=== PATIENT | female | born 1990 | race Caucasian/White ===

== ENCOUNTER 2021-04-09 15:00 | Outpatient (REF) | payer MEDICARE, MEDICAID, SELFPAY ==
[2021-04-09 15:18] LABS: MANUAL DIFF FLAG NO
[2021-04-09 15:31] LABS: Basophils Absolute Auto 0.1 X10*3/uL (0.0-0.2); Basophils Percent Auto 0.5 % (0-2); Eosinophils Absolute Auto 0.1 X10*3/uL (0.0-0.4); Eosinophils Percent Auto 0.9 % (0-4); Hematocrit 41.6 % (37-47); Hemoglobin 13.7 g/dl (12.0-16.0); Imm Gran Abs Auto 0.01 X10*3/uL (0.00-0.03); Imm Gran Pct Auto 0.1 % (0.0-0.4); Lymphocytes Absolute Auto 3.7 X10*3/uL (1.2-4.9); Mean Corpuscular HGB Conc 32.9 g/dl (31.0-35.0); Mean Corpuscular Hemoglobin 31.6 pg (27.0-33.0); Mean Corpuscular Volume 96.1 fL (80-98); Mean Platelet Volume 9.7 fL (9.4-12.3); Monocytes Absolute Auto 0.5 X10*3/uL (0.1-1.2); Monocytes Percent Auto 5.2 % (2-11); Neutrophils Absolute Auto 5.4 X10*3/uL (2.0-8.3); Neutrophils Percent Auto 55.3 % (45-73); Platelet Count 278 X10*3/uL (160-400); Red Blood Count 4.33 X10*6/uL (4.20-5.50); Red Cell Distribution Width 13.6 % (11.0-16.0); White Blood Count 9.8 X10*3/uL (4.8-10.8)
== END 2021-04-09 15:01 | disposition home or self-care (01) ==
LOC: HO.LAB 15:00
PROVIDERS: Visit Provider Psychiatry & Neurology Neurology
DX: G43.009 Migraine without aura, not intractable, without status migrainosus (principal)
CPT/HCPCS: 36415; 85025

== ENCOUNTER 2021-05-03 18:30 | Emergency (ER) | payer MEDICARE, MEDICAID, SELFPAY ==
[2021-05-03 18:43] VITALS: BP 119/83; PULSE 98; RESP 16; TEMP 36.6; O2SAT 98; BMI 28.6
--- NOTE | 2021-05-03 19:06 | ED_ITS ---
HPI - General Adult General Chief complaint: Abdominal Pain Stated complaint: Vomiting Time Seen by Provider: 05/03/21 19:04 Source: patient Limitations: no limitations History of Present Illness HPI narrative: This is a 22-year-old female with a history of gastric sleeve placement in August of 2019, who subsequently had abdominal pain and vomiting and was admitted to [facility]. Workup there did not reveal any complication of the gastric sleeve but there was a possibility raised of autoimmune hepatitis. The patient the last 3 weeks has had pain in her upper abdomen number the last 2 weeks has had vomiting, has not been able to hold down much fluids, hardly any food except for mesh potatoes. The patient has seen her surgeon and she had an upper GI series done a week ago which was normal, per the patient. She is scheduled to have upper endoscopy done in 9 days. Patient reports pain has started her left upper abdomen, and she now feels it in her right upper abdomen as well as in the mid upper abdomen. She describes it as a burning feeling. She has had diarrhea. She has been urinating less but denies any dysuria. She denies lower abdominal pain. She does not use marijuana. Related Data Previous Rx's Medication Instructions Recorded prochlorperazine 25 mg rectal 25 mg [place] Q12H PRN #12 ea 05/03/21 suppository (Compazine) Allergies Allergy/AdvReac Type Severity Reaction Status Date / Time No Known Allergies Allergy Verified 05/03/21 18:43 Review of Systems Review of Systems: Yes all other systems are reviewed and are negative Constitutional: Constitutional: Reports as per HPI and Denies fever(s) Eyes: Eyes: Reports as per HPI and Reports no additional eye complaints ENT: Reports system reviewed and no additional complaints, except as documented, Reports as per HPI, Denies nasal congestion, Denies nasal discharge and Denies sore throat Cardiovascular: Cardiovascular: Reports as per HPI, Denies chest pain and Denies dyspnea Respiratory: Respiratory: Reports as per HPI, Denies cough and Denies dyspnea Gastrointestinal: Gastrointestinal: Reports as per HPI, Reports abdominal pain, Reports diarrhea, Reports nausea and Reports vomiting Genitourinary: Genitourinary: Reports as per HPI, Denies hematuria, Denies urinary frequency and Denies dysuria Musculoskeletal: Musculoskeletal: Reports no additional musculoskeletal complaints and Denies numbness Integumentary/Breasts: Skin/Breast: Reports as per HPI and Denies rash Neurologic: Reports as per HPI, Denies focal weakness, Denies numbness and Denies Sensory deficit (Neuro) Psychiatric: Psychiatric: Reports no additional psychiatric complaints and Reports as per HPI Endocrine: Endocrine: Reports no additional endocrine complaints and Reports as per HPI Hematologic/Lymphatic: Hematologic/Lymphatic: Reports no additional hematologic/lymphatic complaints, Reports as per HPI and Reports other (No peripheral edema) [facility] Past Medical History Medical History (Updated 05/03/21 @ 20:07 by Salty Khan MD) Anxiety Asthma Depression Surgical History H/O gastric sleeve Social History Social History Alcohol intake: never Patient Tobacco Use Status: Never used Tobacco Use of substances other than those prescribed or required for medical reasons: No Advance Directives: No Advance Directives Information Provided: No Patient : No Physical Exam Vital Signs: Vital Signs: Last Vital Signs Temp 98.0 F 05/03/21 19:30 Pulse 94 05/03/21 19:30 Resp 17 05/03/21 19:30 BP 118/79 05/03/21 19:30 Pulse Ox 99 05/03/21 19:30 Body Mass Index 28.6 Const: Other: Patient not ill appearing General: cooperative, no acute distress and alert Orientation/consciousness: patient oriented x3 HENMT: Head: Yes normal to inspection Eyes: General: appearance normal, both eyes and all related structures Eyelids: Yes eyelids normal Conjunctivae: conjunctivae normal Pupils: Equal, round and reactive pupils present Neck: Neck: Yes normal visual inspection and Yes supple Chest: Chest palpation & inspection: normal inspection of the chest Resp: Effort & Inspection: normal respiratory effort Auscultation: clear to auscultation bilaterally Cardio: Rate: regular rate Rhythm: regular rhythm Heart sounds: S1 normal heart sound present, S2 normal heart sound present, no gallops, no murmurs and no rubs GI: Other: Mild tenderness epigastric, no guarding Palpation (GI): Soft to palpation, Tenderness to palpation present (GI) and Other GI palpation findings present (Non-distended) Auscultation: normal bowel sounds Skin: General skin exam: no rashes or lesions noted Neuro: General: patient oriented x3, no focal motor deficits and CN's II-XI intact bilaterally Cranial nerves: Yes Equal, round and reactive pupils present Cognition (Neuro): normal cognition Motor exam (neuro): 5/5 motor strength present throughout Sensory Exam: No Sensory deficit (Neuro) Extrem: General: Yes normal to inspection and Yes no pedal edema Psych: Appearance: grossly normal Affect: normal affect Medical Decision Making MDM Narrative Medical decision making narrative: Patient with reported abdominal pain and vomiting for few weeks. Patient does not have any impressive tenderness on exam, has been undergoing a workup through her surgeon and Gastroenterology, had a recent upper GI that was negative., is due for upper endoscopy in just over a week. CBC and chemistry panel unremarkable. Urinalysis negative for UTI, does show elevated specific gravity and some ketones consistent with mild dehydration. Patient was hydrated with normal saline 1 L IV here. Patient has been on Zofran as well as pantoprazole, and famotidine at home, as well as M [place] or equivalent twice a day. Will add Compazine suppositories to see if that helps improve the nausea vomiting. Patient is safe for outpatient follow- up. Lab Data Result diagrams: 05/03/21 19:25 05/03/21 19:25 Labs: Lab Results 05/03/21 05/03/21 05/03/21 Range/Units 19:25 19:25 19:25 WBC 10.5 (4.8-10.8) X10*3/uL RBC 4.41 (4.20-5.50) X10*6/uL Hgb 14.3 (12.0-16.0) g/dl Hct 42.9 (37-47) % MCV 97.3 (80-98) fL MCH 32.4 (27.0-33.0) pg MCHC 33.3 (31.0-35.0) g/dl RDW 13.0 (11.0-16.0) % Plt Count 249 (160-400) X10*3/uL MPV 9.7 (9.4-12.3) fL Immature Gran % (Auto) 0.3 (0.0-0.4) % Neut % (Auto) 54.1 (45-73) % Lymph % (Auto) 37.2 (20-40) % [place] % (Auto) 6.9 (2-11) % Eos % (Auto) 1.0 (0-4) % Baso % (Auto) 0.5 (0-2) % Lymph # (Auto) 3.9 (1.2-4.9) X10*3/uL [place] # (Auto) 0.7 (0.1-1.2) X10*3/uL Eos # (Auto) 0.1 (0.0-0.4) X10*3/uL Baso # (Auto) 0.1 (0.0-0.2) X10*3/uL Abs Immat Gran (auto) 0.03 (0.00-0.03) X10*3/uL Absolute Neuts (auto) 5.7 (2.0-8.3) X10*3/uL Absolute Nucleated RBC 0.000 (0.0-0.012) X10*3/uL Nucleated RBC % (auto) 0.0 (0.0-0.2) /100WBC Sodium 137 (135-145) mmol/L Potassium 3.8 (3.3-5.1) mmol/L Chloride 105 (96-108) mmol/L Carbon Dioxide 23 (22-29) mmol/L Anion Gap 13 (12-20) BUN 8 L (9-16) mg/dL Creatinine 0.77 (0.5-1.4) mg/dL Estim Creat Clear Calc 108.4 Estimated GFR > 60 Random Glucose 88 (60-115) mg/dL Calcium 9.3 (8.4-10.2) mg/dL Total Bilirubin 0.3 (0.0-1.0) mg/dL AST 16 (5-31) U/L ALT 24 (0-31) U/L Alkaline Phosphatase 106 (39-117) U/L Total Protein 7.5 (6.5-8.0) g/dL Albumin 4.3 (3.5-5.0) g/dL Lipase 30 (8-78) U/L Urine Color YELLOW Urine Appearance CLEAR Urine pH 6.0 (5.0-8.0) Ur Specific [place] >= 1.030 H (1.005-1.025) Urine Protein NEG (NEG-TRACE) MG/DL Urine Glucose (UA) NEG (NEG) MG/DL Urine Ketones 5 (NEG) MG/DL Urine Blood NEG (NEG) Urine Nitrite NEG (NEG) Ur Leukocyte Esterase NEG (NEG) Discharge Plan Discharge Clinical Impression: Vomiting, Chronic upper abdominal pain Patient Disposition: Home, Self-Care Instructions: Acute Nausea and Vomiting (ED) Additional Instructions: Follow-up to have your upper endoscopy done as scheduled. Follow-up with your surgeon and/or bakery helper. Use the Compazine suppository as prescribed in addition to the Zofran dissolvable. Drink clear liquids a little bit at a time. You can also use supplemental protein shakes. Try to eat bland foods as tolerated such as steam trace, mesh potatoes Prescriptions: New prochlorperazine [Compazine] 25 mg suppository 25 mg [place] Q12H PRN (Reason: nausea and vomiting) Qty: 12 RF: 1 Interventions: ED Discharge Assessment Last Done: 05/03/21 20:09 Discharge Date/Time: 05/03/21 20:16
[2021-05-03 19:30] VITALS: BP 118/79; PULSE 94; RESP 17; TEMP 36.7; O2SAT 99
[2021-05-03 19:33] LABS: MANUAL DIFF FLAG NO
[2021-05-03] MEDS: ondansetron HCL 4 MG/2 ML VIAL IVPUSH (19:33)
[2021-05-03] MEDS: 0.9 % Sodium Chloride 1,000 ML 999 ML IV (19:33)
[2021-05-03] MEDS: Famotidine/PF 20 MG/2 ML VIAL IVPUSH (19:33)
[2021-05-03 19:34] LABS: Basophils Absolute Auto 0.1 X10*3/uL (0.0-0.2); Basophils Percent Auto 0.5 % (0-2); Eosinophils Absolute Auto 0.1 X10*3/uL (0.0-0.4); Hematocrit 42.9 % (37-47); Hemoglobin 14.3 g/dl (12.0-16.0); Imm Gran Abs Auto 0.03 X10*3/uL (0.00-0.03); Imm Gran Pct Auto 0.3 % (0.0-0.4); Lymphocytes Absolute Auto 3.9 X10*3/uL (1.2-4.9); Lymphocytes Percent Auto 37.2 % (20-40); Mean Corpuscular HGB Conc 33.3 g/dl (31.0-35.0); Mean Corpuscular Hemoglobin 32.4 pg (27.0-33.0); Mean Corpuscular Volume 97.3 fL (80-98); Mean Platelet Volume 9.7 fL (9.4-12.3); Monocytes Absolute Auto 0.7 X10*3/uL (0.1-1.2); Monocytes Percent Auto 6.9 % (2-11); Neutrophils Absolute Auto 5.7 X10*3/uL (2.0-8.3); Neutrophils Percent Auto 54.1 % (45-73); Platelet Count 249 X10*3/uL (160-400); Red Blood Count 4.41 X10*6/uL (4.20-5.50); White Blood Count 10.5 X10*3/uL (4.8-10.8)
[2021-05-03 19:35] LABS: Appearance Urine CLEAR; Color Urine YELLOW; Glucose Urine UA NEG (NEG); Leukocyte Esterase Urine NEG (NEG); Nitrite Urine NEG (NEG); Specific Gravity - Urine >= 1.030 (1.005-1.025); Urine Blood NEG (NEG); Urine Ketones 5 MG/DL (NEG); Urine Protein NEG (NEG-TRACE)
--- NOTE | 2021-05-03 19:35 | PC.NURSE ---
iv inserted, labs drawn, urine obtained, vss, pt medicated per order, will continue to monitor
[2021-05-03 19:48] LABS: Alanine Aminotransferase 24 U/L (0-31); Albumin Level 4.3 g/dL (3.5-5.0); Alkaline Phosphatase 106 U/L (39-117); Anion Gap 13 (12-20); Aspartate Amino Transferase 16 U/L (5-31); Bilirubin Total 0.3 mg/dL (0.0-1.0); Blood Urea Nitrogen 8 mg/dL (9-16); Calcium 9.3 mg/dL (8.4-10.2); Carbon Dioxide 23 mmol/L (22-29); Chloride 105 mmol/L (96-108); Creatinine Clr Calc Pharmacy 108.4; Estimated Glomerular Filt Rate > 60; Glucose Random 88 mg/dL (60-115); Lipase 30 U/L (8-78); Potassium 3.8 mmol/L (3.3-5.1); Sodium 137 mmol/L (135-145); Total Protein 7.5 g/dL (6.5-8.0)
== END 2021-05-03 20:16 | disposition home or self-care (01) ==
PROVIDERS: Emergency Provider Emergency Medicine; PCP Internal Medicine
DX: R10.10 Upper abdominal pain, unspecified (principal); R11.2 Nausea with vomiting, unspecified; Z98.84 Bariatric surgery status; Z79.899 Other long term (current) drug therapy
CPT/HCPCS: 36415; 80053; 81003; 83690; 85025; 96361; 96374; 96375; 99284; J2405

== ENCOUNTER 2021-05-13 02:08 | Emergency (ER) | payer MEDICARE, MEDICAID, SELFPAY ==
[2021-05-13 02:09] VITALS: BP 151/89; PULSE 110; RESP 18; TEMP 36.7; O2SAT 99; BMI 28.8
[2021-05-13 03:15] LABS: MANUAL DIFF FLAG NO
[2021-05-13 03:16] LABS: Basophils Percent Auto 0.5 % (0-2); Eosinophils Absolute Auto 0.1 X10*3/uL (0.0-0.4); Eosinophils Percent Auto 1.1 % (0-4); Hematocrit 39.4 % (37.0-47.0); Hemoglobin 13.4 g/dl (12.0-16.0); Imm Gran Abs Auto 0.01 X10*3/uL (0.00-0.03); Imm Gran Pct Auto 0.1 % (0.0-0.4); Lymphocytes Absolute Auto 3.5 X10*3/uL (1.2-4.9); Lymphocytes Percent Auto 46.3 % (20-40); Mean Corpuscular Hemoglobin 32.6 pg (27.0-33.0); Mean Corpuscular Volume 95.9 fL (80.0-98.0); Mean Platelet Volume 9.8 fL (9.4-12.3); Monocytes Absolute Auto 0.5 X10*3/uL (0.1-1.2); Monocytes Percent Auto 6.9 % (2-11); Neutrophils Absolute Auto 3.41 x10*3/uL (2.0-8.3); Neutrophils Percent Auto 45.1 % (45-73); Platelet Count 203 X10*3/uL (160-400); Red Blood Count 4.11 X10*6/uL (4.20-5.50); Red Cell Distribution Width 12.7 % (11.0-16.0); White Blood Count 7.6 X10*3/uL (4.8-10.8)
[2021-05-13 03:19] LABS: UPreg QC Valid YES; Urine Pregnancy NEGATIVE (NEGATIVE)
--- NOTE | 2021-05-13 03:26 | PC.NURSE ---
Per Andrea Cohen RN who was at bedside to line/lab/medicate, pt requesting pt advocate d/t her frustration with frequency of her visits. Ning Hercules RN
[2021-05-13] MEDS: 0.9 % Sodium Chloride 2,000 ML 999 ML IV (03:27)
[2021-05-13 03:29] LABS: Appearance Urine CLOUDY; Color Urine YELLOW; Glucose Urine UA NEG (NEG); Leukocyte Esterase Urine NEG (NEG); Nitrite Urine NEG (NEG); RBC Urine 0-2 /HPF (0); UACC Culture Trigger NO; Urine Blood 2+ (NEG); Urine Ketones NEG (NEG); Urine Protein NEG (NEG-TRACE); WBC Urine 0 /HPF (0-4)
[2021-05-13 03:30] LABS: Amorphous Sediment Urine 4+ /LPF; Mucus Urine 2+ /LPF; Squamous Epithelial Cell Urine TRACE /LPF
[2021-05-13 03:36] LABS: Alanine Aminotransferase 13 U/L (0-31); Alkaline Phosphatase 81 U/L (39-117); Anion Gap 12 (12-20); Aspartate Amino Transferase 11 U/L (5-31); Bilirubin Total 0.5 mg/dL (0.0-1.0); Blood Urea Nitrogen 10 mg/dL (9-16); Carbon Dioxide 22 mmol/L (22-29); Chloride 110 mmol/L (96-108); Creatinine Clr Calc Pharmacy 107.3; Estimated Glomerular Filt Rate > 60; Glucose Random 94 mg/dL (60-115); Lipase 34 U/L (8-78); Potassium 3.6 mmol/L (3.3-5.1); Sodium 140 mmol/L (135-145); Total Protein 6.7 g/dL (6.5-8.0)
--- NOTE | 2021-05-13 04:14 | PC.NURSE ---
Andrea RN made this RN aware that pt is requesting to leave AMA, reports Dr Guzmán is aware. This RN performs closed loop communication and discusses pt's request to leave AMA with Dr Guzmán who states she will go to pt's bedside to review AMA paperwork at her soonest availability. This RN to bedside, pt aaox4, resting on stretcher in NAD, breathing with ease on RA with equal chest rise and fall bilaterally, speaking in complete, clear sentences. This RN asks pt what services she would like to be provided at this time to encourage pt to receive w/u and to avoid leaving AMA. Pt states I'm really frustrated with what's going on at this point because my food intolerance is inconsistent as sometimes I can eat mashed potatoes and other times I can't. I just want help with this but there's nothing else that can be done here. My ride is on his way and I have zofran at home I'll take for the nausea. This RN explains to pt that Dr Guzmán has ordered an EKG to ensure it is safe to medicate with zofran, and if so, pt can be provided with IV antiemetic. Pt expresses understanding, declines EKG and VS at this time stating I just need to pee and I want to go to the bathroom but I didn't know how to disconnect this [IV fluids]. Pt asks Do you know how long it will be until the doctor is able to come and go over that paperwork with me because I just want to go home? This RN explains to pt that Dr uGzmán will come to bedside at her soonest availability. Pt expresses understanding. This RN removes pt's PIV under suspicion that pt may elope from dept prior to AMA paperwork as pt voices, once again, that her ride is on his way. Pt's IVF discontinued, PIV removed, and pt ambulatory with steady, independent gait to bathroom across the wu from pt's room.
--- NOTE | 2021-05-13 04:33 | ED.ABDPAIN ---
HPI - Abdominal Pain General Chief Complaint: Abdominal Pain Stated Complaint: Abd pain N/V Time Seen by Provider: 05/13/21 02:15 Source: patient Mode of arrival: ambulatory History of Present Illness HPI narrative: 30-year-old female who is status post gastric sleeve in September 2019 presents with persistent nausea/vomiting/diarrhea as well as associated epigastric pain for 1 month. Patient states that she has been evaluated by her bariatric surgeons as well as Gastroenterology who completed an upper endoscopy yesterday. She has had no associated fever, chills but does endorse nonbloody diarrhea and otherwise denies urinary symptoms. Related Data Previous Rx's Medication Instructions Recorded prochlorperazine 25 mg rectal 25 mg [place] Q12H PRN #12 ea 05/03/21 suppository (Compazine) Allergies Allergy/AdvReac Type Severity Reaction Status Date / Time No Known Allergies Allergy Verified 05/03/21 18:43 Review of Systems Review of Systems Pertinent positives and negatives as stated in HPI and 10 point review of symptoms is otherwise negative. Physical Exam Vital Signs: Vital Signs: Last Vital Signs Temp 98.1 F 05/13/21 02:09 Pulse 104 H 05/13/21 04:40 Resp 16 05/13/21 04:40 BP 114/85 05/13/21 04:40 Pulse Ox 99 05/13/21 04:40 Body Mass Index 28.8 VITAL SIGNS: Reviewed. GENERAL: Well developed, well nourished, in no acute distress. HEAD: Normocephalic/atraumatic EYES: PERRLA, EOMI OROPHARYNX: no oral lesions noted, posterior pharynx clear, moist mucosa NECK: Supple, no adenopathy LUNGS: Normal breath sounds. No adventitious sounds or accessory muscle use. SpO2<99> CARDIOVASCULAR: Regular rate and rhythm without noted murmurs ABDOMEN: Soft, mild tenderness to palpation of the epigastrium without rebound, non-distended with bowel sounds. SKIN: Inspection of the skin reveals no rashes NEUROLOGIC: Alert and oriented x 4. Course Course Course Narrative: 30-year-old female with history and clinical presentation consistent with chronic nausea, vomiting, diarrhea. Patient has received most of her care through the [facility] to include recent evaluation at [facility] emergency room and patient states that ?nothing was done except for lab work?. Review of all lab work is negative for any acute findings to better elucidate patient's presenting symptoms. She was provided with a GI cocktail and on re-evaluation reports improvement in her symptoms and she has tolerated oral intake. She was provided with additional sucralfate and will be discharged with a prescription for continued juice and instructed to follow-up with her mink farmer and bariatric surgeon. MDM - Abdominal Pain Lab Data Result diagrams: 05/13/21 03:08 05/13/21 03:08 Labs: Lab Results 05/13/21 05/13/21 05/13/21 Range/Units 03:08 03:08 03:10 WBC 7.6 (4.8-10.8) X10*3/uL RBC 4.11 L (4.20-5.50) X10*6/uL Hgb 13.4 (12.0-16.0) g/dl Hct 39.4 (37.0-47.0) % MCV 95.9 (80.0-98.0) fL MCH 32.6 (27.0-33.0) pg MCHC 34.0 (31.0-35.0) g/dl RDW 12.7 (11.0-16.0) % Plt Count 203 (160-400) X10*3/uL MPV 9.8 (9.4-12.3) fL Immature Gran % (Auto) 0.1 (0.0-0.4) % Neut % (Auto) 45.1 (45-73) % Lymph % (Auto) 46.3 H (20-40) % [place] % (Auto) 6.9 (2-11) % Eos % (Auto) 1.1 (0-4) % Baso % (Auto) 0.5 (0-2) % Lymph # (Auto) 3.5 (1.2-4.9) X10*3/uL [place] # (Auto) 0.5 (0.1-1.2) X10*3/uL Eos # (Auto) 0.1 (0.0-0.4) X10*3/uL Baso # (Auto) 0.0 (0.0-0.2) X10*3/uL Abs Immat Gran (auto) 0.01 (0.00-0.03) X10*3/uL Absolute Neuts (auto) 3.41 (2.0-8.3) x10*3/uL Absolute Nucleated RBC 0.000 (0.0-0.012) X10*3/uL Nucleated RBC % (auto) 0.0 (0.0-0.2) /100WBC Sodium 140 (135-145) mmol/L Potassium 3.6 (3.3-5.1) mmol/L Chloride 110 H (96-108) mmol/L Carbon Dioxide 22 (22-29) mmol/L Anion Gap 12 (12-20) BUN 10 (9-16) mg/dL Creatinine 0.78 (0.5-1.4) mg/dL Estim Creat Clear Calc 107.3 Estimated GFR > 60 Random Glucose 94 (60-115) mg/dL Calcium 9.0 (8.4-10.2) mg/dL Total Bilirubin 0.5 (0.0-1.0) mg/dL AST 11 (5-31) U/L ALT 13 (0-31) U/L Alkaline Phosphatase 81 D (39-117) U/L Total Protein 6.7 (6.5-8.0) g/dL Albumin 4.0 (3.5-5.0) g/dL Lipase 34 (8-78) U/L Urine Color YELLOW Urine Appearance CLOUDY Urine pH 7.0 (5.0-8.0) Ur Specific [place] 1.010 (1.005-1.025) Urine Protein NEG (NEG-TRACE) MG/DL Urine Glucose (UA) NEG (NEG) MG/DL Urine Ketones NEG (NEG) MG/DL Urine Blood 2+ H (NEG) Urine Nitrite NEG (NEG) Ur Leukocyte Esterase NEG (NEG) Urine RBC 0-2 (0) /HPF Urine WBC 0 (0-4) /HPF Ur Squamous Epith Cells TRACE /LPF Amorphous Sediment 4+ /LPF Urine Bacteria NONE /LPF Granular Casts 5-9 /LPF Urine Mucus 2+ /LPF Urine Test (NEGATIVE) 05/13/21 Range/Units 03:10 WBC (4.8-10.8) X10*3/uL RBC (4.20-5.50) X10*6/uL Hgb (12.0-16.0) g/dl Hct (37.0-47.0) % MCV (80.0-98.0) fL MCH (27.0-33.0) pg MCHC (31.0-35.0) g/dl RDW (11.0-16.0) % Plt Count (160-400) X10*3/uL MPV (9.4-12.3) fL Immature Gran % (Auto) (0.0-0.4) % Neut % (Auto) (45-73) % Lymph % (Auto) (20-40) % [place] % (Auto) (2-11) % Eos % (Auto) (0-4) % Baso % (Auto) (0-2) % Lymph # (Auto) (1.2-4.9) X10*3/uL [place] # (Auto) (0.1-1.2) X10*3/uL Eos # (Auto) (0.0-0.4) X10*3/uL Baso # (Auto) (0.0-0.2) X10*3/uL Abs Immat Gran (auto) (0.00-0.03) X10*3/uL Absolute Neuts (auto) (2.0-8.3) x10*3/uL Absolute Nucleated RBC (0.0-0.012) X10*3/uL Nucleated RBC % (auto) (0.0-0.2) /100WBC Sodium (135-145) mmol/L Potassium (3.3-5.1) mmol/L Chloride (96-108) mmol/L Carbon Dioxide (22-29) mmol/L Anion Gap (12-20) BUN (9-16) mg/dL Creatinine (0.5-1.4) mg/dL Estim Creat Clear Calc Estimated GFR Random Glucose (60-115) mg/dL Calcium (8.4-10.2) mg/dL Total Bilirubin (0.0-1.0) mg/dL AST (5-31) U/L ALT (0-31) U/L Alkaline Phosphatase (39-117) U/L Total Protein (6.5-8.0) g/dL Albumin (3.5-5.0) g/dL Lipase (8-78) U/L Urine Color Urine Appearance Urine pH (5.0-8.0) Ur Specific [place] (1.005-1.025) Urine Protein (NEG-TRACE) MG/DL Urine Glucose (UA) (NEG) MG/DL Urine Ketones (NEG) MG/DL Urine Blood (NEG) Urine Nitrite (NEG) Ur Leukocyte Esterase (NEG) Urine RBC (0) /HPF Urine WBC (0-4) /HPF Ur Squamous Epith Cells /LPF Amorphous Sediment /LPF Urine Bacteria /LPF Granular Casts /LPF Urine Mucus /LPF Urine Test NEGATIVE (NEGATIVE) Discharge Plan Discharge Clinical Impression: Epigastric abdominal pain, Nausea & vomiting Patient Disposition: Home, Self-Care Instructions: Acute Nausea and Vomiting (ED), Epigastric Pain (ED) Additional Instructions: 1. Resume all home medications as prescribed. 2. Do not take any non steroid all anti-inflammatory medications such as ibuprofen, Motrin, Aleve, etc. 3. Follow-up with your mink farmer and bariatric surgeon in the next 1-2 days for re-evaluation and further outpatient management. 4. You have been provided with medication that should help soothe your stomach Return to the ER for acute worsening of symptoms. Prescriptions: No Action prochlorperazine [Compazine] 25 mg suppository 25 mg [place] Q12H PRN (Reason: nausea and vomiting) Qty: 12 RF: 1 PMFSH Past Medical History Source: nursing notes reviewed Medical History Anxiety Asthma Depression Surgical History H/O gastric sleeve Social History Social History Alcohol intake: never Patient Tobacco Use Status: Never used Tobacco Advance Directives: No
[2021-05-13 04:40] VITALS: BP 114/85; PULSE 104; RESP 16; O2SAT 99
[2021-05-13] MEDS: Lidocaine HCl Viscous 2 % 15 ML SOLUTION 10 ML MUCOUS MEM (04:41)
[2021-05-13] MEDS: Magnesium Hydrox/Alum Hydrox 30 ML ORAL.SUSP PO (04:41)
--- NOTE | 2021-05-13 04:43 | PC.NURSE ---
Dr Guzmán requested this RN to bedside to offer pt a GI cocktail and plan for DC after GI cocktail. Pt agreeable, medicated per orders. Pt tolerating meds at this time.
--- NOTE | 2021-05-13 05:13 | PC.NURSE ---
Pt tolerating PO meds without vomiting, reports pain is the same as prior but nausea has improved. Dr Guzmán made aware.
[2021-05-13] MEDS: Sucralfate Oral Suspension 1 GM/10 ML ORAL.SUSP PO (05:21)
== END 2021-05-13 05:32 | disposition home or self-care (01) ==
PROVIDERS: Emergency Provider Student in an Organized Health Care Education/Training Program
DX: R10.13 Epigastric pain (principal); R11.2 Nausea with vomiting, unspecified; Z98.84 Bariatric surgery status; Z79.899 Other long term (current) drug therapy
CPT/HCPCS: 36415; 80053; 81001; 81025; 83690; 85025; 96360; 96361; 99284

== ENCOUNTER 2021-10-31 07:31 | Emergency (ER) | payer MEDICARE, MEDICAID, SELFPAY ==
--- NOTE | ~2021-10-31 | US_ITS ---
EXAMINATION: US PELVIS CLINICAL INFORMATION: Adnexal pain, rule out torsion. COMPARISON: CT scan of the abdomen and pelvis performed today as well as on 10/28/2018. TECHNIQUE: Ultrasound of the pelvis is performed using both transabdominal and transvaginal transducers along with Doppler. Transvaginal imaging is performed due to inadequate visualization transabdominally. FINDINGS: Uterus: Anteverted/anteflexed measuring 7.7 x 6.5 x 5.9 cm. An intramural/subserosal fibroid in the right anterior fundus/body measures approximately 5.3 x 4.6 x 4.8 cm. The endometrial stripe demonstrates homogeneous echotexture and measures up to 1.1 cm in the fundus without focal abnormality. The cervix is closed without abnormality. Right ovary: 2.4 x 1.8 x 2.2 cm with a volume of 5 mL. Doppler showed no abnormal vascular flow. Left ovary: Not confidently identified. No overt adnexal abnormality. Urinary bladder: Mildly distended without focal abnormality. US/US pelvic ovarian doppler IMPRESSION: 1. Fibroid uterus as detailed above correlating with CT findings. 2. No significant right ovarian abnormality. The left ovary was not visualized sonographically, but showed no significant abnormality on the CT scan from today. No adnexal abnormality.
--- NOTE | ~2021-10-31 | US_ITS ---
EXAMINATION: US PELVIS CLINICAL INFORMATION: Adnexal pain, rule out torsion. COMPARISON: CT scan of the abdomen and pelvis performed today as well as on 10/28/2018. TECHNIQUE: Ultrasound of the pelvis is performed using both transabdominal and transvaginal transducers along with Doppler. Transvaginal imaging is performed due to inadequate visualization transabdominally. FINDINGS: Uterus: Anteverted/anteflexed measuring 7.7 x 6.5 x 5.9 cm. An intramural/subserosal fibroid in the right anterior fundus/body measures approximately 5.3 x 4.6 x 4.8 cm. The endometrial stripe demonstrates homogeneous echotexture and measures up to 1.1 cm in the fundus without focal abnormality. The cervix is closed without abnormality. Right ovary: 2.4 x 1.8 x 2.2 cm with a volume of 5 mL. Doppler showed no abnormal vascular flow. Left ovary: Not confidently identified. No overt adnexal abnormality. Urinary bladder: Mildly distended without focal abnormality. US/US pelvic and transvaginal IMPRESSION: 1. Fibroid uterus as detailed above correlating with CT findings. 2. No significant right ovarian abnormality. The left ovary was not visualized sonographically, but showed no significant abnormality on the CT scan from today. No adnexal abnormality.
--- NOTE | ~2021-10-31 | CT_ITS ---
EXAMINATION: CT ABDOMEN AND PELVIS WITH CONTRAST CLINICAL INFORMATION: Right lower quadrant and CVA pain. COMPARISON: None TECHNIQUE: Multidetector volumetric images were obtained from the superior aspect of the liver through the pubic symphysis following administration 85 mL of Omnipaque 350 intravenous contrast. Sagittal and coronal reformatted images were obtained on the technologist's workstation. Oral contrast: No This CT examination was performed using dose optimization techniques as appropriate, variously including the following: *Automated exposure control *Adjustment of mA and/or kV according to patient size (this includes techniques or standardized protocols for targeted exams where dose is matched to indication/reason for exam; i.e. extremities or head) *Use of iterative reconstruction technique DLP: 551 mGy-cm FINDINGS: LUNG BASES: The visualized lung bases are unremarkable. LIVER, GALLBLADDER, AND BILIARY TREE: No hepatic abnormality. Status post cholecystectomy. PANCREAS: Unremarkable. SPLEEN: Unremarkable. ADRENAL GLANDS: Unremarkable. KIDNEYS AND URETERS: The kidneys are normal in size, shape, and attenuation. No hydronephrosis, hydroureter, or calculi seen. No perinephric stranding. BLADDER: Unremarkable. GASTROINTESTINAL TRACT: Gastric posterior surgical changes without abnormality. The small bowel and appendix are unremarkable. The colon and rectum are unremarkable. ABDOMINAL WALL: No significant hernia is appreciated. LYMPH NODES: No lymphadenopathy. VASCULAR: Unremarkable. PELVIC VISCERA: Anteverted/anteflexed uterus with intramural fibroid in the anterior fundus/body measuring approximately 5.6 x 5.2 x 4.4 cm (image 74, series 3; image 61, series 7). No adnexal abnormality. OSSEOUS STRUCTURES: Unremarkable. CT/CT abdomen pelvis w con IMPRESSION: 1. No acute intra-abdominal/pelvic abnormality. 2. Uterine fibroid as detailed above.
[2021-10-31 07:40] VITALS: BP 125/71; PULSE 94; RESP 16; TEMP 36.2; O2SAT 100; BMI 28.1
[2021-10-31 07:53] LABS: MANUAL DIFF FLAG NO
[2021-10-31 07:55] LABS: Basophils Percent Auto 0.5 % (0-2); Eosinophils Absolute Auto 0.1 X10*3/uL (0.0-0.4); Eosinophils Percent Auto 0.6 % (0-4); Hematocrit 41.4 % (37.0-47.0); Hemoglobin 13.7 g/dl (12.0-16.0); Imm Gran Abs Auto 0.03 X10*3/uL (0.00-0.03); Imm Gran Pct Auto 0.3 % (0.0-0.4); Lymphocytes Absolute Auto 2.7 X10*3/uL (1.2-4.9); Lymphocytes Percent Auto 30.7 % (20-40); Mean Corpuscular HGB Conc 33.1 g/dl (31.0-35.0); Mean Corpuscular Hemoglobin 31.5 pg (27.0-33.0); Mean Corpuscular Volume 95.2 fL (80.0-98.0); Mean Platelet Volume 9.4 fL (9.4-12.3); Monocytes Absolute Auto 0.4 X10*3/uL (0.1-1.2); Monocytes Percent Auto 4.6 % (2-11); Neutrophils Absolute Auto 5.5 x10*3/uL (2.0-8.3); Neutrophils Percent Auto 63.3 % (45-73); Platelet Count 258 X10*3/uL (160-400); Red Blood Count 4.35 X10*6/uL (4.20-5.50); Red Cell Distribution Width 13.2 % (11.0-16.0); White Blood Count 8.7 X10*3/uL (4.8-10.8)
[2021-10-31 08:10] LABS: Alanine Aminotransferase 12 U/L (0-31); Albumin Level 4.2 g/dL (3.5-5.0); Alkaline Phosphatase 88 U/L (39-117); Anion Gap 9 (12-20); Aspartate Amino Transferase 11 U/L (5-31); Bilirubin Total 0.4 mg/dL (0.0-1.0); Blood Urea Nitrogen 8 mg/dL (9-16); Calcium 9.5 mg/dL (8.4-10.2); Carbon Dioxide 27 mmol/L (22-29); Chloride 109 mmol/L (96-108); Creatinine Clr Calc Pharmacy 102.6; Estimated Glomerular Filt Rate > 60; Glucose Random 78 mg/dL (60-115); Potassium 3.8 mmol/L (3.3-5.1); Sodium 141 mmol/L (135-145); Total Protein 7.3 g/dL (6.5-8.0)
--- NOTE | 2021-10-31 08:37 | ED.ABDPAIN ---
HPI - Abdominal Pain General Chief Complaint: Abdominal Pain Stated Complaint: Bladder discomfort/Vomiting Time Seen by Provider: 10/31/21 08:36 Source: patient Mode of arrival: ambulatory Limitations: no limitations History of Present Illness HPI narrative: 31-year-old female presents with abdominal pain in her right lower abdomen. Also reports the feeling of constant urgency to urinate, but reduced urine output. Symptoms have been ongoing for months, but worsening in the last few days. No dysuria, no fevers. Patient feels cramping in her right flank as well. Patient has had the symptoms for 1 month. The pain in her lower abdomen is worsening, is a 7/10. No vaginal bleeding, abnormal vaginal discharge Patient went to [facility] Emergency Room, but the wait was too long so she came here. She gets all her care at [facility]. States 4 days ago her primary ordered urine and labs which were both negative. Her stage setting painter apprentice is at [facility], and counseled her to go to the emergency room. Her last menstrual period was October 17, she is due November 11. Her OB tested her for STDs lastr week, and they were negative last week. She has no concerns for STDs. States that her abdominal pain gets worse prior to her period and is cyclical in nature correlating with her menses. She has heavy bleeding with her menses painful menses, her periods are debilitating due to fibroid. Patient is scheduled for uterine fibroid surgery 11/28/2021 at [facility]. She is status post gastric sleeve surgery that was done in [facility] by Dr. Saleem, in August 2019. Patient had 2 visits to our emergency room in the fall of 2020, but these were both for epigastric pain and today this pain feels different, is in her lower abdomen. Related Data Previous Rx's Medication Instructions Recorded prochlorperazine 25 mg rectal 25 mg SC Q12H PRN #12 ea 05/03/21 suppository (Compazine) sucralfate 100 mg/mL oral 10 ml PO BID #420 ml 05/13/21 suspension (Carafate) cephalexin 500 mg capsule 500 mg PO QID 5 Days #20 cap 10/31/21 oxycodone 5 mg tablet 5 mg PO Q6H PRN #20 tab 10/31/21 Allergies Allergy/AdvReac Type Severity Reaction Status Date / Time No Known Allergies Allergy Verified 05/03/21 18:43 Review of Systems Constitutional: Denies body ache(s), Denies chills, Denies fatigue, Denies fever(s), Denies headache(s), Denies malaise and Denies weakness Eyes: Denies diplopia Denies vertigo, Denies dizziness, Denies otalgia, Denies headache(s), Denies mouth pain, Denies post nasal drip, Denies sinus pain and Denies sore throat Cardiovascular: Denies chest pain, Denies syncope, Denies leg edema, Denies lightheadedness, Denies Loss of Consciousness, Denies palpitations and Denies dyspnea Respiratory: Denies chest congestion, Denies cough and Denies dyspnea Gastrointestinal: Reports abdominal pain, Denies hematochezia, Denies constipation, Denies diarrhea, Reports nausea and Denies vomiting Genitourinary: Reports urinary frequency, Reports difficulty voiding, Reports dysmenorrhea, Denies dysuria, Reports pelvic pain, Reports flank pain, Denies urinary incontinence, Reports urinary hesitancy, Denies urinary urgency, Denies vaginal discharge and Denies vaginal odor Musculoskeletal: Reports no additional musculoskeletal complaints Denies confusion, Denies vertigo, Denies dizziness, Denies syncope, Denies headache(s) and Denies weakness Psychiatric: Denies anxiety, Denies confusion and Denies depression Endocrine: Denies fatigue and Denies palpitations PMFSH Past Medical History Medical History Anxiety Asthma Depression Surgical History H/O gastric sleeve Social History Social History Alcohol intake: never Patient Tobacco Use Status: Never used Tobacco Advance Directives: No Advance Directives Information Provided: No Patient : No Physical Exam ED Vital Signs: Vital Signs - 24 hr 10/31/21 07:40 10/31/21 09:38 Temperature 97.2 F Pulse Rate 94 Respiratory Rate 16 18 Blood Pressure 125/71 Pulse Oximetry 100 BMI result Body Mass Index 28.1 Const General: comfortable, alert and awake; No confusion Nutritional Appearance: obese Orientation/consciousness: patient oriented x3 and No confusion Limitations: no limitations HENMT Head: Yes normal to inspection, Yes normocephalic and Yes atraumatic Ears: hearing grossly normal bilaterally General nose exam: Normal external nose present Face and sinus: Yes normal facial exam Mouth: Normal oral and palatal mucosa present Throat: Yes posterior oropharynx normal Eyes Pupils: Equal, round and reactive pupils present EOM: EOMs intact bilaterally Neck Neck: Yes normal visual inspection, Yes full ROM, Yes no lymphadenopathy, Yes no meningeal signs, Yes trachea midline and Yes supple Resp Effort & Inspection: normal respiratory effort and able to speak in complete sentences Auscultation: clear to auscultation bilaterally, no crackles, no rales, no rhonchi and no wheezes Cardio Rate: regular rate Rhythm: regular rhythm Heart sounds: S1 normal heart sound present and S2 normal heart sound present GI Inspection: Yes obesity and Yes striae Palpation (GI): Soft to palpation, not firm, Tenderness to palpation present (GI) in the RLQ, Guarding due to palpation present (GI) in the RLQ and not rigid Percussion: Yes normal to percussion Auscultation: normal bowel sounds General: Yes CVA tenderness on the right External Female Exam: normal external appearance Speculum Exam - Vagina: normal appearance of the vagina Speculum Exam - Cervix: normal appearance of the cervix, normal palpation and nontender Bimanual exam- vagina & uterus: normal palpation and No Cervical tenderness present Bimanual Exam- Adnexa, other: no masses and tender on the right Back/Spine/Pelvis Back: CVA tenderness Skin General skin exam: no rashes or lesions noted Neuro General: patient oriented x3, no meningeal signs and No confusion Cranial nerves: Yes Equal, round and reactive pupils present Extrem General: Yes normal to inspection, Yes full ROM and Yes capillary refill normal Psych Appearance: grossly normal Mental Status: mental status grossly normal Speech and movement: Normal speech and movement present Affect: Anxious affect present Course Course Course Narrative: 31-year-old female with a history of gastric sleeve surgery and uterine fibroids presents with lower abdominal pain that she has had for months that is worsening today. Pain 7/10 today. On exam, patient has stable vitals, has right CVA tenderness, right lower quadrant tenderness and guarding, and right adnexal pain on pelvic exam. vaginal discharge is normal. Deferred STDs swabs because she just had them done last week and has no concerns. Will get urine, labs, CT abdomen due to gastric bypass surgery and possible complications, ultrasound to investigate right adnexal tenderness. Gave morphine, Zofran, fluids. Reevaluation(s) Reevaluation #1: Patient has normal labs, has trace leukocyte esterase in her urine, is not . No adnexal abnormality, patient does have fibroid. Patient has no ovarian torsion, no necrotic fibroid, CT scan is normal. Pain was controlled with morphine, on re-examination, pain is returning. Will prescribe pain medication, will treat mild UTI, will have patient follow-up with her OBGYN. Return precautions given, all patient's questions were answered. US/US pelvic and transvaginal IMPRESSION: 1. Fibroid uterus as detailed above correlating with CT findings. 2. No significant right ovarian abnormality. The left ovary was not visualized sonographically, but showed no significant abnormality on the CT scan from today. No adnexal abnormality. CT/CT abdomen pelvis w con IMPRESSION: 1. No acute intra-abdominal/pelvic abnormality. 2. Uterine fibroid as detailed above. MDM - Abdominal Pain Lab Data Result diagrams: 10/31/21 07:49 10/31/21 07:49 Labs: Lab Results 10/31/21 10/31/21 10/31/21 Range/Units 07:49 07:49 08:30 WBC 8.7 (4.8-10.8) X10*3/uL RBC 4.35 (4.20-5.50) X10*6/uL Hgb 13.7 (12.0-16.0) g/dl Hct 41.4 (37.0-47.0) % MCV 95.2 (80.0-98.0) fL MCH 31.5 (27.0-33.0) pg MCHC 33.1 (31.0-35.0) g/dl RDW 13.2 (11.0-16.0) % Plt Count 258 D (160-400) X10*3/uL MPV 9.4 (9.4-12.3) fL Immature Gran % (Auto) 0.3 (0.0-0.4) % Neut % (Auto) 63.3 (45-73) % Lymph % (Auto) 30.7 (20-40) % [place] % (Auto) 4.6 (2-11) % Eos % (Auto) 0.6 (0-4) % Baso % (Auto) 0.5 (0-2) % Lymph # (Auto) 2.7 (1.2-4.9) X10*3/uL [place] # (Auto) 0.4 (0.1-1.2) X10*3/uL Eos # (Auto) 0.1 (0.0-0.4) X10*3/uL Baso # (Auto) 0.0 (0.0-0.2) X10*3/uL Abs Immat Gran (auto) 0.03 (0.00-0.03) X10*3/uL Absolute Neuts (auto) 5.5 (2.0-8.3) x10*3/uL Absolute Nucleated RBC 0.000 (0.0-0.012) X10*3/uL Nucleated RBC % (auto) 0.0 (0.0-0.2) /100WBC Sodium 141 (135-145) mmol/L Potassium 3.8 (3.3-5.1) mmol/L Chloride 109 H (96-108) mmol/L Carbon Dioxide 27 (22-29) mmol/L Anion Gap 9 L (12-20) BUN 8 L (9-16) mg/dL Creatinine 0.77 (0.5-1.4) mg/dL Estim Creat Clear Calc 102.6 Estimated GFR > 60 Random Glucose 78 (60-115) mg/dL Calcium 9.5 (8.4-10.2) mg/dL Total Bilirubin 0.4 (0.0-1.0) mg/dL AST 11 (5-31) U/L ALT 12 (0-31) U/L Alkaline Phosphatase 88 (39-117) U/L Total Protein 7.3 (6.5-8.0) g/dL Albumin 4.2 (3.5-5.0) g/dL Urine Color YELLOW Urine Appearance HAZY Urine pH 6.0 (5.0-8.0) Ur Specific [place] >= 1.030 H (1.005-1.025) Urine Protein NEG (NEG-TRACE) MG/DL Urine Glucose (UA) NEG (NEG) MG/DL Urine Ketones NEG (NEG) MG/DL Urine Blood NEG (NEG) Urine Nitrite NEG (NEG) Ur Leukocyte Esterase TRACE H (NEG) Urine RBC 1-4 (0) /HPF Urine WBC 1-4 (0-4) /HPF Ur Squamous Epith Cells 3+ /LPF Calcium Oxalate Crystal 2+ /LPF Urine Bacteria 1+ /LPF Urine Mucus 3+ /LPF Urine Test (NEGATIVE) 10/31/21 Range/Units 08:30 WBC (4.8-10.8) X10*3/uL RBC (4.20-5.50) X10*6/uL Hgb (12.0-16.0) g/dl Hct (37.0-47.0) % MCV (80.0-98.0) fL MCH (27.0-33.0) pg MCHC (31.0-35.0) g/dl RDW (11.0-16.0) % Plt Count (160-400) X10*3/uL MPV (9.4-12.3) fL Immature Gran % (Auto) (0.0-0.4) % Neut % (Auto) (45-73) % Lymph % (Auto) (20-40) % [place] % (Auto) (2-11) % Eos % (Auto) (0-4) % Baso % (Auto) (0-2) % Lymph # (Auto) (1.2-4.9) X10*3/uL [place] # (Auto) (0.1-1.2) X10*3/uL Eos # (Auto) (0.0-0.4) X10*3/uL Baso # (Auto) (0.0-0.2) X10*3/uL Abs Immat Gran (auto) (0.00-0.03) X10*3/uL Absolute Neuts (auto) (2.0-8.3) x10*3/uL Absolute Nucleated RBC (0.0-0.012) X10*3/uL Nucleated RBC % (auto) (0.0-0.2) /100WBC Sodium (135-145) mmol/L Potassium (3.3-5.1) mmol/L Chloride (96-108) mmol/L Carbon Dioxide (22-29) mmol/L Anion Gap (12-20) BUN (9-16) mg/dL Creatinine (0.5-1.4) mg/dL Estim Creat Clear Calc Estimated GFR Random Glucose (60-115) mg/dL Calcium (8.4-10.2) mg/dL Total Bilirubin (0.0-1.0) mg/dL AST (5-31) U/L ALT (0-31) U/L Alkaline Phosphatase (39-117) U/L Total Protein (6.5-8.0) g/dL Albumin (3.5-5.0) g/dL Urine Color Urine Appearance Urine pH (5.0-8.0) Ur Specific [place] (1.005-1.025) Urine Protein (NEG-TRACE) MG/DL Urine Glucose (UA) (NEG) MG/DL Urine Ketones (NEG) MG/DL Urine Blood (NEG) Urine Nitrite (NEG) Ur Leukocyte Esterase (NEG) Urine RBC (0) /HPF Urine WBC (0-4) /HPF Ur Squamous Epith Cells /LPF Calcium Oxalate Crystal /LPF Urine Bacteria /LPF Urine Mucus /LPF Urine Test NEGATIVE (NEGATIVE) Discharge Plan Discharge Clinical Impression: Uterine fibroid, UTI (urinary tract infection), Pelvic pain Patient Disposition: Home, Self-Care Instructions: Urinary Tract Infection in Women (ED), Pelvic Pain in Women (ED) Additional Instructions: Please call your curriculum advisory teacher today and tell them that you are in the emergency room this morning for pelvic pain and you would like to see if you could move up your fibroid surgery. Please take oxycodone as needed, only take it every 6 hours. Please fill the prescription for antibiotics and take it as prescribed. If you have fevers, worsening pain, any other new or concerning symptoms, please return to the emergency room Prescriptions: New cephalexin 500 mg capsule 500 mg PO QID 5 Days Qty: 20 0RF oxycodone 5 mg tablet 5 mg PO Q6H PRN (Reason: pain) Qty: 20 0RF No Action prochlorperazine [Compazine] 25 mg suppository 25 mg SC Q12H PRN (Reason: nausea and vomiting) Qty: 12 1RF sucralfate [Carafate] 100 mg/mL suspension 10 ml PO BID Qty: 420 0RF
[2021-10-31 08:43] LABS: Appearance Urine HAZY; Color Urine YELLOW; Glucose Urine UA NEG (NEG); Leukocyte Esterase Urine TRACE (NEG); Nitrite Urine NEG (NEG); Specific Gravity - Urine >= 1.030 (1.005-1.025); Urine Blood NEG (NEG); Urine Ketones NEG (NEG); Urine Protein NEG (NEG-TRACE)
[2021-10-31 08:46] LABS: UPreg QC Valid YES; Urine Pregnancy NEGATIVE (NEGATIVE)
--- NOTE | 2021-10-31 09:31 | PC.NURSE ---
This RN entered patient's room to medicate them, however, patient was not in the room. Patient is away for imaging. Will medicate upon return to ED Bed 10.
[2021-10-31 09:38] VITALS: RESP 18
[2021-10-31] MEDS: Morphine Sulfate 4 MG/ML CARTRIDGE IVPUSH (09:38)
[2021-10-31] MEDS: ondansetron HCL 4 MG/2 ML VIAL IVPUSH (09:38)
[2021-10-31] MEDS: 0.9 % Sodium Chloride 1,000 ML 999 ML IV (09:38)
[2021-10-31] MEDS: iohexoL 350 MG/ML 100 ML INFUS..BTL 85 ML IV (09:43)
[2021-10-31 09:47] LABS: Mucus Urine 3+ /LPF; Squamous Epithelial Cell Urine 3+ /LPF
[2021-10-31 09:48] LABS: Bacteria Urine 1+ /LPF; Calcium Oxalate Crystals Urine 2+ /LPF
[2021-10-31] MEDS: iohexoL 350 MG/ML 100 ML INFUS..BTL IV (10:01)
== END 2021-10-31 12:37 | disposition home or self-care (01) ==
PROVIDERS: Emergency Provider Emergency Medicine Emergency Medical Services; PCP Internal Medicine
DX: D25.9 Leiomyoma of uterus, unspecified (principal); R30.0 Dysuria; N39.0 Urinary tract infection, site not specified; R10.2 Pelvic and perineal pain; Z98.84 Bariatric surgery status; Z79.899 Other long term (current) drug therapy
CPT/HCPCS: 36415; 74177; 76830; 76856; 80053; 81001; 81025; 85025; 93975; 96361; 96374; 96375; 99283; 99284; J2270; J2405; Q9967

== ENCOUNTER 2023-03-19 05:27 | Emergency (ER) | payer OTHER, SELFPAY ==
--- NOTE | ~2023-03-19 | XR_ITS ---
EXAMINATION: XR LUMBOSACRAL SPINE CLINICAL INFORMATION: Low back pain status post fall COMPARISON: None available. TECHNIQUE: Three views of the lumbosacral spine. FINDINGS: The vertebral bodies and posterior elements are normal. The disc spaces are preserved and the vertebral alignment is normal. The paraspinal soft tissues are normal. XR/XR lumbar spine 2-3V IMPRESSION: No acute fracture or traumatic malalignment.
--- NOTE | ~2023-03-19 | XR_ITS ---
EXAMINATION: XR ANKLE RIGHT XR FOOT RIGHT CLINICAL INFORMATION: Fall, pain COMPARISON: None TECHNIQUE: Right ankle, 3 views Right foot, 2 views FINDINGS: Right ankle: Alignment is normal. The talus is well-positioned within the mortise. The talocrural joint space and syndesmotic space are normal. No evidence of fracture, subluxation or ankle joint effusion. Right foot: Alignment is normal. Joint spaces are normal. No evidence of acute fracture, subluxation or overt soft tissue swelling. No radiopaque foreign body. XR/XR foot RT min 3V IMPRESSION: No acute osseous injury in the right ankle or foot. No fracture or malalignment.
--- NOTE | ~2023-03-19 | XR_ITS ---
EXAMINATION: XR RIBS, BILATERAL CLINICAL INFORMATION: Fall. Rib pain. COMPARISON: None available. TECHNIQUE: Frontal chest and 2 views of the bilateral ribs were obtained. FINDINGS: Lungs are clear. No consolidation, pneumothorax, or pleural effusion. The cardiomediastinal silhouette and pulmonary vasculature are normal. Osseous structures are unremarkable. Ribs are intact. No fractures are identified. XR/XR ribs BI 3V IMPRESSION: Unremarkable examination.
--- NOTE | ~2023-03-19 | XR_ITS ---
EXAMINATION: XR ANKLE RIGHT XR FOOT RIGHT CLINICAL INFORMATION: Fall, pain COMPARISON: None TECHNIQUE: Right ankle, 3 views Right foot, 2 views FINDINGS: Right ankle: Alignment is normal. The talus is well-positioned within the mortise. The talocrural joint space and syndesmotic space are normal. No evidence of fracture, subluxation or ankle joint effusion. Right foot: Alignment is normal. Joint spaces are normal. No evidence of acute fracture, subluxation or overt soft tissue swelling. No radiopaque foreign body. XR/XR ankle RT min 3V IMPRESSION: No acute osseous injury in the right ankle or foot. No fracture or malalignment.
[2023-03-19 05:29] VITALS: BP 122/84; PULSE 98; RESP 18; TEMP 36.6; O2SAT 97; BMI 40.7
[2023-03-19 06:02] VITALS: BP 114/80; PULSE 95; RESP 14; TEMP 36.9; O2SAT 97
--- NOTE | 2023-03-19 06:41 | ED.FALL ---
HPI - Fall General Chief Complaint: Fall Stated Complaint: Fell, low back and right foot pain Time Seen by Provider: 03/19/23 06:40 Source: patient Mode of arrival: ambulatory Limitations: no limitations History of Present Illness HPI Narrative: 32 yo female w/ PMHx significant for depression, anxiety, asthma, and ankylosing spondylitis presenting to the ED today with lower right-sided back pain radiating to the right rib & right foot pain s/p slip and fall. Reports falling onto her left side. Reports right rib pain increased with deep inspiration. States that she stubbed her toe during the fall causing her toe nail to come off. Able to ambulate without difficulty after fall. Patient has chronic back pain secondary to ankylosing spondylitis but states this pain is worse. Admits to taking Flexeril at 0200 this morning with minimal relief. Denies head strike, LOC, neck pain, dizziness, N/V, chest pain, SOB, numbness/tingling/weakness of the LE, bowel/bladder incontinence or retention. Not on AC. Related Data Previous Rx's Medication Instructions Recorded prochlorperazine 25 mg rectal 25 mg RI Q12H PRN nausea and 05/03/21 suppository (Compazine) vomiting #12 ea sucralfate 100 mg/mL oral 10 ml PO BID #420 mL 05/13/21 suspension (Carafate) cephalexin 500 mg capsule 500 mg PO QID 5 days #20 caps 10/31/21 oxycodone 5 mg tablet 5 mg PO Q6H PRN pain #20 tabs 10/31/21 ketorolac 10 mg tablet 10 mg PO Q8H 5 days #15 tabs 03/19/23 lidocaine 5 % topical patch 1 patch topical DAILY #15 ea 03/19/23 (Lidoderm) Allergies Allergy/AdvReac Type Severity Reaction Status Date / Time No Known Allergies Allergy Verified 05/03/21 18:43 Review of Systems Review of Systems: Constitutional : No Weight loss, No Fever, No Chills, No Fatigue, No Malaise ENT/Mouth : No sore throat, No Rhinorrhea Eyes: No Eye Pain, No Swelling, No Redness Cardiovascular : No Chest Pain, No SOB, No Dyspnea on Exertion, No Orthopnea, No Edema, No Palpitations Respiratory : No Cough, No Sputum, No Wheezing Gastrointestinal : No Nausea, No Vomiting, No Diarrhea, No Constipation, No abdominal Pain, No Hematochezia, No Melena Genitourinary : No Dysuria, No Urinary Frequency, No Hematuria, bowel or bladder incontince/ retention Musculoskeletal : + joint pain, + Myalgias, No Joint Swelling Skin : No Skin Lesions, No rash Neuro : No Weakness, No Numbness, No Dizziness, No Headache All other systems reviewed and are negative Yes all other systems are reviewed and are negative [facility] Past Medical History Attestation statement: The following information was validated with the patient. Source: old records reviewed and nursing notes reviewed Medical History Depression Anxiety Asthma Surgical History H/O gastric sleeve Social History Social History Alcohol intake: current Alcohol intake frequency: holidays/special occasions only Patient Tobacco Use Status: Never used Tobacco Smoked in Last 30 Days: No Use of substances other than those prescribed or required for medical reasons: No Advance Directives: No Advance Directives Information Provided: No Patient : No Physical Exam Vital Signs: Vital Signs: Last Vital Signs Temp 97.9 F 03/19/23 07:24 Pulse 85 03/19/23 07:24 Resp 15 03/19/23 07:24 BP 106/68 03/19/23 07:24 Pulse Ox 98 03/19/23 07:24 O2 Del Method Room Air 03/19/23 07:24 BMI result Body Mass Index 40.7 Vital signs stable Appearance: Alert.? Oriented X3.? No acute distress.?Lying comfortably in bed. Head: Normocephalic, atraumatic, no step-offs or deformities Eyes: Pupils equal, round and reactive to light.? ENT: Pharynx normal.? Neck: Normal inspection.? Neck supple.? Chest: Chest wall tender to palpation over the right anterior rib cage without ecchymosis, crepitis, or deformity. No paradoxical movement of the chest wall. CVS: RRR.?Pulses normal.? Respiratory: No respiratory distress.? Breath sounds normal. Abdomen: Soft, nontender to palpation, nondistended, +BS throughout. Skin: Skin warm and dry.? Normal skin color.? Normal skin turgor.? Extremities: No lower extremity edema.? No calf ttp. 5/5 strength to bilateral upper and lower extremities. No tenderness over the lateral or medial malleolus. No bruises, lacerations, or overlying deformity. Back: No ecchymosis or obvious deformity. Midline spinous tenderness over L4-L5 with right lumbar paraspinous tenderness. No C-spine tenderness, full ROM Neuro: Oriented X 3.? No motor deficit.? No sensory deficit. CN 2-12 intact. No saddle paresthesia. NV intact distally. Ambulating with steady gait. Course Reevaluation(s) Reevaluation #1: On re-evaluation patient reports pain improvement with Toradol. Rib and lumbar spine radiographs unremarkable > unlikely acute fracture, likely muscle sprain/ strain. Awaiting xray foot/ankle. Time: 08:37 Reevaluation #2: CROW Patel to take over care of this patient Time: 08:50 Reevaluation #3: Xray foot/ ankle unremarkable > likely muscle sprain/ strain. Discussed results with patient and used shared decision making to determine disposition. Will send patient home with toradol and lidoderm patches. FREDRICK wrap applied to R ankle. Plan for out patient follow up with PCP and ortho. Patient agreeable to plan. Stable for discharge. Sakshi Irene PA-C am principle provider on this note. Time: 09:41 Medications Administered Discontinued Medications Generic Name Dose Route Start Last Admin Trade Name Freq PRN Reason Stop Dose Admin Ketorolac Tromethamine 30 mg 03/19/23 06:51 03/19/23 06:58 Ketorolac Tromethamine 15 Mg/Ml Vial IM 03/19/23 06:52 30 mg ONCE ONE Administration Procedures Orthopedic Splinting/Casting Injury #1: Side: right Lower Extremity Injury Location: ankle Lower Extremity Immobilizer: Fredrick wrap Medical Decision Making Medical Decision Making [facility] Narrative: 0707 32 yo female with low back pain, R rib pain, and R foot pain s/p slip and fall PE- Lungs CTA b/l. No ecchymosis, crepitis, or deformity noted to chest wall. No paradoxical movement of the chest wall. Midline lumbar spinous tenderness and paraspinous tenderness, 5/5 strength to UE and LE, sensation intact throughout, NV intact distally, ambulating with steady gait. Clinical concern for rib fracture vs ankle fracture vs ligamentous sprain/ strain vs lumbar sprain/ strain vs spinal fracture vs acute on chronic low back pain. Low suspicion for ICH, pneumothorax. Unlikely flail chest, cauda equina, epidural abscess or cord compression. Plan: imaging, pain control Differential Diagnosis Differential Diagnoses: The differential diagnosis associated with the presentation includes Clinical concern for rib fracture vs ankle fracture vs ligamentous sprain/ strain vs lumbar sprain/ strain vs spinal fracture vs acute on chronic low back pain. Low suspicion for ICH, pneumothorax. Unlikely flail chest, cauda equina, epidural abscess or cord compression. Admission/Observation Not indicated. Lab Data Not indicated. Independent Interpretation I performed an independent interpretation of an: Plain X-Ray Interpretation: Xray ribs without acute fracture, agree with radiologist's interpretation. Xray lumbar spine without acute fracture, agree with radiologist's interpretation. Xray right ankle/ foot without acute fracture or malalignment, agree with radiologist's interpretation. Radiology Impression Discussion of test interpretation with radiology: I have reviewed the radiologist's reading. Radiologist Impression: XR ribs BI 3V IMPRESSION: Unremarkable examination. XR lumbar spine 2-3V IMPRESSION: No acute fracture or traumatic malalignment. XR foot RT min 3V IMPRESSION: No acute osseous injury in the right ankle or foot. No fracture or malalignment. XR ankle RT min 3V IMPRESSION: No acute osseous injury in the right ankle or foot. No fracture or malalignment. External Record Review External record reviewed: Inpatient record Tests considered The following testing was considered but not selected: Considered ordering labs however patient's vital signs stable and unremarkable imaging. Prescription Management I considered prescription management with: Pain Medication Chronic Conditions Patient?s care impacted by: Other (ankylosing spondylitis ) Core Measures AMI core measures followed: Yes Measure exclusions: not indicated Discharge Plan Discharge Clinical Impression: Musculoskeletal pain, Rib pain on right side, Ankle sprain, Ankylosing spondylitis Patient Disposition: Home, Self-Care Instructions: Musculoskeletal Pain (ED) Additional Instructions: Your pain is likely musculoskeletal. Avoid bending, lifting, or twisting. Apply fredrick bandage to ankle for support as needed. Use ice several times per day for 20 minutes at a time for the next 48 hours and then change to heat. Toradol as an anti-inflammatory / pain medication. Take with food. Lidoderm patches are numbing patches. Apply to painful areas. In addition you may take Tylenol at home. Follow up with your primary care provider as needed. A referral to [facility] orthopedics has been provided to you. If your pain worsens, if you develop new numbness, tingling, weakness, loss of bowel or bladder function call 911 or return to the ER immediately for evaluation. Prescriptions: New ketorolac 10 mg tablet 10 mg PO Q8H 5 Days Qty: 15 0RF Rx Instructions: Tolerated in ED. lidocaine [Lidoderm] 5 % adhesive patch,medicated 1 patch topical DAILY Qty: 15 0RF Rx Instructions: leave on most painful area for up to 12 hrs No Action cephalexin 500 mg capsule 500 mg PO QID 5 Days Qty: 20 0RF oxycodone 5 mg tablet 5 mg PO Q6H PRN (Reason: pain) Qty: 20 0RF prochlorperazine [Compazine] 25 mg suppository 25 mg RI Q12H PRN (Reason: nausea and vomiting) Qty: 12 1RF sucralfate [Carafate] 100 mg/mL suspension 10 ml PO BID Qty: 420 0RF Referrals: Michael Mina MD [Physician] - Cassius Alvarez MD [Primary Care Provider] - Stand Alone Forms: Work/School Release Interventions: ED Discharge Assessment Last Done: 03/19/23 11:22 Discharge Date/Time: 03/19/23 11:23
[2023-03-19] MEDS: Ketorolac Tromethamine 15 MG/ML VIAL 30 MG IM (06:58)
--- NOTE | 2023-03-19 07:00 | PC.NURSE ---
Resumed care of patient this AM, reporting 8/10 pain, IM pain medication ordered and given. Pt went ot Xray, awaiting results at this time. All other needs met.
[2023-03-19 07:24] VITALS: BP 106/68; PULSE 85; RESP 15; TEMP 36.6; O2SAT 98
--- NOTE | 2023-03-19 09:20 | MHC.EDTECH ---
Called [facility] for imaging @ 9:15am
== END 2023-03-19 11:23 | disposition home or self-care (01) ==
PROVIDERS: Emergency Provider Emergency Medicine; PCP Internal Medicine
DX: S93.401A Sprain of unspecified ligament of right ankle, initial encounter (principal); W01.0XXA Fall on same level from slipping, tripping and stumbling without subsequent striking against object, initial encounter; M79.18 Myalgia, other site; R07.81 Pleurodynia; M45.6 Ankylosing spondylitis lumbar region; Z79.899 Other long term (current) drug therapy; Y93.9 Activity, unspecified; Y92.89 Other specified places as the place of occurrence of the external cause; Y99.9 Unspecified external cause status
CPT/HCPCS: 71110; 72100; 73610; 73630; 96372; 99284; J1885

== ENCOUNTER 2023-09-24 09:52 | Outpatient (AMB) | payer OTHER, SELFPAY ==
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
== END 2023-09-24 11:02 | disposition home or self-care (01) ==
LOC: HO.HOP 09:52
PROVIDERS: PCP Internal Medicine; Visit Provider Clinical Nurse Specialist Psychiatric/Mental Health
DX: F43.12 Post-traumatic stress disorder, chronic (principal); F50.9 Eating disorder, unspecified; F42.9 Obsessive-compulsive disorder, unspecified
CPT/HCPCS: 99214

== ENCOUNTER → 2023-09-24 09:52 | Outpatient (BNVA) | payer OTHER, SELFPAY | PROVIDERS: PCP Internal Medicine; Visit Provider Clinical Nurse Specialist Psychiatric/Mental Health | DX: F43.10 Post-traumatic stress disorder, unspecified (principal); F50.9 Eating disorder, unspecified; F42.9 Obsessive-compulsive disorder, unspecified; Z79.899 Other long term (current) drug therapy | CPT/HCPCS: 99212 ==

== ENCOUNTER 2023-11-15 09:39 | Outpatient (AMB) | payer OTHER, SELFPAY ==
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
== END 2023-11-15 10:56 | disposition home or self-care (01) ==
LOC: HO.HOP 09:39
PROVIDERS: PCP Internal Medicine; Visit Provider Clinical Nurse Specialist Psychiatric/Mental Health
DX: F33.2 Major depressive disorder, recurrent severe without psychotic features (principal); F43.10 Post-traumatic stress disorder, unspecified; F42.2 Mixed obsessional thoughts and acts
CPT/HCPCS: 99215

== ENCOUNTER → 2023-11-15 09:39 | Outpatient (BNVA) | payer OTHER, SELFPAY | PROVIDERS: PCP Internal Medicine; Visit Provider Clinical Nurse Specialist Psychiatric/Mental Health | DX: F33.2 Major depressive disorder, recurrent severe without psychotic features (principal); F43.10 Post-traumatic stress disorder, unspecified; F42.2 Mixed obsessional thoughts and acts | CPT/HCPCS: 99212 ==

== ENCOUNTER 2024-01-17 12:39 | Outpatient (AMB) | payer OTHER, SELFPAY ==
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
== END 2024-01-17 13:52 | disposition home or self-care (01) ==
LOC: HO.HOP 12:39
PROVIDERS: PCP Internal Medicine; Visit Provider Clinical Nurse Specialist Psychiatric/Mental Health
DX: F42.2 Mixed obsessional thoughts and acts (principal); F43.10 Post-traumatic stress disorder, unspecified; F33.2 Major depressive disorder, recurrent severe without psychotic features
CPT/HCPCS: 99214

== ENCOUNTER → 2024-01-17 12:39 | Outpatient (BNVA) | payer OTHER, SELFPAY | PROVIDERS: PCP Internal Medicine; Visit Provider Clinical Nurse Specialist Psychiatric/Mental Health | DX: F42.2 Mixed obsessional thoughts and acts (principal); F43.10 Post-traumatic stress disorder, unspecified; F33.2 Major depressive disorder, recurrent severe without psychotic features; Z79.899 Other long term (current) drug therapy | CPT/HCPCS: 99212 ==

== ENCOUNTER 2024-03-16 11:41 | Outpatient (AMB) | payer OTHER, SELFPAY ==
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
--- OUTSIDE RECORDS SUMMARY | 2024-03-16 11:43 | XMS_ITS | Continuity of Care Document ---
Author Organization [facility] Address [address] [place] [address]- Care Team Providers Care Ict Help Desk Technician Name Role Phone Cassius Alvarez MD Primary Care Physician [phone] Encounter [facility] Date(s): 10/11/23 - 10/18/23 [facility] [address] [place], [place] [address] Encounter Diagnosis Physical exam(Discharge Diagnosis) - 10/11/23 Severe obesity(Discharge Diagnosis) - 10/12/23 Attending Physician: Cassius Alvarez MD Allergies, Adverse Reactions, Alerts Substance Reaction Severity Status sodium chloride Active Remicade Active Other Environmental Allergy 1 Active 1seasonal Immunizations Given and Recorded Vaccine Date Status Refusal Reason SARS-CoV-2(COVID-19)mRNA-LNP vac([id number]) 05/28/23 Recorded influenza virus vaccine, inactivated 1 05/19/23 Gi marco a influenza virus vaccine, inactivated 04/18/22 [place] rded influenza virus vaccine, inactivated 05/01/21 [place] rded influenza virus vaccine, inactivated 04/17/20 [place] rded influenza virus vaccine, inactivated 03/16/19 [place] rded influenza virus vaccine, inactivated 03/18/18 [place] rded influenza virus vaccine, inactivated 06/18/17 [place] rded influenza virus vaccine, inactivated 04/27/16 [place] rded influenza virus vaccine, inactivated 04/17/15 [place] rded influenza virus vaccine, inactivated 04/30/14 [place] rded influenza virus vaccine, inactivated 03/15/12 [place] rded influenza virus vaccine, inactivated 06/08/11 [place] rded influenza virus vaccine, inactivated 05/14/10 [place] rded influenza virus vaccine, inactivated 05/14/09 [place] rded influenza virus vaccine, inactivated 04/19/09 [place] rded tetanus/diphtheria/pertussis, acel(Tdap) 06/05/22 Recorded tetanus/diphtheria/pertussis, acel(Tdap) 04/23/09 Recorded [id number] 12y+ bivalent booster vax 04/18/22 Recorded SARS-CoV-2 mRNA (mkzpkil-ghug-erdrp) vax 10/09/21 Recorded SARS-CoV-2 (COVID-19) mRNA BNT-162b2 vac 05/17/21 Recorded SARS-CoV-2 (COVID-19) mRNA BNT-162b2 vac 10/15/20 Recorded SARS-CoV-2 (COVID-19) mRNA BNT-162b2 vac 09/24/20 Recorded tetanus-diphtheria toxoids (Td) 11/26/20 Recorded tetanus-diphtheria toxoids (Td) 12/20/03 Recorded tetanus-diphtheria toxoids (Td) 10/17/97 Recorded tetanus-diphtheria toxoids (Td) 04/25/94 Recorded Varicella Virus Vaccine 04/23/09 Recorded Varicella Virus Vaccine 03/09/95 Recorded Human Papillomavirus Vaccine 08/08/07 Recorded Human Papillomavirus Vaccine 04/01/07 Recorded Human Papillomavirus Vaccine 01/28/07 Recorded Meningococcal Conjugate Vaccine 01/28/07 Recorded Poliovirus Vaccine, Inactivated 10/17/97 Recorded Poliovirus Vaccine, Inactivated 04/25/94 Recorded Poliovirus Vaccine, Inactivated 04/25/93 Recorded Poliovirus Vaccine, Inactivated 92 Recorded Measles/Mumps/Rubella Virus Vaccine 10/17/97 Recor ded Measles/Mumps/Rubella Virus Vaccine 10/24/93 Recor ded Haemophilus B Conj Vaccine (oldterm) 02/23/94 [place] rded Haemophilus B Conj Vaccine (oldterm) 04/25/93 [place] rded Haemophilus B Conj Vaccine (oldterm) 02/23/93 [place] rded Haemophilus B Conj Vaccine (oldterm) 92 [place] rded diphtheria/tetanus/pertussis, acel(DTaP) 04/25/93 Recorded diphtheria/tetanus/pertussis, acel(DTaP) 02/23/93 Recorded diphtheria/tetanus/pertussis, acel(DTaP) 92 Recorded hepatitis B pediatric vaccine 04/25/93 Recorded hepatitis B pediatric vaccine 92 Recorded hepatitis B pediatric vaccine 92 Recorded 1Result Comment: [facility] 80676-068-19 Medications Albuterol (Eqv-ProAir HFA) 90 mcg/inh inhalation aerosol 2 puffs, Inhalation, Every 4 hours, PRN cough, shortness of breath, wheezing, # 8.5 Gm, 1 Refills, Maintenance, 12/22/22 8:57:00 EDT, Inhaler, [facility] #[id number], Partial fill upon patient request if the prescription is for a schedule II opio... Start Date: 12/22/22 Status: Ordered albuterol 0.083% inhalation solution 3 mL = 2.5 mg, Neb, Every 6 hours, PRN Wheezing/Shortness of Breath, J45.909, # 100 each, 1 Refills, Maintenance, 06/24/22 9:28:00 EST, Inhalation Solution, [id number], Partial fill upon patient request if the prescription is for a schedule II... Start Date: 06/24/22 Status: Ordered Breo Ellipta 200 mcg-25 mcg/inh inhalation powder 1 puffs, Inhalation, Daily, # 1 each, 0 Refills, Maintenance, 06/24/22 9:37:00 EST, Powder, Partialfill upon patient request if the prescription is for a schedule II opioid drug. Start Date: 06/24/22 Status: Ordered escitalopram 20 mg oral tablet 1 tablet = 20 mg, By Mouth, Daily, # 90 tablet, 0 Refills, Maintenance, 10/11/23 11:27:00 EDT, Tablet, Partial fill upon patient request if the prescription is for a schedule II opioid drug. Start Date: 10/11/23 Status: Ordered famotidine 20 mg oral tablet 1, tablet, By Mouth, 2 times a day, PRN, # 180 tablet, Refills 1, Maintenance, NEEDED FOR REFLUXOR HEARTBURN, 05/23/23 8:05:00 EST, Route to Pharmacy Electronically, [facility] #[id number], 160, cm, 04/27/23 10:14:00 EDT, Height, 85.4, kg, 11... Start Date: 05/23/23 Status: Ordered hydrOXYzine hydrochloride 10 mg oral tablet TAKE 1 TABLET BY MOUTH 3 TO 4 TIMES DAILY NEEDED FOR ANXIETY Start Date: 02/02/22 Status: Ordered Metoprolol Succinate ER 25 mg oral tablet, extended release 1 tablet, By Mouth, Daily, # 30 tablet, 5 Refills, Maintenance, 10/18/23 16:45:00 EDT, [facility] #[id number], 160, cm, 10/11/23 10:48:00 EDT, Height, 85.4, kg, 05/15/22 7:26:00 EDT, Dry Weight Start Date: 10/18/23 Status: Ordered mirtazapine 15 mg oral tablet 0.5 tablet = 7.5 mg, By Mouth, Daily at bedtime Start Date: 02/02/22 Status: Ordered Norethindrone Tablet 5 mg, By Mouth, Daily, Refills 0, Maintenance, 10/07/22 14:35:00 EDT, Partial fill upon patient request if the prescription is for a schedule II opioid drug. Start Date: 10/07/22 Status: Ordered Taltz Autoinjector 80 mg/mL subcutaneous solution = 160 mg, Subcutaneous Injection, Once, # 2 mL, 0 Refills, Maintenance, 10/11/23 11:27:00 EDT, Solution, Partial fill upon patient request if the prescription is for a schedule II opioid drug. Start Date: 10/11/23 Status: Ordered Problem List Condition Confirmation Course Effective Dates Status H ealth Status Informant Allergic rhinitis Confirmed 08/25/17 Active Ankylosing spondylitis; Dr Brady at [facility] Confirmed 03/31/13 Active Anxiety Confirmed 07/04/14 Active Asthma Confirmed 07/04/14 Active Attention deficit hyperactivity disorder Confirmed 07/04/14 Active Bulimia nervosa Confirmed 06/04/21 Active Chronic low back pain; Dr Sanders Confirmed 09/12/14 Active Fibromyalgia Confirmed 09/12/14 Active GERD (gastroesophageal reflux disease) Confirmed Active Headache; Dr Flowers Confirmed 07/24/11 Active History of bariatric surgical procedure - sleeve gastrectomy 08/31, bypass 08/04 Confirmed 08/29/19 Active Hydronephrosis, [facility] 07/02 Confirmed Active Iron deficiency anemia Confirmed 12/01/16 Active Kidney stone Confirmed 07/04/14 Active Leukocytosis; seen by [facility] in 2016 Confirmed 08/15/15 Active Nausea and vomiting Confirmed Active Obsessive-compulsive disorder Confirmed 07/04/14 Active Obstructive sleep apnea syndrome Confirmed 10/08/14 Active Palpitation Confirmed Active Depression, major, recurrent Confirmed 07/04/14 Active Severe obesity Confirmed Active Varicella non-immune Confirmed 01/27/22 Active Diagnosis Diagnosis Type Effective Dates Health Status Cl inical Service Informant Physical exam Discharge Diagnosis 10/11/23 Severe obesity Discharge Diagnosis 10/12/23 Procedures Procedure Date Related Diagnosis Body Site Status Revision of gastric bypass 2023 Completed Vital Signs Most recent to oldest [Reference Range]: 1 Height 160 cm (10/11/23 10:48 AM) Weight 104.1 kg (10/11/23 10:48 AM) Oxygen Saturation [94-100 %] 98 % (10/11/23 10:48 AM) Pulse Rate [55-90 bpm] 106 bpm *H* (10/11/23 10:48 AM) Body Mass Index [18.5-24.99 kg/m2] 40.66 kg/m2 *>HHI* (10/11/23 10:48 AM) Blood Pressure [90-138/55-84 mm Hg] 108/ 75mm Hg (10/11/23 10:48 AM) Blood pressure sites Arm, right (10/11/23 10:48 AM) Social History Social History Type Response Smoking Status Never smoker entered on: 10/02/14 Sex Patient Care team information Care Team Personnel Name: Cassius Alvarez MD Position: [facility] Physician - Primary Care Member Role: PCP Address: Address: [address] [place] [address] Name: Rosalva Fletcher Position: [facility] Outreach Member Role: Lifetime Consulting Physician Care Team Related Persons Name: MERCED ARENAS Address: [place] [address] [place] [address] Name: KALEY ARENAS Address: home [address] [place] [address] Name: DIMA VILLASENOR Address: home [address] [place] [id number]
--- OUTSIDE RECORDS SUMMARY | 2024-03-16 11:43 | XMS_ITS | Continuity of Care Document ---
Author Organization [facility] Address [address] [place] [address]- Care Team Providers Care Pumper Hand Name Role Phone Cassius Alvarez MD Primary Care Physician Encounter [facility] Date(s): 07/20/22 - 08/19/22 [facility] [address] [place], [place] [address] Allergies, Adverse Reactions, Alerts Substance Reaction Severity Status Remicade Active Other Environmental Allergy 1 Active 1seasonal Immunizations Given and Recorded Vaccine Date Status Refusal Reason influenza virus vaccine, inactivated 04/18/22 [place] rded [...] influenza virus vaccine, inactivated 04/19/09 [place] rded [id number] 12y+ bivalent booster vax 04/18/22 Recorded SARS-CoV-2 mRNA (zljkeun-bxlz-hjvnm) vax 10/09/21 Recorded SARS-CoV-2 (COVID-19) mRNA BNT-162b2 vac 05/17/21 Recorded SARS-CoV-2 (COVID-19) mRNA BNT-162b2 vac 10/15/20 Recorded SARS-CoV-2 (COVID-19) mRNA BNT-162b2 vac 09/24/20 Recorded tetanus-diphtheria toxoids (Td) 11/26/20 Recorded tetanus-diphtheria toxoids (Td) 12/20/03 Recorded tetanus-diphtheria toxoids (Td) 10/17/97 Recorded tetanus-diphtheria toxoids (Td) 04/25/94 Recorded Varicella Virus Vaccine 04/23/09 Recorded Varicella Virus Vaccine 03/09/95 Recorded tetanus/diphtheria/pertussis, acel(Tdap) 04/23/09 Recorded Human Papillomavirus Vaccine 08/08/07 Recorded Human [...] Recorded hepatitis B pediatric vaccine 92 Recorded Medications Albuterol (Eqv-ProAir HFA) 90 mcg/inh inhalation aerosol INHALE 2 PUFFS INTO THE LUNGS EVERY 4 HOURS NEEDED FOR COUGH OR WHEEZING Start Date: 02/02/22 Status: Ordered albuterol 0.083% inhalation solution 3 mL = 2.5 mg, Neb, Every 6 hours, PRN Wheezing/Shortness of Breath, J45.909, # 100 each, 1 Refills, Maintenance, 06/24/22 9:28:00 EST, Inhalation Solution, [facility]/pharmacy #[id number], Partial fill upon patient request if the prescription is for a schedule II... Start Date: 06/24/22 Status: Ordered Breo Ellipta 200 mcg-25 mcg/inh inhalation powder 1 puffs, Inhalation, Daily, # 1 each, 0 Refills, Maintenance, 06/24/22 9:37:00 EST, Powder, Partialfill upon patient request if the prescription is for a schedule II opioid drug. Start Date: 06/24/22 Status: Ordered busPIRone 5 mg oral tablet 0.5 mg, By Mouth, 2 times a day, Refills 0, Maintenance, 08/15/22 15:43:00 EST, Partial fill upon patient request if the prescription is for a schedule II opioid drug. Start Date: 08/15/22 Status: Ordered Certolizumab Subcutaneous, 1 Refill(s), Inject into the skin., 0 Refills, 02/08/22 14:02:00 EDT, Partial fill upon patient request if the prescription is for a schedule II opioid drug. Start Date: 02/08/22 Status: Ordered famotidine 20 mg oral tablet See Instructions, TAKE 1 TABLET BY MOUTH TWICE DAILY NEEDED FOR REFLUX AND HEARTBURN, # 180 tablet, Refills 0, Maintenance, 04/29/22 7:38:00 EDT, Instructions Replace Required Details, Route to Pharmacy Electronically, [facility] #[id number],... Start Date: 04/29/22 Status: Ordered hydrOXYzine hydrochloride 10 mg oral tablet TAKE 1 TABLET BY MOUTH 3 TO 4 TIMES DAILY NEEDED FOR ANXIETY Start Date: 02/02/22 Status: Ordered mirtazapine 15 mg oral tablet See Instructions, 1/2 tab in AM, 1 tab in PM Start Date: 02/02/22 Status: Ordered promethazine 25 mg oral tablet TAKE 1 TABLET BY MOUTH EVERY 6 HOURS NEEDED FOR NAUSEA Start Date: 02/02/22 Status: Ordered pyridoxine 25 mg oral tablet TAKE 1 TABLET BY MOUTH FOUR TIMES DAILY BEFORE MEALS AND AT NIGHT Start Date: 02/02/22 Status: Ordered Unisom 25 mg oral tablet TAKE 1 TABLET BY MOUTH EVERY NIGHT AT BEDTIME NEEDED Start Date: 02/02/22 Status: Ordered WesTab Plus oral tablet TAKE 1 TABLET BY MOUTH EVERY DAY Start Date: 02/02/22 Status: Ordered Problem List Condition Confirmation Course Effective Dates Status H ealth Status Informant Allergic rhinitis Confirmed 08/25/17 Active Ankylosing spondylitis; Dr Brady at [facility] Confirmed 03/31/13 Active Anxiety Confirmed 07/04/14 Active Asthma Confirmed 07/04/14 Active Attention deficit hyperactivity disorder Confirmed 07/04/14 Active Bulimia nervosa Confirmed 06/04/21 Active Chronic low back pain; Dr Sanders Confirmed 09/12/14 Active Fibromyalgia Confirmed 09/12/14 Active GERD (gastroesophageal reflux disease) Confirmed Active Headache; Dr Flowers Confirmed 07/24/11 Active History of bariatric surgical procedure - sleeve gastrectomy 08/31 Confirmed 08/29/19 Active Hydronephrosis, [facility] 07/02 Confirmed Active Iron deficiency anemia Confirmed 12/01/16 Active Kidney stone Confirmed 07/04/14 Active Leukocytosis; seen by [facility] in 2015 Confirmed 08/15/15 Active Nausea and vomiting Confirmed Active Obese class I Confirmed Active Obsessive-compulsive disorder Confirmed 07/04/14 Active Obstructive sleep apnea syndrome Confirmed 10/08/14 Active Palpitation Confirmed Active Depression, major, recurrent Confirmed 07/04/14 Active Varicella non-immune Confirmed 01/27/22 Active Social History Social History Type Response Smoking Status Never smoker entered on: 10/02/14 Sex Patient Care team information Care Team Personnel Name: Cassius Alvarez MD Position: [facility] Primary Care Physician Member Role: PCP Address: Address: [address] [place] [id number]- Name: Rosalva Fletcher Position: [facility] Outreach Member Role: Lifetime Consulting Physician Care Team Related Persons Name: MERCED ARENAS Address: home [address] [place] [id number] Name: KALEY ARENAS Address: home [address] [place] [phone]
--- OUTSIDE RECORDS SUMMARY | 2024-03-16 11:43 | XMS_ITS | Continuity of Care Document ---
Author Organization [facility] Address [address] [place] [address]- Care Team Providers Care Assistant To The Ceo Name Role Phone Cassius Alvarez MD Primary Care Physician Encounter [facility] Date(s): 06/03/22 - 07/03/22 [facility] [address] [place], [place] [address] Allergies, Adverse Reactions, Alerts Substance Reaction Severity [...] influenza virus vaccine, inactivated 04/19/09 [place] rded [id number] 12y+ bivalent booster vax 04/18/22 Recorded SARS-CoV-2 mRNA ([id number]) vax 10/09/21 Recorded SARS-CoV-2 (COVID-19) mRNA BNT-162b2 [...] Refills, Maintenance, 06/24/22 9:28:00 EST, Inhalation Solution, [facility]/pharmacy #[id number], Partial fill upon patient request if the prescription is for a schedule II... Start Date: 06/24/22 Status: Ordered Blood pressure cuff Blood pressure cuff, See Instructions, # 1 each, Refills 0, Tot. Refills 0, Maintenance, Use to check blood pressure; dx: hypotension, 05/15/22 16:30:00 EDT, Supply Start Date: 05/15/22 Status: Ordered Breo Ellipta 100 mcg-25 mcg/inh inhalation powder 1 puffs, Inhalation, Daily, # 3 each, 1 Refills, Maintenance, 05/18/22 13:39:00 EST, Inhaler, [facility]/pharmacy #[id number], Partial fill upon patient request if the prescription is for a schedule II opioid drug., 1 puffs Inhalation Daily, 160, cm, 05/13/22 8:58... Start Date: 05/18/22 Status: Ordered Breo Ellipta 200 mcg-25 mcg/inh inhalation powder 1 puffs, Inhalation, Daily, # 1 each, 0 Refills, Maintenance, 06/24/22 9:37:00 EST, Powder, Partialfill upon patient request if the prescription is for a schedule II opioid drug. Start Date: 06/24/22 Status: Ordered Certolizumab Subcutaneous, 1 Refill(s), Inject [...] Replace Required Details, Route to Pharmacy Electronically, [facility] #[id number],... Start Date: 04/29/22 Status: Ordered Home Blood Pressure Monitor See Instructions, # 1 each, Maintenance, Use to check blood pressure as directed. Dx: hypotension, 05/18/22 13:36:00 EST, Supply Start Date: 05/18/22 Status: Ordered hydrOXYzine hydrochloride 10 mg oral tablet TAKE 1 TABLET BY MOUTH 3 TO 4 TIMES DAILY NEEDED FOR ANXIETY Start Date: 02/02/22 Status: Ordered mirtazapine 15 mg oral tablet 1/2 tab PO BID Start Date: 02/02/22 Status: Ordered promethazine 25 [...] 08/25/17 Active Ankylosing spondylitis; Dr Brady at [facility] Confirmed 03/31/13 Active Anxiety Confirmed 07/04/14 Active [...] stone Confirmed 07/04/14 Active Leukocytosis; seen by [facility] in 2015 Confirmed 08/15/15 Active Nausea and [...] Team Personnel Name: Cassius Alvarez MD Position: [facility] Primary Care Physician Member Role: PCP Address: Address: [address] [place] [id number] Name: Rosalva Fletcher Position: [facility] Outreach Member Role: Lifetime Consulting Physician Care Team Related Persons Name: MERCED ARENAS Address: home [address] [place] [id number] Name: KALEY ARENAS Address: home [address] [place] [address]
--- OUTSIDE RECORDS SUMMARY | 2024-03-16 11:43 | XMS_ITS | Continuity of Care Document ---
Author Organization [facility] Address [address] [address]- Care Team Providers Care Prototype Technician Name Role Phone Cassius Alvarez MD Primary Care Physician Encounter [facility] Date(s): 08/10/22 - 09/09/22 [place] [id number], [place] [address]- [place] Allergies, Adverse Reactions, Alerts Substance Reaction Severity [...] influenza virus vaccine, inactivated 04/19/09 [place] rded [id number] 12y+ bivalent booster vax 04/18/22 Recorded SARS-CoV-2 mRNA (ngysmfw-aevi-whxnh) vax 10/09/21 Recorded SARS-CoV-2 (COVID-19) mRNA BNT-162b2 [...] Refills, Maintenance, 06/24/22 9:28:00 EST, Inhalation Solution, [facility]/pharmacy #[id number], Partial fill upon patient request if the [...] Replace Required Details, Route to Pharmacy Electronically, [facility] #[id number],... Start Date: 04/29/22 Status: Ordered hydrOXYzine hydrochloride [...] 08/25/17 Active Ankylosing spondylitis; Dr Brady at [facility] Confirmed 03/31/13 Active Anxiety Confirmed 07/04/14 [...] Team Personnel Name: Cassius Alvarez MD Position: [facility] Primary Care Physician Member Role: PCP Address: Address: [address] [place] [id number] Name: Rosalva Fletcher Position: [facility] Outreach Member Role: Lifetime Consulting Physician Care Team Related Persons Name: MERCED ARENAS Address: home [address] [place] [id number] Name: KALEY ARENAS Address: home [address] [place] [phone]
--- OUTSIDE RECORDS SUMMARY | 2024-03-16 11:44 | XMS_ITS | Continuity of Care Document ---
Author Organization [facility] Address [address] [address]- Care Team Providers Care Nozzle Operator Name Role Phone Cassius Alvarez MD Primary Care Physician Encounter [facility] Date(s): 06/02/22 - 06/09/22 [facility] [address] [address] [place] Encounter Diagnosis Palpitation(Discharge Diagnosis) - 06/02/22 Attending Physician: Parul Browne MD Admitting Physician: Parul Browne MD Referring Physician: Cassius Alvarez MD Allergies, Adverse Reactions, [...] influenza virus vaccine, inactivated 04/19/09 [place] rded [id number] 12y+ bivalent booster vax 04/18/22 Recorded SARS-CoV-2 mRNA (kilmcht-jvcs-zgans) vax 10/09/21 Recorded SARS-CoV-2 (COVID-19) mRNA BNT-162b2 [...] OR WHEEZING Start Date: 02/02/22 Status: Ordered Albuterol 0.083% inhalation selena Refills 0, Maintenance, 02/02/22 11:29:00 EDT Start Date: 02/02/22 Status: Ordered Blood pressure cuff Blood pressure cuff, See Instructions, # 1 each, Refills 0, Tot. Refills 0, Maintenance, Use to check blood pressure; dx: hypotension, 05/15/22 16:30:00 EDT, Supply Start Date: 05/15/22 Status: Ordered Breo Ellipta 100 mcg-25 mcg/inh inhalation powder 1 puffs, Inhalation, Daily, # 3 each, 1 Refills, Maintenance, 05/18/22 13:39:00 EST, Inhaler, [facility]/pharmacy #[id number], Partial fill upon patient request if the prescription is for a schedule II opioid drug., 1 puffs Inhalation Daily, 160, cm, 05/13/22 8:58... Start Date: 05/18/22 Status: Ordered Certolizumab Subcutaneous, 1 Refill(s), Inject [...] Replace Required Details, Route to Pharmacy Electronically, [id number],... Start Date: 04/29/22 Status: Ordered Home Blood [...] Condition Confirmation Course Effective Dates Status H ealt Status Informant Allergic rhinitis Confirmed 08/25/17 Active Ankylosing spondylitis; Dr Brady at [facility] Confirmed 03/31/13 Active Anxiety Confirmed 07/04/14 Active Asthma Confirmed 07/04/14 Active Attention deficit hyperactivity disorder Confirmed 07/04/14 Active Bulimia nervosa Confirmed 06/04/21 Active Chronic low back pain; Dr Sanders Confirmed 09/12/14 Active Fibromyalgia Confirmed 09/12/14 Active GERD (gastroesophageal reflux disease) Confirmed Active Headache; Dr Floewrs Confirmed 07/24/11 Active History of bariatric surgical procedure - sleeve gastrectomy 08/31 Confirmed 08/29/19 Active Iron deficiency anemia Confirmed 12/01/16 Active Kidney stone Confirmed 07/04/14 Active Leukocytosis; seen by [facility] in 2015 Confirmed 08/15/15 Active Nausea and vomiting Confirmed Active Obese class I Confirmed Active Obsessive-compulsive disorder Confirmed 07/04/14 Active Obstructive sleep apnea syndrome Confirmed 10/08/14 Active Palpitation Confirmed Active Depression, major, recurrent Confirmed 07/04/14 Active Varicella non-immune Confirmed 01/27/22 Active Diagnosis Diagnosis Type Effective Dates Health Status Clini anant Service Informant Palpitation Discharge Diagnosis 06/02/22 Vital Signs Most recent to oldest [Reference Range]: 1 Height 160 cm (06/02/22 9:40 AM) Weight 85.8 kg (06/02/22 9:40 AM) Oxygen Saturation [94-100 %] 100 % (06/02/22 9:40 AM) Pulse Rate [55-90 bpm] 110 bpm *H* (06/02/22 9:40 AM) Body Mass Index [18.5-24.99 kg/m2] 33.52 kg/m2 *>HHI* (06/02/22 9:40 AM) Blood Pressure [90-138/55-84 mm Hg] 113/ 66mm Hg (06/02/22 9:40 AM) Mode of Delivery (Oxygen) Room air (06/02/22 9:40 AM) Blood pressure sites Arm, left (06/02/22 9:40 AM) Weight Obtained Via Standing scale (06/02/22 9:40 AM) Social History Social History Type Response Smoking Status Never smoker entered on: 10/02/14 Sex Cardiology Outpatient Note * Hollie MCKINNON, Parul Hernandez: PERFORM Event Display: Cardiology Note Office Authored Date: Patient: ??DAINA ARENAS ? Age:??31 Years?Sex:??Female?:??1990?? Patient Hx Cardiology Shared Clinical Summary # Asthma mild # Ankylosing spondylitis (2019) lower back pain # Anxiety/Depression # Anemia with iron infusion History of Present Illness/Interval History 31 yo female who is 29 weeks gestation who is here for orthostatic type sx. She does have a historyof passing out in the heat in the past. She denies chest pain, GIL, PND, orthopnea, significant peripheral edema. She has some intermittent palpitations that are fleeting. PVC is seen on ECG today here in the office. She is able to lay flat without presyncope. No additional sx at this time. She didlose 90 pounds from gastric sleeve. She has anemia and did receive iron infusion recently. ?? PMHX: gastric sleeve 2019 tonsillectomy CCY Hernia repair uterine fibroid removal Ankylosing spondylitis ?? FHX: premature CAD MGF and PGF ?? SHX: disabled from , no tob, no caffeine. no alcohol Review of Systems Negative: Constitutional, Eye, Skin, Head/Neck, ENMT, Respiratory, Cardio, Gastrointestinal, Breast, Gynecologic, Genitourinary, Endocrine, Musculoskeletal, Immunologic, Hematologic, Lymphatic, Neurologic, Psych reviewed and negative except as noted: headaches, weight loss after gastric sleeve, asth ma sx controlled, GERD, morning sickness, constipation, diarrhea, joint pain, depression, anxiety Physical Exam Vitals & Measurements AR:??110?? BP:??113/66?? SpO2:??100%?? HT:??160??cm?? WT:??85.8??kg?? BMI:??33.52?? Weight lb/oz: 189 lb 2 oz General:??In no acute distress, orthostatics in the office are borderline positive HEENT:??Sclerae anicteric, mucous membranes moist Cardiovascular:?Regular rhythm, mildly tachycardic normal first and second heart sounds.?No murmurs or gallops.?No JVP??Respiratory:?Clear to auscultation all lung manrique??GI: gravid Extremities: Warm,??noedema Neuro:??Nonfocal??Psych: Alert and oriented with appropriate affect. ?? ECG in the office today with ST at 110 bpm, ET, normal intervals, no ischemia ECHO reviewed and is normal, aortic valve is normal Assessment/Plan 1.??Palpitation associated with PVC seen here in the office on ECG, Echo is normal. HR does increase transiently tothe 125 range with change in position but settles quickly. No med at this time. ?? Orthostasis During with normal echo, suggest increase fluid intake, compression stockings. No indication for meds at this time. Ordered: ECG 12 Lead ?? I will see her back in the spring or sooner if needed, Total Time Spent I personally spent a total of??40 minutes, including both emzu-rr-mleu and wpi-fqhn-rr-face time onthe date of the encounter, addressing the above diagnoses. Medical Decision Making LOW - based on 2 or more self-limited or minor problems, 1 stable chronic illness or 1 acute, uncomplicated illness or injury; ext note / test / order = 2, OR requiring an independent historian(s); and/or Low risk of morbidity from add'l management Allergies Other Environmental Allergy Remicade Home Medications Albuterol (Eqv-ProAir HFA) 90 mcg/inh inhalation aerosol, INHALE 2 PUFFS INTO THE LUNGS EVERY 4 HOURS NEEDED FOR COUGH OR WHEEZING Albuterol 0.083% inhalation selena Blood pressure cuff, See Instructions, Use to check blood pressure; dx: hypotension Breo Ellipta 100 mcg-25 mcg/inh inhalation powder, 1 puffs, Inhalation, Daily, 1 refills Certolizumab, Subcutaneous, 1 Refill(s), Inject into the skin. famotidine 20 mg oral tablet, See Instructions, TAKE 1 TABLET BY MOUTH TWICE DAILY NEEDED FOR REFLUX AND HEARTBURN Home Blood Pressure Monitor, See Instructions, Use to check blood pressure as directed. Dx: hypotension hydrOXYzine hydrochloride 10 mg oral tablet, TAKE 1 TABLET BY MOUTH 3 TO 4 TIMES DAILY NEEDED FOR ANXIETY mirtazapine 15 mg oral tablet, 1/2 tab PO BID promethazine 25 mg oral tablet, TAKE 1 TABLET BY MOUTH EVERY 6 HOURS NEEDED FOR NAUSEA pyridoxine 25 mg oral tablet, TAKE 1 TABLET BY MOUTH FOUR TIMES DAILY BEFORE MEALS AND AT NIGHT Unisom 25 mg oral tablet, TAKE 1 TABLET BY MOUTH EVERY NIGHT AT BEDTIME NEEDED WesTab Plus oral tablet, TAKE 1 TABLET BY MOUTH EVERY DAY Lab Results Cardiology Labs Sodium: 135 mmol/L (05/12/22) Potassium: 4.1 mmol/L (05/12/22) Chloride: 102 mmol/L (05/12/22) Bicarbonate Level:??21 mmol/L??Low (05/12/22) Glucose Level:??69 mg/dL??Low (05/12/22) BUN: 6 mg/dL (05/12/22) Creatinine-Blood: 0.5 mg/dL (05/12/22) Calcium: 8.8 mg/dL (05/12/22) Protein, Total: 6.4 Gm/dL (05/12/22) Albumin: 3.8 Gm/dL (05/12/22) Alkaline Phosphatase: 85 units/L (05/12/22) AST (SGOT): 13 units/L (05/12/22) ALT (SGPT): 11 units/L (05/12/22) Bilirubin, Total: 0.2 mg/dL (05/12/22) Diagnostic Impression Echo Echocardiogram - Complete ?? 10:29:30 Summary The left ventricular size is normal. Left ventricular wall thickness is normal. The LV systolic function is normal. The left ventricular ejection fraction is 60-65 %. There are no definite regional wall motion abnormalities detected. Normal diastolic function. ?? The left atrium is upper limit of normal in size. ?? The right ventricle is normal in size and function. ?? The right atrium is normal in size. ?? Comparison No prior study available for comparison. ?? Signature ?? Signed By: Alise MCKINNON, Odette Su Problem List/Past Medical History Ongoing Allergic rhinitis Ankylosing spondylitis; Dr Brady at [facility] Anxiety Asthma Attention deficit hyperactivity disorder Bulimia nervosa Chronic low back pain; Dr Sanders Depression, major, recurrent Fibromyalgia GERD (gastroesophageal reflux disease) Headache; Dr Flowers History of bariatric surgical procedure - sleeve gastrectomy 08/31 Iron deficiency anemia Kidney stone Leukocytosis; seen by [facility] in 2016 Nausea and vomiting Obese class I Obsessive-compulsive disorder Obstructive sleep apnea syndrome Palpitation Varicella non-immune Historical Asthma Chronic back pain Cyst of uterine adnexa Degeneration of lumbosacral intervertebral disc Nausea Pain in pelvis Vitamin D deficiency Procedure/Surgical History Excision fibroid: 2021 Laparoscopic sleeve gastrectomy, with subsequent revision: 2019 Cholecystectomy: 11/21/18 Kidney stone removal Tonsillectomy and adenoidectomy Repair of umbilical hernia Social History Alcohol Use: Current. Frequency: 1-2 times per year., 08/31/2018 Home/Environment Living situation: Home/Independent. Lives with: lives with parents., 04/26/2020 Nutrition/Health Diet: Regular. Other: restrictive anorexia, gastric sleeve 08/2019. Takes in 800 anant per day per patient. Feels highly stressed: Yes., 04/26/2020 Sexual Sexually involved in last 6 months: Yes. Gender identity: Identifies as female. Self described orientation: Straight or heterosexual. Preferred pronoun: She/her., 04/26/2020 Substance Abuse Use: Current. Type: Marijuana. Frequency: Daily., 08/31/2018 Tobacco Never smoker, 10/02/2014 Family History Mother: Depression; Hypertension Father: Crohn's disease; Depression; Hypertension Sister: Depression Mat. Grandfather: Prostate cancer Aunt: Breast cancer Note * Coni Yee: PERFORM, SIGN, VERIFY Event Display: Patient Education/Instruction Authored Date: [id number] [facility] *ARmp Hrt Vas Off Clinical Summary Name DAINA ARENAS Age 31 Years 1990 PCP Antonio MCKINNON, Cassius PCP Visit Date 06/02/2022 08:54:00 Additional Instructions: Scheduled Appointments?? Future Appointments ?No Future Appointments Scheduled Follow-Up Instructions ?? With: Address: When: Parul Browne [address] [place] [id number] [facility] () Within 4 months Diagnosis Palpitations; Orthostatic hypotension Medications: Please continue your medications until treatment is completed or stopped by your provider. Discuss any questions related to medications with your provider. Medications to Continue with No Changes These medications were not printed or sent to your pharmacy Albuterol (Albuterol (Eqv-ProAir HFA) 90 mcg/inh inhalation aerosol) INHALE 2 PUFFS INTO THE LUNGS EVERY 4 HOURS NEEDED FOR COUGH OR WHEEZING. Next Dose: Albuterol (Albuterol 0.083% inhalation selena) Next Dose: Certolizumab Subcutaneous, 1 Refill(s), Inject into the skin.. Next Dose: Doxylamine (Unisom 25 mg oral tablet) TAKE 1 TABLET BY MOUTH EVERY NIGHT AT BEDTIME NEEDED. Next Dose: Durable Medical Equipment (Blood pressure cuff) Use to check blood pressure; dx: hypotension. Refills: 0. Next Dose: Durable Medical Equipment (Home Blood Pressure Monitor) Use to check blood pressure as directed. Dx: hypotension. Refills: 0. Next Dose: Famotidine (famotidine 20 mg oral tablet) TAKE 1 TABLET BY MOUTH TWICE DAILY NEEDED FOR REFLUX AND HEARTBURN. Refills: 0. Next Dose: fluticasone-vilanterol (Breo Ellipta 100 mcg-25 mcg/inh inhalation powder) 1 puff(s) Inhalation Daily. Refills: 1. Next Dose: HydrOXYzine (hydrOXYzine hydrochloride 10 mg oral tablet) TAKE 1 TABLET BY MOUTH 3 TO 4 TIMES DAILYAS NEEDED FOR ANXIETY. Next Dose: Mirtazapine (mirtazapine 15 mg oral tablet) 1/2 tab PO BID. Next Dose: Multivitamin, (WesTab Plus oral tablet) TAKE 1 TABLET BY MOUTH EVERY DAY. Next Dose: Promethazine (promethazine 25 mg oral tablet) TAKE 1 TABLET BY MOUTH EVERY 6 HOURS NEEDED FOR NAUSEA. Next Dose: Pyridoxine (pyridoxine 25 mg oral tablet) TAKE 1 TABLET BY MOUTH FOUR TIMES DAILY BEFORE MEALS AND AT NIGHT. Next Dose: Allergy Info:?? Other Environmental Allergy; Remicade Medications Given This Visit Future Orders ?No future orders Vital Signs Height 160 cm Weight 85.8 kg BMI 33.52 kg/m2 Blood Pressure 113 mm Hg/66 mm Hg Temperature Pulse Rate 110 bpm Respiratory Rate 02 Sat Mode of Delivery 100 %/Room air You can now view a summary of your hospital visit from the comfort of your home through a free online portal called PAK. PAK is a website that allows you to securely view your medical information including discharge summary, medications and follow-up visits. ??You can alsosend a secure electronic message to your doctor???s office to request appointments, renew medications or just ask a question. You can enroll at [email or web address] or register during your next office visit. Disclaimer:?? The information provided is of a general nature and is intended to be used in conjunction with the recommendations and advice of your health care practitioner. ??Every effort has been made to ensure that the information provided is accurate and complete at the time it is provided to you however, as your needs change, or, as new ??information becomes available, different or additional instructions may be required. If you have questions, please consult with your primary care provider or pharmacist, as appropriate. ??This information is not intended to serve as substitution for assessment and evaluation by a qualified health care provider. If you do not have a primary care provider, you may find a [facility] provider by calling [facility] Link at [phone]. For information about the plan of care including goals and instructions for your diagnosis, please see the patient education orders section of this document. Patient Education Materials?? The content of this educational material or handout may have been modified, supplemented, or adapted from its original content and format to support your individualized medical care. Patient Care team information Care Team Personnel Name: Cassius Alvarez MD Position: [facility] Primary Care Physician Member Role: PCP Address: Address: [address] [place] [id number] Name: Rosalva Fletcher Position: [facility] Outreach Member Role: Lifetime Consulting Physician Care Team Related Persons Name: MERCED ARENAS Address: [address] [address] Name: KALEY ARENAS Address: [address] [address]
--- OUTSIDE RECORDS SUMMARY | 2024-03-16 11:44 | XMS_ITS | Continuity of Care Document ---
Author Organization [facility] Address [address] [place] [address]- Care Team Providers Care Application Release Manager Name Role Phone Cassius Alvarez MD Primary Care Physician Encounter [facility] Date(s): 06/05/22 - 07/05/22 [facility] [address] [place], [place] [address] Allergies, Adverse Reactions, Alerts Substance Reaction [...] influenza virus vaccine, inactivated 04/19/09 [place] rded [id number] 12y+ bivalent booster vax 04/18/22 Recorded SARS-CoV-2 mRNA (ijkibpx-zfbo-ctdkc) vax 10/09/21 Recorded SARS-CoV-2 (COVID-19) mRNA BNT-162b2 [...] EST, Inhalation Solution, [facility]/pharmacy #[id number], Partial fill upon patient request if the [...] 1 Refills, Maintenance, 05/18/22 13:39:00 EST, Inhaler, [facility]/pharmacy #[id number], Partial fill upon patient [...] Replace Required Details, Route to Pharmacy Electronically, [facility] #[id number],... Start Date: 04/29/22 Status: Ordered Home Blood [...] 08/25/17 Active Ankylosing spondylitis; Dr Brady at [facility] Confirmed 03/31/13 Active Anxiety Confirmed 07/04/14 [...] Team Personnel Name: Cassius Alvarez MD Position: [facility] Primary Care Physician Member Role: PCP Address: Address: [address] [place] [id number] Name: Rosalva Fletcher Position: [facility] Outreach Member Role: Lifetime Consulting Physician Care Team Related Persons Name: MERCED ARENAS Address: home [address] [place] [id number] Name: KALEY ARENAS Address: home [address] [place] [address]
--- OUTSIDE RECORDS SUMMARY | 2024-03-16 11:44 | XMS_ITS | Continuity of Care Document ---
Author Organization [facility] Address [address] [place] [address]- Care Team Providers Care Director Of Community Education Name Role Phone Cassius Alvarez MD Primary Care Physician Encounter [facility] [place] Date(s): 04/14/22 - 05/14/22 [facility] [address] [place], [place] [address] Allergies, Adverse Reactions, Alerts Substance Reaction [...] influenza virus vaccine, inactivated 04/19/09 [place] rded [id number] 12y+ bivalent booster vax 04/18/22 Recorded SARS-CoV-2 mRNA (fehizbd-axtu-goqgd) vax 10/09/21 Recorded SARS-CoV-2 (COVID-19) mRNA BNT-162b2 [...] 11:29:00 EDT Start Date: 02/02/22 Status: Ordered Breo Ellipta 100 mcg-25 mcg/inh inhalation powder 1 puffs, Inhalation, Daily, 0 Refills, Maintenance, 02/02/22 11:27:00 EDT, Partial fill upon patient request if the prescription is for a schedule II opioid drug. Start Date: 02/02/22 Status: Ordered Certolizumab Subcutaneous, 1 Refill(s), Inject [...] Replace Required Details, Route to Pharmacy Electronically, [facility] #[id number],... Start Date: 04/29/22 Status: Ordered hydrOXYzine hydrochloride [...] 08/25/17 Active Ankylosing spondylitis; Dr Brady at [facility] Confirmed 03/31/13 Active Anxiety Confirmed 07/04/14 [...] 07/04/14 Active Leukocytosis; seen by [facility] in 2016 Confirmed 08/15/15 Active Nausea and vomiting Confirmed Active Obese class I Confirmed Active Obsessive-compulsive disorder Confirmed 07/04/14 Active Obstructive sleep apnea syndrome Confirmed 10/08/14 Active Depression, major, recurrent Confirmed 07/04/14 Active Varicella non-immune Confirmed 01/27/22 Active Social History Social History Type Response Smoking Status Never smoker entered on: 10/02/14 Sex Patient Care team information Personnel Name: Cassius Alvarez MD Address: Address: [address], [place] [address]
--- OUTSIDE RECORDS SUMMARY | 2024-03-16 11:44 | XMS_ITS | Continuity of Care Document ---
Author Organization [facility] Address [address] [address]- Care Team Providers Care Operations Professional Name Role Phone Cassius Alvarez MD Primary Care Physician [place] [facility] [place] 08/13/22 - 10/01/22 [place] [id number] [address]- Attending Physician: Parul Browne MD Admitting Physician: [...] influenza virus vaccine, inactivated 04/19/09 [place] rded [id number] 12y+ bivalent booster vax 04/18/22 Recorded SARS-CoV-2 mRNA (cfzphpb-ppeu-botnb) vax 10/09/21 Recorded SARS-CoV-2 (COVID-19) mRNA BNT-162b2 [...] Refills, Maintenance, 06/24/22 9:28:00 EST, Inhalation Solution, [facility]/pharmacy #[id number], Partial fill upon patient request [...] AND HEARTBURN, # 180 tablet, Refills 0, Tot. Refills 0, Maintenance, 09/10/22 12:18:00 EST, Instructions Replace Required Details, Route to Pharmacy Electronically, [facility] Start Date: 09/10/22 Status: Ordered hydrOXYzine hydrochloride 10 mg oral [...] rhinitis Confirmed 08/25/17 Active Ankylosing spondylitis; Dr Bardy at [facility] Confirmed 03/31/13 Active Anxiety Confirmed 07/04/14 [...] Team Personnel Name: Cassius Alvarez MD Position: [facility] Primary Care Physician Member Role: PCP Address: Address: [address] [place] [address] Name: Rosalva Fletcher Position: [facility] Outreach Member Role: Lifetime Consulting Physician Care Team Related Persons Name: MERCED ARENAS Address: home [address] [place] [id number] Name: KALEY ARENAS Address: home [address] [place] [address]
--- OUTSIDE RECORDS SUMMARY | 2024-03-16 11:44 | XMS_ITS | Continuity of Care Document ---
Author Organization [facility] Address [address] [place] [address]- Care Team Providers Care Vice President Of Human Resources Name Role Phone Cassius Alvarez MD Primary Care Physician [place] [facility] [place] 04/08/22 - 04/15/22 [facility] [address] [place], [place] [address] Encounter Diagnosis Sinusitis(Discharge Diagnosis) - 04/08/22 Attending Physician: Cassius Alvarez MD Allergies, Adverse Reactions, Alerts Substance Reaction Severity Status Remicade Active Immunizations Given and Recorded Vaccine Date Status Refusal Reason SARS-CoV-2 mRNA (cxsrqqx-qjkv-xtagx) vax 10/09/21 Recorded SARS-CoV-2 (COVID-19) mRNA BNT-162b2 vac 05/17/21 Recorded SARS-CoV-2 (COVID-19) mRNA BNT-162b2 vac 10/15/20 Recorded SARS-CoV-2 (COVID-19) mRNA BNT-162b2 vac 09/24/20 Recorded influenza virus vaccine, inactivated 05/01/21 [place] rded [...] influenza virus vaccine, inactivated 04/19/09 [place] rded tetanus-diphtheria toxoids (Td) 11/26/20 Recorded tetanus-diphtheria toxoids [...] Status: Ordered famotidine 20 mg oral tablet 20 mg, 1, tablet, By Mouth, 2 times a day, PRN, TAKE 1 TABLET BY MOUTH TWICE DAILY NEEDED FOR HEARTBURN, # 180 tablet, Refills 0, Tot. Refills 0, Maintenance, reflux, 02/04/22 13:40:00 EDT, Route to Pharmacy Electronically, [facility] #[id number]... Start Date: 02/04/22 Status: Ordered hydrOXYzine hydrochloride 10 mg oral [...] 08/25/17 Active Ankylosing spondylitis; Dr Brady at [facility] Confirmed 03/31/13 Active Anxiety Confirmed 07/04/14 [...] heme in 2016 Confirmed 08/15/15 Active Nausea Confirmed Active Nausea and vomiting Confirmed Active Obsessive-compulsive disorder Confirmed 07/04/14 Active Obstructive sleep apnea syndrome Confirmed 10/08/14 Active Depression, major, recurrent Confirmed 07/04/14 Active Varicella non-immune Confirmed 01/27/22 Active Diagnosis Diagnosis Type Effective Dates Health Status Clini anant Service Informant Sinusitis Discharge Diagnosis 04/08/22 Social History Social History Type Response Smoking Status Never smoker entered on: 10/02/14 Sex Patient Care team information Personnel Name: Cassius Alvarez MD Address: Address: [address] [place] [address]
--- OUTSIDE RECORDS SUMMARY | 2024-03-16 11:44 | XMS_ITS | Continuity of Care Document ---
Author Organization [facility] ter Address [address] [place] [address]- Care Team Providers Care Labor Relations Specialist Name Role Phone Cassius Alvarez MD Primary Care Physician [phone] [place] [facility] [place] Date(s): 03/25/22 - 03/25/[address] [address] Discharge Disposition: A-D/C Home Attending Physician: Kenneth Oliveros MD Admitting Physician: Kenneth Oliveros MD Referring Physician: Kenneth Oliveros MD Allergies, Adverse Reactions, Alerts Substance Reaction Severity Status Remicade Active Immunizations Given and Recorded Vaccine Date Status Refusal Reason SARS-CoV-2 mRNA (fwomgio-rfuz-vwcjr) vax 10/09/21 Recorded SARS-CoV-2 (COVID-19) mRNA BNT-162b2 [...] 02/04/22 13:40:00 EDT, Route to Pharmacy Electronically, [facility]07... Start Date: 02/04/22 Status: Ordered hydrOXYzine [...] Date: 02/02/22 Status: Ordered Problem List Condition Effective Dates Status Health Status Inform ant Allergic rhinitis(Confirmed) 08/25/17 Active Ankylosing spondylitis; Dr Yaron laughlin at [facility](Confirmed) 03/31/13 Active Anxiety(Confirmed) 07/04/14 Active Asthma(Confirmed) 07/04/14 Active Attention deficit hyperactiv ity disorder(Confirmed) 07/04/14 Active Bulimia nervosa(Confirmed) 06/04/21 Active Chronic low back pain; Dr Sanders(Confirmed) 09/12/14 Active Fibromyalgia(Confirmed) 09/12/14 Active GERD (gastroesophageal reflu x disease)(Confirmed) Active Headache; Dr Flowers(Confirmed) 07/24/11 Active History of bariatric surgica l procedure - sleeve gastrectomy 08/31(Confirmed) 08/29/19 Active Iron deficiency anemia(Confirmed) 12/01/16 Active Kidney stone(Confirmed) 07/04/14 Active Leukocytosis; seen by mauricio brady 2015(Confirmed) 08/15/15 Active Nausea(Confirmed) Active Nausea and vomiting(Confirmed) Active Obsessive-compulsive disorder(Confirmed) 07/04/14 Active Obstructive sleep apnea syndrome(Confirmed) 10/08/14 Active Depression, major, recurrent(Confirmed) 07/04/14 Active Varicella non-immune(Confirmed) 01/27/22 Active Vital Signs Most recent to oldest [Reference Range]: 1 Weight 80.0 kg (03/25/22 3:13 PM) Oxygen Saturation [94-100 %] 100 % (03/25/22 3:13 PM) Pulse Rate [55-90 bpm] 112 bpm *H* (03/25/22 3:13 PM) Blood Pressure [90-138/55-84 mm Hg] 139/ 94mm Hg *H* (03/25/22 3:13 PM) Respiratory Rate [16-30 br/min] 17 br/mi n (03/25/22 3:13 PM) Temperature [96.8-100.4 DegF] 98.2 DegF (03/25/22 3:13 PM) Blood pressure sites Arm, right (03/25/22 3:13 PM) Temperature Route Oral (03/25/22 3:13 PM) Weight Obtained Via Standing scale (03/25/22 3:13 PM) Social History Social History Type Response Smoking Status Never smoker entered on: 10/02/14 Sex Care Team Personnel Name: Cassius Alvarez MD Address: [address]
--- OUTSIDE RECORDS SUMMARY | 2024-03-16 11:44 | XMS_ITS | Continuity of Care Document ---
Author Organization [facility] ter Address [address] [place] [address]- Care Team Providers Care Baking Assistant Name Role Phone Cassius Alvarez MD Primary Care Physician [phone] Encounter [facility] [place] Date(s): 04/15/22 - 04/15/[address] [address] Discharge Disposition: A-D/C Home Attending Physician: Kenneth Oliveros MD Admitting Physician: Kenneth Oliveros MD Referring Physician: Kenneth Oliveros MD Allergies, Adverse Reactions, Alerts Substance Reaction Severity Status Remicade Active Immunizations Given and Recorded Vaccine Date Status Refusal Reason SARS-CoV-2 mRNA (liteeij-sawm-gdgdb) vax 10/09/21 Recorded SARS-CoV-2 (COVID-19) mRNA BNT-162b2 [...] 02/04/22 13:40:00 EDT, Route to Pharmacy Electronically, [facility] #07... Start Date: 02/04/22 Status: Ordered hydrOXYzine [...] 07/04/14 Active Varicella non-immune Confirmed 01/27/22 Active Vital Signs Most recent to oldest [Reference Range]: 1 Weight 93.5 kg (04/15/22 9:36 AM) Oxygen Saturation [94-100 %] 100 % (04/15/22 9:54 AM) Blood Pressure [90-138/55-84 mm Hg] 112/ 70mm Hg (04/15/22 9:54 AM) Respiratory Rate [16-30 br/min] 18 br/mi n (04/15/22 9:54 AM) Temperature [96.8-100.4 DegF] 98.2 DegF (04/15/22 9:36 AM) Mode of Delivery (Oxygen) Room air (04/15/22 9:54 AM) Blood pressure sites Arm, right (04/15/22 9:54 AM) Temperature Route Oral (04/15/22 9:36 AM) Weight Obtained Via Standing scale (04/15/22 9:36 AM) Social History Social History Type Response Smoking Status Never smoker entered on: 10/02/14 Sex Patient Care team information Personnel Name: Cassius Alvarez MD Address: Address: [address] [place] [address]
--- OUTSIDE RECORDS SUMMARY | 2024-03-16 11:44 | XMS_ITS | Continuity of Care Document ---
Author Organization [facility] Address [address] [place] [address]- Care Team Providers Care Market Research Analyst Name Role Phone Cassius Alvarez MD Primary Care Physician Encounter [facility] [place] Date(s): 11/16/22 - 12/16/22 [facility] [address] [place] [address]- [place] Allergies, Adverse Reactions, Alerts Substance Reaction [...] influenza virus vaccine, inactivated 04/19/09 [place] rded [id number] 12y+ bivalent booster vax 04/18/22 Recorded SARS-CoV-2 mRNA (rqtalnf-vanl-ubppk) vax 10/09/21 Recorded SARS-CoV-2 (COVID-19) mRNA BNT-162b2 [...] Refills, Maintenance, 06/24/22 9:28:00 EST, Inhalation Solution, [facility]/pharmacy #[id number], Partial fill upon patient request if the prescription is for a schedule II... Start Date: 06/24/22 Status: Ordered Breo Ellipta 200 mcg-25 mcg/inh inhalation powder 1 puffs, Inhalation, Daily, # 1 each, 0 Refills, Maintenance, 06/24/22 9:37:00 EST, Powder, Partialfill upon patient request if the prescription is for a schedule II opioid drug. Start Date: 06/24/22 Status: Ordered busPIRone 5 mg oral tablet 5 mg, 1, tablet, By Mouth, 2 times a day, Refills [...] a day, PRN, # 180 tablet, Refills 0, Maintenance, NEEDED FOR REFLUXOR HEARTBURN, 11/28/22 16:43:00 EDT, Route to Pharmacy Electronically, [facility] #[id number],160, cm, 10/07/22 14:33:00 EDT, Height, 85.4, kg, 1... Start Date: 11/28/22 Status: Ordered hydrOXYzine hydrochloride 10 mg oral tablet TAKE 1 TABLET BY MOUTH 3 TO 4 TIMES DAILY NEEDED FOR ANXIETY Start Date: 02/02/22 Status: Ordered mirtazapine 15 mg oral tablet See Instructions, 2 tab PO QD Start Date: 02/02/22 Status: Ordered Norethindrone Tablet 5 mg, By Mouth, Daily, Refills 0, Maintenance, 10/07/22 14:35:00 EDT, Partial fill upon patient request if the prescription is for a schedule II opioid drug. Start Date: 10/07/22 Status: Ordered promethazine 25 mg oral tablet TAKE 1 TABLET BY MOUTH EVERY 6 HOURS NEEDED FOR NAUSEA Start Date: 02/02/22 Status: Ordered pyridoxine 25 mg oral tablet TAKE 1 TABLET BY MOUTH FOUR TIMES DAILY BEFORE MEALS AND AT NIGHT Start Date: 02/02/22 Status: Ordered Risperidone = 0.5 mg, 0 Refills, Maintenance, 12/08/22 7:54:00 EDT, Partial fill upon patient request if the prescription is for a schedule II opioid drug. Start Date: 12/08/22 Status: Ordered sodium chloride 1 gm oral tablet = 1,000 mg, By Mouth, 2 times a day, # 60 tablet, 3 Refills, Maintenance, 10/07/22 15:08:00 EDT, [facility] #[id number], Partial fill upon patient request if the prescription is for a schedule II opioid drug., 160, cm, 10/07/22 14:33:00 EDT, [facility]... Start Date: 10/07/22 Status: Ordered Unisom 25 mg oral tablet TAKE 1 TABLET BY MOUTH EVERY NIGHT AT BEDTIME NEEDED Start Date: 02/02/22 Status: Ordered WesTab Plus oral tablet TAKE 1 TABLET BY MOUTH EVERY DAY Start Date: 02/02/22 Status: Ordered Problem List Condition Confirmation Course Effective Dates Status H ealth Status Informant Allergic rhinitis Confirmed 08/25/17 Active Ankylosing spondylitis; Dr Brady at [facility] Confirmed 03/31/13 Active Anxiety Confirmed [...] major, recurrent Confirmed 07/04/14 Active Severe obesity (BMI 35.0-39.9) with comorbidity Confirmed Active Varicella non-immune Confirmed 01/27/22 Active Social History Social History Type Response Smoking Status Never smoker entered on: 10/02/14 Sex Patient Care team information Care Team Personnel Name: Cassius Alvarez MD Position: [facility] Physician - Primary Care Member Role: PCP Address: Address: [address] [place] [id number] Name: Rosalva Fletcher Position: [facility] Outreach Member Role: Lifetime Consulting Physician Care Team Related Persons Name: MERCED ARENAS Address: [address] [address] Name: KALEY ARENAS Address: [address] [address]
--- OUTSIDE RECORDS SUMMARY | 2024-03-16 11:44 | XMS_ITS | Continuity of Care Document ---
Author Organization [facility] Address [address] [address]- Care Team Providers Care Admissions Dean Name Role Phone Cassius Alvarez MD Primary Care Physician [place] [facility] [place] 07/02/22 [place] [id number] [address]- Attending Physician: Padma Gandara Admitting Physician: Admtr, Ar8 Referring Physician: Admtr, Ar8 Allergies, Adverse Reactions, Alerts Substance Reaction Severity [...] influenza virus vaccine, inactivated 04/19/09 [place] rded [id number] 12y+ bivalent booster vax 04/18/22 Recorded SARS-CoV-2 mRNA (gobvvej-ztan-bcaps) vax 10/09/21 Recorded SARS-CoV-2 (COVID-19) mRNA BNT-162b2 [...] J45.909, # 100 each, 1 Refills, Maintenance, 12/14/22 9:28:00 EST, Inhalation Solution, [facility]/pharmacy #[id number], Partial fill upon [...] 1 Refills, Maintenance, 05/18/22 13:39:00 EST, Inhaler, [facility]/pharmacy #[id number], Partial fill upon [...] Replace Required Details, Route to Pharmacy Electronically, [facility] #[id number],... Start Date: 04/29/22 Status: Ordered Home Blood [...] stone Confirmed 07/04/14 Active Leukocytosis; seen by [facility] in 2015 Confirmed 08/15/15 Active Nausea [...] Team Personnel Name: Cassius Alvarez MD Position: [facility] Primary Care Physician Member Role: PCP Address: Address: [address] [place], [place] [id number] Name: Rosalva Fletcher Position: [facility] Outreach Member Role: Lifetime Consulting Physician Care Team Related Persons Name: MERCED ARENAS Address: [address] [address] Name: KALEY ARENAS Address: [address] [address]
--- OUTSIDE RECORDS SUMMARY | 2024-03-16 11:44 | XMS_ITS | Continuity of Care Document ---
Author Organization [facility] Address [address] [place] [address]- Care Team Providers Care Chip Frier Name Role Phone Cassius Alvarez MD Primary Care Physician Encounter [facility] [place] Date(s): 05/08/22 - 06/07/22 [facility] [address] [place], [place] [address] Allergies, Adverse Reactions, Alerts Substance [...] influenza virus vaccine, inactivated 04/19/09 [place] rded [id number]-XvI-7lFOB 12y+ bivalent booster vax 04/18/22 Recorded SARS-CoV-2 mRNA (omengih-hwoe-qpugg) vax 10/09/21 Recorded SARS-CoV-2 (COVID-19) mRNA BNT-162b2 [...] 1 Refills, Maintenance, 05/18/22 13:39:00 EST, Inhaler, [facility]/pharmacy #[id number], Partial fill upon patient request if [...] Replace Required Details, Route to Pharmacy Electronically, [facility] #[id number],... Start Date: 04/29/22 Status: Ordered Home Blood [...] stone Confirmed 07/04/14 Active Leukocytosis; seen by [facility] in 2015 Confirmed 08/15/15 Active Nausea and [...] Team Personnel Name: Cassius Alvarez MD Position: [facility] Primary Care Physician Member Role: PCP Address: Address: [address] [place] [address] Name: Rosalva Fletcher Position: [facility] Outreach Member Role: Lifetime Consulting Physician Care Team Related Persons Name: MERCED ARENAS Address: home [address] [place] [address] Name: KALEY ARENAS Address: home [address] [place] [address]
--- OUTSIDE RECORDS SUMMARY | 2024-03-16 11:44 | XMS_ITS | Continuity of Care Document ---
Author Organization [facility] Address [address] [place] [address]- Care Team Providers Care Custodian Name Role Phone Cassius Alvarez MD Primary Care Physician [place] [facility] [place]s): 01/30/22 - 03/01/22 [facility] [address] [place], [place] [address] [place] Allergies, Adverse Reactions, Alerts Substance Reaction Severity Status Remicade Active Immunizations Given and Recorded Vaccine Date Status Refusal Reason SARS-CoV-2 mRNA (uhajvss-lewa-nsycl) vax 10/09/21 Recorded SARS-CoV-2 (COVID-19) mRNA BNT-162b2 [...] 02/04/22 13:40:00 EDT, Route to Pharmacy Electronically, [facility] #07... Start Date: 02/04/22 Status: Ordered hydrOXYzine [...] Active Ankylosing spondylitis; Dr Yaron laughlin at [facility](Confirmed) 03/31/13 Active Anxiety(Confirmed) 07/04/14 Active Asthma(Confirmed) [...] recurrent(Confirmed) 07/04/14 Active Varicella non-immune(Confirmed) 01/27/22 Active Social History Social History Type Response Smoking Status Never smoker entered on: 10/02/14 Sex
--- OUTSIDE RECORDS SUMMARY | 2024-03-16 11:44 | XMS_ITS | Continuity of Care Document ---
Author Organization [facility] Address [address] [place] [address]- Care Team Providers Care Raisin Separator Operator Name Role Phone Cassius Alvarez MD Primary Care Physician En[place] [facility] [place] Date(s): 08/27/22 - 09/26/22 [facility] [address] [place], [place] [address] Allergies, Adverse Reactions, Alerts Substance Reaction [...] influenza virus vaccine, inactivated 04/19/09 [place] rded [id number]-ByV-[id number] 12y+ bivalent booster vax 04/18/22 Recorded SARS-CoV-2 mRNA (vuunhis-kerd-lfkvp) vax 10/09/21 Recorded SARS-CoV-2 (COVID-19) mRNA BNT-162b2 [...] Refills, Maintenance, 06/24/22 9:28:00 EST, Inhalation Solution, [facility]/pharmacy #[id number], Partial fill upon patient request if the [...] Active Ankylosing spondylitis; Dr Brady at [facility] Confirmed 03/31/13 Active Anxiety Confirmed 07/04/14 [...] Team Personnel Name: Cassius Alvarez MD Position: [facility] Primary Care Physician Member Role: PCP Address: Address: [address] [place] [address]- Name: Rosalva Fletcher Position: [facility] Outreach Member Role: Lifetime Consulting Physician Care Team Related Persons Name: MERCED ARENAS Address: home [address] [place] [address] Name: KALEY ARENAS Address: home [address] [place] [address]
--- OUTSIDE RECORDS SUMMARY | 2024-03-16 11:44 | XMS_ITS | Continuity of Care Document ---
Author Organization [facility] Address [address] [place] [address]- Care Team Providers Care Technology Infusion Specialist Name Role Phone Cassius Alvarez MD Primary Care Physician Encounter [facility] Date(s): 12/23/22 - 01/22/23 [facility] [address] [place], [place] [address] Allergies, Adverse Reactions, Alerts Substance [...] influenza virus vaccine, inactivated 04/19/09 [place] rded [id number]-[id number] 12y+ bivalent booster vax 04/18/22 Recorded SARS-CoV-2 mRNA (yrvfbth-ozdd-zethu) vax 10/09/21 Recorded SARS-CoV-2 (COVID-19) mRNA BNT-162b2 [...] 1 Refills, Maintenance, 12/22/22 8:57:00 EDT, Inhaler, [facility] #[id number], Partial fill upon patient request if the prescription is for a schedule II opio... Start Date: 12/22/22 Status: Ordered albuterol 0.083% inhalation solution 3 mL = 2.5 mg, Neb, Every 6 hours, PRN Wheezing/Shortness of Breath, J45.909, # 100 each, 1 Refills, Maintenance, 06/24/22 9:28:00 EST, Inhalation Solution, [facility]/pharmacy #[id number], Partial fill upon patient request if [...] 11/28/22 16:43:00 EDT, Route to Pharmacy Electronically, [facility] #[id number],160, cm, 10/07/22 14:33:00 EDT, Height, 85.4, kg, 1... Start Date: 11/28/22 Status: Ordered hydrOXYzine hydrochloride 10 mg oral tablet TAKE 1 TABLET BY MOUTH 3 TO 4 TIMES DAILY NEEDED FOR ANXIETY Start Date: 02/02/22 Status: Ordered Lexapro 10 mg oral tablet 1 tablet = 10 mg, By Mouth, Daily, # 30 tablet, 0 Refills, Maintenance, 12/22/22 8:57:00 EDT, Tablet, Partial fill upon patient request if the prescription is for a schedule II opioid drug. Start Date: 12/22/22 Status: Ordered mirtazapine 15 mg oral tablet [...] tablet, 3 Refills, Maintenance, 10/07/22 15:08:00 EDT, [facility] #[id number], Partial fill upon patient request if the prescription is for a schedule II opioid drug., 160, cm, 10/07/22 14:33:00 EDT, [facility]... Start Date: 10/07/22 Status: Ordered Unisom 25 [...] Active Ankylosing spondylitis; Dr Brady at [facility] Confirmed 03/31/13 Active Anxiety Confirmed [...] Team Personnel Name: Cassius Alvarez MD Position: [facility] Physician - Primary Care Member Role: PCP Address: Address: [address] [place] [address] Name: Rosalva Fletcher Position: [facility] Outreach Member Role: Lifetime Consulting Physician Care Team Related Persons Name: MERCED ARENAS Address: home [address] [place] [address] Name: KALEY ARENAS Address: home [address] [place] [address]
--- OUTSIDE RECORDS SUMMARY | 2024-03-16 11:44 | XMS_ITS | Continuity of Care Document ---
Author Organization [facility] Address [address] [place] [address]- Care Team Providers Care Oceanography Teacher Name Role Phone Cassius Alvarez MD Primary Care Physician [phone] Encounter [facility] Date(s): 12/18/22 - 01/17/23 [facility] [address] [place], [place] [address] Allergies, Adverse Reactions, Alerts [...] influenza virus vaccine, inactivated 04/19/09 [place] rded BOCD-NnY-2uEWJ 12y+ bivalent booster vax 04/18/22 Recorded SARS-CoV-2 mRNA (ahnxpof-jnmu-exazf) vax 10/09/21 Recorded SARS-CoV-2 (COVID-19) mRNA BNT-162b2 [...] 1 Refills, Maintenance, 12/22/22 8:57:00 EDT, Inhaler, [facility] #[id number], Partial fill upon patient request if the prescription is for a schedule II opio... Start Date: 12/22/22 Status: Ordered albuterol 0.083% inhalation solution 3 mL = 2.5 mg, Neb, Every 6 hours, PRN Wheezing/Shortness of Breath, J45.909, # 100 each, 1 Refills, Maintenance, 06/24/22 9:28:00 EST, Inhalation Solution, [facility]/pharmacy #[id number], Partial fill upon patient request [...] 11/28/22 16:43:00 EDT, Route to Pharmacy Electronically, [facility] #[id number],160, cm, 10/07/22 14:33:00 EDT, Height, 85.4, kg, [...] tablet, 3 Refills, Maintenance, 10/07/22 15:08:00 EDT, [facility] #[id number], Partial fill upon patient request if the [...] 08/25/17 Active Ankylosing spondylitis; Dr Brady at [facility] Confirmed 03/31/13 Active Anxiety Confirmed [...] MD Position: [facility] Physician - Primary Care Member Role: PCP Address: Address: [address] [place] [address] Name: Rosalva Fletcher Position: [facility] Outreach Member Role: Lifetime Consulting Physician Care Team Related Persons Name: MERCED ARENAS Address: home [address] [place] [address] Name: KALEY ARENAS Address: home [address] [place] [address]
--- OUTSIDE RECORDS SUMMARY | 2024-03-16 11:44 | XMS_ITS | Continuity of Care Document ---
Author Organization [facility] Address [address] [place] [address]- Care Team Providers Care Septic Tank Cleaner Name Role Phone Cassius Alvarez MD Primary Care Physician Encounter [facility] Date(s): 04/09/22 - 05/09/22 [facility] [address] [place], [place] [address] Allergies, Adverse Reactions, Alerts Substance Reaction [...] influenza virus vaccine, inactivated 04/19/09 [place] rded VMIM-CqD-0uWAO 12y+ bivalent booster vax 04/18/22 Recorded SARS-CoV-2 mRNA (nxdqapr-lxgo-jwroo) vax 10/09/21 Recorded SARS-CoV-2 (COVID-19) mRNA BNT-162b2 [...] Replace Required Details, Route to Pharmacy Electronically, [facility] #[id number],... Start Date: 04/29/22 Status: Ordered hydrOXYzine hydrochloride [...] 08/25/17 Active Ankylosing spondylitis; Dr Brady at [facility] Confirmed 03/31/13 Active Anxiety Confirmed 07/04/14 [...] Personnel Name: Cassius Alvarez MD Address: Address: [address] [place] [address]
--- OUTSIDE RECORDS SUMMARY | 2024-03-16 11:44 | XMS_ITS | Continuity of Care Document ---
Author Organization [facility] Address [address] [place] [address]- Care Team Providers Care Algebra Tutor Name Role Phone Cassius Alvarez MD Primary Care Physician [phone] Encounter [facility] Date(s): 05/13/23 - 06/12/23 [facility] [address] [place] [address]- [place] Allergies, Adverse Reactions, Alerts Substance Reaction Severity Status sodium chloride Active Remicade Active Other Environmental Allergy 1 Active 1seasonal Immunizations Given and Recorded Vaccine Date Status Refusal Reason influenza virus vaccine, inactivated 1 05/19/23 Gi [...] influenza virus vaccine, inactivated 04/19/09 [place] rded [id number] 12y+ bivalent booster vax 04/18/22 Recorded SARS-CoV-2 mRNA (yqqagum-jwlp-woock) vax 10/09/21 Recorded SARS-CoV-2 (COVID-19) mRNA BNT-162b2 [...] Recorded 1Result Comment: [facility] 99357-697-17 Medications acetaminophen-HYDROcodone 325 mg-5 mg oral tablet 1 tablet, By Mouth, Daily at bedtime, PRN Pain , Moderate, # 28 tablet, 0 Refills, Maintenance, 03/19/23 16:43:00 EDT, [facility] #[id number], Partial fill upon patient request if the prescription is for a schedule II opioid drug., 1 tablet By Mo... Start Date: 03/19/23 Status: Ordered Albuterol (Eqv-ProAir HFA) 90 mcg/inh inhalation aerosol 2 puffs, Inhalation, Every 4 hours, PRN cough, shortness of breath, wheezing, # 8.5 Gm, 1 Refills, Maintenance, 12/22/22 8:57:00 EDT, Inhaler, [facility] #[id number], Partial fill upon patient request if the prescription is for a schedule II opio... Start Date: 12/22/22 Status: Ordered albuterol 0.083% inhalation solution 3 mL = 2.5 mg, Neb, Every 6 hours, PRN Wheezing/Shortness of Breath, J45.909, # 100 each, 1 Refills, Maintenance, 06/24/22 9:28:00 EST, Inhalation Solution, [facility]/pharmacy #[id number], Partial fill upon patient [...] opioid drug. Start Date: 02/08/22 Status: Ordered cyclobenzaprine 5 mg oral tablet 1 tablet = 5 mg, By Mouth, 3 times a day, PRN Spasm, # 90 tablet, 0 Refills, Maintenance, 02/02/23 11:13:00 EDT, [facility] #[id number], Partial fill upon patient request if the prescription is for a schedule II opioid drug., 160, cm, 02/02/23 10... Start Date: 02/02/23 Status: Ordered famotidine 20 mg oral tablet 1, tablet, By Mouth, 2 times a day, PRN, # 180 tablet, Refills 1, Maintenance, NEEDED FOR REFLUXOR HEARTBURN, 05/23/23 8:05:00 EST, Route to Pharmacy Electronically, [facility] #[id number], 160, cm, 04/27/23 10:14:00 EDT, Height, 85.4, kg, 11... Start Date: 05/23/23 Status: Ordered hydrOXYzine hydrochloride 10 mg oral tablet TAKE 1 TABLET BY MOUTH 3 TO 4 TIMES DAILY NEEDED FOR ANXIETY Start Date: 02/02/22 Status: Ordered Lexapro 10 mg oral tablet 1.5 tablet = 15 mg, By Mouth, Daily, 15 mg, 0 Refills, Maintenance, 04/27/23 9:57:00 EDT, Partial fill upon patient request if the prescription is for a schedule II opioid drug. Start Date: 04/27/23 Status: Ordered metoprolol 25 mg oral tablet, extended release 25 mg, 1, tablet, By Mouth, Daily, # 30 tablet, Refills 5, Tot. Refills 5, Maintenance, 04/27/23 10:17:00 EDT, Route to Pharmacy Electronically, [facility] #[id number], Partial fill upon patientrequest if the prescription is for a schedule II op... Start Date: 04/27/23 Status: Ordered mirtazapine 15 mg oral tablet [...] FOR NAUSEA Start Date: 02/02/22 Status: Ordered Risperidone = 0.5 mg, 0 Refills, Maintenance, 12/08/22 7:54:00 EDT, Partial fill upon patient request if the prescription is for a schedule II opioid drug. Start Date: 12/08/22 Status: Ordered Tall Cam Walker Boot Right Tall Cam Walker Boot Right, See Instructions, # 1 each, Refills 0, Tot. Refills 0, Maintenance, dx:ambulatory dysfunction; ligamentous strain, inversion ankle sprain, 05/06/23 17:17:00 EDT, Supply Start Date: 05/06/23 Status: Ordered Problem List Condition Confirmation Course Effective Dates Status H ealth Status Informant Allergic rhinitis Confirmed 08/25/17 Active Ankylosing spondylitis; Dr Brady at [facility] Confirmed 03/31/13 Active Anxiety Confirmed 07/04/14 Active Asthma Confirmed 07/04/14 Active Attention deficit hyperactivity disorder Confirmed 07/04/14 Active Bulimia nervosa Confirmed 06/04/21 Active Chronic low back pain; Dr Sandres Confirmed 09/12/14 Active Fibromyalgia Confirmed 09/12/14 Active GERD (gastroesophageal reflux disease) Confirmed Active Headache; Dr Flowers Confirmed 07/24/11 Active History of bariatric surgical procedure - sleeve gastrectomy 08/31 Confirmed 08/29/19 Active Hydronephrosis, [facility] 07/02 Confirmed Active Iron deficiency anemia Confirmed 12/01/16 Active Kidney stone Confirmed 07/04/14 Active Leukocytosis; seen by [facility] in 2015 Confirmed 08/15/15 Active Nausea [...] Team Personnel Name: Cassius Alvarez MD Position: [facility] Physician - Primary Care Member Role: PCP Address: Address: [address] [place] [address]- Name: Rosalva Fletcher Position: [facility] Outreach Member Role: Lifetime Consulting Physician Care Team Related Persons Name: MERCED ARENAS Address: home [address] [place] [address] Name: KALEY ARENAS Address: home [address] [place] [address] Name: DIMA VILLASENOR Address: home [address] [place] [address]
--- OUTSIDE RECORDS SUMMARY | 2024-03-16 11:44 | XMS_ITS | Continuity of Care Document ---
Author Organization [facility] Address [address] [place] [address]- Care Team Providers Care Gallery Manager Name Role Phone Cassius Alvarez MD Primary Care Physician Encounter [facility] Date(s): 12/22/22 - 01/21/23 [facility] [address] [place], [place] [address] Attending Physician: Padma Gandara Admitting Physician: Padma Gandara Referring Physician: AdmtrPadma Allergies, Adverse Reactions, Alerts Substance Reaction Severity [...] influenza virus vaccine, inactivated 04/19/09 [place] rded [id number] 12y+ bivalent booster vax 04/18/22 Recorded SARS-CoV-2 mRNA (iqrthxd-mdns-peqwl) vax 10/09/21 Recorded SARS-CoV-2 (COVID-19) mRNA BNT-162b2 [...] 1 Refills, Maintenance, 12/22/22 8:57:00 EDT, Inhaler, [facility] #[id number], Partial fill upon patient request if the prescription is for a schedule II opio... Start Date: 12/22/22 Status: Ordered albuterol 0.083% inhalation solution 3 mL = 2.5 mg, Neb, Every 6 hours, PRN Wheezing/Shortness of Breath, J45.909, # 100 each, 1 Refills, Maintenance, 06/24/22 9:28:00 EST, Inhalation Solution, [facility]/pharmacy #[id number], Partial fill upon patient request if [...] 11/28/22 16:43:00 EDT, [id number],160, cm, 10/07/22 14:33:00 EDT, Height, 85.4, kg, [...] tablet, 3 Refills, Maintenance, 10/07/22 15:08:00 EDT, [facility] #[id number], Partial fill upon patient request if the [...] 08/25/17 Active Ankylosing spondylitis; Dr Brady at [facility] Confirmed 03/31/13 Active Anxiety Confirmed [...] Name: Cassius Alvarez MD Position: [facility] Physician - Primary Care Member Role: PCP Address: Address: [address] [place] [address] Name: Rosalva Fletcher Position: [facility] Outreach Member Role: Lifetime Consulting Physician Care Team Related Persons Name: MERCED ARENAS Address: home [address] [place] [id number] Name: KALEY ARENAS Address: [address] [address]
--- OUTSIDE RECORDS SUMMARY | 2024-03-16 11:44 | XMS_ITS | Continuity of Care Document ---
Author Organization [facility] Address [address] [place] [address]- Care Team Providers Care Esthetician/Spa Coordinator Name Role Phone Cassius Alvarez MD Primary Care Physician Encounter [facility] Date(s): 03/24/23 - 04/23/23 [facility] [address] [place], [place] [address] Allergies, Adverse Reactions, Alerts Substance Reaction [...] influenza virus vaccine, inactivated 04/19/09 [place] rded [id number] 12y+ bivalent booster vax 04/18/22 Recorded SARS-CoV-2 mRNA (ogcqwtp-srvs-izgvy) vax 10/09/21 Recorded SARS-CoV-2 (COVID-19) mRNA BNT-162b2 [...] hepatitis B pediatric vaccine 92 Recorded Medications acetaminophen-HYDROcodone 325 mg-5 mg oral tablet 1 tablet, By Mouth, Daily at bedtime, PRN Pain , Moderate, # 28 tablet, 0 Refills, Maintenance, 03/19/23 16:43:00 EDT, [facility] #[id number], Partial fill upon patient request if the prescription is for a schedule II opioid drug., 1 tablet By Mo... Start Date: 03/19/23 Status: Ordered Albuterol (Eqv-ProAir HFA) 90 mcg/inh inhalation aerosol 2 puffs, Inhalation, Every 4 hours, PRN cough, shortness of breath, wheezing, # 8.5 Gm, 1 Refills, Maintenance, 12/22/22 8:57:00 EDT, Inhaler, [facility] #[id number], Partial fill upon patient request if the prescription is for a schedule II opio... Start Date: 12/22/22 Status: Ordered albuterol 0.083% inhalation solution 3 mL = 2.5 mg, Neb, Every 6 hours, PRN Wheezing/Shortness of Breath, J45.909, # 100 each, 1 Refills, Maintenance, 06/24/22 9:28:00 EST, Inhalation Solution, [facility]/pharmacy #[id number], Partial fill upon patient [...] tablet, 0 Refills, Maintenance, 02/02/23 11:13:00 EDT, [facility] #[id number], Partial fill upon patient request if the prescription is for a schedule II opioid drug., 160, cm, 02/02/23 10... Start Date: 02/02/23 Status: Ordered famotidine 20 mg oral tablet 1, tablet, By Mouth, 2 times a day, PRN, # 180 tablet, Refills 0, Maintenance, NEEDED FOR REFLUXOR HEARTBURN, 02/27/23 22:28:00 EDT, Route to Pharmacy Electronically, [facility] #[id number],160, cm, 02/02/23 10:34:00 EDT, Height, 85.4, kg, 1... Start Date: 02/27/23 Status: Ordered hydrOXYzine hydrochloride 10 mg oral [...] opioid drug. Start Date: 12/08/22 Status: Ordered Problem List Condition Confirmation Course Effective Dates Status H ealth Status Informant Allergic rhinitis Confirmed 08/25/17 Active Ankylosing spondylitis; Dr Brady at [facility] Confirmed 03/31/13 Active Anxiety Confirmed [...] Team Personnel Name: Cassius Alvarez MD Position: [facility] Physician - Primary Care Member Role: PCP Address: Address: [address] [place] [address] Name: Rosalva Fletcher Position: [facility] Outreach Member Role: Lifetime Consulting Physician Care Team Related Persons Name: MERCED ARENAS Address: [address] [place] [address] Name: KALEY ARENAS Address: home [address] [place] [address] Name: DIMA VILLASENOR Address: home [address] [place] [address]
--- OUTSIDE RECORDS SUMMARY | 2024-03-16 11:45 | XMS_ITS | Continuity of Care Document ---
Author Organization [facility] Address [address] [address]- Care Team Providers Care Color Straining Bag Washer Name Role Phone Cassius Alvarez MD Primary Care Physician [phone] Encounter [facility] Date(s): 07/01/23 - 07/31/23 [place] [id number] [address]- Attending Physician: AdmPadma rocha Admitting Physician: AdmtrPadma Referring Physician: Admtr, Ar8 Allergies, Adverse Reactions, [...] influenza virus vaccine, inactivated 04/19/09 [place] rded [id number] 12y+ bivalent booster vax 04/18/22 Recorded SARS-CoV-2 mRNA (zpzkcaq-jnzm-wfcjn) vax 10/09/21 Recorded SARS-CoV-2 (COVID-19) mRNA BNT-162b2 [...] B pediatric vaccine 92 Recorded 1Result Comment: [facility] [id number] Medications acetaminophen-HYDROcodone 325 mg-5 mg oral tablet 1 tablet, By Mouth, Daily at bedtime, PRN Pain , Moderate, # 28 tablet, 0 Refills, Maintenance, 03/19/23 16:43:00 EDT, [facility] #[id number], Partial fill upon patient request if the prescription is for a schedule II opioid drug., 1 tablet By Mo... Start Date: 03/19/23 Status: Ordered Albuterol (Eqv-ProAir HFA) 90 mcg/inh inhalation aerosol 2 puffs, Inhalation, Every 4 hours, PRN cough, shortness of breath, wheezing, # 8.5 Gm, 1 Refills, Maintenance, 12/22/22 8:57:00 EDT, Inhaler, [facility] #[id number], Partial fill upon patient request if the prescription is for a schedule II opio... Start Date: 12/22/22 Status: Ordered albuterol 0.083% inhalation solution 3 mL = 2.5 mg, Neb, Every 6 hours, PRN Wheezing/Shortness of Breath, J45.909, # 100 each, 1 Refills, Maintenance, 06/24/22 9:28:00 EST, Inhalation Solution, [facility]/pharmacy #[id number], Partial fill upon patient [...] tablet, 0 Refills, Maintenance, 02/02/23 11:13:00 EDT, [facility] #[id number], Partial fill upon patient request if the prescription is for a schedule II opioid drug., 160, cm, 02/02/23 10... Start Date: 02/02/23 Status: Ordered famotidine 20 mg oral tablet 1, tablet, By Mouth, 2 times a day, PRN, # 180 tablet, Refills 1, Maintenance, NEEDED FOR REFLUXOR HEARTBURN, 05/23/23 8:05:00 EST, Route to Pharmacy Electronically, [facility] #[id number], 160, cm, 04/27/23 10:14:00 EDT, Height, 85.4, [...] opioid drug. Start Date: 04/27/23 Status: Ordered Meloxicam Daily, 0 Refills, Maintenance, 07/01/23 8:56:00 EST, Partial fill upon patient request if the prescription is for a schedule II opioid drug. Start Date: 07/01/23 Status: Ordered metoprolol 25 mg oral tablet, extended release 25 mg, 1, tablet, By Mouth, Daily, # 30 tablet, Refills 5, Tot. Refills 5, Maintenance, 04/27/23 10:17:00 EDT, Route to Pharmacy Electronically, [facility] #[id number], Partial fill upon patientrequest if the prescription [...] EDT, Supply Start Date: 05/06/23 Status: Ordered Tizanidine By Mouth, Refills 0, Maintenance, 07/01/23 8:56:00 EST, Partial fill upon patient request if the prescription is for a schedule II opioid drug. Start Date: 07/01/23 Status: Ordered Problem List Condition Confirmation Course Effective Dates Status H ealth Status Informant Allergic rhinitis Confirmed 08/25/17 Active Ankylosing spondylitis; Dr Brady at [facility] Confirmed 03/31/13 Active Anxiety Confirmed [...] stone Confirmed 07/04/14 Active Leukocytosis; seen by [facility] in 2015 Confirmed 08/15/15 Active [...] Team Personnel Name: Cassius Alvarez MD Position: [facility] Physician - Primary Care Member Role: PCP Address: Address: [address] [place] [address]- Name: Rosalva Fletcher Position: [facility] Outreach Member Role: Lifetime Consulting Physician Care Team Related Persons Name: MERCED ARENAS Address: home [address] [place] [address] Name: KALEY ARENAS Address: home [address] [place] [address] Name: DIMA VILLASENOR Address: home [address] [place] [address]
--- OUTSIDE RECORDS SUMMARY | 2024-03-16 11:45 | XMS_ITS | Continuity of Care Document ---
Author Organization [facility] Address [address] [address]- Care Team Providers Care News Content Specialist Name Role Phone Cassius Alvarez MD Primary Care Physician [place] [facility] [facility] [place]23 - 05/04/23 [place] [id number] [address]- Attending Physician: Parul Browne MD Admitting Physician: [...] influenza virus vaccine, inactivated 04/19/09 [place] rded [id number] 12y+ bivalent booster vax 04/18/22 Recorded SARS-CoV-2 mRNA (zurmxyz-ngaq-jchun) vax 10/09/21 Recorded SARS-CoV-2 (COVID-19) mRNA BNT-162b2 [...] tablet, 0 Refills, Maintenance, 03/19/23 16:43:00 EDT, [facility] #[id number], Partial fill upon patient request if the prescription is for a schedule II opioid drug., 1 tablet By Mo... Start Date: 03/19/23 Status: Ordered Albuterol (Eqv-ProAir HFA) 90 mcg/inh inhalation aerosol 2 puffs, Inhalation, Every 4 hours, PRN cough, shortness of breath, wheezing, # 8.5 Gm, 1 Refills, Maintenance, 12/22/22 8:57:00 EDT, Inhaler, [facility] #[id number], Partial fill upon patient request if the [...] tablet, 0 Refills, Maintenance, 02/02/23 11:13:00 EDT, [facility] #[id number], Partial fill upon patient request if the prescription is for a schedule II opioid drug., 160, cm, 02/02/23 10... Start Date: 02/02/23 Status: Ordered famotidine 20 mg oral tablet 1, tablet, By Mouth, 2 times a day, PRN, # 180 tablet, Refills 0, Maintenance, NEEDED FOR REFLUXOR HEARTBURN, 02/27/23 22:28:00 EDT, Route to Pharmacy Electronically, [facility] #[id number],160, cm, 02/02/23 10:34:00 EDT, Height, 85.4, kg, [...] 04/27/23 10:17:00 EDT, Route to Pharmacy Electronically, [facility] #[id number], Partial fill upon patientrequest if the prescription [...] Confirmed Active Varicella non-immune Confirmed 01/27/22 Active Vital Signs Most recent to oldest [Reference Range]: 1 2 Height 160 cm (04/27/23 10:14 AM) 160 cm (04/27/23 9:55 AM) Weight 112.6 kg (04/27/23 9:55 AM) Oxygen Saturation [94-100 %] 99 % (04/27/23 9:55 AM) Pulse Rate [55-90 bpm] 91 bpm *H* (04/27/23 9:55 AM) Body Mass Index [18.5-24.99 kg/m2] 43.98 kg/m2 *>HHI* (04/27/23 9:55 AM) Blood Pressure [90-138/55-84 mm Hg] 133/ 90mm Hg (04/27/23 9:55 AM) Mode of Delivery (Oxygen) Room air (04/27/23 9:55 AM) Blood pressure sites Arm, left (04/27/23 9:55 AM) Weight Obtained Via Standing scale (04/27/23 9:55 AM) Social History Social History Type Response Smoking Status Never smoker entered on: 10/02/14 Sex Cardiology Outpatient Note * Hollie MCKINNON, Parul Hernandez: PERFORM Event Display: Cardiology Note Office Authored Date: [id number] Patient: ??DAINA ARENAS ? Age:??32 Years?Sex:??Female?:??1990?? Patient Hx Cardiology Shared Clinical Summary 1. ??Asthma mild #Palpitations and orthostasis 2. ??Ankylosing spondylitis (2019) lower back pain 3. ??Anxiety/Depression 4. ??Anemia with iron infusion 5.?? Gastric sleeve 2019 6.?? Tonsillectomy 7.?? CCY 8.?? Hernia repair 9.?? Uterine fibroid removal History of Present Illness/Interval History 32-year-old female??with a history of palpitations found to have PVCs, and orthostatic type symptoms. ??She underwent head up tilt table testing which was negative.?? She is working on adequate hydration and compression stockings.?? She is here for cardiology follow-up. She did not tolerate the salt tablets. She feels she would feel better with meds. Physical Exam Vitals & Measurements HR:??91??(Peripheral)?? BP:??133/90?? SpO2:??99%?? HT:??160??cm?? WT:??112.6??kg?? BMI:??43.98?? Weight lb/oz: 248 lb 4 oz General:??In no acute distress HEENT:??Sclerae anicteric, mucous membranes moist Cardiovascular:?Regular rhythm, normal first and second heart sounds.?No murmurs or gallops.?Respiratory:?Clear to auscultation all lung manrique?? Extremities: Warm,??noedema Neuro:??Nonfocal??Psych: Alert and oriented with appropriate affect. Orthostatics in the office today were negative, HR 96 Assessment/Plan Orders: Metoprolol, 25 mg, 1, tablet, By Mouth, Daily, # 30 tablet, Refills 5, Tot. Refills 5, Maintenance,04/27/23 10:17:00 EDT, Route to Pharmacy Electronically, [facility] #[id number], Partial fill upon patient request if the prescription is for a schedule II op... 1.??Palpitation ??associated with PVC seen here in the office on ECG, Echo is normal.? 2. Orthostasis PAIGE??negative. ??Heart rate did increase to 26. Patient is working with hydration,??compression stockings did not help, unable to tolerate salt tablets. She feels she needs meds at this time. We cantry a small dose of BB at night. Some sx may be vertigo. Problem List/Past Medical History Ongoing Allergic rhinitis Ankylosing spondylitis; Dr Brady at [facility] Anxiety Asthma Attention deficit hyperactivity disorder Bulimia nervosa Chronic low back pain; Dr Sanders Depression, major, recurrent Fibromyalgia GERD (gastroesophageal reflux disease) Headache; Dr Flowers History of bariatric surgical procedure - sleeve gastrectomy 08/31 Hydronephrosis, [facility] 07/02 Iron deficiency anemia Kidney stone Leukocytosis; seen by m[facility] in 2015 Nausea and vomiting Obsessive-compulsive disorder Obstructive sleep apnea syndrome Palpitation Severe obesity Varicella non-immune Procedure/Surgical History Excision fibroid; abdominal myomectomy: 2021 Repair of umbilical hernia: 10/24/20 Laparoscopic sleeve gastrectomy, with subsequent revision: 2019 Cholecystectomy: 11/21/18 Kidney stone removal Tonsillectomy and adenoidectomy Home Medications acetaminophen-HYDROcodone 325 mg-5 mg oral tablet, 1 tablet, By Mouth, Daily at bedtime, PRN Albuterol (Eqv-ProAir HFA) 90 mcg/inh inhalation aerosol, 2 puffs, Inhalation, Every 4 hours, PRN, 1 refills albuterol 0.083% inhalation solution, 2.5 mg= 3 mL, Neb, Every 6 hours, PRN, 1 refills Breo Ellipta 200 mcg-25 mcg/inh inhalation powder, 1 puffs, Inhalation, Daily Certolizumab cyclobenzaprine 5 mg oral tablet, 5 mg= 1 tablet, By Mouth, 3 times a day, PRN famotidine 20 mg oral tablet, 1 tablet, By Mouth, 2 times a day, PRN hydrOXYzine hydrochloride 10 mg oral tablet Lexapro 10 mg oral tablet, 15 mg= 1.5 tablet, By Mouth, Daily Lexapro 10 mg oral tablet, 10 mg= 1 tablet, By Mouth, Daily metoprolol 25 mg oral tablet, extended release, 25 mg= 1 tablet, By Mouth, Daily, 5 refills mirtazapine 15 mg oral tablet, See Instructions Norethindrone Tablet, 5 mg, By Mouth, Daily promethazine 25 mg oral tablet Risperidone, 0.5 mg Lab Results Cardiology Labs WBC:??12 k/mm3??High (12/22/22) RBC: 4.2 m/mm3 (12/22/22) Hgb: 12.8 Gm/dL (12/22/22) Hct: 40.2 % (12/22/22) MCV: 95.7 femtoliters (12/22/22) MCH: 30.5 pg (12/22/22) MCHC:??31.8 g/dL??Low (12/22/22) Platelet Count: 263 k/mm3 (12/22/22) RDW-SD: 45.3 femtoliters (12/22/22) Nucleated RBC (Automated): 0 #/100 WBC'S (12/22/22) Abs. Neut:??8.1 k/mm3??High (12/22/22) Abs. Lymph:??3.2 k/mm3??High (12/22/22) Abs. [place]: 0.6 k/mm3 (12/22/22) Abs. Eo: 0 k/mm3 (12/22/22) Abs. Baso: 0.1 k/mm3 (12/22/22) Neut %: 67.4 % (12/22/22) [place] %: 5.1 % (12/22/22) Eos %: 0.3 % (12/22/22) Baso %: 0.5 % (12/22/22) Imm Gran: 0.3 % (12/22/22) Abs. Imm Gran: 0 k/mm3 (12/22/22) Sodium: 137 mmol/L (12/22/22) Potassium: 4.1 mmol/L (12/22/22) Chloride: 103 mmol/L (12/22/22) Bicarbonate Level: 22 mmol/L (12/22/22) Glucose Level: 89 mg/dL (12/22/22) BUN: 12 mg/dL (12/22/22) Creatinine-Blood: 0.7 mg/dL (12/22/22) Calcium: 9.6 mg/dL (12/22/22) Protein, Total: 7.2 Gm/dL (12/22/22) Albumin: 4.5 Gm/dL (12/22/22) Alkaline Phosphatase:??113 units/L??High (12/22/22) AST (SGOT): 14 units/L (12/22/22) ALT (SGPT): 15 units/L (12/22/22) Bilirubin, Total: 0.3 mg/dL (12/22/22) TSH: 1.73 uIU/mL (10/07/22) Diagnostic Impression ECG ECG 12-Lead ?? 09:27:31 Ventricular Rate: 110 BPM Atrial Rate: 110 BPM P-R Interval: 122 ms QRS Duration: 68 ms Q-T Interval: 338 ms QTC Calculation(Bazett): 457 ms P [place]: 86 degrees R [place]: -15 degrees T [place]: 46 degrees Sinus tachycardia with occasional Premature ventricular complexes Otherwise normal ECG When compared with ECG of 18-OCT-2018 11:03, Premature ventricular complexes are now Present Confirmed by IBAN HODGES ([id number]) on 06/11/2022 5:31:48 PM ?? Ayr: IBAN HODGES ?? Signed By: Iban Hodges MD ?? ECG 12-Lead ?? 09:27:31 Please click on pdf link to open report ?? Signed By: Iban oHdges MD Echo Echocardiogram - Complete ?? 10:29:30 Summary [...] ?? Signed By: Alise MCKINNON, Odette Su Note * Coni Yee: PERFORM, SIGN, VERIFY Event Display: Patient Education/Instruction Authored Date: [id number] [facility] *[facility] Hrt Vas Off Clinical Summary Name DAINA ARENAS Age 32 Years 1990 PCP Cassius Alvarez MD PCP Visit Date 04/27/2023 09:28:00 Additional Instructions: Scheduled Appointments?? Future Appointments ?*[facility]??Hrt??Vas??Off ?[address],??[place],??[address] ?Phone:??--?Fax:??-- ?Appt. Date:??06/07/2023?11:30 AM ?Scheduled Provider:??Ronald LINDO , Alix Randhawa Follow-Up Instructions ?? Diagnosis Medications: Please continue your medications until treatment is completed or stopped by your provider. Discuss any questions related to medications with your provider. New Medications [facility] #[id number], [address] [place] [phone], [phone] Metoprolol (metoprolol 25 mg oral tablet, extended release) 1 tab(s) Oral Daily. Refills: 5. Next Dose: Medications to Continue with No Changes These medications were not printed or sent to your pharmacy Acetaminophen / Hydrocodone (acetaminophen-HYDROcodone 325 mg-5 mg oral tablet) 1 tab(s) Oral Dailyat Bedtime as needed Pain , Moderate. Refills: 0. Next Dose: Albuterol (Albuterol (Eqv-ProAir HFA) 90 mcg/inh inhalation aerosol) 2 puff(s) Inhalation every 4 hours as needed cough, shortness of breath, wheezing. Refills: 1. Next Dose: Albuterol (albuterol 0.083% inhalation solution) 3 Milliliter Nebulized inhalation every 6 hours asneeded Wheezing/Shortness of Breath. J45.909. Refills: 1. Next Dose: Certolizumab Subcutaneous, 1 Refill(s), Inject into the skin.. Next Dose: Cyclobenzaprine (cyclobenzaprine 5 mg oral tablet) 1 tab(s) Oral 3 times a day as needed Spasm. Refills: 0. Next Dose: Escitalopram (Lexapro 10 mg oral tablet) 1 tab(s) Oral Daily. Next Dose: Escitalopram (Lexapro 10 mg oral tablet) 1.5 tab(s) Oral Daily. 15 mg. Next Dose: Famotidine (famotidine 20 mg oral tablet) 1 tab(s) Oral twice a day as needed NEEDED FOR REFLUX OR HEARTBURN. Refills: 0. Next Dose: fluticasone-vilanterol (Breo Ellipta 200 mcg-25 mcg/inh inhalation powder) 1 puff(s) Inhalation Daily. Refills: 0. Next Dose: HydrOXYzine (hydrOXYzine hydrochloride 10 mg oral tablet) TAKE 1 TABLET BY MOUTH 3 TO 4 TIMES DAILYAS NEEDED FOR ANXIETY. Next Dose: Mirtazapine (mirtazapine 15 mg oral tablet) 2 tab PO QD. Next Dose: Norethindrone (Norethindrone Tablet) 5 Milligram Oral Daily. Next Dose: Promethazine (promethazine 25 mg oral tablet) TAKE 1 TABLET BY MOUTH EVERY 6 HOURS NEEDED FOR NAUSEA. Next Dose: Risperidone 0.5 Milligram. Next Dose: Allergy Info:?? Other Environmental Allergy; Remicade; sodium chloride Medications Given This Visit Future Orders ?No future orders Vital Signs Height 160 cm Weight 112.6 kg BMI 43.98 kg/m2 Blood Pressure 133 mm Hg/90 mm Hg Temperature Pulse Rate 91 bpm Respiratory Rate 02 Sat Mode of Delivery 99 %/Room air You can now view a summary of your hospital visit from the comfort of your home through a free online portal called [employer]. [employer] is a website that allows you to securely view your medical information including discharge summary, medications and follow-up visits. ??You can alsosend a secure electronic message to your doctor???s office to request appointments, renew medications or just ask a question. You can enroll at [email or web address] or register during your next office visit. [...] primary care provider, you may find a [facility] provider by calling [facility] [employer] at [phone]. [facility], in keeping with [facility] guidance, no longer requires face masks for staff, patientsor visitors in most situations. Similar to time spent indoors at other locations, there is the chance that you were exposed to respiratory viruses during your time with us (such as flu or COVID-19).? If you develop symptoms concerning for a viral respiratory infection, please seek testing (and treatment if indicated) from your medical provider or home test kit. For information about the plan of care [...] Team Personnel Name: Cassius Alvarez MD Position: [facility] Physician - Primary Care Member Role: PCP Address: Address: [address] [place] [address] Name: Rosalva Fletcher Position: [facility] Outreach Member Role: Lifetime Consulting Physician Care Team Related Persons Name: MERCED ARENAS Address: [address] [address] Name: KALEY ARENAS Address: [address] [place] [address] Name: DIMA VILLASENOR Address: [address] [address]
--- OUTSIDE RECORDS SUMMARY | 2024-03-16 11:45 | XMS_ITS | Continuity of Care Document ---
Author Organization [facility] Address [address] [place] [address]- Care Team Providers Care Route Service Manager Name Role Phone Cassius Alvarez MD Primary Care Physician [phone] [place] [facility] [place](s[place] 03/18/23 - 04/17/23 [facility] [address] [place], [place] [address] Allergies, Adverse Reactions, Alerts [...] influenza virus vaccine, inactivated 04/19/09 [place] rded [id number] 12y+ bivalent booster vax 04/18/22 Recorded SARS-CoV-2 mRNA (radgdli-ayhv-glydu) vax 10/09/21 Recorded SARS-CoV-2 (COVID-19) mRNA BNT-162b2 [...] tablet, 0 Refills, Maintenance, 03/19/23 16:43:00 EDT, [facility] #[id number], Partial fill upon patient request if the prescription is for a schedule II opioid drug., 1 tablet By Mo... Start Date: 03/19/23 Status: Ordered Albuterol (Eqv-ProAir HFA) 90 mcg/inh inhalation aerosol 2 puffs, Inhalation, Every 4 hours, PRN cough, shortness of breath, wheezing, # 8.5 Gm, 1 Refills, Maintenance, 12/22/22 8:57:00 EDT, Inhaler, [facility] #[id number], Partial fill upon patient request if the prescription is for a schedule II opio... Start Date: 12/22/22 Status: Ordered albuterol 0.083% inhalation solution 3 mL = 2.5 mg, Neb, Every 6 hours, PRN Wheezing/Shortness of Breath, J45.909, # 100 each, 1 Refills, Maintenance, 06/24/22 9:28:00 EST, Inhalation Solution, [facility]/pharmacy #[id number], Partial fill upon patient [...] tablet, 0 Refills, Maintenance, 02/02/23 11:13:00 EDT, [facility] #[id number], Partial fill upon patient request if the prescription is for a schedule II opioid drug., 160, cm, 02/02/23 10... Start Date: 02/02/23 Status: Ordered famotidine 20 mg oral tablet 1, tablet, By Mouth, 2 times a day, PRN, # 180 tablet, Refills 0, Maintenance, NEEDED FOR REFLUXOR HEARTBURN, 02/27/23 22:28:00 EDT, Route to Pharmacy Electronically, [facility] #[id number],160, cm, 02/02/23 10:34:00 EDT, Height, 85.4, kg, [...] 08/25/17 Active Ankylosing spondylitis; Dr Brady at [facility] Confirmed 03/31/13 Active Anxiety Confirmed [...] Team Personnel Name: Cassius Alvarez MD Position: [facility] Physician - Primary Care Member Role: PCP Address: Address: [address] [place] [address] Name: Rosalva Fletcher Position: [facility] Outreach Member Role: Lifetime Consulting Physician Care Team Related Persons Name: MERCED ARENAS Address: [address] [place] [address] Name: KALEY ARENAS Address: [address] [place] [address] Name: DIMA VILLASENOR Address: home [address] [place] [address]
--- OUTSIDE RECORDS SUMMARY | 2024-03-16 11:45 | XMS_ITS | Continuity of Care Document ---
Author Organization [facility] Address [address] [place] [address]- Care Team Providers Care Air Conditioning Insulation Installer Name Role Phone Cassius Alvarez MD Primary Care Physician [phone] Encounter [facility] Date(s): 12/18/22 - 01/17/23 [facility] [address] [place], [place] [address] Allergies, Adverse Reactions, Alerts Substance [...] influenza virus vaccine, inactivated 04/19/09 [place] rded [id number] 12y+ bivalent booster vax 04/18/22 Recorded SARS-CoV-2 mRNA (dimuyds-pkrf-xspql) vax 10/09/21 Recorded SARS-CoV-2 (COVID-19) mRNA BNT-162b2 [...] 1 Refills, Maintenance, 12/22/22 8:57:00 EDT, Inhaler, [facility] #[id number], Partial fill upon patient request if the prescription is for a schedule II opio... Start Date: 12/22/22 Status: Ordered albuterol 0.083% inhalation solution 3 mL = 2.5 mg, Neb, Every 6 hours, PRN Wheezing/Shortness of Breath, J45.909, # 100 each, 1 Refills, Maintenance, 06/24/22 9:28:00 EST, Inhalation Solution, [facility]/pharmacy #[id number], Partial fill upon patient request if [...] 11/28/22 16:43:00 EDT, Route to Pharmacy Electronically, [facility] #[id number],160, cm, 10/07/22 14:33:00 EDT, Height, 85.4, kg, [...] tablet, 3 Refills, Maintenance, 10/07/22 15:08:00 EDT, [facility] #[id number], Partial fill upon patient request if the [...] Team Personnel Name: Cassius Alvarez MD Position: [facility] Physician - Primary Care Member Role: PCP Address: Address: [address] [place] [address] Name: Rosalva Fletcher Position: [facility] Outreach Member Role: Lifetime Consulting Physician Care Team Related Persons Name: MERCED ARENAS Address: home [address] [place] [address] Name: KALEY ARENAS Address: home [address] [place] [address]
--- OUTSIDE RECORDS SUMMARY | 2024-03-16 11:45 | XMS_ITS | Continuity of Care Document ---
Author Organization [facility] Address [address] [address]- Care Team Providers Care Advanced Manager Name Role Phone Cassius Alvarez MD Primary Care Physician Encounter [facility] [place] [facility] [id number] Date(s): 09/28/22 - 12/09/[address] [address]- Attending Physician: Parul Browne MD Admitting Physician: [...] influenza virus vaccine, inactivated 04/19/09 [place] rded [id number] 12y+ bivalent booster vax 04/18/22 Recorded SARS-CoV-2 mRNA (epxrzcn-vocj-efuis) vax 10/09/21 Recorded SARS-CoV-2 (COVID-19) mRNA BNT-162b2 [...] Refills, Maintenance, 06/24/22 9:28:00 EST, Inhalation Solution, [facility]/pharmacy #[id number], Partial fill upon patient [...] 11/28/22 16:43:00 EDT, Route to Pharmacy Electronically, [facility] #[id number],160, cm, 10/07/22 14:33:00 EDT, Height, 85.4, kg, [...] tablet, 3 Refills, Maintenance, 10/07/22 15:08:00 EDT, [facility] #[id number], Partial fill upon patient request if the [...] Team Personnel Name: Cassius Alvarez MD Position: [facility] Physician - Primary Care Member Role: PCP Address: Address: [address] [place] [address] Name: Rosalva Fletcher Position: [facility] Outreach Member Role: Lifetime Consulting Physician Care Team Related Persons Name: MERCED ARENAS Address: [address] [address] Name: KALEY ARENAS Address: [address] [address]
--- OUTSIDE RECORDS SUMMARY | 2024-03-16 11:45 | XMS_ITS | Continuity of Care Document ---
Author Organization [facility] ter Address [address] [place] [address]- Care Team Providers Care Lead Rider Name Role Phone Cassius Alvarez MD Primary Care Physician Encounter [facility] [place] Date(s): 05/15/22 - 05/15/[address] [address] Discharge Disposition: A-D/C Home Attending Physician: Malorie Fletcher MD Admitting Physician: Malorie Fletcher MD Referring Physician: Malorie Fletcher MD Allergies, Adverse Reactions, Alerts Substance Reaction [...] influenza virus vaccine, inactivated 04/19/09 [place] rded [id number] 12y+ bivalent booster vax 04/18/22 Recorded SARS-CoV-2 mRNA (ffzwecd-plus-cgnul) vax 10/09/21 Recorded SARS-CoV-2 (COVID-19) mRNA BNT-162b2 [...] Replace Required Details, Route to Pharmacy Electronically, [facility] #[id number],... Start Date: 04/29/22 Status: Ordered hydrOXYzine hydrochloride 10 mg oral tablet TAKE 1 TABLET BY MOUTH 3 TO 4 TIMES DAILY NEEDED FOR ANXIETY Start Date: 02/02/22 Status: Ordered metroNIDAZOLE 500 mg oral tablet 1 tablet = 500 mg, By Mouth, Every 12 hours, for 7 days, # 14 tablet, 0 Refills, Acute 05/22/22 10:27:00 EST, 05/15/22 10:27:00 EDT, Tablet, [facility]/pharmacy #[id number], Partial fill upon patient request if the prescription is for a schedule II opioid drug., 1... Start Date: 05/15/22 Stop Date: 05/22/22 Status: Ordered mirtazapine 15 mg oral tablet [...] 08/25/17 Active Ankylosing spondylitis; Dr Brady at [facility] Confirmed 03/31/13 Active Anxiety Confirmed [...] stone Confirmed 07/04/14 Active Leukocytosis; [facility] 2015 Confirmed 08/15/15 Active Nausea and vomiting Confirmed Active Obese class I Confirmed Active Obsessive-compulsive disorder Confirmed 07/04/14 Active Obstructive sleep apnea syndrome Confirmed 10/08/14 Active Depression, major, recurrent Confirmed 07/04/14 Active Varicella non-immune Confirmed 01/27/22 Active Vital Signs Most recent to oldest [Reference Range]: 1 Weight 85.1 kg (05/15/22 7:26 AM) Oxygen Saturation [94-100 %] 95 % 1 (05/15/22 7:46 AM) Blood Pressure [90-138/55-84 mm Hg] 117/ 71mm Hg (05/15/22 7:46 AM) Respiratory Rate [16-30 br/min] 20 br/mi n (05/15/22 7:46 AM) Temperature [96.8-100.4 DegF] 97.6 DegF (05/15/22 7:26 AM) Mode of Delivery (Oxygen) Room air (05/15/22 7:46 AM) Blood pressure sites Arm, right (05/15/22 7:46 AM) Temperature Route Oral (05/15/22 7:26 AM) Dry Weight 85.4 kg (05/15/22 7:26 AM) Weight Obtained Via Standing scale (05/15/22 7:26 AM) Dry Weight Obtained Via Standing scale (05/15/22 7:26 AM) 1Result Comment: Pt has gel nails Social History Social History Type Response Smoking Status Never smoker entered on: 10/02/14 Sex Patient Care team information Personnel Name: Cassius Alvarez MD Address: Address: [address] [place] [address]
--- OUTSIDE RECORDS SUMMARY | 2024-03-16 11:45 | XMS_ITS | Continuity of Care Document ---
Author Organization [facility] Address [address] [place] [address]- Care Team Providers Care Hook And Eye Attacher Name Role Phone Cassius Alvarez MD Primary Care Physician [phone] [facility]counter [facility] Date[facility]s): 02/04/23 - 03/06/23 [facility] [address] [place], [place] [address] Allergies, Adverse Reactions, Alerts [...] influenza virus vaccine, inactivated 04/19/09 [place] rded [id number] 12y+ bivalent booster vax 04/18/22 Recorded SARS-CoV-2 mRNA (ybxtocf-edvi-iialm) vax 10/09/21 Recorded SARS-CoV-2 (COVID-19) mRNA BNT-162b2 [...] Moderate, # 28 tablet, 0 Refills, Maintenance, 02/10/23 15:56:00 EDT, [facility] #[id number], Partial fill upon patient request if the prescription is for a schedule II opioid drug., 1 tablet By Mo... Start Date: 02/10/23 Status: Ordered Albuterol (Eqv-ProAir HFA) 90 mcg/inh inhalation aerosol 2 puffs, Inhalation, Every 4 hours, PRN cough, shortness of breath, wheezing, # 8.5 Gm, 1 Refills, Maintenance, 12/22/22 8:57:00 EDT, Inhaler, [facility] #[id number], Partial fill upon patient request if the prescription is for a schedule II opio... Start Date: 12/22/22 Status: Ordered albuterol 0.083% inhalation solution 3 mL = 2.5 mg, Neb, Every 6 hours, PRN Wheezing/Shortness of Breath, J45.909, # 100 each, 1 Refills, Maintenance, 06/24/22 9:28:00 EST, Inhalation Solution, [facility]/pharmacy #[id number], Partial fill upon patient [...] tablet, 0 Refills, Maintenance, 02/02/23 11:13:00 EDT, [facility] #[id number], Partial fill upon patient request if the prescription is for a schedule II opioid drug., 160, cm, 02/02/23 10... Start Date: 02/02/23 Status: Ordered famotidine 20 mg oral tablet 1, tablet, By Mouth, 2 times a day, PRN, # 180 tablet, Refills 0, Maintenance, NEEDED FOR REFLUXOR HEARTBURN, 02/27/23 22:28:00 EDT, Route to Pharmacy Electronically, [facility] #[id number],160, cm, 02/02/23 10:34:00 EDT, Height, 85.4, kg, [...] Leukocytosis; seen by [facility] in 2016 Confirmed 2/4/16 Active Nausea and vomiting Confirmed Active Obsessive-compulsive [...] Team Personnel Name: Cassius Alvarez MD Position: [facility] Physician - Primary Care Member Role: PCP Address: Address: [address] [place] [address] Name: Rosalva Fletcher Position: [facility] Outreach Member Role: Lifetime Consulting Physician Care Team Related Persons Name: MERCED ARENAS Address: home [address] [place] [address] Name: KALEY ARENAS Address: home [address] [place] [address] Name: DIMA VILLASENOR Address: home [address] [place] [id number]
--- OUTSIDE RECORDS SUMMARY | 2024-03-16 11:45 | XMS_ITS | Continuity of Care Document ---
Author Organization [facility] Address [address] [place] [address]- Care Team Providers Care Novelty Twister Tender Name Role Phone Cassius Alvarez MD Primary Care Physician [phone] [facility]counter [facility] Date[facility]s): 09/02/23 - 10/02/23 [facility] [address] [place], [place] [address] Attending Physician: Padma Gandara Admitting Physician: [...] acel(Tdap) 06/05/22 Recorded tetanus/diphtheria/pertussis, acel(Tdap) 04/23/09 Recorded [id number] 12y+ bivalent booster vax 04/18/22 Recorded SARS-CoV-2 mRNA (rszmwfi-skpf-fpkmc) vax 10/09/21 Recorded SARS-CoV-2 (COVID-19) mRNA BNT-162b2 [...] B pediatric vaccine 92 Recorded 1Result Comment: [facility] [id number] Medications acetaminophen-HYDROcodone 325 mg-5 mg oral tablet 1 tablet, By Mouth, Daily at bedtime, PRN Pain , Moderate, # 28 tablet, 0 Refills, Maintenance, 03/19/23 16:43:00 EDT, [facility] #[id number], Partial fill upon patient request if the prescription is for a schedule II opioid drug., 1 tablet By Mo... Start Date: 03/19/23 Status: Ordered Albuterol (Eqv-ProAir HFA) 90 mcg/inh inhalation aerosol 2 puffs, Inhalation, Every 4 hours, PRN cough, shortness of breath, wheezing, # 8.5 Gm, 1 Refills, Maintenance, 12/22/22 8:57:00 EDT, Inhaler, [facility] #[id number], Partial fill upon patient request if the prescription is for a schedule II opio... Start Date: 12/22/22 Status: Ordered albuterol 0.083% inhalation solution 3 mL = 2.5 mg, Neb, Every 6 hours, PRN Wheezing/Shortness of Breath, J45.909, # 100 each, 1 Refills, Maintenance, 06/24/22 9:28:00 EST, Inhalation Solution, [facility]/pharmacy #[id number], Partial fill upon patient request [...] tablet, 0 Refills, Maintenance, 02/02/23 11:13:00 EDT, [facility] #[id number], Partial fill upon patient request if the prescription is for a schedule II opioid drug., 160, cm, 02/02/23 10... Start Date: 02/02/23 Status: Ordered famotidine 20 mg oral tablet 1, tablet, By Mouth, 2 times a day, PRN, # 180 tablet, Refills 1, Maintenance, NEEDED FOR REFLUXOR HEARTBURN, 05/23/23 8:05:00 EST, Route to Pharmacy Electronically, [facility] #[id number], 160, cm, 04/27/23 10:14:00 EDT, Height, 85.4, [...] 04/27/23 10:17:00 EDT, Route to Pharmacy Electronically, [facility] #[id number], Partial fill upon patientrequest if the prescription [...] 08/25/17 Active Ankylosing spondylitis; Dr Brady at [facility] Confirmed 03/31/13 Active Anxiety Confirmed 07/04/14 [...] stone Confirmed 07/04/14 Active Leukocytosis; seen by [facility] in 2015 Confirmed 08/15/15 Active Nausea and vomiting Confirmed Active Obsessive-compulsive disorder Confirmed 07/04/14 Active Obstructive sleep apnea syndrome Confirmed 10/08/14 Active Palpitation Confirmed Active Depression, major, recurrent Confirmed 07/04/14 Active Severe obesity Confirmed Active Varicella non-immune Confirmed 01/27/22 Active Social History Social History Type Response Smoking Status Never smoker entered on: 10/02/14 Sex Radiology * Event Display: X-Ray Abdomen, Non- BH Authored Date: * Event Display: X-Ray Abdomen, Non- BH Authored Date: * Event Display: MRI Spine, Non- Authored Date: Patient Care team information Care Team Personnel Name: Cassius Alvarez MD Position: [facility] Physician - Primary Care Member Role: PCP Address: Address: [address] [place] [id number] Name: Rosalva Fletcher Position: [facility] Outreach Member Role: Lifetime Consulting Physician Care Team Related Persons Name: MERCED ARENAS Address: [address] [place] [address] Name: KALEY ARENAS Address: home [address] [place] [address] Name: DIMA VILLASENOR Address: home [address] [place] [address]
--- OUTSIDE RECORDS SUMMARY | 2024-03-16 11:45 | XMS_ITS | Continuity of Care Document ---
Author Organization [facility] Address [address] [address]- Care Team Providers Care Coal Tower Operator Name Role Phone Cassius Alvarez MD Primary Care Physician [place] [facility] [place] 06/07[place]23 - 07/07/23 [facility] [address] [address] [place] Allergies, Adverse Reactions, Alerts Substance Reaction [...] influenza virus vaccine, inactivated 04/19/09 [place] rded [id number] 12y+ bivalent booster vax 04/18/22 Recorded SARS-CoV-2 mRNA (koottyn-uvdr-lcprh) vax 10/09/21 Recorded SARS-CoV-2 (COVID-19) mRNA BNT-162b2 [...] pediatric vaccine 92 Recorded 1Result Comment: [facility] [id number] Medications acetaminophen-HYDROcodone 325 mg-5 mg oral tablet 1 tablet, By Mouth, Daily at bedtime, PRN Pain , Moderate, # 28 tablet, 0 Refills, Maintenance, 03/19/23 16:43:00 EDT, [facility] #[id number], Partial fill upon patient request if the prescription is for a schedule II opioid drug., 1 tablet By Mo... Start Date: 03/19/23 Status: Ordered Albuterol (Eqv-ProAir HFA) 90 mcg/inh inhalation aerosol 2 puffs, Inhalation, Every 4 hours, PRN cough, shortness of breath, wheezing, # 8.5 Gm, 1 Refills, Maintenance, 12/22/22 8:57:00 EDT, Inhaler, [facility] #[id number], Partial fill upon patient request if the prescription is for a schedule II opio... Start Date: 12/22/22 Status: Ordered albuterol 0.083% inhalation solution 3 mL = 2.5 mg, Neb, Every 6 hours, PRN Wheezing/Shortness of Breath, J45.909, # 100 each, 1 Refills, Maintenance, 06/24/22 9:28:00 EST, Inhalation Solution, [facility]/pharmacy #[id number], Partial fill upon patient request [...] tablet, 0 Refills, Maintenance, 02/02/23 11:13:00 EDT, [facility] #[id number], Partial fill upon patient request if the prescription is for a schedule II opioid drug., 160, cm, 02/02/23 10... Start Date: 02/02/23 Status: Ordered famotidine 20 mg oral tablet 1, tablet, By Mouth, 2 times a day, PRN, # 180 tablet, Refills 1, Maintenance, NEEDED FOR REFLUXOR HEARTBURN, 05/23/23 8:05:00 EST, Route to Pharmacy Electronically, [facility] #[id number], 160, cm, 04/27/23 10:14:00 EDT, Height, 85.4, [...] 04/27/23 10:17:00 EDT, Route to Pharmacy Electronically, [facility] #[id number], Partial fill upon patientrequest if the prescription [...] 08/25/17 Active Ankylosing spondylitis; Dr Brady at [facility] Confirmed 03/31/13 Active [...] Team Personnel Name: Cassius Alvarez MD Position: [facility] Physician - Primary Care Member Role: PCP Address: Address: [address] [place] [address] Name: Rosalva Fletcher Position: [facility] Outreach Member Role: Lifetime Consulting Physician Care Team Related Persons Name: MERCED ARENAS Address: home [address] [place] [address] Name: KALEY ARENAS Address: home [address] [place] [address] Name: JACKLYN, DIMA Address: home [address] [place] [address]
--- OUTSIDE RECORDS SUMMARY | 2024-03-16 11:45 | XMS_ITS | Continuity of Care Document ---
Author Organization [facility] Address [address] [address]- Care Team Providers Care Terrazzo Finisher Helper Name Role Phone Cassius Alvarez MD Primary Care Physician Encounter [facility] [id number] Date(s): 12/08/22 - 01/07/[address] [address]- [place] Allergies, Adverse Reactions, Alerts Substance Reaction [...] influenza virus vaccine, inactivated 04/19/09 [place] rded [id number] 12y+ bivalent booster vax 04/18/22 Recorded SARS-CoV-2 mRNA (lsjgzjb-kiyu-ioqhg) vax 10/09/21 Recorded SARS-CoV-2 (COVID-19) mRNA BNT-162b2 [...] 1 Refills, Maintenance, 12/22/22 8:57:00 EDT, Inhaler, [facility] #[id number], Partial fill upon patient request if the prescription is for a schedule II opio... Start Date: 12/22/22 Status: Ordered albuterol 0.083% inhalation solution 3 mL = 2.5 mg, Neb, Every 6 hours, PRN Wheezing/Shortness of Breath, J45.909, # 100 each, 1 Refills, Maintenance, 06/24/22 9:28:00 EST, Inhalation Solution, [facility]/pharmacy #[id number], Partial fill upon patient request if [...] 11/28/22 16:43:00 EDT, Route to Pharmacy Electronically, [facility] #[id number],160, cm, 10/07/22 14:33:00 EDT, Height, 85.4, kg, [...] tablet, 3 Refills, Maintenance, 10/07/22 15:08:00 EDT, [id number], Partial fill upon patient request if the [...] 08/25/17 Active Ankylosing spondylitis; Dr Brady at [facility] Confirmed 03/31/13 Active Anxiety Confirmed 07/04/14 [...] Team Personnel Name: Cassius Alvarez MD Position: [facility] Physician - Primary Care Member Role: PCP Address: Address: [address] [place] [address] Name: Rosalva Fletcher Position: [facility] Outreach Member Role: Lifetime Consulting Physician Care Team Related Persons Name: MERCED ARENAS Address: [address] [address] Name: KALEY ARENAS Address: [address] [address]
--- OUTSIDE RECORDS SUMMARY | 2024-03-16 11:45 | XMS_ITS | Continuity of Care Document ---
Author Organization [facility] Address [address] [place] [address]- Care Team Providers Care Award Clerk Name Role Phone Cassius Alvarez MD Primary Care Physician [phone] [place] [facility] [place](s): 06/23/22 - 07/23/22 [facility] [address] [place], [place] [address] Allergies, Adverse Reactions, Alerts Substance [...] influenza virus vaccine, inactivated 04/19/09 [place] rded [id number] 12y+ bivalent booster vax 04/18/22 Recorded SARS-CoV-2 mRNA (ursqbkq-webb-cbwpm) vax 10/09/21 Recorded SARS-CoV-2 (COVID-19) mRNA BNT-162b2 [...] Maintenance, 06/24/22 9:28:00 EST, Inhalation Solution, [facility]/pharmacy #[id number], Partial fill upon patient request if the [...] 1 Refills, Maintenance, 05/18/22 13:39:00 EST, Inhaler, [facility]/pharmacy #[id number], Partial fill upon patient [...] Replace Required Details, Route to Pharmacy Electronically, [facility] #[id number],... Start Date: 04/29/22 Status: Ordered Home Blood [...] Alvarez MD Position: [facility] Primary Care Physician Member Role: PCP Address: Address: [address] [place] [address] [address] Name: Rosalva Fletcher Position: [facility] Outreach Member Role: Lifetime Consulting Physician Care Team Related Persons Name: MERCED ARENAS Address: home [address] [place] [id number] Name: KALEY ARENAS Address: home [address] [place] [address]
--- OUTSIDE RECORDS SUMMARY | 2024-03-16 11:45 | XMS_ITS | Continuity of Care Document ---
Author Organization [facility] Address [address] [place] [address]- Care Team Providers Care Section Leader And Machine Setter Name Role Phone Cassius Alvarez MD Primary Care Physician [facility]counter [facility] Date(s): 04/07/23 - 05/07/23 [facility] [address] [place], [place] [email or web address] Allergies, Adverse Reactions, Alerts Substance Reaction Severity [...] influenza virus vaccine, inactivated 04/19/09 [place] rded [id number]-[id number] 12y+ bivalent booster vax 04/18/22 Recorded SARS-CoV-2 mRNA (dcpadxw-mqpz-hlsde) vax 10/09/21 Recorded SARS-CoV-2 (COVID-19) mRNA BNT-162b2 [...] tablet, 0 Refills, Maintenance, 03/19/23 16:43:00 EDT, [facility] #[id number], Partial fill upon patient request if the prescription is for a schedule II opioid drug., 1 tablet By Mo... Start Date: 03/19/23 Status: Ordered Albuterol (Eqv-ProAir HFA) 90 mcg/inh inhalation aerosol 2 puffs, Inhalation, Every 4 hours, PRN cough, shortness of breath, wheezing, # 8.5 Gm, 1 Refills, Maintenance, 12/22/22 8:57:00 EDT, Inhaler, [facility] #[id number], Partial fill upon patient request if the prescription is for a schedule II opio... Start Date: 12/22/22 Status: Ordered albuterol 0.083% inhalation solution 3 mL = 2.5 mg, Neb, Every 6 hours, PRN Wheezing/Shortness of Breath, J45.909, # 100 each, 1 Refills, Maintenance, 06/24/22 9:28:00 EST, Inhalation Solution, [facility]/pharmacy #[id number], Partial fill upon patient request [...] tablet, 0 Refills, Maintenance, 02/02/23 11:13:00 EDT, [facility] #[id number], Partial fill upon patient request if the prescription is for a schedule II opioid drug., 160, cm, 02/02/23 10... Start Date: 02/02/23 Status: Ordered famotidine 20 mg oral tablet 1, tablet, By Mouth, 2 times a day, PRN, # 180 tablet, Refills 0, Maintenance, NEEDED FOR REFLUXOR HEARTBURN, 02/27/23 22:28:00 EDT, Route to Pharmacy Electronically, [facility] #[id number],160, cm, 02/02/23 10:34:00 EDT, Height, 85.4, kg, [...] 04/27/23 10:17:00 EDT, Route to Pharmacy Electronically, [facility] #[id number], Partial fill upon patientrequest if the prescription [...] Confirmed 07/04/14 Active Leukocytosis; seen by [facility] in 2015 Confirmed 08/15/15 Active Nausea [...] team information Care Team Personnel Name: Cassius lAvarez MD Position: [facility] Physician - Primary Care Member Role: PCP Address: Address: [address] [place] [id number] Name: Rosalva Fletcher Position: [facility] Outreach Member Role: Lifetime Consulting Physician Care Team Related Persons Name: MERCED ARENAS Address: [address] [place] [address] Name: KALEY ARENAS Address: [address] [place] [address] Name: DIMA VILLASENOR Address: home [address] [place] [address]
--- OUTSIDE RECORDS SUMMARY | 2024-03-16 11:45 | XMS_ITS | Continuity of Care Document ---
Author Organization [facility] Address [address] [place] [address]- Care Team Providers Care Videogame Designer Name Role Phone Cassius Alvarez MD Primary Care Physician [phone] [place] [facility] Date(s): 05/31/22 - 06/30/22 [facility] [address] [place], [place] [address] Allergies, Adverse Reactions, Alerts Substance Reaction [...] [place] rded influenza virus vaccine, inactivated 04/27/16 [place] rded influenza virus vaccine, inactivated 04/17/15 [place] rded influenza virus vaccine, inactivated 04/30/14 [place] rded influenza virus vaccine, inactivated 03/15/12 [place] rded influenza virus vaccine, inactivated 06/08/11 [place] rded influenza virus vaccine, inactivated 05/14/10 [place] rded influenza virus vaccine, inactivated 05/14/09 [place] rded influenza virus vaccine, inactivated 04/19/09 [place] rded [id number]-[id number] 12y+ bivalent booster vax 04/18/22 Recorded SARS-CoV-2 mRNA (digjawc-cdzv-ggmrj) vax 10/09/21 Recorded SARS-CoV-2 (COVID-19) mRNA BNT-162b2 [...] Refills, Maintenance, 06/24/22 9:28:00 EST, Inhalation Solution, [facility]/pharmacy #[id number], Partial fill upon patient request if the [...] 1 Refills, Maintenance, 05/18/22 13:39:00 EST, Inhaler, [facility]/pharmacy #[id number], Partial fill upon patient request if [...] Replace Required Details, Route to Pharmacy Electronically, [facility] #[id number],... Start Date: 04/29/22 Status: Ordered Home Blood [...] Active Ankylosing spondylitis; Dr Brady at [facility] Confirmed 03/31/13 Active Anxiety Confirmed 07/04/14 [...] Cassius Alvarez MD Position: [facility] Primary Care Physician Member Role: PCP Address: Address: [address] [place] [address] Name: Rosalva Fletcher Position: [facility] Outreach Member Role: Lifetime Consulting Physician Care Team Related Persons Name: MERCED ARENAS Address: home [address] [place] [address] Name: KALEY ARENAS Address: home [address] [place] [address]
--- OUTSIDE RECORDS SUMMARY | 2024-03-16 11:45 | XMS_ITS | Continuity of Care Document ---
Author Organization [facility] Address [address] [place] [address]- Care Team Providers Care Ion Exchange Operator Name Role Phone Cassius Alvarez MD Primary Care Physician Encounter [facility] Date(s): 10/04/22 - 11/03/22 [facility] [address] [place], [place] [address] Allergies, Adverse [...] influenza virus vaccine, inactivated 04/19/09 [place] rded [id number]-AvG-0uWVI 12y+ bivalent booster vax 04/18/22 Recorded SARS-CoV-2 mRNA (vqpvjis-snrn-wfbzl) vax 10/09/21 Recorded SARS-CoV-2 (COVID-19) mRNA BNT-162b2 [...] Refills, Maintenance, 06/24/22 9:28:00 EST, Inhalation Solution, [facility]/pharmacy #[id number], Partial fill upon patient request if the [...] AT NIGHT Start Date: 02/02/22 Status: Ordered sodium chloride 1 gm oral tablet = 1,000 mg, By Mouth, 2 times a day, # 60 tablet, 3 Refills, Maintenance, 10/07/22 15:08:00 EDT, [facility] #[id number], Partial fill upon patient request if the prescription is for a schedule II opioid drug., 160, cm, 10/07/22 14:33:00 EDT, [facility] Start Date: 10/07/22 Status: Ordered Unisom 25 mg oral tablet TAKE 1 TABLET BY MOUTH EVERY NIGHT AT BEDTIME NEEDED Start Date: 02/02/22 Status: Ordered WesTab Plus oral tablet TAKE 1 TABLET BY MOUTH EVERY DAY Start Date: 02/02/22 Status: Ordered Problem List Condition Confirmation Course Effective Dates Status H ealth Status Informant Allergic rhinitis Confirmed 08/25/17 Active Ankylosing spondylitis; Dr Brady at [facility] Confirmed 03/31/13 Active Anxiety Confirmed 07/04/14 Active [...] stone Confirmed 07/04/14 Active Leukocytosis; seen by [facility] in 2015 Confirmed 08/15/15 Active [...] Personnel Name: Cassius Alvarez MD Position: [facility] Primary Care Physician Member Role: PCP Address: Address: [address] [place] [address] [id number] Name: Rosalva Fletcher Position: [facility] Outreach Member Role: Lifetime Consulting Physician Care Team Related Persons Name: MERCED ARENAS Address: [address] [address] Name: KALEY ARENAS Address: [address] [address]
--- OUTSIDE RECORDS SUMMARY | 2024-03-16 11:45 | XMS_ITS | Continuity of Care Document ---
Author Organization [facility] Address [address] [place] [address]- Care Team Providers Care Kiln Door Repairer Name Role Phone Cassius Alvarez MD Primary Care Physician Encounter [facility] Date(s): 05/19/23 - 05/26/23 [facility] [address] [place], [place] [address] Attending Physician: Not on Staff, Attending MD Allergies, Adverse Reactions, Alerts Substance Reaction [...] influenza virus vaccine, inactivated 04/19/09 [place] rded [id number] 12y+ bivalent booster vax 04/18/22 Recorded SARS-CoV-2 mRNA (bngymff-gqeu-azowb) vax 10/09/21 Recorded SARS-CoV-2 (COVID-19) mRNA BNT-162b2 vac 11/6/21 Recorded SARS-CoV-2 (COVID-19) mRNA BNT-162b2 vac 10/15/20 [...] B pediatric vaccine 92 Recorded 1Result Comment: [facility] [id number] Medications acetaminophen-HYDROcodone 325 mg-5 mg oral tablet 1 tablet, By Mouth, Daily at bedtime, PRN Pain , Moderate, # 28 tablet, 0 Refills, Maintenance, 03/19/23 16:43:00 EDT, [facility] #[id number], Partial fill upon patient request if the prescription is for a schedule II opioid drug., 1 tablet By Mo... Start Date: 03/19/23 Status: Ordered Albuterol (Eqv-ProAir HFA) 90 mcg/inh inhalation aerosol 2 puffs, Inhalation, Every 4 hours, PRN cough, shortness of breath, wheezing, # 8.5 Gm, 1 Refills, Maintenance, 12/22/22 8:57:00 EDT, Inhaler, [facility] #[id number], Partial fill upon patient request if the prescription is for a schedule II opio... Start Date: 12/22/22 Status: Ordered albuterol 0.083% inhalation solution 3 mL = 2.5 mg, Neb, Every 6 hours, PRN Wheezing/Shortness of Breath, J45.909, # 100 each, 1 Refills, Maintenance, 06/24/22 9:28:00 EST, Inhalation Solution, [facility]/pharmacy #[id number], Partial fill [...] tablet, 0 Refills, Maintenance, 02/02/23 11:13:00 EDT, [facility] #[id number], Partial fill upon patient request if the prescription is for a schedule II opioid drug., 160, cm, 02/02/23 10... Start Date: 02/02/23 Status: Ordered famotidine 20 mg oral tablet 1, tablet, By Mouth, 2 times a day, PRN, # 180 tablet, Refills 1, Maintenance, NEEDED FOR REFLUXOR HEARTBURN, 05/23/23 8:05:00 EST, Route to Pharmacy Electronically, [facility] #[id number], 160, cm, 04/27/23 10:14:00 EDT, Height, 85.4, [...] 04/27/23 10:17:00 EDT, Route to Pharmacy Electronically, [facility] #[id number], Partial fill upon patientrequest if the prescription [...] 08/25/17 Active Ankylosing spondylitis; Dr Brady at [facility] Confirmed 03/31/13 Active Anxiety Confirmed 07/04/14 [...] stone Confirmed 07/04/14 Active Leukocytosis; seen by [facility] in 2015 Confirmed 08/15/15 Active Nausea [...] Primary Care Member Role: PCP Address: Address: [address] [place] [id number] Name: Rosalva Fletcher Position: [facility] Outreach Member Role: Lifetime Consulting Physician Care Team Related Persons Name: MERCED ARENAS Address: home [address] [place] [address] Name: KALEY ARENAS Address: home [address] [place] [address] Name: DIMA VILLASENOR Address: home [address] [place] [address]
--- OUTSIDE RECORDS SUMMARY | 2024-03-16 11:46 | XMS_ITS | Continuity of Care Document ---
Author Organization [facility] Address [address] [place] [address]- Care Team Providers Care State'S Attorney Name Role Phone Cassius Alvarez MD Primary Care Physician En[place] [facility] [facility] [place] [id number] Date(s): 02/02/22 - 02/09/22 [facility] [address] [place] [address]- Encounter Diagnosis Nausea and vomiting(Discharge Diagnosis) - 02/02/22 Ankylosing spondylitis; Dr Brady at [facility](Discharge Diagnosis) - 02/08/22 Depression, major, recurrent; psychiatry prescribing(Discharge Diagnosis) - 02/02/22 Attending Physician: Cassius Alvarez MD Allergies, Adverse Reactions, Alerts Substance Reaction Severity Status Remicade Active Immunizations Given and Recorded Vaccine Date Status Refusal Reason SARS-CoV-2 mRNA (xnoeltf-ynnc-xomtl) vax 10/09/21 Recorded SARS-CoV-2 (COVID-19) mRNA BNT-162b2 [...] 02/04/22 13:40:00 EDT, Route to Pharmacy Electronically, [facility] #[id number]... Start Date: 02/04/22 Status: Ordered hydrOXYzine [...] Active Ankylosing spondylitis; Dr Yaron laughlin at [facility](Confirmed) 03/31/13 Active Anxiety(Confirmed) 07/04/14 Active Asthma(Confirmed) [...] recurrent(Confirmed) 07/04/14 Active Varicella non-immune(Confirmed) 01/27/22 Active Diagnosis Diagnosis Type Effective Dates Health Status Clinical Service Informant Depression, major, recurrent; psychiatry prescribing Discharge Diagnosis 02/02/22 Non-Specified Nausea and vomiting Discharge Diagnosis 02/02/22 Ankylosing spondylitis; Dr Brady at [facility] Discharge Diagnosis 02/08/22 Procedures Procedure Date Related Diagnosis Body Site Status Excision fibroid 2021 Complete d Laparoscopic sleeve gastrect libertad, with subsequent revision 2019 Completed Cholecystectomy 11/21/18 Completed Kidney stone removal Comp leted Repair of umbilical hernia Completed Tonsillectomy and adenoidectomy Completed Vital Signs Most recent to oldest [Reference Range]: 1 Height 160 cm (02/02/22 11:29 AM) Social History Social History Type Response Smoking Status Never smoker entered on: 10/02/14 Sex
--- OUTSIDE RECORDS SUMMARY | 2024-03-16 11:46 | XMS_ITS | Continuity of Care Document ---
Author Organization [facility] Address [address] [place] [address]- Care Team Providers Care Minister Of Religion Name Role Phone Cassius Alvarez MD Primary Care Physician Encounter [facility] Date(s): 04/02/23 - 05/02/23 [facility] [address] [place], [place] [address] Attending Physician: Padma Gandara Admitting Physician: Padma [...] [place] rded influenza virus vaccine, inactivated 03/16/19 [place] rded influenza virus vaccine, inactivated 03/18/18 [place] [...] influenza virus vaccine, inactivated 04/19/09 [place] rded [id number] 12y+ bivalent booster vax 04/18/22 Recorded SARS-CoV-2 mRNA (rjkqgro-bfew-dyhed) vax 10/09/21 Recorded SARS-CoV-2 (COVID-19) mRNA BNT-162b2 [...] 03/19/23 16:43:00 EDT, [facility] #[id number], Partial fill upon patient request if the prescription is for a schedule II opioid drug., 1 tablet By Mo... Start Date: 03/19/23 Status: Ordered Albuterol (Eqv-ProAir HFA) 90 mcg/inh inhalation aerosol 2 puffs, Inhalation, Every 4 hours, PRN cough, shortness of breath, wheezing, # 8.5 Gm, 1 Refills, Maintenance, 12/22/22 8:57:00 EDT, Inhaler, [facility] #[id number], Partial fill upon patient request if the [...] tablet, 0 Refills, Maintenance, 02/02/23 11:13:00 EDT, [facility] #[id number], Partial fill upon patient request if the prescription is for a schedule II opioid drug., 160, cm, 02/02/23 10... Start Date: 02/02/23 Status: Ordered famotidine 20 mg oral tablet 1, tablet, By Mouth, 2 times a day, PRN, # 180 tablet, Refills 0, Maintenance, NEEDED FOR REFLUXOR HEARTBURN, 02/27/23 22:28:00 EDT, Route to Pharmacy Electronically, [facility] #[id number],160, cm, 02/02/23 10:34:00 EDT, Height, 85.4, kg, [...] 04/27/23 10:17:00 EDT, Route to Pharmacy Electronically, [facility] #[id number], Partial fill upon patientrequest if the prescription [...] 08/25/17 Active Ankylosing spondylitis; Dr Brady at [facility] Confirmed 03/31/13 Active Anxiety Confirmed 07/04/14 Active [...] on: 10/02/14 Sex Radiology * Event Display: MRI Spine, Non- Authored Date: Patient Care team information Care Team Personnel Name: Cassius Alvarez MD Position: [facility] Physician - Primary Care Member Role: PCP Address: Address: [address] [place] [address]- Name: Rosalva Fletcher Position: [facility] Outreach Member Role: Lifetime Consulting Physician Care Team Related Persons Name: MERCED ARENAS Address: home [address] [place] [address] Name: KALEY ARENAS Address: home [address] [place] [address] Name: DIMA VILLASENOR Address: home [address] [place] [address]
--- OUTSIDE RECORDS SUMMARY | 2024-03-16 11:46 | XMS_ITS | Continuity of Care Document ---
Author Organization [facility] Address [address] [place] [address]- Care Team Providers Care Paper Stripper Name Role Phone Cassius Alvarez MD Primary Care Physician Encounter [facility] Date(s): 12/23/22 - 01/22/23 [facility] [address] [place], [place] [address] Allergies, Adverse Reactions, Alerts Substance Reaction [...] influenza virus vaccine, inactivated 04/19/09 [place] rded [id number] 12y+ bivalent booster vax 04/18/22 Recorded SARS-CoV-2 mRNA (znhbopv-rkyu-jvtww) vax 10/09/21 Recorded SARS-CoV-2 (COVID-19) mRNA BNT-162b2 [...] 1 Refills, Maintenance, 12/22/22 8:57:00 EDT, Inhaler, [facility] #[id number], Partial fill upon patient request if the prescription is for a schedule II opio... Start Date: 12/22/22 Status: Ordered albuterol 0.083% inhalation solution 3 mL = 2.5 mg, Neb, Every 6 hours, PRN Wheezing/Shortness of Breath, J45.909, # 100 each, 1 Refills, Maintenance, 06/24/22 9:28:00 EST, Inhalation Solution, [facility]/pharmacy #[id number], Partial fill upon patient [...] 11/28/22 16:43:00 EDT, Route to Pharmacy Electronically, [facility][id number],160, cm, 10/07/22 14:33:00 EDT, Height, 85.4, kg, [...] tablet, 3 Refills, Maintenance, 10/07/22 15:08:00 EDT, [facility][id number], Partial fill upon patient request if the [...] (gastroesophageal reflux disease) Confirmed Active Headache; Dr Flowesr Confirmed 07/24/11 Active History of bariatric surgical [...] Team Personnel Name: Cassius Alvarez MD Position: [facility] Physician - Primary Care Member Role: PCP Address: Address: [address] [place] [address] Name: Rosalva Fletcher Position: [facility] Outreach Member Role: Lifetime Consulting Physician Care Team Related Persons Name: MERCED ARENAS Address: home [address] [place] [address] Name: KALEY ARENAS Address: home [address] [place] [address]
--- OUTSIDE RECORDS SUMMARY | 2024-03-16 11:46 | XMS_ITS | Continuity of Care Document ---
Author Organization [facility] Address [address] [place] [address]- Care Team Providers Care Terminal Make Up Operator Name Role Phone Cassius Alvarez MD Primary Care Physician [phone] Encounter [facility] Date(s): 07/16/22 - 08/15/22 [facility] [address] [place], [place] [address] Allergies, Adverse Reactions, Alerts [...] influenza virus vaccine, inactivated 04/19/09 [place] rded [id number] 12y+ bivalent booster vax 04/18/22 Recorded SARS-CoV-2 mRNA (mofughx-wooc-uewkw) vax 10/09/21 Recorded SARS-CoV-2 (COVID-19) mRNA BNT-162b2 [...] Maintenance, 06/24/22 9:28:00 EST, Inhalation Solution, [facility]/pharmacy #[id number], Partial fill upon patient request if the [...] Replace Required Details, Route to Pharmacy Electronically, [facility] #[id number],... Start Date: 04/29/22 Status: Ordered hydrOXYzine hydrochloride [...] Team Personnel Name: Cassius Alvarez MD Position: [facility] Primary Care Physician Member Role: PCP Address: Address: [address] [place] [address]- Name: Rosalva Fletcher Position: [facility] Outreach Member Role: Lifetime Consulting Physician Care Team Related Persons Name: MERCED ARENAS Address: home [address] [place] [address] Name: KALEY ARENAS Address: home [address] [place] [address]
--- OUTSIDE RECORDS SUMMARY | 2024-03-16 11:46 | XMS_ITS | Continuity of Care Document ---
Author Organization [facility] Address [address] [place] [address]- Care Team Providers Care Toy Trains And Accessories Salesperson Name Role Phone Cassius Alvarez MD Primary Care Physician Encounter [facility] Date(s): 02/14/22 - 02/14/[address] [address] Discharge Disposition: A-D/C Home Attending Physician: Zeferino Wang MD Admitting Physician: Zeferino Wang MD Referring Physician: Zeferino Wang MD Allergies, Adverse Reactions, Alerts Substance Reaction Severity Status Remicade Active Immunizations Given and Recorded Vaccine Date Status Refusal Reason SARS-CoV-2 mRNA (xnmauqp-kyet-xuvfm) vax 10/09/21 Recorded SARS-CoV-2 (COVID-19) mRNA BNT-162b2 [...] 02/04/22 13:40:00 EDT, Route to Pharmacy Electronically, [facility] #[id number]... Start Date: 02/04/22 Status: Ordered hydrOXYzine [...] Active Ankylosing spondylitis; Dr Yaron laughlin at [facility](Confirmed) 03/31/13 Active Anxiety(Confirmed) 07/04/14 Active Asthma(Confirmed) [...]
--- OUTSIDE RECORDS SUMMARY | 2024-03-16 11:46 | XMS_ITS | Continuity of Care Document ---
Author Organization [facility] Address [address] [address]- Care Team Providers Care Waste Examiner Name Role Phone Cassius Alvarez MD Primary Care Physician [phone] [place] [facility] [place] 05/13/22 - 06/12/22 [facility] [address] [address]- [place] Allergies, Adverse Reactions, Alerts Substance Reaction [...] influenza virus vaccine, inactivated 04/19/09 [place] rded [id number] 12y+ bivalent booster vax 04/18/22 Recorded SARS-CoV-2 mRNA (hsrhnxg-alru-gmxjw) vax 10/09/21 Recorded SARS-CoV-2 (COVID-19) mRNA BNT-162b2 [...] 1 Refills, Maintenance, 05/18/22 13:39:00 EST, Inhaler, [facility]/pharmacy #[id number], Partial fill upon patient request if the [...] Replace Required Details, Route to Pharmacy Electronically, [facility] #[id number],... Start Date: 04/29/22 Status: Ordered Home Blood [...] Active Ankylosing spondylitis; Dr Brady at [facility] Confirmed 03/31/13 Active Anxiety Confirmed 07/04/14 [...] Team Personnel Name: Cassius Alvarez MD Position: [facility] Primary Care Physician Member Role: PCP Address: Address: [address] [place] [address]- Name: Rosalva Fletcher Position: [facility] Outreach Member Role: Lifetime Consulting Physician Care Team Related Persons Name: MERCED ARENAS Address: home [address] [place] [address] Name: KALEY ARENAS Address: [address] [address]
--- OUTSIDE RECORDS SUMMARY | 2024-03-16 11:46 | XMS_ITS | Continuity of Care Document ---
Author Organization [facility] Address [address] [address]- Care Team Providers Care Incident Manager Name Role Phone Cassius Alvarez MD Primary Care Physician [phone] [place] [facility] Date(s): 10/08/22 - 11/07/22 [facility] [address] [address] [place] Allergies, Adverse Reactions, Alerts Substance Reaction [...] [place] rded influenza virus vaccine, inactivated 05/14/10 [place] rded influenza virus vaccine, inactivated 05/14/09 [place] rded influenza virus vaccine, inactivated 04/19/09 [place] rded [id number] 12y+ bivalent booster vax 04/18/22 Recorded SARS-CoV-2 mRNA (esiykjq-xyno-ymmht) vax 10/09/21 Recorded SARS-CoV-2 (COVID-19) mRNA BNT-162b2 [...] Refills, Maintenance, 06/24/22 9:28:00 EST, Inhalation Solution, [facility]/pharmacy #[id number], Partial fill upon patient request if the [...] tablet, 3 Refills, Maintenance, 10/07/22 15:08:00 EDT, [facility] #[id number], Partial fill upon patient request if the prescription is for a schedule II opioid drug., 160, cm, 10/07/22 14:33:00 EDT, [facility]... Start Date: 10/07/22 Status: Ordered Unisom 25 mg oral tablet TAKE 1 TABLET BY MOUTH EVERY NIGHT AT BEDTIME NEEDED Start Date: 02/02/22 Status: Ordered WesTab Plus oral tablet TAKE 1 TABLET BY MOUTH EVERY DAY Start Date: 02/02/22 Status: Ordered Problem List Condition Confirmation Course Effective Dates Status H ealth Status Informant Allergic rhinitis Confirmed 08/25/17 Active Ankylosing spondylitis; Dr Brady at [facility] Confirmed 03/31/13 Active Anxiety Confirmed 07/04/14 [...] Team Personnel Name: Cassius Alvarez MD Position: [facility] Primary Care Physician Member Role: PCP Address: Address: [address] [place] [address]- [place] Name: Rosalva Fletcher Position: [facility] Outreach Member Role: Lifetime Consulting Physician Care Team Related Persons Name: MERCED ARENAS Address: [address] [address] Name: KALEY ARENAS Address: [address] [address]
--- OUTSIDE RECORDS SUMMARY | 2024-03-16 11:46 | XMS_ITS | Continuity of Care Document ---
Author Organization [facility] Address [address] [address]- Care Team Providers Care Geriatric Psychiatrist Name Role Phone Cassius Alvarez MD Primary Care Physician Encounter [facility] [facility] [place] [id number] Date(s): 12/08/22 - 12/15/[address] [address]- [place] Encounter Diagnosis Lightheadedness(Discharge Diagnosis) - 12/04/22 Attending Physician: Bairon Falcon Admitting Physician: Bairon Falcon Referring Physician: Cassius Alvarez MD Allergies, Adverse [...] influenza virus vaccine, inactivated 04/19/09 [place] rded [id number] 12y+ bivalent booster vax 04/18/22 Recorded SARS-CoV-2 mRNA (vazphkw-gqch-ruwge) vax 10/09/21 Recorded SARS-CoV-2 (COVID-19) mRNA BNT-162b2 [...] Refills, Maintenance, 06/24/22 9:28:00 EST, Inhalation Solution, [facility]/pharmacy #[id number], Partial fill upon patient request [...] 11/28/22 16:43:00 EDT, Route to Pharmacy Electronically, [facility] #[id number], cm, 10/07/22 14:33:00 EDT, Height, 85.4, kg, [...] tablet, 3 Refills, Maintenance, 10/07/22 15:08:00 EDT, [facility] #[id number], Partial fill upon patient request if the [...] Ankylosing spondylitis; Dr Brady at [facility] Confirmed 03/31/13 Active Anxiety Confirmed 07/04/14 Active [...] Diagnosis Type Effective Dates Health [facility] Informant Lightheadedness Discharge Diagnosis 12/04/22 Vital Signs Most recent to oldest [Reference Range]: 1 Height 160 cm (12/08/22 7:52 AM) Weight 91.9 kg (12/08/22 7:52 AM) Oxygen Saturation [94-100 %] 100 % (12/08/22 7:52 AM) Pulse Rate [55-90 bpm] 87 bpm (12/08/22 7:52 AM) Body Mass Index [18.5-24.99 kg/m2] 35.9 kg/m2 *>HHI* (12/08/22 7:52 AM) Blood Pressure [90-138/55-84 mm Hg] 117/ 75mm Hg (12/08/22 7:52 AM) Blood pressure sites Arm, left (12/08/22 7:52 AM) Weight Obtained Via Standing scale (12/08/22 7:52 AM) Social History Social History Type Response Smoking Status Never smoker entered on: 10/02/14 Sex Cardiology Outpatient Note * Bairon Falcon: PERFORM Event Display: Cardiology Note Office Authored Date: Patient: ??DAINA ARENAS ? Age:??32 Years?Sex:??Female?:??1990?? Patient Hx Cardiology Shared Clinical Summary 1. ??Asthma mild 2. ??Ankylosing spondylitis (2019) lower back pain 3. ??Anxiety/Depression 4. ??Anemia with iron infusion 5.?? Gastric sleeve 2019 6.?? Tonsillectomy 7.?? CCY 8.?? Hernia repair 9.?? Uterine fibroid removal FHX: premature CAD MGF and PGF SHX: disabled from , no tob, no caffeine. no alcohol History of Present Illness/Interval History Ms. Arenas is returning today for close follow up of her orthostatic symptoms.?? She previously reported lightheadedness, dizziness, and pre-syncope, particularly when she is changing positions. She recently underwent tilt table test, which showed reassuring findings and no syncope during the test.?? She did not tolerate salt tablets as it led to vomiting.?? She denies any improvement in her symptoms today.?? We spoke at length about her options going forward.?? She reports drinking about 40-50z of water a day.?? She is anxious about exercising at all due to her symptoms and concerns about passing out. Review of Systems General: No generalized fatigue, weight stable, no fever or chills HEENT: No headache, change in vision, sore throat or difficulty swallowing. CV: see HPI Pulmonary: No productive or nonproductive cough. No SOB at rest or on exertion. GI: no abdominal pain, constipation or diarrhea, no hematochezia : no urinary frequency, burning on urination or hematuria Physical Exam Vitals & Measurements HR:??87??(Peripheral)?? BP:??117/75?? SpO2:??100%?? HT:??160??cm?? WT:??91.9??kg?? BMI:??35.9?? Weight lb/oz: 202 lb 10 oz Constitutional: Alert, in no distress. HEENT: Sclerae anicteric, mucous membranes moist Respiratory: Clear to auscultation. No wheezing, rales or rhonchi. Cardiovascular: Regular rate and rhythm, S1 S2. No murmurs, rubs, gallops. Skin: No rashes or lesions. No petechiae or purpura.?? Extremities: Warm, no edema. No cyanosis or clubbing. Psychiatric: Normal mood and affect?? Assessment/Plan 1.??Lightheadedness -Ongoing lightheadedness, dizziness, and pre-syncope with positional changes.?? No real syncope.?? -She underwent tilt table testing, which was negative for neurocardiogenic syncope. Her blood pressure remained stable and her heart rate slowly increased with 70deg tilt. She has a normal TTE from 05/2022 as well. -I recommended ongoing efforts??with sodium supplementation and increasing hydration. She did not tolerate salt tablets, but is increasing sodium intake by other means.??She is currently drinking 40-50z??of water a day.?? I advised her that she would benefit from increasing??this further.?? I askedher to consider using compression stockings as well.?? I educated and counseled her about the importance of trying to stay as active as possible, but understanding that she is quite limited due to her symptoms. ?? Follow up in 3-4 months per patient request. Total Time Spent I personally spent a total of??33 minutes, including both jvha-zf-pmzi and phe-hdoi-wz-face time onthe date of the encounter, addressing the above diagnoses. Activities performed in this time include chart review, obtaining / reviewing history, performing amedically necessary evaluation, documentation and Counseling including medical decision making of Moderate Complexity (30-39 minutes for established patient) Medical Decision Making LOW - based on 2 or more self-limited or minor problems, 1 stable chronic illness or 1 acute, uncomplicated illness or injury; ext note / test / order = 2, OR requiring an independent historian(s); and/or Low risk of morbidity from add'l management Problem List/Past Medical History Ongoing Allergic rhinitis Ankylosing spondylitis; Dr Brady at [facility] Anxiety Asthma Attention deficit hyperactivity disorder Bulimia nervosa Chronic low back pain; Dr Sanders Depression, major, recurrent Fibromyalgia GERD (gastroesophageal reflux disease) Headache; Dr Flowers History of bariatric surgical procedure - sleeve gastrectomy 08/31 Hydronephrosis, [facility] 07/02 Iron deficiency anemia Kidney stone Leukocytosis; seen by m[facility] in 2015 Nausea and vomiting Obsessive-compulsive disorder Obstructive sleep apnea syndrome Palpitation Severe obesity (BMI 35.0-39.9) with comorbidity Varicella non-immune Procedure/Surgical History Excision fibroid: 2021 Laparoscopic sleeve gastrectomy, with subsequent revision: 2019 Cholecystectomy: 11/21/18 Kidney stone removal Repair of umbilical hernia Tonsillectomy and adenoidectomy Home Medications Albuterol (Eqv-ProAir HFA) 90 mcg/inh inhalation aerosol albuterol 0.083% inhalation solution, 2.5 mg= 3 mL, Neb, Every 6 hours, PRN, 1 refills Breo Ellipta 200 mcg-25 mcg/inh inhalation powder, 1 puffs, Inhalation, Daily busPIRone 5 mg oral tablet, 5 mg= 1 tablet, By Mouth, 2 times a day Certolizumab famotidine 20 mg oral tablet, 1 tablet, By Mouth, 2 times a day, PRN hydrOXYzine hydrochloride 10 mg oral tablet mirtazapine 15 mg oral tablet, See Instructions Norethindrone Tablet, 5 mg, By Mouth, Daily promethazine 25 mg oral tablet pyridoxine 25 mg oral tablet Risperidone, 0.5 mg sodium chloride 1 gm oral tablet, 1000 mg, By Mouth, 2 times a day, 3 refills Unisom 25 mg oral tablet WesTab Plus oral tablet Follow-Up Appointments Added Follow Up ?Time Frame ?Comments Parul Browne?3 ?? Months Lab Results Cardiology Labs WBC: 9 k/mm3 (10/07/22) RBC: 4.34 m/mm3 (10/07/22) Hgb: 13.2 Gm/dL (10/07/22) Hct: 41.6 % (10/07/22) MCV: 95.9 femtoliters (10/07/22) MCH: 30.4 pg (10/07/22) MCHC:??31.7 g/dL??Low (10/07/22) Platelet Count: 302 k/mm3 (10/07/22) RDW-SD:??56 femtoliters??High (10/07/22) Nucleated RBC (Automated): 0 #/100 WBC'S (10/07/22) Sodium: 140 mmol/L (10/07/22) Potassium: 4.1 mmol/L (10/07/22) Chloride: 104 mmol/L (10/07/22) Bicarbonate Level: 27 mmol/L (10/07/22) Glucose Level: 88 mg/dL (10/07/22) BUN: 12 mg/dL (10/07/22) Creatinine-Blood: 0.7 mg/dL (10/07/22) Calcium: 10.2 mg/dL (10/07/22) Protein, Total: 6.4 Gm/dL (05/12/22) Albumin: 3.8 Gm/dL (05/12/22) Alkaline Phosphatase: 85 units/L (05/12/22) AST (SGOT): 13 units/L (05/12/22) ALT (SGPT): 11 units/L (05/12/22) Bilirubin, Total: 0.2 mg/dL (05/12/22) TSH: 1.73 uIU/mL (10/07/22) Diagnostic Impression ECG ECG 12-Lead ?? 09:27:31 Ventricular Rate: 110 BPM Atrial Rate: 110 BPM P-R Interval: 122 ms QRS Duration: 68 ms Q-T Interval: 338 ms QTC Calculation(Bazett): 457 ms P [place]: 86 degrees R [place]: -15 degrees T [place]: 46 degrees Sinus tachycardia with occasional Premature ventricular complexes Otherwise normal ECG When compared with ECG of 18-OCT-2018 11:03, Premature ventricular complexes are now Present Confirmed by IBAN WINCHESTER ([id number]) on 06/11/2022 5:31:48 PM ?? [place]: IBAN WINCHESTER ?? Signed By: Iban Winchester MD ?? ECG 12-Lead ?? 09:27:31 Please click on pdf link to open report ?? Signed By: Iban Winchester MD Echo Echocardiogram - Complete ?? 10:29:30 [...] VERIFY Event Display: Patient Education/Instruction Authored Date: [id number] [facility] *[facility] Off Clinical Summary Name DAINA ARENAS Age 32 Years 1990 PCP Cassius Alvarez MD PCP Visit Date 12/08/2022 07:37:00 Additional Instructions: Scheduled Appointments?? Future Appointments ?No Future Appointments Scheduled Follow-Up Instructions ?? With: Address: When: Parul Browne [address] [place] [address] [id number] Business (1) In 3 months 03/10/2023 Diagnosis Dizziness and giddiness Medications: Please continue your medications until treatment [...] FOR COUGH OR WHEEZING. Next Dose: Albuterol (albuterol 0.083% inhalation solution) 3 Milliliter Nebulized inhalation every 6 hours asneeded Wheezing/Shortness of Breath. J45.909. Refills: 1. Next Dose: BusPIRone (busPIRone 5 mg oral tablet) 1 tab(s) Oral twice a day. Next Dose: Certolizumab Subcutaneous, 1 Refill(s), Inject into the skin.. Next Dose: Doxylamine (Unisom 25 mg oral tablet) TAKE 1 TABLET BY MOUTH EVERY NIGHT AT BEDTIME NEEDED. Next Dose: Famotidine (famotidine 20 mg oral [...] tablet) 2 tab PO QD. Next Dose: Multivitamin, (WesTab Plus oral tablet) TAKE 1 TABLET BY MOUTH EVERY DAY. Next Dose: Norethindrone (Norethindrone Tablet) 5 Milligram Oral Daily. Next Dose: Promethazine (promethazine 25 mg oral tablet) TAKE 1 TABLET BY MOUTH EVERY 6 HOURS NEEDED FOR NAUSEA. Next Dose: Pyridoxine (pyridoxine 25 mg oral tablet) TAKE 1 TABLET BY MOUTH FOUR TIMES DAILY BEFORE MEALS AND AT NIGHT. Next Dose: Risperidone 0.5 Milligram. Next Dose: Sodium Chloride (sodium chloride 1 gm oral tablet) 1,000 Milligram Oral twice a day. Refills: 3. Next Dose: Allergy Info:?? Other Environmental Allergy; Remicade; sodium chloride Medications Given This Visit Future Orders ?No future orders Vital Signs Height 160 cm Weight 91.9 kg BMI 35.9 kg/m2 Blood Pressure 117 mm Hg/75 mm Hg Temperature Pulse Rate 87 bpm Respiratory Rate 02 Sat Mode of Delivery 100 %/ You can now view a summary of your hospital visit from the comfort of your home through a free online portal called [employer]. [employer] is a website that allows you to securely view your medical information including discharge summary, medications and follow-up visits. ??You can alsosend a secure electronic message to your doctor???s office to request appointments, renew medications or just ask a question. You can enroll at [email or web address] or register during your next office visit. [...] primary care provider, you may find a [facility] provider by calling [facility] at [phone]. For information about the plan of care [...] Team Personnel Name: Cassius Alvarez MD Position: [facility] Physician - Primary Care Member Role: PCP Address: Address: [address] [place] [id number] Name: Rosalva Fletcher Position: [facility] Outreach Member Role: Lifetime Consulting Physician Care Team Related Persons Name: MERCED ARENAS Address: [address] [address] Name: KALEY ARENAS Address: [address] [address]
--- OUTSIDE RECORDS SUMMARY | 2024-03-16 11:46 | XMS_ITS | Continuity of Care Document ---
Author Organization [facility] Address [address] [place] [address]- Care Team Providers Care Massage Therapist Name Role Phone Cassius Alvarez MD Primary Care Physician [phone] Encounter [facility] R [id number] Date(s): 04/02/23 - 04/09/23 [facility] [address] [place], [place] [address] Encounter Diagnosis Inversion sprain of right ankle(Discharge Diagnosis) - 04/02/23 Pain of right great toe(Discharge Diagnosis) - 04/02/23 Attending Physician: Cee Slade DO Allergies, Adverse Reactions, Alerts Substance Reaction Severity [...] influenza virus vaccine, inactivated 04/19/09 [place] rded [id number] 12y+ bivalent booster vax 04/18/22 Recorded SARS-CoV-2 mRNA (zbxuemt-crfn-syiiq) vax 10/09/21 Recorded SARS-CoV-2 (COVID-19) mRNA BNT-162b2 [...] tablet, 0 Refills, Maintenance, 03/19/23 16:43:00 EDT, [facility] #[id number], Partial fill upon patient request if the prescription is for a schedule II opioid drug., 1 tablet By Mo... Start Date: 03/19/23 Status: Ordered Albuterol (Eqv-ProAir HFA) 90 mcg/inh inhalation aerosol 2 puffs, Inhalation, Every 4 hours, PRN cough, shortness of breath, wheezing, # 8.5 Gm, 1 Refills, Maintenance, 12/22/22 8:57:00 EDT, Inhaler, [facility] #[id number], Partial fill upon patient request if the prescription is for a schedule II opio... Start Date: 12/22/22 Status: Ordered albuterol 0.083% inhalation solution 3 mL = 2.5 mg, Neb, Every 6 hours, PRN Wheezing/Shortness of Breath, J45.909, # 100 each, 1 Refills, Maintenance, 06/24/22 9:28:00 EST, Inhalation Solution, [facility]/pharmacy #[id number], Partial fill upon patient [...] tablet, 0 Refills, Maintenance, 02/02/23 11:13:00 EDT, [facility] #[id number], Partial fill upon patient request if the prescription is for a schedule II opioid drug., 160, cm, 02/02/23 10... Start Date: 02/02/23 Status: Ordered famotidine 20 mg oral tablet 1, tablet, By Mouth, 2 times a day, PRN, # 180 tablet, Refills 0, Maintenance, NEEDED FOR REFLUXOR HEARTBURN, 02/27/23 22:28:00 EDT, [id number], cm, 02/02/23 10:34:00 EDT, Height, 85.4, kg, [...] 08/25/17 Active Ankylosing spondylitis; Dr Brady at [facility] Confirmed 03/31/13 Active Anxiety Confirmed [...] Dates Health Status Cl inical Service Informant Inversion sprain of right ankle Discharge Diagnosis 04/02/23 Pain of right great toe Discharge Diagnosis 04/02/23 Vital Signs Most recent to oldest [Reference Range]: 1 Height 160 cm (04/02/23 8:15 AM) Weight 109.6 kg (04/02/23 8:15 AM) Oxygen Saturation [94-100 %] 96 % (04/02/23 8:15 AM) Pulse Rate [55-90 bpm] 91 bpm *H* (04/02/23 8:15 AM) Body Mass Index [18.5-24.99 kg/m2] 42.81 kg/m2 *>HHI* (04/02/23 8:15 AM) Blood Pressure [90-138/55-84 mm Hg] 117/ 84mm Hg (04/02/23 8:15 AM) Mode of Delivery (Oxygen) Room air (04/02/23 8:15 AM) Blood pressure sites Arm, left (04/02/23 8:15 AM) Weight Obtained Via Standing scale (04/02/23 8:15 AM) Social History Social History Type Response Smoking Status Never smoker entered on: 10/02/14 Sex Patient Care team information Care Team Personnel Name: Cassius Alvarez MD Position: [facility] Physician - Primary Care Member Role: PCP Address: Address: [address] [place] [id number] Name: Rosalva Fletcher Position: [facility] Outreach Member Role: Lifetime Consulting Physician Care Team Related Persons Name: MERCED ARENAS Address: home [address] [place] [address] Name: KALEY ARENAS Address: home [address] [place] [address] Name: DIMA VILLASENOR Address: home [address] [place] [address]
--- OUTSIDE RECORDS SUMMARY | 2024-03-16 11:46 | XMS_ITS | Continuity of Care Document ---
Author Organization [facility] Address [address] [place] [address]- Care Team Providers Care Lawn Mower Mechanic Name Role Phone Cassius Alvarez MD Primary Care Physician [phone] Encounter [facility] Date(s): 03/23/23 - 04/22/23 [facility] [address] [place], [place] [address] Allergies, Adverse Reactions, Alerts Substance Reaction Severity [...] influenza virus vaccine, inactivated 04/19/09 [place] rded [id number] 12y+ bivalent booster vax 04/18/22 Recorded SARS-CoV-2 mRNA (jlngeyb-tgld-tgzpd) vax 10/09/21 Recorded SARS-CoV-2 (COVID-19) mRNA BNT-162b2 [...] tablet, 0 Refills, Maintenance, 03/19/23 16:43:00 EDT, [facility] #[id number], Partial fill upon patient request if the prescription is for a schedule II opioid drug., 1 tablet By Mo... Start Date: 03/19/23 Status: Ordered Albuterol (Eqv-ProAir HFA) 90 mcg/inh inhalation aerosol 2 puffs, Inhalation, Every 4 hours, PRN cough, shortness of breath, wheezing, # 8.5 Gm, 1 Refills, Maintenance, 12/22/22 8:57:00 EDT, Inhaler, [facility] #[id number], Partial fill upon patient request if the prescription is for a schedule II opio... Start Date: 12/22/22 Status: Ordered albuterol 0.083% inhalation solution 3 mL = 2.5 mg, Neb, Every 6 hours, PRN Wheezing/Shortness of Breath, J45.909, # 100 each, 1 Refills, Maintenance, 06/24/22 9:28:00 EST, Inhalation Solution, [facility]/pharmacy #[id number], Partial fill upon [...] tablet, 0 Refills, Maintenance, 02/02/23 11:13:00 EDT, [facility] #[id number], Partial fill upon patient request if the prescription is for a schedule II opioid drug., 160, cm, 02/02/23 10... Start Date: 02/02/23 Status: Ordered famotidine 20 mg oral tablet 1, tablet, By Mouth, 2 times a day, PRN, # 180 tablet, Refills 0, Maintenance, NEEDED FOR REFLUXOR HEARTBURN, 02/27/23 22:28:00 EDT, Route to Pharmacy Electronically, [facility] #[id number], cm, 02/02/23 10:34:00 EDT, Height, 85.4, kg, [...] 08/25/17 Active Ankylosing spondylitis; Dr Brady at [facility] Confirmed 03/31/13 Active Anxiety Confirmed [...] Team Personnel Name: Cassius Alvarez MD Position: [facility] Physician - Primary Care Member Role: PCP Address: Address: [address] [place] [address] Name: Rosalva Fletcher Position: [facility] Outreach Member Role: Lifetime Consulting Physician Care Team Related Persons Name: MERCED ARENAS Address: [address] [address] Name: KALEY ARENAS Address: home [address] [place] [address] Name: DIMA VILLASENOR Address: home [address] [place] [id number]
--- OUTSIDE RECORDS SUMMARY | 2024-03-16 11:46 | XMS_ITS | Continuity of Care Document ---
Author Organization [facility] Address [address] [place] [address]- Care Team Providers Care Balancer Name Role Phone Cassius Alvarez MD Primary Care Physician [phone] Encounter [facility] [place] [id number] Date(s): 05/12/22 - 06/11/22 [facility] [address] [place], [place] [address] Attending Physician: AdmPadma rocha Admitting Physician: Admtr, Ar8 Referring Physician: Admtr, [...] influenza virus vaccine, inactivated 04/19/09 [place] rded [id number] 12y+ bivalent booster vax 04/18/22 Recorded SARS-CoV-2 mRNA (jlgavzz-ytgz-gfijh) vax 10/09/21 Recorded SARS-CoV-2 (COVID-19) mRNA BNT-162b2 [...] 1 Refills, Maintenance, 05/18/22 13:39:00 EST, Inhaler, [facility]/pharmacy #[id number], Partial fill upon patient request if [...] Replace Required Details, Route to Pharmacy Electronically, [facility] #[id number],... Start Date: 04/29/22 Status: Ordered Home Blood [...] Ankylosing spondylitis; Dr Brady at [facility] Confirmed 03/31/13 Active Anxiety Confirmed 07/04/14 Active [...] stone Confirmed 07/04/14 Active Leukocytosis; seen by [facility] in 2015 Confirmed 08/15/15 Active [...] Team Personnel Name: Cassius Alvarez MD Position: [facility] Primary Care Physician Member Role: PCP Address: Address: [address] [place] [address]- Name: Rosalva Fletcher Position: [facility] Outreach Member Role: Lifetime Consulting Physician Care Team Related Persons Name: MERCED ARENAS Address: home [address] [place] [address] Name: KALEY ARENAS Address: home [address] [place] [id number]
--- OUTSIDE RECORDS SUMMARY | 2024-03-16 11:46 | XMS_ITS | Continuity of Care Document ---
Author Organization [facility] Address [address] [place] [address]- Care Team Providers Care Stull Hewer Name Role Phone Cassius Alvarez MD Primary Care Physician [phone] Encounter [facility] [place] R [id number] Date(s): 02/02/23 - 02/09/23 [facility] [address] [place] [address]- Encounter Diagnosis Headache; Dr Flowers(Discharge Diagnosis) - 02/02/23 Ankylosing spondylitis; Dr Brady at [facility](Discharge Diagnosis) - 02/02/23 Asthma(Discharge Diagnosis) - 02/02/23 Attending Physician: Cassius Alvarez MD Allergies, Adverse [...] Fransisco rded influenza virus vaccine, inactivated 03/18/18 [place] rded influenza virus vaccine, inactivated 06/18/17 [place]ansisco [...] influenza virus vaccine, inactivated 04/19/09 [place]ans[place] rded [id number] 12y+ bivalent booster vax 04/18/22 Recorded SARS-CoV-2 mRNA (lisbet) vax 10/09/21 Recorded SARS-CoV-2 (COVID-19) mRNA BNT-162b2 [...] 1 Refills, Maintenance, 12/22/22 8:57:00 EDT, Inhaler, [facility] #[id number], Partial fill upon patient request if the prescription is for a schedule II opio... Start Date: 12/22/22 Status: Ordered albuterol 0.083% inhalation solution 3 mL = 2.5 mg, Neb, Every 6 hours, PRN Wheezing/Shortness of Breath, J45.909, # 100 each, 1 Refills, Maintenance, 06/24/22 9:28:00 EST, Inhalation Solution, [facility]/pharmacy #[id number], Partial fill upon patient request [...] tablet, 0 Refills, Maintenance, 02/02/23 11:13:00 EDT, [facility] #[id number], Partial fill upon patient request if the prescription is for a schedule II opioid drug., 160, cm, 02/02/23 10... Start Date: 02/02/23 Status: Ordered famotidine 20 mg oral tablet 1, tablet, By Mouth, 2 times a day, PRN, # 180 tablet, Refills 0, Maintenance, NEEDED FOR REFLUXOR HEARTBURN, 11/28/22 16:43:00 EDT, Route to Pharmacy Electronically, [facility] #[id number],160, cm, 10/07/22 14:33:00 EDT, Height, 85.4, kg, [...] Effective Dates Health Status Clinical Service Informant Headache; Dr Flowers Discharge Diagnosis 02/02/23 Ankylosing spondylitis; Dr Brady at [facility] Discharge Diagnosis 02/02/23 Asthma Discharge Diagnosis 02/02/23 Vital Signs Most recent to oldest [Reference Range]: 1 Height 160 cm (02/02/23 10:34 AM) Weight 100.9 kg (02/02/23 10:34 AM) Oxygen Saturation [94-100 %] 97 % (02/02/23 10:34 AM) Pulse Rate [55-90 bpm] 90 bpm (02/02/23 10:34 AM) Body Mass Index [18.5-24.99 kg/m2] 39.41 kg/m2 *>HHI* (02/02/23 10:34 AM) Blood Pressure [90-138/55-84 mm Hg] 112/ 79mm Hg (02/02/23 10:34 AM) Blood pressure sites Arm, right (02/02/23 10:34 AM) Social History Social History Type Response Smoking Status Never smoker entered on: 10/02/14 Sex Note * Amanda Wiseman: PERFORM, SIGN, VERIFY Event Display: Patient Education/Instruction Authored Date: [id number] [facility] Clinical Summary Name DAINA ARENAS Age 32 Years 1990 PCP Cassius Alvarez MD PCP Visit Date 02/02/2023 10:11:00 Additional Instructions: Scheduled Appointments?? Future Appointments ?No Future Appointments Scheduled Follow-Up Instructions ?? Diagnosis Ankylosing spondylitis of unspecified sites in spine; Headache, unspecified; Unspecified asthma, uncomplicated Medications: Please continue your medications until treatment is completed or stopped by your provider. Discuss any questions related to medications with your provider. New Medications [facility] #[id number], [address] [place] [address] [phone], [phone] Cyclobenzaprine (cyclobenzaprine 5 mg oral tablet) 1 tab(s) Oral 3 times a day as needed Spasm. Refills: 0. Next Dose: Medications to Continue with No [...] Refill(s), Inject into the skin.. Next Dose: Escitalopram (Lexapro 10 mg oral tablet) 1 tab(s) Oral Daily. Next Dose: Famotidine (famotidine 20 mg oral [...] Next Dose: Risperidone 0.5 Milligram. Next Dose: No Longer Take the Following Medications Doxylamine (Unisom 25 mg oral tablet) TAKE 1 TABLET BY MOUTH EVERY NIGHT AT BEDTIME NEEDED. Multivitamin, (WesTab Plus oral tablet) TAKE 1 TABLET BY MOUTH EVERY DAY. Pyridoxine (pyridoxine 25 mg oral tablet) TAKE 1 TABLET BY MOUTH FOUR TIMES DAILY BEFORE MEALS AND AT NIGHT. Sodium Chloride (sodium chloride 1 gm oral tablet) 1,000 Milligram Oral twice a day. Refills: 3. Allergy Info:?? Other Environmental Allergy; Remicade; sodium chloride Medications Given This Visit Future Orders ?No future orders Vital Signs Height 160 cm Weight 100.9 kg BMI 39.41 kg/m2 Blood Pressure 112 mm Hg/79 mm Hg Temperature Pulse Rate 90 bpm Respiratory Rate 02 Sat Mode of Delivery 97 %/ You can now view a summary of your hospital visit from the comfort of your home through a free online portal called Yippy. Yippy is a website that allows you to securely view your medical information including discharge summary, medications and follow-up visits. ??You can alsosend a secure electronic message to your doctor???s office to request appointments, renew medications or just ask a question. You can enroll at [email or web address] or register during your next office visit. [...] primary care provider, you may find a [facility] provider by calling [facility] Link at [phone]. For information about the plan of care [...] Team Personnel Name: Cassius Alvarez MD Position: [facility] Physician - Primary Care Member Role: PCP Address: Address: [address] [place] [address] Name: Rosalva Fletcher Position: [facility] Outreach Member Role: Lifetime Consulting Physician Care Team Related Persons Name: MERCED ARENAS Address: home [address] [place] [address] Name: KALEY ARENAS Address: [address] [place] [address] Name: DIMA VILLASENOR Address: [address] [address]
--- OUTSIDE RECORDS SUMMARY | 2024-03-16 11:46 | XMS_ITS | Continuity of Care Document ---
Author Organization [facility] Address [address] [address]- Care Team Providers Care Interline Clerk Name Role Phone Cassius Alvarez MD Primary Care Physician En[place] [facility] Date(s): 07/01/23 - 07/08/23 [facility] [address] [address]- [place] Encounter Diagnosis Palpitation(Discharge Diagnosis) - 07/01/23 Attending Physician: Alix Block Admitting Physician: Alix Block Referring Physician: Cassius Alvarez MD Allergies, Adverse [...] influenza virus vaccine, inactivated 04/19/09 [place]ans[place] rded [id number] 12y+ bivalent booster vax 04/18/22 Recorded SARS-CoV-2 mRNA (xzgsadu-hphp-alenr) vax 10/09/21 Recorded SARS-CoV-2 (COVID-19) mRNA BNT-162b2 [...] B pediatric vaccine 92 Recorded 1Result Comment: [facility] [id number] Medications acetaminophen-HYDROcodone 325 mg-5 mg oral tablet 1 tablet, By Mouth, Daily at bedtime, PRN Pain , Moderate, # 28 tablet, 0 Refills, Maintenance, 03/19/23 16:43:00 EDT, [facility] #[id number], Partial fill upon patient request if the prescription is for a schedule II opioid drug., 1 tablet By Mo... Start Date: 03/19/23 Status: Ordered Albuterol (Eqv-ProAir HFA) 90 mcg/inh inhalation aerosol 2 puffs, Inhalation, Every 4 hours, PRN cough, shortness of breath, wheezing, # 8.5 Gm, 1 Refills, Maintenance, 12/22/22 8:57:00 EDT, Inhaler, [facility] #[id number], Partial fill upon patient request if the prescription is for a schedule II opio... Start Date: 12/22/22 Status: Ordered albuterol 0.083% inhalation solution 3 mL = 2.5 mg, Neb, Every 6 hours, PRN Wheezing/Shortness of Breath, J45.909, # 100 each, 1 Refills, Maintenance, 06/24/22 9:28:00 EST, Inhalation Solution, [facility]/pharmacy #[id number], Partial fill upon patient request if [...] tablet, 0 Refills, Maintenance, 02/02/23 11:13:00 EDT, [facility] #[id number], Partial fill upon patient request if the prescription is for a schedule II opioid drug., 160, cm, 02/02/23 10... Start Date: 02/02/23 Status: Ordered famotidine 20 mg oral tablet 1, tablet, By Mouth, 2 times a day, PRN, # 180 tablet, Refills 1, Maintenance, NEEDED FOR REFLUXOR HEARTBURN, 05/23/23 8:05:00 EST, Route to Pharmacy Electronically, [facility] #[id number], 160, cm, 04/27/23 10:14:00 EDT, Height, 85.4, [...] 04/27/23 10:17:00 EDT, Route to Pharmacy Electronically, [facility] #[id number], Partial fill upon patientrequest if the prescription [...] stone Confirmed 07/04/14 Active Leukocytosis; seen by [facility] in 2015 Confirmed 08/15/15 Active Nausea and vomiting Confirmed Active Obsessive-compulsive disorder Confirmed 07/04/14 Active Obstructive sleep apnea syndrome Confirmed 10/08/14 Active Palpitation Confirmed Active Depression, major, recurrent Confirmed 07/04/14 Active Severe obesity Confirmed Active Varicella non-immune Confirmed 01/27/22 Active Diagnosis Diagnosis Type Effective Dates Health Status Clini anant Service Informant Palpitation Discharge Diagnosis 07/01/23 Vital Signs Most recent to oldest [Reference Range]: 1 Height 160 cm (07/01/23 8:54 AM) Weight 115 kg (07/01/23 8:54 AM) Oxygen Saturation [94-100 %] 99 % (07/01/23 8:54 AM) Pulse Rate [55-90 bpm] 66 bpm (07/01/23 8:54 AM) Body Mass Index [18.5-24.99 kg/m2] 44.92 kg/m2 *>HHI* (07/01/23 8:54 AM) Blood Pressure [90-138/55-84 mm Hg] 128/ 79mm Hg (07/01/23 8:54 AM) Blood pressure sites Arm, left (07/01/23 8:54 AM) Weight Obtained Via Standing scale (07/01/23 8:54 AM) Social History Social History Type Response Smoking Status Never smoker entered on: 10/02/14 Sex Cardiology Outpatient Note * Alix Block: PERFORM Event Display: Cardiology Note Office Authored Date: [id number] Patient: ??JIA ARENAS ? Age:??32 Years?Sex:??Female?:??1990?? Patient Hx Cardiology Shared Clinical Summary 1. ??Asthma mild #Palpitations and orthostasis 2. ??Ankylosing spondylitis (2019) lower back pain 3. ??Anxiety/Depression 4. ??Anemia with iron infusion 5.?? Gastric sleeve 2020 6.?? Tonsillectomy 7.?? CCY 8.?? Hernia repair 9.?? Uterine fibroid removal Provider Clinical Summary Jia is a pleasant 32-year-old woman??with a history of??tachycardia??and??at times orthostasis??most frequently with change of position.?? In the past??orthostatic blood pressures have been negative. ??She unfortunately??has not tolerated the use of compression stockings and did not do well with increasing her sodium intake. ?? Today we discussed??physiologic process??when she has a better understanding of what is contributing to her symptoms.?? I recommended the use of compression stockings that have zippers as they are much easier to get on and off.?? She will increase her sodium intake??by mixing??routine table salt??with up to 3 bottles of??0 sugar Gatorade daily??as well as additional??water intake, she will avoid caffeinated products.?Continue on low-dose metoprolol??can adjust upward if needed. ?? She is at very low risk of a cardiac event at the time of her high risk bariatric surgery. ??At this point there were no contraindications from a cardiac standpoint to proceeding??with weight loss surgery scheduled for mid July 2023. ?? We discussed that if she??was considering??another we should discuss her use of metoprolol, Jia mentions that??post bariatric surgery she is to??avoid for 15 months??post surgery. ?? We will see her here in cardiology in 1 year??or sooner if needed. Thank you for allowing us to participate in her care. Alix Cardenas PA-C History of Present Illness/Interval History I had the pleasure of seeing Jia??here in cardiology in follow-up to her recent visit with Dr. Parul Browne.?? Jia is a pleasant??32-year-old woman??with a history of??dizziness and palpitations.?? Historically her orthostatic??blood pressures have been negative. ??When she last saw ??[employer] [employer]??he was started on low-dose metoprolol??and today reports that??she feels a little bit better.??She is trying to stay hydrated but finds it is a challenge??as she is very busy caring for??her 56-mulrl-wyo son.?She has tried to increase her sodium intake but??struggles with that as well.?Today she mentions that she will be having bariatric??surgery??July 29, 2023. ?? She denies any issues of syncope, breathlessness,??chest pain,??or sustained arrhythmias. ?? Past Medical Hx:?? 1. ??Asthma mild 2. ??Ankylosing spondylitis (2019) lower back pain 3. ??Anxiety/Depression 4. ??Anemia with iron infusion 5.?? Gastric sleeve 2019 6.?? Tonsillectomy 7.?? CCY 8.?? Hernia repair 9.?? Uterine fibroid removal 10.?Palpitations/orthostasis Review of Systems Discussed, see HPI Physical Exam Vitals & Measurements HR:??66??(Peripheral)?? BP:??128/79?? SpO2:??99%?? HT:??160??cm?? WT:??115??kg?? BMI:??44.92?? Weight lb/oz: 253 lb 8 oz GENERAL: ??Alert and oriented, no acute distress. HEENT: Mucous membranes pink and moist. ?? NECK: ??No JVD?? LUNGS: Clear to auscultation bilaterally. ??No crackles, wheezing, rhonchi. ?? HEART: ??Regular rate and rhythm, normal S1, S2. ??No murmurs, rubs, or gallops.?? ABDOMEN: Soft, nontender, nondistended.?? EXTREMITIES: ??No pitting edema, cyanosis, clubbing. ?? PULSES: 2+ radials SKIN: Warm and well perfused. ?? NEURO: following commands, and moving all extremities.? EKG from??06/28/2023, no concerning findings there. Assessment/Plan 1.??Palpitation See provider??clinical summary above Allergies Other Environmental Allergy Remicade sodium chloride Home Medications acetaminophen-HYDROcodone 325 mg-5 mg oral [...] 15 mg= 1.5 tablet, By Mouth, Daily Meloxicam, Daily metoprolol 25 mg oral tablet, extended release, 25 mg= 1 tablet, By Mouth, Daily, 5 refills mirtazapine 15 mg oral tablet, See Instructions Norethindrone Tablet, 5 mg, By Mouth, Daily promethazine 25 mg oral tablet Risperidone, 0.5 mg Tall Cam Walker Boot Right, See Instructions Tizanidine, By Mouth Lab Results Cardiology Labs WBC:??12 k/mm3??High (12/22/22) RBC: 4.2 m/mm3 (12/22/22) Hgb: 12.8 Gm/dL (12/22/22) Hct: 40.2 % (12/22/22) MCV: 95.7 femtoliters (12/22/22) MCH: 30.5 pg (12/22/22) MCHC:??31.8 g/dL??Low (12/22/22) Platelet Count: 263 k/mm3 (12/22/22) RDW-SD: 45.3 femtoliters (12/22/22) Nucleated RBC (Automated): 0 #/100 WBC'S (12/22/22) Abs. Neut:??8.1 k/mm3??High (12/22/22) Abs. Lymph:??3.2 k/mm3??High (12/22/22) Abs. Fountain: 0.6 k/mm3 (12/22/22) Abs. Eo: 0 k/mm3 (12/22/22) Abs. Baso: 0.1 k/mm3 (12/22/22) Neut %: 67.4 % (12/22/22) Fountain %: 5.1 % (12/22/22) Eos %: 0.3 [...] (10/07/22) Diagnostic Impression ECG ECG 12-Lead ?? 08:32:27 Please click on pdf link to open report ?? Signed By: Jarrett Mccord MD ?? ECG 12-Lead ?? 08:32:27 Ventricular Rate: 86 BPM Atrial Rate: 86 BPM P-R Interval: 136 ms QRS Duration: 70 ms Q-T Interval: 392 ms QTC Calculation(Bazett): 469 ms P Fe [employer]: 70 degrees R Fe [employer]: -21 degrees T Fe [employer]: 9 degrees Sinus rhythm with occasional Premature ventricular complexes Otherwise normal ECG Confirmed by JARRETT MCCORD ([id number]) on 06/30/2023 9:10:26 AM ?? Childress: JARRETT MCCORD ?? Signed By: Jarrett Mccord MD Echo Echocardiogram - Complete ?? 10:29:30 [...] Allergic rhinitis Ankylosing spondylitis; Dr Brady at [facility] Anxiety Asthma Attention deficit hyperactivity disorder Bulimia [...] 11/21/18 Kidney stone removal Tonsillectomy and adenoidectomy Follow-Up Appointments Added Follow Up ?Time Frame ?Comments Ronald LINDO, Alix Randhawa?1 ?? Years Social History Alcohol Use: Current. Frequency: 1-2 times per year. Home/Environment Living situation: Home/Independent. Lives with: lives with parents. Nutrition/Health Diet: Regular. Other: restrictive anorexia, gastric sleeve 08/2019. Takes in 800 anant per day per patient. Feels highly stressed: Yes. Sexual Sexually involved in last 6 months: Yes. Gender identity: Identifies as female. Self described orientation: Straight or heterosexual. Preferred pronoun: She/her. Substance Abuse Use: Current. Type: Marijuana. Frequency: Daily. Tobacco Never smoker Family History Mother: Depression; Hypertension Father: Crohn's disease; Depression; Hypertension Sister: Depression Mat. Grandfather: CAD - Coronary artery disease; Cancer of prostate; Prostate cancer; Stroke Aunt: Breast cancer Patient Care team information Care Team Personnel Name: Cassius Alvarez MD Position: [facility] Physician - Primary Care Member Role: PCP Address: Address: [address] [place] [address]- Name: Rosalva Fletcher Position: [facility] Outreach Member Role: Lifetime Consulting Physician Care Team Related Persons Name: MERCED ARENAS Address: home [address] [place] [address] Name: KALEY ARENAS Address: home [address] [place] [address] Name: DIMA VILLASENOR Address: home [address] [place] [address]
--- OUTSIDE RECORDS SUMMARY | 2024-03-16 11:46 | XMS_ITS | Continuity of Care Document ---
Author Organization [facility] Address [address] [place] [address]- Care Team Providers Care Registered Radiation Therapist Name Role Phone Cassius Alvarez MD Primary Care Physician [phone] Encounter [facility] Date(s): 04/20/22 - 05/20/22 [facility] [address] [place], [place] [address] Allergies, Adverse Reactions, Alerts Substance Reaction [...] influenza virus vaccine, inactivated 04/19/09 [place] rded [id number] 12y+ bivalent booster vax 04/18/22 Recorded SARS-CoV-2 mRNA (sniapbn-citr-jvjln) vax 10/09/21 Recorded SARS-CoV-2 (COVID-19) mRNA BNT-162b2 [...] 1 Refills, Maintenance, 05/18/22 13:39:00 EST, Inhaler, [facility]/pharmacy #[id number], Partial fill upon patient request [...] Replace Required Details, Route to Pharmacy Electronically, [facility] #[id number],... Start Date: 04/29/22 Status: Ordered Home Blood [...] 05/22/22 10:27:00 EST, 05/15/22 10:27:00 EDT, Tablet, [facility]/pharmacy #[id number], Partial fill upon patient request [...] 08/25/17 Active Ankylosing spondylitis; Dr Brady at [facility] Confirmed 03/31/13 Active Anxiety Confirmed [...] Team Personnel Name: Cassius Alvarez MD Position: [facility] Primary Care Physician Member Role: PCP Address: Address: [address] [place] [address] Name: Rosalva Fletcher Position: [facility] Outreach Member Role: Lifetime Consulting Physician Care Team Related Persons Name: MERCED ARENAS Address: home [address] [place] [id number] Name: KALEY ARENAS Address: home [address] [place] [address]
--- OUTSIDE RECORDS SUMMARY | 2024-03-16 11:46 | XMS_ITS | Continuity of Care Document ---
Author Organization [facility] Address [address] [place] [address]- Care Team Providers Care Carpenter Helper Maintenance Name Role Phone Cassius Alvarez MD Primary Care Physician [phone] [place] [facility] [place] 08/17/22 - 09/16/22 [facility] [address] [place], [place] [address] Allergies, Adverse Reactions, Alerts Substance [...] influenza virus vaccine, inactivated 04/19/09 [place] rded [id number] 12y+ bivalent booster vax 04/18/22 Recorded SARS-CoV-2 mRNA (vbqqdcd-kqch-gmtlc) vax 10/09/21 Recorded SARS-CoV-2 (COVID-19) mRNA BNT-162b2 [...] Maintenance, 06/24/22 9:28:00 EST, Inhalation Solution, [facility]/pharmacy #[id number], Partial fill upon patient request if the [...] 08/25/17 Active Ankylosing spondylitis; Dr Brady at [facility] Confirmed 03/31/13 Active Anxiety Confirmed 07/04/14 [...] Team Personnel Name: Cassius Alvarez MD Position: [facility] Primary Care Physician Member Role: PCP Address: Address: [address] [place] [address]- Name: Rosalva Fletcher Position: [facility] Outreach Member Role: Lifetime Consulting Physician Care Team Related Persons Name: MERCED ARENAS Address: home [address] [place] [address] Name: KALEY ARENAS Address: home [address] [place] [address]
--- OUTSIDE RECORDS SUMMARY | 2024-03-16 11:46 | XMS_ITS | Continuity of Care Document ---
Author Organization [facility] Address [address] [place] [address]- Care Team Providers Care Dental Equipment Repairer Name Role Phone Cassius Alvarez MD Primary Care Physician [place] [facility] [place] [id number] Date(s): 12/08/22 - 01/07/23 [place] [id number] [address]- Attending Physician: Padma Gandara Admitting Physician: Admtr [id number] Referring Physician: Admtr, Ar8 Allergies, Adverse [...] influenza virus vaccine, inactivated 04/19/09 [place] rded [id number] 12y+ bivalent booster vax 04/18/22 Recorded SARS-CoV-2 mRNA (ojpkkdw-hcdf-kqbgr) vax 10/09/21 Recorded SARS-CoV-2 (COVID-19) mRNA BNT-162b2 [...] rded Haemophilus B Conj Vaccine (oldterm) 92 [place] rded diphtheria/tetanus/pertussis, acel(DTaP) 04/25/93 Recorded diphtheria/tetanus/pertussis, acel(DTaP) 02/23/93 Recorded diphtheria/tetanus/pertussis, acel(DTaP) 92 Recorded hepatitis B pediatric vaccine 04/25/93 Recorded hepatitis B pediatric vaccine 92 Recorded hepatitis B pediatric vaccine 92 Recorded Medications Albuterol (Eqv-ProAir HFA) 90 mcg/inh inhalation aerosol 2 puffs, Inhalation, Every 4 hours, PRN cough, shortness of breath, wheezing, # 8.5 Gm, 1 Refills, Maintenance, 12/22/22 8:57:00 EDT, Inhaler, [facility] #[id number], Partial fill upon patient request if the prescription is for a schedule II opio... Start Date: 12/22/22 Status: Ordered albuterol 0.083% inhalation solution 3 mL = 2.5 mg, Neb, Every 6 hours, PRN Wheezing/Shortness of Breath, J45.909, # 100 each, 1 Refills, Maintenance, 06/24/22 9:28:00 EST, Inhalation Solution, [facility]/pharmacy #[id number], Partial fill upon [...] 11/28/22 16:43:00 EDT, [id number],160, cm, 10/07/22 14:33:00 EDT, Height, 85.4, kg, [...] tablet, 3 Refills, Maintenance, 10/07/22 15:08:00 EDT, [facility] #[id number], Partial fill upon patient request if the [...] spondylitis; Dr Brady at [facility] Confirmed 03/31/13 Active Anxiety Confirmed 07/04/14 [...] Team Personnel Name: Cassius Alvarez MD Position: [facility] Physician - Primary Care Member Role: PCP Address: Address: [address] [place] [address] Name: Rosalva Fletcher Position: [facility] Outreach Member Role: Lifetime Consulting Physician Care Team Related Persons Name: MERCED ARENAS Address: [address] [address] Name: KALEY ARENAS Address: [address] [address]
--- OUTSIDE RECORDS SUMMARY | 2024-03-16 11:47 | XMS_ITS | Continuity of Care Document ---
Author Organization [facility] Address [address] [place] [address]- Care Team Providers Care Tanning Wheel Operator Name Role Phone Cassius Alvarez MD Primary Care Physician [place] [facility] [place] 05/19/22 [facility] [address] [place] [address]- Encounter Diagnosis Hypotension(Discharge Diagnosis) - 05/12/22 (Discharge Diagnosis) - 05/12/22 Attending Physician: Cassius Alvarez MD Allergies, Adverse [...] influenza virus vaccine, inactivated 04/19/09 [place] rded [id number] 12y+ bivalent booster vax 04/18/22 Recorded SARS-CoV-2 mRNA (yjcaixg-tocl-fggcm) vax 10/09/21 Recorded SARS-CoV-2 (COVID-19) mRNA BNT-162b2 [...] 1 Refills, Maintenance, 05/18/22 13:39:00 EST, Inhaler, [facility]/pharmacy #[id number], Partial fill upon patient [...] Replace Required Details, Route to Pharmacy Electronically, [facility][id number],... Start Date: 04/29/22 Status: Ordered Home Blood [...] 05/22/22 10:27:00 EST, 05/15/22 10:27:00 EDT, Tablet, [facility]/pharmacy #[id number], Partial fill upon patient [...] 08/25/17 Active Ankylosing spondylitis; Dr Brady at [facility] Confirmed 03/31/13 Active Anxiety Confirmed [...] Dates Health Status Clini anant Service Informant Hypotension Discharge Diagnosis 05/12/22 Discharge Diagnosis 05/12/22 Vital Signs Most recent to oldest [Reference Range]: 1 2 Height 160 cm (05/13/22 8:58 AM) 160 cm (05/12/22 9:22 AM) Weight 84.6 kg (05/13/22 8:58 AM) 84.6 kg (05/12/22 9:22 AM) Oxygen Saturation [94-100 %] 93 % *L* (05/12/22 9:22 AM) Pulse Rate [55-90 bpm] 116 bpm *H* (05/12/22 9:22 AM) Body Mass Index [18.5-24.99 kg/m2] 33.05 kg/m2 *>HHI* (05/12/22 9:22 AM) Blood Pressure [90-138/55-84 mm Hg] 96/6 4mm Hg (05/12/22 9:22 AM) Blood pressure sites Arm, left (05/12/22 9:22 AM) Social History Social History Type Response Smoking Status Never smoker entered on: 10/02/14 Sex Note * Darrell Erazo: PERFORM, SIGN, VERIFY Event Display: Patient Education/Instruction Authored Date: [id number] [facility] *No Edge Adult Ped Clinical Summary Name DAINA ARENAS Age 31 Years 1990 PCP Cassius Alvarez MD PCP Visit Date 05/12/2022 09:15:00 Additional Instructions: Scheduled Appointments?? Future Appointments ?No Future Appointments Scheduled Follow-Up Instructions ?? Diagnosis Hypotension, unspecified Medications: Please continue your medications until treatment [...] mcg/inh inhalation powder) 1 puff(s) Inhalation Daily. Next Dose: HydrOXYzine (hydrOXYzine hydrochloride 10 mg [...] orders Vital Signs Height 160 cm Weight 84.6 kg BMI 33.05 kg/m2 Blood Pressure 96 mm Hg/64 mm Hg Temperature Pulse Rate 116 bpm Respiratory Rate 02 Sat Mode of Delivery 93 %/ You can now view a summary of your hospital visit from the comfort of your home through a free online portal called [employer]. [employer] is a website that allows you to securely view your medical information including discharge summary, medications and follow-up visits. ??You can alsosend a secure electronic message to your doctor???s office to request appointments, renew medications or just ask a question. You can enroll at [email or web address] or register during your next office visit. [...] primary care provider, you may find a [facility] provider by calling [facility] at [phone]. For information about the plan of care [...] Name: Cassius Alvarez MD Position: [facility] Primary Care Physician Member Role: PCP Address: Address: [address] [place] [id number] Name: Rosalva Fletcher Position: [facility] Outreach Member Role: Lifetime Consulting Physician Care Team Related Persons Name: ALYSA ARENAS Address: [address] [address] Name: KALEY ARENAS Address: [address] [address]
--- OUTSIDE RECORDS SUMMARY | 2024-03-16 11:47 | XMS_ITS | Continuity of Care Document ---
Author Organization [facility] Address [address] [place] [address]- Care Team Providers Care Vice Chair Name Role Phone Cassius Alvarez MD Primary Care Physician Encounter [facility] Date(s): 07/20/22 - 08/19/22 [facility] [address] [place], [place] [address] Allergies, Adverse Reactions, Alerts Substance Reaction [...] influenza virus vaccine, inactivated 04/19/09 [place] rded [id number] 12y+ bivalent booster vax 04/18/22 Recorded SARS-CoV-2 mRNA (siamubv-qvat-mztbk) vax 10/09/21 Recorded SARS-CoV-2 (COVID-19) mRNA BNT-162b2 [...] Maintenance, 06/24/22 9:28:00 EST, Inhalation Solution, [facility]/pharmacy #[id number], Partial fill upon patient request if the [...] Replace Required Details, Route to Pharmacy Electronically, [id number],... Start Date: 04/29/22 Status: Ordered hydrOXYzine hydrochloride [...] Team Personnel Name: Cassius Alvarez MD Position: [facility] Primary Care Physician Member Role: PCP Address: Address: [address] [place] [address]- Name: Rosalva Fletcher Position: [facility] Outreach Member Role: Lifetime Consulting Physician Care Team Related Persons Name: MERCED ARENAS Address: home [address] [place] [address] Name: KALEY ARENAS Address: home [address] [place] [address]
--- OUTSIDE RECORDS SUMMARY | 2024-03-16 11:47 | XMS_ITS | Continuity of Care Document ---
Author Organization [facility] Address [address] [place] [address]- Care Team Providers Care Retail Sales Manager Name Role Phone Cassius Alvarez MD Primary Care Physician Encounter [facility] Date(s): 04/17/22 - 05/17/22 [facility] [address] [place], [place] [address] Allergies, Adverse Reactions, Alerts Substance [...] influenza virus vaccine, inactivated 04/19/09 [place] rded [id number] 12y+ bivalent booster vax 04/18/22 Recorded SARS-CoV-2 mRNA (nttsptf-meho-wglsc) vax 10/09/21 Recorded SARS-CoV-2 (COVID-19) mRNA BNT-162b2 [...] Replace Required Details, Route to Pharmacy Electronically, [facility] #[id number],... Start Date: 04/29/22 Status: Ordered hydrOXYzine hydrochloride 10 mg oral tablet TAKE 1 TABLET BY MOUTH 3 TO 4 TIMES DAILY NEEDED FOR ANXIETY Start Date: 02/02/22 Status: Ordered metroNIDAZOLE 500 mg oral tablet 1 tablet = 500 mg, By Mouth, Every 12 hours, for 7 days, # 14 tablet, 0 Refills, Acute 05/22/22 10:27:00 EST, 05/15/22 10:27:00 EDT, Tablet, [facility]/pharmacy #[id number], Partial fill upon patient request if the [...] 08/25/17 Active Ankylosing spondylitis; Dr Brady at [facility] Confirmed 03/31/13 Active Anxiety Confirmed 07/04/14 [...] Personnel Name: Cassius Alvarez MD Address: Address: [address] [place] [address]
--- OUTSIDE RECORDS SUMMARY | 2024-03-16 11:47 | XMS_ITS | Continuity of Care Document ---
Author Organization [facility] Address [address] [place] [address]- Care Team Providers Care Membership Administrator Name Role Phone Cassius Alvarez MD Primary Care Physician [phone] Encounter [facility] Date(s): 06/29/23 - 07/29/23 [facility] [address] [place], [place] [address] Attending Physician: Padma Gandara Admitting Physician: [...] influenza virus vaccine, inactivated 04/19/09 [place] rded [id number]-[id number] 12y+ bivalent booster vax 04/18/22 Recorded SARS-CoV-2 mRNA (lniacpk-ypsr-fthbg) vax 10/09/21 Recorded SARS-CoV-2 (COVID-19) mRNA BNT-162b2 [...] B pediatric vaccine 92 Recorded 1Result Comment: [facility] [id number] Medications acetaminophen-HYDROcodone 325 mg-5 mg oral tablet 1 tablet, By Mouth, Daily at bedtime, PRN Pain , Moderate, # 28 tablet, 0 Refills, Maintenance, 03/19/23 16:43:00 EDT, [facility] #[id number], Partial fill upon patient request if the prescription is for a schedule II opioid drug., 1 tablet By Mo... Start Date: 03/19/23 Status: Ordered Albuterol (Eqv-ProAir HFA) 90 mcg/inh inhalation aerosol 2 puffs, Inhalation, Every 4 hours, PRN cough, shortness of breath, wheezing, # 8.5 Gm, 1 Refills, Maintenance, 12/22/22 8:57:00 EDT, Inhaler, [facility] #[id number], Partial fill upon patient request if the prescription is for a schedule II opio... Start Date: 12/22/22 Status: Ordered albuterol 0.083% inhalation solution 3 mL = 2.5 mg, Neb, Every 6 hours, PRN Wheezing/Shortness of Breath, J45.909, # 100 each, 1 Refills, Maintenance, 06/24/22 9:28:00 EST, Inhalation Solution, [facility]/pharmacy #[id number], Partial fill upon patient request [...] tablet, 0 Refills, Maintenance, 02/02/23 11:13:00 EDT, [facility] #[id number], Partial fill upon patient request if the prescription is for a schedule II opioid drug., 160, cm, 02/02/23 10... Start Date: 02/02/23 Status: Ordered famotidine 20 mg oral tablet 1, tablet, By Mouth, 2 times a day, PRN, # 180 tablet, Refills 1, Maintenance, NEEDED FOR REFLUXOR HEARTBURN, 05/23/23 8:05:00 EST, Route to Pharmacy Electronically, [facility] #[id number], 160, cm, 04/27/23 10:14:00 EDT, Height, 85.4, [...] 04/27/23 10:17:00 EDT, Route to Pharmacy Electronically, [facility] #[id number], Partial fill upon patientrequest if the prescription [...] stone Confirmed 07/04/14 Active Leukocytosis; seen by [facility] in 2015 Confirmed 08/15/15 Active Nausea and vomiting Confirmed Active Obsessive-compulsive disorder Confirmed 07/04/14 Active Obstructive sleep apnea syndrome Confirmed 10/08/14 Active Palpitation Confirmed Active Depression, major, recurrent Confirmed 07/04/14 Active Severe obesity Confirmed Active Varicella non-immune Confirmed 01/27/22 Active Social History Social History Type Response Smoking Status Never smoker entered on: 10/02/14 Sex Radiology * Event Display: MRI Spine, Non- BH Authored Date: Patient Care team information Care Team Personnel Name: Cassius Alvarez MD Position: [facility] Physician - Primary Care Member Role: PCP Address: Address: [address] [place] [address] Name: Rosalva Fletcher Position: [facility] Outreach Member Role: Lifetime Consulting Physician Care Team Related Persons Name: MERCED ARENAS Address: [address] [address] Name: KALEY ARENAS Address: [address] [address] Name: DIMA VILLASENOR Address: [address] [address]
--- OUTSIDE RECORDS SUMMARY | 2024-03-16 11:47 | XMS_ITS | Continuity of Care Document ---
Author Organization [facility] Address [address] [place] [address]- Care Team Providers Care Typing Element Machine Operator Name Role Phone Cassius Alvarez MD Primary Care Physician Encounter [facility] ACCT R [id number] Date(s): 06/24/22 - 07/01/22 [facility] [address] [place] [address]- Encounter Diagnosis Asthma(Discharge Diagnosis) - 06/27/22 Depression, major, recurrent(Discharge Diagnosis) - 06/27/22 Attending Physician: Cassius Alvarez MD Allergies, Adverse [...] influenza virus vaccine, inactivated 04/19/09 [place] rded [id number]-OjP-7sBIT 12y+ bivalent booster vax 04/18/22 Recorded SARS-CoV-2 mRNA (feabtpj-lztn-fvlou) vax 10/09/21 Recorded SARS-CoV-2 (COVID-19) mRNA BNT-162b2 [...] Refills, Maintenance, 06/24/22 9:28:00 EST, Inhalation Solution, [facility]/pharmacy #[id number], Partial fill upon patient request [...] 1 Refills, Maintenance, 05/18/22 13:39:00 EST, Inhaler, [facility]/pharmacy #[id number], Partial fill upon patient request [...] Replace Required Details, Route to Pharmacy Electronically, [facility] #[id number],... Start Date: 04/29/22 Status: Ordered Home Blood [...] 08/25/17 Active Ankylosing spondylitis; Dr Brady at [facility] Confirmed 03/31/13 Active Anxiety Confirmed [...] stone Confirmed 07/04/14 Active Leukocytosis; seen by [facility] in 2015 Confirmed 08/15/15 Active Nausea and vomiting Confirmed Active Obese class I Confirmed Active Obsessive-compulsive disorder Confirmed 07/04/14 Active Obstructive sleep apnea syndrome Confirmed 10/08/14 Active Palpitation Confirmed Active Depression, major, recurrent Confirmed 07/04/14 Active Varicella non-immune Confirmed 01/27/22 Active Diagnosis Diagnosis Type Effective Dates Health Status inical Service Informant Asthma Discharge Diagnosis 06/27/22 Depression, major, recurrent Discharge Diagnosis 06/27/22 Vital Signs Most recent to oldest [Reference Range]: 1 Height 160 cm (06/24/22 8:58 AM) Weight 86.5 kg (06/24/22 8:58 AM) Oxygen Saturation [94-100 %] 99 % (06/24/22 8:58 AM) Pulse Rate [55-90 bpm] 120 bpm *H* (06/24/22 8:58 AM) Body Mass Index [18.5-24.99 kg/m2] 33.79 kg/m2 *>HHI* (06/24/22 8:58 AM) Blood Pressure [90-138/55-84 mm Hg] 124/ 74mm Hg (06/24/22 8:58 AM) Blood pressure sites Arm, left (06/24/22 8:58 AM) Social History Social History Type Response Smoking Status Never smoker entered on: 10/02/14 Sex Note * Azalea Cannon: PERFORM, SIGN, VERIFY Event Display: Patient Education/Instruction Authored Date: [id number] [facility] *No Edge Adult Ped Clinical Summary Name DAINA ARENAS Age 31 Years 1990 PCP Cassius Alvarez MD PCP Visit Date 06/24/2022 08:32:00 Additional Instructions: Scheduled Appointments?? Future Appointments ?No Future Appointments Scheduled Follow-Up Instructions ?? Diagnosis Medications: Please continue your medications until treatment is completed or stopped by your provider. Discuss any questions related to medications with your provider. Medications to Continue Taking That Have Changed [id number], [address] [place], [place] [id number], [phone] - Albuterol (albuterol 0.083% inhalation solution) 3 Milliliter Nebulized inhalation every 6 hours as needed Wheezing/Shortness of Breath. J45.909. Refills: 1. Next Dose: - - fluticasone-vilanterol (Breo Ellipta 200 mcg-25 mcg/inh inhalation powder) 1 puff(s) Inhalation Daily. Refills: 0. Next Dose: These medications were not printed or sent to your pharmacy - Albuterol (Albuterol (Eqv-ProAir HFA) 90 mcg/inh inhalation aerosol) INHALE 2 PUFFS INTO THE LUNGS EVERY 4 HOURS NEEDED FOR COUGH OR WHEEZING. Next Dose: - fluticasone-vilanterol (Breo Ellipta 100 mcg-25 mcg/inh inhalation powder) 1 puff(s) Inhalation Daily. Refills: 1. Next Dose: Medications to Continue with No Changes These medications were not printed or sent to your pharmacy Certolizumab Subcutaneous, 1 Refill(s), Inject into the [...] REFLUX AND HEARTBURN. Refills: 0. Next Dose: HydrOXYzine (hydrOXYzine hydrochloride [...] orders Vital Signs Height 160 cm Weight 86.5 kg BMI 33.79 kg/m2 Blood Pressure 124 mm Hg/74 mm Hg Temperature Pulse Rate 120 bpm Respiratory Rate 02 Sat Mode of Delivery 99 %/ You can now view a summary of your hospital visit from the comfort of your home through a free online portal called [employer]. [employer] is a website that allows you to securely view your medical information including discharge summary, medications and follow-up visits. ??You can alsosend a secure electronic message to your doctor???s office to request appointments, renew medications or just ask a question. You can enroll at [email or web address] or register during your next office [...] a [facility] provider by calling [facility] [employer] at [phone]. For information about the plan of care [...] Team Personnel Name: Cassius Alvarez MD Position: [facility] Primary Care Physician Member Role: PCP Address: Address: [address] [place] [address] Name: Rosalva Fletcher Position: [facility] Outreach Member Role: Lifetime Consulting Physician Care Team Related Persons Name: MERCED ARENAS Address: [address] [address] Name: KALEY ARENAS Address: [address] [address]
--- OUTSIDE RECORDS SUMMARY | 2024-03-16 11:47 | XMS_ITS | Continuity of Care Document ---
Author Organization [facility] Address [address] [place] [address]- Care Team Providers Care Grain I Farmworker Name Role Phone Cassius Alvarez MD Primary Care Physician [phone] Encounter [facility] Date(s): 12/23/22 - 01/22/23 [facility] [address] [place], [place] [address] Allergies, Adverse Reactions, Alerts Substance [...] influenza virus vaccine, inactivated 04/19/09 [place] rded PNWG-RzG-[id number] 12y+ bivalent booster vax 04/18/22 Recorded SARS-CoV-2 mRNA (gjvnzkz-hsnu-lrzbq) vax 10/09/21 Recorded SARS-CoV-2 (COVID-19) mRNA BNT-162b2 [...] 1 Refills, Maintenance, 12/22/22 8:57:00 EDT, Inhaler, [facility] #[id number], Partial fill upon patient request if the prescription is for a schedule II opio... Start Date: 12/22/22 Status: Ordered albuterol 0.083% inhalation solution 3 mL = 2.5 mg, Neb, Every 6 hours, PRN Wheezing/Shortness of Breath, J45.909, # 100 each, 1 Refills, Maintenance, 06/24/22 9:28:00 EST, Inhalation Solution, [facility]/pharmacy #[id number], Partial fill upon patient [...] 11/28/22 16:43:00 EDT, [id number],160, cm, 10/07/22 14:33:00 EDT, Height, 85.4, kg, [...] tablet, 3 Refills, Maintenance, 10/07/22 15:08:00 EDT, [facility] #[id number], Partial fill upon patient request if the [...] Care Member Role: PCP Address: Address: [address] [place] [address] Name: Rosalva Fletcher Position: [facility] Outreach Member Role: Lifetime Consulting Physician Care Team Related Persons Name: MERCED ARENAS Address: home [address] [place] [address] Name: KALEY ARENAS Address: home [address] [place] [address]
--- OUTSIDE RECORDS SUMMARY | 2024-03-16 11:47 | XMS_ITS | Continuity of Care Document ---
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 Name Role Phone Cassius Alvarez MD Primary Care Physician [place] [facility] [place] [id number] Date(s): 07/07/22 - 08/06/22 [facility] [address] [place], [place] [address] Attending Physician: AdmPadma rocha Admitting Physician: Admtr, [...] influenza virus vaccine, inactivated 04/19/09 [place] rded [id number]-DfQ-4uHLZ 12y+ bivalent booster vax 04/18/22 Recorded SARS-CoV-2 mRNA (khgfpzf-etze-rxmzm) vax 10/09/21 Recorded SARS-CoV-2 (COVID-19) mRNA BNT-162b2 [...] Refills, Maintenance, 06/24/22 9:28:00 EST, Inhalation Solution, [facility]/pharmacy #[id number], Partial fill upon patient request [...] 1 Refills, Maintenance, 05/18/22 13:39:00 EST, Inhaler, [facility]/pharmacy #[id number], Partial fill upon patient request [...] Replace Required Details, Route to Pharmacy Electronically, [facility] #[id number],... Start Date: 04/29/22 Status: Ordered Home Blood [...] stone Confirmed 07/04/14 Active Leukocytosis; seen by [facility] in 2015 Confirmed 08/15/15 Active Nausea and [...] Team Personnel Name: Cassius Alvarez MD Position: [facility] Primary Care Physician Member Role: PCP Address: Address: [address] [place] [id number] Name: Rosalva Fletcher Position: [facility] Outreach Member Role: Lifetime Consulting Physician Care Team Related Persons Name: MERCED ARENAS Address: [address] [address] Name: KALEY ARENAS Address: [address] [address]
--- OUTSIDE RECORDS SUMMARY | 2024-03-16 11:47 | XMS_ITS | Continuity of Care Document ---
Author Organization [facility] Address [address] [place] [address]- Care Team Providers Care Validation Engineer Name Role Phone Cassius Alvarez MD Primary Care Physician [phone] [facility] [place] [id number] Date(s): 08/14/22 - 09/13/22 [facility] [address] [place], [place] [address] Attending Physician: AdmPadma rocha Admitting Physician: [...] influenza virus vaccine, inactivated 04/19/09 [place] rded MPRJ-JrC-6qJHL 12y+ bivalent booster vax 04/18/22 Recorded SARS-CoV-2 mRNA (mzsadtr-cnng-lagir) vax 10/09/21 Recorded SARS-CoV-2 (COVID-19) mRNA BNT-162b2 [...] Refills, Maintenance, 06/24/22 9:28:00 EST, Inhalation Solution, [facility]/pharmacy #[id number], Partial fill [...] stone Confirmed 07/04/14 Active Leukocytosis; seen by [facility] in 2015 Confirmed 08/15/15 Active Nausea [...] Physician Member Role: PCP Address: Address: [address] [place] [address]- Name: Rosalva Fletcher Position: [facility] Outreach Member Role: Lifetime Consulting Physician Care Team Related Persons Name: MERCED ARENAS Address: home [address] [place] [id number] Name: KALEY ARENAS Address: home [address] [place] [address]
--- OUTSIDE RECORDS SUMMARY | 2024-03-16 11:47 | XMS_ITS | Continuity of Care Document ---
Author Organization [facility] Address [address] [place] [address]- Care Team Providers Care Interventional Physiatrist Name Role Phone Cassius Alvarez MD Primary Care Physician Encounter [facility] Date(s): 09/01/22 - 10/01/22 [facility] [address] [place], [place] [address] Allergies, Adverse Reactions, Alerts Substance [...] influenza virus vaccine, inactivated 04/19/09 [place] rded CIRK-ZgB-2zJEC 12y+ bivalent booster vax 04/18/22 Recorded SARS-CoV-2 mRNA (hhyiler-dcbe-fpuyg) vax 10/09/21 Recorded SARS-CoV-2 (COVID-19) mRNA BNT-162b2 [...] Refills, Maintenance, 06/24/22 9:28:00 EST, Inhalation Solution, [facility]/pharmacy #[id number], Partial fill upon [...] Ankylosing spondylitis; Dr Brady at [facility] Confirmed 03/31/13 Active Anxiety Confirmed 07/04/14 Active [...] Team Personnel Name: Cassius Alvarez MD Position: [facility] Primary Care Physician Member Role: PCP Address: Address: [address] [place] [address] Name: Rosalva Fletcher Position: [facility] Outreach Member Role: Lifetime Consulting Physician Care Team Related Persons Name: MERCED ARENAS Address: home [address] [place] [address] Name: KALEY ARENAS Address: home [address] [place] [address]
--- OUTSIDE RECORDS SUMMARY | 2024-03-16 11:47 | XMS_ITS | Continuity of Care Document ---
Author Organization [facility] ter Address [address] [place] [address]- Care Team Providers Care Trial Justice Name Role Phone Cassius Alvarez MD Primary Care Physician Encounter [facility] Date(s): 08/29/22 - 12/23/[address] [address] Discharge Disposition: A-D/C Home Attending Physician: Jc Barbour DO Admitting Physician: Jc Barbour DO Referring Physician: Jc Barbour DO Allergies, Adverse Reactions, Alerts Substance Reaction [...] influenza virus vaccine, inactivated 04/19/09 [place] rded [id number] 12y+ bivalent booster vax 04/18/22 Recorded SARS-CoV-2 mRNA (srhsixb-lrqa-wqifi) vax 10/09/21 Recorded SARS-CoV-2 (COVID-19) mRNA BNT-162b2 [...] 1 Refills, Maintenance, 12/22/22 8:57:00 EDT, Inhaler, [facility] #[id number], Partial fill upon patient request if the prescription is for a schedule II opio... Start Date: 12/22/22 Status: Ordered albuterol 0.083% inhalation solution 3 mL = 2.5 mg, Neb, Every 6 hours, PRN Wheezing/Shortness of Breath, J45.909, # 100 each, 1 Refills, Maintenance, 06/24/22 9:28:00 EST, Inhalation Solution, [facility]/pharmacy #[id number], Partial fill upon patient [...] opioid drug. Start Date: 02/08/22 Status: Ordered doxycycline monohydrate 100 mg oral tablet 1 tablet = 100 mg, By Mouth, 2 times a day, for 10 days, with food, # 20 tablet, 0 Refills, Acute 01/01/23 8:56:00 EDT, 12/22/22 8:56:00 EDT, Tablet, [facility] #[id number], Partial fill upon patient request if the prescription is for a schedule... Start Date: 12/22/22 Stop Date: 01/01/23 Status: Ordered famotidine 20 mg oral tablet 1, tablet, By Mouth, 2 times a day, PRN, # 180 tablet, Refills 0, Maintenance, NEEDED FOR REFLUXOR HEARTBURN, 11/28/22 16:43:00 EDT, Route to Pharmacy Electronically, [facility] #[id number],160, cm, 10/07/22 14:33:00 EDT, Height, 85.4, kg, [...] tablet, 3 Refills, Maintenance, 10/07/22 15:08:00 EDT, [facility] #[id number], Partial fill upon patient request if the [...] Primary Care Member Role: PCP Address: Address: [address] [place] [address]- Name: Rosalva Fletcher Position: [facility] Outreach Member Role: Lifetime Consulting Physician Care Team Related Persons Name: MERCED ARENAS Address: home [address] [place] [address] Name: KALEY ARENAS Address: home [address] [place] [address]
--- OUTSIDE RECORDS SUMMARY | 2024-03-16 11:47 | XMS_ITS | Continuity of Care Document ---
Author Organization [facility] Address [address] [place] [address]- Care Team Providers Care Supply Chain Intern Name Role Phone Cassius Alvarez MD Primary Care Physician Encounter [facility] Date(s): 12/22/22 - 12/29/22 [facility] [address] [place], [place] [address] Encounter Diagnosis Skin rash(Discharge Diagnosis) - 12/22/22 Tick bite(Discharge Diagnosis) - 12/22/22 Attending Physician: Hemant Lund MD Allergies, Adverse Reactions, Alerts Substance Reaction [...] influenza virus vaccine, inactivated 04/19/09 [place] rded [id number] 12y+ bivalent booster vax 04/18/22 Recorded SARS-CoV-2 mRNA (yfpshvv-vubp-ajlzg) vax 10/09/21 Recorded SARS-CoV-2 (COVID-19) mRNA BNT-162b2 [...] 1 Refills, Maintenance, 12/22/22 8:57:00 EDT, Inhaler, [facility] #[id number], Partial fill upon patient request if the [...] 01/01/23 8:56:00 EDT, 12/22/22 8:56:00 EDT, Tablet, [facility] #[id number], Partial fill upon patient request if the prescription is for a schedule... Start Date: 12/22/22 Stop Date: 01/01/23 Status: Ordered famotidine 20 mg oral tablet 1, tablet, By Mouth, 2 times a day, PRN, # 180 tablet, Refills 0, Maintenance, NEEDED FOR REFLUXOR HEARTBURN, 11/28/22 16:43:00 EDT, Route to Pharmacy Electronically, [facility] #[id number],160, cm, 10/07/22 14:33:00 EDT, Height, 85.4, kg, [...] tablet, 3 Refills, Maintenance, 10/07/22 15:08:00 EDT, [facility] #[id number], Partial fill upon patient request if the [...] 08/25/17 Active Ankylosing spondylitis; Dr Brady at [facility] Confirmed 03/31/13 Active Anxiety Confirmed [...] Dates Health Status Clini anant Service Informant Skin rash Discharge Diagnosis 12/22/22 Tick bite Discharge Diagnosis 12/22/22 Vital Signs Most recent to oldest [Reference Range]: 1 Height 160 cm (12/22/22 8:27 AM) Weight 93.7 kg (12/22/22 8:27 AM) Pulse Rate [55-90 bpm] 67 bpm (12/22/22 8:27 AM) Body Mass Index [18.5-24.99 kg/m2] 36.6 kg/m2 *>HHI* (12/22/22 8:27 AM) Blood Pressure [90-138/55-84 mm Hg] 105/ 73mm Hg (12/22/22 8:27 AM) Blood pressure sites Arm, left (12/22/22 8:27 AM) Weight Obtained Via Standing scale (12/22/22 8:27 AM) Social History Social History Type Response Smoking Status Never smoker entered on: 10/02/14 Sex Note * Nina Lino: PERFORM, SIGN, VERIFY Event Display: Patient Education/Instruction Authored Date: [id number] [facility] *No [facility] Adult Ped Clinical Summary Name DAINA ARENAS Age 32 Years 1990 PCP Antonio MCKINNON, Cassius PCP Visit Date 12/22/2022 08:01:00 Additional Instructions: Scheduled Appointments?? Future Appointments ?No Future Appointments Scheduled Follow-Up Instructions ?? Diagnosis Bitten or stung by nonvenomous insect and other nonvenomous arthropods, initial encounter; Rash andother nonspecific skin eruption Medications: Please continue your medications until treatment is completed or stopped by your provider. Discuss any questions related to medications with your provider. New Medications [facility] #[id number], [address] [place] [phone], [phone] Doxycycline (doxycycline monohydrate 100 mg oral tablet) 1 tab(s) Oral twice a day for 10 Days. with food. Refills: 0. Next Dose: Medications to Continue Taking That Have Changed [employer] [facility] #[id number], [address] [place] [phone], [phone] - Albuterol (Albuterol (Eqv-ProAir HFA) 90 mcg/inh inhalation aerosol) 2 puff(s) Inhalation every 4hours as needed cough, shortness of breath, wheezing. Refills: 1. Next Dose: These medications were not printed or sent to your pharmacy - Albuterol (albuterol 0.083% inhalation solution) 3 Milliliter Nebulized inhalation every 6 hours as needed Wheezing/Shortness of Breath. J45.909. Refills: 1. Next Dose: Medications to Continue with No Changes These medications were not printed or sent to your pharmacy Certolizumab Subcutaneous, 1 Refill(s), Inject into the skin.. Next Dose: Doxylamine (Unisom 25 mg oral tablet) TAKE 1 TABLET BY MOUTH EVERY NIGHT AT BEDTIME NEEDED. Next Dose: Escitalopram (Lexapro 10 mg oral [...] twice a day. Refills: 3. Next Dose: No Longer Take the Following Medications BusPIRone (busPIRone 5 mg oral tablet) 1 tab(s) Oral twice a day. Allergy Info:?? Other Environmental Allergy; Remicade; sodium chloride Medications Given This Visit Future Orders ?No future orders Vital Signs Height 160 cm Weight 93.7 kg BMI 36.6 kg/m2 Blood Pressure 105 mm Hg/73 mm Hg Temperature Pulse Rate 67 bpm Respiratory Rate 02 Sat Mode of Delivery / You can now view a summary of your hospital visit from the comfort of your home through a free online portal called [employer]. [employer] is a website that allows you to securely view your medical information including discharge summary, medications and follow-up visits. ??You can alsosend a secure electronic message to your doctor???s office to request appointments, renew medications or just ask a question. You can enroll at [email or web address] or register during your next office [...] primary care provider, you may find a [facility] provider by calling [facility] [employer] [facility] at [phone]. For information about the plan of care including goals and instructions for your diagnosis, please see the patient education orders section of this document. Patient Education Materials?? The content of this educational material or handout may have been modified, supplemented, or adapted from its original content and format to support your individualized medical care. Lyme Disease Lyme disease is caused by bacteria. The infection is most often passed during the bite of a deer tick. The tick is very small, so many people with Lyme disease do not know they have been bitten. Tests for Lyme disease are not always accurate early in the disease. If the disease is suspected, treatment may begin before testing confirms the infection. A long course of antibiotics is the standard treatment. If untreated, Lyme disease can worsen and full-body symptoms can develop ??? Early local symptoms may appear within a few days to a month after the tick bite. These symptoms may include a round, red rash that looks like a bull's-eye target with darker outer ring and a darker center. There may fever, chills, fatigue, body aches, and headache. In time, the rash goes away,even without treatment. That doesn't mean the infection has gone away, however. In some cases, early local symptoms never develop. ??? Early disseminated symptoms may appear weeks to months after the bite. These can include muscleaches, fatigue, fever, headache, stiff neck, and joint pain and swelling. ??? Late-stage symptoms include weakness in an arm, leg or one side of the face, headache, fever, and numbness and tingling in the arms or legs, confusion, and memory loss. Testing is done for the presence of the bacteria. When the infection is treated early, it can be cured. In some cases, a second or third course of antibiotics may be needed. Be sure to follow your healthcare providers directions about treatment. Home care If oral antibiotics have been prescribed, take them exactly as directed until they are completely gone. Do not stop taking them until you have taken the full course or your healthcare provider has told you to stop. Ask your healthcare provider about taking tzhz-dtj-knywmqc medicines to control symptoms such as aches and fever. Follow-up care Follow up with your healthcare provider as advised. Be sure to return for follow-up testing as directed to be sure the infection has been treated. When to seek medical advice Call your healthcare provider right away if any of the following occur: ??? Current symptoms get worse ??? Unexplained fever, neck pain or stiffness, or headache ??? Arm, leg or facial weakness ??? Joint pain or swelling ??? Numbness and tingling in the arms or legs ??? Confusion or memory loss ??? Irregular or rapid heartbeat ?? [id number] [employer]. [address] [place] [address], [place] [address]. All rights reserved. This information is not intended as a substitute for professional medical care. Always follow your healthcare professional's instructions. Patient Care team information Care Team Personnel Name: Cassius Alvarez MD Position: [facility] Physician - Primary Care Member Role: PCP Address: Address: [address] [place] [address] Name: Roslava Fletcher Position: [facility] Outreach Member Role: Lifetime Consulting Physician Care Team Related Persons Name: MERCED ARENAS Address: [address] [address] Name: KALEY ARENAS Address: [address] [address]
--- OUTSIDE RECORDS SUMMARY | 2024-03-16 11:47 | XMS_ITS | Continuity of Care Document ---
Author Organization [facility] Address [address] [place] [address]- Care Team Providers Care Taper Printed Circuit Layout Name Role Phone Cassius Alvarez MD Primary Care Physician [phone] Encounter [facility] Date(s): 06/04/23 - 10/02/23 [facility] [address] [place], [place] [address] Attending Physician: Cassius Alvarez MD Allergies, Adverse [...] acel(Tdap) 06/05/22 Recorded tetanus/diphtheria/pertussis, acel(Tdap) 04/23/09 Recorded [id number] 12y+ bivalent booster vax 04/18/22 Recorded SARS-CoV-2 mRNA (kreeehw-bxga-gqtfl) vax 10/09/21 Recorded SARS-CoV-2 (COVID-19) mRNA BNT-162b2 [...] B pediatric vaccine 92 Recorded 1Result Comment: [facility] [id number] Medications acetaminophen-HYDROcodone 325 mg-5 mg oral tablet 1 tablet, By Mouth, Daily at bedtime, PRN Pain , Moderate, # 28 tablet, 0 Refills, Maintenance, 03/19/23 16:43:00 EDT, [facility] #[id number], Partial fill upon patient request if the prescription is for a schedule II opioid drug., 1 tablet By Mo... Start Date: 03/19/23 Status: Ordered Albuterol (Eqv-ProAir HFA) 90 mcg/inh inhalation aerosol 2 puffs, Inhalation, Every 4 hours, PRN cough, shortness of breath, wheezing, # 8.5 Gm, 1 Refills, Maintenance, 12/22/22 8:57:00 EDT, Inhaler, [facility] #[id number], Partial fill upon patient request if the prescription is for a schedule II opio... Start Date: 12/22/22 Status: Ordered albuterol 0.083% inhalation solution 3 mL = 2.5 mg, Neb, Every 6 hours, PRN Wheezing/Shortness of Breath, J45.909, # 100 each, 1 Refills, Maintenance, 06/24/22 9:28:00 EST, Inhalation Solution, [facility]/pharmacy #[id number], Partial fill upon patient request if [...] tablet, 0 Refills, Maintenance, 02/02/23 11:13:00 EDT, [facility] #[id number], Partial fill upon patient request if the prescription is for a schedule II opioid drug., 160, cm, 02/02/23 10... Start Date: 02/02/23 Status: Ordered famotidine 20 mg oral tablet 1, tablet, By Mouth, 2 times a day, PRN, # 180 tablet, Refills 1, Maintenance, NEEDED FOR REFLUXOR HEARTBURN, 05/23/23 8:05:00 EST, Route to Pharmacy Electronically, [facility] #[id number], 160, cm, 04/27/23 10:14:00 EDT, Height, 85.4, [...] 04/27/23 10:17:00 EDT, Route to Pharmacy Electronically, [facility] #[id number], Partial fill upon patientrequest if the prescription [...] stone Confirmed 07/04/14 Active Leukocytosis; seen by [facility] in 2015 Confirmed 08/15/15 Active Nausea [...] Primary Care Member Role: PCP Address: Address: [address] [place] [address]- Name: Rosalva Fletcher Position: [facility] Outreach Member Role: Lifetime Consulting Physician Care Team Related Persons Name: MERCED ARENAS Address: home [address] [place] [address] Name: KALEY ARENAS Address: home [address] [place] [address] Name: DIMA VILLASENOR Address: home [address] [place] [address]
--- OUTSIDE RECORDS SUMMARY | 2024-03-16 11:47 | XMS_ITS | Continuity of Care Document ---
Author Organization [facility] Address [address] [place] [address]- Care Team Providers Care Family Services Worker Name Role Phone Cassius Alvarez MD Primary Care Physician [facility] Date(s): 07/21/22 - 08/20/22 [facility] [address] [place], [place] [address] Allergies, Adverse Reactions, Alerts Substance Reaction Severity [...] influenza virus vaccine, inactivated 04/19/09 [place] rded [id number] 12y+ bivalent booster vax 04/18/22 Recorded SARS-CoV-2 mRNA (oedmntb-ctsk-fnjij) vax 10/09/21 Recorded SARS-CoV-2 (COVID-19) mRNA BNT-162b2 [...] Inhalation Solution, [facility]/pharmacy #[id number], Partial fill upon patient request if the [...] Replace Required Details, Route to Pharmacy Electronically, [facility] #[id number],... Start Date: 04/29/22 Status: Ordered hydrOXYzine hydrochloride [...] 08/25/17 Active Ankylosing spondylitis; Dr Brady at [facility] Confirmed 03/31/13 Active Anxiety Confirmed [...] Team Personnel Name: Cassius Alvarez MD Position: [facility] Primary Care Physician Member Role: PCP Address: Address: [address] [place] [address]- Name: Rosalva Fletcher Position: [facility] Outreach Member Role: Lifetime Consulting Physician Care Team Related Persons Name: MERCED ARENAS Address: home [address] [place] [address] Name: KALEY ARENAS Address: [address] [address]
--- OUTSIDE RECORDS SUMMARY | 2024-03-16 11:47 | XMS_ITS | Continuity of Care Document ---
Author Organization [facility] Address [address] [place] [address]- Care Team Providers Care Analytical Manager Name Role Phone Cassius lAvarez MD Primary Care Physician [phone] Encounter [facility] Date(s): 06/22/23 - 07/22/23 [facility] [address] [place], [place] [address] Allergies, Adverse Reactions, Alerts Substance [...] [place] rded influenza virus vaccine, inactivated 04/19/09 [place] rded [id number] 12y+ bivalent booster vax 04/18/22 Recorded SARS-CoV-2 mRNA (sloxdzl-lucz-fjagu) vax 10/09/21 Recorded SARS-CoV-2 (COVID-19) mRNA BNT-162b2 [...] B pediatric vaccine 92 Recorded 1Result Comment: [facility] [id number] Medications acetaminophen-HYDROcodone 325 mg-5 mg oral tablet 1 tablet, By Mouth, Daily at bedtime, PRN Pain , Moderate, # 28 tablet, 0 Refills, Maintenance, 03/19/23 16:43:00 EDT, [facility] #[id number], Partial fill upon patient request if the prescription is for a schedule II opioid drug., 1 tablet By Mo... Start Date: 03/19/23 Status: Ordered Albuterol (Eqv-ProAir HFA) 90 mcg/inh inhalation aerosol 2 puffs, Inhalation, Every 4 hours, PRN cough, shortness of breath, wheezing, # 8.5 Gm, 1 Refills, Maintenance, 12/22/22 8:57:00 EDT, Inhaler, [facility] #[id number], Partial fill upon patient request if the [...] tablet, 0 Refills, Maintenance, 02/02/23 11:13:00 EDT, [facility] #[id number], Partial fill upon patient request if the prescription is for a schedule II opioid drug., 160, cm, 02/02/23 10... Start Date: 02/02/23 Status: Ordered famotidine 20 mg oral tablet 1, tablet, By Mouth, 2 times a day, PRN, # 180 tablet, Refills 1, Maintenance, NEEDED FOR REFLUXOR HEARTBURN, 05/23/23 8:05:00 EST, Route to Pharmacy Electronically, [facility] #[id number], 160, cm, 04/27/23 10:14:00 EDT, Height, 85.4, [...] 04/27/23 10:17:00 EDT, Route to Pharmacy Electronically, [facility] #[id number], Partial fill upon patientrequest if the prescription [...] Personnel Name: Cassius Alvarez MD Position: [facility] Physician - Primary Care Member Role: PCP Address: Address: [address] [place] [address] Name: Rosalva Fletcher Position: [facility] Outreach Member Role: Lifetime Consulting Physician Care Team Related Persons Name: MERCED ARENAS Address: home [address] [place] [address] Name: KALEY ARENAS Address: [address] [address] Name: DIMA VILLASENOR Address: home [address] [place] [address]
--- OUTSIDE RECORDS SUMMARY | 2024-03-16 11:47 | XMS_ITS | Continuity of Care Document ---
Author Organization [facility] Address [address] [place] [address]- Care Team Providers Care Optometry Doctor Name Role Phone Cassius Alvarez MD Primary Care Physician [place] [facility] [place]s): 02/02/22 - 03/04/22 [facility] [address] [place], [place] [address] Attending Physician: Admtr, [id number] Admitting Physician: Admtr, Padma Referring Physician: Admtr, Ar8 Allergies, Adverse Reactions, Alerts Substance Reaction Severity Status Remicade Active Immunizations Given and Recorded Vaccine Date Status Refusal Reason SARS-CoV-2 mRNA (epxbrlu-alag-iyaja) vax 10/09/21 Recorded SARS-CoV-2 (COVID-19) mRNA BNT-162b2 [...] 02/04/22 13:40:00 EDT, Route to Pharmacy Electronically, [facility] #07... Start Date: 02/04/22 Status: Ordered hydrOXYzine [...] Active Ankylosing spondylitis; Dr Yaron laughlin at [facility](Confirmed) 03/31/13 Active Anxiety(Confirmed) 07/04/14 Active [...]
--- OUTSIDE RECORDS SUMMARY | 2024-03-16 11:47 | XMS_ITS | Continuity of Care Document ---
Author Organization [facility] Address [address] [place] [address]- Care Team Providers Care Pediatrics Hospitalist Name Role Phone Cassius Alvarez MD Primary Care Physician Encounter [facility] Date(s): 02/16/23 - 03/18/23 [facility] [address] [place], [place] [address] Allergies, Adverse Reactions, Alerts Substance [...] influenza virus vaccine, inactivated 04/19/09 [place] rded [id number] 12y+ bivalent booster vax 04/18/22 Recorded SARS-CoV-2 mRNA (sldpuof-vogc-npopy) vax 10/09/21 Recorded SARS-CoV-2 (COVID-19) mRNA BNT-162b2 [...] tablet, 0 Refills, Maintenance, 02/10/23 15:56:00 EDT, [facility] #[id number], Partial fill upon patient request if the prescription is for a schedule II opioid drug., 1 tablet By Mo... Start Date: 02/10/23 Status: Ordered Albuterol (Eqv-ProAir HFA) 90 mcg/inh inhalation aerosol 2 puffs, Inhalation, Every 4 hours, PRN cough, shortness of breath, wheezing, # 8.5 Gm, 1 Refills, Maintenance, 12/22/22 8:57:00 EDT, Inhaler, [facility] #[id number], Partial fill upon patient request if the prescription is for a schedule II opio... Start Date: 12/22/22 Status: Ordered albuterol 0.083% inhalation solution 3 mL = 2.5 mg, Neb, Every 6 hours, PRN Wheezing/Shortness of Breath, J45.909, # 100 each, 1 Refills, Maintenance, 06/24/22 9:28:00 EST, Inhalation Solution, [facility]/pharmacy #[id number], Partial fill upon patient request [...] tablet, 0 Refills, Maintenance, 02/02/23 11:13:00 EDT, [facility] #[id number], Partial fill upon patient request if the prescription is for a schedule II opioid drug., 160, cm, 02/02/23 10... Start Date: 02/02/23 Status: Ordered famotidine 20 mg oral tablet 1, tablet, By Mouth, 2 times a day, PRN, # 180 tablet, Refills 0, Maintenance, NEEDED FOR REFLUXOR HEARTBURN, 02/27/23 22:28:00 EDT, Route to Pharmacy Electronically, [facility] #[id number],160, cm, 02/02/23 10:34:00 EDT, Height, 85.4, kg, [...] Name: Cassius Alvarez MD Position: [facility] Physician - Primary Care Member Role: PCP Address: Address: [address] [place] [address] Name: Rosalva Fletcher Position: [facility] Outreach Member Role: Lifetime Consulting Physician Care Team Related Persons Name: MERCED ARENAS Address: home [address] [place] [address] Name: KALEY ARENAS Address: home [address] [place] [address] Name: DIMA VILLASENOR Address: home [address] [place] [address]
--- OUTSIDE RECORDS SUMMARY | 2024-03-16 11:47 | XMS_ITS | Continuity of Care Document ---
Author Organization [facility] Address [address] [place] [address]- Care Team Providers Care Global Human Resources Director Name Role Phone Cassius Alvarez MD Primary Care Physician [phone] [place] [facility] [id number] Date(s): 07/07/22 - 07/14/22 [facility] [address] [place] [address]- Encounter Diagnosis Asthma(Discharge Diagnosis) - 07/07/22 Attending Physician: Cassius Alvarez MD Allergies, Adverse [...] influenza virus vaccine, inactivated 04/19/09 [place] rded [id number] 12y+ bivalent booster vax 04/18/22 Recorded SARS-CoV-2 mRNA (rfyiogp-meak-cfdkx) vax 10/09/21 Recorded SARS-CoV-2 (COVID-19) mRNA BNT-162b2 [...] 06/24/22 9:28:00 EST, Inhalation Solution, [facility]/pharmacy #[id number], Partial fill upon patient request [...] 1 Refills, Maintenance, 05/18/22 13:39:00 EST, Inhaler, [facility]/pharmacy #[id number], Partial fill upon patient request [...] Replace Required Details, Route to Pharmacy Electronically, [facility] #[id number],... Start Date: 04/29/22 Status: Ordered Home Blood [...] 08/25/17 Active Ankylosing spondylitis; [facility] Confirmed 03/31/13 Active Anxiety Confirmed [...] stone Confirmed 07/04/14 Active Leukocytosis; seen by [facility] in 2015 Confirmed 08/15/15 Active Nausea and vomiting Confirmed Active Obese class I Confirmed Active Obsessive-compulsive disorder Confirmed 07/04/14 Active Obstructive sleep apnea syndrome Confirmed 10/08/14 Active Palpitation Confirmed Active Depression, major, recurrent Confirmed 07/04/14 Active Varicella non-immune Confirmed 01/27/22 Active Diagnosis Diagnosis Type Effective Dates Health Status Clini anant Service Informant Asthma Discharge Diagnosis 07/07/22 Vital Signs Most recent to oldest [Reference Range]: 1 Height 160 cm (07/07/22 4:09 PM) Weight 87.7 kg (07/07/22 4:09 PM) Oxygen Saturation [94-100 %] 97 % (07/07/22 4:09 PM) Pulse Rate [55-90 bpm] 114 bpm *H* (07/07/22 4:09 PM) Body Mass Index [18.5-24.99 kg/m2] 34.26 kg/m2 *>HHI* (07/07/22 4:09 PM) Blood Pressure [90-138/55-84 mm Hg] 116/ 66mm Hg (07/07/22 4:09 PM) Mode of Delivery (Oxygen) Room air (07/07/22 4:09 PM) Blood pressure sites Arm, left (07/07/22 4:09 PM) Weight Obtained Via Standing scale (07/07/22 4:09 PM) Social History Social History Type Response Smoking Status Never smoker entered on: 10/02/14 Sex Note * Amanda Wiseman: SIGN, VERIFY, PERFORM Event Display: Patient Education/Instruction Authored Date: [id number] [facility] *[facility] Adult [facility] Clinical Summary Name DAINA ARENAS Age 31 Years 1990 PCP Antonio MCKINNON, Cassius PCP Visit Date 07/07/2022 15:17:00 Additional Instructions: Scheduled Appointments?? Future Appointments ?No Future Appointments Scheduled Follow-Up Instructions ?? Diagnosis Unspecified asthma, uncomplicated Medications: Please continue your medications until treatment is completed or stopped by your provider. Discuss any questions related to medications with your provider. New Medications - Amoxicillin-Clavulanate (amoxicillin-clavulanate 400 mg-57 mg/5 ml oral powder for reconstitution) 10 Milliliter Oral every 12 hours for 7 Days. Refills: 0. Next Dose: Medications to Continue [...] puff(s) Inhalation Daily. Refills: 1. Next Dose: fluticasone-vilanterol (Breo Ellipta 200 mcg-25 [...] orders Vital Signs Height 160 cm Weight 87.7 kg BMI 34.26 kg/m2 Blood Pressure 116 mm Hg/66 mm Hg Temperature Pulse Rate 114 bpm Respiratory Rate 02 Sat Mode of Delivery 97 %/Room air You can now view a summary of your hospital visit from the comfort of your home through a free online portal called infoBizz. infoBizz is a website that allows you to securely view your medical information including discharge summary, medications and follow-up visits. ??You can alsosend a secure electronic message to your doctor???s office to request appointments, renew medications or just ask a question. You can enroll at [email or web address] or register during your next office [...] primary care provider, you may find a [facility] provider by calling [facility] [employer] Link at [phone]. For information about the plan of care [...] Care Physician Member Role: PCP Address: Address: [address] [place] [address] Name: Rosalva Fletcher Position: [facility] Outreach Member Role: Lifetime Consulting Physician Care Team Related Persons Name: MERCED ARENAS Address: [address] [address] Name: KALEY ARENAS Address: [address] [address]
--- OUTSIDE RECORDS SUMMARY | 2024-03-16 11:47 | XMS_ITS | Continuity of Care Document ---
Author Organization [facility] Address [address] [place] [address]- Care Team Providers Care Manager Commodities Name Role Phone Cassius Alvarez MD Primary Care Physician Encounter [facility] [place] Date(s): 05/12/22 - 06/11/22 [facility] [address] [place], [place] [address] Allergies, Adverse [...] influenza virus vaccine, inactivated 04/19/09 [place] rded [id number]-BtM-3cYUZ 12y+ bivalent booster vax 04/18/22 Recorded SARS-CoV-2 mRNA (lltjcla-zgnb-unbuz) vax 10/09/21 Recorded SARS-CoV-2 (COVID-19) mRNA BNT-162b2 [...] Refills, Maintenance, 05/18/22 13:39:00 EST, Inhaler, [facility]/pharmacy #[id number], Partial fill [...] Replace Required Details, Route to Pharmacy Electronically, [facility] #[id number],... Start Date: 04/29/22 Status: Ordered Home Blood [...] 08/25/17 Active Ankylosing spondylitis; Dr Brady at [facility] Confirmed 03/31/13 Active Anxiety Confirmed 07/04/14 [...] stone Confirmed 07/04/14 Active Leukocytosis; seen by [facility] in 2015 Confirmed 08/15/15 Active Nausea [...] Physician Member Role: PCP Address: Address: [address] [place] [address] Name: Rosalva Fletcher Position: [facility] Outreach Member Role: Lifetime Consulting Physician Care Team Related Persons Name: MERCED ARENAS Address: home [address] [place] [address] Name: KALEY ARENAS Address: home [address] [place] [address]
--- OUTSIDE RECORDS SUMMARY | 2024-03-16 11:48 | XMS_ITS | Continuity of Care Document ---
Author Organization [facility] Address [address] [place] [address]- Care Team Providers Care Snuff Packing Machine Operator Name Role Phone Cassius Alvarez MD Primary Care Physician [phone] [place] [facility] [place] 08/12/22 - 09/11/22 [facility] [address] [place], [place] [address] Allergies, Adverse Reactions, Alerts Substance Reaction [...] influenza virus vaccine, inactivated 04/19/09 [place] rded LFMF-FzM-1xRLZ 12y+ bivalent booster vax 04/18/22 Recorded SARS-CoV-2 mRNA (qcchyze-aqhl-gkpyr) vax 10/09/21 Recorded SARS-CoV-2 (COVID-19) mRNA BNT-162b2 [...] Refills, Maintenance, 06/24/22 9:28:00 EST, Inhalation Solution, [facility]/pharmacy #[id number], Partial fill upon patient request if the [...] 08/25/17 Active Ankylosing spondylitis; Dr Brady at [facility] Confirmed 03/31/13 Active Anxiety Confirmed [...] Personnel Name: Cassius Alvarez MD Position: [facility] Primary Care Physician Member Role: PCP Address: Address: [address] [place] [address]- Name: Rosalva Fletcher Position: [facility] Outreach Member Role: Lifetime Consulting Physician Care Team Related Persons Name: MERCED ARENAS Address: home [address] [place] [address] Name: KALEY ARENAS Address: home [address] [place] [address]
--- OUTSIDE RECORDS SUMMARY | 2024-03-16 11:48 | XMS_ITS | Continuity of Care Document ---
Author Organization [facility] Address [address] [place] [address]- Care Team Providers Care Tank Driver Name Role Phone Cassius Alvarez MD Primary Care Physician [phone] [place] [facility] [place](s): 08/14/22 - 08/21/22 [facility] [address] [place] [address]- Encounter Diagnosis Anxiety(Discharge Diagnosis) - 08/15/22 Attending Physician: Cassius Alvarez MD Allergies, Adverse [...] influenza virus vaccine, inactivated 04/19/09 [place] rded VOZY-SbZ-9xGIT 12y+ bivalent booster vax 04/18/22 Recorded SARS-CoV-2 mRNA (oeldwub-wfrl-ztdrx) vax 10/09/21 Recorded SARS-CoV-2 (COVID-19) mRNA BNT-162b2 [...] Refills, Maintenance, 06/24/22 9:28:00 EST, Inhalation Solution, [facility]/pharmacy #[id number], Partial fill upon patient request [...] Replace Required Details, Route to Pharmacy Electronically, [facility] #[id number],... Start Date: 04/29/22 Status: Ordered hydrOXYzine hydrochloride [...] 08/25/17 Active Ankylosing spondylitis; Dr Brady at [facility] Confirmed 03/31/13 Active Anxiety Confirmed 07/04/14 [...] Dates Health Status Clini anant Service Informant Anxiety Discharge Diagnosis 08/15/22 Social History Social History Type Response Smoking Status Never smoker entered on: 10/02/14 Sex Patient Care team information Care Team Personnel Name: Cassius Alvarez MD Position: [facility] Primary Care Physician Member Role: PCP Address: Address: [address] [place] [address] Name: Rosalva Fletcher Position: [facility] Outreach Member Role: Lifetime Consulting Physician Care Team Related Persons Name: MERCED RAENAS Address: home [address] [place] [address] Name: KALEY ARENAS Address: home [address] [place] [address]
--- OUTSIDE RECORDS SUMMARY | 2024-03-16 11:48 | XMS_ITS | Continuity of Care Document ---
Author Organization [facility] Address [address] [place] [address]- Care Team Providers Care Rubber Printing Machine Operator Name Role Phone Cassius Alvarez MD Primary Care Physician Encounter [facility] Date(s): 06/29/23 - 07/06/23 [facility] [address] [place], [place] [address] Attending Physician: Not on Staff, Attending MD [...] influenza virus vaccine, inactivated 04/19/09 [place] rded JJKW-KcQ-5kCGQ 12y+ bivalent booster vax 04/18/22 Recorded SARS-CoV-2 mRNA (mlmvpbd-ttof-xrhcs) vax 10/09/21 Recorded SARS-CoV-2 (COVID-19) mRNA BNT-162b2 [...] B pediatric vaccine 92 Recorded 1Result Comment: [facility] [id number] Medications acetaminophen-HYDROcodone 325 mg-5 mg oral tablet 1 tablet, By Mouth, Daily at bedtime, PRN Pain , Moderate, # 28 tablet, 0 Refills, Maintenance, 03/19/23 16:43:00 EDT, [facility] #[id number], Partial fill upon patient request if the prescription is for a schedule II opioid drug., 1 tablet By Mo... Start Date: 03/19/23 Status: Ordered Albuterol (Eqv-ProAir HFA) 90 mcg/inh inhalation aerosol 2 puffs, Inhalation, Every 4 hours, PRN cough, shortness of breath, wheezing, # 8.5 Gm, 1 Refills, Maintenance, 12/22/22 8:57:00 EDT, Inhaler, [facility] #[id number], Partial fill upon patient request if the prescription is for a schedule II opio... Start Date: 12/22/22 Status: Ordered albuterol 0.083% inhalation solution 3 mL = 2.5 mg, Neb, Every 6 hours, PRN Wheezing/Shortness of Breath, J45.909, # 100 each, 1 Refills, Maintenance, 06/24/22 9:28:00 EST, Inhalation Solution, [facility]/pharmacy #[id number], Partial fill upon patient request if [...] tablet, 0 Refills, Maintenance, 02/02/23 11:13:00 EDT, [facility] #[id number], Partial fill upon patient request if the prescription is for a schedule II opioid drug., 160, cm, 02/02/23 10... Start Date: 02/02/23 Status: Ordered famotidine 20 mg oral tablet 1, tablet, By Mouth, 2 times a day, PRN, # 180 tablet, Refills 1, Maintenance, NEEDED FOR REFLUXOR HEARTBURN, 05/23/23 8:05:00 EST, Route to Pharmacy Electronically, [facility] #[id number], 160, cm, 04/27/23 10:14:00 EDT, Height, 85.4, [...] 04/27/23 10:17:00 EDT, Route to Pharmacy Electronically, [facility] #[id number], Partial fill upon patientrequest if the prescription [...] spondylitis; Dr Brady at [facility] Confirmed 03/31/13 Active Anxiety Confirmed 07/04/14 [...] Status Never smoker entered on: 10/02/14 Sex EKG study * Event Display: ECG 12-Lead Authored Date: Please click on pdf link to open report * Event Display: ECG 12-Lead Authored Date: Ventricular Rate: 86 BPM Atrial Rate: 86 BPM P-R Interval: 136 ms QRS Duration: 70 ms Q-T Interval: 392 ms QTC Calculation(Bazett): 469 ms P Clinton: 70 degrees R Clinton: -21 degrees T Clinton: 9 degrees Sinus rhythm with occasional Premature ventricular complexes Otherwise normal ECG Confirmed by COLT MCCORD ([id number]) on 06/30/2023 9:10:26 AM [place]: COLT MCCORD Patient Care team information Care Team Personnel Name: Cassius Alvarez MD Position: [facility] Physician - Primary Care Member Role: PCP Address: Address: [address] [place] [address] Name: Rosalva Fletcher Position: [facility] Outreach Member Role: Lifetime Consulting Physician Care Team Related Persons Name: MERCED ARENAS Address: home [address] [place] [address] Name: KALEY ARENAS Address: home [address] [place] [address] Name: DIMA VILLASENOR Address: home [address] [place] [address]
--- OUTSIDE RECORDS SUMMARY | 2024-03-16 11:48 | XMS_ITS | Continuity of Care Document ---
Author Organization [facility] Address [address] [place] [address]- Care Team Providers Care Simulation Software Engineer Name Role Phone Cassius Alvarez MD Primary Care Physician [phone] Encounter [facility] [place] Date(s): 05/15/22 - 06/14/22 [facility] [address] [place], [place] [address] Allergies, Adverse Reactions, Alerts Substance [...] influenza virus vaccine, inactivated 04/19/09 [place] rded ZISS-TvS-5cBRP 12y+ bivalent booster vax 04/18/22 Recorded SARS-CoV-2 mRNA (odxitpx-mvox-zujog) vax 10/09/21 Recorded SARS-CoV-2 (COVID-19) mRNA BNT-162b2 [...] 1 Refills, Maintenance, 05/18/22 13:39:00 EST, Inhaler, [facility]/pharmacy #[id number], Partial fill upon patient request if [...] Required Details, Route to Pharmacy Electronically, [facility] #[id number],... Start Date: 04/29/22 Status: Ordered Home Blood [...] Ankylosing spondylitis; Dr Brady at [facility] Confirmed 03/31/13 Active Anxiety Confirmed 07/04/14 Active [...] stone Confirmed 07/04/14 Active Leukocytosis; seen by [facility] in 2015 Confirmed 08/15/15 Active Nausea [...] Name: Cassius Alvarez MD Position: [facility] Primary Care Physician Member Role: PCP Address: Address: [address] [place] [address] Name: Rosalva Fletcher Position: [facility] Outreach Member Role: Lifetime Consulting Physician Care Team Related Persons Name: MERCED ARENAS Address: home [address] [place] [address] Name: KALEY ARENAS Address: home [address] [place] [address]
--- OUTSIDE RECORDS SUMMARY | 2024-03-16 11:48 | XMS_ITS ---
Author Organization [facility] Address [address] [place] [address] Care Team Providers Care Ticket Sales Agent Name Role Phone MERLOS, AMOS Unavailable [phone] Encounters Encounter Location Date Provider Diagnosis [facility] [address] [place] [address] 05/12/2023 AMOS MERLOS PLAN OF TREATMENT No Information Progress Notes * SHABBIR ARENASOB: 3 (32 yo F)Acc No.[id number]:05/12/2023 Patient:??DAINA ARENAS :1990?Age:32 Y?Sex:Fe male Address:[address] [place] [address] * true * Date:??
--- OUTSIDE RECORDS SUMMARY | 2024-03-16 11:48 | XMS_ITS | Continuity of Care Document ---
Author Organization [facility] Address [address] [place] [address]- Care Team Providers Care Oil Filters Inspector Name Role Phone Cassius Alvarez MD Primary Care Physician Encounter [facility] Date(s): 09/01/23 - 10/01/23 [facility] [address] [place], [place] [address] Allergies, Adverse Reactions, Alerts Substance Reaction [...] acel(Tdap) 06/05/22 Recorded tetanus/diphtheria/pertussis, acel(Tdap) 04/23/09 Recorded ZPPY-HqD-1cAEW 12y+ bivalent booster vax 04/18/22 Recorded SARS-CoV-2 mRNA (wlniama-dpgp-qvxws) vax 10/09/21 Recorded SARS-CoV-2 (COVID-19) mRNA BNT-162b2 [...] B pediatric vaccine 92 Recorded 1Result Comment: [facility] [place]NOTE 2] [id number] Medications acetaminophen-HYDROcodone 325 mg-5 mg oral tablet 1 tablet, By Mouth, Daily at bedtime, PRN Pain , Moderate, # 28 tablet, 0 Refills, Maintenance, 03/19/23 16:43:00 EDT, [facility] #[id number], Partial fill upon patient request if the prescription is for a schedule II opioid drug., 1 tablet By Mo... Start Date: 03/19/23 Status: Ordered Albuterol (Eqv-ProAir HFA) 90 mcg/inh inhalation aerosol 2 puffs, Inhalation, Every 4 hours, PRN cough, shortness of breath, wheezing, # 8.5 Gm, 1 Refills, Maintenance, 12/22/22 8:57:00 EDT, Inhaler, [facility] #[id number], Partial fill upon patient request if the prescription is for a schedule II opio... Start Date: 12/22/22 Status: Ordered albuterol 0.083% inhalation solution 3 mL = 2.5 mg, Neb, Every 6 hours, PRN Wheezing/Shortness of Breath, J45.909, # 100 each, 1 Refills, Maintenance, 06/24/22 9:28:00 EST, Inhalation Solution, [facility]/pharmacy #[id number], Partial fill upon [...] tablet, 0 Refills, Maintenance, 02/02/23 11:13:00 EDT, [facility] #[id number], Partial fill upon patient request if the prescription is for a schedule II opioid drug., 160, cm, 02/02/23 10... Start Date: 02/02/23 Status: Ordered famotidine 20 mg oral tablet 1, tablet, By Mouth, 2 times a day, PRN, # 180 tablet, Refills 1, Maintenance, NEEDED FOR REFLUXOR HEARTBURN, 05/23/23 8:05:00 EST, Route to Pharmacy Electronically, [facility] #[id number], 160, cm, 04/27/23 10:14:00 EDT, Height, 85.4, [...] 04/27/23 10:17:00 EDT, Route to Pharmacy Electronically, [facility] #[id number], Partial fill upon patientrequest if the prescription [...] 08/25/17 Active Ankylosing spondylitis; Dr Brady at [facility] Confirmed 03/31/13 Active Anxiety Confirmed [...] stone Confirmed 07/04/14 Active Leukocytosis; seen by [facility] in 2015 Confirmed 08/15/15 Active Nausea [...] Team Personnel Name: Cassius Alvarez MD Position: [facility] Physician - Primary Care Member Role: PCP Address: Address: [address] [place] [address]- Name: Rosalva Fletcher Position: [facility] Outreach Member Role: Lifetime Consulting Physician Care Team Related Persons Name: MERCED ARENAS Address: [address] [address] Name: KALEY ARENAS Address: home [address] [place] [address] Name: DIMA VILLASENOR Address: home [address] [place] [address]
--- OUTSIDE RECORDS SUMMARY | 2024-03-16 11:48 | XMS_ITS | Continuity of Care Document ---
Author Organization [facility] Address [address] [place] [address]- Care Team Providers Care Manager Cost Name Role Phone Cassius Alvarez MD Primary Care Physician [phone] Encounter [place] Date(s): 07/07/22 - 08/06/22 [facility] [address] [place], [place] [address] Allergies, Adverse Reactions, Alerts Substance [...] influenza virus vaccine, inactivated 04/19/09 [place] rded TCRU-NyS-9yYWL 12y+ bivalent booster vax 04/18/22 Recorded SARS-CoV-2 mRNA (mehlild-lfby-fpgad) vax 10/09/21 Recorded SARS-CoV-2 (COVID-19) mRNA BNT-162b2 [...] Refills, Maintenance, 06/24/22 9:28:00 EST, Inhalation Solution, [facility]/pharmacy #[id number], Partial fill upon patient request if the [...] 1 Refills, Maintenance, 05/18/22 13:39:00 EST, Inhaler, [facility]/pharmacy #[id number], Partial fill upon patient request [...] Replace Required Details, Route to Pharmacy Electronically, [facility] #[id number],... Start Date: 04/29/22 Status: Ordered Home Blood [...] Ankylosing spondylitis; Dr Brady at [facility] Confirmed 03/31/13 Active Anxiety Confirmed 07/04/14 Active [...] Team Personnel Name: Cassius Alvarez MD Position: [facility] Primary Care Physician Member Role: PCP Address: Address: [address] [place] [address] Name: Rosalva Fletcher Position: [facility] Outreach Member Role: Lifetime Consulting Physician Care Team Related Persons Name: MERCED ARENAS Address: home [address] [place] [address] Name: KALEY ARENAS Address: home [address] [place] [address]
--- OUTSIDE RECORDS SUMMARY | 2024-03-16 11:48 | XMS_ITS | Continuity of Care Document ---
Author Organization [facility] Address [address] [place] [address]- Care Team Providers Care Manufacturer Agent Name Role Phone Cassius Alvarez MD Primary Care Physician [phone] [place] [facility] [place]13[place] 06/12/22 [facility] [address] [place], [place] [address] Allergies, Adverse Reactions, Alerts [...] influenza virus vaccine, inactivated 04/19/09 [place] rded DWQT-WyK-6lARN 12y+ bivalent booster vax 04/18/22 Recorded SARS-CoV-2 mRNA (pvsljko-lpyy-fybxk) vax 10/09/21 Recorded SARS-CoV-2 (COVID-19) mRNA BNT-162b2 [...] 1 Refills, Maintenance, 05/18/22 13:39:00 EST, Inhaler, [facility]/pharmacy #[id number], [...] Replace Required Details, Route to Pharmacy Electronically, [facility] #[id number],... Start Date: 04/29/22 Status: Ordered Home Blood [...] 08/25/17 Active Ankylosing spondylitis; Dr Brady at [facility] Confirmed 03/31/13 Active Anxiety Confirmed [...] stone Confirmed 07/04/14 Active Leukocytosis; seen by [facility] in 2015 Confirmed 08/15/15 Active [...] Team Personnel Name: Cassius Alvarez MD Position: [facility] Primary Care Physician Member Role: PCP Address: Address: [address] [place] [address] Name: Rosalva Fletcher Position: [facility] Outreach Member Role: Lifetime Consulting Physician Care Team Related Persons Name: MERCED ARENAS Address: home [address] [place] [address] Name: KALEY ARENAS Address: home [address] [place] [address]
--- OUTSIDE RECORDS SUMMARY | 2024-03-16 11:48 | XMS_ITS | Patient Health Record ---
Author Organization [facility] Address [address] [place] [address] Care Team Providers Care Asphalt Plant Laborer Name Role Phone MERLOS, NAYANAYOLY Unavailable [phone] REASON FOR REFERRAL No Information Encounters Encounter Location Date Provider Diagnosis [facility] [address] [place] [address] 05/12/2023 AMOS MERLOS PLAN OF TREATMENT No Information Insurance Providers Payer Name Payer Address Payer Phone Subscriber Number Group Number Insured Name Patient Relationship to Insured Coverage Start Date Coverage End Date [employer]/Angie or Options [address] [place] [id number] [phone] [id number] DAINA ARENAS Self - patient is the insured
--- OUTSIDE RECORDS SUMMARY | 2024-03-16 11:48 | XMS_ITS | Continuity of Care Document ---
Author Organization [facility] Address [address] [place] [address]- Care Team Providers Care Goldsmith Apprentice Name Role Phone Cassius Alvarez MD Primary Care Physician [phone] [place] [facility] [place] 11/01/22 [facility] [address] [place], [place] [address] Allergies, Adverse Reactions, Alerts Substance Reaction Severity [...] influenza virus vaccine, inactivated 04/19/09 [place] rded [id number] 12y+ bivalent booster vax 04/18/22 Recorded SARS-CoV-2 mRNA (wskxwmn-njag-idcnp) vax 10/09/21 Recorded SARS-CoV-2 (COVID-19) mRNA BNT-162b2 [...] EST, Inhalation Solution, [facility]/pharmacy #[id number], Partial fill upon patient request if the [...] tablet, 3 Refills, Maintenance, 10/07/22 15:08:00 EDT, [facility] #[id number], Partial fill upon patient request if the [...] Active Ankylosing spondylitis; Dr Brady at [facility] Confirmed 03/31/13 Active Anxiety Confirmed [...] stone Confirmed 07/04/14 Active Leukocytosis; seen by [facility] in 2015 Confirmed 08/15/15 Active Nausea and [...] Care Physician Member Role: PCP Address: Address: [address] [place] [address] Name: Rosalva Fletcher Position: [facility] Outreach Member Role: Lifetime Consulting Physician Care Team Related Persons Name: MRECED ARENAS Address: [address] [address] Name: KALEY ARENAS Address: [address] [address]
--- OUTSIDE RECORDS SUMMARY | 2024-03-16 11:48 | XMS_ITS | Continuity of Care Document ---
Author Organization [facility] Address [address] [place] [id number] Care Team Providers Care Desktop Architect Name Role Phone NOT IN DICTIONARY Primary Care Physician Unavail able [id number] Date(s[facility] 01/11/22 - 01/11/[address] [address] [place] Encounter Diagnosis Bleeding in early (Discharge Diagnosis) - 01/11/22 Discharge Disposition: 01 Home Attending Physician: LARRY FREDERICK PA-C Admitting Physician: LARRY FREDERICK PA-C Allergies, Adverse Reactions, Alerts Substance Reaction Severity Status Remicade Headache Active Problem List Diagnosis Diagnosis Type Effective Dates Health Status Cl inical Service Informant Bleeding in early Discharge Diagnosis 01/11/22 Non-Specified Procedures Procedure Date Related Diagnosis Body Site Status Collection of venous blood b y venipuncture 01/11/22 Completed Results Radiology Reports * Exam Date Time Procedure Performing Provider Status 01/11/22 12:18 PM US OB <14 Weeks Babak Bledsoe (Reported) Notes: (US OB <14 Weeks) Reason For Exam: Pain, bleeding, 9 wks preg US READ EXAM: US OB <14 Weeks TECHNIQUE: Trans-abdominal draper-scale sonographic images of the pelvis was obtained. Patient refused transvaginal imaging. COMPARISONS: None. HISTORY: Pain, bleeding, 9 wks preg FINDINGS: Within the uterus is a gestational sac. Within this gestational sac is a pole with a crown-rump length of 24 mm corresponding to a 9 week 1 day gestational age. A yolk sac is identified. On real-time exam, a heartbeat was demonstrated. The heart rate was 176 bpm. The right ovary is not visualized. The left ovary measures 2.9 x 1.7 x 1.7. cm. The echotexture is normal. There is no significant free fluid in the cul de sac. IMPRESSION: 1. Viable intrauterine gestation measuring a gestational age of 9 weeks and 1 day. 2. No acute process identified. 3. The right adnexa is not visualized. FINAL REPORT Dictated By: DI AC DO Electronically Signed By: DI AC DO Signed Date/Time: 01/11/22 13:27:40 Vital Signs Most recent to oldest [Reference Range]: 1 Temperature Oral [35.8-37.3 DegC] 37.2 D egC (01/11/22 10:30 AM) Respiratory Rate [14-20 br/min] 16 br/mi n (01/11/22 10:30 AM) Blood Pressure [90-140/60-90 mmHg] 112/7 1mmHg (01/11/22 10:30 AM) Dosing Weight 73 KG (01/11/22 10:30 AM) Social History Social History Type Response Smoking Status Never smoker Sex Female US for in first trimester * DI AC DO: PERFORM, VERIFY, VERIFY Event Display: US Read Authored Date: EXAM: US OB <14 Weeks TECHNIQUE: Trans-abdominal draper-scale sonographic images of the pelvis was obtained. Patient refused transvaginal imaging. COMPARISONS: None. HISTORY: Pain, bleeding, 9 wks preg FINDINGS: Within the uterus is a gestational sac. Within this gestational sac is a pole with a crown-rump length of 24 mm corresponding to a 9 week 1 day gestational age. A yolk sac is identified. On real-time exam, a heartbeat was demonstrated. The heart rate was 176 bpm. The right ovary is not visualized. The left ovary measures 2.9 x 1.7 x 1.7. cm. The echotexture is normal. There is no significant free fluid in the cul de sac. IMPRESSION: 1. Viable intrauterine gestation measuring a gestational age of 9 weeks and 1 day. 2. No acute process identified. 3. The right adnexa is not visualized. FINAL REPORT Dictated By: DI AC DO Electronically Signed By: DI AC DO Signed Date/Time: 01/11/22 13:27:40 Care Team Care Team Personnel Name: [id number] -NOT IN DICTIONARY, Member Role: Primary Care Physician Care Team Related Persons Name: DEEPA, ALYSA [address] [place] [address], [phone]
--- OUTSIDE RECORDS SUMMARY | 2024-03-16 11:48 | XMS_ITS | Continuity of Care Document ---
Author Organization [facility] Address [address] [place] [address]- Care Team Providers Care Program Engagement Director Name Role Phone Cassius Alvarez MD Primary Care Physician [phone] Encounter [facility] Date(s): 12/27/22 - 01/26/23 [facility] [address] [place], [place] [address] Allergies, Adverse Reactions, Alerts Substance [...] influenza virus vaccine, inactivated 04/19/09 [place] rded [id number] 12y+ bivalent booster vax 04/18/22 Recorded SARS-CoV-2 mRNA (wrekjcx-hvxc-luzjy) vax 10/09/21 Recorded SARS-CoV-2 (COVID-19) mRNA BNT-162b2 [...] 1 Refills, Maintenance, 12/22/22 8:57:00 EDT, Inhaler, [facility] #[id number], Partial fill upon patient request if the prescription is for a schedule II opio... Start Date: 12/22/22 Status: Ordered albuterol 0.083% inhalation solution 3 mL = 2.5 mg, Neb, Every 6 hours, PRN Wheezing/Shortness of Breath, J45.909, # 100 each, 1 Refills, Maintenance, 06/24/22 9:28:00 EST, Inhalation Solution, [facility]/pharmacy #[id number], Partial fill upon patient request [...] [id number],160, cm, 10/07/22 14:33:00 EDT, Height, 85.4, kg, [...] tablet, 3 Refills, Maintenance, 10/07/22 15:08:00 EDT, [facility] #[id number], Partial fill upon patient request if the [...] MD Position: [facility] Physician - Primary Care Member Role: PCP Address: Address: [address] [place] [address] Name: Rosalva Fletcher Position: [facility] Outreach Member Role: Lifetime Consulting Physician Care Team Related Persons Name: MERCED ARENAS Address: home [address] [place] [id number] Name: KALEY ARENAS Address: home [address] [place] [id number]
--- OUTSIDE RECORDS SUMMARY | 2024-03-16 11:48 | XMS_ITS | Continuity of Care Document ---
Author Organization [facility] Address [address] [place] [address]- Care Team Providers Care Electromatic Typist Name Role Phone Cassius Alvarez MD Primary Care Physician [phone] [place] [facility] [place] 08/05/22 - 09/04/22 [facility] [address] [place], [place] [address] Allergies, Adverse Reactions, Alerts [...] influenza virus vaccine, inactivated 04/19/09 [place] rded [id number] 12y+ bivalent booster vax 04/18/22 Recorded SARS-CoV-2 mRNA (rqbpdvp-utdd-hdqws) vax 10/09/21 Recorded SARS-CoV-2 (COVID-19) mRNA BNT-162b2 [...] Refills, Maintenance, 06/24/22 9:28:00 EST, Inhalation Solution, [facility]/pharmacy #[id number], Partial fill upon patient request if the [...] Replace Required Details, Route to Pharmacy Electronically, [facility] #[id number],... Start Date: 04/29/22 Status: Ordered hydrOXYzine hydrochloride [...] 08/25/17 Active Ankylosing spondylitis; Dr Brady at [facility] Confirmed 03/31/13 Active Anxiety Confirmed [...] Team Personnel Name: Cassius Alvarez MD Position: [facility] Primary Care Physician Member Role: PCP Address: Address: [address] [place] [id number]- Name: Rosalva Fletcher Position: [facility] Outreach Member Role: Lifetime Consulting Physician Care Team Related Persons Name: MERCED ARENAS Address: home [address] [place] [address] Name: KALEY ARENAS Address: [address] [address]
--- OUTSIDE RECORDS SUMMARY | 2024-03-16 11:48 | XMS_ITS | Continuity of Care Document ---
Author Organization [facility] Address [address] [place] [address]- Care Team Providers Care Blueprint Maker Name Role Phone Cassius Alvarez MD Primary Care Physician Encounter [facility] [place] Date(s): 07/07/22 - 08/06/22 [facility] [address] [place], [place] [address] Allergies, Adverse Reactions, Alerts [...] influenza virus vaccine, inactivated 04/19/09 [place] rded [id number] 12y+ bivalent booster vax 04/18/22 Recorded SARS-CoV-2 mRNA (jdiuvop-scvd-oczim) vax 10/09/21 Recorded SARS-CoV-2 (COVID-19) mRNA BNT-162b2 [...] Refills, Maintenance, 06/24/22 9:28:00 EST, Inhalation Solution, [facility]/pharmacy #[id number], Partial fill upon patient request if the [...] 1 Refills, Maintenance, 05/18/22 13:39:00 EST, Inhaler, [facility]/pharmacy #[id number], Partial fill upon [...] Replace Required Details, Route to Pharmacy Electronically, [facility] #[id number],... Start Date: 04/29/22 Status: Ordered Home Blood [...] Physician Member Role: PCP Address: Address: [address] [place] [id number] Name: Rosalva Fletcher Position: [facility] Outreach Member Role: Lifetime Consulting Physician Care Team Related Persons Name: MERCED ARENAS Address: home [address] [place] [address] Name: KALEY ARENAS Address: home [address] [place] [address]
--- OUTSIDE RECORDS SUMMARY | 2024-03-16 11:48 | XMS_ITS | Continuity of Care Document ---
Author Organization [facility] [place] [address] [address]- Care Team Providers Care Real Estate Assistant Name Role Phone Cassius Alvarez MD Primary Care Physician [phone] [place] [facility] [place](s): 08/27/22 - 10/28/[address] [address]- Attending Physician: Parul Browne MD Admitting Physician: [...] influenza virus vaccine, inactivated 04/19/09 [place] rded [id number] 12y+ bivalent booster vax 04/18/22 Recorded SARS-CoV-2 mRNA (vrvtgdx-vymh-zkyrg) vax 10/09/21 Recorded SARS-CoV-2 (COVID-19) mRNA BNT-162b2 [...] EST, Inhalation Solution, [facility]/pharmacy #[id number], Partial fill upon patient [...] tablet, 3 Refills, Maintenance, 10/07/22 15:08:00 EDT, [facility] #[id number], Partial fill upon patient request if the [...] Care Physician Member Role: PCP [facility]: [facility] [address] Name: Rosalva Fletcher Position: [facility] Outreach Member Role: Lifetime Consulting Physician Care Team Related Persons Name: MERCED ARENAS Address: [address] [address] Name: KALEY ARENAS Address: [address] [address]
--- OUTSIDE RECORDS SUMMARY | 2024-03-16 11:48 | XMS_ITS | Continuity of Care Document ---
Author Organization [facility] Address [address] [place] [address]- Care Team Providers Care Foot Roentgenologist Name Role Phone Cassius Alvarez MD Primary Care Physician [place] [facility] [place](s): 03/24/23 - 04/23/23 [facility] [address] [place], [place] [address] Allergies, Adverse Reactions, Alerts [...] influenza virus vaccine, inactivated 04/19/09 [place] rded [id number] 12y+ bivalent booster vax 04/18/22 Recorded SARS-CoV-2 mRNA (ctxdjpl-qjdh-xsmcc) vax 10/09/21 Recorded SARS-CoV-2 (COVID-19) mRNA BNT-162b2 [...] 0 Refills, Maintenance, 03/19/23 16:43:00 EDT, [facility] #[id number], Partial fill upon patient request if the prescription is for a schedule II opioid drug., 1 tablet By Mo... Start Date: 03/19/23 Status: Ordered Albuterol (Eqv-ProAir HFA) 90 mcg/inh inhalation aerosol 2 puffs, Inhalation, Every 4 hours, PRN cough, shortness of breath, wheezing, # 8.5 Gm, 1 Refills, Maintenance, 12/22/22 8:57:00 EDT, Inhaler, [facility] #[id number], Partial fill upon patient request if the [...] tablet, 0 Refills, Maintenance, 02/02/23 11:13:00 EDT, [facility] #[id number], Partial fill upon patient request if the prescription is for a schedule II opioid drug., 160, cm, 02/02/23 10... Start Date: 02/02/23 Status: Ordered famotidine 20 mg oral tablet 1, tablet, By Mouth, 2 times a day, PRN, # 180 tablet, Refills 0, Maintenance, NEEDED FOR REFLUXOR HEARTBURN, 02/27/23 22:28:00 EDT, Route to Pharmacy Electronically, [facility] #[id number],160, cm, 02/02/23 10:34:00 EDT, Height, 85.4, kg, [...] 08/25/17 Active Ankylosing spondylitis; Dr Brady at [facility] Confirmed 03/31/13 Active Anxiety Confirmed [...] Name: Cassius Alvarez MD Position: [facility] Physician - Primary Care Member Role: PCP Address: Address: [address] [place] [address] Name: Rosalva Fletcher Position: [facility] Outreach Member Role: Lifetime Consulting Physician Care Team Related Persons Name: MERCED ARENAS Address: [address] [place] [address] Name: KALEY ARENAS Address: home [address] [place] [address] Name: DIMA VILLASENOR Address: home [address] [place] [address]
== END 2024-03-16 11:43 | disposition home or self-care (01) ==
LOC: HO.HOP 11:41
PROVIDERS: PCP Internal Medicine; Visit Provider Clinical Nurse Specialist Psychiatric/Mental Health
DX: F42.2 Mixed obsessional thoughts and acts (principal); F43.10 Post-traumatic stress disorder, unspecified; F33.2 Major depressive disorder, recurrent severe without psychotic features
CPT/HCPCS: 99214

== ENCOUNTER → 2024-03-16 11:41 | Outpatient (BNVA) | payer OTHER, SELFPAY | PROVIDERS: PCP Internal Medicine; Visit Provider Clinical Nurse Specialist Psychiatric/Mental Health | DX: F33.2 Major depressive disorder, recurrent severe without psychotic features (principal); F42.2 Mixed obsessional thoughts and acts; F43.10 Post-traumatic stress disorder, unspecified; F42.9 Obsessive-compulsive disorder, unspecified | CPT/HCPCS: 99212 ==

== ENCOUNTER 2024-05-15 09:13 | Outpatient (AMB) | payer OTHER, SELFPAY ==
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
== END 2024-05-15 09:46 | disposition home or self-care (01) ==
LOC: HO.HOP 09:13
PROVIDERS: PCP Internal Medicine; Visit Provider Clinical Nurse Specialist Psychiatric/Mental Health
DX: F42.2 Mixed obsessional thoughts and acts (principal); F43.10 Post-traumatic stress disorder, unspecified; F33.2 Major depressive disorder, recurrent severe without psychotic features; R41.840 Attention and concentration deficit
CPT/HCPCS: 99214

== ENCOUNTER → 2024-05-15 09:13 | Outpatient (BNVA) | payer OTHER, SELFPAY | PROVIDERS: PCP Internal Medicine; Visit Provider Clinical Nurse Specialist Psychiatric/Mental Health | DX: F42.2 Mixed obsessional thoughts and acts (principal); F33.2 Major depressive disorder, recurrent severe without psychotic features; F42.9 Obsessive-compulsive disorder, unspecified; F43.10 Post-traumatic stress disorder, unspecified; R41.840 Attention and concentration deficit; Z71.89 Other specified counseling | CPT/HCPCS: 99212 ==

== ENCOUNTER 2024-06-04 23:15 | Emergency (ER) | payer OTHER, SELFPAY ==
--- NOTE | ~2024-06-04 | CT_ITS ---
EXAMINATION: CT ABDOMEN AND PELVIS WITHOUT CONTRAST CLINICAL INFORMATION: Right flank pain COMPARISON: CT abdomen and pelvis 10/31/2021. TECHNIQUE: Multidetector volumetric imaging was performed from the superior aspect of the liver through the pubic symphysis. Sagittal and coronal reformatted images were obtained on the technologist's workstation. This CT examination was performed using dose optimization techniques as appropriate, variously including the following: *Automated exposure control *Adjustment of mA and/or kV according to patient size (this includes techniques or standardized protocols for targeted exams where dose is matched to indication/reason for exam; i.e. extremities or head) *Use of iterative reconstruction technique DLP: 750 mGy-cm FINDINGS: LUNG BASES: The visualized lung bases are unremarkable. LIVER, GALLBLADDER, AND BILIARY TREE: The liver is normal in size, shape, and attenuation. No focal hepatic lesion or biliary ductal dilatation is present. Status post cholecystectomy. PANCREAS: Unremarkable. SPLEEN: Unremarkable. ADRENAL GLANDS: Unremarkable. KIDNEYS AND URETERS: The 2 mm diameter rounded calculus is present at the right ureterovesicular junction. Moderate-marked right ureterectasis and moderate right hydronephrosis are noted along with mild right perinephric inflammatory changes. No additional urolithiasis identified. BLADDER: Decompressed GASTROINTESTINAL TRACT: Normal appearance of the appendix (series 4 image 517). No free intraperitoneal fluid or gas collections. A retrocolic Bin-en-Y gastric bypass is noted. ABDOMINAL WALL: No significant hernia is appreciated. LYMPH NODES: Normal. VASCULAR: Unremarkable. PELVIC VISCERA: A 3.5 cm rounded unilocular appearing low density (5 Hounsfield units) focus is associated with the left adnexal region. Findings are overwhelmingly likely to represent a benign functional cyst. No followup imaging recommended. Uterus is normal in appearance. No right adnexal lesions. OSSEOUS STRUCTURES: Benign-appearing densities throughout a 5 mm focus incidentally noted within the right iliac body. No suspicious skeletal abnormalities identified. CT/CT abdomen pelvis wo IV con IMPRESSION: 1. Single 2 mm obstructing calculus at the right ureterovesicular junction associated with moderate-marked right ureterectasis and moderate right hydronephrosis. No perinephric fluid collections. No additional urolithiasis. 2. Status post Bin-en-Y gastric bypass. 3. Status post cholecystectomy. Electronically signed by: Natanael Esteves MD 06/05/2024 01:38 AM EST RP
[2024-06-04 23:32] VITALS: BP 122/88; PULSE 84; RESP 18; TEMP 36.7; O2SAT 98; BMI 39.0
[2024-06-05 00:15] LABS: MANUAL DIFF FLAG NO
[2024-06-05 00:16] LABS: Basophils Absolute Auto 0.1 X10*3/uL (0.0-0.2); Basophils Percent Auto 0.5 % (0-2); Eosinophils Absolute Auto 0.3 X10*3/uL (0.0-0.4); Eosinophils Percent Auto 2.7 % (0-4); Hematocrit 39.5 % (37.0-47.0); Hemoglobin 13.8 g/dl (12.0-16.0); Imm Gran Abs Auto 0.03 X10*3/uL (0.00-0.03); Imm Gran Pct Auto 0.3 % (0.0-0.4); Lymphocytes Absolute Auto 4.2 X10*3/uL (1.2-4.9); Lymphocytes Percent Auto 41.3 % (20-40); Mean Corpuscular HGB Conc 34.9 g/dl (31.0-35.0); Mean Corpuscular Hemoglobin 31.7 pg (27.0-33.0); Mean Corpuscular Volume 90.6 fL (80.0-98.0); Mean Platelet Volume 9.6 fL (9.4-12.3); Monocytes Absolute Auto 0.5 X10*3/uL (0.1-1.2); Monocytes Percent Auto 4.9 % (2-11); Neutrophils Absolute Auto 5.1 x10*3/uL (2.0-8.3); Neutrophils Percent Auto 50.3 % (45-73); Platelet Count 284 X10*3/uL (160-400); Red Blood Count 4.36 X10*6/uL (4.20-5.50); Red Cell Distribution Width 17.8 % (11.0-16.0); White Blood Count 10.1 X10*3/uL (4.8-10.8)
--- NOTE | 2024-06-05 00:18 | ED.ABDPAIN ---
HPI - Abdominal Pain General Chief Complaint: Abdominal Pain Stated Complaint: kidney stone?, back and abd pain Time Seen by Provider: 06/05/24 00:17 Source: patient Mode of arrival: ambulatory Limitations: no limitations History of Present Illness ED Provider: awilda VAIL narrative: Patient's history of kidney stone in the past comes here for sudden onset of right flank and right lower abdominal pain started at 18:00 associated with nausea and vomiting no dysuria no frequency no hematuria no fever or chills Related Data Home Medications ?Medication ?Instructions ?Recorded ?Confirmed acetaminophen 500 mg tablet mg PO 09/24/23 03/16/24 albuterol sulfate 90 mcg/actuation inhalation 09/24/23 03/16/24 aerosol inhaler esomeprazole magnesium 40 mg 40 mg PO DAILY 09/24/23 03/16/24 capsule,delayed release ixekizumab 80 mg/mL subcutaneous mg subcut 09/24/23 03/16/24 auto-injector (Taltz Autoinjector) metoprolol succinate 25 mg 25 mg PO DAILY 09/24/23 03/16/24 tablet,extended release 24 hr norethindrone (contraceptive) 0.35 mg PO 09/24/23 03/16/24 mg tablet ondansetron 4 mg disintegrating 4 mg PO Q8H PRN 09/24/23 03/16/24 tablet Previous Rx's ?Medication ?Instructions ?Recorded aripiprazole 5 mg tablet 5 mg PO BEDTIME #90 tabs 03/16/24 escitalopram oxalate 20 mg tablet 30 mg (1.5 x 20 mg) PO DAILY 90 03/16/24 days #135 tabs mirtazapine 7.5 mg tablet 7.5 mg PO BEDTIME #90 tabs 03/16/24 bupropion HCl 150 mg 24 hr tablet, 150 mg PO QAM #30 tabs 05/15/24 extended release (Wellbutrin XL) hydroxyzine HCl 10 mg tablet 20 mg (2 x 10 mg) PO BEDTIME #60 05/15/24 tabs oxycodone 5 mg tablet 5 mg PO Q6H PRN pain #20 tabs 06/05/24 tamsulosin 0.4 mg capsule (Flomax) 0.4 mg PO BEDTIME #7 caps 06/05/24 Allergies Allergy/AdvReac Type Severity Reaction Status Date / Time infliximab [From Remicade] AdvReac Headache Verified 06/04/24 23:32 Review of Systems Review of Systems Yes all other systems are reviewed and are negative [facility] Past Medical History Medical History Ankylosing spondylitis Depression Anxiety Asthma Surgical History H/O gastric sleeve Family History Family History Other Ankylosing spondylitis Social History Social History Alcohol intake: current Alcohol intake frequency: holidays/special occasions only Patient Tobacco Use Status: Never used Tobacco Smoked in Last 30 Days: No Use of substances other than those prescribed or required for medical reasons: No Advance Directives: No Advance Directives Information Provided: Yes Patient : No Physical Exam ED Vital Signs: Vital Signs - 24 hr 06/04/24 23:32 06/05/24 00:29 06/05/24 01:37 Temperature 98.0 F Pulse Rate 84 Respiratory Rate 18 18 16 Blood Pressure 122/88 Pulse Oximetry 98 Oxygen Delivery Method Room Air BMI result Body Mass Index 39.0 Appearance: Alert. Oriented X3. No acute distress. Eyes: No pallor or icterus ENT: Pharynx normal. Oral Mucosa moist Neck: Normal inspection. Neck supple. CVS: Normal heart rate and rhythm. Pulses normal. Respiratory: No respiratory distress. Equal air entry bilateral, no wheezing/rales/rhonchi Abdomen: Soft and nontender. Bowel sounds are present, no mass palpable,R CVA tenderness Skin: Skin warm and dry. Normal skin color. Normal skin turgor. Extremities: No lower extremity edema. No calf tenderness Neuro: Oriented X 3. No motor deficit. Medical Decision Making Medical Decision Making [facility] Narrative: Patient's right ureteric colic CT scan showed 2 mm UVJ stone with hydronephrosis patient is feeling much better after pain medication IV hydration will discharge patient home advised to follow with urologist Lab Data [facility] Lab Attestation statement: I reviewed the patient's lab results. 06/05/24 00:09 06/05/24 00:09 Labs: Lab Results 06/05/24 06/05/24 Range/Units 00:09 00:50 WBC 10.1 (4.8-10.8) X10*3/uL RBC 4.36 (4.20-5.50) X10*6/uL Hgb 13.8 (12.0-16.0) g/dl Hct 39.5 (37.0-47.0) % MCV 90.6 (80.0-98.0) fL MCH 31.7 (27.0-33.0) pg MCHC 34.9 (31.0-35.0) g/dl RDW 17.8 H (11.0-16.0) % Plt Count 284 (160-400) X10*3/uL MPV 9.6 (9.4-12.3) fL Immature Gran % (Auto) 0.3 (0.0-0.4) % Neut % (Auto) 50.3 (45-73) % Lymph % (Auto) 41.3 H (20-40) % [place] % (Auto) 4.9 (2-11) % Eos % (Auto) 2.7 (0-4) % Baso % (Auto) 0.5 (0-2) % Lymph # (Auto) 4.2 (1.2-4.9) X10*3/uL [place] # (Auto) 0.5 (0.1-1.2) X10*3/uL Eos # (Auto) 0.3 (0.0-0.4) X10*3/uL Baso # (Auto) 0.1 (0.0-0.2) X10*3/uL Abs Immat Gran (auto) 0.03 (0.00-0.03) X10*3/uL Absolute Neuts (auto) 5.1 (2.0-8.3) x10*3/uL Absolute Nucleated RBC 0.000 (0.0-0.012) X10*3/uL Nucleated RBC % (auto) 0.0 (0.0-0.2) /100WBC ESR 67 H (0-20) MM/HR Sodium 139 (135-145) mmol/L Potassium 3.5 (3.3-5.1) mmol/L Chloride 108 (96-108) mmol/L Carbon Dioxide 18 L (22-29) mmol/L Anion Gap 17 (12-20) BUN 8 L (9-16) mg/dL Creatinine 0.75 (0.5-1.4) mg/dL Estim Creat Clear Calc 122.4 Estimated GFR > 60 Random Glucose 93 (60-115) mg/dL Calcium 9.2 (8.4-10.2) mg/dL Total Bilirubin 0.3 (0.0-1.0) mg/dL AST 19 (5-31) U/L ALT 16 (0-31) U/L Alkaline Phosphatase 107 (39-117) U/L Total Protein 7.3 (6.5-8.0) g/dL Albumin 4.0 (3.5-5.0) g/dL Lipase 12 (8-78) U/L Beta HCG, Quant < 2 mIU/mL Urine Color Dark Yellow Urine Appearance Cloudy Urine pH 5.5 (5.0-9.0) Ur Specific [place] >= 1.030 H (1.005-1.025) Urine Protein Trace (Neg-Trace) mg/dL Urine Glucose (UA) Negative (Negative) mg/dL Urine Ketones Negative (Negative) mg/dL Urine Blood Large (3+) H (Negative) Urine Nitrite Negative (Negative) Ur Leukocyte Esterase Trace H (Negative) Urine RBC >20 H (0-2) /HPF Urine WBC 6-10 H (0-5) /HPF Ur Squamous Epith Cells >20 (0-2) /HPF Urine Bacteria 4+ (None Seen) Hyaline Casts 0-2 (0-2) /LPF Radiology Impression Discussion of test interpretation with radiology: I have reviewed the radiologist's reading. Radiologist Impression: CT/CT abdomen pelvis wo IV con IMPRESSION: 1. Single 2 mm obstructing calculus at the right ureterovesicular junction associated with moderate-marked right ureterectasis and moderate right hydronephrosis. No perinephric fluid collections. No additional urolithiasis. 2. Status post Bin-en-Y gastric bypass. 3. Status post cholecystectomy. Medications Administered Discontinued Medications Generic Name Dose Route Start Last Admin Trade Name Freq PRN Reason Stop Dose Admin Hydromorphone HCl 1 mg 06/05/24 01:29 06/05/24 01:37 Hydromorphone Hcl 1 Mg/Ml Syringe IVPUSH 06/05/24 01:30 1 mg ONCE ONE Administration Protocol Sodium Chloride 1,000 mls @ 999 mls/hr 06/05/24 00:19 06/05/24 01:37 Ns IV 06/05/24 01:19 Infused .Q1H1M ONE Infusion Ketorolac Tromethamine 30 mg 06/05/24 00:19 06/05/24 00:28 Ketorolac Tromethamine 30 Mg/Ml Vial IVPUSH 06/05/24 00:20 30 mg ONCE ONE Administration Morphine Sulfate 4 mg 06/05/24 00:19 06/05/24 00:29 Morphine Sulfate 4 Mg/Ml Cartridge IVPUSH 06/05/24 00:20 4 mg ONCE ONE Administration Protocol Ondansetron HCl 4 mg 06/05/24 00:19 06/05/24 00:28 Ondansetron Hcl 4 Mg/2 Ml Vial IVPUSH 06/05/24 00:20 4 mg ONCE ONE Administration Tamsulosin HCl 0.4 mg 06/05/24 01:39 06/05/24 01:42 Tamsulosin Hcl 0.4 Mg Capsule PO 06/05/24 01:40 0.4 mg ONCE ONE Administration Discharge Plan Discharge Clinical Impression: Calculus of distal right ureter Patient Disposition: Home, Self-Care Instructions: Low Oxalate Diet (ED), Ureteral Stones (ED) Additional Instructions: you have 2 mm stone in the right ureter at the junction of the bladder Drink plenty of fluid Pain medication as prescribed Flomax daily till you pass the stone Follow with urologist if pain continues Prescriptions: New oxycodone 5 mg tablet 5 mg PO Q6H PRN (Reason: pain) Qty: 20 0RF Rx Instructions: Partial Fill upon patient request. tamsulosin [Flomax] 0.4 mg capsule 0.4 mg PO BEDTIME Qty: 7 0RF No Action ondansetron 4 mg tablet,disintegrating 4 mg PO Q8H PRN esomeprazole magnesium 40 mg capsule,delayed release(DR/EC) 40 mg PO DAILY Taltz Autoinjector 80 mg/mL auto-injector subcut acetaminophen 500 mg tablet PO metoprolol succinate 25 mg tablet extended release 24 hr 25 mg PO DAILY norethindrone (contraceptive) 0.35 mg tablet PO albuterol sulfate 90 mcg/actuation HFA aerosol inhaler inhalation bupropion HCl [Wellbutrin XL] 150 mg tablet extended release 24 hr 150 mg PO QAM Qty: 30 2RF hydroxyzine HCl 10 mg tablet 20 mg PO BEDTIME Qty: 60 2RF aripiprazole 5 mg tablet 5 mg PO BEDTIME Qty: 90 1RF escitalopram oxalate 20 mg tablet 30 mg PO DAILY 90 Days Qty: 135 1RF mirtazapine 7.5 mg tablet 7.5 mg PO BEDTIME Qty: 90 1RF Referrals: Feliciano Carney MD [Physician] - 2 days Print Language: [place]
[2024-06-05] MEDS: Ketorolac Tromethamine 30 MG/ML VIAL IVPUSH (00:28)
[2024-06-05] MEDS: ondansetron HCL 4 MG/2 ML VIAL IVPUSH (00:28)
[2024-06-05 00:29] VITALS: RESP 18
[2024-06-05] MEDS: Morphine Sulfate 4 MG/ML CARTRIDGE IVPUSH (00:29)
[2024-06-05] MEDS: 0.9 % Sodium Chloride 1,000 ML 999 ML IV (00:29)
--- NOTE | 2024-06-05 00:33 | PC.NURSE ---
Patient is alert and oriented x4, VSS. Patient complaints of pain in RLQ radiating to R flank 10/10 at present with nausea and vomiting-onset of pain around 18:30. 20 IV line established in L forearm, labs drawn and sent to lab, patient medicated per MAR, call may in patient's reach, plan of care ongoing.
[2024-06-05 00:36] LABS: Alanine Aminotransferase 16 U/L (0-31); Alkaline Phosphatase 107 U/L (39-117); Anion Gap 17 (12-20); Aspartate Amino Transferase 19 U/L (5-31); Bilirubin Total 0.3 mg/dL (0.0-1.0); Blood Urea Nitrogen 8 mg/dL (9-16); Calcium 9.2 mg/dL (8.4-10.2); Carbon Dioxide 18 mmol/L (22-29); Chloride 108 mmol/L (96-108); Creatinine Clr Calc Pharmacy 122.4; Estimated Glomerular Filt Rate > 60; Glucose Random 93 mg/dL (60-115); HCG Quantitative < 2 mIU/mL; Lipase 12 U/L (8-78); Potassium 3.5 mmol/L (3.3-5.1); Sodium 139 mmol/L (135-145); Total Protein 7.3 g/dL (6.5-8.0)
[2024-06-05 00:52] LABS: Erythrocyte Sedimentation Rate 67 MM/HR (0-20)
[2024-06-05 00:59] LABS: Appearance Urine Cloudy; Color Urine Dark Yellow; Glucose Urine UA Negative (Negative); Leukocyte Esterase Urine Trace (Negative); Nitrite Urine Negative (Negative); PH 5.5 (5.0-9.0); Specific Gravity - Urine >= 1.030 (1.005-1.025); UMIC TRIGGER UACC YES; Urine Blood Large (3+) (Negative); Urine Ketones Negative (Negative); Urine Protein Trace mg/dL (Neg-Trace)
[2024-06-05 01:02] LABS: Bacteria Urine 4+ (None Seen); Hyaline Casts Urine 0-2 /LPF (0-2); RBC Urine >20 /HPF (0-2); Squamous Epithelial Cell Urine >20 /HPF (0-2); UACC Culture Trigger YES
[2024-06-05 01:37] VITALS: RESP 16
[2024-06-05] MEDS: HYDROmorphone HCl 1 MG/ML SYRINGE IVPUSH (01:37)
[2024-06-05] MEDS: Tamsulosin HCL 0.4 MG CAPSULE PO (01:42)
[2024-06-05] MEDS: oxyCODONE HCl Immed Release 5 MG TABLET 10 MG PO (02:29)
[2024-06-05 02:38] VITALS: BP 120/76; PULSE 80; RESP 16; TEMP 36.7; O2SAT 98
== END 2024-06-05 02:38 | disposition home or self-care (01) ==
PROVIDERS: Emergency Provider Internal Medicine; PCP Internal Medicine
DX: N20.1 Calculus of ureter (principal); R10.31 Right lower quadrant pain; R11.2 Nausea with vomiting, unspecified; R10.2 Pelvic and perineal pain; Z79.899 Other long term (current) drug therapy
CPT/HCPCS: 36415; 74176; 80053; 81001; 83690; 84702; 85025; 85652; 87086; 96361; 96374; 96375; 99284; 99285; J1171; J1885; J2270; J2405

== ENCOUNTER 2024-06-06 14:55 | Emergency (ER) | payer OTHER, SELFPAY ==
[2024-06-06 15:04] VITALS: BP 120/73; PULSE 84; RESP 18; TEMP 36.6; O2SAT 98; BMI 34.0
--- NOTE | 2024-06-06 15:05 | ED_ITS ---
HPI - General Adult General Chief complaint: Abdominal Pain Stated complaint: Kidney stones, SOB Related Data Home Medications ?Medication ?Instructions ?Recorded ?Confirmed acetaminophen 500 mg tablet mg PO 09/24/23 03/16/24 albuterol sulfate 90 mcg/actuation inhalation 09/24/23 03/16/24 aerosol inhaler esomeprazole magnesium 40 mg 40 mg PO DAILY 09/24/23 03/16/24 capsule,delayed release ixekizumab 80 mg/mL subcutaneous mg subcut 09/24/23 03/16/24 auto-injector (Taltz Autoinjector) metoprolol succinate 25 mg 25 mg PO DAILY 09/24/23 03/16/24 tablet,extended release 24 hr norethindrone (contraceptive) 0.35 mg PO 09/24/23 03/16/24 mg tablet ondansetron 4 mg disintegrating 4 mg PO Q8H PRN 09/24/23 03/16/24 tablet Previous Rx's ?Medication ?Instructions ?Recorded aripiprazole 5 mg tablet 5 mg PO BEDTIME #90 tabs 03/16/24 escitalopram oxalate 20 mg tablet 30 mg (1.5 x 20 mg) PO DAILY 90 03/16/24 days #135 tabs mirtazapine 7.5 mg tablet 7.5 mg PO BEDTIME #90 tabs 03/16/24 bupropion HCl 150 mg 24 hr tablet, 150 mg PO QAM #30 tabs 05/15/24 extended release (Wellbutrin XL) hydroxyzine HCl 10 mg tablet 20 mg (2 x 10 mg) PO BEDTIME #60 05/15/24 tabs oxycodone 5 mg tablet 5 mg PO Q6H PRN pain #20 tabs 06/05/24 tamsulosin 0.4 mg capsule (Flomax) 0.4 mg PO BEDTIME #7 caps 06/05/24 Allergies Allergy/AdvReac Type Severity Reaction Status Date / Time infliximab [From Remicade] AdvReac Headache Verified 06/06/24 15:07 [facility] Past Medical History Medical History Ankylosing spondylitis Depression Anxiety Asthma Surgical History H/O gastric sleeve Family History Family History Other Ankylosing spondylitis Social History Social History Alcohol intake: current Alcohol intake frequency: holidays/special occasions only Patient Tobacco Use Status: Never used Tobacco Advance Directives: No Advance Directives Information Provided: No Physical Exam ED Vital Signs: BMI result Body Mass Index 34.0 Course Course Course Narrative: This is a rapid medical exam performed by Lovely Jay NP: Additional HPI, ROS, PE not included below will be deferred to primary provider. Patient is a 33-year-old female with history of PTSD, OCD, MDD, POTS, migraines presenting with complaint of decreased urinary output, severe right sided pain. Seen here yesterday and diagnosed with 2mm calculi at [facility]. Plan: Labs, UA Medical Decision Making Lab Data 06/06/24 15:16 06/06/24 15:16 Labs: Lab Results 06/06/24 06/06/24 Range/Units 15:16 15:20 WBC 8.2 (4.8-10.8) X10*3/uL RBC 4.15 L (4.20-5.50) X10*6/uL Hgb 13.0 (12.0-16.0) g/dl Hct 38.6 (37.0-47.0) % MCV 93.0 (80.0-98.0) fL MCH 31.3 (27.0-33.0) pg MCHC 33.7 (31.0-35.0) g/dl RDW 17.8 H (11.0-16.0) % Plt Count 268 (160-400) X10*3/uL MPV 9.4 (9.4-12.3) fL Immature Gran % (Auto) 0.2 (0.0-0.4) % Neut % (Auto) 46.3 (45-73) % Lymph % (Auto) 45.4 H (20-40) % Wheeler % (Auto) 4.7 (2-11) % Eos % (Auto) 2.8 (0-4) % Baso % (Auto) 0.6 (0-2) % Lymph # (Auto) 3.7 (1.2-4.9) X10*3/uL Wheeler # (Auto) 0.4 (0.1-1.2) X10*3/uL Eos # (Auto) 0.2 (0.0-0.4) X10*3/uL Baso # (Auto) 0.1 (0.0-0.2) X10*3/uL Abs Immat Gran (auto) 0.02 (0.00-0.03) X10*3/uL Absolute Neuts (auto) 3.8 (2.0-8.3) x10*3/uL Absolute Nucleated RBC 0.000 (0.0-0.012) X10*3/uL Nucleated RBC % (auto) 0.0 (0.0-0.2) /100WBC Sodium 139 (135-145) mmol/L Potassium 3.5 (3.3-5.1) mmol/L Chloride 108 (96-108) mmol/L Carbon Dioxide 26 (22-29) mmol/L Anion Gap 9 L (12-20) BUN 6 L (9-16) mg/dL Creatinine 0.73 (0.5-1.4) mg/dL Estim Creat Clear Calc 130.1 Estimated GFR > 60 Random Glucose 84 (60-115) mg/dL Calcium 8.8 (8.4-10.2) mg/dL Total Bilirubin 0.3 (0.0-1.0) mg/dL AST 18 (5-31) U/L ALT 18 (0-31) U/L Alkaline Phosphatase 117 (39-117) U/L Total Protein 7.3 (6.5-8.0) g/dL Albumin 3.7 (3.5-5.0) g/dL Urine Color Yellow Urine Appearance Clear Urine pH 6.0 (5.0-9.0) Ur Specific [place] 1.020 (1.005-1.025) Urine Protein Negative (Neg-Trace) mg/dL Urine Glucose (UA) Negative (Negative) mg/dL Urine Ketones Trace (Negative) mg/dL Urine Blood Negative (Negative) Urine Nitrite Negative (Negative) Ur Leukocyte Esterase Trace H (Negative) Urine RBC 0-2 (0-2) /HPF Urine WBC 0-5 (0-5) /HPF Ur Squamous Epith Cells 6-10 (0-2) /HPF Urine Bacteria Trace (None Seen) Hyaline Casts 0-2 (0-2) /LPF Discharge Plan Discharge Clinical Impression: Abdominal pain Patient Disposition: Left W/O Completing Treatment Prescriptions: No Action oxycodone 5 mg tablet 5 mg PO Q6H PRN (Reason: pain) Qty: 20 0RF Rx Instructions: Partial Fill upon patient request. tamsulosin [Flomax] 0.4 mg capsule 0.4 mg PO BEDTIME Qty: 7 0RF ondansetron 4 mg tablet,disintegrating 4 mg PO Q8H PRN esomeprazole magnesium 40 mg capsule,delayed release(DR/EC) 40 mg PO DAILY Taltz Autoinjector 80 mg/mL auto-injector subcut acetaminophen 500 mg tablet PO metoprolol succinate 25 mg tablet extended release 24 hr 25 mg PO DAILY norethindrone (contraceptive) 0.35 mg tablet PO albuterol sulfate 90 mcg/actuation HFA aerosol inhaler inhalation bupropion HCl [Wellbutrin XL] 150 mg tablet extended release 24 hr 150 mg PO QAM Qty: 30 2RF hydroxyzine HCl 10 mg tablet 20 mg PO BEDTIME Qty: 60 2RF aripiprazole 5 mg tablet 5 mg PO BEDTIME Qty: 90 1RF escitalopram oxalate 20 mg tablet 30 mg PO DAILY 90 Days Qty: 135 1RF mirtazapine 7.5 mg tablet 7.5 mg PO BEDTIME Qty: 90 1RF Discharge Date/Time: 06/06/24 19:32
[2024-06-06 15:24] LABS: MANUAL DIFF FLAG NO
[2024-06-06 15:27] LABS: Appearance Urine Clear; Color Urine Yellow; Glucose Urine UA Negative (Negative); Leukocyte Esterase Urine Trace (Negative); Nitrite Urine Negative (Negative); UMIC TRIGGER UACC YES; Urine Blood Negative (Negative); Urine Ketones Trace mg/dL (Negative); Urine Protein Negative (Neg-Trace)
[2024-06-06 15:30] LABS: Bacteria Urine Trace (None Seen); Hyaline Casts Urine 0-2 /LPF (0-2); RBC Urine 0-2 /HPF (0-2); WBC Urine 0-5 /HPF (0-5)
[2024-06-06 15:35] LABS: Basophils Absolute Auto 0.1 X10*3/uL (0.0-0.2); Basophils Percent Auto 0.6 % (0-2); Eosinophils Absolute Auto 0.2 X10*3/uL (0.0-0.4); Eosinophils Percent Auto 2.8 % (0-4); Hematocrit 38.6 % (37.0-47.0); Imm Gran Abs Auto 0.02 X10*3/uL (0.00-0.03); Imm Gran Pct Auto 0.2 % (0.0-0.4); Lymphocytes Absolute Auto 3.7 X10*3/uL (1.2-4.9); Lymphocytes Percent Auto 45.4 % (20-40); Mean Corpuscular HGB Conc 33.7 g/dl (31.0-35.0); Mean Corpuscular Hemoglobin 31.3 pg (27.0-33.0); Mean Platelet Volume 9.4 fL (9.4-12.3); Monocytes Absolute Auto 0.4 X10*3/uL (0.1-1.2); Monocytes Percent Auto 4.7 % (2-11); Neutrophils Absolute Auto 3.8 x10*3/uL (2.0-8.3); Neutrophils Percent Auto 46.3 % (45-73); Platelet Count 268 X10*3/uL (160-400); Red Blood Count 4.15 X10*6/uL (4.20-5.50); Red Cell Distribution Width 17.8 % (11.0-16.0); White Blood Count 8.2 X10*3/uL (4.8-10.8)
[2024-06-06 15:41] LABS: Alanine Aminotransferase 18 U/L (0-31); Albumin Level 3.7 g/dL (3.5-5.0); Alkaline Phosphatase 117 U/L (39-117); Anion Gap 9 (12-20); Aspartate Amino Transferase 18 U/L (5-31); Bilirubin Total 0.3 mg/dL (0.0-1.0); Blood Urea Nitrogen 6 mg/dL (9-16); Calcium 8.8 mg/dL (8.4-10.2); Carbon Dioxide 26 mmol/L (22-29); Chloride 108 mmol/L (96-108); Creatinine Clr Calc Pharmacy 130.1; Estimated Glomerular Filt Rate > 60; Glucose Random 84 mg/dL (60-115); Potassium 3.5 mmol/L (3.3-5.1); Sodium 139 mmol/L (135-145); Total Protein 7.3 g/dL (6.5-8.0)
[2024-06-06 18:26] VITALS: BP 129/78; PULSE 101; RESP 20; TEMP 36.8; O2SAT 97
== END 2024-06-06 19:32 | disposition left against medical advice (07) ==
PROVIDERS: Registered Nurse Emergency; Emergency Provider Internal Medicine; PCP Internal Medicine
DX: R10.2 Pelvic and perineal pain (principal); R06.02 Shortness of breath; Z79.899 Other long term (current) drug therapy
CPT/HCPCS: 36415; 80053; 81001; 85025; 99282; 99283

== ENCOUNTER 2024-06-08 15:27 | Emergency (ER) | payer OTHER, SELFPAY ==
--- NOTE | ~2024-06-08 | US_ITS ---
EXAMINATION: US RETROPERITONEAL LIMITED, RIGHT (RENAL ONLY) CLINICAL INFORMATION: Ongoing right ureteral colic pain. COMPARISON: CT abdomen and pelvis June 05, 2024 TECHNIQUE: Real-time imaging of the right kidney. FINDINGS: RIGHT KIDNEY: 9.5 x 3.7 x 5.1 cm (SAG x AP x TRV). The kidney is normal in size, contour, and echogenicity. Renal cortical thickness is normal. No calculi or focal parenchymal lesions. No hydronephrosis. US/US renal RT IMPRESSION: No hydronephrosis or nephrolithiasis. Electronically signed by: Bairon Benz MD 06/08/2024 05:51 PM EST
--- NOTE | 2024-06-08 15:29 | ED.GENADULT ---
HPI - General Adult General Chief complaint: Abdominal Pain Stated complaint: abd pain h/o kidney stones Time Seen by Provider: 06/08/24 16:00 History of Present Illness ED Provider: Alfie VAIL narrative: The patient is a 33-year-old female with a history of ankylosing spondylitis who presented to the emergency room 3 days ago with a right-sided flank pain and was found to have a 2 mm right distal ureteral stone. She was treated and released. She was given a prescription for oxycodone tablets and tamsulosin tablets. She returned the following day with ongoing pain but the wait in the waiting room was very long and she was never seen. She returns today saying that she is having ongoing similar pain in the right flank and in the right lower abdomen. She denies fever. She admits to nausea and vomiting. Related Data Home Medications ?Medication ?Instructions ?Recorded ?Confirmed acetaminophen 500 mg tablet mg PO 09/24/23 03/16/24 albuterol sulfate 90 mcg/actuation inhalation 09/24/23 03/16/24 aerosol inhaler esomeprazole magnesium 40 mg 40 mg PO DAILY 09/24/23 03/16/24 capsule,delayed release ixekizumab 80 mg/mL subcutaneous mg subcut 09/24/23 03/16/24 auto-injector (Taltz Autoinjector) metoprolol succinate 25 mg 25 mg PO DAILY 09/24/23 03/16/24 tablet,extended release 24 hr norethindrone (contraceptive) 0.35 mg PO 09/24/23 03/16/24 mg tablet ondansetron 4 mg disintegrating 4 mg PO Q8H PRN 09/24/23 03/16/24 tablet Previous Rx's ?Medication ?Instructions ?Recorded aripiprazole 5 mg tablet 5 mg PO BEDTIME #90 tabs 03/16/24 escitalopram oxalate 20 mg tablet 30 mg (1.5 x 20 mg) PO DAILY 90 03/16/24 days #135 tabs mirtazapine 7.5 mg tablet 7.5 mg PO BEDTIME #90 tabs 03/16/24 bupropion HCl 150 mg 24 hr tablet, 150 mg PO QAM #30 tabs 05/15/24 extended release (Wellbutrin XL) hydroxyzine HCl 10 mg tablet 20 mg (2 x 10 mg) PO BEDTIME #60 05/15/24 tabs oxycodone 5 mg tablet 5 mg PO Q6H PRN pain #20 tabs 06/05/24 tamsulosin 0.4 mg capsule (Flomax) 0.4 mg PO BEDTIME #7 caps 06/05/24 ibuprofen 600 mg tablet 600 mg PO Q6H PRN pain #14 tabs 06/08/24 morphine 15 mg immediate release 15 mg PO Q6H PRN pain #10 tabs 06/08/24 tablet ondansetron 4 mg disintegrating 4 mg PO Q6H PRN nausea and 06/08/24 tablet vomiting #10 tabs Allergies Allergy/AdvReac Type Severity Reaction Status Date / Time infliximab [From Remicade] AdvReac Headache Verified 06/08/24 15:31 Review of Systems Review of Systems: Yes all other systems are reviewed and are negative [facility] Past Medical History Medical History Ankylosing spondylitis Depression Anxiety Asthma Surgical History H/O gastric sleeve Family History Family History Other Ankylosing spondylitis Social History Social History Alcohol intake: current Alcohol intake frequency: holidays/special occasions only Patient Tobacco Use Status: Never used Tobacco Smoked in Last 30 Days: No Use of substances other than those prescribed or required for medical reasons: No Advance Directives: No Advance Directives Information Provided: Yes Physical Exam ED Vital Signs: Vital Signs - 24 hr 06/08/24 15:30 06/08/24 19:40 06/08/24 19:42 Temperature 97.7 F 97.9 F 97.9 F Pulse Rate 87 88 88 Respiratory Rate 18 14 14 Blood Pressure 122/76 93/62 93/62 Pulse Oximetry 99 97 97 Oxygen Delivery Method Room Air Room Air Room Air BMI result Body Mass Index 37.3 Const Other: The patient is a 33-year-old who looks as if she does not feel very well. She did not appear acutely toxic. She was awake and alert with a normal mental status. No signs of respiratory difficulty. [facility] Head: Yes normal to inspection Face and sinus: Yes normal facial exam Mouth: Normal oral and palatal mucosa present and moist mucous membranes Eyes General: appearance normal, both eyes and all related structures Neck Neck: Yes full ROM Resp Effort & Inspection: normal respiratory effort Auscultation: clear to auscultation bilaterally Cardio Rate: regular rate Rhythm: regular rhythm Heart sounds: S1 normal heart sound present and S2 normal heart sound present GI Other: Abdomen is soft and nontender Back/Spine/Pelvis Other: Right-sided CVA percussion tenderness Skin Other: Skin is pale and dry Neuro Other: The patient is awake and alert with a normal mental status. Cranial nerves are grossly intact. She moves her extremities normally and seems grossly neurologically intact. Extrem Other: No peripheral edema Course Course Course Narrative: This is a rapid medical exam performed by Lovely Jay NP: Additional HPI, ROS, PE not included below will be deferred to primary provider. Patient is a 33-year-old female with history of PTSD, OCD, MDD, migraines, POTS presenting with complaint of abdominal pain. Diagnosed with 2mm calculi to R UVJ on Wednesday, states pain meds, heating pads not helping. Plan: labs, UA Medications Administered Discontinued Medications Generic Name Dose Route Start Last Admin Trade Name Freq PRN Reason Stop Dose Admin Diphenhydramine HCl 25 mg 06/08/24 16:13 06/08/24 16:31 Diphenhydramine Hcl 50 Mg/Ml Vial IVPUSH 06/08/24 16:14 25 mg ONCE ONE Administration Sodium Chloride 1,000 mls @ 999 mls/hr 06/08/24 16:30 06/08/24 18:40 Ns IV 06/08/24 17:30 Infused .Q1H1M AMANUEL Infusion Acetaminophen 1,000 mg in 100 mls @ 400 mls/hr 06/08/24 17:13 06/08/24 17:56 Ofirmev IV 06/08/24 17:27 Infused ONCE ONE Infusion Sodium Chloride 1,000 mls @ 999 mls/hr 06/08/24 17:30 06/08/24 19:41 Ns IV 06/08/24 18:30 Infused .Q1H1M AMANUEL Infusion Ketorolac Tromethamine 10 mg 06/08/24 16:13 06/08/24 16:31 Ketorolac Tromethamine 15 Mg/Ml Vial IVPUSH 06/08/24 16:14 10 mg ONCE ONE Administration Ketorolac Tromethamine 15 mg 06/08/24 19:15 06/08/24 19:41 Ketorolac Tromethamine 15 Mg/Ml Vial IVPUSH 06/08/24 19:16 15 mg ONCE ONE Administration Metoclopramide HCl 10 mg 06/08/24 16:13 06/08/24 16:31 Metoclopramide Hcl 10 Mg/2 Ml Vial IVPUSH 06/08/24 16:14 10 mg ONCE ONE Administration Morphine Sulfate 4 mg 06/08/24 17:13 06/08/24 17:18 Morphine Sulfate 4 Mg/Ml Cartridge IVPUSH 06/08/24 17:14 4 mg ONCE ONE Administration Protocol Oxycodone HCl 10 mg 06/08/24 18:07 06/08/24 18:11 Oxycodone Hcl Immed Release 5 Mg Tablet PO 06/08/24 18:08 10 mg ONCE ONE Administration Tamsulosin HCl 0.4 mg 06/08/24 17:24 06/08/24 18:11 Tamsulosin Hcl 0.4 Mg Capsule PO 06/08/24 17:25 0.4 mg ONCE ONE Administration Medical Decision Making Medical Decision Making [facility] Narrative: The patient is a 33-year-old female who returns with a complaint of right-sided flank pain. She has been seen here 3 days prior and had had a CT of the abdomen and pelvis that showed a 2 mm obstructing calculus of the right ureterovesicular junction associated with moderate to marked right ureterectasis and moderate right hydronephrosis. There were no other kidney or ureteral stones seen. She was prescribed oxycodone. She returns today saying that the pain is persistent despite the oxycodone. No fever or vomiting. On exam she seems to have right-sided CVA percussion tenderness. Vital signs are unremarkable. She has a normal white count and differential. Renal function remains excellent. Urinalysis shows a specific gravity of 1.025. There are trace ketones. The urine dipstick is positive for 3+ blood but there were only 3-5 red cells on microscopy. No signs of infection on the urinalysis. An ultrasound of the right kidney shows no hydronephrosis or kidney stones. The patient was treated symptomatically 1st with ketorolac and subsequently with the morphine. She was given metoclopramide and diphenhydramine for nausea. The patient stated that her nausea resolved but her pain was persistent. She was given 10 mg of oral oxycodone and she still said that the pain was unchanged. Given the absence of findings on the ultrasound and given her normal vital signs and her unremarkable labs I explained to the patient that since this stone seen on CT scan 3 days ago was only 2 mm that I felt there was no real indication for consideration of a urological procedure to address her discomfort. I explained that I felt that continuing to manage her symptoms at home would be reasonable. She told me that the oxycodone she has been using was not helping. I will prescribe morphine tablets instead. She was prescribed tablets for 50 mg morphine immediate release 15 mg (10 tablets) and also ibuprofen and ondansetron. Lab Data 06/08/24 16:25 06/08/24 16:25 Labs: Lab Results 06/08/24 06/08/24 Range/Units 16:25 16:35 WBC 9.5 (4.8-10.8) X10*3/uL RBC 4.12 L (4.20-5.50) X10*6/uL Hgb 13.1 (12.0-16.0) g/dl Hct 37.8 (37.0-47.0) % MCV 91.7 (80.0-98.0) fL MCH 31.8 (27.0-33.0) pg MCHC 34.7 (31.0-35.0) g/dl RDW 17.3 H (11.0-16.0) % Plt Count 284 (160-400) X10*3/uL MPV 9.3 L (9.4-12.3) fL Immature Gran % (Auto) 0.2 (0.0-0.4) % Neut % (Auto) 59.2 (45-73) % Lymph % (Auto) 33.4 (20-40) % [place] % (Auto) 4.5 (2-11) % Eos % (Auto) 2.3 (0-4) % Baso % (Auto) 0.4 (0-2) % Lymph # (Auto) 3.2 (1.2-4.9) X10*3/uL [place] # (Auto) 0.4 (0.1-1.2) X10*3/uL Eos # (Auto) 0.2 (0.0-0.4) X10*3/uL Baso # (Auto) 0.0 (0.0-0.2) X10*3/uL Abs Immat Gran (auto) 0.02 (0.00-0.03) X10*3/uL Absolute Neuts (auto) 5.6 (2.0-8.3) x10*3/uL Absolute Nucleated RBC 0.000 (0.0-0.012) X10*3/uL Nucleated RBC % (auto) 0.0 (0.0-0.2) /100WBC Sodium 140 (135-145) mmol/L Potassium 3.7 (3.3-5.1) mmol/L Chloride 108 (96-108) mmol/L Carbon Dioxide 21 L (22-29) mmol/L Anion Gap 15 (12-20) BUN 7 L (9-16) mg/dL Creatinine 0.80 (0.5-1.4) mg/dL Estim Creat Clear Calc 111.9 Estimated GFR > 60 Random Glucose 83 (60-115) mg/dL Calcium 9.1 (8.4-10.2) mg/dL Total Bilirubin 0.3 (0.0-1.0) mg/dL AST 17 (5-31) U/L ALT 14 (0-31) U/L Alkaline Phosphatase 107 (39-117) U/L Total Protein 7.2 (6.5-8.0) g/dL Albumin 3.9 (3.5-5.0) g/dL Urine Color Yellow Urine Appearance Clear Urine pH 6.0 (5.0-9.0) Ur Specific [place] 1.025 (1.005-1.025) Urine Protein Negative (Neg-Trace) mg/dL Urine Glucose (UA) Negative (Negative) mg/dL Urine Ketones Trace (Negative) mg/dL Urine Blood Large (3+) H (Negative) Urine Nitrite Negative (Negative) Ur Leukocyte Esterase Negative (Negative) Urine RBC 3-5 H (0-2) /HPF Urine WBC 0-5 (0-5) /HPF Ur Squamous Epith Cells 0-2 (0-2) /HPF Calcium Oxalate Crystal Present Urine Bacteria None Seen (None Seen) Hyaline Casts 0-2 (0-2) /LPF Urine Test NEGATIVE (NEGATIVE) Discharge Plan Discharge Clinical Impression: Renal colic on right side Patient Disposition: Home, Self-Care Instructions: Renal Colic (ED) Additional Instructions: Your testing today does not show any worsening findings. The ultrasound does not show any concerning backup of urine. There is no sign of urine infection. I have sent prescriptions for ibuprofen and morphine to your pharmacy which you may use as needed for pain. No driving on morphine. You may also use [id number] Tylenol. I have sent a prescription for ondansetron which you may use as needed for nausea. Drink lot of fluids. Please continue to take the tamsulosin that was previously prescribed at bedtime. You received a dose here this evening. Take your next dose of this tomorrow evening. My hope is that the kidney stone will completely pass in the next day or 2 and that you will not need any intervention or further evaluations. Nevertheless please plan on contacting the urology office on Wednesday for follow up. If you develop a fever or vomiting or significantly worsening symptoms please return to the emergency room. Prescriptions: New morphine 15 mg tablet 15 mg PO Q6H PRN (Reason: pain) Qty: 10 0RF Rx Instructions: Partial Fill upon patient request. ibuprofen 600 mg tablet 600 mg PO Q6H PRN (Reason: pain) Qty: 14 0RF ondansetron 4 mg tablet,disintegrating 4 mg PO Q6H PRN (Reason: nausea and vomiting) Qty: 10 0RF No Action oxycodone 5 mg tablet 5 mg PO Q6H PRN (Reason: pain) Qty: 20 0RF Rx Instructions: Partial Fill upon patient request. tamsulosin [Flomax] 0.4 mg capsule 0.4 mg PO BEDTIME Qty: 7 0RF ondansetron 4 mg tablet,disintegrating 4 mg PO Q8H PRN esomeprazole magnesium 40 mg capsule,delayed release(DR/EC) 40 mg PO DAILY Taltz Autoinjector 80 mg/mL auto-injector subcut acetaminophen 500 mg tablet PO metoprolol succinate 25 mg tablet extended release 24 hr 25 mg PO DAILY norethindrone (contraceptive) 0.35 mg tablet PO albuterol sulfate 90 mcg/actuation HFA aerosol inhaler inhalation bupropion HCl [Wellbutrin XL] 150 mg tablet extended release 24 hr 150 mg PO QAM Qty: 30 2RF hydroxyzine HCl 10 mg tablet 20 mg PO BEDTIME Qty: 60 2RF aripiprazole 5 mg tablet 5 mg PO BEDTIME Qty: 90 1RF escitalopram oxalate 20 mg tablet 30 mg PO DAILY 90 Days Qty: 135 1RF mirtazapine 7.5 mg tablet 7.5 mg PO BEDTIME Qty: 90 1RF Referrals: Feliciano Carney MD [Physician] - (Right-sided 2 mm distal ureteral stone) Cassius Alvarez MD [Primary Care Provider] - Interventions: ED Discharge Assessment Last Done: 06/08/24 19:42 Discharge Date/Time: 06/08/24 19:46 Print Language: Romansh
[2024-06-08 15:30] VITALS: BP 122/76; PULSE 87; RESP 18; TEMP 36.5; O2SAT 99; BMI 37.3
[2024-06-08 16:30] LABS: Basophils Percent Auto 0.4 % (0-2); Eosinophils Absolute Auto 0.2 X10*3/uL (0.0-0.4); Eosinophils Percent Auto 2.3 % (0-4); Hematocrit 37.8 % (37.0-47.0); Hemoglobin 13.1 g/dl (12.0-16.0); Imm Gran Abs Auto 0.02 X10*3/uL (0.00-0.03); Imm Gran Pct Auto 0.2 % (0.0-0.4); Lymphocytes Absolute Auto 3.2 X10*3/uL (1.2-4.9); Lymphocytes Percent Auto 33.4 % (20-40); MANUAL DIFF FLAG NO; Mean Corpuscular HGB Conc 34.7 g/dl (31.0-35.0); Mean Corpuscular Hemoglobin 31.8 pg (27.0-33.0); Mean Corpuscular Volume 91.7 fL (80.0-98.0); Mean Platelet Volume 9.3 fL (9.4-12.3); Monocytes Absolute Auto 0.4 X10*3/uL (0.1-1.2); Monocytes Percent Auto 4.5 % (2-11); Neutrophils Absolute Auto 5.6 x10*3/uL (2.0-8.3); Neutrophils Percent Auto 59.2 % (45-73); Platelet Count 284 X10*3/uL (160-400); Red Blood Count 4.12 X10*6/uL (4.20-5.50); Red Cell Distribution Width 17.3 % (11.0-16.0); White Blood Count 9.5 X10*3/uL (4.8-10.8)
[2024-06-08] MEDS: diphenhydrAMINE HCL 50 MG/ML VIAL 25 MG IVPUSH (16:31)
[2024-06-08] MEDS: Metoclopramide HCl 10 MG/2 ML VIAL IVPUSH (16:31)
[2024-06-08] MEDS: Ketorolac Tromethamine 15 MG/ML VIAL 10 MG IVPUSH (16:31)
[2024-06-08] MEDS: 0.9 % Sodium Chloride 1,000 ML 999 ML IV ×2 (16:31→18:11)
[2024-06-08 16:45] LABS: Alanine Aminotransferase 14 U/L (0-31); Albumin Level 3.9 g/dL (3.5-5.0); Alkaline Phosphatase 107 U/L (39-117); Anion Gap 15 (12-20); Aspartate Amino Transferase 17 U/L (5-31); Bilirubin Total 0.3 mg/dL (0.0-1.0); Blood Urea Nitrogen 7 mg/dL (9-16); Calcium 9.1 mg/dL (8.4-10.2); Carbon Dioxide 21 mmol/L (22-29); Chloride 108 mmol/L (96-108); Creatinine Clr Calc Pharmacy 111.9; Estimated Glomerular Filt Rate > 60; Glucose Random 83 mg/dL (60-115); Potassium 3.7 mmol/L (3.3-5.1); Sodium 140 mmol/L (135-145); Total Protein 7.2 g/dL (6.5-8.0)
[2024-06-08] MEDS: Morphine Sulfate 4 MG/ML CARTRIDGE IVPUSH (17:18)
[2024-06-08] MEDS: Acetaminophen 1,000 MG/100 ML PIGGYBACK 400 MG IV (17:21)
[2024-06-08 17:28] LABS: Appearance Urine Clear; Color Urine Yellow; Glucose Urine UA Negative (Negative); Leukocyte Esterase Urine Negative (Negative); Nitrite Urine Negative (Negative); Specific Gravity - Urine 1.025 (1.005-1.025); UMIC TRIGGER UACC YES; Urine Blood Large (3+) (Negative); Urine Ketones Trace mg/dL (Negative); Urine Protein Negative (Neg-Trace)
[2024-06-08 17:29] LABS: UPreg QC Valid YES; Urine Pregnancy NEGATIVE (NEGATIVE)
[2024-06-08 17:42] LABS: Bacteria Urine None Seen (None Seen); Calcium Oxalate Crystals Urine Present; Hyaline Casts Urine 0-2 /LPF (0-2); Squamous Epithelial Cell Urine 0-2 /HPF (0-2); WBC Urine 0-5 /HPF (0-5)
[2024-06-08] MEDS: oxyCODONE HCl Immed Release 5 MG TABLET 10 MG PO (18:11)
[2024-06-08] MEDS: Tamsulosin HCL 0.4 MG CAPSULE PO (18:11)
[2024-06-08 19:40] VITALS: BP 93/62; PULSE 88; RESP 14; TEMP 36.6; O2SAT 97
[2024-06-08] MEDS: Ketorolac Tromethamine 15 MG/ML VIAL IVPUSH (19:41)
[2024-06-08 19:42] VITALS: BP 93/62; PULSE 88; RESP 14; TEMP 36.6; O2SAT 97
== END 2024-06-08 19:46 | disposition home or self-care (01) ==
PROVIDERS: Registered Nurse Emergency; Emergency Provider Emergency Medicine; PCP Internal Medicine
DX: N23 Unspecified renal colic (principal); J45.909 Unspecified asthma, uncomplicated; Z79.899 Other long term (current) drug therapy
CPT/HCPCS: 36415; 76775; 80053; 81001; 81025; 85025; 96361; 96374; 96375; 96376; 99284; J0131; J1200; J1885; J2270; J2765

== ENCOUNTER 2024-06-12 08:45 | Emergency (ER) | payer OTHER, SELFPAY ==
--- NOTE | ~2024-06-12 | US_ITS ---
EXAMINATION: US RETROPERITONEAL LIMITED, RIGHT (RENAL ONLY) CLINICAL INFORMATION: Probable hydronephrosis. COMPARISON: Renal ultrasound dated June 08, 2024. TECHNIQUE: Real-time ultrasound of the right kidneys using grayscale and color Doppler technique. FINDINGS: RIGHT KIDNEY: 9 x 4 x 6 cm (SAG x AP x TRV). Normal echotexture. Renal cortical thickness is normal. No hydronephrosis. No solid or cystic lesion. Normal flow on color Doppler interrogation of the renal hilum. US/US renal RT IMPRESSION: No hydronephrosis.. Electronically signed by: Moises Chaudhari MD 06/12/2024 02:37 PM EST
[2024-06-12 08:55] VITALS: BP 118/62; PULSE 94; RESP 18; TEMP 36.6; O2SAT 100; BMI 37.0
--- NOTE | 2024-06-12 09:26 | ED_ITS ---
HPI - General Adult General Chief complaint: Back Pain/Injury Stated complaint: kidney stone Time Seen by Provider: 06/12/24 09:23 Source: patient Mode of arrival: ambulatory Limitations: no limitations History of Present Illness ED Provider: Pierre VAIL narrative: Patient is a 33-year-old female with history of gastric bypass, recent diagnosis of 2 mm calculi at right UVJ, OCD, PTSD, MDD, migraines, POTS presenting to the emergency department with complaint of epigastric/chest pain as well as right lower back pain. She feels as though her pain is attributable to her kidney stone. Has been taking Tylenol in the mornings as she can not take ibuprofen due to her bypass. She has been taking the morphine before bedtime as she has a young child at home to care for and can not take it during the day. Has been vomiting 3-4 times per day since Wednesday. Denies saddle anesthesia, bowel or bladder incontinence, fevers. This is her fourth visit to the emergency department since 06/05. MD complaint: epigastric and back pain Onset (ago): day(s) Associated symptoms: nausea/vomiting Treatments prior to arrival: other Related Data Home Medications ?Medication ?Instructions ?Recorded ?Confirmed acetaminophen 500 mg tablet mg PO 09/24/23 03/16/24 albuterol sulfate 90 mcg/actuation inhalation 09/24/23 03/16/24 aerosol inhaler esomeprazole magnesium 40 mg 40 mg PO DAILY 09/24/23 03/16/24 capsule,delayed release ixekizumab 80 mg/mL subcutaneous mg subcut 09/24/23 03/16/24 auto-injector (Taltz Autoinjector) metoprolol succinate 25 mg 25 mg PO DAILY 09/24/23 03/16/24 tablet,extended release 24 hr norethindrone (contraceptive) 0.35 mg PO 09/24/23 03/16/24 mg tablet ondansetron 4 mg disintegrating 4 mg PO Q8H PRN 09/24/23 03/16/24 tablet Previous Rx's ?Medication ?Instructions ?Recorded aripiprazole 5 mg tablet 5 mg PO BEDTIME #90 tabs 03/16/24 escitalopram oxalate 20 mg tablet 30 mg (1.5 x 20 mg) PO DAILY 90 03/16/24 days #135 tabs mirtazapine 7.5 mg tablet 7.5 mg PO BEDTIME #90 tabs 03/16/24 bupropion HCl 150 mg 24 hr tablet, 150 mg PO QAM #30 tabs 05/15/24 extended release (Wellbutrin XL) hydroxyzine HCl 10 mg tablet 20 mg (2 x 10 mg) PO BEDTIME #60 05/15/24 tabs oxycodone 5 mg tablet 5 mg PO Q6H PRN pain #20 tabs 06/05/24 tamsulosin 0.4 mg capsule (Flomax) 0.4 mg PO BEDTIME #7 caps 06/05/24 ibuprofen 600 mg tablet 600 mg PO Q6H PRN pain #14 tabs 06/08/24 morphine 15 mg immediate release 15 mg PO Q6H PRN pain #10 tabs 06/08/24 tablet ondansetron 4 mg disintegrating 4 mg PO Q6H PRN nausea and 06/08/24 tablet vomiting #10 tabs Allergies Allergy/AdvReac Type Severity Reaction Status Date / Time infliximab [From Remicade] AdvReac Headache Verified 06/12/24 08:57 Review of Systems 2 Review of Systems: As per HPI Yes all other systems are reviewed and are negative Constitutional: Constitutional: Reports as per HPI PMFSH Past Medical History Medical History Ankylosing spondylitis Depression Anxiety Asthma Surgical History H/O gastric sleeve Family History Family History Other Ankylosing spondylitis Social History Social History Alcohol intake: current Alcohol intake frequency: holidays/special occasions only Patient Tobacco Use Status: Never used Tobacco Advance Directives: No Advance Directives Information Provided: No Do you have a plan to hurt others: No Plan Physical Exam ED Vital Signs: Vital Signs - 24 hr 06/12/24 08:55 06/12/24 09:56 06/12/24 12:47 Temperature 98 F 98.1 F 98.4 F Pulse Rate 94 86 79 Respiratory Rate 18 16 16 Blood Pressure 118/62 110/66 102/65 Pulse Oximetry 100 99 97 Oxygen Delivery Method Room Air Room Air Room Air BMI result Body Mass Index 37.0 Vital signs have been reviewed and appear to be correct. Blood pressure normal. Heart rate normal. Respiratory rate normal. Temperature normal. Oxygen saturation normal. Const General: cooperative, healthy appearing and no acute distress Nutritional Appearance: obese Orientation/consciousness: oriented to person, oriented to place, oriented to time and patient oriented x3 Limitations: no limitations HENMT Head: Yes normocephalic and Yes atraumatic Ears: external ears normal General nose exam: Normal external nose present Face and sinus: Yes face symmetric Mouth: oropharynx normal and moist mucous membranes Throat: Yes uvula midline Eyes Pupils: Equal, round and reactive pupils present Neck Neck: Yes normal visual inspection, Yes no meningeal signs and Yes supple Resp Effort & Inspection: normal respiratory effort and able to speak in complete sentences Auscultation: clear to auscultation bilaterally Cardio Rate: regular rate Rhythm: regular rhythm Heart sounds: S1 normal heart sound present and S2 normal heart sound present GI Palpation (GI): Soft to palpation, Tenderness to palpation present (GI) in the epigastrum, no guarding and No Rebound tenderness present Auscultation: normoactive bowel sounds General: Yes no CVA tenderness Back/Spine/Pelvis Back: no CVA tenderness Cervical Spine: normal cervical lordosis and cervical ROM normal Thoracic/Lumbar Spine: thoracic and lumbar spine normal to inspection, thoraco- lumbar ROM normal, straight leg raise negative bilaterally, pain with thoraco- lumbar ROM, paraspinal muscle tenderness on the right in the upper lumbar, No thoracic spinal tenderness and No lumbar spinal tenderness Skin General skin exam: elasticity normal and turgor normal Neuro General: oriented to person, oriented to place, oriented to time, patient oriented x3, gait normal, tone normal, moves all extremities, Normal light touch and pain sensation, no meningeal signs, no focal motor deficits, CN's II-XI intact bilaterally and deep tendon reflexes 2+ bilaterally Cranial nerves: Yes Equal, round and reactive pupils present Cognition (Neuro): normal cognition Extrem General: Yes full ROM, Yes no pedal edema and Yes no calf tenderness Psych Mental Status: mental status grossly normal Affect: normal affect Thought process: Normal thought process present Medications Administered Discontinued Medications Generic Name Dose Route Start Last Admin Trade Name Freq PRN Reason Stop Dose Admin Al Hydroxide/Mg Hydroxide 30 ml 06/12/24 09:40 06/12/24 10:13 Magnesium Hydrox/Alum Hydrox 30 Ml Oral.Susp PO 06/12/24 09:41 30 ml ONCE ONE Administration Diazepam 5 mg 06/12/24 09:40 06/12/24 10:13 Diazepam 10 Mg/2 Ml Cartridge IVPUSH 06/12/24 09:41 5 mg STAT STA Administration Diphenhydramine HCl 12.5 mg 06/12/24 11:31 06/12/24 11:48 Diphenhydramine Hcl 50 Mg/Ml Vial IVPUSH 06/12/24 11:32 12.5 mg ONCE ONE Administration Ketorolac Tromethamine 15 mg 06/12/24 10:55 06/12/24 11:06 Ketorolac Tromethamine 15 Mg/Ml Vial IVPUSH 06/12/24 10:56 15 mg ONCE ONE Administration Lidocaine HCl 15 ml 06/12/24 09:40 06/12/24 10:13 Lidocaine Hcl Viscous 2 % 15 Ml Solution MUCOUS MEM 06/12/24 09:41 15 ml ONCE ONE Administration Metoclopramide HCl 10 mg 06/12/24 11:31 06/12/24 11:49 Metoclopramide Hcl 10 Mg/2 Ml Vial IVPUSH 06/12/24 11:32 10 mg ONCE ONE Administration Morphine Sulfate 4 mg 06/12/24 11:31 06/12/24 11:48 Morphine Sulfate 4 Mg/Ml Cartridge IVPUSH 06/12/24 11:32 4 mg ONCE ONE Administration Protocol Ondansetron HCl 4 mg 06/12/24 09:40 06/12/24 10:13 Ondansetron Hcl 4 Mg/2 Ml Vial IVPUSH 06/12/24 09:41 4 mg ONCE ONE Administration Medical Decision Making Medical Decision Making [facility] Narrative: Patient is a 33-year-old female with history of gastric bypass, recent diagnosis of 2 mm calculi at right UVJ, OCD, PTSD, MDD, migraines, POTS presenting to the emergency department with complaint of epigastric/chest pain as well as right lower back pain. On exam patient is awake, A+Ox3, VS WNL, afebrile, normal neurological exam without focal deficits, physical exam findings as above. Given reported symptoms and physical exam findings, initial differential includes lumbar strain, GERD, PUD, gastritis. Feel pain is unlikely related to calculi at this time given report of pain to lumbar area worse with movement. No CVA tenderness. No lower abdominal tenderness. No red flag findings concerning for SEA, cauda equina/cord compression. Will treat with GI cocktail and valium. Labs unremarkable. Patient denies any relief of symptoms from zofran, GI cocktail, valium or toradol. Will obtain renal U/S to assess for any hydronephrosis. Patient states that the oxycodone and morphine she has been prescribed has not helped with her pain at home. Ultrasound notable for no evidence of hydronephrosis. My interpretation is in agreement with the radiologist's interpretation. Possible admission for intractable pain discussed with BRENNAN Perez, who declines admission. Also spoke with Dr. Carney, urologist, who also does not feel patient requires admission. He recommends short course of prednisone, however, patient has had gastric bypass. Will give one time dose of solu-medrol here. Discussed plan with patient, will prescribe cyclobenzaprine as well as lidocaine patches. She has a follow up appointment with her bariatric surgeon on , and recommend patient mention her epigastric pain at that time. Patient specifically requesting additional morphine prescription. After review of [employer] I do not feel comfortable prescribing additional opiates at this time. Case discussed with attending MD, Dr. Judge, who also recently saw patient in the ED. He is in agreement with no additional opiate prescriptions. Will refer to pain management. Return precautions discussed. Patient verbalized understanding of plan. Differential Diagnosis Differential Diagnoses: The differential diagnosis associated with the presentation includes As per [facility] Admission/Observation Consideration of admission/observation: Escalation of care including admission/observation considered Patient would have been admitted to the hospital had their work up had any findings where hospital admission was appropriate and their clinical presentation warranted hospital admission. Consult Healthcare Provider Management of the patient was discussed with: Hospitalist (Silver Perez NP) and Chief Financial Officer (Dr. Carney) Lab Data [facility] Lab Attestation statement: I reviewed the patient's lab results. As per [facility] 06/12/24 09:30 06/12/24 09:30 Labs: Lab Results 06/12/24 06/12/24 Range/Units 09:30 10:02 WBC 7.8 (4.8-10.8) X10*3/uL RBC 4.54 (4.20-5.50) X10*6/uL Hgb 14.4 (12.0-16.0) g/dl Hct 42.3 (37.0-47.0) % MCV 93.2 (80.0-98.0) fL MCH 31.7 (27.0-33.0) pg MCHC 34.0 (31.0-35.0) g/dl RDW 17.1 H (11.0-16.0) % Plt Count 294 (160-400) X10*3/uL MPV 9.4 (9.4-12.3) fL Immature Gran % (Auto) 0.1 (0.0-0.4) % Neut % (Auto) 58.6 (45-73) % Lymph % (Auto) 32.5 (20-40) % [place] % (Auto) 5.2 (2-11) % Eos % (Auto) 2.8 (0-4) % Baso % (Auto) 0.8 (0-2) % Lymph # (Auto) 2.5 (1.2-4.9) X10*3/uL [place] # (Auto) 0.4 (0.1-1.2) X10*3/uL Eos # (Auto) 0.2 (0.0-0.4) X10*3/uL Baso # (Auto) 0.1 (0.0-0.2) X10*3/uL Abs Immat Gran (auto) 0.01 (0.00-0.03) X10*3/uL Absolute Neuts (auto) 4.6 (2.0-8.3) x10*3/uL Absolute Nucleated RBC 0.000 (0.0-0.012) X10*3/uL Nucleated RBC % (auto) 0.0 (0.0-0.2) /100WBC Sodium 139 (135-145) mmol/L Potassium 4.0 (3.3-5.1) mmol/L Chloride 108 (96-108) mmol/L Carbon Dioxide 25 (22-29) mmol/L Anion Gap 10 L (12-20) BUN 7 L (9-16) mg/dL Creatinine 0.79 (0.5-1.4) mg/dL Estim Creat Clear Calc 113.0 Estimated GFR > 60 Random Glucose 96 (60-115) mg/dL Calcium 9.6 (8.4-10.2) mg/dL Troponin I High Sens < 2.7 (<3.5-17.0) ng/L Beta HCG, Quant < 2 mIU/mL Urine Color Dark Yellow Urine Appearance Cloudy Urine pH 5.5 (5.0-9.0) Ur Specific [place] >= 1.030 H (1.005-1.025) Urine Protein Trace (Neg-Trace) mg/dL Urine Glucose (UA) Negative (Negative) mg/dL Urine Ketones Trace (Negative) mg/dL Urine Blood Large (3+) H (Negative) Urine Nitrite Negative (Negative) Ur Leukocyte Esterase Small (1+) H (Negative) Urine RBC 0-2 (0-2) /HPF Urine WBC 0-5 (0-5) /HPF Ur Squamous Epith Cells 6-10 (0-2) /HPF Urine Bacteria 1+ (None Seen) Hyaline Casts 0-2 (0-2) /LPF Independent Interpretation I performed an independent interpretation of an: Ultrasound Interpretation: No evidence of hydronephrosis on u/s. Radiology Impression Discussion of test interpretation with radiology: I have reviewed the radiologist's reading. Radiologist Impression: US/US renal RT IMPRESSION: No hydronephrosis.. External Record Review External record reviewed: Inpatient record, Office record and Outpatient record Prescription Management I considered prescription management with: Pain Medication and Other Discharge Plan Discharge Clinical Impression: Low back strain, Acute epigastric pain Patient Disposition: Home, Self-Care Instructions: Acute Low Back Pain (ED), Epigastric Pain (ED) Additional Instructions: You were evaluated in the emergency department today for back and epigastric pain. You are being prescribed cyclobenzaprine, which is a muscle relaxer. Do not take this in combination with alcohol, oxycodone or morphine as this can cause excessive drowsiness. You are also being prescribed topical lidocaine patches which you can wear for up to 12 hours in a 24 hour period. Do not apply heat directly over the patches. Given your pain persisting despite multiple types of pain medication, we recommend that you follow-up with pain management. We also recommend that you keep your appointment with your bariatric surgeon on and mention your epigastric pain at that time. Follow-up with urology as well. Return to the emergency department if you develop fever, are unable to tolerate any fluids by mouth, are unable to urinate, or any other new or concerning symptoms. Prescriptions: No Action oxycodone 5 mg tablet 5 mg PO Q6H PRN (Reason: pain) Qty: 20 0RF Rx Instructions: Partial Fill upon patient request. tamsulosin [Flomax] 0.4 mg capsule 0.4 mg PO BEDTIME Qty: 7 0RF morphine 15 mg tablet 15 mg PO Q6H PRN (Reason: pain) Qty: 10 0RF Rx Instructions: Partial Fill upon patient request. ibuprofen 600 mg tablet 600 mg PO Q6H PRN (Reason: pain) Qty: 14 0RF ondansetron 4 mg tablet,disintegrating 4 mg PO Q6H PRN (Reason: nausea and vomiting) Qty: 10 0RF ondansetron 4 mg tablet,disintegrating 4 mg PO Q8H PRN esomeprazole magnesium 40 mg capsule,delayed release(DR/EC) 40 mg PO DAILY Taltz Autoinjector 80 mg/mL auto-injector subcut acetaminophen 500 mg tablet PO metoprolol succinate 25 mg tablet extended release 24 hr 25 mg PO DAILY norethindrone (contraceptive) 0.35 mg tablet PO albuterol sulfate 90 mcg/actuation HFA aerosol inhaler inhalation bupropion HCl [Wellbutrin XL] 150 mg tablet extended release 24 hr 150 mg PO QAM Qty: 30 2RF hydroxyzine HCl 10 mg tablet 20 mg PO BEDTIME Qty: 60 2RF aripiprazole 5 mg tablet 5 mg PO BEDTIME Qty: 90 1RF escitalopram oxalate 20 mg tablet 30 mg PO DAILY 90 Days Qty: 135 1RF mirtazapine 7.5 mg tablet 7.5 mg PO BEDTIME Qty: 90 1RF Referrals: [facility] [place]Provider Group] Mehdi Fajardo MD [Physician] - Print Language: Citizen Of [place]
[2024-06-12 09:37] LABS: MANUAL DIFF FLAG NO
--- NOTE | 2024-06-12 09:37 | ECG_ITS ---
Test Reason : CHEST PAIN Blood Pressure : / mmHG Vent. Rate : 083 BPM Atrial Rate : 083 BPM P-R Int : 132 ms QRS Dur : 070 ms QT Int : 392 ms P-R-T Axes : 049 -28 000 degrees QTc Int : 460 ms Sinus rhythm with occasional Premature ventricular complexes Low voltage QRS Abnormal ECG When compared with ECG of 28-OCT-2018 13:02, Premature ventricular complexes are now Present Inverted T waves have replaced nonspecific T wave abnormality in Inferior leads Referred By: Dianna Jay Electronically Signed By:Jim Burton
[2024-06-12 09:40] LABS: Basophils Absolute Auto 0.1 X10*3/uL (0.0-0.2); Basophils Percent Auto 0.8 % (0-2); Eosinophils Absolute Auto 0.2 X10*3/uL (0.0-0.4); Eosinophils Percent Auto 2.8 % (0-4); Hematocrit 42.3 % (37.0-47.0); Hemoglobin 14.4 g/dl (12.0-16.0); Imm Gran Abs Auto 0.01 X10*3/uL (0.00-0.03); Imm Gran Pct Auto 0.1 % (0.0-0.4); Lymphocytes Absolute Auto 2.5 X10*3/uL (1.2-4.9); Lymphocytes Percent Auto 32.5 % (20-40); Mean Corpuscular Hemoglobin 31.7 pg (27.0-33.0); Mean Corpuscular Volume 93.2 fL (80.0-98.0); Mean Platelet Volume 9.4 fL (9.4-12.3); Monocytes Absolute Auto 0.4 X10*3/uL (0.1-1.2); Monocytes Percent Auto 5.2 % (2-11); Neutrophils Absolute Auto 4.6 x10*3/uL (2.0-8.3); Neutrophils Percent Auto 58.6 % (45-73); Platelet Count 294 X10*3/uL (160-400); Red Blood Count 4.54 X10*6/uL (4.20-5.50); Red Cell Distribution Width 17.1 % (11.0-16.0); White Blood Count 7.8 X10*3/uL (4.8-10.8)
[2024-06-12 09:55] LABS: Anion Gap 10 (12-20); Blood Urea Nitrogen 7 mg/dL (9-16); Calcium 9.6 mg/dL (8.4-10.2); Carbon Dioxide 25 mmol/L (22-29); Chloride 108 mmol/L (96-108); Estimated Glomerular Filt Rate > 60; Glucose Random 96 mg/dL (60-115); Sodium 139 mmol/L (135-145)
[2024-06-12 09:56] VITALS: BP 110/66; PULSE 86; RESP 16; TEMP 36.7; O2SAT 99
[2024-06-12 10:07] LABS: Troponin-I High Sensitivity < 2.7 ng/L (<3.5-17.0)
[2024-06-12 10:10] LABS: HCG Quantitative < 2 mIU/mL
[2024-06-12] MEDS: Lidocaine HCl Viscous 2 % 15 ML SOLUTION MUCOUS MEM (10:13)
[2024-06-12] MEDS: Magnesium Hydrox/Alum Hydrox 30 ML ORAL.SUSP PO (10:13)
[2024-06-12] MEDS: ondansetron HCL 4 MG/2 ML VIAL IVPUSH (10:13)
[2024-06-12] MEDS: diazePAM 10 MG/2 ML CARTRIDGE 5 MG IVPUSH (10:13)
[2024-06-12 10:16] LABS: Appearance Urine Cloudy; Color Urine Dark Yellow; Glucose Urine UA Negative (Negative); Leukocyte Esterase Urine Small (1+) (Negative); Nitrite Urine Negative (Negative); PH 5.5 (5.0-9.0); Specific Gravity - Urine >= 1.030 (1.005-1.025); UMIC TRIGGER UACC YES; Urine Blood Large (3+) (Negative); Urine Ketones Trace mg/dL (Negative); Urine Protein Trace mg/dL (Neg-Trace)
[2024-06-12 10:39] LABS: Bacteria Urine 1+ (None Seen); Hyaline Casts Urine 0-2 /LPF (0-2); RBC Urine 0-2 /HPF (0-2); UACC Culture Trigger YES; WBC Urine 0-5 /HPF (0-5)
[2024-06-12] MEDS: Ketorolac Tromethamine 15 MG/ML VIAL IVPUSH (11:06)
--- NOTE | 2024-06-12 11:08 | PC.NURSE ---
patient continues to have lower back pain radiating down her left leg w/ no improvement from medications. epigastric pain has resolved at this time. resting quietly in bed watching tv w/ call may within reach
[2024-06-12] MEDS: Morphine Sulfate 4 MG/ML CARTRIDGE IVPUSH (11:48)
[2024-06-12] MEDS: diphenhydrAMINE HCL 50 MG/ML VIAL 12.5 MG IVPUSH (11:48)
[2024-06-12] MEDS: Metoclopramide HCl 10 MG/2 ML VIAL IVPUSH (11:49)
[2024-06-12 12:47] VITALS: BP 102/65; PULSE 79; RESP 16; TEMP 36.9; O2SAT 97
[2024-06-12 14:52] VITALS: BP 111/70; PULSE 83; RESP 16; TEMP 36.9; O2SAT 95
[2024-06-12] MEDS: methylPREDNISolone Sod Succ 125 MG/2 ML VIAL IVPUSH (15:06)
[2024-06-12 15:30] VITALS: BP 111/70; PULSE 83; RESP 16; TEMP 36.9; O2SAT 95
== END 2024-06-12 15:30 | disposition home or self-care (01) ==
PROVIDERS: Registered Nurse Emergency; Emergency Provider Emergency Medicine; PCP Internal Medicine
DX: R10.13 Epigastric pain (principal); S39.012A Strain of muscle, fascia and tendon of lower back, initial encounter; X58.XXXA Exposure to other specified factors, initial encounter; Y93.9 Activity, unspecified; Y92.9 Unspecified place or not applicable; Y99.9 Unspecified external cause status
CPT/HCPCS: 36415; 76775; 80048; 81001; 84484; 84702; 85025; 87086; 93005; 96374; 96375; 99284; 99285; J1200; J1885; J2270; J2405; J2765; J2919; J3360

== ENCOUNTER → 2024-06-12 09:37 | Outpatient (BNV) | payer OTHER, SELFPAY | PROVIDERS: Emergency Provider Emergency Medicine; PCP Internal Medicine; Visit Provider Internal Medicine Cardiovascular Disease | DX: I49.3 Ventricular premature depolarization (principal) | CPT/HCPCS: 93010 ==

== ENCOUNTER → 2024-06-12 11:21 | Outpatient (BNV) | payer OTHER, SELFPAY | PROVIDERS: Emergency Provider Emergency Medicine; PCP Internal Medicine; Visit Provider Radiology Diagnostic Radiology | DX: M54.59 Other low back pain (principal) | CPT/HCPCS: 76775 ==

== ENCOUNTER 2024-06-13 07:41 | Outpatient (REF) | payer OTHER, SELFPAY ==
[2024-06-13 14:08] LABS: MANUAL DIFF FLAG NO
[2024-06-13 14:13] LABS: Basophils Percent Auto 0.2 % (0-2); Hematocrit 45.4 % (37.0-47.0); Hemoglobin 14.9 g/dl (12.0-16.0); Imm Gran Abs Auto 0.03 X10*3/uL (0.00-0.03); Imm Gran Pct Auto 0.2 % (0.0-0.4); Lymphocytes Absolute Auto 2.6 X10*3/uL (1.2-4.9); Lymphocytes Percent Auto 17.1 % (20-40); Mean Corpuscular HGB Conc 32.8 g/dl (31.0-35.0); Mean Corpuscular Hemoglobin 31.5 pg (27.0-33.0); Monocytes Absolute Auto 0.4 X10*3/uL (0.1-1.2); Monocytes Percent Auto 2.5 % (2-11); Platelet Count 364 X10*3/uL (160-400); Red Blood Count 4.73 X10*6/uL (4.20-5.50); Red Cell Distribution Width 17.1 % (11.0-16.0)
[2024-06-13 15:03] LABS: Erythrocyte Sedimentation Rate 46 MM/HR (0-20)
[2024-06-13 18:38] LABS: Alanine Aminotransferase 17 U/L (0-31); Aspartate Amino Transferase 19 U/L (5-31); C Reactive Protein 0.64 mg/dL (< or = 0.50); Estimated Glomerular Filt Rate > 60
[2024-06-14 05:19] LABS: HBS Num1 1.25 mIU/mL (0-7.99); HBc Num1 0.13 S/CO (0.00-0.79); HBsAGNum1 0.62 S/CO (0.00-0.99); Hepatitis B Core Antibody Nonreactive (Nonreactive); Hepatitis B Surface Antigen Negative (Negative); ~HepC Num1 0.29 S/CO (0.00-0.79); ~Hepatitis B Surface Antibody NONREACTIVE (Nonreactive); ~Hepatitis C Antibody Nonreactive (Nonreactive)
[2024-06-16 05:03] LABS: TS Negative Control Passed; TS Panel A 0; TS Panel B 0; TS Positive Control Passed; TSpotTB Negative (Negative)
== END 2024-06-13 07:42 | disposition home or self-care (01) ==
LOC: HO.HMGCLDS 07:41
PROVIDERS: PCP Internal Medicine; Visit Provider Internal Medicine Rheumatology
DX: M45.9 Ankylosing spondylitis of unspecified sites in spine (principal); Z79.899 Other long term (current) drug therapy
CPT/HCPCS: 36415; 82565; 84450; 84460; 85025; 85652; 86140; 86481; 86704; 86706; 86803; 87340; 99212

== ENCOUNTER 2024-06-13 07:41 | Outpatient (AMB) | payer OTHER, SELFPAY ==
[2024-06-13 08:02] VITALS: BP 116/68; PULSE 90; O2SAT 96
--- NOTE | 2024-06-13 08:02 | A.OFFVIS_ITS ---
Vital Signs 06/13/24 08:02 Weight 207 lb 14.334 oz BP 116/68 Blood Pressure Location Lt brachial Position Sitting Pulse 90 Pulse Source Pulse Oximeter Pulse Oximetry (%) 96 Oxygen Delivery Method Room Air Intake Visit Reasons: /CM Intake Note: Patient is following up on , she was seen in ED with kidney stones. Not sure if it flared up the . Patient is thinking about switching the Taltz. Allergies infliximab [From Remicade] Adverse Reaction (Verified 06/13/24 08:05) Headache HPI HPI /CM: Details: She is starting to have lower back pain radiating down both pain. Heating blanket helps. Recently diagnosed with recurrent right kidney stone diagnosed in ER. She is experiencing right-sided lower back pain that sometimes radiates to the groin. On morphine 15mg qhs and oxycodone 5mg AM prescribed from ER. She is participating in P, which she recently started and only had 1 session.. Massages helps, which she recently started. After her 1st massage she had 1 week of benefit in reducing pain. She is going to chiropractor weekly. Chiropractor provides a couple hours of relief. She had 2 sets of cortisone injections and lumbar spine and SI joints from pain management in January, which lasted 2 and half months. Tizanidine did not help. Dr. No prescribed methocarbamol with benefit. He was taking methocarbamol at bedtime only. She has not taken muscle relaxers during the day. Yesterday she returned to the ER due to back pain and was told that it was related to her back and not her kidney stone. She has not passed a kidney stone at this time yet. [facility] Medical History (Updated 06/13/24 @ 08:38 by Prashant Brady MD) Ankylosing spondylitis Depression Anxiety Asthma Surgical History H/O gastric sleeve Family History Other Ankylosing spondylitis Social History Alcohol intake: current Alcohol intake frequency: holidays/special occasions only Patient Tobacco Use Status: Never used Tobacco Review of Systems Const All systems reviewed & are unremarkable except as noted in HPI and below Physical Exam Vital Signs: Last Vital Signs Pulse 90 06/13/24 08:02 BP 116/68 06/13/24 08:02 Pulse Ox 96 06/13/24 08:02 Oxygen Delivery Method Room Air 06/13/24 08:02 Const Other: General: Comfortable CVS: RRR Respiratory: clear to auscultation bilaterally. Good respiratory effort Skin: No lesions seen MSK: Tender to palpate lumbar spinous process, paraspinal muscles and laterally. Good lumbar flexion. Right SI joint tenderness. Negative KAITLIN. Straight line raising test positive on the left side. No synovitis of any joints. Good range of motion of upper and lower extremities. Assessment & Plan Assessment & Plan (1) Ankylosing spondylitis: Comment: History of ankylosing spondylitis with HLA B27 positivity. MRI L-spine 2012 revealed right sacroiliitis. Bilateral SI joint cortisone injections given regularly by pain management. She was receiving SI joint cortisone injections as early as 06/30/2012 then once in 2012 and then after the end of 2013 every 3 months. Remicade discontinued 01/28/2022 after second induction dose due to intractable migraines. Cimzia from 12/29/2021 to 05/31/2023 secondary treatment failure. Taltz 06/30/2023 to present. Her current pain is likely related to myofascial strain with nephrolithiasis contributing. We discussed management. Code(s): M45.9 - Ankylosing spondylitis of unspecified sites in spine Category: Medical Plan: Continue Taltz 80 mg subcutaneous injection every 4 weeks Labs for disease and drug monitoring ordered. She reports her ESR from yesterday in ER was 67 millimeters/hour (active nephrolithiasis could also be contributing versus underlying inflammatory arthritis) Continue physical therapy, massages and chiropractor. I recommend that she spread her appointments throughout the week for maximum benefit She will have cortisone injections from pain management June 26 She will start muscle relaxer methocarbamol 500 mg twice a day. We discussed side effects of muscle relaxer including increased somnolence. She will discontinue morphine and oxycodone as she is aware of the interactions with narcotics. Return to clinic in 3 months (2) Other custodial (current) drug therapy: Code(s): Z79.899 - Other terminal manager (current) drug therapy Category: Medical Plan: See above Orders: Orders Aspartate Amino Transferase Today Z79.899 - Other terminal manager (current) drug therapy Alanine Aminotransferase Today Z79.899 - Other custodial (current) drug therapy Complete Blood Count Auto Diff Today Z79.89 - Other terminal manager (current) drug therapy Hepatitis B,C Profile Today Z79.89 - Other terminal manager (current) drug therapy Erythrocyte Sedimentation Rate Today Z79.89 - Other terminal manager (current) drug therapy Creatinine Today Z79.89 - Other terminal manager (current) drug therapy T Spot TB Today Z79.899 - Other terminal manager (current) drug therapy Medications: New methocarbamol 500 mg PO BID 60 tabs 1RF Coding Level of Care Code Est Pt Level 4 (61883) Complex EM visit Add On G2211 Diagnoses Ankylosing spondylitis M45.9 Other terminal manager (current) drug therapy Z79.89
== END 2024-06-13 08:38 | disposition home or self-care (01) ==
PROVIDERS: PCP Internal Medicine; Visit Provider Internal Medicine Rheumatology
DX: M45.9 Ankylosing spondylitis of unspecified sites in spine (principal); Z79.899 Other long term (current) drug therapy
CPT/HCPCS: 99214; G2211

== ENCOUNTER 2024-06-27 10:48 | Outpatient (AMB) | payer OTHER, SELFPAY ==
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
== END 2024-06-27 10:49 | disposition home or self-care (01) ==
LOC: HO.HOP 10:48
PROVIDERS: PCP Internal Medicine; Visit Provider Clinical Nurse Specialist Psychiatric/Mental Health
DX: F42.2 Mixed obsessional thoughts and acts (principal); R41.840 Attention and concentration deficit; F43.10 Post-traumatic stress disorder, unspecified; F33.2 Major depressive disorder, recurrent severe without psychotic features
CPT/HCPCS: 99214

== ENCOUNTER 2024-07-06 16:50 | Outpatient (AMB) | payer OTHER, SELFPAY ==
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
== END 2024-07-06 17:42 | disposition home or self-care (01) ==
LOC: HO.HOP 16:50
PROVIDERS: PCP Internal Medicine; Visit Provider Clinical Nurse Specialist Psychiatric/Mental Health
DX: F42.2 Mixed obsessional thoughts and acts (principal); F43.10 Post-traumatic stress disorder, unspecified; F33.2 Major depressive disorder, recurrent severe without psychotic features
CPT/HCPCS: 99214

== ENCOUNTER → 2024-07-07 08:00 | Outpatient (REF) | payer OTHER, SELFPAY ==
--- NOTE | 2024-07-07 08:04 | ECG_ITS ---
Test Reason : pvc's Blood Pressure : / mmHG Vent. Rate : 074 BPM Atrial Rate : 074 BPM P-R Int : 116 ms QRS Dur : 078 ms QT Int : 414 ms P-R-T Axes : 071 -18 015 degrees QTc Int : 459 ms Sinus rhythm with sinus arrhythmia with occasional Premature ventricular complexes Otherwise normal ECG When compared with ECG of 12-JUN-2024 09:47, Minimal criteria for Anterior infarct are no longer Present Referred By: Luz Emanuel Electronically Signed By:TORI HASTINGS MD
[2024-07-07 08:20] LABS: MANUAL DIFF FLAG NO
[2024-07-07 09:03] LABS: Basophils Absolute Auto 0.1 X10*3/uL (0.0-0.2); Basophils Percent Auto 0.3 % (0-2); Eosinophils Absolute Auto 0.1 X10*3/uL (0.0-0.4); Eosinophils Percent Auto 0.5 % (0-4); Hematocrit 42.1 % (37.0-47.0); Hemoglobin 14.2 g/dl (12.0-16.0); Imm Gran Abs Auto 0.07 X10*3/uL (0.00-0.03); Imm Gran Pct Auto 0.5 % (0.0-0.4); Lymphocytes Absolute Auto 3.3 X10*3/uL (1.2-4.9); Lymphocytes Percent Auto 22.7 % (20-40); Mean Corpuscular HGB Conc 33.7 g/dl (31.0-35.0); Mean Corpuscular Hemoglobin 32.4 pg (27.0-33.0); Mean Corpuscular Volume 96.1 fL (80.0-98.0); Mean Platelet Volume 9.4 fL (9.4-12.3); Monocytes Absolute Auto 0.9 X10*3/uL (0.1-1.2); Monocytes Percent Auto 6.1 % (2-11); Neutrophils Absolute Auto 10.3 x10*3/uL (2.0-8.3); Neutrophils Percent Auto 69.9 % (45-73); Platelet Count 329 X10*3/uL (160-400); Red Blood Count 4.38 X10*6/uL (4.20-5.50); Red Cell Distribution Width 14.8 % (11.0-16.0); White Blood Count 14.7 X10*3/uL (4.8-10.8)
[2024-07-07 09:25] LABS: C Reactive Protein 0.82 mg/dL (< or = 0.50)
[2024-07-07 09:34] LABS: Appearance Urine Cloudy; Color Urine Yellow; Glucose Urine UA Negative (Negative); Leukocyte Esterase Urine Small (1+) (Negative); Nitrite Urine Negative (Negative); Specific Gravity - Urine 1.025 (1.005-1.025); UMIC TRIGGER UA YES; Urine Blood Moderate (2+) (Negative); Urine Ketones Trace mg/dL (Negative); Urine Protein 30 (1+) mg/dL (Neg-Trace)
[2024-07-07 09:46] LABS: Bacteria Urine 4+ (None Seen); Calcium Oxalate Crystals Urine Present; RBC Urine >20 /HPF (0-2); WBC Urine >50 /HPF (0-5)
== END ==
LOC: HO.CARD 08:00
PROVIDERS: Internal Medicine Rheumatology; PCP Internal Medicine; Visit Provider Clinical Nurse Specialist Psychiatric/Mental Health
DX: M45.9 Ankylosing spondylitis of unspecified sites in spine (principal); Z79.899 Other long term (current) drug therapy
CPT/HCPCS: 36415; 81001; 85025; 86140; 93005

== ENCOUNTER → 2024-07-07 08:04 | Outpatient (BNV) | payer OTHER, SELFPAY | PROVIDERS: PCP Internal Medicine; Visit Provider Internal Medicine Cardiovascular Disease | DX: I49.3 Ventricular premature depolarization (principal) | CPT/HCPCS: 93010 ==

== ENCOUNTER 2024-07-17 23:18 | Emergency (ER) | payer OTHER, SELFPAY ==
--- NOTE | ~2024-07-17 | US_ITS ---
CLINICAL HISTORY: Left ovarian cyst US pelvis transabdominal and transvaginal with Doppler Comparison: US/SR - US PELVIC AND TRANSVAGINAL - 10/31/21 09:44 EDT Findings: Transabdominal scanning performed for overall anatomy. Transvaginal scanning performed for additional detail. Anteverted uterus is 7.9 cm length. Normal myometrium. Endometrium 7 mm thickness. Right ovary 2.7 cm. Left ovary 4 cm. 2.6 cm cyst. Normal color Doppler with arterial/venous spectral tracing of both ovaries. No free fluid. IMPRESSION: 1. Unremarkable pelvic ultrasound with no evidence of ovarian torsion. 2. Left ovarian cyst measuring 2.6 cm diameter. This document has been electronically signed by: Abdirahman Good MD, PHD on 07/18/2024 04:06:42
[2024-07-17 23:25] VITALS: BP 117/80; PULSE 99; RESP 18; TEMP 36.2; O2SAT 99; BMI 35.2
--- NOTE | 2024-07-17 23:43 | MHC.EDTECH ---
Patient brought into triage area,labs,and urine obtained and sent to lab.
[2024-07-17 23:47] LABS: MANUAL DIFF FLAG NO
[2024-07-17 23:48] LABS: Basophils Absolute Auto 0.1 X10*3/uL (0.0-0.2); Basophils Percent Auto 0.4 % (0-2); Eosinophils Absolute Auto 0.2 X10*3/uL (0.0-0.4); Eosinophils Percent Auto 1.3 % (0-4); Hemoglobin 14.2 g/dl (12.0-16.0); Imm Gran Abs Auto 0.04 X10*3/uL (0.00-0.03); Imm Gran Pct Auto 0.4 % (0.0-0.4); Lymphocytes Absolute Auto 3.8 X10*3/uL (1.2-4.9); Lymphocytes Percent Auto 33.8 % (20-40); Mean Corpuscular HGB Conc 33.8 g/dl (31.0-35.0); Mean Corpuscular Hemoglobin 32.7 pg (27.0-33.0); Mean Corpuscular Volume 96.8 fL (80.0-98.0); Mean Platelet Volume 8.6 fL (9.4-12.3); Monocytes Absolute Auto 0.6 X10*3/uL (0.1-1.2); Monocytes Percent Auto 4.9 % (2-11); Neutrophils Absolute Auto 6.6 x10*3/uL (2.0-8.3); Neutrophils Percent Auto 59.2 % (45-73); Platelet Count 277 X10*3/uL (160-400); Red Blood Count 4.34 X10*6/uL (4.20-5.50); Red Cell Distribution Width 13.6 % (11.0-16.0); White Blood Count 11.1 X10*3/uL (4.8-10.8)
[2024-07-17 23:50] LABS: Appearance Urine Cloudy; Color Urine Dark Yellow; Glucose Urine UA Negative (Negative); Leukocyte Esterase Urine Moderate (2+) (Negative); Nitrite Urine Negative (Negative); PH 5.5 (5.0-9.0); Specific Gravity - Urine >= 1.030 (1.005-1.025); UMIC TRIGGER UACC YES; Urine Blood Moderate (2+) (Negative); Urine Ketones Negative (Negative); Urine Protein 300 (3+) mg/dL (Neg-Trace)
[2024-07-17 23:51] LABS: UPreg QC Valid YES; Urine Pregnancy NEGATIVE (NEGATIVE)
[2024-07-18 00:06] LABS: Bacteria Urine Trace (None Seen); Hyaline Casts Urine 0-2 /LPF (0-2); UACC Culture Trigger YES; WBC Urine >50 /HPF (0-5)
[2024-07-18 00:08] LABS: Anion Gap 12 (12-20); Blood Urea Nitrogen 8 mg/dL (9-16); Calcium 9.5 mg/dL (8.4-10.2); Carbon Dioxide 24 mmol/L (22-29); Chloride 109 mmol/L (96-108); Creatinine Clr Calc Pharmacy 104.7; Estimated Glomerular Filt Rate > 60; Glucose Random 90 mg/dL (60-115); Potassium 3.7 mmol/L (3.3-5.1); Sodium 141 mmol/L (135-145)
[2024-07-18 01:35] VITALS: BP 120/86; PULSE 91; RESP 16; TEMP 36.6; O2SAT 99
--- NOTE | 2024-07-18 01:58 | ED.FEMALEGU ---
HPI - Female Genitourinary General Chief complaint: Urogenital-Female Stated complaint: abd pain, vaginal pressure Time Seen by Provider: 07/18/24 01:57 Source: patient Mode of arrival: ambulatory Limitations: no limitations History of Present Illness ED Provider: HPI Narrative: Patient's history of kidney stone and ovarian cyst previous CT scan in June showed size of 3.5 cm comes here for pain in the right flank and right lower abdomen for last 2 days with nausea and vomiting got worse at 16:30 today Related Data Home Medications ?Medication ?Instructions ?Recorded ?Confirmed acetaminophen 500 mg tablet mg PO 09/24/23 07/06/24 albuterol sulfate 90 mcg/actuation inhalation 09/24/23 07/06/24 aerosol inhaler esomeprazole magnesium 40 mg 40 mg PO DAILY 09/24/23 07/06/24 capsule,delayed release ixekizumab 80 mg/mL subcutaneous mg subcut 09/24/23 07/06/24 auto-injector (Taltz Autoinjector) metoprolol succinate 25 mg 25 mg PO DAILY 09/24/23 07/06/24 tablet,extended release 24 hr norethindrone (contraceptive) 0.35 mg PO 09/24/23 07/06/24 mg tablet benzonatate 200 mg capsule 200 mg PO TID PRN cough 06/27/24 07/06/24 Previous Rx's ?Medication ?Instructions ?Recorded bupropion HCl 150 mg 24 hr tablet, 150 mg PO QAM #30 tabs 05/15/24 extended release (Wellbutrin XL) ondansetron 4 mg disintegrating 4 mg PO Q6H PRN nausea and 06/08/24 tablet vomiting #10 tabs methocarbamol 500 mg tablet 500 mg PO BID #60 tabs 06/13/24 aripiprazole 5 mg tablet 5 mg PO BEDTIME #90 tabs 06/27/24 cholecalciferol (vitamin D3) 25 25 mcg PO DAILY #90 caps 06/27/24 mcg (1,000 unit) capsule mirtazapine 7.5 mg tablet 7.5 mg PO BEDTIME #90 tabs 06/27/24 clonazepam 0.5 mg tablet 0.5 mg PO .COMPLEX #45 tabs 07/06/24 escitalopram oxalate 20 mg tablet 20 mg PO DAILY 90 days #90 tabs 07/07/24 cefuroxime axetil 250 mg tablet 250 mg PO BID 7 days #14 tabs 07/18/24 oxycodone 5 mg tablet 5 mg PO Q6H PRN pain #20 tabs 07/18/24 phenazopyridine 200 mg tablet 200 mg PO TID 2 days #6 tabs 07/18/24 (Pyridium) Allergies Allergy/AdvReac Type Severity Reaction Status Date / Time infliximab [From Remicade] AdvReac Headache Verified 07/17/24 23:29 Review of Systems Review of Systems: Yes all other systems are reviewed and are negative [facility] Past Medical History Medical History Ankylosing spondylitis Depression Anxiety Asthma Surgical History H/O gastric sleeve Family History Family History Other Ankylosing spondylitis Social History Social History Alcohol intake: current Alcohol intake frequency: does not drink Patient Tobacco Use Status: Never used Tobacco Smoked in Last 30 Days: No Use of substances other than those prescribed or required for medical reasons: No Advance Directives: No Advance Directives Information Provided: Yes Physical Exam Vital Signs: Vital Signs: Last Vital Signs Temp 97.9 F 07/18/24 04:49 Pulse 91 07/18/24 04:49 Resp 16 07/18/24 04:49 BP 120/86 07/18/24 04:49 Pulse Ox 99 07/18/24 04:49 O2 Del Method Room Air 07/18/24 04:49 BMI result Body Mass Index 35.2 Appearance: Alert. Oriented X3. No acute distress. Eyes: PERRLA, No Nystagmus ENT: Pharynx normal. Oral Mucosa moist Neck: Normal inspection. Neck supple. CVS: Normal heart rate and rhythm. Pulses normal. Respiratory: No respiratory distress. Equal air entry bilateral, no wheezing/rales/rhonchi Abdomen: Soft and deep tenderness suprapubic area Bowel sounds are present, no mass palpable, right CVA tenderness Skin: Skin warm and dry. Normal skin color. Normal skin turgor. Extremities: No lower extremity edema. No calf tenderness Neuro: Oriented X 3. No motor deficit. No sensory deficit.No cerebellar signs , cranial nerves II-XII intact Medications Administered Discontinued Medications Generic Name Dose Route Start Last Admin Trade Name Estelle PRN Reason Stop Dose Admin Cefuroxime Axetil 500 mg 07/18/24 02:09 07/18/24 02:30 Cefuroxime Axetil 500 Mg Tablet PO 07/18/24 02:10 500 mg ONCE ONE Administration Ondansetron HCl 4 mg 07/18/24 02:09 07/18/24 02:30 Ondansetron Odt 4 Mg Tab.Rapdis TRANSLINGU 07/18/24 02:10 4 mg ONCE ONE Administration Oxycodone HCl 10 mg 07/18/24 02:09 07/18/24 02:30 Oxycodone Hcl Immed Release 5 Mg Tablet PO 07/18/24 02:10 10 mg ONCE ONE Administration Phenazopyridine HCl 200 mg 07/18/24 04:24 07/18/24 04:40 Phenazopyridine Hcl 200 Mg Tablet PO 07/18/24 04:25 200 mg ONCE ONE Administration Medical Decision Making Medical Decision Making [facility] Narrative: Patient with suprapubic and flank pain previous CT scan negative for obstructing kidney stone ultrasound of the pelvis showed 2.6 cm of left ovarian cyst no signs of torsion UA positive for UTI Differential Diagnosis Differential Diagnoses: The differential diagnosis associated with the presentation includes Lab Data [facility] Lab Attestation statement: I reviewed the patient's lab results. 07/17/24 23:42 07/17/24 23:42 Labs: Lab Results 07/17/24 Range/Units 23:42 WBC 11.1 H (4.8-10.8) X10*3/uL RBC 4.34 (4.20-5.50) X10*6/uL Hgb 14.2 (12.0-16.0) g/dl Hct 42.0 (37.0-47.0) % MCV 96.8 (80.0-98.0) fL MCH 32.7 (27.0-33.0) pg MCHC 33.8 (31.0-35.0) g/dl RDW 13.6 (11.0-16.0) % Plt Count 277 (160-400) X10*3/uL MPV 8.6 L (9.4-12.3) fL Immature Gran % (Auto) 0.4 (0.0-0.4) % Neut % (Auto) 59.2 (45-73) % Lymph % (Auto) 33.8 (20-40) % [place] % (Auto) 4.9 (2-11) % Eos % (Auto) 1.3 (0-4) % Baso % (Auto) 0.4 (0-2) % Lymph # (Auto) 3.8 (1.2-4.9) X10*3/uL [place] # (Auto) 0.6 (0.1-1.2) X10*3/uL Eos # (Auto) 0.2 (0.0-0.4) X10*3/uL Baso # (Auto) 0.1 (0.0-0.2) X10*3/uL Abs Immat Gran (auto) 0.04 H (0.00-0.03) X10*3/uL Absolute Neuts (auto) 6.6 (2.0-8.3) x10*3/uL Absolute Nucleated RBC 0.000 (0.0-0.012) X10*3/uL Nucleated RBC % (auto) 0.0 (0.0-0.2) /100WBC Sodium 141 (135-145) mmol/L Potassium 3.7 (3.3-5.1) mmol/L Chloride 109 H (96-108) mmol/L Carbon Dioxide 24 (22-29) mmol/L Anion Gap 12 (12-20) BUN 8 L (9-16) mg/dL Creatinine 0.83 (0.5-1.4) mg/dL Estim Creat Clear Calc 104.7 Estimated GFR > 60 Random Glucose 90 (60-115) mg/dL Calcium 9.5 (8.4-10.2) mg/dL Urine Color Dark Yellow Urine Appearance Cloudy Urine pH 5.5 (5.0-9.0) Ur Specific [place] >= 1.030 H (1.005-1.025) Urine Protein 300 (3+) H (Neg-Trace) mg/dL Urine Glucose (UA) Negative (Negative) mg/dL Urine Ketones Negative (Negative) mg/dL Urine Blood Moderate (2+) H (Negative) Urine Nitrite Negative (Negative) Ur Leukocyte Esterase Moderate (2+) H (Negative) Urine RBC 11-20 H (0-2) /HPF Urine WBC >50 H (0-5) /HPF Ur Squamous Epith Cells 3-5 (0-2) /HPF Urine Bacteria Trace (None Seen) Hyaline Casts 0-2 (0-2) /LPF Urine Test NEGATIVE (NEGATIVE) Radiology Impression Discussion of test interpretation with radiology: I have reviewed the radiologist's reading. Radiologist Impression: [address] [address] Ultrasound Report Signed Patient: Jia Valdez MR#: [id number] : 1990 Acct:[id number] Age/Sex: 33 / F ADM Date: 07/18/24 Loc: .ED Attending Dr: Ordering Physician: Karlos Castaneda MD Date of Service: 07/18/24 Procedure(s): US pelvic and transvaginal Accession Number(s): [id number] cc: Cassius Alvarez MD; Karlos Castaneda MD~ CLINICAL HISTORY: Left ovarian cyst US pelvis transabdominal and transvaginal with Doppler Comparison: US/SR - US PELVIC AND TRANSVAGINAL - 10/31/21 09:44 EDT Findings: Transabdominal scanning performed for overall anatomy. Transvaginal scanning performed for additional detail. Anteverted uterus is 7.9 cm length. Normal myometrium. Endometrium 7 mm thickness. Right ovary 2.7 cm. Left ovary 4 cm. 2.6 cm cyst. Normal color Doppler with arterial/venous spectral tracing of both ovaries. No free fluid. IMPRESSION: 1. Unremarkable pelvic ultrasound with no evidence of ovarian torsion. 2. Left ovarian cyst measuring 2.6 cm diameter. This document has been electronically signed by: Abdirahman Good MD, PHD on 07/18/2024 04:06:42 Discharge Plan Discharge Clinical Impression: Urinary tract infection, Ovarian cyst Patient Disposition: Home, Self-Care Instructions: Ovarian Cyst (ED), Urinary Tract Infection in Women (ED) Additional Instructions: Drink plenty of fluids You have urinary tract infection take antibiotic as advised and you have a small ovarian cyst on the left side which will likely get better in next 2 months Prescriptions: New cefuroxime axetil 250 mg tablet 250 mg PO BID 7 Days Qty: 14 0RF phenazopyridine [Pyridium] 200 mg tablet 200 mg PO TID 2 Days Qty: 6 0RF oxycodone 5 mg tablet 5 mg PO Q6H PRN (Reason: pain) Qty: 20 0RF Rx Instructions: Partial Fill upon patient request. No Action escitalopram oxalate 20 mg tablet 20 mg PO DAILY 90 Days Qty: 90 1RF ondansetron 4 mg tablet,disintegrating 4 mg PO Q6H PRN (Reason: nausea and vomiting) Qty: 10 0RF esomeprazole magnesium 40 mg capsule,delayed release(DR/EC) 40 mg PO DAILY Taltz Autoinjector 80 mg/mL auto-injector subcut acetaminophen 500 mg tablet PO metoprolol succinate 25 mg tablet extended release 24 hr 25 mg PO DAILY norethindrone (contraceptive) 0.35 mg tablet PO albuterol sulfate 90 mcg/actuation HFA aerosol inhaler inhalation bupropion HCl [Wellbutrin XL] 150 mg tablet extended release 24 hr 150 mg PO QAM Qty: 30 2RF methocarbamol 500 mg tablet 500 mg PO BID Qty: 60 1RF benzonatate 200 mg capsule 200 mg PO TID PRN (Reason: cough) aripiprazole 5 mg tablet 5 mg PO BEDTIME Qty: 90 1RF cholecalciferol (vitamin D3) 25 mcg (1,000 unit) capsule 25 mcg PO DAILY Qty: 90 1RF mirtazapine 7.5 mg tablet 7.5 mg PO BEDTIME Qty: 90 1RF clonazepam 0.5 mg tablet 0.5 mg PO .COMPLEX Qty: 45 0RF Rx Instructions: 0.5 mg orally take 1/2 tab daily prn anxiety and take one at bedtime every night; Interventions: ED Discharge Assessment Last Done: 07/18/24 04:49 Discharge Date/Time: 07/18/24 04:50 Print Language: American
[2024-07-18] MEDS: oxyCODONE HCl Immed Release 5 MG TABLET 10 MG PO (02:30)
[2024-07-18] MEDS: cefuroxime axetiL 500 MG TABLET PO (02:30)
[2024-07-18] MEDS: Ondansetron ODT 4 MG TAB.RAPDIS TRANSLINGU (02:30)
[2024-07-18] MEDS: Phenazopyridine HCL 200 MG TABLET PO (04:40)
[2024-07-18 04:49] VITALS: BP 120/86; PULSE 91; RESP 16; TEMP 36.6; O2SAT 99
== END 2024-07-18 04:50 | disposition home or self-care (01) ==
PROVIDERS: Emergency Provider Internal Medicine; PCP Internal Medicine
DX: N39.0 Urinary tract infection, site not specified (principal); N83.202 Unspecified ovarian cyst, left side; R10.2 Pelvic and perineal pain; Z79.899 Other long term (current) drug therapy
CPT/HCPCS: 36415; 76830; 76856; 80048; 81001; 81025; 85025; 87086; 87088; 87186; 99284

== ENCOUNTER → 2024-07-18 02:09 | Outpatient (BNV) | payer OTHER, SELFPAY | PROVIDERS: Emergency Provider Internal Medicine; PCP Internal Medicine; Visit Provider General Practice | DX: N83.202 Unspecified ovarian cyst, left side (principal) | CPT/HCPCS: 76830; 76856 ==

== ENCOUNTER 2024-07-24 12:19 | Outpatient (AMB) | payer OTHER, SELFPAY ==
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
== END 2024-07-24 12:20 | disposition home or self-care (01) ==
LOC: HO.HOP 12:19
PROVIDERS: PCP Internal Medicine; Visit Provider Clinical Nurse Specialist Psychiatric/Mental Health
DX: F42.2 Mixed obsessional thoughts and acts (principal); R41.840 Attention and concentration deficit; F43.10 Post-traumatic stress disorder, unspecified; F33.2 Major depressive disorder, recurrent severe without psychotic features
CPT/HCPCS: 99214

== ENCOUNTER → 2024-07-24 12:19 | Outpatient (BNVA) | payer OTHER, SELFPAY | PROVIDERS: PCP Internal Medicine; Visit Provider Clinical Nurse Specialist Psychiatric/Mental Health | DX: F33.2 Major depressive disorder, recurrent severe without psychotic features (principal); F43.10 Post-traumatic stress disorder, unspecified; F42.2 Mixed obsessional thoughts and acts; R41.840 Attention and concentration deficit; Z79.2 Long term (current) use of antibiotics | CPT/HCPCS: 99212 ==

== ENCOUNTER 2024-07-25 09:09 | Outpatient (AMB) | payer OTHER, SELFPAY ==
--- NOTE | 2024-07-25 09:19 | A.OFFVIS_ITS ---
Vital Signs 07/25/24 09:23 Height 5 ft 3 in Weight 203 lb 6 oz BMI 36.0 BP 130/78 Blood Pressure Location Lt brachial Position Sitting Pulse 84 Pulse Source Pulse Oximeter Pulse Oximetry (%) 98 Oxygen Delivery Method Room Air Intake Visit Reasons: /CM Intake Note: Patient presents for follow up on , today states she is in pain in both ankles, and right side of back and all her joints. Allergies infliximab [From Remicade] Adverse Reaction (Verified 07/25/24 09:24) Headache HPI HPI /CM: Details: She is currently being treated for UTI day 3 of macrobid. COntinues to have right lower back pain and pain in all joints. No joint swelling. Pain in joints started 2 days ago. She is taking tylenol 1000mg q6h, oxycodone 5mg qhs, methocarbomal in the afternoon. After taking methocarbamol she feels a little tired. She received SI joint injections in June by pain management that relieved her lower back pain. [facility] Medical History Ankylosing spondylitis Depression Anxiety Asthma Surgical History H/O gastric sleeve Family History Other Ankylosing spondylitis Social History Alcohol intake: current Alcohol intake frequency: does not drink Patient Tobacco Use Status: Never used Tobacco Review of Systems Const All systems reviewed & are unremarkable except as noted in HPI and below Physical Exam Vital Signs: Last Vital Signs Pulse 84 07/25/24 09:23 BP 130/78 07/25/24 09:23 Pulse Ox 98 07/25/24 09:23 Oxygen Delivery Method Room Air 07/25/24 09:23 BMI result Body Mass Index 36.0 Const Other: General: Comfortable CVS: RRR Respiratory: clear to auscultation bilaterally. Good respiratory effort Skin: No lesions seen MSK: Tenderness of left knee with mild synovitis. Tender left ankle. Good range of motion of upper extremity and lower extremity. Tender right flank area. Good lumbar flexion. Assessment & Plan Assessment & Plan (1) Ankylosing spondylitis: Comment: History of ankylosing spondylitis with HLA B27 positivity on Taltz (06/30/2023 to present). She has a recent UTI contributing to flank pain and recent peripheral joint pain. We discussed association with infections contributing to arthralgias and inflammatory arthritis flare. I am concerned that she has developed reactive arthritis contributing to left knee synovitis. She is on day 3 of 5 Macrobid for a UTI treatment. Contraindication to oral NSAIDs due to history of bariatric surgery. We discussed using topical diclofenac applied to her joints to help control pain. I expect pain in peripheral joints to subside after UTI is fully treated. If she continues to have right flank pain with urinary symptoms after she completes macrobid, I recommended that she follow-up with PCP or urologist for consideration of another course of antibiotic treatment. Urology has ordered CT abdomen, which patient hopes to do in the coming weeks. Code(s): M45.9 - Ankylosing spondylitis of unspecified sites in spine Category: Medical Qualifiers: Ankylosing spondylitis location: sacral region Qualified Code(s): M45.8 - Ankylosing spondylitis sacral and sacrococcygeal region Plan: Continue treatment for UTI Continue Tylenol 1000 mg Q 6 hourly and oxycodone 5 mg q.h.s.. She can increase frequency of methocarbamol 500 mg 2 b.i.d. She will apply diclofenac gel 1% to affected area every 4-6 hours as needed I am holding off on prescribing a course of prednisone at this time while she is on an antibiotic to treat UTI. She will call office if joint symptoms progress. I will then consider prescribing prednisone course. She will apply heat to her back as needed She will resume Taltz after she completes antibiotic treatment and her UTI resolves. She is due for Taltz 08/08/2024. Return to clinic in 2 months Medications: New diclofenac sodium 1% (Arthritis Pain (diclofenac)) apply to affected area every 4-6 hours PRN 4 grams topical QID 100 grams 5RF Coding Level of Care Code Est Pt Level 3 (21845) Complex EM visit Add On G2211 Diagnoses Ankylosing spondylitis of sacral region M45.8 Ankylosing spondylitis location: sacral region
[2024-07-25 09:23] VITALS: BP 130/78; PULSE 84; O2SAT 98; BMI 36.0
== END 2024-07-25 10:05 | disposition home or self-care (01) ==
PROVIDERS: PCP Internal Medicine; Visit Provider Internal Medicine Rheumatology
DX: M45.8 Ankylosing spondylitis sacral and sacrococcygeal region (principal)
CPT/HCPCS: 99213; G2211

== ENCOUNTER → 2024-07-25 09:09 | Outpatient (BNVA) | payer OTHER, SELFPAY | PROVIDERS: PCP Internal Medicine; Visit Provider Internal Medicine Rheumatology | DX: M45.8 Ankylosing spondylitis sacral and sacrococcygeal region (principal) | CPT/HCPCS: 99212 ==

== ENCOUNTER 2024-08-24 15:29 | Outpatient (AMB) | payer OTHER, SELFPAY ==
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
--- OUTSIDE RECORDS SUMMARY | 2024-08-24 15:33 | XMS_ITS | Encounter Summary ---
Author Organization [facility] Address [address] [place] [address] Care Team Providers Care Packaging Materials Inspector Name Role Phone Cassius Alvarez MD Primary Care Provider [phone] Encounter Details Date Type Department Care Team (Latest Contact Info) Description 08/21/[address] [facility] - Main Lab [address] [place] [address] Donald Wall, GUIC[place] [address] [facility] [address] [place] [address] Hydronephrosis with renal and ureteral calculous obstruction Social History Tobacco Use Types Packs/Day Years Used Date Smoking Tobacco: Never Smokeless Tobacco: Never Alcohol Use Standard Drinks/Week Comments Yes 0 (1 standard drink = 0.6 oz pur e alcohol) Comments Yes Sex and Gender Information Value Date Recorded Sex Assigned at Female 06/19/2024 12:07 PM EST Legal Sex Female 2:35 AM EST Gender Identity Female 06/19/2024 12:07 PM EST Sexual Orientation Straight 06/19/2024 12 :07 PM EST documented as of this encounter Functional Status * Are you deaf or do you have serious difficulty hearing? Answer Date of Assessment Author No 06/17/2024 1:59 AM EST Jessica Esqueda RN * Are you blind or do you have serious difficulty seeing, even when wearing glasses? Answer Date of Assessment Author No 06/17/2024 1:59 AM Jessica Cerrato RN * Do you have serious difficulty walking or climbing stairs? Answer Date of Assessment Author No 06/17/2024 1:59 AM Jessica Cerrato RN * Do you have serious difficulty dressing or bathing? Answer Date of Assessment Author No 06/17/2024 1:59 AM Jessica Cerrato RN * Because of a physical, mental, or emotional condition, do you have serious difficulty doing errandsalone such as visiting the doctor? Answer Date of Assessment Author No 06/17/2024 1:59 AM Jessica Cerrato RN documented as of this encounter Mental Status * Because of a physical, mental, or emotional condition, do you have serious difficulty concentrating, remembering, or making decisions? (5 years old or older) Answer Entry Date Author No 06/17/2024 1:59 AM Jessica Cerrato RN documented in this encounter Plan of Treatment Upcoming Encounters Date Type Department Care Team (Late st Contact Info) Description 09/07/2024 9:40 AM EST Office Visit Gastroenterology - [address] [facility] [address] [phone] Aristeo Little PA [address] [address] 09/11/2024 8:30 AM EST Nutrition Bariatric Surgery [facility] [address] [phone] [address] 10/16/2024 8:30 AM EDT Office Visit Bariatric Surgery [facility] [address] [phone] Dayana Frost MD [address] [phone] 11/29/2024 1:30 PM EDT Office Visit Obstetrics and Gynecology - [place] [address] [place] [phone] Jewels Rogers, [facility] [address] [place], [place] documented as of this encounter Procedures Procedure Name Priority Date/Time Associated Diagnosis Comments PARATHYROID HORMONE INTACT Routine 08/21/2024 10:22 AM EST Hydronephrosis with renal and ureteral calculous obstruction documented in this encounter Results * Parathyroid hormone intact (08/21/2024 10:22 AM EST) PTH 54.2 18.5 - 88.0 pcg/mL LAB CHEMISTRY METHOD 08/21/2024 2:11 PM EST [facility] Blood Venous blood specimen / Unknown 08/21/2024 10:22 AM EST 08/21/2024 1:17 PM EST us Donald R Mae PA LAB BLOOD ORDERABLES Final Res ult [facility] [address] [place] [address], documented in this encounter Visit Diagnoses Diagnosis Hydronephrosis with renal and ureteral calculous obstruction documented in this encounter Care Teams Packaging Materials Inspector Relationship Specialty Start Date End Date Cassius Alvarez MD [address] [place] [phone] PCP - General Internal Medicine 06/07/24 documented as of this encounter
--- OUTSIDE RECORDS SUMMARY | 2024-08-24 15:33 | XMS_ITS | Clinical Summary ---
Author Organization [facility] Address [address] [place] [address] Care Team Providers Care Preventive Medicine Specialist Name Role Phone Cassius Alvarze MD Primary Care Provider [phone] Allergies Active Allergy Reactions Criticality Noted Date Comments Infliximab High 04/16/2021 Other reaction(s): Headaches, SEVERE HEADACHE Medications Medication Sig Dispensed Refills Start Date End Date Status Melatonin 1 MG TABS tablet Take 1 tablet (1 mg total) by mouth every night at bedtime. 0 Active Acetaminophen Extra Strength 500 MG TABS 0 07/22/2023 Acti ve albuterol 108 (90 Base) MCG/ACT inhaler Inhale 2 puffs into the lungs every 6 (six) hours as needed. 0 Active escitalopram (LEXAPRO) 20 MG tablet 0 08/10/2023 Active fluticasone-vilanterol (Breo Ellipta) 100-25 MCG/ACT inhaler INHALE 1 PUFF INTO THE LUNGS DAILY 0 02/26/2021 Active hydrOXYzine (ATARAX) 10 MG tablet TAKE 1 TABLET BY MOUTH 3 TO 4 TIMES DAILY NEEDED FOR ANXIETY 0 02/02/2022 Active Taltz 80 MG/ML SOAJ 0 08/09/2023 Activ e metoprolol succinate (TOPROL-XL) 24 hr tablet 25 mg Take 1 tablet (25 mg total) by mouth daily. 0 07/20/2023 Active mirtazapine (REMERON) 7.5 MG tablet Take 1 tablet (7.5 mg total) by mouth every night at bedtime. 0 08/02/2023 Active Multiple Vitamins-Minerals (Bariatric Multivitamins/Iron) CAPS 0 07/22/2023 Active norethindrone (MICRONOR) 0.35 MG tablet 0 08/11/2023 Active omeprazole (PriLOSEC) 40 MG capsule 1 capsule (40 mg total). 0 09/03/2020 Active ARIPiprazole (ABILIFY) 5 MG tablet Take 1 tablet (5 mg total) by mouth daily. 0 Active Active Problems Problem Noted Date Diagnosed Date Iron deficiency anemia due to chronic blood loss 03/21/2024 Family History Medical History Relation Name Comments No Sig Med Hx Father Cancer Maternal Grandfather prostat e Stroke Maternal Grandfather No Sig Med Hx Mother Cancer Paternal Aunt Breast' Stroke Paternal Grandmother Relation Name Status Comments Father Alive Maternal Grandfather Mother Alive Paternal Aunt Paternal Grandmother Social History Tobacco Use Types Packs/Day Years Used Date Smoking Tobacco: Never Smokeless Tobacco: Never Alcohol Use Standard Drinks/Week Comments Yes 0 (1 standard drink = 0.6 oz pur e alcohol) 1 or 2 times a year Sex and Gender Information Value Date Recorded Sex Assigned at Female 08/16/2023 3:47 PM EST Gender Identity Not on file Sexual Orientation Not on file Job Start Date Occupation Industry Not on file Not on file Not on file Last Filed Vital Signs Vital Sign Reading Time Taken Comments Blood Pressure 109/67 05/08/2024 9:08 AM EDT Pulse 72 05/08/2024 9:08 AM EDT Temperature 36.5 ??C (97.7 ??F) 05/08/2024 9:08 AM ED T Respiratory Rate 18 04/03/2024 12:59 PM EDT Oxygen Saturation 100% 05/08/2024 9:08 AM EDT Inhaled Oxygen Concentration - - Weight 93.9 kg (207 lb) 05/08/2024 9:08 AM EDT Height 160 cm (5' 3 ) 03/06/2024 8:37 AM EDT Body Mass Index 36.67 03/06/2024 8:37 AM EDT Plan of Treatment Health Maintenance Due Date Last Done Comments Hepatitis C Screening 1992 Depression Screening 2004 BMI Counseling 2010 Preventative Health Evaluation 2010 Cervical Cancer Screening (Pap Smear) 2013 COVID-19 Vaccine ( season) 2024 05/28/2023, 10/09/2021, 05/17/2021, Additional history exists Influenza Vaccine (#1) 2024 , 04/18/2022, 05/01/2021, Additional history exists DTap / Tdap / Td (9 - Td or Tdap) 06/05/2032 06/05/2022, 11/26/2020, 04/23/2009, Additional history exists Hepatitis B Vaccines Completed 04/25/1993, 1992, 1992 Pneumococcal Vaccine Aged Out No long er eligible based on patient's age to complete this topic RSV Ped < 20 months Aged Out No longe r eligible based on patient's age to complete this topic Care Teams Preventive Medicine Specialist Relationship Specialty Start Date End Date Cassius Alvarez MD [address] [place] [address] PCP - General Internal Medicine 08/16/23
--- OUTSIDE RECORDS SUMMARY | 2024-08-24 15:33 | XMS_ITS | Encounter Summary ---
Author Organization [facility] Address [address] [place] [address] Care Team Providers Care Level Vial Setter Name Role Phone Cassius Alvarez MD Primary Care Provider [phone] Reason for Visit * Reason Comments Follow-up 1 month FU Encounter Details Date Type Department Care Team (Late st Contact Info) Description 08/14/2024 8:30 AM EST Office Visit Bariatric Surgery - [place] [address] [facility] [address] [place] [address] Dayana Frost MD 175 [facility] [address] [place] [address] S/P bariatric surgery (Primary Dx); Hx of hypoglycemia; Dumping syndrome; Obesity, Class II, BMI 35-39.9 Social History Tobacco Use Types Packs/Day Years [...] Sign Reading Time Taken Comments Blood Pressure 115/74 08/14/2024 8:26 AM EST Pulse 93 08/14/2024 8:26 AM EST Temperature 36.7 ??C (98.1 ??F) 08/14/2024 8:26 AM ES T Respiratory Rate - - Oxygen Saturation - - Inhaled Oxygen Concentration - - Weight 93 kg (205 lb) 08/14/2024 8:26 AM EST Height 160 cm (5' 3 ) 08/14/2024 8:26 AM EST Body Mass Index 36.31 08/14/2024 8:26 AM EST documented in this encounter Functional Status * Are you deaf or do you have serious difficulty hearing? Answer Date of Assessment Author No 06/17/2024 1:59 AM Jessica Cerrato RN * Are you blind or do [...] Jessica Cerrato RN documented in this encounter Progress Notes * Dayana Frost MD - 08/14/2024 8:30 AM EST Ricardo presents for follow-up. Last seen about a month ago. Fluid: 30- 40 oz crystal light Diet: acid reflux. Is on esomeprazole and Tums. Feels a restriction Exercise: not walking much. Doing some weight lifting Hypoglycemia: When symptomatic and checks her glucose, she has seen numbers down to 41 and 52, lastof which was 2 weeks ago, no episode since she has started acarbose. Continues to follow a dumping diet, avoiding ice cream Added salt to diet per cardio for POTS, feels better, and has stress test next week. Weight change since last visit: 200-205= +5 lbs Vitals: 08/14/24 0826 BP: 115/74 Pulse: 93 Temp: 36.7 ??C (98.1 ??F) TempSrc: Temporal Weight: 93 kg (205 lb) Height: 1.6 m (63 ) A/P: Lost 10 lbs last visit and regained 5 lbs. Continue diet. Continue follow up with dietitian. Increase activity level with cardio and more walking. Labs due in January next. Continue acarbose for now. Follow up with her other providers, cardiology and quality control microbiology supervisor. Status: wrong. Need to change to NOT documented in this encounter Plan of Treatment Upcoming Encounters Date Type Department Care Team (Late st Contact Info) Description 09/07/2024 9:40 AM EST Office Visit Gastroenterology - 299 [facility] [address] [phone] Aristeo Little PA 299 [facility] [address] [place] [address] 09/11/2024 8:30 AM EST Nutrition Bariatric Surgery - [place] [address] [phone] Katelin Davey, KASSIDY [address] [address] 10/16/2024 8:30 AM EDT Office Visit Bariatric Surgery - [place] [address] [phone] Dayana Frost MD [address] [phone] 11/29/2024 1:30 PM EDT Office Visit Obstetrics and Gynecology - [address] [phone] Jewels Rogers, [facility] [place] [address] documented as of this encounter Visit Diagnoses Diagnosis S/P bariatric surgery- Primary Hx of hypoglycemia Dumping syndrome Postgastric surgery syndromes Obesity, Class II, BMI 35-39.9 documented in this encounter Care Teams Level Vial Setter Relationship Specialty Start Date End Date Cassius Alvarez MD [address] [place] [phone] PCP - General Internal Medicine 06/07/24 documented as of this encounter
--- OUTSIDE RECORDS SUMMARY | 2024-08-24 15:33 | XMS_ITS | Patient Health Record ---
Author Organization [facility] Address [address] [place] [address] REASON FOR REFERRAL No Information PLAN OF TREATMENT No Information Insurance Providers Payer Name Payer Address Payer Phone Subscriber Number Group Number Insured Name Patient Relationship to Insured Coverage Start Date Coverage End Date [employer]/Angie or Options [address] [place] [id number] [phone] [id number] DAINA ARENAS Self - patient is the insured
--- OUTSIDE RECORDS SUMMARY | 2024-08-24 15:33 | XMS_ITS | Encounter Summary ---
Author Organization [facility] [place] [address] Care Team Providers Care Power Tong Operator Name Role Phone Cassius Alvarez MD Primary Care Provider [phone] Reason for Visit * Reason Comments Ovarian Cyst Encounter Details Date Type Department Care Team (Late st Contact Info) Description 07/26/2024 10:30 AM EST Office Visit Obstetrics and Gynecology [address] [phone] Shannon He MD [address] [place] [address] Breakthrough bleeding on control pills (Primary Dx); Paratubal cyst Social History Tobacco Use Types Packs/Day Years [...] Reading Time Taken Comments Blood Pressure 115/74 07/26/2024 10:51 AM EST Pulse 78 07/26/2024 10:51 AM EST Temperature - - Respiratory Rate 16 07/26/2024 10:51 AM EST Oxygen Saturation - - Inhaled Oxygen Concentration - - Weight 92.7 kg (204 lb 6.4 oz) 07/26/2024 10:51 AM EST Height 160 cm (5' 3 ) 07/26/2024 10:51 AM EST Body Mass Index 36.21 07/26/2024 10:51 AM EST documented in this encounter Functional [...] documented in this encounter Progress Notes * Shannon He MD - 07/26/2024 11:25 AM ESTAssociated Problem(s): Paratubal cyst Explained this is small, simple, and does not cause symptoms or require follow up. * Shannon He MD - 07/26/2024 11:24 AM ESTAssociated Problem(s): Breakthrough bleeding on control pills I counseled that irregular bleeding, and even oligomenorrhea or amenorrhea is not unusual on this pill, not dangerous. She can continue on it if she is not going to be worried. She agreed. * Shannon He MD - 07/26/2024 10:30 AM EST 07/26/2024 Chief Complaint Patient presents with Ovarian Cyst Subjective: Jia Valdez is a 33 y.o. who presents for US follow up and irregular menses. She presented for left flank pain to the [facility] ED on 06/17. Recently diagnosed with L kidney stone. US showed resolved, but was still having pain. Had a pelvic US showing a 1.3 cm right sided simple paraovarian cyst. Otherwise normal. Here for follow up of this. She continues to have pain on the left side and is being managed by Urology. No pain on the right. Also c/o irregular menses. Stopped Micronor in November due to STAFFORD, then started again in April. No STAFFORD,just irregular menses. Fist one was 18 days late after starting pill in April. She notes next onewas normal. Came again 1 week later on 06/18 and not since. Taking tests at home and negative. Taking pill as directed nightly without missing. Review of Systems: As in HPI. Patient Active Problem List Diagnosis ADHD (attention deficit hyperactivity disorder) Adnexal cyst Allergic rhinitis Ankylosing spondylitis (CMS/HCC) Anxiety Asthma Bladder spasms Bulimia DDD (degenerative disc disease), lumbosacral Depression Dizziness of unknown etiology Dysmenorrhea Elevated blood pressure reading Iron deficiency anemia due to chronic blood loss Iron deficiency anemia Leukocytosis Maternal varicella, non-immune Menorrhagia with regular cycle Migraine with aura Nephrolithiasis OCD (obsessive compulsive disorder) GRAY (obstructive sleep apnea) Pelvic pain Positive GBS test POTS (postural orthostatic tachycardia syndrome) Vitamin D deficiency Breakthrough bleeding on control pills Paratubal cyst No past medical history on file. No past surgical history on file. Family History Problem Relation Name Age of Onset No Known Problems Mother No Known Problems Father Cancer Father's Sister Breast' Stroke Maternal Grandfather Cancer Maternal Grandfather prostate Stroke Paternal Grandmother Social History Socioeconomic History Marital status: Single Spouse name: None Number of children: None Years of education: None Highest education level: None Occupational History None Tobacco Use Smoking status: Never Smokeless tobacco: Never Substance and Sexual Activity Alcohol use: Yes Drug use: No Sexual activity: Yes Partners: Male Other Topics Concern None Social History Narrative None OB History Para Term AB Living 2 1 1 1 SAB IAB Ectopic Multiple Live Births 1 # Outcome Date GA Lbr Enmanuel/2nd Weight Sex Type Anes PTL Lv 2 Current 1 Term 08/04/22 37w6d M Vag-Spont ZULLY Current Outpatient Medications on File Prior to Visit Medication Sig Dispense Refill acarbose (Precose) 25 mg tablet Take 1 tablet (25 mg total) by mouth 3 (three) times a day with meals. 90 tablet 11 acetaminophen (TYLENOL) 500 mg tablet albuterol 2.5 mg /3 mL (0.083 %) nebulizer solution Take 1 Vial by nebulization every 4 hours as needed. albuterol HFA (PROAIR HFA ; PROVENTIL HFA ; VENTOLIN HFA) 90 mcg/actuation inhaler Inhale 2 Puffs into the lungs every 4 hours as needed for Cough or Wheezing for up to 30 days. ARIPiprazole (ABILIFY) 5 mg tablet Take 1 tablet (5 mg total) by mouth. at bedtime. blood-glucose meter kit 1 Kit by Does not apply route daily. buPROPion XL (WELLBUTRIN XL) 150 mg 24 hr tablet clonazePAM (KlonoPIN) 0.5 mg tablet Take 1 tablet (0.5 mg total) by mouth 1 (one) time each day. escitalopram (LEXAPRO) 20 mg tablet Take 1 tablet (20 mg total) by mouth 1 (one) time each day. esomeprazole (NexIUM) [address] capsule Take 1 capsule (40 mg total) by mouth 1 (one) time each day before breakfast. Do not open capsule. 90 each 0 fluticasone furoate-vilanteroL (Breo Ellipta) 100-25 mcg/dose inhaler INHALE 1 PUFF INTO THE LUNGS DAILY hydrOXYzine HCL (ATARAX) 25 mg tablet TAKE 2 TABLETS BY MOUTH AT BEDTIME. MAY TAKE ADDITIONAL 25 MGIF AWAKE IN 1 HOUR medical supply, miscellaneous (MISCELLANEOUS MEDICAL SUPPLY [facility]) GLUCOSE BLOOD TEST STRIPS (ASCENSIA AUTODISC ,ONE TOUCH ULTRA TEST ) STRIP One glucose script per blood sugar check twice daily mirtazapine (REMERON) 15 mg tablet 22.5 mg. mometasone (NASONEX) 50 mcg/actuation nasal spray 2 Sprays by Nasal route daily for 30 days. Replaces flonase multivitamin (MULTIPLE VITAMINS ORAL) Take 1 Capsule by mouth daily. norethindrone (RISSA,AYDE,MONTSERRAT,MICRONOR) 0.35 mg tablet Take 1 tablet (0.35 mg total) by mouth1 (one) time each day. 84 tablet 1 ondansetron ODT (ZOFRAN-ODT) 4 mg disintegrating tablet DISSOLVE 1 TABLET BY MOUTH ON THE TOP OF THE TONGUE EVERY 8 HOURS IF NEEDED FOR NAUSEA OR VOMITING FOR UP TO 7 DAYS 20 tablet 2 OneTouch Ultra Test test strip USE ONE GLUCOSE STRIP TO CHECK BLOOD SUGAR TWICE DAILY pyridoxine (VITAMIN B-6) 25 mg tablet TAKE 1 TABLET BY MOUTH FOUR TIMES DAILY BEFORE MEALS AND AT NIGHT risperiDONE (RisperDAL) 0.5 mg tablet Take 1 tablet (0.5 mg total) by mouth 2 (two) times a day. [DISCONTINUED] certolizumab pegol (Cimzia) 400 mg/2 mL (200 mg/mL x 2) syringe kit Inject into the skin. [DISCONTINUED] cetirizine (ZyrTEC) 10 mg tablet Take 1 tablet (10 mg total) by mouth daily. [DISCONTINUED] ferrous sulfate 325 mg (65 mg iron) EC tablet Take 1 tablet (325 mg total) by mouth 1 (one) time each day. [DISCONTINUED] metoprolol succinate (Kapspargo Sprinkle) 25 mg capsule,sprinkle,ER 24hr Take 25 mg by mouth daily. [DISCONTINUED] ondansetron ODT (ZOFRAN-ODT) 4 mg disintegrating tablet Dissolve 1 tablet (4 mg total) on top of the tongue every 8 (eight) hours if needed for nausea or vomiting for up to 7 days. 20 tablet 2 [DISCONTINUED] vitamin A 3,000 mcg (10,000 unit) tablet Take 1 Tablet by mouth daily. [DISCONTINUED] WHEAT DEXTRIN ORAL Take 4 g by mouth daily. No current facility-administered medications on file prior to visit. Allergies Allergen Reactions Infliximab Headache Other reaction(s): Headaches, SEVERE HEADACHE (D)-Limonene Flavor seasonal Sodium Chloride Other Seasonal - Other Reaction(s): Runny Nose/Rhinitis Along with some wheezing and dry cough- takes zyrtec. Objective: Vitals: 07/26/24 1051 BP: 115/74 Pulse: 78 Resp: 16 Weight: 92.7 kg (204 lb 6.4 oz) Height: 1.6 m (63 ) Gen: Well-appearing on today's exam NEUROLOGIC: speech fluent, grossly intact PSYCH: Mood and affect appropriate. Alert and oriented x 3. Assessment/Plan: 33 y.o. with: Breakthrough bleeding on control pills I counseled that irregular bleeding, and even oligomenorrhea or amenorrhea is not unusual on this pill, not dangerous. She can continue on it if she is not going to be worried. She agreed. Paratubal cyst Explained this is small, simple, and does not cause symptoms or require follow up. No orders of the defined types were placed in this encounter. No follow-ups on file. Shannon He MD documented in this encounter Plan of Treatment Upcoming Encounters Date Type Department Care Team (Late st Contact Info) Description 09/07/2024 9:40 AM EST Office Visit Gastroenterology - 299 [facility] [address] [phone] Aristeo Little [place] [address] [address] 09/11/2024 8:30 AM EST Nutrition Bariatric Surgery - [place] [address] [phone] [address] 10/16/2024 8:30 AM EDT Office Visit Bariatric Surgery - [place] [address] [phone] Dayana Frost MD 175 [facility] 120 [place] [phone] 11/29/2024 1:30 PM EDT Office Visit Obstetrics and Gynecology - [place] [address] [place] [address] Jewels Rogers, [facility] [address] [place], [place] documented as of this encounter Visit Diagnoses Diagnosis Breakthrough bleeding on control pills- Primary Paratubal cyst documented in this encounter Discontinued Medications Medication Sig Discontinue Reason Start Date End Da te ferrous sulfate 325 mg (65 mg iron) EC tablet Take 1 tablet (325 mg total) by mouth 1 (one) time each day. 01/19/2024 07/26/2024 vitamin A 3,000 mcg (10,000 unit) tablet Take 1 Tablet by mouth daily. 10/05/2023 07/26/2024 WHEAT DEXTRIN ORAL Take 4 g by mouth daily. 07/22/2023 07/26/2024 metoprolol succinate (Kapspargo Sprinkle) 25 mg capsule,sprinkle,ER 24hr Take 25 mg by mouth daily. 07/26/2024 certolizumab pegol (Cimzia) 400 mg/2 mL (200 mg/mL x 2) syringe kit Inject into the skin. 10/04/2021 07/26/2024 cetirizine (ZyrTEC) 10 mg tablet Take 1 tablet (10 mg total) by mouth daily. 07/26/2024 documented as of this encounter Care Teams Power Tong Operator Relationship Specialty Start Date End Date Cassius Alvarez MD [facility] [place] [address] PCP - General Internal Medicine 06/07/24 documented as of this encounter
--- OUTSIDE RECORDS SUMMARY | 2024-08-24 15:34 | XMS_ITS ---
Author Organization [facility] Address [address] [place] [address] Care Team Providers Care General Superintendent Name Role Phone MERLOS, AMOS Unavailable [phone] Encounters Encounter Location Date Provider Diagnosis [facility] [address] [place] [address] 05/12/2023 AMOS MERLOS PLAN OF TREATMENT No Information Progress Notes * SHABBIR ARENASOB: 3 (32 yo F)Acc No.[id number]:05/12/2023 Patient:??DAINA ARENAS :1990?Age:32 Y?Sex:Fe male Address:[address] [place] [address] * true * Date:??
--- OUTSIDE RECORDS SUMMARY | 2024-08-24 15:34 | XMS_ITS | Encounter Summary ---
Author Organization [facility] Address [address] [place] [address] Care Team Providers Care Chief Radiation Therapist Name Role Phone Cassius Alvarez MD Primary Care Provider [phone] Reason for Visit * Imaging (Routine) - Closed Specialty Diagnoses / Procedures Referred By Contac t Referred To Contact Radiology Diagnoses S/P bariatric surgery Procedures NM Hepatobiliary System Imaging NM Hepatobiliary System Imaging W Dayana Contreras MD [address] [address] Phone: tel: fax: [facility] CT Scan [address] [place] [address] Phone: tel: Referral ID Status Reason Start Date Expiration Date Visits Re quested Visits Authorized [id number] Closed 07/13/2024 07/13/2025 1 1 Encounter Details Date Type Department Care Team (Latest Contact Info) Description 08/01/2024 7:52 AM EST - 08/01/2024 11:59 PM EST Hospital Encounter [facility] Nuclear Medicine [address] [place] [address] S/P bariatric surgery Discharge Disposition: Home or Self Care Social History Tobacco Use Types Packs/Day Years [...] Jessica Cerrato RN documented in this encounter Medications at Time of Discharge acarbose (Precose) 25 mg tablet Take 1 tablet (25 mg total) by mouth 3 (three) times a day with meals. 90 tablet 11 5 07/25/19 26 acetaminophen (TYLENOL) 500 mg tablet 4 albuterol 2.5 mg /3 mL (0.083 %) nebulizer solution Take 1 Vial by nebulization every 4 hours as needed. albuterol HFA (PROAIR HFA ; PROVENTIL HFA ; VENTOLIN HFA) 90 mcg/actuation inhaler Inhale 2 Puffs into the lungs every 4 hours as needed for Cough or Wheezing for up to 30 days. 2 ARIPiprazole (ABILIFY) 5 mg tablet Take 1 tablet (5 mg total) by mouth. at bedtime. blood-glucose meter kit 1 Kit by Does not apply route daily. 4 buPROPion XL (WELLBUTRIN XL) 150 mg 24 hr tablet 4 clonazePAM (KlonoPIN) 0.5 mg tablet Take 1 tablet (0.5 mg total) by mouth 1 (one) time each day. 4 escitalopram (LEXAPRO) 20 mg tablet Take 1 tablet (20 mg total) by mouth 1 (one) time each day. esomeprazole (NexIUM) [address] capsule Take 1 capsule (40 mg total) by mouth 1 (one) time each day before breakfast. Do not open capsule. 90 each 4 09/18/19 25 fluticasone furoate-vilanteroL (Breo Ellipta) 100-25 mcg/dose inhaler INHALE 1 PUFF INTO THE LUNGS DAILY hydrOXYzine HCL (ATARAX) 25 mg tablet TAKE 2 TABLETS BY MOUTH AT BEDTIME. MAY TAKE ADDITIONAL 25 MG IF AWAKE IN 1 HOUR 1 medical supply, miscellaneous (MISCELLANEOUS MEDICAL SUPPLY [facility]) GLUCOSE BLOOD TEST STRIPS (ASCENSIA AUTODISC ,ONE TOUCH ULTRA TEST ) STRIP One glucose script per blood sugar check twice daily 4 05/08/20 25 mirtazapine (REMERON) 15 mg tablet 22.5 mg. 1 mometasone (NASONEX) 50 mcg/actuation nasal spray 2 Sprays by Nasal route daily for 30 days. Replaces flonase 8 multivitamin (MULTIPLE VITAMINS ORAL) Take 1 Capsule by mouth daily. 4 norethindrone (RISSA,AYDE,RUTHANN ER,MICRONOR) 0.35 mg tablet Take 1 tablet (0.35 mg total) by mouth 1 (one) time each day. 84 tablet 1 5 ondansetron ODT (ZOFRAN-ODT) 4 mg disintegrating tablet DISSOLVE 1 TABLET BY MOUTH ON THE TOP OF THE TONGUE EVERY 8 HOURS IF NEEDED FOR NAUSEA OR VOMITING FOR UP TO 7 DAYS 20 tablet 2 5 OneTouch Ultra Test test strip USE ONE GLUCOSE STRIP TO CHECK BLOOD SUGAR TWICE DAILY 4 pyridoxine (VITAMIN B-6) 25 mg tablet TAKE 1 TABLET BY MOUTH FOUR TIMES DAILY BEFORE MEALS AND AT NIGHT 2 risperiDONE (RisperDAL) 0.5 mg tablet Take 1 tablet (0.5 mg total) by mouth 2 (two) times a day. documented as of this encounter Discharge Disposition Disposition Code Departure Means Destination Home or Self Care documented in this encounter Plan of Treatment Upcoming Encounters Date Type Department Care Team (Late st Contact Info) Description 09/07/2024 9:40 AM EST Office Visit Gastroenterology - [address] [place] [phone] Aristeo Little PA [address] [address] 09/11/2024 8:30 AM EST Nutrition Bariatric Surgery - [place] [address] [phone] [address] [address] 10/16/2024 8:30 AM EDT Office Visit Bariatric Surgery [address] [phone] Dayana Frost MD [address] [phone] 11/29/2024 1:30 PM EDT Office Visit Obstetrics and Gynecology [address] [phone] Jewels Rogers CN [address] [place] [phone] documented as of this encounter Procedures Procedure Name Priority Date/Time Associated Diagnosis Comments NM HEPATOBILIARY SYSTEM IMAGING Routine 08/01/2024 10:23 AM EST S/P bariatric surgery documented in this encounter Results * NM Hepatobiliary System Imaging (08/01/2024 10:23 AM EST) Anatomical Region Laterality Modality Body Nuclear Medicine 08/06/2024 9:52 AM EST Impressions 08/06/2024 10:00 AM EST Patent CBD. Gallbladder is not visualized consistent with previous cholecystectomy as seen on CT abdomen exam 06/17/2024. There is no biliary reflux seen into the remnant or the normal stomach. Patient is status post gastric sleeve surgery -------- FINAL REPORT -------- Dictated By: Galindo Varghese Dictated Date: 08/06/2024 09:52 ET Assigned Physician: Galindo Varghese Reviewed and Electronically Signed By: Galindo Varghese Signed Date: 08/06/2024 10:00 ET Workstation ID: [id number] Transcribed By: Self Edit Transcribed Date: 08/06/2024 09:52 ET Narrative 08/06/2024 10:00 AM EST EXAMINATION: Hepatobiliary scan. Clinical indication: History of gastric bypass. Now presents with pain nausea question biliary reflux into the gastric remnant. COMPARISON: CT abdomen pelvis 06/17/2024. Normal hepatic uptake. TECHNIQUE:: Following intravenous and demonstration of 4.7 mCi of technetium 99m Choletec, imaging of the right upper quadrant was obtained up to 60 minutes. FINDINGS: There is normal hepatic uptake without any focal defects. There is visualization of common bile duct by 8 to 10 minutes. Gallbladder is not visualized up to 60 minutes. Small bowel is visualized by 12 minutes. No enterogastric reflux is seen on these images. Procedure Note Galindo Varghese MD - 08/06/2024 EXAMINATION: Hepatobiliary scan. Clinical indication: History of gastric bypass. Now presents with painnausea question biliary reflux into the gastric remnant. COMPARISON: CT abdomen pelvis 06/17/2024. Normal hepatic uptake. TECHNIQUE:: Following intravenous and demonstration of 4.7 mCi oftechnetium 99m Choletec, imaging of the right upper quadrant was obtainedup to 60 minutes. FINDINGS: There is normal hepatic uptake without any focal defects. Thereis visualization of common bile duct by 8 to 10 minutes. Gallbladder isnot visualized up to 60 minutes. Small bowel is visualized by 12 minutes. No enterogastric reflux is seen on these images. IMPRESSION: Patent CBD. Gallbladder is not visualized consistent with previous cholecystectomy asseen on CT abdomen exam 06/17/2024. There is no biliary reflux seen into the remnant or the normal stomach.Patient is status post gastric sleeve surgery -------- FINAL REPORT -------- Dictated By: Galindo Varghese Dictated Date: 08/06/2024 09:52 ET Assigned Physician: Galindo Varghese Reviewed and Electronically Signed By: Galindo Varghese Signed Date: 08/06/2024 10:00 ET Workstation ID: [id number] Transcribed By: Self Edit Transcribed Date: 08/06/2024 09:52 ET [facility] Frost MD [facility] Final Result documented in this encounter Visit Diagnoses Diagnosis S/P bariatric surgery documented in this encounter Administered Medications Inactive Administered Medications - up to 3 most recent administrations Medication Order MAR Action Action Date Dose Rate Site TC-99M mebrofenin radio-isotope injection 4.7 millicurie 4.7 millicurie, intravenous, Once in imaging, Starting on Wed08/01/24 at 0841, For 1 dose Given 08/01/2024 8:42 AM EST 4.7 millicuries documented in this encounter Orders Medications Ordered That Joss ht Not Have Been Administered Count Last Ordered Date First Ordered Date TC-99M mebrofenin radio-isot ope injection 4.7 millicurie 1 08/01/2024 documented in this encounter Care Teams Chief Radiation Therapist Relationship Specialty Start Date End Date Cassius Alvarez MD [address] [place] [address] PCP - General Internal Medicine 06/07/24 documented as of this encounter
--- OUTSIDE RECORDS SUMMARY | 2024-08-24 15:34 | XMS_ITS | Encounter Summary ---
Author Organization [facility] [place] [address] Care Team Providers Care Early Childhood Teacher Assistant Name Role Phone Cassius Alvarez MD Primary Care Provider [phone] Encounter Details Date Type Department Care Team (Late st Contact Info) Description 05/08/2024 8:31 AM EDT Hospital Encounter TH HISTORIC ENCOUNTERS EASTERN CONVERSION ONLY Chelsea Singh MD [address] [place] [address] Social History Tobacco Use Types Packs/Day Years [...] 11:49 AM EDT documented in this encounter Progress Notes * Chelsea Singh MD - 05/08/2024 9:15 AM EDT CHIEF COMPLAINT: Follow-up IDENTIFIER:Ricardo Valdez is a 33 y.o. female. HPI: [...] single, she had 1 child who is [id number] FAMILY HISTORY: Noncontributory Current Outpatient Medications: ??? [...] AM EST Office Visit Gastroenterology - 299 [facility] 299 [facility] [address] [place] [address] Aristeo Little PA 299 [facility] [address] [place] [address] 09/11/2024 8:30 AM EST Nutrition Bariatric Surgery - [place] 175 [facility] [address] [place] [phone] [address]elin [address] [address] 10/16/2024 8:30 AM EDT Office Visit Bariatric Surgery [facility] 175 [facility] 120 [place] [phone] Dayana Frost MD 175 [facility] 120 [place] [phone] 11/29/2024 1:30 PM EDT Office Visit Obstetrics and Gynecology - [address] [phone] Jewels Rogers CNM 444 [place], [place] [phone] documented as of this encounter Procedures Procedure Name Priority Date/Time Associated Diagnosis Comments ..MISCELLANEOUS REFERENCE LAB TEST 05/08/2024 documented in this encounter Results * Miscellaneous reference lab test (05/08/2024) us Provider Onbase LAB BLOOD ORDERABLES Final Re sult documented in this encounter Visit Diagnoses Not on filedocumented in this encounter Care Teams Early Childhood Teacher Assistant Relationship Specialty Start Date End Date Cassius Alvarez MD PCP - General Internal Medicine 04/03/21 06/06/24 documented as of this encounter
--- OUTSIDE RECORDS SUMMARY | 2024-08-24 15:34 | XMS_ITS | Clinical Summary ---
Author Organization [facility] Address [address] [place] [address] Phone Care Team Providers Care Reconstructive Surgeon Name Role Phone Cassius Alvarez MD Primary Care Provider [phone] Allergies Active Allergy Reactions Criticality Noted Date Comments (D)-Limonene Flavor 06/15/2024 seasonal Infliximab Headache High 04/16/2021 Other reaction(s): Headaches, SEVERE HEADACHE Other Low 01/19/2022 Seasonal - Other Reaction(s): Runny Nose/Rhinitis Along with some wheezing and dry cough- takes zyrtec. Sodium Chloride 03/25/2023 Medications medical supply, miscellaneous (MISCELLANEOUS MEDICAL SUPPLY MISC) GLUCOSE BLOOD TEST STRIPS (ASCENSIA AUTODISC ,ONE TOUCH ULTRA TEST ) STRIP One glucose script per blood sugar check twice daily 2024 Active blood-glucose meter kit 1 Kit by Does not apply route daily. Active multivitamin (MULTIPLE VITAMINS ORAL) Take 1 Capsule by mouth daily. Active escitalopram (LEXAPRO) 20 mg tablet Take 1 tablet (20 mg total) by mouth 1 (one) time each day. Active risperiDONE (RisperDAL) 0.5 mg tablet Take 1 tablet (0.5 mg total) by mouth 2 (two) times a day. Active pyridoxine (VITAMIN B-6) 25 mg tablet TAKE 1 TABLET BY MOUTH FOUR TIMES DAILY BEFORE MEALS AND AT NIGHT Active albuterol HFA (PROAIR HFA ; PROVENTIL HFA ; VENTOLIN HFA) 90 mcg/actuation inhaler Inhale 2 Puffs into the lungs every 4 hours as needed for Cough or Wheezing for up to 30 days. Active mirtazapine (REMERON) 15 mg tablet 22.5 mg. Active hydrOXYzine HCL (ATARAX) 25 mg tablet TAKE 2 TABLETS BY MOUTH AT BEDTIME. MAY TAKE ADDITIONAL 25 MG IF AWAKE IN 1 HOUR Active mometasone (NASONEX) 50 mcg/actuation nasal spray 2 Sprays by Nasal route daily for 30 days. Replaces flonase Active albuterol 2.5 mg /3 mL (0.083 %) nebulizer solution Take 1 Vial by nebulization every 4 hours as needed. Active fluticasone furoate-vilantero L (Breo Ellipta) 100-25 mcg/dose inhaler INHALE 1 PUFF INTO THE LUNGS DAILY Active acetaminophen (TYLENOL) 500 mg tablet Active ARIPiprazole (ABILIFY) 5 mg tablet Take 1 tablet (5 mg total) by mouth. at bedtime. Active OneTouch Ultra Test test strip USE ONE GLUCOSE STRIP TO CHECK BLOOD SUGAR TWICE DAILY Active buPROPion XL (WELLBUTRIN XL) 150 mg 24 hr tablet Active esomeprazole (NexIUM) [address] capsule Take 1 capsule (40 mg total) by mouth 1 (one) time each day before breakfast. Do not open capsule. 90 each 2024 Active clonazePAM (KlonoPIN) 0.5 mg tablet Take 1 tablet (0.5 mg total) by mouth 1 (one) time each day. Active norethindrone (RISSA,AYDE,HEA THER,MICRONOR) 0.35 mg tablet Take 1 tablet (0.35 mg total) by mouth 1 (one) time each day. 84 tablet 1 Active ondansetron ODT (ZOFRAN-ODT) 4 mg disintegrating tablet DISSOLVE 1 TABLET BY MOUTH ON THE TOP OF THE TONGUE EVERY 8 HOURS IF NEEDED FOR NAUSEA OR VOMITING FOR UP TO 7 DAYS 20 tablet 2 Active acarbose (Precose) 25 mg tablet Take 1 tablet (25 mg total) by mouth 3 (three) times a day with meals. 90 tablet 11 025 2025 Active ferrous sulfate 325 mg (65 mg iron) EC tablet Take 1 tablet (325 mg total) by mouth 1 (one) time each day. 024 2024 Discontinued vitamin A 3,000 mcg (10,000 unit) tablet Take 1 Tablet by mouth daily. 024 2024 Discontinued WHEAT DEXTRIN ORAL Take 4 g by mouth daily. 024 2024 Discontinued metoprolol succinate (Kapspargo Sprinkle) 25 mg capsule,sprinkle, ER 24hr Take 25 mg by mouth daily. 2024 Discontinued certolizumab pegol (Cimzia) 400 mg/2 mL (200 mg/mL x 2) syringe kit Inject into the skin. 022 2024 Discontinued cetirizine (ZyrTEC) 10 mg tablet Take 1 tablet (10 mg total) by mouth daily. 2024 Discontinued fluconazole (DIFLUCAN) 150 mg tablet Take 1 tablet (150 mg total) by mouth 1 (one) time for 1 dose. 1 tablet 025 2024 Active Problems Problem Noted Date Diagnosed Date Breakthrough bleeding on control pills Assessment & Plan (07/26/2024 11:24 AM EST): I counseled that irregular bleeding, and even oligomenorrhea or amenorrhea is not unusual on this pill, not dangerous. She can continue on it if she is not going to be worried. She agreed. Paratubal cyst 07/26/2024 Assessment & Plan (07/26/2024 11:25 AM EST): Explained this is small, simple, and does not cause symptoms or require follow up. Iron deficiency anemia due to chronic blood loss 03/21/2024 Dysmenorrhea 08/19/2023 Overview (04/26/2024): Last Assessment & Plan: As noted for menorrhagia. Ibuprofen or Tylenol prn. Positive GBS test 07/31/2022 Overview (04/26/2024): Will treat in labor POTS (postural orthostatic tachycardia syndrome) 07/07/2022 Overview (04/26/2024): Cardiology c/s 06/02/22 - ECHO WNL, recommend hyrdration and compression stockings, f/u in Spring after delivery Elevated blood pressure reading 06/17/2022 Overview (04/26/2024): 06/17/2022 seen in [facility] ED and [facility] triage for SOB, neb treatment administered. In ED CTA, EKG, doppler studies, and resp panel negative. BP elevated in ED 143/96, 123/97 . PEC panel negative 11.1>11.9/36.8<218, AST 14, ALT 14, BUN 3, Cr 0.53, urine pr cr ratio Last Assessment & Plan: BP elevated in ER, PIH labs WNL. BP normal today. Will continue to monitor. Bladder spasms 04/22/2022 Overview (04/26/2024): Went to [facility] on 03/25- discharged stable, advised to increase hydration Maternal varicella, non-immune 01/27/2022 Overview (04/26/2024): Vaccinate PP Pelvic pain 10/27/2021 Overview (04/26/2024): Last Assessment & Plan: I discussed with the patient that the urinary symptoms she is experiencing may be due to infection versus bulk symptoms from the known fibroid uterus versus bladder pathology. It is reassuring that her postvoid residual was small - 60 cc. I have sent her urine for culture to rule out infection and will treat as indicated, however UA performed from the clean-catch she provided was positive only for blood, which may have been contaminated as she is starting her menses. I have provided a prescription for oxybutynin 5 mg ER daily to decrease urinary urgency until the time of her scheduled myomectomy. I discussed the side effects of this medication. I did discuss that if her symptoms do not resolve following myomectomy she will need to be referred to urology for further evaluation. The patient and her mother are in agreement with this plan. All questions answered. 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 Aura increases risk of stroke with use of E2. She was encouraged to consider Mirena and will consider it and return. Will continue POP for now. DDD (degenerative disc disease), lumbosacral Adnexal cyst 11/25/2018 Overview (04/26/2024): 11/04/18 Presented to [facility] ED for abdominal pain. CT scan showed 2.7 right adnexal cyst. (records sent to scanning) Allergic rhinitis 08/25/2017 Dizziness of unknown etiology 08/25/2017 Overview (04/26/2024): Encouraged to follow up with PCP, reviewed warning signs and when to seek emergency care 06/05- pt seen by pcp and [facility], she had a full work up and states told had POTS syndrome. Reviewed increase hydration and slow position changes- will follow up with [facility] post . Awaiting results and visit notes for review Iron deficiency anemia 12/01/2016 Overview (04/26/2024): Has had difficulty tolerating oral iron supplementation Heme 01/25 - oral iron during the week on menses; f/u prn Last Assessment & Plan: Continue oral iron Vitamin D deficiency 12/01/2016 Leukocytosis 08/15/2015 Overview (04/26/2024): Dr. Rodriges - 08/27 - likely reactive, repeat CBC with diff in a month, no further workup needed at this time Has persisted over years, acutely increased to 17 04/2020 GRAY (obstructive sleep apnea) 10/08/2014 Overview (04/26/2024): 10/01/14 - 3 day EEG without epileptiform activity or persistent foca asymmetries Sleep study consistent with confusional arousals without evidence of sleep disordered breathing Dr. Contreras - 06/19/15-trial of father's auto CPAP, if beneficial would recommend repeat sleep study; follow-up in a few months Sleep study 08/2711/06/15 - improved with CPAP, increase auto CPAP to 10-20; recheck her ferritin; follow-up in a few months [facility] Polysomnogram: Date 04/05/2019; Wt 247#; BMI 42; SE 79%; SM 87%; REM 20%; RDI 6 (AHI 5), REM (RDI 19 - AHI 18), Central apneas 1; Obstructive apneas 0; Mixed apneas 0; hypopneas 32; RERAs 2; average oxygen saturation 94% (lowest 84% - without saturations <88% for 5% or more of study); PLMs 6. - Obstructive Sleep Apnea - mild; mostly hypopneas; without sleep related hypoventilation by 2019 polysomnogram. Ankylosing spondylitis 03/31/2013 Overview (04/26/2024): Has been seen at [facility], rheumatology Dr. Valero as well as Dr. Murphy, Dr. Finch, now seeing Dr Brady at [facility]; also Dr Sanders 02/05/2022 under the care of [facility] in [place]. CBC, ESR, CRP, creatinine, AST and ALT ordered at that visit. Plan is to continue with Cimzia 400 mg SC monthly. OCD (obsessive compulsive disorder) 11/30/2012 Depression 10/21/2012 Overview (04/26/2024): History SI- IP Admits Nephrolithiasis 01/12/2012 Overview (04/26/2024): Noted December 2011 Last Assessment & Plan: [facility] 12/21 2 mm right ureteric stone ADHD (attention deficit hyperactivity disorder) 07/24/2011 Anxiety 07/24/2011 Asthma 07/24/2011 Migraine with aura 07/24/2011 Overview (04/26/2024): Dr Flowers Comments Yes Encounters Date Type Department Care Team Description 08/21/2024 Lab Requisition [facility] - Main Lab [address] [facility] [place] [place] [address] Donald Wall PA Hydronephrosis with renal and ureteral calculous obstruction 08/14/2024 8:30 AM EST Office Visit Bariatric Surgery [address] [phone] Dayana Frost MD S/P bariatric surgery (Primary Dx); Hx of hypoglycemia; Dumping syndrome; Obesity, Class II, BMI 35-39.9 08/01/2024 7:52 AM EST - 08/01/2024 11:59 PM EST Hospital Encounter [facility] Nuclear Medicine [address] [place] [phone] S/P bariatric surgery Discharge Disposition: Home or Self Care 07/26/2024 10:30 AM EST Office Visit Obstetrics and Gynecology - [address] [phone] Shannon He MD Breakthrough bleeding on control pills (Primary Dx); Paratubal cyst 07/19/2024 Telephone Bariatric Surgery [address] [phone] Danny Thomas MD 07/19/2024 Telephone Bariatric Surgery [address] [phone] Dayana Frost MD 07/17/2024 Telephone Obstetrics and Gynecology - [address] [phone] Shannon He MD Request For Order(s) 07/16/2024 Telephone Gastroenterology - [address] [phone] Anny Vogel PA 07/13/2024 8:30 AM EST Office Visit Bariatric Surgery [address] [phone] Dayana Frost MD S/P bariatric surgery (Primary Dx); Class 2 severe obesity with serious comorbidity and body mass index (BMI) of 35.0 to 35.9 in adult, unspecified obesity type (CMS/HCC); Nausea; Gastroesophageal reflux disease, unspecified whether esophagitis present 06/19/2024 Telephone Obstetrics and Gynecology [address] [phone] Shannon He MD 06/17/2024 12:12 AM EST - 06/17/2024 5:46 AM EST Emergency [facility] Emergency [address] [place] [phone] Flank pain (Primary Dx); Left lower quadrant abdominal pain; Cysts of both ovaries Discharge Disposition: Home or Self Care 06/16/2024 Telephone Bariatric Surgery [address] [phone] Dayana Frost MD Emerency room visit (Patient is not feeling well) 06/15/2024 1:30 PM EST Office Visit Bariatric Surgery [address] [phone] Dayana Frost MD Kidney stone (Primary Dx); Hx of iron deficiency anemia; S/P bariatric surgery; Hx of hypoglycemia; Dumping syndrome 06/15/2024 Telephone Bariatric Surgery - [address] [phone] Dayana Frost MD from Last 3 Months Immunizations Name Administration Dates Next Due DTP 04/25/1993,02/23/1993,1992 [id number] (Pentacel) 2mo to less than 5yo 02/23/1994,04/25/1993,02/23/1993,12/24 Diptheria & Tetanus, 6wks to less than 7yo 10/17/1997,04/25/1994 HPV, Quadrivalent 08/08/2007,04/01/2007,01/29/20 07 Hepatitis B Pediatric (Enger ix B; Recombivax HB) to less than 20 yo 04/25/1993,1992,1992 Influenza Quadravalent, MDCK , 0.5ml, preservative free (Flucelvax) 6mo and older 04/17/2020,03/16/2019,03/18/2018 Influenza Quadravalent, MDCK , 0.5ml, with preservative (Flucelvax) 6mo and older 06/18/2017 Influenza trivalent, 0.5mL, preservative free (Fluarix; FluLaval; Fluzone) ages 6mo and older (Afluria) 3 years and older 04/27/2016,04/17/2015,04/30/2014,03/15,06/08/2011,05/14/2010,05/14/2009 ,04/19/2009 Influenza, Unspecified 05/12/2021 MMR, measles mumps and rubel la Live (Priorix; M-M-R II) 12mo and older 10/17/1997,10/24/1993 Meningococcal MCV4P 01/28/2007 OPV 10/17/1997, 4,04/25/1993,12/24 Pfizer (ages 12 & older) ISABELLE S-CoV-2 COVID-19, mRNA, LNP-S, rusty-sucrose, preservative free 10/09/2021 Pfizer SARS-CoV-2 COVID-19, mRNA, LNP-S, preservative free 05/17/2021,05/12/2021,2020,09/24 Td Tetanus diptheria (Tdvax) 7yo and older 11/26/2020,12/20/2003 Tdap Tetanus diptheria acell ular pertussis (Boostrix; Adacel) 7yo and older 06/05/2022,04/23/2009 Varicella live (Varivax) 12m o and older 04/23/2009,03/09/1995 Family History Medical History Relation Name Comments No Known Problems Father Cancer Father's Sister Breast' Cancer Maternal Grandfather prostat e Stroke Maternal Grandfather No Known Problems Mother Stroke Paternal Grandmother Relation Name Status Comments Father Alive Father's Sister Maternal Grandfather Mother Alive Paternal Grandmother Social History Tobacco Use Types [...] Orientation Straight 06/19/2024 12 :07 PM EST Obstetrics History Para Term AB IAB SAB Ectopic Multiple Livin g Live Births 2 1 1 1 1 Date Outcome GA Total Labor Labor/2nd/3rd Weight Sex Type Anes PTL Minerva A1 A5 Name Clin 2022 Term 37w 6d M Vag-S pont Living Current Last Filed Vital Signs Vital Sign Reading Time Taken Comments Blood Pressure 115/74 08/14/2024 8:26 AM EST Pulse 93 08/14/2024 8:26 AM EST Temperature 36.7 ??C (98.1 ??F) 08/14/2024 8:26 AM ES T Respiratory Rate 16 07/26/2024 10:51 AM EST Oxygen Saturation 99% 06/17/2024 5:45 AM EST Inhaled Oxygen Concentration - - Weight 93 kg (205 lb) 08/14/2024 8:26 AM EST Height 160 cm (5' 3 ) 08/14/2024 8:26 AM EST Body Mass Index 36.31 08/14/2024 8:26 AM EST Plan of Treatment Upcoming Encounters Date Type Department Care Team (Late st Contact Info) Description 09/07/2024 9:40 AM EST Office Visit Gastroenterology - [address] [place] [phone] Aristeo Little PA [address] [facility] [address] [place] [address] 09/11/2024 8:30 AM EST Nutrition Bariatric Surgery - [place] [address] [facility] [address] [place] [phone] [facility] [address] [place], [place] [phone] 10/16/2024 8:30 AM EDT Office Visit Bariatric Surgery - [place] [address] [facility] [address] [place] [phone] Dayana Frost MD [address] [facility] [address] [place] [phone] 11/29/2024 1:30 PM EDT Office Visit Obstetrics and Gynecology - [address] [phone] Jewels Rogers, [facility] [address] [place] [address] Health Maintenance Due Date Last Done Comments Pneumococcal Vaccine: Pediatrics (0 to 5 Years) and At-Risk Patients (6 to 64 Years) (1 of 2 - PCV) 10/16/2011 Depression Screening 06/20/2022 Medicare Annual Wellness Visit 06/20/2022 Social Influencers of Health Screening 06/20/2022 COVID-19 Vaccine ( season) 2024 05/28/2023, 04/18/2022, 10/09/2021, Additional history exists Cervical Cancer Screening: HPV 09/29/2027 09/28/2022 Cholesterol Screening (Lipid Panel) 05/21/2028 05/21/2023 DTaP,Tdap,and Td Vaccines (10 - Td or Tdap) 06/05/2032 06/05/2022, 11/26/2020, 04/23/2009, Additional history exists Hepatitis B Vaccines Completed 04/25/1993, 1992, 1992 HIB Vaccines Completed 02/23/1994, 02/09, 04/25/1993, Additional history exists IPV Vaccines Completed 10/17/1997, 04/11, 02/23/1994, Additional history exists Meningococcal ACWY Vaccine Aged Out 01/28/2007 N o longer eligible based on patient's age to complete this topic HPV Vaccines Completed 08/08/2007, 03/13, 01/28/2007 HIV Screening Completed 01/27/2022 Hepatitis C Screening Completed 01/27/2022 Influenza Vaccine Completed 05/24/2024, , 04/18/2022, Additional history exists Hepatitis A Vaccines Aged Out No long er eligible based on patient's age to complete this topic Meningococcal B Vacine Aged Out No lo nger eligible based on patient's age to complete this topic RSV Immunization Patients Under 20 months Aged Out No longer eligible based on patient's age to complete this topic Procedures Procedure Name Priority Date/Time Associated Diagnosis Comments PARATHYROID HORMONE INTACT Routine 08/21/2024 10:22 AM EST Hydronephrosis with renal and ureteral calculous obstruction NM HEPATOBILIARY SYSTEM IMAGING Routine 08/01/2024 10:23 AM EST S/P bariatric surgery US PELVIS NON OB COMPLETE STAT 06/17/2024 3:[address] ABDOMEN PELVIS W CONTRAST STAT 06/17/2024 1:26 AM EST POC , URINE DIAGNOSTIC STAT 06/16/2024 6:20 PM EST [facility] URINE CULTURE TUBE STAT 06/16/2024 6:16 PM EST URINALYSIS WITH REFLEX MICROSCOPIC AND CULTURE STAT 06/16/2024 6:16 PM EST URINALYSIS WITH REFLEX MICROSCOPIC AND CULTURE STAT 06/16/2024 6:16 PM EST CULTURE URINE STAT 06/16/2024 6:16 PM EST CBC WITH AUTO DIFFERENTIAL STAT 06/16/2024 6:14 PM EST LIPASE STAT 06/16/2024 6:14 PM EST COMPREHENSIVE METABOLIC PANEL STAT 06/16/2024 6:14 PM EST CBC AND DIFFERENTIAL STAT 06/16/2024 6:14 PM EST LIPID PANEL Routine 05/21/2023 HM HPV Routine 09/28/2022 HEPATITIS C SCREENING Routine 01/27/2022 HIV SCREENING Routine 01/27/2022 from Last 3 Months or Most Recently Relevant to Health Maintenance Results * Parathyroid hormone intact (08/21/2024 10:22 AM EST) PTH 54.2 18.5 - 88.0 pcg/mL LAB CHEMISTRY METHOD 08/21/2024 2:11 PM EST [facility] Blood Venous blood specimen / Unknown 08/21/2024 10:22 AM EST 08/21/2024 1:17 PM EST us Donald LINDO LAB BLOOD ORDERABLES Final Res ult [facility] [address] [place] [address], [place] [phone] * NM Hepatobiliary System Imaging (08/01/2024 10:23 [...] Signed Date: 08/06/2024 10:00 ET Workstation ID: [id number] Transcribed By: Self Edit Transcribed Date: 08/06/2024 [...] Dictated Date: 08/06/2024 09:52 ET Assigned Physician: Halima, Galindo Reviewed and Electronically Signed By: Galindo Varghese Signed Date: 08/06/2024 10:00 ET Workstation ID: [id number] Transcribed By: Self Edit Transcribed Date: 08/06/2024 09:52 ET us Dayana Frost MD IMG NM PROCEDURES Final Result * US Pelvis Non OB Complete (06/17/2024 3:21 AM EST) Anatomical Region Laterality Modality Body, Pelvis Ultrasound 06/17/2024 4:04 AM EST Impressions 06/17/2024 4:04 AM EST No evidence of ovarian torsion. Simple appearing right paraovarian and left ovarian cysts. This document has been electronically signed by: Pop Tavarez MD on 06/17/2024 04:04:54 Narrative 06/17/2024 4:04 AM EST US pelvis transabdominal and transvaginal with Doppler Comparison: None Findings: Transabdominal scanning performed for overall anatomy. Transvaginal scanning performed for additional detail. Anteverted uterus is 7.5 cm length. Normal myometrium. Endometrium 5 mm thickness. Right ovary 2.7 x 1.8 x 1.6 cm. Right-sided paraovarian simple appearing cyst measuring 1.3 x 0.9 x 1.1 cm. Left ovary 4.2 x 3.2 x 4 cm. Left ovarian cyst measuring 3.3 x 2.5 x 3.3 cm. Normal color Doppler with arterial/venous spectral tracing of both ovaries. No free fluid. Procedure Note Pop Tavarez MD - 06/17/2024 US pelvis transabdominal and transvaginal with Doppler Comparison: None Findings: Transabdominal scanning performed for overall anatomy. Transvaginal scanning performed for additional detail. Anteverted uterus is 7.5 cm length. Normal myometrium. Endometrium 5 mm thickness. Right ovary 2.7 x 1.8 x 1.6 cm. Right-sided paraovarian simple appearing cyst measuring 1.3 x 0.9 x 1.1 cm. Left ovary 4.2 x 3.2 x 4 cm. Left ovarian cyst measuring 3.3 x 2.5 x 3.3 cm. Normal color Doppler with arterial/venous spectral tracing of both ovaries. No free fluid. IMPRESSION: No evidence of ovarian torsion. Simple appearing right paraovarian and left ovarian cysts. This document has been electronically signed by: Pop Tavarez MD on 06/17/2024 04:04:54 us Adilson LINDO IMG US PROCEDURES Final Result * CT Abdomen Pelvis w Contrast (06/17/2024 1:26 AM EST) Anatomical Region Laterality Modality Body Computed Tomogra phy 06/17/2024 1:42 AM EST Impressions 06/17/2024 1:42 AM EST 1. 3.5 cm left ovarian cyst. This may be further evaluated with ultrasound. 2. Bin-en-Y gastric bypass. No bowel obstruction. This document has been electronically signed by: Pop Tavarez MD on 06/17/2024 01:42:01 Narrative 06/17/2024 1:42 AM EST EXAM: CT Abdomen and Pelvis With Intravenous Contrast COMPARISON: No relevant prior studies available. FINDINGS: LUNG BASES: Unremarkable. No mass. No consolidation. ABDOMEN: LIVER: Unremarkable. No mass. GALLBLADDER AND BILE DUCTS: Postcholecystectomy. No ductal dilation. PANCREAS: Unremarkable. No mass. No ductal dilation. SPLEEN: Unremarkable. No splenomegaly. ADRENALS: Unremarkable. No mass. KIDNEYS AND URETERS: Unremarkable. No solid mass. No hydronephrosis. STOMACH AND BOWEL: Bin-en-Y gastric bypass. No bowel obstruction. No mucosal thickening. PELVIS: APPENDIX: No findings to suggest acute appendicitis. BLADDER: Unremarkable. No mass. REPRODUCTIVE: 3.5 cm left ovarian cyst. Anteverted uterus with prominent fluid-filled uterine cavity, may be physiologic. ABDOMEN and PELVIS: INTRAPERITONEAL SPACE: Unremarkable. No free air. No significant fluid collection. BONES/JOINTS: Sacralization of the L5. Nonspecific sclerotic focus in the right iliac wing. No acute fracture. No dislocation. SOFT TISSUES: Unremarkable. VASCULATURE: Unremarkable. No abdominal aortic aneurysm. LYMPH NODES: Unremarkable. No enlarged lymph nodes. Procedure Note Pop Tavarez MD - 06/17/2024 EXAM: CT Abdomen and Pelvis With Intravenous Contrast COMPARISON: No relevant prior studies available. FINDINGS: LUNG BASES: Unremarkable. No mass. No consolidation. ABDOMEN: LIVER: Unremarkable. No mass. GALLBLADDER AND BILE DUCTS: Postcholecystectomy. No ductal dilation. PANCREAS: Unremarkable. No mass. No ductal dilation. SPLEEN: Unremarkable. No splenomegaly. ADRENALS: Unremarkable. No mass. KIDNEYS AND URETERS: Unremarkable. No solid mass. No hydronephrosis. STOMACH AND BOWEL: Bin-en-Y gastric bypass. No bowel obstruction. No mucosal thickening. PELVIS: APPENDIX: No findings to suggest acute appendicitis. BLADDER: Unremarkable. No mass. REPRODUCTIVE: 3.5 cm left ovarian cyst. Anteverted uterus with prominent fluid-filled uterine cavity, may be physiologic. ABDOMEN and PELVIS: INTRAPERITONEAL SPACE: Unremarkable. No free air. No significant fluid collection. BONES/JOINTS: Sacralization of the L5. Nonspecific sclerotic focus inthe right iliac wing. No acute fracture. No dislocation. SOFT TISSUES: Unremarkable. VASCULATURE: Unremarkable. No abdominal aortic aneurysm. LYMPH NODES: Unremarkable. No enlarged lymph nodes. IMPRESSION: 1. 3.5 cm left ovarian cyst. This may be further evaluated with ultrasound. 2. Bin-en-Y gastric bypass. No bowel obstruction. This document has been electronically signed by: Pop Tavarez MD on 06/17/2024 01:42:[address] PROCEDURES Final Result * POC , urine manually resulted (06/16/2024 6:20 PM EST) Pathologist [facility] HCG, Ur POC Negative Negative POC hCG Int QC Pass? Yes Yes LOT NUMBER POC [id number] Urine Urine specimen obtained by clean catch procedure / Unknown 06/16/2024 6:20 PM EST Timothy LINDO POINT OF CARE TEST ENTER/EDIT ORDERABLES Final Result * (ABNORMAL) Urinalysis with reflex microscopic and culture (06/16/2024 6:16 PM EST) Pathologist [facility] Specific [place] Urine 1.022 1.003 - 1.030 LAB URINALYSIS - AUTOMATED METHOD 06/16/2024 7:21 PM EST [facility] pH, Urine 6.0 5.0 - 8.0 pH LAB URINALYSIS - AUTOMATED METHOD 06/16/2024 7:21 PM [facility] Leukocytes, Urine Small(A) Negative LAB URINALYSIS - AUTOMATED METHOD 06/16/2024 7:21 PM [facility] Nitrite, Urine Negative Negative LAB URINALYSIS - AUTOMATED METHOD 06/16/2024 7:21 PM [facility] Protein, Urine Negative <=Trace mg/dL LAB URINALYSIS - AUTOMATED METHOD 06/16/2024 7:21 PM [facility] Glucose, Urine Negative Negative mg/dL LAB URINALYSIS - AUTOMATED METHOD 06/16/2024 7:21 PM [facility] Ketones, Urine Trace(A) Negative mg/dL LAB URINALYSIS - AUTOMATED METHOD 06/16/2024 7:21 PM [facility] Urobilinogen , Urine 1.0 0.2 - 1.0 mg/dL LAB URINALYSIS - AUTOMATED METHOD 06/16/2024 7:21 PM [facility] Bilirubin, Urine Negative Negative LAB URINALYSIS - AUTOMATED METHOD 06/16/2024 7:21 PM [facility] Blood, Urine Negative Negative LAB URINALYSIS - AUTOMATED METHOD 06/16/2024 7:21 PM [facility] RBC, Urine 4 0 - 4 /HPF 06/16/2024 7:21 PM [facility] WBC, Urine 5(H) 0 - 4 /HPF 06/16/2024 7:21 PM [facility] Squamous Epithelial, Urine >100(H) 0 - 60 /LPF 06/16/2024 7:21 PM [facility] Non-Squamous Epithelial, Urine Rare Transitional epithelial cells. /LPF 06/16/2024 7:21 PM [facility] Bacteria, Urine Few(A) Negative /HPF 06/16/2024 7:21 PM [facility] Hyaline Casts, Urine 1.0 0 - 3 /LPF 06/16/2024 7:21 PM EST [facility] Mucus, Urine Moderate None /HPF 06/16/2024 7:21 PM [facility] Urine Urine specimen obtained by clean catch procedure / Unknown Non-blood Collection / Unknown 06/16/2024 6:16 PM EST 06/16/2024 6:39 PM EST Timothy LINDO LAB URINE ORDERABLES Final Re sult [facility] [address] [place] [address], [place] [phone] * [place] urine culture tube (06/16/2024 6:16 PM EST) Extra Tube Hold for add-ons. 06/16/2024 8:01 PM [facility] Comment:Auto resulted. Urine Urine specimen obtained by clean catch procedure / Unknown Non-blood Collection / Unknown 06/16/2024 6:16 PM EST 06/16/2024 6:39 PM EST Timothy LINDO LAB URINE ORDERABLES Final Re sult [facility] [address] [place] [address], [place] [phone] * Culture urine (06/16/2024 6:16 PM EST) Culture, Urine <10,000 CFU/mL gram negative bacilli, insignificant count, no further workup 06/17/2024 12:22 PM [facility] Urine Urine specimen obtained by clean catch procedure / Unknown Non-blood Collection / Unknown 06/16/2024 6:16 PM EST 06/16/2024 7:21 PM EST us Timothy LINDO LAB MICROBIOLOGY - GENERAL OR DERABLES Final Result [facility] [address] [place] [address], * (ABNORMAL) CBC auto differential (06/16/2024 6:14 PM EST) WBC 10.2 4.8 - 10.8 K/mcL LAB HEMETOLOGY METHOD 06/16/2024 6:49 PM EST [facility] RBC 4.60 3.80 - 4.80 M/mcL LAB HEMETOLOGY METHOD 06/16/2024 6:49 PM [facility] Hemoglobin 14.4 11.5 - 16.0 g/dL LAB HEMETOLOGY METHOD 06/16/2024 6:49 PM [facility] Hematocrit 43.6 35.0 - 47.0 % LAB HEMETOLOGY METHOD 06/16/2024 6:49 PM [facility] MCV 94.2 79.0 - 98.0 FL LAB HEMETOLOGY METHOD 06/16/2024 6:49 PM [facility] MCH 31.1 27.0 - 32.0 pcg LAB HEMETOLOGY METHOD 06/16/2024 6:49 PM [facility] MCHC 33.0 32.0 - 37.0 g/dL LAB HEMETOLOGY METHOD 06/16/2024 6:49 PM [facility] RDW 16.3(H) 11.0 - 15.0 % LAB HEMETOLOGY METHOD 06/16/2024 6:49 PM [facility] Platelets 315 130 - 400 K/mcL LAB HEMETOLOGY METHOD 06/16/2024 6:49 PM [facility] MPV 9.7 7.0 - 11.0 FL LAB HEMETOLOGY METHOD 06/16/2024 6:49 PM [facility] NRBC 0.0 <1.0 % LAB HEMETOLOGY METHOD 06/16/2024 6:49 PM [facility] NRBC Absolute 0.00 <0.10 K/mcL LAB HEMETOLOGY METHOD 06/16/2024 6:49 PM [facility] Neutrophils Relative 63.1 % LAB HEMETOLOGY METHOD 06/16/2024 6:49 PM [facility] Lymphocytes Relative 28.0 % LAB HEMETOLOGY METHOD 06/16/2024 6:49 PM [facility] Monocytes Relative 6.1 % LAB HEMETOLOGY METHOD 06/16/2024 6:49 PM [facility] Eosinophils Relative 1.9 % LAB HEMETOLOGY METHOD 06/16/2024 6:49 PM [facility] Basophils Relative 0.5 % LAB HEMETOLOGY METHOD 06/16/2024 6:49 PM [facility] Immature Granulocytes Relative 0.4 % LAB HEMETOLOGY METHOD 06/16/2024 6:49 PM [facility] Neutrophils Absolute 6.47 1.50 - 7.00 K/mcL LAB HEMETOLOGY METHOD 06/16/2024 6:49 PM [facility] Lymphocytes Absolute 2.86 1.00 - 5.00 K/mcL LAB HEMETOLOGY METHOD 06/16/2024 6:49 PM [facility] Monocytes Absolute 0.62 0.20 - 1.00 K/mcL LAB HEMETOLOGY METHOD 06/16/2024 6:49 PM [facility] Eosinophils Absolute 0.19 0.00 - 0.50 K/mcL LAB HEMETOLOGY METHOD 06/16/2024 6:49 PM [facility] Basophils Absolute 0.05 0.00 - 0.20 K/mcL LAB HEMETOLOGY METHOD 06/16/2024 6:49 PM [facility] Immature Granulocytes Absolute 0.04(H) 0.00 - 0.03 K/mcL LAB HEMETOLOGY METHOD 06/16/2024 6:49 PM EST [facility] Blood Venous blood specimen / Unknown Venipuncture / Unknown 06/16/2024 6:14 PM EST 06/16/2024 6:38 PM EST Timothy LINDO LAB BLOOD ORDERABLES Final Re sult Performing Organization Address City/[facility]/ZIP Co de Phone Number [facility] [address] [place] [address], [place] [phone] * Lipase (06/16/2024 6:14 PM EST) Lipase 19 13 - 75 unit/L LAB CHEMISTRY METHOD 06/16/2024 7:05 PM [facility] Blood Venous blood specimen / Unknown Venipuncture / Unknown 06/16/2024 6:14 PM EST 06/16/2024 6:38 PM EST Timothy LINDO LAB BLOOD ORDERABLES Final Re sult Performing Organization Address [facility]/ZIP Co de Phone Number [facility] [address] [place] [address], [place] [phone] * (ABNORMAL) Comprehensive metabolic panel (06/16/2024 6:14 PM EST) Sodium 138 133 - 145 mmol/L LAB CHEMISTRY METHOD 06/16/2024 7:06 PM [facility] Potassium 3.9 3.5 - 5.5 mmol/L LAB CHEMISTRY METHOD 06/16/2024 7:06 PM [facility] Chloride 106 96 - 110 mmol/L LAB CHEMISTRY METHOD 06/16/2024 7:06 PM [facility] CO2 25 21 - 32 mmol/L LAB CHEMISTRY METHOD 06/16/2024 7:06 PM [facility] Anion Gap 7 3 - 11 LAB CHEMISTRY METHOD 06/16/2024 7:06 PM [facility] Glucose 92 70 - 100 mg/dL LAB CHEMISTRY METHOD 06/16/2024 7:06 PM [facility] BUN 6 5 - 25 mg/dL LAB CHEMISTRY METHOD 06/16/2024 7:06 PM [facility] Creatinine 0.68 0.50 - 1.10 mg/dL LAB CHEMISTRY METHOD 06/16/2024 7:06 PM [facility] eGFR 120 >=60 mL/min/1. 73m2 LAB CHEMISTRY METHOD 06/16/2024 7:06 PM [facility] Comment:Calculation based on the??Chronic Kidney Disease Epidemiology Collaboration (CKD-EPI) equation refit??without adjustment for race. BUN/Creatinine Ratio 8.8 LAB CHEMISTRY METHOD 06/16/2024 7:06 PM [facility] Calcium 9.6 8.5 - 10.5 mg/dL LAB CHEMISTRY METHOD 06/16/2024 7:06 PM [facility] AST (SGOT) 12 10 - 42 unit/L LAB CHEMISTRY METHOD 06/16/2024 7:06 PM [facility] ALT (SGPT) 19 10 - 60 unit/L LAB CHEMISTRY METHOD 06/16/2024 7:06 PM [facility] Alkaline Phosphatase 132(H) 42 - 121 unit/L LAB CHEMISTRY METHOD 06/16/2024 7:06 PM [facility] Total Protein 7.5 6.0 - 8.0 g/dL LAB CHEMISTRY METHOD 06/16/2024 7:06 PM [facility] Albumin 3.9 3.2 - 5.0 g/dL LAB CHEMISTRY METHOD 06/16/2024 7:06 PM [facility] Total Bilirubin 0.4 0.0 - 1.4 mg/dL LAB CHEMISTRY METHOD 06/16/2024 7:06 PM EST [facility] Blood Venous blood specimen / Unknown Venipuncture / Unknown 06/16/2024 6:14 PM EST 06/16/2024 6:38 PM EST Timothy LINDO LAB BLOOD ORDERABLES Final Re sult [facility] [address] [place] [address], * (ABNORMAL) Lipid panel (05/21/2023) [facility] LDL/HDL Ratio 4 0 - 4 Triglycerides 190(A) 0 - 150 mg/dL Cholesterol 196 0 - 200 mg/dL HDL 53 >=40 mg/dL LDL Cholesterol 105(A) 0 - 100 mg/dL Blood Venous blood specimen / Unknown Historical Provider LAB BLOOD ORDERABLES Nicole l Result * Cervical Cancer Screening: HPV (09/28/2022) [facility] Cervical Cancer Screening: HPV abstracted, negative [facility] Provider HEALTH MAINTENANCE Final Result * HIV Screening (01/27/2022) [facility] HIV Screening abstracted [facility] Provider HEALTH MAINTENANCE Final Result * Hepatitis C Screening (01/27/2022) [facility] Hepatitis C Screening abstracted Historical Provider HEALTH MAINTENANCE Final Result from Last 3 Months or Most Recently Relevant to Health Maintenance Insurance [facility] MEDICARE Member Subscriber Plan / Payer (Ef fective 2022-Present) Name:Jia Valdez Relation to Subscriber:Self Name:IrmaMayelin jenningsdoug Izquierdo Payer ID:[id number] Group ID:[id number] Type:Not on file Address: [address] [place] [id number] MEDICARE Care Teams Reconstructive Surgeon Relationship Specialty Start Date End Date Cassius Alvarez MD [address] [place] [id number] PCP - General Internal Medicine 06/07/24
== END 2024-08-24 15:30 | disposition home or self-care (01) ==
LOC: HO.HOP 15:29
PROVIDERS: PCP Internal Medicine; Visit Provider Clinical Nurse Specialist Psychiatric/Mental Health
DX: F33.2 Major depressive disorder, recurrent severe without psychotic features (principal); F42.2 Mixed obsessional thoughts and acts; F43.11 Post-traumatic stress disorder, acute
CPT/HCPCS: 99214

== ENCOUNTER → 2024-08-24 15:29 | Outpatient (BNVA) | payer OTHER, SELFPAY | PROVIDERS: PCP Internal Medicine; Visit Provider Clinical Nurse Specialist Psychiatric/Mental Health ==

== ENCOUNTER 2024-09-11 11:28 | Emergency (ER) | payer OTHER, SELFPAY ==
--- NOTE | ~2024-09-11 | CT_ITS ---
CLINICAL HISTORY: R flank pain CT abdomen and pelvis without contrast Comparison: CT/SR - CT ABDOMEN PELVIS WO IV CON - 06/05/24 00:58 EST Findings: No consolidation or effusion. Postsurgical changes are present within the stomach, prior gastric bypass. The gallbladder is surgically absent. No focal hepatic lesion identified. Spleen is within normal limits. Adrenal glands are unremarkable. Kidneys are non hydronephrotic. No bowel obstruction, pneumoperitoneum, or pneumatosis. Pelvic contents unremarkable. Normal appendix. The bones are intact. IMPRESSION: No acute findings. This document has been electronically signed by: Abdirahman Good MD, PHD on 09/12/2024 04:56:43
--- NOTE | ~2024-09-11 | XR_ITS ---
EXAMINATION: XR ELBOW 3 VIEWS RIGHT HISTORY: pain, injury COMPARISON: There are no prior studies available for comparison. FINDINGS: Three views of the right elbow are submitted. Osseous mineralization is normal. There is no fracture or dislocation. The joint spaces are preserved. A soft tissue calcification adjacent to the lateral humeral epicondyle is likely ligamentous in nature. There is no joint effusion. XR/XR elbow RT min 3V IMPRESSION: Probable ligamentous calcification adjacent to the lateral epicondyle of the humerus. No evidence of fracture of the right elbow. Electronically signed by: Gutierrez Antoine MD 09/11/2024 12:57 PM EST
[2024-09-11 12:02] VITALS: BP 110/76; PULSE 87; RESP 16; TEMP 36.4; O2SAT 100; BMI 34.9
--- NOTE | 2024-09-11 12:03 | ED.GENADULT ---
HPI - General Adult General Chief complaint: Urogenital-Female Stated complaint: elbow inj? kidney stones Time Seen by Provider: 09/12/24 03:26 Source: patient Mode of arrival: ambulatory Limitations: no limitations History of Present Illness ED Provider: Dr. Reshma Echeverria HPI narrative: Patient comes to the emergency room complaining of right-sided flank pain. Patient states that she has had kidney stones in the past and feels about the same. Patient denies hematuria or dysuria. However, patient states that she is prone to having urinary tract infections. Patient denies fever or chills, complaining of mild intermittent right lower quadrant pain that radiates from the right flank. Also, patient states that a few days ago she slipped on ice and injured her right elbow. Patient denies hitting her head or losing consciousness. Otherwise patient feeling well Related Data Home Medications ?Medication ?Instructions ?Recorded ?Confirmed acetaminophen 500 mg tablet mg PO 09/24/23 08/24/24 albuterol sulfate 90 mcg/actuation inhalation 09/24/23 08/24/24 aerosol inhaler esomeprazole magnesium 40 mg 40 mg PO DAILY 09/24/23 08/24/24 capsule,delayed release ixekizumab 80 mg/mL subcutaneous mg subcut 09/24/23 08/24/24 auto-injector (Taltz Autoinjector) metoprolol succinate 25 mg 25 mg PO DAILY 09/24/23 07/24/24 tablet,extended release 24 hr norethindrone (contraceptive) 0.35 mg PO 09/24/23 08/24/24 mg tablet Previous Rx's ?Medication ?Instructions ?Recorded ondansetron 4 mg disintegrating 4 mg PO Q6H PRN nausea and 06/08/24 tablet vomiting #10 tabs methocarbamol 500 mg tablet 500 mg PO BID #60 tabs 06/13/24 nitrofurantoin 100 mg PO BID 5 days #10 caps 07/22/24 monohydrate/macrocrystals 100 mg capsule (Macrobid) cholecalciferol (vitamin D3) 25 25 mcg PO DAILY #90 caps 07/24/24 mcg (1,000 unit) capsule diclofenac sodium 1 % topical gel 4 g topical QID #100 grams 07/25/24 (Arthritis Pain (diclofenac)) aripiprazole 5 mg tablet 5 mg PO BEDTIME #90 tabs 08/24/24 clonazepam 0.5 mg tablet 0.5 mg PO .COMPLEX #45 tabs 08/24/24 escitalopram oxalate 20 mg tablet 20 mg PO DAILY 90 days #90 tabs 08/24/24 mirtazapine 7.5 mg tablet 7.5 mg PO BEDTIME #90 tabs 08/24/24 sulfamethoxazole 800 1 tab PO BID #5 tabs 09/12/24 mg-trimethoprim 160 mg tablet (Bactrim DS) tramadol 50 mg tablet 50 mg PO BID PRN pain #6 tabs 09/12/24 Allergies Allergy/AdvReac Type Severity Reaction Status Date / Time infliximab [From Remicade] AdvReac Headache Verified 09/11/24 12:05 Review of Systems Review of Systems: Constitutional : No Weight loss, No Fever, No Chills, No Night Sweats, No Fatigue, No Malaise ENT/Mouth : No Hearing loss, No Ear Pain, No Nasal Congestion, No Sinus Pain, No Hoarseness, No sore throat, No Rhinorrhea, No Swallowing Difficulty Eyes: No Eye Pain, No Swelling, No Redness, No Foreign Body, No Discharge, No Vision Changes Cardiovascular : No Chest Pain, No SOB, No Dyspnea on Exertion, No Orthopnea, No Edema, No Palpitations Respiratory : No Cough, No Sputum, No Wheezing, No Smoke Exposure, No Dyspnea Gastrointestinal : No Nausea, No Vomiting, No Diarrhea, No Constipation, No abdominal Pain, No Hematochezia, No Melena Genitourinary : no irregular bleeding, No Dysuria, No Urinary Frequency, No Hematuria, No Urinary Incontinence, No Urgency, complaining of right-sided Flank Pain, No Urinary Flow Changes, No Hesitancy Musculoskeletal : Complaining of right elbow pain, No Myalgias, No Joint Swelling Skin : No Skin Lesions, No rash Neuro : No Weakness, No Numbness, No Paresthesias, No Loss of Consciousness, No Dizziness, No Headache Psych : No Anxiety/Panic, No Depression, No SI/HI/AH/VH, No Social Issues, Heme/Lymph: No Bruising, No Bleeding,No Lymphadenopathy Endocrine : No Polyuria, No Polydipsia, No Temperature Intolerance PMFSH Past Medical History Medical History (Updated 09/12/24 @ 05:56 by Reshma Echeverria MD) Kidney stones Ankylosing spondylitis Depression Anxiety Asthma Surgical History H/O gastric sleeve Family History Family History Other Ankylosing spondylitis Social History Social History Alcohol intake: current Alcohol intake frequency: holidays/special occasions only Alcohol type: wine Patient Tobacco Use Status: Never used Tobacco Physical Exam ED Vital Signs: Vital Signs - 24 hr 09/11/24 23:39 09/12/24 02:44 09/12/24 06:40 Temperature 97.2 F 97.6 F 98.1 F Pulse Rate 85 90 89 Respiratory Rate 20 16 16 Blood Pressure 105/77 116/69 124/69 Pulse Oximetry 97 96 97 Oxygen Delivery Method Room Air Room Air Room Air BMI result Body Mass Index 34.9 Const Other: Appearance: Alert. Oriented X3. No acute distress. Well-appearing Eyes: Pupils equal, round and reactive to light. ENT: Pharynx normal. Neck: Normal inspection. Neck supple. No lymph nodes noted. No crepitus CVS: Normal heart rate and rhythm. Pulses normal. Normal S1 and S2 Respiratory: No respiratory distress. Breath sounds normal. No Wheezing. No rales Abdomen: Soft and nontender. No rigidity. No distention. No abdominal pain, mild CVA tenderness in the right Skin: Skin warm and dry. Normal skin color. Normal skin turgor. Extremities: No lower extremity edema. No Lacerations. No Rash Neuro: Oriented X 3. No motor deficit. No sensory deficit. Moving all extremities. No slurred speech. CN 2 through 12 grossly intact Psych: calm, cooperative, normal affect Course Course Course Narrative: RME performed by Erika Adams PA-C. Patient is a 33 year old assigned female at presenting to the emergency department with right lower quadrant abdominal pain, dizziness, right flank pain, and right elbow pain after a slip and fall 2 days ago. Detailed physical exam and review of systems are deferred to the tutoring clinician. Labs, imaging, and swabs ordered. Patient placed back in the waiting room pending room availability and results. Medications Administered Discontinued Medications Generic Name Dose Route Start Last Admin Trade Name Freq PRN Reason Stop Dose Admin Acetaminophen 650 mg 09/11/24 21:52 09/11/24 21:55 Acetaminophen 325 Mg Tablet PO 09/11/24 21:53 650 mg ONCE ONE Administration Ondansetron HCl 4 mg 09/11/24 21:53 09/11/24 21:55 Ondansetron Odt 4 Mg Tab.Mary PAEZINGU 09/11/24 21:54 4 mg ONCE ONE Administration Tramadol HCl 50 mg 09/12/24 03:33 09/12/24 04:05 Tramadol Hcl 50 Mg Tablet PO 09/12/24 03:34 50 mg ONCE ONE Administration Trimethoprim/Sulfamethoxazole 1 tab 09/12/24 03:33 09/12/24 04:07 Sulfamethox/Trimeth 800/160 Tablet PO 09/12/24 03:34 1 tab ONCE ONE Administration Medical Decision Making Medical Decision Making [facility] Narrative: X-ray of the elbow, no obvious abnormality. No significant abnormality in patient's hematology and chemistry, hCG negative, serology negative for influenza and COVID. UA shows a small amount of leukocyte esterase, small amount of bacteria, large amount of squamous epithelial cells. However, since patient is complaining of right-sided flank pain, we will treated as a UTI. Patient states she has history of kidney stones. CT scan pending He was given the 1st dose of Bactrim in the ED CT scan does not show kidney stones Differential Diagnosis Differential Diagnoses: The differential diagnosis associated with the presentation includes (Pyelonephritis, UTI, ureterolithiasis, musculoskeletal pain) Lab Data [facility] Lab Attestation statement: I reviewed the patient's lab results. 09/11/24 12:22 09/11/24 12:22 Labs: Lab Results 09/11/24 09/11/24 Range/Units 12:22 17:59 WBC 9.7 (4.8-10.8) X10*3/uL RBC 4.75 (4.20-5.50) X10*6/uL Hgb 15.5 (12.0-16.0) g/dl Hct 45.9 (37.0-47.0) % MCV 96.6 (80.0-98.0) fL MCH 32.6 (27.0-33.0) pg MCHC 33.8 (31.0-35.0) g/dl RDW 13.1 (11.0-16.0) % Plt Count 322 (160-400) X10*3/uL MPV 9.5 (9.4-12.3) fL Immature Gran % (Auto) 0.3 (0.0-0.4) % Neut % (Auto) 64.1 (45-73) % Lymph % (Auto) 27.9 (20-40) % [place] % (Auto) 5.4 (2-11) % Eos % (Auto) 1.6 (0-4) % Baso % (Auto) 0.7 (0-2) % Lymph # (Auto) 2.7 (1.2-4.9) X10*3/uL [place] # (Auto) 0.5 (0.1-1.2) X10*3/uL Eos # (Auto) 0.2 (0.0-0.4) X10*3/uL Baso # (Auto) 0.1 (0.0-0.2) X10*3/uL Abs Immat Gran (auto) 0.03 (0.00-0.03) X10*3/uL Absolute Neuts (auto) 6.2 (2.0-8.3) x10*3/uL Absolute Nucleated RBC 0.000 (0.0-0.012) X10*3/uL Nucleated RBC % (auto) 0.0 (0.0-0.2) /100WBC Sodium 139 (135-145) mmol/L Potassium 4.2 (3.3-5.1) mmol/L Chloride 108 (96-108) mmol/L Carbon Dioxide 24 (22-29) mmol/L Anion Gap 11 L (12-20) BUN 11 (9-16) mg/dL Creatinine 0.73 (0.5-1.4) mg/dL Estim Creat Clear Calc 118.5 Estimated GFR > 60 Random Glucose 99 (60-115) mg/dL Calcium 9.6 (8.4-10.2) mg/dL Magnesium 2.3 (1.6-2.6) mg/dL Total Bilirubin 0.4 (0.0-1.0) mg/dL AST 17 (5-31) U/L ALT 17 (0-31) U/L Alkaline Phosphatase 106 (39-117) U/L Total Protein 8.2 H (6.5-8.0) g/dL Albumin 4.3 (3.5-5.0) g/dL Beta HCG, Quant < 2 mIU/mL Urine Color Yellow Urine Appearance Clear Urine pH 5.5 (5.0-9.0) Ur Specific [place] >= 1.030 H (1.005-1.025) Urine Protein Negative (Neg-Trace) mg/dL Urine Glucose (UA) Negative (Negative) mg/dL Urine Ketones Trace (Negative) mg/dL Urine Blood Negative (Negative) Urine Nitrite Negative (Negative) Ur Leukocyte Esterase Trace H (Negative) Urine RBC 0-2 (0-2) /HPF Urine WBC 0-5 (0-5) /HPF Ur Squamous Epith Cells 6-10 (0-2) /HPF Urine Bacteria 1+ (None Seen) Hyaline Casts 0-2 (0-2) /LPF Influenza Type A (PCR) NEGATIVE (Negative) Influenza Type B (PCR) NEGATIVE (Negative) RSV RNA Qual (PCR) NEGATIVE (Negative) SARS-CoV-2 RNA (RT-PCR) NEGATIVE (Negative) Independent Interpretation I performed an independent interpretation of an: CT Scan Interpretation: Postsurgical changes are present within the stomach, prior gastric bypass. The gallbladder is surgically absent. No focal hepatic lesion identified. Spleen is within normal limits. Adrenal glands are unremarkable. Kidneys are non hydronephrotic. No bowel obstruction, pneumoperitoneum, or pneumatosis. Pelvic contents unremarkable. Normal appendix. The bones are intact. IMPRESSION: No acute findings Discharge Plan Discharge Clinical Impression: UTI (urinary tract infection), Contusion of elbow Patient Disposition: Home, Self-Care Instructions: Urinary Tract Infection in Women (DC), Contusion in Adults (ED) Additional Instructions: Please follow-up with your primary care physician tomorrow. If you have any worsening or new symptoms, please return to the emergency room or call 911 Prescriptions: New sulfamethoxazole-trimethoprim [Bactrim DS] 800-160 mg tablet 1 tab PO BID Qty: 5 0RF tramadol 50 mg tablet 50 mg PO BID PRN (Reason: pain) Qty: 6 0RF No Action ondansetron 4 mg tablet,disintegrating 4 mg PO Q6H PRN (Reason: nausea and vomiting) Qty: 10 0RF nitrofurantoin monohyd/m-cryst [Macrobid] 100 mg capsule 100 mg PO BID 5 Days Qty: 10 0RF Rx Instructions: must administer with a meal/food esomeprazole magnesium 40 mg capsule,delayed release(DR/EC) 40 mg PO DAILY Taltz Autoinjector 80 mg/mL auto-injector subcut acetaminophen 500 mg tablet PO metoprolol succinate 25 mg tablet extended release 24 hr 25 mg PO DAILY norethindrone (contraceptive) 0.35 mg tablet PO albuterol sulfate 90 mcg/actuation HFA aerosol inhaler inhalation aripiprazole 5 mg tablet 5 mg PO BEDTIME Qty: 90 1RF clonazepam 0.5 mg tablet 0.5 mg PO .COMPLEX Qty: 45 0RF Rx Instructions: 0.5 mg orally take 1/2 tab daily prn anxiety and take one at bedtime every night; escitalopram oxalate 20 mg tablet 20 mg PO DAILY 90 Days Qty: 90 1RF mirtazapine 7.5 mg tablet 7.5 mg PO BEDTIME Qty: 90 1RF methocarbamol 500 mg tablet 500 mg PO BID Qty: 60 1RF cholecalciferol (vitamin D3) 25 mcg (1,000 unit) capsule 25 mcg PO DAILY Qty: 90 1RF diclofenac sodium [Arthritis Pain (diclofenac)] 1 % gel 4 g topical QID Qty: 100 5RF Rx Instructions: apply to affected area every 4-6 hours PRN Stand Alone Forms: Work/School Release Interventions: ED Discharge Assessment Last Done: 09/12/24 06:40 Discharge Date/Time: 09/12/24 06:41 Print Language: Greenlandic ED Observation ED Observation Discharge Plan Exam: I did get a call from [facility] who did not want to fill the script for tramadol. Patient is on meds that put her at risk for serotonin syndrome. Her CT was normal and she has diclofenac gel for the elbow contusion. I only feel comfortable continuing with tylenol. Which was told to pharmacy who relayed that to the patient.
[2024-09-11 12:27] LABS: MANUAL DIFF FLAG NO
[2024-09-11 12:34] LABS: Basophils Absolute Auto 0.1 X10*3/uL (0.0-0.2); Basophils Percent Auto 0.7 % (0-2); Eosinophils Absolute Auto 0.2 X10*3/uL (0.0-0.4); Eosinophils Percent Auto 1.6 % (0-4); Hematocrit 45.9 % (37.0-47.0); Hemoglobin 15.5 g/dl (12.0-16.0); Imm Gran Abs Auto 0.03 X10*3/uL (0.00-0.03); Imm Gran Pct Auto 0.3 % (0.0-0.4); Lymphocytes Absolute Auto 2.7 X10*3/uL (1.2-4.9); Lymphocytes Percent Auto 27.9 % (20-40); Mean Corpuscular HGB Conc 33.8 g/dl (31.0-35.0); Mean Corpuscular Hemoglobin 32.6 pg (27.0-33.0); Mean Corpuscular Volume 96.6 fL (80.0-98.0); Mean Platelet Volume 9.5 fL (9.4-12.3); Monocytes Absolute Auto 0.5 X10*3/uL (0.1-1.2); Monocytes Percent Auto 5.4 % (2-11); Neutrophils Absolute Auto 6.2 x10*3/uL (2.0-8.3); Neutrophils Percent Auto 64.1 % (45-73); Platelet Count 322 X10*3/uL (160-400); Red Blood Count 4.75 X10*6/uL (4.20-5.50); Red Cell Distribution Width 13.1 % (11.0-16.0); White Blood Count 9.7 X10*3/uL (4.8-10.8)
[2024-09-11 12:49] LABS: Alanine Aminotransferase 17 U/L (0-31); Albumin Level 4.3 g/dL (3.5-5.0); Alkaline Phosphatase 106 U/L (39-117); Anion Gap 11 (12-20); Aspartate Amino Transferase 17 U/L (5-31); Bilirubin Total 0.4 mg/dL (0.0-1.0); Blood Urea Nitrogen 11 mg/dL (9-16); Calcium 9.6 mg/dL (8.4-10.2); Carbon Dioxide 24 mmol/L (22-29); Chloride 108 mmol/L (96-108); Creatinine Clr Calc Pharmacy 118.5; Estimated Glomerular Filt Rate > 60; Glucose Random 99 mg/dL (60-115); HCG Quantitative < 2 mIU/mL; Magnesium 2.3 mg/dL (1.6-2.6); Potassium 4.2 mmol/L (3.3-5.1); Sodium 139 mmol/L (135-145); Total Protein 8.2 g/dL (6.5-8.0)
[2024-09-11 13:06] LABS: Influenza A PCR NEGATIVE (Negative); Influenza B PCR NEGATIVE (Negative); Resp Syncy Virus RNA Qual PCR NEGATIVE (Negative); SARS COV2 PCR INHOUSE NEGATIVE (Negative)
[2024-09-11 18:07] LABS: Appearance Urine Clear; Color Urine Yellow; Glucose Urine UA Negative (Negative); Leukocyte Esterase Urine Trace (Negative); Nitrite Urine Negative (Negative); PH 5.5 (5.0-9.0); Specific Gravity - Urine >= 1.030 (1.005-1.025); UMIC TRIGGER UACC YES; Urine Blood Negative (Negative); Urine Ketones Trace mg/dL (Negative); Urine Protein Negative (Neg-Trace)
[2024-09-11 18:48] LABS: Bacteria Urine 1+ (None Seen); Hyaline Casts Urine 0-2 /LPF (0-2); RBC Urine 0-2 /HPF (0-2); WBC Urine 0-5 /HPF (0-5)
--- OUTSIDE RECORDS SUMMARY | 2024-09-11 19:14 | XMS_ITS | Encounter Summary ---
Author Organization [facility] Address [address] [place] [address] Care Team Providers Care Agency Director Name Role Phone Cassius Alvarez MD Primary Care Provider Unavail able [facility], Pcp Primary Care Provider Cassius Guevara MD Primary Care Provider Unavail able [facility], [facility] Primary Care Provider UnavailCassius Schmitz MD Primary Care Provider Unavail able Encounter Details Date Type Department Care Team Description 06/02/2021 Orders Only Medical Records [address] [place] [id number] Marylu Cisneros MD Social History Tobacco Use Types Packs/Day Years Used Date Smoking Tobacco: Never Smokeless Tobacco: Never Alcohol Use Standard Drinks/Week Comments Yes 0 (1 standard drink = 0.6 oz pur e alcohol) very rare Sex Assigned at Date Recorded Female 01/25/2022 8:35 PM E DT Job Start Date Occupation Industry Not on file Not on file Not on file COVID-19 Exposure Response Date Recorded In the last month, have you been in contact with someone who was confirmed or suspected to have Coronavirus / COVID-19? No / Unsure 05/27/2021 8:12 AM EST documented as of this encounter Plan of Treatment Not on file documented as of this encounter Procedures Procedure Name Priority Date/Time Associated Diagnosis Comments OUTSIDE PATHOLOGY Routine 05/29/2021 documented in this encounter Results * OUTSIDE PATHOLOGY (05/29/2021) Marylu Cisneros MD OUTSIDE LAB documented in this encounter Visit Diagnoses Not on filedocumented in this encounter Additional Health Concerns Infection Onset Date Last Indicated Resolved Time COVID-19 08/27/2021 08/28/2021 12/04/2021 9:44 AM EDT documented as of this encounter Care Teams Agency Director Relationship Specialty Start Date End Date Cassius Alvarez MD PCP - General Internal Medicine 04/03/21 11/16/21 [facility], Pcp PCP - General Internal Medicine 11/17/21 03/02/22 Cassius Alvarez MD PCP - General Internal Medicine 03/03/22 07/08/22 [facility], Pcp PCP - General Internal Medicine 07/09/22 01/19/23 Cassius Alvarez MD PCP - General Internal Medicine 01/20/23 documented as of this encounter
--- OUTSIDE RECORDS SUMMARY | 2024-09-11 19:14 | XMS_ITS | Encounter Summary ---
Author Organization [facility] Address [address] [place] [address] Care Team Providers Care Chain Hoist Operator Name Role Phone Cassius Alvarez MD Primary Care Provider Unavail able [facility], [facility]cp Primary Care Provider Cassius Guevara MD Primary Care Provider Unavail able [facility], [facility] Primary Care Provider UnavailCassius Schmitz MD Primary Care Provider Unavail able Encounter Details Date Type Department Care Team Description 10/31/2021 [facility] Medical Records [address] [place] [id number] [place] [address] Social History Tobacco Use Types Packs/Day Years Used Date Smoking Tobacco: Never Smokeless Tobacco: Never Alcohol Use Standard Drinks/Week Comments Not Currently 0 (1 standard drink = 0.6 oz pur e alcohol) very rare Sex Assigned at Date Recorded Female 01/25/2022 8:35 PM E DT Job Start Date Occupation Industry Not on file Not on file Not on file COVID-19 Exposure Response Date Recorded In the last 10 days, have yo u been in contact with someone who was confirmed or suspected to have Coronavirus/COVID-19? Unable to assess 10/30/2021 7:26 AM EDT documented as of this encounter Plan of Treatment Not on file documented as of this encounter Visit Diagnoses Not on filedocumented in this encounter Additional Health Concerns Infection Onset Date Last Indicated Resolved Time COVID-19 08/27/2021 08/28/2021 12/04/2021 9:44 AM EDT documented as of this encounter Care Teams Chain Hoist Operator Relationship Specialty Start Date End Date Cassius Alvarez MD PCP - General Internal Medicine 9/23/21 5/8/22 [facility] Pcp PCP - General Internal Medicine 11/17/21 03/02/22 Cassius Alvarez MD PCP - General Internal Medicine 03/03/22 07/08/22 [facility], Pcp PCP - General Internal Medicine 07/09/22 01/19/23 Cassius Alvarez MD PCP - General Internal Medicine 01/20/23 documented as of this encounter
--- OUTSIDE RECORDS SUMMARY | 2024-09-11 19:14 | XMS_ITS | Encounter Summary ---
Author Organization [facility] Address [address] [place] [address] Care Team Providers Care Medical Supply Technician Name Role Phone Neli Andrews MD Primary Care Provider Debora Brian Johnston PA-C Primary Care Provider Unavail able Cassius Alvarez MD Primary Care Provider Unavail able [facility], Pcp Primary Care Provider UnavailCassius Schmitz MD Primary Care Provider Unavail able [facility], Pcp Primary Care Provider UnavailCassius Schmitz MD Primary Care Provider Unavail able Encounter Details Date Type Department Care Team Description 12/01/2018 Orders Only General Surgery - [place] [address] [facility] [address] [place] [phone] Dayana Frost MD [address] [facility] [address] [place] [address] Social History Tobacco Use Types Packs/Day Years Used Date Smoking Tobacco: Never Smokeless Tobacco: Never Alcohol Use Standard Drinks/Week Comments Yes 0 (1 standard drink = 0.6 oz pur e alcohol) very rare Sex Assigned at Date Recorded Female 01/25/2022 8:35 PM E DT Job Start Date Occupation Industry Not on file Not on file Not on file documented as of this encounter Plan of Treatment Not on file documented as of this encounter Visit Diagnoses Not on filedocumented in this encounter Additional Health Concerns Infection Onset Date Last Indicated Resolved Time COVID-19 08/27/2021 08/28/2021 12/04/2021 9:44 AM EDT documented as of this encounter Care Teams Medical Supply Technician Relationship Specialty Start Date End Date Neli Andrews MD PCP - General Internal Medicine 03/18/18 1 Brian Davis PA-C PCP - General Med/Peds 03/25/21 04/02/21 Cassius Alvarez MD PCP - General Internal Medicine 04/03/21 11/16/21 [facility], Pcp PCP - General Internal Medicine 11/17/21 03/02/22 Cassius Alvarez MD PCP - General Internal Medicine 03/03/22 07/08/22 [facility], Pcp PCP - General Internal Medicine 07/09/22 01/19/23 Cassius Alvarez MD PCP - General Internal Medicine 01/20/23 documented as of this encounter
--- OUTSIDE RECORDS SUMMARY | 2024-09-11 19:14 | XMS_ITS | Encounter Summary ---
Author Organization [facility] Address [address] [place] [address] Care Team Providers Care Brass Buffer Name Role Phone Cassius Alvarez MD Primary Care Provider Unavail able [facility], Pcp Primary Care Provider UnavailCassius Schmitz MD Primary Care Provider Unavail able [facility], Pcp Primary Care Provider UnavailCassius Schmitz MD Primary Care Provider Unavail able Reason for Visit * Reason Onset Date Comments other 10/30/2021 Encounter Details Date Type Department Care Team Description 10/30/2021 Telephone Medicine/Pediatrics - [address] [phone] Jc Barbour DO other Social History Tobacco Use Types Packs/Day Years [...] AM EDT documented as of this encounter Miscellaneous Notes * Telephone Encounter - Hedy Rosa R.N. - 10/31/2021 10:20 AM EDT Called pt per Dr Barbour's request, pt reports she had to sign herself out at [facility] because she had already waited 6 hours and was told it would be another 3-4 hours wait last evening. Pt reports she is currently at [facility] ER where she was given Morphine, Zofran, and IVF and an ultrasound and MRI were done, pt is waiting for results and instructions. Pt is inquiring whether she will be able to have emergency surgery if needed because she feels this is related to uterine fibroid. Advised pt that once the ER provider reviews their findings with her, she is discharged and instructed on follow up plan, she should call for a follow up appointment if it is an DIRECTOR SOFTWARE QUALITY ASSURANCE related issue. Pt verbalized understanding and agrees to plan. * Telephone Encounter - Yesi Nguyen M.A. - 10/30/2021 2:18 PM EDT FYI - patient is in the [facility] ER for n/v and abdominal pain. She will contact the office once she is d/c with recommendations documented in this encounter Plan of Treatment Not on file documented as of this encounter Visit Diagnoses Not on filedocumented in this encounter Additional Health Concerns Infection Onset Date Last Indicated Resolved Time COVID-19 08/27/2021 08/28/2021 12/04/2021 9:44 AM EDT documented as of this encounter Care Teams Brass Buffer Relationship Specialty Start Date End Date Cassius [...]
--- OUTSIDE RECORDS SUMMARY | 2024-09-11 19:14 | XMS_ITS | Encounter Summary ---
Author Organization [facility] Address [address] [place] [address] Care Team Providers Care Health Information Clerk Name Role Advertising Space ClerkKenny Morales MD Primary Care Provider Unavailab Neli Anderson MD Primary Care Provider Debora Brian Johnston PA-C Primary Care Provider Unavail able Cassius Alvarez MD Primary Care Provider Unavail able [facility], Pcp Primary Care Provider Unavailabl Cassius Heaton MD Primary Care Provider Unavail able [facility], Pcp Primary Care Provider Unavailabl e Cassius Alvarez MD Primary Care Provider Unavail able Encounter Details Date Type Department Care Team Description 05/05/2012 Pt. Non Urgent Medic al Question Chiropractic - [address] [address] Zeferino Tineo D.C. Social History Tobacco Use Types Packs/Day Years Used Date Smoking Tobacco: Never Smokeless Tobacco: Never Alcohol Use Standard Drinks/Week Comments No 0 (1 standard drink = 0.6 oz pur e alcohol) Sex Assigned at Date Recorded Female 01/25/2022 [...] documented as of this encounter Care Teams Health Information Clerk Relationship Specialty Start Date End Date Kenny Morales MD PCP - General Internal Medicine 12/31/11 03/17/18 Neil Andrews MD PCP - General Internal Medicine [...]
--- OUTSIDE RECORDS SUMMARY | 2024-09-11 19:14 | XMS_ITS | Encounter Summary ---
Author Organization [facility] Address [address] [place] [address] Care Team Providers Care Health Education Teacher Name Role Phone Cassius Alvarez MD Primary Care Provider Unavail able [facility], [facility]cp Primary Care Provider UnavailCassius Schmitz MD Primary Care Provider Unavail able [facility], Pcp Primary Care Provider Unavailabl Cassius Heaton MD Primary Care Provider Unavail able Reason for Visit * Reason Comments E-prescribe Rx Request Encounter Details Date Type Department Care Team Description 06/20/2021 Refill OBGYN - [place] [address] Jc Barbour DO E-prescribe Rx Request Social History Tobacco Use Types Packs/Day Years [...] have Coronavirus / COVID-19? No / Unsure 06/18/2021 10:01 AM EST documented as of this encounter Miscellaneous Notes * Telephone Encounter - Phoebe Bhatia - 06/23/2021 8:35 AM EST WHEN WAS THE PATIENTS LAST ANNUAL CUTTER OUT EXAM? 04/14/20 Does patient have an upcoming appointment? Yes 08/14/21 (THE MEDICATION REQUESTED IS ON THE MED LIST ABOVE) Did you check the Pharmacy information above?: YES Indicate how soon the patient needs the script: DIANNA Patient would like script to be: E-PRESCRIBED/FAXED TO PHARMACY Is the doctor here today?: YES Can the message wait until the doctor returns?: no Has the patient been told that the prescription will not be filled until the end of the day? YES [place] / [place] / Product Type: [place]ARE [id number] documented in this encounter Plan of Treatment Not on file documented as of this encounter Visit Diagnoses Not on filedocumented in this encounter Additional Health Concerns Infection Onset Date Last Indicated Resolved Time COVID-19 08/27/2021 08/28/2021 12/04/2021 9:44 AM EDT documented as of this encounter Care Teams Health Education Teacher Relationship Specialty Start Date End Date Cassius Alvarez MD PCP - General Internal Medicine 04/03/21 11/16/21 [facility], Pcp PCP - General Internal Medicine 11/17/21 03/02/22 Cassius Alvarez MD PCP - General Internal Medicine 03/03/22 07/08/22 [facility], Pcp PCP - General Internal Medicine 07/09/22 01/19/23 Cassius Alvarez MD PCP - General Internal Medicine 01/20/23 documented as of this encounter
--- OUTSIDE RECORDS SUMMARY | 2024-09-11 19:14 | XMS_ITS | Encounter Summary ---
Author Organization [facility] Address [address] [place] [address] Care Team Providers Care Change Coordinator Name Role Phone Cassius Alvarez MD Primary Care Provider Unavail able [facility] Primary Care Provider Cassius Guevara MD Primary Care Provider Unavail able [facility], Pcp Primary Care Provider UnavailCassius Schmitz MD Primary Care Provider Unavail able Encounter Details Date Type Department Care Team Description 09/24/2021 Land Leveler Report Medical Records [address] [place] [id number] Prashant Brady MD Social History Tobacco Use Types Packs/Day [...] have Coronavirus / COVID-19? No / Unsure 09/25/2021 9:48 AM EDT documented as of this encounter Plan of Treatment Not on file documented as of this encounter Visit Diagnoses Not on filedocumented in this encounter Additional Health Concerns Infection Onset Date Last Indicated Resolved Time COVID-19 08/27/2021 08/28/2021 12/04/2021 9:44 AM EDT documented as of this encounter Care Teams Change Coordinator Relationship Specialty Start Date End Date Cassius Alvarez MD PCP - General Internal Medicine 9/23/21 5/8/22 [facility], Pcp PCP - General Internal Medicine 11/17/21 03/02/22 Cassius Alvarez MD PCP - General Internal Medicine 03/03/22 07/08/22 [facility], Pcp PCP - General Internal Medicine 07/09/22 01/19/23 Cassius Alvarez MD PCP - General Internal Medicine 01/20/23 documented as of this encounter
--- OUTSIDE RECORDS SUMMARY | 2024-09-11 19:14 | XMS_ITS | Encounter Summary ---
Author Organization [facility] Address [address] [place] [address] Care Team Providers Care Group Therapy Counselor Name Role Phone Neli Andrews MD Primary Care Provider Debora Brian Johnston PA-C Primary Care Provider Unavail able Cassius Alvarez MD Primary Care Provider Unavail able [facility], Pcp Primary Care Provider Unavailabl Cassius Heaton MD Primary Care Provider Unavail able [facility], Pcp Primary Care Provider UnavailCassius Schmitz MD Primary Care Provider Unavail able Reason for Visit * Reason Onset Date Comments My Chart Appointment 01/10/2019 Encounter Details Date Type Department Care Team Description 01/10/2019 [place] [facility] [address] [address] Monika Choe PA-C My Chart Appointment Social History Tobacco Use Types Packs/Day Years Used Date Smoking Tobacco: Never Smokeless Tobacco: Never Alcohol Use Standard Drinks/Week Comments Yes 0 (1 standard drink = 0.6 oz pur e alcohol) very rare Sex Assigned at Date Recorded Female 01/25/2022 8:35 PM E DT Job Start Date Occupation Industry Not on file Not on file Not on file documented as of this encounter Miscellaneous Notes * Telephone Encounter - Belkys Huber R.N. - 01/10/2019 12:20 PM EDT I left a message for the patient to return my call. * Telephone Encounter - Ariana Reyes - 01/10/2019 10:53 AM EDT Patient has scheduled a visit through My Chart. Please call patient to triage for appropriateness. Date appointment is booked: 01/10/19 Appointment scheduled with Monika Choe Reason for appointment: feeling like heart is skipping beats, some chest discomfort and shortness of breath. documented in this encounter Plan of Treatment Not on file documented as of this encounter Visit Diagnoses Not on filedocumented in this encounter Additional Health Concerns Infection Onset Date Last Indicated Resolved Time COVID-19 08/27/2021 08/28/2021 12/04/2021 9:44 AM EDT documented as of this encounter Care Teams Group Therapy Counselor Relationship Specialty Start Date End Date Neli [...]
--- OUTSIDE RECORDS SUMMARY | 2024-09-11 19:14 | XMS_ITS | Encounter Summary ---
Author Organization [facility] Address [address] [place] [address] Care Team Providers Care Mail List Librarian Name Role Phone Neli Andrews MD Primary Care Provider Debora Brian Johnston PA-C Primary Care Provider Unavail able Cassius Alvarez MD Primary Care Provider Unavail able [facility], Pcp Primary Care Provider UnavailCassius Schmitz MD Primary Care Provider Unavail able [facility], [facility] Primary Care Provider UnavailCassius Schmitz MD Primary Care Provider Unavail able Encounter Details Date Type Department Care Team Description 11/28/2018 Pt. Non Urgent Medic al Question Physiatry - [address] [address] Blanco Sanders DO Social History Tobacco Use Types Packs/Day Years Used Date Smoking Tobacco: Never Smokeless Tobacco: Never Alcohol Use Standard Drinks/Week Comments Yes 0 (1 standard drink = 0.6 oz pur e alcohol) very rare Sex Assigned at Date Recorded Female 01/25/2022 8:35 PM E DT Job Start Date Occupation Industry Not on file Not on file Not on file documented as of this encounter Progress Notes * Nadine Wood M.A. - 11/28/2018 3:50 PM EDTFrom: Jia Valdez To: Blanco Sanders DO Sent: 11/28/2018 3:48 PM EDT Subject: Jia Sanders. So this round of injections helped a tiny bit but not as much as the regular ones. Next time, could we try both types of injections? Or is that too much? Also, how can I make sure that my insurances will still cover me seeing you now that I'm off of my dads insurance? My mom also toldme I could tell you that I'm running low on the pain med and was I wondering if you could put a refill in for it. Thank you. -Jia Valdez documented in this encounter Plan of Treatment Not on file documented as of this encounter Visit Diagnoses Not on filedocumented in this encounter Additional Health Concerns Infection Onset Date Last Indicated Resolved Time COVID-19 08/27/2021 08/28/2021 12/04/2021 9:44 AM EDT documented as of this encounter Care Teams Mail List Librarian Relationship Specialty Start Date End Date Neli [...]
--- OUTSIDE RECORDS SUMMARY | 2024-09-11 19:14 | XMS_ITS | Encounter Summary ---
Author Organization [facility] Address [address] [place] [address] Care Team Providers Care Guest Request Runner Name Role Administrative Assistant CoordinatorKenny Morales MD Primary Care Provider Unavailab Neli Anderson MD Primary Care Provider Debora Brian Johnston PA-C Primary Care Provider Unavail able Cassius Alvarez MD Primary Care Provider Unavail able [facility], Pcp Primary Care Provider Unavailabl Cassius Heaton MD Primary Care Provider Unavail able [facility], Pcp Primary Care Provider Unavailabl e Cassius Alvarez MD Primary Care Provider Unavail able Reason for Visit * Reason Onset Date Comments Advice 09/28/2012 Encounter Details Date Type Department Care Team Description 09/28/2012 Pt. Non Urgent Medical Question Medicine/Pediatrics - [address] [id number] Kenny Morales MD Diarrhea (Primary Dx) Social History Tobacco Use Types Packs/Day Years [...] as of this encounter Progress Notes * Lorelei Singh L.P.N. - 09/29/2012 8:33 AM EDTFrom: JIA ARENAS To: Kenny Morales MD Sent: WedSep 28, 2012 6:34 PM Subject: Test results If it was an ongoing kidney stone would there have to be blood in the urine? And I've been doing the lactose diet and I'm still getting the abdominal pain. So my mom wanted me to let you know that I'm going to try to get an appointment in urology and if we need a referral ill have my mom let you know. documented in this encounter Plan of Treatment Not on file documented as of this encounter Visit Diagnoses Diagnosis Diarrhea- Primary documented in this encounter Additional Health Concerns Infection Onset Date Last Indicated Resolved Time COVID-19 08/27/2021 08/28/2021 12/04/2021 9:44 AM EDT documented as of this encounter Care Teams Guest Request Runner Relationship Specialty Start Date End Date Kenny Morales MD PCP - General Internal Medicine 12/31/11 03/17/18 Neli Andrews MD PCP - General Internal [...]
--- OUTSIDE RECORDS SUMMARY | 2024-09-11 19:14 | XMS_ITS | Encounter Summary ---
Author Organization [facility] Address [address] [place] [address] Care Team Providers Care Machine Assembler Name Role Transfusion AideKenny Morales MD Primary Care Provider Unavailab Neli Anderson MD Primary Care Provider Debora Brian Johnston PA-C Primary Care Provider Unavail able Cassius Alvarez MD Primary Care Provider Unavail able [facility], Pcp Primary Care Provider Unavailabl Cassius Heaton MD Primary Care Provider Unavail able [facility], Pcp Primary Care Provider UnavailCassius Schmitz MD Primary Care Provider Unavail able Encounter Details Date Type Department Care Team Description 08/08/2012 Pt. Non Urgent Medical Question Medicine/Pediatrics [address] [phone] Kenny Morales MD Social History Tobacco Use Types Packs/Day [...] as of this encounter Progress Notes * Tova WattersPIrenaNIrena - 08/08/2012 11:05 AM ESTFrom: JIA ARENAS To: Kenny Morales MD Sent: WedAug 08, 2012 10:54 AM Subject: Dermatran cream Here's the abbreviations that are on the bottle of the cream: Ketam. Bupiv. Dicl. Doxep. Estuardo. Orph. -Jia documented in this encounter Plan of Treatment Not on file documented as of this encounter Visit Diagnoses Not on filedocumented in this encounter Additional Health Concerns Infection Onset Date Last Indicated Resolved Time COVID-19 08/27/2021 08/28/2021 12/04/2021 9:44 AM EDT documented as of this encounter Care Teams Machine Assembler Relationship Specialty Start Date End Date Kenny [...]
--- OUTSIDE RECORDS SUMMARY | 2024-09-11 19:14 | XMS_ITS | Clinical Summary ---
Author Organization [facility] Address [address] [place] [address] Care Team Providers Care Psychologists Name Role Phone Cassius Alvarez MD Primary Care Provider [phone] Allergies Active Allergy Reactions Criticality Noted Date [...] age to complete this topic Care Teams Psychologists Relationship Specialty Start Date End Date Cassius Alvarez MD [address] [place] [phone] PCP - General Internal Medicine 08/16/23
--- OUTSIDE RECORDS SUMMARY | 2024-09-11 19:14 | XMS_ITS | Encounter Summary ---
Author Organization [facility] Address [address] [place] [address] Care Team Providers Care Local Bulk Driver Name Role Phone Cassius Alvarez MD Primary Care Provider Unavail able [facility], Pcp Primary Care Provider Cassius Guevara MD Primary Care Provider Unavail able [facility], [facility] Primary Care Provider UnavailCassius Schmitz MD Primary Care Provider Unavail able Encounter Details Date Type Department Care Team Description 08/21/2021 SCAN Medical Records [address] [place] [address] Abstract, Provider Nausea and vomiting, intractability of vomiting not specified, unspecified vomiting type; Nonintractable headache, unspecified chronicity pattern, unspecified headache type Social History Tobacco Use Types Packs/Day Years [...] or suspected to have Coronavirus / COVID-19? Unable to assess 08/14/2021 7:24 AM EST documented as of this encounter Plan of Treatment Not on file documented as of this encounter Procedures Procedure Name Priority Date/Time Associated Diagnosis Comments MRI OF BRAIN NO CONTRAST Routine 07/30/2021 Nausea and vomiting, intractability of vomiting not specified, unspecified vomiting type Nonintractable headache, unspecified chronicity pattern, unspecified headache type documented in this encounter Results * MRI OF BRAIN NO CONTRAST (07/30/2021) Cassius Alvarez MD MRI Performing Organization Address City/State/[facility] Co de Phone Number [facility] [address] [facility] documented in this encounter Visit Diagnoses Diagnosis Nausea and vomiting, intractability of vomiting not specified, unspecified vomiting type Nonintractable headache, unspecified chronicity pattern, unspecified headache type documented in this encounter Additional Health Concerns Infection Onset Date Last Indicated Resolved Time COVID-08/27/2021 08/28/2021 12/04/2021 9:44 AM EDT documented as of this encounter Care Teams Local Bulk Driver Relationship Specialty Start Date End Date Cassius [...]
--- OUTSIDE RECORDS SUMMARY | 2024-09-11 19:14 | XMS_ITS | Encounter Summary ---
Author Organization [facility] Address [address] [place] [address] Care Team Providers Care Insurance Investigator Name Role Phone Neli Andrews MD Primary Care Provider Debora Brian Johnston PA-C Primary Care Provider Unavail able Cassius Alvarez MD Primary Care Provider Unavail able [facility], Pcp Primary Care Provider UnavailCassius Schmitz MD Primary Care Provider Unavail able [facility], Pcp Primary Care Provider UnavailCassius Schmitz MD Primary Care Provider Unavail able Encounter Details Date Type Department Care Team Description 11/23/2018 Orders Only Medical Records [address] [place] [address] Dayana Frost MD [address] [place] [phone] Social History Tobacco Use Types Packs/Day [...] Date/Time Associated Diagnosis Comments OUTSIDE PATHOLOGY Routine 11/21/2018 documented in this encounter Results * OUTSIDE PATHOLOGY (11/21/2018) Dayana Frost MD OUTSIDE LAB documented in this encounter Visit Diagnoses Not on filedocumented in this encounter Additional Health Concerns Infection Onset Date Last Indicated Resolved Time COVID-19 08/27/2021 08/28/2021 12/04/2021 9:44 AM EDT documented as of this encounter Care Teams Insurance Investigator Relationship Specialty Start Date End Date Neli Andrews MD PCP - General Internal Medicine 03/18/18 1 Brian Davis PA-C PCP - General Med/Peds 03/25/21 04/02/21 Cassius Alvarez MD PCP - General Internal Medicine 04/03/21 11/16/21 [facility], Pcp PCP - General Internal Medicine 11/17/21 03/02/22 Cassius Alvarez MD PCP - General Internal Medicine 03/03/22 07/08/22 [facility], Pcp PCP - General Internal Medicine 07/09/22 01/19/23 Cassius Alvarez MD PCP - General Internal Medicine 01/20/23 documented as of this encounter
--- OUTSIDE RECORDS SUMMARY | 2024-09-11 19:14 | XMS_ITS | Encounter Summary ---
Author Organization [facility] Address [address] [place] [address] Care Team Providers Care Double Needle Operator Name Role Phone Neli Andrews MD Primary Care Provider Debora Brian Johnston PA-C Primary Care Provider Unavail able Cassius Alvarez MD Primary Care Provider Unavail able [facility], Pcp Primary Care Provider UnavailCassius Schmitz MD Primary Care Provider Unavail able [facility], Pcp Primary Care Provider UnavailCassius Schmitz MD Primary Care Provider Unavail able Encounter Details Date Type Department Care Team Description 12/02/2018 [facility] Medical Records [address] [place] [id number] Abstract, Provider Social History Tobacco Use Types Packs/Day Years [...] documented as of this encounter Care Teams Double Needle Operator Relationship Specialty Start Date End Date Neli [...]
--- OUTSIDE RECORDS SUMMARY | 2024-09-11 19:14 | XMS_ITS | Encounter Summary ---
Author Organization [facility] Address [address] [place] [address] Care Team Providers Care Teletypesetter Name Role Phone Neli Andrews MD Primary Care Provider Debora Brian Johnston PA-C Primary Care Provider Unavail able Cassius Alvarez MD Primary Care Provider Unavail able [facility], Pcp Primary Care Provider UnavailCassius Schmitz MD Primary Care Provider Unavail able [facility], Pcp Primary Care Provider UnavailCassius Schmitz MD Primary Care Provider Unavail able Encounter Details Date Type Department Care Team Description 02/07/2019 [facility] Medical Records [address] [place] [phone] Abstract, Provider Social History Tobacco Use Types [...] documented as of this encounter Care Teams Teletypesetter Relationship Specialty Start Date End Date Neli [...]
--- OUTSIDE RECORDS SUMMARY | 2024-09-11 19:15 | XMS_ITS | Encounter Summary ---
Author Organization [facility] Address [address] [place] [address] Care Team Providers Care Fireworks Assembly Supervisor Name Role Auditing Control ClerkKenny Morales MD Primary Care Provider Unavailab Neli Anderson MD Primary Care Provider Debora Brian Johnston PA-C Primary Care Provider Unavail able Cassius Alvarez MD Primary Care Provider Unavail able [facility], Pcp Primary Care Provider Unavailabl Cassius Heaton MD Primary Care Provider Unavail able [facility], Pcp Primary Care Provider Unavailabl Cassius Heaton MD Primary Care Provider Unavail able Encounter Details Date Type Department Care Team Description 03/17/2013 Pediatric Oncology Nurse Report Medical Records [address] [place] [id number] Kiya Small Social History Tobacco Use Types Packs/Day Years [...] documented as of this encounter Care Teams Fireworks Assembly Supervisor Relationship Specialty Start Date End Date Kenny [...]
--- OUTSIDE RECORDS SUMMARY | 2024-09-11 19:15 | XMS_ITS | Encounter Summary ---
Author Organization [facility] Address [address] [place] [address] Care Team Providers Care Social Work Msw Name Role Phone Neli Andrews MD Primary Care Provider Debora Brian Johnston PA-C Primary Care Provider Unavail able Casisus Alvarez MD Primary Care Provider Unavail able [facility], Pcp Primary Care Provider UnavailCassius Schmitz MD Primary Care Provider Unavail able [facility], Pcp Primary Care Provider UnavailCassius Schmitz MD Primary Care Provider Unavail able Encounter Details Date Type Department Care Team Description 04/07/2019 Orders Only Medical Records [address] [place] [address] Dayana Frost MD [address] [place] [phone] Social History Tobacco Use Types Packs/Day [...] Name Priority Date/Time Associated Diagnosis Comments OUTSIDE SLEEP STUDY Routine 04/05/2019 documented in this encounter Results * OUTSIDE SLEEP STUDY (04/05/2019) Dayana Frost MD PULMONOLOGY documented in this encounter Visit Diagnoses Not on filedocumented in this encounter Additional Health Concerns Infection Onset Date Last Indicated Resolved Time COVID-19 08/27/2021 08/28/2021 12/04/2021 9:44 AM EDT documented as of this encounter Care Teams Social Work Msw Relationship Specialty Start Date End Date Neli Andrews MD PCP - General Internal Medicine 03/18/18 1 Brian Davis PA-C PCP - General Med/Peds 03/25/21 04/02/21 Cassius Alvarez MD PCP - General Internal Medicine 04/03/21 11/16/21 [facility], Pcp PCP - General Internal Medicine 11/17/21 03/02/22 Cassius Alvarez MD PCP - General Internal Medicine 03/03/22 07/08/22 [facility], Pcp PCP - General Internal Medicine 07/09/22 01/19/23 Cassius Alvarez MD PCP - General Internal Medicine 01/20/23 documented as of this encounter
--- OUTSIDE RECORDS SUMMARY | 2024-09-11 19:15 | XMS_ITS | Encounter Summary ---
Author Organization [facility] Address [address] [place] [address] Care Team Providers Care Business Unit Director Name Role Event Security OfficerKenny Morales MD Primary Care Provider Unavailab Neli Anderson MD Primary Care Provider Debora Brian Johnston PA-C Primary Care Provider Unavail able Cassius Alvarez MD Primary Care Provider Unavail able [facility], Pcp Primary Care Provider Unavailabl Cassius Heaton MD Primary Care Provider Unavail able [facility], Pcp Primary Care Provider Unavailabl e Cassius Alvarez MD Primary Care Provider Unavail able Encounter Details Date Type Department Care Team Description 03/17/2013 Hardness Tester Report Medical Records [address] [place] [phone] Donald Wall PA-C Social History Tobacco Use Types Packs/Day Years [...] documented as of this encounter Care Teams Business Unit Director Relationship Specialty Start Date End Date Kenny [...] PCP - General Internal Medicine 03/03/22 07/08/22 [facility], Pcp PCP - General Internal Medicine 07/09/22 01/19/23 Cassius Alvarez MD PCP - General Internal Medicine 01/20/23 documented as of this encounter
--- OUTSIDE RECORDS SUMMARY | 2024-09-11 19:15 | XMS_ITS | Encounter Summary ---
Author Organization [facility] Address [address] [place] [address] Care Team Providers Care Polymer Chemist Name Role Water Meter MechanicKenny Morales MD Primary Care Provider Unavailab Neli Anderson MD Primary Care Provider Debora Brian Johnston PA-C Primary Care Provider Unavail able Cassius Alvarez MD Primary Care Provider Unavail able [facility], Pcp Primary Care Provider UnavailCassius Schmitz MD Primary Care Provider Unavail able [facility], Pcp Primary Care Provider UnavailCassius Schmitz MD Primary Care Provider Unavail able Encounter Details Date Type Department Care Team Description 10/03/2014 [facility] Medical Records [address] [place] [address] Alfreda Morelos PA-C Social History Tobacco Use Types Packs/Day [...] documented as of this encounter Care Teams Polymer Chemist Relationship Specialty Start Date End Date Kenny [...]
--- OUTSIDE RECORDS SUMMARY | 2024-09-11 19:15 | XMS_ITS | Encounter Summary ---
Author Organization [facility] Address [address] [place] [address] Care Team Providers Care Gas Fitter Name Role Supervisor Concrete Pipe PlantKenny Morales MD Primary Care Provider Unavailab Neli Anderson MD Primary Care Provider Debora Brian Johnston PA-C Primary Care Provider Unavail able Cassius Alvarez MD Primary Care Provider Unavail able [facility], Pcp Primary Care Provider UnavailCassius Schmitz MD Primary Care Provider Unavail able [facility], Pcp Primary Care Provider Unavailabl Cassius Heaton MD Primary Care Provider Unavail able Encounter Details Date Type Department Care Team Description 08/15/2014 Marine Structural Designer Report Medical Records [address] [place] [address] Momo Murphy Social History Tobacco Use Types Packs/Day Years [...] documented as of this encounter Care Teams Gas Fitter Relationship Specialty Start Date End Date Kenny [...]
--- OUTSIDE RECORDS SUMMARY | 2024-09-11 19:15 | XMS_ITS | Encounter Summary ---
Author Organization [facility] Address [address] [place] [address] Care Team Providers Care Machine Cementer And Folder Name Role Computer Graphics IllustratorKenny Morales MD Primary Care Provider Unavailab Neli Anderson MD Primary Care Provider Debora Brian Johnston PA-C Primary Care Provider Unavail able Cassius Alvarez MD Primary Care Provider Unavail able [facility], Pcp Primary Care Provider Unavailabl Cassius Heaton MD Primary Care Provider Unavail able [facility], Pcp Primary Care Provider Unavailabl e Cassius Alvarez MD Primary Care Provider Unavail able Encounter Details Date Type Department Care Team Description 05/30/2014 Spectrographic Analyst Report Medical Records [address] [place] [address] Sanjuanita Harrison Social History Tobacco Use Types Packs/Day Years [...] as of this encounter Care Teams Machine Cementer And Folder Relationship Specialty Start Date End Date Kenny [...]
--- OUTSIDE RECORDS SUMMARY | 2024-09-11 19:15 | XMS_ITS | Encounter Summary ---
Author Organization [facility] Address [address] [place] [address] Care Team Providers Care Hazardous Material Specialist Name Role Phone Neli Andrews MD Primary Care Provider Edbora Brian Johnston PA-C Primary Care Provider Unavail able Cassius Alvarez MD Primary Care Provider Unavail able [facility], Pcp Primary Care Provider UnavailCassius Schmitz MD Primary Care Provider Unavail able [facility], Pcp Primary Care Provider UnavailCassius Schmitz MD Primary Care Provider Unavail able Encounter Details Date Type Department Care Team Description 08/25/2019 Hospital Medical Records [address] [place] [address] Dayana Frost MD [address] [place] [phone] Social History Tobacco Use Types Packs/Day [...] documented as of this encounter Care Teams Hazardous Material Specialist Relationship Specialty Start Date End Date Neli [...]
--- OUTSIDE RECORDS SUMMARY | 2024-09-11 19:15 | XMS_ITS | Encounter Summary ---
Author Organization [facility] Address [address] [place] [address] Care Team Providers Care Cell Tuber Machine Name Role Phone Neli Andrews MD Primary Care Provider Debora Brian Johnston PA-C Primary Care Provider Unavail able Cassius Alvarez MD Primary Care Provider Unavail able [facility], Pcp Primary Care Provider UnavailCassius Schmitz MD Primary Care Provider Unavail able [facility], Pcp Primary Care Provider UnavailCassius Schmitz MD Primary Care Provider Unavail able Encounter Details Date Type Department Care Team Description 08/17/2019 Orders Only Medical Records [address] [place] [address] Dayana Frost MD [address] [place] [phone] Social History Tobacco Use Types Packs/Day [...] Name Priority Date/Time Associated Diagnosis Comments OUTSIDE PLAIN FILM Routine 08/15/2019 documented in this encounter Results * OUTSIDE PLAIN FILM (08/15/2019) Dayana Frost MD RADIOLOGY documented in this encounter Visit Diagnoses Not on filedocumented in this encounter Additional Health Concerns Infection Onset Date Last Indicated Resolved Time COVID-19 08/27/2021 08/28/2021 12/04/2021 9:44 AM EDT documented as of this encounter Care Teams Cell Tuber Machine Relationship Specialty Start Date End Date Neli [...]
--- OUTSIDE RECORDS SUMMARY | 2024-09-11 19:15 | XMS_ITS | Encounter Summary ---
Author Organization [facility] Address [address] [place] [address] Care Team Providers Care Diesel Engine Specialist Name Role Farm Products ShipperKenny Morales MD Primary Care Provider Unavailab Neli Anderson MD Primary Care Provider Debora Brian Johnston PA-C Primary Care Provider Unavail able Cassius Alvarez MD Primary Care Provider Unavail able [facility], Pcp Primary Care Provider UnavailCassius Schmitz MD Primary Care Provider Unavail able [facility], Pcp Primary Care Provider Unavailabl Cassius Heaton MD Primary Care Provider Unavail able Encounter Details Date Type Department Care Team Description 07/04/2014 Research Assistant Report Medical Records [address] [place] [phone] Momo Murphy Social History Tobacco Use Types [...] documented as of this encounter Care Teams Diesel Engine Specialist Relationship Specialty Start Date End Date Kenny [...]
--- OUTSIDE RECORDS SUMMARY | 2024-09-11 19:15 | XMS_ITS | Encounter Summary ---
Author Organization [facility] Address [address] [place] [address] Care Team Providers Care Field Gauger Name Role Phone Neli Andrews MD Primary Care Provider Debora Brian Johnston PA-C Primary Care Provider Unavail able Cassius Alvarez MD Primary Care Provider Unavail able [facility], Pcp Primary Care Provider UnavailCassius Schmitz MD Primary Care Provider Unavail able [facility], Pcp Primary Care Provider UnavailCassius Schmitz MD Primary Care Provider Unavail able Encounter Details Date Type Department Care Team Description 08/28/2019 [facility] Medical Records [address] [place] [phone] Mela Rutledge PA-C Social History Tobacco Use Types Packs/Day [...] documented as of this encounter Care Teams Field Gauger Relationship Specialty Start Date End Date Neli [...]
--- OUTSIDE RECORDS SUMMARY | 2024-09-11 19:15 | XMS_ITS | Encounter Summary ---
Author Organization [facility] Address [address] [place] [address] Care Team Providers Care Anesthetist Name Role Bell Hole DiggerKenny Morales MD Primary Care Provider Unavailab Neli Anderson MD Primary Care Provider Debora Brian Johnston PA-C Primary Care Provider Unavail able Cassius Alvarez MD Primary Care Provider Unavail able [facility], Pcp Primary Care Provider UnavailCassius Schmitz MD Primary Care Provider Unavail able [facility], Pcp Primary Care Provider UnavailCassius Schmitz MD Primary Care Provider Unavail able Encounter Details Date Type Department Care Team Description 07/10/2014 SCAN Medical Records [address] [place] [phone] Abstract, Provider Social History Tobacco Use Types [...] Name Priority Date/Time Associated Diagnosis Comments OUTSIDE LAB Routine 05/17/2014 documented in this encounter Results * OUTSIDE LAB (05/17/2014) Provider Abstract LAB documented in this encounter Visit Diagnoses Not on filedocumented in this encounter Additional Health Concerns Infection Onset Date Last Indicated Resolved Time COVID-19 08/27/2021 08/28/202112/0412/04/2021 9:44 AM EDT documented as of this encounter Care Teams Anesthetist Relationship Specialty Start Date End Date Kenny [...]
--- OUTSIDE RECORDS SUMMARY | 2024-09-11 19:15 | XMS_ITS | Encounter Summary ---
Author Organization [facility] Address [address] [place] [address] Care Team Providers Care Electric Stove Mechanic Name Role Gold Frame AssemblerKenny Morales MD Primary Care Provider Unavailab Neli Anderson MD Primary Care Provider Debora Brian Johnston PA-C Primary Care Provider Unavail able Cassius Alvarez MD Primary Care Provider Unavail able [facility], Pcp Primary Care Provider Unavailabl Cassius Heaton MD Primary Care Provider Unavail able [facility], Pcp Primary Care Provider Unavailabl e Cassius Alvarez MD Primary Care Provider Unavail able Encounter Details Date Type Department Care Team Description 06/19/2014 HEEL SCORER/[place] Report Medical Records [address] [place] [address] Abstract, Provider Social History Tobacco Use Types [...] documented as of this encounter Care Teams Electric Stove Mechanic Relationship Specialty Start Date End Date Kenny [...]
--- OUTSIDE RECORDS SUMMARY | 2024-09-11 19:15 | XMS_ITS | Encounter Summary ---
[facility] Address [address] [place] [address] Care Team Providers Care Link Trainer Mechanic Name Role Natural Resources EngineerKenny Morales MD Primary Care Provider Unavailab Neli Anderson MD Primary Care Provider Debora Brian Johnston PA-C Primary Care Provider Unavail able Cassius Alvarez MD Primary Care Provider Unavail able [facility], Pcp Primary Care Provider Unavailabl Cassius Heaton MD Primary Care Provider Unavail able [facility], Pcp Primary Care Provider Unavailabl e Cassius Alvarez MD Primary Care Provider Unavail able Reason for Referral * Specialist (Routine) - Authorized/Booked Specialty Diagnoses / Procedures Referred By Contrubi t Referred To Contact SLEEP STUDY Procedures REFERRAL TO EXTERNAL HOME SLEEP STUDY Kenny Morales MD [address] [place] [address] [place] [phone] External Sleep Referral ID Status Reason Start Date Expiration Date V isits Requested Visits Authorized SEE REVIEW 11/08/13 Authorized/ Booked 11/07/2013 02/07/2014 1 1 Reason for Visit * Reason Onset Date Comments Testing 11/06/2013 Sleep Study Encounter Details Date Type Department Care Team Description 11/06/2013 [facility] [address] [phone] Kenny Morales MD Testing (Sleep Study) Social History Tobacco Use Types Packs/Day Years [...] encounter Miscellaneous Notes * Telephone Encounter - Radha Dede - 11/07/2013 1:49 PM EDT Please sign the PENDED order here for the external home study. Prior auth has already been obtained. Auth # [id number] Effective 11/07/13-01/05/14 To be done at [facility] * Telephone Encounter - Kenny Morales MD - 11/06/2013 10:56 AM EDT Yes * Telephone Encounter - Radha Aguayo - 11/06/2013 9:53 AM EDT [employer] denied request for In Lab Sleep Study, however they may approve a Home Sleep Study, is this ok? Radha Prior Auths documented in this encounter Plan of Treatment Not on file documented as of this encounter Visit Diagnoses Not on filedocumented in this encounter Additional Health Concerns Infection Onset Date Last Indicated Resolved Time COVID-19 08/27/2021 08/28/2021 12/04/2021 9:44 AM EDT documented as of this encounter Care Teams Link Trainer Mechanic Relationship Specialty Start Date End Date Kenny Morales MD PCP - General Internal Medicine 12/31/11 03/17/18 Neli Andrews MD PCP - General Internal Medicine 03/18/18 1 Brian Davis PA-C PCP - General Med/Peds 03/25/21 04/02/21 Cassius Alvarez MD PCP - General Internal Medicine 04/03/21 11/16/21 [facility], Pcp PCP - General Internal Medicine 11/17/21 03/02/22 Cassius Alvarez MD PCP - General Internal Medicine 03/03/22 07/08/22 [facility], Pcp PCP - General Internal Medicine 07/09/22 01/19/23 Cassius Alvarez MD PCP - General Internal Medicine 01/20/23 documented as of this encounter
--- OUTSIDE RECORDS SUMMARY | 2024-09-11 19:15 | XMS_ITS | Encounter Summary ---
Author Organization [facility] Address [address] [place] [address] Care Team Providers Care Solar Pv Installer Name Role Master BrewerKenny Morales MD Primary Care Provider Unavailab Neli Anderson MD Primary Care Provider Debora Brian Johnston PA-C Primary Care Provider Unavail able Cassius Alvarez MD Primary Care Provider Unavail able [facility], Pcp Primary Care Provider UnavailCassius Schmitz MD Primary Care Provider Unavail able [facility], Pcp Primary Care Provider Unavailabl Cassius Heaton MD Primary Care Provider Unavail able Encounter Details Date Type Department Care Team Description 09/11/2014 Wagon Driver Salesperson Report Medical Records [address] [place] [id number] Martinez Murphy Social History Tobacco Use Types Packs/Day [...] documented as of this encounter Care Teams Solar Pv Installer Relationship Specialty Start Date End Date Kenny [...]
--- OUTSIDE RECORDS SUMMARY | 2024-09-11 19:15 | XMS_ITS | Patient Health Record ---
Author Organization [facility] Address [address] [place] [address] REASON FOR REFERRAL No Information PLAN OF TREATMENT No Information Insurance Providers Payer Name Payer Address Payer Phone Subscriber Number Group Number Insured Name Patient Relationship to Insured Coverage Start Date Coverage End Date [employer]/Angie or Options [address] [place] [id number] [phone] [id number] DAINA ARENAS Self - patient is the insured
--- OUTSIDE RECORDS SUMMARY | 2024-09-11 19:15 | XMS_ITS | Encounter Summary ---
Author Organization [facility] Address [address] [place] [address] Care Team Providers Care Steam And Gas Turbines Assembler Name Role Outreach Team MemberKenny Morales MD Primary Care Provider Unavailab Neli Anderson MD Primary Care Provider Debora Brian Johnston PA-C Primary Care Provider Unavail able Cassius Alvarez MD Primary Care Provider Unavail able [facility], Pcp Primary Care Provider Unavailabl Cassius Heaton MD Primary Care Provider Unavail able [facility], Pcp Primary Care Provider Unavailabl e Cassius Alvarez MD Primary Care Provider Unavail able Encounter Details Date Type Department Care Team Description 04/24/2013 Rinkman Report Medical Records [address] [place] [id number] Silvino Valero MD Social History Tobacco Use Types Packs/Day [...] documented as of this encounter Care Teams Steam And Gas Turbines Assembler Relationship Specialty Start Date End Date [...]
--- OUTSIDE RECORDS SUMMARY | 2024-09-11 19:15 | XMS_ITS | Encounter Summary ---
Author Organization [facility] Address [address] [place] [address] Care Team Providers Care Hat Checker Name Role Case ConsultantKenny Tom MD Primary Care Provider Unavailab Neli Anderson MD Primary Care Provider Debora Brian Johnston PA-C Primary Care Provider Unavail able Cassius Alvarez MD Primary Care Provider Unavail able [facility], Pcp Primary Care Provider Unavailabl Cassius Heaton MD Primary Care Provider Unavail able [facility], Pcp Primary Care Provider Unavailabl e Cassius Alvarez MD Primary Care Provider Unavail able Reason for Visit * Reason Onset Date Comments Call From Pharmacy 07/13/2014 Encounter Details Date Type Department Care Team Description 07/13/2014 Telephone Medicine/Pediatrics - [address] [id number] Kenny Tom MD Call From Pharmacy Social History Tobacco Use Types Packs/Day Years [...] encounter Miscellaneous Notes * Telephone Encounter - Kenny Tom MD - 07/13/2014 4:29 PM EST Tablet prescribed * Telephone Encounter - Yandy Torres L.P.N. - 07/13/2014 4:25 PM EST Msg to PCP * Telephone Encounter - Stephanie Pulidoilly - 07/13/2014 4:17 PM EST What is the name of the medication patient is having a problem with?: CIPRO LIQUID What is the problem?: LIQUID IS NOT IN STOCK, TABLETS ARE AVAILABLE Is the patient calling about the problem? NO If the patient is not the caller who is? DI / PHARMACY Is this a NEW medication?: YES How long has the patient been taking this medication? NA Who prescribed this medication for the patient? DR TOM Who is patients PCP?: DR TOM Payor: [facility]/[employer] / Plan: [employer] [place] $15 / Product Type: HMO Mcn-yon-Vliujhr documented in this encounter Plan of Treatment Not on file documented as of this encounter Visit Diagnoses Not on filedocumented in this encounter Additional Health Concerns Infection Onset Date Last Indicated Resolved Time COVID-19 08/27/2021 08/28/2021 12/04/2021 9:44 AM EDT documented as of this encounter Care Teams Hat Checker Relationship Specialty Start Date End Date Kenny Tom MD PCP - General Internal Medicine 12/31/11 [...]
--- OUTSIDE RECORDS SUMMARY | 2024-09-11 19:15 | XMS_ITS | Encounter Summary ---
Author Organization [facility] Address [address] [place] [address] Care Team Providers Care Hr Manager Name Role Manager GardenKenny Morales MD Primary Care Provider Unavailab Neli Anderson MD Primary Care Provider Debora Brian Johnston PA-C Primary Care Provider Unavail able Cassius Alvarez MD Primary Care Provider Unavail able [facility], Pcp Primary Care Provider UnavailCassius Schmitz MD Primary Care Provider Unavail able [facility], Pcp Primary Care Provider UnavailCassius Schmitz MD Primary Care Provider Unavail able Encounter Details Date Type Department Care Team Description 09/06/2014 Sound Technician Supervisor Report Medical Records [address] [place] [address] Abstract, Provider Social History Tobacco Use Types [...] documented as of this encounter Care Teams Hr Manager Relationship Specialty Start Date End Date Kenny [...]
--- OUTSIDE RECORDS SUMMARY | 2024-09-11 19:15 | XMS_ITS | Encounter Summary ---
Author Organization [facility] Address [address] [place] [address] Care Team Providers Care Correctional Supervising Cook Name Role Clinical CytogeneticistKenny Morales MD Primary Care Provider Unavailab Neli Anderson MD Primary Care Provider Debora Brian Johnston PA-C Primary Care Provider Unavail able Cassius Alvarez MD Primary Care Provider Unavail able [facility], Pcp Primary Care Provider Unavailabl Cassius Heaton MD Primary Care Provider Unavail able [facility], Pcp Primary Care Provider Unavailabl e Cassius Alavrez MD Primary Care Provider Unavail able Encounter Details Date Type Department Care Team Description 03/27/2013 Supervisor Shearing Report Medical Records [address] [place] [id number] Silvino Valero MD Social History Tobacco Use [...] documented as of this encounter Care Teams Correctional Supervising Cook Relationship Specialty Start Date End Date Kenny [...]
--- OUTSIDE RECORDS SUMMARY | 2024-09-11 19:15 | XMS_ITS | Encounter Summary ---
Author Organization [facility] Address [address] [place] [address] Care Team Providers Care Timing Adjuster Name Role General Milling SuperintendentKenny Morales MD Primary Care Provider Unavailab Neli Anderson MD Primary Care Provider Debora Brian Johnston PA-C Primary Care Provider Unavail able Cassius Alvarez MD Primary Care Provider Unavail able [facility], Pcp Primary Care Provider UnavailCassius Schmitz MD Primary Care Provider Unavail able [facility], Pcp Primary Care Provider Unavailabl Cassius Heaton MD Primary Care Provider Unavail able Encounter Details Date Type Department Care Team Description 07/13/2013 Release of Information Medical Records [address] [place] [id number] Abstract, Provider Social History Tobacco Use Types [...] documented as of this encounter Care Teams Timing Adjuster Relationship Specialty Start Date End Date Kenny [...]
--- OUTSIDE RECORDS SUMMARY | 2024-09-11 19:15 | XMS_ITS | Encounter Summary ---
Author Organization [facility] Address [address] [place] [address] Care Team Providers Care Operating Room Tech Name Role Pharmacy SalespersonKenny Morales MD Primary Care Provider Unavailab Neli [...] Details Date Type Department Care Team Description 05/02/2014 Knot Bumper Report Medical Records [address] [place] [address] Sanjuanita Harrison Social History Tobacco Use Types [...] documented as of this encounter Care Teams Operating Room Tech Relationship Specialty Start Date End Date Kenny [...]
--- OUTSIDE RECORDS SUMMARY | 2024-09-11 19:16 | XMS_ITS | Encounter Summary ---
Author Organization [facility] Address [address] [place] [address] Care Team Providers Care Label Fuser Tender Name Role Phone Cassius Alvarez MD Primary Care Provider Unavail able [facility], Pcp Primary Care Provider Unavailabl e Cassius Alvarez MD Primary Care Provider Unavail able Encounter Details Date Type Department Care Team Description 05/12/2022 Pt. Non Urgent Medical Question OBGYN - [place] [address] [place] [address] Jewels Rogers CNM [address], [place] [id number] Social History Tobacco Use Types Packs/Day Years Used Date Smoking Tobacco: Never Smokeless Tobacco: Never Alcohol Use Standard Drinks/Week Comments Not Currently 0 (1 standard drink = 0.6 oz pur e alcohol) very rare Sex Assigned at Date Recorded Female 01/25/2022 8:35 PM EDT Job Start Date Occupation Industry Not on file Not on file Not on file COVID-19 Exposure Response Date Recorded In the last 10 days, have yo u been in contact with someone who was confirmed or suspected to have Coronavirus/COVID-19? No / Unsure 05/13/2022 10:53 AM EDT documented as of this encounter Miscellaneous Notes * Telephone Encounter - Rani Hughes - 05/12/2022 1:49 PM EDTFrom: Jia Valdez To: Jewels Rogers CNM Sent: 05/12/2022 1:46 PM EDT Subject: Primary follow up Daniela, so I wanted to let you know that I had an appointment with my primary (Dr Alvarez at [facility] through [facility]) this morning and he doesn???t seem to think it???s a low sugar thing, he seems to think it could be a sodium imbalance or hypotension because my blood pressure was 96/64 which his nurse said was normal but Dr Alvarez had asked if it???s been running low and I said not that I was aware of. He also said that he???d like me to go in for an ultrasound of my heart that he put an order in for so I???m waiting for a call to schedule that and possibly a consultation with cardiology depending on the outcome of the ultrasound. He said he doesn???t think it???s cardiac, but would hate to miss something if it was. He also ran some blood tests. He did some pane l that I forgot the name of, as well as vitamin b12 and a liver function test. I will fill you in more when I know the results of the blood work and when I hear about when the ultrasound will be. I do have a blood pressure machine that my mom had ordered for herself and my dad that he would like me to use to monitor my blood pressure when I feel that off feeling. I???ll keep you updated as I hear more, I just wanted to keep you in the loop! :) -Jia documented in this encounter Plan of Treatment Not on file documented as of this encounter Visit Diagnoses Not on filedocumented in this encounter Care Teams Label Fuser Tender Relationship Specialty Start Date End Date Cassius Alvarez MD PCP - General Internal Medicine 03/03/22 07/08/22 [facility], Pcp PCP - General Internal Medicine 07/09/22 01/19/23 Cassius Alvarez MD PCP - General Internal Medicine 01/20/23 documented as of this encounter
--- OUTSIDE RECORDS SUMMARY | 2024-09-11 19:16 | XMS_ITS | Encounter Summary ---
Author Organization [facility] Address [address] [place] [address] Care Team Providers Care Film Or Tape Librarian Name Role Phone Neli Andrews MD Primary Care Provider Debora Brian Johnston PA-C Primary Care Provider Unavail able Cassius Alvarez MD Primary Care Provider Unavail able Count Includes [facility], Pcp Primary Care Provider UnavailCassius Schmitz MD Primary Care Provider Unavail able Count Includes [facility], Pcp Primary Care Provider UnavailCassius Schmitz MD Primary Care Provider Unavail able Reason for Visit * Reason Onset Date Comments Medical Records 05/13/2020 MERGE DUPLICATE ACCOUNT Encounter Details Date Type Department Care Team Description 05/13/2020 Telephone Medicine/Pediatrics [address] [phone] Neli Andrews MD Medical Records (MERGE DUPLICATE ACCOUNT) Social History Tobacco Use Types Packs/Day Years [...] have Coronavirus / COVID-19? Unable to assess 05/16/2020 6:18 AM EST documented as of this encounter Miscellaneous Notes * Telephone Encounter - Meera Garcia - 05/13/2020 10:44 AM EST Patient has a duplicate account. Please merge with this one. documented in this encounter Plan of Treatment Not on file documented as of this encounter Visit Diagnoses Not on filedocumented in this encounter Additional Health Concerns Infection Onset Date Last Indicated Resolved Time COVID-19 08/27/2021 08/28/2021 12/04/2021 9:44 AM EDT documented as of this encounter Care Teams Film Or Tape Librarian Relationship Specialty Start Date End Date [...]
--- OUTSIDE RECORDS SUMMARY | 2024-09-11 19:16 | XMS_ITS | Clinical Summary ---
Author Organization [facility] Address [address] [place] [address] Phone Care Team Providers Care Supervisor Contact And Service Clerks Name Role Phone Cassius Alvarez MD Primary Care Provider [phone] Allergies Active Allergy Reactions Criticality Noted Date [...] script per blood sugar check twice daily 04/13/20 24 025 Active blood-glucose meter kit 1 Kit by Does not apply route daily. 04/10/20 24 Active multivitamin (MULTIPLE VITAMINS ORAL) Take 1 Capsule by mouth daily. 04/07/20 24 Active escitalopram (LEXAPRO) 20 mg tablet Take 1 tablet (20 mg total) by mouth 1 (one) time each day. Active risperiDONE (RisperDAL) 0.5 mg tablet Take 1 tablet (0.5 mg total) by mouth 2 (two) times a day. Active pyridoxine (VITAMIN B-6) 25 mg tablet TAKE 1 TABLET BY MOUTH FOUR TIMES DAILY BEFORE MEALS AND AT NIGHT 04/13/20 22 Active albuterol HFA (PROAIR HFA ; PROVENTIL HFA ; VENTOLIN HFA) 90 mcg/actuation inhaler Inhale 2 Puffs into the lungs every 4 hours as needed for Cough or Wheezing for up to 30 days. 09/02/19 22 Active mirtazapine (REMERON) 15 mg tablet 22.5 mg. 06/18/20 21 Active hydrOXYzine HCL (ATARAX) 25 mg tablet TAKE 2 TABLETS BY MOUTH AT BEDTIME. MAY TAKE ADDITIONAL 25 MG IF AWAKE IN 1 HOUR 07/22/19 21 Active mometasone (NASONEX) 50 mcg/actuation nasal spray 2 Sprays by Nasal route daily for 30 days. Replaces flonase 08/25/19 18 Active albuterol 2.5 mg /3 mL (0.083 %) nebulizer solution Take 1 Vial by nebulization every 4 hours as needed. Active fluticasone furoate-vilanteroL (Breo Ellipta) 100-25 mcg/dose inhaler INHALE 1 PUFF INTO THE LUNGS DAILY Active acetaminophen (TYLENOL) 500 mg tablet 07/22/19 24 Active ARIPiprazole (ABILIFY) 5 mg tablet Take 1 tablet (5 mg total) by mouth. at bedtime. Active OneTouch Ultra Test test strip USE ONE GLUCOSE STRIP TO CHECK BLOOD SUGAR TWICE DAILY 04/13/20 24 Active buPROPion XL (WELLBUTRIN XL) 150 mg 24 hr tablet 06/11/20 24 Active esomeprazole (NexIUM) [address] capsule Take 1 capsule (40 mg total) by mouth 1 (one) time each day before breakfast. Do not open capsule. 90 each 06/19/20 24 025 Active clonazePAM (KlonoPIN) 0.5 mg tablet Take 1 tablet (0.5 mg total) by mouth 1 (one) time each day. 07/06/20 24 Active norethindrone (RISSA,AYDE,HEAT HER,MICRONOR) 0.35 mg tablet Take 1 tablet (0.35 mg total) by mouth 1 (one) time each day. 84 tablet 1 07/13/19 25 Active acarbose (Precose) 25 mg tablet Take 1 tablet (25 mg total) by mouth 3 (three) times a day with meals. 90 tablet 11 07/25/19 25 026 Active ondansetron ODT (ZOFRAN-ODT) 4 mg disintegrating tabletIndications: Nausea Dissolve 1 tablet (4 mg total) on top of the tongue every 8 (eight) hours if needed for nausea or vomiting. 20 tablet 2 09/06/19 25 Active ondansetron ODT (ZOFRAN-ODT) 4 mg disintegrating tablet DISSOLVE 1 TABLET BY MOUTH ON THE TOP OF THE TONGUE EVERY 8 HOURS IF NEEDED FOR NAUSEA OR VOMITING FOR UP TO 7 DAYS 20 tablet 2 07/25/19 25 025 Discontin ued(Reord er) Active Problems Problem Noted Date Diagnosed Date [...] 06/17/2022 Overview (04/26/2024): 06/17/2022 seen in [facility] ED and [facility] triage for SOB, neb treatment administered. In [...] Bladder spasms 04/22/2022 Overview (04/26/2024): Went to [facility] on 03/25- discharged stable, advised to [...] cyst 11/25/2018 Overview (04/26/2024): 11/04/18 Presented to [facility] for abdominal pain. CT scan showed [...] her ferritin; follow-up in a few months [facility] Polysomnogram: Date 04/05/2019; Wt [...] 03/31/2013 Overview (04/26/2024): Has been seen [facility], rheumatology Dr. Valero as well as Dr. Murphy, Dr. Finch, now seeing Dr Brady at [facility]; also Dr Sanders 02/05/2022 under the care of [facility] in [place]. CBC, ESR, CRP, creatinine, AST and ALT ordered at that visit. Plan is to continue with Cimzia 400 mg SC monthly. OCD (obsessive compulsive disorder) 11/30/2012 Depression 10/21/2012 Overview (04/26/2024): History SI- IP Admits Nephrolithiasis 01/12/2012 Overview (04/26/2024): Noted December 2011 Last Assessment & Plan: [facility] 12/21 2 mm right ureteric stone ADHD (attention deficit hyperactivity disorder) 07/24/2011 Anxiety 07/24/2011 Asthma 07/24/2011 Migraine with aura 07/24/2011 Overview (04/26/2024): Dr Flowers Comments Yes Encounters Date Type Department Care Team Description 08/21/2024 Lab Requisition [facility] - Main Lab [address] [facility] [place] [address] Donald Wall, [place] Hydronephrosis with renal and ureteral calculous obstruction 08/14/2024 8:30 AM EST Office Visit Bariatric Surgery - [place] [address] [address] Dayana Frost MD S/P bariatric surgery (Primary Dx); Hx of hypoglycemia; Dumping syndrome; Obesity, Class II, BMI 35-39.9 08/01/2024 7:52 AM EST - 08/01/2024 11:59 PM EST Hospital Encounter [facility] Nuclear Medicine [address] [place] [phone] S/P bariatric surgery Discharge Disposition: Home or Self Care 07/26/2024 10:30 AM EST Office Visit Obstetrics and Gynecology - [address] [phone] Shannon He MD Breakthrough bleeding on control pills (Primary Dx); Paratubal cyst 07/19/2024 Telephone Bariatric Surgery - [address] [phone] Danny Thomas MD 07/19/2024 Telephone Bariatric Surgery - [address] [address] Dayana Frost MD 07/17/2024 Telephone Obstetrics and Gynecology - [address] [phone] Shannon He MD Request For Order(s) 07/16/2024 Telephone Gastroenterology - [address] [phone] Anny Vogel PA 07/13/2024 8:30 AM EST Office Visit Bariatric Surgery - [address] [address] Dayana Frost MD S/P bariatric surgery (Primary Dx); Class 2 severe obesity with serious comorbidity and body mass index (BMI) of 35.0 to 35.9 in adult, unspecified obesity type ([facility]); Nausea; Gastroesophageal reflux disease, unspecified whether esophagitis present 06/19/2024 Telephone Obstetrics and Gynecology - [place] [address] [place] [address] Shannon He MD 06/17/2024 12:12 AM EST - 06/17/2024 5:46 AM EST Emergency [facility] Emergency [address] [place] [phone] Flank pain (Primary Dx); Left lower quadrant abdominal pain; Cysts of both ovaries Discharge Disposition: Home or Self Care 06/16/2024 Telephone Bariatric Surgery [facility] [address] [phone] Dayana Frost MD Emerency room visit (Patient is not feeling well) 06/15/2024 1:30 PM EST Office Visit Bariatric Surgery [facility] [address] [phone] Dayana Frost MD Kidney stone (Primary Dx); Hx of iron deficiency anemia; S/P bariatric surgery; Hx of hypoglycemia; Dumping syndrome 06/15/2024 Telephone Bariatric Surgery [facility] [address] [phone] Dayana Frost MD from Last 3 Months Immunizations Name Administration Dates Next Due DTP 04/25/1993,02/23/1993,1992 [id number] (Pentacel) 2mo to less than 5yo 02/23/1994,04/25/1993,02/23/1993,12/24 [...] Care Team (Late st Contact Info) Description 10/05/2024 11:30 AM EDT Office Visit Gastroenterology - [place] 175 [facility] 175 [facility] [address] [place] [address] Anny Vogel PA 175 [facility] [address] [place] [address] 10/16/2024 8:30 AM EDT Office Visit Bariatric Surgery - [place] 175 [facility] [address] [place] [address] Dayana Frost MD [address] [address] 10/17/2024 8:00 AM EDT Appointment [facility] Pain Management [address] [place] [phone] Blanco Sanders DO [address] [address] 11/29/2024 1:30 PM EDT Office Visit Obstetrics and Gynecology - [place] [address] [place] [address] Jewels Rogers, CN [address] [place] [address] Health Maintenance Due Date Last Done Comments [...] LINDO LAB BLOOD ORDERABLES Final Res ult [facility] [address] [place] [address], [place] [phone] * [place] [facility] (08/01/2024 10:23 [...] Signed Date: 08/06/2024 10:00 ET Workstation ID: [id number] Transcribed By: Self Edit Transcribed Date: 08/06/2024 [...] Signed Date: 08/06/2024 10:00 ET Workstation ID: [id number] Transcribed By: Self Edit Transcribed Date: 08/06/2024 [...] Tavarez MD on 06/17/2024 04:04:54 us Adilson CHEW US PROCEDURES Final Result * CT Abdomen [...] Tavarez MD on 06/17/2024 01:42:[address] PROCEDURES Final Result * POC , urine manually resulted (06/16/2024 6:20 PM EST) Pathologist [facility] HCG, Ur POC Negative Negative POC hCG Int QC Pass? Yes Yes LOT NUMBER POC [id number] Urine Urine specimen obtained by clean catch procedure / Unknown 06/16/2024 6:20 PM EST Timothy LINDO POINT OF CARE TEST ENTER/EDIT ORDERABLES Final Result * (ABNORMAL) Urinalysis with reflex microscopic and culture (06/16/2024 6:16 PM EST) [facility] Specific [place] Urine 1.022 1.003 - 1.030 LAB URINALYSIS - AUTOMATED METHOD 06/16/2024 7:21 PM [facility] pH, Urine 6.0 5.0 - 8.0 pH LAB URINALYSIS - AUTOMATED METHOD 06/16/2024 7:21 PM [facility] Leukocytes, Urine Small(A) Negative LAB URINALYSIS - AUTOMATED METHOD 06/16/2024 7:21 PM [facility] Nitrite, Urine Negative Negative LAB URINALYSIS - AUTOMATED METHOD 06/16/2024 7:21 PM [facility] Protein, Urine Negative <=Trace mg/dL LAB URINALYSIS - AUTOMATED METHOD 06/16/2024 7:21 PM [facility] Glucose, Urine Negative Negative mg/dL LAB URINALYSIS - AUTOMATED METHOD 06/16/2024 7:21 PM [facility] Ketones, Urine Trace(A) Negative mg/dL LAB URINALYSIS - AUTOMATED METHOD 06/16/2024 7:21 PM [facility] Urobilinogen , Urine 1.0 0.2 - 1.0 mg/dL LAB URINALYSIS - AUTOMATED METHOD 06/16/2024 7:21 PM [facility] Bilirubin, Urine Negative Negative LAB URINALYSIS - AUTOMATED METHOD 06/16/2024 7:21 PM [facility] Blood, Urine Negative Negative LAB URINALYSIS - AUTOMATED METHOD 06/16/2024 7:21 PM [facility] RBC, Urine 4 0 - 4 /HPF 06/16/2024 7:21 PM [facility] WBC, Urine 5(H) 0 - 4 /HPF 06/16/2024 7:21 PM [facility] Squamous Epithelial, Urine >100(H) 0 - 60 /LPF 06/16/2024 7:21 PM [facility] Non-Squamous Epithelial, Urine Rare Transitional epithelial cells. /LPF 06/16/2024 7:21 PM [facility] Bacteria, Urine Few(A) Negative /HPF 06/16/2024 7:21 PM [facility] Hyaline Casts, Urine 1.0 0 - 3 /LPF 06/16/2024 7:21 PM [facility] Mucus, Urine Moderate None /HPF 06/16/2024 7:21 PM [facility] Urine Urine specimen obtained by clean catch procedure / Unknown Non-blood Collection / Unknown 06/16/2024 6:16 PM EST 06/16/2024 6:39 PM EST us Timothy LINDO LAB URINE ORDERABLES Final Re sult [facility] [address] [place] [address], [place] [phone] * [place] urine culture tube (06/16/2024 6:16 PM EST) Pathologist [facility] Extra Tube Hold for add-ons. 06/16/2024 8:01 PM EST [facility] Comment:Auto resulted. Urine Urine specimen obtained by clean catch procedure / Unknown Non-blood Collection / Unknown 06/16/2024 6:16 PM EST 06/16/2024 6:39 PM EST Timothy LINDO LAB URINE ORDERABLES Final Re sult Performing Organization Address City/[facility]/ZIP Co de Phone Number [facility] [address] [place] [address], [place] [phone] * Culture urine (06/16/2024 6:16 PM EST) Pathologist [facility] Culture, Urine <10,000 CFU/mL gram negative bacilli, insignificant count, no further workup 06/17/2024 12:22 PM EST [facility] Urine Urine specimen obtained by clean catch procedure / Unknown Non-blood Collection / Unknown 06/16/2024 6:16 PM EST 06/16/2024 7:21 PM EST Timothy LINDO LAB MICROBIOLOGY - GENERAL OR DERABLES Final Result Performing Organization Address City/[facility]/ZIP Co de Phone Number [facility] [address] [place] [address], [place] [phone] * (ABNORMAL) CBC auto differential (06/16/2024 6:14 PM EST) WBC 10.2 4.8 - 10.8 K/[facility] LAB HEMETOLOGY METHOD 06/16/2024 6:49 PM EST [facility] RBC 4.60 3.80 - 4.80 M/[facility] LAB HEMETOLOGY METHOD 06/16/2024 6:49 PM EST [facility] Hemoglobin 14.4 11.5 - 16.0 g/dL LAB HEMETOLOGY METHOD 06/16/2024 6:49 PM [facility] Hematocrit 43.6 35.0 - 47.0 % LAB HEMETOLOGY METHOD 06/16/2024 6:49 PM [facility] MCV 94.2 79.0 - 98.0 FL LAB HEMETOLOGY METHOD 06/16/2024 6:49 PM [facility] MCH 31.1 27.0 - 32.0 pcg LAB HEMETOLOGY METHOD 06/16/2024 6:49 PM [facility] MCHC 33.0 32.0 - 37.0 g/dL LAB HEMETOLOGY METHOD 06/16/2024 6:49 PM [facility] RDW 16.3(H) 11.0 - 15.0 % LAB HEMETOLOGY METHOD 06/16/2024 6:49 PM [facility] Platelets 315 130 - 400 K/mcL LAB HEMETOLOGY METHOD 06/16/2024 6:49 PM [facility] MPV 9.7 7.0 - 11.0 FL LAB HEMETOLOGY METHOD 06/16/2024 6:49 PM [facility] NRBC 0.0 <1.0 % LAB HEMETOLOGY METHOD 06/16/2024 6:49 PM [facility] NRBC Absolute 0.00 <0.10 K/mcL LAB HEMETOLOGY METHOD 06/16/2024 6:49 PM [facility] Neutrophils Relative 63.1 % LAB HEMETOLOGY METHOD 06/16/2024 6:49 PM [facility] Lymphocytes Relative 28.0 % LAB HEMETOLOGY METHOD 06/16/2024 6:49 PM [facility] Monocytes Relative 6.1 % LAB HEMETOLOGY METHOD 06/16/2024 6:49 PM [facility] Eosinophils Relative 1.9 % LAB HEMETOLOGY METHOD 06/16/2024 6:49 PM EST [facility] Basophils Relative 0.5 % LAB HEMETOLOGY METHOD 06/16/2024 6:49 PM [facility] Immature Granulocytes Relative 0.4 % LAB HEMETOLOGY METHOD 06/16/2024 6:49 PM [facility] Neutrophils Absolute 6.47 1.50 - 7.00 K/mcL LAB HEMETOLOGY METHOD 06/16/2024 6:49 PM EST [facility] Lymphocytes Absolute 2.86 1.00 - 5.00 K/mcL LAB HEMETOLOGY METHOD 06/16/2024 6:49 PM [facility] Monocytes Absolute 0.62 0.20 - 1.00 K/mcL LAB HEMETOLOGY METHOD 06/16/2024 6:49 PM EST [facility] Eosinophils Absolute 0.19 0.00 - 0.50 K/mcL LAB HEMETOLOGY METHOD 06/16/2024 6:49 PM EST [facility] Basophils Absolute 0.05 0.00 - 0.20 K/mcL LAB HEMETOLOGY METHOD 06/16/2024 6:49 PM [facility] Immature Granulocytes Absolute 0.04(H) 0.00 - 0.03 K/mcL LAB HEMETOLOGY METHOD 06/16/2024 6:49 PM [facility] Blood Venous blood specimen / Unknown Venipuncture / Unknown 06/16/2024 6:14 PM EST 06/16/2024 6:38 PM EST us Timothy LINDO LAB BLOOD ORDERABLES Final Re sult [facility] [address] [place] [address], * Lipase (06/16/2024 6:14 PM EST) Lipase 19 13 - 75 unit/L LAB CHEMISTRY METHOD 06/16/2024 7:05 PM [facility] Blood Venous blood specimen / Unknown Venipuncture / Unknown 06/16/2024 6:14 PM EST 06/16/2024 6:38 PM EST Timothy LINDO LAB BLOOD ORDERABLES Final Re sult [facility] [address] [place] [address], [place] [phone] * (ABNORMAL) Comprehensive metabolic panel (06/16/2024 6:14 PM EST) Pathologist [facility] Sodium 138 133 - 145 mmol/L LAB CHEMISTRY METHOD 06/16/2024 7:06 PM [facility] Potassium 3.9 3.5 - 5.5 mmol/L LAB CHEMISTRY METHOD 06/16/2024 7:06 PM [facility] Chloride 106 96 - 110 mmol/L LAB CHEMISTRY METHOD 06/16/2024 7:06 PM [facility] CO2 25 21 - 32 mmol/L LAB CHEMISTRY METHOD 06/16/2024 7:06 PM [facility] Anion Gap 7 3 - 11 LAB CHEMISTRY METHOD 06/16/2024 7:06 PM [facility] Glucose 92 70 - 100 mg/dL LAB CHEMISTRY METHOD 06/16/2024 7:06 PM [facility] BUN 6 5 - 25 mg/dL LAB CHEMISTRY METHOD 06/16/2024 7:06 PM [facility] Creatinine 0.68 0.50 - 1.10 mg/dL LAB CHEMISTRY METHOD 06/16/2024 7:06 PM [facility] eGFR 120 >=60 mL/min/1. 73m2 LAB CHEMISTRY METHOD 06/16/2024 7:06 PM [facility] Comment:Calculation based on the??Chronic Kidney Disease Epidemiology Collaboration (CKD-EPI) equation refit??without adjustment for race. BUN/Creatinine Ratio 8.8 LAB CHEMISTRY METHOD 06/16/2024 7:06 PM [facility] Calcium 9.6 8.5 - 10.5 mg/dL LAB CHEMISTRY METHOD 06/16/2024 7:06 PM [facility] AST (SGOT) 12 10 - 42 unit/L LAB CHEMISTRY METHOD 06/16/2024 7:06 PM [facility] ALT (SGPT) 19 10 - 60 unit/L LAB CHEMISTRY METHOD 06/16/2024 7:06 PM [facility] Alkaline Phosphatase 132(H) 42 - 121 unit/L LAB CHEMISTRY METHOD 06/16/2024 7:06 PM [facility] Total Protein 7.5 6.0 - 8.0 g/dL LAB CHEMISTRY METHOD 06/16/2024 7:06 PM [facility] Albumin 3.9 3.2 - 5.0 g/dL LAB CHEMISTRY METHOD 06/16/2024 7:06 PM [facility] Total Bilirubin 0.4 0.0 - 1.4 mg/dL LAB CHEMISTRY METHOD 06/16/2024 7:06 PM [facility] Blood Venous blood specimen / Unknown Venipuncture / Unknown 06/16/2024 6:14 PM EST 06/16/2024 6:38 PM EST us Timothy LINDO LAB BLOOD ORDERABLES Final Re sult [facility] [address] [place] [address], * (ABNORMAL) Lipid panel (05/21/2023) LDL/HDL Ratio 4 0 - 4 Triglycerides 190(A) 0 - 150 mg/dL Cholesterol 196 0 - 200 mg/dL HDL 53 >=40 mg/dL LDL Cholesterol 105(A) 0 - 100 mg/dL Blood Venous blood specimen / Unknown Historical Provider LAB BLOOD ORDERABLES Nicole l Result * Cervical Cancer Screening: HPV (09/28/2022) Pathologist [facility] Cervical Cancer Screening: HPV abstracted, negative [facility] Provider HEALTH MAINTENANCE Final Result * HIV Screening (01/27/2022) [facility] HIV Screening abstracted [facility] Provider HEALTH MAINTENANCE Final Result * Hepatitis C Screening (01/27/2022) [facility] Hepatitis C Screening abstracted [facility] Provider HEALTH MAINTENANCE Final Result from Last 3 Months or Most Recently Relevant to Health Maintenance Insurance [facility] MEDIC[facility] Member Subscriber Plan / Payer (Ef fective 2022-Present) Name:Jia Valdez Relation to Subscriber:Self Name:Jia Valdez Payer ID:[id number] Group ID:[id number] Type:Not on file Address: [address] [place] [address] MEDICARE Care Teams Supervisor Contact And Service Clerks Relationship Specialty Start Date End Date Cassius Alvarez MD [address] [place] [id number] PCP - General Internal Medicine 06/07/24
--- OUTSIDE RECORDS SUMMARY | 2024-09-11 19:16 | XMS_ITS | Encounter Summary ---
Author Organization [facility] Address [address] [place] [address] Care Team Providers Care Senior Project Accountant Name Role Director CareerKenny Morales MD Primary Care Provider Unavailab Neli Anderson MD Primary Care Provider Debora Brian Johnston PA-C Primary Care Provider Unavail able Cassius Alvarez MD Primary Care Provider Unavail able [facility], Pcp Primary Care Provider Unavailabl Cassius Heaton MD Primary Care Provider Unavail able [facility], Pcp Primary Care Provider Unavailabl e Cassius Alvarez MD Primary Care Provider Unavail able Encounter Details Date Type Department Care Team Description 10/25/2015 SLEEVE WHEEL MAKER/[facility] Report Medical Records [address] [place] [id number] Abstract, Provider Social History Tobacco Use Types [...] documented as of this encounter Care Teams Senior Project Accountant Relationship Specialty Start Date End Date Kenny [...]
--- OUTSIDE RECORDS SUMMARY | 2024-09-11 19:16 | XMS_ITS | Encounter Summary ---
Author Organization [facility] Address [address] [place] [address] Care Team Providers Care Scale Tester Name Role Clerk TypistKenny Morales MD Primary Care Provider Unavailab Neli [place] MD Primary Care Provider Debora Brian Johnston PA-C Primary Care Provider Unavail able Cassius Alvarez MD Primary Care Provider Unavail able [facility], Pcp Primary Care Provider Unavailabl e Cassius Alvarez MD Primary Care Provider Unavail able [facility], Pcp Primary Care Provider Unavailabl e Cassius Alvarez MD Primary Care Provider Unavail able Reason for Visit * Reason Onset Date Comments Leg Pain 05/06/2015 Back Pain 05/06/2015 Encounter Details Date Type Department Care Team Description 05/06/2015 Telephone Chiropractic - [address] [address] [employer] [facility] Leg Pain; Back Pain Social History Tobacco Use Types Packs/Day Years [...] encounter Miscellaneous Notes * Telephone Encounter - Cee Billy - 05/06/2015 1:27 PM EDT Patient was seen earlier this morning and since then has been experiencing worse lwo back pain and down her right leg. Would like a call back to talk about it/ discuss if that is normal. documented in this encounter Plan of Treatment Not on file documented as of this encounter Visit Diagnoses Not on filedocumented in this encounter Additional Health Concerns Infection Onset Date Last Indicated Resolved Time COVID-19 08/27/2021 08/28/2021 12/04/2021 9:44 AM EDT documented as of this encounter Care Teams Scale Tester Relationship Specialty Start Date End Date Kenny [...]
--- OUTSIDE RECORDS SUMMARY | 2024-09-11 19:16 | XMS_ITS | Encounter Summary ---
Author Organization [facility] Address [address] [place] [address] Care Team Providers Care Basket Weaver Name Role Application Operations EngineerKenny Morales MD Primary Care Provider Unavailab Neli [place] MD Primary Care Provider Debora Brian Johnston PA-C Primary Care Provider Unavail able Cassius Alvarez MD Primary Care Provider Unavail able [facility], Pcp Primary Care Provider Unavailabl Cassius Heaton MD Primary Care Provider Unavail able [facility], Pcp Primary Care Provider Unavailabl e Cassius Alvarez MD Primary Care Provider Unavail able Encounter Details Date Type Department Care Team Description 02/08/2015 Manufacturing Controls Engineer Report Medical Records [address] [place] [id number] [place] [address] [email or web address], [address] [address] Social History Tobacco Use Types Packs/Day Years [...] documented as of this encounter Care Teams Basket Weaver Relationship Specialty Start Date End Date Kenny [...]
--- OUTSIDE RECORDS SUMMARY | 2024-09-11 19:16 | XMS_ITS | Encounter Summary ---
Author Organization [facility] Address [address] [place] [address] Care Team Providers Care Six Pack Loader Operator Name Role Phone Cassius Alvarez MD Primary Care Provider [phone] Reason for Visit * Reason Comments Follow-up 1 month FU Encounter Details Date Type Department Care Team (Late st Contact Info) Description 08/14/2024 8:30 AM EST Office Visit Bariatric Surgery - [place] 175 [facility] [address] [place] [address] Dayana Frost MD 175 [facility] 120 [place] [address] S/P bariatric surgery (Primary Dx); [...] up with her other providers, cardiology and obiee architect. Status: wrong. Need to change to NOT documented in this encounter Plan of Treatment Upcoming Encounters Date Type Department Care Team (Late st Contact Info) Description 10/05/2024 11:30 AM EDT Office Visit Gastroenterology - [place] 175 [facility] 175 [facility] 200 [place] [address] Anny Vogel PA 175 [facility] 200 [place] [address] 10/16/2024 8:30 AM EDT Office Visit Bariatric Surgery - [place] 175 [facility] 120 [place] [phone] Dayana Frost MD 175 [facility] 120 [place] [address] 10/17/2024 8:00 AM EDT Appointment [facility] [address] [place] [phone] Blanco Sanders DO [address] [address] 11/29/2024 1:30 PM EDT Office Visit Obstetrics and Gynecology - [address] [address] Jewels Rogers, [facility] [place] [address] documented as of this encounter Visit Diagnoses Diagnosis S/P bariatric surgery- Primary Hx of hypoglycemia Dumping syndrome Postgastric surgery syndromes Obesity, Class II, BMI 35-39.9 documented in this encounter Care Teams Six Pack Loader Operator Relationship Specialty Start Date End Date Cassius Alvarez MD [address] [place] [address] PCP - General Internal Medicine 06/07/24 documented as of this encounter
--- OUTSIDE RECORDS SUMMARY | 2024-09-11 19:16 | XMS_ITS | Encounter Summary ---
Author Organization [facility] Address [address] [place] [address] Care Team Providers Care Speech Pathology Teacher Name Role Phone Cassius Alvarez MD Primary Care Provider Unavail able Community, Pcp Primary Care Provider Unavailabl e Cassius Alvarez MD Primary Care Provider Unavail able Encounter Details Date Type Department Care Team Description 06/08/2022 Assistant To The Vice President Report Medical Records [address] [place] [address] Abstract, Provider Social History Tobacco Use Types [...] suspected to have Coronavirus/COVID-19? No / Unsure 06/08/2022 8:18 AM EST documented as of this encounter Plan of Treatment Not on file documented as of this encounter Visit Diagnoses Not on filedocumented in this encounter Care Teams Speech Pathology Teacher Relationship Specialty Start Date End Date Cassius Alvarez MD PCP - General Internal Medicine 03/03/22 07/08/22 Community, Pcp PCP - General Internal Medicine 07/09/22 01/19/23 Cassius Alvarez MD PCP - General Internal Medicine 01/20/23 documented as of this encounter
--- OUTSIDE RECORDS SUMMARY | 2024-09-11 19:16 | XMS_ITS | Encounter Summary ---
Author Organization [facility] Address [address] [place] [address] Care Team Providers Care Transition Program Manager Name Role Phone Community, Pcp Primary Care Provider Cassius Guevara MD Primary Care Provider Unavail able Community, Pcp Primary Care Provider Cassius Guevara MD Primary Care Provider Unavail able Encounter Details Date Type Department Care Team Description 01/05/2022 Pt. Non Urgent Medic al Question OBGYN - [place] [address] [place] [address] Jc Barbour, Social History Tobacco Use Types Packs/Day Years [...] suspected to have Coronavirus/COVID-19? No / Unsure 12/30/2021 9:08 AM EDT documented as of this encounter Plan of Treatment Not on file documented as of this encounter Visit Diagnoses Not on filedocumented in this encounter Care Teams Transition Program Manager Relationship Specialty Start Date End Date Community, Pcp PCP - General Internal Medicine 11/17/21 03/02/22 Cassius Alvarez MD PCP - General Internal Medicine 03/03/22 07/08/22 Community, Pcp PCP - General Internal Medicine 07/09/22 01/19/23 Cassius Alvarez MD PCP - General Internal Medicine 01/20/23 documented as of this encounter
--- OUTSIDE RECORDS SUMMARY | 2024-09-11 19:16 | XMS_ITS | Encounter Summary ---
Author Organization [facility] Address [address] [place] [address] Care Team Providers Care Test Driller Name Role Phone Neil Andrews MD Primary Care Provider Debora Brian Johnston PA-C Primary Care Provider Unavail able Cassius Alvarez MD Primary Care Provider Unavail able [facility], Pcp Primary Care Provider UnavailCassius Schmitz MD Primary Care Provider Unavail able [facility], Pcp Primary Care Provider UnavailCassius Schmitz MD Primary Care Provider Unavail able Encounter Details Date Type Department Care Team Description 11/23/2019 [facility] [address] [place] [address] Abstract, Provider Social History Tobacco Use Types [...] documented as of this encounter Care Teams Test Driller Relationship Specialty Start Date End Date Neli [...]
--- OUTSIDE RECORDS SUMMARY | 2024-09-11 19:16 | XMS_ITS | Encounter Summary ---
Author Organization [facility] Address [address] [place] [address] Care Team Providers Care Customer Support Assistant Name Role Phone Community, Pcp Primary Care Provider Cassius Guevara MD Primary Care Provider Unavail able Community, Pcp Primary Care Provider UnavailCassius Schmitz MD Primary Care Provider Unavail able Reason for Visit * Reason Onset Date Comments Prior Authorization 01/01/2022 Encounter Details Date Type Department Care Team Description 01/01/2022 Telephone OBGYN - [place] [address] [place] [address] Gema Miller CNM [address] [place] [address] Prior Authorization Social History Tobacco Use Types Packs/Day Years [...] encounter Miscellaneous Notes * Telephone Encounter - Parul Ireland M.A. - 01/02/2022 9:09 AM EDT Community pcp , * Telephone Encounter - Laura Villagran - 01/01/2022 4:21 PM EDT Prior Authorization for Medication-do not complete and send this encounter unless you have the fax from the pharmacy. Is this a Cover My Meds request: No Doxylamine Succinate, Sleep, (Unisom SleepTabs) 25 MG Tab Name of Medication Dose of Medication What is the RX # from the faxed refill? How does patient take this med? What Pharmacy did the fax come from: [facility] fax #: [phone] [employer] Information from fax: What Prescription Plan does the patient have? BIN/PCN if applicable: Cardholder ID: Person Code: Relationship Code: Help desk phone: documented in this encounter Plan of Treatment Not on file documented as of this encounter Visit Diagnoses Not on filedocumented in this encounter Care Teams Customer Support Assistant Relationship Specialty Start Date End Date Community, Pcp PCP - General Internal Medicine 11/17/21 03/02/22 Cassius Alvarez MD PCP - General Internal Medicine 03/03/22 07/08/22 Community, Pcp PCP - General Internal Medicine 07/09/22 01/19/23 Cassius Alvarez MD PCP - General Internal Medicine 01/20/23 documented as of this encounter
--- OUTSIDE RECORDS SUMMARY | 2024-09-11 19:16 | XMS_ITS | Encounter Summary ---
Author Organization [facility] Address [address] [place] [address] Care Team Providers Care Entertainment Musician Name Role Phone Neli Andrews MD Primary Care Provider Debora Brian Johnston PA-C Primary Care Provider Unavail able Cassisu Alvarez MD Primary Care Provider Unavail able [facility], Pcp Primary Care Provider Unavailabl e Cassius Alvarez MD Primary Care Provider Unavail able [facility], Pcp Primary Care Provider UnavailCassius Schmitz MD Primary Care Provider Unavail able Reason for Visit * Reason Onset Date Comments Prior Authorization 10/09/2019 lidocaine (X YLOCAINE) 2 % jelly Encounter Details Date Type Department Care Team Description 10/09/2019 Telephone Medicine/Pediatrics [address] [address] Neli Andrews MD Prior Authorization (lidocaine (XYLOCAINE) 2 % jelly) Social History Tobacco Use Types Packs/Day Years [...] encounter Miscellaneous Notes * Telephone Encounter - Rosa Hercules M.A. - 10/09/2019 3:44 PM EDT Lidocaine gel not covered by insurance.. Must have post herpetic neuralgia, diabetic or cancer related neuropathy. The patient can purchase lidocaine patch, gel, or cream otc with 4% lidocaine made by [employer] or [employer]. Thank you Please reply back to p [phone] prior authorization pool Yasmin Hercules C.M.A. [facility] Prior Authorizations Ext: [phone] * Telephone Encounter - Delorisponcho Melody - 10/09/2019 12:28 PM EDT Prior Authorization for Medication-do not complete and send this encounter unless you have the fax from the pharmacy. Is this a Cover My Meds request: Moonshine of Medication lidocaine (XYLOCAINE) Dose of Medication 2 % jelly What is the RX # from the faxed refill? [id number] How does patient take this med? Apply thin layer to area of painful rash every 4 hours as needed; wash hands after use What Pharmacy did the fax come from: [facility] fax #: [phone] [employer] Information from fax: What Prescription Plan does the patient have? Medicare and CREAT BIN/PCN if applicable: n/a Cardholder ID: [id number] Person Code: n/a Relationship Code: n/a Help desk phone: [phone] documented in this encounter Plan of Treatment Not on file documented as of this encounter Visit Diagnoses Not on filedocumented in this encounter Additional Health Concerns Infection Onset Date Last Indicated Resolved Time COVID-19 08/27/2021 08/28/2021 12/04/2021 9:44 AM EDT documented as of this encounter Care Teams Entertainment Musician Relationship Specialty Start Date End Date Neli [...]
--- OUTSIDE RECORDS SUMMARY | 2024-09-11 19:16 | XMS_ITS | Encounter Summary ---
Author Organization [employer] [facility] Address [address] [place] [address] Care Team Providers Care Certified Income Tax Preparer Name Role Phone Community, Pcp Primary Care Provider Cassius Guevara MD Primary Care Provider Unavail able Community, Pcp Primary Care Provider Cassius Guevara MD Primary Care Provider Unavail able Encounter Details Date Type Department Care Team Description 12/02/2021 Orders Only Medical Records [address] [place] [address] Jc Barbour DO Social History Tobacco Use Types Packs/Day [...] Recorded In the last 10 days, have jasiel u been in contact with someone who was confirmed or suspected to have Coronavirus/COVID-19? No / Unsure 12/03/2021 4:35 PM EDT documented as of this encounter Plan of Treatment Not on file documented as of this encounter Procedures Procedure Name Priority Date/Time Associated Diagnosis Comments OUTSIDE PATHOLOGY Routine 11/28/2021 documented in this encounter Results * OUTSIDE PATHOLOGY (11/28/2021) Jc Barbour DO OUTSIDE LAB documented in this encounter Visit Diagnoses Not on filedocumented in this encounter Additional Health Concerns Infection Onset Date Last Indicated Resolved Time COVID-19 08/27/2021 08/28/2021 12/04/2021 9:44 AM EDT documented as of this encounter Care Teams Certified Income Tax Preparer Relationship Specialty Start Date End Date Community, Pcp PCP - General Internal Medicine 11/17/21 03/02/22 Cassius Alvarez MD PCP - General Internal Medicine 03/03/22 07/08/22 Community, Pcp PCP - General Internal Medicine 07/09/22 01/19/23 Cassius Alvarez MD PCP - General Internal Medicine 01/20/23 documented as of this encounter
--- OUTSIDE RECORDS SUMMARY | 2024-09-11 19:16 | XMS_ITS | Encounter Summary ---
Author Organization [facility] Address [address] [place] [address] Care Team Providers Care Credit Risk Manager Name Role Phone Cassius Alvarez MD Primary Care Provider [phone] Encounter Details Date Type Department Care Team (Latest Contact Info) Description 08/21/2024 Lab Requisition [facility] - Main Lab [address] [facility] [facility] [place] [address] Donald Wall, GU[facility] 120 [place] [address] Hydronephrosis with renal and ureteral calculous obstruction [...] 11:30 AM EDT Office Visit Gastroenterology - [place] [address] [phone] Anny Vogel PA [address] [address] 10/16/2024 8:30 AM EDT Office Visit Bariatric Surgery - [place] [address] [phone] Dayana Frost MD [address] [phone] 10/17/2024 8:[address] [facility] [address] [place] [phone] Blanco Sanders DO [address] [address] 11/29/2024 1:30 PM EDT Office Visit Obstetrics and Gynecology - [place] [address] [place] [address] Jewels Rogers, [facility] [address] [place], [place] documented as of this encounter Procedures Procedure Name Priority Date/Time Associated Diagnosis Comments PARATHYROID HORMONE INTACT Routine 08/21/2024 10:22 AM EST Hydronephrosis with renal and ureteral calculous obstruction documented in this encounter Results * Parathyroid hormone intact (08/21/2024 10:22 AM EST) PTH 54.2 18.5 - 88.0 pcg/mL LAB CHEMISTRY METHOD 08/21/2024 2:11 PM EST [facility] Blood Venous blood specimen / Unknown 08/21/2024 10:22 AM EST 08/21/2024 1:17 PM EST us Donald R Mae PA LAB BLOOD ORDERABLES Final Res ult [facility] [address] [place] [address], documented in this encounter Visit Diagnoses Diagnosis Hydronephrosis with renal and ureteral calculous obstruction documented in this encounter Care Teams Credit Risk Manager Relationship Specialty Start Date End Date Cassius Alvarez MD [address] [place] [address] PCP - General Internal Medicine 06/07/24 documented as of this encounter
--- OUTSIDE RECORDS SUMMARY | 2024-09-11 19:16 | XMS_ITS | Encounter Summary ---
Author Organization [facility] Address [address] [place] [address] Care Team Providers Care Sales Support Administrator Name Role Phone Community, Pcp Primary Care Provider Cassius Guevara MD Primary Care Provider Unavail able Community, Pcp Primary Care Provider Cassius Guevara MD Primary Care Provider Unavail able Encounter Details Date Type Department Care Team Description 02/02/2022 Transfer Records Medical Records [address] [place] [address] Social History Tobacco Use Types Packs/Day Years [...] suspected to have Coronavirus/COVID-19? No / Unsure 02/05/2022 2:25 PM EDT documented as of this encounter Plan of Treatment Not on file documented as of this encounter Visit Diagnoses Not on filedocumented in this encounter Care Teams Sales Support Administrator Relationship Specialty Start Date End Date Community, Pcp PCP - General Internal Medicine 11/17/21 03/02/22 Cassius Alvarez MD PCP - General Internal Medicine 03/03/22 07/08/22 Community, Pcp PCP - General Internal Medicine 07/09/22 01/19/23 Cassius Alvarez MD PCP - General Internal Medicine 01/20/23 documented as of this encounter
--- OUTSIDE RECORDS SUMMARY | 2024-09-11 19:16 | XMS_ITS | Encounter Summary ---
Author Organization [facility] Address [address] [place] [address] Care Team Providers Care Anvil Worker Name Role Phone Community, Pcp Primary Care Provider Cassius Guevara MD Primary Care Provider Unavail able Community, Pcp Primary Care Provider Cassius Guevara MD Primary Care Provider Unavail able Encounter Details Date Type Department Care Team Description 12/09/2021 Orders Only OBGYN - [place] [address] [place] [address] Shannon He MD [address] [place] [phone] with uncertain dates, antepartum (Primary Dx); S/P myomectomy Social History Tobacco Use Types Packs/Day Years [...] suspected to have Coronavirus/COVID-19? No / Unsure 12/11/2021 7:34 AM EDT documented as of this encounter Plan of Treatment Not on file documented as of this encounter Results * ULTRASOUND OB <14 WK SINGLE FETUS (12/23/2021 11:17 AM EDT) 12/23/2021 1:33 PM EDT Narrative PIO PRO OTHER EXTERNAL - 12/23/2021 1:37 PM EDT Obstetrical ultrasound. History size and dates. Examination was performed transabdominally and transvaginally. ??Based on LMP estimated gestational age is 5 weeks 6 days, estimated due date 08/19/2022. There is single live intrauterine gestation with crown-rump length of 6 mm which corresponds to the estimated gestation of 6 weeks 3 days, estimated due date 08/15/2022. ?? heart rate is 117 bpm. ??Cervix measures 3.3 cm. ??Right ovary is unremarkable. ??There is a corpus luteum cyst in the left ovary measuring 1.5 x 1.5 x 1.4 cm as well as some cyst with low internal echoes, possibly hemorrhagic measuring 2 x 1.8 x 1.4 cm. CONCLUSIONS: Single live intrauterine gestation of 6 weeks 3 days, estimated due date 08/15/22. Additional findings in the left ovary. Procedure Note Lillie Santillan MD - 12/23/2021 Obstetrical ultrasound. History size and dates. Examination was performed transabdominally and transvaginally. Based onLMP estimated gestational age is 5 weeks 6 days, estimated due date 08/19/2022. There is single live intrauterine gestation with crown-rump length of 6 mmwhich corresponds to the estimated gestation of 6 weeks 3 days, estimated due date 08/15/2022. heart rate is 117 bpm. Cervix measures 3.3 cm. Right ovary is unremarkable. There van corpus luteum cyst in the left ovary measuring 1.5 x 1.5 x 1.4 cm as well as some cyst withlow internal echoes, possibly hemorrhagic measuring 2 x 1.8 x 1.4 cm. CONCLUSIONS: Single live intrauterine gestation of 6 weeks 3 days,estimated due date 08/15/22. Additional findings in the left ovary. Shannon He MD ULTRASOUND PIO PRO OTHER EXTERNAL documented in this encounter Visit Diagnoses Diagnosis with uncertain dates, antepartum- Primary state, incidental S/P myomectomy Other postprocedural status with uncertain dates, antepartum state, incidental S/P myomectomy Other postprocedural status documented in this encounter Care Teams Anvil Worker Relationship Specialty Start Date End Date Community, Pcp PCP - General Internal Medicine 11/17/21 03/02/22 Cassius Alvarez MD PCP - General Internal Medicine 03/03/22 07/08/22 [facility], Pcp PCP - General Internal Medicine 07/09/22 01/19/23 Cassius Alvarez MD PCP - General Internal Medicine 01/20/23 documented as of this encounter
--- OUTSIDE RECORDS SUMMARY | 2024-09-11 19:16 | XMS_ITS | Encounter Summary ---
Author Organization [facility] Address [address] [place] [address] Care Team Providers Care Homicide Squad Lieutenant Name Role Phone Community, Pcp Primary Care Provider Cassius Guevara MD Primary Care Provider Unavail able Community, Pcp Primary Care Provider Cassius Guevara MD Primary Care Provider Unavail able Reason for Visit * Reason Onset Date Comments 12/12/2021 Encounter Details Date Type Department Care Team Description 12/12/2021 Telephone OBGYN - [place] [address] [place] [address] Shannon He MD [address] [place] [address] [phone] Social History Tobacco Use Types Packs/Day Years [...] encounter Miscellaneous Notes * Telephone Encounter - Fallon Seaman M.A. - 12/12/2021 10:00 AM EDT Letter was faxed to [facility]. -KM * Telephone Encounter - Phoebe Bhatia - 12/12/2021 9:08 AM EDT [facility] [phone] - fax [phone] Pt cracked a tooth and is in pain, pt is and the dentist can see her late this morning as an emergency appt but will not see her until we give a clearance letter stating she may have dental care and outline what is safe and not safe for her documented in this encounter Plan of Treatment Not on file documented as of this encounter Visit Diagnoses Not on filedocumented in this encounter Care Teams Homicide Squad Lieutenant Relationship Specialty Start Date End Date Community, Pcp PCP - General Internal Medicine 11/17/21 03/02/22 Cassius Alvarez MD PCP - General Internal Medicine 03/03/22 07/08/22 Community, Pcp PCP - General Internal Medicine 07/09/22 01/19/23 Cassius Alvarez MD PCP - General Internal Medicine 01/20/23 documented as of this encounter
--- OUTSIDE RECORDS SUMMARY | 2024-09-11 19:16 | XMS_ITS | Encounter Summary ---
Author Organization [facility] Address [address] [place] [address] Care Team Providers Care End Finder Forming Department Name Role Phone Community, Pcp Primary Care Provider Cassius Guevara MD Primary Care Provider Unavail able Community, Pcp Primary Care Provider Cassius Guevara MD Primary Care Provider Unavail able Encounter Details Date Type Department Care Team Description 12/11/2021 Pt. Non Urgent Medic al Question OBGYN - [address] [address] Jc Barbour, Social History Tobacco Use Types [...] on filedocumented in this encounter Care Teams End Finder Forming Department Relationship Specialty Start Date End Date Community, Pcp PCP - General Internal Medicine 11/17/21 03/02/22 Cassius Alvarez MD PCP - General Internal Medicine 03/03/22 07/08/22 Community, Pcp PCP - General Internal Medicine 07/09/22 01/19/23 Cassius Alvarez MD PCP - General Internal Medicine 01/20/23 documented as of this encounter
--- OUTSIDE RECORDS SUMMARY | 2024-09-11 19:16 | XMS_ITS | Encounter Summary ---
Author Organization [facility] Address [address] [place] [address] Care Team Providers Care Lbd Teacher Name Role Phone Neli Andrews MD Primary Care Provider Debora Brian Johnston PA-C Primary Care Provider Unavail able Cassius Alvarez MD Primary Care Provider Unavail able [facility], Pcp Primary Care Provider UnavailCassius Schmitz MD Primary Care Provider Unavail able [facility], Pcp Primary Care Provider UnavailCassius Schmitz MD Primary Care Provider Unavail able Reason for Visit * Reason Onset Date Comments REFERRAL 06/05/2019 Encounter Details Date Type Department Care Team Description 06/05/2019 [place] [facility] Medicine/Pediatrics [address] [phone] Neli Andrews MD REFERRAL Social History Tobacco Use Types Packs/Day Years [...] encounter Miscellaneous Notes * Telephone Encounter - Lori Dwyer - 06/05/2019 9:08 AM EST FYI to ordering provider. Re:Pulmonary All attempts exhausted to reach patient to book appt. KMS. documented in this encounter Plan of Treatment Not on file documented as of this encounter Visit Diagnoses Not on filedocumented in this encounter Additional Health Concerns Infection Onset Date Last Indicated Resolved Time COVID-19 08/27/2021 08/28/2021 12/04/2021 9:44 AM EDT documented as of this encounter Care Teams Lbd Teacher Relationship Specialty Start Date End Date Neli [...]
--- OUTSIDE RECORDS SUMMARY | 2024-09-11 19:16 | XMS_ITS | Encounter Summary ---
Author Organization [facility] Address [address] [place] [address] Care Team Providers Care Wooden Tank Erector Name Role Phone Community, Pcp Primary Care Provider Cassius Guevara MD Primary Care Provider Unavail able Community, Pcp Primary Care Provider Cassius Guevara MD Primary Care Provider Unavail able Encounter Details Date Type Department Care Team Description 11/29/2021 Hospital Medical Records [address] [place] [address] Shannon He MD [address] [place] [address] [id number] Social History Tobacco Use Types Packs/Day Years [...] suspected to have Coronavirus/COVID-19? No / Unsure 11/24/2021 1:12 PM EDT documented as of this encounter Plan of Treatment Not on file documented as of this encounter Visit Diagnoses Not on filedocumented in this encounter Additional Health Concerns Infection Onset Date Last Indicated Resolved Time COVID-19 08/27/2021 08/28/2021 12/04/2021 9:44 AM EDT documented as of this encounter Care Teams Wooden Tank Erector Relationship Specialty Start Date End Date Community, Pcp PCP - General Internal Medicine 11/17/21 03/02/22 Cassius Alvarez MD PCP - General Internal Medicine 03/03/22 07/08/22 Community, Pcp PCP - General Internal Medicine 07/09/22 01/19/23 Cassius Alvarez MD PCP - General Internal Medicine 01/20/23 documented as of this encounter
--- OUTSIDE RECORDS SUMMARY | 2024-09-11 19:16 | XMS_ITS | Encounter Summary ---
Author Organization [facility] Address [address] [place] [address] Care Team Providers Care Roofing Foreman Name Role Phone Cassius Alvarez MD Primary Care Provider Unavail able [facility], Pcp Primary Care Provider Unavailabl e Cassius Alvarez MD Primary Care Provider Unavail able Reason for Visit * Reason Comments E-prescribe Rx Request Encounter Details Date Type Department Care Team Description 03/12/2022 Refill OBGYN - [place] [address] [place] [address] Jc Barbour DO E-prescribe Rx Request Social [...] suspected to have Coronavirus/COVID-19? No / Unsure 03/10/2022 8:20 AM EDT documented as of this encounter Miscellaneous Notes * Telephone Encounter - Aga Rehman C.M.A. - 03/13/2022 2:26 PM EDT Please consider refill for pt. DA * Telephone Encounter - Ruthie Moran - 03/13/2022 10:30 AM EDT WHEN WAS THE PATIENTS LAST ANNUAL CHOCOLATE COATER EXAM? 02/06/22 IP Does patient have an upcoming appointment? Yes 04/09/22 (THE MEDICATION REQUESTED IS ON THE MED LIST ABOVE) Did you check the Pharmacy information above?: YES Indicate how soon the patient needs the script: BY THE END OF THE DAY Patient would like script to be: E-PRESCRIBED/FAXED TO PHARMACY Is the doctor here today?: YES Can the message wait until the doctor returns?: NO Has the patient been told that the prescription will not be filled until the end of the day? NO Payor: [facility] / Plan: [facility] / Product Type: HMO [id number] documented in this encounter Plan of Treatment Not on file documented as of this encounter Visit Diagnoses Not on filedocumented in this encounter Care Teams Roofing Foreman Relationship Specialty Start Date End Date Cassius Alvarez MD PCP - General Internal Medicine 03/03/22 07/08/22 [facility] Pcp PCP - General Internal Medicine 07/09/22 01/19/23 Cassius Alvarez MD PCP - General Internal Medicine 01/20/23 documented as of this encounter
--- OUTSIDE RECORDS SUMMARY | 2024-09-11 19:16 | XMS_ITS | Encounter Summary ---
Author Organization [facility] Address [address] [place] [address] Care Team Providers Care Small Craft Operator Name Role Phone Neli Andrews MD Primary Care Provider Debora Brian Johnston PA-C Primary Care Provider Unavail able Cassius Alvarez MD Primary Care Provider Unavail able [facility], Pcp Primary Care Provider UnavailCassius Schmitz MD Primary Care Provider Unavail able [facility], Pcp Primary Care Provider UnavailCassius Schmitz MD Primary Care Provider Unavail able Encounter Details Date Type Department Care Team Description 09/13/2019 Orders Only Medical Records [address] [place] [address] Dayana Frost MD [address] [place] [phone] Social History Tobacco Use Types Packs/Day [...] Associated Diagnosis Comments OUTSIDE PLAIN FILM Routine 09/12/2019 documented in this encounter Results * OUTSIDE PLAIN FILM (09/12/2019) Dayana Frost MD RADIOLOGY documented in this encounter Visit Diagnoses Not on filedocumented in this encounter Additional Health Concerns Infection Onset Date Last Indicated Resolved Time COVID-19 08/27/2021 08/28/2021 12/04/2021 9:44 AM EDT documented as of this encounter Care Teams Small Craft Operator Relationship Specialty Start Date End Date [...]
--- OUTSIDE RECORDS SUMMARY | 2024-09-11 19:16 | XMS_ITS | Encounter Summary ---
Author Organization [facility] Address [address] [place] [address] Care Team Providers Care Car Usher Name Role Phone [facility], Pcp Primary Care Provider UnavailCassius Schmitz MD Primary Care Provider Unavail able Encounter Details Date Type Department Care Team Description 08/04/2022 Pt. Non Urgent Medical Question OBELIZABETH - [place] [address] [place], [place] [phone] Jewels Rogers CNM [address] [place], [place] [phone] Social History Tobacco Use Types Packs/Day Years [...] suspected to have Coronavirus/COVID-19? No / Unsure 08/03/2022 8:38 AM EST documented as of this encounter Miscellaneous Notes * Telephone Encounter - Demi Lara R.N. - 08/04/2022 9:46 AM ESTFrom: Jia Valdez To: Jewels Rogers CNM Sent: 08/04/2022 5:43 AM EST Subject: In labor Hello, so I came back to the [facility] last night around 11pm with painful contractions that were waking me up. They checked me and I was 1cm dilated at the time. They continued coming and they rechecked an hour later and I was 3cm. So they kept me and before they put the epidural in they checked me again and I was 3-4cm. Resting comfort ably now. Just wanted to keep you in the loop. Thank you -Jia documented in this encounter Plan of Treatment Not on file documented as of this encounter Visit Diagnoses Not on filedocumented in this encounter Care Teams Car Usher Relationship Specialty Start Date End Date [facility], Pcp PCP - General Internal Medicine 07/09/22 01/19/23 Cassius Alvarez MD PCP - General Internal Medicine 01/20/23 documented as of this encounter
--- OUTSIDE RECORDS SUMMARY | 2024-09-11 19:16 | XMS_ITS | Encounter Summary ---
Author Organization [facility] Address [address] [place] [address] Care Team Providers Care Cut Plug Packer Name Role Phone Cassius Alvarez MD Primary Care Provider Unavail able [facility], Pcp Primary Care Provider Unavailabl e Cassius Alvarez MD Primary Care Provider Unavail able Reason for Visit * Reason Onset Date Comments 06/26/2022 Encounter Details Date Type Department Care Team Description 06/26/2022 Telephone OBGYN - [address] [place] [phone] Jeewls Rogers, [address] [address] Social History Tobacco Use Types Packs/Day Years [...] suspected to have Coronavirus/COVID-19? No / Unsure 06/22/2022 8:38 AM EST documented as of this encounter Miscellaneous Notes * Telephone Encounter - Demi Lara R.N. - 06/26/2022 4:47 PM EST Call to patient: reports having headaches past couple nights. Had headache, and was having blurry vision since last night. States she took her bp and was elevated. Will speak with provider and get back to patient. Call placed to [facility]; spoke with Dr. Urbina; above symptoms of patient with BP's reported; recommended she come to [facility]. Call back to patient: advised will need to go to [facility] for eval. Verbalized understanding, and aware of location. Will send review to Dr. Urbina for chart review. * Telephone Encounter - Bouchra Perez - 06/26/2022 3:35 PM EST Patient calling states has been taking her blood pressure today and its been increasingly getting higher: 11:50am (129-88) 12:30pm (131/95) 2:50pm (156-89). Please advise documented in this encounter Plan of Treatment Not on file documented as of this encounter Visit Diagnoses Not on filedocumented in this encounter Care Teams Cut Plug Packer Relationship Specialty Start Date End Date Cassius Alvarez MD PCP - General Internal Medicine 03/03/22 07/08/22 [facility], Pcp PCP - General Internal Medicine 07/09/22 01/19/23 Cassius Alvarez MD PCP - General Internal Medicine 01/20/23 documented as of this encounter
--- OUTSIDE RECORDS SUMMARY | 2024-09-11 19:16 | XMS_ITS | Encounter Summary ---
Author Organization [facility] Address [address] [place] [address] Care Team Providers Care Watch Dial Stoner Name Role Phone Cassius Alvarez MD Primary Care Provider Unavail able [facility], Pcp Primary Care Provider Unavailabl e Cassius Alvarez MD Primary Care Provider Unavail able Reason for Visit * Reason Comments E-prescribe Rx Request Encounter Details Date Type Department Care Team Description 04/12/2022 Refill OBGYN - [place] [address] [place] [address] Jc Barbour DO E-prescribe Rx Request Social [...] suspected to have Coronavirus/COVID-19? No / Unsure 04/09/2022 2:42 PM EDT documented as of this encounter Miscellaneous Notes * Telephone Encounter - Ruthie Moran - 04/13/2022 12:36 PM EDT WHEN WAS THE PATIENTS LAST ANNUAL PACKING MACHINE CAN FEEDER EXAM? 02/06/22 IP Does patient have an upcoming appointment? YES 05/08/22 (THE MEDICATION REQUESTED IS ON THE MED LIST ABOVE) Did you check the Pharmacy information above?: YES Indicate how soon the patient needs the script: BY THE END OF THE DAY Patient would like script to be: E-PRESCRIBED/FAXED TO PHARMACY Is the doctor here today?: NO Can the message wait until the doctor returns?: NO Has the patient been told that the prescription will not be filled until the end of the day? NO Payor: [facility] / Plan: [facility] / Product Type: HMO [id number] documented in this encounter Plan of Treatment Not on file documented as of this encounter Visit Diagnoses Not on filedocumented in this encounter Care Teams Watch Dial Stoner Relationship Specialty Start Date End Date Cassius Alvarez MD PCP - General Internal Medicine 03/03/22 07/08/22 [facility] Pcp PCP - General Internal Medicine 07/09/22 01/19/23 Cassius Alvarez MD PCP - General Internal Medicine 01/20/23 documented as of this encounter
--- OUTSIDE RECORDS SUMMARY | 2024-09-11 19:16 | XMS_ITS | Encounter Summary ---
Author Organization [facility] Address [address] [place] [address] Care Team Providers Care Nursing Faculty Name Role Phone Community, Pcp Primary Care Provider Cassius Guevara MD Primary Care Provider Unavail able [facility], Pcp Primary Care Provider Cassius Guevara MD Primary Care Provider Unavail able Encounter Details Date Type Department Care Team Description 12/04/2021 Pt. Non Urgent Medic al Question OBGYN - [place] [address] [place] [id number] Jc Barbour, Social History Tobacco Use Types [...] documented as of this encounter Care Teams Nursing Faculty Relationship Specialty Start Date End Date Community, Pcp PCP - General Internal Medicine 5/9/22 8/22/22 Cassius Alvarez MD PCP - General Internal Medicine 03/03/22 07/08/22 [facility], Pcp PCP - General Internal Medicine 07/09/22 01/19/23 Cassius Alvarez MD PCP - General Internal Medicine 01/20/23 documented as of this encounter
--- OUTSIDE RECORDS SUMMARY | 2024-09-11 19:16 | XMS_ITS | Encounter Summary ---
Author Organization [facility] Address [address] [place] [address] Care Team Providers Care Tar Heat Exchanger Cleaner Name Role Phone Cassius Alvarez MD Primary Care Provider Unavail able [facility], Pcp Primary Care Provider Unavailabl e Cassius Alvarez MD Primary Care Provider Unavail able Encounter Details Date Type Department Care Team Description 06/02/2022 Pt. Non Urgent Medical Question Bariatric Surgery - [place] [address] [facility] [address] [place] [phone] Dayana Frost MD [address] [facility] [address] [place] [address] Social History Tobacco Use Types [...] suspected to have Coronavirus/COVID-19? No / Unsure 06/05/2022 2:46 PM EST documented as of this encounter Miscellaneous Notes * Telephone Encounter - Promise Woodson M.A. - 06/02/2022 3:53 PM ESTFrom: Jia Valdez To: Mary Frost Sent: 06/02/2022 12:39 PM EST Subject: Cardiology follow up Helsameer! So I wanted to let you know (because I???ll probably forget to mention this when I see you on Wednesday) but I went to the permanent mold supervisor this morning and my echocardiogram was normal, my ekg was normal, it showed some palpitations which she said is completely normal, but she diagnosed me POTS. We did orthostatic blood pres sures and my heart rate skyrocketed with each position change. My bloodpressure at home has been normal and my sugar??? the lowest in the past five days has been 62 and the highest was 135 (or around there). I see OB on Wednesday and I also let my primary, Dr Alvarez know too. I will see you on Wednesday. I hope you have a Happy Thanksgiving! -Jia documented in this encounter Plan of Treatment Not on file documented as of this encounter Visit Diagnoses Not on filedocumented in this encounter Care Teams Tar Heat Exchanger Cleaner Relationship Specialty Start Date End Date Cassius Alvarez MD PCP - General Internal Medicine 03/03/22 07/08/22 [facility], Pcp PCP - General Internal Medicine 07/09/22 01/19/23 Cassius Alvarez MD PCP - General Internal Medicine 01/20/23 documented as of this encounter
--- OUTSIDE RECORDS SUMMARY | 2024-09-11 19:16 | XMS_ITS | Encounter Summary ---
Author Organization [facility] Address [address] [place] [address] Care Team Providers Care Outside Sales Inspector Name Role Phone Cassius Alvarez MD Primary Care Provider Unavail able [facility], Pcp Primary Care Provider Unavailabl e Cassius Alvarez MD Primary Care Provider Unavail able Encounter Details Date Type Department Care Team Description 07/08/2022 Telephone OBGYN - [place] [address] [place], [place] [phone] Rogers Jewels, [facility] [address] [place], [place] [phone] Social History Tobacco Use Types Packs/Day Years [...] suspected to have Coronavirus/COVID-19? No / Unsure 07/09/2022 12:39 PM EST documented as of this encounter Miscellaneous Notes * Telephone Encounter - Business Support CoordinatorSanchez Hughes - 07/08/2022 4:18 PM EST ----- Message from Jia Vladez sent at 07/07/2022 5:14 PM EST ----- Regarding: Psychiatry/PCP update Contact: Daniela! So my psychiatrist and I are decreasing the mirtazapine from 22.5mg to 15mg starting tonight. I see her again on July 28 and if all is going well, we???ll be decreasing to 7.5mg. She [id number] is still a good dose. I called my PCP as soon as I left the office this morning and just left his office from seeing him. He doesn???t hear bronchitis which is obviously good, with my dad just having had rsv he said there???s always a chance that it could be that, but I???ve been very cautiousaround my dad and have been wearing a mask constantly around him. Inhaler dominguez, he doesn???t think it???s a good idea to increase the dose of the steroids in the breo ellipta inhaler, so he is suggesting using the nebulizer every 4-6 hours (as needed) instead of the albuterol rescue inhaler since the nebulizer is helping more than the inhaler at the moment. So he said if I can get by using the nebulizer twice a day that???s great, if I need it 3 times a day that???s okay too. He also gave me a prescription for amoxicillin-clavulanate 400mg-57mg/5ml (10ml every 12 hours for 7 days) but he only gave me a written prescription just incase because he???s out of the office from until next week and said not to fill that prescription unless I feel it more in my sinuses. In other news, I got the ultrasound scheduled for the at 8am. Sorry for the long message, I just wanted to let you know of the updates throughout the day! Thank you and I hope you have a happy new year! -Jia documented in this encounter Plan of Treatment Not on file documented as of this encounter Visit Diagnoses Not on filedocumented in this encounter Care Teams Outside Sales Inspector Relationship Specialty Start Date End Date Cassius Alvarez MD PCP - General Internal Medicine 03/03/22 07/08/22 Community, Pcp PCP - General Internal Medicine 07/09/22 01/19/23 Cassius Alvarez MD PCP - General Internal Medicine 01/20/23 documented as of this encounter
--- OUTSIDE RECORDS SUMMARY | 2024-09-11 19:16 | XMS_ITS | Encounter Summary ---
Author Organization [facility] Address [address] [place] [address] Care Team Providers Care Senior Advocate Name Role Phone Neli Andrews MD Primary Care Provider Debora Brian Johnston PA-C Primary Care Provider Unavail able Cassius Alvarez MD Primary Care Provider Unavail able [facility], Pcp Primary Care Provider UnavailCassius Schmitz MD Primary Care Provider Unavail able [facility], [facility] Primary Care Provider UnavailCassius Schmitz MD Primary Care Provider Unavail able Encounter Details Date Type Department Care Team Description 03/12/2020 Pt. Non Urgent Medic al Question Physiatry - [address] [address] Blanco Flores DO Social History Tobacco Use Types Packs/Day [...] have Coronavirus / COVID-19? No / Unsure 03/15/2020 8:30 AM EDT documented as of this encounter Progress Notes * Henna Gibbons L.P.N. - 03/12/2020 1:04 PM EDTFrom: Jia Valdez To: Blanco Flores DO Sent: 03/12/2020 11:51 AM EDT Subject: Injections Hi dr flores, the pain is starting to become unbearable again. Can we schedule my next set of injections? documented in this encounter Plan of Treatment Not on file documented as of this encounter Visit Diagnoses Not on filedocumented in this encounter Additional Health Concerns Infection Onset Date Last Indicated Resolved Time COVID-19 08/27/2021 08/28/2021 12/04/2021 9:44 AM EDT documented as of this encounter Care Teams Senior Advocate Relationship Specialty Start Date End Date Neli [...]
--- OUTSIDE RECORDS SUMMARY | 2024-09-11 19:16 | XMS_ITS | Encounter Summary ---
Author Organization [facility] Address [address] [place] [address] Care Team Providers Care Ethical Hacker Name Role Phone Community, Pcp Primary Care Provider Cassius Guevara MD Primary Care Provider Unavail able Community, Pcp Primary Care Provider UnavailCassius Schmitz MD Primary Care Provider Unavail able Reason for Visit * Reason Onset Date Comments Advice 12/04/2021 Encounter Details Date Type Department Care Team Description 12/04/2021 Telephone General Surgery - [place] [address] [facility] [address] [place] [phone] Dayana Frost MD [address] [phone] Advice Social History Tobacco Use Types Packs/Day Years [...] encounter Miscellaneous Notes * Telephone Encounter - Lillie Schmitz - 12/04/2021 11:19 AM EDT Pt just found out she is and is asking if she should still be taking her Calcium, Pantoprazole and Famotidine? She says her OB said it should be okay but to check with Dr. Frost just to be safe. She can be reached at [phone] documented in this encounter Plan of Treatment Not on file documented as of this encounter Visit Diagnoses Not on filedocumented in this encounter Additional Health Concerns Infection Onset Date Last Indicated Resolved Time COVID-19 08/27/2021 08/28/2021 12/04/2021 9:44 AM EDT documented as of this encounter Care Teams Ethical Hacker Relationship Specialty Start Date End Date Community, Pcp PCP - General Internal Medicine 11/17/21 03/02/22 Cassius Alvarez MD PCP - General Internal Medicine 03/03/22 07/08/22 Community, Pcp PCP - General Internal Medicine 07/09/22 01/19/23 Cassius Alvarez MD PCP - General Internal Medicine 01/20/23 documented as of this encounter
--- OUTSIDE RECORDS SUMMARY | 2024-09-11 19:16 | XMS_ITS | Encounter Summary ---
Author Organization [facility] Address [address] [place] [address] Care Team Providers Care Front End Ui Developer Name Role Phone Community, Pcp Primary Care Provider Cassius Guevara MD Primary Care Provider Unavail able Community, Pcp Primary Care Provider Cassius Guevara MD Primary Care Provider Unavail able Encounter Details Date Type Department Care Team Description 12/22/2021 Pt. Non Urgent Medic al Question OBN - [address] [address] Jc Barbour, Social History Tobacco Use Types [...] suspected to have Coronavirus/COVID-19? No / Unsure 12/25/2021 2:51 PM EDT documented as of this encounter Plan of Treatment Not on file documented as of this encounter Visit Diagnoses Not on filedocumented in this encounter Care Teams Front End Ui Developer Relationship Specialty Start Date End Date Community, Pcp PCP - General Internal Medicine 11/17/21 03/02/22 Cassius Alvarez MD PCP - General Internal Medicine 03/03/22 07/08/22 Community, Pcp PCP - General Internal Medicine 07/09/22 01/19/23 Cassius Alvarez MD PCP - General Internal Medicine 01/20/23 documented as of this encounter
--- OUTSIDE RECORDS SUMMARY | 2024-09-11 19:16 | XMS_ITS | Encounter Summary ---
Author Organization [facility] Address [address] [place] [address] Care Team Providers Care Drilling Plant Operator Name Role Phone Community, Pcp Primary Care Provider Cassius Guevara MD Primary Care Provider Unavail able Community, Pcp Primary Care Provider Cassius Guevara MD Primary Care Provider Unavail able Encounter Details Date Type Department Care Team Description 11/27/2021 Telephone OBGYN - [place] [address] Jc Barbour, DO Social History Tobacco Use Types Packs/Day [...] In the last 10 days, have jasiel bar been in contact with someone who was confirmed or suspected to have Coronavirus/COVID-19? No / Unsure 11/24/2021 1:12 PM EDT documented as of this encounter Miscellaneous Notes * Telephone Encounter - Alfreda Espinoza - 11/27/2021 11:24 AM EDT Made pt aware due to a cancellation her arrival time for tomorrow will be 6:00 am and her surgery will start at 7:30 am. Pt understood. documented in this encounter Plan of Treatment Not on file documented as of this encounter Visit Diagnoses Not on filedocumented in this encounter Additional Health Concerns Infection Onset Date Last Indicated Resolved Time COVID-19 08/27/2021 08/28/2021 12/04/2021 9:44 AM EDT documented as of this encounter Care Teams Drilling Plant Operator Relationship Specialty Start Date End Date Community, Pcp PCP - General Internal Medicine 11/17/21 03/02/22 Cassius Alvarez MD PCP - General Internal Medicine 03/03/22 07/08/22 Community, Pcp PCP - General Internal Medicine 07/09/22 01/19/23 Cassius Alvarez MD PCP - General Internal Medicine 01/20/23 documented as of this encounter
--- OUTSIDE RECORDS SUMMARY | 2024-09-11 19:16 | XMS_ITS | Encounter Summary ---
Author Organization [facility] Address [address] [place] [address] Care Team Providers Care Radius Grinder Name Role Designer WriterKenny Morales MD Primary Care Provider Unavailab Neli Anderson MD Primary Care Provider Debora Brian Johnston PA-C Primary Care Provider Unavail able Cassius Alvarez MD Primary Care Provider Unavail able [facility], Pcp Primary Care Provider Unavailabl Cassius Heaton MD Primary Care Provider Unavail able [facility], Pcp Primary Care Provider Unavailabl e Cassius Alvarez MD Primary Care Provider Unavail able Reason for Visit * Reason Onset Date Comments injection 08/26/2015 Encounter Details Date Type Department Care Team Description 08/26/2015 Telephone Physiatry - [address] [address] Blanco Sanders DO injection Social History Tobacco Use Types Packs/Day Years [...] encounter Miscellaneous Notes * Telephone Encounter - Nadine Wood M.A. - 08/26/2015 12:26 PM EST Please advise * Telephone Encounter - Torri Robison - 08/26/2015 12:06 PM EST Patient is scheduled for an injection with Dr. Sanders on 09/02/15 at the [facility], but is having a lot of pain and is asking if Dr. Sanders can do the injection any sooner. I advised patient that heis only at the [facility] on Mondays, and that he only does injections under sedation at the [facility], but she is asking if he would consider doing her injection in the office sooner than the . documented in this encounter Plan of Treatment Not on file documented as of this encounter Visit Diagnoses Not on filedocumented in this encounter Additional Health Concerns Infection Onset Date Last Indicated Resolved Time COVID-19 08/27/2021 08/28/2021 12/04/2021 9:44 AM EDT documented as of this encounter Care Teams Radius Grinder Relationship Specialty Start Date End Date Kenny Morales MD PCP - General Internal Medicine 12/31/11 03/17/18 Neli Andrews MD PCP - General Internal Medicine 03/18/18 1 Brian Davis PA-C PCP - General Med/Peds 03/25/21 04/02/21 Cassius Alvarez MD PCP - General Internal Medicine 04/03/21 11/16/21 [facility], Pcp PCP - General Internal Medicine 11/17/21 03/02/22 Cassius Alvarez MD PCP - General Internal Medicine 03/03/22 07/08/22 [facility], Pcp PCP - General Internal Medicine 07/09/22 01/19/23 Cassius Alvarez MD PCP - General Internal Medicine 01/20/23 documented as of this encounter
--- OUTSIDE RECORDS SUMMARY | 2024-09-11 19:16 | XMS_ITS | Encounter Summary ---
Author Organization [facility] Address [address] [place] [address] Care Team Providers Care Boiler Shop Mechanic Name Role Phone Neli Andrews MD Primary Care Provider Debora Brian Johnston PA-C Primary Care Provider Unavail able Cassius Alvarez MD Primary Care Provider Unavail able [facility], Pcp Primary Care Provider UnavailCassius Schmitz MD Primary Care Provider Unavail able [facility], Pcp Primary Care Provider UnavailCassius Schmitz MD Primary Care Provider Unavail able Encounter Details Date Type Department Care Team Description 05/21/2020 Podiatry Professor Report Medical Records [address] [place] [address] Chelsea Singh MD Social History Tobacco Use Types Packs/Day [...] documented as of this encounter Care Teams Boiler Shop Mechanic Relationship Specialty Start Date End Date Neli [...]
--- OUTSIDE RECORDS SUMMARY | 2024-09-11 19:16 | XMS_ITS | Encounter Summary ---
Author Organization [facility] Address [address] [place] [address] Care Team Providers Care Review Assistant Name Role Phone [facility], Pcp Primary Care Provider Unavailabl e Cassius Alvarez MD Primary Care Provider Unavail able Reason for Visit * Reason Onset Date Comments 08/03/2022 PERSONNEL Encounter Details Date Type Department Care Team Description 08/03/2022 Telephone OBGYN - [address] [phone] Jc Barbour DO (PERSONNEL) Social History Tobacco Use Types Packs/Day Years [...] encounter Miscellaneous Notes * Telephone Encounter - Bouchra Perez - 08/03/2022 9:33 AM EST Patient caling requesting to speak to only Dr. Barbour, she has a few personnel concerning questions (only wants callback from dr. Barbour please ). Please advsie documented in this encounter Plan of Treatment Not on file documented as of this encounter Visit Diagnoses Not on filedocumented in this encounter Care Teams Review Assistant Relationship Specialty Start Date End Date [facility], Pcp PCP - General Internal Medicine 07/09/22 01/19/23 Cassius Alvarez MD PCP - General Internal Medicine 01/20/23 documented as of this encounter
--- OUTSIDE RECORDS SUMMARY | 2024-09-11 19:16 | XMS_ITS | Encounter Summary ---
[facility] Organization [facility] Address [address] [place] [address] Care Team Providers Care Installer Apprentice Name Role Phone [facility], Pcp Primary Care Provider Cassius Guevara MD Primary Care Provider Unavail able [facility], Pcp Primary Care Provider Cassius Guevara MD Primary Care Provider Unavail able Encounter Details Date Type Department Care Team Description 02/16/2022 Pt. Non Urgent Medical Question OBGYN - [place] [address] [place] [address] Jewels Rogers, CN [address] [place] [address] Social History Tobacco Use Types Packs/Day Years [...] on filedocumented in this encounter Care Teams Installer Apprentice Relationship Specialty Start Date End Date [facility], Pcp PCP - General Internal Medicine 11/17/21 03/02/22 Cassius Alvarez MD PCP - General Internal Medicine 03/03/22 07/08/22 [facility], Pcp PCP - General Internal Medicine 07/09/22 01/19/23 Cassius Alvarez MD PCP - General Internal Medicine 01/20/23 documented as of this encounter
--- OUTSIDE RECORDS SUMMARY | 2024-09-11 19:16 | XMS_ITS | Encounter Summary ---
[facility] Address [address] [place] [address] Care Team Providers Care Circle Edger Name Role Second Shift SupervisorKenny Morales MD Primary Care Provider Unavailab Neli [place] MD Primary Care Provider Debora Brian Johnston PA-C Primary Care Provider Unavail able Cassius Alvarez MD Primary Care Provider Unavail able [facility], Pcp Primary Care Provider Unavailabl Cassius Heaton MD Primary Care Provider Unavail able [facility], Pcp Primary Care Provider Unavailabl e Cassius Alvarez MD Primary Care Provider Unavail able Encounter Details Date Type Department Care Team Description 05/06/2015 Pt. Non Urgent Medical Question Chiropractic - [place] [address] [place] [address] Daniel Brothers D.C. Social History Tobacco Use Types Packs/Day [...] documented as of this encounter Care Teams Circle Edger Relationship Specialty Start Date End Date Kenny [...]
--- OUTSIDE RECORDS SUMMARY | 2024-09-11 19:16 | XMS_ITS | Encounter Summary ---
Author Organization [facility] Address [address] [place] [address] Care Team Providers Care Tractor Expert Name Role Phone Cassius Alvarez MD Primary Care Provider Unavail able [facility], Pcp Primary Care Provider Unavailabl e Cassius Alvarez MD Primary Care Provider Unavail able Encounter Details Date Type Department Care Team Description 04/14/2022 Pt. Non Urgent Medical Question OBGYN - [place] [address] [place] [address] Jewels Rogers, ANA [address] [place] [address] Social History Tobacco Use Types Packs/Day Years [...] on filedocumented in this encounter Care Teams Tractor Expert Relationship Specialty Start Date End Date Cassius Alvarez MD PCP - General Internal Medicine 03/03/22 07/08/22 [facility], Pcp PCP - General Internal Medicine 07/09/22 01/19/23 Cassius Alvarez MD PCP - General Internal Medicine 01/20/23 documented as of this encounter
--- OUTSIDE RECORDS SUMMARY | 2024-09-11 19:16 | XMS_ITS | Encounter Summary ---
Author Organization [facility] Address [address] [place] [address] Care Team Providers Care Cad Librarian Name Role Asbestos Removal WorkerKenny Morales MD Primary Care Provider Unavailab Neli [place] MD Primary Care Provider Debora Brian Johnston PA-C Primary Care Provider Unavail able Cassius Alvarez MD Primary Care Provider Unavail able [facility], Pcp Primary Care Provider Unavailabl Cassius Heaton MD Primary Care Provider Unavail able [facility], Pcp Primary Care Provider Unavailabl e Cassius Alvarez MD Primary Care Provider Unavail able Encounter Details Date Type Department Care Team Description 06/02/2015 Pt. Non Urgent Medical Question Chiropractic - [place] [address] [place] [address] Daniel Brotehrs D.C. Social History Tobacco Use Types Packs/Day [...] documented as of this encounter Care Teams Cad Librarian Relationship Specialty Start Date End Date Kenny [...]
--- OUTSIDE RECORDS SUMMARY | 2024-09-11 19:16 | XMS_ITS | Encounter Summary ---
Author Organization [facility] Address [address] [place] [address] Care Team Providers Care Car Groomer Name Role Phone Neli Andrews MD Primary Care Provider Debora Brian Johnston PA-C Primary Care Provider Unavail able Cassius Alvarez MD Primary Care Provider Unavail able [facility], Pcp Primary Care Provider Unavailabl Cassius Heaton MD Primary Care Provider Unavail able [facility], Pcp Primary Care Provider UnavailCassius Schmitz MD Primary Care Provider Unavail able Encounter Details Date Type Department Care Team Description 12/25/2019 Refill General Surgery - [place] 175 [facility] [address] [place] [phone] Dayana Frost MD 175 [facility] J[address] [place] [phone] Social History Tobacco Use Types Packs/Day [...] encounter Miscellaneous Notes * Telephone Encounter - Winter Sandra M.A. - 12/26/2019 8:12 AM EDT JIA WHEELER NEEDS A REFILL OF HER MULTIPLE VITAMIN 120 TAB documented in this encounter Plan of Treatment Not on file documented as of this encounter Visit Diagnoses Not on filedocumented in this encounter Additional Health Concerns Infection Onset Date Last Indicated Resolved Time COVID-19 08/27/2021 08/28/2021 12/04/2021 9:44 AM EDT documented as of this encounter Care Teams Car Groomer Relationship Specialty Start Date End Date Neli [...]
--- OUTSIDE RECORDS SUMMARY | 2024-09-11 19:16 | XMS_ITS | Encounter Summary ---
Author Organization [facility] Address [address] [place] [address] Care Team Providers Care Laser Operator Name Role Phone [facility], Pcp Primary Care Provider Cassius Guevara MD Primary Care Provider Unavail able [facility], Pcp Primary Care Provider Cassius Guevara MD Primary Care Provider Unavail able Encounter Details Date Type Department Care Team Description 02/23/2022 Pt. Non Urgent Medic al Question OBGYN - [place] [address] [place] [address] Jc Barbour, Social History Tobacco Use Types [...] on filedocumented in this encounter Care Teams Laser Operator Relationship Specialty Start Date End Date Community, Pcp PCP - General Internal Medicine 11/17/21 03/02/22 Cassius Alvarez MD PCP - General Internal Medicine 03/03/22 07/08/22 [facility], Pcp PCP - General Internal Medicine 07/09/22 01/19/23 Cassius Alvarez MD PCP - General Internal Medicine 01/20/23 documented as of this encounter
--- OUTSIDE RECORDS SUMMARY | 2024-09-11 19:16 | XMS_ITS | Encounter Summary ---
Author Organization [facility] Address [address] [place] [address] Care Team Providers Care Ekg Manager Name Role Small Parts Shaper OperatorKenny Morales MD Primary Care Provider Unavailab Neli [place] MD Primary Care Provider Debora Brian Johnston PA-C Primary Care Provider Unavail able Cassius Alvarez MD Primary Care Provider Unavail able [facility], Pcp Primary Care Provider Unavailabl Cassius Heaton MD Primary Care Provider Unavail able [facility], Pcp Primary Care Provider Unavailabl e Cassius Alvarez MD Primary Care Provider Unavail able Encounter Details Date Type Department Care Team Description 11/06/2015 Dry Wall Nailer Report Medical Records [address] [place] [address] Karen Contreras MD Social History Tobacco Use Types Packs/Day [...] documented as of this encounter Care Teams Ekg Manager Relationship Specialty Start Date End Date [...]
--- OUTSIDE RECORDS SUMMARY | 2024-09-11 19:17 | XMS_ITS | Encounter Summary ---
Author Organization [facility] Address [address] [place] [address] Care Team Providers Care Tool Grinder Set Up Operator Gear Name Role Phone Neli Andrews MD Primary Care Provider Debora Brian Johnston PA-C Primary Care Provider Unavail able Cassius Alvarez MD Primary Care Provider Unavail able [facility], Pcp Primary Care Provider Unavailabl Cassius Heaton MD Primary Care Provider Unavail able [facility], Pcp Primary Care Provider UnavailCassius Schmitz MD Primary Care Provider Unavail able Encounter Details Date Type Department Care Team Description 09/05/2020 Telephone General Surgery - [place] 175 [facility] [address] [place] [phone] Demetrice Rodríguez, MS,RDN,LDN 175 [facility] [address]ignesh [address] [place] [address] Social History Tobacco Use Types [...] have Coronavirus / COVID-19? Unable to assess 09/03/2020 8:40 AM EST documented as of this encounter Miscellaneous Notes * Telephone Encounter - Demetrice Rodríguez MS,RDN,LDN - 09/05/2020 3:47 PM EST Patient admitted to hospital 09/04 for vomiting, abdominal pain, and elevated liver enzymes. Has notvomited today but is getting IV Zofran. Pt on clear liquid diet and tolerating. GI is managing patient's care. Patient will be staying another night in patient. Wanted to keep you posted. documented in this encounter Plan of Treatment Not on file documented as of this encounter Visit Diagnoses Not on filedocumented in this encounter Additional Health Concerns Infection Onset Date Last Indicated Resolved Time COVID-19 08/27/2021 08/28/2021 12/04/2021 9:44 AM EDT documented as of this encounter Care Teams Tool Grinder Set Up Operator Gear Relationship Specialty Start Date End Date Neli [...]
--- OUTSIDE RECORDS SUMMARY | 2024-09-11 19:17 | XMS_ITS | Encounter Summary ---
Author Organization [facility] Address [address] [place] [address] Care Team Providers Care Flea Market Seller Name Role Phone Cassius Alvarez MD Primary Care Provider Unavail able Encounter Details Date Type Department Care Team Description 08/03/2023 Orders Only Medical Records [address] [place] [address] Dayana Frost MD [address] [place] [phone] Social History Tobacco Use Types Packs/Day [...] Date/Time Associated Diagnosis Comments OUTSIDE PATHOLOGY Routine 07/29/2023 documented in this encounter Results * OUTSIDE PATHOLOGY (07/29/2023) Dayana Frost MD OUTSIDE LAB documented in this encounter Visit Diagnoses Not on filedocumented in this encounter Care Teams Flea Market Seller Relationship Specialty Start Date End Date Cassius Alvarez MD PCP - General Internal Medicine 01/20/23 documented as of this encounter
--- OUTSIDE RECORDS SUMMARY | 2024-09-11 19:17 | XMS_ITS | Encounter Summary ---
Author Organization [facility] Address [address] [place] [address] Care Team Providers Care Rail Specialist Name Role Phone Cassius Alvarez MD Primary Care Provider Unavail able Encounter Details Date Type Department Care Team Description 05/13/2023 Night Time Nanny Report Medical Records [address] [place] [address] Cassius Alvarez MD Social History Tobacco Use Types Packs/Day [...] suspected to have Coronavirus/COVID-19? No / Unsure 05/12/2023 10:16 AM EDT documented as of this encounter Plan of Treatment Not on file documented as of this encounter Visit Diagnoses Not on filedocumented in this encounter Care Teams Rail Specialist Relationship Specialty Start Date End Date Cassius Alvarez MD PCP - General Internal Medicine 01/20/23 documented as of this encounter
--- OUTSIDE RECORDS SUMMARY | 2024-09-11 19:17 | XMS_ITS | Encounter Summary ---
Author Organization [facility] Address [address] [place] [address] Care Team Providers Care Rv Service Technician Name Role Phone Cassius Alvarez MD Primary Care Provider Unavail able Encounter Details Date Type Department Care Team Description 10/04/2023 Orders Only Medical Records [address] [place] [address] Vidya Powell CNM [address] [place] [address] Social History Tobacco Use Types Packs/Day Years [...] Date/Time Associated Diagnosis Comments OUTSIDE LAB Routine 05/27/2022 documented in this encounter Results * OUTSIDE LAB (05/27/2022) Vidya Powell CNM LAB documented in this encounter Visit Diagnoses Not on filedocumented in this encounter Care Teams Rv Service Technician Relationship Specialty Start Date End Date Cassius Alvarez MD PCP - General Internal Medicine 01/20/23 documented as of this encounter
--- OUTSIDE RECORDS SUMMARY | 2024-09-11 19:17 | XMS_ITS ---
Author Organization [facility] Address [address] [place] [address] Care Team Providers Care Centralized Traffic Control Operator Name Role Phone MERLOS, AMOS Unavailable [phone] Encounters Encounter Location Date Provider Diagnosis [facility] [address] [place] [address] 05/12/2023 AMOS MERLOS PLAN OF TREATMENT No Information Progress Notes * SHABBIR ARENASOB: 3 (32 yo F)Acc No.[id number]:05/12/2023 Patient:??DAINA ARENAS :1990?Age:32 Y?Sex:Fe male Address:[address] [place] [address] * true * Date:??
--- OUTSIDE RECORDS SUMMARY | 2024-09-11 19:17 | XMS_ITS | Encounter Summary ---
Author Organization [facility] Address [address] [place] [address] Care Team Providers Care Chief Business Officer Name Role Quarry Extraction WorkerKenny Morales MD Primary Care Provider Unavailab Neli [place] MD Primary Care Provider Debora Brian Johnston PA-C Primary Care Provider Unavail able Cassius Alvarez MD Primary Care Provider Unavail able [facility], Pcp Primary Care Provider Unavailabl Cassius Heaton MD Primary Care Provider Unavail able [facility], Pcp Primary Care Provider Unavailabl Cassius Heaton MD Primary Care Provider Unavail able Encounter Details Date Type Department Care Team Description 08/04/2016 [facility] Medical Records [address] [place] [address] Abstract, Provider Social History Tobacco Use Types [...] documented as of this encounter Care Teams Chief Business Officer Relationship Specialty Start Date End Date Kenny [...]
--- OUTSIDE RECORDS SUMMARY | 2024-09-11 19:17 | XMS_ITS | Encounter Summary ---
Author Organization [facility] Address [address] [place] [address] Care Team Providers Care Water Pumping Station Engineer Name Role Phone Neli Andrews MD Primary [...] Details Date Type Department Care Team Description 10/24/2020 Hospital Medical Records [address] [place] [address] Dayana Frost MD [address] [place] [phone] Social History Tobacco Use Types Packs/Day [...] have Coronavirus / COVID-19? No / Unsure 10/21/2020 9:57 AM EDT documented as of this encounter Plan of Treatment Not on file documented as of this encounter Visit Diagnoses Not on filedocumented in this encounter Additional Health Concerns Infection Onset Date Last Indicated Resolved Time COVID-19 08/27/2021 08/28/2021 12/04/2021 9:44 AM EDT documented as of this encounter Care Teams Water Pumping Station Engineer Relationship Specialty Start Date End Date Neli Andrews MD PCP - General Internal Medicine 03/18/18 1 Brian Davis PA-C PCP - General Med/Peds 03/25/21 04/02/21 Cassius Alvarez MD PCP - General Internal Medicine 04/03/21 11/16/21 [facility]cp PCP - General Internal Medicine 11/17/21 03/02/22 Cassius Alvarez MD PCP - General Internal Medicine 03/03/22 07/08/22 [facility], Pcp PCP - General Internal Medicine 07/09/22 01/19/23 Cassius lAvarez MD PCP - General Internal Medicine 01/20/23 documented as of this encounter
--- OUTSIDE RECORDS SUMMARY | 2024-09-11 19:17 | XMS_ITS | Encounter Summary ---
Author Organization [facility] Address [address] [place] [address] Care Team Providers Care Lab Aide Name Role ParkereKnny Morales MD Primary Care Provider Unavailab Neli [place] MD Primary Care Provider Debora Brian Johnston PA-C Primary Care Provider Unavail able Cassius Alvarez MD Primary Care Provider Unavail able [facility], Pcp Primary Care Provider Unavailabl Cassius Heaton MD Primary Care Provider Unavail able [facility], Pcp Primary Care Provider Unavailabl e Cassius Alvarez MD Primary Care Provider Unavail able Encounter Details Date Type Department Care Team Description 01/29/2016 Radiation Therapist Report Medical Records [address] [place] [address] Silvino Valero MD Social History Tobacco Use [...] documented as of this encounter Care Teams Lab Aide Relationship Specialty Start Date End Date Kenny [...]
--- OUTSIDE RECORDS SUMMARY | 2024-09-11 19:17 | XMS_ITS | Encounter Summary ---
Author Organization [facility] Address [address] [place] [address] Care Team Providers Care Canvas Marker Name Role Phone Cassius Alvarez MD Primary Care Provider Unavail able Encounter Details Date Type Department Care Team Description 02/01/2024 Refill Bariatric Surgery - [place] 175 [facility] [address] [place] [address] Shanti Rivero PA-C 271 [facility] [address] [place] [address] Social History Tobacco Use Types [...] on filedocumented in this encounter Care Teams Canvas Marker Relationship Specialty Start Date End Date Cassius Alvarez MD PCP - General Internal Medicine 01/20/23 documented as of this encounter
--- OUTSIDE RECORDS SUMMARY | 2024-09-11 19:17 | XMS_ITS | Encounter Summary ---
Author Organization [facility] Address [address] [place] [address] Care Team Providers Care Learning And Development Consultant Name Role Phone Cassius Alvarez MD Primary Care Provider Unavail able Encounter Details Date Type Department Care Team Description 08/02/2023 Pt. Non Urgent Medical Question Bariatric Surgery - [place] 175 [facility] [address] [place] [address] Dayana Frost MD 175 [facility] [address] [place] [address] Social History Tobacco Use Types [...] on filedocumented in this encounter Care Teams Learning And Development Consultant Relationship Specialty Start Date End Date Cassius Alvarez MD PCP - General Internal Medicine 01/20/23 documented as of this encounter
--- OUTSIDE RECORDS SUMMARY | 2024-09-11 19:17 | XMS_ITS | Encounter Summary ---
Author Organization [facility] Address [address] [place] [address] Care Team Providers Care Civil Engineer Land Development Name Role Phone Cassius Alvarez MD Primary Care Provider Unavail able Encounter Details Date Type Department Care Team Description 09/01/2023 [facility] Medical Records [address] [place] [address] Blanco Emanuel MD Social History Tobacco Use Types Packs/Day [...] on filedocumented in this encounter Care Teams Civil Engineer Land Development Relationship Specialty Start Date End Date Cassius Alvarez MD PCP - General Internal Medicine 01/20/23 documented as of this encounter
--- OUTSIDE RECORDS SUMMARY | 2024-09-11 19:17 | XMS_ITS | Encounter Summary ---
Author Organization [facility] Address [address] [place] [address] Care Team Providers Care City Manager Name Role Eyewear ConsultantKenny Morales MD Primary Care Provider Unavailab Neli Anderson MD Primary Care Provider Debora Brian Johnston PA-C Primary Care Provider Unavail able Cassius Alvarez MD Primary Care Provider Unavail able [facility], Pcp Primary Care Provider Unavailabl Cassius Heaton MD Primary Care Provider Unavail able [facility], Pcp Primary Care Provider Unavailabl e Cassius Alvarez MD Primary Care Provider Unavail able Encounter Details Date Type Department Care Team Description 01/18/2015 Polisher Brass Report Medical Records [address] [place] [id number] Karen Contreras MD Social History Tobacco Use [...] documented as of this encounter Care Teams City Manager Relationship Specialty Start Date End Date [...]
--- OUTSIDE RECORDS SUMMARY | 2024-09-11 19:17 | XMS_ITS | Encounter Summary ---
Author Organization [facility] Address [address] [place] [address] Care Team Providers Care Medical Center Director Name Role Behavior ClinicianKenny Morales MD Primary Care Provider Unavailab Neli Anderson MD Primary Care Provider Debora Brian Johnston PA-C Primary Care Provider Unavail able Cassius Alvarez MD Primary Care Provider Unavail able [facility], Pcp Primary Care Provider Unavailabl Cassius Heaton MD Primary Care Provider Unavail able [facility], Pcp Primary Care Provider Unavailabl Cassius Heaton MD Primary Care Provider Unavail able Encounter Details Date Type Department Care Team Description 09/02/2017 Pt. Non Urgent Medical Question Physiatry - [address] [address] Blanco Sanders DO Chronic bilateral low back pain with bilateral sciatica (Primary Dx); Sacroiliac pain Social History Tobacco Use Types Packs/Day Years [...] as of this encounter Progress Notes * Zarina Perez M.A. - 09/02/2017 8:16 AM ESTFrom: Jia Valdez To: Blanco Sanders DO Sent: 09/02/2017 7:31 AM EST Subject: Jia Valdez Hi Dr Sanders, my back has been okay the last couple months, but over the last month it's been really bad again. I've talked to my parents and we were wondering if we could try to do another set of cortisone injections? documented in this encounter Plan of Treatment Scheduled Orders Name Type Priority Associated Diagnoses Orde r Schedule PHYSIATRY PROCEDURE PHYSIATRY Routine Chronic bilateral low back pain with bilateral sciatica Sacroiliac pain Ordered: 09/02/2017 documented as of this encounter Visit Diagnoses Diagnosis Chronic bilateral low back pain with bilateral sciatica- Primary Sacroiliac pain Disorders of sacrum documented in this encounter Additional Health Concerns Infection Onset Date Last Indicated Resolved Time COVID-19 08/27/2021 08/28/2021 12/04/2021 9:44 AM EDT documented as of this encounter Care Teams Medical Center Director Relationship Specialty Start Date End Date Kenny Morales MD PCP - General Internal Medicine 12/31/11 03/17/18 Neli Andrews MD PCP - General Internal Medicine 03/18/18 1 Brian Davis PA-C PCP - General Med/Peds 03/25/21 04/02/21 Cassius Alvarez MD PCP - General Internal Medicine 04/03/21 11/16/21 [facility], Pcp PCP - General Internal Medicine 11/17/21 03/02/22 Cassius Alvarez MD PCP - General Internal Medicine 03/03/22 07/08/22 [facility], Pcp PCP - General Internal Medicine 07/09/22 01/19/23 Cassius Alvarez MD PCP - General Internal Medicine 01/20/23 documented as of this encounter
--- OUTSIDE RECORDS SUMMARY | 2024-09-11 19:17 | XMS_ITS | Encounter Summary ---
Author Organization [facility] Address [address] [place] [address] Care Team Providers Care Auto Specialty Services Manager Name Role Filter Press OperatorKenny Morales MD Primary Care Provider Unavailab Neli Anderson MD Primary Care Provider Debora Brian Johnston PA-C Primary Care Provider Unavail able Cassius Alvarez MD Primary Care Provider Unavail able [facility], Pcp Primary Care Provider UnavailCassius Schmitz MD Primary Care Provider Unavail able [facility], Pcp Primary Care Provider UnavailCassius Schmitz MD Primary Care Provider Unavail able Encounter Details Date Type Department Care Team Description 09/03/2016 Pt. Non Urgent Medic al Question Physiatry - [address] [address] Blanco Flores DO Social History Tobacco Use [...] Progress Notes * Nadine Wood M.A. - 09/03/2016 9:45 AM ESTFrom: Jia Valdez To: Blanco Flores DO Sent: 09/03/2016 9:18 AM EST Subject: Back pain Hi dr flores, it's been about a week and a half since the injections and the pain is still really bad. I've had a few days where the pain was actually really bearable. Yesterday and today it's been getting bad again. I've been using ice ever since the injections. I have been talking to my mom and we have discussed different options and I wanted to run them by you to see what you think. 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 I had stopped taking it back in April or May and I haven't seen a difference being on it versus being off of it. And since it's such a strong medication, I'd rather just not take it especially if i don'tsee a difference. If it helped me more I'd still take it. Another thing we were thinking was orthopedic just to rule things out at this point. I've been thinking about maybe going back to see a vacuum truck driver in [place] again, but I'm just confused and its just gotten to the point where I don't evencare if a doctor suggested surgery even just to see if there's anything wrong that's not showing upon the MRI or Ct scan. Whenever I'm standing for a while, I can lean back and my back cracks. It sometimes feels good but sometimes it hurts. Can you possibly send a script over to [facility] for something that I can take short term just to help until we can figure out what our next step is? Also, is there a chance that I could retry the dermatran ointment stuff? I remember that it caused a rash last time, but I remember it helping for a while. But I think it's worth a try. documented in this encounter Plan of Treatment Not on file documented as of this encounter Visit Diagnoses Not on filedocumented in this encounter Additional Health Concerns Infection Onset Date Last Indicated Resolved Time COVID-19 08/27/2021 08/28/2021 12/04/2021 9:44 AM EDT documented as of this encounter Care Teams Auto Specialty Services Manager Relationship Specialty Start Date End Date [...]
--- OUTSIDE RECORDS SUMMARY | 2024-09-11 19:17 | XMS_ITS | Encounter Summary ---
Author [facility] Address [address] [place] [address] Care Team Providers Care Moccasin Sewer Name Role Phone Cassius Alvarez MD Primary Care Provider Unavail able Encounter Details Date Type Department Care Team Description 09/03/2023 [facility] Medical Records [address] [place] [id number] [place] [address] Social History Tobacco Use Types Packs/Day Years [...] on filedocumented in this encounter Care Teams Moccasin Sewer Relationship Specialty Start Date End Date Cassius Alvarez MD PCP - General Internal Medicine 01/20/23 documented as of this encounter
--- OUTSIDE RECORDS SUMMARY | 2024-09-11 19:17 | XMS_ITS | Encounter Summary ---
Author Organization [facility] Address [address] [place] [address] Care Team Providers Care Home School Liaison Officer Name Role Space BuyerKenny Morales MD Primary Care Provider Unavailab Neli Anderson MD Primary Care Provider Debora Brian Johnston PA-C Primary Care Provider Unavail able Cassius Alvarez MD Primary Care Provider Unavail able [facility], Pcp Primary Care Provider UnavailCassius Schmitz MD Primary Care Provider Unavail able [facility], Pcp Primary Care Provider UnavailCassius Schmitz MD Primary Care Provider Unavail able Encounter Details Date Type Department Care Team Description 09/09/2017 Extruding Press Adjuster Report Medical Records [address] [place] [id number] Social History Tobacco Use Types Packs/Day Years [...] documented as of this encounter Care Teams Home School Liaison Officer Relationship Specialty Start Date End Date [...]
--- OUTSIDE RECORDS SUMMARY | 2024-09-11 19:17 | XMS_ITS | Encounter Summary ---
Author Organization [facility] Address [address] [place] [address] Care Team Providers Care Perinatal Instructor Name Role Phone Neli Andrews MD Primary Care Provider Debora Brian Johnston PA-C Primary Care Provider Unavail able Cassius Alvarez MD Primary Care Provider Unavail able [facility], Pcp Primary Care Provider Unavailabl Cassius Heaton MD Primary Care Provider Unavail able [facility], Pcp Primary Care Provider UnavailCassius Schmitz MD Primary Care Provider Unavail able Reason for Visit * Reason Onset Date Comments Advice 09/05/2020 Encounter Details Date Type Department Care Team Description 09/05/2020 Telephone General Surgery - [place] [address] [phone] Demetrice Rodríguez, MS,RDN,LDN [address] [phone] Advice Social History Tobacco Use [...] Miscellaneous Notes * Telephone Encounter - Lillie Ainsley - 09/05/2020 1:09 PM EST error documented in this encounter Plan of Treatment Not on file documented as of this encounter Visit Diagnoses Not on filedocumented in this encounter Additional Health Concerns Infection Onset Date Last Indicated Resolved Time COVID-19 08/27/2021 08/28/2021 12/04/2021 9:44 AM EDT documented as of this encounter Care Teams Perinatal Instructor Relationship Specialty Start Date End Date Neli [...]
--- OUTSIDE RECORDS SUMMARY | 2024-09-11 19:17 | XMS_ITS | Encounter Summary ---
Author Organization [facility] Address [address] [place] [address] Care Team Providers Care State Game Warden Name Role Phone Neli Andrews MD Primary Care Provider Debora Brian Johnston PA-C Primary Care Provider Unavail able Cassius Alvarez MD Primary Care Provider Unavail able [facility], Pcp Primary Care Provider UnavailCassius Schmitz MD Primary Care Provider Unavail able [facility], Pcp Primary Care Provider UnavailCassius Schmitz MD Primary Care Provider Unavail able Encounter Details Date Type Department Care Team Description 09/05/2020 [facility] Medical Records [address] [place] [id number] Marylu Cisneros MD Social History Tobacco Use [...] documented as of this encounter Care Teams State Game Warden Relationship Specialty Start Date End Date Neli [...]
--- OUTSIDE RECORDS SUMMARY | 2024-09-11 19:17 | XMS_ITS | Encounter Summary ---
Author Organization [facility] Address [address] [place] [address] Care Team Providers Care Directory Carrier Name Role Phone Cassius Alvarez MD Primary Care Provider Unavail able Encounter Details Date Type Department Care Team Description 07/29/2023 Hospital Medical Records [address] [place] [address] Dayana Frost MD [address] [place] [phone] Social History Tobacco Use Types Packs/Day [...] on filedocumented in this encounter Care Teams Directory Carrier Relationship Specialty Start Date End Date Cassius Alvarez MD PCP - General Internal Medicine 01/20/23 documented as of this encounter
--- OUTSIDE RECORDS SUMMARY | 2024-09-11 19:17 | XMS_ITS | Encounter Summary ---
Author Organization [facility] Address [address] [place] [address] Care Team Providers Care Brimming Machine Operator Name Role Phone Cassius Alvarez MD Primary Care Provider Unavail able Encounter Details Date Type Department Care Team Description 03/09/2024 Pt. Non Urgent Medical Question Bariatric Surgery - [place] 175 [facility] [address] [place] [phone] Shanti Rivero PA-C [address] [facility] [address] [place] [address] Social History Tobacco Use Types [...] on filedocumented in this encounter Care Teams Brimming Machine Operator Relationship Specialty Start Date End Date Cassius Alvarez MD PCP - General Internal Medicine 01/20/23 documented as of this encounter
--- OUTSIDE RECORDS SUMMARY | 2024-09-11 19:17 | XMS_ITS | Encounter Summary ---
Author Organization [facility] Address [address] [place] [address] Care Team Providers Care Refrigerator Room Clerk Name Role Phone Neli Andrews MD Primary Care Provider Debora Brian Johnston PA-C Primary Care Provider Unavail able Cassius Alvarez MD Primary Care Provider Unavail able [facility], Pcp Primary Care Provider UnavailCassius Schmitz MD Primary Care Provider Unavail able [facility], Pcp Primary Care Provider UnavailCassius Schmitz MD Primary Care Provider Unavail able Encounter Details Date Type Department Care Team Description 10/06/2020 Pt. Non Urgent Medical Question General Surgery - [place] 175 [facility] [address] [place] [phone] Dayana Frost MD 175 [facility] Jignesh [address] [place] [phone] Social History Tobacco Use Types Packs/Day [...] have Coronavirus / COVID-19? No / Unsure 10/02/2020 10:08 AM EDT documented as of this encounter Miscellaneous Notes * Telephone Encounter - Winter Sandra M.A. - 10/07/2020 2:[address] Frost, please read the note from Jia. She is having great anxiety and wants her Mom to go into the preop before her procedure. She was not able to have the endoscopy/colonoscopy. documented in this encounter Plan of Treatment Not on file documented as of this encounter Visit Diagnoses Not on filedocumented in this encounter Additional Health Concerns Infection Onset Date Last Indicated Resolved Time COVID-19 08/27/2021 08/28/2021 12/04/2021 9:44 AM EDT documented as of this encounter Care Teams Refrigerator Room Clerk Relationship Specialty Start Date End Date Neli [...]
--- OUTSIDE RECORDS SUMMARY | 2024-09-11 19:17 | XMS_ITS | Encounter Summary ---
Author Organization [facility] Address [address] [place] [address] Care Team Providers Care Latex Fashions Designer Name Role Spring Up SupervisorKenny Morales MD Primary Care Provider Unavailab Neli Anderson MD Primary Care Provider Debora Brian Johnston PA-C Primary Care Provider Unavail able Cassius Alvarez MD Primary Care Provider Unavail able [facility], Pcp Primary Care Provider UnavailCassius Schmitz MD Primary Care Provider Unavail able [facility], Pcp Primary Care Provider Unavailabl Cassius Heaton MD Primary Care Provider Unavail able Encounter Details Date Type Department Care Team Description 11/30/2016 Release of Information Medical Records [address] [place] [id number] Abstract, Provider Social History Tobacco Use Types [...] documented as of this encounter Care Teams Latex Fashions Designer Relationship Specialty Start Date End Date Kenny [...]
--- OUTSIDE RECORDS SUMMARY | 2024-09-11 19:17 | XMS_ITS | Encounter Summary ---
Author Organization [facility] Address [address] [place] [address] Care Team Providers Care Electric Motor Analyst Name Role Title CloserKenny Morales MD Primary Care Provider Unavailab Neli [...] Details Date Type Department Care Team Description 06/16/2017 Production Solderer Report Medical Records [address] [place] [address], [facility] Social History Tobacco Use Types Packs/Day Years [...] as of this encounter Care Teams Electric Motor Analyst Relationship Specialty Start Date End Date Kenny [...]
--- OUTSIDE RECORDS SUMMARY | 2024-09-11 19:17 | XMS_ITS | Encounter Summary ---
[facility] Address [address] [place] [address] Care Team Providers Care Deportation Examiner Name Role Phone Cassius Alvarez MD Primary Care Provider Unavail able Encounter Details Date Type Department Care Team Description 2023 Orders Only Medical Records [address] [place] [address] Dayana Frost MD [address] [place] [phone] Social History Tobacco Use Types Packs/Day [...] Date/Time Associated Diagnosis Comments OUTSIDE PATHOLOGY Routine 10/12/2023 documented in this encounter Results * OUTSIDE PATHOLOGY (10/12/2023) Dayana Frost MD OUTSIDE LAB documented in this encounter Visit Diagnoses Not on filedocumented in this encounter Care Teams Deportation Examiner Relationship Specialty Start Date End Date Cassius Alvarez MD PCP - General Internal Medicine 01/20/23 documented as of this encounter
--- OUTSIDE RECORDS SUMMARY | 2024-09-11 19:17 | XMS_ITS | Encounter Summary ---
Author [facility] Address [address] [place] [address] Care Team Providers Care Screen Vent Binder Name Role Phone Neli Andrews MD Primary Care Provider Debora Brian Johnston PA-C Primary Care Provider Unavail able Cassius Alvarez MD Primary Care Provider Unavail able [facility], Pcp Primary Care Provider Unavailabl Cassius Heaton MD Primary Care Provider Unavail able [facility], Pcp Primary Care Provider UnavailCassius Schmitz MD Primary Care Provider Unavail able Reason for Visit * Reason Comments E-prescribe Rx Request Encounter Details Date Type Department Care Team Description 09/11/2020 Refill General Surgery - [place] 175 [facility] [address] [place] [phone] Dayana Frost MD [address] [phone] E-prescribe Rx Request Social History Tobacco Use [...] Telephone Encounter - Winter Sandra M.A. - 09/11/2020 9:[address] Frost's patient needs a refill of pantoprazole 40 mg tablets Please refill documented in this encounter Plan of Treatment Not on file documented as of this encounter Visit Diagnoses Not on filedocumented in this encounter Additional Health Concerns Infection Onset Date Last Indicated Resolved Time COVID-19 08/27/2021 08/28/2021 12/04/2021 9:44 AM EDT documented as of this encounter Care Teams Screen Vent Binder Relationship Specialty Start Date End Date Neli [...]
--- OUTSIDE RECORDS SUMMARY | 2024-09-11 19:17 | XMS_ITS | Encounter Summary ---
Author Organization [facility] Address [address] [place] [address] Care Team Providers Care Pit Clerk Name Role Phone Cassius Alvarez MD Primary Care Provider Unavail able [facility], Pcp Primary Care Provider Cassius Guevara MD Primary Care Provider Unavail able [facility], Pcp Primary Care Provider UnavailCassius Schmitz MD Primary Care Provider Unavail able Encounter Details Date Type Department Care Team Description 05/16/2021 Orders Only Medical Records [address] [place] [address] Martinez Peacock MD [address] [place] [address] [place] [id number] Social History Tobacco Use Types Packs/Day Years [...] have Coronavirus / COVID-19? No / Unsure 05/16/2021 10:19 AM EDT documented as of this encounter Plan of Treatment Not on file documented as of this encounter Procedures Procedure Name Priority Date/Time Associated Diagnosis Comments OUTSIDE PATHOLOGY Routine 05/12/2021 documented in this encounter Results * OUTSIDE PATHOLOGY (05/12/2021) Martinez Peacock MD OUTSIDE LAB documented in this encounter Visit Diagnoses Not on filedocumented in this encounter Additional Health Concerns Infection Onset Date Last Indicated Resolved Time COVID-19 08/27/2021 08/28/2021 12/04/2021 9:44 AM EDT documented as of this encounter Care Teams Pit Clerk Relationship Specialty Start Date End Date Cassius Alvarez MD PCP - General Internal Medicine 04/03/21 11/16/21 [facility], Pcp PCP - General Internal Medicine 11/17/21 03/02/22 Cassius Alvarez MD PCP - General Internal Medicine 03/03/22 07/08/22 [facility], Pcp PCP - General Internal Medicine 07/09/22 01/19/23 Cassius Alvarez MD PCP - General Internal Medicine 01/20/23 documented as of this encounter
--- OUTSIDE RECORDS SUMMARY | 2024-09-11 19:17 | XMS_ITS | Encounter Summary ---
Author Organization [facility] Address [address] [place] [address] Care Team Providers Care Hotel Service Supervisor Name Role Phone Cassius Alvarez MD Primary Care Provider Unavail able Reason for Visit * Reason Onset Date Comments Gynecological Problem 08/12/2023 Encounter Details Date Type Department Care Team Description 08/12/2023 Telephone OBGYN - [address] [address] Shannon He MD [address] [place] [phone] Gynecological Problem Social History Tobacco Use Types Packs/Day Years [...] encounter Miscellaneous Notes * Telephone Encounter - Ruthy Mason R.N. - 08/12/2023 11:38 AM EST Spoke with patient.Went to her post op visit and provider requests an appt with ObGyn Provider regarding a gauze that was found during her ecent surgery.Appt scheduled 08/19/23 . * Telephone Encounter - Peggy Michelle - 08/12/2023 10:09 AM EST Chief Complaint/problem: Patient would like to speak to nurse - she had gastric bypass surgery 2 weeks ago and when they did surgery they found a gauze pad from previous surgery which was in [address] Barbour How long has the patient had this problem? - Pt???s SUPERVISOR WARPING DEPARTMENT provider: Shannon He MD Last menstrual period (LMP) or EDC (due date): N/A documented in this encounter Plan of Treatment Not on file documented as of this encounter Visit Diagnoses Not on filedocumented in this encounter Care Teams Hotel Service Supervisor Relationship Specialty Start Date End Date Cassius Alvarez MD PCP - General Internal Medicine 01/20/23 documented as of this encounter
--- OUTSIDE RECORDS SUMMARY | 2024-09-11 19:17 | XMS_ITS | Encounter Summary ---
Author Organization [facility] Address [address] [place] [address] Care Team Providers Care Circular Gang Saw Operator Name Role Phone Neli Andrews MD Primary Care Provider Debora Brian Johnston PA-C Primary Care Provider Unavail able Cassius Alvarez MD Primary Care Provider Unavail able [facility], Pcp Primary Care Provider UnavailCassius Schmitz MD Primary Care Provider Unavail able [facility], Pcp Primary Care Provider UnavailCassius Schmitz MD Primary Care Provider Unavail able Encounter Details Date Type Department Care Team Description 10/24/2020 Hospital Medical Records [address] [place] [address] Dayana Frost MD [address] [place] [phone] Social History Tobacco Use Types Packs/Day [...] documented as of this encounter Care Teams Circular Gang Saw Operator Relationship Specialty Start Date End Date Neli Andrews MD PCP - General Internal Medicine 03/18/18 1 Brian Davis PA-C PCP - General Med/Peds 03/25/21 04/02/21 Cassius Alvarez MD PCP - General Internal Medicine 04/03/21 11/16/21 [facility], Pcp PCP - General Internal Medicine 11/17/21 03/02/22 Cassius Alvarez MD PCP - General Internal Medicine 03/03/22 07/08/22 [facility], Pcp PCP - General Internal Medicine 07/09/22 01/19/23 Cassius Alvarez MD PCP - General Internal Medicine 01/20/23 documented as of this encounter
--- OUTSIDE RECORDS SUMMARY | 2024-09-11 19:17 | XMS_ITS | Encounter Summary ---
Author Organization [facility] Address [address] [place] [address] Care Team Providers Care Diesel Crane Operator Name Role Laborer Brooder FarmKenny Morales MD Primary Care Provider Unavailab Neli Anderson MD Primary Care Provider Debora Brian Johnston PA-C Primary Care Provider Unavail able Cassius Alvarez MD Primary Care Provider Unavail able [facility], Pcp Primary Care Provider UnavailCassius Schmitz MD Primary Care Provider Unavail able [facility], Pcp Primary Care Provider UnavailCassius Schmitz MD Primary Care Provider Unavail able Encounter Details Date Type Department Care Team Description 02/13/2016 Pt. Non Urgent Medical Question Medicine/Pediatrics - [address] [phone] Neli Andrews MD Social History Tobacco Use Types Packs/Day [...] as of this encounter Progress Notes * Cassidy Austin M.A. - 02/13/2016 10:54 AM EDTFrom: Jia Valdez To: Neli Andrews MD Sent: 02/13/2016 10:31 AM EDT Subject: Jia Valdez Ultrasound Hello! I'm glad my ultrasound was normal. I haven't had the heartburn feeling as bad as it was since that one night. It's definitely still there, but it hasn't been as bad. I've been sticking to a pretty bland diet because I don't want to trigger anything. documented in this encounter Plan of Treatment Not on file documented as of this encounter Visit Diagnoses Not on filedocumented in this encounter Additional Health Concerns Infection Onset Date Last Indicated Resolved Time COVID-19 08/27/2021 08/28/2021 12/04/2021 9:44 AM EDT documented as of this encounter Care Teams Diesel Crane Operator Relationship Specialty Start Date End Date Kenny Morales MD PCP - General Internal Medicine 12/31/11 03/17/18 Neli Andrews MD PCP - General Internal Medicine 03/18/18 1 Brian Davis PA-C PCP - General Med/Peds 03/25/21 04/02/21 Cassius Alvarez MD PCP - General Internal Medicine 04/03/21 11/16/21 [facility], Pcp PCP - General Internal Medicine 11/17/21 03/02/22 Cassius Alvarez MD PCP - General Internal Medicine 03/03/22 07/08/22 [facility], Pcp PCP - General Internal Medicine 07/09/22 01/19/23 Cassius Alvarez MD PCP - General Internal Medicine 01/20/23 documented as of this encounter
--- OUTSIDE RECORDS SUMMARY | 2024-09-11 19:17 | XMS_ITS | Encounter Summary ---
Author Organization [facility] Address [address] [place] [address] Care Team Providers Care Assembler Product Name Role Phone Neli Andrews MD Primary Care Provider Debora Brian Johnston PA-C Primary Care Provider Unavail able Cassius Alvarez MD Primary Care Provider Unavail able [facility], Pcp Primary Care Provider UnavailCassius Schmitz MD Primary Care Provider Unavail able [facility], Pcp Primary Care Provider UnavailCassius Schmitz MD Primary Care Provider Unavail able Encounter Details Date Type Department Care Team Description 09/19/2020 Boat Engine Mechanic Report Medical Records [address] [place] [id number] Prashant Brady MD Social History Tobacco Use [...] have Coronavirus / COVID-19? No / Unsure 09/19/2020 12:16 PM EST documented as of this encounter Plan of Treatment Not on file documented as of this encounter Visit Diagnoses Not on filedocumented in this encounter Additional Health Concerns Infection Onset Date Last Indicated Resolved Time COVID-19 08/27/2021 08/28/2021 12/04/2021 9:44 AM EDT documented as of this encounter Care Teams Assembler Product Relationship Specialty Start Date End Date Neli [...]
--- OUTSIDE RECORDS SUMMARY | 2024-09-11 19:18 | XMS_ITS | Encounter Summary ---
Author Organization [facility] Address [address] [place] [address] Care Team Providers Care Product Responsibility Liaison Name Role Phone Casisus Alvarez MD Primary Care Provider Unavail able Encounter Details Date Type Department Care Team Description 03/22/2024 Pt. Non Urgent Medical Question Bariatric Surgery - [place] [address] [facility] [address] [place] [address] Shanti Rivero PA-C [address] [facility] [address] [place] [address] Social History Tobacco Use Types [...] on filedocumented in this encounter Care Teams Product Responsibility Liaison Relationship Specialty Start Date End Date Cassius Alvarez MD PCP - General Internal Medicine 01/20/23 documented as of this encounter
--- OUTSIDE RECORDS SUMMARY | 2024-09-11 19:18 | XMS_ITS | Encounter Summary ---
Author Organization [facility] Address [address] [place] [address] Care Team Providers Care Fast Food Team Member Name Role Phone Neli Andrews MD Primary Care Provider Debora Brian Johnston PA-C Primary Care Provider Unavail able Cassius Alvarez MD Primary Care Provider Unavail able [facility], Pcp Primary Care Provider UnavailCassius Schmitz MD Primary Care Provider Unavail able [facility], Pcp Primary Care Provider UnavailCassius Schmitz MD Primary Care Provider Unavail able Encounter Details Date Type Department Care Team Description 05/06/2018 Pt. Non Urgent Medic al Question OBGYN - [place] [address] [place] [id number] Kristofer Ferrari CNM Social History Tobacco Use Types Packs/Day Years [...] as of this encounter Progress Notes * JANA Mireles, RN - 05/09/2018 8:33 AM EDTFrom: Jia Valdez To: Kristofer Ferrari CNM Sent: 05/06/2018 7:10 PM EDT Subject: Depo shot Hello, I have only had one depo shot and am due for my next on the 9th. I think I would like to take a break from controls for a while. I have been having EXTREME mood swings and severe depression and I want to take some time off of control. I have spoken to not only my boyfriend about this but also my parents and they all think it would be beneficial. I just wanted to keep you in theloop. I will continue to use protection and I will call if we have any questions. Thank you. documented in this encounter Plan of Treatment Not on file documented as of this encounter Visit Diagnoses Not on filedocumented in this encounter Additional Health Concerns Infection Onset Date Last Indicated Resolved Time COVID-19 08/27/2021 08/28/2021 12/04/2021 9:44 AM EDT documented as of this encounter Care Teams Fast Food Team Member Relationship Specialty Start Date End Date Neli [...]
--- OUTSIDE RECORDS SUMMARY | 2024-09-11 19:18 | XMS_ITS | Encounter Summary ---
Author Organization [facility] Address [address] [place] [address] Care Team Providers Care Dowel Inspector Name Role Phone Cassius Alvarez MD Primary Care Provider Unavail able [facility], Pcp Primary Care Provider Cassius Guevara MD Primary Care Provider Unavail able [facility], Pcp Primary Care Provider UnavailCassius Schmitz MD Primary Care Provider Unavail able Encounter Details Date Type Department Care Team Description 05/14/2021 Orders Only Medical Records [address] [place] [address] Martinez Peacock MD [address] [place] [address] [place] [address] Social History Tobacco Use Types Packs/Day Years [...] Date/Time Associated Diagnosis Comments OUTSIDE LAB Routine 05/10/2021 documented in this encounter Results * OUTSIDE LAB (05/10/2021) Martinez Peacock MD LAB documented in this encounter Visit Diagnoses Not on filedocumented in this encounter Additional Health Concerns Infection Onset Date Last Indicated Resolved Time COVID-19 08/27/2021 08/28/2021 12/04/2021 9:44 AM EDT documented as of this encounter Care Teams Dowel Inspector Relationship Specialty Start Date End Date Cassius Alvarez MD PCP - General Internal Medicine 04/03/21 11/16/21 [facility], Pcp PCP - General Internal Medicine 11/17/21 03/02/22 Cassius Alvarez MD PCP - General Internal Medicine 03/03/22 07/08/22 [facility], Pcp PCP - General Internal Medicine 07/09/22 01/19/23 Cassius Alvarez MD PCP - General Internal Medicine 01/20/23 documented as of this encounter
--- OUTSIDE RECORDS SUMMARY | 2024-09-11 19:18 | XMS_ITS | Encounter Summary ---
Author Organization [facility] Address [address] [place] [address] Care Team Providers Care Meteorological Observer Name Role Phone Kiesha Hinojosa MD Primary Care Provider Unavaila Kenny Sun MD Primary Care Provider Unavailab Neli Anderson MD Primary Care Provider Debora Brian Johnston PA-C Primary Care Provider Unavail able Cassius Alvarez MD Primary Care Provider Unavail able [facility], Pcp Primary Care Provider Unavailabl Cassius Heaton MD Primary Care Provider Unavail able [facility], Pcp Primary Care Provider Unavailabl Cassius Heaton MD Primary Care Provider Unavail able Reason for Visit * Reason Comments E-prescribe Rx Request Encounter Details Date Type Department Care Team Description 06/22/2011 Refill Pediatrics - [address] [address] Kiesha Hinojosa MD E-prescribe Rx Request Social History Tobacco Use Types Packs/Day Years Used Date Smoking Tobacco: Never Alcohol Use Standard Drinks/Week Comments Not Asked 0 (1 standard drink = 0.6 oz pur e alcohol) Sex Assigned at Date Recorded Female 01/25/2022 8:35 PM E DT Job Start Date Occupation Industry Not on file Not on file Not on file documented as of this encounter Miscellaneous Notes * Telephone Encounter - Kenia Valerio - 06/22/2011 10:20 AM EST When was patients last PE/WCC? 05/14/10 When is patients next PE/WCC scheduled? Needs pe was cancelled for this year Kiesha Hinojosa MD RX REQUEST WHEN MED IS ON THE LIST: All of the medications requested were on the CURRENT MEDS list Did you check the Pharmacy information above?: YES Indicate how soon the patient needs the script: BY THE END OF THE DAY Patient would like script to be: FAXED TO PHARMACY Is the doctor here today?: YES Can the message wait until the doctor returns?: NO Has the patient been told that the prescription will not be filled until the end of the day? NO Kiesha Hinojosa MD Payor: [facility]/HMO FFS Plan: [place] $15 Product Type: HMO [id number] documented in this encounter Plan of Treatment Not on file documented as of this encounter Visit Diagnoses Not on filedocumented in this encounter Additional Health Concerns Infection Onset Date Last Indicated Resolved Time COVID-19 08/27/2021 08/28/2021 12/04/2021 9:44 AM EDT documented as of this encounter Care Teams Meteorological Observer Relationship Specialty Start Date End Date Kiesha Hinojosa MD PCP - General 05/22/1997 12/30/11 Kenny Morales MD PCP - General Internal Medicine 12/31/11 03/17/18 Neli Andrews MD PCP - General Internal Medicine 03/18/18 1 Brian Davis PA-C PCP - General Med/Peds 03/25/21 04/02/21 Cassius Alvarez MD PCP - General Internal Medicine 04/03/21 11/16/21 [facility], Pcp PCP - General Internal Medicine 11/17/21 03/02/22 Cassius Alvarez MD PCP - General Internal Medicine 03/03/22 07/08/22 [facility], Pcp PCP - General Internal Medicine 07/09/22 01/19/23 Cassius Alvarez MD PCP - General Internal Medicine 01/20/23 documented as of this encounter
--- OUTSIDE RECORDS SUMMARY | 2024-09-11 19:18 | XMS_ITS | Encounter Summary ---
Author Organization [facility] Address [address] [place] [address] Care Team Providers Care Power Barker Operator Name Role Phone Neli Andrews MD Primary Care Provider Debora Brian Johnston PA-C Primary Care Provider Unavail able Cassius Alvarez MD Primary Care Provider Unavail able [facility], Pcp Primary Care Provider Unavailabl Cassius Heaton MD Primary Care Provider Unavail able [facility], Pcp Primary Care Provider UnavailCassius Schmitz MD Primary Care Provider Unavail able Reason for Visit * Reason Comments E-prescribe Rx Request Encounter Details Date Type Department Care Team Description 02/03/2021 Refill General Surgery - [address] [place] [address] Danny Thomas MD [address] [place] [address] [address] [place] [address] E-prescribe Rx Request Social History Tobacco Use [...] have Coronavirus / COVID-19? No / Unsure 02/04/2021 12:16 PM EDT documented as of this encounter Plan of Treatment Not on file documented as of this encounter Visit Diagnoses Not on filedocumented in this encounter Additional Health Concerns Infection Onset Date Last Indicated Resolved Time COVID-19 08/27/2021 08/28/2021 12/04/2021 9:44 AM EDT documented as of this encounter Care Teams Power Barker Operator Relationship Specialty Start Date End Date [...]
--- OUTSIDE RECORDS SUMMARY | 2024-09-11 19:18 | XMS_ITS | Encounter Summary ---
Author Organization [facility] Address [address] [place] [address] Care Team Providers Care Finisher Fine Diamond Dies Name Role Poultry InseminatorKenny Morales MD Primary Care Provider Unavailab Neli Anderson MD Primary Care Provider Debora Brian Johnston PA-C Primary Care Provider Unavail able Cassius Alvarez MD Primary Care Provider Unavail able [facility], Pcp Primary Care Provider Unavailabl e Cassius Alvarez MD Primary Care Provider Unavail able [facility], Pcp Primary Care Provider Unavailabl e Cassius Alvarez MD Primary Care Provider Unavail able Reason for Visit * Reason Onset Date Comments Musician Instrumental Feedback 12/30/2017 obgyn - internal Encounter Details Date Type Department Care Team Description 12/30/2017 Telephone OBGYN - [place] [address] [place] [address] Kristofer Ferrari CNM Musician Instrumental Feedback (obgyn - internal) Social History Tobacco Use Types Packs/Day Years [...] encounter Miscellaneous Notes * Telephone Encounter - Ines Amaro - 12/30/2017 11:50 AM EDT Referral entered and linked., Auth# [id number] * Telephone Encounter - Gema Little - 12/30/2017 11:36 AM EDT Request for a referral to a [facility] Specialist for a patient with a [facility] PCP. If patient does NOT have a [facility] PCP they must obtain a referral from their PCP before being seen-do not submit request to Referrals department-contact patient. Bam LINDO and Shahriar LINDO should not see patients with community PCP's as they are not billed as specialists. Specialty patient is being referred to: national expansion recruiter Name of Specialist patient is seeing: Kristofer Ferrari (please use Dr. Shala Dacosta) Reason/diagnosis for visit: annual Date of appointment: 12/30/17 If retro, date referral needs to start: Kenny Morales Payor: MEDICARE-ShareThis / Plan: MEDICARE-ShareThis / Product Type: MEDICARE [id number] documented in this encounter Plan of Treatment Not on file documented as of this encounter Visit Diagnoses Not on filedocumented in this encounter Additional Health Concerns Infection Onset Date Last Indicated Resolved Time COVID-19 08/27/2021 08/28/2021 12/04/2021 9:44 AM EDT documented as of this encounter Care Teams Finisher Fine Diamond Dies Relationship Specialty Start Date End Date Kenny [...]
--- OUTSIDE RECORDS SUMMARY | 2024-09-11 19:18 | XMS_ITS | Encounter Summary ---
Author Organization [facility] Address [address] [place] [address] Care Team Providers Care Dynamo Tender Name Role Phone Kiesha Hinojosa MD Primary [...] Details Date Type Department Care Team Description 09/04/2010 Family Life Educator Report Medical Records [address] [place] [address] Álvaro Lawton MD Social History Tobacco Use Types Packs/Day [...] documented as of this encounter Care Teams Dynamo Tender Relationship Specialty Start Date End Date Kiesha Hinojosa MD PCP - General 05/22/1997 12/30/11 Kenny Morales MD PCP - General Internal Medicine 12/31/11 03/17/18 Neli Anderws MD PCP - General Internal Medicine 03/18/18 [...]
--- OUTSIDE RECORDS SUMMARY | 2024-09-11 19:18 | XMS_ITS | Encounter Summary ---
Author Organization [facility] Address [address] [place] [address] Care Team Providers Care Upper Cutter Machine Name Role Phone Cassius Alvarez MD Primary Care Provider Unavail able [facility], Pcp Primary Care Provider Cassius Guevara MD Primary Care Provider Unavail able [facility], Pcp Primary Care Provider UnavailCassius Schmitz MD Primary Care Provider Unavail able Encounter Details Date Type Department Care Team Description 05/07/2021 Pt. Non Urgent Medical Question Gastroenterology - [address] [place] [address] Anny Vogel DScPAS Social History Tobacco Use Types Packs/Day Years [...] have Coronavirus / COVID-19? No / Unsure 05/06/2021 8:43 AM EDT documented as of this encounter Plan of Treatment Not on file documented as of this encounter Visit Diagnoses Not on filedocumented in this encounter Additional Health Concerns Infection Onset Date Last Indicated Resolved Time COVID-19 08/27/2021 08/28/2021 12/04/2021 9:44 AM EDT documented as of this encounter Care Teams Upper Cutter Machine Relationship Specialty Start Date End Date Cassius [...]
--- OUTSIDE RECORDS SUMMARY | 2024-09-11 19:18 | XMS_ITS | Encounter Summary ---
Author Organization [facility] Address [address] [place] [address] Care Team Providers Care Covering And Lining Supervisor Name Role Phone Cassius Alvarez MD Primary Care Provider Unavail able [facility], Pcp Primary Care Provider Cassius Guevara MD Primary Care Provider Unavail able [facility], Pcp Primary Care Provider UnavailCassius Schmitz MD Primary Care Provider Unavail able Encounter Details Date Type Department Care Team Description 05/13/2021 Hospital Medical Records [address] [place] [address] Gema Izaguirre Social History Tobacco Use Types Packs/Day Years [...] documented as of this encounter Care Teams Covering And Lining Supervisor Relationship Specialty Start Date End Date Csasius Alvarez MD PCP - General Internal Medicine 04/03/21 11/16/21 [facility], Pcp PCP - General Internal Medicine 11/17/21 03/02/22 Cassius Alvarez MD PCP - General Internal Medicine 03/03/22 07/08/22 [facility], Pcp PCP - General Internal Medicine 07/09/22 01/19/23 Cassius Alvarez MD PCP - General Internal Medicine 01/20/23 documented as of this encounter
--- OUTSIDE RECORDS SUMMARY | 2024-09-11 19:18 | XMS_ITS | Encounter Summary ---
Author Organization [facility] Address [address] [place] [address] Care Team Providers Care Weight And Test Bar Clerk Name Role Phone Cassius Alvarez MD Primary Care Provider Unavail able [facility], Pcp Primary Care Provider Cassius Guevara MD Primary Care Provider Unavail able [facility], Pcp Primary Care Provider UnavailCassius Schmitz MD Primary Care Provider Unavail able Encounter Details Date Type Department Care Team Description 05/12/2021 Hospital Medical Records [address] [place] [address] Martinez Peacock MD [address] [place] [address] [place] [address] Social History Tobacco Use Types Packs/Day Years [...] documented as of this encounter Care Teams Weight And Test Bar Clerk Relationship Specialty Start Date End Date [...]
--- OUTSIDE RECORDS SUMMARY | 2024-09-11 19:18 | XMS_ITS | Encounter Summary ---
Author Organization [facility] Address [address] [place] [address] Care Team Providers Care Independent Distributor Name Role Phone Kiesha Hinojosa MD Primary Care Provider Unavaila Kenny Sun MD Primary Care Provider Unavailab Neli Anderson MD Primary Care Provider Debora Brian Johnston PA-C Primary Care Provider Unavail able Cassius Alvarez MD Primary Care Provider Unavail able [facility], Pcp Primary Care Provider UnavailCassius Schmitz MD Primary Care Provider Unavail able [facility], Pcp Primary Care Provider UnavailCassius Schmitz MD Primary Care Provider Unavail able Encounter Details Date Type Department Care Team Description 03/26/2011 Pt. Non Urgent Medic al Question Pediatrics [address] [address] Kiesha Hinojosa MD Social History Tobacco Use Types Packs/Day Years Used Date Smoking Tobacco: Never Alcohol Use Standard Drinks/Week Comments Not Asked 0 (1 standard drink = 0.6 oz pur e alcohol) Sex Assigned at Date Recorded Female 01/25/2022 8:35 PM E DT Job Start Date Occupation Industry Not on file Not on file Not on file documented as of this encounter Progress Notes * Winter Hadley L.P.N. - 03/26/2011 3:32 PM EDTFrom: JIA ARENAS To: Kiesha Hinojosa Md Sent: [facility] Mar 26, 2011 9:28 AM Subject: Questions Hi Dr. Hinojosa, It's Nati (Mom), I have several concerns regarding Jia. She had been seen by neurology earlier this year with negative MRI and EEG. She is continuing to have what she calls a black out most recently yesterday. I am at a loss as to where or what we should do next. She has missed several days of work (yesterday included). Yesterday she called me crying because she fell and doesn't remember how or what happened prior. She was alone at the time. Previous episodes she was with friends and we were told that she at timeswill be awake but not hear what people are saying. She complains to me that when this happens that she cant comprehend what is happening. She has fallen 2 other times with no injury. We are not sure if she actually passes out and she is really freaking out about this. She has had a low grade temp 99.8 - 100.2 the past couple of days. She has been on ibuprofen faithfully for the chest and back pain also. She has a low grade temp again this morning and will be calling out of work (which will require a MD note). I don't know what to do from here. Does she need further neurology work up? a full sleep study was mentioned at one point. Or is it something that she may need to f/u with cardiology for a monitor? Being the nervous person that she is she is also asking for a referral to Behavior health to maybe talk with someone, this was her request, surprised me. Thank you Nati [phone] documented in this encounter Plan of Treatment Not on file documented as of this encounter Visit Diagnoses Not on filedocumented in this encounter Additional Health Concerns Infection Onset Date Last Indicated Resolved Time COVID-19 08/27/2021 08/28/2021 12/04/2021 9:44 AM EDT documented as of this encounter Care Teams Independent Distributor Relationship Specialty Start Date End Date Kiesha [...]
--- OUTSIDE RECORDS SUMMARY | 2024-09-11 19:18 | XMS_ITS | Encounter Summary ---
Author Organization [facility] Address [address] [place] [address] Care Team Providers Care Lab Instructor Name Role Phone Cassius Alvarez MD Primary Care Provider Unavail able Encounter Details Date Type Department Care Team Description 05/05/2024 Pt. Non Urgent Medical Question Bariatric Surgery - [place] [address] [facility] [address] [place] [address] Shanti Rivero PA-C [address] [facility] [address] [place] [address] Social History Tobacco Use Types [...] on filedocumented in this encounter Care Teams Lab Instructor Relationship Specialty Start Date End Date Cassius Alvarez MD PCP - General Internal Medicine 01/20/23 documented as of this encounter
--- OUTSIDE RECORDS SUMMARY | 2024-09-11 19:18 | XMS_ITS | Encounter Summary ---
Author Organization [facility] Address [address] [place] [address] Care Team Providers Care Political Researcher Name Role Phone Neli Andrews MD Primary Care Provider Debora Brian Johnston PA-C Primary Care Provider Unavail able Cassius Alvarez MD Primary Care Provider Unavail able Replaced By [facility], Pcp Primary Care Provider UnavailCassius Schmitz MD Primary Care Provider Unavail able Replaced By [facility], [facility] Primary Care Provider UnavailCassius Schmitz MD Primary Care Provider Unavail able Encounter Details Date Type Department Care Team Description 09/11/2018 Pt. Non Urgent Medic al Question Physiatry - [address] [address] Blanco Sanders DO Social History Tobacco Use [...] Progress Notes * Henna Gibbons L.P.N. - 09/12/2018 10:09 AM ESTFrom: Jia Valdez To: Blanco aSnders DO Sent: 09/11/2018 5:28 PM EST Subject: Back pain Hi Dr Sanders. My back is getting really bad again. I'm not sure why. But it was so bad yesterday that I was nauseous. I was wondering if you could send me a script for the pain medication please. Andcould I possibly schedule more injections please? They help for a while after you do them. Thanks. -Jia Valdez documented in this encounter Plan of Treatment Not on file documented as of this encounter Visit Diagnoses Not on filedocumented in this encounter Additional Health Concerns Infection Onset Date Last Indicated Resolved Time COVID-19 08/27/2021 08/28/2021 12/04/2021 9:44 AM EDT documented as of this encounter Care Teams Political Researcher Relationship Specialty Start Date End Date Neli [...]
--- OUTSIDE RECORDS SUMMARY | 2024-09-11 19:18 | XMS_ITS | Encounter Summary ---
Author Organization [facility] Address [address] [place] [address] Care Team Providers Care Rotary Machine Operator Name Role Phone Neli Andrews MD Primary Care Provider Debora Brian Johnston PA-C Primary Care Provider Unavail able Cassius Alvarez MD Primary Care Provider Unavail able [facility], Pcp Primary Care Provider UnavailCassius Schmitz MD Primary Care Provider Unavail able [facility], Pcp Primary Care Provider UnavailCassius Schmitz MD Primary Care Provider Unavail able Encounter Details Date Type Department Care Team Description 10/17/2018 Cert Pharmacy Tech Report Medical Records [address] [place] [id number] Stephanie Mason NP Social History Tobacco Use Types Packs/Day Years [...] documented as of this encounter Care Teams Rotary Machine Operator Relationship Specialty Start Date End [...]
--- OUTSIDE RECORDS SUMMARY | 2024-09-11 19:18 | XMS_ITS | Encounter Summary ---
Author Organization [facility] Address [address] [place] [address] Care Team Providers Care Medical Records Analyst Name Role Phone Neli Andrews MD Primary Care Provider Debora Brian Johnston PA-C Primary Care Provider Unavail able Cassius Alvarez MD Primary Care Provider Unavail able [facility], Pcp Primary Care Provider UnavailCassius Schmitz MD Primary Care Provider Unavail able [facility], Pcp Primary Care Provider Cassius Guevara MD Primary Care Provider Unavail able Encounter Details Date Type Department Care Team Description 10/18/2018 [facility] Medical Records [address] [place] [address] Social History Tobacco Use Types Packs/Day Years [...] as of this encounter Care Teams Medical Records Analyst Relationship Specialty Start Date End Date Neli [...]
--- OUTSIDE RECORDS SUMMARY | 2024-09-11 19:18 | XMS_ITS | Encounter Summary ---
Author Organization [facility] Address [address] [place] [address] Care Team Providers Care Decorating Equipment Setter Name Role Phone Cassius Alvarez MD Primary Care Provider Unavail able [facility], Pcp Primary Care Provider Cassius Guevara MD Primary Care Provider Unavail able [facility], Pcp Primary Care Provider Unavailabl Cassius Heaton MD Primary Care Provider Unavail able Reason for Visit * Reason Onset Date Comments Provider Call Back 05/12/2021 Encounter Details Date Type Department Care Team Description 05/12/2021 Telephone Gastroenterology - [address] [place] [phone] Anny Vogel DScPAS Provider Call Back Social History Tobacco Use Types Packs/Day Years [...] encounter Miscellaneous Notes * Telephone Encounter - Anny Vogel PA-C - 05/14/2021 8:56 AM EDT I did rx tablet form of sucrafate. TY * Telephone Encounter - Geronimo Lopez - 05/14/2021 8:54 AM EDT I sent msg through [employer] for patient. She did go to [facility]. * Telephone Encounter - Anny Vogel PA-C - 05/13/2021 11:59 AM EDT I can prescribe that in the tablet form and see if they will cover it. TY * Telephone Encounter - Parul Walker - 05/13/2021 10:11 AM EDT Patient calling back again, patient had to go to [facility] this morning, feeling that uncomfortable,they prescribed sulcrafate, was to expensive to excelsior picker at pharmacy, please advise * Telephone Encounter - Marisol Kessler - 05/12/2021 3:45 PM EDT Patient had a EGD with Dr. Peacock today and she reports that she ate mashed potatoes and chocolatepudding and she threw up all over her rug. Patient states that it feels like there is kymberly going through her rib on the left side that goes to her back. Patient states it feels like she is getting impaled. Patient is extremely nauseous she took a zofran and she ended up vomiting. Please call [phone] documented in this encounter Plan of Treatment Not on file documented as of this encounter Visit Diagnoses Not on filedocumented in this encounter Additional Health Concerns Infection Onset Date Last Indicated Resolved Time COVID-19 08/27/2021 08/28/2021 12/04/2021 9:44 AM EDT documented as of this encounter Care Teams Decorating Equipment Setter Relationship Specialty Start Date End Date [...]
--- OUTSIDE RECORDS SUMMARY | 2024-09-11 19:18 | XMS_ITS | Encounter Summary ---
Author Organization [facility] Address [address] [place] [address] Care Team Providers Care Jewelry Department Supervisor Name Role Phone Cassius Alvarez MD Primary Care Provider Unavail able Encounter Details Date Type Department Care Team Description 04/07/2024 Refill Bariatric Surgery - [place] [address] [facility] [address] [place] [address] Shanti Rivero PA-C [address] [facility] [address] [place] [address] Social History Tobacco Use Types [...] on filedocumented in this encounter Care Teams Jewelry Department Supervisor Relationship Specialty Start Date End Date Cassius Alvarez MD PCP - General Internal Medicine 01/20/23 documented as of this encounter
--- OUTSIDE RECORDS SUMMARY | 2024-09-11 19:18 | XMS_ITS | Encounter Summary ---
Author Organization [facility] Address [address] [place] [address] Care Team Providers Care Dipper And Baker Name Role Bead PreparerKenny Morales MD Primary Care Provider Unavailab Neli [...] Details Date Type Department Care Team Description 01/03/2018 Business Doc Medical Records [address] [place] [id number] Abstract, Provider Social History Tobacco Use Types [...] documented as of this encounter Care Teams Dipper And Baker Relationship Specialty Start Date End Date Kenny [...]
--- OUTSIDE RECORDS SUMMARY | 2024-09-11 19:18 | XMS_ITS | Encounter Summary ---
Author Organization [facility] Address [address] [place] [address] Care Team Providers Care Gun Fitter Name Role Phone Neli Andrews MD Primary [...] Details Date Type Department Care Team Description 01/01/2021 Pt. Non Urgent Medical Question General Surgery - [place] [address] [facility] [address] [place] [phone] Dayana Frost MD [address] [facility] Jignesh [address] [place] [phone] Social History Tobacco Use Types Packs/Day [...] have Coronavirus / COVID-19? No / Unsure 12/24/2020 1:18 PM EDT documented as of this encounter Miscellaneous Notes * Telephone Encounter - Winter Sandra M.A. - 01/03/2021 8:[address] Frost, do you an appt scheduled with Jia to discuss the abdominal pain? Also, do you want to call her about the remicade infusions (per her email to you)? documented in this encounter Plan of Treatment Not on file documented as of this encounter Visit Diagnoses Not on filedocumented in this encounter Additional Health Concerns Infection Onset Date Last Indicated Resolved Time COVID-19 08/27/2021 08/28/2021 12/04/2021 9:44 AM EDT documented as of this encounter Care Teams Gun Fitter Relationship Specialty Start Date End Date Neli [...]
--- OUTSIDE RECORDS SUMMARY | 2024-09-11 19:18 | XMS_ITS | Encounter Summary ---
Author Organization [facility] Address [address] [place] [address] Care Team Providers Care Smoking Pipe Coater Name Role Phone Cassius Alvarez MD Primary Care Provider Unavail able [facility], Pcp Primary Care Provider Cassius Guevara MD Primary Care Provider Unavail able [facility], Pcp Primary Care Provider UnavailCassius Schmitz MD Primary Care Provider Unavail able Encounter Details Date Type Department Care Team Description 04/09/2021 Medical Imaging Specialist Report Medical Records [address] [place] [address] Blanco Sanders DO Social History Tobacco Use [...] have Coronavirus / COVID-19? No / Unsure 04/07/2021 10:53 AM EDT documented as of this encounter Plan of Treatment Not on file documented as of this encounter Visit Diagnoses Not on filedocumented in this encounter Additional Health Concerns Infection Onset Date Last Indicated Resolved Time COVID-19 08/27/2021 08/28/2021 12/04/2021 9:44 AM EDT documented as of this encounter Care Teams Smoking Pipe Coater Relationship Specialty Start Date End Date Cassius [...]
--- OUTSIDE RECORDS SUMMARY | 2024-09-11 19:18 | XMS_ITS | Encounter Summary ---
Author Organization [facility] Address [address] [place] [address] Care Team Providers Care Apprentice Cook Name Role Orange PickerKenny Morales MD Primary Care Provider Unavailab Neli Anderson MD Primary Care Provider Debora Brian Johnston PA-C Primary Care Provider Unavail able Cassius Alvarez MD Primary Care Provider Unavail able [facility], Pcp Primary Care Provider Unavailabl Cassius Heaton MD Primary Care Provider Unavail able [facility], Pcp Primary Care Provider Unavailabl e Cassius Alvarez MD Primary Care Provider Unavail able Reason for Visit * Reason Onset Date Comments Medication 01/12/2012 Encounter Details Date Type Department Care Team Description 01/12/2012 Telephone Urology [address] [place] [id number] Feliciano Carney MD Medication Social History Tobacco Use Types Packs/Day Years [...] encounter Miscellaneous Notes * Telephone Encounter - Marisol Hutchison M.A. - 01/12/2012 1:08 PM EDT Perscription called into pharmacy * Telephone Encounter - Amy Lopez - 01/12/2012 12:31 PM EDT Patients Mom called because patient was seen this morning and two scripts should have gone to the pharmacy. Mom states she called the pharmacy and they dont have it. Please call Mom back at ext [phone] at the [facility]. documented in this encounter Plan of Treatment Not on file documented as of this encounter Visit Diagnoses Not on filedocumented in this encounter Additional Health Concerns Infection Onset Date Last Indicated Resolved Time COVID-19 08/27/2021 08/28/2021 12/04/2021 9:44 AM EDT documented as of this encounter Care Teams Apprentice Cook Relationship Specialty Start Date End Date [...]
--- OUTSIDE RECORDS SUMMARY | 2024-09-11 19:18 | XMS_ITS | Encounter Summary ---
Author Organization [facility] Address [address] [place] [address] Care Team Providers Care Frame Trimmer Name Role Phone Neli Andrews MD Primary Care Provider Debora Brian Johnston PA-C Primary Care Provider Unavail able Cassius Alvarez MD Primary Care Provider Unavail able [facility], Pcp Primary Care Provider Unavailabl Cassius Heaton MD Primary Care Provider Unavail able [facility], Pcp Primary Care Provider UnavailCassius Schmitz MD Primary Care Provider Unavail able Reason for Visit * Reason Onset Date Comments Assembler Wet Wash Feedback 03/20/2021 Neurology Encounter Details Date Type Department Care Team Description 03/20/2021 [place] [facility]/Pediatrics [address] [phone] Neli Andrews MD Assembler Wet Wash Feedback (Neurology) Social History Tobacco Use Types Packs/Day Years [...] have Coronavirus / COVID-19? No / Unsure 03/11/2021 7:53 AM EDT documented as of this encounter Miscellaneous Notes * Telephone Encounter - Rosalba Fair - 03/20/2021 3:39 PM EDT Appt scheduled with Dr Flowers on 04/09/21 at 2:30pm. I am going to call the patient and inform the pt. * Telephone Encounter - Yesi Nguyen M.A. - 03/20/2021 3:21 PM EDT Patient got a letter from our referral department for her appointment with Nurology - the letter states her appointment is 04/06/2021 - This is a Wednesday are we sure this is the correct date?? I told patient I would send message to the referral department. Please contact patient with correct appointment time. documented in this encounter Plan of Treatment Not on file documented as of this encounter Visit Diagnoses Not on filedocumented in this encounter Additional Health Concerns Infection Onset Date Last Indicated Resolved Time COVID-19 08/27/2021 08/28/2021 12/04/2021 9:44 AM EDT documented as of this encounter Care Teams Frame Trimmer Relationship Specialty Start Date End Date Neli [...]
--- OUTSIDE RECORDS SUMMARY | 2024-09-11 19:18 | XMS_ITS | Encounter Summary ---
Author Organization [facility] Address [address] [place] [address] Care Team Providers Care Ground Crewman Name Role Phone Neli Andrews MD Primary Care Provider Debora Brian Johnston PA-C Primary Care Provider Unavail able Cassius Alvarez MD Primary Care Provider Unavail able [facility], Pcp Primary Care Provider Unavailabl e Cassius Alvarez MD Primary Care Provider Unavail able [facility], Pcp Primary Care Provider UnavailCassius Schmitz MD Primary Care Provider Unavail able Reason for Visit * Reason Onset Date Comments er follow up 11/01/2018 Encounter Details Date Type Department Care Team Description 11/01/2018 Telephone [facility] - [address] [id number] Kristofer Ferrari CNM er follow up Social History Tobacco Use Types Packs/Day Years [...] Telephone Encounter - Hedy Rosa R.N. - 11/01/2018 10:24 AM EDT Returned pt's call, reports she went to [facility] ER on Wednesday10/28/18 and [facility] ER on 10/31/18 for stomach pain . Per pt [facility] ER told her she has a right ovarian cyst. ER records from both hospitals requested. F/U appt made with Kristofer Ferrari on 11/09/18 at 9:00, pt accepts. * Telephone Encounter - Gema Little - 11/01/2018 8:36 AM EDT ER follow-up appointment booked NO If ER or UC follow up, can be booked with APC or MD. If hospital admission follow up MUST be booked with a physician Appointment time: Provider visit is scheduled with: Hospital/ center patient was treated at: [facility] Date of visit: 10/31/18 Was this only an ER/UC visit or was the patient admitted to the hospital? ER visit onlyER visit only If patient was admitted what was the date of discharge? N/A Reason/diagnosis for visit or stay: stomach pain; er says cysts Was visit or stay related to an injury? If yes, what was the date of injury (DOI)? If yes, was the injury due to Tests performed: Lab: yes X-ray: EKG: Other tests. If yes, what?; documented in this encounter Plan of Treatment Not on file documented as of this encounter Visit Diagnoses Not on filedocumented in this encounter Additional Health Concerns Infection Onset Date Last Indicated Resolved Time COVID-19 08/27/2021 08/28/2021 12/04/2021 9:44 AM EDT documented as of this encounter Care Teams Ground Crewman Relationship Specialty Start Date End Date Neli Andrews MD PCP - General Internal Medicine 03/18/18 Brian Davis PA-C PCP - General Med/Peds [...]
--- OUTSIDE RECORDS SUMMARY | 2024-09-11 19:18 | XMS_ITS | Encounter Summary ---
Author Organization [facility] Address [address] [place] [address] Care Team Providers Care Head Usher Name Role Phone Cassius Alvarez MD Primary Care Provider Unavail able Encounter Details Date Type Department Care Team Description 04/06/2024 Pt. Non Urgent Medical Question Bariatric Surgery - [place] [address] [facility] [address] [place] [address] Shanti Rivero PA-C [address] [facility] [address] [place] [address] Social History Tobacco Use Types [...] on filedocumented in this encounter Care Teams Head Usher Relationship Specialty Start Date End Date Cassius Alvarez MD PCP - General Internal Medicine 01/20/23 documented as of this encounter
--- OUTSIDE RECORDS SUMMARY | 2024-09-11 19:18 | XMS_ITS | Encounter Summary ---
Author Organization [facility] Address [address] [place] [address] Care Team Providers Care Vaccinator Name Role Cake Press OperatorKenny Morales MD Primary Care Provider Unavailab Neli Anderson MD Primary Care Provider Debora Brian Johnston PA-C Primary Care Provider Unavail able Cassius Alvarez MD Primary Care Provider Unavail able [facility], Pcp Primary Care Provider Unavailabl Cassius Heaton MD Primary Care Provider Unavail able [facility], [facility] Primary Care Provider UnavailCassius Schmitz MD Primary Care Provider Unavail able Encounter Details Date Type Department Care Team Description 12/15/2017 Pt. Non Urgent Medical Question Physiatry - [address] [address] Blanco Sanders DO Chronic bilateral low back pain without sciatica (Primary Dx); Sacroiliac pain Social History [...] Progress Notes * Nadine Wood M.A. - 12/16/2017 12:47 PM EDTFrom: Jia Valdez To: Blanco Sanders DO Sent: 12/15/2017 2:09 PM EDT Subject: Injections Hello dr Sanders, I just saw dr sarabia and I told her that I think the injections are starting to wear off. Can we please schedule another set? Thank you -Jia documented in this encounter Plan of Treatment Scheduled Orders Name Type Priority Associated Diagnoses Orde r Schedule PHYSIATRY PROCEDURE PHYSIATRY Routine Chronic bilateral low back pain without sciatica Sacroiliac pain Ordered: 12/17/2017 documented as of this encounter Visit Diagnoses Diagnosis Chronic bilateral low back pain without sciatica- Primary Sacroiliac pain Disorders of sacrum documented in this encounter Additional Health Concerns Infection Onset Date Last Indicated Resolved Time COVID-19 08/27/2021 08/28/2021 12/04/2021 9:44 AM EDT documented as of this encounter Care Teams Vaccinator Relationship Specialty Start Date End Date Kenny Morales MD PCP - General Internal Medicine 12/31/11 03/17/18 Neli Sarabia MD PCP - General Internal Medicine 03/18/18 1 Brian Davis PA-C PCP - General Med/Peds 03/25/21 04/02/21 Cassius Alvarez MD PCP - General Internal Medicine 04/03/21 11/16/21 [facility], Pcp PCP - General Internal Medicine 11/17/21 03/02/22 Cassius Alvarez MD PCP - General Internal Medicine 03/03/22 07/08/22 [facility], Pcp PCP - General Internal Medicine 07/09/22 01/19/23 Cassius Alvarez MD PCP - General Internal Medicine 01/20/23 documented as of this encounter
--- OUTSIDE RECORDS SUMMARY | 2024-09-11 19:18 | XMS_ITS | Encounter Summary ---
Author Organization [facility] Address [address] [place] [address] Care Team Providers Care Telehealth Case Manager Name Role Phone Cassius Alvarez MD Primary Care Provider Unavail able [facility], Pcp Primary Care Provider Cassius Guevara MD Primary Care Provider Unavail able [facility], Pcp Primary Care Provider UnavailCassius Schmitz MD Primary Care Provider Unavail able Encounter Details Date Type Department Care Team Description 05/27/2021 Pt. Non Urgent Medical Question Gastroenterology - [address] [place] [address] Anny Vogel DScPAS Social History [...] documented as of this encounter Care Teams Telehealth Case Manager Relationship Specialty Start Date End Date [...]
--- OUTSIDE RECORDS SUMMARY | 2024-09-11 19:18 | XMS_ITS | Encounter Summary ---
Author Organization [facility] Address [address] [place] [address] Care Team Providers Care Veterinary Nurse Name Role Phone Cassius Alvarez MD Primary Care Provider Unavail able [facility], Pcp Primary Care Provider UnavailCassius Schmitz MD Primary Care Provider Unavail able [facility], Pcp Primary Care Provider UnavailCassius Schmitz MD Primary Care Provider Unavail able Reason for Visit * Reason Onset Date Comments Medication 05/26/2021 Encounter Details Date Type Department Care Team Description 05/26/2021 Refill Gastroenterology - [address] [place] [phone] Marylu Cisneros MD Medication Social History Tobacco Use Types [...] documented as of this encounter Care Teams Veterinary Nurse Relationship Specialty Start Date End Date Cassius [...]
--- OUTSIDE RECORDS SUMMARY | 2024-09-11 19:18 | XMS_ITS | Encounter Summary ---
Author Organization [facility] Address [address] [place] [address] Care Team Providers Care Galvanizer Zinc Name Role Phone Neli Andrews MD Primary Care Provider Debora Brian Johnston PA-C Primary Care Provider Unavail able Cassius Alvarez MD Primary Care Provider Unavail able [facility], Pcp Primary Care Provider UnavailCassius Schmitz MD Primary Care Provider Unavail able [facility], Pcp Primary Care Provider Cassius Guevara MD Primary Care Provider Unavail able Encounter Details Date Type Department Care Team Description 10/24/2018 [facility] Medical Records [address] [place] [address] Social History Tobacco Use Types Packs/Day Years [...] documented as of this encounter Care Teams Galvanizer Zinc Relationship Specialty Start Date End Date Neli [...]
--- OUTSIDE RECORDS SUMMARY | 2024-09-11 19:18 | XMS_ITS | Encounter Summary ---
Author Organization [facility] [place] [address] Care Team Providers Care Enrichment Director Name Role Phone Cassius Alvarez MD Primary Care Provider [phone] Encounter Details Date Type Department Care Team (Late st Contact Info) Description 05/08/2024 8:31 AM EDT Hospital Encounter TH HISTORIC ENCOUNTERS EASTERN CONVERSION ONLY Chelsea Singh MD [address] [place] [address] Social History Tobacco Use Types Packs/Day Years [...] single, she had 1 child who is [id number] FAMILY HISTORY: Noncontributory Current Outpatient Medications: ??? [...] 11:30 AM EDT Office Visit Gastroenterology - [place] 175 [facility] 175 [facility] 200 [place] [phone] Anny Vogel PA 175 [facility] 200 [place] [address] 10/16/2024 8:30 AM EDT Office Visit Bariatric Surgery - [place] 175 [facility] [address] [place] [phone] Dayana Frost MD 175 [facility] 120 [place] [phone] 10/17/2024 8:00 AM EDT Appointment [facility] Pain Management [address] [place] [phone] Blanco Sanders DO [address] [facility] [address] [place] [address] 11/29/2024 1:30 PM EDT Office Visit Obstetrics and Gynecology - [place] [address] [place] [address] Jewels Rogers CNM [address] [place], [place] documented as of this encounter Procedures Procedure Name Priority Date/Time Associated Diagnosis Comments ..MISCELLANEOUS REFERENCE LAB TEST 05/08/2024 documented in this encounter Results * Miscellaneous reference lab test (05/08/2024) us Provider Onbase MD LAB BLOOD ORDERABLES Final Re sult documented in this encounter Visit Diagnoses Not on filedocumented in this encounter Care Teams Enrichment Director Relationship Specialty Start Date End Date Cassius Alvarez MD PCP - General Internal Medicine 04/03/21 06/06/24 documented as of this encounter
--- OUTSIDE RECORDS SUMMARY | 2024-09-11 19:18 | XMS_ITS | Encounter Summary ---
Author Organization [facility] Address [address] [place] [address] Care Team Providers Care Expansion Joint Builder Name Role Phone Cassius Alvarez MD Primary Care Provider Unavail able [facility], Pcp Primary Care Provider Cassius Guevara MD Primary Care Provider Unavail able [facility], Pcp Primary Care Provider Unavailabl Cassius Heaton MD Primary Care Provider Unavail able Encounter Details Date Type Department Care Team Description 05/05/2021 Power Plant Technician Report Medical Records [address] [place] [address] Zane Flowers MD Social History Tobacco Use Types Packs/Day [...] documented as of this encounter Care Teams Expansion Joint Builder Relationship Specialty Start Date End Date Cassius [...]
--- OUTSIDE RECORDS SUMMARY | 2024-09-11 19:18 | XMS_ITS | Encounter Summary ---
Author Organization [facility] Address [address] [place] [address] Care Team Providers Care Rn Integrity Name Role Phone Kiesha Hinojosa MD Primary Care Provider Unavaila Kenny Sun MD Primary Care Provider Unavailab Neli Anderson MD Primary Care Provider Debora Brian Johnston PA-C Primary Care Provider Unavail able Cassius Alvarez MD Primary Care Provider Unavail able [facility], Pcp Primary Care Provider UnavailCassius Schmitz MD Primary Care Provider Unavail able Community, Pcp Primary Care Provider UnavailCassius Schmitz MD Primary Care Provider Unavail able Encounter Details Date Type Department Care Team Description 08/29/2010 [facility] Pro[facility] Medical Records [address] [place] [id number] Abstract, Provider Social History Tobacco Use Types [...] documented as of this encounter Care Teams Rn Integrity Relationship Specialty Start Date End Date Kiesha [...]
[2024-09-11] MEDS: Acetaminophen 325 MG TABLET 650 MG PO (21:55)
[2024-09-11] MEDS: Ondansetron ODT 4 MG TAB.RAPDIS TRANSLINGU (21:55)
[2024-09-11 23:39] VITALS: BP 105/77; PULSE 85; RESP 20; TEMP 36.2; O2SAT 97
[2024-09-12 02:44] VITALS: BP 116/69; PULSE 90; RESP 16; TEMP 36.4; O2SAT 96
[2024-09-12] MEDS: traMADoL HCL 50 MG TABLET PO (04:05)
[2024-09-12] MEDS: Sulfamethox/Trimeth 800/160 TABLET 1 TAB PO (04:07)
[2024-09-12 06:40] VITALS: BP 124/69; PULSE 89; RESP 16; TEMP 36.7; O2SAT 97
== END 2024-09-12 06:41 | disposition home or self-care (01) ==
PROVIDERS: Physician Assistant Medical; Emergency Provider Emergency Medicine; PCP Internal Medicine
DX: N39.0 Urinary tract infection, site not specified (principal); S50.01XA Contusion of right elbow, initial encounter; Z87.442 Personal history of urinary calculi; W00.0XXA Fall on same level due to ice and snow, initial encounter; Y93.9 Activity, unspecified; Y92.9 Unspecified place or not applicable; Y99.9 Unspecified external cause status; Z03.818 Encounter for observation for suspected exposure to other biological agents ruled out
CPT/HCPCS: 0241U; 73080; 74176; 80053; 81001; 83735; 84702; 85025; 99284

== ENCOUNTER → 2024-09-11 12:04 | Outpatient (BNV) | payer OTHER, SELFPAY | PROVIDERS: PCP Internal Medicine; Visit Provider Radiology Diagnostic Radiology | DX: S59.901A Unspecified injury of right elbow, initial encounter (principal) | CPT/HCPCS: 73080 ==

== ENCOUNTER → 2024-09-12 03:33 | Outpatient (BNV) | payer OTHER, SELFPAY | PROVIDERS: Emergency Provider Emergency Medicine; PCP Internal Medicine; Visit Provider General Practice | DX: R10.9 Unspecified abdominal pain (principal) | CPT/HCPCS: 74176 ==

== ENCOUNTER 2024-09-19 08:38 | Outpatient (AMB) | payer OTHER, SELFPAY ==
--- NOTE | 2024-09-19 08:40 | A.OFFVIS_ITS ---
Vital Signs 09/19/24 08:44 Height 5 ft 3 in Weight 201 lb 15.095 oz BMI 35.8 BP 120/76 Blood Pressure Location Rt brachial Position Sitting Pulse 69 Pulse Source Pulse Oximeter Pulse Oximetry (%) 98 Oxygen Delivery Method Room Air Intake Visit Reasons: follow up Intake Note: Patient presents for follow up on . Allergies infliximab [From Remicade] Adverse Reaction (Verified 09/19/24 08:40) Headache HPI HPI follow up: Details: Completed 3 months of PT. She had temporary relief with TENs for hours. She has had improvement as she no longer has nocturnal pain. Morning stiffness is 30 minutes. She uses methocarbamol 500 mg q.h.s.. Twice a week she wishes she can double the dose of methocarbamol at bedtime due to uncontrolled pain but she has not tried it. Last cortisone injections bilateral SI joints and lumbar facet joints from [facility] lasted until end of Aug. She has been receiving lumbar facet joint injections for a year to a year and a half with temporary benefit lasting 1 to 1-1/2 months. Denies joint swelling. She has been experiencing right elbow pain with activity. She went to ER recently had an x-ray done and has been referred to [facility] Medical History Kidney stones Ankylosing spondylitis Depression Anxiety Asthma Surgical History H/O gastric sleeve Family History Other Ankylosing spondylitis Social History Alcohol intake: current Alcohol intake frequency: holidays/special occasions only Alcohol type: wine Patient Tobacco Use Status: Never used Tobacco Review of Systems Const All systems reviewed & are unremarkable except as noted in HPI and below Physical Exam Vital Signs: Last Vital Signs Pulse 69 09/19/24 08:44 BP 120/76 09/19/24 08:44 Pulse Ox 98 09/19/24 08:44 Oxygen Delivery Method Room Air 09/19/24 08:44 BMI result Body Mass Index 35.8 Const Other: General: Comfortable CVS: RRR Respiratory: clear to auscultation bilaterally. Good respiratory effort Skin: No lesions seen MSK: Tender right lateral epicondyle with pain with resisted wrist extension. No medial epicondyle tenderness. Good range of motion of upper extremity and lower extremity. Tender upper thoracic and whole lumbar spinous process. No paraspinal muscle tenderness. Tender bilateral SI joints. Negative KAITLIN. Good range of motion of cervical spine. Good lumbar flexion. Assessment & Plan Assessment & Plan (1) Ankylosing spondylitis: Comment: Improved with regimen of physical therapy, muscle relaxer, chiropractor, SI joint and lumbar facet joint injections but she continues to have lower thoracic and upper lumbar spinous process tenderness and SI joint tenderness, with temporary response to intra-articular cortisone injections given to her by pain management. 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 She has had elevated inflammatory markers on labs from June 2024. We discussed changing DMARD therapy to Humira. Discussed side effects, benefits and drug monitoring. From reviewing arthritis treatment Center records, MRI from 2015 of lumbar spine did not reveal spinal pathology. Rheumatology history: HLA B27 positive and elevated inflammatory markers. MRI L-spine in 2012 revealed right sacroiliitis. She has been receiving bilateral SI joint cortisone injections since 06/30/2012, once in 2012, end of 2013 then every 3 months from pain management. In 2013 she started receiving lumbar spine facet joint injections with temporary relief 1-2 months. Remicade January 2021 discontinued after 2nd induction dose due to intractable migraines. Failed Cimzia December 2021 to May 2023. 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 Contraindication to oral NSAIDs due to history of bariatric surgery. Code(s): M45.9 - Ankylosing spondylitis of unspecified sites in spine Category: Medical Qualifiers: Ankylosing spondylitis location: sacral region Qualified Code(s): M45.8 - Ankylosing spondylitis sacral and sacrococcygeal region Plan: GUICHO Dixon Continue Taltz 80 mg every 4 weeks subcutaneous injection. Once Humira is approved, patient will be scheduled for nurse teaching visit on or after when next Taltz subcutaneous injection is due. She will then need labs 4 weeks after starting Humira: CBC, creatinine, AST, ALT. Labs for disease and drug monitoring on high-risk medication ordered X-ray of T-spine, L-spine and SI joints ordered to evaluate for progression/new findings of axial inflammatory arthritis. If x-rays do not reveal arthritic changes in areas where she is currently localizing spinal pain, I will further evaluate with MRI T-spine and L-spine without contrast. Continue methocarbamol 500 mg q.h.s. Avoid oral NSAIDs in setting of bariatric surgery She will be seeing pain management next month for SI joint and lumbar facet j oint cortisone injections She will continue to see chiropractor for adjustments, which provide her temporary benefits twice a week Return to clinic in 3 months (2) Right lateral epicondylitis: Comment: One-month history. Discussed conservative management. Her x-ray findings reveals calcification along medial side of elbow unrelated to her current symptoms but may be related to ankylosing spondylitis. Code(s): M77.11 - Lateral epicondylitis, right elbow Category: Medical Plan: Start PT Elbow support been prescribed She will ice elbow and use diclofenac gel applied to affected area twice a day Avoid oral NSAIDs in setting of gastric surgery in the past Return to clinic in 3 months Orders: Orders Erythrocyte Sedimentation Rate Today Z79.899 - Other fountain attendant (current) drug therapy C Reactive Protein Today Z79.899 - Other fountain attendant (current) drug therapy XR lumbar spine 2-3V Today M45.8 - Ankylosing spondylitis sacral and sacrococcygeal region XR sacroiliac joint min 3V Today M45.8 - Ankylosing spondylitis sacral and sacrococcygeal region PT Evaluation and Treatment Today M77.11 - Lateral epicondylitis, right elbow XR thoracic spine 2V Today M45.8 - Ankylosing spondylitis sacral and sacrococcygeal region Medications: New arm brace As directed right Elbow support band Dx: lateral epicondylitis 1 ea 0RF Changed From ixekizumab (Taltz Autoinjector) subcut To ixekizumab (Taltz Autoinjector) 80 mg subcut Q4W 1 mL 2RF Coding Level of Care Code Est Pt Level 5 (17819) Complex EM visit Add On G2211 Diagnoses Ankylosing spondylitis of sacral region M45.8 Ankylosing spondylitis location: sacral region Right lateral epicondylitis M77.11 Time Spent (min) 40
[2024-09-19 08:44] VITALS: BP 120/76; PULSE 69; O2SAT 98; BMI 35.8
--- OUTSIDE RECORDS SUMMARY | 2024-09-19 09:20 | XMS_ITS | Encounter Summary ---
Author Organization [facility] Address [address] [place] [address] Care Team Providers Care Single Resource Boss Name Role Phone Neli Andrews MD Primary Care Provider Debora Brian Johnston PA-C Primary Care Provider Unavail able Cassius Alvarez MD Primary Care Provider Unavail able [facility], Pcp Primary Care Provider UnavailCassius Schmitz MD Primary Care Provider Unavail able [facility], Pcp Primary Care Provider UnavailCassius Schmitz MD Primary Care Provider Unavail able Encounter Details Date Type Department Care Team Description 11/21/2018 Hospital Medical Records [address] [place] [address] Dayana Frost MD [address] [place] [phone] Social History Tobacco Use Types Packs/Day [...] documented as of this encounter Care Teams Single Resource Boss Relationship Specialty Start Date End Date Neli [...]
--- OUTSIDE RECORDS SUMMARY | 2024-09-19 09:20 | XMS_ITS | Encounter Summary ---
Author Organization [facility] Address [address] [place] [address] Care Team Providers Care Pouncer Machine Name Role Phone Neli Andrews MD Primary Care Provider Debora Brian Johnston PA-C Primary Care Provider Unavail able Cassius Alvarez MD Primary Care Provider Unavail able [facility], Pcp Primary Care Provider UnavailCassius Schmitz MD Primary Care Provider Unavail able [facility], [facility], [facility] Primary Care Provider UnavailCassius Schmitz MD Primary Care Provider Unavail able Encounter Details Date Type Department Care Team Description 01/09/2019 Pt. Non Urgent Medic al Question Physiatry - [address] [address] Blanco Flores DO Social History Tobacco Use [...] Progress Notes * Nadine Wood M.A. - 01/10/2019 7:56 AM EDTFrom: Jia Valdez To: Blanco Flores DO Sent: 01/09/2019 8:24 PM EDT Subject: injections Hi dr flores, can we please schedule more injections? I think this past times injections were more helpful than the others in the past. documented in this encounter Plan of Treatment Not on file documented as of this encounter Visit Diagnoses Not on filedocumented in this encounter Additional Health Concerns Infection Onset Date Last Indicated Resolved Time COVID-19 08/27/2021 08/28/2021 12/04/2021 9:44 AM EDT documented as of this encounter Care Teams Pouncer Machine Relationship Specialty Start Date End Date [...]
--- OUTSIDE RECORDS SUMMARY | 2024-09-19 09:20 | XMS_ITS | Encounter Summary ---
Author Organization [facility] Address [address] [place] [address] Care Team Providers Care Communications Technologist Name Role Phone Cassius Alvarez MD Primary Care Provider Unavail able [facility], Pcp Primary Care Provider Cassius Guevara MD Primary Care Provider Unavail able [facility], Pcp Primary Care Provider UnavailCassius Schmitz MD Primary Care Provider Unavail able Encounter Details Date Type Department Care Team Description 09/02/2021 Orders Only Medicine/Pediatrics - [address] [phone] Brian Davis PA-C Social History Tobacco Use Types Packs/Day [...] have Coronavirus / COVID-19? Unable to assess 09/03/2021 4:50 PM EST documented as of this encounter Plan of Treatment Not on file documented as of this encounter Visit Diagnoses Not on filedocumented in this encounter Additional Health Concerns Infection Onset Date Last Indicated Resolved Time COVID-19 08/27/2021 08/28/2021 12/04/2021 9:44 AM EDT documented as of this encounter Care Teams Communications Technologist Relationship Specialty Start Date End Date Cassius [...]
--- OUTSIDE RECORDS SUMMARY | 2024-09-19 09:20 | XMS_ITS | Encounter Summary ---
Author Organization [facility] Address [address] [place] [address] Care Team Providers Care Paperhanger Pipe Name Role Phone Neli Andrews MD Primary Care Provider Debora Brian Johnston PA-C Primary Care Provider Unavail able Cassius Alvarez MD Primary Care Provider Unavail able [facility], Pcp Primary Care Provider Unavailabl Cassius Heaton MD Primary Care Provider Unavail able [facility], Pcp Primary Care Provider UnavailCassius Schmitz MD Primary Care Provider Unavail able Reason for Visit * Reason Onset Date Comments Pre-op Needed 11/17/2018 Encounter Details Date Type Department Care Team Description 11/17/2018 [place] Medicine/Pediatrics [address] [phone] Cassius Alvarez MD Pre-op Needed Social History Tobacco Use Types Packs/Day Years [...] encounter Miscellaneous Notes * Telephone Encounter - Yajaira Baxter M.A. - 11/17/2018 8:59 AM EDT Pt has pre op booked with Dr. Alvarez @ 10:00. Surgery date is 11/21/[address] Frost for gallbladder documented in this encounter Plan of Treatment Not on file documented as of this encounter Visit Diagnoses Not on filedocumented in this encounter Additional Health Concerns Infection Onset Date Last Indicated Resolved Time COVID-19 08/27/2021 08/28/2021 12/04/2021 9:44 AM EDT documented as of this encounter Care Teams Paperhanger Pipe Relationship Specialty Start Date End Date Neli Andrews MD PCP - General Internal Medicine 03/18/18 1 Brian Davis PA-C PCP - General Med/Peds 03/25/21 04/02/21 Cassius Alvraez MD PCP - General Internal Medicine 04/03/21 11/16/21 [facility], Pcp PCP - General Internal Medicine 11/17/21 03/02/22 Cassius Alvarez MD PCP - General Internal Medicine 03/03/22 07/08/22 [facility], Pcp PCP - General Internal Medicine 07/09/22 01/19/23 Cassius Alvarez MD PCP - General Internal Medicine 01/20/23 documented as of this encounter
--- OUTSIDE RECORDS SUMMARY | 2024-09-19 09:20 | XMS_ITS | Encounter Summary ---
Author Organization [facility] Address [address] [place] [address] Care Team Providers Care Nuclear Medicine Physician Name Role Phone Cassius Alvarez MD Primary Care Provider Unavail able [facility], Pcp Primary Care Provider Cassius Guevara MD Primary Care Provider Unavail able [facility], [facility] Primary Care Provider UnavailCassius Schmitz MD Primary Care Provider Unavail able Encounter Details Date Type Department Care Team Description 10/31/2021 [facility] Medical Records [address] [place] [id number] [place] [address] Social History Tobacco Use Types Packs/Day Years [...] documented as of this encounter Care Teams Nuclear Medicine Physician Relationship Specialty Start Date End Date Cassius Alvarez MD PCP - General Internal Medicine 9/23/21 5/8/22 [facility], Pcp PCP - General Internal Medicine 11/17/21 03/02/22 Cassius Alvarez MD PCP - General Internal Medicine 03/03/22 07/08/22 [facility], Pcp PCP - General Internal Medicine 07/09/22 01/19/23 Cassius Alvarez MD PCP - General Internal Medicine 01/20/23 documented as of this encounter
--- OUTSIDE RECORDS SUMMARY | 2024-09-19 09:20 | XMS_ITS | Encounter Summary ---
Author Organization [facility] Address [address] [place] [address] Care Team Providers Care Commissary Agent Name Role Phone Neli Andrews MD Primary Care Provider Debora Brian Johnston PA-C Primary Care Provider Unavail able Cassius Alvarez MD Primary Care Provider Unavail able [facility], Pcp Primary Care Provider UnavailCassius Schmitz MD Primary Care Provider Unavail able [facility], Pcp Primary Care Provider UnavailCassius Schmitz MD Primary Care Provider Unavail able Encounter Details Date Type Department Care Team Description 02/07/2019 [facility] Medical Records [address] [place] [id number] Abstract, Provider Social History Tobacco Use Types [...] documented as of this encounter Care Teams Commissary Agent Relationship Specialty Start Date End Date Neli [...]
--- OUTSIDE RECORDS SUMMARY | 2024-09-19 09:21 | XMS_ITS | Encounter Summary ---
Author Organization [facility] Address [address] [place] [address] Care Team Providers Care Service Employee Name Role Manager StudyKenny Morales MD Primary Care Provider Unavailab Neli [...] 08/08/2012 Pt. Non Urgent Medical Question Medicine/Pediatrics [address] [address] Kenny Morales MD Social History Tobacco Use [...] documented as of this encounter Care Teams Service Employee Relationship Specialty Start Date End Date Kenny [...]
--- OUTSIDE RECORDS SUMMARY | 2024-09-19 09:21 | XMS_ITS | Encounter Summary ---
Author Organization [facility] Address [address] [place] [address] Care Team Providers Care Web Operations Lead Name Role Phone Neli Andrews MD Primary Care Provider Debora Brian Johnston PA-C Primary Care Provider Unavail able Cassius Alvarez MD Primary Care Provider Unavail able [facility], Pcp Primary Care Provider UnavailCassius Schmitz MD Primary Care Provider Unavail able [facility], Pcp Primary Care Provider UnavailCassius Schmitz MD Primary Care Provider Unavail able Encounter Details Date Type Department Care Team Description 09/01/2019 [facility] Medical Records [address] [place] [address] Mela Rutledge PA-C Social History Tobacco Use [...] documented as of this encounter Care Teams Web Operations Lead Relationship Specialty Start Date End Date Neli [...]
--- OUTSIDE RECORDS SUMMARY | 2024-09-19 09:21 | XMS_ITS | Encounter Summary ---
Author Organization [facility] Address [address] [place] [address] Care Team Providers Care Heavy Equipment Engine Mechanic Name Role Oil AnalystKenny Morales MD Primary Care Provider Unavailab Neli Anderson MD Primary Care Provider Debora Brian Johnston PA-C Primary Care Provider Unavail able Cassius Alvarez MD Primary Care Provider Unavail able [facility], Pcp Primary Care Provider Unavailabl Cassius Heaton MD Primary Care Provider Unavail able [facility], Pcp Primary Care Provider Unavailabl e Cassius Alvarez MD Primary Care Provider Unavail able Reason for Referral * Specialist (Routine) - Authorized/Booked Specialty Diagnoses / Procedures Referred By Contrubi t Referred To Contact SLEEP STUDY Procedures REFERRAL TO EXTERNAL HOME SLEEP STUDY Kenny Morales MD [address] [place] [phone] External Sleep Referral ID Status Reason Start Date Expiration Date V isits Requested Visits Authorized SEE REVIEW 11/08/13 Authorized/ Booked 11/07/2013 02/07/2014 1 1 Reason for Visit * Reason Onset Date Comments Testing 11/06/2013 Sleep Study Encounter Details Date Type Department Care Team Description 11/06/2013 [place] Medicine/Pediatrics [address] [phone] Kenny Morales MD Testing (Sleep [...] auth has already been obtained. Auth # [id number] Effective 11/07/13-01/05/14 To be done at Sleep [...] documented as of this encounter Care Teams Heavy Equipment Engine Mechanic Relationship Specialty Start Date End Date Kenny Morales MD PCP - General Internal Medicine 12/31/11 03/17/18 Neli Andrews MD PCP - General Internal Medicine 03/18/18 1 Brian Davis PA-C PCP - General Med/Peds 03/25/21 04/02/21 Cassius Alvarez MD PCP - General Internal Medicine 04/03/21 11/16/21 [facility], Pcp PCP - General Internal Medicine 11/17/21 03/02/22 Cassius Alvarez MD PCP - General Internal Medicine 03/03/22 07/08/22 [facility], Pcp PCP - General Internal Medicine 07/09/22 01/19/23 Cassius Alvarez MD PCP - General Internal Medicine 01/20/23 documented as of this encounter
--- OUTSIDE RECORDS SUMMARY | 2024-09-19 09:21 | XMS_ITS | Encounter Summary ---
Author Organization [facility] Address [address] [place] [address] Care Team Providers Care Xerox Machine Assembler Name Role Phone Neli Andrews MD Primary Care Provider Debora Brian Johnston PA-C Primary Care Provider Unavail able Cassius Alvarez MD Primary Care Provider Unavail able [facility], Pcp Primary Care Provider UnavailCassius Schmitz MD Primary Care Provider Unavail able [facility], Pcp Primary Care Provider UnavailCassius Schmitz MD Primary Care Provider Unavail able Encounter Details Date Type Department Care Team Description 08/28/2019 [facility] Medical Records [address] [place] [address] Mela Rutledge PA-C Social History Tobacco Use [...] documented as of this encounter Care Teams Xerox Machine Assembler Relationship Specialty Start Date End Date Neli [...]
--- OUTSIDE RECORDS SUMMARY | 2024-09-19 09:21 | XMS_ITS | Clinical Summary ---
Author Organization [facility] Address [address] [place] [address] Care Team Providers Care Medical Chief Technician Name Role Phone Cassius Alvarez MD Primary Care Provider [phone]- [phone] Allergies Active Allergy Reactions Criticality Noted Date [...] age to complete this topic Care Teams Medical Chief Technician Relationship Specialty Start Date End Date Cassius Alvarez MD [address] [place] [address] PCP - General Internal Medicine 08/16/23
--- OUTSIDE RECORDS SUMMARY | 2024-09-19 09:21 | XMS_ITS | Encounter Summary ---
Author Organization [facility] Address [address] [place] [address] Care Team Providers Care Briquette Machine Operator Helper Name Role Percussion Instrument RepairerKenny Morales MD Primary Care Provider Unavailab Neli Anderson MD Primary Care Provider Debora Brian Johnston PA-C Primary Care Provider Unavail able Cassius Alvarez MD Primary Care Provider Unavail able [facility], Pcp Primary Care Provider UnavailCassius Schmitz MD Primary Care Provider Unavail able [facility], Pcp Primary Care Provider Unavailabl Cassius Heaton MD Primary Care Provider Unavail able Encounter Details Date Type Department Care Team Description 07/04/2014 Ship Engines Operating Engineer Report Medical Records [address] [place] [address] Momo Murphy Social History Tobacco Use Types [...] documented as of this encounter Care Teams Briquette Machine Operator Helper Relationship Specialty Start Date End Date Kenny [...]
--- OUTSIDE RECORDS SUMMARY | 2024-09-19 09:21 | XMS_ITS | Encounter Summary ---
Author Organization [facility] Address [address] [place] [address] Care Team Providers Care Tinning Machine Set Up Operator Name Role Phone Cassius Alvarez MD Primary Care Provider Unavail able [facility], Pcp Primary Care Provider Cassius Guevara MD Primary Care Provider Unavail able [facility], Pcp Primary Care Provider UnavailCassius Schmitz MD Primary Care Provider Unavail able Reason for Visit * Reason Comments E-prescribe Rx Request Encounter Details Date Type Department Care Team Description 06/18/2021 Refill General Surgery - [facility] [address] [place] [phone] Dayana Frost MD [address] [address] E-prescribe Rx Request Social History [...] documented as of this encounter Care Teams Tinning Machine Set Up Operator Relationship Specialty Start Date End Date [...]
--- OUTSIDE RECORDS SUMMARY | 2024-09-19 09:21 | XMS_ITS | Encounter Summary ---
Author Organization [facility] Address [address] [place] [address] Care Team Providers Care Black Oxide Operator Name Role Phone Cassius Alvarez MD Primary Care Provider Unavail able [facility], Pcp Primary Care Provider UnavailCassius Schmitz MD Primary Care Provider Unavail able [facility], Pcp Primary Care Provider Unavailabl Cassius Heaton MD Primary Care Provider Unavail able Reason for Visit * Reason Comments E-prescribe Rx Request Encounter Details Date Type Department Care Team Description 06/20/2021 Refill OBGYN - [place] [address] Jc Barbour DO E-prescribe Rx Request Social [...] EST WHEN WAS THE PATIENTS LAST ANNUAL TOOL GRINDING TECHNICIAN EXAM? 04/14/20 Does patient have an upcoming [...] / Plan: [place] / Product Type: MEDICARE [id number] documented in this encounter Plan of Treatment Not on file documented as of this encounter Visit Diagnoses Not on filedocumented in this encounter Additional Health Concerns Infection Onset Date Last Indicated Resolved Time COVID-19 08/27/2021 08/28/2021 12/04/2021 9:44 AM EDT documented as of this encounter Care Teams Black Oxide Operator Relationship Specialty Start Date End Date Cassius Alvarez MD PCP - General Internal Medicine 04/03/21 11/16/21 [facility], Pcp PCP - General Internal Medicine 11/17/21 03/02/22 Cassius Alvarez MD PCP - General Internal Medicine 03/03/22 07/08/22 [facility], Pcp PCP - General Internal Medicine 07/09/22 01/19/23 Cassius Alvarez MD PCP - General Internal Medicine 01/20/23 documented as of this encounter
--- OUTSIDE RECORDS SUMMARY | 2024-09-19 09:21 | XMS_ITS | Encounter Summary ---
Author Organization [facility] Address [address] [place] [address] Care Team Providers Care Fishing Boat Captain Name Role Senior Architectural DesignerKenny Morales MD Primary Care Provider Unavailab Neli Anderson MD Primary Care Provider Debora Brian Johnston PA-C Primary Care Provider Unavail able Cassius Alvarez MD Primary Care Provider Unavail able [facility], Pcp Primary Care Provider UnavailCassius Schmitz MD Primary Care Provider Unavail able [facility], Pcp Primary Care Provider UnavailCassius Schmitz MD Primary Care Provider Unavail able Encounter Details Date Type Department Care Team Description 01/05/2014 Controlled Substance Contract with [facility] Medical Records [address] [place] [address] Abstract, Provider Social History Tobacco Use Types [...] documented as of this encounter Care Teams Fishing Boat Captain Relationship Specialty Start Date End Date Kenny [...]
--- OUTSIDE RECORDS SUMMARY | 2024-09-19 09:21 | XMS_ITS | Encounter Summary ---
Author Organization [facility] Address [address] [place] [address] Care Team Providers Care Dosier Operator Name Role Returned Materials InspectorKenny Morales MD Primary Care Provider Unavailab Neli [...] Description 07/13/2013 Release of Information Medical Records [address] [place] [address] Abstract, Provider Social History Tobacco Use Types [...] documented as of this encounter Care Teams Dosier Operator Relationship Specialty Start Date End Date [...]
--- OUTSIDE RECORDS SUMMARY | 2024-09-19 09:21 | XMS_ITS | Encounter Summary ---
Author Organization [facility] Address [address] [place] [address] Care Team Providers Care Student Counsellor Name Role Injection Press OperatorKenny Morales MD Primary Care Provider Unavailab Neli Anderson MD Primary Care Provider Debora Brian Johnston PA-C Primary Care Provider Unavail able Cassius Alvarez MD Primary Care Provider Unavail able [facility], Pcp Primary Care Provider Unavailabl Cassius Heaton MD Primary Care Provider Unavail able [facility], Pcp Primary Care Provider Unavailabl e Cassius Alvarez MD Primary Care Provider Unavail able Encounter Details Date Type Department Care Team Description 06/19/2014 COMMISSIONER CONSERVATION OF RESOURCES/[facility] Report Medical Records [address] [place] [address] Abstract, Provider Social History Tobacco Use Types [...] documented as of this encounter Care Teams Student Counsellor Relationship Specialty Start Date End Date Kenny Morales MD PCP - General Internal Medicine 12/31/11 03/17/18 Neli Andrews MD PCP - General Internal Medicine 03/18/18 1 Brian Davis PA-C PCP - General Med/Peds 03/25/21 04/02/21 Cassuis Alvarez MD PCP - General Internal Medicine 04/03/21 11/16/21 [facility], Pcp PCP - General Internal Medicine 11/17/21 03/02/22 Cassius Alvarez MD PCP - General Internal Medicine 03/03/22 07/08/22 [facility], Pcp PCP - General Internal Medicine 07/09/22 01/19/23 Cassius Alvarez MD PCP - General Internal Medicine 01/20/23 documented as of this encounter
--- OUTSIDE RECORDS SUMMARY | 2024-09-19 09:21 | XMS_ITS | Encounter Summary ---
Author Organization [facility] Address [address] [place] [address] Care Team Providers Care Sales Promotion Officer Name Role Apron WorkerKenny Morales MD Primary Care Provider Unavailab Neli Anderson MD Primary Care Provider Debora Brian Johnston PA-C Primary Care Provider Unavail able Cassius Alvarez MD Primary Care Provider Unavail able [facility], Pcp Primary Care Provider UnavailCassius Schmitz MD Primary Care Provider Unavail able [facility], Pcp Primary Care Provider Unavailabl Cassius Heaton MD Primary Care Provider Unavail able Encounter Details Date Type Department Care Team Description 09/11/2014 Embedded Firmware Developer Report Medical Records [address] [place] [address] Martinez Murphy Social History Tobacco Use Types [...] documented as of this encounter Care Teams Sales Promotion Officer Relationship Specialty Start Date End Date [...]
--- OUTSIDE RECORDS SUMMARY | 2024-09-19 09:21 | XMS_ITS | Encounter Summary ---
Author Organization [facility] Address [address] [place] [address] Care Team Providers Care Audio Visual Arts Director Name Role Residential Interior DesignerKenny Morales MD Primary Care Provider Unavailab [...] Care Team Description 07/10/2014 [facility] Medical Records [address] [place] [address] Abstract, Provider Social History Tobacco Use Types [...] documented as of this encounter Care Teams Audio Visual Arts Director Relationship Specialty Start Date End Date [...]
--- OUTSIDE RECORDS SUMMARY | 2024-09-19 09:21 | XMS_ITS | Encounter Summary ---
Author Organization [facility] Address [address] [place] [address] Care Team Providers Care Nutritional Services Cook Name Role Phone Cassius Alvarez MD Primary Care Provider Unavail able [facility], Pcp Primary Care Provider Cassius Guevara MD Primary Care Provider Unavail able [facility], [facility] Primary Care Provider UnavailCassius Schmitz MD Primary Care Provider Unavail able Encounter Details Date Type Department Care Team Description 06/02/2021 Orders Only Medical Records [address] [place] [address] Marylu Cisneros MD Social History Tobacco Use [...] documented as of this encounter Care Teams Nutritional Services Cook Relationship Specialty Start Date End Date Cassius Alvarez MD PCP - General Internal Medicine 04/03/21 11/16/21 [facility], Pcp PCP - General Internal Medicine 11/17/21 03/02/22 Cassius Alvarez MD PCP - General Internal Medicine 03/03/22 07/08/22 [facility], Pcp PCP - General Internal Medicine 07/09/22 01/19/23 Cassius Alvarez MD PCP - General Internal Medicine 01/20/23 documented as of this encounter
--- OUTSIDE RECORDS SUMMARY | 2024-09-19 09:21 | XMS_ITS | Encounter Summary ---
Author Organization [facility] Address [address] [place] [address] Care Team Providers Care Grounds Supervisor Name Role Reeler OperatorKenny Morales MD Primary Care Provider Unavailab Neli Anderson MD Primary Care Provider Debora Brian Johnston PA-C Primary Care Provider Unavail able Cassius Alvarez MD Primary Care Provider Unavail able [facility], Pcp Primary Care Provider UnavailCassius Schmitz MD Primary Care Provider Unavail able [facility], [facility], Pcp Primary Care Provider UnavailCassius Schmitz MD Primary Care Provider Unavail able Encounter Details Date Type Department Care Team Description 11/24/2013 Transfer Records Medical Records [address] [place] [address] Abstract, Provider Social History Tobacco Use Types [...] documented as of this encounter Care Teams Grounds Supervisor Relationship Specialty Start Date End Date [...]
--- OUTSIDE RECORDS SUMMARY | 2024-09-19 09:21 | XMS_ITS | Encounter Summary ---
Author Organization [facility] Address [address] [place] [address] Care Team Providers Care Tool Designer Apprentice Name Role Investigative AnalystKenny Morales MD Primary Care Provider Unavailab Neli Anderson MD Primary Care Provider Debora Brian Johnston PA-C Primary Care Provider Unavail able Cassius Alvarez MD Primary Care Provider Unavail able [facility], Pcp Primary Care Provider Unavailabl e Cassius Alvarez MD Primary Care Provider Unavail able [facility], Pcp Primary Care Provider Unavailabl e Cassius Alvarez MD Primary Care Provider Unavail able Reason for Referral * (Routine) - Authorized/Booked Specialty Diagnoses / Procedures Referred By Contact Referred To Contact Chiropractor / Chiropractic Procedures REFERRAL TO CHIROPRACTIC Kenny Morales MD [address] [place] [address] [place] [phone] Zeferino Tineo D.C. [address] [place] [address] Referral ID Status Reason Start Date Expiration Date V isits Requested Visits Authorized [id number] Authorized/B ooked 08/31/2012 07/11/2013 99 12 Reason for Visit * Reason Onset Date Comments other 08/31/2012 Encounter Details Date Type Department Care Team Description 08/31/2012 Pt. Non Urgent Medic al Question Medicine/Pediatrics - [address] [phone] Kenny Morales MD Social History Tobacco Use [...] of this encounter Progress Notes * Tova Thrasher L.P.N. - 08/31/2012 2:14 PM ESTFrom: JIA ARENAS To: Kenny Morales MD Sent: WedAug 31, 2012 2:11 PM Subject: MRI Jia Will I need a referal to go back to the chiropractor? And what am I to take to control the pain? The dermatran worked the best until the rashes showed up. I've been taking the Voltarin and it gets mecomfortable enough to fall asleep for the most part there was a few nights that it took me almost 2hours just to fall asleep. I dont want to take the percocet unless needed. But what should I take in the morning to control the pain? I tend to wake up and my back is really stiff. documented in this encounter Plan of Treatment Not on file documented as of this encounter Visit Diagnoses Not on filedocumented in this encounter Additional Health Concerns Infection Onset Date Last Indicated Resolved Time COVID-19 08/27/2021 08/28/2021 12/04/2021 9:44 AM EDT documented as of this encounter Care Teams Tool Designer Apprentice Relationship Specialty Start Date End Date Kenny Morales MD PCP - General Internal Medicine 12/31/11 03/17/18 Neli Andrews MD PCP - General Internal Medicine 03/18/18 1 Brian Davis PA-C PCP - General Med/Peds 03/25/21 04/02/21 Cassius Alvarez MD PCP - General Internal Medicine 04/03/21 11/16/21 [facility], Pcp PCP - General Internal Medicine 11/17/21 03/02/22 Cassius Alvarez MD PCP - General Internal Medicine 03/03/22 07/08/22 [facility], Pcp PCP - General Internal Medicine 07/09/22 01/19/23 Cassius Alvarez MD PCP - General Internal Medicine 01/20/23 documented as of this encounter
--- OUTSIDE RECORDS SUMMARY | 2024-09-19 09:21 | XMS_ITS | Encounter Summary ---
Author Organization [facility] Address [address] [place] [address] Care Team Providers Care Rough Rice Tender Name Role Phone Cassius Alvarez MD Primary Care Provider Unavail able [facility], Pcp Primary Care Provider Cassius Guevara MD Primary Care Provider Unavail able [facility] Primary Care Provider UnavailCassius Schmitz MD Primary Care Provider Unavail able Encounter Details Date Type Department Care Team Description 08/21/2021 [facility] Medical Records [address] [place] [address] Abstract, Provider Nausea and vomiting, intractability of [...] Cassius Alvarez MD MRI Performing Organization Address City/State/[facility] Co de Phone Number [facility] [address] [facility] documented in this encounter Visit Diagnoses Diagnosis Nausea and vomiting, intractability of vomiting not specified, unspecified vomiting type Nonintractable headache, unspecified chronicity pattern, unspecified headache type documented in this encounter Additional Health Concerns Infection Onset Date Last Indicated Resolved Time COVID-08/27/2021 08/28/2021 12/04/2021 9:44 AM EDT documented as of this encounter Care Teams Rough Rice Tender Relationship Specialty Start Date End Date [...]
--- OUTSIDE RECORDS SUMMARY | 2024-09-19 09:21 | XMS_ITS | Encounter Summary ---
Author Organization [facility] Address [address] [place] [address] Care Team Providers Care Guest Services Associate Name Role Fisheries Enforcement OfficerKenny Morales MD Primary Care Provider Unavailab Neli Anderson MD Primary Care Provider Debora Brian Johnston PA-C Primary Care Provider Unavail able Cassius Alvarez MD Primary Care Provider Unavail able [facility], Pcp Primary Care Provider Unavailabl Cassius Heaton MD Primary Care Provider Unavail able [facility], Pcp Primary Care Provider Unavailabl e Cassius Alvarez MD Primary Care Provider Unavail able Encounter Details Date Type Department Care Team Description 05/30/2014 Director Career Services Report Medical Records [address] [place] [address] Sanjuanita Harrison Social History Tobacco Use Types [...] as of this encounter Care Teams Guest Services Associate Relationship Specialty Start Date End Date Kenny [...]
--- OUTSIDE RECORDS SUMMARY | 2024-09-19 09:22 | XMS_ITS | Encounter Summary ---
[facility] Organization [facility] Address [address] [place] [address] Care Team Providers Care Polymerization Engineer Name Role Engineer/ConductorKenny Morales MD Primary Care Provider Unavailab Neli Anderson MD Primary Care Provider Debora Brian Johnston PA-C Primary Care Provider Unavail able Cassius Alvarez MD Primary Care Provider Unavail able [facility], Pcp Primary Care Provider Unavailabl Cassius Heaton MD Primary Care Provider Unavail able [facility], Pcp Primary Care Provider Unavailabl e Cassius Alvarez MD Primary Care Provider Unavail able Encounter Details Date Type Department Care Team Description 03/17/2013 Metal Engraver Report Medical Records [address] [place] [id number] Donald Wall PA-C Social History Tobacco Use [...] documented as of this encounter Care Teams Polymerization Engineer Relationship Specialty Start Date End Date Kenny [...] PCP - General Internal Medicine 03/03/22 07/08/22 [facility], Pcp PCP - General Internal Medicine 07/09/22 01/19/23 Cassius Alvarez MD PCP - General Internal Medicine 01/20/23 documented as of this encounter
--- OUTSIDE RECORDS SUMMARY | 2024-09-19 09:22 | XMS_ITS | Encounter Summary ---
Author Organization [facility] Address [address] [place] [address] Care Team Providers Care Fiber Design Engineer Name Role Phone Neli Andrews MD Primary Care Provider Debora Brian Johnston PA-C Primary Care Provider Unavail able Cassius Alvarez MD Primary Care Provider Unavail able [facility], Pcp Primary Care Provider UnavailCassius Schmitz MD Primary Care Provider Unavail able [facility], Pcp Primary Care Provider UnavailCassius Schmitz MD Primary Care Provider Unavail able Encounter Details Date Type Department Care Team Description 08/25/2019 Hospital Medical Records [address] [place] [address] Dayana Frost MD [address] [place] [phone] Social History Tobacco Use Types Packs/Day [...] documented as of this encounter Care Teams Fiber Design Engineer Relationship Specialty Start Date End Date [...]
--- OUTSIDE RECORDS SUMMARY | 2024-09-19 09:22 | XMS_ITS | Encounter Summary ---
Author [facility] Address [address] [place] [address] Care Team Providers Care Foundation Stage Teacher Name Role Phone Neli Andrews MD Primary Care Provider Debora Brian Johnston PA-C Primary Care Provider Unavail able Cassius Alvarez MD Primary Care Provider Unavail able [facility], Pcp Primary Care Provider UnavailCassius Schmitz MD Primary Care Provider Unavail able [facility], Pcp Primary Care Provider Cassius Guevara MD Primary Care Provider Unavail able Encounter Details Date Type Department Care Team Description 09/12/2019 [facility] Medical Records [address] [place] [id number] [place] [address] Social History Tobacco Use Types Packs/Day Years [...] documented as of this encounter Care Teams Foundation Stage Teacher Relationship Specialty Start Date End Date Neli Andrews MD PCP - General Internal Medicine 03/18/18 1 Brian Davis PA-C PCP - General Med/Peds 03/25/21 04/02/21 aCssius Alvarez MD PCP - General Internal Medicine 04/03/21 11/16/21 [facility], Pcp PCP - General Internal Medicine 11/17/21 03/02/22 Cassius Alvarez MD PCP - General Internal Medicine 03/03/22 07/08/22 [facility], Pcp PCP - General Internal Medicine 07/09/22 01/19/23 Cassius Alvarez MD PCP - General Internal Medicine 01/20/23 documented as of this encounter
--- OUTSIDE RECORDS SUMMARY | 2024-09-19 09:22 | XMS_ITS | Patient Health Record ---
Author Organization [facility] Address [address] [place] [address] REASON FOR REFERRAL No Information PLAN OF TREATMENT No Information Insurance Providers Payer Name Payer Address Payer Phone Subscriber Number Group Number Insured Name Patient Relationship to Insured Coverage Start Date Coverage End Date [employer]/Angie or Options [address] [place] [id number] DAINA ARENAS Self - patient is the insured
--- OUTSIDE RECORDS SUMMARY | 2024-09-19 09:22 | XMS_ITS | Encounter Summary ---
Author Organization [facility] Address [address] [place] [address] Care Team Providers Care Mill Oiler Name Role Phone Neli Andrews MD Primary [...] Description 09/13/2019 Orders Only Medical Records [address] [place] [address] Dayana Frost MD [address] [place] [phone] Social History Tobacco Use Types Packs/Day [...] documented as of this encounter Care Teams Mill Oiler Relationship Specialty Start Date End Date Neli [...]
--- OUTSIDE RECORDS SUMMARY | 2024-09-19 09:22 | XMS_ITS | Encounter Summary ---
Author Organization [facility] Address [address] [place] [address] Care Team Providers Care Film Sound Engineer Name Role Phone Neli Andrews MD Primary Care Provider Debora Brian Johnston PA-C Primary Care Provider Unavail able Cassius Alvarez MD Primary Care Provider Unavail able [facility], Pcp Primary Care Provider UnavailCassius Schmitz MD Primary Care Provider Unavail able [facility], Pcp Primary Care Provider UnavailCassius Schmitz MD Primary Care Provider Unavail able Encounter Details Date Type Department Care Team Description 09/18/2019 [facility] Medical Records [address] [place] [id number] Gema Izaguirre Social History Tobacco Use Types [...] as of this encounter Care Teams Film Sound Engineer Relationship Specialty Start Date End Date [...]
--- OUTSIDE RECORDS SUMMARY | 2024-09-19 09:22 | XMS_ITS | Encounter Summary ---
Author Organization [facility] Address [address] [place] [address] Care Team Providers Care Picker Feeder Name Role Phone Neli Andrews MD Primary Care Provider Debora Brian Johnston PA-C Primary Care Provider Unavail able Cassius Alvarez MD Primary Care Provider Unavail able [facility], Pcp Primary Care Provider UnavailCassius Schmitz MD Primary Care Provider Unavail able [facility], Pcp Primary Care Provider UnavailCassius Schmitz MD Primary Care Provider Unavail able Encounter Details Date Type Department Care Team Description 11/23/2019 [facility] Medical Records [address] [place] [address] Abstract, Provider Social History Tobacco Use Types [...] documented as of this encounter Care Teams Picker Feeder Relationship Specialty Start Date End Date Neli [...]
--- OUTSIDE RECORDS SUMMARY | 2024-09-19 09:22 | XMS_ITS | Encounter Summary ---
Author Organization [facility] Address [address] [place] [address] Care Team Providers Care Melter Supervisor Electric Arc Furnace Name Role Phone Neli Andrews MD Primary [...] Details Date Type Department Care Team Description 03/19/2020 [facility] Medical Records [address] [place] [address] Abstract, Provider Social History Tobacco Use Types [...] have Coronavirus / COVID-19? No / Unsure 03/21/2020 10:07 AM EDT documented as of this encounter Plan of Treatment Not on file documented as of this encounter Visit Diagnoses Not on filedocumented in this encounter Additional Health Concerns Infection Onset Date Last Indicated Resolved Time COVID-19 08/27/2021 08/28/2021 12/04/2021 9:44 AM EDT documented as of this encounter Care Teams Melter Supervisor Electric Arc Furnace Relationship Specialty Start Date End Date Neli [...]
--- OUTSIDE RECORDS SUMMARY | 2024-09-19 09:22 | XMS_ITS | Encounter Summary ---
Author Organization [facility] Address [address] [place] [address] Care Team Providers Care Thermite Bomb Loader Name Role Phone Neli Andrews MD Primary Care Provider Debora Brian Johnston PA-C Primary Care Provider Unavail able Cassius Alvarez MD Primary Care Provider Unavail able [facility], [facility]cp Primary Care Provider UnavailCassius Schmitz MD Primary Care Provider Unavail able [facility] Primary Care Provider UnavailCasisus Schmitz MD Primary Care Provider Unavail able Encounter Details Date Type Department Care Team Description 01/29/2020 Pt. Non Urgent Medic al Question Adult Medicine [address] [address] Neli Andrews MD Social History Tobacco Use [...] as of this encounter Progress Notes * Francy Funez M.A. - 01/30/2020 9:59 AM EDTFrom: Jia Valdez To: Neli Andrews MD Sent: 01/29/2020 6:41 PM EDT Subject: Abdominal pain Hello. So my mom wanted me to send you a second message because I ended up going to the ER because of the pain. They gave me a bag of fluids while I was there and the PA that I saw said that it COULDcertainly still be a kidney stone but he didn't see one on the CT Scan so that I should follow up with you abou t the abdominal pain that has continued. They gave me some tramadol (I think that's what it was called) and some zofran. -Jia documented in this encounter Plan of Treatment Not on file documented as of this encounter Visit Diagnoses Not on filedocumented in this encounter Additional Health Concerns Infection Onset Date Last Indicated Resolved Time COVID-19 08/27/2021 08/28/2021 12/04/2021 9:44 AM EDT documented as of this encounter Care Teams Thermite Bomb Loader Relationship Specialty Start Date End Date Neli [...]
--- OUTSIDE RECORDS SUMMARY | 2024-09-19 09:22 | XMS_ITS | Encounter Summary ---
Author Organization [facility] Address [address] [place] [address] Care Team Providers Care Tin Pourer Name Role Phone Neli Andrews MD Primary Care Provider Debora Brian Johnston PA-C Primary Care Provider Unavail able Cassius Alvarez MD Primary Care Provider Unavail able [facility], Pcp Primary Care Provider Unavailabl Cassius Heaton MD Primary Care Provider Unavail able [facility], Pcp Primary Care Provider UnavailCassius Schmitz MD Primary Care Provider Unavail able Encounter Details Date Type Department Care Team Description 12/25/2019 Refill General Surgery - [place] 175 [facility] [address] [place] [phone] Dayana Frost MD 175 [facility] Jignesh [address] [place] [phone] Social History Tobacco Use Types Packs/Day [...] documented as of this encounter Care Teams Tin Pourer Relationship Specialty Start Date End Date Neli [...]
--- OUTSIDE RECORDS SUMMARY | 2024-09-19 09:22 | XMS_ITS | Encounter Summary ---
Author Organization [facility] Address [address] [place] [address] Care Team Providers Care Childcare Worker Name Role Phone Neli Andrews MD Primary Care Provider Debora Brian Johnston PA-C Primary Care Provider Unavail able Cassius Alvarez MD Primary Care Provider Unavail able [facility], Pcp Primary Care Provider UnavailCassius Schmitz MD Primary Care Provider Unavail able [facility], Pcp Primary Care Provider UnavailCassius Schmitz MD Primary Care Provider Unavail able Encounter Details Date Type Department Care Team Description 04/07/2019 Orders Only Medical Records [address] [place] [address] Dayana Frost MD [address] [place] [phone] Social History Tobacco Use Types Packs/Day [...] documented as of this encounter Care Teams Childcare Worker Relationship Specialty Start Date End Date Neli Andrews MD PCP - General Internal Medicine 03/18/18 1 Brian Davis PA-C PCP - General Med/Peds 03/25/21 04/02/21 Cassius Alvarez MD PCP - General Internal Medicine 04/03/21 11/16/21 [facility], Pcp PCP - General Internal Medicine 11/17/21 03/02/22 Cassius Alvarez MD PCP - General Internal Medicine 03/03/22 07/08/22 [facility], Pcp PCP - General Internal Medicine 07/09/22 01/19/23 Cassius Alvarez MD PCP - General Internal Medicine 01/20/23 documented as of this encounter
--- OUTSIDE RECORDS SUMMARY | 2024-09-19 09:22 | XMS_ITS | Clinical Summary ---
Author Organization [facility] Address [address] [place] [address] Phone Care Team Providers Care Jira Administrator Name Role Phone Cassius Alvarez MD Primary Care Provider [phone] Allergies Active Allergy Reactions Criticality Noted Date [...] XL) 150 mg 24 hr tablet Active clonazePAM (KlonoPIN) 0.5 mg tablet Take 1 tablet (0.5 mg total) by mouth 1 (one) time each day. Active norethindrone (RISSA,AYDE,HEA THER,MICRONOR) 0.35 mg tablet Take 1 tablet (0.35 mg total) by mouth 1 (one) time each day. 84 tablet 1 Active acarbose (Precose) 25 mg tablet Take 1 tablet (25 mg total) by mouth 3 (three) times a day with meals. 90 tablet 11 025 2025 Active ondansetron ODT (ZOFRAN-ODT) 4 mg disintegrating tabletIndications :Nausea Dissolve 1 tablet (4 mg total) on top of the tongue every 8 (eight) hours if needed for nausea or vomiting. 20 tablet 2 025 Active esomeprazole (NexIUM) [address] capsule TAKE 1 CAPSULE(40 MG) BY MOUTH 1 TIME EACH DAY BEFORE BREAKFAST. DO NOT OPEN CAPSULE 90 capsule 3 025 Active esomeprazole (NexIUM) [address] capsule Take 1 capsule (40 mg total) by mouth 1 (one) time each day before breakfast. Do not open capsule. 90 each 024 2024 Discontinued ondansetron ODT (ZOFRAN-ODT) 4 mg disintegrating tablet DISSOLVE 1 TABLET BY MOUTH ON THE TOP OF THE TONGUE EVERY 8 HOURS IF NEEDED FOR NAUSEA OR VOMITING FOR UP TO 7 DAYS 20 tablet 2 025 2024 Discontinued(R eoblakeer) Active Problems Problem Noted Date Diagnosed Date [...] reading 06/17/2022 Overview (04/26/2024): 06/17/2022 seen in [facility] ED and [facility] triage for SOB, neb [...] Bladder spasms 04/22/2022 Overview (04/26/2024): Went to [facility] on 03/25- discharged stable, advised to [...] cyst 11/25/2018 Overview (04/26/2024): 11/04/18 Presented to [facility] ED for abdominal pain. CT scan showed [...] her ferritin; follow-up in a few months [facility] Polysomnogram: Date 04/05/2019; Wt [...] 03/31/2013 Overview (04/26/2024): Has been seen at [facility], rheumatology Dr. Valero as well as Dr. Murphy, Dr. Finch, now seeing Dr Brady at [facility]; also Dr Sanders 02/05/2022 under the care of [facility] in [place]. CBC, ESR, CRP, creatinine, AST and ALT ordered at that visit. Plan is to continue with Cimzia 400 mg SC monthly. OCD (obsessive compulsive disorder) 11/30/2012 Depression 10/21/2012 Overview (04/26/2024): History SI- IP Admits Nephrolithiasis 01/12/2012 Overview (04/26/2024): Noted December 2011 Last Assessment & Plan: [facility] 12/21 2 mm right ureteric stone ADHD (attention deficit hyperactivity disorder) 07/24/2011 Anxiety 07/24/2011 Asthma 07/24/2011 Migraine with aura 07/24/2011 Overview (04/26/2024): Dr Flowers Comments Yes Encounters Date Type Department Care Team Description 08/21/2024 Lab Requisition [facility] - Main Lab [address] [facility] [place] [phone] Donald Wall PA Hydronephrosis with renal and ureteral calculous obstruction 08/14/2024 8:30 AM EST Office Visit Bariatric Surgery - [place] [address] [phone] Dayana Frost MD S/P bariatric surgery (Primary Dx); Hx of hypoglycemia; Dumping syndrome; Obesity, Class II, BMI 35-39.9 08/01/2024 7:52 AM EST - 08/01/2024 11:59 PM EST Hospital Encounter [facility] Nuclear Medicine [address] [place] [phone] S/P bariatric surgery Discharge Disposition: Home or Self Care 07/26/2024 10:30 AM EST Office Visit Obstetrics and Gynecology [address] [phone] Shannon He MD Breakthrough bleeding on control pills (Primary Dx); Paratubal cyst 07/19/2024 Telephone Bariatric Surgery [address] [phone] Danny Thomas MD 07/19/2024 Telephone Bariatric Surgery - [address] [phone] Dayana Frost MD 07/17/2024 Telephone Obstetrics and Gynecology - [address] [phone] Shannon He MD Request For Order(s) 07/16/2024 Telephone Gastroenterology - [address] [phone] nAny Vogel PA 07/13/2024 8:30 AM EST Office Visit Bariatric Surgery [address] [phone] Dayana Frost MD S/P bariatric surgery (Primary Dx); Class 2 severe obesity with serious comorbidity and body mass index (BMI) of 35.0 to 35.9 in adult, unspecified obesity type ([facility]/HCC); Nausea; Gastroesophageal reflux disease, unspecified whether esophagitis present from Last 3 Months Immunizations Name Administration Dates Next Due DTP 04/25/1993,02/23/1993,1992 [id number] (Pentacel) 2mo to less than 5yo 02/23/1994,04/25/1993,02/23/1993,12/24 [...] 11:30 AM EDT Office Visit Gastroenterology - [place] 175 [facility] 175 [facility] [address] [place] [phone] Anny Vogel PA 175 [facility] 200 [place], [place] [phone] 10/16/2024 8:30 AM EDT Office Visit Bariatric Surgery - [place] 175 [facility] 120 [place] [phone] Dayana Frost MD 175 [facility] 120 [place] [phone] 10/17/2024 8:00 AM EDT Appointment [facility] Pain Management [address] [place] [phone] Blanco Sanders DO [address] [facility] 102 [place] [address] 11/29/2024 1:30 PM EDT Office Visit Obstetrics and Gynecology - [place] [address] [place] [phone] Jewels Rogers, [facility] [address] [place] [address] Health Maintenance Due Date Last Done Comments [...] 08/01/2024 10:23 AM EST S/P bariatric surgery LIPID PANEL Routine 05/21/2023 HM HPV Routine 09/28/2022 HEPATITIS C SCREENING Routine 01/27/2022 HIV SCREENING Routine 01/27/2022 from Last 3 Months or Most Recently Relevant to Health Maintenance Results * Parathyroid hormone intact (08/21/2024 10:22 AM EST) PTH 54.2 18.5 - 88.0 pcg/mL LAB CHEMISTRY METHOD 08/21/2024 2:11 PM EST [facility] Blood Venous blood specimen / Unknown 08/21/2024 10:22 AM EST 08/21/2024 1:17 PM EST us Donald LINDO LAB BLOOD ORDERABLES Final Res ult [facility] ([facility] [address] [place] [address], [place] [phone] * NM Hepatobiliary System Imaging (08/01/2024 10:23 [...] Signed Date: 08/06/2024 10:00 ET Workstation ID: [id number] Transcribed By: Self Edit Transcribed Date: 08/06/2024 [...] Signed Date: 08/06/2024 10:00 ET Workstation ID: [id number] Transcribed By: Self Edit Transcribed Date: 08/06/2024 09:52 ET Dayana Frost MD IMG NM PROCEDURES Final Result * (ABNORMAL) Lipid panel (05/21/2023) [facility] LDL/HDL Ratio 4 0 - 4 Triglycerides 190(A) 0 - 150 mg/dL Cholesterol 196 0 - 200 mg/dL HDL 53 >=40 mg/dL LDL Cholesterol 105(A) 0 - 100 mg/dL Blood Venous blood specimen / Unknown Historical Provider LAB BLOOD ORDERABLES Nicole l Result * Cervical Cancer Screening: HPV (09/28/2022) Pathologist [facility] Cervical Cancer Screening: HPV abstracted, negative Historical Provider HEALTH MAINTENANCE Final Result * HIV Screening (01/27/2022) HIV Screening abstracted Historical Provider HEALTH MAINTENANCE Final Result * Hm Hepatitis C Screening (01/27/2022) HM Hepatitis C Screening abstracted us Historical Provider HEALTH MAINTENANCE Final Result from Last 3 Months or Most Recently Relevant to Health Maintenance Insurance [facility] MEDICARE Member Subscriber Plan / Payer (Ef fective 2022-Present) Name:Jia Valdez Relation to Subscriber:Self Name:Jia Valdez Payer ID:[id number] Group ID:[id number] Type:Not on file Address: [address] [facility] [place] [id number] MEDICARE Care Teams Jira Administrator Relationship Specialty Start Date End Date Cassius Alvarez MD [address] [place] [phone] PCP - General Internal Medicine 06/07/24
--- OUTSIDE RECORDS SUMMARY | 2024-09-19 09:22 | XMS_ITS | Encounter Summary ---
Author Organization [facility] Address [address] [place] [address] Care Team Providers Care Relief Worker Name Role Flume WorkerKenny Morales MD Primary Care Provider Unavailab Neli Anderson MD Primary Care Provider Debora Brian Johnston PA-C Primary Care Provider Unavail able Cassius Alvarez MD Primary Care Provider Unavail able [facility], Pcp Primary Care Provider Unavailabl Cassius Heaton MD Primary Care Provider Unavail able [facility], Pcp Primary Care Provider Unavailabl e Cassius Alvarez MD Primary Care Provider Unavail able Encounter Details Date Type Department Care Team Description 04/24/2013 Investigation Division Lieutenant Report Medical Records [address] [place] [address] Silvino Valero MD Social History Tobacco Use [...] documented as of this encounter Care Teams Relief Worker Relationship Specialty Start Date End Date Kenny [...]
--- OUTSIDE RECORDS SUMMARY | 2024-09-19 09:22 | XMS_ITS | Encounter Summary ---
Author Organization [facility] Address [address] [place] [address] Care Team Providers Care Mortgage Collector Name Role Phone Neli Andrews MD Primary Care Provider Debora Brian Johnston PA-C Primary Care Provider Unavail able Cassius Alvarez MD Primary Care Provider Unavail able [facility], Pcp Primary Care Provider UnavailCassius Schmitz MD Primary Care Provider Unavail able [facility], Pcp Primary Care Provider UnavailCassius Schmitz MD Primary Care Provider Unavail able Reason for Visit * Reason Onset Date Comments REFERRAL 06/05/2019 Encounter Details Date Type Department Care Team Description 06/05/2019 [facility] [address] [phone] Neli Andrews MD REFERRAL Social History Tobacco [...] documented as of this encounter Care Teams Mortgage Collector Relationship Specialty Start Date End Date Neli [...]
--- OUTSIDE RECORDS SUMMARY | 2024-09-19 09:23 | XMS_ITS | Encounter Summary ---
Author Organization [facility] Address [address] [place] [address] Care Team Providers Care Assistant Baseball Coach Name Role Health Sciences ManagerKenny Morales MD Primary Care Provider Unavailab Neli Anderson MD Primary Care Provider Debora Brian Johnston PA-C Primary Care Provider Unavail able Cassius Alvarez MD Primary Care Provider Unavail able [facility], Pcp Primary Care Provider Unavailabl Cassius Heaton MD Primary Care Provider Unavail able [facility], Pcp Primary Care Provider Unavailabl e Cassius Alvarez MD Primary Care Provider Unavail able Encounter Details Date Type Department Care Team Description 05/06/2015 Pt. Non Urgent Medical Question Chiropractic - [place] [address] [place] [address] Daniel Brothers D.C. Social History Tobacco Use [...] documented as of this encounter Care Teams Assistant Baseball Coach Relationship Specialty Start Date End Date Kenny [...]
--- OUTSIDE RECORDS SUMMARY | 2024-09-19 09:23 | XMS_ITS | Encounter Summary ---
Author Organization [facility] Address [address] [place] [address] Care Team Providers Care Deputy Director Of Public Works Name Role Wares SorterKenny Morales MD Primary Care Provider Unavailab Neli Anderson MD Primary Care Provider Debora Brian Johnston PA-C Primary Care Provider Unavail able Cassius Alvarez MD Primary Care Provider Unavail able [facility], Pcp Primary Care Provider Unavailabl e Cassius Alvarez MD Primary Care Provider Unavail able [facility], Pcp Primary Care Provider Unavailabl e Cassius Alvarez MD Primary Care Provider Unavail able Reason for Visit * Reason Onset Date Comments Leg Pain 05/06/2015 Back Pain 05/06/2015 Encounter Details Date Type Department Care Team Description 05/06/2015 Telephone Chiropractic - [address] [address] Daniel Brothers D.C. Leg Pain; Back Pain [...] documented as of this encounter Care Teams Deputy Director Of Public Works Relationship Specialty Start Date End Date Kenny [...]
--- OUTSIDE RECORDS SUMMARY | 2024-09-19 09:23 | XMS_ITS | Encounter Summary ---
Author Organization [facility] Address [address] [place] [address] Care Team Providers Care Lubrication Supervisor Name Role Phone Cassius Alvarez MD Primary Care Provider Unavail able Encounter Details Date Type Department Care Team Description 02/04/2023 Pt. Non Urgent Medic al Question OBGYN - [place] [address] [place] [address] Jc Barbour DO Social History Tobacco Use [...] suspected to have Coronavirus/COVID-19? No / Unsure 01/27/2023 11:35 AM EDT documented as of this encounter Miscellaneous Notes * Telephone Encounter - Demi Lara R.N. - 02/04/2023 9:01 AM EDTFrom: Jia Valdez To: Candice Barbour Sent: 02/04/2023 6:58 AM EDT Subject: Period Hello, so my period is 2 days late and I haven???t missed a single control pill since we restarted it and I took a test and it was negative. But I have no symptoms of my period starting. Is this normal being that I???m ? And when is it a cause of concern? -Jia documented in this encounter Plan of Treatment Not on file documented as of this encounter Visit Diagnoses Not on filedocumented in this encounter Care Teams Lubrication Supervisor Relationship Specialty Start Date End Date Cassius Alvarez MD PCP - General Internal Medicine 01/20/23 documented as of this encounter
--- OUTSIDE RECORDS SUMMARY | 2024-09-19 09:23 | XMS_ITS | Encounter Summary ---
Author Organization [facility] Address [address] [place] [address] Care Team Providers Care Head Waitress Name Role Phone [facility], Pcp Primary Care Provider Cassius Guevara MD Primary Care Provider Unavail able [facility], Pcp Primary Care Provider Cassius Guevara MD Primary Care Provider Unavail able Encounter Details Date Type Department Care Team Description 12/15/2021 Actuary Manager Report Medical Records [address] [place] [address] Prashant Brady MD Social History Tobacco Use [...] suspected to have Coronavirus/COVID-19? No / Unsure 12/17/2021 8:21 AM EDT documented as of this encounter Plan of Treatment Not on file documented as of this encounter Visit Diagnoses Not on filedocumented in this encounter Care Teams Head Waitress Relationship Specialty Start Date End Date [facility], Pcp PCP - General Internal Medicine 11/17/21 03/02/22 Cassius Alvarez MD PCP - General Internal Medicine 03/03/22 07/08/22 [facility], Pcp PCP - General Internal Medicine 07/09/22 01/19/23 Cassius Alvarez MD PCP - General Internal Medicine 01/20/23 documented as of this encounter
--- OUTSIDE RECORDS SUMMARY | 2024-09-19 09:23 | XMS_ITS | Encounter Summary ---
Author [facility] Address [address] [place] [address] Care Team Providers Care Lay Out Inspector Name Role Phone Cassius Alvarez MD Primary Care Provider Unavail able [facility], Pcp Primary Care Provider Unavailabl e Cassius Alvarez MD Primary Care Provider Unavail able Encounter Details Date Type Department Care Team Description 05/18/2022 Refill OBGYN - [place] [address] [place] [address] Jc Barbour, DO Social History Tobacco Use [...] Telephone Encounter - Demi Lara R.N. - 05/19/2022 2:42 PM EST Call to patient; states she continues to use unisom for occasional nausea, that she states is creeping back, but mostly to use to help with sleep at night, but not every night. Advised will let her provider know for request for refill of unisom. Verbalized understanding. * Telephone Encounter - Jewels Rogers CNM - 05/19/2022 11:12 AM EST Request for Unisom. Though the N/V had resolved. Was this automatic refill request or is pt requesting because N/V has resumed? Please triage need for med Jewels Rogers CNM documented in this encounter Plan of Treatment Not on file documented as of this encounter Visit Diagnoses Not on filedocumented in this encounter Care Teams Lay Out Inspector Relationship Specialty Start Date End Date Cassius Alvarez MD PCP - General Internal Medicine 03/03/22 07/08/22 [facility], Pcp PCP - General Internal Medicine 07/09/22 01/19/23 Cassius Alvarez MD PCP - General Internal Medicine 01/20/23 documented as of this encounter
--- OUTSIDE RECORDS SUMMARY | 2024-09-19 09:23 | XMS_ITS | Encounter Summary ---
Author Organization [facility] Address [address] [place] [address] Care Team Providers Care Industrial Locomotive Operator Name Role Phone Cassius Alvarez MD Primary Care Provider [phone] Encounter Details Date Type Department Care Team (Latest Contact Info) Description 08/21/2024 Lab Requisition [facility] - Main Lab [address] [facility] [address] [facility] [place] [address] Donald Wall, GUICHO [facility] [address] [place] [phone] Hydronephrosis with renal and ureteral calculous obstruction [...] 11:30 AM EDT Office Visit Gastroenterology - [place] [address] [phone] Anny Vogel PA [address] [address] 10/16/2024 8:30 AM EDT Office Visit Bariatric Surgery - [place] [address] [phone] Dayana Frost MD [address] [phone] 10/17/2024 8:00 AM EDT Appointment [facility] [address] [place] [phone] Blanco Sanders DO [address] [address] 11/29/2024 1:30 PM EDT Office Visit Obstetrics and Gynecology - [place] [address] [place] [phone] Jewels Rogers, [facility] [address] [place], [place] documented as of this encounter Procedures Procedure Name Priority Date/Time Associated Diagnosis Comments PARATHYROID HORMONE INTACT Routine 08/21/2024 10:22 AM EST Hydronephrosis with renal and ureteral calculous obstruction documented in this encounter Results * Parathyroid hormone intact (08/21/2024 10:22 AM EST) PTH 54.2 18.5 - 88.0 pcg/mL LAB CHEMISTRY METHOD 08/21/2024 2:11 PM EST [facility] Blood Venous blood specimen / Unknown 08/21/2024 10:22 AM EST 08/21/2024 1:17 PM EST us Donald R Mae PA LAB BLOOD ORDERABLES Final Res ult [facility] [address] [place] [address], documented in this encounter Visit Diagnoses Diagnosis Hydronephrosis with renal and ureteral calculous obstruction documented in this encounter Care Teams Industrial Locomotive Operator Relationship Specialty Start Date End Date Cassius Alvarez MD [address] [place] [address] PCP - General Internal Medicine 06/07/24 documented as of this encounter
--- OUTSIDE RECORDS SUMMARY | 2024-09-19 09:23 | XMS_ITS | Encounter Summary ---
Author Organization [facility] Address [address] [place] [address] Care Team Providers Care Flask Handler Name Role Phone Community, Pcp Primary Care Provider Cassius Guevara MD Primary Care Provider Unavail able Community, Pcp Primary Care Provider Cassius Guevara MD Primary Care Provider Unavail able Encounter Details Date Type Department Care Team Description 12/11/2021 Pt. Non Urgent Medic al Question OBGYN - [address] [address] Jc Barbour, Social History Tobacco Use Types [...] on filedocumented in this encounter Care Teams Flask Handler Relationship Specialty Start Date End Date Community, Pcp PCP - General Internal Medicine 11/17/21 03/02/22 Cassius Alvarez MD PCP - General Internal Medicine 03/03/22 07/08/22 Community, Pcp PCP - General Internal Medicine 07/09/22 01/19/23 Cassius Alvarez MD PCP - General Internal Medicine 01/20/23 documented as of this encounter
--- OUTSIDE RECORDS SUMMARY | 2024-09-19 09:23 | XMS_ITS | Encounter Summary ---
Author Organization [facility] Address [address] [place] [address] Care Team Providers Care Rn Flight Name Role Gold MarkerKenny Morales MD Primary Care Provider Unavailab Neli Anderson MD Primary Care Provider Debora Brian Johnston PA-C Primary Care Provider Unavail able Cassius Alvarez MD Primary Care Provider Unavail able [facility], Pcp Primary Care Provider Unavailabl Cassius Heaton MD Primary Care Provider Unavail able [facility], Pcp Primary Care Provider Unavailabl e Cassius Alvarez MD Primary Care Provider Unavail able Encounter Details Date Type Department Care Team Description 06/02/2015 Pt. Non Urgent Medical Question Chiropractic - [place] [address] [place] [address] Daniel Brothers D.C. Social History Tobacco Use [...] as of this encounter Care Teams Rn Flight Relationship Specialty Start Date End Date Kenny [...]
--- OUTSIDE RECORDS SUMMARY | 2024-09-19 09:23 | XMS_ITS | Encounter Summary ---
Author Organization [facility] Address [address] [place] [address] Care Team Providers Care Supervisor Warping Department Name Role Phone Community, Pcp Primary Care Provider Cassius Guevara MD Primary Care Provider Unavail able [facility], Pcp Primary Care Provider Cassius Guevara MD Primary Care Provider Unavail able Encounter Details Date Type Department Care Team Description 12/04/2021 Pt. Non Urgent Medic al Question OBGYN - [place] [address] [place] [address] Jc Barbour, Social History Tobacco Use Types [...] documented as of this encounter Care Teams Supervisor Warping Department Relationship Specialty Start Date End Date Community, Pcp PCP - General Internal Medicine 5/9/22 8/22/22 Cassius Alvarez MD PCP - General Internal Medicine 03/03/22 07/08/22 [facility], Pcp PCP - General Internal Medicine 07/09/22 01/19/23 Cassius Alvarez MD PCP - General Internal Medicine 01/20/23 documented as of this encounter
--- OUTSIDE RECORDS SUMMARY | 2024-09-19 09:23 | XMS_ITS | Encounter Summary ---
Author Organization [facility] Address [address] [place] [address] Care Team Providers Care Photograph Enlarger Name Role Phone Cassius Alvarez MD Primary Care Provider Unavail able Community, Pcp Primary Care Provider Cassius Guevara MD Primary Care Provider Unavail able [facility], [facility] Primary Care Provider UnavailCassius Schmitz MD Primary Care Provider Unavail able Encounter Details Date Type Department Care Team Description 11/14/2021 Pt. Non Urgent Medic al Question OBGYN - [address] [phone] Jc Barbour DO Social History Tobacco Use [...] suspected to have Coronavirus/COVID-19? Unable to assess 11/14/2021 10:01 AM EDT documented as of this encounter Miscellaneous Notes * Telephone Encounter - Jc Barbour DO - 11/18/2021 2:15 PM EDT Do mind calling this patient to see how she is feeling and how her bleeding is? She is scheduled for an abdominal myomectomy next Wednesday. Thank you, Jc * Telephone Encounter - Hedy Edmonds R.N. - 11/14/2021 10:21 AM EDTFrom: Jia Valdez To: Candice Barbour Sent: 11/14/2021 6:21 AM EDT Subject: Update Hello, my mom suggested I just give you a little update. I don???t need a message back or anything,we just wanted to keep you in the loop. I???ve been passing golf ball (manjit) size clots since Wednesday night. I do have a picture that I had sent to my mom. My moms main concern was that I???m changing my overnight pads every hour and a half becau se I???m bleeding through them during the day. She also just wanted me to mention that I have a history of anemia and didn't know if I should be takingsome sort of iron or something. Thank you. See you soon. -Jia documented in this encounter Plan of Treatment Not on file documented as of this encounter Visit Diagnoses Not on filedocumented in this encounter Additional Health Concerns Infection Onset Date Last Indicated Resolved Time COVID-19 08/27/2021 08/28/2021 12/04/2021 9:44 AM EDT documented as of this encounter Care Teams Photograph Enlarger Relationship Specialty Start Date End Date Cassius [...]
--- OUTSIDE RECORDS SUMMARY | 2024-09-19 09:23 | XMS_ITS | Encounter Summary ---
Author [facility] Address [address] [place] [address] Care Team Providers Care Greeting Card Writer Name Role Phone Neli Andrews MD Primary Care Provider Debora Brian Johnston PA-C Primary Care Provider Unavail able Cassius Alvarez MD Primary Care Provider Unavail able [facility], Pcp Primary Care Provider UnavailCassius Schmitz MD Primary Care Provider Unavail able [facility], Pcp Primary Care Provider UnavailCassius Schmitz MD Primary Care Provider Unavail able Encounter Details Date Type Department Care Team Description 10/06/2019 [facility] Medical Records [address] [place] [address] Abstract, Provider Social History Tobacco Use Types [...] documented as of this encounter Care Teams Greeting Card Writer Relationship Specialty Start Date End Date Neli [...]
--- OUTSIDE RECORDS SUMMARY | 2024-09-19 09:23 | XMS_ITS | Encounter Summary ---
Author Organization [facility] Address [address] [place] [address] Care Team Providers Care Toll Repairer Central Office Name Role Molding Line AssistantKenny Morales MD Primary Care Provider Unavailab Neli Anderson MD Primary Care Provider Debora Brian Johnston PA-C Primary Care Provider Unavail able Cassius Alvarez MD Primary Care Provider Unavail able [facility], Pcp Primary Care Provider UnavailCassius Schmitz MD Primary Care Provider Unavail able [facility], Pcp Primary Care Provider UnavailCassius Schmitz MD Primary Care Provider Unavail able Encounter Details Date Type Department Care Team Description 09/02/2015 Stopperer Assembler Report Medical Records [address] [place] [address] Social History Tobacco Use Types Packs/Day Years [...] documented as of this encounter Care Teams Toll Repairer Central Office Relationship Specialty Start Date End Date Kenny Morales MD PCP - General Internal Medicine 12/31/11 03/17/18 Neli Andrews MD PCP - General Internal Medicine 03/18/18 1 Brian Daivs PA-C PCP - General Med/Peds 03/25/21 04/02/21 [...]
--- OUTSIDE RECORDS SUMMARY | 2024-09-19 09:23 | XMS_ITS | Encounter Summary ---
Author Organization [facility] Address [address] [place] [address] Care Team Providers Care Preschool Assistant Name Role Phone Neli Andrews MD Primary Care Provider Debora Brian Johnston PA-C Primary Care Provider Unavail able Cassius Alvarez MD Primary Care Provider Unavail able [facility], Pcp Primary Care Provider UnavailCassius Schmitz MD Primary Care Provider Unavail able [facility], Pcp Primary Care Provider UnavailCassius Schmitz MD Primary Care Provider Unavail able Encounter Details Date Type Department Care Team Description 10/06/2020 Pt. Non Urgent Medical Question General Surgery - [place] 175 [facility] [address] [place] [phone] Dayana Frost MD 175 [facility] Jignesh [address] [place] [phone] Social History Tobacco Use Types Packs/Day [...] documented as of this encounter Care Teams Preschool Assistant Relationship Specialty Start Date End Date Neli [...]
--- OUTSIDE RECORDS SUMMARY | 2024-09-19 09:23 | XMS_ITS | Encounter Summary ---
Author Organization [facility] Address [address] [place] [address] Care Team Providers Care Termite Control Representative Name Role Phone Community, Pcp Primary Care Provider Cassius Guevara MD Primary Care Provider Unavail able Community, Pcp Primary Care Provider Cassius Guevara MD Primary Care Provider Unavail able Encounter Details Date Type Department Care Team Description 11/29/2021 Hospital Medical Records [address] [place] [address] Shannon He MD [address] [place] [address] [phone] Social History Tobacco Use Types Packs/Day Years [...] documented as of this encounter Care Teams Termite Control Representative Relationship Specialty Start Date End Date Community, Pcp PCP - General Internal Medicine 11/17/21 03/02/22 Cassius Alvarez MD PCP - General Internal Medicine 03/03/22 07/08/22 Community, Pcp PCP - General Internal Medicine 07/09/22 01/19/23 Cassius Alvarez MD PCP - General Internal Medicine 01/20/23 documented as of this encounter
--- OUTSIDE RECORDS SUMMARY | 2024-09-19 09:23 | XMS_ITS | Encounter Summary ---
Author Organization [facility] Address [address] [place] [address] Care Team Providers Care Recovery Rn Name Role Manager TitleKenny Morales MD Primary Care Provider Unavailab Neli [...] Date Type Department Care Team Description 01/18/2015 Coagulation Operator Report Medical Records [address] [place] [address] Karen Contreras MD Social History Tobacco Use [...] documented as of this encounter Care Teams Recovery Rn Relationship Specialty Start Date End Date Kenny [...]
--- OUTSIDE RECORDS SUMMARY | 2024-09-19 09:23 | XMS_ITS | Encounter Summary ---
Author Organization [facility] Address [address] [place] [address] Care Team Providers Care Simulation Analyst Name Role Phone Community, Pcp Primary Care Provider Cassius Guevara MD Primary Care Provider Unavail able Community, Pcp Primary Care Provider Cassius Guevara MD Primary Care Provider Unavail able Encounter Details Date Type Department Care Team Description 12/09/2021 Orders Only OBGYN - [place] [address] [place] [phone] Shannon He MD [address] [place] [address] [phone] with uncertain dates, antepartum (Primary Dx); S/P [...] status documented in this encounter Care Teams Simulation Analyst Relationship Specialty Start Date End Date Community, Pcp PCP - General Internal Medicine 11/17/21 03/02/22 Cassius Alvarez MD PCP - General Internal Medicine 03/03/22 07/08/22 [facility], Pcp PCP - General Internal Medicine 07/09/22 01/19/23 Cassius Alvarez MD PCP - General Internal Medicine 01/20/23 documented as of this encounter
--- OUTSIDE RECORDS SUMMARY | 2024-09-19 09:23 | XMS_ITS | Encounter Summary ---
Author Organization [facility] Address [address] [place] [address] Care Team Providers Care Casting Director Name Role Search Engine Marketing ManagerKenny Morales MD Primary Care Provider Unavailab Neli Anderson MD Primary Care Provider Debora Brian Johnston PA-C Primary Care Provider Unavail able Cassius Alvarez MD Primary Care Provider Unavail able [facility], Pcp Primary Care Provider UnavailCassius Schmitz MD Primary Care Provider Unavail able [facility], Pcp Primary Care Provider Unavailabl Cassius Heaton MD Primary Care Provider Unavail able Encounter Details Date Type Department Care Team Description 06/10/2015 Release of Information Medical Records [address] [place] [address] Abstract, Provider Social History Tobacco Use Types [...] documented as of this encounter Care Teams Casting Director Relationship Specialty Start Date End Date [...]
--- OUTSIDE RECORDS SUMMARY | 2024-09-19 09:23 | XMS_ITS | Encounter Summary ---
[facility] Organization [facility] Address [address] [place] [address] Care Team Providers Care Reagent Tender Name Role Lead Python DeveloperKenny Morales MD Primary Care Provider Unavailab Neli Anderson MD Primary Care Provider Debora Brian Johnston PA-C Primary Care Provider Unavail able Cassius Alvarez MD Primary Care Provider Unavail able [facility], Pcp Primary Care Provider Unavailabl Cassius Heaton MD Primary Care Provider Unavail able [facility], Pcp Primary Care Provider Unavailabl e Cassius Alvarez MD Primary Care Provider Unavail able Encounter Details Date Type Department Care Team Description 03/28/2015 Combination Technician Report Medical Records [address] [place] [id number] [place] [address] [employer], [address] [phone] Social History Tobacco Use Types [...] documented as of this encounter Care Teams Reagent Tender Relationship Specialty Start Date End Date Kenny [...]
--- OUTSIDE RECORDS SUMMARY | 2024-09-19 09:23 | XMS_ITS | Encounter Summary ---
Author Organization [facility] Address [address] [place] [address] Care Team Providers Care Private Investigator Surveillance Name Role Phone Cassius Alvarez MD Primary Care Provider Unavail able Community, Pcp Primary Care Provider Unavailabl e Cassius Alvarez MD Primary Care Provider Unavail able Encounter Details Date Type Department Care Team Description 06/02/2022 Pt. Non Urgent Medical Question OBGYN - [place] [address] [place] [address] Jewels Rogers, [facility] [address] [place] [address] Social History Tobacco Use Types Packs/Day Years [...] on filedocumented in this encounter Care Teams Private Investigator Surveillance Relationship Specialty Start Date End Date Cassius Alvarez MD PCP - General Internal Medicine 03/03/22 07/08/22 Community, Pcp PCP - General Internal Medicine 07/09/22 01/19/23 Cassius Alvarez MD PCP - General Internal Medicine 01/20/23 documented as of this encounter
--- OUTSIDE RECORDS SUMMARY | 2024-09-19 09:23 | XMS_ITS | Encounter Summary ---
Author Organization [employer] [facility] Address [address] [place] [address] Care Team Providers Care Cook Sauce Name Role Phone Community, Pcp Primary Care Provider Cassius Guevara MD Primary Care Provider Unavail able Community, Pcp Primary Care Provider Cassius Guevara MD Primary Care Provider Unavail able Encounter Details Date Type Department Care Team Description 12/02/2021 Orders Only Medical Records [address] [place] [address] Jc Barbour DO Social History Tobacco Use [...] documented as of this encounter Care Teams Cook Sauce Relationship Specialty Start Date End Date Community, Pcp PCP - General Internal Medicine 11/17/21 03/02/22 Cassius Alvarez MD PCP - General Internal Medicine 03/03/22 07/08/22 Community, Pcp PCP - General Internal Medicine 07/09/22 01/19/23 Cassius Alvarez MD PCP - General Internal Medicine 01/20/23 documented as of this encounter
--- OUTSIDE RECORDS SUMMARY | 2024-09-19 09:23 | XMS_ITS | Encounter Summary ---
Author Organization [facility] Address [address] [place] [address] Care Team Providers Care Visual Aid Expert Name Role Phone Neli Andrews MD Primary Care Provider Debora Brian Johnston PA-C Primary Care Provider Unavail able Cassius Alvarez MD Primary Care Provider Unavail able [facility], Pcp Primary Care Provider UnavailCassius Schmitz MD Primary Care Provider Unavail able [facility], Pcp Primary Care Provider UnavailCassius Schmitz MD Primary Care Provider Unavail able Reason for Visit * Reason Onset Date Comments Medical Records 05/13/2020 MERGE DUPLICATE ACCOUNT Encounter Details Date Type Department Care Team Description 05/13/2020 Telephone Medicine/Pediatrics [address] [phone] Neli Andrews MD Medical Records (MERGE DUPLICATE [...] documented as of this encounter Care Teams Visual Aid Expert Relationship Specialty Start Date End Date Neli [...]
--- OUTSIDE RECORDS SUMMARY | 2024-09-19 09:23 | XMS_ITS | Encounter Summary ---
[facility] [address] [place] [address] Care Team Providers Care And Rescue Fire Fighter Crash Fire Name Role Phone Cassius Alvarez MD Primary Care Provider Unavail able Community, Pcp Primary Care Provider Unavailabl e Cassius Alvarez MD Primary Care Provider Unavail able Encounter Details Date Type Department Care Team Description 07/07/2022 Pt. Non Urgent Medical Question OBGYN - [place] [address] [place] [address] Jewels Rogers, CN [address] [place] [address] Social History Tobacco Use Types Packs/Day Years [...] on filedocumented in this encounter Care Teams And Rescue Fire Fighter Crash Fire Relationship Specialty Start Date End Date Cassius Alvarez MD PCP - General Internal Medicine 03/03/22 07/08/22 Community, Pcp PCP - General Internal Medicine 07/09/22 01/19/23 Cassius Alvarez MD PCP - General Internal Medicine 01/20/23 documented as of this encounter
--- OUTSIDE RECORDS SUMMARY | 2024-09-19 09:23 | XMS_ITS | Encounter Summary ---
Author Organization [facility] Address [address] [place] [address] Care Team Providers Care Bleach Liquor Maker Name Role Ager OperatorKenny Morales MD Primary Care Provider Unavailab Neli Anderson MD Primary Care Provider Debora Brian Johnston PA-C Primary Care Provider Unavail able Cassius Alvarez MD Primary Care Provider Unavail able [facility], Pcp Primary Care Provider Unavailabl Cassius Heaton MD Primary Care Provider Unavail able [facility], Pcp Primary Care Provider Unavailabl Cassius Heaton MD Primary Care Provider Unavail able Encounter Details Date Type Department Care Team Description 06/10/2015 Tip Scourer Report Medical Records [address] [place] [address] Ana Laura Pepper NP Social History Tobacco Use Types Packs/Day [...] documented as of this encounter Care Teams Bleach Liquor Maker Relationship Specialty Start Date End Date Kenny [...]
--- OUTSIDE RECORDS SUMMARY | 2024-09-19 09:23 | XMS_ITS | Encounter Summary ---
Author Organization [facility] Address [address] [place] [address] Care Team Providers Care Market Development Analyst Name Role Phone Cassius Alvarez MD Primary Care Provider Unavail able [facility], Pcp Primary Care Provider Unavailabl e Cassius Alvarez MD Primary Care Provider Unavail able Reason for Visit * Reason Comments E-prescribe Rx Request Encounter Details Date Type Department Care Team Description 04/12/2022 Refill OBGYN - [place] [address] [place] [address] Jc Barbour DO E-prescribe Rx Request Social [...] Miscellaneous Notes * Telephone Encounter - Ruthie Luisa - 04/13/2022 12:36 PM EDT WHEN WAS THE PATIENTS LAST ANNUAL FISHER CLAM EXAM? 02/06/22 IP Does patient have an [...] the end of the day? NO Payor: [facility] MCR / Plan: [facility] / Product Type: HMO [id number] documented in this encounter Plan of Treatment Not on file documented as of this encounter Visit Diagnoses Not on filedocumented in this encounter Care Teams Market Development Analyst Relationship Specialty Start Date End Date Cassius Alvarez MD PCP - General Internal Medicine 03/03/22 07/08/22 [facility] Pcp PCP - General Internal Medicine 07/09/22 01/19/23 Cassius Alvarez MD PCP - General Internal Medicine 01/20/23 documented as of this encounter
--- OUTSIDE RECORDS SUMMARY | 2024-09-19 09:23 | XMS_ITS | Encounter Summary ---
Author Organization [facility] Address [address] [place] [address] Care Team Providers Care Vocational Placement Specialist Name Role Phone Neli Andrews MD Primary Care Provider Debora Brian Johnston PA-C Primary Care Provider Unavail able Cassius Alvarez MD Primary Care Provider Unavail able [facility], Pcp Primary Care Provider UnavailCassius Schmitz MD Primary Care Provider Unavail able [facility], Pcp Primary Care Provider UnavailCassius Schmitz MD Primary Care Provider Unavail able Encounter Details Date Type Department Care Team Description 05/21/2020 Underwriting Clerks Supervisor Report Medical Records [address] [place] [address] Chelsea Singh MD Social History Tobacco Use [...] documented as of this encounter Care Teams Vocational Placement Specialist Relationship Specialty Start Date End Date [...]
--- OUTSIDE RECORDS SUMMARY | 2024-09-19 09:23 | XMS_ITS | Encounter Summary ---
Author Organization [facility] Address [address] [place] [address] Care Team Providers Care Tig Welder Name Role Phone Community, Pcp Primary Care Provider Cassius Guevara MD Primary Care Provider Unavail able Community, Pcp Primary Care Provider Cassius Guevara MD Primary Care Provider Unavail able Encounter Details Date Type Department Care Team Description 02/02/2022 Transfer Records Medical Records [address] [place] [address] Social History Tobacco Use Types Packs/Day Years [...] on filedocumented in this encounter Care Teams Tig Welder Relationship Specialty Start Date End Date Community, Pcp PCP - General Internal Medicine 11/17/21 03/02/22 Cassius Alvarez MD PCP - General Internal Medicine 03/03/22 07/08/22 Community, Pcp PCP - General Internal Medicine 07/09/22 01/19/23 Cassius Alvarez MD PCP - General Internal Medicine 01/20/23 documented as of this encounter
--- OUTSIDE RECORDS SUMMARY | 2024-09-19 09:23 | XMS_ITS | Encounter Summary ---
Author Organization [facility] Address [address] [place] [address] Care Team Providers Care Reprographics Associate Name Role Agent Contract ClerkKenny Morales MD Primary Care Provider Unavailab Neli Anderson MD Primary Care Provider Debora Brian Johnston PA-C Primary Care Provider Unavail able Cassius Alvarez MD Primary Care Provider Unavail able [facility], Pcp Primary Care Provider Unavailabl Cassius Heaton MD Primary Care Provider Unavail able [facility], Pcp Primary Care Provider Unavailabl e Cassius Alvarez MD Primary Care Provider Unavail able Reason for Visit * Reason Onset Date Comments injection 08/26/2015 Encounter Details Date Type Department Care Team Description 08/26/2015 Telephone Physiatry - [address] [address] Blanco Sanders DO injection Social History Tobacco [...] with Dr. Sanders on 09/02/15 at the [facility], but is having a lot of pain and is asking if Dr. Sanders can do the injection any sooner. I advised patient that heis only at the [facility] on Mondays, and that he only does injections under sedation at the [facility], but she is asking if he would [...] documented as of this encounter Care Teams Reprographics Associate Relationship Specialty Start Date End Date Kenny Morales MD PCP - General Internal Medicine 12/31/11 03/17/18 Neli Andrews MD PCP - General Internal Medicine 03/18/18 1 Brian Davis PA-C PCP - General Med/Peds 03/25/21 04/02/21 Cassius Alvarez MD PCP - General Internal Medicine 04/03/21 11/16/21 [facility], Pcp PCP - General Internal Medicine 11/17/21 03/02/22 Cassius Alvarez MD PCP - General Internal Medicine 03/03/22 07/08/22 [facility], Pcp PCP - General Internal Medicine 07/09/22 01/19/23 Cassius Alvarez MD PCP - General Internal Medicine 01/20/23 documented as of this encounter
--- OUTSIDE RECORDS SUMMARY | 2024-09-19 09:23 | XMS_ITS | Encounter Summary ---
Author Organization [facility] Address [address] [place] [address] Care Team Providers Care Cone Classifier Tender Name Role Phone Neli Andrews MD Primary Care Provider Debora Brian Johnston PA-C Primary Care Provider Unavail able Cassius Alvarez MD Primary Care Provider Unavail able [facility], Pcp Primary Care Provider UnavailCassius Schmitz MD Primary Care Provider Unavail able [facility], Pcp Primary Care Provider UnavailCassius Schmitz MD Primary Care Provider Unavail able Encounter Details Date Type Department Care Team Description 06/04/2020 [facility] Medical Records [address] [place] [address] Abstract, Provider Social History Tobacco Use Types [...] have Coronavirus / COVID-19? No / Unsure 06/01/2020 3:28 PM EST documented as of this encounter Plan of Treatment Not on file documented as of this encounter Visit Diagnoses Not on filedocumented in this encounter Additional Health Concerns Infection Onset Date Last Indicated Resolved Time COVID-19 08/27/2021 08/28/2021 12/04/2021 9:44 AM EDT documented as of this encounter Care Teams Cone Classifier Tender Relationship Specialty Start Date End Date Neli [...]
--- OUTSIDE RECORDS SUMMARY | 2024-09-19 09:23 | XMS_ITS | Encounter Summary ---
Author Organization [facility] Address [address] [place] [address] Care Team Providers Care Rubber Heel And Sole Press Tender Name Role Phone Cassius Alvarez MD Primary Care Provider Unavail able [facility], [facility]–1983, Pcp Primary Care Provider Unavailabl e Cassius Alvarez MD Primary Care Provider Unavail able Encounter Details Date Type Department Care Team Description 05/12/2022 Pt. Non Urgent Medical Question OBGYN - [place] [address] [place] [address] Jewels Rogers CNM [address] [place] [address] Social History Tobacco Use Types Packs/Day Years [...] appointment with my primary (Dr Alvarez at [facility]) this morning and he doesn???t seem [...] on filedocumented in this encounter Care Teams Rubber Heel And Sole Press Tender Relationship Specialty Start Date End Date Cassius Alvarez MD PCP - General Internal Medicine 03/03/22 07/08/22 [facility], [facility], Pcp PCP - General Internal Medicine 07/09/22 01/19/23 Cassius Alvarez MD PCP - General Internal Medicine 01/20/23 documented as of this encounter
--- OUTSIDE RECORDS SUMMARY | 2024-09-19 09:23 | XMS_ITS | Encounter Summary ---
[facility] Address [address] [place] [address] Care Team Providers Care Cosmetology Professor Name Role Phone [facility], Pcp Primary Care Provider Cassius Guevara MD Primary Care Provider Unavail able [facility], Pcp Primary Care Provider Cassius Guevara MD Primary Care Provider Unavail able Encounter Details Date Type Department Care Team Description 12/12/2021 [facility]phone [facility] [facility] [address] [place] [address] AppJc andrews, DO Social History Tobacco Use Types Packs/Day [...] on filedocumented in this encounter Care Teams Cosmetology Professor Relationship Specialty Start Date End Date [facility], Pcp PCP - General Internal Medicine 11/17/21 03/02/22 Cassius Alvarez MD PCP - General Internal Medicine 03/03/22 07/08/22 [facility], Pcp PCP - General Internal Medicine 07/09/22 01/19/23 Cassius Alvarez MD PCP - General Internal Medicine 01/20/23 documented as of this encounter
--- OUTSIDE RECORDS SUMMARY | 2024-09-19 09:23 | XMS_ITS | Encounter Summary ---
Author Organization [facility] Address [address] [place] [address] Care Team Providers Care Supervisor Taping Name Role Phone [facility], Pcp Primary Care Provider Cassius Guevara MD Primary Care Provider Unavail able [facility], Pcp Primary Care Provider Cassius Guevara MD Primary Care Provider Unavail able Encounter Details Date Type Department Care Team Description 01/05/2022 Pt. Non Urgent Medic al Question OBGYN - [place] [address] [place] [id number] Jc Barbour, Social History Tobacco Use Types [...] on filedocumented in this encounter Care Teams Supervisor Taping Relationship Specialty Start Date End Date [facility], Pcp PCP - General Internal Medicine 11/17/21 03/02/22 Cassius Alvarez MD PCP - General Internal Medicine 03/03/22 07/08/22 [facility], Pcp PCP - General Internal Medicine 07/09/22 01/19/23 Cassius Alvarez MD PCP - General Internal Medicine 01/20/23 documented as of this encounter
--- OUTSIDE RECORDS SUMMARY | 2024-09-19 09:23 | XMS_ITS | Encounter Summary ---
Author Organization [facility] Address [address] [place] [address] Care Team Providers Care Optical Assistant Name Role Phone [facility], Pcp Primary Care Provider Unavailabl e Cassius Alvarez MD Primary Care Provider Unavail able Reason for Visit * Reason Onset Date Comments 08/03/2022 PERSONNEL Encounter Details Date Type Department Care Team Description 08/03/2022 Telephone OBGYN - [address] [phone] Jc Barbour DO (PERSONNEL) Social [...] on filedocumented in this encounter Care Teams Optical Assistant Relationship Specialty Start Date End Date [facility], Pcp PCP - General Internal Medicine 07/09/22 01/19/23 Cassius Alvarez MD PCP - General Internal Medicine 01/20/23 documented as of this encounter
--- OUTSIDE RECORDS SUMMARY | 2024-09-19 09:24 | XMS_ITS | Encounter Summary ---
Author Organization [facility] Address [address] [place] [address] Care Team Providers Care Feed Mill Manager Name Role Thread CheckerKenny Morales MD Primary Care Provider Unavailab Neli Anderson MD Primary Care Provider Debora Brian Johnston PA-C Primary Care Provider Unavail able Cassius Alvarez MD Primary Care Provider Unavail able [facility], Pcp Primary Care Provider Unavailabl Cassius Heaton MD Primary Care Provider Unavail able [facility], Pcp Primary Care Provider Unavailabl e Cassius Alvarez MD Primary Care Provider Unavail able Encounter Details Date Type Department Care Team Description 11/07/2015 Security Systems Installer Report Medical Records [address] [place] [id number] Silvino Valero MD Social History Tobacco Use [...] documented as of this encounter Care Teams Feed Mill Manager Relationship Specialty Start Date End Date [...]
--- OUTSIDE RECORDS SUMMARY | 2024-09-19 09:24 | XMS_ITS | Encounter Summary ---
[facility] Address [address] [place] [address] Care Team Providers Care Supervisor Benzene Refining Name Role Phone Cassius Alvarez MD Primary Care Provider Unavail able Reason for Visit * Reason Comments E-prescribe Rx Request Encounter Details Date Type Department Care Team Description 08/08/2023 Refill OBGYN - [place] [address] [place] [address] Jc Barbour DO E-prescribe Rx Request Social [...] encounter Miscellaneous Notes * Telephone Encounter - Larissa Ingram - 08/09/2023 12:39 PM EST WHEN WAS THE PATIENTS LAST ANNUAL SCIENCE CENTER DISPLAY BUILDER EXAM? PP 09/17/22 Does patient have an upcoming appointment? No, spoke with patient she isn't comfortable with male provider but will call back at the end of the August to get an annual (THE MEDICATION REQUESTED IS ON THE MED [...] the end of the day? NO Payor: [employer] [facility] [employer] MCR / Plan: [facility] / Product Type: HMO [id number] documented in this encounter Plan of Treatment Not on file documented as of this encounter Visit Diagnoses Not on filedocumented in this encounter Care Teams Supervisor Benzene Refining Relationship Specialty Start Date End Date Cassius Alvarez MD PCP - General Internal Medicine 01/20/23 documented as of this encounter
--- OUTSIDE RECORDS SUMMARY | 2024-09-19 09:24 | XMS_ITS | Encounter Summary ---
Author Organization [facility] Address [address] [place] [address] Care Team Providers Care Telephone Assembler Name Role Correction Officer HeadKenny Morales MD Primary Care Provider Unavailab Neli [...] Date Type Department Care Team Description 01/03/2018 Release of Information Medical Records [address] [place] [id number] Abstract, Provider Social History Tobacco Use Types [...] documented as of this encounter Care Teams Telephone Assembler Relationship Specialty Start Date End Date Kenny Moraels MD PCP - General Internal Medicine 12/31/11 [...]
--- OUTSIDE RECORDS SUMMARY | 2024-09-19 09:24 | XMS_ITS | Encounter Summary ---
Author Organization [facility] Address [address] [place] [address] Care Team Providers Care Director Of Player Personnel Name Role Phone Neli Andrews MD Primary Care Provider Debora Brian Johnston PA-C Primary Care Provider Unavail able Cassius Alvarez MD Primary Care Provider Unavail able [facility], Pcp Primary Care Provider Unavailabl Cassius Heaton MD Primary Care Provider Unavail able [facility], Pcp Primary Care Provider UnavailCassius Schmitz MD Primary Care Provider Unavail able Reason for Visit * Reason Comments E-prescribe Rx Request Encounter Details Date Type Department Care Team Description 09/11/2020 Refill General Surgery - [place] [address] [facility] [address] [place] [phone] Dayana Frost MD [address] [phone] E-prescribe Rx Request Social History [...] documented as of this encounter Care Teams Director Of Player Personnel Relationship Specialty Start Date End Date Neli [...]
--- OUTSIDE RECORDS SUMMARY | 2024-09-19 09:24 | XMS_ITS | Encounter Summary ---
Author Organization [facility] Address [address] [place] [address] Care Team Providers Care Repair Electric Motor Assembler Name Role Phone Cassius Alvarez MD Primary Care Provider Unavail able Reason for Visit * Reason Onset Date Comments Advice 08/05/2023 Encounter Details Date Type Department Care Team Description 08/05/2023 Telephone OBGYN - [place] [address] [place] [address] Jc Barbour, DO Advice Social History Tobacco Use Types Packs/Day [...] Telephone Encounter - Ruthy Mason R.N. - 08/05/2023 3:07 PM EST Spoke with patient. Pt had surgery 11/28/21 Abdominal Myomectomy. Pt recently had abdominal surgery on 07/29/23 and surgeon found gauze on her uterus. They sent it pathology. Pt advised it possibly could be a product that is used in surgery such as hers to stop bleeding at the site. Pt understands an will f/u with surgeon who operated on her 07/29/23 * Telephone Encounter - Larissa Ingram - 08/05/2023 2:11 PM EST Chief Complaint/problem: Patient states she had surgery-gastric bypass 07/29/23 and they noticed a piece of gauze on her uterus PT had surgery with Farshad in the past and she has questions about it. How long has the patient had this problem? 07/29/23 Pt???s DELIVERY HELPER provider: Jc Yen, Last menstrual period (LMP) or EDC (due date): N/A documented in this encounter Plan of Treatment Not on file documented as of this encounter Visit Diagnoses Not on filedocumented in this encounter Care Teams Repair Electric Motor Assembler Relationship Specialty Start Date End Date Cassius Alvarez MD PCP - General Internal Medicine 01/20/23 documented as of this encounter
--- OUTSIDE RECORDS SUMMARY | 2024-09-19 09:24 | XMS_ITS | Encounter Summary ---
Author Organization [facility] Address [address] [place] [address] Care Team Providers Care Cash Checker Name Role Phone Neli Andrews MD Primary Care Provider Debora Brian Johnston PA-C Primary Care Provider Unavail able Cassius Alvarez MD Primary Care Provider Unavail able [facility], Pcp Primary Care Provider UnavailCassius Schmitz MD Primary Care Provider Unavail able [facility], [facility] Primary Care Provider UnavailCassius Schmitz MD Primary Care Provider Unavail able Reason for Visit * Reason Onset Date Comments injection 09/09/2020 Encounter Details Date Type Department Care Team Description 09/09/2020 Pt. Non Urgent Medical Question Physiatry - [address] [address] Blanco Sanders DO Sacroiliac dysfunction (Primary Dx); Sacroiliac pain Social History Tobacco [...] encounter Miscellaneous Notes * Telephone Encounter - Henna Gibbons L.P.N. - 09/09/2020 7:28 AM ESTFrom: Jia Valdez To: Blanco Sanders DO Sent: 09/09/2020 5:28 AM EST Subject: Follow up Hi Dr. Sanders, I'm so sorry about having to cancel our follow up the other day! I had to go to the ER with abdominal pain. They sent me home and then I had to go back on Wednesday and was admitted until Wednesday. This round of injections helped for about a month and a half. It took them a week or so to kick in, but they did. Usually I can get 2-2.5 months of relief, but I'm not sure if it's becauseit's been so cold. The cold typically makes it worse. I have been going to PT 2x a week (last week I wasn't able to go at all) and I feel like I've been able to gain some strength back. However, I dofeel like I'm ready for the next set of injections. Is there any alternatives to these injections as I would rather not have to rely on them. Thank you. -Jia documented in this encounter Plan of Treatment Scheduled Orders Name Type Priority Associated Diagnoses Orde r Schedule PHYSIATRY PROCEDURE PHYSIATRY Routine Sacroiliac dysfunction Sacroiliac pain Ordered: 09/12/2020 documented as of this encounter Visit Diagnoses Diagnosis Sacroiliac dysfunction- Primary Disorders of sacrum Sacroiliac pain Disorders of sacrum documented in this encounter Additional Health Concerns Infection Onset Date Last Indicated Resolved Time COVID-19 08/27/2021 08/28/2021 12/04/2021 9:44 AM EDT documented as of this encounter Care Teams Cash Checker Relationship Specialty Start Date End Date Neli Andrews MD PCP - General Internal Medicine 03/18/18 1 Brian Davis PA-C PCP - General Med/Peds 03/25/21 04/02/21 Cassius Alvarez MD PCP - General Internal Medicine 04/03/21 11/16/21 [facility], Pcp PCP - General Internal Medicine 11/17/21 03/02/22 Cassius Alvarez MD PCP - General Internal Medicine 03/03/22 07/08/22 [facility], Pcp PCP - General Internal Medicine 07/09/22 01/19/23 Cassius Alvarez MD PCP - General Internal Medicine 01/20/23 documented as of this encounter
--- OUTSIDE RECORDS SUMMARY | 2024-09-19 09:24 | XMS_ITS | Encounter Summary ---
Author Organization [facility] Address [address] [place] [address] Care Team Providers Care Cardiac Technician Name Role Phone Cassius Alvarez MD Primary Care Provider Unavail able [facility], Pcp Primary Care Provider Cassius Guevara MD Primary Care Provider Unavail able [facility], Pcp Primary Care Provider UnavailCassius Schmitz MD Primary Care Provider Unavail able Encounter Details Date Type Department Care Team Description 05/27/2021 Pt. Non Urgent Medical Question Gastroenterology - [address] [place] [address] Anny Vogel DScPAS Social History [...] documented as of this encounter Care Teams Cardiac Technician Relationship Specialty Start Date End Date [...]
--- OUTSIDE RECORDS SUMMARY | 2024-09-19 09:24 | XMS_ITS | Encounter Summary ---
Author Organization [facility] Address [address] [place] [address] Care Team Providers Care Resin Coater Name Role Phone Cassius Alvarez MD Primary Care Provider Unavail able [facility], Pcp Primary Care Provider Cassius Guevara MD Primary Care Provider Unavail able [facility], Pcp Primary Care Provider UnavailCassius Schmitz MD Primary Care Provider Unavail able Encounter Details Date Type Department Care Team Description 05/16/2021 Orders Only Medical Records [address] [place] [address] Martinez Peacock MD [address] [place] [address] [place] [address] Social History Tobacco Use Types Packs/Day Years [...] documented as of this encounter Care Teams Resin Coater Relationship Specialty Start Date End Date Cassius Alvarez MD PCP - General Internal Medicine 04/03/21 11/16/21 [facility], Pcp PCP - General Internal Medicine 11/17/21 03/02/22 Cassius Alvarez MD PCP - General Internal Medicine 03/03/22 07/08/22 [facility], Pcp PCP - General Internal Medicine 07/09/22 01/19/23 Cassius Alvarez MD PCP - General Internal Medicine 01/20/23 documented as of this encounter
--- OUTSIDE RECORDS SUMMARY | 2024-09-19 09:24 | XMS_ITS | Encounter Summary ---
Author Organization [facility] Address [address] [place] [address] Care Team Providers Care Petroleum Plant Operator Name Role Phone Cassius Alvarez MD Primary Care Provider Unavail able Encounter Details Date Type Department Care Team Description 08/02/2023 Pt. Non Urgent Medical Question Bariatric Surgery - [place] [address] [facility] [address] [place] [address] Dayana Frost MD [address] [facility] [address] [place] [address] Social History Tobacco Use Types [...] on filedocumented in this encounter Care Teams Petroleum Plant Operator Relationship Specialty Start Date End Date Cassius Alvarez MD PCP - General Internal Medicine 01/20/23 documented as of this encounter
--- OUTSIDE RECORDS SUMMARY | 2024-09-19 09:24 | XMS_ITS | Encounter Summary ---
Author Organization [facility] Address [address] [place] [address] Care Team Providers Care Cage Maker Name Role Phone Cassius Alvarez MD Primary Care Provider Unavail able Encounter Details Date Type Department Care Team Description 08/03/2023 Orders Only Medical Records [address] [place] [address] Dayana Frost MD [address] [place] [phone] Social History Tobacco Use Types Packs/Day [...] on filedocumented in this encounter Care Teams Cage Maker Relationship Specialty Start Date End Date Cassius Alvarez MD PCP - General Internal Medicine 01/20/23 documented as of this encounter
--- OUTSIDE RECORDS SUMMARY | 2024-09-19 09:24 | XMS_ITS | Encounter Summary ---
Author Organization [facility] Address [address] [place] [address] Care Team Providers Care Handwriting Expert Name Role Testing Shaking ShippingKenny Morales MD Primary Care Provider Unavailab Neli [...] Date Type Department Care Team Description 09/09/2017 [facility] Specialist Report Medical Records [address] [place] [address] Social History Tobacco Use Types Packs/Day Years [...] documented as of this encounter Care Teams Handwriting Expert Relationship Specialty Start Date End Date Kenny [...]
--- OUTSIDE RECORDS SUMMARY | 2024-09-19 09:24 | XMS_ITS | Encounter Summary ---
Author Organization [employer] [facility] [employer] Address [address] [place] [address] Care Team Providers Care Computer Scientist Name Role Phone Cassius Alvarez MD Primary Care Provider Unavail able Encounter Details Date Type Department Care Team Description 10/28/2023 Orders Only Medical Records [address] [place] [address] Abstract, Provider Social History Tobacco Use Types [...] Associated Diagnosis Comments OUTSIDE PLAIN FILM Routine 10/12/2023 documented in this encounter Results * OUTSIDE PLAIN FILM (10/12/2023) Dayana Frost MD RADIOLOGY documented in this encounter Visit Diagnoses Not on filedocumented in this encounter Care Teams Computer Scientist Relationship Specialty Start Date End Date Cassius Alvarez MD PCP - General Internal Medicine 01/20/23 documented as of this encounter
--- OUTSIDE RECORDS SUMMARY | 2024-09-19 09:24 | XMS_ITS | Encounter Summary ---
Author Organization [facility] Address [address] [place] [address] Care Team Providers Care Dice Table Operator Name Role Phone Cassius Alvarez MD Primary Care Provider Unavail able Encounter Details Date Type Department Care Team Description 08/18/2023 Orders Only Medical Records [address] [place] [address] George Lazaro MD [address] [place] [address] Social History Tobacco Use Types Packs/Day Years [...] Date/Time Associated Diagnosis Comments OUTSIDE LAB Routine 06/26/2022 documented in this encounter Results * OUTSIDE LAB (06/26/2022) George Lazaro MD LAB documented in this encounter Visit Diagnoses Not on filedocumented in this encounter Care Teams Dice Table Operator Relationship Specialty Start Date End Date Cassius Alvarez MD PCP - General Internal Medicine 01/20/23 documented as of this encounter
--- OUTSIDE RECORDS SUMMARY | 2024-09-19 09:24 | XMS_ITS | Encounter Summary ---
[facility] Address [address] [place] [address] Care Team Providers Care Assembler Motor Vehicle Name Role Phone Neli Andrews MD Primary Care Provider Debora Brian Johnston PA-C Primary Care Provider Unavail able Cassius Alvarez MD Primary Care Provider Unavail able [facility], Pcp Primary Care Provider UnavailCassius Schmitz MD Primary Care Provider Unavail able [facility], [facility] Primary Care Provider UnavailCassius Schmitz MD Primary Care Provider Unavail able Encounter Details Date Type Department Care Team Description 09/04/2020 [facility] Medical Records [address] [place] [id number] [place] [address] Social History Tobacco Use Types Packs/Day Years [...] as of this encounter Care Teams Assembler Motor Vehicle Relationship Specialty Start Date End Date Neli [...]
--- OUTSIDE RECORDS SUMMARY | 2024-09-19 09:24 | XMS_ITS | Encounter Summary ---
Author Organization [facility] Address [address] [place] [address] Care Team Providers Care Chief Cook Name Role Phone Cassius Alvarez MD Primary Care Provider Unavail able Encounter Details Date Type Department Care Team Description 08/12/2023 Pt. Non Urgent Medical Question Bariatric Surgery - [place] 175 [facility] [address] [place] [address] Shanti Rivero PA-C 271 [facility] [address] [place] [address] Social History Tobacco Use Types [...] Telephone Encounter - Promise Woodson M.A. - 08/13/2023 8:30 AM ESTFrom: Jia Valdez To: Timbo Rivero Sent: 08/12/2023 5:53 PM EST Subject: Nausea Hello, so I???ve realized the pain and nausea come immediately after I take a sip of water 30-45 minutes after I eat. I???ve been doing well today after I saw you and I finished dinner around 4:30-4:45 and I waited until 5:30 to take a sip of water with my meds and it came on immediately. I took a Zofran and got sick a little bit. Also I was wond ering what pharmacy you sent the carafate to? Thank you -Jia documented in this encounter Plan of Treatment Not on file documented as of this encounter Visit Diagnoses Not on filedocumented in this encounter Care Teams Chief Cook Relationship Specialty Start Date End Date Cassius Alvarez MD PCP - General Internal Medicine 01/20/23 documented as of this encounter
--- OUTSIDE RECORDS SUMMARY | 2024-09-19 09:24 | XMS_ITS | Encounter Summary ---
Author Organization [facility] Address [address] [place] [address] Care Team Providers Care Straight Line Edger Name Role Phone Cassius Alvarez MD Primary Care Provider Unavail able Encounter Details Date Type Department Care Team Description 08/23/2023 Pt. Non Urgent Medical Question Bariatric Surgery - [place] 175 [facility] [address] [place] [address] Dayana Frost MD [address] [facility] [address] [place] [address] Social History Tobacco Use Types [...] encounter Miscellaneous Notes * Telephone Encounter - Zarina Bueno - 08/24/2023 8:11 AM ESTFrom: Jia Valdez To: Mary Frost Sent: 08/23/2023 7:05 PM EST Subject: Scheduled Hello, I have my upper gi scheduled for Wednesday at 9:30. I haven???t heard from anyone to schedule the fluids though. -Jia documented in this encounter Plan of Treatment Not on file documented as of this encounter Visit Diagnoses Not on filedocumented in this encounter Care Teams Straight Line Edger Relationship Specialty Start Date End Date Cassius Alvarez MD PCP - General Internal Medicine 01/20/23 documented as of this encounter
--- OUTSIDE RECORDS SUMMARY | 2024-09-19 09:24 | XMS_ITS | Encounter Summary ---
Author Organization [facility] Address [address] [place] [address] Care Team Providers Care Facepiece Line Supervisor Name Role Phone Cassius Alvarez MD Primary Care Provider Unavail able Encounter Details Date Type Department Care Team Description 08/31/2023 [facility] Medical Records [address] [place] [address] Blanco Emanuel MD Social History Tobacco Use [...] on filedocumented in this encounter Care Teams Facepiece Line Supervisor Relationship Specialty Start Date End Date Cassius Alvarez MD PCP - General Internal Medicine 01/20/23 documented as of this encounter
--- OUTSIDE RECORDS SUMMARY | 2024-09-19 09:24 | XMS_ITS | Encounter Summary ---
Author Organization [facility] Address [address] [place] [address] Care Team Providers Care Clinical Appeals Reviewer Name Role Phone Neli Andrews MD Primary [...] Team Description 10/24/2020 Hospital Medical Records [address] [place] [address] Dayana Frost MD [address] [place] [phone] Social History Tobacco Use Types Packs/Day [...] documented as of this encounter Care Teams Clinical Appeals Reviewer Relationship Specialty Start Date End Date Neli [...]
--- OUTSIDE RECORDS SUMMARY | 2024-09-19 09:24 | XMS_ITS ---
Author Organization [facility] Address [address] [place] [address] Care Team Providers Care Filler Operator Name Role Phone MERLOS, AMOS Unavailable [phone] Encounters Encounter Location Date Provider Diagnosis [facility] [address] [place] [address] 05/12/2023 AMOS MERLOS PLAN OF TREATMENT No Information Progress Notes * SHABBIR ARENASOB: 3 (32 yo F)Acc No.[id number]:05/12/2023 Patient:??DAINA ARENAS :1990?Age:32 Y?Sex:Fe male Address:[address] [place] [address] * true * Date:??
--- OUTSIDE RECORDS SUMMARY | 2024-09-19 09:24 | XMS_ITS | Encounter Summary ---
Author Organization [facility] Address [address] [place] [address] Care Team Providers Care Audio Visual Engineer Name Role Phone Neli Andrews MD Primary Care Provider Debora Brian Johnston PA-C Primary Care Provider Unavail able Cassius Alvarez MD Primary Care Provider Unavail able [facility], Pcp Primary Care Provider UnavailCassius Schmitz MD Primary Care Provider Unavail able [facility], Pcp Primary Care Provider UnavailCassius Schmitz MD Primary Care Provider Unavail able Encounter Details Date Type Department Care Team Description 10/24/2020 Hospital Medical Records [address] [place] [address] Dayana Frost MD [address] [place] [phone] Social History Tobacco Use Types Packs/Day [...] of this encounter Care Teams Audio Visual Engineer Relationship Specialty Start Date End Date Neli Andrews MD PCP - General Internal Medicine 03/18/18 1 Brian Davis PA-C PCP - General Med/Peds 03/25/21 04/02/21 Cassius Alvarez MD PCP - General Internal Medicine 04/03/21 11/16/21 [facility], Pcp PCP - General Internal Medicine 11/17/21 03/02/22 Cassius Alvarez MD PCP - General Internal Medicine 03/03/22 07/08/22 [facility], Pcp PCP - General Internal Medicine 07/09/22 01/19/23 Cassius Alvarez MD PCP - General Internal Medicine 01/20/23 documented as of this encounter
--- OUTSIDE RECORDS SUMMARY | 2024-09-19 09:24 | XMS_ITS | Encounter Summary ---
Author Organization [facility] Address [address] [place] [address] Care Team Providers Care Batch Heat Treat Operator Name Role Phone Neli Andrews MD Primary Care Provider Debora Brian Johnston PA-C Primary Care Provider Unavail able Cassius Alvarez MD Primary Care Provider Unavail able [facility], Pcp Primary Care Provider Unavailabl Cassius Heaton MD Primary Care Provider Unavail able [facility], Pcp Primary Care Provider UnavailCassius Schmitz MD Primary Care Provider Unavail able Reason for Visit * Reason Onset Date Comments Advice 09/05/2020 Encounter Details Date Type Department Care Team Description 09/05/2020 Telephone General Surgery - [place] [address] [address] Demetrice Rodríguez, MS,RDN,LDN [address] [address] Advice Social History Tobacco Use [...] documented as of this encounter Care Teams Batch Heat Treat Operator Relationship Specialty Start Date End Date [...]
--- OUTSIDE RECORDS SUMMARY | 2024-09-19 09:24 | XMS_ITS | Encounter Summary ---
Author Organization [facility] Address [address] [place] [address] Care Team Providers Care Supervisor Diagnostic Name Role Cabinet BuilderKenny Morales MD Primary Care Provider Unavailab Neli Anderson MD Primary Care Provider Debora Brian Johnston PA-C Primary Care Provider Unavail able Cassius Alvarez MD Primary Care Provider Unavail able [facility], Pcp Primary Care Provider Unavailabl Cassius Heaton MD Primary Care Provider Unavail able [facility], Pcp Primary Care Provider Unavailabl e Cassius Alvarez MD Primary Care Provider Unavail able Reason for Visit * Reason Comments E-prescribe Rx Request Encounter Details Date Type Department Care Team Description 07/21/2016 Refill Adult Medicine [address] [address] Monika Choe PA-C E-prescribe Rx Request Social History Tobacco Use [...] encounter Miscellaneous Notes * Telephone Encounter - Fer Vernon - 07/21/2016 10:48 AM EST Patient would like script to be: E-PRESCRIBED/FAXED TO PHARMACY WHEN WAS THE PATIENT'S LAST APPOINTMENT IN ADULT MEDICINE? 05/28/16 WHEN WAS THE LAST TIME THE PATIENT SAW THEIR PCP? 02/26/16 Does patient have an upcoming appointment? Will call to book (THE MEDICATION REQUESTED IS ON THE MED LIST ABOVE) All of the medications requested were on the CURRENT MEDS list Did you check the Pharmacy information above?: YES Patient wants: 30 -day supply Is this a mail order prescription request ? NO Patients current insurance carrier is: Payor: [employer]ICARE-[employer] / Plan: [employer]ICARE[employer] / Product Type: MEDICARE [id number] documented in this encounter Plan of Treatment Not on file documented as of this encounter Visit Diagnoses Not on filedocumented in this encounter Additional Health Concerns Infection Onset Date Last Indicated Resolved Time COVID-19 08/27/2021 08/28/2021 12/04/2021 9:44 AM EDT documented as of this encounter Care Teams Supervisor Diagnostic Relationship Specialty Start Date End Date Kenny Morales MD PCP - General Internal Medicine 12/31/11 03/17/18 Neli Andrews MD PCP - General Internal Medicine 03/18/18 1 Brian Davis PA-C PCP - General Med/Peds 03/25/21 04/02/21 Cassius Alvarez MD PCP - General Internal Medicine 04/03/21 11/16/21 [facility], Pcp PCP - General Internal Medicine 11/17/21 03/02/22 Cassius Alvarez MD PCP - General Internal Medicine 03/03/22 07/08/22 [facility], Pcp PCP - General Internal Medicine 07/09/22 01/19/23 Cassius Alvarez MD PCP - General Internal Medicine 01/20/23 documented as of this encounter
--- OUTSIDE RECORDS SUMMARY | 2024-09-19 09:24 | XMS_ITS | Encounter Summary ---
Author Organization [facility] Address [address] [place] [address] Care Team Providers Care Computational Scientist Name Role Curriculum Assistant PrincipalKenny Morales MD Primary Care Provider Unavailab Neli Anderson MD Primary Care Provider Debora Brian Johnston PA-C Primary Care Provider Unavail able Cassius Alvarez MD Primary Care Provider Unavail able [facility], Pcp Primary Care Provider Unavailabl Cassius Heaton MD Primary Care Provider Unavail able [facility], Pcp Primary Care Provider Unavailabl e Cassius Alvarez MD Primary Care Provider Unavail able Encounter Details Date Type Department Care Team Description 01/29/2016 Ticket Speculator Report Medical Records [address] [place] [address] Silvino Valero MD Social History Tobacco Use [...] documented as of this encounter Care Teams Computational Scientist Relationship Specialty Start Date End Date Kenny [...] - General Internal Medicine 07/09/22 01/19/23 Cassius Alvaerz MD PCP - General Internal Medicine 01/20/23 documented as of this encounter
--- OUTSIDE RECORDS SUMMARY | 2024-09-19 09:24 | XMS_ITS | Encounter Summary ---
Author Organization [facility] Address [address] [place] [address] Care Team Providers Care Mud Temperer Name Role Phone Cassius Alvarez MD Primary Care Provider Unavail able [facility], Pcp Primary Care Provider Cassius Guevara MD Primary Care Provider Unavail able [facility], Pcp Primary Care Provider UnavailCassius Schmitz MD Primary Care Provider Unavail able Encounter Details Date Type Department Care Team Description 05/26/2021 Telephone Gastroenterology - [place] 175 [facility] [address] [place] [address] Anny Vogel DScPAS Social History [...] documented as of this encounter Care Teams Mud Temperer Relationship Specialty Start Date End Date Cassius [...]
--- OUTSIDE RECORDS SUMMARY | 2024-09-19 09:24 | XMS_ITS | Encounter Summary ---
Author Organization [facility] Address [address] [place] [address] Care Team Providers Care Clinical Rn Name Role Consumer Services AdvisorKenny Morales MD Primary Care Provider Unavailab Neli [...] Pt. Non Urgent Medical Question Medicine/Pediatrics - [address] [address] Neli Andrews MD Social History Tobacco Use [...] as of this encounter Care Teams Clinical Rn Relationship Specialty Start Date End Date Kenny Morales MD PCP - General Internal Medicine 12/31/11 03/17/18 Neli Andrews MD PCP - General Internal Medicine 03/18/18 1 Brian Davis PA-C PCP - General Med/Peds 03/25/21 04/02/21 Cassius Alvarez MD PCP - General Internal Medicine 04/03/21 11/16/21 Count Includes [facility], Pcp PCP - General Internal Medicine 11/17/21 03/02/22 Cassius Alvarez MD PCP - General Internal Medicine 03/03/22 07/08/22 [facility], Pcp PCP - General Internal Medicine 07/09/22 01/19/23 Cassius Alvarez MD PCP - General Internal Medicine 01/20/23 documented as of this encounter
--- OUTSIDE RECORDS SUMMARY | 2024-09-19 09:24 | XMS_ITS | Encounter Summary ---
Author Organization [facility] Address [address] [place] [address] Care Team Providers Care Automatic Washer Mechanic Name Role Phone Neli Andrews MD Primary Care Provider Debora Brian Johnston PA-C Primary Care Provider Unavail able Cassius Alvarez MD Primary Care Provider Unavail able [facility], Pcp Primary Care Provider UnavailCassius Schmitz MD Primary Care Provider Unavail able [facility], Pcp Primary Care Provider UnavailCassius Schmitz MD Primary Care Provider Unavail able Encounter Details Date Type Department Care Team Description 09/19/2020 Trim Stencil Maker Report Medical Records [address] [place] [address] Prashant Brady MD Social History Tobacco Use [...] documented as of this encounter Care Teams Automatic Washer Mechanic Relationship Specialty Start Date End Date [...]
--- OUTSIDE RECORDS SUMMARY | 2024-09-19 09:24 | XMS_ITS | Encounter Summary ---
Author Organization [facility] Address [address] [place] [address] Care Team Providers Care Clinical Consultant Name Role Phone Neli Andrews MD Primary Care Provider Debora Brian Johnston PA-C Primary Care Provider Unavail able Cassius Alvarez MD Primary Care Provider Unavail able [facility], Pcp Primary Care Provider UnavailCassius Schmitz MD Primary Care Provider Unavail able [facility], [facility] Primary Care Provider UnavailCassius Schmitz MD Primary Care Provider Unavail able Encounter Details Date Type Department Care Team Description 09/03/2020 [facility] Medical Records [address] [place] [id number] [place] [address] Social History Tobacco Use Types Packs/Day Years [...] as of this encounter Care Teams Clinical Consultant Relationship Specialty Start Date End Date Neli [...]
--- OUTSIDE RECORDS SUMMARY | 2024-09-19 09:24 | XMS_ITS | Encounter Summary ---
Author Organization [facility] Address [address] [place] [address] Care Team Providers Care Router Operator Name Role Phone Cassius Alvarez MD Primary Care Provider Unavail able Encounter Details Date Type Department Care Team Description 09/01/2023 [facility] Medical Records [address] [place] [address] Blanco Emanuel MD Social History Tobacco Use [...] on filedocumented in this encounter Care Teams Router Operator Relationship Specialty Start Date End Date Cassius Alvarez MD PCP - General Internal Medicine 01/20/23 documented as of this encounter
--- OUTSIDE RECORDS SUMMARY | 2024-09-19 09:24 | XMS_ITS | Encounter Summary ---
Author Organization [facility] Address [address] [place] [address] Care Team Providers Care Gear Keeper Name Role Phone Neli Andrews MD Primary Care Provider Debora Brian Johnston PA-C Primary Care Provider Unavail able Cassius Alvarez MD Primary Care Provider Unavail able [facility], Pcp Primary Care Provider UnavailCassius Schmitz MD Primary Care Provider Unavail able [facility], [facility] Primary Care Provider UnavailCassius Schmitz MD Primary Care Provider Unavail able Reason for Visit * Reason Onset Date Comments injection 06/07/2020 Encounter Details Date Type Department Care Team Description 06/07/2020 Pt. Non Urgent Medical Question Physiatry - [address] [address] Blanco Sanders DO Sacroiliac dysfunction (Primary Dx); Chronic bilateral low back pain with bilateral sciatica; Lumbar radiculitis; Osteoarthritis of spine with radiculopathy, lumbar region; Chronic bilateral low back pain without sciatica; Sacroiliac pain Social History Tobacco Use Types [...] PM EST documented as of this encounter Progress Notes * Henna Gibbons L.P.N. - 06/10/2020 8:16 AM ESTFrom: Jia Valdez To: Blanco Sanders DO Sent: 06/07/2020 7:34 PM EST Subject: Injections Hi Dr Sanders, I'm just sending you a message like you asked me to do at my follow up at the end of May/early June to get my next set of injections scheduled. Thank you. -Jia Valdez documented in this encounter Plan of Treatment Scheduled Orders Name Type Priority Associated Diagnoses Orde r Schedule PHYSIATRY PROCEDURE PHYSIATRY Routine Lumbar radiculitis Ordered: 06/10/2020 documented as of this encounter Visit Diagnoses Diagnosis Sacroiliac dysfunction- Primary Disorders of sacrum Chronic bilateral low back pain with bilateral sciatica Lumbar radiculitis Thoracic or lumbosacral neuritis or radiculitis, unspecified Osteoarthritis of spine with radiculopathy, lumbar region Chronic bilateral low back pain without sciatica Sacroiliac pain Disorders of sacrum documented in this encounter Additional Health Concerns Infection Onset Date Last Indicated Resolved Time COVID-19 08/27/2021 08/28/2021 12/04/2021 9:44 AM EDT documented as of this encounter Care Teams Gear Keeper Relationship Specialty Start Date End Date Neli [...]
--- OUTSIDE RECORDS SUMMARY | 2024-09-19 09:24 | XMS_ITS | Encounter Summary ---
Author Organization [facility] [employer] [facility] Address [address] [place] [address] Care Team Providers Care Threshing Machine Operator Name Role Phone Cassius Alvarez MD Primary Care Provider Unavail able Encounter Details Date Type Department Care Team Description 02/01/2024 Refill Bariatric Surgery - [place] 175 [facility] [address] [place] [address] Shanti Rivero PA-C 271 [facility] 110 [place] [address] Social History Tobacco Use Types [...] on filedocumented in this encounter Care Teams Threshing Machine Operator Relationship Specialty Start Date End Date Cassius Alvarez MD PCP - General Internal Medicine 01/20/23 documented as of this encounter
--- OUTSIDE RECORDS SUMMARY | 2024-09-19 09:24 | XMS_ITS | Encounter Summary ---
Author Organization [facility] Address [address] [place] [address] Care Team Providers Care Summer Camp Counselor Name Role Phone Cassius Alvarez MD Primary Care Provider Unavail able Reason for Visit * Reason Onset Date Comments Gynecological Problem 08/12/2023 Encounter Details Date Type Department Care Team Description 08/12/2023 Telephone OBGYN - [address] [address] Shannon He MD [address] [place] [address] Gynecological Problem Social History Tobacco Use Types [...] the patient had this problem? - Pt???s BLOCK PAVER provider: Shannon He MD Last menstrual period (LMP) or EDC (due date): N/A documented in this encounter Plan of Treatment Not on file documented as of this encounter Visit Diagnoses Not on filedocumented in this encounter Care Teams Summer Camp Counselor Relationship Specialty Start Date End Date Cassius Alvarez MD PCP - General Internal Medicine 01/20/23 documented as of this encounter
--- OUTSIDE RECORDS SUMMARY | 2024-09-19 09:24 | XMS_ITS | Encounter Summary ---
Author Organization [facility] Address [address] [place] [address] Care Team Providers Care Digital Imager Name Role Phone Cassius Alvarez MD Primary Care Provider Unavail able Encounter Details Date Type Department Care Team Description 2023 Orders Only Medical Records [address] [place] [address] Dayana Frost MD [address] [place] [phone] Social History Tobacco Use Types Packs/Day [...] on filedocumented in this encounter Care Teams Digital Imager Relationship Specialty Start Date End Date Cassius Alvarez MD PCP - General Internal Medicine 01/20/23 documented as of this encounter
--- OUTSIDE RECORDS SUMMARY | 2024-09-19 09:24 | XMS_ITS | Encounter Summary ---
Author Organization [facility] Address [address] [place] [address] Care Team Providers Care Road Hogger Operator Name Role Attendant Coin Operated LaundryKenny Morales MD Primary Care Provider Unavailab Neli Anderson MD Primary Care Provider Debora Brian Johnston PA-C Primary Care Provider Unavail able Cassius Alvarez MD Primary Care Provider Unavail able [facility], Pcp Primary Care Provider UnavailCassius Schmitz MD Primary Care Provider Unavail able [facility], Pcp Primary Care Provider Unavailabl Cassius Heaton MD Primary Care Provider Unavail able Encounter Details Date Type Department Care Team Description 11/30/2016 Release of Information Medical Records [address] [place] [address] Abstract, Provider Social History Tobacco Use Types [...] documented as of this encounter Care Teams Road Hogger Operator Relationship Specialty Start Date End Date [...]
--- OUTSIDE RECORDS SUMMARY | 2024-09-19 09:25 | XMS_ITS | Encounter Summary ---
Author Organization [facility] Address [address] [place] [address] Care Team Providers Care Annealing Furnace Tender Name Role Phone Neli Andrews MD Primary Care Provider Debora Brian Johnston PA-C Primary Care Provider Unavail able Cassuis Alvarez MD Primary Care Provider Unavail able [facility], Pcp Primary Care Provider UnavailCassius Schmitz MD Primary Care Provider Unavail able [facility], Pcp Primary Care Provider Cassius Guevara MD Primary Care Provider Unavail able Encounter Details Date Type Department Care Team Description 10/03/2018 B2B Account Executive Report Medical Records [address] [place] [address] Abstract, Provider Social History Tobacco Use Types [...] documented as of this encounter Care Teams Annealing Furnace Tender Relationship Specialty Start Date End Date [...]
--- OUTSIDE RECORDS SUMMARY | 2024-09-19 09:25 | XMS_ITS | Encounter Summary ---
Author Organization [facility] Address [address] [place] [address] Care Team Providers Care Oiler And Greaser Name Role Phone Neli Andrews MD Primary Care Provider Debora Brian Johnston PA-C Primary Care Provider Unavail able Cassius Alvarez MD Primary Care Provider Unavail able [facility], Pcp Primary Care Provider UnavailCassius Schmitz MD Primary Care Provider Unavail able [facility], Pcp Primary Care Provider UnavailCassius Schmitz MD Primary Care Provider Unavail able Encounter Details Date Type Department Care Team Description 01/28/2021 Bias Machine Operator Helper Report Medical Records [address] [place] [address] Prashant Brady MD Social History Tobacco Use [...] have Coronavirus / COVID-19? No / Unsure 01/31/2021 1:50 PM EDT documented as of this encounter Plan of Treatment Not on file documented as of this encounter Visit Diagnoses Not on filedocumented in this encounter Additional Health Concerns Infection Onset Date Last Indicated Resolved Time COVID-19 08/27/2021 08/28/2021 12/04/2021 9:44 AM EDT documented as of this encounter Care Teams Oiler And Greaser Relationship Specialty Start Date End Date Neli [...]
--- OUTSIDE RECORDS SUMMARY | 2024-09-19 09:25 | XMS_ITS | Encounter Summary ---
Author Organization [facility] Address [address] [place] [address] Care Team Providers Care Morphology Teacher Name Role Phone Neli Andrews MD Primary Care Provider Debora Brian Johnston PA-C Primary Care Provider Unavail able Cassius Alvarez MD Primary Care Provider Unavail able [facility], Pcp Primary Care Provider UnavailCassius Schmitz MD Primary Care Provider Unavail able [facility], Pcp Primary Care Provider Cassius Guevara MD Primary Care Provider Unavail able Encounter Details Date Type Department Care Team Description 10/18/2018 [facility] Medical Records [address] [place] [address] Social History Tobacco Use Types Packs/Day Years [...] documented as of this encounter Care Teams Morphology Teacher Relationship Specialty Start Date End Date [...]
--- OUTSIDE RECORDS SUMMARY | 2024-09-19 09:25 | XMS_ITS | Encounter Summary ---
Author Organization [facility] Address [address] [place] [address] Care Team Providers Care Hoop Riveting Machine Operator Name Role Phone Cassius Alvarez MD Primary Care Provider Unavail able [facility], Pcp Primary Care Provider Cassius Guevara MD Primary Care Provider Unavail able [facility], Pcp Primary Care Provider UnavailCassius Schmitz MD Primary Care Provider Unavail able Encounter Details Date Type Department Care Team Description 05/14/2021 Orders Only Medical Records [address] [place] [address] Martinez Peacock MD [address] [place] [address] [place] [id number] Social History Tobacco Use Types Packs/Day Years [...] documented as of this encounter Care Teams Hoop Riveting Machine Operator Relationship Specialty Start Date End Date Cassius Alvarez MD PCP - General Internal Medicine 04/03/21 11/16/21 [facility], Pcp PCP - General Internal Medicine 11/17/21 03/02/22 Cassius Alvarez MD PCP - General Internal Medicine 03/03/22 07/08/22 [facility], Pcp PCP - General Internal Medicine 07/09/22 01/19/23 Cassius Alvarez MD PCP - General Internal Medicine 01/20/23 documented as of this encounter
--- OUTSIDE RECORDS SUMMARY | 2024-09-19 09:25 | XMS_ITS | Encounter Summary ---
Author Organization [facility] Address [address] [place] [address] Care Team Providers Care Hand Candy Cutter Name Role Phone Neli Andrews MD Primary Care Provider Debora Brian Johnston PA-C Primary Care Provider Unavail able Cassius Alvarez MD Primary Care Provider Unavail able [facility], Pcp Primary Care Provider UnavailCassius Schmitz MD Primary Care Provider Unavail able [facility], Pcp Primary Care Provider UnavailCassius Schmitz MD Primary Care Provider Unavail able Encounter Details Date Type Department Care Team Description 05/06/2018 Pt. Non Urgent Medic al Question OBGYN - [place] [address] [place] [id number] Kristofer Ferrari CNM Social History Tobacco Use [...] documented as of this encounter Care Teams Hand Candy Cutter Relationship Specialty Start Date End Date Neli [...]
--- OUTSIDE RECORDS SUMMARY | 2024-09-19 09:25 | XMS_ITS | Encounter Summary ---
Author Organization [facility] Address [address] [place] [address] Care Team Providers Care Commercial Real Estate Manager Name Role Phone Neli Andrews MD Primary Care Provider Debora Brian Johnston PA-C Primary Care Provider Unavail able Cassius Alvarez MD Primary Care Provider Unavail able [facility], Pcp Primary Care Provider UnavailCassius Schmitz MD Primary Care Provider Unavail able [facility], Pcp Primary Care Provider UnavailCassius Schmitz MD Primary Care Provider Unavail able Encounter Details Date Type Department Care Team Description 10/17/2018 Sterile Supervisor Report Medical Records [address] [place] [phone] Stephanie Mason NP Social History Tobacco Use [...] documented as of this encounter Care Teams Commercial Real Estate Manager Relationship Specialty Start Date End Date Neli [...]
--- OUTSIDE RECORDS SUMMARY | 2024-09-19 09:25 | XMS_ITS | Encounter Summary ---
Author Organization [facility] Address [address] [place] [address] Care Team Providers Care Associate Sales Manager Name Role Phone Neli Andrews MD Primary Care Provider Debora Brian Johnston PA-C Primary Care Provider Unavail able Cassius Alvarez MD Primary Care Provider Unavail able [facility], Pcp Primary Care Provider Unavailabl Cassius Heaton MD Primary Care Provider Unavail able [facility], Pcp Primary Care Provider UnavailCassius Schmitz MD Primary Care Provider Unavail able Reason for Visit * Reason Onset Date Comments Abattoir Supervisor Feedback 03/20/2021 Neurology Encounter Details Date Type Department Care Team Description 03/20/2021 [facility] [address] [phone] Neli Andrews MD Abattoir Supervisor Feedback (Neurology) Social History Tobacco Use Types [...] documented as of this encounter Care Teams Associate Sales Manager Relationship Specialty Start Date End Date [...]
--- OUTSIDE RECORDS SUMMARY | 2024-09-19 09:25 | XMS_ITS | Clinical Summary ---
Author Organization [facility] Address [address] [place] [address] Care Team Providers Care Rolled Oats Mill Operator Name Role Phone Cassius Alvarez MD Primary Care Provider Unavail able Allergies Active Allergy Reactions Severity Noted Date Comments Infliximab Headaches 04/30/2021 Seasonal Allergies Runny Nose/Rhinitis Low 01/20/20 22 Along with some wheezing and dry cough- takes zyrtec. Medications Medication Sig Dispensed Refills Start Date End Date Status albuterol (PROVENTIL) (2.5 MG/3ML) 0.083% nebulizer solution Take 1 Vial by nebulization every 4 hours as needed. 0 Active mometasone (NASONEX) 50 MCG/ACT nasal spray 2 Sprays by Nasal route daily for 30 days. Replaces flonase 60 Act 5 08/25/2017 Active hydrOXYzine (ATARAX) 25 MG tablet TAKE 2 TABLETS BY MOUTH AT BEDTIME. MAY TAKE ADDITIONAL 25 MG IF AWAKE IN 1 HOUR 0 07/22/2020 Active Breo Ellipta 100-25 MCG/INH AEROSOL POWDER,BREATH ACTIVATED INHALE 1 PUFF INTO THE LUNGS DAILY 60 Each 3 02/26/2021 Active mirtazapine (REMERON) 15 MG tablet 22.5 mg. 0 06/18/2021 Active ALBUTEROL SULFATE 108 (90 Base) MCG/ACT Aero Soln Inhale 2 Puffs into the lungs every 4 hours as needed for Cough or Wheezing for up to 30 days. 8.5 g 2 09/02/2021 Active Certolizumab Pegol (Cimzia Starter Kit) 6 X 200 MG/ML Kit Inject into the skin. 1 Kit 0 10/04/2021 Active famotidine (PEPCID) 20 MG tablet Take 1 Tablet by mouth 2 times daily as needed for Heartburn. 180 Tablet 0 10/30/2021 Active Pyridoxine HCl (vitamin B-6) 25 MG tablet TAKE 1 TABLET BY MOUTH FOUR TIMES DAILY BEFORE MEALS AND AT NIGHT 120 Tablet 0 04/13/2022 Active escitalopram (LEXAPRO) 20 MG tablet Take 1 Tablet by mouth daily. 0 Active risperidone (RISPERDAL) 0.5 MG tablet Take 1 Tablet by mouth 2 times daily. 0 Active Metoprolol Succinate 25 MG Capsule ER 24 Hour Sprinkle Take 25 mg by mouth daily. 0 Active esomeprazole (NEXIUM) 40 MG capsule Take 1 Capsule by mouth every morning (before breakfast) for 360 days. 30 Capsule 11 06/21/2023 Active simethicone (MYLICON) 80 MG chewable tablet Take 1 Tablet by mouth every 6 hours as needed for Flatulence for up to 30 days. 120 Tablet 1 07/22/2023 Active acetaminophen (TYLENOL) 500 MG tablet Take 2 Tablets by mouth every 8 hours for 30 days. 180 Tablet 0 07/22/2023 Active Wheat Dextrin (Benefiber) Powder Take 4 g by mouth daily. 120 g 0 07/22/2023 Active polyethylene glycol (MiraLax) 17 g packet Take 1 Packet by mouth daily as needed for Constipation for up to 14 days. 14 Each 0 07/22/2023 Active norethindrone (MICRONOR) 0.35 MG tablet TAKE 1 TABLET BY MOUTH DAILY 84 Tablet 0 08/09/2023 Active promethazine (PHENERGAN) [address] 1 Suppository rectally every 6 hours as needed for Nausea for up to 7 days. 30 Each 0 09/22/2023 Active Vitamin A 3 MG (45522 UT) Tab Take 1 Tablet by mouth daily. 30 Tablet 2 10/05/2023 Active methocarbamol (Robaxin-750) 750 MG tablet Take 1 Tablet by mouth 3 times daily for 10 days. 30 Tablet 0 10/26/2023 Active ondansetron (Zofran) 4 MG tablet Take 1 Tablet by mouth every 8 hours as needed for Nausea for up to 7 days. 20 Tablet 0 11/30/2023 Active Ferrous Sulfate 324 (65 Fe) MG Tab EC Take 1 Tablet by mouth daily. 30 Tablet 0 01/19/2024 Active sucralfate (Carafate) 1 GM/10ML suspension Take 10 mL by mouth 4 times daily for 30 days. 1200 mL 0 03/16/2024 Active Multiple Vitamins-Minerals (Bariatric Multivitamins/Iron) Cap Take 1 Capsule by mouth daily. 30 Capsule 11 04/07/2024 Active Blood Glucose Monitoring Suppl (ONE TOUCH ULTRA 2) w/Device Kit 1 Kit by Does not apply route daily. 1 Kit 0 04/10/2024 Active glucose blood test strips (ASCENSIA AUTODISC ,ONE TOUCH ULTRA TEST ) strip One glucose script per blood sugar check twice daily 100 Each 0 04/13/2024 Active ondansetron (ZOFRAN-ODT) 4 MG disintegrating tablet DISSOLVE 1 TABLET ON THE TONGUE EVERY 8 HOURS FOR UP TO 7 DAYS NEEDED FOR NAUSEA 21 Tablet 0 05/09/2024 Active Active Problems Patient Care Coordination No te Formatting of this note is d ifferent from the original. If you or your child's teachers are noticing that Jia is demonstrating any of the following behaviors on a frequent basis, please share this with her doctor ?? not paying attention ?? daydreaming a lot ?? not being able to fall asleep easily ?? not listening ?? being easily distracted form schoolwork or play ?? forgetting things ?? in constant motion, can't sit still ?? squirming or fidgeting ?? talking too much ?? not being able to play quietly ?? acting and speaking without thinking ?? unable to wait for her turn ?? interrupting others Jia's Care Goals In order to best manage your child's ADHD it is important to have clear care goals. These goals include: ?? working with the school/teachers, other family members and adults who see the child regularly (coaches, music instructors, etc) to help manage the symptoms of ADHD ?? taking medication as directed by your child's doctor ?? meeting with a therapist regularly if this is part of your treatment plan Your Results and your Goals Your Result/Date of Completion Your Goal/How Often Wt Readings from Last 1 Encounters: 08/31/11 138 lb (62.596 kg) (69.76%) Maintain Healthy Weight Your Action Plan Continue visits with the behavioral health care provider Educational Resources Center for Disease Control (www.cdc.gov/ncbddd/adhd/) [place] [employer] (www.aap.org/healthtopics/adhd.cfm) National Resource Center for ADHD (www.gsgq6wjay.org) Children and Adults with Attention Deficit Hyperactivity Disorder (www.norma.org) [place] [facility] Access Project (www.[facility].Collecta) This care plan was created in collaboration with Jia Valdez on 08/31/2011 Problem Noted Date Dysmenorrhea 08/19/2023 Last Assessment & Plan: As noted for menorrhagia. Ibuprofen or Tylenol prn. Retained sponge post-op 08/19/2023 Last Assessment & Plan: I apologized to Jia that this happened. I counseled Jia and her mother that, while we do take this very seriously, unfortunately, a retained sponge is always a possible complication at the time of surgery. The counts are most often correct even in these situtations. She was fortunate that there was no evidence of infection or damage and that this will likely not cause any terminal operations manager sequelae. They were both reasurred. Positive GBS test 07/31/2022 Overview: Will treat in labor POTS (postural orthostatic tachycardia s yndrome) 07/07/2022 Overview: Cardiology c/s 06/02/22 - ECHO WNL, recommend hyrdration and compression stockings, f/u in Spring after delivery Elevated blood pressure reading 06/17/20 Overview: 06/17/2022 seen in [facility] ED and [facility] triage for SOB, [...] Will continue to monitor. Bladder spasms 04/22/2022 Overview: Went to [facility] 03[facility]25- discharged stable, advised to increase hydration H/O myomectomy 02/08/2022 Overview: 11/28/2021- for symptomatic uterine fibroid- not into myometrium and does not need . Dr. Barbour confirmed with [facility] History of hypertension 02/06/2022 Overview: Diastolic hypertension in 2018. States prior to bariatric surgery, was placed on Propanolol. After weight loss surgery her BP normalized and no longer on meds Gastric sleeve- 08/2019 Maternal varicella, non-immune 2 Overview: Vaccinate PP Pelvic pain 10/27/2021 Last Assessment & Plan: I discussed with [...] this plan. All questions answered. 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 Aura increases risk of stroke with use of E2. She was encouraged to consider Mirena and will consider it and return. Will continue POP for now. Bariatric surgery status 08/29/2019 Overview: Sleeve gastrectomy 08/25/2019 DDD (degenerative disc disease), lumbosa cral 08/04/2019 Class 2 obesity with body mass index (BM I) of 37.0 to 37.9 in adult 02/15/2019 Adnexal cyst 11/25/2018 Overview: 11/04/18 Presented to [facility] for abdominal pain. CT scan showed 2.7 right adnexal cyst. (records sent to scanning) Dizziness of unknown etiology 08/25/2017 Overview: Encouraged to follow up with PCP, reviewed warning signs and when to seek emergency care 06/05- pt seen by pcp and [facility], she had a full work up and states told had POTS syndrome. Reviewed increase hydration and slow position changes- will follow up with [facility] post . Awaiting results and visit notes for review Allergic rhinitis 08/25/2017 Iron deficiency anemia 12/01/2016 Overview: Has had difficulty tolerating oral iron supplementation Heme 01/25 - oral iron during the week on menses; f/u prn Last Assessment & Plan: Continue oral iron Vitamin D deficiency 12/01/2016 Leukocytosis 08/15/2015 Overview: Dr. Rodriges - 08/27 - likely reactive, repeat CBC with diff in a month, no further workup needed at this time Has persisted over years, acutely increased to 17 04/2020 GRAY (obstructive sleep apnea) 10/08/2014 Overview: 10/01/14 - 3 day EEG without epileptiform [...] her ferritin; follow-up in a few months [facility] Polysomnogram: Date 04/05/2019; Wt 247#; [...] hypoventilation by 2019 polysomnogram. Ankylosing spondylitis 03/31/2013 Overview: Has been seen at [facility], rheumatology Dr. Valero as well as Dr. Murphy, Dr. Finch, now seeing Dr Brady at [facility]; also Dr Sanders 02/05/2022 under the care of [facility] in [place]. CBC, ESR, CRP, creatinine, AST and ALT ordered at that visit. Plan is to continue with Cimzia 400 mg SC monthly. OCD (obsessive compulsive disorder) 11/10 Depression 10/21/2012 Overview: History SI- IP Admits Nephrolithiasis 01/12/2012 Overview: Noted December 2011 Last Assessment & Plan: [facility] 12/21 2 mm right ureteric stone ADHD (attention deficit hyperactivity di sorder) 07/24/2011 Asthma 07/24/2011 Anxiety 07/24/2011 Migraine with aura- occular migraine Overview: Dr Flowers Resolved Problems Problem Noted Date Resolved Date screening for streptococcus B 07/20/19 23 07/20/2022 Supervision of normal first 01/19/2022 09/18/2022 Overview: 1. [place] site: [facility] 2. Delivery site: [facility] 3. Mobile Mommas: No 4. Dating criteria: LMP confirmed by 1st trimester ultrasound 5. Blood type: O+ 6. Genetic screening: Date: 02/05 Result: Low risk male 03/10 AFP negative 6. GBS: Positive Date: 07/27/2022 7. FOB name: Arsenio Herrera 8. Plans A. Epidural or other pain management - B. Labor support identified - Arsenio Hansa. Tdap - Date:06/05/2022, Flu - Date: Declines- April 2022 in [facility] D. Breast or Bottle feed: breast E. Baby's name - F. Circumcision - 9. Hospital Course: Last Assessment & Plan: Declines flu Nausea and vomiting in 01/19/2022 09/18/2022 Overview: 06/05- much improved, still has occasional N/V using seabands and meds PRN Anxiety and depression 01/19/2022 Overview: Sees Dr. Luz Emanuel for therapy and medications. Taking Mirtazapine and therapy weekly or Bi weekly- stable, denies SI/HI 05/08- planning to cut down for breast feeding 05/2022- Might wait until June or July to cut down Mirtazapine- not cutting down for now 07/14/2022-message received from pt, cutting down Mirtazapine dose from 22.5 to 15mg and F/U with Psych on 07/28 May consider going down to 7.5mg daily. Last Assessment & Plan: Patient has excellent support system and is working closely with psychiatrist. Therapy 2x/week. Asthma affecting in first trimester 09/18/2022 History of COVID-19 09/25/2021 07/02/2022 Overview: 09/02 Intractable vomiting 05/14/2021 06/21/2021 Overview: 06/01 EGD normal HLA B27 (HLA B27 positive) 03/17/202106/21 Overview: [facility] September 2020 Obesity (BMI 30-39.9) 09/25/2019 06/30/2021 Class 1 obesity due to exces s calories with body mass index (BMI) of 34.0 to 34.9 in adult 11/17/2017 06/24/2023 Diastolic hypertension 08/29/2017 Overweight (BMI 25.0-29.9) 12/08/201203/05 Chest pain 09/15/2011 08/04/2019 Overview: probable costochondritis Immunizations Name Administration Dates Next Due COVID-19 (Pfizer) Pt Reported 10/09/2021 ,05/12/2021,2020,09/24 DTP 04/25/1993,02/23/1993,1992 Dt 10/17/1997,04/25/1994 HIB 02/23/1994, 3,02/23/1993,12/24 HPV (Gardasil) 08/08/2007,04/01/2007,01/28/2007 Hepatitis B-3 Dose (<19yrs) 04/25/1993, 3,1992 Influenza (> 6 Months) 04/27/2016,2014,04/30/2014,03/15,06/08/2011,05/14/2010,05/14/2009 ,04/19/2009 Influenza Flu (PT Reported) 05/12/2021 Influenza Vaccine-preservati ve Free-quadrivalent 4 Years 04/17/2020,03/16/2019,03/18/2018 Influenza Vaccine-quadrivale nt 4 Years Plus 06/18/2017 MMR (Ymfrags-Uqwlr-Dguudts) 10/17/1997, 4 Meningococcal (Menactra) 01/28/2007 Polio (OPV) 10/17/1997, 4,04/25/1993,12/24 TD (STATE SUPPLIED FOR ADULT S AND CHILDREN) 11/26/2020,12/20/2003 Tdap 06/05/2022,04/23/2009 Varicella 04/23/2009,03/09/1995 Family History Medical History Relation Name Comments CA Breast Aunt paternal side Paternal aunt Cancer of the Breast Aunt paternal side great aunt Crohn's Disease Father Depression/Anxiety Father kidney stones Father gallbladder di sease CA Prostate Maternal Grandfather Depression/Anxiety Maternal Grandfather ND Maternal Grandfather Stroke Maternal Grandfather Thyroid Disorder Maternal Grandmother Celiac Disease Mother Depression/Anxiety Mother Thyroid Disorder Mother gallbladder removed Mother CA Breast Other 1 gr aunt/maternal thyroid cancer Other 2 male cousin/maternal Arthritis Paternal Grandfather back pa ins Depression/Anxiety Sister AAA Negative Hx CA Colon Negative Hx Relation Name Status Comments Aunt paternal side Father Alive 01/06/1964 Maternal Grandfather Alive Maternal Grandmother Mother Alive 01/01/1964 Other 1 gr aunt/maternal Alive Other 2 male cousin/maternal Alive Paternal Grandfather Paternal Grandmother Sister Alive 12/15/1989 Social History Tobacco Use Types Packs/Day Years Used Date Smoking Tobacco: Never Smokeless Tobacco: Never Tobacco Cessation:Counseling Given: Not Answered Alcohol Use Standard Drinks/Week Comments Not Currently 0 (1 standard drink = 0.6 oz pur e alcohol) very rare Sex Assigned at Date Recorded Female 01/25/2022 8:35 PM E DT Job Start Date Occupation Industry Not on file Not on file Not on file Last Filed Vital Signs Vital Sign Reading Time Taken Comments Blood Pressure 96/76 05/04/2024 11:06 AM EDT Pulse 80 05/04/2024 11:06 AM EDT Temperature 36.7 ??C (98.1 ??F) 05/03/2024 11:49 AM E DT Respiratory Rate 17 11/17/2023 11:16 AM EDT Oxygen Saturation 98% 07/25/2021 9:31 AM EST Inhaled Oxygen Concentration - - Weight 93.2 kg (205 lb 6.4 oz) 05/04/2024 11:06 AM EDT Height 160 cm (5' 3 ) 05/04/2024 11:06 AM EDT Body Mass Index 36.38 05/04/2024 11:06 AM EDT Plan of Treatment Health Maintenance Due Date Last Done Comments PNEUMOCOCCAL VACCINE FOR HIG H RISK PATIENTS (#1) 10/16/2011 DEPRESSION SCREEN 09/18/2023 09/17/2022, , 02/06/2022 Covid-19 Vaccine (2022- 4 season) 2024 10/09/2021, 05/12/2021, 2020, Additional history exists INFLUENZA (#1) 2024 05/12/2021, 01/2020, 03/16/2019, Additional history exists BMI CHECK/ADVISE 07/12/2024 05/03/2024, , 03/15/2024, Additional history exists CERVICAL CANCER SCREENING 09/17/20252022, 04/24/2020, 12/31/2017 CHOLESTEROL SCREENING 05/21/2028 05/21/2023 , 09/13/2020, 04/03/2020, Additional history exists BASELINE HEALTH EXAM 18-39 05/08/202905/08, 01/26/2019, 03/18/2018 (Completed), Additional history exists DTAP/TDAP/TD (8 - Td or Tdap) 06/05/2032, 11/26/2020, 04/23/2009, Additional history exists Care Teams Rolled Oats Mill Operator Relationship Specialty Start Date End Date Cassius Alvarez MD PCP - General Internal Medicine 01/20/23
--- OUTSIDE RECORDS SUMMARY | 2024-09-19 09:25 | XMS_ITS | Encounter Summary ---
Author Organization [facility] Address [address] [place] [address] Care Team Providers Care Senior Account Manager Name Role Phone Kiesha Hinojosa MD Primary [...] Details Date Type Department Care Team Description 01/03/2010 Drywall Installer Report Medical Records [address] [place] [id number] Roman Pompa Social History Tobacco Use Types Packs/Day Years [...] as of this encounter Care Teams Senior Account Manager Relationship Specialty Start Date End Date Kiesha [...]
--- OUTSIDE RECORDS SUMMARY | 2024-09-19 09:25 | XMS_ITS | Encounter Summary ---
Author Organization [facility] Address [address] [place] [address] Care Team Providers Care Analytics Specialist Name Role Phone Cassius Alvarez MD Primary Care Provider Unavail able Reason for Visit * Reason Comments E-prescribe Rx Request Encounter Details Date Type Department Care Team Description 05/09/2024 Refill Bariatric Surgery - [place] [facility] [address] [place] [address] Shanti Rivero PA-C 271 [facility] [address] [place] [address] E-prescribe Rx Request Social History Tobacco [...] on filedocumented in this encounter Care Teams Analytics Specialist Relationship Specialty Start Date End Date Cassius Alvarez MD PCP - General Internal Medicine 01/20/23 documented as of this encounter
--- OUTSIDE RECORDS SUMMARY | 2024-09-19 09:25 | XMS_ITS | Encounter Summary ---
Author Organization [facility] Address [address] [place] [address] Care Team Providers Care Sewer And Cutter Finger Buff Material Name Role Phone Cassius Alvarez MD Primary Care Provider Unavail able Community, Pcp Primary Care Provider Cassius Guevara MD Primary Care Provider Unavail able [facility], Pcp Primary Care Provider Unavailabl Cassius Heaton MD Primary Care Provider Unavail able Encounter Details Date Type Department Care Team Description 05/05/2021 Television Maintenance Worker Report Medical Records [address] [place] [id number] Zane Flowers MD Social History Tobacco Use [...] documented as of this encounter Care Teams Sewer And Cutter Finger Buff Material Relationship Specialty Start Date End Date Cassius [...]
--- OUTSIDE RECORDS SUMMARY | 2024-09-19 09:25 | XMS_ITS | Encounter Summary ---
Author Organization [facility] Address [address] [place] [address] Care Team Providers Care Certified Nutritionist Name Role Phone Cassius Alvarez MD Primary Care Provider Unavail able Community, Pcp Primary Care Provider Cassius Guevara MD Primary Care Provider Unavail able Replaced By [facility], Pcp Primary Care Provider UnavailCassius Schmitz MD Primary Care Provider Unavail able Encounter Details Date Type Department Care Team Description 05/07/2021 Pt. Non Urgent Medical Question Gastroenterology - [address] [place] [address] Anny Vogel DScPAS Social History [...] as of this encounter Care Teams Certified Nutritionist Relationship Specialty Start Date End Date Cassius [...]
--- OUTSIDE RECORDS SUMMARY | 2024-09-19 09:25 | XMS_ITS | Encounter Summary ---
Author Organization [facility] Address [address] [place] [address] Care Team Providers Care Pre K Lead Teacher Name Role Phone Kiesha Hinojosa MD Primary [...] Pt. Non Urgent Medic al Question Pediatrics [address] [address] Kiesha Hinojosa MD Social History Tobacco Use [...] JIA ARENAS To: Kiesha Hinojosa Md Sent: [facility] Mar 26, 2011 9:28 AM Subject: [...] documented as of this encounter Care Teams Pre K Lead Teacher Relationship Specialty Start Date End Date Kiesha [...]
--- OUTSIDE RECORDS SUMMARY | 2024-09-19 09:25 | XMS_ITS | Encounter Summary ---
Author Organization [facility] Address [address] [place] [address] Care Team Providers Care Wolf Hunter Name Role Phone Kiesha Hinojosa MD Primary Care Provider Unavaila Kenny Sun MD Primary Care Provider Unavailab Neli Anderson MD Primary Care Provider Debora Brian Johnston PA-C Primary Care Provider Unavail able Cassius Alvarez MD Primary Care Provider Unavail able [facility], Pcp Primary Care Provider UnavailCassius Schmitz MD Primary Care Provider Unavail able [facility], Pcp Primary Care Provider Unavailabl Cassius Heatno MD Primary Care Provider Unavail able Reason for Visit * Reason Onset Date Comments Faxed Refill 09/14/2011 Encounter Details Date Type Department Care Team Description 09/14/2011 Refill Pediatrics - [address] [address] Kiesha Hinojosa MD Faxed Refill Social History Tobacco Use Types Packs/Day Years [...] * Telephone Encounter - Kenia Valerio - 09/14/2011 9:56 AM EST When was patients last PE/WCC? 05/14/10 When is patients next PE/WCC scheduled? Overdue, appointment cancelled;needs to be rescheduled Kiesha Hinojosa MD (THE MEDICATION IS NOT ON THE MED LIST AND IS IDENTIFIED BELOW): Maybe generic for another medication Med name: Kathrine Dosage: 3-0.03mg tab # of tablets: 28 Local pharmacy with request for 30 -day supply Instructions: Take one tablet by mouth daily Did you check the pharmacy information above?: YES Is this a mail order prescription request? NO Indicate how soon the patient needs the script: BY THE END OF THE DAY Patient would like script to be: FAXED TO PHARMACY Is the doctor here today?: YES Can the message wait until the doctor returns?: NO Has the pateint been told the prescription will not be filled until the end of the day? NO Payor: [facility]/Qulsar FFS Plan: [place] $15 Product Type: Qulsar [id number] documented in this encounter Plan of Treatment Not on file documented as of this encounter Visit Diagnoses Not on filedocumented in this encounter Additional Health Concerns Infection Onset Date Last Indicated Resolved Time COVID-19 08/27/2021 08/28/2021 12/04/2021 9:44 AM EDT documented as of this encounter Care Teams Wolf Hunter Relationship Specialty Start Date End Date Kiesha Hinojosa MD PCP - General 05/22/1997 12/30/11 Kenny Morales MD PCP - General Internal Medicine 12/31/11 03/17/18 Neli Andrews MD PCP - General Internal Medicine 03/18/18 1 Brian Davis PA-C PCP - General Med/Peds 03/25/21 04/02/21 Cassius Alvarez MD PCP - General Internal Medicine 04/03/21 11/16/21 [facility] PCP - General Internal Medicine 11/17/21 03/02/22 Cassius Alvarez MD PCP - General Internal Medicine 03/03/22 07/08/22 [facility], Pcp PCP - General Internal Medicine 07/09/22 01/19/23 Cassius Alvarez MD PCP - General Internal Medicine 01/20/23 documented as of this encounter
--- OUTSIDE RECORDS SUMMARY | 2024-09-19 09:25 | XMS_ITS | Encounter Summary ---
Author Organization [facility] Address [address] [place] [address] Care Team Providers Care Toy Parts Former Supervisor Name Role Phone Kiesha Hinojosa MD Primary Care Provider Unavaila Kenny Sun MD Primary Care Provider Unavailab Neli Anderson MD Primary Care Provider Debora Brian Johnston PA-C Primary Care Provider Unavail able Cassius Alvarez MD Primary Care Provider Unavail able [facility] [place], Pcp Primary Care Provider UnavailCassius Schmitz MD Primary Care Provider Unavail able [facility], Pcp Primary Care Provider UnavailCassius Schmitz MD Primary Care Provider Unavail able Encounter Details Date Type Department Care Team Description 08/29/2010 [facility] Medical Records [address] [place] [address] Abstract, Provider Social History Tobacco Use Types [...] documented as of this encounter Care Teams Toy Parts Former Supervisor Relationship Specialty Start Date End Date Kiesha [...]
--- OUTSIDE RECORDS SUMMARY | 2024-09-19 09:25 | XMS_ITS | Encounter Summary ---
Author Organization [facility] Address [address] [place] [address] Care Team Providers Care Structures Technician Name Role Phone Cassius Alvarez MD Primary Care Provider Unavail able Encounter Details Date Type Department Care Team Description 05/05/2024 Pt. Non Urgent Medical Question Bariatric Surgery - [place] [address] [facility] [address] [place] [address] Shanti Rivero PA-C [address] [facility] [address] [place] [address] Social History Tobacco Use Types [...] on filedocumented in this encounter Care Teams Structures Technician Relationship Specialty Start Date End Date Cassius Alvarez MD PCP - General Internal Medicine 01/20/23 documented as of this encounter
--- OUTSIDE RECORDS SUMMARY | 2024-09-19 09:25 | XMS_ITS | Encounter Summary ---
Author Organization [facility] Address [address] [place] [address] Care Team Providers Care Sail Lay Out Worker Name Role Phone Cassius Alvarez MD Primary Care Provider Unavail able [facility], Pcp Primary Care Provider Cassius Guevara MD Primary Care Provider Unavail able [facility], Pcp Primary Care Provider UnavailCassius Schmitz MD Primary Care Provider Unavail able Encounter Details Date Type Department Care Team Description 04/09/2021 Palliative Senior Np Report Medical Records [address] [place] [address] Blanco Sanders DO Social History Tobacco Use [...] documented as of this encounter Care Teams Sail Lay Out Worker Relationship Specialty Start Date End Date Cassius [...]
--- OUTSIDE RECORDS SUMMARY | 2024-09-19 09:25 | XMS_ITS | Encounter Summary ---
Author Organization [facility] Address [address] [place] [address] Care Team Providers Care Rfid Manager Name Role Phone Cassius Alvarez MD Primary Care Provider Unavail able Reason for Visit * Reason Comments E-prescribe Rx Request Encounter Details Date Type Department Care Team Description 05/06/2024 Refill OBGYN - [place] [address] [place] [address] Shannon He MD [address] [place] [address] E-prescribe Rx Request Social History Tobacco Use [...] encounter Miscellaneous Notes * Telephone Encounter - Laura Villagran - 05/09/2024 3:20 PM EDT WHEN WAS THE PATIENTS LAST ANNUAL EVENT MARKETING REPRESENTATIVE EXAM? Pp 2022 Does patient have an upcoming appointment? No (THE MEDICATION REQUESTED IS ON THE MED LIST ABOVE) Did you check the Pharmacy information above?: YES Indicate how soon the patient needs the script: BY THE END OF THE DAY Patient would like script to be: E-PRESCRIBED/FAXED TO PHARMACY Is the doctor here today?: YES Can the message wait until the doctor returns?: YES Has the patient been told that the prescription will not be filled until the end of the day? NO Payor: [employer] [facility] Damage [employer] MCR / Plan: [facility] / Product Type: HMO [id number] documented in this encounter Plan of Treatment Not on file documented as of this encounter Visit Diagnoses Not on filedocumented in this encounter Care Teams Rfid Manager Relationship Specialty Start Date End Date Cassius Alvarez MD PCP - General Internal Medicine 01/20/23 documented as of this encounter
--- OUTSIDE RECORDS SUMMARY | 2024-09-19 09:25 | XMS_ITS | Encounter Summary ---
Author Organization [facility] Address [address] [place] [address] Care Team Providers Care Knife Changer Name Role Doctor Of ChiropracticKenny Morales MD Primary Care Provider Unavailab Neli Anderson MD Primary Care Provider Debora Brian Johnston PA-C Primary Care Provider Unavail able Cassius Alvarez MD Primary Care Provider Unavail able [facility], Pcp Primary Care Provider Unavailabl Cassius Heaton MD Primary Care Provider Unavail able [facility], Pcp Primary Care Provider Unavailabl e Cassius Alvarez MD Primary Care Provider Unavail able Reason for Visit * Reason Onset Date Comments Medication 01/12/2012 Encounter Details Date Type Department Care Team Description 01/12/2012 Telephone Urology [address] [place] [phone] Feliciano Carney MD Medication Social History Tobacco [...] it. Please call Mom back at ext [phone] at the [facility]. documented in this encounter Plan of Treatment Not on file documented as of this encounter Visit Diagnoses Not on filedocumented in this encounter Additional Health Concerns Infection Onset Date Last Indicated Resolved Time COVID-19 08/27/2021 08/28/2021 12/04/2021 9:44 AM EDT documented as of this encounter Care Teams Knife Changer Relationship Specialty Start Date End Date Kenny [...]
--- OUTSIDE RECORDS SUMMARY | 2024-09-19 09:25 | XMS_ITS | Encounter Summary ---
Author Organization [facility] Address [address] [place] [address] Care Team Providers Care Plug Assembler Name Role Phone Brian Davis PA-C Primary Care Provider Unavail able Cassius Alvarez MD Primary Care Provider Unavail able [facility], Pcp Primary Care Provider UnavailCassius Schmitz MD Primary Care Provider Unavail able [facility], Pcp Primary Care Provider UnavailCassius Schmitz MD Primary Care Provider Unavail able Encounter Details Date Type Department Care Team Description 04/02/2021 Transfer Records Medical Records [address] [place] [address] Abstract, Provider Social History Tobacco Use Types [...] have Coronavirus / COVID-19? Unable to assess 03/25/2021 8:33 AM EDT documented as of this encounter Plan of Treatment Not on file documented as of this encounter Visit Diagnoses Not on filedocumented in this encounter Additional Health Concerns Infection Onset Date Last Indicated Resolved Time COVID-19 08/27/2021 08/28/2021 12/04/2021 9:44 AM EDT documented as of this encounter Care Teams Plug Assembler Relationship Specialty Start Date End Date Brian Davis PA-C PCP - General Med/Peds [...]
--- OUTSIDE RECORDS SUMMARY | 2024-09-19 09:25 | XMS_ITS | Encounter Summary ---
Author Organization [facility] Address [address] [place] [address] Care Team Providers Care Press Brake Operator Name Role Phone Cassius Alvarez MD Primary Care Provider Unavail able [facility], Pcp Primary Care Provider Cassius Guevara MD Primary Care Provider Unavail able [facility], Pcp Primary Care Provider UnavailCassius Schmitz MD Primary Care Provider Unavail able Encounter Details Date Type Department Care Team Description 05/13/2021 Hospital Medical Records [address] [place] [address] Gema Izaguirre Social History Tobacco Use Types [...] documented as of this encounter Care Teams Press Brake Operator Relationship Specialty Start Date End Date Cassius Alvarez MD PCP - General Internal Medicine 04/03/21 11/16/21 [facility], Pcp PCP - General Internal Medicine 11/17/21 03/02/22 Cassius Alvarez MD PCP - General Internal Medicine 03/03/22 07/08/22 [facility], Pcp PCP - General Internal Medicine 07/09/22 01/19/23 Cassius Alvarez MD PCP - General Internal Medicine 01/20/23 documented as of this encounter
--- OUTSIDE RECORDS SUMMARY | 2024-09-19 09:25 | XMS_ITS | Encounter Summary ---
Author Organization [facility] Address [address] [place] [address] Care Team Providers Care Specialty Cook Name Role Phone Neli Andrews MD Primary Care Provider Debora Brian Johnston PA-C Primary Care Provider Unavail able Cassius Alvarez MD Primary Care Provider Unavail able [facility], Pcp Primary Care Provider Unavailabl Cassius Heaton MD Primary Care Provider Unavail able [facility], Pcp Primary Care Provider UnavailCassius Schmitz MD Primary Care Provider Unavail able Reason for Visit * Reason Comments E-prescribe Rx Request Encounter Details Date Type Department Care Team Description 02/03/2021 Refill General Surgery - [address] [place] [address] Danny Thomas MD [address] [place] [address] [address] [place] [address] E-prescribe Rx Request Social History Tobacco Use [...] documented as of this encounter Care Teams Specialty Cook Relationship Specialty Start Date End Date Neli [...]
--- OUTSIDE RECORDS SUMMARY | 2024-09-19 09:26 | XMS_ITS | Encounter Summary ---
Author Organization [facility] Address [address] [place] [address] Care Team Providers Care Spotter Name Role Phone Neli Andrews MD Primary Care Provider Debora Brian Johnston PA-C Primary Care Provider Unavail able Cassius Alvarez MD Primary Care Provider Unavail able [facility], Pcp Primary Care Provider UnavailCassius Schmitz MD Primary Care Provider Unavail able [facility], Pcp Primary Care Provider UnavailCassius Schmitz MD Primary Care Provider Unavail able Encounter Details Date Type Department Care Team Description 04/07/2018 Pt. Non Urgent Medical Question Physiatry - [place] [address] [place] [address] Blanco Sanders DO Chronic bilateral low back pain without sciatica Social History Tobacco Use Types Packs/Day Years [...] Progress Notes * Nadine Wood M.A. - 04/08/2018 8:09 AM EDTFrom: Jia Valdez To: Blanco Sanders DO Sent: 04/07/2018 8:04 PM EDT Subject: Jia Valdez Hi dr Sanders. I just ran out of the pain medication. Is there a way you can refill it so I can try to stay comfortable till the injections? Also, do you think a repeat MRI would be beneficial since it's been 2 years? Thank you. documented in this encounter Plan of Treatment Not on file documented as of this encounter Visit Diagnoses Diagnosis Chronic bilateral low back pain without sciatica documented in this encounter Additional Health Concerns Infection Onset Date Last Indicated Resolved Time COVID-19 08/27/2021 08/28/2021 12/04/2021 9:44 AM EDT documented as of this encounter Care Teams Spotter Relationship Specialty Start Date End Date Neli [...]
--- OUTSIDE RECORDS SUMMARY | 2024-09-19 09:26 | XMS_ITS | Encounter Summary ---
Author Organization [facility] Address [address] [place] [address] Care Team Providers Care Beam House Inspector Name Role Phone Neli Andrews MD Primary Care Provider Debora Brian Johnston PA-C Primary Care Provider Unavail able Cassius Alvarez MD Primary Care Provider Unavail able [facility], Pcp Primary Care Provider UnavailCassius Schmitz MD Primary Care Provider Unavail able [facility], [facility] Primary Care Provider UnavailCassius Schmitz MD Primary Care Provider Unavail able Encounter Details Date Type Department Care Team Description 09/11/2018 Pt. Non Urgent Medic al Question Physiatry - [address] [address] Blanco Sanders DO Social History Tobacco Use [...] 10:09 AM ESTFrom: Jia Valdez To: Blanco Sanders DO Sent: 09/11/2018 5:28 PM EST Subject: [...] documented as of this encounter Care Teams Beam House Inspector Relationship Specialty Start Date End Date Neli [...]
--- OUTSIDE RECORDS SUMMARY | 2024-09-19 09:26 | XMS_ITS | Encounter Summary ---
Author Organization [facility] [place] [address] Care Team Providers Care Lathe Scalper Operator Name Role Phone Cassius Alvarez MD Primary Care Provider Encounter Details Date Type Department Care Team (Late st Contact Info) Description 05/08/2024 8:31 AM EDT Hospital Encounter TH HISTORIC ENCOUNTERS EASTERN CONVERSION ONLY Chelsea Singh MD [address] [place] [address] Social History Tobacco Use Types Packs/Day Years [...] single, she had 1 child who is 50-laloh-fic FAMILY HISTORY: Noncontributory Current Outpatient Medications: ??? [...] 11:30 AM EDT Office Visit Gastroenterology - [place] 175 [facility] 175 [facility] 200 [place] [phone] Anny Vogel PA 175 [facility] 200 [place] [address] 10/16/2024 8:30 AM EDT Office Visit Bariatric Surgery - [place] [address] [facility] 120 [place] [phone] Dayana Frost MD 175 [facility] 120 [place] [phone] 10/17/2024 8:00 AM EDT Appointment [facility] [address] [place] [phone] Blanco Sanders DO [address] [facility] 102 [place] [address] 11/29/2024 1:30 PM EDT Office Visit Obstetrics and Gynecology - [place] [address] [place] [address] Jewels Rogers CNM [address] [place], [place] documented as of this encounter Procedures Procedure Name Priority Date/Time Associated Diagnosis Comments ..MISCELLANEOUS REFERENCE LAB TEST 05/08/2024 documented in this encounter Results * Miscellaneous reference lab test (05/08/2024) us Provider Onbase MD LAB BLOOD ORDERABLES Final Re sult documented in this encounter Visit Diagnoses Not on filedocumented in this encounter Care Teams Lathe Scalper Operator Relationship Specialty Start Date End Date Cassius Alvarez MD PCP - General Internal Medicine 04/03/21 06/06/24 documented as of this encounter
--- OUTSIDE RECORDS SUMMARY | 2024-09-19 09:26 | XMS_ITS | Encounter Summary ---
Author Organization [facility] Address [address] [place] [address] Care Team Providers Care Director [employer] Name Role Plan ExaminerKenny Morales MD Primary Care Provider Unavailab Neli Anderson MD Primary Care Provider Debora Brian Johnston PA-C Primary Care Provider Unavail able Cassius Alvarez MD Primary Care Provider Unavail able [facility], Pcp Primary Care Provider UnavailCassius Schmitz MD Primary Care Provider Unavail able [facility], Pcp Primary Care Provider UnavailCassius Schmitz MD Primary Care Provider Unavail able Encounter Details Date Type Department Care Team Description 01/03/2018 Business Doc Medical Records [address] [place] [address] Abstract, Provider Social History Tobacco Use Types [...] as of this encounter Care Teams Director [employer] Relationship Specialty Start Date End Date Kenny [...]
--- OUTSIDE RECORDS SUMMARY | 2024-09-19 09:26 | XMS_ITS | Encounter Summary ---
Author Organization [facility] Address [address] [place] [address] Care Team Providers Care Crop Specialist Name Role Phone Cassius Alvarez MD Primary Care Provider Unavail able Reason for Visit * Reason Onset Date Comments Menstrual Problems 04/28/2024 Encounter Details Date Type Department Care Team Description 04/28/2024 Telephone OBGYN - [address] [place] [phone] Shannon He MD [address] [place] [id number] Menstrual Problems Social History Tobacco Use Types Packs/Day Years [...] * Telephone Encounter - Bouchra Perez - 04/28/2024 8:47 AM EDT Pt calling, state gabriel mense janak should have began on 04/25/24, but she has not gooten her cycle, pt states she took an home pregnanyc test and it was negative. Pt wants to know how long should she wait if no mense cycle to do another test. Pls advise documented in this encounter Plan of Treatment Not on file documented as of this encounter Visit Diagnoses Not on filedocumented in this encounter Care Teams Crop Specialist Relationship Specialty Start Date End Date Cassius Alvarez MD PCP - General Internal Medicine 01/20/23 documented as of this encounter
--- OUTSIDE RECORDS SUMMARY | 2024-09-19 09:26 | XMS_ITS | Encounter Summary ---
Author Organization [facility] Address [address] [place] [address] Care Team Providers Care Strategic Debriefing Specialist Name Role Phone Cassius Alvarez MD Primary Care Provider Unavail able Encounter Details Date Type Department Care Team Description 04/07/2024 Refill Bariatric Surgery - [place] 175 [facility] [address] [place] [address] Shanti Rivero PA-C [address] [facility] 110 [place] [address] Social History Tobacco Use Types [...] on filedocumented in this encounter Care Teams Strategic Debriefing Specialist Relationship Specialty Start Date End Date Cassius Alvarez MD PCP - General Internal Medicine 01/20/23 documented as of this encounter
--- OUTSIDE RECORDS SUMMARY | 2024-09-19 09:26 | XMS_ITS | Encounter Summary ---
Author Organization [facility] Address [address] [place] [address] Care Team Providers Care Sheet Metal Insulator Name Role Phone Cassius Alvarez MD Primary Care Provider Unavail able Encounter Details Date Type Department Care Team Description 04/06/2024 Pt. Non Urgent Medical Question Bariatric Surgery - [place] 175 [facility] [address] [place] [address] Shanti Rivero PA-C 271 [facility] [address] [place] [address] Social History Tobacco Use Types [...] on filedocumented in this encounter Care Teams Sheet Metal Insulator Relationship Specialty Start Date End Date Cassius Alvarez MD PCP - General Internal Medicine 01/20/23 documented as of this encounter
== END 2024-09-19 09:27 | disposition home or self-care (01) ==
LOC: HO.RHES 08:38
PROVIDERS: PCP Internal Medicine; Visit Provider Internal Medicine Rheumatology
DX: M45.8 Ankylosing spondylitis sacral and sacrococcygeal region (principal); M77.11 Lateral epicondylitis, right elbow
CPT/HCPCS: 99215; G2211

== ENCOUNTER → 2024-09-19 08:38 | Outpatient (BNVA) | payer OTHER, SELFPAY | PROVIDERS: PCP Internal Medicine; Visit Provider Internal Medicine Rheumatology | DX: M45.8 Ankylosing spondylitis sacral and sacrococcygeal region (principal); M77.11 Lateral epicondylitis, right elbow | CPT/HCPCS: 99212 ==

== ENCOUNTER 2024-09-21 11:53 | Outpatient (AMB) | payer OTHER, SELFPAY ==
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
--- OUTSIDE RECORDS SUMMARY | 2024-09-21 15:20 | XMS_ITS | Encounter Summary ---
Author Organization [facility] Address [address] [place] [address] Care Team Providers Care Clarifier Operator Helper Name Role Phone Cassius Alvarez MD Primary Care Provider Unavail able [facility], Pcp Primary Care Provider Cassius Guevara MD Primary Care Provider Unavail able [facility] Primary Care Provider UnavailCassius Schmitz MD Primary Care Provider Unavail able Encounter Details Date Type Department Care Team Description 10/31/2021 [facility] Medical Records [address] [place] [phone] [place] [address] Social History Tobacco Use Types Packs/Day Years [...] documented as of this encounter Care Teams Clarifier Operator Helper Relationship Specialty Start Date End Date Cassius Alvarez MD PCP - General Internal Medicine 9/23/21 5/8/22 [facility], Pcp PCP - General Internal Medicine 11/17/21 03/02/22 Cassius Alvarez MD PCP - General Internal Medicine 03/03/22 07/08/22 [facility], Pcp PCP - General Internal Medicine 07/09/22 01/19/23 Cassius Alvarez MD PCP - General Internal Medicine 01/20/23 documented as of this encounter
--- OUTSIDE RECORDS SUMMARY | 2024-09-21 15:20 | XMS_ITS | Encounter Summary ---
Author Organization [facility] Address [address] [place] [address] Care Team Providers Care Frozen Food Selector Name Role Phone Neli Andrews MD Primary Care Provider Debora Brian Johnston PA-C Primary Care Provider Unavail able Cassius Alvarez MD Primary Care Provider Unavail able [facility], Pcp Primary Care Provider UnavailCassius Schmitz MD Primary Care Provider Unavail able [facility], [facility] Primary Care Provider UnavailCassius Schmitz MD Primary Care Provider Unavail able Encounter Details Date Type Department Care Team Description 01/09/2019 Pt. Non Urgent Medic al Question Physiatry - [address] [address] Blanco Flores DO Social History Tobacco Use [...] documented as of this encounter Care Teams Frozen Food Selector Relationship Specialty Start Date End Date Neli [...]
--- OUTSIDE RECORDS SUMMARY | 2024-09-21 15:20 | XMS_ITS | Encounter Summary ---
Author Organization [facility] Address [address] [place] [address] Care Team Providers Care City Wellness Coordinator Name Role Phone Neli Andrews MD Primary Care Provider Debora Brian Johnston PA-C Primary Care Provider Unavail able Cassius Alvarez MD Primary Care Provider Unavail able [facility], Pcp Primary Care Provider Unavailabl Cassius Heaton MD Primary Care Provider Unavail able [facility], Pcp Primary Care Provider UnavailCassius Schmitz MD Primary Care Provider Unavail able Reason for Visit * Reason Onset Date Comments Pre-op Needed 11/17/2018 Encounter Details Date Type Department Care Team Description 11/17/2018 [place] [facility]/Pediatrics [address] [phone] Cassius Alvarez MD Pre-op Needed Social History [...] as of this encounter Care Teams City Wellness Coordinator Relationship Specialty Start Date End Date Neli Andrews MD PCP - General Internal Medicine 03/18/18 1 Brian Davis PA-C PCP - General Med/Peds 03/25/21 04/02/21 Cassius Alvarez MD PCP - General Internal Medicine 04/03/21 11/16/21 [facility], Pcp PCP - General Internal Medicine 11/17/21 03/02/22 Cassius Alvarez MD PCP - General Internal Medicine 03/03/22 07/08/22 [facility], Pcp PCP - General Internal Medicine 07/09/22 01/19/23 Cassius Alvarez MD PCP - General Internal Medicine 01/20/23 documented as of this encounter
--- OUTSIDE RECORDS SUMMARY | 2024-09-21 15:20 | XMS_ITS | Encounter Summary ---
Author Organization [facility] Address [address] [place] [address] Care Team Providers Care Concrete Panel Installer Name Role Phone Neli Andrews MD Primary Care Provider Debora Brian Johnston PA-C Primary Care Provider Unavail able Cassius Alvarez MD Primary Care Provider Unavail able [facility], Pcp Primary Care Provider UnavailCassius Schmitz MD Primary Care Provider Unavail able [facility], [facility] Primary Care Provider UnavailCassius Schmitz MD Primary Care Provider Unavail able Encounter Details Date Type Department Care Team Description 11/28/2018 Pt. Non Urgent Medic al Question Physiatry - [address] [address] Blanco Sanders DO Social History Tobacco Use [...] documented as of this encounter Care Teams Concrete Panel Installer Relationship Specialty Start Date End Date Neli [...]
--- OUTSIDE RECORDS SUMMARY | 2024-09-21 15:20 | XMS_ITS | Encounter Summary ---
Author Organization [facility] Address [address] [place] [address] Care Team Providers Care Coding Support Specialist Name Role Phone Cassius Alvarez MD Primary Care Provider Unavail able [facility], Pcp Primary Care Provider Cassius Guevara MD Primary Care Provider Unavail able [facility], Pcp Primary Care Provider UnavailCassius Schmitz MD Primary Care Provider Unavail able Encounter Details Date Type Department Care Team Description 09/02/2021 Orders Only Medicine/Pediatrics - [address] [phone] Brian Davis PA-C Social History Tobacco Use [...] documented as of this encounter Care Teams Coding Support Specialist Relationship Specialty Start Date End Date [...]
--- OUTSIDE RECORDS SUMMARY | 2024-09-21 15:20 | XMS_ITS | Encounter Summary ---
Author Organization [facility] Address [address] [place] [address] Care Team Providers Care Fuel Management Handler Name Role Phone Neli Andrews MD Primary Care Provider Debora Brian Johnston PA-C Primary Care Provider Unavail able Cassius Alvarez MD Primary Care Provider Unavail able [facility], Pcp Primary Care Provider UnavailCassius Schmitz MD Primary Care Provider Unavail able [facility], Pcp Primary Care Provider Cassius Guevara MD Primary Care Provider Unavail able Encounter Details Date Type Department Care Team Description 11/17/2018 Transfer Records Medical Records [address] [place] [id number] Abstract, Provider Social History Tobacco Use Types [...] documented as of this encounter Care Teams Fuel Management Handler Relationship Specialty Start Date End Date Neli [...]
--- OUTSIDE RECORDS SUMMARY | 2024-09-21 15:20 | XMS_ITS | Encounter Summary ---
Author Organization [facility] Address [address] [place] [address] Care Team Providers Care Clamp Carrier Operator Name Role Phone Neli Andrews MD Primary Care Provider Debora Brian Johnston PA-C Primary Care Provider Unavail able Cassius Alvarez MD Primary Care Provider Unavail able [facility], Pcp Primary Care Provider UnavailCassius Schmitz MD Primary Care Provider Unavail able [facility], Pcp Primary Care Provider UnavailCassius Schmitz MD Primary Care Provider Unavail able Encounter Details Date Type Department Care Team Description 12/01/2018 Orders Only General Surgery - [place] [address] [facility] [address] [place] [phone] Dayana Frost MD [address] [facility] [address] [place] [address] Social History Tobacco Use Types [...] documented as of this encounter Care Teams Clamp Carrier Operator Relationship Specialty Start Date End Date [...]
--- OUTSIDE RECORDS SUMMARY | 2024-09-21 15:21 | XMS_ITS | Encounter Summary ---
Author Organization [facility] Address [address] [place] [address] Care Team Providers Care Director Motion Picture Name Role Digital Strategy SpecialistKenny Morales MD Primary Care Provider Unavailab Neli Anderson MD Primary Care Provider Debora Brian Johnston PA-C Primary Care Provider Unavail able Cassius Alvarez MD Primary Care Provider Unavail able [facility], Pcp Primary Care Provider Unavailabl Cassius Heaton MD Primary Care Provider Unavail able [facility], Pcp Primary Care Provider Unavailabl e Cassius Alvarez MD Primary Care Provider Unavail able Reason for Referral * Specialist (Routine) - Authorized/Booked Specialty Diagnoses / Procedures Referred By Contrubi t Referred To Contact SLEEP STUDY Procedures REFERRAL TO EXTERNAL HOME SLEEP STUDY Kenny Morales MD [address] [place] [address] [place] [phone] External Sleep Referral ID Status Reason Start Date Expiration Date V isits Requested Visits Authorized SEE REVIEW 11/08/13 Authorized/ Booked 11/07/2013 02/07/2014 1 1 Reason for Visit * Reason Onset Date Comments Testing 11/06/2013 Sleep Study Encounter Details Date Type Department Care Team Description 11/06/2013 [place] [facility]/Pediatrics [address] [phone] Kenny Morales MD Testing (Sleep [...] auth has already been obtained. Auth # [id number] Effective 11/07/13-01/05/14 To be done at Sleep [...] as of this encounter Care Teams Director Motion Picture Relationship Specialty Start Date End Date Kenny Morales MD PCP - General Internal Medicine 12/31/11 03/17/18 Neli Andrews MD PCP - General Internal Medicine 03/18/18 1 Brian Davis PA-C PCP - General Med/Peds 03/25/21 04/02/21 Cassius Alvarez MD PCP - General Internal Medicine 04/03/21 11/16/21 [facility], Pcp PCP - General Internal Medicine 11/17/21 03/02/22 Cassius Alvarez MD PCP - General Internal Medicine 03/03/22 07/08/22 [facility], Pcp PCP - General Internal Medicine 07/09/22 01/19/23 Cassius Alvarez MD PCP - General Internal Medicine 01/20/23 documented as of this encounter
--- OUTSIDE RECORDS SUMMARY | 2024-09-21 15:21 | XMS_ITS | Encounter Summary ---
Author Organization [facility] Address [address] [place] [address] Care Team Providers Care Band Reamer Machine Operator Name Role Vision TherapistKenny Morales MD Primary Care Provider Unavailab Neli Anderson MD Primary Care Provider Debora Brian Johnston PA-C Primary Care Provider Unavail able Cassius Alvarez MD Primary Care Provider Unavail able [facility], Pcp Primary Care Provider Unavailabl Cassius Heaton MD Primary Care Provider Unavail able [facility], Pcp Primary Care Provider Unavailabl e Cassius Alvarez MD Primary Care Provider Unavail able Reason for Visit * Reason Onset Date Comments Advice 09/28/2012 Encounter Details Date Type Department Care Team Description 09/28/2012 Pt. Non Urgent Medical Question Medicine/Pediatrics - [address] [phone] Kenny Morales MD Diarrhea (Primary Dx) Social [...] documented as of this encounter Care Teams Band Reamer Machine Operator Relationship Specialty Start Date End [...]
--- OUTSIDE RECORDS SUMMARY | 2024-09-21 15:21 | XMS_ITS | Encounter Summary ---
Author Organization [facility] Address [address] [place] [address] Care Team Providers Care Biology Faculty Member Name Role Inspector Hot ForgingsKenny Morales MD Primary Care Provider Unavailab Neli [...] 08/08/2012 Pt. Non Urgent Medical Question Medicine/Pediatrics [address] [phone] Kenny Morales MD Social History Tobacco Use [...] documented as of this encounter Care Teams Biology Faculty Member Relationship Specialty Start Date End Date Kenny Morales MD PCP - General Internal Medicine 12/31/11 03/17/18 Neli Andrews MD PCP - General Internal Medicine 03/18/18 1 Brian Davis PA-C PCP - General Med/Peds 03/25/21 04/02/21 Cassius Alvarez MD PCP - General Internal Medicine 04/03/21 11/16/21 [facility], Pcp PCP - General Internal Medicine 11/17/21 03/02/22 Cassius Alavrez MD PCP - General Internal Medicine 03/03/22 07/08/22 [facility], Pcp PCP - General Internal Medicine 07/09/22 01/19/23 Cassius Alvarez MD PCP - General Internal Medicine 01/20/23 documented as of this encounter
--- OUTSIDE RECORDS SUMMARY | 2024-09-21 15:21 | XMS_ITS | Encounter Summary ---
Author Organization [facility] Address [address] [place] [address] Care Team Providers Care Cisco Network Architect Name Role Phone Neli Andrews MD Primary Care Provider Debora Brian Johnston PA-C Primary Care Provider Unavail able Cassius Alvarez MD Primary Care Provider Unavail able [facility], Pcp Primary Care Provider UnavailCassius Schmitz MD Primary Care Provider Unavail able [facility], Pcp Primary Care Provider UnavailCassius Schmitz MD Primary Care Provider Unavail able Encounter Details Date Type Department Care Team Description 08/17/2019 Orders Only Medical Records [address] [place] [address] Dayana Frost MD [address] [place] [phone] Social History Tobacco Use Types Packs/Day [...] documented as of this encounter Care Teams Cisco Network Architect Relationship Specialty Start Date End Date Neli [...]
--- OUTSIDE RECORDS SUMMARY | 2024-09-21 15:21 | XMS_ITS | Patient Health Record ---
Author Organization [facility] Address [address] [place] [address] REASON FOR REFERRAL No Information PLAN OF TREATMENT No Information Insurance Providers Payer Name Payer Address Payer Phone Subscriber Number Group Number Insured Name Patient Relationship to Insured Coverage Start Date Coverage End Date [employer]/Angie or Options [address] [place] [id number] DAINA ARENAS Self - patient is the insured
--- OUTSIDE RECORDS SUMMARY | 2024-09-21 15:21 | XMS_ITS | Encounter Summary ---
Author Organization [facility] Address [address] [place] [address] Care Team Providers Care Back Filler Operator Name Role Flocculator OperatorKenny Morales MD Primary Care Provider Unavailab Neli Anderson MD Primary Care Provider Debora Brian Johnston PA-C Primary Care Provider Unavail able Cassius Alvarez MD Primary Care Provider Unavail able [facility], Pcp Primary Care Provider UnavailCassius Schmitz MD Primary Care Provider Unavail able [facility], Pcp Primary Care Provider Unavailabl Cassius Heaton MD Primary Care Provider Unavail able Encounter Details Date Type Department Care Team Description 02/27/2013 Release of Information Medical Records [address] [place] [id number] Abstract, Provider Social History Tobacco Use Types [...] documented as of this encounter Care Teams Back Filler Operator Relationship Specialty Start Date End Date [...]
--- OUTSIDE RECORDS SUMMARY | 2024-09-21 15:21 | XMS_ITS | Encounter Summary ---
Author Organization [facility] Address [address] [place] [address] Care Team Providers Care Director Alumni Relations Name Role RecapperKenny Morales MD Primary Care Provider Unavailab Neli [...] Date Type Department Care Team Description 05/02/[address] Reporter Report Medical Records [address] [place] [id number] Sanjuanita Harrison Social History Tobacco Use Types [...] as of this encounter Care Teams Director Alumni Relations Relationship Specialty Start Date End Date Kenny [...]
--- OUTSIDE RECORDS SUMMARY | 2024-09-21 15:21 | XMS_ITS | Encounter Summary ---
Author Organization [facility] Address [address] [place] [address] Care Team Providers Care Equipment Mechanic Specialist Name Role Phone Neli Andrews MD Primary Care Provider Debora Brian Johnston PA-C Primary Care Provider Unavail able Cassius Alvarez MD Primary Care Provider Unavail able [facility], Pcp Primary Care Provider UnavailCassius Schmitz MD Primary Care Provider Unavail able [facility], Pcp Primary Care Provider UnavailCassius Schmitz MD Primary Care Provider Unavail able Reason for Visit * Reason Onset Date Comments REFERRAL 06/05/2019 Encounter Details Date Type Department Care Team Description 06/05/2019 [place] [facility]/Pediatrics [address] [phone] Neli Andrews MD REFERRAL Social History Tobacco [...] documented as of this encounter Care Teams Equipment Mechanic Specialist Relationship Specialty Start Date End Date [...]
--- OUTSIDE RECORDS SUMMARY | 2024-09-21 15:21 | XMS_ITS | Encounter Summary ---
Author Organization [facility] Address [address] [place] [address] Care Team Providers Care Cutter Head Sharpener Name Role Phone Cassius Alvarez MD Primary Care Provider Unavail able [facility], Pcp Primary Care Provider UnavailCassius Schmitz MD Primary Care Provider Unavail able [facility], Pcp Primary Care Provider Unavailabl Cassius Heaton MD Primary Care Provider Unavail able Reason for Visit * Reason Comments E-prescribe Rx Request Encounter Details Date Type Department Care Team Description 06/20/2021 Refill OBGYN - [place] [address] Jc Barbour DO E-prescribe Rx Request Social [...] Miscellaneous Notes * Telephone Encounter - Phoebe ashvin Bhatia - 06/23/2021 8:35 AM EST WHEN WAS THE PATIENTS LAST ANNUAL COREMAKER SUPERVISOR EXAM? 04/14/20 Does patient have an upcoming [...] / Plan: [place] / Product Type: MEDICARE [id number] documented in this encounter Plan of Treatment Not on file documented as of this encounter Visit Diagnoses Not on filedocumented in this encounter Additional Health Concerns Infection Onset Date Last Indicated Resolved Time COVID-19 08/27/2021 08/28/2021 12/04/2021 9:44 AM EDT documented as of this encounter Care Teams Cutter Head Sharpener Relationship Specialty Start Date End Date Cassius Alvarez MD PCP - General Internal Medicine 04/03/21 11/16/21 [facility], Pcp PCP - General Internal Medicine 11/17/21 03/02/22 Cassius Alvarez MD PCP - General Internal Medicine 03/03/22 07/08/22 [facility], Pcp PCP - General Internal Medicine 07/09/22 01/19/23 Cassius Alvarez MD PCP - General Internal Medicine 01/20/23 documented as of this encounter
--- OUTSIDE RECORDS SUMMARY | 2024-09-21 15:21 | XMS_ITS | Encounter Summary ---
Author Organization [facility] Address [address] [place] [address] Care Team Providers Care Mastic Sprayer Name Role Grounds Maintenance ManagerKenny Morales MD Primary Care Provider Unavailab [...] Date Type Department Care Team Description 06/19/2014 RN EMERGENCY ROOM/[facility] Report Medical Records [address] [place] [id number] Abstract, Provider Social History Tobacco Use Types [...] documented as of this encounter Care Teams Mastic Sprayer Relationship Specialty Start Date End Date Kenny [...]
--- OUTSIDE RECORDS SUMMARY | 2024-09-21 15:21 | XMS_ITS | Encounter Summary ---
Author Organization [facility] Address [address] [place] [address] Care Team Providers Care Director Funds Development Name Role Director Of AgricultureKenny Morales MD Primary Care Provider Unavailab Neli Anderson MD Primary Care Provider Debora Brian Johnston PA-C Primary Care Provider Unavail able Cassius Alvarez MD Primary Care Provider Unavail able [facility], Pcp Primary Care Provider Unavailabl Cassius Heaton MD Primary Care Provider Unavail able [facility], Pcp Primary Care Provider Unavailabl e Cassius Alvarez MD Primary Care Provider Unavail able Encounter Details Date Type Department Care Team Description 05/05/2012 Pt. Non Urgent Medic al Question Chiropractic - [address] [address] Zeferino Tineo D.C. Social History Tobacco Use [...] as of this encounter Care Teams Director Funds Development Relationship Specialty Start Date End Date Kenny [...]
--- OUTSIDE RECORDS SUMMARY | 2024-09-21 15:21 | XMS_ITS | Encounter Summary ---
Author Organization [facility] Address [address] [place] [address] Care Team Providers Care Museum Preparator Name Role Action InstallerKenny Morales MD Primary Care Provider Unavailab Neli [...] Details Date Type Department Care Team Description 04/21/2013 Supervisor Assembly Room Report Medical Records [address] [place] [id number] Kiya Small Social History Tobacco Use Types [...] documented as of this encounter Care Teams Museum Preparator Relationship Specialty Start Date End Date Kenny [...]
--- OUTSIDE RECORDS SUMMARY | 2024-09-21 15:21 | XMS_ITS | Encounter Summary ---
[facility] Organization [facility] Address [address] [place] [address] Care Team Providers Care Graphics Artist Name Role Egg And Spice MixerKenny Morales MD Primary Care Provider Unavailab Neli [...] Date Type Department Care Team Description 10/03/2014 [facility] Medical Records [address] [place] [address] Alfreda Morelos PA-C Social History Tobacco Use [...] documented as of this encounter Care Teams Graphics Artist Relationship Specialty Start Date End Date Kenny [...]
--- OUTSIDE RECORDS SUMMARY | 2024-09-21 15:21 | XMS_ITS | Encounter Summary ---
Author Organization [facility] Address [address] [place] [address] Care Team Providers Care Piano Stringer Name Role Regional Sales DirectorKenny Morales MD Primary Care Provider Unavailab Neli Anderson MD Primary Care Provider Debora Brian Johnston PA-C Primary Care Provider Unavail able Cassius Alvarez MD Primary Care Provider Unavail able [facility], Pcp Primary Care Provider Unavailabl Cassius Heaton MD Primary Care Provider Unavail able [facility], Pcp Primary Care Provider Unavailabl Cassius Heaton MD Primary Care Provider Unavail able Encounter Details Date Type Department Care Team Description 03/17/2013 Drafter Civil (Cad) Report Medical Records [address] [place] [address] Kiya Small Social History Tobacco Use Types [...] documented as of this encounter Care Teams Piano Stringer Relationship Specialty Start Date End Date Kenny [...]
--- OUTSIDE RECORDS SUMMARY | 2024-09-21 15:21 | XMS_ITS | Encounter Summary ---
Author Organization [facility] Address [address] [place] [address] Care Team Providers Care Travel Trailer Components Assembler Name Role Statistical SecretaryKenny Morales MD Primary Care Provider Unavailab Neli [...] Date Type Department Care Team Description 07/04/2014 Hand Clipper Report Medical Records [address] [place] [address] Momo Murphy Social History Tobacco Use Types [...] documented as of this encounter Care Teams Travel Trailer Components Assembler Relationship Specialty Start Date End Date [...]
--- OUTSIDE RECORDS SUMMARY | 2024-09-21 15:21 | XMS_ITS | Encounter Summary ---
Author Organization [facility] Address [address] [place] [address] Care Team Providers Care Elevator Troubleshooter Name Role Phone Cassius Alvarez MD Primary Care Provider Unavail able [facility], Pcp Primary Care Provider Cassius Guevara MD Primary Care Provider Unavail able [facility], [facility] Primary Care Provider UnavailCassius Schmitz MD Primary Care Provider Unavail able Encounter Details Date Type Department Care Team Description 06/02/2021 Orders Only Medical Records [address] [place] [address] Marylu Cisneros MD Social History Tobacco Use [...] documented as of this encounter Care Teams Elevator Troubleshooter Relationship Specialty Start Date End Date Cassius lAvarez MD PCP - General Internal Medicine 04/03/21 11/16/21 [facility], Pcp PCP - General Internal Medicine 11/17/21 03/02/22 Cassius Alvarez MD PCP - General Internal Medicine 03/03/22 07/08/22 [facility], Pcp PCP - General Internal Medicine 07/09/22 01/19/23 Cassius Alvarez MD PCP - General Internal Medicine 01/20/23 documented as of this encounter
--- OUTSIDE RECORDS SUMMARY | 2024-09-21 15:21 | XMS_ITS | Clinical Summary ---
Author Organization [facility] Address [address] [place] [address] Care Team Providers Care Shrinking Machine Operator Name Role Phone Cassius Alvarez MD Primary Care Provider [phone]- [phone] Allergies Active Allergy Reactions Criticality Noted Date [...] age to complete this topic Care Teams Shrinking Machine Operator Relationship Specialty Start Date End Date Cassius Alvarez MD [address] [place] [address] PCP - General Internal Medicine 08/16/23
--- OUTSIDE RECORDS SUMMARY | 2024-09-21 15:21 | XMS_ITS | Encounter Summary ---
[facility] Address [address] [place] [address] Care Team Providers Care Patent Counsel Name Role Phone Neli Andrews MD Primary Care Provider Debora Brian Johnston PA-C Primary Care Provider Unavail able Cassius Alvarez MD Primary Care Provider Unavail able [facility], Pcp Primary Care Provider UnavailCassius Schmitz MD Primary Care Provider Unavail able [facility], [facility] Primary Care Provider Cassius Guevara MD Primary Care Provider Unavail able Encounter Details Date Type Department Care Team Description 03/17/2019 [facility] Controlled Substance Contract Medical Records [address] [place] [id number] Abstract, Provider Social History Tobacco Use Types [...] documented as of this encounter Care Teams Patent Counsel Relationship Specialty Start Date End Date Neli [...]
--- OUTSIDE RECORDS SUMMARY | 2024-09-21 15:21 | XMS_ITS | Encounter Summary ---
Author Organization [facility] Address [address] [place] [address] Care Team Providers Care School Examiner Name Role Practice ClinicianKenny Morales MD Primary Care Provider Unavailab Neli Anderson MD Primary Care Provider Debora Brian Johnston PA-C Primary Care Provider Unavail able Cassius Alvarez MD Primary Care Provider Unavail able [facility], Pcp Primary Care Provider Unavailabl Cassius Heaton MD Primary Care Provider Unavail able [facility], Pcp Primary Care Provider Unavailabl e Cassius Alvarez MD Primary Care Provider Unavail able Encounter Details Date Type Department Care Team Description 07/20/2013 Enterprise Applications Manager Report Medical Records [address] [place] [id number] Silvino Valero MD Social History Tobacco Use [...] documented as of this encounter Care Teams School Examiner Relationship Specialty Start Date End Date Kenny [...]
--- OUTSIDE RECORDS SUMMARY | 2024-09-21 15:21 | XMS_ITS | Encounter Summary ---
[facility] Address [address] [place] [address] Care Team Providers Care Christmas Tree Grower Name Role Phone Neli Andrews MD Primary Care Provider Debora Brian Johnston PA-C Primary Care Provider Unavail able Cassius Alvarez MD Primary Care Provider Unavail able [facility], Pcp Primary Care Provider UnavailCassius Schmitz MD Primary Care Provider Unavail able [facility], Pcp Primary Care Provider UnavailCassius Schmitz MD Primary Care Provider Unavail able Encounter Details Date Type Department Care Team Description 06/27/2019 [facility] Medical Records [address] [place] [address] Abstract, Provider Social History Tobacco Use Types [...] documented as of this encounter Care Teams Christmas Tree Grower Relationship Specialty Start Date End Date Neli [...]
--- OUTSIDE RECORDS SUMMARY | 2024-09-21 15:21 | XMS_ITS | Encounter Summary ---
Author Organization [facility] Address [address] [place] [address] Care Team Providers Care Stay Cutter Name Role Phone Neli Andrews MD [...] Date Type Department Care Team Description 09/12/2019 Hospital Medical Records [address] [place] [address] Dayana Frost MD [address] [place] [phone] Social History Tobacco Use Types Packs/Day [...] documented as of this encounter Care Teams Stay Cutter Relationship Specialty Start Date End Date [...]
--- OUTSIDE RECORDS SUMMARY | 2024-09-21 15:21 | XMS_ITS | Encounter Summary ---
Author Organization [facility] Address [address] [place] [address] Care Team Providers Care Railroad Track Mechanic Name Role Phone Neli Andrews MD Primary Care Provider Debora Brian Johnston PA-C Primary Care Provider Unavail able Cassius Alvarez MD Primary Care Provider Unavail able [facility], Pcp Primary Care Provider UnavailCassius Schmitz MD Primary Care Provider Unavail able [facility], [facility] Primary Care Provider UnavailCassius Schmitz MD Primary Care Provider Unavail able Encounter Details Date Type Department Care Team Description 03/12/2020 Pt. Non Urgent Medic al Question Physiatry - [address] [address] Blanco Flores DO Social History Tobacco Use [...] documented as of this encounter Care Teams Railroad Track Mechanic Relationship Specialty Start Date End Date Neli Andrews MD PCP - General Internal Medicine 03/18/18 1 Brian Davis PA-C PCP - General Med/Peds 03/25/21 04/02/21 Casisus Alvarez MD PCP - General Internal Medicine 04/03/21 11/16/21 [facility], Pcp PCP - General Internal Medicine 11/17/21 03/02/22 Cassius Alvarez MD PCP - General Internal Medicine 03/03/22 07/08/22 [facility], Pcp PCP - General Internal Medicine 07/09/22 01/19/23 Cassius Alvarez MD PCP - General Internal Medicine 01/20/23 documented as of this encounter
--- OUTSIDE RECORDS SUMMARY | 2024-09-21 15:21 | XMS_ITS | Encounter Summary ---
Author Organization [facility] Address [address] [place] [address] Care Team Providers Care Shock Absorber Installer Name Role Nurse WoundKenny Morales MD Primary Care Provider Unavailab Neli Anderson MD Primary Care Provider Debora Brian Johnston PA-C Primary Care Provider Unavail able Cassius Alvarez MD Primary Care Provider Unavail able [facility], Pcp Primary Care Provider UnavailCassius Schmitz MD Primary Care Provider Unavail able [facility], Pcp Primary Care Provider Unavailabl Cassius Heaton MD Primary Care Provider Unavail able Encounter Details Date Type Department Care Team Description 05/18/2014 Release of Information Medical Records [address] [place] [address] Abstract, Provider Social History Tobacco Use Types [...] documented as of this encounter Care Teams Shock Absorber Installer Relationship Specialty Start Date End Date [...]
--- OUTSIDE RECORDS SUMMARY | 2024-09-21 15:21 | XMS_ITS | Encounter Summary ---
Author Organization [facility] Address [address] [place] [address] Care Team Providers Care Industrial Design Engineer Name Role Automotive General Sales ManagerKenny Morales MD Primary Care Provider Unavailab Neli Anderson MD Primary Care Provider Debora Brian Johnston PA-C Primary Care Provider Unavail able Cassius Alvarez MD Primary Care Provider Unavail able [facility], Pcp Primary Care Provider Unavailabl Cassius Heaton MD Primary Care Provider Unavail able [facility], Pcp Primary Care Provider Unavailabl e Cassius Alvarez MD Primary Care Provider Unavail able Encounter Details Date Type Department Care Team Description 11/02/2013 Manager Research And Development Report Medical Records [address] [place] [address] Silvino Valero MD Social History Tobacco Use [...] documented as of this encounter Care Teams Industrial Design Engineer Relationship Specialty Start Date End [...]
--- OUTSIDE RECORDS SUMMARY | 2024-09-21 15:21 | XMS_ITS | Encounter Summary ---
Author [facility] Address [address] [place] [address] Care Team Providers Care Animal Breeder Name Role Photographer AerialKenny Morales MD Primary Care Provider Unavailab Neli Anderson MD Primary Care Provider Debora Brian Johnston PA-C Primary Care Provider Unavail able Cassius Alvarez MD Primary Care Provider Unavail able [facility], Pcp Primary Care Provider UnavailCassius Schmitz MD Primary Care Provider Unavail able [facility], Pcp Primary Care Provider UnavailCassius Schmitz MD Primary Care Provider Unavail able Encounter Details Date Type Department Care Team Description 10/01/2014 [facility] Medical Records [address] [place] [address] Alfreda Morelos PA-C Social History Tobacco Use [...] documented as of this encounter Care Teams Animal Breeder Relationship Specialty Start Date End Date Kenny [...]
--- OUTSIDE RECORDS SUMMARY | 2024-09-21 15:21 | XMS_ITS | Encounter Summary ---
[facility] Address [address] [place] [address] Care Team Providers Care Shift Lab Technician Name Role Phone Neli Andrews MD Primary Care Provider Debora Brian Johnston PA-C Primary Care Provider Unavail able Cassius Alvarez MD Primary Care Provider Unavail able [facility], Pcp Primary Care Provider UnavailCassius Schmitz MD Primary Care Provider Unavail able [facility], Pcp Primary Care Provider UnavailCassius Schmitz MD Primary Care Provider Unavail able Encounter Details Date Type Department Care Team Description 09/01/2019 [facility] Medical Records [address] [place] [id number] Mela Rutledge PA-C Social History Tobacco Use [...] documented as of this encounter Care Teams Shift Lab Technician Relationship Specialty Start Date End Date [...]
--- OUTSIDE RECORDS SUMMARY | 2024-09-21 15:21 | XMS_ITS | Encounter Summary ---
[facility] Address [address] [place] [address] Care Team Providers Care Metal Cans Supervisor Name Role Phone Neli Andrews MD Primary [...] Date Type Department Care Team Description 08/28/2019 [facility] Medical Records [address] [place] [address] Mela Rutledge PA-C Social History Tobacco Use [...] documented as of this encounter Care Teams Metal Cans Supervisor Relationship Specialty Start Date End Date Neli [...]
--- OUTSIDE RECORDS SUMMARY | 2024-09-21 15:21 | XMS_ITS | Encounter Summary ---
[facility] Address [address] [place] [address] Care Team Providers Care Road Freight Brake Coupler Name Role Tire And Tube RepairerKenny Tom MD Primary Care Provider Unavailab Neli [...] Care Team Description 07/13/2014 Telephone Medicine/Pediatrics - [address] [id number] Kenny Tom MD Call From Pharmacy Social [...] Who is patients PCP?: DR TOM Payor: [facility]/[employer] F[employer] / Plan: [employer] [place] $15 / Product Type: HMO [id number] documented in this encounter Plan of Treatment Not on file documented as of this encounter Visit Diagnoses Not on filedocumented in this encounter Additional Health Concerns Infection Onset Date Last Indicated Resolved Time COVID-19 08/27/2021 08/28/2021 12/04/2021 9:44 AM EDT documented as of this encounter Care Teams Road Freight Brake Coupler Relationship Specialty Start Date End Date Kenny [...]
--- OUTSIDE RECORDS SUMMARY | 2024-09-21 15:21 | XMS_ITS | Clinical Summary ---
Author Organization [facility] Address [address] [place] [address] Phone Care Team Providers Care Beer Runner Name Role Phone Cassius Alvarez MD Primary Care Provider [phone] Allergies Active Allergy Reactions Criticality Noted Date [...] reading 06/17/2022 Overview (04/26/2024): 06/17/2022 seen in [facility] ED and [facility] triage for SOB, neb [...] Bladder spasms 04/22/2022 Overview (04/26/2024): Went to [facility] on 03/25- discharged stable, advised to [...] cyst 11/25/2018 Overview (04/26/2024): 11/04/18 Presented to [facility] ED for abdominal pain. CT scan showed [...] deficiency 12/01/2016 Leukocytosis 08/15/2015 Overview (04/26/2024): Dr. Rodrgies - 08/27 - likely reactive, repeat CBC [...] her ferritin; follow-up in a few months [facility] Polysomnogram: Date 04/05/2019; Wt 247#; [...] 03/31/2013 Overview (04/26/2024): Has been seen at [facility], rheumatology Dr. Valero as well as Dr. Murphy, Dr. Finch, now seeing Dr Brady at [facility]; also Dr Sanders 02/05/2022 under the care of [facility] in [place]. CBC, ESR, CRP, creatinine, AST and ALT ordered at that visit. Plan is to continue with Cimzia 400 mg SC monthly. OCD (obsessive compulsive disorder) 11/30/2012 Depression 10/21/2012 Overview (04/26/2024): History SI- IP Admits Nephrolithiasis 01/12/2012 Overview (04/26/2024): Noted December 2011 Last Assessment & Plan: [facility] 12/21 2 mm right ureteric stone ADHD (attention deficit hyperactivity disorder) 07/24/2011 Anxiety 07/24/2011 Asthma 07/24/2011 Migraine with aura 07/24/2011 Overview (04/26/2024): Dr Flowers Comments Yes Encounters Date Type Department Care Team Description 08/21/2024 Lab Requisition [facility] - Main Lab [address] [facility] [place] [phone] Donald Wall PA Hydronephrosis with renal and ureteral calculous obstruction 08/14/2024 8:30 AM EST Office Visit Bariatric Surgery - [place] [address] [phone] Dayana Frost MD S/P bariatric surgery (Primary Dx); Hx of hypoglycemia; Dumping syndrome; Obesity, Class II, BMI 35-39.9 08/01/2024 7:52 AM EST - 08/01/2024 11:59 PM EST Hospital Encounter [facility] Nuclear Medicine [address] [place] [phone] S/P bariatric surgery Discharge Disposition: Home or Self Care 07/26/2024 10:30 AM EST Office Visit Obstetrics and Gynecology [address] [phone] Shannon He MD Breakthrough bleeding on control pills (Primary Dx); Paratubal cyst 07/19/2024 Telephone Bariatric Surgery [address] [phone] Danny Thomas MD 07/19/2024 Telephone Bariatric Surgery - [address] [phone] Dayana Frost MD 07/17/2024 Telephone Obstetrics and Gynecology - [address] [phone] Shannon He MD Request For Order(s) 07/16/2024 Telephone Gastroenterology - [address] [phone] Anny Vogel PA 07/13/2024 8:30 AM EST Office Visit Bariatric Surgery [address] [phone] Dayana Frost MD S/P bariatric surgery (Primary Dx); Class 2 severe obesity with serious comorbidity and body mass index (BMI) of 35.0 to 35.9 in adult, unspecified obesity type ([facility]CC); Nausea; Gastroesophageal reflux disease, unspecified whether esophagitis present from Last 3 Months Immunizations Name Administration Dates Next Due DTP 04/25/1993,02/23/1993,1992 [id number] (Pentacel) 2mo to less than 5yo 02/23/1994,04/25/1993,02/23/1993,12/24 [...] 11:30 AM EDT Office Visit Gastroenterology - [place] 175 [facility] 175 [facility] [address] [place] [phone] Anny Vogel PA 175 [facility] 200 [place], [place] [phone] 10/16/2024 8:30 AM EDT Office Visit Bariatric Surgery - [place] 175 [facility] 120 [place] [phone] Dayana Frost MD 175 [facility] 120 [place] [phone] 10/17/2024 8:00 AM EDT Appointment [facility] Pain Management [address] [place] [phone] Blanco Sanders DO 3640 [facility] 102 [place] [address] 11/29/2024 1:30 PM EDT Office Visit Obstetrics and Gynecology - [place] [address] [place] [phone] Jewels Rogers, [facility] [address] [place] [address] Health Maintenance Due Date Last Done Comments [...] LAB CHEMISTRY METHOD 08/21/2024 2:11 PM EST [facility] Blood Venous blood specimen / Unknown 08/21/2024 10:22 AM EST 08/21/2024 1:17 PM EST us Donald LINDO LAB BLOOD ORDERABLES Final Res ult [facility] [address] [place] [address], [place] [phone] * NM Hepatobiliary System Imaging (08/01/2024 10:23 [...] Signed Date: 08/06/2024 10:00 ET Workstation ID: [id number] Transcribed By: Self Edit Transcribed Date: 08/06/2024 [...] Dictated Date: 08/06/2024 09:52 ET Assigned Physician: Galinod Varghese Reviewed and Electronically Signed By: Galindo Varghese Signed Date: 08/06/2024 10:00 ET Workstation ID: [id number] Transcribed By: Self Edit Transcribed Date: 08/06/2024 09:52 ET Dayana Frost MD IMG NM PROCEDURES Final Result * (ABNORMAL) Lipid panel (05/21/2023) [facility] LDL/HDL Ratio 4 0 - 4 Triglycerides 190(A) 0 - 150 mg/dL Cholesterol 196 0 - 200 mg/dL HDL 53 >=40 mg/dL LDL Cholesterol 105(A) 0 - 100 mg/dL Blood Venous blood specimen / Unknown Historical Provider LAB BLOOD ORDERABLES Nicole l Result * Cervical Cancer Screening: HPV (09/28/2022) Pathologist [facility] Cervical Cancer Screening: HPV abstracted, negative Historical Provider HEALTH MAINTENANCE Final Result * HIV Screening (01/27/2022) HIV Screening abstracted Historical Provider HEALTH MAINTENANCE Final Result * Hm Hepatitis C Screening (01/27/2022) HM Hepatitis C Screening abstracted us Historical Provider HEALTH MAINTENANCE Final Result from Last 3 Months or Most Recently Relevant to Health Maintenance Insurance [facility]IC[facility] Member Subscriber Plan / Payer (Ef fective 2022-Present) Name:Jia Valdez Relation to Subscriber:Self Name:Jia Valdez Payer ID:[id number] Group ID:[id number] Type:Not on file Address: [address] [facility] [place] [address] MEDICARE Care Teams Beer Runner Relationship Specialty Start Date End Date Cassius Alvarez MD [address] [place] [address] PCP - General Internal Medicine 06/07/24
--- OUTSIDE RECORDS SUMMARY | 2024-09-21 15:22 | XMS_ITS | Encounter Summary ---
Author Organization [facility] Address [address] [place] [address] Care Team Providers Care Family Services Assistant Name Role Slash TrimmerKenny Morales MD Primary Care Provider Unavailab Neli [...] Details Date Type Department Care Team Description 05/09/2015 Flame Annealing Machine Operator Report Medical Records [address] [place] [phone] [place] [address] [employer], [address] [phone] Social History Tobacco Use Types [...] documented as of this encounter Care Teams Family Services Assistant Relationship Specialty Start Date End Date Kenny [...]
--- OUTSIDE RECORDS SUMMARY | 2024-09-21 15:22 | XMS_ITS | Encounter Summary ---
Author Organization [facility] Address [address] [place] [address] Care Team Providers Care Supervisor Cemetery Workers Name Role Phone Neli Andrews MD Primary Care Provider Debora Brian Johnston PA-C Primary Care Provider Unavail able Cassius Alvarez MD Primary Care Provider Unavail able [facility], Pcp Primary Care Provider Unavailabl Cassius Heaton MD Primary Care Provider Unavail able [facility], Pcp Primary Care Provider UnavailCassius Schmitz MD Primary Care Provider Unavail able Reason for Visit * Reason Onset Date Comments Advice 09/05/2020 Encounter Details Date Type Department Care Team Description 09/05/2020 Telephone General Surgery - [place] [address] [phone] Demetrice Rodríguez, MS,RDN,LDN [address] [phone] Advice Social History Tobacco Use [...] as of this encounter Care Teams Supervisor Cemetery Workers Relationship Specialty Start Date End Date Neli [...]
--- OUTSIDE RECORDS SUMMARY | 2024-09-21 15:22 | XMS_ITS | Encounter Summary ---
Author Organization [facility] Address [address] [place] [address] Care Team Providers Care Certified Pedorthotist Name Role Phone Cassius Alvarez MD Primary Care Provider Unavail able Encounter Details Date Type Department Care Team Description 03/09/2024 Pt. Non Urgent Medical Question Bariatric Surgery - [place] 175 [facility] [address] [place] [address] Shanti Rivero PA-C [address] [facility] [address] [place] [address] Social History Tobacco Use Types [...] on filedocumented in this encounter Care Teams Certified Pedorthotist Relationship Specialty Start Date End Date Cassius Alvarez MD PCP - General Internal Medicine 01/20/23 documented as of this encounter
--- OUTSIDE RECORDS SUMMARY | 2024-09-21 15:22 | XMS_ITS | Encounter Summary ---
Author Organization [facility] Address [address] [place] [address] Care Team Providers Care Electrician Machine Shop Name Role Phone Cassius Alvarez MD Primary Care Provider Unavail able [facility], Pcp Primary Care Provider Unavailabl e Cassius Alvarez MD Primary Care Provider Unavail able Encounter Details Date Type Department Care Team Description 07/08/2022 Telephone OBGYN - [place] [address] [place], [place] [phone] [employer], [facility] [address] [place], [place] [phone] Social History Tobacco Use Types Packs/Day Years [...] encounter Miscellaneous Notes * Telephone Encounter - Assistant Passenger Locomotive EngineerSanchez Hughes - 07/08/2022 4:18 PM EST ----- Message from Jia Valdez sent at 07/07/2022 5:14 PM EST ----- Regarding: Psychiatry/PCP update Contact: Daniela! So my psychiatrist and I are decreasing the mirtazapine from 22.5mg to 15mg starting tonight. I see her again on July 28 and if all is going well, we???ll be decreasing to 7.5mg. She [id number] is still a good dose. I called [...] on filedocumented in this encounter Care Teams Electrician Machine Shop Relationship Specialty Start Date End Date Cassius Alvarez MD PCP - General Internal Medicine 03/03/22 07/08/22 Community, Pcp PCP - General Internal Medicine 07/09/22 01/19/23 Cassius Alvarez MD PCP - General Internal Medicine 01/20/23 documented as of this encounter
--- OUTSIDE RECORDS SUMMARY | 2024-09-21 15:22 | XMS_ITS | Encounter Summary ---
Author Organization [facility] Address [address] [place] [address] Care Team Providers Care Lens Gauger Name Role Phone Neli Andrews MD [...] Details Date Type Department Care Team Description 10/04/2020 Caption Writer Report Medical Records [address] [place] [address] Prashant Brady MD Social History Tobacco Use [...] documented as of this encounter Care Teams Lens Gauger Relationship Specialty Start Date End Date [...]
--- OUTSIDE RECORDS SUMMARY | 2024-09-21 15:22 | XMS_ITS | Encounter Summary ---
Author Organization [facility] Address [address] [place] [address] Care Team Providers Care Office Worker Name Role Inside Sales Territory ManagerKenny Morales MD Primary Care Provider Unavailab Neli Anderson MD Primary Care Provider Debora Brian Johnston PA-C Primary Care Provider Unavail able Cassius Alvarez MD Primary Care Provider Unavail able [facility], Pcp Primary Care Provider Unavailabl Cassius Heaton MD Primary Care Provider Unavail able [facility], Pcp Primary Care Provider Unavailabl e Cassius Alvarez MD Primary Care Provider Unavail able Encounter Details Date Type Department Care Team Description 10/24/2015 Nickel Operator Report Medical Records [address] [place] [address] Joselito Ramos Social History Tobacco Use Types Packs/Day Years [...] documented as of this encounter Care Teams Office Worker Relationship Specialty Start Date End Date [...]
--- OUTSIDE RECORDS SUMMARY | 2024-09-21 15:22 | XMS_ITS | Encounter Summary ---
Author Organization [facility] Address [address] [place] [address] Care Team Providers Care Senior Mobile Solutions Architect Name Role Phone Community, Pcp Primary Care Provider Cassius Guevara MD Primary Care Provider Unavail able [facility], Pcp Primary Care Provider Cassius Guevara MD Primary Care Provider Unavail able Encounter Details Date Type Department Care Team Description 12/04/2021 Pt. Non Urgent Medic al Question OBGYN - [place] [address] [place] [address] Jc Barbour, Social History Tobacco Use Types [...] as of this encounter Care Teams Senior Mobile Solutions Architect Relationship Specialty Start Date End Date Community, Pcp PCP - General Internal Medicine 5/9/22 8/22/22 Cassius Alvarez MD PCP - General Internal Medicine 03/03/22 07/08/22 [facility], Pcp PCP - General Internal Medicine 07/09/22 01/19/23 Cassius Alvarez MD PCP - General Internal Medicine 01/20/23 documented as of this encounter
--- OUTSIDE RECORDS SUMMARY | 2024-09-21 15:22 | XMS_ITS | Encounter Summary ---
Author Organization [facility] Address [address] [place] [address] Care Team Providers Care Business Support Name Role Phone Neli Andrews MD Primary Care Provider Debora Brian Johnston PA-C Primary Care Provider Unavail able Cassius Alvarez MD Primary Care Provider Unavail able [facility], Pcp Primary Care Provider UnavailCassius Schmitz MD Primary Care Provider Unavail able [facility], Pcp Primary Care Provider UnavailCassius Schmitz MD Primary Care Provider Unavail able Encounter Details Date Type Department Care Team Description 09/05/2020 [facility] Medical Records [address] [place] [address] Marylu Cisneros MD Social History Tobacco Use [...] as of this encounter Care Teams Business Support Relationship Specialty Start Date End Date Neli [...]
--- OUTSIDE RECORDS SUMMARY | 2024-09-21 15:22 | XMS_ITS | Encounter Summary ---
Author Organization [facility] Address [address] [place] [address] Care Team Providers Care Hotel Services Sales Representative Name Role Phone Community, Pcp Primary Care Provider Cassius Guevara MD Primary Care Provider Unavail able Community, Pcp Primary Care Provider Cassius Guevara MD Primary Care Provider Unavail able Encounter Details Date Type Department Care Team Description 02/02/2022 Transfer Records Medical Records [address] [place] [address] Social History Tobacco Use Types Packs/Day Years [...] filedocumented in this encounter Care Teams Hotel Services Sales Representative Relationship Specialty Start Date End Date Community, Pcp PCP - General Internal Medicine 11/17/21 03/02/22 Cassius Alvarez MD PCP - General Internal Medicine 03/03/22 07/08/22 Community, Pcp PCP - General Internal Medicine 07/09/22 01/19/23 Cassius Alvarez MD PCP - General Internal Medicine 01/20/23 documented as of this encounter
--- OUTSIDE RECORDS SUMMARY | 2024-09-21 15:22 | XMS_ITS | Encounter Summary ---
Author Organization [facility] Address [address] [place] [address] Care Team Providers Care Equipment Coordinator Name Role Passenger Car Upholsterer ApprenticeKenny Morales MD Primary Care Provider Unavailab Neli [...] Date Type Department Care Team Description 02/08/2015 Language Assistant Report Medical Records [address] [place] [phone] [place] [address] [employer], [address] [address] Social History Tobacco Use Types [...] as of this encounter Care Teams Equipment Coordinator Relationship Specialty Start Date End Date Kenny [...]
--- OUTSIDE RECORDS SUMMARY | 2024-09-21 15:22 | XMS_ITS | Encounter Summary ---
Author Organization [facility] Address [address] [place] [address] Care Team Providers Care Refrigerator Assembler Name Role Field Marketing DirectorKenny Morales MD Primary Care Provider Unavailab Neli Anderson MD Primary Care Provider Debora Brian Johnston PA-C Primary Care Provider Unavail able Cassius Alvarez MD Primary Care Provider Unavail able [facility], Pcp Primary Care Provider UnavailCassius Schmitz MD Primary Care Provider Unavail able [facility], Pcp Primary Care Provider UnavailCassius Schmitz MD Primary Care Provider Unavail able Encounter Details Date Type Department Care Team Description 09/02/2015 Manager Bridge Report Medical Records [address] [place] [address] Social History Tobacco Use Types Packs/Day Years [...] as of this encounter Care Teams Refrigerator Assembler Relationship Specialty Start Date End Date [...]
--- OUTSIDE RECORDS SUMMARY | 2024-09-21 15:22 | XMS_ITS | Encounter Summary ---
Author Organization [facility] Address [address] [place] [address] Care Team Providers Care Fleet Dispatch Manager Name Role Phone Community, Pcp Primary Care Provider Cassius Guevara MD Primary Care Provider Unavail able Community, Pcp Primary Care Provider Cassius Guevara MD Primary Care Provider Unavail able Reason for Visit * Reason Onset Date Comments 12/12/2021 Encounter Details Date Type Department Care Team Description 12/12/2021 Telephone OBGYN - [place] [address] [place] [address] Shannon He MD [address] [place] [address] [phone] Social History Tobacco Use Types Packs/Day Years [...] 10:00 AM EDT Letter was faxed to [facility]. -KM * Telephone Encounter - Phoebe Bhatia - 12/12/2021 9:08 AM EDT [facility] [phone] - fax [phone] Pt cracked a tooth and is in [...] on filedocumented in this encounter Care Teams Fleet Dispatch Manager Relationship Specialty Start Date End Date Community, Pcp PCP - General Internal Medicine 11/17/21 03/02/22 Cassius Alvarez MD PCP - General Internal Medicine 03/03/22 07/08/22 Community, Pcp PCP - General Internal Medicine 07/09/22 01/19/23 Cassius Alvarez MD PCP - General Internal Medicine 01/20/23 documented as of this encounter
--- OUTSIDE RECORDS SUMMARY | 2024-09-21 15:22 | XMS_ITS | Encounter Summary ---
Author Organization [facility] Address [address] [place] [address] Care Team Providers Care Ambulance Paramedic Name Role Phone Community, Pcp Primary Care Provider Cassius Guevara MD Primary Care Provider Unavail able Community, Pcp Primary Care Provider Cassius Guevara MD Primary Care Provider Unavail able Encounter Details Date Type Department Care Team Description 12/22/2021 Pt. Non Urgent Medic al Question OBN - [address] [address] Jc Barbour, Social History Tobacco Use Types [...] on filedocumented in this encounter Care Teams Ambulance Paramedic Relationship Specialty Start Date End Date Community, Pcp PCP - General Internal Medicine 11/17/21 03/02/22 Cassius Alvarez MD PCP - General Internal Medicine 03/03/22 07/08/22 Community, Pcp PCP - General Internal Medicine 07/09/22 01/19/23 Cassius Alvarez MD PCP - General Internal Medicine 01/20/23 documented as of this encounter
--- OUTSIDE RECORDS SUMMARY | 2024-09-21 15:22 | XMS_ITS | Encounter Summary ---
Author Organization [facility] Address [address] [place] [address] Care Team Providers Care Estimator Binding Name Role Robotic Welding OperatorKenny Morales MD Primary Care Provider Unavailab Neli Anderson MD Primary Care Provider Debora Brian Johnston PA-C Primary Care Provider Unavail able Cassius Alvarez MD Primary Care Provider Unavail able [facility], Pcp Primary Care Provider Unavailabl Cassius Heaton MD Primary Care Provider Unavail able [facility], Pcp Primary Care Provider Unavailabl e Cassius Alvarez MD Primary Care Provider Unavail able Encounter Details Date Type Department Care Team Description 01/18/2015 Conference Services Coordinator Report Medical Records [address] [place] [address] Karen Contreras MD Social History Tobacco Use [...] documented as of this encounter Care Teams Estimator Binding Relationship Specialty Start Date End Date Kenny [...]
--- OUTSIDE RECORDS SUMMARY | 2024-09-21 15:22 | XMS_ITS ---
Author Organization [facility] Address [address] [place] [address] Care Team Providers Care Double End Trimmer Name Role Phone MERLOS, AMOS Unavailable [phone] Encounters Encounter Location Date Provider Diagnosis [facility] [address] [place] [address] 05/12/2023 AMOS MERLOS PLAN OF TREATMENT No Information Progress Notes * SHABBIR ARENASOB: 3 (32 yo F)Acc No.[id number]:05/12/2023 Patient:??DAINA ARENAS :1990?Age:32 Y?Sex:Fe male Address:[address] [place] [address] * true * Date:??
--- OUTSIDE RECORDS SUMMARY | 2024-09-21 15:22 | XMS_ITS | Encounter Summary ---
Author Organization [facility] Address [address] [place] [address] Care Team Providers Care Life Sciences Instructor Name Role Phone Neli Andrews MD Primary Care Provider Debora Brian Johnston PA-C Primary Care Provider Unavail able Cassius Alvarez MD Primary Care Provider Unavail able [facility], Pcp Primary Care Provider UnavailCassius Schmitz MD Primary Care Provider Unavail able [facility], Pcp Primary Care Provider UnavailCassius Schmitz MD Primary Care Provider Unavail able Encounter Details Date Type Department Care Team Description 09/18/2019 [facility] Medical Records [address] [place] [address] Gema Izaguirre Social History Tobacco Use Types [...] documented as of this encounter Care Teams Life Sciences Instructor Relationship Specialty Start Date End Date [...]
--- OUTSIDE RECORDS SUMMARY | 2024-09-21 15:22 | XMS_ITS | Encounter Summary ---
Author Organization [facility] Address [address] [place] [address] Care Team Providers Care Human Resource Advisor Name Role E Business SpecialistKenny Morales MD Primary Care Provider Unavailab Neli Anderson MD Primary Care Provider Debora Brian Johnston PA-C Primary Care Provider Unavail able Cassius Alvarez MD Primary Care Provider Unavail able [facility], Pcp Primary Care Provider Unavailabl Cassius Heaton MD Primary Care Provider Unavail able [facility], Pcp Primary Care Provider Unavailabl Cassius Heaton MD Primary Care Provider Unavail able Encounter Details Date Type Department Care Team Description 06/10/2015 Nurse Practical Report Medical Records [address] [place] [address] Ana Laura Pepper NP Social History Tobacco [...] documented as of this encounter Care Teams Human Resource Advisor Relationship Specialty Start Date End Date Kenny [...]
--- OUTSIDE RECORDS SUMMARY | 2024-09-21 15:22 | XMS_ITS | Encounter Summary ---
Author Organization [facility] Address [address] [place] [address] Care Team Providers Care Category Director Name Role Probation OfficerKenny Morales MD Primary Care Provider Unavailab Neli Anderson MD Primary Care Provider Debora Brian oJhnston PA-C Primary Care Provider Unavail able Cassius Alvarez MD Primary Care Provider Unavail able [facility], Pcp Primary Care Provider Unavailabl Cassius Heaton MD Primary Care Provider Unavail able [facility], Pcp Primary Care Provider Unavailabl e Cassius Alvarez MD Primary Care Provider Unavail able Encounter Details Date Type Department Care Team Description 08/13/2015 Industrial Organizational Psychologist Report Medical Records [address] [place] [id number] Silvino Valero MD Social History Tobacco Use [...] documented as of this encounter Care Teams Category Director Relationship Specialty Start Date End Date [...]
--- OUTSIDE RECORDS SUMMARY | 2024-09-21 15:22 | XMS_ITS | Encounter Summary ---
Author Organization [facility] Address [address] [place] [address] Care Team Providers Care Spray Gun Repairer Helper Name Role Sandblast Or Shotblast Equipment TenderKenny Morales MD Primary Care Provider Unavailab Neli Anderson MD Primary Care Provider Debora Brian Johnston PA-C Primary Care Provider Unavail able Cassius Alvarez MD Primary Care Provider Unavail able [facility], Pcp Primary Care Provider Unavailabl Cassius Heaton MD Primary Care Provider Unavail able [facility], Pcp Primary Care Provider Unavailabl e Cassius Alvarez MD Primary Care Provider Unavail able Encounter Details Date Type Department Care Team Description 11/06/2015 Shop Mechanic Report Medical Records [address] [place] [id number] Karen Contreras MD Social History Tobacco Use [...] documented as of this encounter Care Teams Spray Gun Repairer Helper Relationship Specialty Start Date End Date [...]
--- OUTSIDE RECORDS SUMMARY | 2024-09-21 15:22 | XMS_ITS | Encounter Summary ---
Author Organization [facility] Address [address] [place] [address] Care Team Providers Care Field Sales Representative Name Role Phone Cassius Alvarez MD Primary Care Provider Unavail able Encounter Details Date Type Department Care Team Description 02/04/2023 Pt. Non Urgent Medic al Question OBGYN - [place] [address] [place] [address] Jc Barbour DO Social History Tobacco Use [...] on filedocumented in this encounter Care Teams Field Sales Representative Relationship Specialty Start Date End Date Cassius Alvarez MD PCP - General Internal Medicine 01/20/23 documented as of this encounter
--- OUTSIDE RECORDS SUMMARY | 2024-09-21 15:22 | XMS_ITS | Encounter Summary ---
[facility] Address [address] [place] [address] Care Team Providers Care Epic Application Coordinator Name Role Phone Cassius Alvarez MD Primary Care Provider Unavail able [facility], Pcp Primary Care Provider Unavailabl e Cassius Alvarez MD Primary Care Provider Unavail able Reason for Visit * Reason Comments E-prescribe Rx Request Encounter Details Date Type Department Care Team Description 04/12/2022 Refill OBGYN - [place] [address] [place] [address] Jc Barbour DO E-prescribe Rx Request Social [...] EDT WHEN WAS THE PATIENTS LAST ANNUAL PASSENGER CAR INSPECTOR EXAM? 02/06/22 IP Does patient have an [...] end of the day? NO Payor: [facility] / Plan: [facility] / Product Type: HMO [id number] documented in this encounter Plan of Treatment Not on file documented as of this encounter Visit Diagnoses Not on filedocumented in this encounter Care Teams Epic Application Coordinator Relationship Specialty Start Date End Date Cassius Alvarez MD PCP - General Internal Medicine 03/03/22 07/08/22 [facility] Pcp PCP - General Internal Medicine 07/09/22 01/19/23 Cassius Alvarez MD PCP - General Internal Medicine 01/20/23 documented as of this encounter
--- OUTSIDE RECORDS SUMMARY | 2024-09-21 15:22 | XMS_ITS | Encounter Summary ---
Author Organization [facility] Address [address] [place] [address] Care Team Providers Care Clinical Supervisor Name Role Phone Neli Andrews MD Primary Care Provider Debora Brian Johnston PA-C Primary Care Provider Unavail able Cassius Alvarez MD Primary Care Provider Unavail able [facility], Pcp Primary Care Provider UnavailCassius Schmitz MD Primary Care Provider Unavail able [facility] Primary Care Provider UnavailCassius Schmitz MD Primary Care Provider Unavail able Encounter Details Date Type Department Care Team Description 09/04/2020 [facility] Medical Records [address] [place] [id number] [place] [address] Social History Tobacco Use Types Packs/Day Years [...] as of this encounter Care Teams Clinical Supervisor Relationship Specialty Start Date End Date [...]
--- OUTSIDE RECORDS SUMMARY | 2024-09-21 15:22 | XMS_ITS | Encounter Summary ---
[facility] Address [address] [place] [address] Care Team Providers Care Marine Pipe Welder Name Role Phone [facility], Pcp Primary Care Provider Cassius Guevara MD Primary Care Provider Unavail able [facility], Pcp Primary Care Provider Cassius Guevara MD Primary Care Provider Unavail able Encounter Details Date Type Department Care Team Description 02/05/2022 Orders Only Ultrasound - [address] [address] Jewels Rogers, ANA [address] [place] [address] Encounter for supervision of normal first in first trimester (Primary Dx) Social History Tobacco Use Types [...] documented as of this encounter Results * PANORAMA (02/05/2022 3:31 PM EDT) PANORAMA SEE SEPARATE REPORT 02/05/2022 3:33 PM EDT [facility] Comment: Specimen sent to Reference Lab. ??See report sent under separate cover 02/05/2022 3:31 PM EDT 02/05/2022 3:32 PM EDT Narrative [facility] - 02/05/2022 3:33 PM EDT Release to patient->Immediate Jewels Rogers CNM LAB [facility] documented in this encounter Visit Diagnoses Diagnosis Encounter for supervision of normal first in first trimester- Primary Supervision of normal first Encounter for supervision of normal first in first trimester Supervision of normal first documented in this encounter Care Teams Marine Pipe Welder Relationship Specialty Start Date End Date Community, Pcp PCP - General Internal Medicine 11/17/21 03/02/22 Cassius Alvarez MD PCP - General Internal Medicine 03/03/22 07/08/22 [facility], Pcp PCP - General Internal Medicine 07/09/22 01/19/23 Cassius Alvarez MD PCP - General Internal Medicine 01/20/23 documented as of this encounter
--- OUTSIDE RECORDS SUMMARY | 2024-09-21 15:22 | XMS_ITS | Encounter Summary ---
[facility] [address] [place] [address] Care Team Providers Care Taker Away Name Role Phone [facility], Pcp Primary Care Provider Cassius Guevara MD Primary Care Provider Unavail able [facility], Pcp Primary Care Provider Cassius Guevara MD Primary Care Provider Unavail able Encounter Details Date Type Department Care Team Description 02/16/2022 Pt. Non Urgent Medical Question OBGYN - [place] [address] [place] [address] Jewels Rogers, CN [address] [place] [address] Social History Tobacco Use Types Packs/Day Years [...] on filedocumented in this encounter Care Teams Taker Away Relationship Specialty Start Date End Date Community, Pcp PCP - General Internal Medicine 11/17/21 03/02/22 Cassius Alvarez MD PCP - General Internal Medicine 03/03/22 07/08/22 [facility], Pcp PCP - General Internal Medicine 07/09/22 01/19/23 Cassius Alvarez MD PCP - General Internal Medicine 01/20/23 documented as of this encounter
--- OUTSIDE RECORDS SUMMARY | 2024-09-21 15:22 | XMS_ITS | Encounter Summary ---
Author Organization [facility] Address [address] [place] [address] Care Team Providers Care Casing Puller Name Role Phone Cassius Alvarez MD Primary Care Provider Unavail able [facility], Pcp Primary Care Provider Unavailabl e Cassius Alvarez MD Primary Care Provider Unavail able Encounter Details Date Type Department Care Team Description 06/02/2022 Pt. Non Urgent Medical Question Bariatric Surgery - [place] [address] [facility] [address] [place] [address] Dayana Frost MD [address] [facility] [address] [place] [address] Social History Tobacco Use Types [...] on Wednesday) but I went to the opticianry teacher this morning and my echocardiogram was normal, [...] on filedocumented in this encounter Care Teams Casing Puller Relationship Specialty Start Date End Date Cassius Alvarez MD PCP - General Internal Medicine 03/03/22 07/08/22 [facility], Pcp PCP - General Internal Medicine 07/09/22 01/19/23 Cassius Alvarez MD PCP - General Internal Medicine 01/20/23 documented as of this encounter
--- OUTSIDE RECORDS SUMMARY | 2024-09-21 15:22 | XMS_ITS | Encounter Summary ---
[facility] Address [address] [place] [address] Care Team Providers Care Physical Meteorologist Name Role Phone Community, Pcp Primary Care Provider Cassius Guevara MD Primary Care Provider Unavail able [facility], Pcp Primary Care Provider Cassius Guevara MD Primary Care Provider Unavail able Encounter Details Date Type Department Care Team Description 02/23/2022 Pt. Non Urgent Medic al Question OBGYN - [place] [address] [place] [phone] Jc Barbour, Social History Tobacco Use Types [...] on filedocumented in this encounter Care Teams Physical Meteorologist Relationship Specialty Start Date End Date Community, Pcp PCP - General Internal Medicine 11/17/21 03/02/22 Cassius Alvarez MD PCP - General Internal Medicine 03/03/22 07/08/22 [facility], Pcp PCP - General Internal Medicine 07/09/22 01/19/23 Cassius Alvarez MD PCP - General Internal Medicine 01/20/23 documented as of this encounter
--- OUTSIDE RECORDS SUMMARY | 2024-09-21 15:22 | XMS_ITS | Encounter Summary ---
Author Organization [facility] Address [address] [place] [address] Care Team Providers Care Air Conditioner Installer Helper Name Role Phone [facility], Pcp Primary Care Provider Cassius Guevara MD Primary Care Provider Unavail able [facility], Pcp Primary Care Provider Cassius Guevara MD Primary Care Provider Unavail able Encounter Details Date Type Department Care Team Description 12/09/2021 Orders Only OBGYN - [place] [address] [place] [address] Shannon He MD [address] [place] [address] [phone] with uncertain dates, antepartum (Primary Dx); S/P [...] status documented in this encounter Care Teams Air Conditioner Installer Helper Relationship Specialty Start Date End Date Community, Pcp PCP - General Internal Medicine 11/17/21 03/02/22 Cassius Alvarez MD PCP - General Internal Medicine 03/03/22 07/08/22 [facility], Pcp PCP - General Internal Medicine 07/09/22 01/19/23 Cassius Alvarez MD PCP - General Internal Medicine 01/20/23 documented as of this encounter
--- OUTSIDE RECORDS SUMMARY | 2024-09-21 15:22 | XMS_ITS | Encounter Summary ---
Author Organization [facility] Address [address] [place] [address] Care Team Providers Care Service Desk Manager Name Role Phone Cassius Alvarez MD Primary Care Provider Unavail able Encounter Details Date Type Department Care Team Description 05/07/2023 Pt. Non Urgent Medical Question Bariatric Surgery - [place] [address] [facility] [address] [place] [address] Dayana Frost MD [address] [facility] [address] [place] [address] Social History Tobacco Use Types [...] suspected to have Coronavirus/COVID-19? No / Unsure 04/28/2023 2:14 PM EDT documented as of this encounter Plan of Treatment Not on file documented as of this encounter Visit Diagnoses Not on filedocumented in this encounter Care Teams Service Desk Manager Relationship Specialty Start Date End Date Cassius Alvarez MD PCP - General Internal Medicine 01/20/23 documented as of this encounter
--- OUTSIDE RECORDS SUMMARY | 2024-09-21 15:22 | XMS_ITS | Encounter Summary ---
Author Organization [facility] Address [address] [place] [address] Care Team Providers Care Certified Surgical Tech/First Assistant Name Role Phone Cassius Alvarez MD Primary Care Provider Unavail able Encounter Details Date Type Department Care Team Description 08/18/2023 Orders Only Medical Records [address] [place] [address] George Lazaro MD [address] [place] [address] Social History Tobacco Use Types Packs/Day Years [...] filedocumented in this encounter Care Teams Certified Surgical Tech/First Assistant Relationship Specialty Start Date End Date Cassius Alvarez MD PCP - General Internal Medicine 01/20/23 documented as of this encounter
--- OUTSIDE RECORDS SUMMARY | 2024-09-21 15:22 | XMS_ITS | Encounter Summary ---
Author Organization [facility] Address [address] [place] [address] Care Team Providers Care Naval Architect Name Role Phone Community, Pcp Primary Care Provider Unavailabl e Cassius Alvarez MD Primary Care Provider Unavail able Reason for Visit * Reason Onset Date Comments 08/03/2022 PERSONNEL Encounter Details Date Type Department Care Team Description 08/03/2022 Telephone OBGYN - [address] [address] Jc Barbour DO (PERSONNEL) Social [...] on filedocumented in this encounter Care Teams Naval Architect Relationship Specialty Start Date End Date Community, Pcp PCP - General Internal Medicine 07/09/22 01/19/23 Cassius Alvarez MD PCP - General Internal Medicine 01/20/23 documented as of this encounter
--- OUTSIDE RECORDS SUMMARY | 2024-09-21 15:22 | XMS_ITS | Encounter Summary ---
Author Organization [facility] Address [address] [place] [address] Care Team Providers Care International Sourcing Manager Name Role Phone Cassius Alvarez MD Primary Care Provider Unavail able [facility], Pcp Primary Care Provider Unavailabl e Cassius Alvarez MD Primary Care Provider Unavail able Encounter Details Date Type Department Care Team Description 05/18/2022 Refill OBGYN - [place] [address] [place] [address] Jc Barbour, DO Social History Tobacco Use [...] on filedocumented in this encounter Care Teams International Sourcing Manager Relationship Specialty Start Date End Date Cassius Alvarez MD PCP - General Internal Medicine 03/03/22 07/08/22 [facility], Pcp PCP - General Internal Medicine 07/09/22 01/19/23 Cassius Alvarez MD PCP - General Internal Medicine 01/20/23 documented as of this encounter
--- OUTSIDE RECORDS SUMMARY | 2024-09-21 15:22 | XMS_ITS | Encounter Summary ---
Author [facility] Address [address] [place] [address] Care Team Providers Care Poultry Inseminator Name Role Phone Cassius Alvarez MD Primary Care Provider Unavail able Encounter Details Date Type Department Care Team Description 2023 Orders Only Medical Records [address] [place] [address] Dayana Frost MD [address] [place] [phone] Social History Tobacco Use Types Packs/Day [...] on filedocumented in this encounter Care Teams Poultry Inseminator Relationship Specialty Start Date End Date Cassius Alvarez MD PCP - General Internal Medicine 01/20/23 documented as of this encounter
--- OUTSIDE RECORDS SUMMARY | 2024-09-21 15:22 | XMS_ITS | Encounter Summary ---
Author Organization [facility] Address [address] [place] [address] Care Team Providers Care Certified Personal Finance Counselor Name Role Phone Neli Andrews MD Primary Care Provider Debora Brian Johnston PA-C Primary Care Provider Unavail able Cassius Alvarez MD Primary Care Provider Unavail able [facility], Pcp Primary Care Provider UnavailCassius Schmitz MD Primary Care Provider Unavail able [facility], Pcp Primary Care Provider UnavailCassius Schmitz MD Primary Care Provider Unavail able Encounter Details Date Type Department Care Team Description 09/13/2019 Orders Only Medical Records [address] [place] [address] Dayana Frost MD [address] [place] [phone] Social History Tobacco Use Types Packs/Day [...] as of this encounter Care Teams Certified Personal Finance Counselor Relationship Specialty Start Date End Date [...]
--- OUTSIDE RECORDS SUMMARY | 2024-09-21 15:22 | XMS_ITS | Encounter Summary ---
Author [facility] Address [address] [place] [address] Care Team Providers Care Shade Hanger Name Role Phone Neli Andrews MD Primary [...] Date Type Department Care Team Description 09/19/2020 Dispatcher Motor Vehicle Report Medical Records [address] [place] [address] Prashant Brady MD Social History Tobacco Use [...] documented as of this encounter Care Teams Shade Hanger Relationship Specialty Start Date End Date Neli [...]
--- OUTSIDE RECORDS SUMMARY | 2024-09-21 15:22 | XMS_ITS | Encounter Summary ---
[facility] Address [address] [place] [address] Care Team Providers Care Booster Plant Operator Name Role Associate Marketing ManagerKenny Morales MD Primary Care Provider [...] Pt. Non Urgent Medical Question Chiropractic - [place] [address] [place] [address] [employer] D.C. Social History Tobacco Use [...] documented as of this encounter Care Teams Booster Plant Operator Relationship Specialty Start Date End [...]
--- OUTSIDE RECORDS SUMMARY | 2024-09-21 15:22 | XMS_ITS | Encounter Summary ---
[facility] Address [address] [place] [address] Care Team Providers Care Garage Worker Name Role Phone Neli Andrews MD [...] Date Type Department Care Team Description 05/21/2020 Drainlayer Report Medical Records [address] [place] [address] Chelsea Singh MD Social History Tobacco Use [...] documented as of this encounter Care Teams Garage Worker Relationship Specialty Start Date End Date [...]
--- OUTSIDE RECORDS SUMMARY | 2024-09-21 15:22 | XMS_ITS | Encounter Summary ---
Author Organization [facility] Address [address] [place] [address] Care Team Providers Care Pump Tender Name Role Phone Cassius Alvarez MD Primary Care Provider Unavail able [facility], Pcp Primary Care Provider Cassius Guevara MD Primary Care Provider Unavail able [facility] Primary Care Provider UnavailCassius Schmitz MD Primary Care Provider Unavail able Encounter Details Date Type Department Care Team Description 11/14/2021 Pt. Non Urgent Medic al Question OBGYN - [address] [phone] Jc Barbour DO Social History [...] documented as of this encounter Care Teams Pump Tender Relationship Specialty Start Date End Date [...]
--- OUTSIDE RECORDS SUMMARY | 2024-09-21 15:22 | XMS_ITS | Encounter Summary ---
Author Organization [facility] Address [address] [place] [address] Care Team Providers Care Group Sales Manager Name Role Phone Neli Andrews MD Primary Care Provider Debora Brian Johnston PA-C Primary Care Provider Unavail able Cassius Alvarez MD Primary Care Provider Unavail able [facility], Pcp Primary Care Provider UnavailCassius Schmitz MD Primary Care Provider Unavail able [facility] Primary Care Provider UnavailCassius Schmitz MD Primary Care Provider Unavail able Reason for Visit * Reason Onset Date Comments injection 09/09/2020 Encounter Details Date Type Department Care Team Description 09/09/2020 Pt. Non Urgent Medical Question Physiatry - [address] [address] Blanco Sanders DO Sacroiliac dysfunction (Primary Dx); [...] as of this encounter Care Teams Group Sales Manager Relationship Specialty Start Date End Date Neli Andrews MD PCP - General Internal Medicine 03/18/18 1 Brian Davis PA-C PCP - General Med/Peds 03/25/21 04/02/21 Cassius Alvarez MD PCP - General Internal Medicine 04/03/21 11/16/21 [facility], Pcp PCP - General Internal Medicine 11/17/21 03/02/22 Cassius Alvarez MD PCP - General Internal Medicine 03/03/22 07/08/22 [facility], Pcp PCP - General Internal Medicine 07/09/22 01/19/23 Cassius Alvarez MD PCP - General Internal Medicine 01/20/23 documented as of this encounter
--- OUTSIDE RECORDS SUMMARY | 2024-09-21 15:22 | XMS_ITS | Encounter Summary ---
Author Organization [facility] Address [address] [place] [address] Care Team Providers Care Dialysis Biomed Technician Name Role Phone Neli Andrews MD [...] Team Description 10/24/2020 Hospital Medical Records [address] [place] [address] Dayana Frost MD [address] [place] [phone] Social History Tobacco Use Types Packs/Day [...] documented as of this encounter Care Teams Dialysis Biomed Technician Relationship Specialty Start Date End Date Neli Andrews MD PCP - General Internal Medicine 03/18/18 1 Brian Davis PA-C PCP - General Med/Peds 03/25/21 04/02/21 Cassius Alvarez MD PCP - General Internal Medicine 04/03/21 11/16/21 [facility], [facility]cp PCP - General Internal Medicine 11/17/21 03/02/22 Casisus Alvarez MD PCP - General Internal Medicine 03/03/22 07/08/22 [facility], Pcp PCP - General Internal Medicine 07/09/22 01/19/23 Cassius Alvarez MD PCP - General Internal Medicine 01/20/23 documented as of this encounter
--- OUTSIDE RECORDS SUMMARY | 2024-09-21 15:22 | XMS_ITS | Encounter Summary ---
Author Organization [facility] Address [address] [place] [address] Care Team Providers Care Client Care Consultant Name Role Phone Community, Pcp Primary Care Provider Cassius Guevara MD Primary Care Provider Unavail able [facility], Pcp Primary Care Provider UnavailCassius Schmitz MD Primary Care Provider Unavail able Reason for Visit * Reason Onset Date Comments Prior Authorization 01/01/2022 Encounter Details Date Type Department Care Team Description 01/01/2022 Telephone OBGYN - [place] [address] [place] [address] Gema Miller CNM [address] [place] [address] Prior Authorization Social History Tobacco Use Types [...] What Pharmacy did the fax come from: [facility] fax #: [phone] [employer] Information from fax: What Prescription Plan does the patient have? BIN/PCN if applicable: Cardholder ID: Person Code: Relationship Code: Help desk phone: documented in this encounter Plan of Treatment Not on file documented as of this encounter Visit Diagnoses Not on filedocumented in this encounter Care Teams Client Care Consultant Relationship Specialty Start Date End Date Community, Pcp PCP - General Internal Medicine 11/17/21 03/02/22 Cassius Alvarez MD PCP - General Internal Medicine 03/03/22 07/08/22 [facility], Pcp PCP - General Internal Medicine 07/09/22 01/19/23 Cassius Alvarez MD PCP - General Internal Medicine 01/20/23 documented as of this encounter
--- OUTSIDE RECORDS SUMMARY | 2024-09-21 15:22 | XMS_ITS | Encounter Summary ---
Author Organization [facility] Address [address] [place] [address] Care Team Providers Care Furs Salesperson Name Role Phone Neli Andrews MD Primary Care Provider Debora Brian Johnston PA-C Primary Care Provider Unavail able Cassius Alvarez MD Primary Care Provider Unavail able [facility], Pcp Primary Care Provider UnavailCassius Schmitz MD Primary Care Provider Unavail able [facility] Primary Care Provider UnavailCassius Schmitz MD Primary Care Provider Unavail able Encounter Details Date Type Department Care Team Description 09/03/2020 [facility] Medical Records [address] [place] [id number] [place] [address] Social History Tobacco Use Types Packs/Day Years [...] documented as of this encounter Care Teams Furs Salesperson Relationship Specialty Start Date End Date Neli [...]
--- OUTSIDE RECORDS SUMMARY | 2024-09-21 15:22 | XMS_ITS | Encounter Summary ---
Author Organization [facility] Address [address] [place] [address] Care Team Providers Care Supervisor Graphite Name Role Phone Cassius Alvarez MD Primary Care Provider [phone] Encounter Details Date Type Department Care Team (Latest Contact Info) Description 08/21/2024 Lab Requisition [facility] - Main Lab [address] [facility] [place] [address] Donald Wall, GUICHO [address] [facility] [address] [place] [address] Hydronephrosis with renal and ureteral calculous obstruction [...] 11:30 AM EDT Office Visit Gastroenterology - [place] [address] [phone] Anny Vogel PA [address] [address] 10/16/2024 8:30 AM EDT Office Visit Bariatric Surgery - [place] [address] [phone] Dayana Frost MD [address] [phone] 10/17/2024 8:00 AM EDT Appointment [facility] Management [address] [place] [phone] Blanco Sanders DO [address] [address] 11/29/2024 1:30 PM EDT Office Visit Obstetrics and Gynecology - [place] 444 [place] [address] Jewels Rogers, [facility] 444 [place], [place] documented as of this encounter Procedures Procedure Name Priority Date/Time Associated Diagnosis Comments PARATHYROID HORMONE INTACT Routine 08/21/2024 10:22 AM EST Hydronephrosis with renal and ureteral calculous obstruction documented in this encounter Results * Parathyroid hormone intact (08/21/2024 10:22 AM EST) PTH 54.2 18.5 - 88.0 pcg/mL LAB CHEMISTRY METHOD 08/21/2024 2:11 PM EST [facility] Blood Venous blood specimen / Unknown 08/21/2024 10:22 AM EST 08/21/2024 1:17 PM EST us Donald R Mae PA LAB BLOOD ORDERABLES Final Res ult [facility] [address] [place] [address], documented in this encounter Visit Diagnoses Diagnosis Hydronephrosis with renal and ureteral calculous obstruction documented in this encounter Care Teams Supervisor Graphite Relationship Specialty Start Date End Date Cassius Alvarez MD [address] [place] [id number] PCP - General Internal Medicine 06/07/24 documented as of this encounter
--- OUTSIDE RECORDS SUMMARY | 2024-09-21 15:22 | XMS_ITS | Encounter Summary ---
Author Organization [facility] Address [address] [place] [address] Care Team Providers Care Bone Char Operator Name Role Phone Cassius Alvarez MD Primary Care Provider Unavail able Community, Pcp Primary Care Provider Unavailabl e Cassius Alvarez MD Primary Care Provider Unavail able Encounter Details Date Type Department Care Team Description 06/02/2022 Pt. Non Urgent Medical Question OBGYN - [place] [address] [place] [address] Jewels Rogers, ANA [address] [place] [address] Social History Tobacco Use Types Packs/Day Years [...] on filedocumented in this encounter Care Teams Bone Char Operator Relationship Specialty Start Date End Date Cassius Alvarez MD PCP - General Internal Medicine 03/03/22 07/08/22 Community, Pcp PCP - General Internal Medicine 07/09/22 01/19/23 Cassius Alvarez MD PCP - General Internal Medicine 01/20/23 documented as of this encounter
--- OUTSIDE RECORDS SUMMARY | 2024-09-21 15:22 | XMS_ITS | Encounter Summary ---
Author Organization [facility] Address [address] [place] [address] Care Team Providers Care University Registrar Name Role Phone Neli Andrews MD Primary Care Provider Debora Brian Johnston PA-C Primary Care Provider Unavail able Cassius Alvarez MD Primary Care Provider Unavail able [facility], Pcp Primary Care Provider UnavailCassius Schmitz MD Primary Care Provider Unavail able [facility], Pcp Primary Care Provider UnavailCassius Schmitz MD Primary Care Provider Unavail able Encounter Details Date Type Department Care Team Description 06/04/2020 [facility] Medical Records [address] [place] [address] Abstract, Provider Social History Tobacco Use Types [...] documented as of this encounter Care Teams University Registrar Relationship Specialty Start Date End Date Neli [...]
--- OUTSIDE RECORDS SUMMARY | 2024-09-21 15:22 | XMS_ITS | Encounter Summary ---
Author Organization [facility] Address [address] [place] [address] Care Team Providers Care Manager Talent Name Role Phone Cassius Alvarez MD Primary Care Provider Unavail able Encounter Details Date Type Department Care Team Description 02/01/2024 Refill Bariatric Surgery - [place] 175 [facility] [address] [place] [address] Shanti Rivero PA-C 271 [facility] [address] [place] [address] Social History Tobacco Use Types [...] on filedocumented in this encounter Care Teams Manager Talent Relationship Specialty Start Date End Date Cassius Alvarez MD PCP - General Internal Medicine 01/20/23 documented as of this encounter
--- OUTSIDE RECORDS SUMMARY | 2024-09-21 15:22 | XMS_ITS | Encounter Summary ---
Author Organization [facility] Address [address] [place] [address] Care Team Providers Care Veterinary Livestock Inspector Name Role Phone Neli Andrews MD [...] Team Description 10/24/2020 Hospital Medical Records 444 [place] [address] Dayana Frost MD [address] [place] [phone] Social History Tobacco Use Types Packs/Day [...] as of this encounter Care Teams Veterinary Livestock Inspector Relationship Specialty Start Date End Date [...]
--- OUTSIDE RECORDS SUMMARY | 2024-09-21 15:22 | XMS_ITS | Encounter Summary ---
[facility] Organization [facility] Address [address] [place] [address] Care Team Providers Care Loan Counselor Name Role Phone Cassius Alvarez MD Primary Care Provider Unavail able Community, Pcp Primary Care Provider Unavailabl e Cassius Alvarez MD Primary Care Provider Unavail able Encounter Details Date Type Department Care Team Description 06/02/2022 Transportation Clerk Report Medical Records [address] [place] [address] Parul Browne MD Social History Tobacco Use Types Packs/Day [...] on filedocumented in this encounter Care Teams Loan Counselor Relationship Specialty Start Date End Date Cassius Alvarez MD PCP - General Internal Medicine 03/03/22 07/08/22 [facility], Pcp PCP - General Internal Medicine 07/09/22 01/19/23 Cassius Alvarez MD PCP - General Internal Medicine 01/20/23 documented as of this encounter
--- OUTSIDE RECORDS SUMMARY | 2024-09-21 15:23 | XMS_ITS | Encounter Summary ---
Author Organization [facility] Address [address] [place] [address] Care Team Providers Care Revenue Audit Clerk Name Role Phone Cassius Alvarez MD Primary Care Provider Unavail able Encounter Details Date Type Department Care Team Description 07/29/2023 Hospital Medical Records [address] [place] [address] Dayana Frost MD [address] [place] [phone] Social History Tobacco Use Types Packs/Day [...] on filedocumented in this encounter Care Teams Revenue Audit Clerk Relationship Specialty Start Date End Date Cassius Alvarez MD PCP - General Internal Medicine 01/20/23 documented as of this encounter
--- OUTSIDE RECORDS SUMMARY | 2024-09-21 15:23 | XMS_ITS | Encounter Summary ---
Author Organization [employer] [facility] Address [address] [place] [address] Care Team Providers Care Tyre Finisher And Examiner Name Role Business Performance SpecialistKenny Morales MD Primary Care Provider Unavailab Neli Anderosn MD Primary Care Provider Debora Brian Johnston PA-C Primary Care Provider Unavail able Cassius Alvarez MD Primary Care Provider Unavail able [facility], Pcp Primary Care Provider Unavailabl Cassius Heaton MD Primary Care Provider Unavail able [facility], Pcp Primary Care Provider Unavailabl Cassius Heaton MD Primary Care Provider Unavail able Encounter Details Date Type Department Care Team Description 12/25/2016 Adult Education Instructor Report Medical Records [address] [place] [id number] [place] [address] Social History Tobacco Use Types Packs/Day Years [...] documented as of this encounter Care Teams Tyre Finisher And Examiner Relationship Specialty Start Date End Date [...]
--- OUTSIDE RECORDS SUMMARY | 2024-09-21 15:23 | XMS_ITS | Encounter Summary ---
Author Organization [facility] Address [address] [place] [address] Care Team Providers Care Professor Of Latin American Studies Name Role Phone Cassius Alvarez MD Primary Care Provider Unavail able Community, Pcp Primary Care Provider Cassius Guevara MD Primary Care Provider Unavail able Community, Pcp Primary Care Provider UnavailCassius Schmitz MD Primary Care Provider Unavail able Encounter Details Date Type Department Care Team Description 05/12/2021 Hospital Medical Records [address] [place] [address] Martinez Peacock MD [address] [place] [address] [place] [address] Social History Tobacco Use Types Packs/Day Years [...] documented as of this encounter Care Teams Professor Of Latin American Studies Relationship Specialty Start Date End Date Cassius [...]
--- OUTSIDE RECORDS SUMMARY | 2024-09-21 15:23 | XMS_ITS | Encounter Summary ---
Author Organization [facility] Address [address] [place] [address] Care Team Providers Care Ehs Engineer Name Role Phone Cassius Alvarez MD Primary Care Provider Unavail able Community, Pcp Primary Care Provider Cassius Guevara MD Primary Care Provider Unavail able [facility], Pcp Primary Care Provider Unavailabl Cassius Heaton MD Primary Care Provider Unavail able Encounter Details Date Type Department Care Team Description 05/05/2021 Plastics Fitter Report Medical Records [address] [place] [address] Zane Flowers MD Social History Tobacco Use [...] documented as of this encounter Care Teams Ehs Engineer Relationship Specialty Start Date End Date Cassius [...]
--- OUTSIDE RECORDS SUMMARY | 2024-09-21 15:23 | XMS_ITS | Encounter Summary ---
Author Organization [facility] Address [address] [place] [address] Care Team Providers Care Neonatal Critical Care Nurse Name Role Phone Cassius Alvarez MD Primary Care Provider Unavail able Community, Pcp Primary Care Provider Cassius Guevara MD Primary Care Provider Unavail able [facility], [facility]cp Primary Care Provider UnavailCassius Schmitz MD Primary Care Provider Unavail able Encounter Details Date Type Department Care Team Description 05/16/2021 Orders Only Medical Records [address] [place] [address] Martinez Peacock MD [address] [place] [address] [place] [address] Social History Tobacco Use Types Packs/Day Years [...] documented as of this encounter Care Teams Neonatal Critical Care Nurse Relationship Specialty Start Date End Date Cassius Alvarez MD PCP - General Internal Medicine 04/03/21 11/16/21 Community, Pcp PCP - General Internal Medicine 11/17/21 03/02/22 Cassius Alvarez MD PCP - General Internal Medicine 03/03/22 07/08/22 [facility], Pcp PCP - General Internal Medicine 07/09/22 01/19/23 Cassius Alvarez MD PCP - General Internal Medicine 01/20/23 documented as of this encounter
--- OUTSIDE RECORDS SUMMARY | 2024-09-21 15:23 | XMS_ITS | Encounter Summary ---
Author Organization [facility] Address [address] [place] [address] Care Team Providers Care Coal Inspector Name Role Phone Cassius Alvarez MD Primary Care Provider Unavail able Community, Pcp Primary Care Provider Cassius Guevara MD Primary Care Provider Unavail able Counts Include [facility], Pcp Primary Care Provider UnavailCassius Schmitz MD Primary Care Provider Unavail able Encounter Details Date Type Department Care Team Description 05/26/2021 Telephone Gastroenterology - [place] 175 [facility] [address] [place] [address] Anny Vogel DScPAS Social History [...] documented as of this encounter Care Teams Coal Inspector Relationship Specialty Start Date End Date [...]
--- OUTSIDE RECORDS SUMMARY | 2024-09-21 15:23 | XMS_ITS | Encounter Summary ---
Author Organization [facility] Address [address] [place] [address] Care Team Providers Care Drama Teacher Name Role Phone Cassius Alvarez MD Primary Care Provider Unavail able Community, Pcp Primary Care Provider Cassius Guevara MD Primary Care Provider Unavail able [facility], Pcp Primary Care Provider UnavailCassius Schmitz MD Primary Care Provider Unavail able Encounter Details Date Type Department Care Team Description 05/08/2021 [place] Packer Report Medical Records [address] [place] [address] Blanco Sanders DO Social History Tobacco Use [...] documented as of this encounter Care Teams Drama Teacher Relationship Specialty Start Date End Date [...]
--- OUTSIDE RECORDS SUMMARY | 2024-09-21 15:23 | XMS_ITS | Encounter Summary ---
Author Organization [facility] Address [address] [place] [address] Care Team Providers Care Field Supervisor Seed Production Name Role Phone Cassius Alvarez MD Primary Care Provider Unavail able Encounter Details Date Type Department Care Team Description 08/31/2023 [facility] Medical Records [address] [place] [address] Blanco Emanuel MD Social History Tobacco Use [...] filedocumented in this encounter Care Teams Field Supervisor Seed Production Relationship Specialty Start Date End Date Cassius Alvarez MD PCP - General Internal Medicine 01/20/23 documented as of this encounter
--- OUTSIDE RECORDS SUMMARY | 2024-09-21 15:23 | XMS_ITS | Encounter Summary ---
Author Organization [facility] Address [address] [place] [address] Care Team Providers Care Senior Java Ui Developer Name Role Phone Cassius Alvarez MD Primary Care Provider Unavail able Community, Pcp Primary Care Provider Cassius Guevara MD Primary Care Provider Unavail able [facility], Pcp Primary Care Provider UnavailCassius Schmitz MD Primary Care Provider Unavail able Encounter Details Date Type Department Care Team Description 05/07/2021 Pt. Non Urgent Medical Question Gastroenterology - [address] [place] [address] Anny Vogel DScPAS Social History [...] as of this encounter Care Teams Senior Java Ui Developer Relationship Specialty Start Date End Date Cassius [...]
--- OUTSIDE RECORDS SUMMARY | 2024-09-21 15:23 | XMS_ITS | Encounter Summary ---
Author Organization [facility] Address [address] [place] [address] Care Team Providers Care Nursing Administrator Name Role Territory Sales ManagerKenny Morales MD Primary Care Provider Unavailab Neli Anderson MD Primary Care Provider Debora Brian Johnston PA-C Primary Care Provider Unavail able Cassius Alvarez MD Primary Care Provider Unavail able [facility], Pcp Primary Care Provider Unavailabl Cassius Heaton MD Primary Care Provider Unavail able [facility], [facility] Primary Care Provider UnavailCassius Schmitz MD Primary Care Provider Unavail able Encounter Details Date Type Department Care Team Description 12/15/2017 Pt. Non Urgent Medical Question Physiatry - [address] [address] Blanco Sanders DO Chronic bilateral low back [...] as of this encounter Care Teams Nursing Administrator Relationship Specialty Start Date End Date Kenny [...]
--- OUTSIDE RECORDS SUMMARY | 2024-09-21 15:23 | XMS_ITS | Encounter Summary ---
Author Organization [facility] Address [address] [place] [address] Care Team Providers Care Wage And Hour Investigator Name Role Phone Cassius Alvarez MD Primary Care Provider Unavail able Reason for Visit * Reason Onset Date Comments Advice 08/05/2023 Encounter Details Date Type Department Care Team Description 08/05/2023 Telephone OBGYN - [place] [address] [place] [address] Jc Barbour, DO Advice Social History Tobacco [...] the patient had this problem? 07/29/23 Pt???s ACCOUNT MANAGER EMPLOYEE BENEFITS provider: Jc Yen, Last menstrual period (LMP) or EDC (due date): N/A documented in this encounter Plan of Treatment Not on file documented as of this encounter Visit Diagnoses Not on filedocumented in this encounter Care Teams Wage And Hour Investigator Relationship Specialty Start Date End Date Cassius Alvarez MD PCP - General Internal Medicine 01/20/23 documented as of this encounter
--- OUTSIDE RECORDS SUMMARY | 2024-09-21 15:23 | XMS_ITS | Encounter Summary ---
Author Organization [facility] Address [address] [place] [address] Care Team Providers Care Health Care Law Specialist Name Role Phone Cassius Alvarez MD Primary Care Provider Unavail able Encounter Details Date Type Department Care Team Description 08/03/2023 Orders Only Medical Records [address] [place] [address] Dayana Frost MD [address] [place] [phone] Social History Tobacco Use Types Packs/Day [...] on filedocumented in this encounter Care Teams Health Care Law Specialist Relationship Specialty Start Date End Date Cassius Alvarez MD PCP - General Internal Medicine 01/20/23 documented as of this encounter
--- OUTSIDE RECORDS SUMMARY | 2024-09-21 15:23 | XMS_ITS | Encounter Summary ---
Author Organization [facility] Address [address] [place] [address] Care Team Providers Care Toll Ticket Clerk Name Role High Frequency Mill OperatorKenny Morales MD Primary Care Provider Unavailab [...] Date Type Department Care Team Description 08/04/2016 [facility] Medical Records [address] [place] [address] Abstract, Provider Social History Tobacco Use Types [...] as of this encounter Care Teams Toll Ticket Clerk Relationship Specialty Start Date End Date [...]
--- OUTSIDE RECORDS SUMMARY | 2024-09-21 15:23 | XMS_ITS | Encounter Summary ---
Author Organization [facility] Address [address] [place] [address] Care Team Providers Care Manager Pulmonary Name Role Phone Cassius Alvarez MD Primary Care Provider Unavail able Community, Pcp Primary Care Provider UnavailCassius Schmitz MD Primary Care Provider Unavail able Community, Pcp Primary Care Provider UnavailCassius Schmitz MD Primary Care Provider Unavail able Reason for Visit * Reason Onset Date Comments Medication 05/26/2021 Encounter Details Date Type Department Care Team Description 05/26/2021 Refill Gastroenterology - [address] [place] [phone] Marylu Cisneros MD Medication Social History [...] documented as of this encounter Care Teams Manager Pulmonary Relationship Specialty Start Date End Date Cassius [...]
--- OUTSIDE RECORDS SUMMARY | 2024-09-21 15:23 | XMS_ITS | Encounter Summary ---
Author Organization [facility] Address [address] [place] [address] Care Team Providers Care Oil Burner Installer Name Role Pipe Machine OperatorKenny Morales MD Primary Care Provider Unavailab Neli Anderson MD Primary Care Provider Debora Brian Johnston PA-C Primary Care Provider Unavail able Cassius Alvarez MD Primary Care Provider Unavail able [facility], Pcp Primary Care Provider UnavailCassius Schmitz MD Primary Care Provider Unavail able [facility], Pcp Primary Care Provider Unavailabl Cassius Heaton MD Primary Care Provider Unavail able Encounter Details Date Type Department Care Team Description 01/03/2018 Release of Information Medical Records [address] [place] [id number] Abstract, Provider Social History Tobacco Use Types [...] documented as of this encounter Care Teams Oil Burner Installer Relationship Specialty Start Date End Date [...]
--- OUTSIDE RECORDS SUMMARY | 2024-09-21 15:23 | XMS_ITS | Encounter Summary ---
Author Organization [employer] [facility] Address [address] [place] [address] Care Team Providers Care Maintenance Aide Name Role Bow Making Machine OperatorKenny Morales MD Primary Care Provider Unavailab Neli Anderson MD Primary Care Provider Debora Brian Johnston PA-C Primary Care Provider Unavail able Cassius Alvarez MD Primary Care Provider Unavail able [facility], Pcp Primary Care Provider UnavailCassius Schmitz MD Primary Care Provider Unavail able [facility], Pcp Primary Care Provider Unavailabl Cassius Heaton MD Primary Care Provider Unavail able Encounter Details Date Type Department Care Team Description 03/03/2017 Release of Information Medical Records [address] [place] [address] Abstract, Provider Social History Tobacco Use Types [...] documented as of this encounter Care Teams Maintenance Aide Relationship Specialty Start Date End Date [...]
--- OUTSIDE RECORDS SUMMARY | 2024-09-21 15:23 | XMS_ITS | Encounter Summary ---
Author Organization [facility] Address [address] [place] [address] Care Team Providers Care Oil Well Fishing Tool Operator Name Role Phone Cassius Alvarez MD Primary Care Provider Unavail able Community, Pcp Primary Care Provider Cassius Guevara MD Primary Care Provider Unavail able [facility] Primary Care Provider UnavailCassius Schmitz MD Primary Care Provider Unavail able Encounter Details Date Type Department Care Team Description 05/28/2021 Orders Only Medical Records [address] [place] [address] Marylu Cisneros MD Social History Tobacco Use [...] Date/Time Associated Diagnosis Comments OUTSIDE LAB Routine 05/27/2021 documented in this encounter Results * OUTSIDE LAB (05/27/2021) Marylu Cisneros MD LAB documented in this encounter Visit Diagnoses Not on filedocumented in this encounter Additional Health Concerns Infection Onset Date Last Indicated Resolved Time COVID-19 08/27/2021 08/28/2021 12/04/2021 9:44 AM EDT documented as of this encounter Care Teams Oil Well Fishing Tool Operator Relationship Specialty Start Date End Date [...]
--- OUTSIDE RECORDS SUMMARY | 2024-09-21 15:23 | XMS_ITS | Encounter Summary ---
Author Organization [facility] Address [address] [place] [address] Care Team Providers Care Transmission System Operator Name Role Phone Cassius Alvarez MD Primary Care Provider Unavail able Reason for Visit * Reason Onset Date Comments Gynecological Problem 08/12/2023 Encounter Details Date Type Department Care Team Description 08/12/2023 Telephone OBGYN - [address] [address] Shannon He MD [address] [place] [id number] Gynecological Problem Social History Tobacco Use Types [...] the patient had this problem? - Pt???s STRAPPING MACHINE OPERATOR provider: Shannon He MD Last menstrual period (LMP) or EDC (due date): N/A documented in this encounter Plan of Treatment Not on file documented as of this encounter Visit Diagnoses Not on filedocumented in this encounter Care Teams Transmission System Operator Relationship Specialty Start Date End Date Cassius Alvarez MD PCP - General Internal Medicine 01/20/23 documented as of this encounter
--- OUTSIDE RECORDS SUMMARY | 2024-09-21 15:23 | XMS_ITS | Encounter Summary ---
[facility] Address [address] [place] [address] Care Team Providers Care Retail Center Receptionist Name Role Phone Kiesha Hinojosa MD Primary [...] Care Team Description 09/14/2011 Refill Pediatrics - [address] [address] Kiesha Hinojosa MD Faxed Refill Social History [...] the end of the day? NO Payor: [facility]/Ver[employer] FFS Plan: [employer] [place] $15 Product Type: Veracode [id number] documented in this encounter Plan of Treatment Not on file documented as of this encounter Visit Diagnoses Not on filedocumented in this encounter Additional Health Concerns Infection Onset Date Last Indicated Resolved Time COVID-19 08/27/2021 08/28/2021 12/04/2021 9:44 AM EDT documented as of this encounter Care Teams Retail Center Receptionist Relationship Specialty Start Date End Date Kiesha Hinojosa MD PCP - General 05/22/1997 12/30/11 Kenny Morales MD PCP - General Internal Medicine 12/31/11 03/17/18 Neli Andrews MD PCP - General Internal Medicine 03/18/18 1 Brian Davis PA-C PCP - General Med/Peds 03/25/21 04/02/21 Cassius Alvarez MD PCP - General Internal Medicine 04/03/21 11/16/21 [facility] PCP - General Internal Medicine 11/17/21 03/02/22 Cassius Alvarez MD PCP - General Internal Medicine 03/03/22 07/08/22 [facility], Pcp PCP - General Internal Medicine 07/09/22 01/19/23 Cassius Alvarez MD PCP - General Internal Medicine 01/20/23 documented as of this encounter
--- OUTSIDE RECORDS SUMMARY | 2024-09-21 15:23 | XMS_ITS | Encounter Summary ---
Author Organization [facility] Address [address] [place] [address] Care Team Providers Care Supervisor Boiler Repair Name Role Bridge ContractorKenny Morales MD Primary Care Provider Unavailab Neli [...] Date Type Department Care Team Description 01/29/2016 Platen Grinder Report Medical Records [address] [place] [address] Silvino Valero MD Social History Tobacco Use [...] as of this encounter Care Teams Supervisor Boiler Repair Relationship Specialty Start Date End Date Kenny [...]
--- OUTSIDE RECORDS SUMMARY | 2024-09-21 15:23 | XMS_ITS | Encounter Summary ---
[facility] Address [address] [place] [address] Care Team Providers Care Recycling Worker Name Role Phone Cassius Alvarez MD Primary Care Provider Unavail able Encounter Details Date Type Department Care Team Description 07/01/2023 Consolidation Accountant Report Medical Records [address] [place] [address] Alix Cardenas PA-C Social History Tobacco Use Types Packs/Day [...] on filedocumented in this encounter Care Teams Recycling Worker Relationship Specialty Start Date End Date Cassius Alvarez MD PCP - General Internal Medicine 01/20/23 documented as of this encounter
--- OUTSIDE RECORDS SUMMARY | 2024-09-21 15:23 | XMS_ITS | Encounter Summary ---
Author Organization [facility] Address [address] [place] [address] Care Team Providers Care Hand Compositor Name Role Phone Cassius Alvarez MD Primary Care Provider Unavail able Encounter Details Date Type Department Care Team Description 08/23/2023 Pt. Non Urgent Medical Question Bariatric Surgery - [place] 175 [facility] [address] [place] [address] Dayana Frost MD 175 [facility] [address] [place] [address] Social History Tobacco Use Types [...] on filedocumented in this encounter Care Teams Hand Compositor Relationship Specialty Start Date End Date Cassius Alvarez MD PCP - General Internal Medicine 01/20/23 documented as of this encounter
--- OUTSIDE RECORDS SUMMARY | 2024-09-21 15:23 | XMS_ITS | Encounter Summary ---
Author Organization [facility] Address [address] [place] [address] Care Team Providers Care Herbicide Sprayer Name Role Paper Coating SupervisorKenny Morales MD Primary Care Provider Unavailab Neli Anderson MD Primary Care Provider Debora Brian Johnston PA-C Primary Care Provider Unavail able Cassius Alvarez MD Primary Care Provider Unavail able [facility], Pcp Primary Care Provider UnavailCassius Schmitz MD Primary Care Provider Unavail able [facility], Pcp Primary Care Provider UnavailCassius Schmitz MD Primary Care Provider Unavail able Encounter Details Date Type Department Care Team Description 09/09/2017 Brass Finisher Report Medical Records [address] [place] [address] Social History Tobacco Use Types Packs/Day Years [...] documented as of this encounter Care Teams Herbicide Sprayer Relationship Specialty Start Date End Date [...]
--- OUTSIDE RECORDS SUMMARY | 2024-09-21 15:24 | XMS_ITS | Encounter Summary ---
[facility] Organization [facility] Address [address] [place] [address] Care Team Providers Care Embroidery Operator Name Role Phone Kiesha Hinojosa MD Primary Care Provider Unavaila Kenny Sun MD Primary Care Provider Unavailab Neli Anderson MD Primary Care Provider Debora Brian Johnston PA-C Primary Care Provider Unavail able Cassius Alvarez MD Primary Care Provider Unavail able [facility], Pcp Primary Care Provider UnavailCassius Schmitz MD Primary Care Provider Unavail able [facility], Pcp Primary Care Provider Unavailabl Cassius Heaton MD Primary Care Provider Unavail able Encounter Details Date Type Department Care Team Description 01/03/2010 Forest Science Professor Report Medical Records [address] [place] [id number] Roman Pompa Social History Tobacco Use Types [...] documented as of this encounter Care Teams Embroidery Operator Relationship Specialty Start Date End Date Kiesha [...]
--- OUTSIDE RECORDS SUMMARY | 2024-09-21 15:24 | XMS_ITS | Encounter Summary ---
Author Organization [facility] Address [address] [place] [address] Care Team Providers Care Freight Sales Broker Name Role Phone Neli Andrews MD Primary Care Provider Debora Brian Johnston PA-C Primary Care Provider Unavail able Cassius Alvarez MD Primary Care Provider Unavail able [facility], Pcp Primary Care Provider Unavailabl e Cassius Alvarez MD Primary Care Provider Unavail able [facility], Pcp Primary Care Provider UnavailCassius Schmitz MD Primary Care Provider Unavail able Reason for Visit * Reason Onset Date Comments er follow up 11/01/2018 Encounter Details Date Type Department Care Team Description 11/01/2018 Telephone [facility] - [address] [phone] Kristofer Ferrari CNM er follow up Social [...] Returned pt's call, reports she went to [facility] ER on Wednesday10/28/18 and [facility] ER on 10/31/18 for stomach pain . Per pt [facility] ER told her she has a right [...] with: Hospital/ center patient was treated at: [facility] Date of visit: 10/31/18 Was this only [...] documented as of this encounter Care Teams Freight Sales Broker Relationship Specialty Start Date End Date Neli [...]
--- OUTSIDE RECORDS SUMMARY | 2024-09-21 15:24 | XMS_ITS | Encounter Summary ---
[facility] Address [address] [place] [address] Care Team Providers Care Aircraft Painter Name Role Phone Neli Andrews MD Primary Care Provider Debora Brian Johnston PA-C Primary Care Provider Unavail able Cassius Alvarez MD Primary Care Provider Unavail able [facility], Pcp Primary Care Provider UnavailCassius Schmitz MD Primary Care Provider Unavail able [facility], Pcp Primary Care Provider UnavailCassius Schmitz MD Primary Care Provider Unavail able Encounter Details Date Type Department Care Team Description 01/28/2021 Logistics Project Manager Report Medical Records [address] [place] [address] Prashant Brady MD Social History Tobacco Use [...] documented as of this encounter Care Teams Aircraft Painter Relationship Specialty Start Date End Date Neli [...]
--- OUTSIDE RECORDS SUMMARY | 2024-09-21 15:24 | XMS_ITS | Encounter Summary ---
[facility] Address [address] [place] [address] Care Team Providers Care Direct Marketing Specialist Name Role Phone Neli Andrews MD Primary Care Provider Debora Brian Johnston PA-C Primary Care Provider Unavail able Cassius Alvarez MD Primary Care Provider Unavail able [facility], Pcp Primary Care Provider UnavailCassius Schmitz MD Primary Care Provider Unavail able [facility], Pcp Primary Care Provider UnavailCassius Schmitz MD Primary Care Provider Unavail able Encounter Details Date Type Department Care Team Description 02/25/2021 Private Banker Report Medical Records [address] [place] [address] Prashant Brady MD Social History Tobacco Use [...] have Coronavirus / COVID-19? No / Unsure 02/18/2021 7:48 AM EDT documented as of this encounter Plan of Treatment Not on file documented as of this encounter Visit Diagnoses Not on filedocumented in this encounter Additional Health Concerns Infection Onset Date Last Indicated Resolved Time COVID-19 08/27/2021 08/28/2021 12/04/2021 9:44 AM EDT documented as of this encounter Care Teams Direct Marketing Specialist Relationship Specialty Start Date End Date [...]
--- OUTSIDE RECORDS SUMMARY | 2024-09-21 15:24 | XMS_ITS | Encounter Summary ---
[facility] Address [address] [place] [address] Care Team Providers Care Scrap Hoist Operator Name Role Phone Cassius Alvarez MD Primary Care Provider Unavail able Encounter Details Date Type Department Care Team Description 05/05/2024 Pt. Non Urgent Medical Question Bariatric Surgery - [place] [address] [facility] [address] [place] [address] Shanti Rivero PA-C 271 [facility] [address] [place] [address] Social History Tobacco Use Types [...] on filedocumented in this encounter Care Teams Scrap Hoist Operator Relationship Specialty Start Date End Date Cassius Alvarez MD PCP - General Internal Medicine 01/20/23 documented as of this encounter
--- OUTSIDE RECORDS SUMMARY | 2024-09-21 15:24 | XMS_ITS | Encounter Summary ---
[facility] Organization [facility] Address [address] [place] [address] Care Team Providers Care Inventory Manager Name Role Phone Neli Andrews MD Primary Care Provider Debora Brian Johnston PA-C Primary Care Provider Unavail able Cassius Alvarez MD Primary Care Provider Unavail able [facility], Pcp Primary Care Provider Unavailabl Cassius Heaton MD Primary Care Provider Unavail able [facility] Include [facility], Pcp Primary Care Provider UnavailCassius Schmitz MD Primary Care Provider Unavail able Reason for Visit * Reason Comments E-prescribe Rx Request Encounter Details Date Type Department Care Team Description 02/03/2021 Refill General Surgery - [address] [place] [address] Danny Thomas MD [address] [place] [address] [address] [place] [address] E-prescribe Rx Request Social History Tobacco Use [...] documented as of this encounter Care Teams Inventory Manager Relationship Specialty Start Date End Date [...]
--- OUTSIDE RECORDS SUMMARY | 2024-09-21 15:24 | XMS_ITS | Encounter Summary ---
Author Organization [facility] Address [address] [place] [address] Care Team Providers Care Bandage Maker Name Role Phone Cassius Alvarez MD Primary Care Provider Unavail able Reason for Visit * Reason Onset Date Comments Menstrual Problems 04/28/2024 Encounter Details Date Type Department Care Team Description 04/28/2024 Telephone OBGYN - [address] [place] [phone] Shannon He MD [address] [place] [address] [phone] Menstrual Problems Social History Tobacco Use Types [...] on filedocumented in this encounter Care Teams Bandage Maker Relationship Specialty Start Date End Date Cassius Alvarez MD PCP - General Internal Medicine 01/20/23 documented as of this encounter
--- OUTSIDE RECORDS SUMMARY | 2024-09-21 15:24 | XMS_ITS | Encounter Summary ---
Author Organization [facility] Address [address] [place] [address] Care Team Providers Care Scorer Helper Name Role Phone Neli Andrews MD Primary [...] Non Urgent Medical Question General Surgery - [place] 175 [facility] [address] [place] [phone] Dayana Frost MD 175 [facility] Jignesh [address] [place] [phone] Social History Tobacco Use Types Packs/Day [...] documented as of this encounter Care Teams Scorer Helper Relationship Specialty Start Date End Date Neli [...]
--- OUTSIDE RECORDS SUMMARY | 2024-09-21 15:24 | XMS_ITS | Encounter Summary ---
[facility] Address [address] [place] [address] Care Team Providers Care Engine Monitor Name Role Phone Cassius Alvarez MD Primary Care Provider Unavail able Encounter Details Date Type Department Care Team Description 03/22/2024 Pt. Non Urgent Medical Question Bariatric Surgery - [place] 175 [facility] [address] [place] [address] Shanti Rivero PA-C 271 [facility] [address] [place] [address] Social History Tobacco Use Types [...] on filedocumented in this encounter Care Teams Engine Monitor Relationship Specialty Start Date End Date Cassius Alvarez MD PCP - General Internal Medicine 01/20/23 documented as of this encounter
--- OUTSIDE RECORDS SUMMARY | 2024-09-21 15:24 | XMS_ITS | Encounter Summary ---
Author Organization [facility] Address [address] [place] [address] Care Team Providers Care Insurance Coder Name Role Agricultural Equipment Test EngineerKenny Morales MD Primary Care Provider Unavailab Neli Anderson MD Primary Care Provider Debora Brian Johnston PA-C Primary Care Provider Unavail able Cassius Alvarez MD Primary Care Provider Unavail able [facility], Pcp Primary Care Provider UnavailCassius Schmitz MD Primary Care Provider Unavail able [facility], Pcp Primary Care Provider UnavailCassius Schmitz MD Primary Care Provider Unavail able Encounter Details Date Type Department Care Team Description 01/03/2018 Business Doc Medical Records [address] [place] [address] Abstract, Provider Social History Tobacco Use Types [...] as of this encounter Care Teams Insurance Coder Relationship Specialty Start Date End Date Kenny [...]
--- OUTSIDE RECORDS SUMMARY | 2024-09-21 15:24 | XMS_ITS | Encounter Summary ---
[facility] Address [address] [place] [address] Care Team Providers Care Hot Cell Technician Name Role Phone Cassius Alvarez MD Primary Care Provider Unavail able [facility], Pcp Primary Care Provider Cassius Guevara MD Primary Care Provider Unavail able [facility], Pcp Primary Care Provider UnavailCassius Schmitz MD Primary Care Provider Unavail able Encounter Details Date Type Department Care Team Description 04/09/2021 Box Truck Washer Report Medical Records [address] [place] [address] Blanco Sanders DO Social History Tobacco Use [...] documented as of this encounter Care Teams Hot Cell Technician Relationship Specialty Start Date End Date [...]
--- OUTSIDE RECORDS SUMMARY | 2024-09-21 15:24 | XMS_ITS | Encounter Summary ---
Author Organization [facility] Address [address] [place] [address] Care Team Providers Care Feather Baler Name Role Phone Cassius Alvarez MD Primary Care Provider Unavail able Encounter Details Date Type Department Care Team Description 04/12/2024 Pt. Non Urgent Medical Question Bariatric Surgery - [place] 175 [facility] [address] [place] [address] Shanti Rivero PA-C 271 [facility] [address] [place] [address] Social History Tobacco Use Types [...] on filedocumented in this encounter Care Teams Feather Baler Relationship Specialty Start Date End Date Cassius Alvarez MD PCP - General Internal Medicine 01/20/23 documented as of this encounter
--- OUTSIDE RECORDS SUMMARY | 2024-09-21 15:24 | XMS_ITS | Encounter Summary ---
Author Organization [facility] Address [address] [place] [address] Care Team Providers Care Certified Physician Assistant Name Role Phone Brian Davis PA-C Primary Care Provider Unavail able Cassius Alvarez MD Primary Care Provider Unavail able [facility], Pcp Primary Care Provider UnavailCassius Schmitz MD Primary Care Provider Unavail able [facility], Pcp Primary Care Provider UnavailCassius Schmitz MD Primary Care Provider Unavail able Encounter Details Date Type Department Care Team Description 04/02/2021 Transfer Records Medical Records [address] [place] [address] Abstract, Provider Social History Tobacco Use Types [...] as of this encounter Care Teams Certified Physician Assistant Relationship Specialty Start Date End Date Brian [...]
--- OUTSIDE RECORDS SUMMARY | 2024-09-21 15:24 | XMS_ITS | Encounter Summary ---
Author Organization [facility] Address [address] [place] [address] Care Team Providers Care Digital Artist Name Role Phone Cassius Alvarez MD Primary Care Provider Unavail able Encounter Details Date Type Department Care Team Description 04/06/2024 Pt. Non Urgent Medical Question Bariatric Surgery - [place] 175 [facility] [address] [place] [address] Shanti Rivero PA-C 271 [facility] [address] [place] [address] Social History Tobacco Use Types [...] filedocumented in this encounter Care Teams Digital Artist Relationship Specialty Start Date End Date Cassius Alvarez MD PCP - General Internal Medicine 01/20/23 documented as of this encounter
--- OUTSIDE RECORDS SUMMARY | 2024-09-21 15:24 | XMS_ITS | Clinical Summary ---
Author Organization [facility] Address [address] [place] [address] Care Team Providers Care Edge Cutter Name Role Phone Cassius Alvarez MD Primary [...] 0 09/22/2023 Active Vitamin A 3 MG (10413 UT) Tab Take 1 Tablet by mouth [...] Educational Resources Center for Disease Control (www.cdc.gov/ncbddd/adhd/) [place] [employer] Pediatric[employer] (www.aap.org/healthtopics/adhd.cfm) National Resource Center for ADHD (www.fevz5jkqu.org) Children and Adults with Attention Deficit Hyperactivity Disorder (www.norma.org) [place] [employer] Access Project (www.[facility].ChickRx) This care plan was created in collaboration [...] that this will likely not cause any extermination supervisor sequelae. They were both reasurred. Positive GBS test 07/31/2022 Overview: Will treat in labor POTS (postural orthostatic tachycardia s yndrome) 07/07/2022 Overview: Cardiology c/s 06/02/22 - ECHO WNL, recommend hyrdration and compression stockings, f/u in Spring after delivery Elevated blood pressure reading 06/17/20 Overview: 06/17/2022 seen in [facility] ED and [facility] triage for SOB, [...] monitor. Bladder spasms 04/22/2022 Overview: Went to [facility] on 03/25- discharged stable, advised to increase hydration H/O myomectomy 02/08/2022 Overview: 11/28/2021- for symptomatic uterine fibroid- not into myometrium and does not need . Dr. Barbour confirmed with [facility] History of hypertension 02/06/2022 Overview: Diastolic [...] Adnexal cyst 11/25/2018 Overview: 11/04/18 Presented to [facility] for abdominal pain. CT scan showed [...] her ferritin; follow-up in a few months [facility] Polysomnogram: Date 04/05/2019; Wt [...] spondylitis 03/31/2013 Overview: Has been seen at [facility], rheumatology Dr. Valero as well as Dr. Murphy, Dr. Finch, now seeing Dr Brady at [facility]; also Dr Sanders 02/05/2022 under the care of [facility] in [place]. CBC, ESR, CRP, creatinine, AST and ALT ordered at that visit. Plan is to continue with Cimzia 400 mg SC monthly. OCD (obsessive compulsive disorder) 11/10 Depression 10/21/2012 Overview: History SI- IP Admits Nephrolithiasis 01/12/2012 Overview: Noted December 2011 Last Assessment & Plan: [facility] 12/21 2 mm right ureteric stone ADHD (attention deficit hyperactivity di sorder) 07/24/2011 Asthma 07/24/2011 Anxiety 07/24/2011 Migraine with aura- occular migraine Overview: Dr Flowers Resolved Problems Problem Noted Date Resolved Date screening for streptococcus B 07/20/19 23 07/20/2022 Supervision of normal first 01/19/2022 09/18/2022 Overview: 1. [facility] site: [place] 2. Delivery site: [facility] 3. Mobile Mommas: No 4. Dating criteria: [...] Flu - Date: Declines- April 2022 in [facility] D. Breast or Bottle feed: breast [...] Vaccine-quadrivale nt 4 Years Plus 06/18/2017 MMR (Rnnrsoi-Abolz-Rtukbfm) 10/17/1997, 4 Meningococcal (Menactra) 01/28/2007 Polio (OPV) 10/17/1997, 4,04/25/1993,12/24 TD (STATE SUPPLIED FOR ADULT S AND CHILDREN) 11/26/2020,12/20/2003 Tdap 06/05/2022,04/23/2009 Varicella 04/23/2009,03/09/1995 Family History Medical History Relation Name Comments [place] Breast Aunt paternal side Paternal aunt Cancer of the Breast Aunt paternal side great aunt Crohn's Disease Father Depression/Anxiety Father kidney stones Father gallbladder di sease [place] Prostate Maternal Grandfather Depression/Anxiety Maternal Grandfather [place] Maternal Grandfather Stroke Maternal Grandfather Thyroid Disorder [...] 11/26/2020, 04/23/2009, Additional history exists Care Teams Edge Cutter Relationship Specialty Start Date End Date Cassius Alvarez MD PCP - General Internal Medicine 01/20/23
--- OUTSIDE RECORDS SUMMARY | 2024-09-21 15:24 | XMS_ITS | Encounter Summary ---
Author Organization [employer] [facility] Address [address] [place] [address] Care Team Providers Care Price Clerk Name Role Phone Cassius Alvarez MD Primary Care Provider Unavail able Reason for Visit * Reason Comments E-prescribe Rx Request Encounter Details Date Type Department Care Team Description 05/09/2024 Refill Bariatric Surgery - [place] 175 [facility] [address] [place] [address] Shanti Rivero PA-C 271 [facility] [address] [place] [address] E-prescribe Rx Request Social History [...] on filedocumented in this encounter Care Teams Price Clerk Relationship Specialty Start Date End Date Cassius Alvarez MD PCP - General Internal Medicine 01/20/23 documented as of this encounter
--- OUTSIDE RECORDS SUMMARY | 2024-09-21 15:24 | XMS_ITS | Encounter Summary ---
Author Organization [facility] Address [address] [place] [address] Care Team Providers Care Investment Accountant Name Role Phone Neli Andrews MD Primary Care Provider Debora Brian Johnston PA-C Primary Care Provider Unavail able Cassius Alvarez MD Primary Care Provider Unavail able [facility], Pcp Primary Care Provider UnavailCassius Schmitz MD Primary Care Provider Unavail able [facility], Pcp Primary Care Provider Cassius Guevara MD Primary Care Provider Unavail able Encounter Details Date Type Department Care Team Description 03/18/2018 Business [facility] Medical Records [address] [place] [id number] Abstract, Provider Social History Tobacco Use Types [...] documented as of this encounter Care Teams Investment Accountant Relationship Specialty Start Date End Date Neli [...]
--- OUTSIDE RECORDS SUMMARY | 2024-09-21 15:24 | XMS_ITS | Encounter Summary ---
Author Organization [facility] Address [address] [place] [address] Care Team Providers Care Neck Band Setter Name Role Phone Neli Andrews MD Primary [...] Details Date Type Department Care Team Description 03/12/2021 Stripe Marker Report Medical Records [address] [place] [id number] Prashant Brady MD Social History Tobacco Use [...] documented as of this encounter Care Teams Neck Band Setter Relationship Specialty Start Date End Date Neli [...]
--- OUTSIDE RECORDS SUMMARY | 2024-09-21 15:24 | XMS_ITS | Encounter Summary ---
Author Organization [facility] Address [address] [place] [address] Care Team Providers Care C++ Quant Developer Name Role Phone Neli Andrews MD Primary Care Provider Debora Brian Johnston PA-C Primary Care Provider Unavail able Cassius Alvarez MD Primary Care Provider Unavail able [facility], Pcp Primary Care Provider UnavailCassius Schmitz MD Primary Care Provider Unavail able [facility], Pcp Primary Care Provider Cassius Guevara MD Primary Care Provider Unavail able Encounter Details Date Type Department Care Team Description 10/29/2018 [facility] Medical Records [address] [place] [address] Social History Tobacco Use Types Packs/Day Years [...] documented as of this encounter Care Teams C++ Quant Developer Relationship Specialty Start Date End Date Neli Andrews MD PCP - General Internal Medicine 03/18/18 1 Luszcz, Brian, PA-C PCP - General Med/Peds 03/25/21 04/02/21 [...]
--- OUTSIDE RECORDS SUMMARY | 2024-09-21 15:24 | XMS_ITS | Encounter Summary ---
Author Organization [facility] [place] [address] Care Team Providers Care Patient Service Rep Name Role Phone Cassius Alvarez MD Primary Care Provider [phone] Encounter Details Date Type Department Care Team (Late st Contact Info) Description 05/08/2024 8:31 AM EDT Hospital Encounter TH HISTORIC ENCOUNTERS EASTERN CONVERSION ONLY Chelsea Singh MD [address] [place] [id number] Social History Tobacco Use Types Packs/Day Years [...] single, she had 1 child who is [id number] FAMILY HISTORY: Noncontributory Current Outpatient Medications: ??? [...] 11:30 AM EDT Office Visit Gastroenterology - [place] 175 [facility] 175 [facility] 200 [place] [phone] Anny Vogel PA 175 [facility] 200 [place] [address] 10/16/2024 8:30 AM EDT Office Visit Bariatric Surgery - [place] 175 [facility] 120 [place] [phone] Dayana Frost MD 175 [facility] 120 [place] [phone] 10/17/2024 8:00 AM EDT Appointment [facility] [address] [place] [phone] Blanco Sanders DO 1120 [facility] 102 [place] [address] 11/29/2024 1:30 PM EDT Office Visit Obstetrics and Gynecology - [place] [address] [place] [address] Jewels Rogers CNM [address] [place], [place] documented as of this encounter Procedures Procedure Name Priority Date/Time Associated Diagnosis Comments ..MISCELLANEOUS REFERENCE LAB TEST 05/08/2024 documented in this encounter Results * Miscellaneous reference lab test (05/08/2024) us Provider Onbase MD LAB BLOOD ORDERABLES Final Re sult documented in this encounter Visit Diagnoses Not on filedocumented in this encounter Care Teams Patient Service Rep Relationship Specialty Start Date End Date Cassius Alvarez MD PCP - General Internal Medicine 04/03/21 06/06/24 documented as of this encounter
--- OUTSIDE RECORDS SUMMARY | 2024-09-21 15:24 | XMS_ITS | Encounter Summary ---
Author Organization [facility] Address [address] [place] [address] Care Team Providers Care Offset Lithographic Press Operator Name Role Phone Cassius Alvarez MD Primary Care Provider Unavail able [facility], Pcp Primary Care Provider Cassius Guevara MD Primary Care Provider Unavail able [facility], Pcp Primary Care Provider Unavailabl Cassius Heaton MD Primary Care Provider Unavail able Encounter Details Date Type Department Care Team Description 04/09/2021 Corporate Account Executive Report Medical Records [address] [place] [address] Zane Flowers MD Social History Tobacco Use [...] documented as of this encounter Care Teams Offset Lithographic Press Operator Relationship Specialty Start Date End Date [...]
== END 2024-09-21 11:53 | disposition home or self-care (01) ==
LOC: HO.HOP 11:53
PROVIDERS: PCP Internal Medicine; Visit Provider Clinical Nurse Specialist Psychiatric/Mental Health
DX: F33.2 Major depressive disorder, recurrent severe without psychotic features (principal); F42.2 Mixed obsessional thoughts and acts; R41.840 Attention and concentration deficit; F43.10 Post-traumatic stress disorder, unspecified
CPT/HCPCS: 99214

== ENCOUNTER → 2024-09-21 11:53 | Outpatient (BNVA) | payer OTHER, SELFPAY | PROVIDERS: PCP Internal Medicine; Visit Provider Clinical Nurse Specialist Psychiatric/Mental Health ==

== ENCOUNTER 2024-10-06 09:40 | Outpatient (REF) | payer OTHER, SELFPAY ==
--- NOTE | ~2024-10-06 | XR_ITS ---
EXAMINATION: XR SACROILIAC JOINTS CLINICAL INFORMATION: M45.8 - Ankylosing spondylitis sacral and sacrococcygeal region COMPARISON: None available. TECHNIQUE: 3 views of the sacroiliac joints FINDINGS: Fracture, dislocation, or suspicious bone lesion. There is mild arthritis in the right greater than left SI joints. There are no gross erosions evident. The sacral arches are intact. Imaged hip joints appear normal. Normal-appearing soft tissues. XR/XR sacroiliac joint min 3V IMPRESSION: Mild right greater than left arthritis in the SI joints. No gross erosive arthritis identified. Electronically signed by: Adilson Kitchen MD 10/06/2024 11:08 AM EDT
--- NOTE | ~2024-10-06 | XR_ITS ---
EXAMINATION: XR THORACIC SPINE CLINICAL INFORMATION: Chronic back pain. COMPARISON: None available. TECHNIQUE: 2 views of the thoracic spine were obtained. FINDINGS: No significant scoliosis. Normal kyphosis. No compression deformity, acute fracture, or suspicious bone lesion. There is anatomical alignment without subluxation. Very mild disc degeneration noted in the mid to inferior thoracic spine. Normal facet alignment and appearance. Soft tissues demonstrate surgical epifanio in the region of the stomach and right upper quadrant. The imaged mediastinal structures and lungs appear normal. XR/XR thoracic spine 2V IMPRESSION: 1. No acute findings of the thoracic spine. Mild degenerative disc changes. Electronically signed by: Adilson Kitchen MD 10/06/2024 11:04 AM EDT
--- NOTE | ~2024-10-06 | XR_ITS ---
EXAMINATION: XR LUMBOSACRAL SPINE CLINICAL INFORMATION: M45.8 - Ankylosing spondylitis sacral and sacrococcygeal region COMPARISON: 03/19/2023. TECHNIQUE: Three views of the lumbosacral spine. FINDINGS: No scoliosis. Normal lordosis. Normal bone mineralization. No fracture, compression deformity, subluxation, or suspicious bone lesion. Disc spaces appear preserved. Facets are normally aligned without significant facet arthrosis. There are mild arthritic changes in the right greater than left SI joints. No evidence of ankylosis. There are surgical clips in the right upper quadrant and epigastric region. Soft tissues appear normal. XR/XR lumbar spine 2-3V IMPRESSION: Normal-appearing lumbar spine. Electronically signed by: Adilson Kitchen MD 10/06/2024 11:07 AM EDT
[2024-10-06 13:51] LABS: C Reactive Protein 0.97 mg/dL (< or = 0.50)
[2024-10-06 14:37] LABS: Erythrocyte Sedimentation Rate 53 MM/HR (0-20)
== END 2024-10-06 09:41 | disposition home or self-care (01) ==
LOC: HO.HMGCX 09:40
PROVIDERS: PCP Internal Medicine; Visit Provider Internal Medicine Rheumatology
DX: M45.8 Ankylosing spondylitis sacral and sacrococcygeal region (principal); Z79.899 Other long term (current) drug therapy
CPT/HCPCS: 36415; 72070; 72100; 72202; 85652; 86140

== ENCOUNTER → 2024-10-06 09:45 | Outpatient (BNV) | payer OTHER, SELFPAY | PROVIDERS: PCP Internal Medicine; Visit Provider Radiology Diagnostic Radiology | DX: M45.8 Ankylosing spondylitis sacral and sacrococcygeal region (principal); M54.9 Dorsalgia, unspecified | CPT/HCPCS: 72070; 72100; 72202 ==

== ENCOUNTER 2024-10-23 10:47 | Outpatient (AMB) | payer OTHER, SELFPAY ==
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
--- OUTSIDE RECORDS SUMMARY | 2024-10-23 12:35 | XMS_ITS | Encounter Summary ---
Author Organization [facility] Address [address] [place] [address] Care Team Providers Care Manager Managed Care Name Role Phone Cassius Alvarez MD Primary Care Provider [phone] Encounter Details Date Type Department Care Team (Latest Contact Info) Description 08/21/2024 Lab Requisition [facility] - Main Lab [address] [place] [address] Donald Wall, GUICHO [address] [facility] 120 [place] [address] Hydronephrosis with renal and ureteral calculous obstruction [...] PM EDT Office Visit Bariatric Surgery - [address] [place] [phone] Dayana Frost MD [address] [place] [address] 120 [place] [phone] 10/31/2024 10:30 AM EDT Office Visit Gastroenterology - [place] [address] [place] [phone] Anny Vogel PA 175 [facility] 200 [place] [address] 11/29/2024 1:30 PM EDT Office Visit Obstetrics and Gynecology [address] [phone] Jewels Rogers, OG [address] [place], [place] documented as of this encounter Procedures Procedure Name Priority Date/Time Associated Diagnosis Comments PARATHYROID HORMONE INTACT Routine 08/21/2024 10:22 AM EST Hydronephrosis with renal and ureteral calculous obstruction documented in this encounter Results * Parathyroid hormone intact (08/21/2024 10:22 AM EST) PTH 54.2 18.5 - 88.0 pcg/mL LAB CHEMISTRY METHOD 08/21/2024 2:11 PM EST [facility] LAB Blood Venous blood specimen / Unknown 08/21/2024 10:22 AM EST 08/21/2024 1:17 PM EST us Donald Wall PA LAB BLOOD ORDERABLES Final Res ult [facility] [address] [place] [address], documented in this encounter Visit Diagnoses Diagnosis Hydronephrosis with renal and ureteral calculous obstruction documented in this encounter Care Teams Manager Managed Care Relationship Specialty Start Date End Date Cassius Alvarez MD [address] [place] [address] PCP - General Internal Medicine 06/07/24 documented as of this encounter
--- OUTSIDE RECORDS SUMMARY | 2024-10-23 12:35 | XMS_ITS | Encounter Summary ---
Author Organization [facility] Address [address] [place] [address] Care Team Providers Care Insurance Legal Assistant Name Role Phone Cassius Alvarez MD Primary Care Provider Reason for Referral * Pain Management (Routine) - Closed Specialty Diagnoses / Procedures Referred By Contac t Referred To Contact Pain Medicine Diagnoses Radiculopathy, thoracic region Sacroiliitis, not elsewhere classified (CMS/HCC V24) Procedures Injection epidural thoracic without guidance Blanco Sanders DO [address] [place] [address] Phone: tel: fax: Referral ID Status Reason Start Date Expiration Date Visits Re quested Visits Authorized [id number] Closed 09/06/2024 09/06/2025 1 1 Reason for Visit * Pain Management (Routine) - Closed Specialty Diagnoses / Procedures Referred By Contac t Referred To Contact Pain Medicine Diagnoses Radiculopathy, thoracic region Sacroiliitis, not elsewhere classified (CMS/HCC V24) Procedures Injection epidural thoracic without guidance Blanco Sanders DO [address] [place] [address] Phone: tel: fax: Referral ID Status Reason Start Date Expiration Date Visits Re quested Visits Authorized [id number] Closed 09/06/2024 09/06/2025 1 1 Encounter Details Date Type Department Care Team (Latest Contact Info) Description 10/17/2024 6:39 AM EDT - 10/17/2024 11:59 PM EDT Hospital Encounter [facility] Pain Management [address] [place] [phone] Blanco Sanders DO [address] [facility] [address] [place] [address] Jordin Salvador MD [address] [place] [phone] Ruthy Batres CRNA [address] [place] [phone] Radiculopathy, thoracic region; Sacroiliitis, not elsewhere classified (CMS/HCC V24) Discharge Disposition: Home or Self Care Social [...] Sign Reading Time Taken Comments Blood Pressure 97/64 10/17/2024 9:12 AM EDT Pulse 66 10/17/2024 9:12 AM EDT Temperature 36.9 ??C (98.4 ??F) 10/17/2024 8:48 AM ED T Respiratory Rate 14 10/17/2024 8:48 AM EDT Oxygen Saturation 97% 10/17/2024 9:12 AM EDT Inhaled Oxygen Concentration - - Weight 90.7 kg (200 lb) 10/17/2024 7:04 AM EDT Height 160 cm (5' 3 ) 10/17/2024 7:04 AM EDT Body Mass Index 35.43 10/17/2024 7:04 AM EDT documented in this encounter Functional [...] Jessica Cerrato RN documented in this encounter Discharge Instructions * Attachments The following attachments cannot be sent through Care Everywhere. * Soft Tissue Injection for Pain (Ivorian) documented in this encounter Medications at Time [...] DAILY medical supply, miscellaneous (MISCELLANEOUS MEDICAL SUPPLY [facility]) GLUCOSE BLOOD TEST STRIPS (ASCENSIA [...] or Self Care documented in this encounter H&P Notes * Blanco Sanders DO - 10/17/2024 8:00 AM EDT Please refer to our office notes for complete details of history of present illness and physical examination. They were reviewed. No changes are reported. documented in this encounter Procedure Notes * Rob Bustillo RN - 10/17/2024 8:00 AM EDT [phone] * Aletha Jasso RN - 10/17/2024 8:00 AM EDT Md at bedside speaking with patient Discharge instructions reviewed with stated understanding * Blanco Sanders DO - 10/17/2024 8:00 AM EDT Procedure performed: Bilateral sacroiliac joint injections Pre-op diagnosis: Sacroiliac joint pain Postop diagnosis: Sacroiliac joint pain Anesthesia: MAC Procedure in detail: After informed consent was obtained patient was brought into the procedure room and placed in the prone position on the procedure table. Skin over sacroiliac joint was prepped and draped in usual sterile manner. Right SI joint was visualized utilizing fluoroscopy. 3.5 inch 22-gauge spinal needle was introduced percutaneously and advanced toward the inferior pole of the SI joint. Needle placement was verified utilizing 1 cc of Isovue contrast solution. Total volume of 2.5 cc containing 20 mg of triamcinolone and 0.5% Marcaine was injected after negative aspiration for blood. The C-arm was obliqued 30 degrees and contralateral direction and area just medial to the proximal portion of the SI joint was visualized. 3.5 inch 22-gauge spinal needle was introduced percutaneously and advanced toward the area. Needle placement was verified utilizing 2 cc of Isovue contrast solution. Total volume of 2.5 cc containing 20 mg of triamcinolone and 0.5% Marcaine was injected after negative aspiration for blood to block S1-S3 lateral branches of the sacroiliac ligament. The identical procedure was repeated on the left side. Patient tolerated procedure very well without complications. She was transported to the postoperative area where she was observed and soon thereafter discharged home in stable condition accompanied by family member. Radiation exposure was documented in the chart. * Blanco Sanders DO - 10/17/2024 8:00 AM EDT Procedure performed: T12-L1 epidural steroidal injection Pre-op diagnosis: Lumbar radiculitis Postop diagnosis: Same Physician: Blanco Sanders DO Anesthesia: MAC Procedure in detail: After informed consent was obtained patient was brought into the procedure room and placed in the prone position on the procedure table. T12-L1 interlaminar space was visualized utilizing fluoroscopy. Skin was prepped and draped in usual sterile manner. After skin was anesthetized with 1% lidocaine solution 4 inch 20-gauge Touhy epidural needle was introduced percutaneously and advanced into theepidural space at the level indicated utilizing [id number] technique. 3 cc of Isovue contrast solution were utilized for needle placement verification. Excellent epidural spread was obtained without evidence of vascular uptake. Total volume of 8 cc containing 2 cc of 1% lidocaine, 40 mg of triamcinolone and normal saline solution were injected after negative aspiration for blood and cerebrospinal fluid. Patient tolerated procedure very well without complications. Patient was transported to the recovery room for observation and soon thereafter was discharged home in stable condition accompanied by family. Postprocedure instructions were provided. Radiation exposure was documented in the chart. documented in this encounter Plan of Treatment Upcoming Encounters Date Type Department Care Team (Late st Contact Info) Description 10/24/2024 3:45 PM EDT Office Visit Bariatric Surgery - [place] [address] [facility] [address] [place] [address] Dayana Frost MD [address] [facility] [address] [place] [phone] 10/31/2024 10:30 AM EDT Office Visit Gastroenterology - [place] [address] [facility] [address] [facility] [address] [place] [address] Anny Vogel PA [address] [place] [address] 11/29/2024 1:30 PM EDT Office Visit Obstetrics and Gynecology - [place] [address] [place] [address] Jewels Rogers, ANA [address] [place], [place] Scheduled Orders Name Type Priority Associated Diagnoses Orde r Schedule Injection epidural thoracic without guidance Procedures Routine Radiculopathy, thoracic region Sacroiliitis, not elsewhere classified (CMS/[facility] V24) Once for 1 Occurrences starting 10/17/2024 until 10/17/2024 ECG 12 lead - Procedural (No Charge) ECG Routine Once for 1 Occurrences starting 10/17/2024 until 10/17/2024 documented as of this encounter Procedures Procedure Name Priority Date/Time Associated Diagnosis Comments POC PREGANCY, URINE SCREENING Routine 10/17/2024 7:37 AM EDT documented in this encounter Results * POC , urine NO CHARGE screening manually resulted (10/17/2024 7:37 AM EDT) HCG, Ur POC Negative Negative POC hCG Int QC Pass? Yes Yes Urine Urine specimen obtained by clean catch procedure / Unknown 10/17/2024 7:37 AM EDT Jordin Salvador MD POINT OF CARE TEST ENTER/EDIT ORDERABLES Final Result documented in this encounter Visit Diagnoses Diagnosis Radiculopathy, thoracic region Thoracic or lumbosacral neuritis or radiculitis, unspecified Sacroiliitis, not elsewhere classified (CMS/HCC V24) Sacroiliitis, not elsewhere classified documented in this encounter Administered Medications Inactive Administered Medications - up to 3 most recent administrations Medication Order MAR Action Action Date Dose Rate Site iopamidoL (ISOVUE-300) 300 mg iodine /mL (61 %) solution As needed, Starting on Wed10/17/24 at 0832, Intraprocedure Given 10/17/2024 8:32 AM EDT 3 mL lidocaine (XYLOCAINE) 1 % injection As needed, Starting on Wed10/17/24 at 0831, Intraprocedure Given 10/17/2024 8:31 AM EDT 7 mL triamcinolone acetonide (KENALOG-40) 40 mg/mL injection As needed, Starting on Wed10/17/24 at 0832, Intraprocedure Given 10/17/2024 8:32 AM EDT 120 mg documented in this encounter Discontinued Medications Medication Sig Discontinue Reason Start Date End Da te risperiDONE (RisperDAL) 0.5 mg tablet Take 1 tablet (0.5 mg total) by mouth 2 (two) times a day. Stop Taking at Discharge 10/17/2024 pyridoxine (VITAMIN B-6) 25 mg tablet TAKE 1 TABLET BY MOUTH FOUR TIMES DAILY BEFORE MEALS AND AT NIGHT Stop Taking at Discharge 04/13/2022 10/17/2024 hydrOXYzine HCL (ATARAX) 25 mg tablet TAKE 2 TABLETS BY MOUTH AT BEDTIME. MAY TAKE ADDITIONAL 25 MG IF AWAKE IN 1 HOUR Stop Taking at Discharge 07/22/2020 10/17/2024 mometasone (NASONEX) 50 mcg/actuation nasal spray 2 Sprays by Nasal route daily for 30 days. Replaces flonase Stop Taking at Discharge 08/25/2017 10/17/2024 buPROPion XL (WELLBUTRIN XL) 150 mg 24 hr tablet Stop Taking at Discharge 06/11/2024 10/17/2024 documented as of this encounter Orders Medications Ordered That Joss ht Not Have Been Administered Count Last Ordered Date First Ordered Date lactated Ringer's infusion 1 10/17/2024 sodium chloride 0.9 % flush 10 mL 2 025 Discharge Count Last Ordered Date First Orde red Date DISCHARGE PATIENT 1 10/17/2024 documented in this encounter Care Teams Insurance Legal Assistant Relationship Specialty Start Date End Date Cassius Alvarez MD [address] [place] [phone] PCP - General Internal Medicine 06/07/24 documented as of this encounter
--- OUTSIDE RECORDS SUMMARY | 2024-10-23 12:35 | XMS_ITS | Encounter Summary ---
Author Organization [facility] [place] [address] Care Team Providers Care Hop Strainer Name Role Phone Cassius Alvarez MD Primary Care Provider [phone] Encounter Details Date Type Department Care Team (Late st Contact Info) Description 05/08/2024 8:31 AM EDT Hospital Encounter TH HISTORIC ENCOUNTERS EASTERN CONVERSION ONLY Chelsea Singh MD [address] [place] [phone] Social History Tobacco Use Types Packs/Day Years [...] single, she had 1 child who is [id number] FAMILY HISTORY: Noncontributory Current Outpatient Medications: ??? [...] PM EDT Office Visit Bariatric Surgery - [place] [address] [facility] [address] [place] [phone] Dayana Frost MD [address] [facility] [address] [place] [phone] 10/31/2024 10:30 AM EDT Office Visit Gastroenterology - [place] [address] [facility] [address] [facility] [address] [place] [phone] Anny Vogel PA [address] [facility] [address] [place] [address] 11/29/2024 1:30 PM EDT Office Visit Obstetrics and Gynecology - [address] [address] Jewels Rogers, ANA [address] [place] [address] documented as of this encounter Procedures Procedure Name Priority Date/Time Associated Diagnosis Comments ..MISCELLANEOUS REFERENCE LAB TEST 05/08/2024 documented in this encounter Results * Miscellaneous reference lab test (05/08/2024) us Provider Onbase LAB BLOOD ORDERABLES Final Re sult documented in this encounter Visit Diagnoses Not on filedocumented in this encounter Care Teams Hop Strainer Relationship Specialty Start Date End Date Cassius Alvarez MD PCP - General Internal Medicine 04/03/21 06/06/24 documented as of this encounter
--- OUTSIDE RECORDS SUMMARY | 2024-10-23 12:35 | XMS_ITS | Patient Health Record ---
Author Organization [facility] Address [address] [place] [address] REASON FOR REFERRAL No Information PLAN OF TREATMENT No Information Insurance Providers Payer Name Payer Address Payer Phone Subscriber Number Group Number Insured Name Patient Relationship to Insured Coverage Start Date Coverage End Date [employer]Angie or Options [address] [id number] DAINA ARENAS Self - patient is the insured
--- OUTSIDE RECORDS SUMMARY | 2024-10-23 12:36 | XMS_ITS ---
Author Organization [facility] Address [address] [place] [address] Care Team Providers Care Collar Shaper Operator Name Role Phone MERLOS, NAYANAYOLY Unavailable [phone] Encounters Encounter Location Date Provider Diagnosis [facility] [address] [place] [address] 05/12/2023 AMOS MERLOS PLAN OF TREATMENT No Information Progress Notes * SHABBIR ARENASOB: 3 (32 yo F)Acc No.[id number]:05/12/2023 Patient:??DAINA ARENAS :1990?Age:32 Y?Sex:Fe male Address:[address] [place] [id number] * true * Date:??
--- OUTSIDE RECORDS SUMMARY | 2024-10-23 12:36 | XMS_ITS | Clinical Summary ---
Author Organization [facility] Address [address] [place] [address] Phone Care Team Providers Care Press Machine Operator Name Role Phone Cassius Alvarez MD Primary Care Provider [phone] Allergies Active Allergy Reactions Criticality Noted Date Comments Infliximab Headache High 04/16/2021 Other reaction(s): Headaches, SEVERE HEADACHE Other Low 01/19/2022 Seasonal - Other Reaction(s): Runny Nose/Rhinitis Along with some wheezing and dry cough- takes zyrtec. Medications medical supply, miscellaneous (MISCELLANEOUS MEDICAL SUPPLY [...] mouth 1 (one) time each day. Active albuterol HFA (PROAIR HFA ; PROVENTIL HFA ; VENTOLIN HFA) 90 mcg/actuation inhaler Inhale 2 Puffs into the lungs every 4 hours as needed for Cough or Wheezing for up to 30 days. 09/02/19 22 Active mirtazapine (REMERON) 15 mg tablet 22.5 mg. 06/18/20 21 Active albuterol 2.5 mg /3 mL (0.083 [...] BLOOD SUGAR TWICE DAILY 04/13/20 24 Active clonazePAM (KlonoPIN) 0.5 mg tablet Take [...] 90 tablet 11 07/25/19 25 026 Active esomeprazole (NexIUM) [address] capsule TAKE 1 CAPSULE(40 MG) BY MOUTH 1 TIME EACH DAY BEFORE BREAKFAST. DO NOT OPEN CAPSULE 90 capsule 3 09/13/19 25 Active ondansetron ODT (ZOFRAN-ODT) 4 mg disintegrating tabletIndications: Nausea Dissolve 1 tablet (4 mg total) on top of the tongue every 8 (eight) hours if needed for nausea or vomiting. 30 tablet 2 10/06/19 25 Active risperiDONE (RisperDAL) 0.5 mg tablet Take 1 tablet (0.5 mg total) by mouth 2 (two) times a day. 025 Discontin ued(Stop Taking at Discharge ) pyridoxine (VITAMIN B-6) 25 mg tablet TAKE 1 TABLET BY MOUTH FOUR TIMES DAILY BEFORE MEALS AND AT NIGHT 04/13/20 22 025 Discontin ued(Stop Taking at Discharge ) hydrOXYzine HCL (ATARAX) 25 mg tablet TAKE 2 TABLETS BY MOUTH AT BEDTIME. MAY TAKE ADDITIONAL 25 MG IF AWAKE IN 1 HOUR 07/22/19 21 025 Discontin ued(Stop Taking at Discharge ) mometasone (NASONEX) 50 mcg/actuation nasal spray 2 Sprays by Nasal route daily for 30 days. Replaces flonase 08/25/19 18 025 Discontin ued(Stop Taking at Discharge ) buPROPion XL (WELLBUTRIN XL) 150 mg 24 hr tablet 06/11/20 24 025 Discontin ued(Stop Taking at Discharge ) ondansetron ODT (ZOFRAN-ODT) 4 mg disintegrating tabletIndications: Nausea Dissolve 1 tablet (4 mg total) on top of the tongue every 8 (eight) hours if needed for nausea or vomiting. 20 tablet 2 09/06/19 25 025 Discontin ued(Reord er) Active Problems [...] reading 06/17/2022 Overview (04/26/2024): 06/17/2022 seen in [facility] ED and [facility] triage for SOB, [...] Bladder spasms 04/22/2022 Overview (04/26/2024): Went to [facility] on 03/25- discharged stable, advised to [...] cyst 11/25/2018 Overview (04/26/2024): 11/04/18 Presented to [facility] ED for abdominal pain. CT scan showed [...] her ferritin; follow-up in a few months [facility] Polysomnogram: Date 04/05/2019; Wt [...] related hypoventilation by 2019 polysomnogram. Ankylosing spondylitis ([facility] V24, CMS/[facility] V28 ) 03/31/2013 Overview (04/26/2024): Has been seen at [facility], rheumatology Dr. Valero as well as Dr. Murphy, Dr. Finch, now seeing Dr Brady at [facility]; also Dr Sanders 02/05/2022 under the care of [facility] in [place]. CBC, ESR, CRP, creatinine, AST and ALT ordered at that visit. Plan is to continue with Cimzia 400 mg SC monthly. OCD (obsessive compulsive disorder) 11/30/2012 Depression 10/21/2012 Overview (04/26/2024): History SI- IP Admits Nephrolithiasis 01/12/2012 Overview (04/26/2024): Noted December 2011 Last Assessment & Plan: [facility] 12/21 2 mm right ureteric stone ADHD (attention deficit hyperactivity disorder) 07/24/2011 Anxiety 07/24/2011 Asthma 07/24/2011 Migraine with aura 07/24/2011 Overview (04/26/2024): Dr Flowers Encounters Date Type Department Care Team Description 10/17/2024 8:10 AM EDT Anesthesia Event [facility] [address] [place] [phone] Jordin Salvador MD 10/17/2024 7:23 AM EDT - 10/17/2024 11:59 PM EDT Hospital Encounter [facility] Xray [address] [place] [phone] Pain Discharge Disposition: Home or Self Care 10/17/2024 6:39 AM EDT - 10/17/2024 11:59 PM EDT Hospital Encounter [facility] [address] [place] [address] Blanco Sanders DO Saliga, Jesse L, MD Sobo, Kathleen, TRE Radiculopathy, thoracic region; Sacroiliitis, not elsewhere classified (CMS/[facility] V24) Discharge Disposition: Home or Self Care 10/09/2024 9:42 AM EDT Anesthesia Event [facility] Endoscopy [address] [place] [phone] Jordin Salvador MD 10/09/2024 8:26 AM EDT - 10/09/2024 11:59 PM EDT Hospital Encounter [facility] [address] [place] [phone] Patrick Garcia DO Swanson, Mona, CRNA Saliga, Jesse L, MD Nausea; Gastroesophageal reflux disease, unspecified whether esophagitis present Discharge Disposition: Home or Self Care 10/05/2024 11:30 AM EDT Office Visit Gastroenterology - [place] [address] [place] [phone] Anny Vogel PA S/P bariatric surgery; Nausea; Gastroesophageal reflux disease, unspecified whether esophagitis present 08/21/2024 Lab Requisition [facility] - Main Lab [address] [facility] [place] [phone] Donald Wall PA Hydronephrosis with renal and ureteral calculous obstruction 08/14/2024 8:30 AM EST Office Visit Bariatric Surgery - [place] [address] [place] [address] Dayana Frost MD S/P bariatric surgery (Primary Dx); Hx of hypoglycemia; Dumping syndrome; Obesity, Class II, BMI 35-39.9 08/01/2024 7:52 AM EST - 08/01/2024 11:59 PM EST Hospital Encounter [facility] Nuclear Medicine [address] [place] [address] S/P bariatric surgery Discharge Disposition: Home or Self Care 07/26/2024 10:30 AM EST Office Visit Obstetrics and Gynecology [facility] [address] [place] [address] Shannon He MD Breakthrough bleeding on control pills (Primary Dx); Paratubal cyst from Last 3 Months Immunizations Name Administration Dates Next Due DTP 04/25/1993,02/23/1993,1992 [id number] (Pentacel) 2mo to less than 5yo 02/23/1994,04/25/1993,02/23/1993,12/24 [...] live (Varivax) 12m o and older 04/23/2009,03/09/1995 Surgical History Surgery Date Site/Laterality Comments GASTRIC BYPASS ESOPHAGOGASTRODUODENOSCOPY BARIATRIC SURGERY CHOLECYSTECTOMY HERNIA REPAIR Medical History Medical History Date Comments Anxiety Depression GERD (gastroesophageal reflux disease) Asthma Arthritis Thoracic radiculopathy Family History Medical History Relation Name Comments [...] Term 37w 6d M Vag-S pont Living Last Filed Vital Signs Vital Sign Reading [...] Mass Index 35.43 10/17/2024 7:04 AM EDT Plan of Treatment Upcoming Encounters Date Type Department Care Team (Late st Contact Info) Description 10/24/2024 3:45 PM EDT Office Visit Bariatric Surgery - [place] 175 [facility] [address] [place] [address] Dayana Frost MD 175 [facility] [address] [place] [phone] 10/31/2024 10:30 AM EDT Office Visit Gastroenterology - [place] 175 [facility] 175 [facility] [address] [place] [phone] Anny Vogel PA 175 [facility] [address] [place] [address] 11/29/2024 1:30 PM EDT Office Visit Obstetrics and Gynecology [address] [phone] Jewels Rogers, ANAM [address] [place], [place] Health Maintenance Due Date Last Done Comments [...] Completed 10/17/1997, 04/11, 02/23/1994, Additional history exists MMR Vaccines Completed 10/17/1997, 10/24/1993 Meningococcal ACWY Vaccine Aged Out 01/28/2007 N o longer eligible based on patient's age to complete this topic HPV Vaccines Completed 08/08/2007, 03/13, 01/28/2007 Varicella Vaccines Completed 04/23/2009, 03/09/1995 HIV Screening Completed 01/27/2022 Hepatitis C Screening Completed 01/27/2022 Influenza Vaccine Completed 05/24/2024, , 04/18/2022, Additional history exists Hepatitis A Vaccines Aged Out No long er eligible based on patient's age to complete this topic Meningococcal B Vaccine Aged Out No l onger eligible based on patient's age to complete this topic RSV Immunization Patients Under 20 months Aged Out No longer eligible based on patient's age to complete this topic Procedures Procedure Name Priority Date/Time Associated Diagnosis Comments POC PREGANCY, URINE SCREENING Routine 10/17/2024 7:37 AM EDT EGD Routine 10/09/2024 10:03 AM EDT Nausea Gastroesophageal reflux disease, unspecified whether esophagitis present TISSUE EXAM Routine 10/09/2024 9:54 AM EDT Nausea Gastroesophageal reflux disease, unspecified whether esophagitis present PARATHYROID HORMONE INTACT Routine 08/21/2024 10:22 AM EST Hydronephrosis with renal and ureteral calculous obstruction NM HEPATOBILIARY SYSTEM IMAGING Routine 08/01/2024 10:23 AM EST S/P bariatric surgery LIPID PANEL Routine 05/21/2023 HM HPV Routine 09/28/2022 HEPATITIS C SCREENING Routine 01/27/2022 HIV SCREENING Routine 01/27/2022 from Last 3 Months or Most Recently Relevant to Health Maintenance Results * POC , urine NO CHARGE screening manually resulted (10/17/2024 7:37 AM EDT) HCG, Ur POC Negative Negative POC hCG Int QC Pass? Yes Yes Urine Urine specimen obtained by clean catch procedure / Unknown 10/17/2024 7:37 AM EDT Jordin Salvador MD POINT OF CARE TEST ENTER/EDIT ORDERABLES Final Result * EGD Dilation; Anesthesia - MAC; [facility]UST ENDOSCOPY (10/09/2024 10:03 AM EDT) Anatomical Region Laterality Modality Endoscopy 10/09/2024 9:41 AM EDT Impressions 10/09/2024 10:01 AM EDT - Gastric bypass. Gastrojejunal anastomosis ? characterized by healthy appearing mucosa. ? - Normal esophagus. ? - Jejunal stenosis. Dilated. ? - Erythematous mucosa in the stomach. Biopsied. Recommendation: ?- Discharge patient to home. ? - Resume previous diet. ? - Continue present medications. ? - Await pathology results. ? - Mild true limb entrance anastomosis. The GJ limb is ? normal. No obstruction seen. I do not believe her ? chronic nausea is related to this - very mild - ? apparent stenosis. Narrative 10/09/2024 10:01 AM EDT [facility] GI Patient Name: Jia Valdez Procedure Date: 10/09/2024 9:41 AM Date of : 1990 Age: 33 Gender: Female Note Status: Finalized Attending MD: Patrick Garcia DO, [id number] Procedure Date No Time: 10/09/2024 Procedure: ? Upper GI endoscopy Indications: ? Heartburn, Nausea with vomiting Providers: ? Patrick Garcia DO Referring MD: ?Parul Alvarez MD Medicines: ? Monitored Anesthesia Care Complications: ? No immediate complications. Estimated blood loss: ? Minimal. Estimated Blood Loss: ? Estimated blood loss was minimal. Procedure: ? Pre-Anesthesia Assessment: ? - - Prior to the procedure, a History and Physical was ? performed, and patient medications and allergies were ? reviewed. The patient is competent. The risks and ? benefits of the procedure and the sedation options and ? risks were discussed with the patient. All questions ? were answered and informed consent was obtained. ? Patient identification and proposed procedure were ? verified by the physician, the nurse, the ? anesthesiologist, the programming internship and the hvac engineering technician ? in the pre-procedure area in the endoscopy suite. ? Mental Status Examination: alert and oriented. Airway ? Examination: normal oropharyngeal airway and neck ? mobility. Respiratory Examination: clear to ? auscultation. CV Examination: normal. Prophylactic ? Antibiotics: The patient does not require prophylactic ? antibiotics. Prior Anticoagulants: The patient has ? taken no anticoagulant or antiplatelet agents. ASA ? Grade Assessment: II - A patient with severe systemic ? disease. After reviewing the risks and benefits, the ? patient was deemed in satisfactory condition to ? undergo the procedure. The anesthesia plan was to use ? monitored anesthesia care (MAC). Immediately prior to ? administration of medications, the patient was ? re-assessed for adequacy to receive sedatives. The ? heart rate, respiratory rate, oxygen saturations, ? blood pressure, adequacy of pulmonary ventilation, and ? response to care were monitored throughout the ? procedure. The physical status of the patient was ? re-assessed after the procedure. ? After obtaining informed consent, the endoscope was ? passed under direct vision. Throughout the procedure, ? the patient's blood pressure, pulse, and oxygen ? saturations were monitored continuously. The Endoscope ? was introduced through the mouth, and advanced to the ? jejunum. Small bowel enteroscopy was deemed necessary. ? The patient tolerated the procedure well. Findings: ?Evidence of a gastric bypass was found. A gastric ? pouch was found. The gastrojejunal anastomosis was ? characterized by healthy appearing mucosa. ? The esophagus was normal. ? A mild benign-appearing, intrinsic stenosis that was ? traversed was found in the jejunum. A TTS dilator was ? passed through the scope. Dilation with a 15-16.5-18 ? mm balloon dilator was performed to 18 mm. The ? dilation site was examined and showed moderate ? improvement in luminal narrowing. Estimated blood loss ? was minimal. ? Diffuse moderately erythematous mucosa without ? bleeding was found in the stomach pouch. Biopsies were ? taken with a cold forceps for histology. Estimated ? blood loss was minimal. Procedure Code(s): ? --- Professional --- ? 99919, Esophagogastroduodenoscopy, flexible, ? transoral; with dilation of gastric/duodenal ? stricture(s) (eg, balloon, bougie) ? 02466, 59, Small intestinal endoscopy, enteroscopy ? beyond second portion of duodenum, not including ? ileum; with biopsy, single or multiple Diagnosis Code(s): ? --- Professional --- ? Z98.84, Bariatric surgery status ? K56.699, Other intestinal obstruction unspecified as ? to partial versus complete obstruction ? K31.89, Other diseases of stomach and duodenum ? R12, Heartburn ? R11.2, Nausea with vomiting, unspecified CPT copyright 2020 [employer]. All rights reserved. The codes documented in this report are preliminary and upon return clerk review may be revised to meet current compliance requirements. PATRICK Garcia DO 10/09/2024 10:00:56 AM This report has been signed electronically.Patrick Garcia DO Number of Addenda: 0 Note Initiated On: 10/09/2024 9:41 AM Scope In: Scope Out: ? Endoscopy Department at [facility] - [address] [place] [address], ? [place] [address] Procedure Note Patrick Garcia DO - 10/09/2024 [facility] GI Patient Name: Jia Valdez Procedure Date: 10/09/2024 9:41 AM Date of : 1990 Age: 33 Gender: Female Note Status: Finalized Attending MD: Patrick Garcia DO, [id number] Procedure Date No Time: 10/09/2024 Procedure: Upper GI endoscopy Indications: Heartburn, Nausea with vomiting Providers: Patrick Garcia DO Referring MD: Parul Alvarez MD Medicines: Monitored Anesthesia Care Complications: No immediate complications. Estimated blood loss: Minimal. Estimated Blood Loss: Estimated blood loss was minimal. Procedure: Pre-Anesthesia Assessment: - - Prior to the procedure, a History and Physicalwas performed, and patient medications and allergieswere reviewed. The patient is competent. The risks and benefits of the procedure and the sedation optionsand risks were discussed with the patient. Allquestions were answered and informed consent was obtained. Patient identification and proposed procedure were verified by the physician, the nurse, the anesthesiologist, the programming internship and thetechnician in the pre-procedure area in the endoscopy suite. Mental Status Examination: alert and oriented.Airway Examination: normal oropharyngeal airway and neck mobility. Respiratory Examination: clear to auscultation. CV Examination: normal. Prophylactic Antibiotics: The patient does not requireprophylactic antibiotics. Prior Anticoagulants: The patient has taken no anticoagulant or antiplatelet agents. ASA Grade Assessment: II - A patient with severesystemic disease. After reviewing the risks and benefits,the patient was deemed in satisfactory condition to undergo the procedure. The anesthesia plan was touse monitored anesthesia care (MAC). Immediately priorto administration of medications, the patient was re-assessed for adequacy to receive sedatives. The heart rate, respiratory rate, oxygen saturations, blood pressure, adequacy of pulmonary ventilation,and response to care were monitored throughout the procedure. The physical status of the patient was re-assessed after the procedure. After obtaining informed consent, the endoscope was passed under direct vision. Throughout theprocedure, the patient's blood pressure, pulse, and oxygen saturations were monitored continuously. TheEndoscope was introduced through the mouth, and advanced tothe jejunum. Small bowel enteroscopy was deemednecessary. The patient tolerated the procedure well. Findings: Evidence of a gastric bypass was found. A gastric pouch was found. The gastrojejunal anastomosis was characterized by healthy appearing mucosa. The esophagus was normal. A mild benign-appearing, intrinsic stenosis thatwas traversed was found in the jejunum. A TTS dilatorwas passed through the scope. Dilation with a15-16.5-18 mm balloon dilator was performed to 18 mm. The dilation site was examined and showed moderate improvement in luminal narrowing. Estimated bloodloss was minimal. Diffuse moderately erythematous mucosa without bleeding was found in the stomach pouch. Biopsieswere taken with a cold forceps for histology. Estimated blood loss was minimal. Procedure Code(s): --- Professional --- 41731, Esophagogastroduodenoscopy, flexible, transoral; with dilation of gastric/duodenal stricture(s) (eg, balloon, bougie) 14743, 59, Small intestinal endoscopy, enteroscopy beyond second portion of duodenum, not including ileum; with biopsy, single or multiple Diagnosis Code(s): --- Professional --- Z98.84, Bariatric surgery status K56.699, Other intestinal obstruction unspecifiedas to partial versus complete obstruction K31.89, Other diseases of stomach and duodenum R12, Heartburn R11.2, Nausea with vomiting, unspecified CPT copyright 2020 [employer]. All rights reserved. The codes documented in this report are preliminary and upon return clerk reviewmay be revised to meet current compliance requirements. PATRICK Garcia DO 10/09/2024 10:00:56 AM This report has been signed electronically.Patrick Garcia DO Number of Addenda: 0 Note Initiated On: 10/09/2024 9:41 AM Scope In: Scope Out: Endoscopy Department at [facility] - [address] [place] [id number] IMPRESSION: - Gastric bypass. Gastrojejunal anastomosis characterized by healthy appearing mucosa. - Normal esophagus. - Jejunal stenosis. Dilated. - Erythematous mucosa in the stomach. Biopsied. Recommendation: - Discharge patient to home. - Resume previous diet. - Continue present medications. - Await pathology results. - Mild true limb entrance anastomosis. The GJ limbis normal. No obstruction seen. I do not believe her chronic nausea is related to this - very mild - apparent stenosis. us Patrick Garcia DO GI~PROCEDURE ORDERABLES Final Re sult * Tissue exam (10/09/2024 9:54 AM EDT) Final Diagnosis Labeled gastric pouch , biopsy: - Gastric oxyntic-type mucosa with chronic inflammation including occasional aggregates of predominantly small lymphocytes. - No active gastritis and no intestinal metaplasia identified. - No Helicobacter pylori identified on hematoxylin and eosin stained sections. 10/10/2024 10:38 AM EDT [facility] Gross Description A. Stomach, gastric pouch biopsy: Labeled stomach gastric p . Received in formalin are two soft to rubbery, alas-pink to red tissue fragments, approximately measuring 0.6 cm and 0.8 cm in greatest diameters, which are wrapped in paper and submitted in toto in one cassette, two pieces, multiple levels. dvb/DG 10/10/2024 10:38 AM EDT [facility] Disclaimer Unless otherwise specified, all tissue is 10% NB formalin fixed and paraffin embedded. 10/10/2024 10:38 AM EDT [facility] Tissue Stomach structure / Unknown 10/09/2024 9:54 AM EDT 10/09/2024 11:02 AM EDT us Patrick Jose DO LAB PATHOLOGY ORDERABLES Final R esult Performing Organization Address [facility]/ZIP Co de Phone Number [facility] [address] [place] [address], * Parathyroid hormone intact (08/21/2024 10:22 AM EST) PTH 54.2 18.5 - 88.0 pcg/mL LAB CHEMISTRY METHOD 08/21/2024 2:11 PM EST [facility] Blood Venous blood specimen / Unknown 08/21/2024 10:22 AM EST 08/21/2024 1:17 PM EST us Donald LINDO LAB BLOOD ORDERABLES Final Res ult Performing Organization Address [facility] Co de Phone Number [facility] [address] [place] [address], [place] [phone] * NM Hepatobiliary System Imaging (08/01/2024 10:23 [...] Signed Date: 08/06/2024 10:00 ET Workstation ID: [id number] Transcribed By: Self Edit Transcribed Date: 08/06/2024 [...] Signed Date: 08/06/2024 10:00 ET Workstation ID: [id number] Transcribed By: Self Edit Transcribed Date: 08/06/2024 09:52 ET us Dayana Frost MD IM NM PROCEDURES Final Result * (ABNORMAL) Lipid panel (05/21/2023) LDL/HDL Ratio 4 0 - 4 Triglycerides 190(A) 0 - 150 mg/dL Cholesterol 196 0 - 200 mg/dL HDL 53 >=40 mg/dL LDL Cholesterol 105(A) 0 - 100 mg/dL Blood Venous blood specimen / Unknown Result [facility] Historical Provider LAB BLOOD ORDERABLES Nicole l Result * Cervical Cancer Screening: HPV (09/28/2022) Pathologist [facility] Cervical Cancer Screening: HPV abstracted, negative Result [facility] Historical Provider HEALTH MAINTENANCE Final Result * HIV Screening (01/27/2022) [facility] HIV Screening abstracted Result [facility] Provider HEALTH MAINTENANCE Final Result * Hepatitis C Screening (01/27/2022) Pathologist [facility] Hepatitis C Screening abstracted [facility] Provider HEALTH MAINTENANCE Final Result from Last 3 Months or Most Recently Relevant to Health Maintenance Insurance [facility] MEDICARE Member Subscriber Plan / Payer (Ef fective 2022-Present) Name:Jia Valdez Relation to Subscriber:Self Name:Jia Valdez Payer ID:[id number] Group ID:[id number] Type:Not on file Address: [place] [address] [address] [place] [id number] Care Teams Press Machine Operator Relationship Specialty Start Date End Date Cassius Alvarez MD [address] [place] [id number] PCP - General Internal Medicine 06/07/24
== END 2024-10-23 10:49 | disposition home or self-care (01) ==
LOC: HO.HOP 10:47
PROVIDERS: PCP Internal Medicine; Visit Provider Clinical Nurse Specialist Psychiatric/Mental Health
DX: F33.2 Major depressive disorder, recurrent severe without psychotic features (principal); F42.2 Mixed obsessional thoughts and acts; R41.840 Attention and concentration deficit; F43.11 Post-traumatic stress disorder, acute
CPT/HCPCS: 99214

== ENCOUNTER → 2024-10-23 10:47 | Outpatient (BNVA) | payer OTHER, SELFPAY | PROVIDERS: PCP Internal Medicine; Visit Provider Clinical Nurse Specialist Psychiatric/Mental Health ==

== ENCOUNTER 2025-01-26 23:16 | Emergency (ER) | payer OTHER, SELFPAY ==
--- OUTSIDE RECORDS SUMMARY | 2025-01-23 08:19 | XMS_ITS | Encounter Summary ---
Author Organization [facility] Address [address] [place] [address] Care Team Providers Care Park Manager Name Role Phone Cassius Alvarez MD Primary Care Provider [phone] Reason for Visit * Imaging (Routine) - Authorized Specialty Diagnoses / Procedures Referred By Contac t Referred To Contact Radiology Diagnoses Nausea and vomiting, unspecified vomiting type Procedures XR UGI w Air Contrast XR UGI w Single Contrast Denice Zuñiga PA [address] [place] [address] Phone: tel: fax: [address] [address] Phone: tel: Referral ID Status Reason Start Date Expiration Date V isits Requested Visits Authorized [id number] Authorized 01/22/2025 01/22/2026 1 1 Encounter Details Date Type Department Care Team (Latest Contact Info) Description 01/23/2025 8:19 AM EDT - 01/23/2025 11:59 PM EDT Hospital Encounter [facility] Xray [address] [place] [address] Nausea and vomiting, unspecified vomiting type Discharge Disposition: Home or Self Care Social [...] got money to buy more. Never true 12/18/2024 Within the past 12 months th e food we bought just didn't last and we didn't have money to get more. Never true 12/18/2024 Interpersonal Safety Answer Date Record ed Physical Abuse 01/20/2025 Verbal Abuse 01/20/2025 Comments No Sex and Gender Information Value [...] this encounter Medications at Time of Discharge acetaminophen (TYLENOL) 500 mg tablet Take 2 tablets (1,000 mg total) by mouth every 8 (eight) hours if needed for mild pain or moderate pain. 30 tablet 5 albuterol 2.5 mg /3 mL (0.083 %) [...] 1 tablet (5 mg total) by mouth 1 (one) time each day. at bedtime. blood-glucose meter kit 1 Kit by Does not apply route daily. 4 clonazePAM (KlonoPIN) 0.5 mg tablet Take 1 tablet (0.5 mg total) by mouth 1 (one) time each day. 4 cyanocobalamin (Vitamin B-12) 500 mcg tablet Take 1 tablet (500 mcg total) by mouth 1 (one) time each day. 30 each 2 5 01/31/20 25 docusate sodium (COLACE) 100 mg capsule Take 1 capsule (100 mg total) by mouth 2 (two) times a day. 14 each 5 ergocalciferol (VITAMIN D-2) 1,250 mcg (50,000 unit) capsule Take 1 capsule (50,000 Units total) by mouth 1 (one) time per week. 12 each 5 11/02/19 26 escitalopram (LEXAPRO) 20 mg tablet Take 1 tablet (20 mg total) by mouth 1 (one) time each day. esomeprazole (NexIUM) [address] capsule TAKE 1 CAPSULE(40 MG) BY MOUTH 1 TIME EACH DAY BEFORE BREAKFAST. DO NOT OPEN CAPSULE 90 capsule 3 5 famotidine (PEPCID) 40 mg tablet Take 1 tablet (40 mg total) by mouth at bedtime. 30 each 3 5 11/01/19 26 HYDROmorphone (DILAUDID) 4 mg tablet Take 1 tablet (4 mg total) by mouth every 6 (six) hours if needed for severe pain. Max Daily Amount: 16 mg 12 tablet 5 medical supply, miscellaneous (MISCELLANEOUS MEDICAL [place] [facility] [place] GLUCOSE BLOOD TEST STRIPS (ASCENSIA AUTODISC ,ONE TOUCH ULTRA TEST ) STRIP One glucose script per blood sugar check twice daily 4 05/08/20 25 methocarbamoL (ROBAXIN) 500 mg tablet Take 1 tablet (500 mg total) by mouth 1 (one) time each day if needed for muscle spasms. metoprolol succinate (TOPROL-XL) 25 mg 24 hr tablet Take 1 tablet (25 mg total) by mouth 1 (one) time each day. Do not crush or chew. mirtazapine (REMERON) 15 mg tablet Take 0.5 tablets (7.5 mg total) by mouth at bedtime. 1 qg-kg-puvi-FA-vit [id number] (DEKAs Bariatric) 22.5 mg-400 mcg -500 mcg-10 mg tablet,chewable Chew 1 tablet 1 (one) time each day. 30 tablet 5 02/22/20 25 norethindrone (RISSA,AYDE,RUTHANN ER,MICRONOR) 0.35 mg tablet Take 1 tablet (0.35 mg total) by mouth 1 (one) time each day. 84 tablet 1 5 ondansetron ODT (ZOFRAN-ODT) 4 mg disintegrating tabletIndications:N ausea Dissolve 1 tablet (4 mg total) on top of the tongue every 8 (eight) hours if needed for nausea or vomiting. 20 tablet 5 OneTouch Ultra Test test strip Use as instructed 100 each 12 5 prochlorperazine (COMPAZINE) 25 mg suppository Insert 1 suppository (25 mg total) into the rectum every 8 (eight) hours if needed for nausea or vomiting. 30 suppository 1 5 documented as of this encounter Discharge Disposition Disposition Code Departure Means Destination Home or Self Care documented in this encounter Plan of Treatment Upcoming Encounters Date Type Department Care Team (Late st Contact Info) Description 01/30/2025 8:50 AM EDT Office Visit Gastroenterology - [place] [facility] 175 [facility] [address] [place] [address] Anny Vogel PA 175 [facility] [address] [place] [address] 03/05/2025 8:45 AM EDT Office Visit Bariatric Surgery - [place] [address] [phone] Dayana Frost MD 175 [facility] [address] [place] [address] 03/13/2025 11:00 AM EDT Office Visit Bariatric Surgery [facility] 175 [facility] [address] [place] [address] Danny Thomas MD [address] [id number] documented as of this encounter Procedures Procedure Name Priority Date/Time Associated Diagnosis Comments XR UGI W AIR CONTRAST Routine 01/23/2025 9:10 AM EDT Nausea and vomiting, unspecified vomiting type documented in this encounter Results * XR UGI w Air Contrast (01/23/2025 9:10 AM EDT) Anatomical Region Laterality Modality Body Radiographic Abbie ging 01/23/2025 11:2 1 AM EDT Impressions 01/23/2025 11:53 AM EDT Significant narrowing at the gastric-gastric anastomosis as described above status post recent gastric bypass reversal. This may be secondary to post surgical edema. Consider follow up in 3-4 weeks. -------- FINAL REPORT -------- Dictated By: Willow Oliver Dictated Date: 01/23/2025 11:21 ET Assigned Physician: Emile Vasquez Reviewed and Electronically Signed By: Emile Vasquez Signed Date: 01/23/2025 11:53 ET Workstation ID: [id number] Transcribed By: Self Edit Transcribed Date: 01/23/2025 11:41 ET Resident/PA/LABORATORY CHIEF: Willow Oliver Narrative 01/23/2025 11:53 AM EDT FINDINGS: Double contrast UGI performed. COMPARISON: Upper GI imaging November 23 and October 18, 2023 ; CT abdomen and pelvis with contrast January 20, 2025 reviewed. HISTORY: Patient is a 34-year-old female with history of vomiting status post gastric bypass reversal December 28, 2024. Question gastric-gastric anastomosis narrowing ART TEACHER radiographs: Whale Trainer AP radiograph of the abdomen obtained. Bowel gas pattern is nonobstructive. Visualized lung bases appear clear. There are multiple surgical clips and suture chains across the left abdomen. There are cholecystectomy clips present. There is residual contrast visualized within the descending colon, likely from oral contrast received for patient's recent CT abdomen and pelvis from January 20, 2025. FINDINGS: Effervescent crystals were administered orally. Thick and thin barium was then administered orally under fluoroscopic control. Esophagus: Normal distensibility, motility and mucosal pattern. There is no evidence of obstruction or hiatal hernia. Stomach: Gastric anatomy is consistent with multiple surgeries. Gastric-gastric anastomosis is best visualized with patient in the left lateral position and demonstrates significant narrowing. Contrast does flow freely past this area into duodenal bulb and sweep. Visualization of proximal small bowel is within normal limits. Gastroesophageal reflux: Not visualized Air kerma: 52.1 mGy Procedure Note Emile Vasquez MD - 01/23/2025 FINDINGS: Double contrast UGI performed. COMPARISON: Upper GI imaging November 23 and October 18, 2023 ; CT abdomen andpelvis with contrast January 20, 2025 reviewed. HISTORY: Patient is a 34-year-old female with history of vomiting statuspost gastric bypass reversal December 28, 2024. Question gastric-gastricanastomosis narrowing ART TEACHER radiographs: Whale Trainer AP radiograph of the abdomen obtained. Bowel gaspattern is nonobstructive. Visualized lung bases appear clear. There aremultiple surgical clips and suture chains across the left abdomen. Thereare cholecystectomy clips present. There is residual contrast visualizedwithin the descending colon, likely from oral contrast received forpatient's recent CT abdomen and pelvis from January 20, 2025. FINDINGS: Effervescent crystals were administered orally. Thick and thinbarium was then administered orally under fluoroscopic control. Esophagus: Normal distensibility, motility and mucosal pattern. There isno evidence of obstruction or hiatal hernia. Stomach: Gastric anatomy is consistent with multiple surgeries.Gastric-gastric anastomosis is best visualized with patient in the leftlateral position and demonstrates significant narrowing. Contrast doesflow freely past this area into duodenal bulb and sweep. Visualization ofproximal small bowel is within normal limits. Gastroesophageal reflux: Not visualized Air kerma: 52.1 mGy IMPRESSION: Significant narrowing at the gastric-gastric anastomosis as describedabove status post recent gastric bypass reversal. This may be secondary topost surgical edema. Consider follow up in 3-4 weeks. -------- FINAL REPORT -------- Dictated By: Willow Oliver Dictated Date: 01/23/2025 11:21 ET Assigned Physician: Emile Vasquez Reviewed and Electronically Signed By: Emile Vasquez Signed Date: 01/23/2025 11:53 ET Workstation ID: [id number] Transcribed By: Self Edit Transcribed Date: 01/23/2025 11:41 ET Resident/PA/LABORATORY CHIEF: Willow Oliver Denice LINDO IMG FLUOROSCOPY PROCEDUR ES Final Result documented in this encounter Visit Diagnoses Diagnosis Nausea and vomiting, unspecified vomiting type documented in this encounter Administered Medications Inactive Administered Medications - up to 3 most recent administrations Medication Order MAR Action Action Date Dose Rate Site barium sulfate (E-Z-HD) 98 % suspension 100 mL 100 mL, oral, Once in imaging, Starting on Wed01/23/25 at 0910, For 1 dose Given 01/23/2025 9:11 AM EDT 100 mL barium sulfate (E-Z-PAQUE) 96 % (w/w) suspension 100 mL 100 mL, oral, Once in imaging, Starting on Wed01/23/25 at 0910, For 1 dose Given 01/23/2025 9:11 AM EDT 100 mL documented in this encounter Care Teams Park Manager Relationship Specialty Start Date End Date Cassius Alvarez MD [address] [place] [id number] PCP - General Internal Medicine 06/07/24 documented as of this encounter
--- NOTE | ~2025-01-26 | XR_ITS ---
CLINICAL HISTORY: ?avulsion fx per patient 3 views right elbow Comparison: CR/SR - XR ELBOW 3 VIEWS RIGHT - 09/11/24 12:43 EST Findings: There is a rounded ossific density adjacent to the lateral epicondyle similar to the prior study likely heterotopic ossification/calcification at the origin of the extensor tendons versus a chronic avulsion fracture. There is no acute fracture. Joint spaces and joint alignment are normal. There is no effusion. Impression: No acute findings. This document has been electronically signed by: Geovany Pollard MD on 01/27/2025 03:52:05
[2025-01-26 23:29] VITALS: BP 109/57; PULSE 88; RESP 16; O2SAT 100; BMI 34.4
--- OUTSIDE RECORDS SUMMARY | 2025-01-26 23:39 | XMS_ITS | Data Portability ---
Author Organization [place] - [facility] Address [address] [place] [address] Care Team Providers Care Dehydrogenation Converter Helper Name Role Phone RAMONA JULIEN Primary Care Provider Assessment No assessment recorded. Plan of Treatment Reminders Order Date Submit Date Provider Last Modified By Organization Details Last Modified Time Details Appointments RECHECK 15 2024 03:30P M Gabi Urbina PA-C Not available Not available Not available Lab None recorded . Referral None recorded . Procedures None recorded . Surgeries None recorded . Imaging XR, elbow, 3 or more view - rm 115 3v right elbow 2024 025 [email or web address] [facility], [address] [address], [place], [address], 10/12/2024 14:57:30 Medication Orders None recorded . Patient TargetsNo targets recorded. Patient InstructionsNo instructions recorded. Reason for Referral None Reported. Results Created Date Observation Date Name Description Value Unit Range Abnormal Flag Note LastModifiedBy Organization Detail LastModifiedTime 10/13/19 25 10/12/2024 XR, elbow , 3 or more view [email or web address] ?Encry pted=s hAaTro YD8dLq bEUv6g %2BXZw aYqtaq 0bqfl% 2Fg9IQ a4ajBk vP9nXo QUaueC m3YtLR FvZlgJ JJ8mAn HZtai3 2i3170 AC0KqY 3yCUaq vKiQtr MwF INTERFACE [facility] [address], [place], [address], 10/12/2024 14:24:06 10/13/19 25 10/12/2024 XR, elbow , 3 or more view [email or web address] ?Encry pted=s hAaTro YD8dLq bEUv6g %2BXZw aYqtaq 0bqfl% 2Fg9IQ a4ajBk vP9nXo QUaueC m3YtLR FvZlgJ JJ8mAn HZtai3 8a5612 AC0KqY 3yCUaq vKiQtr MwF INTERFACE [facility] [address] [facility] [address], [place], [address], 10/12/2024 14:24:08 Result Notes Documentation Provider Name and Address Organization Details Recorded Time Xr, Elbow, 3 Or More View : [email or web address] Encrypted=raVoUskLY3qHzvY Uv6g%8CAVxgVewps9rbsg%2Fg 7TOj9ieLvrN3aTyBHnunLc4Up TZHyPwtGGL7vDgXOihj83o418 6YF5OyG4qSLtukTuAdqGvX Not Available [facility] 10/12/2024 14:24: 07 Xr, Elbow, 3 Or More View : [email or web address] Encrypted=rpKuDctCY8eOghZ Uv6g%9AGCexOvrbo0wwxj%2Fg 3SKe5ucWkmI6pQbTFvwnMt9Nd VSCrPehLCU9aBeIQoxl41p608 6CB8YnM2pVJljsAbMqzFyA Not Available [facility] 10/12/2024 14:24: 09 Procedures Surgical History Date Name Laterality Status Provider Name and Address Organization Details Recorded Time 11/21/19 25 Lateral Epicondylitis Celestone 1cc Injection, L/R completed Gabi Urbina PA-C [address], [place], [address], [facility] 11/20/2024 10:47:41 10/13/19 25 Lateral Epicondylitis Celestone 1cc Injection, L/R completed Gabi Urbina PA-C [address], [place], [address], [facility] 10/12/2024 14:54:31 Imaging Results None recorded. Procedure Notes None recorded. Medical Equipment None Reported. Allergies Allergen ID Allergen Name Allergen Category Reaction Reaction Severity Criticality Documentation Date Start Date Code Code System Note Provider Name and Address Organization Details Recorded Time 904794 Remicade medicatio n Not available Not available Not available 10/12/2024 137[address] [facility], [facility] 16:38:18 Medications Name Sig Start Date Stop Date Status Note LastModified by Organization Details LastModified Time celecoxib 200 mg capsule TAKE 1 CAPSULE BY MOUTH TWICE DAILY NEEDED FOR MODERATE PAIN active Not Available Not Available No t Available amoxicillin 500 mg capsule TAKE 1 CAPSULE BY MOUTH EVERY 8 HOURS FOR 7 DAYS active Not Available Not Available No t Available methocarbamo l 500 mg tablet TAKE ONE TABLET BY MOUTH TWICE DAILY active Not Available Not Available No t Available cefuroxime axetil 250 mg tablet TAKE 1 TABLET BY MOUTH TWICE DAILY FOR 7 DAYS active Not Available Not Available No t Available tizanidine 2 mg tablet TAKE 1 TABLET BY MOUTH EVERY NIGHT AT BEDTIME NEEDED FOR BACK PAIN active Not Available Not Available No t Available ofloxacin 0.3 % eye drops INSTILL 1 DROP IN BOTH EYES FOUR TIMES DAILY FOR 5 DAYS active Not Available Not Available No t Available benzonatate 200 mg capsule TAKE 1 CAPSULE BY MOUTH THREE TIMES DAILY FOR 14 DAYS NEEDED FOR COUGH active Not Available Not Available No t Available phenazopyrid ine 200 mg tablet TAKE 1 TABLET BY MOUTH THREE TIMES DAILY X2 DAYS active Not Available Not Available No t Available ondansetron HCl 4 mg tablet TAKE 1 TABLET BY MOUTH EVERY 8 HOURS FOR UP TO 7 DAYS NEEDED FOR NAUSEA active Not Available Not Available No t Available clonazepam 0.5 mg tablet TAKE 1/2 TABLET BY MOUTH DAILY NEEDED FOR ANXIETY AND TAKE 1 TABLET BY MOUTH AT BEDTIME EVERY NIGHT active Not Available Not Available Not Available sulfamethoxa zole 800 mg-trimethop rim 160 mg tablet TAKE 1 TABLET BY MOUTH TWICE DAILY active Not Available Not Available No t Available acetaminophe n 500 mg tablet TAKE 2 TABLETS BY MOUTH EVERY 8 HOURS NEEDED FOR MILD OR MODERATE PAIN active Not Available Not Available No t Available hydromorphon e 2 mg tablet TAKE 1 TABLET BY MOUTH EVERY 4 TO 6 HOURS NEEDED FOR BREAKTHROUG H PAIN active Not Available Not Available No t Available famotidine 20 mg tablet TAKE 1 TABLET BY MOUTH TWICE DAILY NEEDED FOR REFLUX OR HEARTBURN active Not Available Not Available No t Available methocarbamo l 750 mg tablet TAKE 1 TABLET BY MOUTH THREE TIMES DAILY FOR 10 DAYS active Not Available Not Available Not Available cyanocobalam in (vit B-12) 500 mcg tablet TAKE 1 TABLET BY MOUTH EVERY DAY active Not Available Not Available No t Available tamsulosin 0.4 mg capsule TAKE 1 CAPSULE BY MOUTH AT BEDTIME active Not Available Not Available No t Available OneTouch Ultra Test strips USE ONE GLUCOSE STRIP TO CHECK BLOOD SUGAR TWICE DAILY active Not Available Not Available No t Available esomeprazole magnesium 40 mg capsule,derek yed release TAKE 1 CAPSULE BY MOUTH EVERY MORNING BEFORE BREAKFAST active Not Available Not Available No t Available metoprolol succinate ER 25 mg tablet,exten ded release 24 hr TAKE 1 TABLET BY MOUTH DAILY active Not Available Not Available Not Available ergocalcifer ol (vitamin D2) 1,250 mcg (50,000 unit) capsule TAKE 1 CAPSULE BY MOUTH 1 TIME EVERY WEEK active Not Available Not Available No t Available ibuprofen 600 mg tablet TAKE 1 TABLET BY MOUTH EVERY 6 HOURS NEEDED FOR PAIN active Not Available Not Available No t Available albuterol sulfate HFA 90 mcg/actuatio n aerosol inhaler INHALE 2 PUFFS BY MOUTH EVERY 4 HOURS NEEDED FOR COUGH OR SHORTNESS OF BREATH OR WHEEZING active Not Available Not Available Not Available norethindron e (contracepti ve) 0.35 mg tablet TAKE 1 TABLET BY MOUTH DAILY active Not Available Not Available Not Available morphine 15 mg immediate release tablet TAKE 1 TABLET BY MOUTH EVERY 6 HOURS NEEDED FOR PAIN active Not Available Not Available No t Available ondansetron 4 mg disintegrati ng tablet DISSOLVE 1 TABLET ON THE TONGUE EVERY 8 HOURS NEEDED FOR NAUSEA OR VOMITING active Not Available Not Available No t Available simethicone 80 mg chewable tablet CHEW AND SWALLOW ONE TABLET EVERY 6 HOURS NEEDED FOR FLATULENCE active Not Available Not Available N ot Available oxycodone 5 mg tablet TAKE 1 TABLET BY MOUTH EVERY 6 HOURS NEEDED FOR PAIN active Not Available Not Available No t Available cholecalcife rol (vitamin D3) 25 mcg (1,000 unit) capsule TAKE 1 CAPSULE BY MOUTH DAILY active Not Available Not Available Not Available escitalopram 20 mg tablet TAKE 1 TABLET BY MOUTH DAILY active Not Available Not Available Not Available aripiprazole 5 mg tablet TAKE 1 TABLET BY MOUTH AT BEDTIME active Not Available Not Available No t Available bupropion HCl XL 150 mg 24 hr tablet, extended release TAKE 1 TABLET BY MOUTH EVERY MORNING active Not Available Not Available No t Available mirtazapine 7.5 mg tablet TAKE 1 TABLET BY MOUTH AT BEDTIME active Not Available Not Available No t Available nitrofuranto in monohydrate/ macrocrystal s 100 mg capsule TAKE 1 CAPSULE BY MOUTH TWICE DAILY FOR 5 DAYS WITH FOOD OR MEAL active Not Available Not Available No t Available cholecalcife rol (vitamin D3) 1,250 mcg (50,000 unit) capsule TAKE 1 TABLET BY MOUTH ONCE A WEEK FOR 12 DOSES active Not Available Not Available No t Available ferrous sulfate 324 mg (65 mg iron) tablet,delay ed release TAKE 1 TABLET BY MOUTH DAILY active Not Available Not Available Not Available diclofenac 1 % topical gel APPLY 4 GRAMS TOPICALLY FOUR TIMES DAILY NEEDED active Not Available Not Available No t Available lurasidone 80 mg tablet TAKE 1 TABLET BY MOUTH DAILY WITH FOOD active Not Available Not Available No t Available [employer] Ultra2 Meter USE DIRECTED active Not Available Not Available No t Available M-PAP 160 mg/5 mL oral liquid TAKE 31.25 ML BY MOUTH EVERY 8 HOURS active Not Available Not Available No t Available BinaxNOW COVID-19 Ag Self Test kit TEST DIRECTED TODAY active Not Available Not Available No t Available Vitals Date Recorded Body height Body mass index (BMI) Body weight Provider Name and Address Organization Details Last Updated DateTime 10/12/2024 160.02 cm 35.1 kg/m2 73860.29 g NICOLETTE HILL [facility] 10/12/2024 14:11:16 Date Recorded Body height Body mass index (BMI) Body weight Provider Name and Address Organization Details Last Updated DateTime 11/20/2024 160.02 cm 35.1 kg/m2 68160.29 g Sally Awan [facility] 11/20/2024 09:13:37 Social History None recorded. Functional Status None recorded. Mental Status None recorded. Family History Nothing Reported. Medical History No medical history recorded. Gynecological HistoryNo gynecological history recorded. Obstetrics History GPAL:G 0 P 0 0 0 0 Past Encounters Encounter ID Performer Location Encounter Start Date Encounter Closed Date Diagnosis/Indication Diagnosis SNOMED-CT Code Diagnosis ICD10 Code Diagnosis Note [id number] DOLORES Akers [address] [place] [address] 10/12/2024 13:55:43 10/29/2024 14:22:01 Pain of elbow region 30829146 M25.521 Lateral ep icondylitis of right humerus 5356161471 43694 M77.11 [id number] DOLORES Akers [facility] [address] [place] [address] 11/20/2024 08:41:17 12/13/2024 13:07:10 Health Concerns Section Related Observation LastModified by Organization Detai ls LastModified Time None Recorded Concern Status LastModified by Organization Details LastModified Time None Recorded Advance Directives Directive None Recorded Payers Insurance Date Sequence Insurance Name Policy Number Policy Dexter Covered Member ID Dexter Member ID Guarantor Name 01/26/2025 1 [facility] - DOS ON OR AFTER 2022 - ONE CARE (MEDICARE REPLACEMENT/ADV ANTAGE - HMO) Ricardo Valdez [id number] Ricardo Valdez Notes Date Note Type Note Provider Name and Address Organization Details Recorded Time 10/12/2024 text/html I am seeing the patient today under the supervision of dr Pedro who was available but who did not see the patient. DX: Right Lateral epicondylitis HPI:33-year-old female here for consultation. She complains several month history of right lateral elbow pain. Unable to take anti-inflammatories as she has had gastric surgery. Has pain with lifting, pulling and pushing. Symptoms awaken her from sleep. She is in therapy with that resolved. Past family, medical, social history and review of systems has been reviewed, updated and is located in the patient s chart. Examination: Alert and oriented 3. No acute distress. Nonantalgic gait.Right Elbow reveals no soft tissue swelling. The patient is tender over the lateral epicondyle. Lateral elbow pain with wrist extension, resisted wrist extension and resisted forearm supination. No Tenderness medially or over the olecranon process. Left elbow ROM full. Full pronation/supination. No evidence of varus/valgus instability. No radiocapitellar crepitus. No medial or lateral epicondylar tenderness. No evidence for effusion, no evidence of mechanical symptoms or locking. Intact median, radial and ulnar nerve both motor and sensory function. Negative Tinel at the level of the elbow. X-rays ordered, [facility] right elbow reveals a fracture dislocation. No arthritic changes. 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 She broke her elbow as a child Impression/Plan: Findings and situation were discussed with the patient. Treatment options were discussed. The patient would like to proceed with a cortisone injection. Under aseptic technique, 6 mg of Celestone, and 1 cc 0.5% marcaine were injected into the right lateral epicondylar region. The patient tolerated the procedure well. Patient was provided with a handout that instructs on home stretching exercises. The patient was provided with a Velcro wrist splint to minimize the use the forearm extensors. Patient follow-up in 6 weeks for reexamination if no improvement. Gabi Urbina PA-C [address] [place] [address] [address], [place], [address], [facility] 10/12/2024 14:54:54 11/20/2024 text/html I am seeing the patient today under the supervision of dr Pedro who was available but who did not see the patient. DX: Right Lateral epicondylitis status post cortisone injection 10/12/2024 HPI:33-year-old female here for reevaluation. Symptoms returned approximately 1 week ago. Has pain with lifting pulling pushing.. . Unable to take anti-inflammatories as she has had gastric surgery. Past family, medical, social history and review of systems has been reviewed, updated and is located in the patient s chart. Examination: Alert and oriented 3. No acute distress. Nonantalgic gait.Right Elbow reveals no soft tissue swelling. The patient is tender over the lateral epicondyle. Lateral elbow pain with wrist extension, resisted wrist extension and resisted forearm supination. No Tenderness medially or over the olecranon process. Left elbow ROM full. Full pronation/supination. No evidence of varus/valgus instability. No radiocapitellar crepitus. No medial or lateral epicondylar tenderness. No evidence for effusion, no evidence of mechanical symptoms or locking. Intact median, radial and ulnar nerve both motor and sensory function. Negative Tinel at the level of the elbow. Impression/Plan: Findings and situation were discussed with the patient. Treatment options were discussed. The patient would like to proceed with a cortisone injection. Under aseptic technique, 6 mg of Celestone, and 1 cc 0.5% marcaine were injected into the right lateral epicondylar region. The patient tolerated the procedure well.Patient follow-up in 6 weeks for reexamination if no improvement. Gabi Urbina PA-C [address] [facility] [address], [place], [address], [facility] 11/20/2024 10:50:05 OBGyn Episode No OBEpisode recorded.
--- OUTSIDE RECORDS SUMMARY | 2025-01-26 23:39 | XMS_ITS | Clinical Summary ---
Author Organization [facility] Address [address] [place] [address] Care Team Providers Care Criminal Investigator Name Role Phone Cassius Alvarez MD Primary Care Provider [phone] Allergies Active Allergy Reactions Criticality Noted Date [...] 72 05/08/2024 9:08 AM EDT Temperature 36.5 C (97.7 F) 05/08/2024 9:08 AM EDT Respiratory Rate 18 04/03/2024 12:59 PM EDT [...] 05/17/2021, Additional history exists Influenza Vaccine (#1) 2025 , 04/18/2022, 05/01/2021, Additional history exists DTap [...] age to complete this topic Care Teams Criminal Investigator Relationship Specialty Start Date End Date Cassius Alvarez MD [address] [place] [address] PCP - General Internal Medicine 08/16/23
--- OUTSIDE RECORDS SUMMARY | 2025-01-26 23:39 | XMS_ITS | Clinical Summary ---
Author Organization [facility] Address [address] [place] [address] Phone Care Team Providers Care Cold Header Name Role Phone Neli Andrews MD Primary Care Pro vider Allergies Active Allergy Reactions Criticality Noted Date Comments Infliximab 06/01/2021 Sodium Chloride 03/25/2023 Medications hydrOXYzine (ATARAX) 50 MG tablet Take 50 mg by mouth 2 (two) times a day (once in the morning and once in the afternoon). Active mirtazapine (REMERON) 7.5 MG tablet Take 22.5 mg by mouth nightly at bedtime. Active famotidine (PEPCID) 20 MG tablet Take 20 mg by mouth 2 (two) times a day. Active cetirizine (ZYRTEC) 10 MG tablet Take 10 mg by mouth daily. Active albuterol (ACCUNEB) 0.63 mg/3 mL nebulizer solution Take 1 ampule by nebulization every 6 (six) hours as needed for wheezing. Active albuterol 90 mcg/actuation inhaler Inhale 2 puffs into the lungs every 6 (six) hours as needed for wheezing. Active risperiDONE (RISPERDAL) 0.5 MG tablet Take 1 tablet by mouth 2 (two) times a day. Active norethindrone acetate (AYGESTIN ORAL) Take 5 mg by mouth. Active ketorolac (TORADOL) 10 mg tablet TAKE 1 TABLET BY MOUTH EVERY 8 HOURS FOR 5 DAYS 3 Active cholecalciferol (VITAMIN D3) 50,000 unit capsule TAKE ONE CAPSULE BY MOUTH ONCE A WEEK FOR 12 DOSES 3 Active escitalopram oxalate (LEXAPRO) 20 MG tablet Take 1 tablet by mouth daily. Active Active Problems Problem Noted Date Diagnosed Date Chronic low back pain 09/12/2014 Overview (06/18/2015): Chronic low back pain Fibromyalgia 09/12/2014 Overview (06/18/2015): Myofascial pain syndrome Obsessive-compulsive disorder 07/04/2014 Overview (08/31/2014): OCD - Obsessive-compulsive disorder Depressive disorder 07/04/2014 Overview (08/31/2014): Depression Kidney stone 07/04/2014 Overview (08/31/2014): Nephrolithiasis Attention deficit hyperactivity disorder 014 Overview (08/31/2014): ADHD - Attention deficit disorder with hyperactivity Asthma 07/04/2014 Overview (08/31/2014): Asthma Anxiety 07/04/2014 Overview (08/31/2014): Anxiety Estimated Date of Delivery Comme nts Yes 08/15/2022 Family History Medical History Relation Comments Osteoarthritis Father Osteoarthritis Relation Status Comments Father Social History Tobacco Use Types Packs/Day Years Used Date Smoking Tobacco: Never Smokeless Tobacco: Never Tobacco Cessation:Counseling Given: Not Answered Education Answer Date Recorded Are you interested in more education? Not on noe e 11/06/2022 Are you concerned about learning? Not on file 11/06/2022 No 11/06/2022 No 11/06/2022 Digital Access Answer Date Recorded No 12/07/2022 No 12/07/2022 No 12/07/2022 Reliable internet access at home? Not on file 12/07/2022 Device with a working camera? Not on file Estimated Date of Delivery Comme nts Yes 08/15/2022 Sex and Gender Information Value Date Recorded Sex Assigned at Female 12/26/2018 4:24 PM EDT Legal Sex Female 9:10 AM EDT Gender Identity Female 12/26/2018 4:24 PM EDT Sexual Orientation Not on file Last Filed Vital Signs Vital Sign Reading Time Taken Comments Blood Pressure 124/90 03/25/2023 10:03 AM EDT Pulse 94 03/25/2023 10:03 AM EDT Temperature 36.8 C (98.3 F) 03/25/2023 10:03 AM EDT Respiratory Rate 18 03/25/2023 10:03 AM EDT Oxygen Saturation 98% 03/25/2023 10:03 AM EDT Inhaled Oxygen Concentration - - Weight 87.1 kg (192 lb) 07/03/2022 10:40 AM EST Height 162.6 cm (5' 4 ) 07/03/2022 10:40 AM EST Body Mass Index 32.96 07/03/2022 10:40 AM EST Plan of Treatment Health Maintenance Due Date Last Done Comments DEPRESSION SCREENING 2004 HEPATITIS C SCREENING 2010 HIV ONE-TIME SCREENING (18-65 YEARS) 2010 PNEUMOCOCCAL VACCINES (0-49 years) (1 of 2 - PCV) 10/16/2011 PAP SMEAR 2013 COVID-19 VACCINE ( - season) 2024 04/18/2022, 10/09/2021, 05/17/2021, Additional history exists Adult Td,Tdap Booster 06/05/2032 06/05/2022 , 11/26/2020, 11/26/2020, Additional history exists RSV VACCINE (1 - 1-dose 75+ series) 10/16/2067 HIB VACCINES Completed 02/23/1994, 04/11, 02/23/1993, Additional history exists MENINGOCOCCAL VACCINES (ACWY) Aged Out 01/28/2007, 01/28/2007 No longer eligibl e based on patient's age to complete this topic SMOKING STATUS SCREENING (Once After 26 Yrs) Completed 07/03/2022 HEPATITIS A VACCINES Aged Out No long er eligible based on patient's age to complete this topic MENINGOCOCCAL VACCINES (B) Aged Out N o longer eligible based on patient's age to complete this topic Medical Devices Not on file Insurance MEDICARE PART A & B [facility] MEDICARE REPLACEMENT [place] [id number] MEDICARE PART A & B [facility] MEDICARE REPLACEMENT [place] [facility] MEDICARE PART A & B MEDICARE PART A & B MEDICARE PART A & B CARE MEDICARE REPLACEMENT [place] [facility] MEDICARE PART A & B [facility] MEDICARE REPLACEMENT MEDICARE PART A & B [facility] MEDICARE REPLACEMENT MEDICARE PART A & B MEDICARE PART A & B [facility] ONE CARE MEDICARE REPLACEMENT Care Teams Cold Header Relationship Specialty Start Date End Date Neli Andrews MD [address] [place] [address] [place] [address] PCP - General Internal Medicine 06/16/17 Additional Source Comments The information contained in this document represents components of the legal health record. It is not the complete legal health record.[facility]
[2025-01-27 00:14] VITALS: BP 102/58; PULSE 83; RESP 16; O2SAT 100
--- NOTE | 2025-01-27 02:06 | ED.EXTPRO ---
HPI - Extremity Problem General Chief complaint: Extremity Injury, Upper Stated complaint: Fractured right elbow Time Seen by Provider: 01/27/25 02:06 Source: patient Mode of arrival: ambulatory Limitations: no limitations History of Present Illness ED Provider: HPI Narrative: Patient with chronic right epicondylitis received cortisone injection multiple times been complaining of increased pain for last 1 week without any injury or trauma patient was seen at urgent care center and diagnosed with avulsion fracture. Patient comes here as still having the pain wearing the sling and does not have any pain medication at home she was taking oxycodone which was given to her from the gastric bypass surgery in 01/03 Related Data Home Medications ?Medication ?Instructions ?Recorded ?Confirmed acetaminophen 500 mg tablet mg PO 09/24/23 10/23/24 albuterol sulfate 90 mcg/actuation inhalation 09/24/23 10/23/24 aerosol inhaler esomeprazole magnesium 40 mg 40 mg PO DAILY 09/24/23 10/23/24 capsule,delayed release metoprolol succinate 25 mg 25 mg PO DAILY 09/24/23 10/23/24 tablet,extended release 24 hr norethindrone (contraceptive) 0.35 mg PO 09/24/23 10/23/24 mg tablet Previous Rx's ?Medication ?Instructions ?Recorded ondansetron 4 mg disintegrating 4 mg PO Q6H PRN nausea and 06/08/24 tablet vomiting #10 tabs methocarbamol 500 mg tablet 500 mg PO BID #60 tabs 06/13/24 diclofenac sodium 1 % topical gel 4 g topical QID #100 grams 07/25/24 (Arthritis Pain (diclofenac)) arm brace #1 ea 10/03/24 adalimumab 40 mg/0.4 mL 40 mg (0.4 mL) subcut Q14D 28 days 10/06/24 subcutaneous pen kit (Humira(CF) #2 ea Pen) aripiprazole 5 mg tablet 5 mg PO BEDTIME #90 tabs 10/23/24 clonazepam 0.5 mg tablet 0.5 mg PO .COMPLEX #45 tabs 10/23/24 escitalopram oxalate 20 mg tablet 20 mg PO DAILY 90 days #90 tabs 10/23/24 mirtazapine 7.5 mg tablet 7.5 mg PO BEDTIME #90 tabs 10/23/24 oxycodone 5 mg tablet 5 mg PO Q6H PRN pain #20 tabs 01/27/25 Allergies Allergy/AdvReac Type Severity Reaction Status Date / Time infliximab (From Remicade) AdvReac Headache Verified 01/26/25 23:33 Review of Systems Review of Systems: Yes all other systems are reviewed and are negative [facility] Past Medical History Medical History Kidney stones Ankylosing spondylitis Depression Anxiety Asthma Surgical History H/O gastric sleeve Family History Family History Other Ankylosing spondylitis Social History Social History Alcohol intake: never Patient Tobacco Use Status: Never used Tobacco Smoked in Last 30 Days: No Use of substances other than those prescribed or required for medical reasons: No Advance Directives: No Advance Directives Information Provided: No Do you have a plan to hurt others: No Plan Patient : No Physical Exam Vital Signs: Vital Signs: Last Vital Signs Temp 97.6 F 01/27/25 03:39 Pulse 80 01/27/25 03:39 Resp 16 01/27/25 03:39 BP 104/60 01/27/25 03:39 Pulse Ox 100 01/27/25 03:39 O2 Del Method Room Air 01/27/25 03:39 BMI result Body Mass Index 34.4 Appearance: Alert. Oriented X3. No acute distress. Eyes: no pallor or icterus ENT: Pharynx normal Oral Mucosa moist tympanic membrane intact no erythema, Neck: Normal inspection. Neck supple. CVS: Normal heart rate and rhythm. Pulses normal. Respiratory: No respiratory distress. Equal air entry bilateral, no wheezing/rales/rhonchi Abd: soft, not tender Skin: Skin warm and dry. Normal skin color. Normal skin turgor. Extremities: Tenderness at lateral epicondyle area increased pain on external rotation. Neuro: Oriented X 3. Medications Administered Discontinued Medications Generic Name Dose Route Start Last Admin Trade Name Freq PRN Reason Stop Dose Admin Lidocaine HCl 5 ml 01/27/25 02:49 01/27/25 03:46 Lidocaine Hcl 2 % Mpf 5 Ml Vial INFILTRATI 01/27/25 02:50 Not Given ONCE ONE Oxycodone HCl 5 mg 01/27/25 03:24 01/27/25 03:42 Oxycodone Hcl Immed Release 5 Mg Tablet PO 01/27/25 03:25 5 mg ONCE ONE Administration Medical Decision Making Medical Decision Making MDM Narrative: Patient's right epicondylitis x-ray showed ossification/old avulsion fracture patient's plan to see orthopedics on Wednesday received lidocaine injection at the site of pain feeling much better at time of discharge Independent Interpretation I performed an independent interpretation of an: Plain X-Ray Radiology Impression Discussion of test interpretation with radiology: I have reviewed the radiologist's reading. Discharge Plan Discharge Clinical Impression: Lateral epicondylitis/tennis elbow Patient Disposition: Home, Self-Care Instructions: Tennis Elbow (ED) Additional Instructions: Your pain in right elbow is from tennis elbow /chronic epicondylitis No acute fracture was seen Pain medication as prescribed for severe pain You have received lidocaine injection in the right elbow to help in the pain Follow up with your ortho as planned Prescriptions: New oxycodone 5 mg tablet 5 mg PO Q6H PRN (Reason: pain) Qty: 20 0RF Rx Instructions: Partial Fill upon patient request. No Action (DME) arm brace Misc See Rx Instructions .Route Qty: 1 0RF Rx Instructions: As directed right Elbow support band Dx: lateral epicondylitis Humira(CF) Pen 40 mg/0.4 mL pen injector kit 40 mg subcut Q14D 28 Days Qty: 2 2RF Rx Instructions: PA needed. First dose administration in office. Patient needs to schedule nurse teaching visit. ondansetron 4 mg tablet,disintegrating 4 mg PO Q6H PRN (Reason: nausea and vomiting) Qty: 10 0RF esomeprazole magnesium 40 mg capsule,delayed release(DR/EC) 40 mg PO DAILY acetaminophen 500 mg tablet PO metoprolol succinate 25 mg tablet extended release 24 hr 25 mg PO DAILY norethindrone (contraceptive) 0.35 mg tablet PO albuterol sulfate 90 mcg/actuation HFA aerosol inhaler inhalation aripiprazole 5 mg tablet 5 mg PO BEDTIME Qty: 90 1RF clonazepam 0.5 mg tablet 0.5 mg PO .COMPLEX Qty: 45 2RF Rx Instructions: 0.5 mg orally take 1/2 tab daily prn anxiety and take one at bedtime every night; escitalopram oxalate 20 mg tablet 20 mg PO DAILY 90 Days Qty: 90 1RF mirtazapine 7.5 mg tablet 7.5 mg PO BEDTIME Qty: 90 1RF methocarbamol 500 mg tablet 500 mg PO BID Qty: 60 1RF diclofenac sodium [Arthritis Pain (diclofenac)] 1 % gel 4 g topical QID Qty: 100 5RF Rx Instructions: apply to affected area every 4-6 hours PRN Print Language: Turkish
[2025-01-27 03:39] VITALS: BP 104/60; PULSE 80; RESP 16; TEMP 36.4; O2SAT 100
[2025-01-27 03:40] VITALS: BP 104/60; PULSE 80; RESP 16; TEMP 36.4; O2SAT 100
[2025-01-27] MEDS: oxyCODONE HCl Immed Release 5 MG TABLET PO (03:42)
== END 2025-01-27 03:45 | disposition home or self-care (01) ==
PROVIDERS: Emergency Provider Internal Medicine; PCP Internal Medicine
DX: M77.11 Lateral epicondylitis, right elbow (principal); M25.521 Pain in right elbow
CPT/HCPCS: 73080; 99283; 99284

== ENCOUNTER → 2025-01-27 02:11 | Outpatient (BNV) | payer OTHER, SELFPAY | PROVIDERS: Emergency Provider Internal Medicine; PCP Internal Medicine; Visit Provider Radiology Diagnostic Radiology | DX: S42.401A Unspecified fracture of lower end of right humerus, initial encounter for closed fracture (principal) | CPT/HCPCS: 73080 ==

== ENCOUNTER 2025-02-12 10:36 | Outpatient (AMB) | payer OTHER, SELFPAY ==
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
--- OUTSIDE RECORDS SUMMARY | 2025-02-12 11:23 | XMS_ITS | Clinical Summary ---
Author Organization 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
--- OUTSIDE RECORDS SUMMARY | 2025-02-12 11:24 | XMS_ITS | Clinical Summary ---
Author Organization [facility] Address [address] [place] [address] Phone Care Team Providers Care Fruit Rancher Name Role Phone Cassius Alvarez MD Primary Care Provider [phone] Allergies Active Allergy Reactions Criticality Noted Date Comments Infliximab Headache Low 04/16/2021 Other reaction(s): Headaches, SEVERE HEADACHE Medications medical supply, miscellaneous (MISCELLANEOUS MEDICAL SUPPLY MISC) GLUCOSE BLOOD TEST STRIPS (ASCENSIA AUTODISC ,ONE TOUCH ULTRA TEST ) STRIP One glucose script per blood sugar check twice daily 2024 Active blood-glucose meter kit 1 Kit by Does not apply route daily. 024 Active escitalopram (LEXAPRO) 20 mg tablet Take 1 tablet (20 mg total) by mouth 1 (one) time each day. Active albuterol HFA (PROAIR HFA ; PROVENTIL HFA ; VENTOLIN HFA) 90 mcg/actuation inhaler Inhale 2 Puffs into the lungs every 4 hours as needed for Cough or Wheezing for up to 30 days. 022 Active mirtazapine (REMERON) 15 mg tablet Take 0.5 tablets (7.5 mg total) by mouth at bedtime. 021 Active albuterol 2.5 mg /3 mL (0.083 %) nebulizer solution Take 1 Vial by nebulization every 4 hours as needed. Active ARIPiprazole (ABILIFY) 5 mg tablet Take 1 tablet (5 mg total) by mouth 1 (one) time each day. at bedtime. Active clonazePAM (KlonoPIN) 0.5 mg tablet Take 1 tablet (0.5 mg total) by mouth 1 (one) time each day. Active esomeprazole (NexIUM) [address] capsule TAKE 1 CAPSULE(40 MG) BY MOUTH 1 TIME EACH DAY BEFORE BREAKFAST. DO NOT OPEN CAPSULE 90 capsule 3 Active famotidine (PEPCID) 40 mg tablet Take 1 tablet (40 mg total) by mouth at bedtime. 30 each 3 025 2025 Active ergocalciferol (VITAMIN D-2) 1,250 mcg (50,000 unit) capsule Take 1 capsule (50,000 Units total) by mouth 1 (one) time per week. 12 each 025 2025 Active metoprolol succinate (TOPROL-XL) 25 mg 24 hr tablet Take 1 tablet (25 mg total) by mouth 1 (one) time each day. Do not crush or chew. Active OneTouch Ultra Test test strip Use as instructed 100 each 12 Active Additional Information Patient taking differently: 1 each As needed, Use as instructed, Reported on 01/30/2025 acetaminophen (TYLENOL) 500 mg tablet Take 2 tablets (1,000 mg total) by mouth every 8 (eight) hours if needed for mild pain or moderate pain. 30 tablet Active methocarbamoL (ROBAXIN) 500 mg tablet Take 1 tablet (500 mg total) by mouth 1 (one) time each day if needed for muscle spasms. Active HYDROmorphone (DILAUDID) 4 mg tablet Take 1 tablet (4 mg total) by mouth every 6 (six) hours if needed for severe pain. Max Daily Amount: 16 mg 12 tablet Active Additional Information Patient not taking.Reported on 01/30/2025 docusate sodium (COLACE) 100 mg capsule Take 1 capsule (100 mg total) by mouth 2 (two) times a day. 14 each Active prochlorperazine (COMPAZINE) 25 mg suppository Insert 1 suppository (25 mg total) into the rectum every 8 (eight) hours if needed for nausea or vomiting. 30 suppository 1 Active norethindrone (RISSA,AYDE,HE ATHER,MICRONOR) 0.35 mg tablet Take 1 tablet (0.35 mg total) by mouth 1 (one) time each day. 84 tablet 1 Active ed-sa-eqoa-FA-vi t [id number] (DEKAs Bariatric) 22.5 mg-400 mcg -500 mcg-10 mg tablet,chewable Chew 1 tablet 1 (one) time each day. 30 tablet 025 2024 Active tiZANidine (ZANAFLEX) 2 mg tablet Take 1 tablet (2 mg total) by mouth. Active oxyCODONE (ROXICODONE) 5 mg immediate release tablet Take 1 tablet (5 mg total) by mouth every 6 (six) hours if needed. for pain Max Daily Amount: 20 mg Active omeprazole (PriLOSEC) [address] capsule Take 1 capsule (40 mg total) by mouth 1 (one) time each day. Active diclofenac (VOLTAREN) 1 % topical gel Apply 4 g topically 4 (four) times a day. Active cholecalciferol (VITAMIN D-3) 25 mcg (1,000 unit) capsule Take 1 capsule (1,000 Units total) by mouth 1 (one) time each day. Active Humira,CF, Pen 40 mg/0.4 mL pen Inject 0.4 mL (40 mg total) under the skin every 14 (fourteen) days. Active ondansetron ODT (ZOFRAN-ODT) 8 mg disintegrating tabletIndication s:History of gastric bypass,Nausea and vomiting, unspecified vomiting type Dissolve 1 tablet (8 mg total) on top of the tongue every 8 (eight) hours if needed for nausea or vomiting. 90 tablet 025 2025 Active tirzepatide, weight loss, (Zepbound) 2.5 mg/0.5 mL injection ADMINISTER 2.5 MG UNDER THE SKIN EVERY 7 DAYS 2 mL Active norethindrone (RISSA,AYDE,HE ATHER,MICRONOR) 0.35 mg tablet Take 1 tablet (0.35 mg total) by mouth 1 (one) time each day. 84 tablet 1 025 2024 Discontinued( Reorder) cyanocobalamin (Vitamin B-12) 500 mcg tablet Take 1 tablet (500 mcg total) by mouth 1 (one) time each day. 30 each 2 025 2024 Additional Information Patient not taking.Reported on 01/30/2025 prochlorperazine (COMPAZINE) 25 mg suppository UNWRAP AND INSERT 1 SUPPOSITORY(25 MG) RECTALLY EVERY 12 HOURS FOR UP TO 7 DAYS NEEDED FOR NAUSEA OR VOMITING 20 suppository 025 2024 Discontinued( Reorder) ondansetron ODT (ZOFRAN-ODT) 4 mg disintegrating tabletIndication s:Nausea Dissolve 1 tablet (4 mg total) on top of the tongue every 8 (eight) hours if needed for nausea or vomiting. 20 tablet 025 2024 Discontinued ti-xi-muts-FA-vi t [id number] (DEKAs Bariatric) 22.5 mg-400 mcg -500 mcg-10 mg tablet,chewable Chew 1 tablet 1 (one) time each day. 30 tablet 025 2024 Discontinued Zepbound 2.5 mg/0.5 mL injection Inject 0.5 mL (2.5 mg total) under the skin every 7 (seven) days. 025 2024 Discontinued Active Problems Problem Noted Date Diagnosed Date Nausea 01/20/2025 Nausea and vomiting, unspecified vomiting type 0 12/28/2024 Nausea and vomiting 12/21/2024 H/O gastric bypass 12/21/2024 Abdominal pain, generalized 12/15/2024 Abdominal pain, acute, epigastric 12/14/2024 Breakthrough bleeding on control pills Assessment & [...] reading 06/17/2022 Overview (04/26/2024): 06/17/2022 seen in [facility] ED and [facility] triage for [...] Bladder spasms 04/22/2022 Overview (04/26/2024): Went to [facility] on 03/25- discharged stable, advised to [...] cyst 11/25/2018 Overview (04/26/2024): 11/04/18 Presented to [facility] for abdominal pain. CT scan showed [...] her ferritin; follow-up in a few months [facility] Polysomnogram: Date 04/05/2019; Wt [...] related hypoventilation by 2019 polysomnogram. Ankylosing spondylitis (CMS/[facility] V24, CMS/[facility] V28 ) 03/31/2013 Overview (04/26/2024): Has been seen at [facility], rheumatology Dr. Valero as well as Dr. Murphy, Dr. Finch, now seeing Dr Brady at [facility]; also Dr Sanders 02/05/2022 under the care of [facility] in [place]. CBC, ESR, CRP, creatinine, AST and ALT ordered at that visit. Plan is to continue with Cimzia 400 mg SC monthly. OCD (obsessive compulsive disorder) 11/30/2012 Depression 10/21/2012 Overview (04/26/2024): History SI- IP Admits Nephrolithiasis 01/12/2012 Overview (04/26/2024): Noted December 2011 Last Assessment & Plan: [facility] 12/21 2 mm right ureteric stone ADHD (attention deficit hyperactivity disorder) 07/24/2011 Anxiety 07/24/2011 Asthma 07/24/2011 Migraine with aura 07/24/2011 Overview (04/26/2024): Dr Flowers Encounters Date Type Department Care Team Description 01/30/2025 8:50 AM EDT Office Visit Gastroenterology [facility] 175 [facility] 175 [facility] [address] [place] [phone] Anny Vogel PA History of gastric bypass (Primary Dx); Nausea and vomiting, unspecified vomiting type; Gastritis without bleeding, unspecified chronicity, unspecified gastritis type 01/23/2025 8:19 AM EDT - 01/23/2025 11:59 PM EDT Hospital Encounter [facility] Xray [address] [place] [phone] Nausea and vomiting, unspecified vomiting type Discharge Disposition: Home or Self Care 01/20/2025 2:58 PM EDT - 01/22/2025 1:31 PM EDT Hospital Encounter [facility] Medical Surgical Unit [address] [place] [address] Matt Hurd MD Fiallo, Viriato M, MD Nausea and vomiting, unspecified vomiting type (Primary Dx) Discharge Disposition: Home or Self Care 01/11/2025 11:00 AM EDT Office Visit Bariatric Surgery [facility] [address] [phone] Dayana rFost MD Obesity (BMI 30.0-34.9) (Primary Dx); Bariatric surgery status 12/28/2024 10:24 AM EDT Anesthesia Event [facility] Main OR [address] [place] [phone] Luna Goncalves MD Freeman, Katharine O, MD 12/28/2024 10:00 AM EDT - 12/28/2024 2:00 PM EDT Surgery [facility] Main OR [address] [place] [phone] Dayana Frost MD DAVINCI REVERSAL OF GASTRIC BYPASS [40926 (CPT )] 12/28/2024 7:51 AM EDT - 01/01/2025 1:18 PM EDT Hospital Encounter [facility] Medical Surgical Unit [address] [place] [phone] Dayana Frost MD Nausea and vomiting, unspecified vomiting type; H/O gastric bypass; Abdominal pain, generalized; Nausea Discharge Disposition: Home or Self Care 12/19/2024 9:45 AM EDT Anesthesia Event [facility] Endoscopy [address] [place] [phone] Dayron Leigh MD 12/14/2024 3:18 AM EDT - 12/21/2024 1:53 PM EDT Hospital Encounter [facility] Medical Surgical Unit [address] [place] [phone] Carla Almaraz MD Cauchon, Matthew C, DO Ogrodnik, Aleksandra P, MD Abdominal pain, generalized (Primary Dx); Nausea Discharge Disposition: Home or Self Care 11/22/2024 1:00 PM EDT Office Visit Bariatric Surgery - [place] [address] [phone] Dayana Frost MD S/P gastric bypass (Primary Dx); Obesity, Class II, BMI 35-39.9; Nausea from Last 3 Months Immunizations Name Administration Dates Next Due DTP 04/25/1993,02/23/1993,1992 [id number] (Pentacel) 2mo to less than 5yo 02/23/1994,04/25/1993,02/23/1993,12/24 [...] BYPASS ESOPHAGOGASTRODUODENOSCOPY BARIATRIC SURGERY CHOLECYSTECTOMY HERNIA REPAIR OTHER SURGICAL HISTORY MYOMECTOMY Medical History Medical History Date Comments Anxiety Depression GERD (gastroesophageal reflux disease) Asthma Arthritis Thoracic radiculopathy Chronic kidney disease kidney st ones Dizziness Chronic pain disorder PONV (postoperative nausea and vomiting) Abdominal pain NAUSEA FROM BYPA SS Family History Medical History Relation Name Comments [...] Sign Reading Time Taken Comments Blood Pressure 138/88 01/30/2025 8:47 AM EDT Pulse 87 01/30/2025 8:47 AM EDT Temperature 36.3 C (97.4 F) 01/22/2025 8:04 AM EDT Respiratory Rate 16 01/22/2025 8:04 AM EDT Oxygen Saturation 98% 01/30/2025 8:47 AM EDT Inhaled Oxygen Concentration - - Weight 87.1 kg (192 lb) 01/30/2025 8:47 AM EDT Height 160 cm (5' 3 ) 01/30/2025 8:47 AM EDT Body Mass Index 34.01 01/30/2025 8:47 AM EDT Plan of Treatment Upcoming Encounters Date Type Department Care Team (Late st Contact Info) Description 03/06/2025 8:15 AM EDT Appointment [facility] Xray [address] [place] [phone] 03/13/2025 11:00 AM EDT Office Visit Bariatric Surgery - [place] 175 [facility] [address] [place] [phone] Danny Thomas MD 175 [facility] [address] [place] [address] 03/16/2025 8:45 AM EDT Office Visit Bariatric Surgery - [place] 175 [facility] [address] [place] [phone] Dayana Frost MD 175 [facility] [address] [place] [phone] 04/17/2025 7:30 AM EDT Appointment [facility] Endoscopy [address] [place] [phone] Marlon Hills MD 299 [facility] [address] [place] [address] 05/07/2025 8:50 AM EDT Office Visit Gastroenterology - [place] 175 [facility] 175 [facility] [address] [place] [phone] Anny Vogel PA 175 [facility] [address] [place] [address] Health Maintenance Due Date Last Done Comments Pneumococcal Vaccine: Pediatrics (0 to 5 Years) and At-Risk Patients (6 to 49 Years) (1 of 2 - PCV) 10/16/2011 Medicare Annual Wellness Visit 06/20/2022 COVID-19 Vaccine ( season) 2024 05/28/2023, 04/18/2022, 10/09/2021, Additional history exists Depression Screening 07/12/2024 Influenza Vaccine (#1) 2025 , 05/19/2023, 04/18/2022, Additional history exists Social Influencers of Health Screening 12/18/2025 12/18/2024 Cervical Cancer Screening: HPV 09/29/2027 09/28/2022 Cholesterol [...] Completed 01/27/2022 Hepatitis C Screening Completed 01/27/2022 Hepatitis A Vaccines Aged Out No long [...] EDT Nausea and vomiting, unspecified vomiting type LAVENDER - EDTA Routine 01/22/2025 5:28 AM EDT EXTRA TUBES Routine 01/22/2025 5:28 AM EDT PHOSPHORUS Routine 01/22/2025 5:28 AM EDT MAGNESIUM Routine 01/22/2025 5:28 AM EDT BASIC METABOLIC PANEL Routine 01/22/2025 5:28 AM EDT ECG ANNOTATED 01/22/2025 BASIC METABOLIC PANEL Routine 01/21/2025 8:27 AM EDT PHOSPHORUS Routine 01/21/2025 8:27 AM EDT MAGNESIUM Routine 01/21/2025 8:[address] ABDOMEN PELVIS W CONTRAST STAT 01/20/2025 5:16 PM EDT ECG 12-LEAD STAT 01/20/2025 4:34 PM EDT CBC WITH AUTO DIFFERENTIAL STAT 01/20/2025 1:24 PM EDT LIPASE STAT 01/20/2025 1:24 PM EDT MAGNESIUM STAT 01/20/2025 1:24 PM EDT COMPREHENSIVE METABOLIC PANEL STAT 01/20/2025 1:24 PM EDT CBC AND DIFFERENTIAL STAT 01/20/2025 1:24 PM EDT POCT GLUCOSE BLOOD Routine 01/01/2025 12:00 PM EDT POCT GLUCOSE BLOOD Routine 01/01/2025 5: 59 AM EDT POCT GLUCOSE BLOOD Routine 01/01/2025 12:19 AM EDT POCT GLUCOSE BLOOD Routine 12/31/2024 6: 03 PM EDT POCT GLUCOSE BLOOD Routine 12/31/2024 11:45 AM EDT CBC WITH AUTO DIFFERENTIAL STAT 12/31/2024 7:15 AM EDT PHOSPHORUS STAT 12/31/2024 7:15 AM EDT MAGNESIUM STAT 12/31/2024 7:15 AM EDT BASIC METABOLIC PANEL STAT 12/31/2024 7:15 AM EDT CBC AND DIFFERENTIAL STAT 12/31/2024 7:15 AM EDT POCT GLUCOSE BLOOD Routine 12/31/2024 6: 15 AM EDT POCT GLUCOSE BLOOD Routine 12/31/2024 12:31 AM EDT POCT GLUCOSE BLOOD Routine 12/30/2024 6: 49 PM EDT POCT GLUCOSE BLOOD Routine 12/30/2024 12:40 PM EDT CBC WITH AUTO DIFFERENTIAL Routine 12/30/2024 5:52 AM EDT MAGNESIUM Routine 12/30/2024 5:52 AM EDT CBC AND DIFFERENTIAL Routine 12/30/2024 5:52 AM EDT BASIC METABOLIC PANEL Routine 12/30/2024 5:52 AM EDT POCT GLUCOSE BLOOD Routine 12/30/2024 5: 29 AM EDT POCT GLUCOSE BLOOD Routine 12/30/2024 12:07 AM EDT POCT GLUCOSE BLOOD Routine 12/29/2024 1: 38 PM EDT POCT GLUCOSE BLOOD Routine 12/29/2024 9: 50 AM EDT CBC WITH AUTO DIFFERENTIAL Routine 12/29/2024 6:10 AM EDT BASIC METABOLIC PANEL Routine 12/29/2024 6:10 AM EDT CBC AND DIFFERENTIAL Routine 12/29/2024 6:10 AM EDT PHOSPHORUS Routine 12/29/2024 6:10 AM EDT MAGNESIUM Routine 12/29/2024 6:10 AM EDT POCT GLUCOSE BLOOD Routine 12/29/2024 12:34 AM EDT POCT GLUCOSE BLOOD Routine 12/28/2024 6: 49 PM EDT TISSUE EXAM Routine 12/28/2024 1:35 PM EDT Nausea and vomiting, unspecified vomiting type H/O gastric bypass TH AN ENDOTRACHEAL(NO CHARGE) Routine 12/28/2024 10:59 AM EDT NV UNLISTED PROCEDURE LAPAROSCOPY INTESTINE EXCEPT RECTUM 12/28/2024 10:23 AM EDT Nausea and vomiting, unspecified vomiting type H/O gastric bypass Special Needs Patient is being discharged and will come back in for surgery - 210 minutes please ECG ANNOTATED 12/22/2024 POCT GLUCOSE BLOOD Routine 12/21/2024 11:29 AM EDT POCT GLUCOSE BLOOD Routine 12/21/2024 8: 02 AM EDT LAVENDER - EDTA Routine 12/21/2024 6:50 AM EDT EXTRA TUBES Routine 12/21/2024 6:50 AM EDT POCT GLUCOSE BLOOD Routine 12/21/2024 6: 12 AM EDT HEPATIC FUNCTION PANEL Routine 12/21/2024 5:49 AM EDT TRIGLYCERIDES Routine 12/21/2024 5:49 AM EDT PHOSPHORUS Routine 12/21/2024 5:49 AM EDT MAGNESIUM Routine 12/21/2024 5:49 AM EDT BASIC METABOLIC PANEL Routine 12/21/2024 5:49 AM EDT POCT GLUCOSE BLOOD Routine 12/20/2024 7: 46 PM EDT POCT GLUCOSE BLOOD Routine 12/20/2024 4: 09 PM EDT POCT GLUCOSE BLOOD Routine 12/20/2024 11:34 AM EDT POCT GLUCOSE BLOOD Routine 12/20/2024 11:11 AM EDT POCT GLUCOSE BLOOD Routine 12/20/2024 10:50 AM EDT POCT GLUCOSE BLOOD Routine 12/20/2024 7: 53 AM EDT POCT GLUCOSE BLOOD Routine 12/19/2024 8: 50 PM EDT POCT GLUCOSE BLOOD Routine 12/19/2024 3: 44 PM EDT PHOSPHORUS STAT 12/19/2024 12:48 PM EDT MAGNESIUM STAT 12/19/2024 12:48 PM EDT BASIC METABOLIC PANEL STAT 12/19/2024 12:48 PM EDT POCT GLUCOSE BLOOD Routine 12/19/2024 11:08 AM EDT POCT GLUCOSE BLOOD Routine 12/19/2024 10:55 AM EDT POCT GLUCOSE BLOOD Routine 12/19/2024 10:30 AM EDT EGD Routine 12/19/2024 10:01 AM EDT Abdominal pain, generalized POCT GLUCOSE BLOOD Routine 12/19/2024 8: 46 AM EDT POCT GLUCOSE BLOOD Routine 12/19/2024 8: 05 AM EDT POCT GLUCOSE BLOOD Routine 12/18/2024 7: 42 PM EDT POCT GLUCOSE BLOOD Routine 12/18/2024 3: 38 PM EDT POCT GLUCOSE BLOOD Routine 12/18/2024 11:37 AM EDT POCT GLUCOSE BLOOD Routine 12/18/2024 8: 55 AM EDT POCT GLUCOSE BLOOD Routine 12/18/2024 7: 40 AM EDT LIPASE Add-On 12/18/2024 7:03 AM EDT SST - GOLD Routine 12/18/2024 7:03 AM EDT EXTRA TUBES Routine 12/18/2024 7:03 AM EDT CBC WITH AUTO DIFFERENTIAL Routine 12/18/2024 7:03 AM EDT PHOSPHORUS Routine 12/18/2024 7:03 AM EDT MAGNESIUM Routine 12/18/2024 7:03 AM EDT CBC AND DIFFERENTIAL Routine 12/18/2024 7:03 AM EDT BASIC METABOLIC PANEL Routine 12/18/2024 7:03 AM EDT LAVENDER - EDTA Routine 12/18/2024 6:27 AM EDT EXTRA TUBES Routine 12/18/2024 6:27 AM EDT POCT GLUCOSE BLOOD Routine 12/17/2024 8: 05 PM EDT POCT GLUCOSE BLOOD Routine 12/17/2024 5: 32 PM EDT POCT GLUCOSE BLOOD Routine 12/17/2024 3: 08 PM EDT POCT GLUCOSE BLOOD Routine 12/17/2024 11:01 AM EDT POCT GLUCOSE BLOOD Routine 12/17/2024 7: 23 AM EDT MAGNESIUM Routine 12/17/2024 6:59 AM EDT BASIC METABOLIC PANEL Routine 12/17/2024 6:59 AM EDT LAVENDER - EDTA Routine 12/17/2024 6:58 AM EDT EXTRA TUBES Routine 12/17/2024 6:58 AM EDT POCT GLUCOSE BLOOD Routine 12/16/2024 8: 26 PM EDT POCT GLUCOSE BLOOD Routine 12/16/2024 4: 02 PM EDT POCT GLUCOSE BLOOD Routine 12/16/2024 12:07 PM EDT POCT GLUCOSE BLOOD Routine 12/16/2024 10:50 AM EDT POCT GLUCOSE BLOOD Routine 12/16/2024 8: 54 AM EDT POCT GLUCOSE BLOOD Routine 12/16/2024 7: 39 AM EDT CBC WITH AUTO DIFFERENTIAL Routine 12/16/2024 6:10 AM EDT PHOSPHORUS Routine 12/16/2024 6:10 AM EDT MAGNESIUM Routine 12/16/2024 6:10 AM EDT CBC AND DIFFERENTIAL Routine 12/16/2024 6:10 AM EDT BASIC METABOLIC PANEL Routine 12/16/2024 6:10 AM EDT POCT GLUCOSE BLOOD Routine 12/15/2024 7: 49 PM EDT POCT GLUCOSE BLOOD Routine 12/15/2024 5: 29 PM EDT POCT GLUCOSE BLOOD Routine 12/15/2024 3: 56 PM EDT POCT GLUCOSE BLOOD Routine 12/15/2024 12:37 PM EDT POCT GLUCOSE BLOOD Routine 12/15/2024 11:20 AM EDT CBC WITH AUTO DIFFERENTIAL Routine 12/15/2024 8:36 AM EDT CBC AND DIFFERENTIAL Routine 12/15/2024 8:36 AM EDT POCT GLUCOSE BLOOD Routine 12/15/2024 8: 30 AM EDT POCT GLUCOSE BLOOD Routine 12/15/2024 7: 52 AM EDT PHOSPHORUS Routine 12/15/2024 6:50 AM EDT MAGNESIUM Routine 12/15/2024 6:50 AM EDT BASIC METABOLIC PANEL Routine 12/15/2024 6:50 AM EDT POCT GLUCOSE BLOOD Routine 12/14/2024 8: 20 PM EDT POCT GLUCOSE BLOOD Routine 12/14/2024 4: 27 PM EDT POCT GLUCOSE BLOOD Routine 12/14/2024 11:30 AM EDT POCT GLUCOSE BLOOD Routine 12/14/2024 9: [address] ABDOMEN PELVIS W CONTRAST STAT 12/14/2024 6:00 AM EDT XR CHEST 2 VIEWS STAT 12/14/2024 3:44 AM EDT TROPONIN I HIGH SENSITIVITY STAT 12/14/2024 3:34 AM EDT POC , URINE DIAGNOSTIC STAT 12/13/2024 11:03 PM EDT MCARTHUR URINE CULTURE TUBE STAT 12/13/2024 11:01 PM EDT URINALYSIS WITH REFLEX MICROSCOPIC AND CULTURE STAT 12/13/2024 11:01 PM EDT URINALYSIS WITH REFLEX MICROSCOPIC AND CULTURE STAT 12/13/2024 11:01 PM EDT MANUAL DIFFERENTIAL - SYSMEX WAM STAT 12/13/2024 10:47 PM EDT LIPASE STAT Add-on 12/13/2024 10:47 PM EDT CBC WITH AUTO DIFFERENTIAL STAT 12/13/2024 10:47 PM EDT TROPONIN I HIGH SENSITIVITY STAT 12/13/2024 10:47 PM EDT BASIC METABOLIC PANEL STAT 12/13/2024 10:47 PM EDT CBC AND DIFFERENTIAL STAT 12/13/2024 10:47 PM EDT ECG 12-LEAD STAT 12/13/2024 10:40 PM EDT LIPID PANEL Routine 05/21/2023 HPV Routine 09/28/2022 HEPATITIS C SCREENING Routine 01/27/2022 HIV SCREENING Routine 01/27/2022 from Last 3 Months or Most Recently Relevant to Health Maintenance Results * XR UGI w Air Contrast [...] Signed Date: 01/23/2025 11:53 ET Workstation ID: [id number] Transcribed By: Self Edit Transcribed Date: 01/23/2025 11:41 ET Resident/PA/DIRECTOR OF REIMBURSEMENT: Willow Oliver Narrative 01/23/2025 11:53 AM EDT FINDINGS: Double contrast UGI performed. COMPARISON: Upper GI imaging November 23 and October 18, 2023 ; CT abdomen and pelvis with contrast January 20, 2025 reviewed. HISTORY: Patient is a 34-year-old female with history of vomiting status post gastric bypass reversal December 28, 2024. Question gastric-gastric anastomosis narrowing DOCK PUMPER radiographs: Agricultural Equipment Salesperson AP radiograph of the abdomen obtained. Bowel [...] reversal December 28, 2024. Question gastric-gastricanastomosis narrowing DOCK PUMPER radiographs: Agricultural Equipment Salesperson AP radiograph of the abdomen obtained. Bowel [...] Signed Date: 01/23/2025 11:53 ET Workstation ID: [id number] Transcribed By: Self Edit Transcribed Date: 01/23/2025 11:41 ET Resident/PA/DIRECTOR OF REIMBURSEMENT: Willow Oliver Denice LINDO IMG FLUOROSCOPY PROCEDUR ES Final Result * Lavender tube (01/22/2025 5:28 AM EDT) Only the most recent of4 resultswithin the time period is included. Extra Tube Hold for add-ons. 01/22/2025 8:01 AM EDT [facility] Comment:Auto resulted. Blood Venous blood specimen / Unknown Venipuncture / Unknown 01/22/2025 5:28 AM EDT 01/22/2025 6:20 AM EDT Danny Thomas MD LAB BLOOD ORDERABLES Final R esult [facility] [address] [place] [address], [place] [phone] * Phosphorus (01/22/2025 5:28 AM EDT) Only the most recent of9 resultswithin the time period is included. Phosphorus 4.0 2.5 - 4.5 mg/dL LAB CHEMISTRY METHOD 01/22/2025 7:39 AM EDT [facility] Blood Venous blood specimen / Unknown Venipuncture / Unknown 01/22/2025 5:28 AM EDT 01/22/2025 6:18 AM EDT Awilda LINDO LAB BLOOD ORDERABLES Final Res ult [facility] [address] [place] [address], [place] [phone] * Magnesium (01/22/2025 5:28 AM EDT) Only the most recent of12 resultswithin the time period is included. [facility] Magnesium 2.1 1.9 - 2.6 mg/dL LAB CHEMISTRY METHOD [facility]/22[facility]25 7[facility]:Hemolysis present Blood Venous blood specimen / Unknown Venipuncture / Unknown 01/22/2025 5:28 AM EDT 01/22/2025 6:18 AM EDT us Awilda LINDO LAB BLOOD ORDERABLES Final Res ult [facility] [address] [place] [address], [place] [phone] * (ABNORMAL) Basic metabolic panel (01/22/2025 5:28 AM EDT) Only the most recent of12 resultswithin the time period is included. [facility] Sodium 140 133 - 145 mmol/L LAB CHEMISTRY METHOD 01/22/2025 7:39 AM [facility] Potassium 3.9 3.5 - 5.5 mmol/L LAB CHEMISTRY METHOD 01/22/2025 7:39 AM [facility] Comment:Hemolysis present Chloride 109 96 - 110 mmol/L LAB CHEMISTRY METHOD 01/22/2025 7:39 AM [facility] CO2 24 21 - 32 mmol/L LAB CHEMISTRY METHOD 01/22/2025 7:39 AM [facility] Anion Gap 7 3 - 11 LAB CHEMISTRY METHOD 01/22/2025 7:39 AM [facility] Glucose 68(L) 70 - 100 mg/dL LAB CHEMISTRY METHOD 01/22/2025 7:39 AM [facility] BUN 4(L) 5 - 25 mg/dL LAB CHEMISTRY METHOD 01/22/2025 7:39 AM EDT [facility] Creatinine 0.54 0.50 - 1.10 mg/dL LAB CHEMISTRY METHOD 01/22/2025 7:39 AM EDT [facility] eGFR 126 >=60 mL/min/1. 73m2 LAB CHEMISTRY METHOD 01/22/2025 7:39 AM EDT [facility] Comment:Calculation based on the Chronic Kidney Disease Epidemiology Collaboration (CKD-EPI) equation refit without adjustment for race. BUN/Creatinine Ratio 7.4 LAB CHEMISTRY METHOD 01/22/2025 7:39 AM EDT [facility] Calcium 8.9 8.5 - 10.5 mg/dL LAB CHEMISTRY METHOD 01/22/2025 7:39 AM EDT [facility] Blood Venous blood specimen / Unknown Venipuncture / Unknown 01/22/2025 5:28 AM EDT 01/22/2025 6:18 AM EDT Awlida LINDO LAB BLOOD ORDERABLES Final Res ult [facility] [address] [place] [address], * ECG-Annotated (01/22/2025) Only the most recent of2 resultswithin the time period is included. Provider Onbase MD ECG ORDERABLES Final Result * CT Abdomen Pelvis w Contrast (01/20/2025 5:16 PM EDT) Only the most recent of2 resultswithin the time period is included. Anatomical Region Laterality Modality Body Computed Tomogra phy 01/20/2025 5:56 PM EDT Impressions 01/20/2025 5:56 PM EDT 1. No cause for patient's symptoms identified. No bowel obstruction. No evidence of appendicitis. 2. Dominant right ovarian cyst/follicle measuring up to 2.0 cm. This document has been electronically signed by: Alexi Cohen MD on 01/20/2025 17:56:57 Narrative 01/20/2025 5:56 PM EDT INDICATION: Abdominal distension CT abdomen and pelvis with IV contrast. COMPARISON: CT abdomen and pelvis dated 12/14/24 at 05:59 EDT FINDINGS: Partially visualized lung bases are unremarkable. Focal fatty infiltration along the falciform ligament. Cholecystectomy. Normal spleen. Normal pancreas. Normal adrenal glands. Symmetric renal enhancement. No hydronephrosis. Appendix is poorly visualized and is likely markedly diminutive. No evidence of appendicitis. Oral contrast has progressed into the mid small bowel. Suture material present along the stomach fundus and body. Suture material present along loops of small bowel within the midabdomen on the left. No mesenteric or retroperitoneal lymphadenopathy. Normal abdominal aorta. Urinary bladder is unremarkable given degree of distention. No adnexal mass. Dominant right ovarian cyst/follicle measuring up to 2.0 cm. No acute fracture or suspicious bone lesion. Procedure Note Alexi Cohen MD - 01/20/2025 INDICATION: Abdominal distension CT abdomen and pelvis with IV contrast. COMPARISON: CT abdomen and pelvis dated 12/14/24 at 05:59 EDT FINDINGS: Partially visualized lung bases are unremarkable. Focal fatty infiltration along the falciform ligament. Cholecystectomy. Normal spleen. Normal pancreas. Normal adrenal glands. Symmetric renal enhancement. No hydronephrosis. Appendix is poorly visualized and is likely markedly diminutive. No evidence of appendicitis. Oral contrast has progressed into the midsmall bowel. Suture material present along the stomach fundus and body. Suture material present along loops of small bowel within the midabdomen on the left. No mesenteric or retroperitoneal lymphadenopathy. Normal abdominal aorta. Urinary bladder is unremarkable given degree of distention. No adnexal mass. Dominant right ovarian cyst/follicle measuring up to2.0 cm. No acute fracture or suspicious bone lesion. IMPRESSION: 1. No cause for patient's symptoms identified. No bowel obstruction. No evidence of appendicitis. 2. Dominant right ovarian cyst/follicle measuring up to 2.0 cm. This document has been electronically signed by: Alexi Cohen MD on 01/20/2025 17:56:57 Matt Hurd MD IM CT PROCEDURES Final Result * 12-Lead ECG (01/20/2025 4:34 PM EDT) Only the most recent of2 resultswithin the time period is included. Ventricular Rate ECG 87 BPM GEMUSE Atrial Rate 87 BPM GEMUSE P-R Interval 106 ms GEMUSE QRS Duration 72 ms GEMUSE Q-T Interval 382 ms GEMUSE QTc 459 ms GEMUSE P Wave [place] 74 degrees GEMUSE R [place] -19 degrees GEMUSE T [place] 37 degrees GEMUSE ECG Interpretation Sinus rhythm Nonspecific ST and T wave abnormality Abnormal ECG When compared with ECG of 13-DEC-2024 22:40, Premature atrial complexes are no longer Present Flat T waves now evident in lateral precordial leads Confirmed by YOU ALDANA ([id number]) on 01/21/2025 3:50:31 PM GEMUSE 01/20/2025 4:34 PM EDT 01/21/2025 3:50 PM EDT Matt Hurd MD ECG ORDERABLES Final Result GEMUSE * (ABNORMAL) CBC auto differential (01/20/2025 1:24 PM EDT) Only the most recent of8 resultswithin the time period is included. [facility] WBC 10.5 4.8 - 10.8 K/mcL LAB HEMETOLOGY METHOD 01/20/2025 1:46 PM EDT [facility] RBC 4.50 3.80 - 4.80 M/mcL LAB HEMETOLOGY METHOD 01/20/2025 1:46 PM EDT [facility] Hemoglobin 14.6 11.5 - 16.0 g/dL LAB HEMETOLOGY METHOD 01/20/2025 1:46 PM EDT [facility] Hematocrit 44.3 35.0 - 47.0 % LAB HEMETOLOGY METHOD 01/20/2025 1:46 PM EDT [facility] MCV 98.4(H) 79.0 - 98.0 FL LAB HEMETOLOGY METHOD 01/20/2025 1:46 PM EDT [facility] MCH 32.4(H) 27.0 - 32.0 pcg LAB HEMETOLOGY METHOD 01/20/2025 1:46 PM EDT [facility] MCHC 33.0 32.0 - 37.0 g/dL LAB HEMETOLOGY METHOD 01/20/2025 1:46 PM [facility] RDW 12.4 11.0 - 15.0 % LAB HEMETOLOGY METHOD 01/20/2025 1:46 PM EDT [facility] Platelets 299 130 - 400 K/mcL LAB HEMETOLOGY METHOD 01/20/2025 1:46 PM [facility] MPV 10.7 7.0 - 11.0 FL LAB HEMETOLOGY METHOD 01/20/2025 1:46 PM [facility] NRBC 0.0 <1.0 % LAB HEMETOLOGY METHOD 01/20/2025 1:46 PM [facility] NRBC Absolute 0.00 <0.10 K/mcL LAB HEMETOLOGY METHOD 01/20/2025 1:46 PM [facility] Neutrophils Relative 64.8 % LAB HEMETOLOGY METHOD 01/20/2025 1:46 PM [facility] Lymphocytes Relative 27.3 % LAB HEMETOLOGY METHOD 01/20/2025 1:46 PM [facility] Monocytes Relative 5.2 % LAB HEMETOLOGY METHOD 01/20/2025 1:46 PM [facility] Eosinophils Relative 1.8 % LAB HEMETOLOGY METHOD 01/20/2025 1:46 PM [facility] Basophils Relative 0.6 % LAB HEMETOLOGY METHOD 01/20/2025 1:46 PM [facility] Immature Granulocytes Relative 0.3 % LAB HEMETOLOGY METHOD 01/20/2025 1:46 PM EDT [facility] Neutrophils Absolute 6.82 1.50 - 7.00 K/mcL LAB HEMETOLOGY METHOD 01/20/2025 1:46 PM EDT [facility] Lymphocytes Absolute 2.87 1.00 - 5.00 K/mcL LAB HEMETOLOGY METHOD 01/20/2025 1:46 PM EDT [facility] Monocytes Absolute 0.55 0.20 - 1.00 K/mcL LAB HEMETOLOGY METHOD 01/20/2025 1:46 PM EDT [facility] Eosinophils Absolute 0.19 0.00 - 0.50 K/mcL LAB HEMETOLOGY METHOD 01/20/2025 1:46 PM EDT [facility] Basophils Absolute 0.06 0.00 - 0.20 K/mcL LAB HEMETOLOGY METHOD 01/20/2025 1:46 PM EDT [facility] Immature Granulocytes Absolute 0.03 0.00 - 0.03 K/mcL LAB HEMETOLOGY METHOD 01/20/2025 1:46 PM EDT [facility] Blood Venous blood specimen / Unknown Venipuncture / Unknown 01/20/2025 1:24 PM EDT 01/20/2025 1:39 PM EDT us Matt Hurd MD LAB BLOOD ORDERABLES Final Res ult [facility] [address] [place] [address], * Lipase (01/20/2025 1:24 PM EDT) Only the most recent of3 resultswithin the time period is included. Lipase 34 13 - 75 unit/L LAB CHEMISTRY METHOD 01/20/2025 2:30 PM EDT [facility] Blood Venous blood specimen / Unknown Venipuncture / Unknown 01/20/2025 1:24 PM EDT 01/20/2025 1:39 PM EDT us Matt Hurd MD LAB BLOOD ORDERABLES Final Res ult [facility] [address] [place] [address], [place] [phone] * Comprehensive metabolic panel (01/20/2025 1:24 PM EDT) Sodium 140 133 - 145 mmol/L LAB CHEMISTRY METHOD 01/20/2025 2:17 PM EDT [facility] Potassium 3.9 3.5 - 5.5 mmol/L LAB CHEMISTRY METHOD 01/20/2025 2:17 PM [facility] Chloride 109 96 - 110 mmol/L LAB CHEMISTRY METHOD 01/20/2025 2:17 PM [facility] CO2 25 21 - 32 mmol/L LAB CHEMISTRY METHOD 01/20/2025 2:17 PM [facility] Anion Gap 6 3 - 11 LAB CHEMISTRY METHOD 01/20/2025 2:17 PM [facility] Glucose 82 70 - 100 mg/dL LAB CHEMISTRY METHOD 01/20/2025 2:17 PM [facility] BUN 9 5 - 25 mg/dL LAB CHEMISTRY METHOD 01/20/2025 2:17 PM [facility] Creatinine 0.73 0.50 - 1.10 mg/dL LAB CHEMISTRY METHOD 01/20/2025 2:17 PM [facility] eGFR 112 >=60 mL/min/1. 73m2 LAB CHEMISTRY METHOD 01/20/2025 2:17 PM [facility] Comment:Calculation based on the Chronic Kidney Disease Epidemiology Collaboration (CKD-EPI) equation refit without adjustment for race. BUN/Creatinine Ratio 12.3 LAB CHEMISTRY METHOD 01/20/2025 2:17 PM [facility] Calcium 9.4 8.5 - 10.5 mg/dL LAB CHEMISTRY METHOD 01/20/2025 2:17 PM EDT [facility] AST (SGOT) 11 10 - 42 unit/L LAB CHEMISTRY METHOD 01/20/2025 2:17 PM EDT [facility] ALT (SGPT) 20 10 - 60 unit/L LAB CHEMISTRY METHOD 01/20/2025 2:17 PM EDT [facility] Alkaline Phosphatase 107 42 - 121 unit/L LAB CHEMISTRY METHOD 01/20/2025 2:17 PM EDT [facility] Total Protein 7.8 6.0 - 8.0 g/dL LAB CHEMISTRY METHOD 01/20/2025 2:17 PM EDT [facility] Albumin 4.0 3.2 - 5.0 g/dL LAB CHEMISTRY METHOD 01/20/2025 2:17 PM EDT [facility] Total Bilirubin 0.5 0.0 - 1.4 mg/dL LAB CHEMISTRY METHOD 01/20/2025 2:17 PM EDT [facility] Blood Venous blood specimen / Unknown Venipuncture / Unknown 01/20/2025 1:24 PM EDT 01/20/2025 1:39 PM EDT us Matt Hurd MD LAB BLOOD ORDERABLES Final Res ult [facility] [address] [place] [address], * POCT Glucose, blood (01/01/2025 12:00 PM EDT) Only the most recent of58 resultswithin the time period is included. Glucose POCT 75 70 - 100 mg/dL 01/01/2025 12:01 PM EDT [facility] Blood Capillary blood specimen / Unknown 01/01/2025 12:00 PM EDT 01/01/2025 12:07 PM EDT us Dayana Frost MD LAB POINT OF CA RE TEST DOCKED DEVICE UNSOLICITED RESULTS Final Result [facility] [address] [place] [address], [place] [phone] * Tissue exam (12/28/2024 1:35 PM EDT) Final Diagnosis A. Small Intestine, Jejunum, partial jejunum: - Small intestinal segment with congestion and focal submucosal edema. - Margins appear viable. B. Small Intestine, Jejunum, partial jejunum #2: - Small intestinal segment with small intestinal anastomosis and congestion. - Margins appear viable. 01/01/2025 12:41 PM EDT [facility] Gross Description A. Small Intestine, Jejunum, partial jejunum: Labeled ID:1, jejunum, partial j . Received in formalin is a 2.5 cm in length by 4 cm in diameter unoriented segment of small bowel with two stapled margins and minimal attached fat. The serosa is pink-red, smooth, and glistening. The mucosa is alsa-pink, and glistening with normal folds. The cut surfaces display embedded healed-over epifanio. The margins are differentially inked. [employer] complete longitudinal full-thickness sections are submitted in two cassettes, two pieces each. B. Small Intestine, Jejunum, partial jejunum #2: Labeled ID:2, jejunum, partial j . Received in formalin is a 5 x 3.5 x 2.5 cm small bowel specimen consisting of two segments of small bowel connected by an anastomosis. One segment is a blind loop (3 x 2 cm). The other segment has a stapled margin (inked black). The serosa is pink-purple, smooth and glistening. The anastomosis is intact. The mucosa is alas-pink and glistening with normal folds. [employer] sections are submitted as follows: 1, perpendicular margin, two pieces 2, tissue adjacent to anastomosis, two pieces 3, blind loop, two pieces NOREEN 01/01/2025 12:41 PM EDT [facility] Disclaimer Unless otherwise specified, all tissue is 10% NB formalin fixed and paraffin embedded. 01/01/2025 12:41 PM EDT [facility] Tissue Jejunal structure / Unknown 12/28/2024 1:35 PM EDT 12/28/2024 4:18 PM EDT Tissue specimen (specimen) Jejunal structure / Unknown 12/28/2024 3:07 PM EDT 12/28/2024 4:18 PM EDT us Dayana Frost MD LAB PATHOLOGY ORDERABLE S Final Result [facility] [address] [place] [address], * TH AN ENDOTRACHEAL(NO CHARGE) (12/28/2024 10:59 AM EDT) Narrative Kristie Linda MD - 12/28/2024 10:59 AM EDT Kristie Linda MD 12/28/2024 11:02 AM General Information and Staff Patient location during procedure: OR Anesthesiologist: Kristie Linda MD Performed: anesthesiologist Performed by: Kristie Linda MD Authorized by: Kristie Linda MD Intubation Additional Comments Dl with grade 1 view- unable to pass ETT- kept going to esophagus- change to glidescope easy grade 1 Airway not difficult Urgency: elective Final Airway Details Successful airway: ETT Cuffed: yes Successful intubation technique: video laryngoscopy Blade: Landers Blade size: #3 ETT size (mm): 7.5 Cormack-Lehane Classification: grade I - full view of glottis Placement verified by: chest auscultation and capnometry Cuff volume (mL): 8 Measured from: gums ETT to gums (cm): 20 Number of attempts at approach: 2 Ventilation between attempts: BVM Number of other approaches attempted: 1Final airway type: endotracheal airway Indications and Patient Condition Indications for airway management: anesthesia Spontaneous Ventilation: absent Sedation level: Yes Preoxygenated: yes Soft Tissue Damage: No Dentition Unchanged: Yes Patient position: reverse Trendelenburg Mask difficulty assessment: 1 - vent by mask Start Time: 12/28/2024 10:40 AMStop Time: 12/28/2024 10:42 AM Kristie Linda MD ANESTHESIA ORDERABLES Fin al Result * Triglycerides (12/21/2024 5:49 AM EDT) Pathologist [facility] Triglycerides 121 0 - 150 mg/dL LAB CHEMISTRY METHOD 12/21/2024 8:18 AM EDT [facility] Blood Venous blood specimen / Unknown Venipuncture / Unknown 12/21/2024 5:49 AM EDT 12/21/2024 7:14 AM EDT Denice LINDO LAB BLOOD ORDERABLES Fin al Result [facility] [address] [place] [address], * Hepatic function panel (12/21/2024 5:49 AM EDT) [facility] Total Protein 6.4 6.0 - 8.0 g/dL LAB CHEMISTRY METHOD 12/21/2024 8:20 AM EDT [facility] Albumin 3.2 3.2 - 5.0 g/dL LAB CHEMISTRY METHOD 12/21/2024 8:20 AM [facility] Total Bilirubin 0.3 0.0 - 1.4 mg/dL LAB CHEMISTRY METHOD 12/21/2024 8:20 AM T [facility] Bilirubin, Direct <0.1 0.0 - 0.3 mg/dL LAB CHEMISTRY METHOD 12/21/2024 8:20 AM EDT [facility] Bilirubin, Indirect LAB CHEMISTRY METHOD 12/21/2024 8:20 AM [facility] Comment:Unable to calculate Indirect Bilirubin. ALT (SGPT) 25 10 - 60 unit/L LAB CHEMISTRY METHOD 12/21/2024 8:20 AM EDT [facility] AST (SGOT) 19 10 - 42 unit/L LAB CHEMISTRY METHOD 12/21/2024 8:20 AM EDT [facility] Alkaline Phosphatase 106 42 - 121 unit/L LAB CHEMISTRY METHOD 12/21/2024 8:20 AM EDT [facility] Blood Venous blood specimen / Unknown Venipuncture / Unknown 12/21/2024 5:49 AM EDT 12/21/2024 7:14 AM EDT us Denice LINDO LAB BLOOD ORDERABLES Fin al Result [facility] [address] [place] [address], * EGD Anesthesia - MAC; [facility] (12/19/2024 10:01 AM EDT) Anatomical Region Laterality Modality Other 12/19/2024 9:45 AM EDT Impressions 12/19/2024 10:00 AM EDT - Z-line regular, 35 cm from the incisors. - Normal esophagus. - Gastric bypass with a small-sized pouch and intact staple line. Gastrojejunal anastomosis characterized by healthy appearing mucosa. - No specimens collected. Recommendation: - [facility]. - Resume previous diet. - Continue present medications. - Observe patient's clinical course. Narrative 12/19/2024 10:00 AM EDT [facility] Patient Name: Jia Arenas Procedure Date: 12/19/2024 9:45 AM Date of : 1990 Age: 34 Room: ROOM 14 Gender: Female Note Status: Finalized Attending MD: Marlon Hills MD, Procedure Date No Time: 12/19/2024 Procedure: Upper GI endoscopy Indications: Epigastric abdominal pain, Nausea with vomiting Providers: Marlon Hills MD Referring MD: Marlon Hills MD Medicines: Monitored Anesthesia Care Complications: No immediate complications. Estimated Blood Loss: Estimated blood loss: none. Procedure: Pre-Anesthesia Assessment: - ASA Grade Assessment: III - A patient with severe systemic disease. - After reviewing the risks and benefits, the patient was deemed in satisfactory condition to undergo the procedure. After obtaining informed consent, the endoscope was passed under direct vision. Throughout the procedure, the patient's blood pressure, pulse, and oxygen saturations were monitored continuously.The Olympus Gastroscope was introduced through the mouth, and advanced to the jejunum. The upper GI endoscopy was accomplished without difficulty. The patient tolerated the procedure well. Findings: The Z-line was regular and was found 35 cm from the incisors. The esophagus was normal. Evidence of a gastric bypass was found. A gastric pouch with a small size was found. The staple line appeared intact. The gastrojejunal anastomosis was characterized by healthy appearing mucosa. This was traversed. The nnadh-ee-oishiof limb was characterized by healthy appearing mucosa. The jejunojejunal anastomosis was characterized by healthy appearing mucosa. Procedure Code(s): --- Professional --- 78219, Esophagogastroduodenoscopy, flexible, transoral; diagnostic, including collection of specimen(s) by brushing or washing, when performed (separate procedure) Diagnosis Code(s): --- Professional --- Z98.84, Bariatric surgery status R10.13, Epigastric pain R11.2, Nausea with vomiting, unspecified CPT copyright 2020 [employer]. All rights reserved. The codes documented in this report are preliminary and upon manager strategy & account review may be revised to meet current compliance requirements. Marlon Hills MD 12/19/2024 9:59:56 AM This report has been signed electronically.Marlon Hills MD Number of Addenda: 0 Note Initiated On: 12/19/2024 9:45 AM Scope In: Scope Out: Endoscopy Department at [facility] - [address] [place] [id number] Procedure Note Marlon Hills MD - 12/19/2024 [facility] Patient Name: Jia Arenas Procedure Date: 12/19/2024 9:45 AM Date of : 1990 Age: 34 Room: ROOM 14 Gender: Female Note Status: Finalized Attending MD: Marlon Hills MD, Procedure Date No Time: 12/19/2024 Procedure: Upper GI endoscopy Indications: Epigastric abdominal pain, Nausea with vomiting Providers: Marlon Hills MD Referring MD: Marlon Hills MD Medicines: Monitored Anesthesia Care Complications: No immediate complications. Estimated Blood Loss: Estimated blood loss: none. Procedure: Pre-Anesthesia Assessment: - ASA Grade Assessment: III - A patient with severe systemic disease. - After reviewing the risks and benefits, thepatient was deemed in satisfactory condition to undergo the procedure. After obtaining informed consent, the endoscope was passed under direct vision. Throughout theprocedure, the patient's blood pressure, pulse, and oxygen saturations were monitored continuously.The Olympus Gastroscope was introduced through the mouth, and advanced to the jejunum. The upper GI endoscopy was accomplished without difficulty. The patienttolerated the procedure well. Findings: The Z-line was regular and was found 35 cm from the incisors. The esophagus was normal. Evidence of a gastric bypass was found. A gastric pouch with a small size was found. The staple line appeared intact. The gastrojejunal anastomosis was characterized by healthy appearing mucosa. This was traversed. The yqjjw-hv-nopptfi limb wascharacterized by healthy appearing mucosa. The jejunojejunal anastomosis was characterized by healthy appearing mucosa. Procedure Code(s): --- Professional --- 97964, Esophagogastroduodenoscopy, flexible, transoral; diagnostic, including collection of specimen(s) by brushing or washing, when performed (separate procedure) Diagnosis Code(s): --- Professional --- Z98.84, Bariatric surgery status R10.13, Epigastric pain R11.2, Nausea with vomiting, unspecified CPT copyright 2020 [employer]. All rights reserved. The codes documented in this report are preliminary and upon manager strategy & account reviewmay be revised to meet current compliance requirements. Marlon Hills MD 12/19/2024 9:59:56 AM This report has been signed electronically.Marlon Hills MD Number of Addenda: 0 Note Initiated On: 12/19/2024 9:45 AM Scope In: Scope Out: Endoscopy Department at [facility] - [address] [place] [id number] IMPRESSION: - Z-line regular, 35 cm from the incisors. - Normal esophagus. - Gastric bypass with a small-sized pouch andintact staple line. Gastrojejunal anastomosischaracterized by healthy appearing mucosa. - No specimens collected. Recommendation: - [facility] - Resume previous diet. - Continue present medications. - Observe patient's clinical course. us Marlon Hills MD GI~PROCEDURE ORDERABLES Final Result * SST tube (12/18/2024 7:03 AM EDT) Extra Tube Hold for add-ons. 12/18/2024 9:01 AM EDT [facility] Comment:Auto resulted. Blood Venous blood specimen / Unknown Venipuncture / Unknown 12/18/2024 7:03 AM EDT 12/18/2024 7:23 AM EDT Dayana Frost MD LAB BLOOD ORDERABLES Fi nal Result [facility] [address] [place] [address], [place] [phone] * XR Chest 2 Views (12/14/2024 3:44 AM EDT) Anatomical Region Laterality Modality Body Radiographic Abbie ging 12/14/2024 8:02 AM EDT Impressions 12/14/2024 8:04 AM EDT Normal examination. No change since 10/07/2023. Code 87567 -------- FINAL REPORT -------- Dictated By: Emile Vasquez Dictated Date: 12/14/2024 08:02 ET Assigned Physician: Emile Vasquez Reviewed and Electronically Signed By: Emile Vasquez Signed Date: 12/14/2024 08:04 ET Workstation ID: [id number] Transcribed By: Self Edit Transcribed Date: 12/14/2024 08:02 ET Narrative 12/14/2024 8:04 AM EDT HISTORY: The patient is a 34-year-old female with dyspnea. Information provided with prior studies indicates the patient has a history of bariatric surgery. FINDINGS: PA and lateral radiographs of the chest demonstrate normal appearance of the bony structures. The cardiac and mediastinal contours are within normal limits. The lungs and costophrenic angles are clear. Surgical clips are again seen in the upper abdomen as also demonstrated on the prior study performed 10/07/2023, consistent with cholecystectomy as well as with bariatric surgery. Procedure Note Emile Vasquez MD - 12/14/2024 HISTORY: The patient is a 34-year-old female with dyspnea. Informationprovided with prior studies indicates the patient has a history ofbariatric surgery. FINDINGS: PA and lateral radiographs of the chest demonstrate normalappearance of the bony structures. The cardiac and mediastinal contoursare within normal limits. The lungs and costophrenic angles are clear. Surgical clips are again seen in the upper abdomen as also demonstrated onthe prior study performed 10/07/2023, consistent with cholecystectomy aswell as with bariatric surgery. IMPRESSION: Normal examination. No change since 10/07/2023. Code 35223 -------- FINAL REPORT -------- Dictated By: Emile Vasquez Dictated Date: 12/14/2024 08:02 ET Assigned Physician: Emile Vasquez Reviewed and Electronically Signed By: Emile Vasquez Signed Date: 12/14/2024 08:04 ET Workstation ID: [id number] Transcribed By: Self Edit Transcribed Date: 12/14/2024 08:02 ET us Carla Almaraz MD IMG XR PROCEDURES Final Result * Troponin I high sensitivity (12/14/2024 3:34 AM EDT) Only the most recent of2 resultswithin the time period is included. High Sensitivity Troponin I <3 <=54 ng/L LAB CHEMISTRY METHOD 12/14/2024 4:14 AM EDT [facility] Blood Venous blood specimen / Unknown Venipuncture / Unknown 12/14/2024 3:34 AM EDT 12/14/2024 3:44 AM EDT Narrative [facility] - 12/14/2024 4:14 AM EDT High levels of biotin in samples may falsely decrease hsTroponin values. Use caution when interpreting hsTroponin results in patients taking biotin who exhibit renal impairment (eGFR <60) or in patients taking more than 20 mg/day of biotin. Carla Almaraz MD LAB BLOOD ORDERABLES Fin al Result [facility] [address] [place] [address], [place] [phone] * POC , urine manually resulted (12/13/2024 11:03 PM EDT) Pathologist [facility] HCG, Ur POC Negative Negative POC hCG Int QC Pass? Yes Yes Urine Urine specimen obtained by clean catch procedure / Unknown 12/13/2024 11:03 PM EDT Carla Almaraz MD POINT OF CARE TEST ENTER /EDIT ORDERABLES Final Result * Urinalysis with reflex microscopic and culture (12/13/2024 11:01 PM EDT) Pathologist [facility] Specific [place] Urine 1.023 1.003 - 1.030 LAB URINALYSIS - AUTOMATED METHOD 12/13/2024 11:30 PM EDT [facility] pH, Urine 5.5 5.0 - 8.0 pH LAB URINALYSIS - AUTOMATED METHOD 12/13/2024 11:30 PM EDT [facility] Leukocytes, Urine Negative Negative LAB URINALYSIS - AUTOMATED METHOD 12/13/2024 11:30 PM EDT [facility] Nitrite, Urine Negative Negative LAB URINALYSIS - AUTOMATED METHOD 12/13/2024 11:30 PM EDT [facility] Protein, Urine Negative <=Trace mg/dL LAB URINALYSIS - AUTOMATED METHOD 12/13/2024 11:30 PM EDT [facility] Glucose, Urine Negative Negative mg/dL LAB URINALYSIS - AUTOMATED METHOD 12/13/2024 11:30 PM EDT [facility] Ketones, Urine Negative Negative mg/dL LAB URINALYSIS - AUTOMATED METHOD 12/13/2024 11:30 PM EDT [facility] Urobilinogen, Urine 0.2 0.2 - 1.0 mg/dL LAB URINALYSIS - AUTOMATED METHOD 12/13/2024 11:30 PM EDT [facility] Bilirubin, Urine Negative Negative LAB URINALYSIS - AUTOMATED METHOD 12/13/2024 11:30 PM EDT [facility] Blood, Urine Negative Negative LAB URINALYSIS - AUTOMATED METHOD 12/13/2024 11:30 PM EDT [facility] Urine Urine specimen obtained by clean catch procedure / Unknown Non-blood Collection / Unknown 12/13/2024 11:01 PM EDT 12/13/2024 11:25 PM EDT us Matt Morales DO LAB URINE ORDERABLES Final Res ult Performing Organization Address [facility]/ZIP Co de Phone Number [facility] [address] [place] [address], [place] [phone] * [place] urine culture tube (12/13/2024 11:01 PM EDT) Extra Tube Hold for add-ons. 12/14/2024 1:01 AM EDT [facility] Comment:Auto resulted. Urine Urine specimen obtained by clean catch procedure / Unknown Non-blood Collection / Unknown 12/13/2024 11:01 PM EDT 12/13/2024 11:25 PM EDT us Matt Morales DO LAB URINE ORDERABLES Final Res ult Performing Organization Address City/[facility]/ZIP Co de Phone Number [facility] [address] [place] [address], [place] [phone] * (ABNORMAL) Manual differential (12/13/2024 10:47 PM EDT) Neutrophils % 52.0 % LAB HEMETOLOGY METHOD 12/13/2024 11:50 PM EDT [facility] Lymphocytes % 35.0 % LAB HEMETOLOGY METHOD 12/13/2024 11:50 PM EDT [facility] Reactive Lymphocyte 3.00 % LAB HEMETOLOGY METHOD 12/13/2024 11:50 PM EDT [facility] Monocytes % 7.0 % LAB HEMETOLOGY METHOD 12/13/2024 11:50 PM EDT [facility] Eosinophils % 2.0 % LAB HEMETOLOGY METHOD 12/13/2024 11:50 PM EDT [facility] Basophils % 1.0 % LAB HEMETOLOGY METHOD 12/13/2024 11:50 PM EDT [facility] Neutrophils Absolute Manual 5.82 1.50 - 7.00 K/mcL LAB HEMETOLOGY METHOD 12/13/2024 11:50 PM EDT [facility] Lymphocytes Absolute 3.92 1.00 - 5.00 K/mcL LAB HEMETOLOGY [facility] Re[facility] Lymph Abs Manual 0.34(H) 0.00 - 0.00 lym LAB HEMETOLOGY METHOD 12/13/2024 11:50 PM EDT [facility] Monocytes Absolute Manual 0.78 0.20 - 1.00 K/mcL LAB HEMETOLOGY METHOD 12/13/2024 11:50 PM EDT [facility] Eosinophils Absolute Manual 0.22 0.00 - 0.50 K/mcL LAB HEMETOLOGY METHOD 12/13/2024 11:50 PM EDT [facility] Basophils Absolute Manual 0.11 0.00 - 0.20 K/mcL LAB HEMETOLOGY METHOD 12/13/2024 11:50 PM EDT [facility] Rbc Morphology Present( A) Consistent with indices, Normal for LAB HEMETOLOGY METHOD 12/13/2024 11:50 PM EDT [facility] Comment:RBC: Morphology agre es with CBC Platelet Morphology - WAM See Note(A) Normal LAB HEMETOLOGY METHOD 12/13/2024 11:50 PM EDT [facility] Comment:PLT: Large platelets seen Blood Venous blood specimen / Unknown Venipuncture / Unknown 12/13/2024 10:47 PM EDT 12/13/2024 10:58 PM EDT Carla Almaraz MD LAB BLOOD ORDERABLES Fin al Result [facility] [address] [place] [address], [place] [phone] * (ABNORMAL) Lipid panel (05/21/2023) [facility] LDL/HDL Ratio 4 0 - 4 Triglycerides 190(A) 0 - 150 mg/dL Cholesterol 196 0 - 200 mg/dL HDL 53 >=40 mg/dL LDL Cholesterol 105(A) 0 - 100 mg/dL Blood Venous blood specimen / Unknown [facility] Provider LAB BLOOD ORDERABLES Nicole l Result * Cervical Cancer Screening: HPV (09/28/2022) [facility] Cervical Cancer Screening: HPV abstracted, negative Historical Provider HEALTH MAINTENANCE Final Result * HIV Screening (01/27/2022) [facility] HIV Screening abstracted Historical Provider HEALTH MAINTENANCE Final Result * Hepatitis C Screening (01/27/2022) [facility] Hepatitis C Screening abstracted Historical Provider HEALTH MAINTENANCE Final Result from Last 3 Months or Most Recently Relevant to Health Maintenance Insurance [employer] MEDICARE Member Subscriber Plan / Payer (Ef fective 2022-Present) Name:JIA ARENAS Relation to Subscriber:Self Name:Jia Arenas Payer ID:[id number] Group ID:[id number] Type:Not on file Address: [place] [address] [place] [id number] Advance Directives * Full Code - Default (Latest Code Status on File) Date Activated Date Inactivated Comments 12/28/2024 8:12 AM 01/01/2025 3:46 PM This is orde r is used when code status has not been discussed with the patient, or code status is otherwise unknown/unconfirmed To update the patient's code status, place a code status order. Do not modify or discontinue any currently active code status orders. Care Teams Fruit Rancher Relationship Specialty Start Date End Date Cassius Alvarez MD [address] [place] [phone] PCP - General Internal Medicine 06/07/24
--- OUTSIDE RECORDS SUMMARY | 2025-02-12 11:24 | XMS_ITS ---
Author Name [facility] Organization Unknown Care Team Organization Name Specialty Phone Email Start Date End Da gricelda [facility] Shanti Rivero Primary Care 05/19/202202/27
--- OUTSIDE RECORDS SUMMARY | 2025-02-12 11:24 | XMS_ITS | Clinical Summary ---
Author Organization [facility] Address [address] [place] [phone] Phone Care Team Providers Care Housing Liaison Name Role Phone Neli Andrews MD Primary [...] file Insurance MEDICARE PART A & B [facility] CARE MEDICARE REPLACEMENT [place] [id number] MEDICARE PART A & B [facility] CARE MEDICARE REPLACEMENT [place] [facility] MEDICARE PART A & B MEDICARE PART A & B MEDICARE PART A & B CARE MEDICARE REPLACEMENT [place] [facility] MEDICARE PART A & B [facility] CARE MEDICARE REPLACEMENT MEDICARE PART A & B ONE [facility] MEDICARE REPLACEMENT MEDICARE PART A & B MEDICARE PART A & B [facility] ONE CARE MEDICARE REPLACEMENT Care Teams Housing Liaison Relationship Specialty Start Date End Date Neli Andrews MD [address] [place] [id number] PCP - General Internal Medicine 06/16/17 Additional Source Comments The information contained in this document represents components of the legal health record. It is not the complete legal health record.[facility]
== END 2025-02-12 10:36 | disposition home or self-care (01) ==
LOC: HO.HOP 10:36
PROVIDERS: PCP Internal Medicine; Visit Provider Clinical Nurse Specialist Psychiatric/Mental Health
DX: R41.840 Attention and concentration deficit (principal); F42.2 Mixed obsessional thoughts and acts; F43.10 Post-traumatic stress disorder, unspecified; F33.2 Major depressive disorder, recurrent severe without psychotic features
CPT/HCPCS: 99214

== ENCOUNTER 2025-04-17 08:32 | Outpatient (REF) | payer OTHER, SELFPAY ==
--- OUTSIDE RECORDS SUMMARY | 2024-05-08 08:31 | XMS_ITS | Encounter Summary ---
Author Organization [facility] [place] [address] Care Team Providers Care Process Specialist Name Role Phone Cassius Alvarez MD Primary Care Provider [phone] Encounter Details Date Type Department Care Team (Late st Contact Info) Description 05/08/2024 8:31 AM EDT Hospital Encounter TH HISTORIC ENCOUNTERS EASTERN CONVERSION ONLY Chelsea Singh MD [address] [place] [address] Social History Tobacco Use Types Packs/Day Years Used Date Smoking Tobacco: Never Smokeless Tobacco: Never Alcohol Use Standard Drinks/Week Comments Yes 0 (1 standard drink = 0.6 oz pur e alcohol) Food Risk Answer Date Recorded Within the past 12 months we worried whether our food would run out before we got money to buy more. Never true 04/11/2025 Within the past 12 months th e food we bought just didn't last and we didn't have money to get more. Never true 04/11/2025 Interpersonal Safety Answer Date Record ed Physical Abuse Unrecognized value 04/10/2025 Verbal Abuse Unrecognized value 04/10/2025 Comments No Sex and Gender Information Value [...] Date of Assessment Author No Risk Indicated 04/14/2025 7:07 AM EDT Sofi Song RN * [place] Suicide Severity Rating Scale (Screener/Recent Self-Report) Question Answer Date of Assessment Author 1. Wish to be (Past 1 Month) No 7:07 AM EDT Sofi Song RN 2. Non-Specific Active Suici angie Thoughts (Past 1 Month) No 04/14/2025 7:07 AM EDT oSfi Song RN 4. Active Suicidal Ideation with Some Intent to Act, Without Specific Plan (Past 1 Month) No 06/16/2024 4:48 PM EST Lorin Cordova RN 5. Active Suicidal Ideation with Specific Plan and Intent (Past 1 Month) No 06/16/2024 4:48 PM EST Lorin Valente RN 6. Suicidal Behavior (Lifetime) No 7:07 AM EDT Sofi Song RN 6. Suicidal Behavior (3 Months) No 5 7:07 AM EDT Sofi Song RN documented [...] single, she had 1 child who is [id number] FAMILY HISTORY: Noncontributory Current Outpatient Medications: ??? [...] Care Team (Late st Contact Info) Description 04/23/2025 11:45 AM EDT Office Visit Bariatric Surgery - [address] [place] [phone] Dayana Frost MD [address] [place] [phone] 05/07/2025 8:50 AM EDT Office Visit Gastroenterology - [place] [address] [place] [phone] Anny Vogel PA [address] [place] [address] 06/04/2025 1:00 PM EST Office Visit Bariatric Surgery - [place] [address] [facility] [address] [place] [phone] Dayana Frost MD [address] [place] [phone] documented as of this encounter Procedures Procedure [...] Gastrointestinal Rule-Out 04/11/2025 04/14/2025 11:49 AM EDT documented as of this encounter Care Teams Process Specialist Relationship Specialty Start Date End Date Cassius Alvarez MD PCP - General Internal Medicine 04/03/21 06/06/24 documented as of this encounter
--- OUTSIDE RECORDS SUMMARY | 2025-04-09 19:50 | XMS_ITS | Encounter Summary ---
Author Organization [facility] Address [address] [place] [address] Care Team Providers Care Marzipan Maker Name Role Phone Cassius Alvarez MD Primary Care Provider [phone] Reason for Referral * Home Health (Routine) - Closed Specialty Diagnoses / Procedures Referred By Danyell hwang Referred To Contact Home Health Services Diagnoses Wound infection after surgery Denice Ledbetter PA [address] [place] [phone] Phone: tel: fax: [address] [place] [address] Phone: tel: fax: Referral ID Status Reason Start Date Expiration Date V isits Requested Visits Authorized [id number] Closed Consult and Treat 04/13/2025 04/13/2026 1 1 Reason for Visit * Reason Comments Weakness - Generalized Shakey, low grade fever. * Auth/Cert (Routine) Specialty Diagnoses / Procedures Referred By Danyell hwang Referred To Contact Diagnoses Post-operative wound abscess Wound infection after surgery Procedures . Hazel Ardon MD [address] [place] [phone] Phone: tel: fax: [facility] [address] [place] [address] Phone: tel: Referral ID Status Reason Start Date Expiration Date Visits Re quested Visits Authorized [id number] 1 1 Encounter Details Date Type Department Care Team (Latest Contact Info) Description 04/09/2025 7:50 PM EDT - 04/13/2025 3:28 PM EDT Hospital Encounter [facility] [address] [place] [address] Mello Rome, DO [address] [phone] Brant Beasley MD [address] [place] [address] Hazel Ardon MD [address] [place] [phone] Post-operative wound abscess (Primary Dx); Diarrhea, unspecified type; Bariatric surgery status; Epigastric pain; Wound infection after surgery; Diarrhea in adult patient Discharge Disposition: Home-Health Care Svc Social History Tobacco Use Types Packs/Day Years [...] Sign Reading Time Taken Comments Blood Pressure 108/67 04/13/2025 3:07 PM EDT Pulse 97 04/13/2025 3:07 PM EDT Temperature 36.2 C (97.2 F) 04/13/2025 3:07 PM EDT Respiratory Rate 15 04/13/2025 3:07 PM EDT Oxygen Saturation 100% 04/13/2025 3:07 PM EDT Inhaled Oxygen Concentration - - Weight 84.9 kg (187 lb 3.2 oz) 04/13/2025 5:29 A M EDT Height 160 cm (5' 3 ) 04/12/2025 3:48 PM EDT Body Mass Index 33.16 04/12/2025 3:48 PM EDT documented in this encounter Functional Status * Are you deaf or do you have serious difficulty hearing? Answer Date of Assessment Author No 03/17/2025 5:44 AM WENDYT Arleth Perez RN * Are you blind or do you have serious difficulty seeing, even when wearing glasses? Answer Date of Assessment Author No 03/17/2025 5:44 AM EDT Arleth Perez, RN * Do you have serious difficulty walking or climbing stairs? Answer Date of Assessment Author No 03/17/2025 5:44 AM Arleth Peres RN * Do you have serious difficulty dressing or bathing? Answer Date of Assessment Author No 03/17/2025 5:44 AM WENDYT Arleth Perez, RN * Because of a physical, mental, or emotional condition, do you have serious difficulty doing errandsalone such as visiting the doctor? Answer Date of Assessment Author No 03/17/2025 5:44 AM WENDYT Arleth Perez RN * Calculated C-SSRS Risk Score (Lifetime/Recent) Answer Date of Assessment Author Moderate Risk 04/10/2025 8:20 AM EDT Eli Mo RN * Blair Suicide Severity Rating Scale (Screener/Recent Self-Report) Question Answer Date of Assessment Author 1. Wish to be (Past 1 Month) No 025 8:20 AM EDT Ruthie Mo, RN 2. Non-Specific Active Suici angie Thoughts (Past 1 Month) No 04/10/2025 8:20 AM EDT Ruthie Mo RN 6. Suicidal Behavior (Lifetime) Yes 8:20 AM EDT Ruthie Mo RN 6. Suicidal Behavior (3 Months) No 8:20 AM EDT Ruthie Mo RN documented as of this encounter Mental Status * Because of a physical, mental, or emotional condition, do you have serious difficulty concentrating, remembering, or making decisions? (5 years old or older) Answer Entry Date Author No 03/17/2025 5:44 AM EDT Arleth Perez RN documented in this encounter Discharge Summaries * GUICHO Cho 04/13/2025 2:46 PM EDT Images from the original note were not included. DISCHARGE SUMMARY Patient: Jia Valdez : 1990 (34 y.o. y/o female) Admit Date: 04/09/2025 Discharge Date: 04/13/2025 Location: [id number] Dictating Provider: Denice Ledbetter PA-C Attending Physician: Brant Beasley MD Primary Care Provider: Cassius Alvarez MD Discharge Disposition: Home with [facility] Services Primary Diagnosis: 1. Post-operative wound abscess 2. Diarrhea, unspecified type 3. Bariatric surgery status 4. Epigastric pain Procedures: 04/12/[address] Mayer Allergies: Allergies[1] Medications: Your medication list START taking these medications Instructions Last Dose Given Next Dose Due sulfamethoxazole-trimethoprim 800-160 mg per tablet Commonly known as: BACTRIM DS,SEPTRA DS Take 1 tablet by mouth 2 (two) times a day for 1 day. CONTINUE taking these medications Instructions Last Dose Given Next Dose Due acetaminophen 500 mg tablet Commonly known as: TYLENOL Take 2 tablets (1,000 mg total) by mouth every 8 (eight) hours. albuterol 2.5 mg /3 mL (0.083 %) nebulizer solution Take 1 Vial by nebulization every 4 hours as needed. albuterol HFA 90 mcg/actuation inhaler Commonly known as: PROAIR HFA ; PROVENTIL HFA ; VENTOLIN HFA Inhale 2 Puffs into the lungs every 4 hours as needed for Cough or Wheezing for up to 30 days. ARIPiprazole 5 mg tablet Commonly known as: ABILIFY Take 0.5 tablets (2.5 mg total) by mouth 1 (one) time each day. at bedtime. cholecalciferol 25 mcg (1,000 unit) capsule Commonly known as: VITAMIN D-3 Take 1 capsule (1,000 Units total) by mouth 1 (one) time each day. clonazePAM 0.5 mg tablet Commonly known as: KlonoPIN Take 1 tablet (0.5 mg total) by mouth 1 (one) time each day. escitalopram 20 mg tablet Commonly known as: LEXAPRO Take 1 tablet (20 mg total) by mouth 1 (one) time each day. esomeprazole [address] capsule Commonly known as: NexIUM TAKE 1 CAPSULE(40 MG) BY MOUTH 1 TIME EACH DAY BEFORE BREAKFAST. DO NOT OPEN CAPSULE famotidine 40 mg tablet Commonly known as: PEPCID Take 1 tablet (40 mg total) by mouth at bedtime. glucose monitoring kit monitoring kit 1 Kit by Does not apply route daily. HYDROmorphone 2 mg tablet Commonly known as: DILAUDID Take 1 tablet (2 mg total) by mouth every 4 (four) hours if needed for severe pain. Max Daily Amount: 12 mg methocarbamoL 500 mg tablet Commonly known as: ROBAXIN Take 1 tablet (500 mg total) by mouth 1 (one) time each day if needed for muscle spasms. metoprolol succinate 25 mg 24 hr tablet Commonly known as: TOPROL-XL Take 1 tablet (25 mg total) by mouth 1 (one) time each day. Do not crush or chew. mirtazapine 15 mg tablet Commonly known as: REMERON Take 0.5 tablets (7.5 mg total) by mouth at bedtime. [facility] GLUCOSE BLOOD TEST STRIPS (ASCENSIA AUTODISC ,ONE TOUCH ULTRA TEST ) STRIP One glucose script per blood sugar check twice daily norethindrone 0.35 mg tablet Commonly known as: RISSA,AYDE,MONTSERRAT,MICRONOR Take 1 tablet (0.35 mg total) by mouth 1 (one) time each day. STOP taking these medications metoclopramide 10 mg tablet Commonly known as: REGLAN Where to Get Your Medications These medications were sent to [id number] - [place] - [address] [facility] [address] [facility] [place] [address] HYDROmorphone 2 mg tablet sulfamethoxazole-trimethoprim 800-160 mg per tablet Hospital Course: Past Medical History: Medical History[2] Past Surgical History: Surgical History[3] HPI: (obtained from History & Physical on admission) Expand All Collapse All HISTORY AND PHYSICAL Patient: Jia Valdez : 1990 (34 y.o. female) Admit Date: 04/09/2025 Location: / Dictating Physician: GUICHO Daly Attending: No att. providers found Primary Care Provider: Cassius Alvarez MD HPI Encounter Date & Time: 04/10/2025 Service: General Surgery Chief Complaint: Wound drainage History of Present Illness: Ms. Jia Valdez is a very pleasant 34 y.o. female well-known to the bariatric service with extensive past surgical history including laparoscopic sleeve gastrectomy August 2019, laparoscopy with removal of imbrication stitch September 2019, robotic conversion of sleeve to gastric bypass and repair of hiatal hernia July 2023, robotic revision of gastrojejunostomy and lysis of adhesions October 2023, and most recent robotic reversal of gastric bypass December 28, 2024 to address ongoing issues of nausea, vomiting and intolerance of p.o intake. She also has medical history significant for anxiety, depression, GERD, asthma and arthritis. Recent admission 02/17-03/02 for nausea and vomiting, inability to tolerate p.o. CT scan at that time was unremarkable. Underwent EGD which revealed severe stenosis of the sleeve gastrectomy which was dilated. She was ultimately discharged home on TPN and outpatient follow-up with Dr. Frost. Seen in the office on 03/07/2025 with plans at that point to return to the OR electively for possible revision of the gastrogastric anastomosis. Patient ultimately underwent revision of the GG anastomosis. Pain nausea vomiting poor p.o. intake or issues postoperatively and later a postop wound infection. CT abdomen pelvis revealed a 6 x 3 x 4.2 cm fluid collection with gas. Cultures eventually grew out En terobacter JIMY CA, MSSA and strep viridans. She completed a 7-day course of antibiotics, her white count had normalized, and was discharged home with VNA services with Aquacel dressing changes every other day. She called the office the other day as her packing had fallen out and was instructed to just cover it with a dry sterile dressing until the N/A could replace the packing the next day. She was seen here on 04/07 for persistent wound issues and nausea and poor p.o. intake. WBC was 11 there was no further imaging the wound looked clean at that time and was repacked. She was discharged to home once again. She returns tonight with continued complaints of nausea but no vomiting. Trouble taking p.o. particularly the Rafiq 2. Still receiving TPN through a PICC line. Pain has been an ongoing issue. There is now reported increased drainage from the wound. Hospital Course: Postoperative abscess: On 04/10/2025 in the emergency department patient is afebrile vital signs are stable. WBC up to 12.8. H/H 10.89/34, BUN/creatinine 11/0.54. CT of the abdomen pelvis shows the wound with a much smallercollection measuring 1.5 x 0.2 cm in size with gas in the opening of the right anterior wall wound.She is admitted to the surgical service. Given IV antibiotics. Continued on cyclic TPN. Analgesics and antiemetics as needed. Bariatric stage II diet. DVT prophylaxis with intermittent pneumatic compression boots and heparin SQ. On 04/11/2025 white count normalized. Patient was tolerating diet without complaints of nausea or vomiting. Pain controlled. Aquacel packing changes every other day. Patient stable for discharge on 04/13/2025. She will continue with every other day packing changes. Continue on TPN and bariatric stage II diet as tolerated. She was provided with prescription for Bactrim to complete a 5-day total course of antibiotics. She will follow-up with Dr. Frost in the office on 04/23/2025. Dizziness: On 04/11/2025 patient complained of dizziness. The medical service was consulted. Orthostatics were negative. Brain CT was obtained which was negative. She was given a trial of meclizine with significant improvement.. Encouraged to increase fluid intake and limit narcotic use. EKG without acute ischemic changes. Folate, B12 and TSH within normal limits. Diarrhea: Has been complaining of diarrhea for the past few months and was in the process of having outpatient GI workup. Recently negative for C. difficile. Gastroenterology (Dr. Mayer) was consulted and patient underwent colonoscopy which showed entire examined colon normal. Biopsied. Examined portion of the ileum was normal. Patient will follow-up with Dr. Frost in the office regarding colonoscopy biopsies. There was some confusion regarding stool study order and they were never sent. Patient was provided with a specimen cup to obtain sample and script written for outpatient stool studies. Dr. Frost to f/u with results. Discharge Instructions: You were admitted for increased wound drainage, nausea, weakness and poor p.o. intake which was managed conservatively with dressing changes and antibiotics. He also underwent a colonoscopy for follow-up of diarrhea. Biopsies were obtained and Dr. Frost will review these results with you at yourfollow-up appointment. Diet: Continue bariatric stage 2 diet Drink plenty of fluids to keep yourself hydrated. Continue TPN. Activity: No lifting, pushing, or pulling greater than 15lbs for 6 weeks[address] within 24hrs of taking narcotic pain medication. Continue to walk every day. Medication: Tylenol 1000 mg every 8 hours Dilaudid 2 mg every 4 hours as needed for severe pain. Take stool softeners as needed for constipation. Wound Care: Change Aquacel packing every other day, next due 04/14/2025. Cover with clean dry dressing. You may change outer dressing as needed for saturation. You may shower prior to packing changes. Gently cleanse wounds with soap and water. Pat dry. No soaking, scrubbing, pools or hot tubs until after your follow-up appointment. Apply ice to the surgical areas as needed to reduce pain and swelling. Follow-up Referrals: Future Appointments Date Time Provider Department Center 04/23/2025 11:45 AM [facility] 05/07/2025 8:50 AM GUICHO Keating [facility] [address] [facility] 06/04/2025 1:00 PM Dayana Frost [facility] Time Spent with Patient: Less than 30 minutes Condition on Discharge: Stable [1] Allergies Allergen Reactions Infliximab Headache Other reaction(s): Headaches, SEVERE HEADACHE [2] Past Medical History: Diagnosis Date Abdominal pain NAUSEA FROM BYPASS Anxiety Arthritis Asthma Chronic kidney disease kidney stones Chronic pain disorder Depression Dizziness GERD (gastroesophageal reflux disease) PONV (postoperative nausea and vomiting) Thoracic radiculopathy [3] Past Surgical History: Procedure Laterality Date BARIATRIC SURGERY 08/12/2019 laparoscopic sleeve gastrectomy (Ogty) BARIATRIC SURGERY 09/12/2019 exploratory laparoscopy, removal of imbricating stitch, fluoroscopy (Ogty) BARIATRIC SURGERY 10/12/2023 robotic revision of gastrojejunostomy, lysis of adhesions, fluoroscopy (Ogty) BARIATRIC SURGERY 12/28/2024 robotic reversal of gastric bypass (Ogty) BARIATRIC SURGERY 07/29/2023 robotic conversion of sleeve to gastric bypass and hiatal hernia repair (Ogty) BARIATRIC SURGERY 03/23/2025 Da Ronan revision of GG anastomosis, upper GI endoscopy (Margot) CHOLECYSTECTOMY ESOPHAGOGASTRODUODENOSCOPY MYOMECTOMY 11/29/2023 endometrial biopsy and abdominal myomectomy (Km) documented in this encounter Discharge Instructions * Discharge Instructions* GUICHO Cho - 04/13/2025 1:50 PM EDT You were admitted for increased wound drainage, nausea, weakness and poor p.o. intake which was managed conservatively with dressing changes and antibiotics. He also underwent a colonoscopy for follow-up of diarrhea. Biopsies were obtained and Dr. Frost will review these results with you at yourfollow-up appointment. Diet: Continue bariatric stage 2 diet Drink plenty of fluids to keep yourself hydrated. Continue TPN. Activity: No lifting, pushing, or pulling greater than 15lbs for 6 weeks. No driving within 24hrs of taking narcotic pain medication. Continue to walk every day. Medication: Tylenol 1000 mg every 8 hours Dilaudid 2 mg every 4 hours as needed for severe pain. Take stool softeners as needed for constipation. Wound Care: Change Aquacel packing every other day, next due 04/14/2025. Cover with clean dry dressing. You may change outer dressing as needed for saturation. You may shower prior to packing changes. Gently cleanse wounds with soap and water. Pat dry. No soaking, scrubbing, pools or hot tubs until after your follow-up appointment. Apply ice to the surgical areas as needed to reduce pain and swelling. * Attachments The following attachments cannot be sent through Care Everywhere. * Fall Prevention (Salvadorean) * 3 Breathing Exercises to Help You Relax: Video (Salvadorean) documented in this encounter Medications at Time of Discharge HYDROmorphone (DILAUDID) 2 mg tabletIndications: Bariatric surgery status,Epigastric pain Take 1 tablet (2 mg total) by mouth every 4 (four) hours if needed for severe pain. Max Daily Amount: 12 mg 12 tablet 04/13/2025 acetaminophen (TYLENOL) 500 mg tablet Take 2 tablets (1,000 mg total) by mouth every 8 (eight) hours. 30 tablet 04/05/2025 albuterol 2.5 mg /3 mL (0.083 %) nebulizer solution Take 1 Vial by nebulization every 4 hours as needed. albuterol HFA (PROAIR HFA ; PROVENTIL HFA ; VENTOLIN HFA) 90 mcg/actuation inhaler Inhale 2 Puffs into the lungs every 4 hours as needed for Cough or Wheezing for up to 30 days. 09/02/2021 ARIPiprazole (ABILIFY) 5 mg tablet Take 0.5 tablets (2.5 mg total) by mouth 1 (one) time each day. at bedtime. blood-glucose meter kit 1 Kit by Does not apply route daily. 04/10/2024 cholecalciferol (VITAMIN D-3) 25 mcg (1,000 unit) capsule Take 1 capsule (1,000 Units total) by mouth 1 (one) time each day. 09/24/2024 clonazePAM (KlonoPIN) 0.5 mg tablet Take 1 tablet (0.5 mg total) by mouth 1 (one) time each day. 07/06/2024 escitalopram (LEXAPRO) 20 mg tablet Take 1 tablet (20 mg total) by mouth 1 (one) time each day. esomeprazole (NexIUM) [address] capsule TAKE 1 CAPSULE(40 MG) BY MOUTH 1 TIME EACH DAY BEFORE BREAKFAST. DO NOT OPEN CAPSULE 90 capsule 3 09/12/2024 famotidine (PEPCID) 40 mg tablet Take 1 tablet (40 mg total) by mouth at bedtime. 30 each 3 10/31/2024 11/01/19 medical supply, miscellaneous (MISCELLANEOUS MEDICAL SUPPLY [facility] GLUCOSE BLOOD TEST STRIPS (ASCENSIA AUTODISC ,ONE TOUCH ULTRA TEST ) STRIP One glucose script per blood sugar check twice daily 04/13/2024 05/08/20 methocarbamoL (ROBAXIN) 500 mg tablet Take 1 [...] (7.5 mg total) by mouth at bedtime. 06/18/2021 norethindrone (RISSA,AYDE,HEAT HER,MICRONOR) 0.35 mg tablet Take 1 tablet (0.35 mg total) by mouth 1 (one) time each day. 84 tablet 1 01/15/2025 sulfamethoxazole-t rimethoprim (BACTRIM DS,SEPTRA DS) 800-160 mg per tablet Take 1 tablet by mouth 2 (two) times a day for 1 day. 2 each 04/13/2025 04/14/20 25 documented as of this encounter Ordered Prescriptions Prescription Sig Dispense Quantity Refills Last Filled Start Date End Date HYDROmorphone (DILAUDID) 2 mg tabletIndications: Bariatric surgery status,Epigastric pain Take 1 tablet (2 mg total) by mouth every 4 (four) hours if needed for severe pain. Max Daily Amount: 12 mg 12 tablet 04/13/2025 sulfamethoxazole-t rimethoprim (BACTRIM DS,SEPTRA DS) 800-160 mg per tablet Take 1 tablet by mouth 2 (two) times a day for 1 day. 2 each 04/13/2025 04/14/2025 documented in this encounter Discharge Disposition Disposition Code Departure Means Destination Comment s Home-Health Care Svc Walk-out documented in this encounter Progress Notes * Katelin Mclaughlin RN - 04/13/2025 3:28 PM EDT Patient states understanding to discharge instructions. Patient to follow up with all outpatient providers. Patient states she does not have any questions. * Marlee Rowell RN - 04/13/2025 2:47 PM EDT 04/13/25 1447 Medication Coverage Has Med Coverage Under Insurance Plan Yes Medication Affordability No concerns related to payment for meds Anticipated Discharge Needs Discipline following for SNF placement Online Facilitator Informed Choice Informed Choice Given? Yes Transportation Transportation at discharge Family What day is the transport expected? 04/13/25 Final Discharge Disposition Home Health Care Services Patient discharging home with [facility] a TPN provided by [facility]. [facility] confirmed that they can has SOC tomorrow for first dressing change with next one being on Wednesday to include a blood draw. * Florencia Barney RD - 04/13/2025 11:51 AM EDT 04/13/2025 @ 1:16 PM EDT Nutrition Follow Up Note Reason for RD Intervention: Assessment Type: Follow-up Reason for Assessment: TPN Additional Assessment Information: Central Parenteral Nutrition (TPN) Anthropometrics: Height: 160 cm (63 ) Weight: 84.9 kg (187 lb 3.2 oz) BMI (Calculated): 33.2 BMI Class: Obesity Class I UBW (lbs): (190-205 lb range) Recent Weight Change: (Pt had fluid weight gain with some loss, current weight is stated.) Current Diet and Supplements: Dietary Orders (From admission, onward) Start Ordered 04/12/[address] [facility]; Bariatric/GI; Level 2- Bariatric Full Liquid Diet effective now Question Answer Comment Location [facility] Diet Type (req) Bariatric/GI Bariatric/GI Level 2- Bariatric Full Liquid 04/12/25 1625 04/10/252101 Dietary nutrition supplements Two times daily (BID); [facility]; Other Continuous Comments: Shidler CANDIDO Question Answer Comment Frequency Two times daily (BID) Location [facility] Supplements Other 04/10/252100 History of presenting illness: Patient is a 34 y.o. female with a history of Medical History[1] Surgical History[2] admitted 04/09/2025 with Wound infection after surgery. Food/Nutrition History: Previous Diet / Nutrition Education / Counseling: denies food allergies Self-selected diet(s) followed: Pt has been on Rafiq 2 diet with TPN, limited PO tolerance. Dieting Attempts: Pt reports after last discharge she was taking very small amounts of protein water and tried a small amount of cream of wheat and a small amount of baby food but did not tolerate itwell. Overall PO liquid intake has been minimal. Appetite CEMENT TRUCK LOADER: Poor Intake CEMENT TRUCK LOADER: Decreased Weight History: Wt Readings from Last 10 Encounters: 04/13/25 84.9 kg (187 lb 3.2 oz) 04/07/25 88.5 kg (195 lb) 04/05/25 89.6 kg (197 lb 9.6 oz) 03/15/25 86.2 kg (190 lb) 03/11/25 86.2 kg (190 lb) 03/07/25 86.5 kg (190 lb 9.6 oz) 03/05/25 84.8 kg (187 lb) 03/02/25 84.1 kg (185 lb 6.4 oz) 01/30/25 87.1 kg (192 lb) 01/20/25 87.7 kg (193 lb 4 oz) Subjective Assessment: Colonoscopy completed yesterday (Noninfective gastroenteritis and colitis, unspecified). GI also considering bacterial overgrowth. IGA noted. Note Pt's diet has been limited in gluten (bariatric fluids). BG elevated on chemistries today, POC lower 30 minutes after TPN weaned off, consider lab specimen may have had some residual TPN formula. Discussed with provider and home care TPN dietitian for interpretation in formulating TPN for anticipated discharge today. Pt tolerating water since yesterday, reports consuming less than 6 ounces. Weight increased to 84.9 kg today, pt reports continued regular urine output. Follow weights closely. Pt was NPO most of the day yesterday, has not had Candido. Anticipate discharge today. Nutrition-Related Lab Values: Results from last 7 days Lab Units 04/13/25 0947 04/13/25 0522 04/12/25 0603 04/11/25 0628 04/10/25 1838 04/10/25 0423 SODIUM mmol/L -- 139 < > 139 -- 138 POTASSIUM mmol/L -- 4.1 < > 4.3 -- 4.0 PHOSPHORUS mg/dL -- 2.7 < > 2.9 -- 4.0 MAGNESIUM mg/dL -- 2.1 < > 2.1 -- 2.0 CHLORIDE mmol/L -- 108 < > 107 -- 105 CO2 mmol/L -- 24 < > 26 -- 25 BUN mg/dL -- 14 < > 16 -- 9 CREATININE mg/dL -- 0.38* < > 0.50 -- 0.50 EGFR mL/min/1.73m2 -- 137 < > 128 -- 128 CALCIUM mg/dL -- 8.3* < > 8.6 -- 8.8 BILIRUBIN TOTAL mg/dL -- -- -- -- -- 0.3 ALK PHOS unit/L -- -- -- -- -- 115 ALT unit/L -- -- -- -- -- 24 AST unit/L -- -- -- -- -- 12 POCT GLUCOSE mg/dL 91 -- -- -- < > -- GLUCOSE mg/dL -- 250* < > 86 -- 86 WBC AUTO K/mcL -- -- -- 9.5 -- 9.5 < > = values in this interval not displayed. Lab Results Component Value Date LIPASE 03/17/2025 Results from last 7 days Lab Units 04/11/25 0628 TRIGLYCERIDES mg/dL 116 Medications: MEDSSCHEDULED[3] CONTINUOUS: MEDSCONTINUOUS[4] MEDSPRN[5] Energy Needs: kcal, gm protein, mL fluid per day. Total Energy Estimated Needs: 15-20 kcal/kg/day, 87 kg previous dry weight, 6998-8691 kcal/day, 1.5-2 gm/kg/day protein for IBW 52 kg, 78-104 gm/day Height: 160 cm (63 ) Temp: 37.1 ??C (98.8 ??F) Food/Nutrition-Current Status: Intake Type: Parenteral (PO and parenteral) Mix Type: Individual (1376 ml over 12 hours) Amino Acids (AA): 95 Lipid: 38 Dextrose (Dex): 195 Kcal: 1423 Mineral/Trace Elements Present?: Yes Current Diet Status: Appropriate Current Supplement Status: Appropriate Appetite: Poor Intake Amount (%): Bites/Sips Intake Assessment: Other (Comment) (adequate with TPN) Main IVF: None Nutrition Focused Physical Findings: Overall Appearance: Pt resting in bed, no vomiting since small amount after medications yesterday. No BM since colonoscopy yesterday. Digestive System (Mouth to Rectum): Appetite change Nerves and Cognition: Alert, Oriented Skin: incision sites and abdominal wound. Fluid Accumulation/Edema: Generalized Loss of Fat Location: Orbital, Buccal, Triceps, Ribs Loss of Fat Amt-Orbital: No Losses Loss of Fat Amt-Buccal: No Losses Loss of Fat Amt-Triceps: No Losses Loss of Fat Amt-Ribs: No Losses Loss of Muscle Location: Temples, Clavicle, Shoulders, Interosseous, Scapula, Thigh, Calf Loss of Muscle Amt-Temples: No Losses Loss of Muscle Amt-Clavicle: No Losses Loss of Muscle Amt-Shoulders: No Losses Loss of Muscle Amt-Inter Musc: Mild Loss of Muscle Amt-Scapula: No Losses Loss of Muscle Amt-Thigh: No Losses Loss of Muscle Amt-Calf: No Losses Nutrition Diagnosis: Malnutrition: Code Type: None Identified Status: No improvement Diagnosis: Inadequate Oral Intake Etiology: Physiologic causes Symptoms: as evidenced by nausea, limited ability to tolerate bariatric level 2 diet Nutrition Interventions: Medical Food Supplement, Parenteral Nutrition Pt will be discharged with home TPN -Diet per surgery, resume home protein supplement -discussed labs with provider and RD at [facility] Parenteral Nutrition: Via [facility] Nutrition Education Pt remains on rafiq level 2 diet. Goals: Patient will initially consume at least 50% of meals. , Electrolytes within normal range., Maintainweight., Stooling appropriately., Maintain skin integrity., and Wound healing progress. Coordination of Patient Care: Discussed with home care (RD and liaison), discussed with provider and talent acquisition managersoftware project manager/Evaluation: Fluid/Beverage Intake, Protein Intake, Medical Food Supp/Oral Nutrition Supp, Weight, Acid-Base Balance, Renal/Electrolyte Profile, Gastrointestinal Profile, Parenteral Nutrition Intake Follow Up: Nutrition Priority Level: High Nutritional Discharge Recommendations: TPN per [facility], RD remains available and will continue to follow. Signature: Florencia Barney RD [1] Past Medical History: Diagnosis Date Abdominal pain NAUSEA FROM BYPASS Anxiety Arthritis Asthma Chronic kidney disease kidney stones Chronic pain disorder Depression Dizziness GERD (gastroesophageal reflux disease) PONV (postoperative nausea and vomiting) Thoracic radiculopathy [2] Past Surgical History: Procedure Laterality Date BARIATRIC SURGERY 08/12/2019 laparoscopic sleeve gastrectomy ([facility]) BARIATRIC SURGERY 09/12/2019 exploratory laparoscopy, removal of imbricating stitch, fluoroscopy ([facility]) BARIATRIC SURGERY 10/12/2023 robotic revision of gastrojejunostomy, lysis of adhesions, fluoroscopy ([facility]) BARIATRIC SURGERY 12/28/2024 robotic reversal of gastric bypass ([facility]) BARIATRIC SURGERY 07/29/2023 robotic conversion of sleeve to gastric bypass and [facility] BARIATRIC SURGERY 03/23/2025 [facility]an revision of GG anastomosis, upper GI endoscopy ([facility]) CHOLECYSTECTOMY ESOPHAGOGASTRODUODENOSCOPY MYOMECTOMY 11/29/2023 endometrial biopsy and abdominal myomectomy ([place]) [3] ARIPiprazole, 2.5 mg, oral, Nightly cefTRIAXone, 1 g, intravenous, q24h clonazePAM, 0.5 mg, oral, Daily escitalopram, 20 mg, oral, Daily metoprolol succinate, 25 mg, oral, Daily metroNIDAZOLE, 500 mg, intravenous, q12h mirtazapine, 7.5 mg, oral, Nightly pantoprazole, 40 mg, oral, q AM AC vancomycin, 12 mg/kg, intravenous, q12h [4] Adult Cyclic 3-in-1 TPN Central Line, , Last Rate: Stopped (04/13/25 0919) [5] PRN medications: albuterol, HYDROmorphone, HYDROmorphone, meclizine, metoclopramide OR metoclopramide, naloxone, ondansetron (ZOFRAN-ODT) disintegrating tablet OR ondansetron, simethicone * Viola Torres RN - 04/13/2025 4:23 AM EDT Goals: To decrease nausea and abd pain Identify possible barriers to meeting goals/advancing plan of care: +WC growing strep viridians and MSSA Stability of the patient: Moderately Unstable - Medium risk of patient condition declining or worsening End of Shift Summary: Pt c/o moderate and pain earlier in shift and 2mg po dilaudid given with goodeffect. TPN infusing currently at 125mL/hr; IVP ceftriaxone given as ordered and vanco on hold d/t an elevated vanco trough. OOB ad carine to BR; sleeping at this time. * De Anderson RN - 04/12/2025 4:32 PM EDT Goals: Clinical Goals for the Shift: EDG Identify possible barriers to meeting goals/advancing plan of care: pending colonoscopy results Stability of the patient: Moderately Stable - Low risk of patient condition declining or worsening End of Shift Summary: Alert and oriented breathing freely on ra, complained of pain, analgesics given with good effect. Safety and comfort mantained * Peace Petty RN - 04/12/2025 4:13 PM EDT T.I. reached per MD. * Florencia Barney, RD - 04/12/2025 10:56 AM EDT 04/12/2025 @ 10:58 AM EDT Nutrition Follow Up Note Reason for RD Intervention: Assessment Type: Follow-up Reason for Assessment: TPN Additional Assessment Information: Central Parenteral Nutrition (TPN) Anthropometrics: Height: 160 cm (63 ) Weight: 83.2 kg (183 lb 6.4 oz) BMI (Calculated): 32.5 BMI Class: Obesity Class I UBW (lbs): (190-205 lb range) Recent Weight Change: (Pt had fluid weight gain with some loss, current weight is stated.) Current Diet and Supplements: Dietary Orders (From admission, onward) Start Ordered 04/12/25 0001 Adult NPO diet Location: [facility]; Diet: NPO- Except for Medications Diet effective midnight Question Answer Comment Location [facility] Diet NPO- Except for Medications 04/11/25 1706 04/10/252101 Dietary nutrition supplements Two times daily (BID); [facility]; Other Continuous Comments: [place] CNADIDO Question Answer Comment Frequency Two times daily (BID) Location [facility] Supplements Other 04/10/252100 History of presenting illness: Patient is a 34 y.o. female with a history of Medical History[1] Surgical History[2] admitted 04/09/2025 with Wound infection after surgery. Food/Nutrition History: Previous Diet / Nutrition Education / Counseling: denies food allergies Self-selected diet(s) followed: Pt has been on Rafiq 2 diet with TPN, limited PO tolerance. Dieting Attempts: Pt reports after last discharge she was taking very small amounts of protein water and tried a small amount of cream of wheat and a small amount of baby food but did not tolerate itwell. Overall PO liquid intake has been minimal. Appetite CEMENT TRUCK LOADER: Poor Intake CEMENT TRUCK LOADER: Decreased Weight History: Wt Readings from Last 10 Encounters: 04/11/25 83.2 kg (183 lb 6.4 oz) 04/07/25 88.5 kg (195 lb) 04/05/25 89.6 kg (197 lb 9.6 oz) 03/15/25 86.2 kg (190 lb) 03/11/25 86.2 kg (190 lb) 03/07/25 86.5 kg (190 lb 9.6 oz) 03/05/25 84.8 kg (187 lb) 03/02/25 84.1 kg (185 lb 6.4 oz) 01/30/25 87.1 kg (192 lb) 01/20/25 87.7 kg (193 lb 4 oz) Subjective Assessment: Pt reports that she vomited this morning just after taking PO medications. Colonoscopy for diarrheapending. Pt remains NPO. Pt reports that she feels no stiffness in ankles today, reports urine output is at baseline. Mouth is dry today while NPO. Provider requesting reduction in TPN calories as ptreported lack of appetite, hoping PO will improve. Nutrition-Related Lab Values: Results from last 7 days Lab Units 04/12/25 0603 04/11/25 0628 04/10/25 1838 04/10/25 0423 SODIUM mmol/L 138 139 -- 138 POTASSIUM mmol/L 4.0 4.3 -- 4.0 PHOSPHORUS mg/dL 2.9 2.9 -- 4.0 MAGNESIUM mg/dL 2.0 2.1 -- 2.0 CHLORIDE mmol/L 109 107 -- 105 CO2 mmol/L 24 26 -- 25 BUN mg/dL 16 16 -- 9 CREATININE mg/dL 0.40* 0.50 -- 0.50 EGFR mL/min/1.73m2 135 128 -- 128 CALCIUM mg/dL 8.2* 8.6 -- 8.8 BILIRUBIN TOTAL mg/dL -- -- -- 0.3 ALK PHOS unit/L -- -- -- 115 ALT unit/L -- -- -- 24 AST unit/L -- -- -- 12 POCT GLUCOSE -- -- < > -- GLUCOSE mg/dL 111* 86 -- 86 WBC AUTO K/mcL -- 9.5 -- 9.5 < > = values in this interval not displayed. Lab Results Component Value Date LIPASE 03/17/2025 Results from last 7 days Lab Units 04/11/25 06 TRIGLYCERIDES mg/dL 116 Medications: MEDSSCHEDULED[3] CONTINUOUS: MEDSCONTINUOUS[4] MEDSPRN[5] Energy Needs: kcal, gm protein, mL fluid per day. Total Energy Estimated Needs: 15-20 kcal/kg/day, 87 kg previous dry weight, 7413-0986 kcal/day, 1.5-2 gm/kg/day protein for IBW 52 kg, 78-104 gm/day Height: 160 cm (63 ) Temp: 36.3 ??C (97.4 ??F) Food/Nutrition-Current Status: Intake Type: Other (Comment) (NPO) Current Diet Status: Appropriate Current Supplement Status: Appropriate Appetite: Other (Comment) (NPO) Intake Amount (%): Unable to Assess Intake Assessment: Unable to Assess Main IVF: None Nutrition Focused Physical Findings: Overall Appearance: Pt reports she is not feeling well overall, nausea at bay but still having some diarrhea. Feels she still has some fluid retention (ankles stiff if she flexes). Digestive System (Mouth to Rectum): Nausea Nerves and Cognition: Alert, Oriented Skin: incision sites and abdominal wound. Fluid Accumulation/Edema: Generalized Loss of Fat Location: Orbital, Buccal, Triceps, Ribs Loss of Fat Amt-Orbital: No Losses Loss of Fat Amt-Buccal: No Losses Loss of Fat Amt-Triceps: No Losses Loss of Fat Amt-Ribs: No Losses Loss of Muscle Location: Temples, Clavicle, Shoulders, Interosseous, Scapula, Thigh, Calf Loss of Muscle Amt-Temples: No Losses Loss of Muscle Amt-Clavicle: No Losses Loss of Muscle Amt-Shoulders: No Losses Loss of Muscle Amt-Inter Musc: Mild Loss of Muscle Amt-Scapula: No Losses Loss of Muscle Amt-Thigh: No Losses Loss of Muscle Amt-Calf: No Losses Nutrition Diagnosis: Malnutrition Code Type: None Identified Status: No improvement Diagnosis: Inadequate Oral Intake Etiology: Physiologic causes Symptoms: as evidenced by nausea, limited ability to tolerate bariatric level 2 diet Nutrition Interventions: Medical Food Supplement, Parenteral Nutrition Medical Food Supplement(s): (Candido as ordered, Pt has protein water from home.) Parenteral Nutrition: PN Indication: Other (Comment) (limited PO tolerance) Type: PN Mix Type: Individual Admin Instructions: Cyclic Amino Acid: 95 Dextrose: 195 Lipid: 38 PN Kcal: 1423 Rate: (63 ml/hr for one hour, 125 ml/hr for 10 hours, 63 ml/hr for one hour) Initiate PN Instructions: via central line only Provides 17 kcal/kg/day, 1.8 gm/kg protein/day, 26 ml/kg/day fluid for IBW. Nutrition Education Pending diet advance and scope results Goals: Patient will tolerate diet progression. , Patient will initially consume at least 50% of meals. , Patient will consume ONS., Monitor/control glucose levels, Electrolytes within normal range., Maintain weight., Stooling appropriately., Maintain skin integrity., and Wound healing progress. Coordination of Patient Care: Verbal discussion with RN., Care plan discussed with patient/family., Discussed with provider(s) via [employer]. , and PN recommendations discussed with provider(s) via [employer] Discussed with talent acquisition manager and [facility] liason Monitoring/Evaluation: Fluid/Beverage Intake, Protein Intake, Medical Food Supp/Oral Nutrition Supp, Weight, Acid-Base Balance, Renal/Electrolyte Profile, Gastrointestinal Profile, Parenteral Nutrition Intake Follow Up: Nutrition Priority Level: High Nutritional Discharge Recommendations: Pending diet advance, scope results. TPN via [facility] RD remains available and will continue to follow. Signature: Florencia Barney RD [1] Past Medical History: Diagnosis Date Abdominal pain NAUSEA FROM BYPASS Anxiety Arthritis Asthma Chronic kidney disease kidney stones Chronic pain disorder Depression Dizziness GERD (gastroesophageal reflux disease) PONV (postoperative nausea and vomiting) Thoracic radiculopathy [2] Past Surgical History: Procedure Laterality Date BARIATRIC SURGERY 08/12/2019 laparoscopic sleeve gastrectomy ([facility]) BARIATRIC SURGERY 09/12/2019 exploratory laparoscopy, removal of imbricating stitch, [facility] BARIATRIC SURGERY 10/12/2023 robotic revision of gastrojejunostomy, lysis of adhesions, [facility]) BARIATRIC SURGERY 12/28/2024 robotic reversal of gastric bypass ([facility]) BARIATRIC SURGERY 07/29/2023 robotic conversion of sleeve to gastric bypass and hiatal hernia repair ([facility]) BARIATRIC SURGERY 03/23/2025 Da Ronan revision of GG anastomosis, upper GI endoscopy ([facility]) CHOLECYSTECTOMY ESOPHAGOGASTRODUODENOSCOPY MYOMECTOMY 11/29/2023 endometrial biopsy and abdominal myomectomy ([place]) [3] ARIPiprazole, 2.5 mg, oral, Nightly cefTRIAXone, 1 g, intravenous, q24h clonazePAM, 0.5 mg, oral, Daily escitalopram, 20 mg, oral, Daily metoprolol succinate, 25 mg, oral, Daily metroNIDAZOLE, 500 mg, intravenous, q12h mirtazapine, 7.5 mg, oral, Nightly pantoprazole, 40 mg, oral, q AM AC vancomycin, 1,500 mg, intravenous, q12h [4] Adult Cyclic 3-in-1 TPN Central Line, , Last Rate: Stopped (04/12/25 1042) [5] PRN medications: albuterol, HYDROmorphone, HYDROmorphone, meclizine, metoclopramide OR metoclopramide, naloxone, ondansetron (ZOFRAN-ODT) disintegrating tablet OR ondansetron * GUICHO Baez - 04/12/2025 9:54 AM EDT GENERAL SURGERY PROGRESS NOTE Patient: Jia Valdez : 1990 (34 y.o. female) Admit Date: 04/09/2025 Location: [facility]-2 Dictating Physician: GUICHO Baez Attending: Brant Beasley MD Primary Care Provider: Cassius Alvarez MD Subjective: Encounter Date & Time: 04/12/2025 Supervising Physician: Dr. Frost Subjective: No overnight events. Patient is NPO for colonoscopy this morning. States pain is controlled as is nausea. No episodes or vomiting. Still having dizziness similar to yesterday. Discussed that CT and labs were WNL. Objective: Temp: 36.3 ??C (97.4 ??F) (04/12 745) Heart Rate: 94 (04/12 745) Resp: 20 (04/12 745) BP: 117/70 (04/12 745) BMI: Body mass index is 32.49 kg/m??. Physical Exam GENERAL APPEARANCE: Pleasant, awake, alert resting comfortably in bed. Patient in no acute distress, and appears stated age. HEENT: Normocephalic, atraumatic. EOMI, sclera anicteric. CARDIOVASCULAR: Regular rate and rhythm with no appreciable murmur. No significant peripheral edema RESPIRATORY: Non-labored respirations on room air. Clear to auscultation bilaterally without without focal areas of wheezing, rales, or rhonchi. GASTROINTESTINAL: Well healing incisions no drainage noted. Hypoactive bowel sounds, abdomen is soft, nondistended, nontender to palpation, no guarding or rebound tenderness. Wound healing well dressing changed to aquacel. MUSCULOSKELETAL: No gross deformities. Grossly normal range of motion. EXTREMITIES: Warm and well-perfused without clubbing, cyanosis, or edema. INTEGUMENTARY: Skin color, and texture normal. No rashes noted. Warm and dry. NEUROLOGIC: Awake, alert, and oriented. PSYCHIATRIC: Normal mood and affect. Results: Laboratories: Lab Results Component Value Date WBC 9.5 04/11/2025 HGB 10.1 (L) 04/11/2025 HCT 31.9 (L) 04/11/2025 MCV 97.3 04/11/2025 PLT 369 04/11/2025 Lab Results Component Value Date GLUCOSE 111 (H) 04/12/2025 CALCIUM 8.2 (L) 04/12/2025 NA 138 04/12/2025 K 4.0 04/12/2025 CO2 24 04/12/2025 CL 109 04/12/2025 BUN 16 04/12/2025 CREATININE 0.40 (L) 04/12/2025 Lab Results Component Value Date MG 2.0 04/12/2025 PHOS 2.9 04/12/2025 Imaging: CT Head wo Contrast Narrative: INDICATION: dizziness CT Head Without Contrast: Comparison: None Findings: Cortical sulci are symmetric Basal ganglia are unremarkable No shift in midline structures No intraparenchymal bleeding or abnormal extra axial blood fluid collections Normal pituitary size Clear paranasal sinuses. Mastoid air cells and middle ear cavities are unremarkable. Posterior fossa and cerebellar pontine angles are unremarkable. Unremarkable orbital structures No depressed fractures Impression: Impression: Unremarkable CT of the head. This document has been electronically signed by: Hair Valenzuela MD on 04/11/2025 18:38:35 Assessment & Plan: Problem List: 1. Post-operative wound abscess 2. Diarrhea, unspecified type Problem List[1] Assessment: 34 y.o. female with past medical history of anxiety, depression, asthma, GERD, POTS who is POD 20 of a DaVinci revision of GG anastomosis which was complicated by post op infection. Cultures grew outEnterobacter JIMY CA, MSSA and strep viridans. Responding well to antibiotics and dressing changes. Was admitted for increased drainage which is now under control. Was having persisting dizziness therefore LINDA was involved and work up has thus far been negative. GI consulted for diarrhea x 3 monthsand is going for colonoscopy today. Stool studies have not been resulted as she has not had a BM since yesterday . Plan: Continue to manage analgesics and antiemetics Continue NPO until after colonoscopy then resume Rafiq II diet Encouraged ambulation Will cut back on TPN calories in hope of increased PO intake/appetite Dressing changed to aquacel next dressing change will be on 04/14 Possible discharge later today Patient was discussed with Dr. Frost who agrees with above plan. [1] Patient Active Problem List Diagnosis ADHD (attention deficit hyperactivity disorder) Adnexal cyst Allergic rhinitis Ankylosing spondylitis (CMS/HCC V24, CMS/HCC V28) Anxiety Asthma Bladder spasms Bulimia (CMS/HCC V28) DDD (degenerative disc disease), lumbosacral Depression Dizziness [...] Breakthrough bleeding on control pills Paratubal cyst Abdominal pain, acute, epigastric Abdominal pain, generalized Nausea and vomiting H/O gastric bypass Nausea and vomiting, unspecified vomiting type Nausea Complication of bariatric procedure Anastomotic stricture of stomach Dehydration Wound infection after surgery * Marlee Rowell RN - 04/11/2025 2:03 PM EDT SHANTI: 04/12 Barriers: wound infect sp surg, IV abx, NPO, TPN Plan: active [facility] * GUICHO Baez - 04/11/2025 9:35 AM EDT GENERAL SURGERY PROGRESS NOTE Patient: Jia Valdez : 1990 (34 y.o. female) Admit Date: 04/09/2025 Location: [address] [place] [address] Dictating Physician: GUICHO Baez Attending: Mello Rome DO Primary Care Provider: Cassius Alvarez MD Subjective: Encounter Date & Time: 04/11/2025 Supervising Physician: Dr. Frost Subjective: No overnight events. Patient states that she is still having dizziness. The dizziness is random andcan be just sitting causing her to have chills. Pain and nausea well controlled. No vomiting. Tolerating rafiq 2 diet. Objective: Temp: 36.6 ??C (97.9 ??F) (04/11 745) Heart Rate: 95 (04/11 745) Resp: 16 (04/11 745) BP: 106/72 (04/11 745) BMI: Body mass index is 32.49 kg/m??. Physical Exam GENERAL APPEARANCE: Pleasant, awake, alert resting comfortably in bed. Patient in no acute distress, and appears stated age. HEENT: Normocephalic, atraumatic. EOMI, sclera anicteric. CARDIOVASCULAR: Regular rate and rhythm with no appreciable murmur. No significant peripheral edema RESPIRATORY: Non-labored respirations on room air. Clear to auscultation bilaterally without without focal areas of wheezing, rales, or rhonchi. GASTROINTESTINAL: Well healing incisions. Right mid abdomen incision site is open that is 5cm deep and it also tracts towards the midline about 5.25cm Hypoactive bowel sounds, abdomen is soft, nondistended, nontender to palpation, no guarding or rebound tenderness. MUSCULOSKELETAL: No gross deformities. Grossly normal range of motion. EXTREMITIES: Warm and well-perfused without clubbing, cyanosis, or edema. INTEGUMENTARY: Skin color, and texture normal. No rashes noted. Warm and dry. NEUROLOGIC: Awake, alert, and oriented to person. PSYCHIATRIC: Normal mood and affect. Results: Laboratories: Lab Results Component Value Date WBC 9.5 04/11/2025 HGB 10.1 (L) 04/11/2025 HCT 31.9 (L) 04/11/2025 MCV 97.3 04/11/2025 PLT 369 04/11/2025 Lab Results Component Value Date GLUCOSE 86 04/11/2025 CALCIUM 8.6 04/11/2025 NA 139 04/11/2025 K 4.3 04/11/2025 CO2 26 04/11/2025 CL 107 04/11/2025 BUN 16 04/11/2025 CREATININE 0.50 04/11/2025 Lab Results Component Value Date MG 2.1 04/11/2025 PHOS 2.9 04/11/2025 Imaging: XR UGI w Single Contrast Narrative: FINDINGS: Single contrast UGI performed. COMPARISON: Upper GI imaging February 26, 2025 HISTORY: Patient is a 34-year-old female with history of gastric bypass with reversal. Gastric-gastric anastomosis complicated by stricture. Approximately 18 days postop correction of an anastomotic stricture. CAR DETAILER radiographs: Sales Superintendent AP radiograph of the abdomen obtained. Bowel gas pattern is nonobstructive. Visualized lung bases are clear. There are multiple surgical suture chains noted along the left upper and mid abdomen. Cholecystectomy clips are present. Osseous structures are unremarkable. FINDINGS: Water-soluble Isovue 300 was given to the patient in AP, RPO, LPO and right and left lateral positions under fluoroscopic control. Gastric anatomy is consistent with multiple surgeries. Gastric-gastric anastomosis is well-visualized with free flow of contrast past this area. Mild narrowing at the anastomosis remains, however this is significantly improved when compared to prior imaging from February 26, 2025. Visualization of proximal small bowel is within normal limits. Small amounts of spontaneous gastroesophageal reflux arevisualized. There is no evidence of contrast leak or extravasation. There is no obstruction. DAP: 6.76 Gycm^2 Impression: 1. Mild narrowing at the gastric-gastric anastomosis, a significant improvement when compared to prior imaging from February 23, 2025. 2. No evidence of contrast leak, extravasation or obstruction 3. Gastroesophageal reflux. -------- FINAL REPORT -------- Dictated By: Willow Oliver Dictated Date: 04/10/2025 10:44 ET Assigned Physician: Emile Vasquez Reviewed and Electronically Signed By: Emile Vasquez Signed Date: 04/10/2025 11:06 ET Workstation ID: [id number] Transcribed By: Self Edit Transcribed Date: 04/10/2025 10:52 ET Resident/PA/AUTOMOBILE SALES CONSULTANT: Willow Oliver Assessment & Plan: Problem List: 1. Post-operative wound abscess Problem List[1] Assessment: 34 y.o. female who is POD 19 of a DaVinci revision of GG anastomosis which was complicated by post op infection. Cultures grew out Enterobacter JIMY CA, MSSA and strep viridans Had been undergoing dressing changes but returned to the ED with increased output. Is being treated with antibiotics WBC continues to be normal. Is tolerating diet with her nausea and pain controlled. Labs and vitals are unremarkable but patient still having some dizziness. Plan: Continue Rafiq 2 diet Manage algesics and antiemetics Continue TPN Consider discharging later today if dizziness resolves Patient to be discussed with Dr. Frost [1] Patient Active Problem List Diagnosis ADHD (attention deficit hyperactivity disorder) Adnexal cyst Allergic rhinitis Ankylosing spondylitis (CMS/HCC V24, CMS/HCC V28) Anxiety Asthma Bladder spasms Bulimia (CMS/HCC V28) DDD (degenerative disc disease), lumbosacral Depression Dizziness [...] Breakthrough bleeding on control pills Paratubal cyst Abdominal pain, acute, epigastric Abdominal pain, generalized Nausea and vomiting H/O gastric bypass Nausea and vomiting, unspecified vomiting type Nausea Complication of bariatric procedure Anastomotic stricture of stomach Dehydration Wound infection after surgery * Florencia Barney, KASSIDY - 04/11/2025 9:15 AM EDT 04/11/2025 @ 9:18 AM EDT Nutrition Follow Up Note Reason for RD Intervention: Assessment Type: Follow-up Reason for Assessment: TPN Additional Assessment Information: Central Parenteral Nutrition (TPN) Anthropometrics: Height: 160 cm (63 ) Weight: 83.2 kg (183 lb 6.4 oz) BMI (Calculated): 32.5 BMI Class: Obesity Class I UBW (lbs): (190-205 lb range) Recent Weight Change: (Pt had fluid weight gain with some loss, current weight is stated.) Current Diet and Supplements: Dietary Orders (From admission, onward) Start Ordered 04/10/252101 Dietary nutrition supplements Two times daily (BID); [facility]; Other Continuous Comments: Shidler CANDIDO Question Answer Comment Frequency Two times daily (BID) Location [facility] Supplements Other 04/10/25 21004/10/[address] [facility]; Bariatric/GI; Level 2- Bariatric Full Liquid Diet effective now Question Answer Comment Location [facility] Diet Type (req) Bariatric/GI Bariatric/GI Level 2- Bariatric Full Liquid 04/10/25 1113 History of presenting illness: Patient is a 34 y.o. female with a history of Medical History[1] Surgical History[2] admitted 04/09/2025 with Wound infection after surgery. Food/Nutrition History: Previous Diet / Nutrition Education / Counseling: denies food allergies Self-selected diet(s) followed: Pt has been on Rafiq 2 diet with TPN, limited PO tolerance. Dieting Attempts: Pt reports after last discharge she was taking very small amounts of protein water and tried a small amount of cream of wheat and a small amount of baby food but did not tolerate itwell. Overall PO liquid intake has been minimal. 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 Hunger vital signs completed by RD. Assistance: No assistance needed at this time Weight History: Wt Readings from Last 10 Encounters: 04/11/25 83.2 kg (183 lb 6.4 oz) 04/07/25 88.5 kg (195 lb) 04/05/25 89.6 kg (197 lb 9.6 oz) 03/15/25 86.2 kg (190 lb) 03/11/25 86.2 kg (190 lb) 03/07/25 86.5 kg (190 lb 9.6 oz) 03/05/25 84.8 kg (187 lb) 03/02/25 84.1 kg (185 lb 6.4 oz) 01/30/25 87.1 kg (192 lb) 01/20/25 87.7 kg (193 lb 4 oz) Subjective Assessment: Weight down again today to 83.2 kg from 83.8 kg standing. Pt reports good urine output (light in color), normal volume 3-4 times daily. BM 04/10. Shidler Candido ordered by provider. Tongue white on exam, provider notified. Nutrition-Related Lab Values: Results from last 7 days Lab Units 04/11/25 0628 04/10/25 1838 04/10/25 0423 SODIUM mmol/L 139 -- 138 POTASSIUM mmol/L 4.3 -- 4.0 PHOSPHORUS mg/dL 2.9 -- 4.0 MAGNESIUM mg/dL 2.1 -- 2.0 CHLORIDE mmol/L 107 -- 105 CO2 mmol/L 26 -- 25 BUN mg/dL 16 -- 9 CREATININE mg/dL 0.50 -- 0.50 EGFR mL/min/1.73m2 128 -- 128 CALCIUM mg/dL 8.6 -- 8.8 BILIRUBIN TOTAL mg/dL -- -- 0.3 ALK PHOS unit/L -- -- 115 ALT unit/L -- -- 24 AST unit/L -- -- 12 POCT GLUCOSE -- < > -- GLUCOSE mg/dL 86 -- 86 WBC AUTO K/mcL 9.5 -- 9.5 < > = values in this interval not displayed. Lab Results Component Value Date LIPASE 29 03/17/2025 Results from last 7 days Lab Units 04/11/25 0628 TRIGLYCERIDES mg/dL 116 Medications: MEDSSCHEDULED[3] CONTINUOUS: MEDSCONTINUOUS[4] MEDSPRN[5] Energy Needs: kcal, gm protein, mL fluid per day. Total Energy Estimated Needs: 15-20 kcal/kg/day, 87 kg previous dry weight, 3446-1221 kcal/day, 1.5-2 gm/kg/day protein for IBW 52 kg, 78-104 gm/day Height: 160 cm (63 ) Temp: 36.6 ??C (97.9 ??F) Food/Nutrition-Current Status: Intake Type: P.O. Current Diet Status: Appropriate Current Supplement Status: Appropriate Appetite: Poor Intake Amount (%): Bites/Sips Intake Assessment: Other (Comment) (adequate with supplemental TPN) Main IVF: None Nutrition Focused Physical Findings: Overall Appearance: Pt reports she is not feeling well overall, nausea at bay but still having some diarrhea. Feels she still has some fluid retention (ankles stiff if she flexes). Digestive System (Mouth to Rectum): Nausea Nerves and Cognition: Alert, Oriented Skin: incision sites and abdominal wound. Fluid Accumulation/Edema: Generalized Loss of Fat Location: Orbital, Buccal, Triceps, Ribs Loss of Fat Amt-Orbital: No Losses Loss of Fat Amt-Buccal: No Losses Loss of Fat Amt-Triceps: No Losses Loss of Fat Amt-Ribs: No Losses Loss of Muscle Location: Temples, Clavicle, Shoulders, Interosseous, Scapula, Thigh, Calf Loss of Muscle Amt-Temples: No Losses Loss of Muscle Amt-Clavicle: No Losses Loss of Muscle Amt-Shoulders: No Losses Loss of Muscle Amt-Inter Musc: Mild Loss of Muscle Amt-Scapula: No Losses Loss of Muscle Amt-Thigh: No Losses Loss of Muscle Amt-Calf: No Losses Nutrition Diagnosis: Malnutrition: Code Type: None Identified Status: Other (Comment) (ongoing) Diagnosis: Inadequate Oral Intake Etiology: Physiologic causes Symptoms: as evidenced by nausea, limited ability to tolerate bariatric level 2 diet Nutrition Interventions: Medical Food Supplement, Parenteral Nutrition Medical Food Supplement(s): (Candido as ordered, Pt has protein water from home.) -discussed with provider regarding volume of TPN/ volume status Parenteral Nutrition: PN Indication: Other (Comment) (limited PO tolerance) Type: PN Mix Type: Individual Admin Instructions: Cyclic Amino Acid: 105 Dextrose: 210 Lipid: 45 PN Kcal: 1584 Rate: (57 ml/hr x 1 hour, 115 ml/hr x 11 hours, 57 ml/hr x 1 hour) Initiate PN Instructions: via central line only Based on new weight, provides 19 kcal/kg/day, 2 gm/kg/day for IBW, 17 ml/kg/day fluid for actual weight, 27 ml/kg/day for IBW. Plus PO. Nutrition Education Bariatric diet per surgical team, follow for need. Goals: Patient will initially consume at least 50% of meals. , Patient will consume ONS., PN: Patient tolerating cycled TPN., Monitor/control glucose levels, Electrolytes within normal range., Fluid accumulation resolved., Stooling appropriately., Maintain skin integrity., and Wound healing progress. Coordination of Patient Care: Discussed with RN via [employer] Secure Chat/[employer]. , Care plan discussed with patient/family., and Verbal discussion with provider. Will discuss TPN recommendations with provider via secure chat, TPN today if pt to remain at [facility] today with TPN. Monitoring/Evaluation: Fluid/Beverage Intake, Protein Intake, Medical Food Supp/Oral Nutrition Supp, Weight, Acid-Base Balance, Renal/Electrolyte Profile, Gastrointestinal Profile, Parenteral Nutrition Intake Follow Up: Nutrition Priority Level: High Nutritional Discharge Recommendations: Diet per surgical team RD remains available and will continue to follow. Signature: Florencia Barney RD [1] Past Medical History: Diagnosis Date Abdominal pain NAUSEA FROM BYPASS Anxiety Arthritis Asthma Chronic kidney disease kidney stones Chronic pain disorder Depression Dizziness GERD (gastroesophageal reflux disease) PONV (postoperative nausea and vomiting) Thoracic radiculopathy [2] Past Surgical History: Procedure Laterality Date BARIATRIC SURGERY 08/12/2019 laparoscopic sleeve gastrectomy ([facility]) BARIATRIC SURGERY 09/12/2019 exploratory laparoscopy, removal of imbricating stitch, [facility] BARIATRIC SURGERY 10/12/2023 robotic revision of gastrojejunostomy, lysis of adhesions, [facility] BARIATRIC SURGERY 12/28/2024 robotic [facility] of [facility] BARIATRIC SURGERY 07/29/2023 robotic conversion of sleeve to gastric bypass and hiatal hernia repair ([facility]) BARIATRIC SURGERY 03/23/2025 [facility] revision of GG anastomosis, [facility] CHOLECYSTECTOMY ESOPHAGOGASTRODUODENOSCOPY MYOMECTOMY 11/29/2023 endometrial biopsy and abdominal myomectomy ([facility]) [3] ARIPiprazole, 2.5 mg, oral, Nightly cefTRIAXone, 1 g, intravenous, q24h clonazePAM, 0.5 mg, oral, Daily escitalopram, 20 mg, oral, Daily metoprolol succinate, 25 mg, oral, Daily metroNIDAZOLE, 500 mg, intravenous, q12h mirtazapine, 7.5 mg, oral, Nightly pantoprazole, 40 mg, oral, q AM AC vancomycin, 1,250 mg, intravenous, q12h [4] Adult Cyclic 3-in-1 TPN Central Line, , Last Rate: 115 mL/hr at 04/10/25 2234 [5] PRN medications: albuterol, HYDROmorphone, HYDROmorphone, meclizine, metoclopramide OR metoclopramide, naloxone, ondansetron (ZOFRAN-ODT) disintegrating tablet OR ondansetron * Gini Henry RN - 04/10/2025 5:54 PM EDT Goals: Clinical Goals for the Shift: EDG Problem: Sensory: Acute Pain Goal: Pain level will improve or be tolerable 04/10/2025 1754 by Gini Bedolla RN Outcome: Progressing 04/10/2025 1222 by Gini Bedolla RN Outcome: Progressing Identify possible barriers to meeting goals/advancing plan of care: blood cultures and XR UGI w/ contrast pending Stability of the patient: Moderately Stable - Low risk of patient condition declining or worsening End of Shift Summary: Patient wound draining, c/o nausea and pain, Dilaudid pain med and Zofran given at day shift- see MAR for documentation. Patient was informed of no wound vac or sutures needed as patient wound is small to heal itself. Patients all question was answered by the surgical team. * Leelee Dean RN - 04/10/2025 3:30 PM EDT 04/10/25 1529 Initial Transition Plan Initial Transition Plan Home Health Care Back up Transition Plan Back up Transition plan Home Health Care Discharge Planning Living Arrangements Children;Parent Type of Residence Private residence ([address] [place] [address]) Assistive Devices None Support Systems Parent Medication Coverage Has Med Coverage Under Insurance Plan Yes Medication Affordability No concerns related to payment for meds Anticipated Discharge Needs Discipline following for SNF placement Online Facilitator Informed Choice Informed Choice Given? Yes SHANTI: 04/11-04/12 Plan: active [facility] care ref entered if needed Barriers: wound infect sp surg, IV abx, NPO, TPN Therapy Eval: na Referral status: entered Auth status: na Last BM: unk Pharmacy: [facility] HCP: No Support Persons and Availability: Family PCP: Cassius Alvarez MD * Ruthie Mo RN - 04/10/2025 8:25 AM EDT Goals: Clinical Goals for the Shift: EDG Identify possible barriers to meeting goals/advancing plan of care: Possible surgery Stability of the patient: Moderately Stable - Low risk of patient condition declining or worsening End of Shift Summary: * Sheryl Barrios RN - 04/10/2025 3:00 AM EDT .ED RN HANDOFF (All Vann Below Must Be Completed) Reason/Diagnosis for Admission: POST OP WOUND INFECTION Type of Admission: [x] Medsurg, [] Telemetry Already in a Hospital Bed: [] Yes / [x] No Room Considerations/Precautions (ex: fever, diarrhea, or any infectious concerns): [] Yes / [x] No Sole Buffer: [] Yes / [x] No If YES, Cardiac Rhythm: [] NSR, [] SB, [] ST, [] A-FIB, [] A-Flutter, [] Pacemaker, [] 1st Degree HB, [] 2nd Degree HB, [] 3rd Degree HB Reason for Sole Buffer: VS: Visit Vitals BP 102/67 (BP Location: Left arm, Patient Position: Lying) Pulse 90 Temp 36.7 ??C (98.1 ??F) (Oral) Resp 18 Ht 1.6 m (63 ) Wt 88.5 kg (195 lb) LMP 02/18/2025 SpO2 95% BMI 34.54 kg/m?? OB Status Having periods Smoking Status Never BSA 1.91 m?? Current Mental Status: A/O x [x]4, []3, []2, []1 Current Ambulation Status: INDEPENDENT IV Access: [x] Yes / [] No PICC LINE Field IV present: [] Yes / [x] No Hx of Violence: [] Yes / [x] No / [] Unknown Fall Risk:[] Yes / [x] No Yellow Bracelet Applied [] Yes / [x] No Yellow Socks Applied [] Yes / [x] No Patient Belongings inventoried and BL completed: [x] Yes / [] No Patient belongings stored in the security closet: [] Yes (If Yes please supply Security bag #): [x] No Patient Medications stored in Pharmacy: [] Yes (If Yes please supply Medication Security bag #): [x] No ED Summary of Care: PMH status post bariatric surgery with reversion of her gastric sleeve due to stricture, most recent robotic reversal of gastric bypass December 28, 2024 to address ongoing issues of nausea, vomiting andintolerance of p.o intake Recent admission 02/17-03/02 for nausea and vomiting, inability to tolerate p.o. CT scan at that time was unremarkable. Underwent EGD which revealed severe stenosis of the sleeve gastrectomy which was dilated. She was ultimately discharged home on TPN and outpatient follow-up with Dr. Frost. Seen in the office on 03/07/2025 with plans at that point to return to the OR electively for possible revision of the gastrogastric anastomosis. Patient ultimately underwent revision of the GG anastomosis. PT TODAY C/O WEAKNESS, DIZZINESS, SWEATY, PT GAVE HERSELF 1 LITER FLUID AT HOME AND STILL DID NOT FEEL BETTER \ INCISION TO RIGHT ABD W/ INCREASED PURULENT BLOODY DRAINAGE TPN THROUGH PICC LINE WBC 12.[address] ABD PELVIS 1. Soft tissue wound is noted involving the right anterior abdominal wall. Subcutaneous gas bubbles are noted within the anterior abdominal wall. This might be related to postproceduralchanges. Infection is not excluded. Previously noted fluid in the subcutaneous tissues of the right anterior abdominal wall has decreased in size, without complete resolution. Please see above for details. 2. Postsurgical changes are again noted involving the stomach. Adjacent stranding/haziness is againnoted which does not appear to be significantly changed and might be postoperative in nature. 3. Additional findings are detailed above. Submitted by and Phone Extension: SHERYL * Ayanna Khan, PharmD - 04/10/2025 2:20 AM EDT Initial Pharmacy Vancomycin Dosing Consultation Consult ordering provider: Ramya LINDO 34 y.o. female is being started on vancomycin Cellulitis (per protocol goal trough 10-15 mg/dL) for7 days. Provider has specified a goal trough of 15-18. This is a complicated infection that is ongoing. Relevant data Height: 1.6 m (63 ) Weight: 88.5 kg (195 lb) Temp Readings from Last 3 Encounters: 04/09/25 36.7 ??C (98.1 ??F) (Oral) 04/07/25 36.5 ??C (97.7 ??F) (Oral) 04/05/25 36.8 ??C (98.2 ??F) WBC Date Value Ref Range Status 04/09/2025 12.8 (H) 4.8 - 10.8 K/mcL Final 04/07/2025 11.1 (H) 4.8 - 10.8 K/mcL Final 04/05/2025 9.5 4.8 - 10.8 K/mcL Final Creatinine Date Value Ref Range Status 04/09/2025 0.54 0.50 - 1.10 mg/dL Final 04/07/2025 0.53 0.50 - 1.10 mg/dL Final 04/05/2025 0.40 (L) 0.50 - 1.10 mg/dL Final Estimated Creatinine Clearance: 125 mL/min (by C-G formula based on SCr of 0.54 mg/dL). mL/min Cockcroft-Gault Recent Results (from the past week) Blood culture Collection Time: 04/09/25 9:59 PM Specimen: Blood, Venous Result Value Ref Range Culture, Blood Culture in progress Blood culture Collection Time: 04/09/25 9:59 PM Specimen: Blood, Venous Result Value Ref Range Culture, Blood Culture in progress Patient is also receiving the following antibiotic(s): Ceftriaxone Plan Patient has not yet received a Loading vancomycin dose of 1750 mg ordered for 0230 04/10/25. Pharmacy will initiate a maintenance dose of 1250 mg every 12 hours starting on 04/10/25 at 15:00. She has recently been on vanco, with her last dose received 04/03 at 0100. Her most recent trough was15.6 on this same regimen. Creatinine is reasonably similar so we will continue on 1250mg q12h. A trough has been ordered for 04/11/25 at 14:00 prior to 4th dose due on 04/11/25 at 15:00. Therapy is planned to end on 04/16/25 at this time. Will continue to monitor and recommend changes as necessary. Ayanna Khan, PharmSydnee 04/10/25 2:17 AM EDT * Caprice Peres RN - 04/09/2025 5:05 PM EDT Pt to ed reports I'm fighting an enfection . Pt reports incision infected to right abdomen. pt reports weak, dizzy, sweaty, area is open. Pt took tylenol around 1. Has picc line in place to right arm, pt gave herself 1 liter fluid at home and does not feel any better. * GUICHO Cason - 04/09/2025 4:50 PM EDT HPI Chief Complaint Patient presents with Weakness - Generalized Shakey, low grade fever. Patient is a 34-year-old female with past medical history of anxiety depression, asthma, chronic pain, chronic kidney disease, status post bariatric surgery with reversion of her gastric sleeve due to stricture presenting to the emergency department today for worsening fatigue fevers lightheadedness symptoms with low-grade fever at home. Patient evaluated by me yesterday in emergency department. She does state that she is unable to have wound care perform dressing change earlier today. She states worsening discomfort to the abdomen where wound packing is placed. 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 Physical Exam ED Triage Vitals Temp Heart Rate Resp BP 04/09/25 1706 04/09/25 1706 04/09/25 17004/09/251705 36.8 ??C (98.2 ??F) 108 16 112/77 SpO2 Temp Source Heart Rate Source Patient Position 04/09/25170504/09/25170504/09/25205004/09/252050 97 % Oral Monitor Sitting BP Location FiO2 (%) 04/09/252050 -- Left arm Physical Exam Vitals and nursing note reviewed. Constitutional: General: She is not in acute distress. Appearance: Normal appearance. She is normal weight. She is not toxic-appearing or diaphoretic. HENT: Head: Normocephalic and atraumatic. Nose: Nose normal. Mouth/Throat: Mouth: Mucous membranes are moist. Pharynx: No oropharyngeal exudate or posterior oropharyngeal erythema. Eyes: General: No scleral icterus. Extraocular Movements: Extraocular movements intact. Conjunctiva/sclera: Conjunctivae normal. Cardiovascular: Rate and Rhythm: Normal rate and regular rhythm. Pulses: Normal pulses. Heart sounds: Normal heart sounds. Pulmonary: Effort: Pulmonary effort is normal. Breath sounds: Normal breath sounds. Abdominal: Tenderness: There is abdominal tenderness. There is no right CVA tenderness, left CVA tenderness, guarding or rebound. Comments: Patient with area of induration surrounding an open incision in the right mid abdomen. Patient packing was removed, soaked with purulence. There is overlying erythema that is now present that was not present yesterday. Patient's pain is worsened on palpation compared to yesterday. Musculoskeletal: General: Normal range of motion. Cervical back: Normal range of motion and neck supple. Skin: General: Skin is warm and dry. Capillary Refill: Capillary refill takes less than 2 seconds. Neurological: General: No focal deficit present. Mental Status: She is alert. Cranial Nerves: No cranial nerve deficit. Motor: No weakness. Gait: Gait normal. ED Course & MDM ED Course as of 04/10/25110 Mon Apr 09, 20252130 hCG, serum, qualitative neg [AW] 2230 CBC and differential(!) Patient leukocytosis at 12.8, neutrophils elevated 9.3, hemoglobin 10.9 hematocrit 34. Platelets are mildly elevated at 494 [AW] 2231 CBC is uptrending from most recent available in the last 48 hours [AW] 2240 Magnesium normal [AW] 2320 Lactate, with reflex normal [AW] Tue Apr 10, [address] Abdomen Pelvis w Contrast IMPRESSION: 1. Soft tissue wound is noted involving the right anterior abdominal wall. Subcutaneous gas bubbles are noted within the anterior abdominal wall. This might be related to postprocedural changes. Infection is not excluded. Previously noted fluid in the subcutaneous tissues of the right anterior abdominal wall has decreased in size, without complete resolution. Please see above for details. 2. Postsurgical changes are again noted involving the stomach. Adjacent stranding/haziness is again noted which does not appear to be significantly changed and might be postoperative in nature. 3. Additional findings are detailed above. This document has been electronically signed by: Avery Santamaria M.D. on 04/09/2025 23:58:45 [AW] ED Course User Index [AW] GUICHO Cason Clinical Impressions as of 04/10/25110 Post-operative wound abscess Medical Decision Making Differential diagnosis includes postop pain, postop seroma postop abscess cellulitis Patient afebrile hemodynamically stable. She does have worsening signs of cellulitis with induration noted on physical exam. This has overlying mild faint erythema. Patient has purulent drainage now from open wound of abdomen. Lab work obtained, trended from yesterday. Patient clinically has worsened symptoms believe she would benefit from admission, ongoing pain medication due to difficulty in controlling pain in emergency department. Surgical consult was placed and bed was requested. Appreciate surgical team assistance Procedures GUICHO Cason 04/10/25 0020 [1] Past Medical History: Diagnosis Date Abdominal pain NAUSEA FROM BYPASS Anxiety Arthritis Asthma Chronic kidney disease kidney stones Chronic pain disorder Depression Dizziness GERD (gastroesophageal reflux disease) PONV (postoperative nausea and vomiting) Thoracic radiculopathy [2] Past Surgical History: Procedure Laterality Date BARIATRIC SURGERY 08/12/2019 laparoscopic sleeve gastrectomy ([facility]) BARIATRIC SURGERY 09/12/2019 exploratory laparoscopy, removal of imbricating stitch, fluoroscopy ([facility]) BARIATRIC SURGERY 10/12/2023 robotic revision of gastrojejunostomy, lysis of adhesions, fluoroscopy ([facility]) BARIATRIC SURGERY 12/28/2024 robotic reversal of gastric bypass ([facility]) BARIATRIC SURGERY 07/29/2023 robotic conversion of sleeve to gastric bypass and hiatal hernia repair ([facility]) BARIATRIC SURGERY 03/23/2025 Da Ronan revision of GG anastomosis, upper GI endoscopy ([facility]) CHOLECYSTECTOMY ESOPHAGOGASTRODUODENOSCOPY MYOMECTOMY 11/29/2023 endometrial biopsy and abdominal myomectomy ([facility]) [3] Family History Problem Relation Name Age of Onset No Known Problems Mother No Known Problems Father Cancer Father's Sister Breast' Stroke Maternal Grandfather Cancer Maternal Grandfather prostate Stroke Paternal Grandmother GUICHO Cason 04/10/25 0111 Cosigned by Shanti Reyes MD at 04/10/2025 1:18 AM EDT Associated attestation - Shanti Reyes MD - 04/10/2025 1:18 AM EDT Attending Attestation: I was not involved in the care of this patient nor had any participation in the medical decision making process. documented in this encounter H&P Notes * GUICHO Brody - 04/10/2025 1:23 AM EDT HISTORY AND PHYSICAL Patient: Jia Valdez : 1990 (34 y.o. female) Admit Date: 04/09/2025 Location: 14/ Dictating Physician: GUICHO Daly Attending: No att. providers found Primary Care Provider: Cassius Alvarez MD [facility] Encounter Date & Time: 04/10/2025 Service: General Surgery Chief Complaint: Wound drainage History of Present Illness: Ms. Jia Valdez is a very pleasant 34 y.o. female well-known to the bariatric service with extensive past surgical history including laparoscopic sleeve gastrectomy August 2019, laparoscopy with removal of imbrication stitch September 2019, robotic conversion of sleeve to gastric bypass and repair of hiatal hernia July 2023, robotic revision of gastrojejunostomy and lysis of adhesions October2023, and most recent robotic reversal of gastric bypass December 28, 2024 to address ongoing issues ofnausea, vomiting and intolerance of p.o intake. She also has medical history significant for anxiety, depression, GERD, asthma and arthritis. Recent admission 02/17-03/02 for nausea and vomiting, inability to tolerate p.o. CT scan at that time was unremarkable. Underwent EGD which revealed severe stenosis of the sleeve gastrectomy which was dilated. She was ultimately discharged home on TPN and outpatient follow-up with Dr. Frost. Seen in the office on 03/07/2025 with plans at that point to return to the OR electively for possible revision of the gastrogastric anastomosis. Patient ultimately underwent revision of the GG anastomosis. Pain nausea vomiting poor p.o. intake or issues postoperatively and later a postop wound infection. CT abdomen pelvis revealed a 6 x 3 x 4.2 cm fluid collection with gas. Cultures eventually grew out En terobacter JIMY CA, MSSA and strep viridans. She completed a 7-day course of antibiotics, her white count had normalized, and was discharged home with VNA services with Aquacel dressing changes every other day. She called the office the other day as her packing had fallen out and was instructed to just cover it with a dry sterile dressing until the N/A could replace the packing the next day. She was seen here on 04/07 for persistent wound issues and nausea and poor p.o. intake. WBC was 11 there was no further imaging the wound looked clean at that time and was repacked. She was discharged to home once again. She returns tonight with continued complaints of nausea but no vomiting. Trouble taking p.o. particularly the Rafiq 2. Still receiving TPN through a PICC line. Pain has been an ongoing issue. There is now reported increased drainage from the wound. Upon arrival tonight she is afebrile and vital signs are stable. WBC has creeped up to 12.8. H&H 10.9/34, BUN/creatinine 11/0.54. CT abdomen pelvis shows the wound with a much smaller collection measuring 1.5 x 0.2 cm in size with gas in the opening of the right anterior wall wound. Antibiotics administered by ER general surgery consulted. Past Medical History: Allergies: Allergies[1] Medications: Medications Ordered Prior to Encounter[2] Medical History: Medical History[3] Surgical History: Surgical History[4] Social History: Social History Socioeconomic History ??? Marital status: Single Spouse name: Not on file ??? Number of children: Not on file ??? Years of education: Not on file ??? Highest education level: Not on file Occupational History ??? Not on file Tobacco Use ??? Smoking status: Never ??? Smokeless tobacco: Never Substance and Sexual Activity ??? Alcohol use: Yes ??? Drug use: No ??? Sexual activity: Defer Other Topics Concern ??? Not on file Social History Narrative ??? Not on file Family History: Family History[5] Review of Systems: Review of Systems GENERAL: No fevers, chills, or malaise, she does endorse weakness and fatigue, HEENT: No changes in hearing or vision, nasal problems, or scleral icterus. NECK: No goiter or significant neck swelling. No cervical or supraclavicular lymphadenopathy. RESPIRATORY: No cough, wheezing, shortness of breath or pleuritic chest pain. CARDIOVASCULAR: No chest pain, leg swelling or palpitations. GASTROINTESTINAL: Endorses abdominal discomfort and drainage from the wound, nausea, but no vomiting, no reported blood in stools or black stools, but does not continue to experience diarrhea. GENITOURINARY: No dysuria, frequency, or incontinence. MUSCULOSKELETAL: No joint pain or swelling, back pain, or muscle pain. SKIN: No lesions, rash, jaundice, or itching. HEMATOLOGY: No prolonged bleeding, easy bruisability or swollen nodes. ENDOCRINE: No cold or heat intolerance, polyuria, polydipsia, or goiter. NEURO: No weakness or numbness. PSYCH: No mood disorders, sleep disturbance, or depression Physical Exam: Visit Vitals BP 102/67 (BP Location: Left arm, Patient Position: Lying) Pulse 90 Temp 36.7 ??C (98.1 ??F) (Oral) Resp 18 Ht 1.6 m (63 ) Wt 88.5 kg (195 lb) LMP 02/18/2025 SpO2 95% BMI 34.54 kg/m?? OB Status Having periods Smoking Status Never BSA 1.91 m?? Weight (kg): 88.5 BMI: Body mass index is 34.54 kg/m??. Physical Exam GENERAL APPEARANCE: Pleasant, awake, alert, and in no acute distress. Appears stated age. HEENT: Normocephalic, atraumatic. Hearing intact to voice confrontation. Pupils equal and round, EOMI, sclera anicteric. Nares patent bilaterally. Oropharynx with moist, pink mucous membranes and no lesions. NECK: Neck supple, no cervical or supraclavicular adenopathy. Thyroid midline and without goiter, nodule, tenderness, or mass. CARDIOVASCULAR: Regular rate and rhythm with no appreciable murmur. No significant peripheral edema RESPIRATORY: Non-labored respirations on room air. Clear to auscultation bilaterally without without focal areas of wheezing, rales, or rhonchi. Equal expansion. GASTROINTESTINAL: Normal appearance. Bowel sounds normoactive. Soft, nondistended, tender only around the incision. No appreciable mass. No organomegaly. No ventral or umbilical hernia noted. Mepilexdressing taken down there is no packing. The edges appear pink however there is bloody discharge exp ressed from the wound onto the dressing. MUSCULOSKELETAL: No gross deformities. Grossly normal range of motion. EXTREMITIES: Warm and well-perfused without clubbing, cyanosis, or edema. LYMPHATICS: No abnormal lumps or swelling noted. No lymphedema. INTEGUMENTARY: Skin color, texture, and turgor normal. No rashes, eruptions, or skin breakdown noted on visible skin. Warm and dry. NEUROLOGIC: Awake, alert, and oriented to person, place, time, and situation. Motor and sensory grossly intact. PSYCHIATRIC: Normal mood and affect. No psychomotor agitation or obvious behavioral abnormality. Results: Laboratories: Lab Results Component Value Date WBC 12.8 (H) 04/09/2025 HGB 10.9 (L) 04/09/2025 HCT 34.0 (L) 04/09/2025 MCV 97.4 04/09/2025 PLT 494 (H) 04/09/2025 Lab Results Component Value Date GLUCOSE 88 04/09/2025 CALCIUM 9.3 04/09/2025 NA 136 04/09/2025 K 4.1 04/09/2025 CO2 24 04/09/2025 CL 104 04/09/2025 BUN 11 04/09/2025 CREATININE 0.54 04/09/2025 Lab Results Component Value Date ALBUMIN 2.7 (L) 04/07/2025 ALKPHOS 116 04/07/2025 ALT 22 04/07/2025 AST 16 04/07/2025 BILITOT 0.2 04/07/2025 BILIIND 04/01/2025 Comment: Unable to calculate Indirect Bilirubin. BILIDIR <0.1 04/01/2025 PT 12.9 03/23/2025 LIPASE 29 03/17/2025 Lab Results Component Value Date PT 12.9 03/23/2025 INR 1.0 03/23/2025 Lab Results Component Value Date MG 2.0 04/09/2025 PHOS 3.9 04/05/2025 Lab Results Component Value Date LACTATE 1.0 04/09/2025 Imaging Studies: CT Abdomen Pelvis w Contrast Narrative: INDICATION: post op abscess CT ABDOMEN AND PELVIS WITH CONTRAST COMPARISON: 03/28/2025. FINDINGS: Soft tissue wound is noted involving the right anterior abdominal wall, for example seen on coronal image 5 and axial image 85. Subcutaneous gas bubbles are noted within the anterior abdominal wall. The previously noted fluid in the subcutaneous tissues of the right anterior abdominal wall has decreased in size, without complete resolution. Small amount of fluid remains in the subcutaneous tissues of the right anterior abdominal wall, estimated to measure 1.5 x 0.2 cm on sagittal image 62. Postsurgical changes are again noted involving the stomach. Adjacent stranding/haziness is again noted which does not appear to be significantly changed and might be postoperative in nature. Post cholecystectomy changes are again noted, along with postoperative changes involving small bowel. No evidence of a bowel obstruction or free air. Portions of the colon are underdistended which limits assessment. Appendix is visualized and there is no evidence of acute appendicitis. Some contrast material is noted within the cecum. The lung bases are unremarkable. Focal fatty infiltration is noted adjacent to the falciform ligament of the liver. Small area of low attenuation is noted in the left hepatic lobe on axial image 63 which is too small to characterize but might be related to postoperative change/fluid. No CT evidence of acute pancreatitis. Spleen, adrenal glands, and both kidneys demonstrate no acute abnormalities. No hydronephrosis or obstructing stone. Urinary bladder is unremarkable. Abdominal aorta is normal in caliber, without evidence of an aneurysm or dissection. Bilateral ovarian follicles are noted, for example measuring 1.5 cm in the left ovary on axial image 129. Uterus and adnexa are otherwise grossly unremarkable. No evidence of a bowel containing hernia. The bone windows demonstrate no acute abnormalities. Impression: 1. Soft tissue wound is noted involving the right anterior abdominal wall. Subcutaneous gas bubbles are noted within the anterior abdominal wall. This might be related to postprocedural changes. Infection is not excluded. Previously noted fluid in the subcutaneous tissues of the right anterior abdominal wall has decreased in size, without complete resolution. Please see above for details. 2. Postsurgical changes are again noted involving the stomach. Adjacent stranding/haziness is again noted which does not appear to be significantly changed and might be postoperative in nature. 3. Additional findings are detailed above. This document has been electronically signed by: Avery Santamaria M.D. on 04/09/2025 23:58:45 Impression & Plan: Problem List: 1. Post-operative wound abscess Problem List[6] Assessment: 34 y.o. female well-known to the bariatric service who presents to [facility] ED with complaints of drainage from a known postoperative wound infection, nausea but no vomiting weakness and dizziness. Still unable to tolerate significant p.o. intake requiring TPN.. Wound with drainage that is new. Collection seen on CT is actually smaller however she is developing a mild leukocytosis which is a change from discharge in addition to the purulent bloody discharge seen on examination. Will admit to the service for IV antibiotics until p.o. antibiotic choice can be determined so she may be discharged to home and continue care with VNA services. Plan: - Admit to surgical service, Dr. Frost to see - Diet: Bariatric 2 - IV fluids: Cyclic TPN - IV antibiotics: Ceftriaxone, Vanco, Flagyl - Analgesics and antiemetics PRN - DVT prophylaxis: intermittent pneumatic compression boots and heparin - Incentive spirometry - Communicated with Dr. Rome Time Attestation: The patient was seen independently. I spent a total of 60 minutes independently performing a chart review (reviewing laboratories, imaging studies, procedure reports, provider/specialist notes), obtaining history and physical exam, discussing care with the on-call surgeon (Dr. Rome), placing orders (admission, medications, further labs/imaging studies), formulating a plan, coordinating care withall providers/specialists involved in the patient's care, and documenting in the patient's chart. [1] Allergies Allergen Reactions ??? Infliximab Headache Other reaction(s): Headaches, SEVERE HEADACHE [2] No current facility-administered medications on file prior to encounter. Current Outpatient Medications on File Prior to Encounter Medication Sig Dispense Refill ??? acetaminophen (TYLENOL) 500 mg tablet Take 2 tablets (1,000 mg total) by mouth every 8 (eight) hours. 30 tablet 0 ??? albuterol 2.5 mg /3 mL (0.083 %) nebulizer solution Take 1 Vial by nebulization every 4 hours as needed. ??? albuterol HFA (PROAIR HFA ; PROVENTIL HFA ; VENTOLIN HFA) 90 mcg/actuation inhaler Inhale 2 Puffs into the lungs every 4 hours as needed for Cough or Wheezing for up to 30 days. ??? ARIPiprazole (ABILIFY) 5 mg tablet Take 0.5 tablets (2.5 mg total) by mouth 1 (one) time each day. at bedtime. ??? blood-glucose meter kit 1 Kit by Does not apply route daily. ??? cholecalciferol (VITAMIN D-3) 25 mcg (1,000 unit) capsule Take 1 capsule (1,000 Units total) bymouth 1 (one) time each day. ??? clonazePAM (KlonoPIN) 0.5 mg tablet Take 1 tablet (0.5 mg total) by mouth 1 (one) time each day. ??? diclofenac (VOLTAREN) 1 % topical gel Apply 4 g topically 4 (four) times a day. ??? docusate sodium (COLACE) 100 mg capsule Take 1 capsule (100 mg total) by mouth 1 (one) time each day. 7 each 0 ??? ergocalciferol (VITAMIN D-2) 1,250 mcg (50,000 unit) capsule Take 1 capsule (50,000 Units total) by mouth 1 (one) time per week. (Patient not taking: Reported on 03/17/2025) 12 each 0 ??? escitalopram (LEXAPRO) 20 mg tablet Take 1 tablet (20 mg total) by mouth 1 (one) time each day. ??? esomeprazole (NexIUM) [address] capsule TAKE 1 CAPSULE(40 MG) BY MOUTH 1 TIME EACH DAY BEFORE BREAKFAST. DO NOT OPEN CAPSULE 90 capsule 3 ??? famotidine (PEPCID) 40 mg tablet Take 1 tablet (40 mg total) by mouth at bedtime. 30 each 3 ??? HYDROmorphone (DILAUDID) 2 mg tablet Take 1 tablet (2 mg total) by mouth every 4 (four) hours if needed for severe pain. Max Daily Amount: 12 mg 12 tablet 0 ??? medical supply, miscellaneous (MISCELLANEOUS MEDICAL SUPPLY [facility] [place]) GLUCOSE BLOOD TEST STRIPS (ASCENSIA AUTODISC ,ONE TOUCH ULTRA TEST ) STRIP One glucose script per blood sugar check twice daily ??? methocarbamoL (ROBAXIN) 500 mg tablet Take 1 tablet (500 mg total) by mouth 1 (one) time each day if needed for muscle spasms. ??? [] metoclopramide (REGLAN) 10 mg tablet Take 1 tablet (10 mg total) by mouth 4 (four) times a day (before meals and nightly). 120 each 0 ??? metoprolol succinate (TOPROL-XL) 25 mg 24 hr tablet Take 1 tablet (25 mg total) by mouth 1 (one) time each day. Do not crush or chew. ??? mirtazapine (REMERON) 15 mg tablet Take 0.5 tablets (7.5 mg total) by mouth at bedtime. ??? norethindrone (RISSA,AYDE,MONTSERRAT,MICRONOR) 0.35 mg tablet Take 1 tablet (0.35 mg total) by mouth 1 (one) time each day. 84 tablet 1 ??? ondansetron (ZOFRAN) 4 mg tablet Take 1 tablet (4 mg total) by mouth every 8 (eight) hours if needed for nausea or vomiting. 10 tablet 0 ??? [DISCONTINUED] HYDROmorphone (DILAUDID) 2 mg tablet Take 1 tablet (2 mg total) by mouth every 4(four) hours if needed for severe pain. Max Daily Amount: 12 mg 12 tablet 0 [3] Past Medical History: Diagnosis Date ??? Abdominal pain NAUSEA FROM BYPASS ??? Anxiety ??? Arthritis ??? Asthma ??? Chronic kidney disease kidney stones ??? Chronic pain disorder ??? Depression ??? Dizziness ??? GERD (gastroesophageal reflux disease) ??? PONV (postoperative nausea and vomiting) ??? Thoracic radiculopathy [4] Past Surgical History: Procedure Laterality Date ??? BARIATRIC SURGERY 08/12/2019 laparoscopic sleeve gastrectomy ([place]) ??? BARIATRIC SURGERY 09/12/2019 exploratory laparoscopy, removal of imbricating stitch, fluoroscopy ([place]) ??? BARIATRIC SURGERY 10/12/2023 robotic revision of gastrojejunostomy, lysis of adhesions, fluoroscopy ([place]) ??? BARIATRIC SURGERY 12/28/2024 robotic reversal of gastric bypass ([place]) ??? BARIATRIC SURGERY 07/29/2023 robotic conversion of sleeve to gastric bypass and hiatal hernia repair ([place]) ??? BARIATRIC SURGERY 03/23/2025 [place] revision of GG anastomosis, upper GI endoscopy ([place]) ??? CHOLECYSTECTOMY ??? ESOPHAGOGASTRODUODENOSCOPY ??? MYOMECTOMY 11/29/2023 endometrial biopsy and abdominal myomectomy ([place]) [5] Family History Problem Relation Name Age of Onset ??? No Known Problems Mother ??? No Known Problems Father ??? Cancer Father's Sister Breast' ??? Stroke Maternal Grandfather ??? Cancer Maternal Grandfather prostate ??? Stroke Paternal Grandmother [6] Patient Active Problem List Diagnosis ??? ADHD (attention deficit hyperactivity disorder) ??? Adnexal cyst ??? Allergic rhinitis ??? Ankylosing spondylitis (CMS/HCC V24, CMS/HCC V28) ??? Anxiety ??? Asthma ??? Bladder spasms ??? Bulimia ??? DDD (degenerative disc disease), lumbosacral ??? Depression ??? Dizziness of unknown etiology ??? Dysmenorrhea ??? Elevated blood pressure reading ??? Iron deficiency anemia due to chronic blood loss ??? Iron deficiency anemia ??? Leukocytosis ??? Maternal varicella, non-immune ??? Menorrhagia with regular cycle ??? Migraine with aura ??? Nephrolithiasis ??? OCD (obsessive compulsive disorder) ??? GRAY (obstructive sleep apnea) ??? Pelvic pain ??? Positive GBS test ??? POTS (postural orthostatic tachycardia syndrome) ??? Vitamin D deficiency ??? Breakthrough bleeding on control pills ??? Paratubal cyst ??? Abdominal pain, acute, epigastric ??? Abdominal pain, generalized ??? Nausea and vomiting ??? H/O gastric bypass ??? Nausea and vomiting, unspecified vomiting type ??? Nausea ??? Complication of bariatric procedure ??? Anastomotic stricture of stomach ??? Dehydration documented in this encounter Procedure Notes * Peace Petty RN - 04/12/2025 4:24 PM EDT Report called to Med-surg nurse De. Gave pt to Mathew Matta RN to continue phase II at 1624. documented in this encounter Consult Notes * GUICHO Newsome - 04/11/2025 2:34 PM EDT Consults History Of Present Illness (includes Chief Complaint): Jia Valdez is a 34 y.o. female with PMH anxiety, asthma, CKD, GERD, POTS, depression amongst others presenting with complaint of dizziness. Patient reports this has been ongoing for the last 5 days. She denies her dizziness being worse or better throughout the day. She does endorse positionalchanges worsens her dizziness. She states that she has a history of dizziness and previously went to physical therapy although she states it didn't help much. She reports she has associated nausea from this. She has had difficultly with po intake and has been only tolerating small sips of fluids throughout the day. It is unclear if the dose of meclizine helped since she fell asleep directly afterw ards. Her vitals are stable, negative for orthostatics. Labs are within normal limits with the exception of mild anemia hgb 10.1, hct 31.9. Past Medical History: She has a past medical history of Abdominal pain, Anxiety, Arthritis, Asthma, Chronic kidney disease, Chronic pain disorder, Depression, Dizziness, GERD (gastroesophageal reflux disease), PONV (postoperative nausea and vomiting), and Thoracic radiculopathy. Surgical History: She has a past surgical history that includes Esophagogastroduodenoscopy; Bariatric Surgery (08/12/2019); Cholecystectomy; Myomectomy (11/29/2023); Bariatric Surgery (09/12/2019); Bariatric Surgery (10/12/2023); Bariatric Surgery (12/28/2024); Bariatric Surgery (07/29/2023); and Bariatric Surgery (0 03/23/2025). Family History: family history includes Cancer in her father's sister and maternal grandfather; No Known Problems in her father and mother; Stroke in her maternal grandfather and paternal grandmother. Social History: She reports that she has never smoked. She has never used smokeless tobacco. She reports current alcohol use. She reports that she does not use drugs. Allergies: Infliximab Home Medications: Prescriptions Prior to Admission[1] Review of Systems 10 point review of systems negative as otherwise stated in the HPI Last Recorded Vitals: Blood pressure 106/72, pulse 95, temperature 36.6 ??C (97.9 ??F), temperature source Oral, resp. rate 16, height 1.6 m (63 ), weight 83.2 kg (183 lb 6.4 oz), SpO2 99%, unknown if currently . Physical Exam General: well appearing, in no acute distress, calm Skin: Appropriate tone for ethnicity, warm, dry, no rashes or wounds HEENT: normocephalic, atraumatic, sclera nonicteric, mild vertical nystagmus on EOM, pupils are pinpoint but PERRL, moist mucous membranes, smile symmetric Pulmonary: Lungs clear to auscultation in all lung vann bilaterally. No wheezes rales or rhonchi appreciated, no respiratory distress, no accessory muscle use. Cardiac: S1 and S2 appreciated, no murmurs, rubs or gallops, no peripheral edema Abdomen: Soft, mild tenderness near incision site, nondistended, no guarding or rebound tenderness appreciated. Bowel sounds normoactive. Dressing in place over wound. MSK: Full range of motion in upper and lower extremities with strength 5/5 and equal bilaterally dorsiflexion, plantar flexion, handgrip strength. No drift to the extremities bilaterally Neuro: Alert and oriented x4. Cranial nerves 2-12 intact with exception of nystagmus as noted above. No focal neurological deficits appreciated. No facial droop. Sensation intact to upper and lower extremities. Psych: Normal affect. Relevant Results: Brain CT ordered, labs wnl today with exception of anemia hgb 10.1, hct 31.9 Assessment/Plan Principal Problem: Wound infection after surgery -continue management as per general surgery -continue ceftriaxone, metronidazole, vancomycin -continue with tpn and Rafiq 2 diet Dizziness -orthostatics were negative, will check brain ct and vitamin b12 -could be in the setting of narcotics with multiple psychiatric medication, continue to monitor, could trial another dose of meclizine -encouraged po intake of fluids Chronic anemia -hgb 10.1, hct 31.9. baseline since last month appears to be 9-10 -continue to trend while inpatient Hypertension -continue metoprolol Depression -continue escitalopram, mirtazapine and abilify Anxiety -continue clonazepam GERD -continue ppi DVT prophylaxis -SCD CODE STATUS -Full code -emergency contact is mother Nati Valdez, Case discussed with Dr. Blake [1] Medications Prior to Admission Medication Sig Dispense Refill Last Dose/Taking acetaminophen (TYLENOL) 500 mg tablet Take 2 tablets (1,000 mg total) by mouth every 8 (eight) hours. 30 tablet 0 albuterol 2.5 mg /3 mL (0.083 %) nebulizer solution Take 1 Vial by nebulization every 4 hours as needed. albuterol HFA (PROAIR HFA ; PROVENTIL HFA ; VENTOLIN HFA) 90 mcg/actuation inhaler Inhale 2 Puffs into the lungs every 4 hours as needed for Cough or Wheezing for up to 30 days. ARIPiprazole (ABILIFY) 5 mg tablet Take 0.5 tablets (2.5 mg total) by mouth 1 (one) time each day. at bedtime. blood-glucose meter kit 1 Kit by Does not apply route daily. cholecalciferol (VITAMIN D-3) 25 mcg (1,000 unit) capsule Take 1 capsule (1,000 Units total) by mouth 1 (one) time each day. clonazePAM (KlonoPIN) 0.5 mg tablet Take 1 tablet (0.5 mg total) by mouth 1 (one) time each day. escitalopram (LEXAPRO) 20 mg tablet Take 1 tablet (20 mg total) by mouth 1 (one) time each day. esomeprazole (NexIUM) [address] capsule TAKE 1 CAPSULE(40 MG) BY MOUTH 1 TIME EACH DAY BEFORE BREAKFAST. DO NOT OPEN CAPSULE 90 capsule 3 famotidine (PEPCID) 40 mg tablet Take 1 tablet (40 mg total) by mouth at bedtime. 30 each 3 HYDROmorphone (DILAUDID) 2 mg tablet Take 1 tablet (2 mg total) by mouth every 4 (four) hours if needed for severe pain. Max Daily Amount: 12 mg 12 tablet 0 medical supply, miscellaneous (MISCELLANEOUS MEDICAL SUPPLY [facility]) GLUCOSE BLOOD TEST STRIPS (ASCENSIA AUTODISC ,ONE TOUCH ULTRA TEST ) STRIP One glucose script per blood sugar check twice daily methocarbamoL (ROBAXIN) 500 mg tablet Take 1 tablet (500 mg total) by mouth 1 (one) time each day if needed for muscle spasms. [] metoclopramide (REGLAN) 10 mg tablet Take 1 tablet (10 mg total) by mouth 4 (four) times a day (before meals and nightly). 120 each 0 metoprolol succinate (TOPROL-XL) 25 mg 24 hr tablet Take 1 tablet (25 mg total) by mouth 1 (one) time each day. Do not crush or chew. mirtazapine (REMERON) 15 mg tablet Take 0.5 tablets (7.5 mg total) by mouth at bedtime. norethindrone (RISSA,AYDE,MONTSERRAT,MICRONOR) 0.35 mg tablet Take 1 tablet (0.35 mg total) by mouth1 (one) time each day. 84 tablet 1 Cosigned by Zhao Blake MD at 04/16/2025 9:25 PM EDT Associated attestation - Zhao Blake MD - 04/16/2025 9:25 PM EDT This is a split/shared visit with GUICHO Newsome. I personally performed the medical decision making (MDM) for the care of this patient on 04/11/25 as documented below Patient was discussed with Advanced Practice Provider. This is a medical consultation for this 34-year-old obese woman with history of anxiety, asthma, CKD, GERD, POTS, depression, etc. who was admitted to the surgical service for a wound infection post bariatric surgery. We were consulted because of dizziness which she seems to have for the past 5 days. The dizziness seems to be constant; although it seems to getsworse with any type of movement of her head. She describes the sensation as a vertigo but also as a lightheadedness. She said in the past she had vertigo for which she was referred to vertigo rehab with minimal help. It seems that she has not been drinking much fluids because of is sues with nausea and abdominal pain. She was found not orthostatic. It's unclear the cause of her vertigo but the vertigo sensation seem to be peripheral in nature. Nonetheless for completeness we will do a head CT and also will be checking B12 and TSH. Will try meclizine for her symptoms. I personally saw and examined the patient at bedside. I independently obtained further history and reviewed significant updates, labs and imaging. I also contacted pertinent consultants in order to facilitate patient's medical care. Otherwise, I agree with the documentation and plan as outlined in the note below. Zhao Blake MD 04/16/25 8:50 PM EDT * Pietro Mayer MD - 04/11/2025 11:12 AM EDT Chief complaint: Chronic diarrhea History of present illness: Ms. Valdez is a pleasant 34-year-old woman who is now admitted with nausea, dizziness, and a wound infection. She has had multiple surgeries related to a laparoscopic sleeve gastrectomy, with subsequent stricturing of the GG anastomosis which ultimately had to be surgically revised a few weeks ago.She has had some issues since then first with a collection and, now with a wound infection. She hasbeen on and off antibiotics for this. She presented to the ER a few days ago with ongoing nausea and dizziness. She also gives a history of severe watery diarrhea, which began 3 months ago, prior to her most recent surgery. She describes several loose and watery bowel movements every day, regardless of whethershe eats or not. There is no blood in the stool and no further significant abdominal pain or vomiting. She has lost some weight. Initial stool studies have been negative, and CT scan did not show anycolitis. Review of systems: Positive for weight loss, nausea, diarrhea, and issues related to her wound. Denies further vomiting or severe abdominal pain. Denies any new prescriptions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 (entire examined portion) appearednormal. Biopsies for histology were taken with a coldforceps from the right colon, transverse colon anddescending colon for evaluation of microscopic colitis. The terminal ileum appeared normal. Procedure Code(s): --- Professional --- 67955, Colonoscopy, flexible; with biopsy, singleor multiple Diagnosis Code(s): --- Professional --- K52.9, Noninfective gastroenteritis and colitis, unspecified CPT copyright 2020 [employer]. All rights reserved. The codes documented in this report are preliminary and upon television newscast director reviewmay be revised to meet current compliance requirements. Pietro Mayer MD 04/12/2025 4:21:01 PM This report has been signed electronically.Pietro Mayer MD Number of Addenda: 0 Note Initiated On: 04/12/2025 3:41 PM Scope In: Scope Out: Endoscopy Department at [facility] - [address] [place] [id number] IMPRESSION: - The entire examined colon is normal. Biopsied. - The examined portion of the ileum was normal. Recommendation: - Await pathology results. - Continue present medications. us Pietro Mayer MD GI~PROCEDURE ORDERABLES Fin al Result * Tissue exam (04/12/2025 4:15 PM EDT) Final Diagnosis A. Colon, random biopsies: - Colonic mucosa with non-specific, mild superficial lymphoplasmacytos is. - Negative for architectural distortion, increased intraepithelial lymphocytes, basement membrane thickening, acute inflammation, epithelial surface injury, and granulomas. 04/16/2025 10:58 AM EDT [facility] at 1058 EDT Gross Description A. Colon, random biopsies: Labeled colon random . Received in formalin are seven irregular alas mucosal tissue fragments, each measuring approximately 0.2 cm in greatest dimension, which are wrapped in paper and submitted in toto in one cassette, seven pieces, multiple levels on one slide. NOREEN 04/16/2025 10:58 AM EDT [facility] Disclaimer Unless otherwise specified, all tissue is 10% NB formalin fixed and paraffin embedded. 04/16/2025 10:58 AM EDT [facility] Tissue Colon structure / Unknown 04/12/2025 4:15 PM EDT 04/13/2025 8:48 AM EDT Pietro Mayer MD LAB PATHOLOGY ORDERABLES Fi nal Result Performing Organization Address City/State/[facility] Co de Phone Number [facility] [address] [place] [address], * ECG 12 lead (04/12/2025 9:37 AM EDT) Ventricular Rate ECG 95 BPM GEMUSE Atrial Rate 95 BPM GEMUSE P-R Interval 160 ms GEMUSE QRS Duration 72 ms GEMUSE Q-T Interval 366 ms GEMUSE QTc 459 ms GEMUSE P Wave [place] 62 degrees GEMUSE R [place] -20 degrees GEMUSE T [place] 28 degrees GEMUSE ECG Interpretation Normal sinus rhythm Normal ECG When compared with ECG of 26-MAR-2025 17:10, Premature ventricular complexes are no longer Present Confirmed by SILVERIO LOPEZ ([id number]) on 04/12/2025 6:03:46 PM GEMUSE 04/12/2025 9:37 AM EDT 04/12/2025 6:03 PM EDT Awilda LINDO ECG ORDERABLES Final Resul t Performing Organization Address City/[facility] de Phone Number GEMUSE * Thyroid stimulating hormone with reflex to free t4 and free t3 (04/12/2025 6:03 AM EDT) TSH 1.29 0.40 - 4.00 mcIU/mL LAB CHEMISTRY METHOD 04/12/2025 10:02 AM EDT [facility] Blood Blood sample taken from central line / Unknown Venipuncture / Unknown 04/12/2025 6:03 AM EDT 04/12/2025 6:19 AM EDT Awilda LINDO LAB BLOOD ORDERABLES Final Result Performing Organization Address [facility] de Phone Number [facility] [address] [place] [address], [place] [phone] * Phosphorus (04/12/2025 6:03 AM EDT) Phosphorus 2.9 2.5 - 4.5 mg/dL LAB CHEMISTRY METHOD 04/12/2025 7:02 AM EDT [facility] Blood Blood sample taken from central line / Unknown Venipuncture / Unknown 04/12/2025 6:03 AM EDT 04/12/2025 6:19 AM EDT Sharon LINDO LAB BLOOD ORDERABLES Final Resu lt Performing Organization Address City/[facility]/ZIP Co de Phone Number [facility] [address] [place] [address], [place] [phone] * Magnesium (04/12/2025 6:03 AM EDT) Magnesium 2.0 1.9 - 2.6 mg/dL LAB CHEMISTRY METHOD 04/12/2025 7:02 AM EDT [facility] Blood Blood sample taken from central line / Unknown Venipuncture / Unknown 04/12/2025 6:03 AM EDT 04/12/2025 6:19 AM EDT us Sharon LINDO LAB BLOOD ORDERABLES Final Resu lt [facility] [address] [place] [address], [place] [phone] * (ABNORMAL) Basic metabolic panel (04/12/2025 6:03 AM EDT) Sodium 138 133 - 145 mmol/L LAB CHEMISTRY METHOD 04/12/2025 7:[address] [facility] Potassium 4.0 3.5 - 5.5 mmol/L LAB CHEMISTRY METHOD 04/12/2025 7:[address] [facility] Chloride 109 96 - 110 mmol/L LAB CHEMISTRY METHOD 04/12/2025 7:[address] [facility] CO2 24 21 - 32 mmol/L LAB CHEMISTRY METHOD 04/12/2025 7:[address] [facility] Anion Gap 5 3 - 11 LAB CHEMISTRY METHOD 04/12/2025 7:[address] [facility] Glucose 111(H) 70 - 100 mg/dL LAB CHEMISTRY METHOD 04/12/2025 7:[address] [facility] BUN 16 5 - 25 mg/dL LAB CHEMISTRY METHOD 04/12/2025 7:[address] [facility] Creatinine 0.40(L) 0.50 - 1.10 mg/dL LAB CHEMISTRY METHOD 04/12/2025 7:[address] [facility] eGFR 135 >=60 mL/min/1. 73m2 LAB CHEMISTRY METHOD 04/12/2025 7:[address] [facility] Comment:Calculation based on the Chronic Kidney Disease Epidemiology Collaboration (CKD-EPI) equation refit without adjustment for race. BUN/Creatinine Ratio 40.0 LAB CHEMISTRY METHOD 04/12/2025 7:[address] [facility] Calcium 8.2(L) 8.5 - 10.5 mg/dL LAB CHEMISTRY METHOD 04/12/2025 7:02 AM EDT [facility] Blood Blood sample taken from central line / Unknown Venipuncture / Unknown 04/12/2025 6:03 AM EDT 04/12/2025 6:19 AM EDT us Sharon LINDO LAB BLOOD ORDERABLES Final Resu lt [facility] [address] [place] [address], * CT Head wo Contrast (04/11/2025 6:14 PM EDT) Anatomical Region Laterality Modality Head and Neck Computed Tomogra phy 04/11/2025 6:38 PM EDT Impressions 04/11/2025 6:38 PM EDT Impression: Unremarkable CT of the head. This document has been electronically signed by: Hair Valenzuela MD on 04/11/2025 18:38:35 Narrative 04/11/2025 6:38 PM EDT INDICATION: dizziness CT Head Without Contrast: Comparison: None Findings: Cortical sulci are symmetric Basal ganglia are unremarkable No shift in midline structures No intraparenchymal bleeding or abnormal extra axial blood fluid collections Normal pituitary size Clear paranasal sinuses. Mastoid air cells and middle ear cavities are unremarkable. Posterior fossa and cerebellar pontine angles are unremarkable. Unremarkable orbital structures No depressed fractures Procedure Note Hair Valenzuela MD - 04/11/2025 INDICATION: dizziness CT Head Without Contrast: Comparison: None Findings: Cortical sulci are symmetric Basal ganglia are unremarkable No shift in midline structures No intraparenchymal bleeding or abnormal extra axial blood fluid collections Normal pituitary size Clear paranasal sinuses. Mastoid air cells and middle ear cavities are unremarkable. Posterior fossa and cerebellar pontine angles are unremarkable. Unremarkable orbital structures No depressed fractures IMPRESSION: Impression: Unremarkable CT of the head. This document has been electronically signed by: Hair Valenzuela MD on 04/11/2025 18:38:[address] PROCEDURES Final Resul t * Vitamin B12 and folate (04/11/2025 12:09 PM EDT) [facility] Vitamin B-12 778 250 - 900 pcg/mL LAB CHEMISTRY METHOD 04/11/2025 4:18 PM EDT [facility] Folate 16.2 2.8 - 17.0 ng/ml LAB CHEMISTRY METHOD 04/11/2025 4:18 PM EDT [facility] Blood Venous blood specimen / Unknown Venipuncture / Unknown 04/11/2025 12:09 PM EDT 04/11/2025 12:40 PM EDT Katelin LINDO LAB BLOOD ORDERABLES Final Re sult Performing Organization Address City/[facility]/ZIP Co de Phone Number [facility] [address] [place] [address], [place] [phone] * (ABNORMAL) Immunoglobulin IgA (04/11/2025 12:09 PM EDT) [facility] IgA 397(H) 61 - 348 mg/dL LAB CHEMISTRY METHOD 04/11/2025 1:21 PM EDT [facility] Blood Venous blood specimen / Unknown Venipuncture / Unknown 04/11/2025 12:09 PM EDT 04/11/2025 12:40 PM EDT Pietro Mayer MD LAB BLOOD ORDERABLES Final Result Performing Organization Address [facility]/ZIP Co de Phone Number [facility] [address] [place] [address], [place] [phone] * Vancomycin, trough (04/11/2025 12:09 PM EDT) [facility] Vancomycin Trough 14.8 10.0 - 20.0 mcg/mL LAB CHEMISTRY METHOD 04/11/2025 1:21 PM EDT [facility] Blood Venous blood specimen / Unknown Venipuncture / Unknown 04/11/2025 12:09 PM EDT 04/11/2025 12:40 PM EDT us Ramya LINDO LAB BLOOD ORDERABLES Final Re sult [facility] [address] [place] [address], * (ABNORMAL) CBC auto differential (04/11/2025 6:28 AM EDT) WBC 9.5 4.8 - 10.8 K/mcL LAB HEMETOLOGY METHOD [facility] RBC 3.30(L) 3.80 - 4.80 M/mcL LAB HEMETOLOGY METHOD 04/11/2025 7:[address] [facility] Hemoglobin 10.1(L) 11.5 - 16.0 g/dL LAB HEMETOLOGY METHOD 04/11/2025 7:[address] [facility] Hematocrit 31.9(L) 35.0 - 47.0 % LAB HEMETOLOGY METHOD 04/11/2025 7:[address] [facility] MCV 97.3 79.0 - 98.0 FL LAB HEMETOLOGY METHOD 04/11/2025 7:[address] [facility] MCH 30.8 27.0 - 32.0 pcg LAB HEMETOLOGY METHOD 04/11/2025 7:[address] [facility] MCHC 31.7(L) 32.0 - 37.0 g/dL LAB HEMETOLOGY METHOD 04/11/2025 7:[address] [facility] RDW 15.6(H) 11.0 - 15.0 % LAB HEMETOLOGY METHOD 04/11/2025 7:[address] [facility] Platelets 369 130 - 400 K/mcL LAB HEMETOLOGY METHOD 04/11/2025 7:[address] [facility] MPV 9.2 7.0 - 11.0 FL LAB HEMETOLOGY METHOD 04/11/2025 7:[address] [facility] NRBC 0.0 <1.0 % LAB HEMETOLOGY METHOD 04/11/2025 7:[address] [facility] NRBC Absolute 0.00 <0.10 K/mcL LAB HEMETOLOGY METHOD 04/11/2025 7:[address] [facility] Neutrophils Relative 70.7 % LAB HEMETOLOGY METHOD 04/11/2025 7:[address] [facility] Lymphocytes Relative 18.2 % LAB HEMETOLOGY METHOD 04/11/2025 7:[address] [facility] Monocytes Relative 6.9 % LAB HEMETOLOGY METHOD 04/11/2025 7:[address] [facility] Eosinophils Relative 3.0 % LAB HEMETOLOGY METHOD 04/11/2025 7:[address] [facility] Basophils Relative 0.7 % LAB HEMETOLOGY METHOD 04/11/2025 7:[address] [facility] Immature Granulocytes Relative 0.5 % LAB HEMETOLOGY METHOD 04/11/2025 7:[address] [facility] Neutrophils Absolute 6.73 1.50 - 7.00 K/mcL LAB HEMETOLOGY METHOD 04/11/2025 7:[address] [facility] Lymphocytes Absolute 1.73 1.00 - 5.00 K/mcL LAB HEMETOLOGY METHOD 04/11/2025 7:[address] [facility] Monocytes Absolute 0.66 0.20 - 1.00 K/mcL LAB HEMETOLOGY METHOD 04/11/2025 7:17 AM EDT [facility] Eosinophils Absolute 0.29 0.00 - 0.50 K/[facility] LAB HEMETOLOGY METHOD 04/11/2025 7:17 AM EDT [facility] Basophils Absolute 0.07 0.00 - 0.20 K/[facility] LAB HEMETOLOGY METHOD 04/11/2025 7:17 AM EDT [facility] Immature Granulocytes Absolute 0.05(H) 0.00 - 0.03 K/[facility] LAB HEMETOLOGY METHOD 04/11/2025 7:17 AM EDT [facility] Blood Venous blood specimen / Unknown Venipuncture / Unknown 04/11/2025 6:28 AM EDT 04/11/2025 7:05 AM EDT Mela LINDO LAB BLOOD ORDERABLES Final Re sult Performing Organization Address City/[facility]/ZIP Co de Phone Number [facility] [address] [place] [address], [place] [phone] * Triglycerides (04/11/2025 6:28 AM EDT) Triglycerides 116 0 - 150 mg/dL LAB CHEMISTRY METHOD 04/11/2025 8:03 AM EDT [facility] Blood Venous blood specimen / Unknown Venipuncture / Unknown 04/11/2025 6:28 AM EDT 04/11/2025 7:05 AM EDT Denice LINDO LAB BLOOD ORDERABLES Fin al Result [facility] [address] [place] [address], [place] [phone] * Calcium, ionized (if available) (04/11/2025 6:28 AM EDT) Calcium Ionized 4.57 4.50 - 5.30 mg/dL 04/11/2025 7:17 AM EDT [facility] Blood Venous blood specimen / Unknown Venipuncture / Unknown 04/11/2025 6:28 AM EDT 04/11/2025 7:05 AM EDT Denice LINDO LAB BLOOD ORDERABLES Fin al Result Performing Organization Address [facility]/ZIP Co de Phone Number [facility] [address] [place] [address], [place] [phone] * Magnesium (04/11/2025 6:28 AM EDT) Magnesium 2.1 1.9 - 2.6 mg/dL LAB CHEMISTRY METHOD 04/11/2025 8:03 AM EDT [facility] Blood Venous blood specimen / Unknown Venipuncture / Unknown 04/11/2025 6:28 AM EDT 04/11/2025 7:05 AM EDT Denice LINDO LAB BLOOD ORDERABLES Fin al Result Performing Organization Address [facility] de Phone Number [facility] [address] [place] [address], [place] [phone] * Basic metabolic panel (04/11/2025 6:28 AM EDT) Sodium 139 133 - 145 mmol/L LAB CHEMISTRY METHOD 04/11/2025 8:05 AM EDT [facility] Potassium 4.3 3.5 - 5.5 mmol/L LAB CHEMISTRY METHOD 04/11/2025 8:05 AM EDT [facility] Chloride 107 96 - 110 mmol/L LAB CHEMISTRY METHOD 04/11/2025 8:05 AM EDT [facility] CO2 26 21 - 32 mmol/L LAB CHEMISTRY METHOD 04/11/2025 8:05 AM EDT [facility] Anion Gap 6 3 - 11 LAB CHEMISTRY METHOD 04/11/2025 8:[address] [facility] Glucose 86 70 - 100 mg/dL LAB CHEMISTRY METHOD 04/11/2025 8:[address] [facility] BUN 16 5 - 25 mg/dL LAB CHEMISTRY METHOD 04/11/2025 8:[address] [facility] Creatinine 0.50 0.50 - 1.10 mg/dL LAB CHEMISTRY METHOD 04/11/2025 8:[address] [facility] eGFR 128 >=60 mL/min/1. 73m2 LAB CHEMISTRY METHOD 04/11/2025 8:[address] [facility] Comment:Calculation based on the Chronic Kidney Disease Epidemiology Collaboration (CKD-EPI) equation refit without adjustment for race. BUN/Creatinine Ratio 32.0 LAB CHEMISTRY METHOD 04/11/2025 8:[address] [facility] Calcium 8.6 8.5 - 10.5 mg/dL LAB CHEMISTRY METHOD 04/11/2025 8:[address] [facility] Blood Venous blood specimen / Unknown Venipuncture / Unknown 04/11/2025 6:28 AM EDT 04/11/2025 7:05 AM EDT Denice LINDO LAB BLOOD ORDERABLES Fin al Result [facility] [address] [place] [address], * Phosphorus (04/11/2025 6:28 AM EDT) Phosphorus 2.9 2.5 - 4.5 mg/dL LAB CHEMISTRY METHOD 04/11/2025 8:03 AM T [facility] Blood Venous blood specimen / Unknown Venipuncture / Unknown 04/11/2025 6:28 AM EDT 04/11/2025 7:05 AM EDT us Kenny LINDO LAB BLOOD ORDERABLES Final Resul t Performing Organization Address City/[facility]/ZIP Co de Phone Number [facility] [address] [place] [address], [place] [phone] * POCT Glucose, blood (04/10/2025 6:38 PM EDT) Glucose POCT 77 70 - 100 mg/dL 04/10/2025 6:39 PM EDT [facility] Blood Capillary blood specimen / Unknown 04/10/2025 6:38 PM EDT 04/10/2025 6:40 PM EDT us Mello Rome DO LAB POINT OF CARE TE ST DOCKED DEVICE UNSOLICITED RESULTS Final Result Performing Organization Address [facility]/ZIP Co de Phone Number [facility] [address] [place] [address], [place] [phone] * XR UGI w Single Contrast (04/10/2025 9:54 AM EDT) Anatomical Region Laterality Modality Body Radiographic Abbie ging 04/10/2025 10:4 4 AM EDT Impressions 04/10/2025 11:06 AM EDT 1. Mild narrowing at the gastric-gastric anastomosis, a significant improvement when compared to prior imaging from February 23, 2025. 2. No evidence of contrast leak, extravasation or obstruction 3. Gastroesophageal reflux. -------- FINAL REPORT -------- Dictated By: Willow Oliver Dictated Date: 04/10/2025 10:44 ET Assigned Physician: Emile Vasquez Reviewed and Electronically Signed By: Emile Vasquez Signed Date: 04/10/2025 11:06 ET Workstation ID: [id number] Transcribed By: Self Edit Transcribed Date: 04/10/2025 10:52 ET Resident/PA/AUTOMOBILE SALES CONSULTANT: Willow Oliver Narrative 04/10/2025 11:06 AM EDT FINDINGS: Single contrast UGI performed. COMPARISON: Upper GI imaging February 26, 2025 HISTORY: Patient is a 34-year-old female with history of gastric bypass with reversal. Gastric-gastric anastomosis complicated by stricture. Approximately 18 days postop correction of an anastomotic stricture. CAR DETAILER radiographs: Sales Superintendent AP radiograph of the abdomen obtained. Bowel gas pattern is nonobstructive. Visualized lung bases are clear. There are multiple surgical suture chains noted along the left upper and mid abdomen. Cholecystectomy clips are present. Osseous structures are unremarkable. FINDINGS: Water-soluble Isovue 300 was given to the patient in AP, RPO, LPO and right and left lateral positions under fluoroscopic control. Gastric anatomy is consistent with multiple surgeries. Gastric-gastric anastomosis is well-visualized with free flow of contrast past this area. Mild narrowing at the anastomosis remains, however this is significantly improved when compared to prior imaging from February 26, 2025. Visualization of proximal small bowel is within normal limits. Small amounts of spontaneous gastroesophageal reflux are visualized. There is no evidence of contrast leak or extravasation. There is no obstruction. DAP: 6.76 Gycm^2 Procedure Note Emile Vasquez MD - 04/10/2025 FINDINGS: Single contrast UGI performed. COMPARISON: Upper GI imaging February 26, 2025 HISTORY: Patient is a 34-year-old female with history of gastric bypasswith reversal. Gastric-gastric anastomosis complicated by stricture.Approximately 18 days postop correction of an anastomotic stricture. CAR DETAILER radiographs: Sales Superintendent AP radiograph of the abdomen obtained. Bowel gaspattern is nonobstructive. Visualized lung bases are clear. There aremultiple surgical suture chains noted along the left upper and midabdomen. Cholecystectomy clips are present. Osseous structures areunremarkable. FINDINGS: Water-soluble Isovue 300 was given to the patient in AP, RPO,LPO and right and left lateral positions under fluoroscopic control. Gastric anatomy is consistent with multiple surgeries. Gastric- gastricanastomosis is well-visualized with free flow of contrast past this area.Mild narrowing at the anastomosis remains, however this is significantlyimproved when compared to prior imaging from February 26, 2025.Visualization of proximal small bowel is within normal limits. Smallamounts of spontaneous gastroesophageal reflux are visualized. There is noevidence of contrast leak or extravasation. There is no obstruction. DAP: 6.76 Gycm^2 IMPRESSION: 1. Mild narrowing at the gastric-gastric anastomosis, a significantimprovement when compared to prior imaging from February 23, 2025. 2. No evidence of contrast leak, extravasation or obstruction 3. Gastroesophageal reflux. -------- FINAL REPORT -------- Dictated By: Willow Oliver Dictated Date: 04/10/2025 10:44 ET Assigned Physician: Emile Vasquez Reviewed and Electronically Signed By: Emile Vasquez Signed Date: 04/10/2025 11:06 ET Workstation ID: [id number] Transcribed By: Self Edit Transcribed Date: 04/10/2025 10:52 ET Resident/PA/AUTOMOBILE SALES CONSULTANT: Willow Oliver us Mela LINDO IMG FLUOROSCOPY PROCEDURES Fi nal Result * Phosphorus (04/10/2025 4:23 AM EDT) Phosphorus 4.0 2.5 - 4.5 mg/dL LAB CHEMISTRY METHOD 04/10/2025 11:43 AM EDT [facility] Blood Venous blood specimen / Unknown Venipuncture / Unknown 04/10/2025 4:23 AM EDT 04/10/2025 5:26 AM EDT Mela LINDO LAB BLOOD ORDERABLES Final Re sult [facility] [address] [place] [address], [place] [phone] * Magnesium (04/10/2025 4:23 AM EDT) Magnesium 2.0 1.9 - 2.6 mg/dL LAB CHEMISTRY METHOD 04/10/2025 11:43 AM EDT [facility] Blood Venous blood specimen / Unknown Venipuncture / Unknown 04/10/2025 4:23 AM EDT 04/10/2025 5:26 AM EDT Mela LINDO LAB BLOOD ORDERABLES Final Re sult [facility] [facility] [address] [place] [address], * (ABNORMAL) CBC auto differential (04/10/2025 4:23 AM EDT) WBC 9.5 4.8 - 10.8 K/mcL LAB HEMETOLOGY METHOD 04/10/2025 5:45 AM EDT [facility] RBC 3.00(L) 3.80 - 4.80 M/mcL LAB HEMETOLOGY METHOD 04/10/2025 5:45 AM EDT [facility] Hemoglobin 9.4(L) 11.5 - 16.0 g/dL LAB [facility]EMETOLOG[facility] Hematocrit 29.6(L) 35.0 - 47.0 % LAB HEMETOLOGY METHOD 04/10/2025 5:45 AM EDT [facility] MCV 97.7 79.0 - 98.0 FL LAB HEMETOLOGY METHOD 04/10/2025 5:45 AM EDT [facility] MCH 31.0 27.0 - 32.0 pcg LAB HEMETOLOGY METHOD 04/10/2025 5:45 AM EDT [facility] MCHC 31.8(L) 32.0 - 37.0 g/dL LAB HEMETOLOGY METHOD 04/10/2025 5:45 AM EDT [facility] RDW 15.9(H) 11.0 - 15.0 % LAB HEMETOLOGY METHOD 04/10/2025 5:[facility] Platelets 403(H) 130 - 400 K/mcL LAB HEMETOLOGY METHOD 04/10/2025 5:45 AM EDT [facility] MPV 8.9 7.0 - 11.0 FL LAB HEMETOLOGY METHOD 04/10/2025 5:[address] [facility] NRBC 0.0 <1.0 % LAB HEMETOLOGY METHOD 04/10/2025 5:[address] [facility] NRBC Absolute 0.00 <0.10 K/mcL LAB HEMETOLOGY METHOD 04/10/2025 5:[address] [facility] Neutrophils Relative 60.5 % LAB HEMETOLOGY METHOD 04/10/2025 5:[address] [facility] Lymphocytes Relative 30.3 % LAB HEMETOLOGY METHOD 04/10/2025 5:[address] [facility] Monocytes Relative 5.4 % LAB HEMETOLOGY METHOD 04/10/2025 5:[address] [facility] Eosinophils Relative 2.3 % LAB HEMETOLOGY METHOD 04/10/2025 5:[address] [facility] Basophils Relative 0.8 % LAB HEMETOLOGY METHOD 04/10/2025 5:[address] [facility] Immature Granulocytes Relative 0.7 % LAB HEMETOLOGY METHOD 04/10/2025 5:[address] [facility] Neutrophils Absolute 5.76 1.50 - 7.00 K/mcL LAB HEMETOLOGY METHOD 04/10/2025 5:[address] [facility] Lymphocytes Absolute 2.88 1.00 - 5.00 K/mcL LAB HEMETOLOGY METHOD 04/10/2025 5:[address] [facility] Monocytes Absolute 0.51 0.20 - 1.00 K/mcL LAB HEMETOLOGY METHOD 04/10/2025 5:[address] [facility] Eosinophils Absolute 0.22 0.00 - 0.50 K/mcL LAB HEMETOLOGY METHOD 04/10/2025 5:[address] [facility] Basophils Absolute 0.08 0.00 - 0.20 K/mcL LAB HEMETOLOGY METHOD 04/10/2025 5:45 AM T [facility] Immature Granulocytes Absolute 0.07(H) 0.00 - 0.03 K/[facility] LAB HEMETOLOGY METHOD 04/10/2025 5:45 AM T [facility] Blood Venous blood specimen / Unknown Venipuncture / Unknown 04/10/2025 4:23 AM EDT 04/10/2025 5:26 AM EDT us Ramya LINDO LAB BLOOD ORDERABLES Final Re sult [facility] [address] [place] [address], [place] [phone] * (ABNORMAL) Comprehensive metabolic panel (04/10/2025 4:23 AM EDT) Sodium 138 133 - 145 mmol/L LAB CHEMISTRY METHOD 04/10/2025 5:[address] [facility] Potassium 4.0 3.5 - 5.5 mmol/L LAB CHEMISTRY METHOD 04/10/2025 5:[address] [facility] Chloride 105 96 - 110 mmol/L LAB CHEMISTRY METHOD 04/10/2025 5:[address] [facility] CO2 25 21 - 32 mmol/L LAB CHEMISTRY METHOD 04/10/2025 5:[address] [facility] Anion Gap 8 3 - 11 LAB CHEMISTRY METHOD 04/10/2025 5:[address] [facility] Glucose 86 70 - 100 mg/dL LAB CHEMISTRY METHOD 04/10/2025 5:[address] [facility] BUN 9 5 - 25 mg/dL LAB CHEMISTRY METHOD 04/10/2025 5:[address] [facility] Creatinine 0.50 0.50 - 1.10 mg/dL LAB CHEMISTRY METHOD 04/10/2025 5:[address] [facility] eGFR 128 >=60 mL/min/1. 73m2 LAB CHEMISTRY METHOD 04/10/2025 5:[address] [facility] Comment:Calculation based on the Chronic Kidney Disease Epidemiology Collaboration (CKD-EPI) equation refit without adjustment for race. BUN/Creatinine Ratio 18.0 LAB CHEMISTRY METHOD 04/10/2025 5:[address] [facility] Calcium 8.8 8.5 - 10.5 mg/dL LAB CHEMISTRY METHOD 04/10/2025 5:[address] [facility] AST (SGOT) 12 10 - 42 unit/L LAB CHEMISTRY METHOD 04/10/2025 5:[address] [facility] ALT (SGPT) 24 10 - 60 unit/L LAB CHEMISTRY METHOD 04/10/2025 5:[address] [facility] Alkaline Phosphatase 115 42 - 121 unit/L LAB CHEMISTRY METHOD 04/10/2025 5:[address] [facility] Total Protein 6.3 6.0 - 8.0 g/dL LAB CHEMISTRY METHOD 04/10/2025 5:[address] [facility] Albumin 2.7(L) 3.2 - 5.0 g/dL LAB CHEMISTRY METHOD 04/10/2025 5:[address] [facility] Total Bilirubin 0.3 0.0 - 1.4 mg/dL LAB CHEMISTRY METHOD 04/10/2025 5:[address] [facility] Blood Venous blood specimen / Unknown Venipuncture / Unknown 04/10/2025 4:23 AM EDT 04/10/2025 5:26 AM EDT us Ramya LINDO LAB BLOOD ORDERABLES Final Re sult [facility] [address] [place] [address], [place] [phone] * CT Abdomen Pelvis w Contrast (04/09/2025 10:47 PM EDT) Anatomical Region Laterality Modality Body Computed Tomogra phy 04/09/2025 11:5 8 PM EDT Impressions 04/09/2025 11:58 PM EDT 1. Soft tissue wound is noted involving the right anterior abdominal wall. Subcutaneous gas bubbles are noted within the anterior abdominal wall. This might be related to postprocedural changes. Infection is not excluded. Previously noted fluid in the subcutaneous tissues of the right anterior abdominal wall has decreased in size, without complete resolution. Please see above for details. 2. Postsurgical changes are again noted involving the stomach. Adjacent stranding/haziness is again noted which does not appear to be significantly changed and might be postoperative in nature. 3. Additional findings are detailed above. This document has been electronically signed by: Avery Santamaria M.D. on 04/09/2025 23:58:45 Narrative 04/09/2025 11:58 PM EDT INDICATION: post op abscess CT ABDOMEN AND PELVIS WITH CONTRAST COMPARISON: 03/28/2025. FINDINGS: Soft tissue wound is noted involving the right anterior abdominal wall, for example seen on coronal image 5 and axial image 85. Subcutaneous gas bubbles are noted within the anterior abdominal wall. The previously noted fluid in the subcutaneous tissues of the right anterior abdominal wall has decreased in size, without complete resolution. Small amount of fluid remains in the subcutaneous tissues of the right anterior abdominal wall, estimated to measure 1.5 x 0.2 cm on sagittal image 62. Postsurgical changes are again noted involving the stomach. Adjacent stranding/haziness is again noted which does not appear to be significantly changed and might be postoperative in nature. Post cholecystectomy changes are again noted, along with postoperative changes involving small bowel. No evidence of a bowel obstruction or free air. Portions of the colon are underdistended which limits assessment. Appendix is visualized and there is no evidence of acute appendicitis. Some contrast material is noted within the cecum. The lung bases are unremarkable. Focal fatty infiltration is noted adjacent to the falciform ligament of the liver. Small area of low attenuation is noted in the left hepatic lobe on axial image 63 which is too small to characterize but might be related to postoperative change/fluid. No CT evidence of acute pancreatitis. Spleen, adrenal glands, and both kidneys demonstrate no acute abnormalities. No hydronephrosis or obstructing stone. Urinary bladder is unremarkable. Abdominal aorta is normal in caliber, without evidence of an aneurysm or dissection. Bilateral ovarian follicles are noted, for example measuring 1.5 cm in the left ovary on axial image 129. Uterus and adnexa are otherwise grossly unremarkable. No evidence of a bowel containing hernia. The bone windows demonstrate no acute abnormalities. Procedure Note Avery Santamaria MD - 04/09/2025 INDICATION: post op abscess CT ABDOMEN AND PELVIS WITH CONTRAST COMPARISON: 03/28/2025. FINDINGS: Soft tissue wound is noted involving the right anterior abdominal wall, for example seen on coronal image 5 and axial image 85. Subcutaneous gas bubbles are noted within the anterior abdominal wall.The previously noted fluid in the subcutaneous tissues of the right anterior abdominal wall has decreased in size, without complete resolution. Small amount of fluid remains in the subcutaneous tissues of the rightanterior abdominal wall, estimated to measure 1.5 x 0.2 cm on sagittal image 62. Postsurgical changes are again noted involving the stomach. Adjacent stranding/haziness is again noted which does not appear to be significantly changed and might be postoperative in nature. Post cholecystectomy changes are again noted, along with postoperativechanges involving small bowel. No evidence of a bowel obstruction or free air. Portions of the colon are underdistended which limits assessment.Appendix is visualized and there is no evidence of acute appendicitis. Some contrast material is noted within the cecum. The lung bases are unremarkable. Focal fatty infiltration is noted adjacent to the falciform ligament of the liver. Small area of low attenuation is noted in the left hepatic lobe on axial image 63 which is too small to characterize but might be related to postoperative change/fluid. No CT evidence of acute pancreatitis. Spleen, adrenal glands, and both kidneys demonstrate no acute abnormalities. No hydronephrosis or obstructing stone. Urinary bladder is unremarkable. Abdominal aorta is normal in caliber, without evidence of an aneurysm or dissection. Bilateral ovarian follicles are noted, for example measuring 1.5 cm in the left ovary on axial image 129. Uterus and adnexa are otherwise grossly unremarkable. No evidence of a bowel containinghernia. The bone windows demonstrate no acute abnormalities. IMPRESSION: 1. Soft tissue wound is noted involving the right anterior abdominalwall. Subcutaneous gas bubbles are noted within the anterior abdominal wall. This might be related to postprocedural changes. Infection is not excluded. Previously noted fluid in the subcutaneous tissues of theright anterior abdominal wall has decreased in size, without complete resolution. Please see above for details. 2. Postsurgical changes are again noted involving the stomach. Adjacent stranding/haziness is again noted which does not appear to be significantly changed and might be postoperative in nature. 3. Additional findings are detailed above. This document has been electronically signed by: Avery Santamaria M.D. on 04/09/2025 23:58:45 us Claribel LINDO IMG CT PROCEDURES Final Result * Lactate, with reflex (04/09/2025 9:59 PM EDT) [facility] LACTIC ACID 1.0 0.4 - 2.0 mmol/L LAB CHEMISTRY METHOD 04/09/2025 11:01 PM EDT [facility] Blood Venous blood specimen / Unknown Venipuncture / Unknown 04/09/2025 9:59 PM EDT 04/09/2025 10:17 PM EDT Claribel LINDO LAB BLOOD ORDERABLES Fin al Result Performing Organization Address [facility] de Phone Number [facility] [address] [place] [address], [place] [phone] * Blood culture (04/09/2025 9:59 PM EDT) Pathologist [facility] Culture, Blood No growth at 5 days LAB MICROBIOLOGY METHOD 04/14/2025 11:01 PM EDT [facility] Blood Venous blood specimen / Unknown Venipuncture / Unknown 04/09/2025 9:59 PM EDT 04/09/2025 10:16 PM EDT us Claribel LINDO LAB MICROBIOLOGY - GENER AL ORDERABLES Final Result Performing Organization Address [facility]/ZIP Co de Phone Number [facility] [address] [place] [address], [place] [phone] * Blood culture (04/09/2025 9:59 PM EDT) [facility] Culture, Blood No growth at 5 days LAB MICROBIOLOGY METHOD 04/14/2025 11:01 PM EDT [facility] Blood Venous blood specimen / Unknown Venipuncture / Unknown 04/09/2025 9:59 PM EDT 04/09/2025 10:16 PM EDT Claribel LINDO LAB MICROBIOLOGY - GENER AL ORDERABLES Final Result [facility] [address] [place] [address], [place] [phone] * (ABNORMAL) CBC auto differential (04/09/2025 9:59 PM EDT) [facility] WBC 12.8(H) 4.8 - 10.8 K/mcL LAB HEMETOLOGY METHOD 04/09/2025 10:26 PM EDT [facility] RBC 3.50(L) 3.80 - 4.80 M/mcL LAB HEMETOLOGY METHOD 04/09/2025 10:26 PM EDT [facility] Hemoglobin 10.9(L) 11.5 - 16.0 g/dL LAB HEMETOLOGY METHOD 04/09/2025 10:26 PM EDT [facility] Hematocrit 34.0(L) 35.0 - 47.0 % LAB HEMETOLOGY METHOD 04/09/2025 10:26 PM EDT [facility] MCV 97.4 79.0 - 98.0 FL LAB HEMETOLOGY METHOD 04/09/2025 10:26 PM EDT [facility] MCH 31.2 27.0 - 32.0 pcg LAB HEMETOLOGY METHOD 04/09/2025 10:26 PM EDT [facility] MCHC 32.1 32.0 - 37.0 g/dL LAB HEMETOLOGY METHOD 04/09/2025 10:[address] [facility] RDW 15.9(H) 11.0 - 15.0 % LAB HEMETOLOGY METHOD 04/09/2025 10:[address] [facility] Platelets 494(H) 130 - 400 K/mcL LAB HEMETOLOGY METHOD [facility] MPV 8.8 7.0 - 11.0 FL LAB HEMETOLOGY METHOD 04/09/2025 10:[address] [facility] NRBC 0.0 <1.0 % LAB HEMETOLOGY METHOD 04/09/2025 10:[address] [facility] NRBC Absolute 0.00 <0.10 K/mcL LAB HEMETOLOGY METHOD 04/09/2025 10:[address] [facility] Neutrophils Relative 72.6 % LAB HEMETOLOGY METHOD 04/09/2025 10:[address] [facility] Lymphocytes Relative 20.5 % LAB HEMETOLOGY METHOD 04/09/2025 10:[address] [facility] Monocytes Relative 4.1 % LAB HEMETOLOGY METHOD 04/09/2025 10:[address] [facility] Eosinophils Relative 1.3 % LAB HEMETOLOGY METHOD 04/09/2025 10:[address] [facility] Basophils Relative 0.6 % LAB HEMETOLOGY METHOD 04/09/2025 10:[address] [facility] Immature Granulocytes Relative 0.9 % LAB HEMETOLOGY METHOD 04/09/2025 10:[address] [facility] Neutrophils Absolute 9.30(H) 1.50 - 7.00 K/mcL LAB HEMETOLOGY METHOD 04/09/2025 10:26 PM EDT [facility] Lymphocytes Absolute 2.63 1.00 - 5.00 K/mcL LAB HEMETOLOGY METHOD 04/09/2025 10:26 PM EDT [facility] Monocytes Absolute 0.52 0.20 - 1.00 K/mcL LAB HEMETOLOGY METHOD 04/09/2025 10:26 PM EDT [facility] Eosinophils Absolute 0.17 0.00 - 0.50 K/[facility] HEMETOLOGY METHOD 04/09/2025 10:26 PM EDT [facility] Basophils Absolute 0.08 0.00 - 0.20 K/[facility] LAB HEMETOLOGY METHOD 04/09/2025 10:26 PM EDT [facility] Immature Granulocytes Absolute 0.11(H) 0.00 - 0.03 K/[facility] LAB HEMETOLOGY METHOD 04/09/2025 10:26 PM EDT [facility] Blood Venous blood specimen / Unknown Venipuncture / Unknown 04/09/2025 9:59 PM EDT 04/09/2025 10:17 PM EDT us Mello Rome DO LAB BLOOD ORDERABLES Final Res ult [facility] [address] [place] [address], * Magnesium (04/09/2025 9:59 PM EDT) Magnesium 2.0 1.9 - 2.6 mg/dL LAB CHEMISTRY METHOD 04/09/2025 10:39 PM EDT [facility] Blood Venous blood specimen / Unknown Venipuncture / Unknown 04/09/2025 9:59 PM EDT 04/09/2025 10:17 PM EDT us Mello Rome DO LAB BLOOD ORDERABLES Final Res ult [facility] [address] [place] [address], * Basic metabolic panel (04/09/2025 9:59 PM EDT) Sodium 136 133 - 145 mmol/L LAB CHEMISTRY METHOD [facility] Potassium 4.1 3.5 - 5.5 mmol/L LAB CHEMISTRY METHOD 04/09/2025 10:[address] [facility] Chloride 104 96 - 110 mmol/L LAB CHEMISTRY METHOD 04/09/2025 10:[address] [facility] CO2 24 21 - 32 mmol/L LAB CHEMISTRY METHOD 04/09/2025 10:[address] [facility] Anion Gap 8 3 - 11 LAB CHEMISTRY METHOD 04/09/2025 10:[address] [facility] Glucose 88 70 - 100 mg/dL LAB CHEMISTRY METHOD 04/09/2025 10:[address] [facility] BUN 11 5 - 25 mg/dL LAB CHEMISTRY METHOD 04/09/2025 10:[address] [facility] Creatinine 0.54 0.50 - 1.10 mg/dL LAB CHEMISTRY METHOD 04/09/2025 10:[address] [facility] eGFR 126 >=60 mL/min/1. 73m2 LAB CHEMISTRY METHOD 04/09/2025 10:[address] [facility] Comment:Calculation based on the Chronic Kidney Disease Epidemiology Collaboration (CKD-EPI) equation refit without adjustment for race. BUN/Creatinine Ratio 20.4 LAB CHEMISTRY METHOD 04/09/2025 10:[address] [facility] Calcium 9.3 8.5 - 10.5 mg/dL LAB CHEMISTRY METHOD 04/09/2025 10:[address] [facility] Blood Venous blood specimen / Unknown Venipuncture / Unknown 04/09/2025 9:59 PM EDT 04/09/2025 10:17 PM EDT Mello Rome DO LAB BLOOD ORDERABLES Final Res ult Performing Organization Address [facility]/ZIP Co de Phone Number [facility] [address] [place] [address], [place] [phone] * hCG, serum, qualitative (04/07/2025 9:30 PM EDT) hCG Qual Negative Negative 04/09/2025 9:19 PM EDT [facility] Blood Venous blood specimen / Unknown Venipuncture / Unknown 04/07/2025 9:30 PM EDT 04/07/2025 9:36 PM EDT Claribel LINDO LAB BLOOD ORDERABLES Fin al Result Performing Organization Address [facility] de Phone Number [facility] [address] [place] [address], [place] [phone] documented in this encounter Visit Diagnoses Diagnosis Wound infection after surgery- Primary Post-operative wound abscess Diarrhea, unspecified type Bariatric surgery status Epigastric pain Abdominal pain, epigastric Wound infection after surgery documented in this encounter Admitting Diagnoses Diagnosis Wound infection after surgery documented in this encounter Administered Medications Inactive Administered Medications - up to 3 most recent administrations Medication Order MAR Action Action Date Dose Rate Site Adult Cyclic 3-in-1 TPN Central Line intravenous, at 57-115 mL/hr, Administer over 13 Hours, Cyclic TPN, Starting on Wed04/10/25 at 2100, For 24 hours, Administer through 1.2 micron filter tubing. Start rate at 57 mL/hr for 1 hours. Increase rate to 115 mL/hr for 11 hours. Decrease rate to 57 mL/hr for 1 hours, then stop. , Indication: Other, Explanatory Comment: limited PO tolerance Rate/Dose Change 04/11/2025 9:27 AM EDT 57 mL/ hr Rate/Dose Change 04/10/2025 10:34 PM EDT 115 mL /hr New Bag 04/10/2025 9:27 PM EDT 57 mL/hr Adult Cyclic 3-in-1 TPN Central Line intravenous, at 57-115 mL/hr, Administer over 13 Hours, Cyclic TPN, Starting on Wed04/11/25 at 2100, For 24 hours, Administer through 1.2 micron filter tubing. Start rate at 57 mL/hr for 1 hours. Increase rate to 115 mL/hr for 11 hours. Decrease rate to 57 mL/hr for 1 hours, then stop. , Indication: Other, Explanatory Comment: limited PO tolerance Rate/Dose Change 04/12/2025 9:42 AM EDT 57 mL/hr Rate/Dose Change 04/11/2025 10:42 PM EDT 115 mL /hr New Bag 04/11/2025 9:42 PM EDT 57 mL/hr Adult Cyclic 3-in-1 TPN Central Line intravenous, at 63-125 mL/hr, Administer over 12 Hours, Cyclic TPN, Starting on Edyta 04/12/25 at 2100, For 24 hours, Administer through 1.2 micron filter tubing. Start rate at 63 mL/hr for 1 hours. Increase rate to 125 mL/hr for 10 hours. Decrease rate to 63 mL/hr for 1 hours, then stop. , Indication: Other, Explanatory Comment: limited PO Rate/Dose Change 04/13/2025 8:00 AM EDT 63 mL/hr Rate/Dose Change 04/12/2025 9:59 PM EDT 125 mL/ hr New Bag 04/12/2025 9:02 PM EDT 63 mL/hr ARIPiprazole (ABILIFY) tablet 2.5 mg 2.5 mg, oral, Nightly, First dose on Wed04/10/25 at 0152 Given 04/12/2025 9:01 PM EDT 2.5 mg Given 04/11/2025 8:38 PM EDT 2.5 mg Given 04/10/2025 9:31 PM EDT 2.5 mg ceFAZolin (ANCEF) 2 g in sterile water 20 mL IV syringe 2 g, intravenous, Administer over 3 Minutes, Once, On 04/09/25 at 2102, For 1 dose, Indication: Intra-abdominal Given 04/09/2025 11:14 PM EDT 2 g cefTRIAXone (ROCEPHIN) 1 g in sterile water 10 mL IV syringe 1 g, intravenous, Administer over 3 Minutes, Every 24 hours, First dose on Wed04/10/25 at 0200, For 7 days, Do not administer simultaneously with any calcium containing solutions via a Y-site in any patient., Indication: Skin/Soft Tissue Given 04/13/2025 2:09 AM EDT 1 g Given 04/12/2025 1:37 AM EDT 1 g Given 04/11/2025 2:16 AM EDT 1 g clonazePAM (KlonoPIN) tablet 0.5 mg 0.5 mg, oral, Daily, First dose on Wed04/10/25 at 0900, Hazardous Medication Intact: - Single pair of ASTM standard [id number] certified gloves - Eye/face protection if vomit or potential to spit up Manipulated: - Double pair of ASTM standard [id number] certified gloves - Eye/face protection if vomit or potential to spit up - Staff at reproductive risk must also wear a hazardous gown - Crushing must be performed in sealed closed pouch - Splitting/cutting should be performed by pharmacy, if possible Given 04/13/2025 9:24 AM EDT 0.5 mg Given 04/12/2025 8:43 AM EDT 0.5 mg Given 04/11/2025 9:27 AM EDT 0.5 mg escitalopram (LEXAPRO) tablet 20 mg 20 mg, oral, Daily, First dose on Wed04/10/25 at 0900 Given 04/13/2025 9:24 AM EDT 20 mg Given 04/12/2025 8:43 AM EDT 20 mg Given 04/11/2025 9:26 AM EDT 20 mg HYDROmorphone (DILAUDID) injection 1 mg 1 mg, intravenous, Once, On Wed04/09/25 at 2132, For 1 dose Given 04/09/2025 10:25 PM EDT 1 mg HYDROmorphone (DILAUDID) injection 1 mg 1 mg, intravenous, Once, On Wed04/10/25 at 0048, For 1 dose Given 04/10/2025 1:03 AM EDT 1 mg HYDROmorphone (DILAUDID) tablet 2 mg 2 mg, oral, Every 4 hours PRN, severe pain, moderate pain, Starting on Wed04/10/25 at 0144 Given for Pain 04/10/2025 5:12 PM EDT 2 mg Given 04/10/2025 4:37 AM EDT 2 mg HYDROmorphone (DILAUDID) tablet 4 mg 4 mg, oral, Every 4 hours PRN, severe pain, Starting on Wed04/10/25 at 0145 Given 04/13/2025 9:24 AM EDT 4 mg Given 04/13/2025 5:36 AM EDT 4 mg Given 04/12/2025 9:07 PM EDT 4 mg iopamidoL (ISOVUE-300) 300 mg iodine /mL (61 %) solution 100 mL 100 mL, oral, Once in imaging, Starting on Wed04/10/25 at 0954, For 1 dose Given 04/10/2025 9:54 AM EDT 100 mL iopamidoL (ISOVUE-370) 370 mg iodine /mL (76 %) injection 90 mL 90 mL, intravenous, Once in imaging, Starting on Wed04/09/25 at 2244, For 1 dose Given 04/09/2025 10:45 PM EDT 90 mL meclizine (ANTIVERT) tablet 25 mg 25 mg, oral, 3 times daily PRN, dizziness, Starting on Wed04/10/25 at 1633 Given 04/12/2025 6:03 AM EDT 25 mg Given 04/11/2025 4:08 PM EDT 25 mg Given 04/11/2025 9:27 AM EDT 25 mg metoclopramide (REGLAN) injection 10 mg 10 mg, intravenous, Once, On Wed04/09/25 at 2339, For 1 dose, Doses LESS than or equal to 10 mg can be given IV push undiluted over 1 minute Given 04/10/2025 12:38 AM EDT 10 mg metoclopramide (REGLAN) injection 10 mg 10 mg, intravenous, Every 6 hours PRN, nausea, vomiting, Starting on Wed04/10/25 at 0149, 2nd Line Option: -ONLY give IV if patient is unable to take orally. Give for persistent nausea following Zofran if ineffective within 45 minutes Doses LESS than or equal to 10 mg can be given IV push undiluted over 1 minute Given 04/13/2025 5:39 AM EDT 10 mg Given 04/12/2025 9:08 PM EDT 10 mg Given 04/12/2025 8:59 AM EDT 10 mg metoclopramide (REGLAN) tablet 10 mg 10 mg, oral, Every 6 hours PRN, nausea, vomiting, Starting on Wed04/10/25 at 0149, 2nd Line Option: -Give IV if patient is unable to take orally. Give for persistent nausea following Zofran if ineffective within 45 minutes Given 04/11/2025 8:38 PM EDT 10 mg Given 04/11/2025 9:26 AM EDT 10 mg Given 04/10/2025 9:32 PM EDT 10 mg metoprolol succinate (TOPROL-XL) 24 Hour tablet 25 mg 25 mg, oral, Daily, First dose on Wed04/10/25 at 0900, Do not crush or chew. Given 04/12/2025 8:43 AM EDT 25 mg Given 04/10/2025 8:59 AM EDT 25 mg metroNIDAZOLE (FLAGYL) IVPB 500 mg 500 mg, intravenous, at 100 mL/hr, Administer over 60 Minutes, Every 12 hours, First dose on Wed04/10/25 at 0200, For 7 days, premix bag, Indication: Skin/Soft Tissue New Bag 04/13/2025 2:02 PM EDT 500 mg 10 0 mL/hr New Bag 04/13/2025 2:09 AM EDT 500 mg 100 mL/hr New Bag 04/12/2025 1:20 PM EDT 500 mg 100 mL/hr mirtazapine (REMERON) tablet 7.5 mg 7.5 mg, oral, Nightly, First dose on Wed04/10/25 at 0152 Given 04/12/2025 9:01 PM EDT 7.5 mg Given 04/11/2025 8:38 PM EDT 7.5 mg Given 04/10/2025 9:31 PM EDT 7.5 mg ondansetron (PF) (ZOFRAN) injection 4 mg 4 mg, intravenous, Once, On Wed04/09/25 at 2145, For 1 dose Given 04/09/2025 10:22 PM EDT 4 mg ondansetron (PF) (ZOFRAN) injection 4 mg 4 mg, intravenous, Every 8 hours PRN, vomiting, nausea, Starting on Wed04/10/25 at 0206, -ONLY give IV if patient is unable to take orally. -If inadequate response within 30 minutes, proceed to next-line agent or contact provider if no further options ordered. Given for Pain 04/10/2025 5:12 PM EDT 4 mg ondansetron ODT (ZOFRAN-ODT) disintegrating tablet 4 mg 4 mg, oral, Every 8 hours PRN, vomiting, nausea, Starting on Wed04/10/25 at 0206, -Give IV if patient is unable to take orally. -If inadequate response within 30 minutes, proceed to next-line agent or contact provider if no further options ordered. For ODT tablets: -Do not remove from blister pack until just before administering. -Patient should allow tablet to dissolve on tongue. Given 04/12/2025 3:03 PM EDT 4 mg Given 04/12/2025 2:52 AM EDT 4 mg Given 04/11/2025 2:08 PM EDT 4 mg pantoprazole (PROTONIX) EC tablet 40 mg 40 mg, oral, Every morning before breakfast, First dose on Wed04/10/25 at 0700, Do not crush, chew, or split. Given 04/13/2025 5:37 AM EDT 40 mg Given 04/12/2025 6:03 AM EDT 40 mg Given 04/11/2025 6:54 AM EDT 40 mg simethicone (MYLICON) chewable tablet 80 mg 80 mg, oral, 4 times daily PRN, flatulence, gas pain, Starting on Edyta 04/12/25 at 1714 Given 04/13/2025 6:50 AM EDT 80 mg Given 04/12/2025 9:19 PM EDT 80 mg sodium chloride 0.9 % bolus 1,000 mL 1,000 mL, intravenous, at 1,000 mL/hr, Administer over 1 Hours, Once, On Wed04/09/25 at 2137, For 1 dose Restarted 04/09/2025 11:24 PM EDT 1000 mL/hr New Bag 04/09/2025 10:21 PM EDT 1,000 mL 1000 mL/hr sodium chloride 0.9 % flush 10 mL 10 mL, intravenous, Once, On Wed04/09/25 at 2245, For 1 dose Given 04/09/2025 10:46 PM EDT 10 mL sodium phosphate (FLEET) enema 133 mL 133 mL, rectal, Once, On Edyta 04/12/25 at 0915, For 1 dose Given 04/12/2025 9:00 AM EDT 133 mL vancomycin (VANCOCIN) 1,000 mg in sodium chloride 0.9 % 250 mL IVPB 1,000 mg (rounded from 1,018.8 mg = 12 mg/kg 84.9 kg), intravenous, at 250 mL/hr, Administer over 60 Minutes, Every 12 hours, First dose on Wed04/13/25 at 2100, For 5 days, Indication: Skin/Soft Tissue vancomycin (VANCOCIN) IVPB 1,250 mg in 0.9 % sodium chloride 250 mL - CNR 1,250 mg, intravenous, at 166.7 mL/hr, Administer over 90 Minutes, Every 12 hours, First dose on Wed04/10/25 at 1500, For 7 days, Indication: Skin/Soft Tissue, Other, Specify: see note - ongoing infection New Bag 04/11/2025 3:41 AM EDT 1,250 mg 166.7 mL/hr New Bag 04/10/2025 3:01 PM EDT 1,250 mg 166.7 mL/hr vancomycin (VANCOCIN) IVPB 1,500 mg in 0.9 % sodium chloride 500 mL - CNR 1,500 mg, intravenous, at 333.3 mL/hr, Administer over 90 Minutes, Every 12 hours, First dose (after last modification) on Wed04/11/25 at 1500, For 12 doses, Indication: Skin/Soft Tissue, Other, Specify: see note - ongoing infection, On hold since Wed04/13/2025 at 0352 until manually unheld New Bag 04/12/2025 2:57 PM EDT 1,500 mg 333. 3 mL/hr New Bag 04/12/2025 2:53 AM EDT 1,500 mg 333.3 mL/hr New Bag 04/11/2025 4:04 PM EDT 1,500 mg 333.3 mL/hr vancomycin (VANCOCIN) IVPB 1,750 mg in 0.9 % sodium chloride 500 mL - CNR 1,750 mg (rounded from 1,770 mg = 20 mg/kg 88.5 kg), intravenous, at 250 mL/hr, Administer over 120 Minutes, Once, On Wed04/10/25 at 0230, For 1 dose, Indication: Skin/Soft Tissue, Other, Specify: see note - ongoing infection New Bag 04/10/2025 3:50 AM EDT 1,750 mg 25 0 mL/hr documented in this encounter Discontinued Medications Medication Sig Discontinue Reason Start Date End Da te ergocalciferol (VITAMIN D-2) 1,250 mcg (50,000 unit) capsule Take 1 capsule (50,000 Units total) by mouth 1 (one) time per week. 11/01/2024 04/10/2025 diclofenac (VOLTAREN) 1 % topical gel Apply 4 g topically 4 (four) times a day. 10/02/2024 04/10/2025 ondansetron (ZOFRAN) 4 mg tablet Take 1 tablet (4 mg total) by mouth every 8 (eight) hours if needed for nausea or vomiting. 03/02/2025 04/10/2025 docusate sodium (COLACE) 100 mg capsule Take 1 capsule (100 mg total) by mouth 1 (one) time each day. 04/05/2025 04/10/2025 HYDROmorphone (DILAUDID) 2 mg tabletIndications:Bar iatric surgery status,Epigastric pain Take 1 tablet (2 mg total) by mouth every 4 (four) hours if needed for severe pain. Max Daily Amount: 12 mg 04/05/2025 04/13/2025 metoclopramide (REGLAN) 10 mg tablet Take 1 tablet (10 mg total) by mouth 4 (four) times a day (before meals and nightly). Stop Taking at Discharge 03/05/2025 04/13/2025 documented as of this encounter Active and Recently Administered Medications Times are shown in EDT. Scheduled Medication Order 04/11/2025 04/12/2025 04/13/2025 ARIPiprazole (ABILIFY) tablet 2.5 mg 2.5 mg, oral, Nightly, First dose on Wed04/10/25 at 0152 2037 (Given - Provider: Michaela Perdomo RN) 2100 (Given - Provider: Viola Torres RN) cefTRIAXone (ROCEPHIN) 1 g in sterile water 10 mL IV syringe 1 g, intravenous, Administer over 3 Minutes, Every 24 hours, First dose on Wed04/10/25 at 0200, For 7 days, Do not administer simultaneously with any calcium containing solutions via a Y-site in any patient., Indication: Skin/Soft Tissue 0216 (Given - Provider: Jose Armando Chavez RN) 0137 (Given - Provider: Michaela Perdomo RN) 0209 (Given - Provider: Viola Torres, GRISELDA) clonazePAM (KlonoPIN) tablet 0.5 mg 0.5 mg, oral, Daily, First dose on Wed04/10/25 at 0900, Hazardous Medication Intact: - Single pair of ASTM standard [id number] certified gloves - Eye/face protection if vomit or potential to spit up Manipulated: - Double pair of ASTM standard D6978 certified gloves - Eye/face protection if vomit or potential to spit up - Staff at reproductive risk must also wear a hazardous gown - Crushing must be performed in sealed closed pouch - Splitting/cutting should be performed by pharmacy, if possible 0927 (Given - Provider: Zarina Quevedo RN) 0843 (Given - Provider: De Anderson RN) 0924 (Given - Provider: Marta Alvarez RN) escitalopram (LEXAPRO) tablet 20 mg 20 mg, oral, Daily, First dose on Wed04/10/25 at 0900 0926 (Given - Provider: Zarina Quevedo RN) 0843 (Given - Provider: De Anderson RN) 0924 (Given - Provider: Marta Alvarez RN) metoprolol succinate (TOPROL-XL) 24 Hour tablet 25 mg 25 mg, oral, Daily, First dose on Wed04/10/25 at 0900, Do not crush or chew. 0933 (Not Given - Provider: Zarina Quevedo RN - Reason: Order parameters not met) 0843 (Given - Provider: De Anderson RN) 0932 (Not Given - Provider: Marta Alvarez RN - Reason: Other - Comment: Bp 100/67) metroNIDAZOLE (FLAGYL) IVPB 500 mg 500 mg, intravenous, at 100 mL/hr, Administer over 60 Minutes, Every 12 hours, First dose on Wed04/10/25 at 0200, For 7 days, premix bag, Indication: Skin/Soft Tissue 0216 (New Bag - Provider: Jose Armando Chavez, RN)0316 (Stopped - Provider: Jose Armando Chavez RN)1325 (New Bag - Provider: Zarina Quevedo, RN)1425 (Stopped - Provider: Zarina Quevedo, RN) 0138 (New Bag - Provider: Michaela Perdomo, GRISELDA)0240 (Stopped - Provider: Michaela Perdomo RN)1320 (New Bag - Provider: eD Anderson, GRISELDA)1420 (Stopped - Provider: De Anderson, GRISELDA) 0209 (New Bag - Provider: Viola Torres, GRISELDA)0309 (Stopped - Provider: Viola Torres, GRISELDA - Comment: stopped)1402 (New Bag - Provider: Gena Norris RN)1516 (Stopped - Provider: Marta Alvaerz RN) mirtazapine (REMERON) tablet 7.5 mg 7.5 mg, oral, Nightly, First dose on Wed04/10/25 at 0152 2038 (Given - Provider: Michaela Perdomo, GRISELDA) 2101 (Given - Provider: Viola Torres, GRISELDA) pantoprazole (PROTONIX) EC tablet 40 mg 40 mg, oral, Every morning before breakfast, First dose on Wed04/10/25 at 0700, Do not crush, chew, or split. 0654 (Given - Provider: Jose Armando Chavez, GRISELDA) 0603 (Given - Provider: Michaela Perdomo RN) 0537 (Given - Provider: Viola Torres, GRISELDA) sodium phosphate (FLEET) enema 133 mL (COMPLETED) 133 mL, rectal, Once, On Wed04/12/25 at 0915, For 1 dose 0900 (Given - Provider: De Anderson RN) vancomycin (VANCOCIN) 1,000 mg in sodium chloride 0.9 % 250 mL IVPB 1,000 mg (rounded from 1,018.8 mg = 12 mg/kg 84.9 kg), intravenous, at 250 mL/hr, Administer over 60 Minutes, Every 12 hours, First dose on Wed04/13/25 at 2100, For 5 days, Indication: Skin/Soft Tissue vancomycin (VANCOCIN) IVPB 1,250 mg in 0.9 % sodium chloride 250 mL - CNR (CANCELED) 1,250 mg, intravenous, at 166.7 mL/hr, Administer over 90 Minutes, Every 12 hours, First dose on Wed04/10/25 at 1500, For 7 days, Indication: Skin/Soft Tissue, Other, Specify: see note - ongoing infection 0341 (New Bag - Provider: Jose Armando Chavez RN)0515 (Stopped - Provider: Jose Armando Chavez RN) vancomycin (VANCOCIN) IVPB 1,500 mg in 0.9 % sodium chloride 500 mL - CNR (CANCELED) 1,500 mg, intravenous, at 333.3 mL/hr, Administer over 90 Minutes, Every 12 hours, First dose (after last modification) on Wed04/11/25 at 1500, For 12 doses, Indication: Skin/Soft Tissue, Other, Specify: see note - ongoing infection, On hold since Wed04/13/2025 at 0352 until manually unheld 1604 (New Bag - Provider: Zarina Quevedo RN)1757 (Stopped - Provider: Gini Henry RN) 0253 (New Bag - Provider: Michaela Perdomo, GRISELDA)0454 (Stopped - Provider: Michaela Perdomo RN)1457 (New Bag - Provider: De Anderson RN)1627 (Stopped - Provider: De Anderson RN) 0330 (Not Given - Provider: Viola Torres RN - Reason: Other - Comment: vanco trough elevated; called pharmacist as well)0352 (Held by provider - Provider: GUICHO Brody - Reason: Other - Comment: Lab result)1039 (Unheld by provider - Provider: Eduardo Peacock PharmD) Continuous Medication Order 04/11/2025 04/12/2025 04/13/2025 Adult Cyclic 3-in-1 TPN Central Line () intravenous, at 57-115 mL/hr, Administer over 13 Hours, Cyclic TPN, Starting on Wed04/10/25 at 2100, For 24 hours, Administer through 1.2 micron filter tubing. Start rate at 57 mL/hr for 1 hours. Increase rate to 115 mL/hr for 11 hours. Decrease rate to 57 mL/hr for 1 hours, then stop. , Indication: Other, Explanatory Comment: limited PO tolerance 0927 (Rate/Dose Change - Provider: Zarina Quevedo, RN)1027 (Stopped - Provider: Zarina Quevedo, RN) Adult Cyclic 3-in-1 TPN Central Line () intravenous, at 57-115 mL/hr, Administer over 13 Hours, Cyclic TPN, Starting on Wed04/11/25 at 2100, For 24 hours, Administer through 1.2 micron filter tubing. Start rate at 57 mL/hr for 1 hours. Increase rate to 115 mL/hr for 11 hours. Decrease rate to 57 mL/hr for 1 hours, then stop. , Indication: Other, Explanatory Comment: limited PO tolerance 2142 (New Bag - Provider: Michaela Perdomo RN)2242 (Rate/Dose Change - Provider: Michaela Perdomo RN) 0942 (Rate/Dose Change - Provider: De Anderson RN)1042 (Stopped - Provider: De Anderson RN) Adult Cyclic 3-in-1 TPN Central Line intravenous, at 63-125 mL/hr, Administer over 12 Hours, Cyclic TPN, Starting on Edyta 04/12/25 at 2100, For 24 hours, Administer through 1.2 micron filter tubing. Start rate at 63 mL/hr for 1 hours. Increase rate to 125 mL/hr for 10 hours. Decrease rate to 63 mL/hr for 1 hours, then stop. , Indication: Other, Explanatory Comment: limited PO 210 (New Bag - Provider: Viola Torres RN)2159 (Rate/Dose Change - Provider: Viola Torres RN) 0800 (Rate/Dose Change - Provider: Marta Alvarez, GRISELDA)0919 (Stopped - Provider: Marta Alvarez RN) PRN Medication Order 04/11/2025 04/12/2025 04/13/2025 albuterol 2.5 mg /3 mL (0.083 %) nebulizer solution 2.5 mg 2.5 mg, nebulization, Every 4 hours PRN, wheezing, Starting on Wed04/10/25 at 0137 HYDROmorphone (DILAUDID) tablet 2 mg 2 mg, oral, Every 4 hours PRN, severe pain, moderate pain, Starting on Wed04/10/25 at 0144 HYDROmorphone (DILAUDID) tablet 4 mg 4 mg, oral, Every 4 hours PRN, severe pain, Starting on Wed04/10/25 at 0145 0926 (Given - Provider: Zarina Quevedo, RN)1407 (Given - Provider: Zarina Quevedo RN)2038 (Given - Provider: Michaela Perdomo RN) 0253 (Given - Provider: Michaela Perdomo RN)0847 (Given - Provider: De Anderson, GRISELDA)1503 (Given - Provider: De Anderson, GRISELDA)2107 (Given - Provider: Viloa Torres, GRISELDA) 0536 (Given - Provider: Viola Torres, GRISELDA)0924 (Given - Provider: Marta Alvarez RN) meclizine (ANTIVERT) tablet 25 mg 25 mg, oral, 3 times daily PRN, dizziness, Starting on Wed04/10/25 at 1633 0927 (Given - Provider: Zarina Quevedo RN)1608 (Given - Provider: Zarina Quevedo RN) 0603 (Given - Provider: Michaela Perdomo RN) metoclopramide (REGLAN) injection 10 mg(Linked Group 1) 10 mg, intravenous, Every 6 hours PRN, nausea, vomiting, Starting on Wed04/10/25 at 0149, 2nd Line Option: -ONLY give IV if patient is unable to take orally. Give for persistent nausea following Zofran if ineffective within 45 minutes Doses LESS than or equal to 10 mg can be given IV push undiluted over 1 minute 0926 (See Alternative - Provider: Zarina Quevedo RN)203 (See Alternative - Provider: Michaela Pedromo RN) 0852 (See Alternative - Provider: De Anderson, GRISELDA)0859 (Given - Provider: De Anderson, GRISELDA)2108 (Given - Provider: Viola Torres, GRISELDA) 0539 (Given - Provider: Viola Torres RN) metoclopramide (REGLAN) tablet 10 mg(Linked Group 1) 10 mg, oral, Every 6 hours PRN, nausea, vomiting, Starting on Wed04/10/25 at 0149, 2nd Line Option: -Give IV if patient is unable to take orally. Give for persistent nausea following Zofran if ineffective within 45 minutes 0926 (Given - Provider: Zarina Quevedo, RN)203 (Given - Provider: Michaela Perdomo, RN) 0852 (Not Given - Provider: De Anderson, GRISELDA - Reason: Other - Comment: giving iv instead)0859 (See Alternative - Provider: De Anderson, GRISELDA)2108 (See Alternative - Provider: Viola Torres, RN) 0539 (See Alternative - Provider: Viola Torres, GRISELDA) naloxone (NARCAN) injection 0.04 mg 0.04 mg, intravenous, As needed, opioid reversal, IV Push every 1 min for 10 doses, Starting on Wed04/10/25 at 0144, For 10 doses, To Dilute: -Use 0.4 mg/mL vial , withdraw 1 mL and add 9 mL NS -FOLLOWING DILUTION, dose of 0.04 mg = 1 mL For PARTIAL Opioid Reversal: -For respiratory rate LESS than 10 or [place]ero Opioid-induced Sedation Scale (POSS) equal to 4 -May be repeated at 1 minute intervals to restore adequate respirations -Administer up to 10 doses (0.4 mg) ondansetron (PF) (ZOFRAN) injection 4 mg(Linked Group 2) 4 mg, intravenous, Every 8 hours PRN, vomiting, nausea, Starting on Wed04/10/25 at 0206, -ONLY give IV if patient is unable to take orally. -If inadequate response within 30 minutes, proceed to next-line agent or contact provider if no further options ordered. 1408 (See Alternative - Provider: Zarina Quevedo, GRISELDA) 0252 (See Alternative - Provider: Michaela Perdomo, GRISELDA)1503 (See Alternative - Provider: De Anderson, GRISELDA) ondansetron ODT (ZOFRAN-ODT) disintegrating tablet 4 mg(Linked Group 2) 4 mg, oral, Every 8 hours PRN, vomiting, nausea, Starting on Wed04/10/25 at 0206, -Give IV if patient is unable to take orally. -If inadequate response within 30 minutes, proceed to next-line agent or contact provider if no further options ordered. For ODT tablets: -Do not remove from blister pack until just before administering. -Patient should allow tablet to dissolve on tongue. 1408 (Given - Provider: Zarina Quevedo, RN) 0252 (Given - Provider: Michaela Perdomo, RN)1503 (Given - Provider: De Anderson, GRISELDA) simethicone (MYLICON) chewable tablet 80 mg 80 mg, oral, 4 times daily PRN, flatulence, gas pain, Starting on Edyta 04/12/25 at 1714 2119 (Given - Provider: Viola Torres, GRISELDA) 0650 (Given - Provider: Viola Torres, GRISELDA) Linked Groups Order Group 1: metoclopramide (REGLAN) tablet 10 mgJump to med 10 mg, oral, Every 6 hours PRN, nausea, vomiting, Starting on 04/10/25 at 0149, 2nd Line Option: -Give IV if patient is unable to take orally. Give for persistent nausea following Zofran if ineffective within 45 minutes Or metoclopramide (REGLAN) injection 10 mgJump to med 10 mg, intravenous, Every 6 hours PRN, nausea, vomiting, Starting on 04/10/25 at 0149, 2nd Line Option: -ONLY give IV if patient is unable to take orally. Give for persistent nausea following Zofran if ineffective within 45 minutes Doses LESS than or equal to 10 mg can be given IV push undiluted over 1 minute Group 2: ondansetron ODT (ZOFRAN-ODT) disintegrating tablet 4 mgJump to med 4 mg, oral, Every 8 hours PRN, vomiting, nausea, Starting on 04/10/25 at 0206, -Give IV if patient is unable to take orally. -If inadequate response within 30 minutes, proceed to next-line agent or contact provider if no further options ordered. For ODT tablets: -Do not remove from blister pack until just before administering. -Patient should allow tablet to dissolve on tongue. Or ondansetron (PF) (ZOFRAN) injection 4 mgJump to med 4 mg, intravenous, Every 8 hours PRN, vomiting, nausea, Starting on Wed04/10/25 at 0206, -ONLY give IV if patient is unable to take orally. -If inadequate response within 30 minutes, proceed to next-line agent or contact provider if no further options ordered. documented in this encounter Orders Medications Ordered That Joss ht Not Have Been Administered Count Last Ordered Date First Ordered Date vancomycin (VANCOCIN) 1,000 mg in sodium chloride 0.9 % 250 mL IVPB 1 04/13/2025 albuterol 2.5 mg /3 mL (0.08 3 %) nebulizer solution 2.5 mg 1 04/10/2025 flumazeniL (ROMAZICON) 0.1 m g/mL injection - ADS Override Pull 1 04/10/2025 ketorolac (TORADOL) injection 15 mg 1 04/10 naloxone (NARCAN) injection 0.04 mg 1 04/10 Lab Orders Without Results Count Last Ordered D ate First Ordered Date POCT GLUCOSE, BLOOD 1 04/13/2025 Nursing Count Last Ordered Date First Orde red Date VITAL SIGNS 1 04/09/2025 Consult Count Last Ordered Date First Orde red Date IP CONSULT TO NUTRITION SERVICES 1 04/10/20 25 Isolation Count Last Ordered Date First Orde red Date INITIATE CONTACT ISOLATION 1 04/12/2025 Admission Count Last Ordered Date First Orde red Date INITIATE OBSERVATION STATUS 1 04/10/2025 Transfer Count Last Ordered Date First Orde red Date ED TO FLOOR BED REQUEST 1 04/10/2025 Discharge Count Last Ordered Date First Orde red Date DISCHARGE PATIENT 1 04/13/2025 documented in this encounter Additional Health Concerns Infection Onset Date Last Indicated Resolved Time Gastrointestinal Rule-Out 04/11/2025 04/14/2025 11:49 AM EDT documented as of this encounter Care Teams Marzipan Maker Relationship Specialty Start Date End Date Cassius Alvarez MD [address] [place] [address] PCP - General Internal Medicine 06/07/24 documented as of this encounter
--- OUTSIDE RECORDS SUMMARY | 2025-04-12 16:01 | XMS_ITS | Encounter Summary ---
Author Organization [facility] Address [address] [place] [address] Care Team Providers Care Toddler Caregiver Name Role Phone Cassius Alvarez MD Primary Care Provider [phone] Reason for Visit * Auth/Cert (Routine) Specialty Diagnoses / Procedures Referred By Danyell hwang Referred To Contact Diagnoses Post-operative wound abscess Wound infection after surgery Procedures . Hazel Ardon MD [address] [place] [phone] Phone: tel: fax: [facility] [address] [place] [address] Phone: tel: Referral ID Status Reason Start Date Expiration Date Visits Re quested Visits Authorized [id number] 1 1 Encounter Details Date Type Department Care Team (Late st Contact Info) Description 04/12/2025 4:01 PM EDT Anesthesia Event [facility] [address] [place] [address] Luna Goncalves MD [address] [place] [phone] Tadeo Whaley DO [address] [place] [phone] Anesthesia Record Procedure Summary Procedure Name Responsible Anesthesiologist Anesthesia Start Time Anesthesia Stop Time COLONOSCOPY Luna Goncalves MD 04/12/25 1601 04/12/25 161 8 Events Date Time Event Comment 04/12/2025 1546 1601 An Start 1601 An Start Data The patient wa s reevaluated immediately before moderate or deep sedation use and before anesthesia induction. 1601 In Room 1603 Anesthesia Ready 1617 Out of Room 1618 an stop data 1618 An Stop 1618 Handoff to RN I completed my handoff to the receiving nurse during which we: 1. Identified the patient 2. Identified the responsible provider 3. Reviewed the pertinent medical history 4. Discussed the surgical course 5. Reviewed intra-op anesthesia management and issues during anesthesia 6. Set expectations for post-procedure period 7. Allowed opportunity for questions and acknowledgement of understanding. Meds Name Total propofol (DIPRIVAN) injection 10 mg/mL 2 30 mg lidocaine PF (XYLOCAINE-MPF) local injec tion 2% 40 mg ePHEDrine (AKOVAZ) PF injection 5 mg/mL 7 mg lactated Ringer's infusion 100 mL * Agents Name O2 * Blood No blood administrations on file. Lines, Drains, and Airways Type Details Placement Removal PICC Triple Lumen Placement Date: 02/09 03/05; Placement Time: 1100; Hand Hygiene Completed: Yes; Cath Time Out Checklist Completed: Yes; Size: 4; Length: 37 cm; Orientation: Right; Location: Basilic; Site Prep: Chlorhexidine; Local Anesth: Injectable; Initial Extremity Circumference: 38 cm; Initial Exposed Catheter: 0 cm; Inserted by: Montserrat Argueta IV, RN; Insertion Attempts: 1; Patient Tolerance: Tolerated well; Placement Verification: Other (Comment) (3CG confirmation achieved) 02/26/25 1100 by Montserrat Argueta RN Wound Incision; 03/23/25; Abdomen; Medial, Right, Upper; Sutured 03/23/25 0000 by Kervin Strong RN documented in this encounter Social History Tobacco Use Types Packs/Day Years [...] 03/17/2025 5:44 AM Arleth Peres RN * Are you blind or do [...] 03/17/2025 5:44 AM Arleth Peres RN * Because of a physical, mental, or emotional condition, do you have serious difficulty doing errandsalone such as visiting the doctor? Answer Date of Assessment Author No 03/17/2025 5:44 AM Arleth Peres RN * Calculated C-SSRS Risk Score (Lifetime/Recent) Answer Date of Assessment Author No Risk Indicated 04/14/2025 7:07 AM Sofi Poole RN * [place] Suicide Severity Rating Scale (Screener/Recent Self-Report) Question Answer Date of Assessment Author 1. Wish to be (Past 1 Month) No 025 7:07 AM Sofi Poole RN 2. Non-Specific Active Suici angie Thoughts (Past 1 Month) No 04/14/2025 7:07 AM Sofi Poole, RN 6. Suicidal Behavior (Lifetime) No 7:07 AM EDT Song, Sofi C, RN 6. Suicidal Behavior (3 Months) No 7:07 AM EDT Sofi Song RN documented as of this encounter Mental Status * Because of a physical, mental, or emotional condition, do you have serious difficulty concentrating, remembering, or making decisions? (5 years old or older) Answer Entry Date Author No 03/17/2025 5:44 AM EDT Arleth Perez RN documented in this encounter Progress Notes * Heather Verma CRNA - 04/12/2025 4:18 PM EDT Patient: Jia Valdez Procedure Summary Date: 04/12/25 Room / Location: [facility] Anesthesia Start: 160 Anesthesia Stop: 1617 Procedure: COLONOSCOPY Diagnosis: Diarrhea, unspecified type Scheduled Providers: Pietro Mayer MD; Luna Goncalves MD Responsible Provider: Luna Goncalves MD Anesthesia Type: MAC ASA Status: 2 Anesthesia Plan: MAC Last Vitals: Vitals Value Taken Time BP 104/72 04/12/25 16:18 Temp 97.7 04/12/25 16:18 Pulse 82 04/12/25 16:18 Resp 17 04/12/25 16:18 SpO2 100 04/12/25 16:18 Pain Score: 9 Anesthesia Post Evaluation Patient location during evaluation: PACU Patient participation: complete - patient participated Level of consciousness: sleepy but conscious Pain score: 0 Pain management: adequate Airway patency: patent Anesthetic complications: no Cardiovascular status: blood pressure returned to baseline and stable Respiratory status: acceptable Hydration status: stable Nausea: No Vomiting: No There were no known notable events for this encounter. * Tadeo Whaley DO - 04/12/2025 3:45 PM EDT 34 y.o. female scheduled for Post-operative wound abscess; Wound infection after surgery [COLONOSCOPY] 3 month watery diarrhea, c.diff ruled out Ht Readings from Last 1 Encounters: 04/10/25 1.6 m (63 ) Wt Readings from Last 1 Encounters: 04/11/25 83.2 kg (183 lb 6.4 oz) Body mass index is 32.49 kg/m??. Medical History[1] Surgical History[2] Denies anesthesia complications Allergies[3] Medications Ordered Prior to Encounter[4] Current In-hospital Medications Prior to Admission medications Medication Sig Start Date End Date Taking? Authorizing Provider acetaminophen (TYLENOL) 500 mg tablet Take 2 tablets (1,000 mg total) by mouth every 8 (eight) hours. 04/05/25 GUICHO Harding albuterol 2.5 mg /3 mL (0.083 %) nebulizer solution Take 1 Vial by nebulization every 4 hours as needed. Historical Provider, albuterol HFA (PROAIR HFA ; PROVENTIL HFA ; VENTOLIN HFA) 90 mcg/actuation inhaler Inhale 2 Puffs into the lungs every 4 hours as needed for Cough or Wheezing for up to 30 days. 09/02/21 Historical Provider, ARIPiprazole (ABILIFY) 5 mg tablet Take 0.5 tablets (2.5 mg total) by mouth 1 (one) time each day. at bedtime. Historical Provider, blood-glucose meter kit 1 Kit by Does not apply route daily. 04/10/24 Historical Provider, cholecalciferol (VITAMIN D-3) 25 mcg (1,000 unit) capsule Take 1 capsule (1,000 Units total) by mouth 1 (one) time each day. 09/24/24 Historical Provider, clonazePAM (KlonoPIN) 0.5 mg tablet Take 1 tablet (0.5 mg total) by mouth 1 (one) time each day. 07/06/24 Historical Provider, escitalopram (LEXAPRO) 20 mg tablet Take 1 tablet (20 mg total) by mouth 1 (one) time each day. Historical Provider, esomeprazole (NexIUM) [address] capsule TAKE 1 CAPSULE(40 MG) BY MOUTH 1 TIME EACH DAY BEFORE BREAKFAST. DO NOT OPEN CAPSULE 09/12/24 Dayana Frost MD famotidine (PEPCID) 40 mg tablet Take 1 tablet (40 mg total) by mouth at bedtime. 10/31/24 10/31/25 GUICHO Keating HYDROmorphone (DILAUDID) 2 mg tablet Take 1 tablet (2 mg total) by mouth every 4 (four) hours if needed for severe pain. Max Daily Amount: 12 mg 04/05/25 GUICHO Harding medical supply, miscellaneous (MISCELLANEOUS MEDICAL SUP[place] [facility] [place] GLUCOSE BLOOD TEST STRIPS (ASCENSIA AUTODISC ,ONE TOUCH ULTRA TEST ) STRIP One glucose script per blood sugar check twice daily 04/13/24 05/08/25 Historical Provider, methocarbamoL (ROBAXIN) 500 mg tablet Take 1 tablet (500 mg total) by mouth 1 (one) time each day if needed for muscle spasms. Historical Provider, metoprolol succinate (TOPROL-XL) 25 mg 24 hr tablet Take 1 tablet (25 mg total) by mouth 1 (one) time each day. Do not crush or chew. Historical Provider, mirtazapine (REMERON) 15 mg tablet Take 0.5 tablets (7.5 mg total) by mouth at bedtime. 06/18/21 Historical Provider, norethindrone (RISSA,AYDE,MONTSERRAT,MICRONOR) 0.35 mg tablet Take 1 tablet (0.35 mg total) by mouth1 (one) time each day. 01/15/25 GUICHO Ritchie diclofenac (VOLTAREN) 1 % topical gel Apply 4 g topically 4 (four) times a day. 10/02/24 04/10/25 Historical Provider, docusate sodium (COLACE) 100 mg capsule Take 1 capsule (100 mg total) by mouth 1 (one) time each day. 04/05/25 04/10/25 GUICHO Harding ergocalciferol (VITAMIN D-2) 1,250 mcg (50,000 unit) capsule Take 1 capsule (50,000 Units total) bymouth 1 (one) time per week. Patient not taking: Reported on 03/17/2025 11/01/24 04/10/25 Dayana Frost MD ondansetron (ZOFRAN) 4 mg tablet Take 1 tablet (4 mg total) by mouth every 8 (eight) hours if needed for nausea or vomiting. 03/02/25 04/10/25 GUICHO Mccabe Social History[5] Is the patient a current smoker (e.g. cigarette, cigar, pip, e-cigarette, or mariajuana)? Yes [] No[] Patient previously instructed to abstain from smoking on the day of procedure? Yes [] No[] Patient smoked on the day of procedure? Yes [] No[] ASPIRE smoking VBR: [] Not interested in quitting [] Interested in quitting- referred to treatment [] Interested in quitting - treatment provided Visit Vitals BP 109/66 Pulse 84 Temp 36.1 ??C (97 ??F) (Temporal) Resp 15 Ht 1.6 m (63 ) Wt 83.2 kg (183 lb 6.4 oz) SpO2 100% BMI 32.49 kg/m?? Smoking Status Never BSA 1.86 m?? LABS: Lab Results Component Value Date WBC 9.5 04/11/2025 HGB 10.1 (L) 04/11/2025 HCT 31.9 (L) 04/11/2025 MCV 97.3 04/11/2025 PLT 369 04/11/2025 Lab Results Component Value Date GLUCOSE 111 (H) 04/12/2025 CALCIUM 8.2 (L) 04/12/2025 NA 138 04/12/2025 K 4.0 04/12/2025 CO2 24 04/12/2025 CL 109 04/12/2025 BUN 16 04/12/2025 CREATININE 0.40 (L) 04/12/2025 Lab Results Component Value Date INR 1.0 03/23/2025 INR 1.1 03/19/2025 No results found for: PTT EKG Encounter Date: 04/09/25 ECG 12 lead Result Value Ventricular Rate ECG 95 Atrial Rate 95 P-R Interval 160 QRS Duration 72 Q-T Interval 366 QTc 459 P Wave [place] 62 R [place] -20 T [place] 28 ECG Interpretation Normal sinus rhythm Normal ECG When compared with ECG of 26-MAR-2025 17:10, Premature ventricular complexes are no longer Present *Note: Due to a large number of results and/or encounters for the requested time period, some results have not been displayed. A complete set of results can be found in Results Review. ECHO No results found for this or any previous visit. CATH No results found for this or any previous visit. Relevant Problems Cardio (+) Migraine with aura Pulmonary (+) Asthma (+) GRAY (obstructive sleep apnea) Neuro/Psych (+) Migraine with aura Other (+) Ankylosing spondylitis (CMS/HCC V24, CMS/HCC V28) (+) Iron deficiency anemia (+) Iron deficiency anemia due to chronic blood loss Clinical information reviewed: Tobacco Allergies Meds Med Hx Surg Hx OB Status Fam Hx Soc Hx Anesthesia Plan ASA 2 Anesthesia Plan: MAC Anesthesia Risks Discussed serious complications Induction method: intravenous Anesthetic plan and risks discussed with patient. Anesthesia Evaluation Patient summary reviewed History of anesthetic complications Airway Mallampati: II Dental - normal exam Pulmonary - normal exam (+) asthma, sleep apnea Cardiovascular - normal exam Neuro/Psych (+) headaches GI/Hepatic/Renal (+) GERD, chronic renal disease Endo/Other Abdominal PONV RISK SCORE: 4 Vitals: 04/12/25 0345 04/12/25 0745 04/12/25 1521 04/12/25 1529 BP: 90/57 117/70 89/53 109/66 BP Location: Left arm Left arm Patient Position: Lying Lying Pulse: 86 94 83 84 Resp: 18 20 15 Temp: 36.9 ??C (98.4 ??F) 36.3 ??C (97.4 ??F) 36.1 ??C (97 ??F) TempSrc: Temporal Temporal SpO2: 96% 99% 100% Weight: Height: SpO2 Readings from Last 1 Encounters: 04/12/25 100% WBC Date Value Ref Range Status 04/11/2025 9.5 4.8 - 10.8 K/mcL Final RBC Date Value Ref Range Status 04/11/2025 3.30 (L) 3.80 - 4.80 M/mcL Final Hemoglobin Date Value Ref Range Status 04/11/2025 10.1 (L) 11.5 - 16.0 g/dL Final Hematocrit Date Value Ref Range Status 04/11/2025 31.9 (L) 35.0 - 47.0 % Final Platelets Date Value Ref Range Status 04/11/2025 369 130 - 400 K/mcL Final MCV Date Value Ref Range Status 04/11/2025 97.3 79.0 - 98.0 FL Final Allergies[6] STOP BANG: No data recorded NPO Status: No data recorded [1] Past Medical History: Diagnosis Date Abdominal [...] endometrial biopsy and abdominal myomectomy (Km) [3] Allergies Allergen Reactions Infliximab Headache Other reaction(s): Headaches, SEVERE HEADACHE [4] No current facility-administered medications on file prior to encounter. Current Outpatient Medications on File Prior to Encounter Medication Sig Dispense Refill acetaminophen (TYLENOL) 500 mg tablet Take 2 [...] 0 medical supply, miscellaneous (MISCELLANEOUS MEDICAL SUPPLY [facility] GLUCOSE BLOOD TEST STRIPS (ASCENSIA AUTODISC ,ONE [...] (one) time each day. 84 tablet 1 [DISCONTINUED] diclofenac (VOLTAREN) 1 % topical gel Apply 4 g topically 4 (four) times a day. [DISCONTINUED] docusate sodium (COLACE) 100 mg capsule Take 1 capsule (100 mg total) by mouth 1 (one) time each day. 7 each 0 [DISCONTINUED] ergocalciferol (VITAMIN D-2) 1,250 mcg (50,000 unit) capsule Take 1 capsule (50,000 Units total) by mouth 1 (one) time per week. (Patient not taking: Reported on 03/17/2025) 12 each 0 [DISCONTINUED] ondansetron (ZOFRAN) 4 mg tablet Take 1 tablet (4 mg total) by mouth every 8 (eight)hours if needed for nausea or vomiting. 10 tablet 0 [5] Social History Tobacco Use Smoking status: Never Smokeless tobacco: Never Substance Use Topics Alcohol use: Yes Drug use: No [6] Allergies Allergen Reactions Infliximab Headache Other reaction(s): Headaches, SEVERE HEADACHE documented in this encounter Plan of Treatment Upcoming Encounters Date Type Department Care Team (Late st Contact Info) Description 04/23/2025 11:45 AM EDT Office Visit Bariatric Surgery - [place] [address] [facility] [address] [place] [phone] Dayana Frost MD [address] [place] [phone] 05/07/2025 8:50 AM EDT Office Visit Gastroenterology - [place] 175 [facility] [address] [facility] [address] [place] [phone] Anny Vogel PA 175 [facility] [address] [place] [address] 06/04/2025 1:00 PM EST Office Visit Bariatric Surgery [facility] [address] [facility] [address] [place] [phone] Dayana Frost MD [address] [place] [phone] documented as of this encounter Goals Goal Patient Goal Type Associated Problems Recent Progress Patient-Stated? Author Autogenerat ed Goal Care Plan Autogenerated Problem No Bouchra Collado RN documented as of this encounter Visit Diagnoses Not on filedocumented in this encounter Administered Medications Inactive Administered Medications - up to 3 most recent administrations Medication Order MAR Action Action Date Dose Rate Site ePHEDrine sulfate (PF) (AKOVAZ) 5 mg/mL injection intravenous, As needed, Starting on Edyta 04/12/25 at 1610, Anesthesia Intraprocedure Given 04/12/2025 4:10 PM EDT 7 mg lactated Ringer's infusion intravenous, Continuous PRN, Starting on Edyta 04/12/25 at 1603, Anesthesia Intraprocedure New Bag 04/12/2025 4:03 PM EDT lidocaine (PF) (XYLOCAINE-MPF) 2 % injection injection, As needed, Starting on Edyta 04/12/25 at 1607, Anesthesia Intraprocedure Given 04/12/2025 4:07 PM EDT 40 mg propofoL (DIPRIVAN) injection intravenous, As needed, Starting on Edyta 04/12/25 at 1607, Anesthesia Intraprocedure Given 04/12/2025 4:14 PM EDT 50 mg Given 04/12/2025 4:12 PM EDT 30 mg Given 04/12/2025 4:09 PM EDT 100 mg documented in this encounter Additional Health Concerns Active Problems Noted Date Diagnosed Date Autogenerated Problem 04/11/2025 Infection Onset Date Last Indicated Resolved Time Gastrointestinal Rule-Out 04/11/2025 04/14/2025 11:49 AM EDT documented as of this encounter Care Teams Toddler Caregiver Relationship Specialty Start Date End Date Cassius Alvarez MD [address] [place] [address] PCP - General Internal Medicine 06/07/24 documented as of this encounter
--- OUTSIDE RECORDS SUMMARY | 2025-04-13 18:21 | XMS_ITS | Encounter Summary ---
Author Organization [facility] [place] [address] Care Team Providers Care Regional Training Manager Name Role Phone Cassius Alvarez MD Primary Care Provider [phone] Reason for Visit * Reason Comments picline problem Picline will not flu sh Encounter Details Date Type Department Care Team (Late st Contact Info) Description 04/13/2025 6:21 PM EDT - 04/13/2025 6:41 PM EDT Emergency [facility] Emergency [address] [place] [address] Complication associated with peripherally inserted central catheter (PICC), initial encounter (Primary Dx) Discharge Disposition: Home or Self Care Social [...] Sign Reading Time Taken Comments Blood Pressure 118/79 04/13/2025 5:18 PM EDT Pulse 112 04/13/2025 5:18 PM EDT Temperature 36.6 C (97.9 F) 04/13/2025 5:18 PM EDT Respiratory Rate 16 04/13/2025 5:18 PM EDT Oxygen Saturation 98% 04/13/2025 5:18 PM EDT Inhaled Oxygen Concentration - - Weight 84.8 kg (187 lb) 04/13/2025 5:18 PM EDT Height 160 cm (5' 3 ) 04/13/2025 5:18 PM EDT Body Mass Index 33.13 04/13/2025 5:18 PM EDT documented in this encounter Functional [...] Assessment Author No 03/17/2025 5:44 AM Arleth Peres, RN * Do you have serious difficulty [...] Date of Assessment Author No Risk Indicated 04/13/2025 5:17 PM EDT Jia Alan RN * [place] Suicide Severity Rating Scale (Screener/Recent Self-Report) Question Answer Date of Assessment Author 1. Wish to be (Past 1 Month) No 04/13/2025 5:17 PM EDT Sergei Jacob RN 2. Non-Specific Active Suici angie Thoughts (Past 1 Month) No 04/13/2025 5:17 PM EDT Haseeb Jacob RN 6. Suicidal Behavior (Lifetime) No 5:17 PM EDT Jia Jacob, GRISELDA 6. Suicidal Behavior (3 Months) No 5:17 PM EDT Jia Jacob RN documented as of this encounter Mental Status * Because of a physical, mental, or emotional condition, do you have serious difficulty concentrating, remembering, or making decisions? (5 years old or older) Answer Entry Date Author No 03/17/2025 5:44 AM EDT Arleth Perez RN documented in this encounter Discharge Instructions * Discharge Instructions* Zarina Navarro MD - 04/13/2025 6:33 PM EDT Please return to the emergency department tomorrow between the hours of 7 and 3 and we will be ableto reevaluate your PICC line's functionality and hopefully replace it at that time. In the meantime, continue using your TPN overnight through the working side. documented in this encounter Medications at Time [...] at bedtime. 30 each 3 10/31/2024 11/01/19 26 medical supply, miscellaneous [place] [facility] [place] GLUCOSE BLOOD TEST STRIPS (ASCENSIA [...] for 1 day. 2 each 04/13/2025 04/14/20 documented as of this encounter Discharge Disposition Disposition Code Departure Means Destination Comment s Home or Self Care documented in this encounter Progress Notes * Zarina Navarro MD - 04/13/2025 6:12 PM EDT Pleasant 34-year-old female status post gastric sleeve dorsal presented to the emergency departmentwith abdominal pain at incisional site as well as PICC line difficulties. She has a PICC for TPN. 1port is not flushing the other is working just fine. She is nontoxic but appears uncomfortable. She is requesting antiemetic as well as analgesics both of which have been ordered. Apparently, at this time, 6:15 PM the IV nurses on route to the emergency department to hopefully evaluate the line. * Randy Kaplan RN - 04/13/2025 5:22 PM EDT Pt has picc line to right arm, active infusion of TPN through one access port. Second port assessedas reported unable to flush. Lure lock changed and attempted to flush in triage. Unable to flush and or draw blood off 2nd port. Randy Kaplan RN 04/13/251722 * Jia Jacob RN - 04/13/2025 5:15 PM EDT PT states that her PICC line will not flush. Pt was just d/c'd here about an hour ago. Pt needs PICC for TPN. * Caity Nieto RN - 04/13/2025 5:11 PM EDT Discharged today and her pic line will not flush documented in this encounter Plan of Treatment Upcoming Encounters Date Type Department Care Team (Late st Contact Info) Description 04/23/2025 11:45 AM EDT Office Visit Bariatric Surgery - [place] [address] [facility] [address] [place] [phone] Dayana Frost MD [address] [place] [phone] 05/07/2025 8:50 AM EDT Office Visit Gastroenterology - [place] [address] [place] [address] [facility] [address] [place] [phone] Anny Vogel PA [address] [place] [address] 06/04/2025 1:00 PM EST Office Visit Bariatric Surgery - [place] [address] [facility] [address] [facility] [address] [place] [address] Dayana Frost MD [address] [place] [phone] documented as of this encounter Goals Goal Patient Goal Type Associated Problems Recent Progress Patient-Stated? Author Autogenerat ed Goal Care Plan Autogenerated Problem No Bouchra Collado RN documented as of this encounter Visit Diagnoses Diagnosis Complication associated with peripherally inserted central catheter (PICC), initial encounter- Primary documented in this encounter Administered Medications Inactive Administered Medications - up to 3 most recent administrations Medication Order MAR Action Action Date Dose Rate Site HYDROmorphone (DILAUDID) tablet 2 mg 2 mg, oral, Once, On Wed04/13/25 at 1835, For 1 dose Given 04/13/2025 6:37 PM EDT 2 mg metoclopramide (REGLAN) tablet 10 mg 10 mg, oral, Once, On Wed04/13/25 at 1835, For 1 dose Given 04/13/2025 6:37 PM EDT 10 mg documented in this encounter Active and Recently Administered Medications Times are shown in EDT. Scheduled Medication Order 04/11/2025 04/12/2025 04/13/2025 HYDROmorphone (DILAUDID) tablet 2 mg (COMPLETED) 2 mg, oral, Once, On Wed04/13/25 at 1835, For 1 dose 1836 (Given - Provid er: Peggy Bourne RN) metoclopramide (REGLAN) tablet 10 mg (COMPLETED) 10 mg, oral, Once, On Wed04/13/25 at 1835, For 1 dose 1836 (Given - Provid er: Peggy Bourne RN) documented in this encounter Orders Medications Ordered That Joss ht Not Have Been Administered Count Last Ordered Date First Ordered Date HYDROmorphone (DILAUDID) injection 1 mg 1 1 ondansetron (PF) (ZOFRAN) injection 4 mg 1 04/13/2025 documented in this encounter Additional Health Concerns Active Problems Noted Date Diagnosed Date Autogenerated Problem 04/11/2025 Infection Onset Date Last Indicated Resolved Time Gastrointestinal Rule-Out 04/11/2025 04/14/2025 11:49 AM EDT documented as of this encounter Care Teams Regional Training Manager Relationship Specialty Start Date End Date Cassius Alvarez MD [address] [place] [phone] PCP - General Internal Medicine 06/07/24 documented as of this encounter
--- OUTSIDE RECORDS SUMMARY | 2025-04-14 07:34 | XMS_ITS | Encounter Summary ---
Author Organization [facility] Address [address] [place] [address] Care Team Providers Care Purse Maker Name Role Phone Cassius Alvarez MD Primary Care Provider [phone] Reason for Visit * Reason Comments Vascular Access Problem Pt here last nig ht with clogged picc line-unable to get it functioning told to come back between - to have it replaced Encounter Details Date Type Department Care Team (Late st Contact Info) Description 04/14/2025 7:34 AM EDT - 04/14/2025 11:50 AM EDT Emergency [facility] Emergency [address] [place] [phone] Claribel Castro MD [address] [place] [address] PICC (peripherally inserted central catheter) flush (Primary Dx); Encounter for wound re-check Discharge Disposition: Home or Self Care Social [...] Sign Reading Time Taken Comments Blood Pressure 104/48 04/14/2025 11:11 AM EDT Pulse 80 04/14/2025 11:11 AM EDT Temperature 36.9 C (98.4 F) 04/14/2025 11:11 AM EDT Respiratory Rate 16 04/14/2025 11:11 AM EDT Oxygen Saturation 100% 04/14/2025 11:11 AM EDT Inhaled Oxygen Concentration - - Weight 84.8 kg (187 lb) 04/14/2025 7:05 AM EDT Height 160 cm (5' 3 ) 04/14/2025 7:05 AM EDT Body Mass Index 33.13 04/14/2025 7:05 AM EDT documented in this encounter Functional Status * Are you deaf or do you have serious difficulty hearing? Answer Date of Assessment Author No 03/17/2025 5:44 AM EDT Arleth Perez, GRISELDA * Are you blind or do you [...] 5:44 AM EDT Arleth Perez, RN * Because of a physical, mental, or emotional condition, do you have serious difficulty doing errandsalone such as visiting the doctor? Answer Date of Assessment Author No 03/17/2025 5:44 AM EDT Arleth Medrano RN * Calculated C-SSRS Risk Score (Lifetime/Recent) Answer Date of Assessment Author No Risk Indicated 04/14/2025 7:07 AM EDT Sofi Song RN * [place] Suicide Severity Rating Scale (Screener/Recent Self-Report) Question Answer Date of Assessment Author 1. Wish to be (Past 1 Month) No 025 7:07 AM WENDYT Sofi Song RN 2. Non-Specific Active Suici angie Thoughts (Past 1 Month) No 04/14/2025 7:07 AM WENDYT Sofi Song RN 6. Suicidal Behavior (Lifetime) No 7:07 AM EDT Sofi Song RN 6. Suicidal Behavior (3 Months) No 7:07 AM WENDYT Sofi Song RN documented as of this [...] cannot be sent through Care Everywhere. * Caring for Your PICC or Central IV Line: Video (Spanish) documented in this encounter Medications at Time [...] 11/01/19 medical supply, miscellaneous (MISCELLANEOUS MEDICAL SUPPLY [facility]) GLUCOSE BLOOD TEST STRIPS (ASCENSIA [...] 04/14/20 25 documented as of this encounter Discharge Disposition Disposition Code Departure Means Destination Comment s Home or Self Care Patient verbalizing understanding to follow up with PCP after discharge and return to ED if PICC doesn't flush again. Ambulating in ED with steady gait independently. Per provider Claribel Castro, okay to discharge with current BP. documented in this encounter Progress Notes * Zarina Truong RN - 04/14/2025 10:40 AM EDT Successful Cathflo results x 1 for 2L PICC with Red Port lumen noted to have no blood return and partial occlusion. Instilled at 10:00 Dwell time of 30 min Aspirated and discarded 5 ml Flushed with 10 ml NS Pt tolerated well. Education on pulsatile flush technique provided to patient and father. * GUICHO Harding - 04/14/2025 9:09 AM EDT 34 year old female with extensive bariatric surgery history well-known to the surgery service, withPICC/TPN for chronic nausea and poor PO intake who was recently admitted for wound infection and discharged yesterday with Aquacel packing to the wound and PO abx. She returns to the ED today for a clogged PICC line. IV nurse will be evaluating that. While in the ED, she noted that she is due for her Aquacel packing to be changed today. ED provider called surgery service to evaluate and change packing. Aquacel packing removed. Wound flushed, minimal bloody drainage, no purulence. Wound measures 3 cm deep with 3 cm tunneling at 2 o'clock. Golf ball sized area of induration to the left of the wound. No surrounding erythema. Wound re-packed with Aquacel, covered with gauze and medipore tape. Patienttolerated it well. * Zarina Truong RN - 04/14/2025 8:47 AM EDT Assessment: Malfunctioning PICC line as reported by inability to flush red port and sluggish flush on purple port. Purple port: Smooth flush w/ brisk blood return w/ 10 ml syringe. Red port: Able to flush with resistance with 5 ml syringe, but unable to establish blood return. Recommendation: Administer dose of Cathflo to establish patency prior to replacement of line. * Sofi Song RN - 04/14/2025 7:02 AM EDT PT ARRIVES STEADY GAIT, STATES SHE WAS HERE LAST NIGHT FOR CLOGGED PICK LINE, ADVISED TO RETURN IN MORNING FOR REMOVE AND REPLACEMENT OF RT PICC LINE, PT DENIES ANY OTHER COMPLAINTS OR SYMPTOMS, NON SMOKER,LMP AUG, STATES NO CHANCE OF , USES CONTROL * Claribel Castro MD - 04/14/2025 6:58 AM EDT Images from the original note were not included. [facility] EMERGENCY EMERGENCY DEPARTMENT ENCOUNTER Patient: Jia Valdez MR# [id number] Time of Service: 04/14/2025 7:34 AM History PCP: Cassius Alvarez MD. Chief Complaint Patient presents with Vascular Access Problem Pt here last night with clogged picc line-unable to get it functioning told to come back between 7-3 to have it replaced Jia Valdez is a 34 y.o. female with history of previous gastric bypass status post reversal with postsurgical abscess who presents to the ED with chief complaint Vascular Access Problem (Pt here last night with clogged picc line- unable to get it functioning told to come back between 7-3 to have it replaced) . Patient is currently on TPN via PICC line. She was unable to flush the PICC line yesterday. Does have 2 ports and one of the ports works. She came in for evaluation of this. She also states that she is having some pain at her incisional site where she has Aquacel dressing and packing that is healing by secondary intention. She has had ongoing chills and nausea with vomiting. She has no new fevers. Her other symptoms are unchanged. ROS Negative except for HPI. Allergies: Infliximab Medical History[1] Problem List[2] Surgical History[3] Family History[4] Social History[5] Physical Exam Vitals: 04/14/25 0705 04/14/25 1010 04/14/25 1111 BP: 104/67 94/60 (!) 104/48 BP Location: Left arm Patient Position: Sitting Sitting Pulse: 100 86 80 Resp: 18 16 16 Temp: 37.1 ??C (98.7 ??F) 37 ??C (98.6 ??F) 36.9 ??C (98.4 ??F) TempSrc: Temporal Oral SpO2: 100% 98% 100% Weight: 84.8 kg (187 lb) Height: 1.6 m (63 ) General Appearance: No acute distress Skin: Dry, clean appearing to port PICC in the right upper arm Eyes: EOMI, no scleral icterus HENT: Normocephalic, atraumatic, moist mucous membranes Neck: Supple, normal range of motion Cardiovascular: Regular rate and rhythm, no murmur, 2+ radial pulses Respiratory: Lungs clear to auscultation bilaterally, no respiratory distress, no wheezing or rhonchi Abdomen: Soft, non-tender, non-distended, right upper quadrant area has incision with packing in place with red/brown discharge MSK: No edema or tenderness Neurologic: Awake, alert, no obvious deficits, moving all extremities Psychiatric: Appropriate, cooperative Procedures Medical Decision Making 34-year-old female here with problem with PICC, evaluated by IV therapy and recommend Cathflo. Patient's wound with packing has some red/brown discharge. I did ask surgical PA to evaluate wound as they have been seeing her closely while hospitalized. Seen by Mela LINDO and had wound packing and dressing change, no discharge noted from the wound. No further acute interventions required for this. Patient's home Zofran and oral Dilaudid ordered. Medications Administered Medications alteplase (CATHFLO ACTIVASE) injection 1 mg (1 mg intra-catheter Given 04/14/25 4873) HYDROmorphone (DILAUDID) tablet 2 mg (2 mg oral Given 04/14/25 4654) ondansetron (PF) (ZOFRAN) injection 4 mg (4 mg intravenous Given 04/14/25 0955) metoclopramide (REGLAN) injection 10 mg (10 mg intravenous Given 04/14/25 1106) ED Course as of 04/14/251118 Sat Apr 14, 2025 0853 Discussed with Mela LINDO who will come assess wound and do packing/dressing change [AM] 111 Patient's PICC line able to flush after Cathflo [AM] 1118 Patient does have ongoing nausea but it is the baseline symptoms she has been experiencing while at home. Patient desiring discharge. [AM] ED Course User Index [AM] Claribel Castro MD Clinical Impressions as of 04/14/251118 Encounter for wound re-check PICC (peripherally inserted central catheter) flush External Charts Reviewed: Previous discharge summary Additional History from Independent Historian: Father Discussed management with other providers: Hina LINDO Disposition: Discharge CLINICAL IMPRESSION: 1. PICC (peripherally inserted central catheter) flush 2. Encounter for wound re-check 04/14/2025 MD Claribel Henson MD 04/14/25854 Claribel Castro MD 04/14/25 0957 [1] Past Medical History: Diagnosis Date Abdominal pain NAUSEA FROM BYPASS Anxiety Arthritis Asthma Chronic kidney disease kidney stones Chronic pain disorder Depression Dizziness GERD (gastroesophageal reflux disease) PONV (postoperative nausea and vomiting) Thoracic radiculopathy [2] Patient Active Problem List Diagnosis ADHD (attention deficit hyperactivity disorder) Adnexal cyst Allergic rhinitis Ankylosing spondylitis ([facility] V24, [facility] V28) Anxiety Asthma Bladder spasms Bulimia ([facility] V28) DDD (degenerative disc disease), lumbosacral Depression [...] of stomach Dehydration Wound infection after surgery [3] Past Surgical History: Procedure Laterality Date BARIATRIC SURGERY 08/12/2019 laparoscopic sleeve gastrectomy ([place]) BARIATRIC SURGERY 09/12/2019 exploratory laparoscopy, removal of imbricating stitch, fluoroscopy ([place]) BARIATRIC SURGERY 10/12/2023 robotic revision of gastrojejunostomy, lysis of adhesions, fluoroscopy ([place]) BARIATRIC SURGERY 12/28/2024 robotic reversal of gastric bypass ([place]) BARIATRIC SURGERY 07/29/2023 robotic conversion of sleeve to gastric bypass and hiatal hernia repair ([place]) BARIATRIC SURGERY 03/23/2025 [facility] revision of GG anastomosis, upper GI endoscopy ([place]) CHOLECYSTECTOMY ESOPHAGOGASTRODUODENOSCOPY MYOMECTOMY 11/29/2023 endometrial biopsy and abdominal myomectomy ([place]) [4] Family History Problem Relation Name Age of Onset No Known Problems Mother No Known Problems Father Cancer Father's Sister Breast' Stroke Maternal Grandfather Cancer Maternal Grandfather prostate Stroke Paternal Grandmother [5] Social History Tobacco Use Smoking status: Never Smokeless tobacco: Never Substance Use Topics Alcohol use: Yes Drug use: No Claribel Castro MD 04/14/25 1119 documented in this encounter Plan of Treatment Upcoming Encounters Date Type Department Care Team (Late st Contact Info) Description 04/23/2025 11:45 AM EDT Office Visit Bariatric Surgery - [address] [phone] Dayana Frost MD [address] [place] [phone] 05/07/2025 8:50 AM EDT Office Visit Gastroenterology - [address] [phone] Anny Vogel PA [address] [facility] [address] [place] [address] 06/04/2025 1:00 PM EST Office Visit Bariatric Surgery - [address] [phone] Dayana Frost MD [address] [place] [phone] documented as of this encounter Goals Goal Patient Goal Type Associated Problems Recent Progress Patient-Stated? Author Autogenerat ed Goal Care Plan Autogenerated Problem No Bouchra Collado RN documented as of this encounter Visit Diagnoses Diagnosis PICC (peripherally inserted central catheter) flush- Primary Fitting and adjustment of vascular catheter Encounter for wound re-check documented in this encounter Administered Medications Inactive Administered Medications - up to 3 most recent administrations Medication Order MAR Action Action Date Dose Rate Site alteplase (CATHFLO ACTIVASE) injection 1 mg 1 mg, intra-catheter, Every 2 hours PRN, Lumen 2, Starting on 04/14/25 at 1000, For 2 doses, -Catheter Clearance - PICC -Allow dwell time of 30 - 60 minutes -Attempt to aspirate blood from catheter -If unable to aspirate, allow to dwell for 60 - 90 additional minutes (120 minutes total) -May repeat once in 120 minutes if line not patent Dilute each 2 mg vial with 2.2 mL sterile water to give 1 mg/mL final concentration. Swirl gently to mix; do not shake., Alteplase Indication: Catheter Clearance Given 04/14/2025 9:52 AM EDT 1 mg HYDROmorphone (DILAUDID) tablet 2 mg 2 mg, oral, Once, On 04/14/25 at 0854, For 1 dose Given 04/14/2025 11:15 AM EDT 2 mg metoclopramide (REGLAN) injection 10 mg 10 mg, intravenous, Once, On 04/14/25 at 1046, For 1 dose, Doses LESS than or equal to 10 mg can be given IV push undiluted over 1 minute Given 04/14/2025 11:06 AM EDT 10 mg ondansetron (PF) (ZOFRAN) injection 4 mg 4 mg, intravenous, Once, On 04/14/25 at 0954, For 1 dose Given 04/14/2025 9:55 AM EDT 4 mg documented in this encounter Active and Recently Administered Medications Times are shown in EDT. Scheduled Medication Order 04/12/2025 04/13/2025 04/14/2025 HYDROmorphone (DILAUDID) tablet 2 mg (COMPLETED) 2 mg, oral, Once, On 04/14/25 at 0854, For 1 dose 1115 (Given - Provid er: Kandy Salgado RN - Comment: patient c/o nausea. Wanted to wait for nausea to subside. Provider aware) metoclopramide (REGLAN) injection 10 mg (COMPLETED) 10 mg, intravenous, Once, On 04/14/25 at 1046, For 1 dose, Doses LESS than or equal to 10 mg can be given IV push undiluted over 1 minute 1106 (Given - Provid er: Kandy Salgado RN) ondansetron (PF) (ZOFRAN) injection 4 mg (COMPLETED) 4 mg, intravenous, Once, On 04/14/25 at 0954, For 1 dose 0955 (Given - Provid er: Kandy Salgado RN) PRN Medication Order 04/12/2025 04/13/2025 04/14/2025 alteplase (CATHFLO ACTIVASE) injection 1 mg 1 mg, intra-catheter, Every 2 hours PRN, Lumen 2, Starting on 04/14/25 at 1000, For 2 doses, -Catheter Clearance - PICC -Allow dwell time of 30 - 60 minutes -Attempt to aspirate blood from catheter -If unable to aspirate, allow to dwell for 60 - 90 additional minutes (120 minutes total) -May repeat once in 120 minutes if line not patent Dilute each 2 mg vial with 2.2 mL sterile water to give 1 mg/mL final concentration. Swirl gently to mix; do not shake., Alteplase Indication: Catheter Clearance 0952 (Given - Provid er: Zarina Truong RN) documented in this encounter Orders Medications Ordered That Joss ht Not Have Been Administered Count Last Ordered Date First Ordered Date ondansetron ODT (ZOFRAN-ODT) disintegrating tablet 4 mg 1 04/14/2025 documented in this encounter Additional Health Concerns Active Problems Noted Date Diagnosed Date Autogenerated Problem 04/11/2025 Infection Onset Date Last Indicated Resolved Time Gastrointestinal Rule-Out 04/11/2025 04/14/2025 11:49 AM EDT documented as of this encounter Care Teams Purse Maker Relationship Specialty Start Date End Date Cassius Alvarez MD [address] [place] [address] PCP - General Internal Medicine 06/07/24 documented as of this encounter
--- OUTSIDE RECORDS SUMMARY | 2025-04-17 09:08 | XMS_ITS | Encounter Summary ---
Author Organization [facility] [place] [address] Care Team Providers Care Marriage And Family Counselor Name Role Phone Cassius Alvarez MD Primary Care Provider [phone] Encounter Details Date Type Department Care Team (Late st Contact Info) Description 03/05/2025 Lab Requisition [facility] - Main Lab [address] [place] [address] Dayana Frost MD [address] [place] [phone] Postsurgical malabsorption, not elsewhere classified; Other complications of other bariatric procedure Social History Tobacco Use Types Packs/Day Years Used Date Smoking Tobacco: Never Smokeless Tobacco: Never Alcohol Use Standard Drinks/Week Comments Yes 0 (1 standard drink = 0.6 oz pur e alcohol) Food Risk Answer Date Recorded Within the past 12 months we worried whether our food would run out before we got money to buy more. Never true 02/18/2025 Within the past 12 months th e food we bought just didn't last and we didn't have money to get more. Never true 02/18/2025 Interpersonal Safety Answer Date Record ed Physical Abuse Unrecognized value 02/20/2025 Verbal Abuse Unrecognized value 02/20/2025 Comments No Sex and Gender Information Value [...] 06/17/2024 1:59 AM Jessica Cerrato RN * Calculated C-SSRS Risk Score (Lifetime/Recent) Answer Date of Assessment Author No Risk Indicated 03/05/2025 11:11 PM EDT Sofi Song RN * [place] Suicide Severity Rating Scale (Screener/Recent Self-Report) Question Answer Date of Assessment Author 1. Wish to be (Past 1 Month) No 025 11:11 PM Sofi Poole RN 2. Non-Specific Active Suici angie Thoughts (Past 1 Month) No 03/05/2025 11:11 PM Sofi Poole RN 6. Suicidal Behavior (Lifetime) No 11:11 PM Sofi Poole RN documented as of this encounter Mental [...] AM EDT Office Visit Bariatric Surgery - [place] [address] [place] [phone] Dayana Frost MD [address] [place] [phone] 05/07/2025 8:50 AM EDT Office Visit Gastroenterology - [facility] [address] [place] [phone] Anny Vogel PA [address] [place] [address] 06/04/2025 1:00 PM EST Office Visit Bariatric Surgery - [facility] [address] [place] [phone] Dayana Frost MD [address] [place] [phone] documented as of this encounter Procedures Procedure Name Priority Date/Time Associated Diagnosis Comments CBC WITH AUTO DIFFERENTIAL Routine 03/05/2025 2:50 PM EDT Postsurgical malabsorption, 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 GREEN - NA HEPARIN Routine 03/05/2025 2: 50 PM EDT Postsurgical malabsorption, 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 CBC AND DIFFERENTIAL Routine 03/05/2025 2:50 PM EDT Postsurgical malabsorption, 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 TRIGLYCERIDES Routine 03/05/2025 2:50 PM EDT Postsurgical malabsorption, 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 03/05/2025 5:02 PM EDT [facility] Comment:Auto resulted. Blood Venous blood specimen / Unknown 03/05/2025 2:50 PM EDT 03/05/2025 3:52 PM EDT Dayana Frost MD LAB BLOOD ORDERABLES Fi nal Result [facility] [address] [place] [address], * (ABNORMAL) CBC auto differential (03/05/2025 2:50 PM EDT) WBC 12.0(H) 4.8 - 10.8 K/mcL LAB HEMETOLOGY METHOD 03/05/2025 4:13 PM EDT [facility] RBC 4.20 3.80 - 4.80 M/mcL LAB HEMETOLOGY METHOD 03/05/2025 4:13 PM EDT [facility] Hemoglobin 13.2 11.5 - 16.0 g/dL LAB HEMETOLOGY METHOD 03/05/2025 4:13 PM EDT [facility] Hematocrit 40.5 35.0 - 47.0 % LAB HEMETOLOGY METHOD 03/05/2025 4:13 PM EDT [facility] MCV 96.2 79.0 - 98.0 FL LAB HEMETOLOGY METHOD 03/05/2025 4:13 PM EDT [facility] MCH 31.4 27.0 - 32.0 pcg LAB HEMETOLOGY METHOD 03/05/2025 4:13 PM [facility] MCHC 32.6 32.0 - 37.0 g/dL LAB HEMETOLOGY METHOD 03/05/2025 4:13 PM [facility] RDW 13.1 11.0 - 15.0 % LAB HEMETOLOGY METHOD 03/05/2025 4:13 PM [facility] Platelets 242 130 - 400 K/mcL LAB HEMETOLOGY METHOD 03/05/2025 4:13 PM [facility] MPV 11.6(H) 7.0 - 11.0 FL LAB HEMETOLOGY METHOD 03/05/2025 4:13 PM [facility] NRBC 0.0 <1.0 % LAB HEMETOLOGY METHOD 03/05/2025 4:13 PM [facility] NRBC Absolute 0.00 <0.10 K/mcL LAB HEMETOLOGY METHOD 03/05/2025 4:13 PM [facility] Neutrophils Relative 66.7 % LAB HEMETOLOGY METHOD 03/05/2025 4:13 PM [facility] Lymphocytes Relative 26.6 % LAB HEMETOLOGY METHOD 03/05/2025 4:13 PM [facility] Monocytes Relative 4.3 % LAB HEMETOLOGY METHOD 03/05/2025 4:13 PM [facility] Eosinophils Relative 1.3 % LAB HEMETOLOGY METHOD 03/05/2025 4:13 PM [facility] Basophils Relative 0.7 % LAB HEMETOLOGY METHOD 03/05/2025 4:13 PM [facility] Immature Granulocytes Relative 0.4 % LAB HEMETOLOGY METHOD 03/05/2025 4:13 PM [facility] Neutrophils Absolute 8.00(H) 1.50 - 7.00 K/mcL LAB HEMETOLOGY METHOD 03/05/2025 4:13 PM EDT [facility] Lymphocytes Absolute 3.19 1.00 - 5.00 K/mcL LAB HEMETOLOGY METHOD 03/05/2025 4:13 PM EDT [facility] Monocytes Absolute 0.52 0.20 - 1.00 K/mcL LAB HEMETOLOGY METHOD 03/05/2025 4:13 PM EDT [facility] Eosinophils Absolute 0.15 0.00 - 0.50 K/mcL LAB HEMETOLOGY METHOD 03/05/2025 4:13 PM EDT [facility] Basophils Absolute 0.08 0.00 - 0.20 K/mcL LAB HEMETOLOGY METHOD 03/05/2025 4:13 PM EDT [facility] Immature Granulocytes Absolute 0.05(H) 0.00 - 0.03 K/mcL LAB HEMETOLOGY METHOD 03/05/2025 4:13 PM EDT [facility] Blood Venous blood specimen / Unknown 03/05/2025 2:50 PM EDT 03/05/2025 3:52 PM EDT us Dayana Frost MD LAB BLOOD ORDERABLES Fi nal Result [facility] [address] [place] [address], * Triglycerides (03/05/2025 2:50 PM EDT) Triglycerides 137 0 - 150 mg/dL LAB CHEMISTRY METHOD 03/05/2025 4:39 PM EDT [facility] Blood Venous blood specimen / Unknown 03/05/2025 2:50 PM EDT 03/05/2025 3:52 PM EDT us Dayana Frost MD LAB BLOOD ORDERABLES Fi nal Result Performing Organization Address [facility] de Phone Number [facility] [address] [place] [address], * Phosphorus (03/05/2025 2:50 PM EDT) Phosphorus 3.3 2.5 - 4.5 mg/dL LAB CHEMISTRY METHOD 03/05/2025 4:39 PM EDT [facility] Blood Venous blood specimen / Unknown 03/05/2025 2:50 PM EDT 03/05/2025 3:52 PM EDT us Dayana Frost MD LAB BLOOD ORDERABLES Fi nal Result Performing Organization Address [facility] de Phone Number [facility] [address] [place] [address], [place] [phone] * Magnesium (03/05/2025 2:50 PM EDT) Pathologist [facility] [place] Magnesium 2.1 1.9 - 2.6 mg/dL LAB CHEMISTRY METHOD 03/05/2025 4:39 PM EDT [facility] Blood Venous blood specimen / Unknown 03/05/2025 2:50 PM EDT 03/05/2025 3:52 PM EDT us Dayana Frost MD LAB BLOOD ORDERABLES Fi nal Result Performing Organization Address [facility]/ZIP Co de Phone Number [facility] [address] [place] [address], [place] [phone] * Comprehensive metabolic panel (03/05/2025 2:50 PM EDT) Sodium 138 133 - 145 mmol/L LAB CHEMISTRY METHOD 03/05/2025 4:39 PM EDT [facility] Potassium 3.9 3.5 - 5.5 mmol/L LAB CHEMISTRY METHOD 03/05/2025 4:39 PM [facility] Chloride 109 96 - 110 mmol/L LAB CHEMISTRY METHOD 03/05/2025 4:39 PM [facility] CO2 22 21 - 32 mmol/L LAB CHEMISTRY METHOD 03/05/2025 4:39 PM [facility] Anion Gap 7 3 - 11 LAB CHEMISTRY METHOD 03/05/2025 4:39 PM [facility] Glucose 82 70 - 100 mg/dL LAB CHEMISTRY METHOD 03/05/2025 4:39 PM [facility] BUN 11 5 - 25 mg/dL LAB CHEMISTRY METHOD 03/05/2025 4:39 PM [facility] Creatinine 0.58 0.50 - 1.10 mg/dL LAB CHEMISTRY METHOD 03/05/2025 4:39 PM [facility] eGFR 123 >=60 mL/min/1. 73m2 LAB CHEMISTRY METHOD 03/05/2025 4:39 PM [facility] Comment:Calculation based on the Chronic Kidney Disease Epidemiology Collaboration (CKD-EPI) equation refit without adjustment for race. BUN/Creatinine Ratio 19.0 LAB CHEMISTRY METHOD 03/05/2025 4:39 PM [facility] Calcium 9.2 8.5 - 10.5 mg/dL LAB CHEMISTRY METHOD 03/05/2025 4:39 PM [facility] AST (SGOT) 13 10 - 42 unit/L LAB CHEMISTRY METHOD 03/05/2025 4:39 PM [facility] ALT (SGPT) 21 10 - 60 unit/L LAB CHEMISTRY METHOD 03/05/2025 4:39 PM [facility] Alkaline Phosphatase 97 42 - 121 unit/L LAB CHEMISTRY METHOD 03/05/2025 4:39 PM [facility] Total Protein 7.2 6.0 - 8.0 g/dL LAB CHEMISTRY METHOD 03/05/2025 4:39 PM EDT [facility] Albumin 3.6 3.2 - 5.0 g/dL LAB CHEMISTRY METHOD 03/05/2025 4:39 PM EDT [facility] Total Bilirubin 0.3 0.0 - 1.4 mg/dL LAB CHEMISTRY METHOD 03/05/2025 4:39 PM EDT [facility] Blood Venous blood specimen / Unknown 03/05/2025 2:50 PM EDT 03/05/2025 3:52 PM EDT us Dayana Frost MD LAB BLOOD ORDERABLES Fi nal Result [facility] [address] [place] [address], documented in this encounter Visit Diagnoses Diagnosis Postsurgical malabsorption, 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 difficile Rule-Out 03/07/2025 03/07/20252024 3:25 PM EDT Gastrointestinal Rule-Out 04/11/2025 04/14/2025 11:49 AM EDT documented as of this encounter Care Teams Marriage And Family Counselor Relationship Specialty Start Date End Date Cassius Alvarez MD [id number] [place] [address] PCP - General Internal Medicine 06/07/24 documented as of this encounter
--- OUTSIDE RECORDS SUMMARY | 2025-04-17 09:08 | XMS_ITS | Clinical Summary ---
Author Organization [facility] Address [address] [place] [address] Phone Care Team Providers Care Dog Licenser Name Role Phone Cassius Alvarez MD Primary Care Provider [phone] Allergies Active Allergy Reactions Criticality Noted Date Comments Infliximab Headache Low 04/16/2021 Other reaction(s): Headaches, SEVERE HEADACHE Medications medical supply, miscellaneous (MISCELLANEOUS MEDICAL SUPPLY MISC) GLUCOSE BLOOD TEST STRIPS (ASCENSIA AUTODISC ,ONE TOUCH ULTRA TEST ) STRIP One glucose script per blood sugar check twice daily 024 2024 Active blood-glucose meter kit 1 Kit [...] (7.5 mg total) by mouth at bedtime. Active albuterol 2.5 mg /3 mL (0.083 %) nebulizer solution Take 1 Vial by nebulization every 4 hours as needed. Active ARIPiprazole (ABILIFY) 5 mg tablet Take 0.5 tablets (2.5 mg total) by mouth 1 (one) time each day. at bedtime. Active clonazePAM (KlonoPIN) 0.5 mg tablet Take 1 tablet (0.5 mg total) by mouth 1 (one) time each day. 024 Active esomeprazole (NexIUM) [address] capsule TAKE 1 CAPSULE(40 MG) BY MOUTH 1 TIME EACH DAY BEFORE BREAKFAST. DO NOT OPEN CAPSULE 90 capsule 3 025 Active famotidine (PEPCID) 40 mg tablet Take 1 tablet (40 mg total) by mouth at bedtime. 30 each 3 025 2025 Active metoprolol succinate (TOPROL-XL) 25 mg 24 hr tablet Take 1 tablet (25 mg total) by mouth 1 (one) time each day. Do not crush or chew. Active methocarbamoL (ROBAXIN) 500 mg tablet Take 1 tablet (500 mg total) by mouth 1 (one) time each day if needed for muscle spasms. Active norethindrone (RISSA,AYDE,HE ATHER,MICRONOR) 0.35 mg tablet Take 1 tablet (0.35 mg total) by mouth 1 (one) time each day. 84 tablet 1 025 Active cholecalciferol (VITAMIN D-3) 25 mcg (1,000 unit) capsule Take 1 capsule (1,000 Units total) by mouth 1 (one) time each day. 025 Active acetaminophen (TYLENOL) 500 mg tablet Take 2 tablets (1,000 mg total) by mouth every 8 (eight) hours. 30 tablet 025 Active HYDROmorphone (DILAUDID) 2 mg tabletIndication s:Bariatric surgery status,Epigastri c pain Take 1 tablet (2 mg total) by mouth every 4 (four) hours if needed for severe pain. Max Daily Amount: 12 mg 12 tablet 025 Active ergocalciferol (VITAMIN D-2) 1,250 mcg (50,000 unit) capsule Take 1 capsule (50,000 Units total) by mouth 1 (one) time per week. 12 each 025 2024 Discontinued diclofenac (VOLTAREN) 1 % topical gel Apply 4 g topically 4 (four) times a day. 025 2024 Discontinued [id number] t [id number] (DEKAs Bariatric) 22.5 mg-400 mcg -500 mcg-10 mg tablet,chewable Chew 1 tablet 1 (one) time each day. 30 tablet 025 2024 Additional Information Patient not taking.Reported on 03/17/2025 ondansetron (ZOFRAN) 4 mg tablet Take 1 tablet (4 mg total) by mouth every 8 (eight) hours if needed for nausea or vomiting. 10 tablet 025 2024 Discontinued metoclopramide (REGLAN) 10 mg tablet Take 1 tablet (10 mg total) by mouth 4 (four) times a day (before meals and nightly). 120 each 025 2024 Discontinued(S top Taking at Discharge) HYDROmorphone (DILAUDID) 2 mg tabletIndication s:Bariatric surgery status,Epigastri c pain Take 1 tablet (2 mg total) by mouth every 4 (four) hours if needed for severe pain. Max Daily Amount: 12 mg 12 tablet 025 2024 Discontinued HYDROmorphone (DILAUDID) 2 mg tabletIndication s:Bariatric surgery status,Epigastri c pain Take 1 tablet (2 mg total) by mouth every 4 (four) hours if needed for severe pain. Max Daily Amount: 12 mg 12 tablet 025 2024 Discontinued docusate sodium (COLACE) 100 mg capsule Take 1 capsule (100 mg total) by mouth 1 (one) time each day. 7 each 025 2024 Discontinued sulfamethoxazole -trimethoprim (BACTRIM DS,SEPTRA DS) 800-160 mg per tablet Take 1 tablet by mouth 2 (two) times a day for 1 day. 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 ED and [facility] triage for SOB, [...] Bladder spasms 04/22/2022 Overview (04/26/2024): Went to [facility] on 03/25- discharged stable, advised to [...] with this plan. All questions answered. Bulimia ([facility] V28) 06/04/2021 Overview (04/26/2024): Admitted inpatient 06/03-06/09 for [...] cyst 11/25/2018 Overview (04/26/2024): 11/04/18 Presented to [facility] for abdominal pain. CT scan showed [...] her ferritin; follow-up in a few months [facility] Polysomnogram: Date 04/05/2019; [...] related hypoventilation by 2019 polysomnogram. Ankylosing spondylitis ([facility] V24, [facility] V28 ) 03/31/2013 Overview (04/26/2024): Has been seen at [facility], rheumatology Dr. Valero as well as Dr. Murphy, Dr. Finch, now seeing Dr Brady at [facility]; also Dr Sanders 02/05/2022 under the care of [facility] in [place]. CBC, ESR, CRP, creatinine, AST and ALT ordered at that visit. Plan is to continue with Cimzia 400 mg SC monthly. OCD (obsessive compulsive disorder) 11/30/2012 Depression 10/21/2012 Overview (04/26/2024): History SI- IP Admits Nephrolithiasis 01/12/2012 Overview (04/26/2024): Noted December 2011 Last Assessment & Plan: [facility] 12/21 2 mm right ureteric stone ADHD (attention deficit hyperactivity disorder) 07/24/2011 Anxiety 07/24/2011 Asthma 07/24/2011 Migraine with aura 07/24/2011 Overview (04/26/2024): Dr Flowers Resolved Problems Problem Noted Date Diagnosed Date Resolved Date Generalized abdominal pain 03/20/2025 0 04/05/2025 Nausea & vomiting 03/17/2025 04/05/2025 Gastric anastomotic stricture 03/14/2025 04/05/2025 Encounters Date Type Department Care Team Description 04/16/2025 Lab Requisition [facility] - Main Lab [address] [facility] [place] [address] Dayana Frost MD Other diseases of stomach and duodenum; Disease of digestive system, unspecified 04/16/2025 Results Follow-Up Gastroenterology - [address] [facility] [address] [place] [address] Pietro Mayer MD 04/14/2025 7:34 AM EDT - 04/14/2025 11:50 AM EDT Emergency [facility] Emergency [address] [place] [phone] Claribel Castro MD PICC (peripherally inserted central catheter) flush (Primary Dx); Encounter for wound re-check Discharge Disposition: Home or Self Care 04/13/2025 6:21 PM EDT - 04/13/2025 6:41 PM EDT Emergency [facility] Emergency [address] [place] [phone] Complication associated with peripherally inserted central catheter (PICC), initial encounter (Primary Dx) Discharge Disposition: Home or Self Care 04/12/2025 4:01 PM EDT Anesthesia Event [facility] Endoscopy [address] [place] [phone] Luna Goncalves MD Korobkov, Vitaliy, DO 04/09/2025 7:50 PM EDT - 04/13/2025 3:28 PM EDT Hospital Encounter [facility] Medical Surgical Unit [address] [place] [phone] Mello Rome, Brant Macias MD [facility] Post-operative wound abscess (Primary Dx); Diarrhea, unspecified type; Bariatric surgery status; Epigastric pain; Wound infection after surgery; Diarrhea in adult patient Discharge Disposition: Home-Health Care [facility] 04/09/2025 [place] [facility] [address] [phone] Dayana Frost MD 04/07/2025 8:35 PM EDT - 04/07/2025 11:08 PM EDT Emergency [facility] Emergency [address] [place] [phone] Non-healing surgical wound, initial encounter (Primary Dx) Discharge Disposition: Home or Self Care 03/23/2025 10:30 AM EDT - 03/23/2025 1:30 PM EDT Surgery [facility] Main OR [address] [place] [phone] Dayana Frost MD DAVINCMaria Victoria REVISION OF GASTROGASTRIC ANASTOMOSIS, UPPER GI ENDOSCOPY [70635 (CPT )] 03/23/2025 10:28 AM EDT Anesthesia Event [facility] Main OR [address] [place] [address] Jordin Salvador MD Dasilva, John E, MD 03/19/2025 11:25 AM EDT Anesthesia Event [facility] Endoscopy [address] [place] [address] Kristie Linda MD 03/19/2025 Telephone Gastroenterology - [place] [address] [place] [phone] Mildred Funes MA 03/17/2025 5:11 AM EDT - 04/05/2025 1:27 PM EDT Hospital Encounter [facility] Unit [address] [place] [address] Doris Capone MD Mogul, Ashley, MD White, Cullen D, Dayana Almaraz MD Generalized abdominal pain (Primary Dx); Nausea and vomiting, unspecified vomiting type; Gastric anastomotic stricture; Bariatric surgery status; Epigastric pain Discharge Disposition: Home-Health Care [facility] 03/15/2025 7:06 AM EDT - 03/15/2025 12:36 PM EDT Emergency [facility] Emergency [address] [place] [phone] Nausea and vomiting, unspecified vomiting type (Primary Dx); Abdominal pain, unspecified abdominal location Discharge Disposition: Home or Self Care 03/14/2025 Telephone Bariatric Surgery - [place] [address] [phone] Dayana Frost MD 03/13/2025 Telephone Bariatric Surgery - [place] [address] [phone] Dayana Frost MD 03/12/2025 Lab Requisition [facility] - Main Lab [address] [place] [address] Dayana Frost MD 03/11/2025 2:05 PM EDT - 03/11/2025 5:57 PM EDT Emergency [facility] Emergency [address] [place] [address] Tavia Cotton MD Epigastric pain (Primary Dx) Discharge Disposition: Home or Self Care 03/09/2025 Telephone Bariatric Surgery [facility] [address] [phone] Dayana Frost MD 03/07/2025 1:45 PM EDT Office Visit Bariatric Surgery [address] [phone] Dayana Frost MD Nausea (Primary Dx); S/P gastric bypass; Gastric anastomotic stricture 03/06/2025 7:08 AM EDT - 03/06/2025 12:26 PM EDT Emergency [facility] Emergency [address] [place] [phone] Meeta See DO S/P PICC central line placement (Primary Dx); Epigastric pain Discharge Disposition: Home or Self Care 03/05/2025 Lab Requisition [facility] Lab [address] [place] [address] Dayana Frost MD Postsurgical malabsorption, not elsewhere classified; Other complications of other bariatric procedure 03/02/2025 Telephone Gastroenterology - [place] [address] [place] [address] Patrick Garcia DO 02/28/2025 7:39 AM EDT Anesthesia Event [facility] Endoscopy [address] [place] [phone] Jordin Salvador MD Pierce, Trudy A, CRNA 02/20/2025 8:51 AM EDT Anesthesia Event [facility] Endoscopy [address] [place] [phone] Daniel MartinsDO 02/17/2025 3:39 AM EDT - 03/02/2025 2:14 PM EDT Hospital Encounter [facility] Medical Surgical Unit [address] [place] [address] Doris Capone MD Landry, Jonathan P, MD Fiallo, Viriato M, MD Ogrodnik, Aleksandra P, MD Nausea and vomiting, unspecified vomiting type (Primary Dx); Epigastric pain; Anastomotic stricture of stomach; Complication of bariatric procedure; Nausea; Bilious vomiting with nausea Discharge Disposition: Home-Health Care [facility] 01/30/2025 8:50 AM EDT Office Visit Gastroenterology - [place] 175 [facility] 175 [facility] [address] [place] [address] Anny Vogel PA History of gastric bypass (Primary Dx); Nausea and vomiting, unspecified vomiting type; Gastritis without bleeding, unspecified chronicity, unspecified gastritis type 01/23/2025 8:19 AM EDT - 01/23/2025 11:59 PM EDT Hospital Encounter [facility] Xray [address] [place] [address] Nausea and vomiting, unspecified vomiting type Discharge Disposition: Home or Self Care 01/20/2025 2:58 PM EDT - 01/22/2025 1:31 PM EDT Hospital Encounter [facility] Surgical Unit [address] [place] [phone] Matt Hurd MD Fiallo, Viriato M, MD Nausea and vomiting, unspecified vomiting type (Primary Dx) Discharge Disposition: Home or Self Care from Last 3 Months Immunizations Immunization Administration Dates Next Due DTP 04/25/1993,02/23/1993,1992 [id number] (Pentacel) 2mo to less than 5yo 02/23/1994,04/25/1993,02/23/1993,12/24 [...] and older (Afluria) 3 years and older 04/10/2025,04/27/2016,04/17/2015,04/30,03/15/2012,06/08/2011,05/14/2010 ,05/14/2009,04/19/2009 Influenza, Unspecified 05/12/2021 MMR, measles mumps and [...] 04/23/2009,03/09/1995 Surgical History Surgery Date Site/Laterality Comments ESOPHAGOGASTRODUODENOSCOPY BARIATRIC SURGERY 08/12/2019 laparoscopic sleeve gastrectomy (Ogrodnik) CHOLECYSTECTOMY MYOMECTOMY 11/29/2023 endometrial biopsy and abdominal myomectomy ([facility]) BARIATRIC SURGERY 09/12/2019 exploratory laparoscopy, removal of imbricating stitch, [facility]IC SURGERY 10/12/2023 robotic revision of gastrojejunostomy, lysis of adhesions, fluoroscopy ([facility]) BARIATRIC SURGERY 12/28/2024 robotic reversal of gastric bypass ([facility]) BARIATRIC SURGERY 07/29/2023 robotic conversion of sleeve to gastric bypass and hiatal hernia repair ([facility]) BARIATRIC SURGERY 03/23/2025 Da Ronan revision of GG anastomosis, upper GI endoscopy ([facility]) Medical History Medical History Date Comments Anxiety [...] Mass Index 33.13 04/14/2025 7:05 AM EDT Plan of Treatment Upcoming Encounters Date Type Department Care Team (Late st Contact Info) Description 04/23/2025 11:45 AM EDT Office Visit Bariatric Surgery [address] [phone] Dayana Frost MD [address] [place] [phone] 05/07/2025 8:50 AM EDT Office Visit Gastroenterology [address] [phone] Anny Vogel PA 175 [facility] [address] [place] [address] 06/04/2025 1:00 PM EST Office Visit Bariatric Surgery [facility] [address] [phone] Dayana Frost MD [address] [place] [phone] Health Maintenance Due Date Last Done Comments Pneumococcal Vaccine: Pediatrics (0 to 5 Years) and At-Risk Patients (6 to 49 Years) (1 of 2 - PCV) 10/16/2011 Medicare Annual Wellness Visit 06/20/2022 Depression Screening 07/12/2024 COVID-19 Vaccine ( season) 2025 05/28/2023, 04/18/2022, 10/09/2021, Additional history exists Social Influencers of Health Screening 04/11/2026 04/11/2025 Cervical Cancer Screening: HPV 09/29/2027 09/28/2022 Cholesterol Screening (Lipid Panel) 05/21/2028 05/21/2023 DTaP,Tdap,and Td Vaccines (10 - Td or Tdap) 06/05/2032 06/05/2022, 11/26/2020, 04/23/2009, Additional history exists RSV Immunization Adult Patients (1 - 1-dose 75+ series) 10/16/2067 Hepatitis B Vaccines Completed 04/25/1993, 1992, 1992 [...] C Screening Completed 01/27/2022 Influenza Vaccine Completed 04/10/2025, , 05/19/2023, Additional history exists Hepatitis A Vaccines Aged Out No long er eligible based on patient's age to complete this topic Meningococcal B Vaccine Aged Out No l onger eligible based on patient's age to complete this topic RSV Immunization Patients Under 20 months Aged Out No longer eligible based on patient's age to complete this topic Goals Goal Patient Goal Type Associated Problems Recent Progress Patient-Stated? Author Autogenerat ed Goal Care Plan Autogenerated Problem No Bouchra Collado, studio assistant Procedure Name Priority Date/Time Associated Diagnosis Comments SST - GOLD Routine 04/16/2025 12:00 AM EDT Other diseases of stomach and duodenum Disease of digestive system, unspecified CBC WITH AUTO DIFFERENTIAL Routine 04/16/2025 12:00 AM EDT Other diseases of stomach and duodenum Disease of digestive system, unspecified CBC AND DIFFERENTIAL Routine 04/16/2025 12:00 AM EDT Other diseases of stomach and duodenum Disease of digestive system, unspecified TRIGLYCERIDES Routine 04/16/2025 12:00 AM EDT Other diseases of stomach and duodenum Disease of digestive system, unspecified PHOSPHORUS Routine 04/16/2025 12:00 AM EDT Other diseases of stomach and duodenum Disease of digestive system, unspecified MAGNESIUM Routine 04/16/2025 12:00 AM EDT Other diseases of stomach and duodenum Disease of digestive system, unspecified COMPREHENSIVE METABOLIC PANEL Routine 04/16/2025 12:00 AM EDT Other diseases of stomach and duodenum Disease of digestive system, unspecified GASTROINTESTINAL PATHOGENS BY PCR Routine 04/14/2025 12:00 AM EDT Diarrhea in adult patient POCT GLUCOSE BLOOD Routine 04/13/2025 9: 47 AM EDT CALCIUM, IONIZED Routine 04/13/2025 5:22 AM EDT PHOSPHORUS Routine 04/13/2025 5:22 AM EDT MAGNESIUM Routine 04/13/2025 5:22 AM EDT BASIC METABOLIC [...] 12:09 PM EDT IMMUNOGLOBULIN IGA Routine 04/11/2025 12:09 PM EDT VANCOMYCIN, TROUGH Timed 04/11/2025 12:09 PM EDT CBC WITH AUTO DIFFERENTIAL Routine 04/11/2025 6:28 AM EDT CBC AND DIFFERENTIAL Routine 04/11/2025 6:28 AM EDT TRIGLYCERIDES Routine 04/11/2025 6:28 AM EDT CALCIUM, IONIZED Routine 04/11/2025 6:28 AM EDT MAGNESIUM Routine 04/11/2025 6:28 AM EDT BASIC METABOLIC PANEL Routine 04/11/2025 6:28 AM EDT PHOSPHORUS Routine 04/11/2025 6:28 AM EDT POCT GLUCOSE BLOOD Routine 04/10/2025 6: 38 PM EDT XR UGI W SINGLE CONTRAST Routine 04/10/2025 9:54 AM EDT PHOSPHORUS Add-On 04/10/2025 4:23 AM EDT MAGNESIUM Add-On 04/10/2025 4:23 AM EDT CBC WITH AUTO DIFFERENTIAL Routine 04/10/2025 4:23 AM EDT COMPREHENSIVE METABOLIC PANEL Routine 04/10/2025 4:23 AM EDT CBC AND DIFFERENTIAL Routine 04/10/2025 4:[address] ABDOMEN PELVIS W CONTRAST STAT 04/09/2025 10:47 PM EDT LACTATE, WITH REFLEX STAT 04/09/2025 9:59 PM EDT CBC WITH AUTO DIFFERENTIAL STAT 04/09/2025 9:59 PM EDT MAGNESIUM STAT 04/09/2025 9:59 PM EDT BASIC METABOLIC PANEL STAT 04/09/2025 9:59 PM EDT CBC AND DIFFERENTIAL STAT 04/09/2025 9:59 PM EDT CULTURE BLOOD STAT 04/09/2025 9:59 PM EDT CULTURE BLOOD STAT 04/09/2025 9:59 PM EDT ED WOUND CARE Routine 04/08/2025 1:13 AM EDT HCG, SERUM, QUALITATIVE STAT Add-on 04/07/2025 9:30 PM EDT CBC WITH AUTO DIFFERENTIAL STAT 04/07/2025 9:30 PM EDT CBC AND DIFFERENTIAL STAT 04/07/2025 9:30 PM EDT LACTATE STAT 04/07/2025 9:30 PM EDT COMPREHENSIVE METABOLIC PANEL STAT 04/07/2025 9:30 PM EDT CBC WITH AUTO DIFFERENTIAL Routine 04/05/2025 5:52 AM EDT CALCIUM, IONIZED Routine 04/05/2025 5:52 AM EDT PHOSPHORUS Routine 04/05/2025 5:52 AM EDT MAGNESIUM Routine 04/05/2025 5:52 AM EDT BASIC METABOLIC PANEL Routine 04/05/2025 5:52 AM EDT CBC AND DIFFERENTIAL Routine 04/05/2025 5:52 AM EDT CBC WITH AUTO DIFFERENTIAL Routine 04/04/2025 5:46 AM EDT PHOSPHORUS Routine 04/04/2025 5:46 AM EDT MAGNESIUM Routine 04/04/2025 5:46 AM EDT BASIC METABOLIC PANEL Routine 04/04/2025 5:46 AM EDT CBC AND DIFFERENTIAL Routine 04/04/2025 5:46 AM EDT US ABDOMEN LIMITED Routine 04/03/2025 1: 00 PM EDT CBC WITH AUTO DIFFERENTIAL Routine 04/03/2025 5:27 AM EDT PHOSPHORUS Routine 04/03/2025 5:27 AM EDT MAGNESIUM Routine 04/03/2025 5:27 AM EDT BASIC METABOLIC PANEL Routine 04/03/2025 5:27 AM EDT TRIGLYCERIDES Routine 04/03/2025 5:27 AM EDT CBC AND DIFFERENTIAL Routine 04/03/2025 5:27 AM EDT MANUAL DIFFERENTIAL - SYSMEX WAM Routine 04/02/2025 6:44 AM EDT CBC WITH AUTO DIFFERENTIAL Routine 04/02/2025 6:44 AM EDT CALCIUM, IONIZED Routine 04/02/2025 6:44 AM EDT PHOSPHORUS Routine 04/02/2025 6:44 AM EDT MAGNESIUM Routine 04/02/2025 6:44 AM EDT BASIC METABOLIC PANEL Routine 04/02/2025 6:44 AM EDT CBC AND DIFFERENTIAL Routine 04/02/2025 6:44 AM EDT VANCOMYCIN, TROUGH Timed 04/02/2025 12:10 AM EDT MANUAL DIFFERENTIAL - SYSMEX WAM Routine 04/01/2025 9:54 AM EDT CBC WITH AUTO DIFFERENTIAL Routine 04/01/2025 9:54 AM EDT CBC AND DIFFERENTIAL Routine 04/01/2025 9:54 AM EDT SST - GOLD Routine 04/01/2025 9:51 AM EDT EXTRA TUBES Routine 04/01/2025 9:51 AM EDT HEPATIC FUNCTION PANEL Routine 5:50 AM EDT PHOSPHORUS Routine 04/01/2025 5:50 AM EDT MAGNESIUM Routine 04/01/2025 5:50 AM EDT BASIC METABOLIC PANEL Routine 04/01/2025 5:50 AM EDT VANCOMYCIN, TROUGH Timed 03/31/2025 10:55 AM EDT CBC WITH AUTO DIFFERENTIAL Routine 03/31/2025 6:32 AM EDT CBC AND DIFFERENTIAL Routine 03/31/2025 6:32 AM EDT CALCIUM, IONIZED Routine 03/31/2025 6:32 AM EDT PHOSPHORUS Routine 03/31/2025 6:32 AM EDT MAGNESIUM Routine 03/31/2025 6:32 AM EDT BASIC METABOLIC PANEL Routine 03/31/2025 6:32 AM EDT VANCOMYCIN, TROUGH Timed 03/30/2025 9: 30 AM EDT CBC WITH AUTO DIFFERENTIAL Routine 03/30/2025 6:00 AM EDT MAGNESIUM Routine 03/30/2025 6:00 AM EDT CBC AND DIFFERENTIAL Routine 03/30/2025 6:00 AM EDT PHOSPHORUS Routine 03/30/2025 6:00 AM EDT BASIC METABOLIC PANEL Routine 03/30/2025 6:00 AM EDT CULTURE WOUND WITH GRAM STAIN Routine 03/29/2025 7:05 PM EDT PHOSPHORUS Routine 03/29/2025 8:28 AM EDT MAGNESIUM Routine 03/29/2025 8:28 AM EDT BASIC METABOLIC PANEL Routine 03/29/2025 8:28 AM EDT CBC WITH AUTO DIFFERENTIAL Routine 03/29/2025 5:52 AM EDT CBC AND DIFFERENTIAL Routine 03/29/2025 5:[address] ABDOMEN PELVIS WO CONTRAST STAT 03/28/2025 8:49 PM EDT C-REACTIVE PROTEIN Add-On 03/28/2025 6: 02 AM EDT RBC MORPHOLOGY REVIEW Routine 03/28/2025 6:02 AM EDT CBC WITH AUTO DIFFERENTIAL Routine 03/28/2025 6:02 AM EDT CBC AND DIFFERENTIAL Routine 03/28/2025 6:02 AM EDT PHOSPHORUS Routine 03/28/2025 6:02 AM EDT MAGNESIUM Routine 03/28/2025 6:02 AM EDT BASIC METABOLIC PANEL Routine 03/28/2025 6:02 AM EDT C-REACTIVE PROTEIN Add-On 03/27/2025 6: 08 AM EDT CBC WITH AUTO DIFFERENTIAL Routine 03/27/2025 6:08 AM EDT CBC AND DIFFERENTIAL Routine 03/27/2025 6:08 AM EDT PHOSPHORUS Routine 03/27/2025 6:08 AM EDT MAGNESIUM Routine 03/27/2025 6:08 AM EDT BASIC METABOLIC PANEL Routine 03/27/2025 6:08 AM EDT TRIGLYCERIDES Routine 03/27/2025 6:08 AM EDT ECG 12-LEAD STAT 03/26/2025 5:10 PM EDT FERRITIN Add-On 03/26/2025 8:28 AM EDT IRON AND TIBC Add-On 03/26/2025 8:28 AM EDT PHOSPHORUS Routine 03/26/2025 8:28 AM EDT MAGNESIUM Routine 03/26/2025 8:28 AM EDT BASIC METABOLIC PANEL Routine 03/26/2025 8:28 AM EDT CBC WITH AUTO DIFFERENTIAL Routine 03/26/2025 6:06 AM EDT CBC AND DIFFERENTIAL Routine 03/26/2025 6:06 AM EDT CALCIUM, IONIZED Routine 03/26/2025 6:06 AM EDT RBC MORPHOLOGY REVIEW Routine 03/25/2025 10:41 AM EDT CBC WITH AUTO DIFFERENTIAL Routine 03/25/2025 10:41 AM EDT CBC AND DIFFERENTIAL Routine 03/25/2025 10:41 AM EDT HEPATIC FUNCTION PANEL Routine 8:28 AM EDT PHOSPHORUS Routine 03/25/2025 8:28 AM EDT MAGNESIUM Routine 03/25/2025 8:28 AM EDT BASIC METABOLIC PANEL Routine 03/25/2025 8:28 AM EDT CALCIUM, IONIZED Routine 03/25/2025 6:02 AM EDT POCT GLUCOSE BLOOD Routine 03/24/2025 7: 38 PM EDT POCT GLUCOSE BLOOD Routine 03/24/2025 4: 13 PM EDT POCT GLUCOSE BLOOD Routine 03/24/2025 11:03 AM EDT POCT GLUCOSE BLOOD Routine 03/24/2025 7: 54 AM EDT CBC WITH AUTO DIFFERENTIAL Routine 03/24/2025 5:21 AM EDT CBC AND DIFFERENTIAL Routine 03/24/2025 5:21 AM EDT PHOSPHORUS Routine 03/24/2025 5:21 AM EDT MAGNESIUM Routine 03/24/2025 5:21 AM EDT BASIC METABOLIC PANEL Routine 03/24/2025 5:21 AM EDT POCT GLUCOSE BLOOD Routine 03/24/2025 5: 20 AM EDT PROCEDURAL ECG Routine 03/24/2025 3:14 AM EDT POCT GLUCOSE BLOOD Routine 03/23/2025 11:50 PM EDT POCT GLUCOSE BLOOD Routine 03/23/2025 7: 29 PM EDT TISSUE EXAM Routine 03/23/2025 1:23 PM EDT Gastric anastomotic stricture TH AN ENDOTRACHEAL(NO CHARGE) Routine 03/23/2025 11:32 AM EDT KS UNLISTED PROCEDURE LAPAROSCOPIC STOMACH 03/23/2025 10:28 AM EDT Gastric anastomotic stricture Case Notes 23 HR BED Special Needs 150 MINUTES TYPE AND SCREEN Routine 03/23/2025 7:43 AM EDT POCT GLUCOSE BLOOD Routine 03/23/2025 6: 14 AM EDT CBC WITH AUTO DIFFERENTIAL Routine 03/23/2025 4:33 AM EDT CALCIUM, IONIZED Routine 03/23/2025 4:33 AM EDT PHOSPHORUS Routine 03/23/2025 4:33 AM EDT MAGNESIUM Routine 03/23/2025 4:33 AM EDT BASIC METABOLIC PANEL Routine 03/23/2025 4:33 AM EDT CBC AND DIFFERENTIAL Routine 03/23/2025 4:33 AM EDT PROTHROMBIN TIME WITH INR Routine 03/23/2025 4:33 AM EDT POCT GLUCOSE BLOOD Routine 03/23/2025 12:08 AM EDT POCT GLUCOSE BLOOD Routine 03/22/2025 2: 19 PM EDT POCT GLUCOSE BLOOD Routine 03/22/2025 9: 37 AM EDT PROCEDURAL ECG Routine 03/22/2025 7:40 AM EDT CBC WITH AUTO DIFFERENTIAL Routine 03/22/2025 5:59 AM EDT CBC AND DIFFERENTIAL Routine 03/22/2025 5:59 AM EDT PHOSPHORUS Routine 03/22/2025 5:59 AM EDT MAGNESIUM Routine 03/22/2025 5:59 AM EDT BASIC METABOLIC PANEL Routine 03/22/2025 5:59 AM EDT POCT GLUCOSE BLOOD Routine 03/22/2025 5: 50 AM EDT POCT GLUCOSE BLOOD Routine 03/22/2025 12:29 AM EDT POCT GLUCOSE BLOOD Routine 03/21/2025 5:15 PM EDT POCT GLUCOSE BLOOD Routine 03/21/2025 2: 04 PM EDT CBC WITH AUTO DIFFERENTIAL Routine 03/21/2025 5:31 AM EDT CBC AND DIFFERENTIAL Routine 03/21/2025 5:31 AM EDT CALCIUM, IONIZED Routine 03/21/2025 5:31 AM EDT PHOSPHORUS Routine 03/21/2025 5:31 AM EDT MAGNESIUM Routine 03/21/2025 5:31 AM EDT BASIC METABOLIC PANEL Routine 03/21/2025 5:31 AM EDT POCT GLUCOSE BLOOD Routine 03/21/2025 3: 07 AM EDT POCT GLUCOSE BLOOD Routine 03/20/2025 8: 34 PM EDT POCT GLUCOSE BLOOD Routine 03/20/2025 4: 01 PM EDT POCT GLUCOSE BLOOD Routine 03/20/2025 11:23 AM EDT BASIC METABOLIC PANEL STAT 03/20/2025 10:58 AM EDT PHOSPHORUS STAT 03/20/2025 10:58 AM EDT LAVENDER - EDTA Routine 03/20/2025 10:54 AM EDT EXTRA TUBES Routine 03/20/2025 10:54 AM EDT POCT GLUCOSE BLOOD Routine 03/20/2025 7: 56 AM EDT CBC WITH AUTO DIFFERENTIAL Routine 03/20/2025 5:46 AM EDT CBC AND DIFFERENTIAL Routine 03/20/2025 5:46 AM EDT PHOSPHORUS Routine 03/20/2025 5:46 AM EDT MAGNESIUM Routine 03/20/2025 5:46 AM EDT BASIC METABOLIC PANEL Routine 03/20/2025 5:46 AM EDT TRIGLYCERIDES Routine 03/20/2025 5:46 AM EDT POCT GLUCOSE BLOOD Routine 03/20/2025 3: 08 AM EDT POCT GLUCOSE BLOOD Routine 03/19/2025 9: 32 PM EDT POCT GLUCOSE BLOOD Routine 03/19/2025 4: 32 PM EDT EGD Routine 03/19/2025 11:48 AM EDT TISSUE EXAM Routine 03/19/2025 11:44 AM EDT Generalized abdominal pain Nausea and vomiting, unspecified vomiting type POCT GLUCOSE BLOOD Routine 03/19/2025 9: 28 AM EDT POCT GLUCOSE BLOOD Routine 03/19/2025 7: 57 AM EDT CBC WITH AUTO DIFFERENTIAL Routine 03/19/2025 6:01 AM EDT PROTHROMBIN TIME WITH INR Routine 03/19/2025 6:01 AM EDT PHOSPHORUS Routine 03/19/2025 6:01 AM EDT MAGNESIUM Routine 03/19/2025 6:01 AM EDT BASIC METABOLIC PANEL Routine 03/19/2025 6:01 AM EDT CBC AND DIFFERENTIAL Routine 03/19/2025 6:01 AM EDT POCT GLUCOSE BLOOD Routine 03/19/2025 3: 41 AM EDT POCT GLUCOSE BLOOD Routine 03/18/2025 8: 15 PM EDT POCT GLUCOSE BLOOD Routine 03/18/2025 4: 58 PM EDT POCT GLUCOSE BLOOD Routine 03/18/2025 11:58 AM EDT POCT GLUCOSE BLOOD Routine 03/18/2025 7: 47 AM EDT CBC WITH AUTO DIFFERENTIAL Routine 03/18/2025 5:44 AM EDT PHOSPHORUS Routine 03/18/2025 5:44 AM EDT MAGNESIUM Routine 03/18/2025 5:44 AM EDT BASIC METABOLIC PANEL Routine 03/18/2025 5:44 AM EDT CBC AND DIFFERENTIAL Routine 03/18/2025 5:44 AM EDT POCT GLUCOSE BLOOD Routine 03/18/2025 12:30 AM EDT POC , URINE DIAGNOSTIC STAT 03/17/2025 5:35 AM EDT SST - GOLD Routine 03/17/2025 5:29 AM EDT EXTRA TUBES Routine 03/17/2025 5:29 AM EDT MCARTHUR URINE CULTURE TUBE STAT 03/17/2025 5:29 AM EDT URINALYSIS WITH REFLEX MICROSCOPIC AND CULTURE STAT 03/17/2025 5:29 AM EDT URINALYSIS WITH REFLEX MICROSCOPIC AND CULTURE STAT 03/17/2025 5:29 AM EDT CBC WITH AUTO DIFFERENTIAL STAT 03/17/2025 5:29 AM EDT LIPASE STAT 03/17/2025 5:29 AM EDT COMPREHENSIVE METABOLIC PANEL STAT 03/17/2025 5:29 AM EDT CBC AND DIFFERENTIAL STAT 03/17/2025 5:29 AM EDT CULTURE URINE STAT 03/17/2025 5:[address] ABDOMEN PELVIS W CONTRAST STAT 03/15/2025 9:16 AM EDT POC , URINE DIAGNOSTIC STAT 03/15/2025 7:51 AM EDT MCARTHUR URINE CULTURE TUBE STAT 03/15/2025 7:50 AM EDT URINALYSIS WITH REFLEX MICROSCOPIC AND CULTURE STAT 03/15/2025 7:50 AM EDT URINALYSIS WITH REFLEX MICROSCOPIC AND CULTURE STAT 03/15/2025 7:50 AM EDT CULTURE URINE STAT 03/15/2025 7:50 AM EDT CBC WITH AUTO DIFFERENTIAL STAT 03/15/2025 7:43 AM EDT LIPASE STAT 03/15/2025 7:43 AM EDT MAGNESIUM STAT 03/15/2025 7:43 AM EDT COMPREHENSIVE METABOLIC PANEL STAT 03/15/2025 7:43 AM EDT CBC AND DIFFERENTIAL STAT 03/15/2025 7:43 AM EDT CBC WITH AUTO DIFFERENTIAL Routine 03/12/2025 2:00 PM EDT TRIGLYCERIDES Routine 03/12/2025 2:00 PM EDT PHOSPHORUS Routine 03/12/2025 2:00 PM EDT MAGNESIUM Routine 03/12/2025 2:00 PM EDT COMPREHENSIVE METABOLIC PANEL Routine 03/12/2025 2:00 PM EDT CBC AND DIFFERENTIAL Routine 03/12/2025 2:00 PM EDT CBC WITH AUTO DIFFERENTIAL STAT 03/11/2025 12:54 PM EDT LIPASE STAT 03/11/2025 12:54 PM EDT COMPREHENSIVE METABOLIC PANEL STAT 03/11/2025 12:54 PM EDT CBC AND DIFFERENTIAL STAT 03/11/2025 12:54 PM EDT POC , URINE DIAGNOSTIC STAT 03/11/2025 12:18 PM EDT CLOSTRIDIUM DIFFICILE TOXIN Routine 03/07/2025 1:26 PM EDT Diarrhea, unspecified type VAS US DUPLEX UPPER EXT VENOUS RIGHT STAT 03/06/2025 9:04 AM EDT S/P PICC central line placement CBC WITH AUTO DIFFERENTIAL STAT 03/06/2025 8:22 AM EDT CBC AND DIFFERENTIAL STAT 03/06/2025 8:22 AM EDT COMPREHENSIVE METABOLIC PANEL STAT 03/06/2025 8:22 AM EDT TROPONIN I HIGH SENSITIVITY STAT 03/06/2025 8:22 AM EDT XR CHEST 1 VIEW STAT 03/06/2025 8:01 AM EDT POC , URINE DIAGNOSTIC STAT 03/06/2025 3:37 AM EDT GREEN - NA HEPARIN Routine 03/05/2025 2: 50 PM EDT Postsurgical malabsorption, 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 CBC WITH AUTO DIFFERENTIAL Routine 03/05/2025 2:50 [...] classified Other complications of other bariatric procedure POCT GLUCOSE BLOOD Routine 03/02/2025 8: 35 AM EDT BASIC METABOLIC PANEL Routine 03/02/2025 7:55 AM EDT MAGNESIUM Routine 03/02/2025 7:55 AM EDT PHOSPHORUS Routine 03/02/2025 7:55 AM EDT TYPE AND SCREEN Routine 03/02/2025 6:58 AM EDT POCT GLUCOSE BLOOD Routine 03/02/2025 5: 57 AM EDT CBC WITH AUTO DIFFERENTIAL Routine 03/02/2025 5:46 AM EDT CBC AND DIFFERENTIAL Routine 03/02/2025 5:46 AM EDT POCT GLUCOSE BLOOD Routine 03/02/2025 12:01 AM EDT POCT GLUCOSE BLOOD Routine 03/01/2025 6: 53 PM EDT POCT GLUCOSE BLOOD Routine 03/01/2025 11:04 AM EDT CALCIUM, IONIZED Routine 03/01/2025 9:03 AM EDT OXYGEN THERAPY, ADULT Routine 03/01/2025 8:01 AM EDT POCT GLUCOSE BLOOD Routine 03/01/2025 7: 40 AM EDT POCT GLUCOSE BLOOD Routine 03/01/2025 6: 14 AM EDT PHOSPHORUS Routine 03/01/2025 5:30 AM EDT MAGNESIUM Routine 03/01/2025 5:30 AM EDT BASIC METABOLIC PANEL Routine 03/01/2025 5:30 AM EDT POCT GLUCOSE BLOOD Routine 03/01/2025 12:10 AM EDT OXYGEN THERAPY, ADULT Routine 02/28/2025 8:00 PM EDT POCT GLUCOSE BLOOD Routine 02/28/2025 8: 00 PM EDT POCT GLUCOSE BLOOD Routine 02/28/2025 11:57 AM EDT ECG 12-LEAD Routine 02/28/2025 10:27 AM EDT OXYGEN THERAPY, ADULT Routine 02/28/2025 8:02 AM EDT EGD Routine 02/28/2025 7:59 AM EDT Nausea and vomiting, unspecified vomiting type Epigastric pain POCT GLUCOSE BLOOD Routine 02/28/2025 6: 30 AM EDT PHOSPHORUS Routine 02/28/2025 5:21 AM EDT MAGNESIUM Routine 02/28/2025 5:21 AM EDT BASIC METABOLIC PANEL Routine 02/28/2025 5:21 AM EDT POCT GLUCOSE BLOOD Routine 02/28/2025 12:18 AM EDT OXYGEN THERAPY, ADULT Routine 02/27/2025 8:00 PM EDT POCT GLUCOSE BLOOD Routine 02/27/2025 6: 22 PM EDT POCT GLUCOSE BLOOD Routine 02/27/2025 12:50 PM EDT OXYGEN THERAPY, ADULT Routine 02/27/2025 8:02 AM EDT CALCIUM, IONIZED Routine 02/27/2025 6:37 AM EDT PHOSPHORUS Routine 02/27/2025 6:37 AM EDT MAGNESIUM Routine 02/27/2025 6:37 AM EDT BASIC METABOLIC PANEL Routine 02/27/2025 6:37 AM EDT TRIGLYCERIDES Routine 02/27/2025 6:37 AM EDT LAVENDER - EDTA Routine 02/27/2025 6:30 AM EDT EXTRA TUBES Routine 02/27/2025 6:30 AM EDT POCT GLUCOSE BLOOD Routine 02/27/2025 5: 07 AM EDT POCT GLUCOSE BLOOD Routine 02/26/2025 11:37 PM EDT OXYGEN THERAPY, ADULT Routine 02/26/2025 8:00 PM EDT XR UGI W SINGLE CONTRAST Routine 02/26/2025 1:06 PM EDT INSERT PICC LINE Routine 02/26/2025 11:52 AM EDT OXYGEN THERAPY, ADULT Routine 02/26/2025 8:02 AM EDT POCT GLUCOSE BLOOD Routine 02/26/2025 7: 48 AM EDT HEPATIC FUNCTION PANEL Routine 6:41 AM EDT PHOSPHORUS Routine 02/26/2025 6:41 AM EDT MAGNESIUM Routine 02/26/2025 6:41 AM EDT BASIC METABOLIC PANEL Routine 02/26/2025 6:41 AM EDT LAVENDER - EDTA Routine 02/26/2025 6:40 AM EDT EXTRA TUBES Routine 02/26/2025 6:40 AM EDT POCT GLUCOSE BLOOD Routine 02/26/2025 2: 19 AM EDT OXYGEN THERAPY, ADULT Routine 02/25/2025 8:00 PM EDT POCT GLUCOSE BLOOD Routine 02/25/2025 6: 37 PM EDT POCT GLUCOSE BLOOD Routine 02/25/2025 8: 55 AM EDT OXYGEN THERAPY, ADULT Routine 02/25/2025 8:00 AM EDT PHOSPHORUS Routine 02/25/2025 6:49 AM EDT MAGNESIUM Routine 02/25/2025 6:49 AM EDT BASIC METABOLIC PANEL Routine 02/25/2025 6:49 AM EDT LAVENDER - EDTA Routine 02/25/2025 6:43 AM EDT EXTRA TUBES Routine 02/25/2025 6:43 AM EDT POCT GLUCOSE BLOOD Routine 02/25/2025 5: 19 AM EDT POCT GLUCOSE BLOOD Routine 02/24/2025 8: 25 PM EDT OXYGEN THERAPY, ADULT Routine 02/24/2025 8:00 PM EDT POCT GLUCOSE BLOOD Routine 02/24/2025 3: 31 PM EDT POCT GLUCOSE BLOOD Routine 02/24/2025 8: 50 AM EDT OXYGEN THERAPY, ADULT Routine 02/24/2025 8:01 AM EDT CBC WITH AUTO DIFFERENTIAL Routine 02/24/2025 5:42 AM EDT PHOSPHORUS Routine 02/24/2025 5:42 AM EDT MAGNESIUM Routine 02/24/2025 5:42 AM EDT BASIC METABOLIC PANEL Routine 02/24/2025 5:42 AM EDT CBC AND DIFFERENTIAL Routine 02/24/2025 5:42 AM EDT OXYGEN THERAPY, ADULT Routine 02/23/2025 8:00 PM EDT POCT GLUCOSE BLOOD Routine 02/23/2025 4: 05 PM EDT POCT GLUCOSE BLOOD Routine 02/23/2025 11:01 AM EDT POCT GLUCOSE BLOOD Routine 02/23/2025 8: 14 AM EDT OXYGEN THERAPY, ADULT Routine 02/23/2025 8:02 AM EDT CBC WITH AUTO DIFFERENTIAL Routine 02/23/2025 6:03 AM EDT CBC AND DIFFERENTIAL Routine 02/23/2025 6:03 AM EDT PHOSPHORUS Routine 02/23/2025 6:03 AM EDT BASIC METABOLIC PANEL Routine 02/23/2025 6:03 AM EDT MAGNESIUM Routine 02/23/2025 6:03 AM EDT POCT GLUCOSE BLOOD Routine 02/23/2025 12:36 AM EDT POCT GLUCOSE BLOOD Routine 02/22/2025 8: 44 PM EDT OXYGEN THERAPY, ADULT Routine 02/22/2025 8:00 PM EDT POCT GLUCOSE BLOOD Routine 02/22/2025 3: 19 PM EDT POCT GLUCOSE BLOOD Routine 02/22/2025 10:26 AM EDT OXYGEN THERAPY, ADULT Routine 02/22/2025 8:02 AM EDT PHOSPHORUS Routine 02/22/2025 5:14 AM EDT BASIC METABOLIC PANEL Routine 02/22/2025 5:14 AM EDT MAGNESIUM Routine 02/22/2025 5:14 AM EDT LAVENDER - EDTA Routine 02/22/2025 5:11 AM EDT EXTRA TUBES Routine 02/22/2025 5:11 AM EDT POCT GLUCOSE BLOOD Routine 02/22/2025 5: 08 AM EDT POCT GLUCOSE BLOOD Routine 02/21/2025 8: 03 PM EDT OXYGEN THERAPY, ADULT Routine 02/21/2025 8:00 PM EDT POCT GLUCOSE BLOOD Routine 02/21/2025 3: 15 PM EDT POCT GLUCOSE BLOOD Routine 02/21/2025 1: 12 PM EDT POCT GLUCOSE BLOOD Routine 02/21/2025 8: 58 AM EDT OXYGEN THERAPY, ADULT Routine 02/21/2025 8:02 AM EDT LAVENDER - EDTA Routine 02/21/2025 5:43 AM EDT EXTRA TUBES Routine 02/21/2025 5:43 AM EDT CALCIUM, IONIZED Routine 02/21/2025 5:43 AM EDT PHOSPHORUS Routine 02/21/2025 5:43 AM EDT BASIC METABOLIC PANEL Routine 02/21/2025 5:43 AM EDT MAGNESIUM Routine 02/21/2025 5:43 AM EDT POCT GLUCOSE BLOOD Routine 02/21/2025 4: 05 AM EDT POCT GLUCOSE BLOOD Routine 02/20/2025 9: 24 PM EDT OXYGEN THERAPY, ADULT Routine 02/20/2025 8:01 PM EDT POCT GLUCOSE BLOOD Routine 02/20/2025 4: 04 PM EDT POCT GLUCOSE BLOOD Routine 02/20/2025 11:08 AM EDT EGD Routine 02/20/2025 9:26 AM EDT Nausea and vomiting, unspecified vomiting type TISSUE EXAM Routine 02/20/2025 9:11 AM EDT Nausea and vomiting, unspecified vomiting type Epigastric pain TH AN ENDOTRACHEAL(NO CHARGE) Routine 02/20/2025 9:03 AM EDT OXYGEN THERAPY, ADULT Routine 02/20/2025 8:27 AM EDT OXYGEN THERAPY, ADULT Routine 02/20/2025 8:27 AM EDT POCT GLUCOSE BLOOD Routine 02/20/2025 7: 44 AM EDT LAVENDER - EDTA Routine 02/20/2025 5:18 AM EDT EXTRA TUBES Routine 02/20/2025 5:18 AM EDT TRIGLYCERIDES Routine 02/20/2025 5:18 AM EDT PHOSPHORUS Routine 02/20/2025 5:18 AM EDT BASIC METABOLIC PANEL Routine 02/20/2025 5:18 AM EDT MAGNESIUM Routine 02/20/2025 5:18 AM EDT POCT GLUCOSE BLOOD Routine 02/20/2025 12:56 AM EDT POCT GLUCOSE BLOOD Routine 02/19/2025 8: 24 PM EDT POCT GLUCOSE BLOOD Routine 02/19/2025 4: 15 PM EDT POCT GLUCOSE BLOOD Routine 02/19/2025 10:48 AM EDT POCT GLUCOSE BLOOD Routine 02/19/2025 8: 02 AM EDT CBC WITH AUTO DIFFERENTIAL Routine 02/19/2025 6:04 AM EDT PHOSPHORUS Routine 02/19/2025 6:04 AM EDT MAGNESIUM Routine 02/19/2025 6:04 AM EDT BASIC METABOLIC PANEL Routine 02/19/2025 6:04 AM EDT CBC AND DIFFERENTIAL Routine 02/19/2025 6:04 AM EDT ECG ANNOTATED 02/19/2025 POCT GLUCOSE BLOOD Routine 02/18/2025 8: 17 PM EDT POCT GLUCOSE BLOOD Routine 02/18/2025 11:08 AM EDT POCT GLUCOSE BLOOD Routine 02/18/2025 9: 25 AM EDT POCT GLUCOSE BLOOD Routine 02/18/2025 8: 13 AM EDT CBC WITH AUTO DIFFERENTIAL Routine 02/18/2025 5:37 AM EDT PHOSPHORUS Routine 02/18/2025 5:37 AM EDT MAGNESIUM Routine 02/18/2025 5:37 AM EDT BASIC METABOLIC PANEL Routine 02/18/2025 5:37 AM EDT CBC AND DIFFERENTIAL Routine 02/18/2025 5:37 AM EDT ECG 12-LEAD STAT 02/17/2025 10:[address] ABDOMEN PELVIS W CONTRAST STAT 02/17/2025 4:57 AM EDT POC , URINE DIAGNOSTIC STAT 02/17/2025 4:24 AM EDT MAGNESIUM Add-On 02/17/2025 3:36 AM EDT CBC WITH AUTO DIFFERENTIAL STAT 02/17/2025 3:36 AM EDT LIPASE STAT 02/17/2025 3:36 AM EDT COMPREHENSIVE METABOLIC PANEL STAT 02/17/2025 3:36 AM EDT CBC AND DIFFERENTIAL STAT 02/17/2025 3:36 AM EDT XR UGI W AIR CONTRAST Routine 01/23/2025 [...] AND DIFFERENTIAL STAT 01/20/2025 1:24 PM EDT LIPID PANEL Routine 05/21/2023 HM HPV Routine 09/28/2022 HM HEPATITIS C SCREENING Routine 01/27/2022 HM HIV SCREENING Routine 01/27/2022 from Last 3 Months or Most Recently Relevant to Health Maintenance Results * SST tube (04/16/2025 12:00 AM EDT) Only the most recent of3 resultswithin the time period is included. Extra Tube Hold for add-ons. 04/16/2025 8:01 PM EDT [facility] Comment:Auto resulted. Blood Venous blood specimen / Unknown 04/16/2025 04/16/2025 6:35 PM EDT us Dayana Frost MD LAB BLOOD ORDERABLES Fi nal Result [facility] [address] [place] [address], [place] [phone] * (ABNORMAL) CBC auto differential (04/16/2025 12:00 AM EDT) Only the most recent of37 resultswithin the time period is included. WBC 10.3 4.8 - 10.8 K/mcL LAB HEMETOLOGY METHOD 04/16[facility]25 [facility] RBC 3.70(L) 3.80 - 4.80 M/mcL LAB HEMETOLOGY METHOD 04/16/2025 7:07 [facility] Hemoglobin 11.3(L) 11.5 - 16.0 g/dL LAB HEMETOLOGY METHOD 04/16/2025 7:07 PM [facility] Hematocrit 36.5 35.0 - 47.0 % LAB HEMETOLOGY METHOD 04/16/2025 7:07 [facility] MCV 97.9 79.0 - 98.0 FL LAB HEMETOLOGY METHOD 04/16/2025 7:07 PM [facility] MCH 30.3 27.0 - 32.0 pcg LAB HEMETOLOGY METHOD 04/16/2025 7:07 PM [facility] MCHC 31.0(L) 32.0 - 37.0 g/dL LAB HEMETOLOGY METHOD 04/16/2025 7:07 PM [facility] RDW 16.4(H) 11.0 - 15.0 % LAB HEMETOLOGY METHOD 04/16/2025 7:07 PM [facility] Platelets 359 130 - 400 K/mcL LAB HEMETOLOGY METHOD 04/16/2025 7:07 PM [facility] MPV 10.2 7.0 - 11.0 FL LAB HEMETOLOGY METHOD 04/16/2025 7:07 PM [facility] NRBC 0.0 <1.0 % LAB HEMETOLOGY METHOD 04/16/2025 7:07 PM [facility] NRBC Absolute 0.00 <0.10 K/mcL LAB HEMETOLOGY METHOD 04/16/2025 7:07 PM [facility] Neutrophils Relative 58.7 % LAB HEMETOLOGY METHOD 04/16/2025 7:07 PM [facility] Lymphocytes Relative 32.5 % LAB HEMETOLOGY METHOD 04/16/2025 7:07 PM [facility] Monocytes Relative 4.8 % LAB HEMETOLOGY METHOD 04/16/2025 7:07 PM [facility] Eosinophils Relative 2.4 % LAB HEMETOLOGY METHOD 04/16/2025 7:07 PM [facility] Basophils Relative 1.2 % LAB HEMETOLOGY METHOD 04/16/2025 7:07 PM [facility] Immature Granulocytes Relative 0.4 % LAB HEMETOLOGY METHOD 04/16/2025 7:07 PM [facility] Neutrophils Absolute 6.06 1.50 - 7.00 K/mcL LAB HEMETOLOGY METHOD 04/16/2025 7:07 PM [facility] Lymphocytes Absolute 3.36 1.00 - 5.00 K/mcL LAB HEMETOLOGY METHOD 04/16/2025 7:07 PM [facility] Monocytes Absolute 0.50 0.20 - 1.00 K/mcL LAB HEMETOLOGY METHOD 04/16/2025 7:07 PM EDT [facility] Eosinophils Absolute 0.25 0.00 - 0.50 K/[facility] LAB HEMETOLOGY METHOD 04/16/2025 7:07 PM EDT [facility] Basophils Absolute 0.12 0.00 - 0.20 K/[facility] LAB HEMETOLOGY METHOD 04/16/2025 7:07 PM EDT [facility] Immature Granulocytes Absolute 0.04(H) 0.00 - 0.03 K/[facility] LAB HEMETOLOGY METHOD 04/16/2025 7:07 PM EDT [facility] Blood Venous blood specimen / Unknown 04/16/2025 04/16/2025 6:35 PM EDT us Dayana Frost MD LAB BLOOD ORDERABLES Fi nal Result Performing Organization Address City/[facility]/ZIP Co de Phone Number [facility] [address] [place] [address], [place] [phone] * Triglycerides (04/16/2025 12:00 AM EDT) Only the most recent of9 resultswithin the time period is included. Triglycerides 88 0 - 150 mg/dL LAB CHEMISTRY METHOD 04/16/2025 7:13 PM EDT [facility] Blood Venous blood specimen / Unknown 04/16/2025 04/16/2025 6:35 PM EDT us Dayana Frost MD LAB BLOOD ORDERABLES Fi nal Result Performing Organization Address City/[facility]/ZIP Co de Phone Number [facility] [address] [place] [address], [place] [phone] * Phosphorus (04/16/2025 12:00 AM EDT) Only the most recent of42 resultswithin the time period is included. Phosphorus 3.6 2.5 - 4.5 mg/dL LAB CHEMISTRY METHOD 04/16/2025 7:13 PM EDT [facility] Blood Venous blood specimen / Unknown 04/16/2025 04/16/2025 6:35 PM EDT us Dayana Frost MD LAB BLOOD ORDERABLES Fi nal Result Performing Organization Address City/[facility]/ZIP Co de Phone Number [facility] [address] [place] [address], [place] [phone] * Magnesium (04/16/2025 12:00 AM EDT) Only the most recent of45 resultswithin the time period is included. Magnesium 2.2 1.9 - 2.6 mg/dL LAB CHEMISTRY METHOD 04/16/2025 7:13 PM EDT [facility] Blood Venous blood specimen / Unknown 04/16/2025 04/16/2025 6:35 PM EDT us Dayana Frost MD LAB BLOOD ORDERABLES Fi nal Result Performing Organization Address [facility] Co de Phone Number [facility] [address] [place] [address], [place] [phone] * (ABNORMAL) Comprehensive metabolic panel (04/16/2025 12:00 AM EDT) Only the most recent of11 resultswithin the time period is included. Sodium 137 133 - 145 mmol/L LAB CHEMISTRY METHOD 04/16/2025 7:15 PM EDT [facility] Potassium 3.6 3.5 - 5.5 mmol/L LAB CHEMISTRY METHOD 04/16/2025 7:15 PM EDT [facility] Chloride 102 96 - 110 mmol/L LAB CHEMISTRY METHOD 04/16/2025 7:15 PM [facility] CO2 22 21 - 32 mmol/L LAB CHEMISTRY METHOD 04/16/2025 7:15 PM [facility] Anion Gap 13(H) 3 - 11 LAB CHEMISTRY METHOD 04/16/2025 7:15 PM [facility] Glucose 49(L) 70 - 100 mg/dL LAB CHEMISTRY METHOD 04/16/2025 7:15 PM [facility] BUN 13 5 - 25 mg/dL LAB CHEMISTRY METHOD 04/16/2025 7:15 PM [facility] Creatinine 0.63 0.50 - 1.10 mg/dL LAB CHEMISTRY METHOD 04/16/2025 7:15 PM [facility] eGFR 121 >=60 mL/min/1. 73m2 LAB CHEMISTRY METHOD 04/16/2025 7:15 PM [facility] Comment:Calculation based on the Chronic Kidney Disease Epidemiology Collaboration (CKD-EPI) equation refit without adjustment for race. BUN/Creatinine Ratio 20.6 LAB CHEMISTRY METHOD 04/16/2025 7:15 PM [facility] Calcium 9.3 8.5 - 10.5 mg/dL LAB CHEMISTRY METHOD 04/16/2025 7:15 PM [facility] AST (SGOT) 20 10 - 42 unit/L LAB CHEMISTRY METHOD 04/16/2025 7:15 PM [facility] ALT (SGPT) 22 10 - 60 unit/L LAB CHEMISTRY METHOD 04/16/2025 7:15 PM [facility] Alkaline Phosphatase 151(H) 42 - 121 unit/L LAB CHEMISTRY METHOD 04/16/2025 7:15 PM [facility] Total Protein 8.4(H) 6.0 - 8.0 g/dL LAB CHEMISTRY METHOD 04/16/2025 7:15 PM [facility] Albumin 3.2 3.2 - 5.0 g/dL LAB CHEMISTRY METHOD 04/16/2025 7:15 PM EDT [facility] Total Bilirubin 0.3 0.0 - 1.4 mg/dL LAB CHEMISTRY METHOD 04/16/2025 7:15 PM EDT [facility] Blood Venous blood specimen / Unknown 04/16/2025 04/16/2025 6:35 PM EDT us Dayana Frost MD LAB BLOOD ORDERABLES Fi nal Result [facility] [address] [place] [address], * Gastrointestinal pathogens molecular study (04/14/2025 12:00 AM EDT) Campylobacter Detection by PCR Not Detected Not Detected LAB MICROBIOLOGY METHOD 5 11:49 AM EDT [facility] Plesiomonas shigelloides Detection by PCR Not Detected Not Detected LAB MICROBIOLOGY METHOD 5 11:49 AM EDT [facility] Salmonella Detection by PCR Not Detected Not Detected LAB MICROBIOLOGY METHOD 5 11:49 AM EDT [facility] Vibrio Detection by PCR Not Detected Not Detected LAB MICROBIOLOGY METHOD 5 11:49 AM EDT [facility] Vibrio cholerae Detection by PCR Not Detected Not Detected LAB MICROBIOLOGY METHOD 5 11:49 AM EDT [facility] Yersinia enterocolitica Detection by PCR Not Detected Not Detected LAB MICROBIOLOGY METHOD 5 11:49 AM EDT [facility] Enteroaggregative E coli EAEC Detection by PCR Not Detected Not Detected LAB MICROBIOLOGY METHOD 5 11:49 AM EDT [facility] Enteropathogenic E coli EPEC Detection Not Detected Not Detected LAB MICROBIOLOGY METHOD 5 11:49 AM EDT [facility] Enterotoxigenic E coli ETEC LTST Detection Not Detected Not Detected LAB MICROBIOLOGY METHOD 5 11:49 AM [facility] Shiga-like toxin producing E coli STEC STX1 STX2 Det Not Detected Not Detected LAB MICROBIOLOGY METHOD 5 11:49 AM [facility] Shigella Enteroinvasive E coli EIEC Detection Not Detected Not Detected LAB MICROBIOLOGY METHOD 5 11:49 AM [facility] Cryptosporidium Detection by PCR Not Detected Not Detected LAB MICROBIOLOGY METHOD 5 11:49 AM [facility] Cyclospora cayetanensis Detection by PCR Not Detected Not Detected LAB MICROBIOLOGY METHOD 5 11:49 AM [facility] Entamoeba histolytica Detection by PCR Not Detected Not Detected LAB MICROBIOLOGY METHOD 5 11:49 AM [facility] Giardia lamblia Detection by PCR Not Detected Not Detected LAB MICROBIOLOGY METHOD 5 11:49 AM [facility] Adenovirus F 40 41 Detection by PCR Not Detected Not Detected LAB MICROBIOLOGY METHOD 5 11:49 AM [facility] Astrovirus Detection by PCR Not Detected Not Detected LAB MICROBIOLOGY METHOD 5 11:49 AM [facility] Norovirus GI GII Detection by PCR Not Detected LAB MICROBIOLOGY METHOD 5 11:49 AM [facility] Sapovirus Detection by PCR Not Detected Not Detected LAB MICROBIOLOGY METHOD 5 11:49 AM [facility] Rotavirus A Detection by PCR Not Detected Not Detected LAB MICROBIOLOGY METHOD 5 11:49 AM [facility] Stool Rectum structure / Unknown Non-blood Collection / Unknown 04/14/2025 04/14/2025 10:17 AM [facility] - 04/14/2025 11:49 AM EDT PCR [...] AL ORDERABLES Final Result Performing Organization Address City/[facility]/ZIP Co de Phone Number [facility] [address] [place] [address], * POCT Glucose, blood (04/13/2025 9:47 AM EDT) Only the most recent of83 resultswithin the time period is included. Glucose POCT 91 70 - 100 mg/dL 04/13/2025 9:47 AM EDT [facility] Blood Capillary blood specimen / Unknown 04/13/2025 9:47 AM EDT 04/13/2025 9:48 AM EDT Brant Beasley MD LAB POINT OF CA RE TEST DOCKED DEVICE UNSOLICITED RESULTS Final Result Performing Organization Address City/[facility]/ZIP Co de Phone Number [facility] [address] [place] [address], * Calcium, ionized (if available) (04/13/2025 5:22 AM EDT) Only the most recent of12 resultswithin the time period is included. Calcium Ionized 5.28 4.50 - 5.30 mg/dL 04/13/2025 6:40 AM EDT [facility] Blood Venous blood specimen / Unknown Venipuncture / Unknown 04/13/2025 5:22 AM EDT 04/13/2025 6:30 AM EDT us Awilda LINDO LAB BLOOD ORDERABLES Final Result [facility] [address] [place] [address], [place] [phone] * (ABNORMAL) Basic metabolic panel (04/13/2025 5:22 AM EDT) Only the most recent of39 resultswithin the time period is included. Sodium 139 133 - 145 mmol/L LAB CHEMISTRY METHOD 04/13/2025 7:20 AM [facility] Potassium 4.1 3.5 - 5.5 mmol/L LAB CHEMISTRY METHOD 04/13/2025 7:20 AM [facility] Chloride 108 96 - 110 mmol/L LAB CHEMISTRY METHOD 04/13/2025 7:20 AM [facility] CO2 24 21 - 32 mmol/L LAB CHEMISTRY METHOD 04/13/2025 7:20 AM [facility] Anion Gap 7 3 - 11 LAB CHEMISTRY METHOD 04/13/2025 7:20 AM [facility] Glucose 250(H) 70 - 100 mg/dL LAB CHEMISTRY METHOD 04/13/2025 7:20 AM [facility] BUN 14 5 - 25 mg/dL LAB CHEMISTRY METHOD 04/13/2025 7:20 AM [facility] Creatinine 0.38(L) 0.50 - 1.10 mg/dL LAB CHEMISTRY METHOD 04/13/2025 7:20 AM [facility] eGFR 137 >=60 mL/min/1. 73m2 LAB CHEMISTRY METHOD 04/13/2025 7:20 AM [facility] Comment:Calculation based on the Chronic Kidney Disease Epidemiology Collaboration (CKD-EPI) equation refit without adjustment for race. BUN/Creatinine Ratio 36.8 LAB CHEMISTRY METHOD 04/13/2025 7:20 AM EDT [facility] Calcium 8.3(L) 8.5 - 10.5 mg/dL LAB CHEMISTRY METHOD 04/13/2025 7:20 AM EDT [facility] Blood Venous blood specimen / Unknown Venipuncture / Unknown 04/13/2025 5:22 AM EDT 04/13/2025 6:30 AM EDT Awilda LINDO LAB BLOOD ORDERABLES Final Result Performing Organization Address [facility] de Phone Number [facility] [address] [place] [address], [place] [phone] * (ABNORMAL) Vancomycin, trough Please draw before 0300 (04/13/2025 2:00 AM EDT) Only the most recent of5 resultswithin the time period is included. Vancomycin Trough 22.2(H) 10.0 - 20.0 mcg/mL LAB CHEMISTRY METHOD 04/13/2025 3:16 AM EDT [facility] Blood Venous blood specimen / Unknown Venipuncture / Unknown 04/13/2025 2:00 AM EDT 04/13/2025 2:07 AM EDT Zeferino LINDO LAB BLOOD ORDERABLES Final Re sult Performing Organization Address [facility]/ZIP Co de Phone Number [facility] [address] [place] [address], [place] [phone] * COLONOSCOPY Anesthesia - MAC; [facility] ENDOSCOPY (04/12/2025 4:17 PM EDT) Anatomical Region Laterality Modality Other 04/12/2025 3:41 PM EDT Impressions 04/12/2025 4:21 PM EDT - The entire examined colon is normal. Biopsied. - The examined portion of the ileum was normal. Recommendation: - Await pathology results. - Continue present medications. Narrative 04/12/2025 4:21 PM EDT [facility] Patient Name: Jia Valdez Procedure [...] appeared normal. Procedure Code(s): --- Professional --- 52971, Colonoscopy, flexible; with biopsy, single or multiple Diagnosis Code(s): --- Professional --- K52.9, Noninfective gastroenteritis and colitis, unspecified CPT copyright 2020 [employer]. All rights reserved. The codes documented in this report are preliminary and upon nurses educator review may be revised to meet current compliance requirements. Pietro Mayer MD 04/12/2025 4:21:01 PM This report has been signed electronically.Pietro Mayer MD Number of Addenda: 0 Note Initiated On: 04/12/2025 3:41 PM Scope In: Scope Out: Endoscopy Department at [facility] - [address] [place] [id number] Procedure Note Pietro Mayer MD - 04/12/2025 [facility] GI Patient Name: Jia Valdez Procedure Date: 04/12/2025 3:41 PM Date of : 1990 Age: 34 Room: ROOM 14 Gender: Female Note Status: Finalized Attending MD: Pietro Mayer MD, Procedure Date No Time: 04/12/2025 Procedure: Colonoscopy Indications: Chronic diarrhea Providers: Pietro Mayer MD Referring MD: Pietor Mayer MD Medicines: Propofol per Anesthesia Complications: [...] appeared normal. Procedure Code(s): --- Professional --- 56431, Colonoscopy, flexible; with biopsy, singleor multiple Diagnosis Code(s): --- Professional --- K52.9, Noninfective gastroenteritis and colitis, unspecified CPT copyright 2020 [employer]. All rights reserved. The codes documented in this report are preliminary and upon nurses educator reviewmay be revised to meet current compliance requirements. Pietro Mayer MD 04/12/2025 4:21:01 PM This report has been signed electronically.Pietro Mayer MD Number of Addenda: 0 Note Initiated On: 04/12/2025 3:41 PM Scope In: Scope Out: Endoscopy Department at [facility] - [address] [place] [id number] IMPRESSION: - The entire examined colon is normal. Biopsied. - The examined portion of the ileum was normal. Recommendation: - Await pathology results. - Continue present medications. us Pietro Mayer MD GI~PROCEDURE ORDERABLES Fin al Result * Tissue exam (04/12/2025 4:15 PM EDT) Only the most recent of4 resultswithin the time period is included. Final Diagnosis A. Colon, random biopsies: - Colonic mucosa with non-specific, mild superficial lymphoplasmacytos is. - Negative for architectural distortion, increased intraepithelial lymphocytes, basement membrane thickening, acute inflammation, epithelial surface injury, and granulomas. 04/16/2025 10:58 AM EDT [facility] at 1058 EDT Gross Description A. Colon, random biopsies: Labeled colon random . Received in formalin are seven irregular alas mucosal tissue fragments, each measuring approximately 0.2 cm in greatest dimension, which are wrapped in paper and submitted in toto in one cassette, seven pieces, multiple levels on one slide. NOREEN 04/16/2025 10:58 AM EDT [facility] Disclaimer Unless otherwise specified, all tissue is 10% NB formalin fixed and paraffin embedded. 04/16/2025 10:58 AM EDT [facility] Tissue Colon structure / Unknown 04/12/2025 4:15 PM EDT 04/13/2025 8:48 AM EDT Pietro Mayer MD LAB PATHOLOGY ORDERABLES Fi nal Result [facility] [address] [place] [address], * ECG 12 lead (04/12/2025 9:37 AM EDT) Only the most recent of5 resultswithin the time period is included. Ventricular Rate ECG 95 BPM GEMUSE Atrial Rate 95 BPM GEMUSE P-R Interval 160 ms GEMUSE QRS Duration 72 ms GEMUSE Q-T Interval 366 ms GEMUSE QTc 459 ms GEMUSE P Wave [place] 62 degrees GEMUSE R [place] -20 degrees GEMUSE T [place] 28 degrees GEMUSE ECG Interpretation Normal sinus rhythm Normal ECG When compared with ECG of 26-MAR-2025 17:10, Premature ventricular complexes are no longer Present Confirmed by MATT LOPEZ ([id number]) on 04/12/2025 6:03:46 PM GEMUSE 04/12/2025 9:37 AM EDT 04/12/2025 6:03 PM EDT us Awilda LINDO ECG ORDERABLES Final Resul t Performing Organization Address City/[facility]/ZIP Co de Phone Number KRISH * Thyroid stimulating hormone with reflex to free t4 and free t3 (04/12/2025 6:03 AM EDT) TSH 1.29 0.40 - 4.00 mcIU/mL LAB CHEMISTRY METHOD 04/12/2025 10:02 AM EDT [facility] Blood Blood sample taken from central line / Unknown Venipuncture / Unknown 04/12/2025 6:03 AM EDT 04/12/2025 6:19 AM EDT us Awilda LINDO LAB BLOOD ORDERABLES Final Result Performing Organization Address [facility] Co de Phone Number [facility] [address] [place] [address], [place] [phone] * CT Head wo Contrast (04/11/2025 6:14 [...] B12 and folate (04/11/2025 12:09 PM EDT) Pathologist [facility] Vitamin B-12 778 250 - 900 pcg/mL LAB CHEMISTRY METHOD 04/11/2025 4:18 PM EDT [facility] Folate 16.2 2.8 - 17.0 ng/ml LAB CHEMISTRY METHOD 04/11/2025 4:18 PM EDT [facility] Blood Venous blood specimen / Unknown Venipuncture / Unknown 04/11/2025 12:09 PM EDT 04/11/2025 12:40 PM EDT Katelin LINDO LAB BLOOD ORDERABLES Final Re sult [facility] [address] [place] [address], * (ABNORMAL) Immunoglobulin IgA (04/11/2025 12:09 PM EDT) IgA 397(H) 61 - 348 mg/dL LAB CHEMISTRY METHOD 04/11/2025 1:21 PM EDT [facility] Blood Venous blood specimen / Unknown Venipuncture / Unknown 04/11/2025 12:09 PM EDT 04/11/2025 12:40 PM EDT us Pietro Mayer MD LAB BLOOD ORDERABLES Final Result [facility] [address] [place] [address], [place] [phone] * XR UGI w Single Contrast (04/10/2025 9:54 AM EDT) Only the most recent of2 resultswithin the time period is included. Anatomical Region Laterality Modality Body Radiographic Abbie [...] Signed Date: 04/10/2025 11:06 ET Workstation ID: [id number] Transcribed By: Self Edit Transcribed Date: 04/10/2025 10:52 ET Resident/PA/RADIO DIVISION OFFICER: Willow Oliver Narrative 04/10/2025 11:06 AM EDT FINDINGS: Single contrast UGI performed. COMPARISON: Upper GI imaging February 26, 2025 HISTORY: Patient is a 34-year-old female with history of gastric bypass with reversal. Gastric-gastric anastomosis complicated by stricture. Approximately 18 days postop correction of an anastomotic stricture. PAPER INSPECTOR radiographs: Plant Controller AP radiograph of the abdomen obtained. Bowel [...] days postop correction of an anastomotic stricture. PAPER INSPECTOR radiographs: Plant Controller AP radiograph of the abdomen obtained. Bowel [...] Signed Date: 04/10/2025 11:06 ET Workstation ID: [id number] Transcribed By: Self Edit Transcribed Date: 04/10/2025 10:52 ET Resident/PA/RADIO DIVISION OFFICER: Willow Oliver Mela LINDO IMStephon FLUOROSCOPY PROCEDURES Fi nal Result * CT Abdomen Pelvis w Contrast (04/09/2025 10:47 PM EDT) Only the most recent of4 resultswithin the time period is included. Anatomical [...] Lactate, with reflex (04/09/2025 9:59 PM EDT) Pathologist [facility] LACTIC ACID 1.0 0.4 - 2.0 mmol/L LAB CHEMISTRY METHOD 04/09/2025 11:01 PM EDT [facility] Blood Venous blood specimen / Unknown Venipuncture / Unknown 04/09/2025 9:59 PM EDT 04/09/2025 10:17 PM EDT Claribel LINDO LAB BLOOD ORDERABLES Fin al Result [facility] [address] [place] [address], * Blood culture (04/09/2025 9:59 PM EDT) Only the most recent of2 resultswithin the time period is included. Culture, Blood No growth at 5 days LAB MICROBIOLOGY METHOD 04/14/2025 11:01 PM EDT [facility] Blood Venous blood specimen / Unknown Venipuncture / Unknown 04/09/2025 9:59 PM EDT 04/09/2025 10:16 PM EDT Claribel LINDO LAB MICROBIOLOGY - GENER AL ORDERABLES Final Result Performing Organization Address City/[facility]/ZIP Co de Phone Number [facility] [address] [place] [address], [place] [phone] * ED Wound Care (04/08/2025 1:13 AM EDT) Shanti Beard MD - 04/08/2025 1:13 AM EDT GUICHO Cason 04/08/2025 1:14 AM ED Wound Care Date/Time: 04/08/2025 1:13 AM Performed by: GUICHO Cason Authorized by: Shanti Reyes MD Consent: Consent obtained: Verbal Consent given by: Patient Risks, benefits, and alternatives were discussed: yes Risks discussed: Bleeding and pain Alternatives discussed: No treatment [place] protocol: Patient identity confirmed: Verbally with patient Sedation: Sedation type: None Anesthesia: Anesthesia method: None Procedure details: Indications: open wounds Wound location: Abdomen. Dressing: Dressing: Sterile dressing-Aquacel. Wrapped with: Nonadherent, taping. Post-procedure details: Procedure completion: Tolerated Shanti Reyes MD IN CLINIC/BEDSIDE ORDERABLES Fin al Result * hCG, serum, qualitative (04/07/2025 9:30 PM EDT) hCG Qual Negative Negative 04/09/2025 9:19 PM EDT [facility] Blood Venous blood specimen / Unknown Venipuncture / Unknown 04/07/2025 9:30 PM EDT 04/07/2025 9:36 PM EDT Claribel LINDO LAB BLOOD ORDERABLES Fin al Result Performing Organization Address [facility]/ZIP Co de Phone Number [facility] [address] [place] [address], [place] [phone] * Lactate (04/07/2025 9:30 PM EDT) Lactate 1.1 0.4 - 2.0 mmol/L LAB CHEMISTRY METHOD 04/07/2025 10:09 PM EDT [facility] Blood Venous blood specimen / Unknown Venipuncture / Unknown 04/07/2025 9:30 PM EDT 04/07/2025 9:34 PM EDT us Claribel LINDO LAB BLOOD ORDERABLES Fin al Result [facility] [address] [place] [address], [place] [phone] * [place] Abdomen Limited (04/03/2025 1:00 PM EDT) Anatomical Region Laterality Modality Body Ultrasound 04/03/2025 1:06 PM EDT Impressions 04/03/2025 1:08 PM EDT Impression: Cellulitis involving the skin and subcutaneous fat of the anterior abdomen in the area of clinical concern. Teleangelo LINDO ([id number]) -------- FINAL REPORT -------- Dictated By: Itzel Jones Dictated Date: 04/03/2025 13:06 ET Assigned Physician: Itzel Jones Reviewed and Electronically Signed By: Itzel Jones Signed Date: 04/03/2025 13:08 ET Workstation ID: [id number] Transcribed By: Self Edit Transcribed Date: 04/03/2025 13:06 ET Narrative 04/03/2025 1:08 PM EDT History: Hard painful area around umbilicus. Recent abscess drainage from this area. Comparison: CT abdomen/pelvis 03/28/25 Findings: High resolution real-time imaging of the skin and subcutaneous soft tissues of the anterior abdomen was performed, targeted to the area of clinical concern as directed by the patient. Diffuse thickening of the skin and subcutaneous fat is identified. There is increased vascularity throughout the structures, consistent with hyperemia. No residual fluid collection is seen. Procedure Note Itzel Jones MD - 04/03/2025 History: Hard painful area around umbilicus. Recent abscess drainage fromthis area. Comparison: CT abdomen/pelvis 03/28/25 Findings: High resolution real-time imaging of the skin and subcutaneous softtissues of the anterior abdomen was performed, targeted to the area ofclinical concern as directed by the patient. Diffuse thickening of the skin and subcutaneous fat is identified. Thereis increased vascularity throughout the structures, consistent withhyperemia. No residual fluid collection is seen. IMPRESSION: Impression: Cellulitis involving the skin and subcutaneous fat of the anterior abdomenin the area of clinical concern. Teleangelo LINDO ([id number]) -------- FINAL REPORT -------- Dictated By: Itzel Jones Dictated Date: 04/03/2025 13:06 ET Assigned Physician: Itzel Jones Reviewed and Electronically Signed By: Itzel Jones Signed Date: 04/03/2025 13:08 ET Workstation ID: [id number] Transcribed By: Self Edit Transcribed Date: 04/03/2025 13:06 ET us Gema LINDO IMG US PROCEDURES Final Resu lt * (ABNORMAL) Manual differential (04/02/2025 6:44 AM EDT) Only the most recent of2 resultswithin the time period is included. Neutrophils % 87.0 % LAB HEMETOLOGY METHOD 04/02/2025 8:00 AM EDT [facility] Lymphocytes % 9.0 % LAB HEMETOLOGY METHOD 04/02/2025 8:00 AM EDT [facility] Monocytes % 0.0 % LAB HEMETOLOGY METHOD 04/02/2025 8:00 AM EDT [facility] Eosinophils % 3.0 % LAB HEMETOLOGY METHOD 04/02/2025 8:00 AM T [facility] Basophils % 2.0 % LAB HEMETOLOGY METHOD 04/02/2025 8:00 AM EDT [facility] Neutrophils Absolute Manual 9.40(H) 1.50 - 7.00 K/mcL LAB HEMETOLOGY METHOD 04/02/2025 8:00 AM EDT [facility] Lymphocytes Absolute 0.97(L) 1.00 - 5.00 K/[facility] LAB HEMETOLOGY METHOD 04/02/2025 8:00 AM EDT [facility] Monocytes Absolute Manual 0.00(L) 0.20 - 1.00 K/[facility] LAB HEMETOLOGY METHOD 04/02/2025 8:00 AM EDT [facility] Eosinophils Absolute Manual 0.32 0.00 - 0.50 K/[facility] LAB HEMETOLOGY METHOD 04/02/2025 8:00 AM EDT [facility] Basophils Absolute Manual 0.22(H) 0.00 - 0.20 K/[facility] LAB HEMETOLOGY METHOD 04/02/2025 8:00 AM EDT [facility] Rbc Morphology See comment( A) Consistent with indices, Normal for LAB HEMETOLOGY METHOD 04/02/2025 8:00 AM EDT [facility] Comment:RBC: Morphology agre es with CBC Platelet Morphology - WAM See Note(A) Normal [facility] 04/02/2025 8:00 AM EDT [facility] Comment:PLT: Normal Blood Venous blood specimen / Unknown Venipuncture / Unknown 04/02/2025 6:44 AM EDT 04/02/2025 6:58 AM EDT us Jie LINDO LAB BLOOD ORDERABLES Final R esult [facility] [address] [place] [address], * (ABNORMAL) Hepatic function panel (04/01/2025 5:50 AM EDT) Only the most recent of3 resultswithin the time period is included. Total Protein 4.8(L) 6.0 - 8.0 g/dL LAB CHEMISTRY METHOD 04/01/2025 7:26 AM [facility] Albumin 1.7(L) 3.2 - 5.0 g/dL LAB CHEMISTRY METHOD 04/01/2025 7:26 AM [facility] Comment:Results verified by repeat testing Total Bilirubin 0.1 0.0 - 1.4 mg/dL LAB CHEMISTRY METHOD 04/01/2025 7:26 AM [facility] Bilirubin, Direct <0.1 0.0 - 0.3 mg/dL LAB CHEMISTRY METHOD 04/01/2025 7:26 AM [facility] Bilirubin, Indirect LAB CHEMISTRY METHOD 04/01/2025 7:26 AM [facility] Comment:Unable to calculate Indirect Bilirubin. ALT (SGPT) 28 10 - 60 unit/L LAB CHEMISTRY METHOD 04/01/2025 7:26 AM [facility] AST (SGOT) 14 10 - 42 unit/L LAB CHEMISTRY METHOD 04/01/2025 7:26 AM [facility] Alkaline Phosphatase 117 42 - 121 unit/L LAB CHEMISTRY METHOD 04/01/2025 7:26 AM [facility] Blood Venous blood specimen / Unknown Venipuncture / Unknown 04/01/2025 5:50 AM EDT 04/01/2025 6:30 AM EDT us Gema LINDO LAB BLOOD ORDERABLES Final R esult [facility] [address] [place] [address], * (ABNORMAL) Culture wound with gram stain (03/29/2025 7:05 PM EDT) Culture, Wound Enterobacter cloacae complex(A) SACHI 04/01/2025 9:49 AM EDT [facility] Comment: The organism value for this result has been updated. These results have been appended to the previously preliminary verified report. This is an edited result. Previous organism was Gram negative bacilli on 03/30/2025 at 1439 EDT. Culture, Wound Methicillin-Sensiti ve Staphylococcus aureus(A) SACHI 04/01/2025 9:49 AM EDT [facility] Comment: Negative for PBP2a - indicates susceptible to Oxacillin The organism value for this result has been updated. These results have been appended to the previously preliminary verified report. Edited result: Previously reported as Staphylococcus aureus on 03/31/2025 at 1224 EDT. Culture, Wound Streptococcus viridans group(A) SACHI 04/01/2025 9:49 AM EDT [facility] Comment: Susceptibility testing not routinely performed. If further therapeutic information is required, please consult an infectious disease specialist. The organism value for this result has been updated. These results have been appended to the previously preliminary verified report. Gram Stain Result No Epithelial cells(A) 04/01/2025 9:49 AM [facility] Gram Stain Result Moderate Polymorphonuclear leukocytes(A) 04/01/2025 9:49 AM [facility] Gram Stain Result Moderate Gram negative bacilli(A) 04/01/2025 9:49 AM [facility] Gram Stain Result Few Gram positive cocci in pairs(A) 04/01/2025 9:49 AM [facility] Swab Abdomen / Unknown Non-blood Collection / Unknown 03/29/2025 7:05 PM EDT 03/29/2025 7:15 PM EDT Narrative Organism Antibiotic Method Susceptibility Enterobacter cloacae complex Amoxicillin/Clavulanate SACHI >=32 ug/ml: Resistant Enterobacter cloacae complex Cefoxitin SACHI >=64 ug/ml: Resistant Enterobacter cloacae complex Ceftazidime SACHI <=0.5 ug/ml: Susceptible Enterobacter cloacae complex Cefepime SACHI <=0.12 ug/ml: Susceptible Enterobacter cloacae complex Meropenem SACHI <=0.25 ug/ml: Susceptible Enterobacter cloacae complex Amikacin SACHI <=1 ug/ml: Susceptible Enterobacter cloacae complex Gentamicin SACHI <=1 ug/ml: Susceptible Enterobacter cloacae complex Ciprofloxacin SACHI <=0.06 ug/ml: Susceptible Enterobacter cloacae complex Levofloxacin SACHI <=0.12 ug/ml: Susceptible Enterobacter cloacae complex Trimethoprim/Sulfamethoxazo le SACHI <=20 ug/ml: Susceptible Methicillin-Sensitive Staphylococcus aureus Benzylpenicillin SACHI >=0.5 ug/ml: Resistant Methicillin-Sensitive Staphylococcus aureus Oxacillin SACHI 0.5 ug/ml: Susceptible Methicillin-Sensitive Staphylococcus aureus Gentamicin SACHI <=0.5 ug/ml: Susceptible Methicillin-Sensitive Staphylococcus aureus Ciprofloxacin SACHI <=0.5 ug/ml: Susceptible Methicillin-Sensitive Staphylococcus aureus Levofloxacin SACHI 0.25 ug/ml: Susceptible Methicillin-Sensitive Staphylococcus aureus Moxifloxacin SACHI <=0.25 ug/ml: Susceptible Methicillin-Sensitive Staphylococcus aureus Erythromycin SACHI <=0.25 ug/ml: Susceptible Methicillin-Sensitive Staphylococcus aureus Clindamycin SACHI <=0.25 ug/ml: Susceptible Methicillin-Sensitive Staphylococcus aureus Quinupristin/Dalfopristin SACHI <=0.25 ug/ml: Susceptible Methicillin-Sensitive Staphylococcus aureus Linezolid SACHI 2 ug/ml: Susceptible Methicillin-Sensitive Staphylococcus aureus Vancomycin SACHI <=0.5 ug/ml: Susceptible Methicillin-Sensitive Staphylococcus aureus Tetracycline SACHI <=1 ug/ml: Susceptible Methicillin-Sensitive Staphylococcus aureus Rifampin SACHI <=0.5 ug/ml: Susceptible Methicillin-Sensitive Staphylococcus aureus Trimethoprim/Sulfamethoxazo le SACHI <=10 ug/ml: Susceptible Awilda LINDO LAB MICROBIOLOGY - GENERAL ORD ERABLES Final Result [facility] [address] [place] [address], * CT Abdomen Pelvis wo Contrast (03/28/2025 8:49 PM EDT) Anatomical Region Laterality Modality Body Computed Tomogra phy 03/28/2025 9:22 PM EDT Impressions 03/28/2025 9:22 PM EDT 1. Diffuse fatty infiltration of the liver. 2. Interval development of fluid collection with gas in the anterior abdominal wall subcutaneous tissue on the right measuring 6.3 x 4.2 cm. Differential includes abscess versus infected hematoma. This document has been electronically signed by: Arianna Riggins MD on 03/28/2025 21:22:00 Narrative 03/28/2025 9:22 PM EDT INDICATION: s/p revision of GG anastomosis 03/23, leukocytosis, tachycardia, hypotension, abd cellulitis - rule out leak/other intra-abd pathology CT abdomen and pelvis without contrast Comparison: CT/KO/KS/SR - CT ABD PEL W CONTRAST - 03/15/25 09:14 EDT Findings: No consolidation or effusion. Diffuse fatty infiltration of the liver. Status post cholecystectomy No bowel obstruction, pneumoperitoneum, or pneumatosis. Interval development of fluid collection with gas in the anterior abdominal wall subcutaneous tissue on the right measuring 6.3 x 4.2 cm. Differential includes abscess versus infected hematoma. Pelvic contents unremarkable. Normal appendix. No acute fracture. Procedure Note Arianna Riggins MD - 03/28/2025 INDICATION: s/p revision of GG anastomosis 03/23, leukocytosis, tachycardia, hypotension, abd cellulitis - rule out leak/other intra-abd pathology CT abdomen and pelvis without contrast Comparison: CT/KO/KS/SR - CT ABD PEL W CONTRAST - 03/15/25 09:14 EDT Findings: No consolidation or effusion. Diffuse fatty infiltration of the liver. Status post cholecystectomy No bowel obstruction, pneumoperitoneum, or pneumatosis. Interval development of fluid collection with gas in the anterior abdominal wall subcutaneous tissue on the right measuring 6.3 x 4.2 cm. Differential includes abscess versus infected hematoma. Pelvic contents unremarkable. Normal appendix. No acute fracture. IMPRESSION: 1. Diffuse fatty infiltration of the liver. 2. Interval development of fluid collection with gas in the anterior abdominal wall subcutaneous tissue on the right measuring 6.3 x 4.2 cm. Differential includes abscess versus infected hematoma. This document has been electronically signed by: Arianna Riggins MD on 03/28/2025 21:22:[address] PROCEDURES Final Resul t * (ABNORMAL) RBC morphology review (03/28/2025 6:02 AM EDT) Only the most recent of2 resultswithin the time period is included. Rbc Morphology Consistent with indices Consistent with indices, Normal for [place] [facility] HEMETOLOGY METHOD 03/28/2025 9:38 AM EDT [facility] Platelet Morphology - WAM See Note(A) Normal LAB HEMETOLOGY METHOD 03/28/2025 9:38 AM EDT [facility] Comment:PLT: Normal Blood Venous blood specimen / Unknown Venipuncture / Unknown 03/28/2025 6:02 AM EDT 03/28/2025 7:52 AM EDT Mehnaz LINDO LAB BLOOD ORDERABLES Final Re sult Performing Organization Address [facility] Co de Phone Number [facility] [address] [place] [address], [place] [phone] * (ABNORMAL) C-reactive protein (03/28/2025 6:02 AM EDT) Only the most recent of2 resultswithin the time period is included. Pathologist [facility] C-Reactive Protein 23.60(H) <=0.50 mg/dL LAB CHEMISTRY METHOD 03/28/2025 8:29 PM EDT [facility] Comment:Results verified by repeat testing Blood Venous blood specimen / Unknown Venipuncture / Unknown 03/28/2025 6:02 AM EDT 03/28/2025 7:51 AM EDT Mello Rome DO LAB BLOOD ORDERABLES Final Res ult [facility] [address] [place] [address], [place] [phone] * (ABNORMAL) Iron and TIBC (03/26/2025 8:28 AM EDT) Iron 16(L) 40 - 150 mcg/dL LAB CHEMISTRY METHOD 03/26/2025 3:16 PM EDT [facility] TIBC 231(L) 250 - 450 mcg/dL LAB CHEMISTRY METHOD 03/26/2025 3:16 PM EDT [facility] Iron Saturation 7(L) 15 - 50 % LAB CHEMISTRY METHOD 03/26/2025 3:16 PM EDT [facility] Blood Venous blood specimen / Unknown Venipuncture / Unknown 03/26/2025 8:28 AM EDT 03/26/2025 9:07 AM EDT us Mehnaz LINDO LAB BLOOD ORDERABLES Final Re sult Performing Organization Address [facility]/ZIP Co de Phone Number [facility] [address] [place] [address], [place] [phone] * Ferritin (03/26/2025 8:28 AM EDT) [facility] Ferritin 86 8 - 252 ng/mL LAB CHEMISTRY METHOD 03/26/2025 3:01 PM EDT [facility] Blood Venous blood specimen / Unknown Venipuncture / Unknown 03/26/2025 8:28 AM EDT 03/26/2025 9:07 AM EDT us Mehnaz LINDO LAB BLOOD ORDERABLES Final Re sult Performing Organization Address [facility]/ZIP Co de Phone Number [facility] [address] [place] [address], [place] [phone] * ECG 12 lead - Procedural (No Charge) (03/24/2025 3:14 AM EDT) Only the most recent of2 resultswithin the time period is included. Ventricular Rate ECG 107 BPM GEMUSE Atrial Rate 107 BPM GEMUSE P-R Interval 126 ms GEMUSE QRS Duration 74 ms GEMUSE Q-T Interval 338 ms GEMUSE QTc 451 ms GEMUSE P Wave [place] 47 degrees GEMUSE R [place] -29 degrees GEMUSE T [place] 51 degrees GEMUSE ECG Interpretation Sinus tachycardia Possible Left atrial enlargement When compared with ECG of 11-SEP-2025 07:40, No significant change was found Confirmed by LOUISA ZAMORA ([id number]) on 03/24/2025 11:39:26 PM GEMUSE 03/24/2025 3:14 AM EDT 03/24/2025 11:39 PM EDT us Gema LINDO ECG ORDERABLES Final Result GEMUSE * TH AN ENDOTRACHEAL(NO CHARGE) (03/23/2025 11:32 AM EDT) Narrative Molly Contreras CRNA - 03/23/2025 11:32 AM EDT Molly Contreras CRNA 03/23/2025 11:33 AM General Information and Staff Patient location during procedure: OR Performed: resident/CELLOPHANE BAG MACHINE OPERATOR/CAA Performed by: Molly Contreras CRNA Authorized by: Wiliam Ly MD Intubation Airway not difficult Urgency: elective Final Airway Details Successful airway: ETT Cuffed: yes Successful intubation technique: direct laryngoscopy Endotracheal tube insertion site: oral Blade: Serenity Blade size: #3 ETT size (mm): 7.0 Cormack-Lehane Classification: grade I - full view of glottis Placement verified by: chest auscultation and capnometry Inital cuff pressure (cm H2O): 10 Measured from: lips ETT to lips (cm): 21 Number of attempts at approach: 1 Ventilation between attempts: none Number of other approaches attempted: 0Final airway type: endotracheal airway Indications and Patient Condition Indications for airway management: anesthesia and airway protection Spontaneous ventilation: present Sedation level: No Preoxygenated: yes Soft Tissue Damage: No Dentition Unchanged: Yes Patient position: neutral MILS maintained throughout Mask difficulty assessment: 0 - not attempted us Wiliam Ly MD ANESTHESIA ORDERABLES Final Re sult * Type and screen (03/23/2025 7:43 AM EDT) Only the most recent of2 resultswithin the time period is included. ABO Group O 03/23/2025 10:51 AM EDT [facility] Rh Type Positive 03/23/2025 10:51 AM EDT [facility] Antibody Screen Negative 03/23/2025 10:51 AM EDT [facility] Blood Venous blood specimen / Unknown Venipuncture / Unknown 03/23/2025 7:43 AM EDT 03/23/2025 9:46 AM EDT Dayana Frost MD LAB BLOOD BANK TEST ORD ERABLES Final Result Performing Organization Address [facility] Co de Phone Number [facility] [address] [place] [address], [place] [phone] * Prothrombin time with INR (03/23/2025 4:33 AM EDT) Only the most recent of2 resultswithin the time period is included. Protime 12.9 10.6 - 13.9 sec LAB COAGULATION METHOD 03/23/2025 6:51 AM EDT [facility] INR 1.0 LAB COAGULATION METHOD 03/23/2025 6:51 AM EDT [facility] Blood Venous blood specimen / Unknown Venipuncture / Unknown 03/23/2025 4:33 AM EDT 03/23/2025 6:25 AM EDT Mela LINDO LAB BLOOD ORDERABLES Final Re sult Performing Organization Address [facility]/ZIP Co de Phone Number [facility] [address] [place] [address], [place] [phone] * Lavender tube (03/20/2025 10:54 AM EDT) Only the most recent of8 resultswithin the time period is included. Extra Tube Hold for add-ons. 03/20/2025 1:01 PM EDT [facility] Comment:Auto resulted. Blood Venous blood specimen / Unknown 03/20/2025 10:54 AM EDT 03/20/2025 11:10 AM EDT us Mello Rome DO LAB BLOOD ORDERABLES Final Res ult [facility]) [facility] [address] [place] [address], [place] [phone] * EGD Anesthesia - General; [facility] ENDOSCOPY (03/19/2025 11:48 AM EDT) Only the most recent of3 resultswithin the time period is included. Anatomical Region Laterality Modality Endoscopy 03/19/2025 11:1 9 AM EDT Impressions 03/19/2025 11:50 AM EDT - Normal esophagus. - Normal examined duodenum. 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 Biopsied. Dilated. Recommendation: - [facility]. - Full liquid diet. - Await pathology results. - Oral PPI - Repeat EGD w serial dilation. Stent to remodel the stricture vs surgical re-intervention should be considered. Narrative 03/19/2025 11:50 AM EDT [facility] Patient Name: Jia Valdez Procedure Date: 03/19/2025 11:19 AM Date of : 1990 Age: 34 Gender: Female Note Status: Finalized Attending MD: Patrick Garcia DO, [id number] Procedure Date No Time: 03/19/2025 Procedure: Upper GI endoscopy Indications: For therapy of gastric stenosis Providers: Patrick Garcia DO Referring MD: Dayana Frost MD Medicines: Monitored Anesthesia Care Complications: No immediate complications. Estimated blood loss: Minimal. Estimated Blood Loss: Estimated blood loss was minimal. Procedure: Pre-Anesthesia Assessment: - - Prior to the procedure, a History and Physical was performed, and patient medications and allergies were reviewed. The patient is competent. The risks and benefits of the procedure and the sedation options and risks were discussed with the patient. All questions were answered and informed consent was obtained. Patient identification and proposed procedure were verified by the physician, the nurse, the anesthesiologist, the outpatient coordinator and the wafer fab technician in the pre-procedure area in the endoscopy suite. Mental Status Examination: alert and oriented. Airway Examination: normal oropharyngeal airway and neck mobility. Respiratory Examination: clear to auscultation. CV Examination: normal. Prophylactic Antibiotics: The patient does not require prophylactic antibiotics. Prior Anticoagulants: The patient has taken no anticoagulant or antiplatelet agents. ASA Grade Assessment: II - A patient with mild systemic disease. After reviewing the risks and benefits, the patient was deemed in satisfactory condition to undergo the procedure. The anesthesia plan was to use monitored anesthesia care (MAC). Immediately prior to administration of medications, the patient was re-assessed for adequacy to receive sedatives. The heart rate, respiratory rate, oxygen saturations, blood pressure, adequacy of pulmonary ventilation, and response to care were monitored throughout the procedure. The physical status of the patient was re-assessed after the procedure. After obtaining informed consent, the endoscope was passed under direct vision. Throughout the procedure, the patient's blood pressure, pulse, and oxygen saturations were monitored continuously. The Olympus Gastroscope was introduced through the mouth, and advanced to the third part of duodenum. The upper GI endoscopy was accomplished without difficulty. The patient tolerated the procedure well. Findings: The esophagus was normal. The examined duodenum was normal. A benign-appearing, intrinsic severe stenosis was found at the anastomosis. This was traversed. Biopsies were taken with a cold forceps for histology. A TTS dilator was passed through the scope. Dilation with an 18-19-20 mm balloon dilator was performed to 18 mm. The dilation site was examined following endoscope reinsertion and showed moderate improvement in luminal narrowing. Estimated blood loss was minimal. Procedure Code(s): --- Professional --- 25491, Esophagogastroduodenoscopy, flexible, transoral; with dilation of gastric/duodenal stricture(s) (eg, balloon, bougie) 17980, 59, Esophagogastroduodenoscopy, flexible, transoral; with biopsy, single or multiple Diagnosis Code(s): --- Professional --- K31.89, Other diseases of stomach and duodenum CPT copyright 2020 [employer]. All rights reserved. The codes documented in this report are preliminary and upon nurses educator review may be revised to meet current compliance requirements. PATRICK Garcia DO 03/19/2025 11:50:10 AM This report has been signed electronically.Patrick Garcia DO Number of Addenda: 0 Note Initiated On: 03/19/2025 11:19 AM Scope In: Scope Out: Endoscopy Department at [facility] - [address] [place] [id number] Procedure Note Patrick Garcia DO - 03/19/2025 [facility] Patient Name: Jia Valdez Procedure Date: 03/19/2025 11:19 AM Date of : 1990 Age: 34 Gender: Female Note Status: Finalized Attending MD: Patrick Garcia DO, [id number] Procedure Date No Time: 03/19/2025 Procedure: Upper GI endoscopy Indications: For therapy of gastric stenosis Providers: Patrick Garcia DO Referring MD: Dayana Frost MD Medicines: Monitored Anesthesia Care Complications: No [...] the physician, the nurse, the anesthesiologist, the outpatient coordinator and thetechnician in the pre-procedure area in the endoscopy suite. Mental Status Examination: alert and oriented.Airway Examination: normal oropharyngeal airway and neck mobility. Respiratory Examination: clear to auscultation. CV Examination: normal. Prophylactic Antibiotics: The patient does not requireprophylactic antibiotics. Prior Anticoagulants: The patient has taken no anticoagulant or antiplatelet agents. ASA Grade Assessment: II - A patient with mild systemic disease. After reviewing the risks and benefits,the [...] pulse, and oxygen saturations were monitored continuously. TheOlympus Gastroscope was introduced through the mouth, and advanced to the third part of duodenum. The upperGI endoscopy was accomplished without difficulty. The patient tolerated the procedure well. Findings: The esophagus was normal. The examined duodenum was normal. A benign-appearing, intrinsic severe stenosis was found at the anastomosis. This was traversed.Biopsies were taken with a cold forceps for histology. A TTS dilator was passed through the scope. Dilation withan 18-19-20 mm balloon dilator was performed to 18 mm. The dilation site was examined following endoscope reinsertion and showed moderate improvement inluminal narrowing. Estimated blood loss was minimal. Procedure Code(s): --- Professional --- 93858, Esophagogastroduodenoscopy, flexible, transoral; with dilation of gastric/duodenal stricture(s) (eg, balloon, bougie) 23165, 59, Esophagogastroduodenoscopy, flexible, transoral; with biopsy, single or multiple Diagnosis Code(s): --- Professional --- K31.89, Other diseases of stomach and duodenum CPT copyright 2020 [employer]. All rights reserved. The codes documented in this report are preliminary and upon nurses educator reviewmay be revised to meet current compliance requirements. PATRICK Garcia DO 03/19/2025 11:50:10 AM This report has been signed electronically.Patrick Garcia DO Number of Addenda: 0 Note Initiated On: 03/19/2025 11:19 AM Scope In: Scope Out: Endoscopy Department at [facility] - [address] [place] [id number] IMPRESSION: - Normal esophagus. - Normal examined duodenum. 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 Biopsied. Dilated. Recommendation: - [facility]. - Full liquid diet. - Await pathology results. - Oral PPI - Repeat EGD w serial dilation. Stent to remodelthe stricture vs surgical re-intervention should be considered. us Patrick Garcia DO GI~PROCEDURE ORDERABLES Final Re sult * (ABNORMAL) POC , urine manually resulted (03/17/2025 5:35 AM EDT) Only the most recent of5 resultswithin the time period is included. [facility] HCG, Ur POC Negative Negative POC hCG Int QC Pass? Yes Yes EXPIRATION DATE POC 2026-08-29 LOT NUMBER POC [id number] Urine Urine specimen obtained by clean catch procedure / Unknown 03/17/2025 5:35 AM EDT Doris Capone MD POINT OF CARE TEST ENTER/EDIT ORDERABLES Final Result * (ABNORMAL) Urinalysis with reflex microscopic and culture (03/17/2025 5:29 AM EDT) Only the most recent of2 resultswithin the time period is included. [facility] Specific [place] Urine 1.014 1.003 - 1.030 LAB URINALYSIS - AUTOMATED METHOD 03/17/2025 5:47 AM [facility] pH, Urine 7.0 5.0 - 8.0 pH LAB URINALYSIS - AUTOMATED METHOD 03/17/2025 5:47 AM [facility] Leukocytes, Urine Trace(A) Negative LAB URINALYSIS - AUTOMATED METHOD 03/17/2025 5:47 AM [facility] Nitrite, Urine Negative Negative LAB URINALYSIS - AUTOMATED METHOD 03/17/2025 5:47 AM [facility] Protein, Urine Negative <=Trace mg/dL LAB URINALYSIS - AUTOMATED METHOD 03/17/2025 5:47 AM [facility] Glucose, Urine Negative Negative mg/dL LAB URINALYSIS - AUTOMATED METHOD 03/17/2025 5:47 AM [facility] Ketones, Urine Negative Negative mg/dL LAB URINALYSIS - AUTOMATED METHOD 03/17/2025 5:47 AM [facility] Urobilinogen, Urine 0.2 0.2 - 1.0 mg/dL LAB URINALYSIS - AUTOMATED METHOD 03/17/2025 5:47 AM [facility] Bilirubin, Urine Negative Negative LAB URINALYSIS - AUTOMATED METHOD 03/17/2025 5:47 [facility] Blood, Urine Negative Negative LAB URINALYSIS - AUTOMATED METHOD 03/17/2025 5:47 AM [facility] RBC, Urine 0.9 0 - 4 /HPF LAB URINALYSIS - AUTOMATED METHOD 03/17/2025 5:47 AM [facility] WBC, Urine 0.9 0 - 4 /HPF LAB URINALYSIS - AUTOMATED METHOD 03/17/2025 5:47 AM [facility] Squamous Epithelial, Urine 23 0 - 60 /LPF LAB URINALYSIS - AUTOMATED METHOD 03/17/2025 5:47 AM [facility] Bacteria, Urine Negative Negative /HPF LAB URINALYSIS - AUTOMATED METHOD 03/17/2025 5:47 AM [facility] Hyaline Casts, Urine 0.8 0 - 3 /LPF LAB URINALYSIS - AUTOMATED METHOD 03/17/2025 5:47 AM [facility] Urine Urine specimen obtained by clean catch procedure / Unknown Non-blood Collection / Unknown 03/17/2025 5:29 AM EDT 03/17/2025 5:37 AM EDT us Doris Capone MD LAB URINE ORDERABLES Final Res ult [facility] [address] [place] [address], * Mcarthur urine culture tube (03/17/2025 5:29 AM EDT) Only the most recent of2 resultswithin the time period is included. Extra Tube Hold for add-ons. 03/17/2025 7:01 AM EDT [facility] Comment:Auto resulted. Urine Urine specimen obtained by clean catch procedure / Unknown Non-blood Collection / Unknown 03/17/2025 5:29 AM EDT 03/17/2025 5:37 AM EDT Doris Capone MD LAB URINE ORDERABLES Final Res ult Performing Organization Address [facility]/ZIP Co de Phone Number [facility] [address] [place] [address], [place] [phone] * Culture urine (03/17/2025 5:29 AM EDT) Only the most recent of2 resultswithin the time period is included. Culture, Urine No growth 03/18/2025 9:44 AM EDT [facility] Urine Urine specimen obtained by clean catch procedure / Unknown Non-blood Collection / Unknown 03/17/2025 5:29 AM EDT 03/17/2025 5:47 AM EDT Doris Capone MD LAB MICROBIOLOGY - GENERAL ORD ERABLES Final Result Performing Organization Address [facility] de Phone Number [facility] [address] [place] [address], [place] [phone] * Lipase (03/17/2025 5:29 AM EDT) Only the most recent of5 resultswithin the time period is included. Lipase 29 13 - 75 unit/L LAB CHEMISTRY METHOD 03/17/2025 6:10 AM EDT [facility] Blood Venous blood specimen / Unknown Venipuncture / Unknown 03/17/2025 5:29 AM EDT 03/17/2025 5:36 AM EDT Doris Capone MD LAB BLOOD ORDERABLES Final Res ult Performing Organization Address [facility]/ZIP Co de Phone Number [facility] [address] [place] [address], [place] [phone] * Clostridium difficile toxin (03/07/2025 1:26 PM EDT) Clostridium difficile GDH Antigen Negative Negative 03/07/2025 3:25 PM EDT [facility] C difficile Toxins A+B, EIA Negative Negative 03/07/2025 3:25 PM EDT [facility] Comment:NEGATIVE FOR TOXIN P RODUCING CLOSTRIDIOIDES DIFFICILE, NO ADDITIONAL TESTING IS NECESSARY. Stool Rectum structure / Unknown Non-blood Collection / Unknown 03/07/2025 1:26 PM EDT 03/07/2025 1:26 PM EDT Dayana Frost MD LAB MICROBIOLOGY - GENE RAL ORDERABLES Final Result [facility] [address] [place] [address], [place] [phone] * Vascular US duplex upper extremity venous right (03/06/2025 9:04 AM EDT) Anatomical Region Laterality Modality Vascular, Abdomen Ultrasound 03/06/2025 9:07 AM EDT Impressions 03/06/2025 9:14 AM EDT NEGATIVE RIGHT UPPER EXTREMITY VENOUS ULTRASOUND -------- FINAL REPORT -------- Dictated By: JESSICA PRICE Dictated Date: 03/06/2025 09:07 ET Assigned Physician: JESSICA PRICE Reviewed and Electronically Signed By: JESSICA PRICE Signed Date: 03/06/2025 09:14 ET Workstation ID: [id number] Transcribed By: Self Edit Transcribed Date: 03/06/2025 09:07 ET Narrative 03/06/2025 9:14 AM EDT PROCEDURE: VAS US DUPLEX UPPER EXT VENOUS RIGHT INDICATION: Pain TECHNIQUE: 2-D mcarthur scale, color Doppler ultrasound of the right upper extremity veins. COMPARISON: No priors available. FINDINGS: The visualized right upper extremity veins are patent. The right subclavian and internal jugular veins are patent. No mass or fluid collection. Procedure Note Jessica Price MD - 03/06/2025 PROCEDURE: VAS US DUPLEX UPPER EXT VENOUS RIGHT INDICATION: Pain TECHNIQUE: 2-D mcarthur scale, color Doppler ultrasound of the right upperextremity veins. COMPARISON: No priors available. FINDINGS: The visualized right upper extremity veins are patent. Theright subclavian and internal jugular veins are patent. No mass or fluidcollection. IMPRESSION: NEGATIVE RIGHT UPPER EXTREMITY VENOUS ULTRASOUND -------- FINAL REPORT -------- Dictated By: JESSICA PRICE Dictated Date: 03/06/2025 09:07 ET Assigned Physician: JESSICA PRICE Reviewed and Electronically Signed By: JESSICA PRICE Signed Date: 03/06/2025 09:14 ET Workstation ID: [id number] Transcribed By: Self Edit Transcribed Date: 03/06/2025 09:07 ET Meeta See DO CV VASCULAR PROCEDURES Final Result * Troponin I high sensitivity (03/06/2025 8:22 AM EDT) [facility] High Sensitivity Troponin I 3 <=54 ng/L LAB CHEMISTRY METHOD 03/06/2025 9:19 AM EDT [facility] Blood Venous blood specimen / Unknown Venipuncture / Unknown 03/06/2025 8:22 AM EDT 03/06/2025 8:45 AM EDT Narrative [facility] - 03/06/2025 9:19 AM EDT High levels of biotin in samples may falsely decrease hsTroponin values. Use caution when interpreting hsTroponin results in patients taking biotin who exhibit renal impairment (eGFR <60) or in patients taking more than 20 mg/day of biotin. Ruperto LINDO LAB BLOOD ORDERABLES Final Result [facility] [address] [place] [address], [place] [phone] * XR Chest 1 View (03/06/2025 8:01 AM EDT) Anatomical Region Laterality Modality Body Radiographic Abbie ging 03/06/2025 8:47 AM EDT Impressions 03/06/2025 8:50 AM EDT FINDINGS/IMPRESSION: Right upper extremity PICC terminates near the cavoatrial junction. Lungs are clear. No pleural effusion or pneumothorax. Cardiac silhouette and bones are normal. -------- FINAL REPORT -------- Dictated By: JESSICA PRICE Dictated Date: 03/06/2025 08:47 ET Assigned Physician: JESSICA PRICE Reviewed and Electronically Signed By: JESSICA PRICE Signed Date: 03/06/2025 08:50 ET Workstation ID: [id number] Transcribed By: Self Edit Transcribed Date: 03/06/2025 08:47 ET Narrative 03/06/2025 8:50 AM EDT XR CHEST 1 VIEW INDICATION: Chest pain TECHNIQUE: XR CHEST 1 VIEW COMPARISON: No priors available. Procedure Note Jessica Price MD - 03/06/2025 XR CHEST 1 VIEW INDICATION: Chest pain TECHNIQUE: XR CHEST 1 VIEW COMPARISON: No priors available. IMPRESSION: FINDINGS/IMPRESSION: Right upper extremity PICC terminates near thecavoatrial junction. Lungs are clear. No pleural effusion orpneumothorax. Cardiac silhouette and bones are normal. -------- FINAL REPORT -------- Dictated By: JESSICA PRICE Dictated Date: 03/06/2025 08:47 ET Assigned Physician: JESSICA PRICE Reviewed and Electronically Signed By: JESSICA PRICE Signed Date: 03/06/2025 08:50 ET Workstation ID: [id number] Transcribed By: Self Edit Transcribed Date: 03/06/2025 08:47 ET us Ruperto LINDO IMG XR PROCEDURES Final Res ult * Green NA heparin tube (03/05/2025 2:50 PM EDT) Extra Tube Hold for add-ons. 03/05/2025 5:02 PM EDT [facility] Comment:Auto resulted. Blood Venous blood specimen / Unknown 03/05/2025 2:50 PM EDT 03/05/2025 3:52 PM EDT Dayana Frost MD LAB BLOOD ORDERABLES Fi nal Result [facility] [address] [place] [address], * Insert PICC line (02/26/2025 11:52 AM EDT) Narrative Ana Paula Argueta RN - 02/26/2025 11:52 AM EDT Ana Paula Argueta RN 02/26/2025 11:54 AM PICC Line Insertion Procedure Note Procedure: Insertion of 4F Double lumen Bard Provena PowerPICC Lot: [id number] Exp: 2025-11-08 Indications: TPN Procedure Details: Informed consent was obtained for the procedure. Risks of thrombus and infection were discussed. Pre-procedure checklist completed at bedside. Maximum sterile technique was used including antiseptics, cap, gloves, gown, hand hygiene, mask, and sheet. US guidance utilized, vein easily accessed and catheter advanced smoothly upon first attempt. Two wires intact and discarded. 1% Lidocaine 3 ml sc administered. 4F PICC inserted to the right basilic vein per hospital protocol. Flushes smoothly with good blood return. Findings: Catheter cut at 37 cm and inserted to 37 cm with 0 cm exposed. Mid upper arm circumference is 38 cm. There were no changes to vital signs. Catheter was flushed with 10 ml NS and sterile CVC dressing with Biopatch applied. Patient tolerated procedure well. Recommendations: 3CG confirmation obtained: Tip at cavoatrial junction/May use line PICC Brochure given to patient with teaching instruction. Mela LINDO IV THERAPY ORDERABLES Final Re sult * TH AN ENDOTRACHEAL(NO CHARGE) (02/20/2025 9:03 AM EDT) Narrative Jermaine Siddiqui CRNA - 02/20/2025 9:03 AM EDT Jermaine Siddiqui CRNA 02/20/2025 9:04 AM General Information and Staff Patient location during procedure: OR Resident/CELLOPHANE BAG MACHINE OPERATOR: Jermaine Siddiqui CRNA Performed: resident/CELLOPHANE BAG MACHINE OPERATOR/CAA Performed by: Jermaine Siddiqui CRNA Authorized by: Daniel Martins DO Intubation Airway not difficult Urgency: elective Final Airway Details Successful airway: ETT Cuffed: yes Successful intubation technique: direct laryngoscopy Facilitating devices/methods: cricoid pressure Endotracheal tube insertion site: oral Blade: Serenity Blade size: #3 ETT size (mm): 7.0 Cormack-Lehane Classification: grade IIa - partial view of glottis Placement verified by: chest auscultation, capnometry and palpation of cuff Measured from: gums ETT to gums (cm): 22 Number of attempts at approach: 1 Ventilation between attempts: none Number of other approaches attempted: 0Final airway type: endotracheal airway Indications and Patient Condition Indications for airway management: anesthesia Spontaneous Ventilation: absent Sedation level: Yes Preoxygenated: yes Soft Tissue Damage: No Dentition Unchanged: Yes Patient position: neutral MILS maintained throughout Mask difficulty assessment: 0 - not attempted Daniel Martins DO ANESTHESIA ORDERABLES Final Res ult * ECG-Annotated (02/19/2025) Only the most recent of2 resultswithin the time period is included. us Provider Onbase MD ECG ORDERABLES Final Result * XR UGI w Air Contrast (01/23/2025 [...] Signed Date: 01/23/2025 11:53 ET Workstation ID: [id number] Transcribed By: Self Edit Transcribed Date: 01/23/2025 11:41 ET Resident/PA/RADIO DIVISION OFFICER: Willow Oliver Grant 01/23/2025 11:53 AM EDT FINDINGS: Double contrast UGI performed. COMPARISON: Upper GI imaging November 23 and October 18, 2023 ; CT abdomen and pelvis with contrast January 20, 2025 reviewed. HISTORY: Patient is a 34-year-old female with history of vomiting status post gastric bypass reversal December 28, 2024. Question gastric-gastric anastomosis narrowing PAPER INSPECTOR radiographs: Plant Controller AP radiograph of the abdomen obtained. Bowel [...] reversal December 28, 2024. Question gastric-gastricanastomosis narrowing PAPER INSPECTOR radiographs: Plant Controller AP radiograph of the abdomen obtained. Bowel [...] Signed Date: 01/23/2025 11:53 ET Workstation ID: [id number] Transcribed By: Self Edit Transcribed Date: 01/23/2025 11:41 ET Resident/PA/RADIO DIVISION OFFICER: Willow Oliver Denice LINDO IMG FLUOROSCOPY PROCEDUR ES Final Result * (ABNORMAL) Lipid panel (05/21/2023) [facility] LDL/HDL Ratio 4 0 - 4 Triglycerides 190(A) 0 - 150 mg/dL Cholesterol 196 0 - 200 mg/dL HDL 53 >=40 mg/dL LDL Cholesterol 105(A) 0 - 100 mg/dL Blood Venous blood specimen / Unknown Result [facility] Provider LAB BLOOD ORDERABLES Nicole l Result * Cervical Cancer Screening: HPV (09/28/2022) [facility] Cervical Cancer Screening: HPV abstracted, negative Result [facility] Provider HEALTH MAINTENANCE Final Result * HIV Screening (01/27/2022) [facility] HIV Screening abstracted [facility] Provider HEALTH MAINTENANCE Final Result * Hepatitis C Screening (01/27/2022) [facility] Hepatitis C Screening abstracted us Historical Provider HEALTH MAINTENANCE Final Result from Last 3 Months or Most Recently Relevant to Health Maintenance Additional Health Concerns Active Problems Noted Date Diagnosed Date Autogenerated Problem 04/11/2025 Insurance [facility] MEDIC[facility] Member Subscriber Plan / Payer (Ef fective 2022-Present) Name:DEEPA JIA Relation to Subscriber:Self Name:Jia Valdez Payer ID:[id number] Group ID:[id number] Type:Not on file Address: [place] [address] [address] [place] [id number] Advance Directives * Full Code - Default (Latest Code Status on File) Date Activated Date Inactivated Comments 04/10/2025 1:51 AM 04/13/2025 5:10 PM This is orde r is used when code status has not been discussed with the patient, or code status is otherwise unknown/unconfirmed To update the patient's code status, place a code status order. Do not modify or discontinue any currently active code status orders. * Full Code - Default Date Activated Date Inactivated Comments 03/23/2025 2:20 PM 04/05/2025 4:04 PM This is orde r is used when code status has not been discussed with the patient, or code status is otherwise unknown/unconfirmed To update the patient's code status, place a code status order. Do not modify or discontinue any currently active code status orders. * Full Code - Default Date Activated Date Inactivated Comments 03/17/2025 11:12 AM 03/23/2025 2:20 PM This is orde r is used when code status has not been discussed with the patient, or code status is otherwise unknown/unconfirmed To update the patient's code status, place a code status order. Do not modify or discontinue any currently active code status orders. * Full Code - Default Date Activated Date Inactivated Comments 02/17/2025 10:11 AM 03/02/2025 4:19 PM This is orde r is used when code status has not been discussed with the patient, or code status is otherwise unknown/unconfirmed To update the patient's code status, place a code status order. Do not modify or discontinue any currently active code status orders. * Full Code - Default Date Activated Date Inactivated Comments 12/28/2024 8:12 AM 01/01/2025 3:46 PM This is orde r is used when code status has not been discussed with the patient, or code status is otherwise unknown/unconfirmed To update the patient's code status, place a code status order. Do not modify or discontinue any currently active code status orders. Care Teams Dog Licenser Relationship Specialty Start Date End Date Cassius Alvarez MD [address] [place] [id number] PCP - General Internal Medicine 06/07/24
--- OUTSIDE RECORDS SUMMARY | 2025-04-17 09:09 | XMS_ITS | Clinical Summary ---
Author Organization [facility] Address [address] [place] [address] Care Team Providers Care Crushing Machine Operator Name Role Phone Cassius Alvarez MD Primary Care Provider [phone] Allergies Active Allergy Reactions Criticality Noted Date [...] (Pap Smear) 2013 COVID-19 Vaccine ( season) 2025 05/28/2023, 10/09/2021, 05/17/2021, Additional history exists Influenza [...] age to complete this topic Care Teams Crushing Machine Operator Relationship Specialty Start Date End Date Cassius Alvarez MD [address] [place] [address] PCP - General Internal Medicine 08/16/23
--- OUTSIDE RECORDS SUMMARY | 2025-04-17 09:09 | XMS_ITS | Encounter Summary ---
Author Organization [facility] [place] [address] Care Team Providers Care Public Health Doctor Name Role Phone Cassius Alvarez MD Primary Care Provider [phone] Encounter Details Date Type Department Care Team (Late st Contact Info) Description 03/12/2025 Lab Requisition [facility] - Main Lab [address] [facility] [place] [address] Dayana Frost MD [address] [place] [address] Social History Tobacco Use Types Packs/Day Years [...] Date of Assessment Author No Risk Indicated 03/15/2025 6:30 AM EDT Sofi Song RN * [place] Suicide Severity Rating Scale (Screener/Recent Self-Report) Question Answer Date of Assessment Author 1. Wish to be (Past 1 Month) No 025 6:30 AM EDT Sofi Song RN 2. Non-Specific Active Suici angie Thoughts (Past 1 Month) No 03/15/2025 6:30 AM WENDYT Sofi Song RN 6. Suicidal Behavior (Lifetime) No 6:30 AM EDT Sofi Song RN documented as [...] AM EDT Office Visit Bariatric Surgery - [place] [address] [place] [phone] Dayana Frost MD [address] [place] [address] 05/07/2025 8:50 AM EDT Office Visit Gastroenterology - [place] 175 [facility] 175 [facility] [address] [place] [phone] Anny Vogel PA [address] [facility] [address] [place] [address] 06/04/2025 1:00 PM EST Office Visit Bariatric Surgery - [place] [address] [facility] [address] [place] [phone] Dayana Frost MD [address] [place] [phone] documented as of this encounter Procedures Procedure Name Priority Date/Time Associated Diagnosis Comments CBC WITH AUTO DIFFERENTIAL Routine 03/12/2025 2:00 PM EDT CBC AND DIFFERENTIAL Routine 03/12/2025 2:00 PM EDT TRIGLYCERIDES Routine 03/12/2025 2:00 PM EDT PHOSPHORUS Routine 03/12/2025 2:00 PM EDT MAGNESIUM Routine 03/12/2025 2:00 PM EDT COMPREHENSIVE METABOLIC PANEL Routine 03/12/2025 2:00 PM EDT documented in this encounter Results * (ABNORMAL) CBC auto differential (03/12/2025 2:00 PM EDT) [facility] WBC 10.2 4.8 - 10.8 K/[facility] LAB HEMETOLOGY METHOD 03/12/2025 2:54 PM EDT [facility] RBC 3.70(L) 3.80 - 4.80 M/mcL LAB HEMETOLOGY METHOD 03/12/2025 2:54 PM EDT [facility] LAB Hemoglobin 11.8 11.5 - 16.0 g/dL LAB HEMETOLOGY METHOD 03/12/2025 2:54 PM EDT [facility] LAB Hematocrit 36.0 35.0 - 47.0 % LAB HEMETOLOGY METHOD 03/12/2025 2:54 PM EDT [facility] LAB MCV 97.0 79.0 - 98.0 FL LAB HEMETOLOGY METHOD 03/12/2025 2:54 PM EDT [facility] LAB MCH 31.8 27.0 - 32.0 pcg LAB HEMETOLOGY METHOD 03/12/2025 2:54 PM EDT [facility] LAB MCHC 32.8 32.0 - 37.0 g/dL LAB HEMETOLOGY METHOD 03/12/2025 2:54 PM EDT [facility] LAB RDW 13.1 11.0 - 15.0 % LAB HEMETOLOGY METHOD 03/12/2025 2:54 PM EDT [facility] LAB Platelets 241 130 - 400 K/mcL LAB HEMETOLOGY METHOD 03/12/2025 2:54 PM EDT [facility] LAB MPV 10.8 7.0 - 11.0 FL LAB HEMETOLOGY METHOD 03/12/2025 2:54 PM EDT [facility] LAB NRBC 0.0 <1.0 % LAB HEMETOLOGY METHOD 03/12/2025 2:54 PM EDT [facility] LAB NRBC Absolute 0.00 <0.10 K/mcL LAB HEMETOLOGY METHOD 03/12/2025 2:54 PM EDT [facility] LAB Neutrophils Relative 63.3 % LAB HEMETOLOGY METHOD 03/12/2025 2:54 PM EDT [facility] LAB Lymphocytes Relative 24.8 % LAB HEMETOLOGY METHOD 03/12/2025 2:54 PM EDT [facility] LAB Monocytes Relative 4.3 % LAB HEMETOLOGY METHOD 03/12/2025 2:54 PM EDT [facility] LAB Eosinophils Relative 6.3 % LAB HEMETOLOGY METHOD 03/12/2025 2:54 PM EDT [facility] LAB Basophils Relative 0.9 % LAB HEMETOLOGY METHOD 03/12[facility]25 [facility] Immature Granulocytes Relative 0.4 % LAB HEMETOLOGY METHOD 03/12/2025 2:54 PM EDT [facility] LAB Neutrophils Absolute 6.48 1.50 - 7.00 K/mcL LAB HEMETOLOGY METHOD 03/12/2025 2:54 PM EDT [facility] LAB Lymphocytes Absolute 2.54 1.00 - 5.00 K/mcL LAB HEMETOLOGY METHOD 03/12/2025 2:54 PM EDT [facility] LAB Monocytes Absolute 0.44 0.20 - 1.00 K/mcL LAB HEMETOLOGY METHOD 03/12/2025 2:54 PM EDT [facility] LAB Eosinophils Absolute 0.64(H) 0.00 - 0.50 K/mcL LAB HEMETOLOGY METHOD 03/12/2025 2:54 PM T [facility] LAB Basophils Absolute 0.09 0.00 - 0.20 K/mcL LAB HEMETOLOGY METHOD 03/12/2025 2:54 PM EDT [facility] LAB Immature Granulocytes Absolute 0.04(H) 0.00 - 0.03 K/mcL LAB HEMETOLOGY METHOD 03/12/2025 2:54 PM [facility] Blood Venous blood specimen / Unknown 03/12/2025 2:00 PM EDT 03/12/2025 2:50 PM EDT us Dayana Frost MD LAB BLOOD ORDERABLES Fi nal Result Performing Organization Address [facility] [employer] de Phone Number [facility] [address] [place] [address], * (ABNORMAL) Triglycerides (03/12/2025 2:00 PM EDT) Triglycerides 175(H) 0 - 150 mg/dL LAB CHEMISTRY METHOD 03/12/2025 3:12 PM EDT [facility] LAB Blood Venous blood specimen / Unknown 03/12/2025 2:00 PM EDT 03/12/2025 2:50 PM EDT us Dayana Frost MD LAB BLOOD ORDERABLES Fi nal Result Performing Organization Address [facility] de Phone Number [facility] [address] [place] [address], * Phosphorus (03/12/2025 2:00 PM EDT) Phosphorus 3.5 2.5 - 4.5 mg/dL LAB CHEMISTRY METHOD 03/12/2025 3:12 PM EDT [facility] LAB Blood Venous blood specimen / Unknown 03/12/2025 2:00 PM EDT 03/12/2025 2:50 PM EDT us Dayana Frost MD LAB BLOOD ORDERABLES Fi nal Result Performing Organization Address [facility] [employer] de Phone Number [facility] [address] [place] [address], [place] [phone] * Magnesium (03/12/2025 2:00 PM EDT) Magnesium 2.0 1.9 - 2.6 mg/dL LAB CHEMISTRY METHOD 03/12/2025 3:12 PM EDT [facility] LAB Blood Venous blood specimen / Unknown 03/12/2025 2:00 PM EDT 03/12/2025 2:50 PM EDT us Dayana Frost MD LAB BLOOD ORDERABLES Fi nal Result [facility] [address] [place] [address], [place] [phone] * (ABNORMAL) Comprehensive metabolic panel (03/12/2025 2:00 PM EDT) Sodium 140 133 - 145 mmol/L LAB CHEMISTRY METHOD 03/12/2025 3:12 PM EDT [facility] Potassium 3.8 3.5 - 5.5 mmol/L LAB CHEMISTRY METHOD 03/12/2025 3:12 PM [facility] Chloride 109 96 - 110 mmol/L LAB CHEMISTRY METHOD 03/12/2025 3:12 PM [facility] CO2 25 21 - 32 mmol/L LAB CHEMISTRY METHOD 03/12/2025 3:12 PM [facility] Anion Gap 6 3 - 11 LAB CHEMISTRY METHOD 03/12/2025 3:12 PM [facility] Glucose 99 70 - 100 mg/dL LAB CHEMISTRY METHOD 03/12/2025 3:12 PM [facility] BUN 9 5 - 25 mg/dL LAB CHEMISTRY METHOD 03/12/2025 3:12 PM [facility] Creatinine 0.62 0.50 - 1.10 mg/dL LAB CHEMISTRY METHOD 03/12/2025 3:12 PM [facility] LAB eGFR 122 >=60 mL/min/1. 73m2 LAB CHEMISTRY METHOD 03/12/2025 3:12 PM [facility] LAB Comment:Calculation based on the Chronic Kidney Disease Epidemiology Collaboration (CKD-EPI) equation refit without adjustment for race. BUN/Creatinine Ratio 14.5 LAB CHEMISTRY METHOD 03/12/2025 3:12 PM [facility] Calcium 8.8 8.5 - 10.5 mg/dL LAB CHEMISTRY METHOD 03/12/2025 3:12 PM EDT [facility] AST (SGOT) 17 10 - 42 unit/L LAB CHEMISTRY METHOD 03/12/2025 3:12 PM EDT [facility] ALT (SGPT) 33 10 - 60 unit/L LAB CHEMISTRY METHOD 03/12/2025 3:12 PM EDT [facility] LAB Alkaline Phosphatase 112 42 - 121 unit/L LAB CHEMISTRY METHOD 03/12/2025 3:12 PM EDT [facility] Total Protein 6.5 6.0 - 8.0 g/dL LAB CHEMISTRY METHOD 03/12/2025 3:12 PM EDT [facility] Albumin 3.1(L) 3.2 - 5.0 g/dL LAB CHEMISTRY METHOD 03/12/2025 3:12 PM EDT [facility] Total Bilirubin 0.3 0.0 - 1.4 mg/dL LAB CHEMISTRY METHOD 03/12/2025 3:12 PM EDT [facility] LAB Blood Venous blood specimen / Unknown 03/12/2025 2:00 PM EDT 03/12/2025 2:50 PM EDT us Dayana Frost MD LAB BLOOD ORDERABLES Fi nal Result [facility] [address] [place] [address], documented in this encounter Visit Diagnoses Not on filedocumented in this encounter Additional Health Concerns Infection Onset Date Last Indicated Resolved Time Gastrointestinal Rule-Out 04/11/2025 04/14/2025 11:49 AM EDT documented as of this encounter Care Teams Public Health Doctor Relationship Specialty Start Date End Date Cassius Alvarez MD [address] [place] [address] PCP - General Internal Medicine 06/07/24 documented as of this encounter
--- OUTSIDE RECORDS SUMMARY | 2025-04-17 09:09 | XMS_ITS | Encounter Summary ---
Author Organization [facility] [place] [address] Care Team Providers Care Technical Writing Lead/Mgr Name Role Phone Cassius Alvarez MD Primary Care Provider [phone] Encounter Details Date Type Department Care Team ([facility] st Contact Info) Description 04/16/2025 Results Follow-Up Gastroenterology - [address] [phone] Pietro Mayer MD [address] [place] [address] Social History Tobacco Use Types Packs/Day Years [...] No 03/17/2025 5:44 AM Arleth Peres RN documented as of this encounter Mental Status * Because of a physical, mental, or emotional condition, do you have serious difficulty concentrating, remembering, or making decisions? (5 years old or older) Answer Entry Date Author No 03/17/2025 5:44 AM Arleth Peres RN documented in this encounter Plan of Treatment Upcoming Encounters Date Type Department Care Team (Late st Contact Info) Description 04/23/2025 11:45 AM EDT Office Visit Bariatric Surgery - [place] 175 [facility] [address] [place] [phone] Dayana Frost MD [address] [place] [phone] 05/07/2025 8:50 AM EDT Office Visit Gastroenterology - [place] 175 [facility] 175 [facility] [address] [place] [phone] Anny Vogel PA 175 [facility] [address] [place] [address] 06/04/2025 1:00 PM EST Office Visit Bariatric Surgery - [place] [address] [place] [address] Dayana Frost MD [address] [place] [phone] documented as of this encounter Goals Goal Patient Goal Type Associated Problems Recent Progress Patient-Stated? Author Autogenerat ed Goal Care Plan Autogenerated Problem No Bouchra Collado RN documented as of this encounter Visit Diagnoses Not on filedocumented in this encounter Additional Health Concerns Active Problems Noted Date Diagnosed Date Autogenerated Problem 04/11/2025 documented as of this encounter Care Teams Technical Writing Lead/Mgr Relationship Specialty Start Date End Date Cassius Alvarez MD [address] [place] [address] PCP - General Internal Medicine 06/07/24 documented as of this encounter
--- OUTSIDE RECORDS SUMMARY | 2025-04-17 09:09 | XMS_ITS | Encounter Summary ---
Author Organization [facility] Address [address] [place] [address] Care Team Providers Care Plastics Process Hand Name Role Phone Cassius Alvarez MD Primary Care Provider [phone] Reason for Visit * Reason Onset Date Comments Advice Only 04/09/2025 PO Encounter Details Date Type Department Care Team ([facility] st Contact Info) Description 04/09/2025 Telephone Bariatric Surgery - [address] [place] [address] Dayana Baldwin MD [address] [place] [phone] Social History Tobacco Use Types Packs/Day [...] 04/14/2025 7:07 AM Sofi Poole RN * [place] Suicide Severity Rating Scale (Screener/Recent Self-Report) Question Answer Date of Assessment Author 1. Wish to be (Past 1 Month) No 025 7:07 AM Sofi Poole RN 2. Non-Specific Active Suici angie Thoughts (Past 1 Month) No 04/14/2025 7:07 AM Sofi Poole RN 6. Suicidal Behavior (Lifetime) No 7:07 AM Sofi Poole RN 6. Suicidal Behavior (3 Months) No 5 7:07 AM Sofi Poole RN documented as of this encounter Mental Status * Because of a physical, mental, or emotional condition, do you have serious difficulty concentrating, remembering, or making decisions? (5 years old or older) Answer Entry Date Author No 03/17/2025 5:44 AM Arleth Peres RN documented in this encounter Progress Notes * Dayana Baldwin MD - 04/16/2025 8:48 AM EDTAddended by: DAYANA BALDWIN on: 04/16/2025 08:48 AM Modules accepted: Orders * Dayana Baldwin MD - 04/09/2025 1:46 PM EDT Spoke with Jia. She feels cold, sweaty. Had a low-grade temperature of 100.2 earlier today. Took some Tylenol but does not feel any better. Has been having quite a bit of anxiety due to her discomfort. Feels dizzy even when she is lying down. Denies any bleeding, no bloody emesis, no bright red bloodper rectum other than a tiny amount on paper after wiping. She has had diarrhea 6-7 times a day. She had some extra IV fluid bags from prior to her surgery. Took 1 extra liter, but again did not feel any better after that. PO intake: half a yogurt, half a baby food pouch, sipping on protein water (less than a quarter of a bottle). Plan: Continues to have diarrhea, sounds that she cannot keep up with the fluid losses. Recommend continuing with the supplemental IV fluids. She has 4 bags left, will add 1 daily. Has had low-grade fevers and abdominal pain at the site of the prior abscess as well as just medial to it. Will order CT scan to rule out any additional abscess collection, and add labs. Also has been having continued difficulty with p.o. intake. Overall likely postop edema, will order upper GI study to evaluate the GG anastomosis. She will call me with any worsening symptoms or go to the ER. * Miracle Catarino - 04/09/2025 8:32 AM EDT PT has been getting cold sweats and dizziness, extremely weak. Had low grade fever of 100.7 was discharged on and does have infection in one of incision sites. Please call pt. documented in this encounter Plan of Treatment Upcoming Encounters Date Type Department Care Team (Late st Contact Info) Description 04/23/2025 11:45 AM EDT Office Visit Bariatric Surgery [facility] 175 [facility] [address] [place] [phone] Dayana Baldwin MD [address] [place] [phone] 05/07/2025 8:50 AM EDT Office Visit Gastroenterology [facility] [address] [place] [phone] Anny Vogel PA 175 [facility] [address] [place] [address] 06/04/2025 1:00 PM EST Office Visit Bariatric Surgery [facility] 175 [facility] [address] [place] [phone] Dayana Baldwin MD [address] [place] [phone] documented as of this encounter Goals Goal Patient Goal Type Associated Problems Recent Progress Patient-Stated? Author Autogenerat ed Goal Care Plan Autogenerated Problem No Bouchra Collado RN documented as of this encounter Visit Diagnoses Diagnosis Food intolerance- Primary Other specified intestinal malabsorption S/P bariatric surgery Periumbilical abdominal pain Abdominal pain, periumbilic documented in this encounter Additional Health Concerns Active Problems Noted Date Diagnosed Date Autogenerated Problem 04/11/2025 Infection Onset Date Last Indicated Resolved Time Gastrointestinal Rule-Out 04/11/2025 04/14/2025 11:49 AM EDT documented as of this encounter Care Teams Plastics Process Hand Relationship Specialty Start Date End Date Cassius Alvarez MD [address] [place] [address] PCP - General Internal Medicine 06/07/24 documented as of this encounter
--- OUTSIDE RECORDS SUMMARY | 2025-04-17 09:09 | XMS_ITS | Encounter Summary ---
Author Organization [facility] Address [address] [place] [address] Care Team Providers Care Line Dancer Name Role Phone Cassius Alvarez MD Primary Care Provider [phone] Encounter Details Date Type Department Care Team (Latest Contact Info) Description 08/21/[address] [facility] - Main Lab [address] [facility] [place] [address] Donald Wall PA 100 [facility] [address] [place] [address] Hydronephrosis with renal and ureteral calculous obstruction [...] of Assessment Author No 06/17/2024 1:59 AM Chace Cerrato RN * Because of a physical, [...] 11:45 AM EDT Office Visit Bariatric Surgery [address] [phone] Dayana Frost MD [address] [place] [phone] 05/07/2025 8:50 AM EDT Office Visit Gastroenterology [address] [phone] Anny Vogel PA [address] [address] 06/04/2025 1:00 PM EST Office Visit Bariatric Surgery [address] [phone] Dayana Frost MD [address] [place] [phone] documented as of this encounter Procedures Procedure Name Priority Date/Time Associated Diagnosis Comments PARATHYROID HORMONE INTACT Routine 08/21/2024 10:22 AM EST Hydronephrosis with renal and ureteral calculous obstruction documented in this encounter Results * Parathyroid hormone intact (08/21/2024 10:22 AM EST) PTH 54.2 18.5 - 88.0 pcg/mL LAB CHEMISTRY METHOD 08/21/2024 2:11 PM EST [facility] Blood Venous blood specimen / Unknown 08/21/2024 10:22 AM EST 08/21/2024 1:17 PM EST us Donald LINDO LAB BLOOD ORDERABLES Final Res ult [facility] [address] [place] [address], documented in this encounter Visit Diagnoses Diagnosis Hydronephrosis with renal and ureteral calculous obstruction documented in this encounter Additional Health Concerns Infection Onset Date Last Indicated Resolved Time C. difficile Rule-Out 03/07/2025 03/07/20252024 3:25 PM EDT Gastrointestinal Rule-Out 04/11/2025 04/14/2025 11:49 AM EDT documented as of this encounter Care Teams Line Dancer Relationship Specialty Start Date End Date Cassius Alvarez MD [address] [place] [id number] PCP - General Internal Medicine 06/07/24 documented as of this encounter
--- OUTSIDE RECORDS SUMMARY | 2025-04-17 09:09 | XMS_ITS | Encounter Summary ---
Author Organization [facility] [place] [address] Care Team Providers Care Business Machines Teacher Name Role Phone Cassius Alvarez MD Primary Care Provider [phone] Encounter Details Date Type Department Care Team (Late st Contact Info) Description 04/16/2025 Lab Requisition [facility] - Main Lab [address] [facility] [address] [place] [address] Dayana Frost MD [address] [place] [phone] Other diseases of stomach and duodenum; Disease of digestive system, unspecified Social History Tobacco Use Types Packs/Day Years [...] AM EDT Office Visit Bariatric Surgery - [place] 175 [facility] [address] [place] [phone] Dayana Frost MD [address] [place] [phone] 05/07/2025 8:50 AM EDT Office Visit Gastroenterology - [place] 175 [facility] 175 [facility] [address] [place] [phone] Anny Vogel PA 175 [facility] [address] [place] [address] 06/04/2025 1:00 PM EST Office Visit Bariatric Surgery - [place] [address] [place] [address] Dayana Frost MD [address] [place] [phone] documented as of this encounter Goals Goal Patient Goal Type Associated Problems Recent Progress Patient-Stated? Author Autogenerat ed Goal Care Plan Autogenerated Problem No Bouchra Collado RN documented as of this encounter Procedures Procedure [...] and duodenum Disease of digestive system, unspecified documented in this encounter Results * SST tube (04/16/2025 12:00 AM EDT) Extra Tube Hold for add-ons. 04/16/2025 8:01 PM EDT [facility] Comment:Auto resulted. Blood Venous blood specimen / Unknown 04/16/2025 04/16/2025 6:35 PM EDT us Dayana Frost MD LAB BLOOD ORDERABLES Fi nal Result [facility] [address] [place] [address], * (ABNORMAL) CBC auto differential (04/16/2025 12:00 AM EDT) WBC 10.3 4.8 - 10.8 K/mcL LAB HEMETOLOGY [facility] RBC 3.70(L) 3.80 - 4.80 M/mcL LAB HEMETOLOGY METHOD 04/16/2025 7:07 PM [facility] Hemoglobin 11.3(L) 11.5 - 16.0 g/dL LAB HEMETOLOGY METHOD 04/16/2025 7:07 PM [facility] Hematocrit 36.5 35.0 - 47.0 % LAB HEMETOLOGY METHOD 04/16/2025 7:07 PM [facility] MCV 97.9 79.0 - 98.0 FL LAB HEMETOLOGY METHOD [facility]25 7[facility] MCH 30.3 27.0 - 32.0 pcg LAB HEMETOLOGY METHOD 04/16/2025 7:07 PM [facility] MCHC 31.0(L) 32.0 - 37.0 g/dL LAB HEMETOLOGY METHOD 04/16/2025 7:07 PM [facility] RDW 16.4(H) 11.0 - 15.0 % LAB HEMETOLOGY METHOD 04/16/2025 7:07 PM [facility] Platelets 359 130 - 400 K/mcL LAB HEMETOLOGY METHOD 04/16/2025 7:07 PM [facility] MPV 10.2 7.0 - 11.0 FL LAB HEMETOLOGY METHOD 04/16/2025 7:07 PM [facility] NRBC 0.0 <1.0 % LAB HEMETOLOGY METHOD 04/16/2025 7:07 PM [facility] NRBC Absolute 0.00 <0.10 K/mcL LAB HEMETOLOGY METHOD 04/16/2025 7:07 PM [facility] Neutrophils Relative 58.7 % LAB HEMETOLOGY METHOD 04/16/2025 7:07 PM [facility] Lymphocytes Relative 32.5 % LAB HEMETOLOGY METHOD 04/16/2025 7:07 PM [facility] Monocytes Relative 4.8 % LAB HEMETOLOGY METHOD 04/16/2025 7:07 PM [facility] Eosinophils Relative 2.4 % LAB HEMETOLOGY METHOD 04/16/2025 7:07 PM [facility] Basophils Relative 1.2 % LAB HEMETOLOGY METHOD 04/16/2025 7:07 PM [facility] Immature Granulocytes Relative 0.4 % LAB HEMETOLOGY METHOD 04/16/2025 7:07 PM [facility] Neutrophils Absolute 6.06 1.50 - 7.00 K/mcL LAB HEMETOLOGY METHOD 04/16/2025 7:07 PM [facility] Lymphocytes Absolute 3.36 1.00 - 5.00 K/mcL LAB HEMETOLOGY METHOD 04/16/2025 7:07 PM [facility] Monocytes Absolute 0.50 0.20 - 1.00 K/mcL LAB HEMETOLOGY METHOD 04/16/2025 7:07 PM [facility] Eosinophils Absolute 0.25 0.00 - 0.50 K/[facility] LAB HEMETOLOGY METHOD 04/16/2025 7:07 PM EDT [facility] Basophils Absolute 0.12 0.00 - 0.20 K/[facility] HEMETOLOGY METHOD 04/16/2025 7:07 PM EDT [facility] Immature Granulocytes Absolute 0.04(H) 0.00 - 0.03 K/[facility] HEMETOLOGY METHOD 04/16/2025 7:07 PM EDT [facility] Blood Venous blood specimen / Unknown 04/16/2025 04/16/2025 6:35 PM EDT us Dayana Frost MD LAB BLOOD ORDERABLES Fi nal Result Performing Organization Address City/[facility]/ZIP Co de Phone Number [facility] [address] [place] [address], [place] [phone] * Triglycerides (04/16/2025 12:00 AM EDT) Triglycerides 88 0 - 150 mg/dL LAB CHEMISTRY METHOD 04/16/2025 7:13 PM EDT [facility] Blood Venous blood specimen / Unknown 04/16/2025 04/16/2025 6:35 PM EDT us Dayana Frost MD LAB BLOOD ORDERABLES Fi nal Result [facility] [address] [place] [address], [place] [phone] * Phosphorus (04/16/2025 12:00 AM EDT) Phosphorus 3.6 2.5 - 4.5 mg/dL LAB CHEMISTRY METHOD 04/16/2025 7:13 PM EDT [facility] Blood Venous blood specimen / Unknown 04/16/2025 04/16/2025 6:35 PM EDT us Dayana Frost MD LAB BLOOD ORDERABLES Fi nal Result Performing Organization Address [facility]/ZIP Co de Phone Number [facility] [address] [place] [address], [place] [phone] * Magnesium (04/16/2025 12:00 AM EDT) [facility] Magnesium 2.2 1.9 - 2.6 mg/dL LAB CHEMISTRY METHOD 04/16/2025 7:13 PM EDT [facility] Blood Venous blood specimen / Unknown 04/16/2025 04/16/2025 6:35 PM EDT us Dayana Frost MD LAB BLOOD ORDERABLES Fi nal Result Performing Organization Address [facility] de Phone Number [facility] [address] [place] [address], [place] [phone] * (ABNORMAL) Comprehensive metabolic panel (04/16/2025 12:00 AM EDT) [facility] Sodium 137 133 - 145 mmol/L LAB CHEMISTRY METHOD 04/16/2025 7:15 PM EDT [facility] Potassium 3.6 3.5 - 5.5 mmol/L LAB CHEMISTRY METHOD 04/16/2025 7:15 PM EDT [facility] Chloride 102 96 - 110 mmol/L LAB CHEMISTRY METHOD [facility]25 [facility] CO2 22 21 - 32 mmol/L LAB CHEMISTRY METHOD 04/16/2025 7:15 PM EDT [facility] Anion Gap 13(H) 3 - 11 LAB CHEMISTRY METHOD 04/16/2025 7:15 PM [facility] Glucose 49(L) 70 - 100 mg/dL LAB CHEMISTRY METHOD 04/16/2025 7:15 PM [facility] BUN 13 5 - 25 mg/dL LAB CHEMISTRY METHOD 04/16/2025 7:15 PM [facility] Creatinine 0.63 0.50 - 1.10 mg/dL LAB CHEMISTRY METHOD 04/16/2025 7:15 PM [facility] eGFR 121 >=60 mL/min/1. 73m2 LAB CHEMISTRY METHOD 04/16/2025 7:15 PM [facility] Comment:Calculation based on the Chronic Kidney Disease Epidemiology Collaboration (CKD-EPI) equation refit without adjustment for race. BUN/Creatinine Ratio 20.6 LAB CHEMISTRY METHOD 04/16/2025 7:15 PM [facility] Calcium 9.3 8.5 - 10.5 mg/dL LAB CHEMISTRY METHOD 04/16/2025 7:15 PM [facility] AST (SGOT) 20 10 - 42 unit/L LAB CHEMISTRY METHOD 04/16/2025 7:15 PM [facility] ALT (SGPT) 22 10 - 60 unit/L LAB CHEMISTRY METHOD 04/16/2025 7:15 PM [facility] Alkaline Phosphatase 151(H) 42 - 121 unit/L LAB CHEMISTRY METHOD 04/16/2025 7:15 PM [facility] Total Protein 8.4(H) 6.0 - 8.0 g/dL LAB CHEMISTRY METHOD 04/16/2025 7:15 PM [facility] Albumin 3.2 3.2 - 5.0 g/dL LAB CHEMISTRY METHOD 04/16/2025 7:15 PM [facility] Total Bilirubin 0.3 0.0 - 1.4 mg/dL LAB CHEMISTRY METHOD 04/16/2025 7:15 PM [facility] Blood Venous blood specimen / Unknown 04/16/2025 04/16/2025 6:35 PM EDT us Dayana Frost MD LAB BLOOD ORDERABLES Fi nal Result [facility] [address] [place] [address], documented in this encounter Visit Diagnoses Diagnosis Other diseases of stomach and duodenum Disease of digestive system, unspecified documented in this encounter Additional Health Concerns Active Problems Noted Date Diagnosed Date Autogenerated Problem 04/11/2025 documented as of this encounter Care Teams Business Machines Teacher Relationship Specialty Start Date End Date Cassius Alvarez MD [id number] [place] [address] PCP - General Internal Medicine 06/07/24 documented as of this encounter
--- OUTSIDE RECORDS SUMMARY | 2025-04-17 09:09 | XMS_ITS | Clinical Summary ---
Author Organization [facility] Address [address] [place] [phone] Phone Care Team Providers Care Underwater Hunter Name Role Phone Neli Andrews MD Primary [...] 2 - PCV) 10/16/2011 PAP SMEAR 2013 INFLUENZA VACCINE (#1) 2025 , 05/01/2021, 04/17/2020, Additional history exists COVID-19 VACCINE (2024- season) 2025 04/18/2022, 10/09/2021, 05/17/2021, Additional history exists Adult [...] file Insurance MEDICARE PART A & B [facility] ONE CARE MEDICARE REPLACEMENT [employer] [facility] MEDICARE PART A & B [facility] ONE CARE MEDICARE REPLACEMENT [place] [id number] MEDICARE PART A & B MEDICARE PART A & B MEDICARE PART A & B CARE MEDICARE REPLACEMENT [place] [employer] [id number] MEDICARE PART A & B [facility] CARE MEDICARE REPLACEMENT MEDICARE PART A & B [facility] MEDICARE REPLACEMENT [place] [id number] MED[place] [phone] MEDICARE PART A & B [facility] ONE CARE MEDICARE REPLACEMENT Care Teams Underwater Hunter Relationship Specialty Start Date End Date Neli Andrews MD [address] [place] [address] PCP - General Internal Medicine 06/16/17 Additional Source Comments The information contained in this document represents components of the legal health record. It is not the complete legal health record.[facility]
[2025-04-17 10:22] LABS: MANUAL DIFF FLAG NO
[2025-04-17 10:27] LABS: Hematocrit 36.3 % (37.0-47.0); Hemoglobin 11.8 g/dl (12.0-16.0); Imm Gran Abs Auto 0.04 X10*3/uL (0.00-0.03); Imm Gran Pct Auto 0.4 % (0.0-0.4); Lymphocytes Absolute Auto 2.7 X10*3/uL (1.2-4.9); Mean Corpuscular HGB Conc 32.5 g/dl (31.0-35.0); Mean Corpuscular Hemoglobin 31.2 pg (27.0-33.0); Mean Corpuscular Volume 96.0 fL (80.0-98.0); NRBC Abs Auto 0.000 X10*3/uL (0.0-0.012); NRBC Pct Auto 0.0 /100WBC (0.0-0.2); Platelet Count 344 X10*3/uL (160-400); Red Blood Count 3.78 X10*6/uL (4.20-5.50); White Blood Count 10.1 X10*3/uL (4.8-10.8)
[2025-04-17 10:42] LABS: Alanine Aminotransferase 18 U/L (0-31); Aspartate Amino Transferase 28 U/L (5-31); Estimated Glomerular Filt Rate > 60
== END 2025-04-17 08:33 | disposition home or self-care (01) ==
LOC: HO.HMGCLDS 08:32
PROVIDERS: PCP Internal Medicine; Visit Provider Internal Medicine Rheumatology
DX: M45.8 Ankylosing spondylitis sacral and sacrococcygeal region (principal); Z79.60 Long term (current) use of unspecified immunomodulators and immunosuppressants
CPT/HCPCS: 36415; 82565; 84450; 84460; 85025; 85652; 86140

== ENCOUNTER 2025-06-18 09:55 | Day surgery (SDC) | payer OTHER, SELFPAY ==
--- OUTSIDE RECORDS SUMMARY | 2024-05-08 07:31 | XMS_ITS | Encounter Summary ---
Author Organization [facility] [place] [address] Care Team Providers Care Chemical Processing Supervisor Name Role Phone Cassius Alvarez MD Primary Care Provider [phone] Encounter Details Date Type Department Care Team (Late st Contact Info) Description 05/08/2024 8:31 AM EDT Hospital Encounter TH HISTORIC ENCOUNTERS EASTERN CONVERSION ONLY Chelsea Singh MD [address] [place] [address] Social History Tobacco Use Types Packs/Day Years Used Date Smoking Tobacco: Never Smokeless Tobacco: Never Alcohol Use Standard Drinks/Week Comments Yes 0 (1 standard drink = 0.6 oz pur e alcohol) Housing Instability Answer Date Recorde d Are you worried that in the next 2 months you may not have stable housing? No 05/04/2025 Food Access & Nutrition Answer Date Rec orded Do you have access to a vari ety of food including fruits and vegetables? Yes 05/04/2025 Access to Healthcare Answer Date Record ed Within the last 3 months, ho w many times did you visit the emergency department for your medical care? 10 05/04/2025 Health Literacy Answer Date Recorded How often do you need to hav e someone help you when you read instructions, pamphlets, or other written material from your doctor or pharmacy? Rarely 05/04/2025 Caregiver: How often do you need to have someone help you when you read instructions, pamphlets, or other written material from your doctor or pharmacy? Not on file 05/04/2025 Financial Risk Answer Date Recorded How hard is it for you to pa y for the very basics like food, housing, medical care, and air conditioning / heating? Not very hard 05/04/2025 Transportation Answer Date Recorded Has the lack of transportati on kept you from meetings, work, or from getting things needed for daily living? No Has the lack of transportati on kept you from medical appointments or from getting medications? No 05/04/2025 Social Isolation Answer Date Recorded How often do you feel lonely or isolated from th ose around you? Rarely 05/04/2025 Food Risk Answer Date Recorded Within the past 12 months we worried whether our food would run out before we got money to buy more. Never true 05/04/2025 Within the past 12 months th e food we bought just didn't last and we didn't have money to get more. Never true 05/04/2025 Dependent Care Answer Date Recorded Do you need help finding or paying for care for your loved ones. For example, children's attendant or elderly care for an older adult? No 05/04/2025 Education Answer Date Recorded Do you think completing more education or training, like finishing a GED, going to college, or learning a trade, would be helpful for you? N/A 05/04/2025 Employment and Income Answer Date Recor ded During the last four weeks, have you been actively looking for work? No 05/04/2025 Living Situation Answer Date Recorded What is your living situation? Unrecognized valu e 05/04/2025 Interpersonal Safety Answer Date Record ed Physical Abuse Unrecognized value 05/04/2025 Verbal Abuse Unrecognized value 05/04/2025 Comments No Sex and Gender Information Value Date Recorded Sex Assigned at Female 06/19/2024 12:07 PM EST Legal Sex Female 2:35 AM EST Gender Identity Female 06/19/2024 12:07 PM EST Sexual Orientation Straight 06/19/2024 12 :07 PM EST documented as of this encounter Last Filed Vital Signs Vital Sign Reading Time Taken Comments Blood Pressure 109/67 05/08/2024 9:08 AM EDT Sit ting Left arm Pulse 72 05/08/2024 9:08 AM EDT Temperature - - Respiratory Rate - - Oxygen Saturation - - Inhaled Oxygen Concentration - - Weight 93.9 kg (207 lb) 05/08/2024 9:08 AM EDT Height 160 cm (5' 3 ) 03/06/2024 8:37 AM EDT Body Mass Index 36.67 05/03/2024 11:49 AM EDT documented in this encounter Functional Status * Calculated C-SSRS Risk Score (Lifetime/Recent) Answer Date of Assessment Author No Risk Indicated 06/07/2025 4:59 PM EST Chico Landers RN * [place] Suicide Severity Rating Scale (Screener/Recent Self-Report) Question Answer Date of Assessment Author 1. Wish to be (Past 1 Month) No 025 4:59 PM Chico Paz RN 2. Non-Specific Active Suici angie Thoughts (Past 1 Month) No 06/07/2025 4:59 PM EST Stef Landers RN 4. Active Suicidal Ideation with Some Intent to Act, Without Specific Plan (Past 1 Month) No 06/16/2024 4:48 PM EST Lorin Cordova RN 5. Active Suicidal Ideation with Specific Plan and Intent (Past 1 Month) No 06/16/2024 4:48 PM EST Lorin Valente RN 6. Suicidal Behavior (Lifetime) No 5 4:59 PM EST Chico Landers RN 6. Suicidal Behavior (3 Months) No 7:07 AM EDT Sofi Song RN documented as of this encounter Progress Notes * Chelsea Singh MD - 05/08/2024 9:15 AM EDT CHIEF COMPLAINT: Follow-up IDENTIFIER:Jia Valdez is a 33 y.o. female. HPI: Patient is a very pleasant 33-year-old female, who came for follow-up regarding iron deficiency anemia, patient received intravenous iron infusion with significant improvement in her symptoms, patient has gastric bypass surgery few years ago, most likely has anemia secondary to malabsorption. ROS: Has been feeling much more energetic Her fatigue has gone The only thing he noticed she did not have any menses since iron infusion PAST MEDICAL HISTORY: Anxiety/depression OCD ADHD Asthma Migraine headache Nephrolithiasis Degenerative disc disease Obesity Bariatric surgery (gastric bypass and prior to that gastric loop) Hypertension POTS Bulimia Vitamin D deficiency Anemia Lumbar radiculopathy ?? PAST SURGICAL HISTORY: Gastric loop surgery Gastric bypass surgery ?? SOCIAL HISTORY: She never smoke She drinks very occasionally/socially She is single, she had 1 child who is [id number] FAMILY HISTORY: Noncontributory Current Outpatient Medications: ??? Acetaminophen Extra Strength 500 MG TABS, , Disp: , Rfl: ??? albuterol 108 (90 Base) MCG/ACT inhaler, Inhale 2 puffs into the lungs every 6 (six) hours as needed., Disp: , Rfl: ??? ARIPiprazole (ABILIFY) 5 MG tablet, Take 1 tablet (5 mg total) by mouth daily., Disp: , Rfl: ??? escitalopram (LEXAPRO) 20 MG tablet, , Disp: , Rfl: ??? fluticasone-vilanterol (Breo Ellipta) 100-25 MCG/ACT inhaler, INHALE 1 PUFF INTO THE LUNGS DAILY, Disp: , Rfl: ??? hydrOXYzine (ATARAX) 10 MG tablet, TAKE 1 TABLET BY MOUTH 3 TO 4 TIMES DAILY NEEDED FOR ANXIETY, Disp: , Rfl: ??? Melatonin 1 MG TABS tablet, Take 1 tablet (1 mg total) by mouth every night at bedtime., Disp: , Rfl: ??? metoprolol succinate (TOPROL-XL) 24 hr tablet 25 mg, Take 1 tablet (25 mg total) by mouth daily., Disp: , Rfl: ??? mirtazapine (REMERON) 7.5 MG tablet, Take 1 tablet (7.5 mg total) by mouth every night at bedtime., Disp: , Rfl: ??? Multiple Vitamins-Minerals (Bariatric Multivitamins/Iron) CAPS, , Disp: , Rfl: ??? norethindrone (MICRONOR) 0.35 MG tablet, , Disp: , Rfl: ??? omeprazole (PriLOSEC) 40 MG capsule, 1 capsule (40 mg total)., Disp: , Rfl: ??? Taltz 80 MG/ML SOAJ, , Disp: , Rfl: You are allergic to the following Date Reviewed: 05/08/2024 Allergen Reactions Infliximab Not Noted Other reaction(s): Headaches, SEVERE HEADACHE PHYSICAL EXAM: BP 109/67 (BP Location: Left arm) Pulse 72 Temp 97.7 ??F (36.5 ??C) (Temporal) Wt 93.9 kg (207 lb) SpO2 100% BMI 36.67 kg/m?? ECOG 0 APPEARANCE: Alert and oriented x 3 in no acute distress EYES: nonicteric sclera pink conjunctiva ORAL CAVITY: No erythema or exudates NECK: Neck supple, no significant adenopathy, HEART: normal S1 and S2 LUNG: clear to auscultation bilaterally LYMPH NODES: No palpable superficial adenopathy ABDOMEN: soft, nontender and no organomegaly appreciated EXTREMITIES: No edema edema or tenderness LABS: WBC 9.1, hemoglobin 13.7 g, hematocrit 44.2%, MCV 94 and platelet count 274 Iron studies TIBC 292, iron saturation 27% and ferritin 191 TSH 1.55 IMPRESSION: SNOMED CT(R) 1. Other iron deficiency anemia IRON DEFICIENCY ANEMIA Patient is a very pleasant 33-year-old female who has gastric bypass surgery few years ago, came to me for evaluation of iron deficiency anemia, patient received intravenous iron infusion with an excellent response. I explained patient in detail about malabsorption of iron especially in young girls who are menstruating develop severe or significant iron deficiency anemia. If patient hassignificant menorrhagia they may need iron infusion every year but most of the folks including postmenopausal woman and man do not need iron infusion more than once every few years. PLAN: Recommend to PCP to check CBC and iron studies once a year, if there is any significant drop in hemoglobin and iron level, I can see her again to arrange intravenous iron infusion Patient does not need any further hematology workup at this time Chelsea Singh MD documented in this encounter Plan of Treatment Upcoming Encounters Date Type Department Care Team (Late st Contact Info) Description 06/14/2025 7:45 AM EST Hospital Encounter [facility] Endoscopy [address] [place] [phone] Angelika Verde MD [address] [facility] [address] [place] [address] Nj Hernandez, JOCKEY ROOM CUSTODIAN [address] [facility] [address] [place] [address] Jordin Salvador MD [address] [place] [address] 07/17/2025 8:00 AM EST Appointment [facility] Nuclear Medicine [address] [place] [address] 07/18/2025 9:00 AM EST Office Visit Bariatric Surgery - [place] [address] [facility] [address] [place] [phone] Dayana Frost MD [address] [place] [phone] documented as of this encounter Procedures Procedure Name Priority Date/Time Associated Diagnosis Comments ..MISCELLANEOUS REFERENCE LAB TEST 05/08/2024 documented in this encounter Results * Miscellaneous reference lab test (05/08/2024) us Provider Onbase LAB BLOOD ORDERABLES Final Re sult documented in this encounter Visit Diagnoses Not on filedocumented in this encounter Additional Health Concerns Infection Onset Date Last Indicated Resolved Time C. difficile Rule-Out 03/07/2025 03/07/20252024 3:25 PM EDT Gastrointestinal Rule-Out 04/11/2025 04/14/2025 11:49 AM EDT Gastrointestinal Rule-Out Comment:Prior admission 04/20/2025 04/20/2025 04/25/2025 9:12 AM EDT C. difficile Rule-Out 04/20/2025 04/20/20252024 6:42 PM EDT Respiratory Rule-Out 05/04/2025 05/04/2025 025 10:38 PM EDT COVID-19 Rule-Out 05/04/2025 05/04/2025 05/04/2025 10:38 PM EDT Respiratory Rule-Out 05/30/2025 05/30/2025 025 12:23 PM EST COVID-19 Rule-Out 05/30/2025 05/30/2025 05/30/2025 12:23 PM EST documented as of this encounter Care Teams Chemical Processing Supervisor Relationship Specialty Start Date End Date Cassius Alvarez MD PCP - General Internal Medicine 04/03/21 06/06/24 documented as of this encounter
--- OUTSIDE RECORDS SUMMARY | 2025-06-07 17:03 | XMS_ITS | Encounter Summary ---
Author Organization [facility] [place] [address] Care Team Providers Care Culinary Art Teacher Name Role Phone Cassius Alvarez MD Primary Care Provider [phone] Reason for Visit * Reason Comments Abdominal Pain Encounter Details Date Type Department Care Team ([facility] st Contact Info) Description 06/07/2025 5:03 PM EST - 06/07/2025 9:28 PM EST Emergency [facility] Emergency [address] [place] [phone] Doris Capone MD [address] [place] [address] Gastroparesis (Primary Dx); Epigastric pain; Nausea and vomiting, unspecified vomiting type Discharge [...] for your loved ones. For example, children's ministries director or elderly care for an older adult? [...] Sign Reading Time Taken Comments Blood Pressure 120/88 06/07/2025 6:38 PM EST Pulse 78 06/07/2025 6:38 PM EST Temperature 36.7 C (98 F) 06/07/2025 6:38 PM EST Respiratory Rate 16 06/07/2025 6:38 PM EST Oxygen Saturation 99% 06/07/2025 6:38 PM EST Inhaled Oxygen Concentration - - Weight 86.6 kg (191 lb) 06/07/2025 5:03 PM EST Height 157.5 cm (5' 2 ) 06/07/2025 5:03 PM EST Body Mass Index 34.93 06/07/2025 5:03 PM EST documented in this encounter Functional Status * Are you deaf or do you have serious difficulty hearing? Answer Date of Assessment Author No 06/02/2025 2:59 PM EST Yaron Banuelos RN * Are you blind or do you have serious difficulty seeing, even when wearing glasses? Answer Date of Assessment Author No 06/02/2025 2:59 PM EST Yaron Banuelos RN * Do you have serious difficulty walking or climbing stairs? Answer Date of Assessment Author No 06/02/2025 2:59 PM Yaron Joseph RN * Do you have serious difficulty dressing or bathing? Answer Date of Assessment Author No 06/02/2025 2:59 PM Yaron Joseph RN * Because of a physical, mental, or emotional condition, do you have serious difficulty doing errandsalone such as visiting the doctor? Answer Date of Assessment Author No 06/02/2025 2:59 PM Yaron Joseph RN * Calculated C-SSRS Risk Score (Lifetime/Recent) Answer Date of Assessment Author No Risk Indicated 06/07/2025 4:59 PM EST Chico Landers RN * Hutchinson Suicide Severity Rating Scale (Screener/Recent Self-Report) Question Answer Date of Assessment Author 1. Wish to be (Past 1 Month) No 025 4:59 PM EST Chico Landers RN 2. Non-Specific Active Suici angie Thoughts (Past 1 Month) No 06/07/2025 4:59 PM EST Stef Landers RN 6. Suicidal Behavior (Lifetime) No 5 4:59 PM EST Chico Landers RN documented as of this encounter Mental Status * Because of a physical, mental, or emotional condition, do you have serious difficulty concentrating, remembering, or making decisions? (5 years old or older) Answer Entry Date Author No 06/02/2025 2:59 PM EST Yaron Banuelos RN documented in this encounter Discharge Instructions * Discharge Instructions* Doris Capone MD - 06/07/2025 8:46 PM EST Please continue to avoid eating until your symptoms improved. Even if you continue to have nausea and vomiting, you are receiving IV fluids and TPN via your PICC line. There is not much more we wouldoffer you in the hospital. Please follow-up with Dr Frost as scheduled. * Attachments The following attachments cannot be sent through Care Everywhere. * Gastroparesis (Luxembourgish) documented in this encounter Medications at Time of Discharge acetaminophen (TYLENOL) 500 mg tablet Take 1 tablet (500 mg total) by mouth every 6 (six) hours if needed for mild pain for up to 12 doses. 12 tablet 05/30/2025 albuterol HFA (PROAIR HFA ; PROVENTIL HFA ; VENTOLIN HFA) 90 mcg/actuation inhaler Inhale 2 puffs by mouth every 4 (four) hours if needed for wheezing. 1 each 05/30/2025 ARIPiprazole (ABILIFY) 5 mg tablet Take 0.5 tablets (2.5 mg total) by mouth at bedtime. at bedtime. blood-glucose meter kit 1 Kit by Does not apply route daily. 04/10/2024 cholecalciferol (VITAMIN D-3) 25 mcg (1,000 unit) capsule Take 1 capsule (1,000 Units total) by mouth 1 (one) time each day. 09/24/2024 cholestyramine (QUESTRAN) 4 gram powder Take 1 packet (4 g total) by mouth 2 (two) times a day with meals. Dissolve in 8 oz of liquid and drink before a meal 60 packet 3 05/07/2025 Cholestyramine Light 4 gram packet if needed. 05/07/2025 clonazePAM (KlonoPIN) 0.5 mg tablet Take 1 tablet (0.5 mg total) by mouth 1 (one) time each day. 07/06/2024 diphenhydrAMINE (BENADRYL) 25 mg capsule Take 1 capsule (25 mg total) by mouth every 4 (four) hours if needed (nausea) for up to 30 doses. 30 capsule 05/30/2025 erythromycin base (E-MYCIN) 500 mg tablet Take 1 tablet (500 mg total) by mouth 4 (four) times a day. 120 tablet 05/18/2025 5 escitalopram (LEXAPRO) 20 mg tablet Take 1 tablet (20 mg total) by mouth at bedtime. famotidine (PEPCID) 40 mg tablet Take 1 tablet (40 mg total) by mouth at bedtime. 30 each 3 10/31/2024 6 glucose blood test strip Use as instructed 100 each 12 05/03/2025 6 methocarbamoL (ROBAXIN) 500 mg tablet Take 1 tablet (500 mg total) by mouth 1 (one) time each day if needed for muscle spasms. metoclopramide (REGLAN) 10 mg tablet Take 1 tablet (10 mg total) by mouth every 6 (six) hours if needed (nausea) for up to 14 doses. 14 each 05/30/2025 metoprolol succinate (TOPROL-XL) 25 mg 24 hr tablet Take 1 tablet (25 mg total) by mouth at bedtime. Do not crush or chew. mirtazapine (REMERON) 7.5 mg tablet Take 1 tablet (7.5 mg total) by mouth at bedtime. 06/18/2021 norethindrone (RISSA,AYDE,HE ATHER,MICRONOR) 0.35 mg tablet Take 1 tablet (0.35 mg total) by mouth 1 (one) time each day. 84 tablet 1 01/15/2025 pantoprazole (PROTONIX) 40 mg EC tablet Take 1 tablet (40 mg total) by mouth 1 (one) time each day before breakfast. Do not crush, chew, or split. 30 each 06/06/2025 scopolamine (TRANSDERM-SCOP) 1 mg over 3 days patch 3 dayIndications:N ausea and vomiting in adult Apply 1 patch topically every 3rd (third) day. 1 patch 04/22/2025 documented as of this encounter Discharge Disposition Disposition Code Departure Means Destination Comment s Home or Self Care documented in this encounter Progress Notes * Chico Landers RN - 06/07/2025 4:59 PM EST Pt presents with c/o abdominal pain, vomiting ongoing since yesterday. Pt seen yesterday for same, states symptoms are not improving. Hx of gastroparesis. * Doris Capone MD - 06/07/2025 4:58 PM EST EMERGENCY DEPARTMENT Provider Note Room: Patient: Jia Valdez PCP: Cassius Alvarez MD Patient : 1990 Patient Department: [facility] EMERGENCY [address] [facility] [address] Dept: [phone] Triage Chief Complaint: Abdominal Pain History of Present Illness: 34-year-old female with known gastroparesis presenting with epigastric pain, nausea and vomiting. Patient was seen in our department on 06/06/2025 for the same. States that she has persistent symptoms, cannot advance her diet. Home medications not working. Of note, patient is on nightly TPN and also receives IV fluids outpatient via PICC. ED Course / Medications given / MDM: 34-year-old female presenting with epigastric pain, nausea and vomiting in the setting of known gastroparesis. Alkaline phosphatase continues to be slightly elevated but patient had normal right upper quadrant ultrasound on 06/06/2025 as well as unremarkable CT abdomen and pelvis on 05/30/2025. Shewas given IM Compazine, tolerated oral Tylenol. Continues to endorse nausea and states she has beenvomiting but no evidence of emesis in her emesis bag. She is hemodynamically stable with no significant electrolyte abnormalities, I have low concern for dehydration. Patient will continue to receivenutrition and fluids through her PICC line. Advised that she continue supportive measures at home, p er Dr. Frost's communication with pt (see below), continue to avoid oral intake until symptoms improve. Patient discharged home in stable condition with ED return precautions provided. ED Course as of 06/07/252203 Edyta Jun 07, [id number] Alkaline Phosphatase(!): 136 [EK] [address] Frost on 06/06, Maryam Ro. As long as you're tolerating the TPN and IVF, then ER won't do much extra. Give you stomach a break. Fast for 1-2 days, to try to give it as much time as you can to empty. I was looking for a gastroparesis specialist. There seems to be one in [facility] so I put areferral there (it's the closest), but I also called them to double check, and haven't heard back yet. Will let you know if anything changes. [EK] ED Course User Index [EK] Doris Capone MD Clinical Impressions as of 06/07/252203 Gastroparesis Epigastric pain Nausea and vomiting, unspecified vomiting type Medications prochlorperazine (COMPAZINE) injection 10 mg (10 mg intramuscular Given 06/07/251938) acetaminophen (TYLENOL) tablet 1,000 mg (1,000 mg oral Given 06/07/252012) Clinical Impression(s): Final diagnoses: [K31.84] Gastroparesis [R10.13] Epigastric pain [R11.2] Nausea and vomiting, unspecified vomiting type Disposition: Discharge Physical Examination: Temp: 36.8 ??C (98.2 ??F) BP: 119/80 Heart Rate: 81 Resp: 16 SpO2: 99 % Nursing notes and vitals reviewed. Constitutional: Well-developed, well-nourished, and in no distress. Head: Normocephalic and atraumatic. Eyes: Conjunctivae and EOM are normal. Neck: Normal range of motion. No tracheal deviation present. Cardiovascular: Normal rate, extremities warm and well-perfused. Pulmonary/Chest: Effort normal. No respiratory distress. Abdominal: Soft. No distension. Musculoskeletal: Normal range of motion. No deformity. Neurological: Alert. GCS 15. Moving all 4 extremities equally and spontaneously. Skin: Warm and dry. Lab & Imaging Results: Encounter Date: 06/02/25 ECG 12 lead Result Value Ventricular Rate ECG 84 Atrial Rate 84 P-R Interval 126 QRS Duration 70 Q-T Interval 398 QTc 470 P Wave [place] 66 R [place] -17 T [place] 36 ECG Interpretation Normal sinus rhythm Normal ECG When compared with ECG of 30-MAY-2025 10:30, No significant change was found Confirmed by RANDI ERNANDEZ ([id number]) on 06/03/2025 5:38:59 PM *Note: Due to a large number of results and/or encounters for the requested time period, some results have not been displayed. A complete set of results can be found in Results Review. If an EKG was performed on today's visit and is documented above I independently interpreted/read the EKG as noted above at the time of service as above. Labs Reviewed COMPREHENSIVE METABOLIC PANEL - Abnormal Result Value Sodium 137 Potassium 3.9 Chloride 104 CO2 23 Anion Gap 10 Glucose 90 BUN 11 Creatinine 0.76 eGFR 107 BUN/Creatinine Ratio 14.5 Calcium 8.2 (*) AST (SGOT) 19 ALT (SGPT) 22 Alkaline Phosphatase 136 (*) Total Protein 7.1 Albumin 3.7 Total Bilirubin 0.3 MAGNESIUM - Normal Magnesium 2.0 LIPASE - Normal Lipase 24 POC , URINE DIAGNOSTIC - Normal HCG, Ur POC Negative POC hCG Int QC Pass? Yes CBC AND DIFFERENTIAL Narrative: The following orders were created for panel order CBC and differential. Procedure Abnormality Status --------- ------ CBC auto differential[[id number]] Final result Please view results for these tests on the individual orders. CBC WITH AUTO DIFFERENTIAL WBC 8.3 RBC 3.90 Hemoglobin 12.2 Hematocrit 37.4 MCV 95.9 MCH 31.3 MCHC 32.6 RDW 13.8 Platelets 308 MPV 9.5 NRBC 0.0 NRBC Absolute 0.00 Neutrophils Relative 59.5 Lymphocytes Relative 33.8 Monocytes Relative 4.1 Eosinophils Relative 1.6 Basophils Relative 0.6 Immature Granulocytes Relative 0.4 Neutrophils Absolute 4.94 Lymphocytes Absolute 2.80 Monocytes Absolute 0.34 Eosinophils Absolute 0.13 Basophils Absolute 0.05 Immature Granulocytes Absolute 0.03 No orders to display I personally reviewed the patient's images and agree with radiologist interpretation unless otherwise noted here or in ED course or MDM section Procedures: Procedures Discharge Medication List as of 06/07/2025 8:54 PM CONTINUE these medications which have NOT CHANGED Details acetaminophen (TYLENOL) 500 mg tablet Take 1 tablet (500 mg total) by mouth every 6 (six) hours if needed for mild pain for up to 12 doses., Starting Wed05/30/2025, Normal albuterol HFA (PROAIR HFA ; PROVENTIL HFA ; VENTOLIN HFA) 90 mcg/actuation inhaler Inhale 2 puffs by mouth every 4 (four) hours if needed for wheezing., Starting Wed05/30/2025, Until Wed06/29/2025 at 2359, Normal ARIPiprazole (ABILIFY) 5 mg tablet Take 0.5 tablets (2.5 mg total) by mouth at bedtime. at bedtime., Historical Med blood-glucose meter kit 1 Kit by Does not apply route daily., Historical Med cholecalciferol (VITAMIN D-3) 25 mcg (1,000 unit) capsule Take 1 capsule (1,000 Units total) by mouth 1 (one) time each day., Starting Wed09/24/2024, Historical Med cholestyramine (QUESTRAN) 4 gram powder Take 1 packet (4 g total) by mouth 2 (two) times a day withmeals. Dissolve in 8 oz of liquid and drink before a meal, Starting Wed05/07/2025, Until Wed05/07/2026, Normal Cholestyramine Light 4 gram packet if needed., Starting Wed05/07/2025, Historical Med clonazePAM (KlonoPIN) 0.5 mg tablet Take 1 tablet (0.5 mg total) by mouth 1 (one) time each day., Starting Wed07/06/2024, Historical Med diphenhydrAMINE (BENADRYL) 25 mg capsule Take 1 capsule (25 mg total) by mouth every 4 (four) hoursif needed (nausea) for up to 30 doses., Starting Wed05/30/2025, Normal erythromycin base (E-MYCIN) 500 mg tablet Take 1 tablet (500 mg total) by mouth 4 (four) times a day., Starting Wed05/18/2025, Until Wed06/17/2025, Normal escitalopram (LEXAPRO) 20 mg tablet Take 1 tablet (20 mg total) by mouth at bedtime., Historical Med famotidine (PEPCID) 40 mg tablet Take 1 tablet (40 mg total) by mouth at bedtime., Starting Wed10/31/2024, Until Wed10/31/2025, Normal glucose blood test strip Use as instructed, Normal methocarbamoL (ROBAXIN) 500 mg tablet Take 1 tablet (500 mg total) by mouth 1 (one) time each day if needed for muscle spasms., Historical Med metoclopramide (REGLAN) 10 mg tablet Take 1 tablet (10 mg total) by mouth every 6 (six) hours if needed (nausea) for up to 14 doses., Starting Wed05/30/2025, Normal metoprolol succinate (TOPROL-XL) 25 mg 24 hr tablet Take 1 tablet (25 mg total) by mouth at bedtime. Do not crush or chew., Historical Med mirtazapine (REMERON) 7.5 mg tablet Take 1 tablet (7.5 mg total) by mouth at bedtime., Historical Med norethindrone (RISSA,AYDE,MONTSERRAT,MICRONOR) 0.35 mg tablet Take 1 tablet (0.35 mg total) by mouth1 (one) time each day., Starting Wed01/15/2025, Normal pantoprazole (PROTONIX) 40 mg EC tablet Take 1 tablet (40 mg total) by mouth 1 (one) time each day before breakfast. Do not crush, chew, or split., Starting Wed06/06/2025, Until Wed07/06/2025, Normal scopolamine (TRANSDERM-SCOP) 1 mg over 3 days patch 3 day Apply 1 patch topically every 3rd (third)day., Starting 04/22/2025, Normal Allergies: Infliximab Medical History[1] Surgical History[2] Social History[3] Doris Capone MD 06/07/252203 [1] Past Medical History: Diagnosis Date Abdominal pain NAUSEA FROM BYPASS Anemia Anxiety Arthritis Asthma Chronic kidney disease kidney stones Chronic pain disorder Depression Dizziness GERD (gastroesophageal reflux disease) Irritable bowel syndrome Joint pain Liver abscess Low back pain Obesity PONV (postoperative nausea and vomiting) Thoracic radiculopathy [2] Past Surgical History: Procedure Laterality Date ADENOIDECTOMY BARIATRIC SURGERY 08/12/2019 laparoscopic sleeve gastrectomy ([place]) [...] GG anastomosis, upper GI endoscopy ([place]) CHOLECYSTECTOMY COLONOSCOPY ESOPHAGOGASTRODUODENOSCOPY GASTRIC BYPASS HERNIA REPAIR MYOMECTOMY 11/29/2023 endometrial biopsy and abdominal myomectomy ([place]) UPPER GASTROINTESTINAL ENDOSCOPY [3] Social History Tobacco Use Smoking status: Never Smokeless tobacco: Never Substance Use Topics Alcohol use: Yes Drug use: No Doris Capone MD 06/09/25 0334 documented in this encounter Plan of Treatment Upcoming Encounters Date Type Department Care Team (Late st Contact Info) Description 06/14/2025 7:45 AM EST Hospital Encounter [facility] Endoscopy [address] [place] [phone] Angelika Verde MD [address] [facility] [address] [place] [address] Nj Hernandez CRNA [address] [address] Jordin Salvador MD [address] [place] [address] 07/17/2025 8:00 AM EST Appointment [facility] Nuclear Medicine [address] [place] [phone] 07/18/2025 9:00 AM EST Office Visit Bariatric Surgery - [place] [address] [facility] [address] [place] [phone] Dayana Frost MD [address] [place] [phone] documented as of this encounter Goals Goal Patient Goal Type Associated Problems Recent Progress Patient-Stated? Author Autogenerat ed Goal Care Plan Autogenerated Problem No Bouchra Collado RN Autogenerat ed Goal Care Plan Autogenerated Problem No Rosalva Bruce documented as of this encounter Procedures Procedure Name Priority Date/Time Associated Diagnosis Comments CBC WITH AUTO DIFFERENTIAL STAT 06/07/2025 5:19 PM EST CBC AND DIFFERENTIAL STAT 06/07/2025 5:19 PM EST MAGNESIUM STAT 06/07/2025 5:19 PM EST LIPASE STAT 06/07/2025 5:19 PM EST COMPREHENSIVE METABOLIC PANEL STAT 06/07/2025 5:19 PM EST POC , URINE DIAGNOSTIC STAT 06/07/2025 5:13 PM EST documented in this encounter Results * CBC auto differential (06/07/2025 5:19 PM EST) WBC 8.3 4.8 - 10.8 K/mcL LAB HEMETOLOGY METHOD 06/07/2025 6:02 PM [facility] RBC 3.90 3.80 - 4.80 M/mcL LAB HEMETOLOGY METHOD 06/07/2025 6:02 PM [facility] Hemoglobin 12.2 11.5 - 16.0 g/dL LAB HEMETOLOGY METHOD 06/07/2025 6:02 PM [facility] Hematocrit 37.4 35.0 - 47.0 % LAB HEMETOLOGY METHOD 06/07/2025 6:02 PM [facility] MCV 95.9 79.0 - 98.0 FL LAB HEMETOLOGY METHOD 06/07/2025 6:02 PM [facility] MCH 31.3 27.0 - 32.0 pcg LAB HEMETOLOGY METHOD 06/07/2025 6:02 PM [facility] MCHC 32.6 32.0 - 37.0 g/dL LAB HEMETOLOGY METHOD 06/07/2025 6:02 PM [facility] RDW 13.8 11.0 - 15.0 % LAB HEMETOLOGY METHOD 06/07/2025 6:02 PM [facility] Platelets 308 130 - 400 K/mcL LAB HEMETOLOGY METHOD 06/07/2025 6:02 PM [facility] MPV 9.5 7.0 - 11.0 FL LAB HEMETOLOGY METHOD 06/07/2025 6:02 PM [facility] NRBC 0.0 <1.0 % LAB HEMETOLOGY METHOD 06/07/2025 6:02 PM [facility] NRBC Absolute 0.00 <0.10 K/mcL LAB HEMETOLOGY METHOD 06/07/2025 6:02 PM [facility] Neutrophils Relative 59.5 % LAB HEMETOLOGY METHOD 06/07/2025 6:02 PM [facility] Lymphocytes Relative 33.8 % LAB HEMETOLOGY METHOD 06/07/2025 6:02 PM [facility] Monocytes Relative 4.1 % LAB HEMETOLOGY METHOD 06/07/2025 6:02 PM [facility] Eosinophils Relative 1.6 % LAB HEMETOLOGY METHOD 06/07/2025 6:02 PM [facility] Basophils Relative 0.6 % LAB HEMETOLOGY METHOD 06/07/2025 6:02 PM [facility] Immature Granulocytes Relative 0.4 % LAB HEMETOLOGY METHOD 06/07/2025 6:02 PM EST [facility] Neutrophils Absolute 4.94 1.50 - 7.00 K/mcL LAB HEMETOLOGY METHOD 06/07/2025 6:02 PM EST [facility] Lymphocytes Absolute 2.80 1.00 - 5.00 K/mcL LAB HEMETOLOGY METHOD 06/07/2025 6:02 PM EST [facility] Monocytes Absolute 0.34 0.20 - 1.00 K/mcL LAB HEMETOLOGY METHOD 06/07/2025 6:02 PM EST [facility] Eosinophils Absolute 0.13 0.00 - 0.50 K/mcL LAB HEMETOLOGY METHOD 06/07/2025 6:02 PM EST [facility] Basophils Absolute 0.05 0.00 - 0.20 K/mcL LAB HEMETOLOGY METHOD 06/07/2025 6:02 PM [facility] Immature Granulocytes Absolute 0.03 0.00 - 0.03 K/mcL LAB HEMETOLOGY METHOD 06/07/2025 6:02 PM EST [facility] Blood Venous blood specimen / Unknown Venipuncture / Unknown 06/07/2025 5:19 PM EST 06/07/2025 5:45 PM EST [facility] LAB BLOOD ORDERABLES Final Result Performing Organization Address City/State/[facility] Co de Phone Number [facility] [address] [place] [address], * Lipase (06/07/2025 5:19 PM EST) Lipase 24 12 - 53 unit/L 06/07/2025 6:21 PM EST [facility] Blood Venous blood specimen / Unknown Venipuncture / Unknown 06/07/2025 5:19 PM EST 06/07/2025 5:45 PM EST [facility] LAB BLOOD ORDERABLES Final Result Performing Organization Address City/[facility]/ZIP Co de Phone Number [facility] [address] [place] [address], [place] [phone] * Magnesium (06/07/2025 5:19 PM EST) [facility] Magnesium 2.0 1.9 - 2.6 mg/dL 06/07/2025 6:21 PM [facility] Blood Venous blood specimen / Unknown Venipuncture / Unknown 06/07/2025 5:19 PM EST 06/07/2025 5:45 PM EST [facility] LAB BLOOD ORDERABLES Final Result Performing Organization Address [facility]/ZIP Co de Phone Number [facility] [address] [place] [address], [place] [phone] * (ABNORMAL) Comprehensive metabolic panel (06/07/2025 5:19 PM EST) [facility] Sodium 137 133 - 145 mmol/L 06/07/2025 6:21 PM [facility] Potassium 3.9 3.5 - 5.5 mmol/L 06/07/2025 6:21 PM [facility] Chloride 104 96 - 110 mmol/L 06/07/2025 6:21 PM [facility] CO2 23 21 - 32 mmol/L 06/07/2025 6:21 PM [facility] Anion Gap 10 3 - 11 06/07/2025 6:21 PM [facility] Glucose 90 70 - 100 mg/dL 06/07/2025 6:21 PM [facility] BUN 11 5 - 25 mg/dL 06/07/2025 6:21 PM [facility] Creatinine 0.76 0.50 - 1.10 mg/dL 06/07/2025 6:21 PM [facility] eGFR 107 >=60 mL/min/1. 73m2 06/07/2025 6:21 PM [facility] Comment:Calculation based on the Chronic Kidney Disease Epidemiology Collaboration (CKD-EPI) equation refit without adjustment for race. BUN/Creatinine Ratio 14.5 06/07/2025 6:21 PM [facility] Calcium 8.2(L) 8.5 - 10.5 mg/dL 06/07/2025 6:21 PM [facility] AST (SGOT) 19 10 - 42 unit/L 06/07/2025 6:21 PM [facility] ALT (SGPT) 22 10 - 60 unit/L 06/07/2025 6:21 PM [facility] Alkaline Phosphatase 136(H) 42 - 121 unit/L 06/07/2025 6:21 PM [facility] Total Protein 7.1 6.0 - 8.0 g/dL 06/07/2025 6:21 PM [facility] Albumin 3.7 3.2 - 5.0 g/dL 06/07/2025 6:21 PM [facility] Total Bilirubin 0.3 0.0 - 1.4 mg/dL 06/07/2025 6:21 PM [facility] Blood Venous blood specimen / Unknown Venipuncture / Unknown 06/07/2025 5:19 PM EST 06/07/2025 5:45 PM EST us [facility] LAB BLOOD ORDERABLES Final Result [facility] [address] [place] [address], * POC , urine manually resulted (06/07/2025 5:13 PM EST) HCG, Ur POC Negative Negative POC hCG Int QC Pass? Yes Yes Urine Urine specimen obtained by clean catch procedure / Unknown 06/07/2025 5:13 PM EST [facility] POINT OF CARE TEST ENTER/ED IT ORDERABLES Final Result documented in this encounter Visit Diagnoses Diagnosis Gastroparesis- Primary Epigastric pain Abdominal pain, epigastric Nausea and vomiting, unspecified vomiting type documented in this encounter Administered Medications Inactive Administered Medications - up to 3 most recent administrations Medication Order MAR Action Action Date Dose Rate Site acetaminophen (TYLENOL) tablet 1,000 mg 1,000 mg, oral, Once, On Edyta 06/07/25 at 1915, For 1 dose Given 06/07/2025 8:13 PM EST 1,000 mg prochlorperazine (COMPAZINE) injection 10 mg 10 mg, intramuscular, Once, On Edyta 06/07/25 at 1914, For 1 dose Given 06/07/2025 7:39 PM EST 10 mg Left Deltoid documented in this encounter Active and Recently Administered Medications Times are shown in EST. Scheduled Medication Order 06/05/2025 06/06/2025 06/07/2025 acetaminophen (TYLENOL) tablet 1,000 mg (COMPLETED) 1,000 mg, oral, Once, On Edyta 06/07/25 at 1915, For 1 dose 2012 (Given - Provid er: Awilda Best RN) prochlorperazine (COMPAZINE) injection 10 mg (COMPLETED) 10 mg, intramuscular, Once, On Edyta 06/07/25 at 1914, For 1 dose 1938 (Given - Provid er: Awilda Best RN) documented in this encounter Additional Health Concerns Active Problems Noted Date Diagnosed Date Autogenerated Problem 04/11/2025 Autogenerated Problem 05/16/2025 documented as of this encounter Care Teams Culinary Art Teacher Relationship Specialty Start Date End Date Cassius Alvarez MD [address] [place] [address] PCP - General Internal Medicine 06/07/24 documented as of this encounter
--- OUTSIDE RECORDS SUMMARY | 2025-06-13 17:09 | XMS_ITS | Encounter Summary ---
Author Organization [facility] [place] [address] Care Team Providers Care Client Engagement Manager Name Role Phone Cassius Alvarez MD Primary Care Provider [phone] Encounter Details Date Type Department Care Team (Late st Contact Info) Description 03/05/2025 Lab Requisition [facility] - Main Lab [address] [place] [address] Dayana Frost MD [address] [place] [phone] Postsurgical malabsorption, not elsewhere classified; Other complications [...] 11:11 PM EDT Sofi Song RN * Allen Suicide Severity Rating Scale (Screener/Recent Self-Report) Question [...] Description 06/14/2025 7:45 AM EST Hospital Encounter [facility] Endoscopy [address] [place] [phone] Angelika Verde MD 299 [facility] [address] [place] [address] Nj Hernandez CRNA [address] [address] Jordin Salvador MD 114 [place] [address] 07/17/2025 8:[address] [facility] Nuclear Medicine [address] [place] [phone] 07/18/2025 9:00 AM EST Office Visit Bariatric Surgery - [place] 175 [facility] [address] [place] [phone] Dayana Frost MD [address] [place] [phone] documented as of this encounter Procedures Procedure [...] NA heparin tube (03/05/2025 2:50 PM EDT) [facility] Extra Tube Hold for add-ons. 03/05/2025 5:02 PM EDT [facility] Comment:Auto resulted. Blood Venous blood specimen / Unknown 03/05/2025 2:50 PM EDT 03/05/2025 3:52 PM EDT Dayana Frost MD LAB BLOOD ORDERABLES nal Result [facility] [address] [place] [address], * (ABNORMAL) CBC auto differential (03/05/2025 2:50 PM EDT) [facility] WBC 12.0(H) 4.8 - 10.8 K/mcL LAB HEMETOLOGY METHOD 03/05/2025 4:13 PM EDT [facility] RBC 4.20 3.80 - 4.80 M/mcL LAB HEMETOLOGY METHOD 03/05/2025 4:13 PM EDT [facility] Hemoglobin 13.2 11.5 - 16.0 g/dL LAB HEMETOLOGY METHOD 03/05/2025 4:13 PM EDT [facility] Hematocrit 40.5 35.0 - 47.0 % LAB HEMETOLOGY METHOD 03/05/2025 4:13 PM EDT [facility] MCV 96.2 79.0 - 98.0 FL LAB HEMETOLOGY METHOD 03/05/2025 4:13 PM EDT [facility] MCH 31.4 27.0 - 32.0 pcg LAB HEMETOLOGY METHOD 03/05/2025 4:13 PM EDT [facility] MCHC 32.6 32.0 - 37.0 g/dL LAB HEMETOLOGY METHOD 03/05/2025 4:13 PM EDT [facility] RDW 13.1 11.0 - 15.0 % LAB HEMETOLOGY METHOD 03/05/2025 4:13 PM EDT [facility] Platelets 242 130 - 400 K/mcL LAB HEMETOLOGY METHOD 03/05/2025 4:13 PM EDT [facility] MPV 11.6(H) 7.0 - 11.0 FL LAB HEMETOLOGY METHOD 03/05[facility]2025 [facility] NRBC 0.0 <1.0 % LAB HEMETOLOGY METHOD 03/05/2025 4:13 PM EDT [facility] NRBC Absolute 0.00 <0.10 K/mcL LAB HEMETOLOGY METHOD 03/05/2025 4:13 PM [facility] Neutrophils Relative 66.7 % LAB HEMETOLOGY METHOD 03/05/2025 4:13 PM [facility] Lymphocytes Relative 26.6 % LAB HEMETOLOGY METHOD 03/05/2025 4:13 PM EDT [facility] Monocytes Relative 4.3 % LAB HEMETOLOGY METHOD 03/05/2025 4:13 PM [facility] Eosinophils Relative 1.3 % LAB HEMETOLOGY METHOD 03/05/2025 4:13 PM [facility] Basophils Relative 0.7 % LAB HEMETOLOGY METHOD 03/05/2025 4:13 PM [facility] Immature Granulocytes Relative 0.4 % LAB HEMETOLOGY METHOD 03/05/2025 4:13 PM EDT [facility] Neutrophils Absolute 8.00(H) 1.50 - 7.00 K/mcL LAB HEMETOLOGY METHOD 03/05/2025 4:13 PM EDT [facility] Lymphocytes Absolute 3.19 1.00 - 5.00 K/mcL LAB HEMETOLOGY METHOD 03/05/2025 4:13 PM EDT [facility] Monocytes Absolute 0.52 0.20 - 1.00 K/mcL LAB HEMETOLOGY METHOD 03/05/2025 4:13 PM EDT [facility] Eosinophils Absolute 0.15 0.00 - 0.50 K/[facility] LAB HEMETOLOGY METHOD 03/05/2025 4:13 PM EDT [facility] Basophils Absolute 0.08 0.00 - 0.20 K/mcL LAB HEMETOLOGY METHOD 03/05/2025 4:13 PM EDT [facility] Immature Granulocytes Absolute 0.05(H) 0.00 - 0.03 K/mcL LAB HEMETOLOGY METHOD 03/05/2025 4:13 PM EDT [facility] Blood Venous blood specimen / Unknown 03/05/2025 2:50 PM EDT 03/05/2025 3:52 PM EDT us Dayana Frost MD LAB BLOOD ORDERABLES Fi nal Result [facility] [address] [place] [address], * Triglycerides (03/05/2025 2:50 PM EDT) Triglycerides 137 0 - 150 mg/dL LAB CHEMISTRY METHOD 03/05/2025 4:39 PM EDT [facility] Blood Venous blood specimen / Unknown 03/05/2025 2:50 PM EDT 03/05/2025 3:52 PM EDT us Dayana Frost MD LAB BLOOD ORDERABLES Fi nal Result Performing Organization Address City/[facility]/ZIP Co de Phone Number [facility] [address] [place] [address], [place] [phone] * Phosphorus (03/05/2025 2:50 PM EDT) Phosphorus 3.3 2.5 - 4.5 mg/dL LAB CHEMISTRY METHOD 03/05/2025 4:39 PM EDT [facility] Blood Venous blood specimen / Unknown 03/05/2025 2:50 PM EDT 03/05/2025 3:52 PM EDT us Dayana Frost MD LAB BLOOD ORDERABLES Fi nal Result Performing Organization Address [facility] Co de Phone Number [facility] [address] [place] [address], [place] [phone] * Magnesium (03/05/2025 2:50 PM EDT) [facility] Magnesium 2.1 1.9 - 2.6 mg/dL LAB CHEMISTRY METHOD 03/05/2025 4:39 PM EDT [facility] Blood Venous blood specimen / Unknown 03/05/2025 2:50 PM EDT 03/05/2025 3:52 PM EDT us Dayana Frost MD LAB BLOOD ORDERABLES Fi nal Result Performing Organization Address City/[facility]/ZIP Co de Phone Number [facility] [address] [place] [address], [place] [phone] * Comprehensive metabolic panel (03/05/2025 2:50 PM EDT) Sodium 138 133 - 145 mmol/L LAB CHEMISTRY METHOD 03/05/2025 4:39 PM EDT [facility] Potassium 3.9 3.5 - 5.5 mmol/L LAB CHEMISTRY METHOD 03/05/2025 4:39 PM [facility] Chloride 109 96 - 110 mmol/L LAB CHEMISTRY METHOD 03/05/2025 4:39 PM [facility] CO2 22 21 - 32 mmol/L LAB CHEMISTRY METHOD 03/05/2025 4:39 PM [facility] Anion Gap 7 3 - 11 LAB CHEMISTRY METHOD 03/05/2025 4:39 PM [facility] Glucose 82 70 - 100 mg/dL LAB CHEMISTRY METHOD 03/05/2025 4:39 PM [facility] BUN 11 5 - 25 mg/dL LAB CHEMISTRY METHOD 03/05/2025 4:39 PM [facility] Creatinine 0.58 0.50 - 1.10 mg/dL LAB CHEMISTRY METHOD 03/05/2025 4:39 PM [facility] eGFR 123 >=60 mL/min/1. 73m2 LAB CHEMISTRY METHOD 03/05/2025 4:39 PM [facility] Comment:Calculation based on the Chronic Kidney Disease Epidemiology Collaboration (CKD-EPI) equation refit without adjustment for race. BUN/Creatinine Ratio 19.0 LAB CHEMISTRY METHOD 03/05/2025 4:39 PM [facility] Calcium 9.2 8.5 - 10.5 mg/dL LAB CHEMISTRY METHOD 03/05/2025 4:39 PM [facility] AST (SGOT) 13 10 - 42 unit/L LAB CHEMISTRY METHOD 03/05/2025 4:39 PM [facility] ALT (SGPT) 21 10 - 60 unit/L LAB CHEMISTRY METHOD 03/05/2025 4:39 PM [facility] Alkaline Phosphatase 97 42 - 121 unit/L LAB CHEMISTRY METHOD 03/05/2025 4:39 PM [facility] Total Protein 7.2 6.0 - 8.0 g/dL LAB CHEMISTRY METHOD 03/05/2025 4:39 PM EDT [facility] Albumin 3.6 3.2 - 5.0 g/dL LAB CHEMISTRY METHOD 03/05/2025 4:39 PM EDT [facility] Total Bilirubin 0.3 0.0 - 1.4 mg/dL LAB CHEMISTRY METHOD 03/05/2025 4:39 PM EDT [facility] Blood Venous blood specimen / Unknown 03/05/2025 2:50 PM EDT 03/05/2025 3:52 PM EDT us Dayana Frost MD LAB BLOOD ORDERABLES Fi nal Result [facility] [address] [place] [address], documented in this encounter Visit Diagnoses Diagnosis [...] documented as of this encounter Care Teams Client Engagement Manager Relationship Specialty Start Date End Date Cassius Alvarez MD [address] [place] [address] PCP - General Internal Medicine 06/07/24 documented as of this encounter
--- OUTSIDE RECORDS SUMMARY | 2025-06-13 17:09 | XMS_ITS | Encounter Summary ---
Author Organization [facility] [place] [address] Care Team Providers Care [employer] Operations Manager Name Role Phone Cassius Alvarez MD Primary Care Provider [phone] Encounter Details Date Type Department Care Team (Late st Contact Info) Description 05/09/2025 Lab Requisition [facility] - Main Lab [address] [facility] [place] [address] Dayana Frost MD [address] [place] [phone] Disease of digestive system, unspecified; Other diseases of stomach and duodenum Social History Tobacco Use Types Packs/Day Years [...] do you feel lonely or isolated from ose around you? Rarely 05/04/2025 Food Risk [...] care for your loved ones. For example, assistant child care teacher or elderly care for an older adult? [...] of Assessment Author No 03/17/2025 5:44 AM Arleht Peres RN * Are you blind or [...] Description 06/14/2025 7:45 AM EST Hospital Encounter [facility] Endoscopy [address] [place] [address] Angelika Verde MD 299 [facility] [address] [place] [address] Nj Hernandez CRNA [address] [address] Jordin Salvador MD 114 [place] [address] 07/17/2025 8:00 AM EST Appointment [facility] Nuclear Medicine [address] [place] [address] 07/18/2025 9:00 AM EST Office Visit Bariatric Surgery - [place] 175 [facility] 120 [place] [address] Dayana Frost MD [address] [place] [phone] documented as of this encounter Goals Goal Patient Goal Type Associated Problems Recent Progress Patient-Stated? Author Autogenerat ed Goal Care Plan Autogenerated Problem No Bouchra Collado RN documented as of this encounter Procedures Procedure Name Priority Date/Time Associated Diagnosis Comments SST - GOLD Routine 05/09/2025 10:00 AM EDT Disease of digestive system, unspecified Other diseases of stomach and duodenum CBC WITH AUTO DIFFERENTIAL Routine 05/09/2025 10:00 AM EDT Disease of digestive system, unspecified Other diseases of stomach and duodenum CBC AND DIFFERENTIAL Routine 05/09/2025 10:00 AM EDT Disease of digestive system, unspecified Other diseases of stomach and duodenum TRIGLYCERIDES Routine 05/09/2025 10:00 AM EDT Disease of digestive system, unspecified Other diseases of stomach and duodenum PHOSPHORUS Routine 05/09/2025 10:00 AM EDT Disease of digestive system, unspecified Other diseases of stomach and duodenum MAGNESIUM Routine 05/09/2025 10:00 AM EDT Disease of digestive system, unspecified Other diseases of stomach and duodenum COMPREHENSIVE METABOLIC PANEL Routine 05/09/2025 10:00 AM EDT Disease of digestive system, unspecified Other diseases of stomach and duodenum documented in this encounter Results * SST tube (05/09/2025 10:00 AM EDT) Extra Tube Hold for add-ons. 05/09/2025 7:01 PM EDT [facility] ([facility] Comment:Auto resulted. Blood Venous blood specimen / Unknown 05/09/2025 10:00 AM EDT 05/09/2025 5:20 PM EDT us Dayana Frost MD LAB BLOOD ORDERABLES Fi nal Result [facility] [address] [place] [address], * (ABNORMAL) CBC auto differential (05/09/2025 10:00 AM EDT) WBC 8.5 4.8 - 10.8 K/mcL LAB HEMETOLOGY METHOD 05/09/2025 6:11 PM EDT [facility] RBC 3.50(L) 3.80 - 4.80 M/mcL LAB HEMETOLOGY METHOD 05/09/2025 6:11 PM EDT [facility] Hemoglobin 10.7(L) 11.5 - 16.0 g/dL LAB HEMETOLOGY METHOD 05/09/2025 6:11 PM EDT [facility] Hematocrit 34.1(L) 35.0 - 47.0 % LAB HEMETOLOGY METHOD 05/09/2025 6:11 PM EDT [facility] MCV 98.3(H) 79.0 - 98.0 FL LAB HEMETOLOGY METHOD 05/09/2025 6:11 PM EDT [facility] MCH 30.8 27.0 - 32.0 pcg LAB HEMETOLOGY METHOD 05/09/2025 6:11 PM EDT [facility] MCHC 31.4(L) 32.0 - 37.0 g/dL LAB HEMETOLOGY METHOD 05/09/2025 6:11 PM EDT [facility] RDW 16.4(H) 11.0 - 15.0 % LAB HEMETOLOGY METHOD 05/09/2025 6:11 PM EDT [facility] Platelets 313 130 - 400 K/mcL LAB HEMETOLOGY METHOD 05/09/2025 6:11 PM EDT [facility] MPV 9.9 7.0 - 11.0 FL LAB HEMETOLOGY METHOD 05/09/2025 6:11 PM EDT [facility] NRBC 0.0 <1.0 % LAB HEMETOLOGY METHOD 05/09/2025 6:[facility] NRBC Absolute 0.00 <0.10 K/mcL LAB HEMETOLOGY METHOD 05/09/2025 6:11 PM EDT [facility] Neutrophils Relative 59.8 % LAB HEMETOLOGY METHOD 05/09/2025 6:11 PM EDT [facility] Lymphocytes Relative 31.5 % LAB HEMETOLOGY METHOD 05/09/2025 6:11 PM [facility] Monocytes Relative 4.3 % LAB HEMETOLOGY METHOD 05/09/2025 6:[facility] Eosinophils Relative 3.1 % LAB HEMETOLOGY METHOD 05/09/2025 6:11 PM [facility] Basophils Relative 0.9 % LAB HEMETOLOGY METHOD 05/09/2025 6:11 PM [facility] Immature Granulocytes Relative 0.4 % LAB HEMETOLOGY METHOD 05/09/2025 6:11 PM [facility] Neutrophils Absolute 5.07 1.50 - 7.00 K/mcL LAB HEMETOLOGY METHOD 05/09/2025 6:11 PM EDT [facility] Lymphocytes Absolute 2.67 1.00 - 5.00 K/mcL LAB HEMETOLOGY METHOD 05/09/2025 6:11 [facility] Monocytes Absolute 0.36 0.20 - 1.00 K/mcL LAB HEMETOLOGY METHOD 05/09/2025 6:11 [facility] Eosinophils Absolute 0.26 0.00 - 0.50 K/mcL LAB HEMETOLOGY METHOD 05/09/2025 6:11 PM EDT [facility] Basophils Absolute 0.08 0.00 - 0.20 K/[facility] LAB HEMETOLOGY METHOD 05/09/2025 6:11 PM EDT [facility] Immature Granulocytes Absolute 0.03 0.00 - 0.03 K/[facility] LAB HEMETOLOGY METHOD 05/09/2025 6:11 PM EDT [facility] Blood Venous blood specimen / Unknown 05/09/2025 10:00 AM EDT 05/09/2025 5:20 PM EDT us Dayana Frost MD LAB BLOOD ORDERABLES Fi nal Result Performing Organization Address City/[facility]/ZIP Co de Phone Number [facility] [address] [place] [address], [place] [phone] * Triglycerides (05/09/2025 10:00 AM EDT) Triglycerides 143 0 - 150 mg/dL LAB CHEMISTRY METHOD 05/09/2025 9:13 PM EDT [facility] Blood Venous blood specimen / Unknown 05/09/2025 10:00 AM EDT 05/09/2025 5:20 PM EDT us Dayana Frost MD LAB BLOOD ORDERABLES Fi nal Result [facility] [address] [place] [address], [place] [phone] * Phosphorus (05/09/2025 10:00 AM EDT) Phosphorus 3.4 2.5 - 4.5 mg/dL LAB CHEMISTRY METHOD 05/09/2025 9:13 PM EDT [facility] Blood Venous blood specimen / Unknown 05/09/2025 10:00 AM EDT 05/09/2025 5:20 PM EDT us Dayana Frost MD LAB BLOOD ORDERABLES Fi nal Result [facility] [address] [place] [address], [place] [phone] * Magnesium (05/09/2025 10:00 AM EDT) [facility] Magnesium 2.2 1.9 - 2.6 mg/dL LAB CHEMISTRY METHOD 05/09/2025 9:13 PM EDT [facility] Blood Venous blood specimen / Unknown 05/09/2025 10:00 AM EDT 05/09/2025 5:20 PM EDT us Dayana Frost MD LAB BLOOD ORDERABLES Fi nal Result Performing Organization Address City/[facility]/ZIP Co de Phone Number [facility] [address] [place] [address], [place] [phone] * (ABNORMAL) Comprehensive metabolic panel (05/09/2025 10:00 AM EDT) [facility] Sodium 138 133 - 145 mmol/L LAB CHEMISTRY METHOD 05/09/2025 9:24 PM EDT [facility] Potassium 4.0 3.5 - 5.5 mmol/L LAB CHEMISTRY METHOD 05/09/2025 9:24 PM EDT [facility] Chloride 105 96 - 110 mmol/L LAB CHEMISTRY METHOD 05/09/2025 9:24 PM EDT [facility] CO2 22 21 - 32 mmol/L LAB CHEMISTRY METHOD 05/09/2025 9:24 PM EDT [facility] Anion Gap 11 3 - 11 LAB CHEMISTRY METHOD 05/09/2025 9:24 PM EDT [facility] Glucose 46(L) 70 - 100 mg/dL LAB CHEMISTRY METHOD 05/09/2025 9:24 PM [facility] BUN 17 5 - 25 mg/dL LAB CHEMISTRY METHOD 05/09/2025 9:24 PM [facility] Creatinine 0.66 0.50 - 1.10 mg/dL LAB CHEMISTRY METHOD 05/09/2025 9:24 PM [facility] eGFR 120 >=60 mL/min/1. 73m2 LAB CHEMISTRY METHOD 05/09/2025 9:24 PM [facility] Comment:Calculation based on the Chronic Kidney Disease Epidemiology Collaboration (CKD-EPI) equation refit without adjustment for race. BUN/Creatinine Ratio 25.8 LAB CHEMISTRY METHOD 05/09/2025 9:24 PM [facility] Calcium 8.2(L) 8.5 - 10.5 mg/dL LAB CHEMISTRY METHOD 05/09/2025 9:24 PM [facility] AST (SGOT) 13 10 - 42 unit/L LAB CHEMISTRY METHOD 05/09/2025 9:24 PM [facility] ALT (SGPT) 28 10 - 60 unit/L LAB CHEMISTRY METHOD 05/09/2025 9:24 PM [facility] Alkaline Phosphatase 128(H) 42 - 121 unit/L LAB CHEMISTRY METHOD 05/09/2025 9:24 PM [facility] Total Protein 7.2 6.0 - 8.0 g/dL LAB CHEMISTRY METHOD 05/09/2025 9:24 PM [facility] Albumin 3.3 3.2 - 5.0 g/dL LAB CHEMISTRY METHOD 05/09/2025 9:24 PM [facility] Total Bilirubin 0.3 0.0 - 1.4 mg/dL LAB CHEMISTRY METHOD 05/09/2025 9:24 PM [facility] Blood Venous blood specimen / Unknown 05/09/2025 10:00 AM EDT 05/09/2025 5:20 PM EDT us Dayana Frost MD LAB BLOOD ORDERABLES Fi nal Result [facility] [address] [place] [address], documented in this encounter Visit Diagnoses Diagnosis Disease of digestive system, unspecified Other diseases of stomach and duodenum documented in this encounter Additional Health Concerns Active Problems Noted Date Diagnosed Date Autogenerated Problem 04/11/2025 Infection Onset Date Last Indicated Resolved Time Respiratory Rule-Out 05/30/2025 05/30/2025 025 12:23 PM EST COVID-19 Rule-Out 05/30/2025 05/30/2025 05/30/2025 12:23 PM EST documented as of this encounter Care Teams [employer] Operations Manager Relationship Specialty Start Date End Date Cassius Alvarez MD [address] [place] [address] PCP - General Internal Medicine 06/07/24 documented as of this encounter
--- OUTSIDE RECORDS SUMMARY | 2025-06-13 17:09 | XMS_ITS | Encounter Summary ---
Author Organization [facility] [place] [address] Care Team Providers Care Automobile Engine Assembler Name Role Phone Cassius Alvarez MD Primary Care Provider [phone] Encounter Details Date Type Department Care Team (Late st Contact Info) Description 03/12/2025 Lab Requisition [facility] - Main Lab [address] [place] [address] Dayana Frost MD [address] [place] [phone] Social History Tobacco Use Types Packs/Day Years [...] Assessment Author No 06/17/2024 1:59 AM Jessica Cerarto RN * Because of a physical, mental, or emotional condition, do you have serious difficulty doing errandsalone such as visiting the doctor? Answer Date of Assessment Author No 06/17/2024 1:59 AM Jessica Cerrato RN * Calculated C-SSRS Risk Score (Lifetime/Recent) Answer Date of Assessment Author No Risk Indicated 03/15/2025 6:30 AM Sofi Poole RN * [place] Suicide Severity Rating Scale (Screener/Recent Self-Report) Question Answer Date of Assessment Author 1. Wish to be (Past 1 Month) No 025 6:30 AM Sofi Poole RN 2. Non-Specific Active Suici angie Thoughts (Past 1 Month) No 03/15/2025 6:30 AM Sofi Poole RN 6. Suicidal Behavior (Lifetime) No 6:30 AM Sofi Poole RN documented as of [...] Description 06/14/2025 7:45 AM EST Hospital Encounter [facility] Endoscopy [address] [place] [phone] Angelika Verde MD 299 [facility] [address] [place], [place] [address] Nj Hernandez CRNA 114 [facility] 3 [place] [address] Jordin Salvador MD 114 [place] [address] 07/17/2025 8:00 AM EST Appointment [facility] Nuclear Medicine [address] [place] [phone] 07/18/2025 9:00 AM EST Office Visit Bariatric Surgery - [place] 175 [facility] 120 [place] [phone] Dayana Frost MD 230 [place] [phone] documented as of this encounter Procedures Procedure [...] CBC auto differential (03/12/2025 2:00 PM EDT) [facility] WBC 10.2 4.8 - 10.8 K/[facility] LAB HEMETOLOGY METHOD 03/12/2025 2:54 PM EDT [facility] RBC 3.70(L) 3.80 - 4.80 M/mcL LAB HEMETOLOGY METHOD 03/12/2025 2:54 PM EDT [facility] Hemoglobin 11.8 11.5 - 16.0 g/dL LAB HEMETOLOGY METHOD 03/12/2025 2:54 PM EDT [facility] Hematocrit 36.0 35.0 - 47.0 % LAB HEMETOLOGY METHOD 03/12/2025 2:54 PM EDT [facility] MCV 97.0 79.0 - 98.0 FL LAB [facility] MCH 31.8 27.0 - 32.0 pcg LAB HEMETOLOGY METHOD 03/12/2025 2:54 PM EDT [facility] MCHC 32.8 32.0 - 37.0 g/dL LAB HEMETOLOGY METHOD 03/12/2025 2:54 PM EDT [facility] RDW 13.1 11.0 - 15.0 % LAB HEMETOLOGY METHOD 03/12/2025 2:54 PM EDT [facility] Platelets 241 130 - 400 K/mcL LAB HEMETOLOGY METHOD 03/12/2025 2:54 PM EDT [facility] MPV 10.8 7.0 - 11.0 FL LAB HEMETOLOGY METHOD 03/12/2025 2:54 PM EDT [facility] NRBC 0.0 <1.0 % LAB HEMETOLOGY METHOD 03/12/2025 2:54 PM EDT [facility] NRBC Absolute 0.00 <0.10 K/mcL LAB HEMETOLOGY METHOD 03/12/2025 2:54 PM EDT [facility] Neutrophils Relative 63.3 % LAB HEMETOLOGY METHOD 03/12/2025 2:54 PM EDT [facility] Lymphocytes Relative 24.8 % LAB HEMETOLOGY METHOD 03/12/2025 2:54 PM EDT [facility] Monocytes Relative 4.3 % LAB [facility] Eosinophils Relative 6.3 % LAB HEMETOLOGY METHOD 03/12/2025 2:54 PM EDT [facility] Basophils Relative 0.9 % LAB HEMETOLOGY METHOD 03/12/2025 2:54 PM [facility] Immature Granulocytes Relative 0.4 % LAB HEMETOLOGY METHOD [facility]/12[facility]2025 2:[facility] PM [facility] Neutrophils Absolute 6.48 1.50 - 7.00 K/mcL LAB HEMETOLOGY METHOD 03/12/2025 2:54 PM EDT [facility] Lymphocytes Absolute 2.54 1.00 - 5.00 K/mcL LAB HEMETOLOGY METHOD 03/12/2025 2:54 PM EDT [facility] Monocytes Absolute 0.44 0.20 - 1.00 K/mcL LAB HEMETOLOGY METHOD 03/12/2025 2:54 PM EDT [facility] Eosinophils Absolute 0.64(H) 0.00 - 0.50 K/mcL LAB HEMETOLOGY METHOD 03/12/2025 2:54 PM EDT [facility] Basophils Absolute 0.09 0.00 - 0.20 K/mcL LAB HEMETOLOGY METHOD 03/12/2025 2:54 PM [facility] Immature Granulocytes Absolute 0.04(H) 0.00 - 0.03 K/mcL LAB HEMETOLOGY METHOD 03/12/2025 2:54 PM [facility] Blood Venous blood specimen / Unknown 03/12/2025 2:00 PM EDT 03/12/2025 2:50 PM EDT us Dayana Frost MD LAB BLOOD ORDERABLES Fi nal Result Performing Organization Address City/[facility]/ZIP Co de Phone Number [facility] [address] [place] [address], [place] [phone] * (ABNORMAL) Triglycerides (03/12/2025 2:00 PM EDT) Triglycerides 175(H) 0 - 150 mg/dL LAB CHEMISTRY METHOD 03/12/2025 3:12 PM EDT [facility] Blood Venous blood specimen / Unknown 03/12/2025 2:00 PM EDT 03/12/2025 2:50 PM EDT us Dayana Frost MD LAB BLOOD ORDERABLES Fi nal Result Performing Organization Address [facility] Co de Phone Number [facility] [address] [place] [address], [place] [phone] * Phosphorus (03/12/2025 2:00 PM EDT) Phosphorus 3.5 2.5 - 4.5 mg/dL LAB CHEMISTRY METHOD 03/12/2025 3:12 PM EDT [facility] Blood Venous blood specimen / Unknown 03/12/2025 2:00 PM EDT 03/12/2025 2:50 PM EDT us Dayana Frost MD LAB BLOOD ORDERABLES Fi nal Result Performing Organization Address [facility]/ZIP Co de Phone Number [facility] [address] [place] [address], [place] [phone] * Magnesium (03/12/2025 2:00 PM EDT) Magnesium 2.0 1.9 - 2.6 mg/dL LAB CHEMISTRY METHOD 03/12/2025 3:12 PM [facility] Blood Venous blood specimen / Unknown 03/12/2025 2:00 PM EDT 03/12/2025 2:50 PM EDT Dayana Frost MD LAB BLOOD ORDERABLES Fi nal Result [facility] [address] [place] [address], [place] [phone] * (ABNORMAL) Comprehensive metabolic panel (03/12/2025 2:00 PM EDT) Sodium 140 133 - 145 mmol/L LAB CHEMISTRY METHOD 03/12/2025 3:12 PM [facility] Potassium 3.8 3.5 - 5.5 mmol/L LAB CHEMISTRY METHOD 03/12/2025 3:12 PM [facility] Chloride 109 96 - 110 mmol/L LAB CHEMISTRY METHOD 03/12/2025 3:12 PM [facility] CO2 25 21 - 32 mmol/L LAB CHEMISTRY METHOD 03/12/2025 3:12 PM [facility] Anion Gap 6 3 - 11 LAB CHEMISTRY METHOD 03/12/2025 3:12 PM [facility] Glucose 99 70 - 100 mg/dL LAB CHEMISTRY METHOD 03/12/2025 3:12 PM [facility] BUN 9 5 - 25 mg/dL LAB CHEMISTRY METHOD 03/12/2025 3:12 PM [facility] Creatinine 0.62 0.50 - 1.10 mg/dL LAB CHEMISTRY METHOD 03/12/2025 3:12 PM [facility] eGFR 122 >=60 mL/min/1. 73m2 LAB CHEMISTRY METHOD 03/12/2025 3:12 PM [facility] Comment:Calculation based on the Chronic Kidney Disease Epidemiology Collaboration (CKD-EPI) equation refit without adjustment for race. BUN/Creatinine Ratio 14.5 LAB CHEMISTRY METHOD 03/12/2025 3:12 PM EDT [facility] Calcium 8.8 8.5 - 10.5 mg/dL LAB CHEMISTRY METHOD 03/12/2025 3:12 PM EDT [facility] AST (SGOT) 17 10 - 42 unit/L LAB CHEMISTRY METHOD 03/12/2025 3:12 PM EDT [facility] ALT (SGPT) 33 10 - 60 unit/L LAB CHEMISTRY METHOD 03/12/2025 3:12 PM EDT [facility] Alkaline Phosphatase 112 42 - 121 unit/L LAB CHEMISTRY METHOD 03/12/2025 3:12 PM EDT [facility] Total Protein 6.5 6.0 - 8.0 g/dL LAB CHEMISTRY METHOD 03/12/2025 3:12 PM EDT [facility] Albumin 3.1(L) 3.2 - 5.0 g/dL LAB CHEMISTRY METHOD 03/12/2025 3:12 PM EDT [facility] Total Bilirubin 0.3 0.0 - 1.4 mg/dL LAB CHEMISTRY METHOD 03/12/2025 3:12 PM EDT [facility] Blood Venous blood specimen / Unknown 03/12/2025 2:00 PM EDT 03/12/2025 2:50 PM EDT us Dayana Frost MD LAB BLOOD ORDERABLES Fi nal Result [facility] [address] [place] [address], documented in this encounter Visit Diagnoses Not [...] documented as of this encounter Care Teams Automobile Engine Assembler Relationship Specialty Start Date End Date Cassius Alvarez MD [address] [address] PCP - General Internal Medicine 06/07/24 documented as of this encounter
--- OUTSIDE RECORDS SUMMARY | 2025-06-13 17:09 | XMS_ITS | Encounter Summary ---
Author Organization [facility] [place] [address] Care Team Providers Care Computer Support Specialist Name Role Phone Cassius Alvarez MD Primary Care Provider [phone] Encounter Details Date Type Department Care Team (Late st Contact Info) Description 05/03/2025 Lab Requisition [facility] - Main Lab [address] [place] [address] Dayana Frost MD [address] [place] [phone] Disease of digestive system, unspecified; Other diseases [...] care for your loved ones. For example, child development teacher or elderly care for an older [...] Date of Assessment Author No Risk Indicated 05/04/2025 12:20 PM EDT Pepper Zazueta RN * [place] Suicide Severity Rating Scale (Screener/Recent Self-Report) Question Answer Date of Assessment Author 1. Wish to be (Past 1 Month) No 05/04/2025 12:20 PM EDT Pepper Pace RN 2. Non-Specific Active Suicidal Thoughts (Past 1 Month) No 05/04/2025 12:20 PM EDT Pepper Pace RN 6. Suicidal Behavior (Lifetime) No 05/04/2025 12:20 PM EDT Pepper Pace RN documented as of this encounter Mental [...] Description 06/14/2025 7:45 AM EST Hospital Encounter [facility] Endoscopy [address] [place] [address] Angelika Verde MD [address] [place] [address] Nj Hernandez CRNA [address] [facility] 3 [place] [address] Jordin Salvador MD 114 [place] [address] 07/17/2025 8:00 AM EST Appointment [facility] Nuclear Medicine [address] [place] [phone] 07/18/2025 9:00 AM EST Office Visit Bariatric Surgery - [place] 175 [facility] 120 [place] [phone] Dayana Frost MD [address] [place] [address] documented as of this encounter Goals Goal Patient Goal Type Associated Problems Recent Progress Patient-Stated? Author Autogenerat ed Goal Care Plan Autogenerated Problem No Bouchra Collado RN documented as of this encounter Procedures Procedure Name Priority Date/Time Associated Diagnosis Comments SST - GOLD Routine 05/03/2025 12:00 AM EDT Disease of digestive system, unspecified Other diseases of stomach and duodenum CBC WITH AUTO DIFFERENTIAL Routine 05/03/2025 12:00 AM EDT Disease of digestive system, unspecified Other diseases of stomach and duodenum CBC AND DIFFERENTIAL Routine 05/03/2025 12:00 AM EDT Disease of digestive system, unspecified Other diseases of stomach and duodenum TRIGLYCERIDES Routine 05/03/2025 12:00 AM EDT Disease of digestive system, unspecified Other diseases of stomach and duodenum PHOSPHORUS Routine 05/03/2025 12:00 AM EDT Disease of digestive system, unspecified Other diseases of stomach and duodenum MAGNESIUM Routine 05/03/2025 12:00 AM EDT Disease of digestive system, unspecified Other diseases of stomach and duodenum COMPREHENSIVE METABOLIC PANEL Routine 05/03/2025 12:00 AM EDT Disease of digestive system, unspecified Other diseases of stomach and duodenum documented in this encounter Results * SST tube (05/03/2025 12:00 AM EDT) Pathologist [facility] Extra Tube Hold for add-ons. 05/03/2025 1:01 PM EDT [facility] Comment:Auto resulted. Blood Venous blood specimen / Unknown 05/03/2025 05/03/2025 11:14 AM EDT Dayana Frost MD LAB BLOOD ORDERABLES Fi nal Result [facility] [address] [place] [address], * (ABNORMAL) CBC auto differential (05/03/2025 12:00 AM EDT) [facility] WBC 8.2 4.8 - 10.8 K/mcL LAB HEMETOLOGY METHOD 05/03/2025 11:24 AM T [facility] RBC 3.50(L) 3.80 - 4.80 M/mcL LAB HEMETOLOGY METHOD 05/03/2025 11:24 AM EDT [facility] Hemoglobin 10.7(L) 11.5 - 16.0 g/dL LAB HEMETOLOGY METHOD 05/03/2025 11:24 AM EDT [facility] Hematocrit 35.9 35.0 - 47.0 % LAB HEMETOLOGY METHOD 05/03/2025 11:24 AM EDT [facility] MCV 104.1(H) 79.0 - 98.0 FL LAB HEMETOLOGY METHOD 05/03[facility]25 [facility] MCH 31.0 27.0 - 32.0 pcg LAB HEMETOLOGY METHOD 05/03/2025 11:24 AM [facility] MCHC 29.8(L) 32.0 - 37.0 g/dL LAB HEMETOLOGY METHOD 05/03/2025 11:24 AM [facility] RDW 17.4(H) 11.0 - 15.0 % LAB HEMETOLOGY METHOD 05/03/2025 11:24 AM [facility] Platelets 283 130 - 400 K/mcL LAB HEMETOLOGY METHOD 05/03/2025 11:24 AM [facility] MPV 10.5 7.0 - 11.0 FL LAB HEMETOLOGY METHOD 05/03/2025 11:24 AM [facility] NRBC 0.0 <1.0 % LAB HEMETOLOGY METHOD 05/03/2025 11:24 AM [facility] NRBC Absolute 0.00 <0.10 K/mcL LAB HEMETOLOGY METHOD 05/03/2025 11:24 AM [facility] Neutrophils Relative 61.0 % LAB HEMETOLOGY METHOD 05/03/2025 11:24 AM [facility] Lymphocytes Relative 30.8 % LAB HEMETOLOGY METHOD 05/03/2025 11:24 AM [facility] Monocytes Relative 4.5 % LAB HEMETOLOGY METHOD 05/03/2025 11:24 AM [facility] Eosinophils Relative 2.6 % LAB HEMETOLOGY METHOD 05/03/2025 11:24 AM [facility] Basophils Relative 0.9 % LAB HEMETOLOGY METHOD 05/03/2025 11:24 AM [facility] Immature Granulocytes Relative 0.2 % LAB HEMETOLOGY METHOD 05/03/2025 11:24 AM EDT [facility] Neutrophils Absolute 5.01 1.50 - 7.00 K/mcL LAB HEMETOLOGY METHOD 05/03/2025 11:24 AM EDT [facility] Lymphocytes Absolute 2.53 1.00 - 5.00 K/mcL LAB HEMETOLOGY METHOD 05/03/2025 11:24 AM EDT [facility] Monocytes Absolute 0.37 0.20 - 1.00 K/mcL LAB HEMETOLOGY METHOD 05/03/2025 11:24 AM EDT [facility] Eosinophils Absolute 0.21 0.00 - 0.50 K/mcL LAB HEMETOLOGY METHOD 05/03/2025 11:24 AM EDT [facility] Basophils Absolute 0.07 0.00 - 0.20 K/mcL LAB HEMETOLOGY METHOD 05/03/2025 11:24 AM EDT [facility] Immature Granulocytes Absolute 0.02 0.00 - 0.03 K/mcL LAB HEMETOLOGY METHOD 05/03/2025 11:24 AM EDT [facility] Blood Venous blood specimen / Unknown 05/03/2025 05/03/2025 11:13 AM EDT us Dayana Frost MD LAB BLOOD ORDERABLES Fi nal Result [facility] [address] [place] [address], * Triglycerides (05/03/2025 12:00 AM EDT) Triglycerides 107 0 - 150 mg/dL LAB CHEMISTRY METHOD 05/03/2025 1:16 PM EDT [facility] Blood Venous blood specimen / Unknown 05/03/2025 05/03/2025 11:13 AM EDT us Dayana Frost MD LAB BLOOD ORDERABLES Fi nal Result Performing Organization Address [facility] de Phone Number [facility] [address] [place] [address], [place] [phone] * (ABNORMAL) Phosphorus (05/03/2025 12:00 AM EDT) Phosphorus 4.6(H) 2.5 - 4.5 mg/dL LAB CHEMISTRY METHOD 05/03/2025 1:16 PM EDT [facility] Blood Venous blood specimen / Unknown 05/03/2025 05/03/2025 11:13 AM EDT us Dayana Frost MD LAB BLOOD ORDERABLES Fi nal Result Performing Organization Address [facility] de Phone Number [facility] [address] [place] [address], [place] [phone] * Magnesium (05/03/2025 12:00 AM EDT) Magnesium 2.4 1.9 - 2.6 mg/dL LAB CHEMISTRY METHOD 05/03/2025 1:16 PM EDT [facility] Blood Venous blood specimen / Unknown 05/03/2025 05/03/2025 11:13 AM EDT us Dayana Frost MD LAB BLOOD ORDERABLES Fi nal Result Performing Organization Address [facility]/ZIP Co de Phone Number [facility] [address] [place] [address], [place] [phone] * (ABNORMAL) Comprehensive metabolic panel (05/03/2025 12:00 AM EDT) Sodium 139 133 - 145 mmol/L LAB CHEMISTRY METHOD 05/03/2025 3:17 PM EDT [facility] Potassium 4.1 3.5 - 5.5 mmol/L LAB CHEMISTRY METHOD 05/03/2025 3:17 PM [facility] Chloride 106 96 - 110 mmol/L LAB CHEMISTRY METHOD 05/03/2025 3:17 PM [facility] CO2 19(L) 21 - 32 mmol/L LAB CHEMISTRY METHOD 05/03/2025 3:17 PM [facility] Anion Gap 14(H) 3 - 11 LAB CHEMISTRY METHOD 05/03/2025 3:17 PM [facility] Glucose 31(LL) 70 - 100 mg/dL LAB CHEMISTRY METHOD 05/03/2025 3:17 PM [facility] BUN 17 5 - 25 mg/dL LAB CHEMISTRY METHOD 05/03/2025 3:17 PM [facility] Creatinine 0.84 0.50 - 1.10 mg/dL LAB CHEMISTRY METHOD 05/03/2025 3:17 PM [facility] eGFR 95 >=60 mL/min/1. 73m2 LAB CHEMISTRY METHOD 05/03/2025 3:17 PM [facility] Comment:Calculation based on the Chronic Kidney Disease Epidemiology Collaboration (CKD-EPI) equation refit without adjustment for race. BUN/Creatinine Ratio 20.2 LAB CHEMISTRY METHOD 05/03/2025 3:17 PM [facility] Calcium 8.8 8.5 - 10.5 mg/dL LAB CHEMISTRY METHOD 05/03/2025 3:17 PM [facility] AST (SGOT) 20 10 - 42 unit/L LAB CHEMISTRY METHOD 05/03/2025 3:17 PM [facility] ALT (SGPT) 42 10 - 60 unit/L LAB CHEMISTRY METHOD 05/03/2025 3:17 PM [facility] Alkaline Phosphatase 128(H) 42 - 121 unit/L LAB CHEMISTRY METHOD 05/03/2025 3:17 PM [facility] Total Protein 7.1 6.0 - 8.0 g/dL LAB CHEMISTRY METHOD 05/03/2025 3:17 PM EDT [facility] Albumin 3.1(L) 3.2 - 5.0 g/dL LAB CHEMISTRY METHOD 05/03/2025 3:17 PM EDT [facility] Total Bilirubin 0.4 0.0 - 1.4 mg/dL LAB CHEMISTRY METHOD 05/03/2025 3:17 PM EDT [facility] Blood Venous blood specimen / Unknown 05/03/2025 05/03/2025 11:13 AM EDT us Dayana Frost MD LAB BLOOD ORDERABLES Fi nal Result [facility] [address] [place] [address], documented in this encounter Visit Diagnoses Diagnosis Disease of digestive system, unspecified Other diseases of stomach and duodenum documented in this encounter Additional Health Concerns Active Problems Noted Date Diagnosed Date Autogenerated Problem 04/11/2025 Infection Onset Date Last Indicated Resolved Time Respiratory Rule-Out 05/04/2025 05/04/2025 025 10:38 PM EDT COVID-19 Rule-Out 05/04/2025 05/04/2025 05/04/2025 10:38 PM EDT Respiratory Rule-Out 05/30/2025 05/30/20252 025 12:23 PM EST COVID-19 Rule-Out 05/30/2025 05/30/2025 05/30/2025 12:23 PM EST documented as of this encounter Care Teams Computer Support Specialist Relationship Specialty Start Date End Date Cassius Alvarez MD [address] [place] [address] PCP - General Internal Medicine 06/07/24 documented as of this encounter
--- OUTSIDE RECORDS SUMMARY | 2025-06-13 17:09 | XMS_ITS | Encounter Summary ---
Author Organization [facility] [place] [address] Care Team Providers Care Java Programmer Analyst Name Role Phone Cassius Alvarez MD Primary Care Provider [phone] Reason for Visit * Reason Onset Date Comments Advice Only 05/28/2025 Option care orde r Encounter Details Date Type Department Care Team ([facility] st Contact Info) Description 05/28/2025 Telephone Bariatric Surgery - [address] [place] [address] Dayana Frost MD [address] [place] [phone] Social History Tobacco Use Types Packs/Day [...] Record ed Within the last 3 months, gilbert agarwal many times did you visit the emergency [...] for your loved ones. For example, child daycare worker or elderly care for an older adult? [...] Assessment Author No 03/17/2025 5:44 AM Arleth Lee, GRISELDA * Are you blind or do you have serious difficulty seeing, even when wearing glasses? Answer Date of Assessment Author No 03/17/2025 5:44 AM Arleth Peres, GRISELDA * Do you have serious difficulty walking [...] Date of Assessment Author No Risk Indicated 05/30/2025 8:17 AM Maki Garcia RN * [place] Suicide Severity Rating Scale (Screener/Recent Self-Report) Question Answer Date of Assessment Author 1. Wish to be (Past 1 Month) No 025 8:17 AM Maki Garcia RN 2. Non-Specific Active Suici angie Thoughts (Past 1 Month) No 05/30/2025 8:17 AM Fabricio Garcia RN 6. Suicidal Behavior (Lifetime) No 8:17 AM Maki Garcia RN documented as of this encounter Mental Status * Because of a physical, mental, or emotional condition, do you have serious difficulty concentrating, remembering, or making decisions? (5 years old or older) Answer Entry Date Author No 03/17/2025 5:44 AM Arleth Peres RN documented in this encounter Progress Notes * Lillie Schmitz - 05/28/2025 3:53 PM EST Santhosh from [facility] is calling for an order to decrease labs to every other week. She is asking for a verbal and needs it by tomorrow. Please call Santhosh at [phone] documented in this encounter Plan of Treatment Upcoming Encounters Date Type Department Care Team (Late st Contact Info) Description 06/14/2025 7:45 AM EST Hospital Encounter [facility] Endoscopy [address] [place] [phone] Angelika Verde MD 299 [facility] [address] [place] [address] Nj eHrnandez CRNA [address] [address] Jordin Salvador MD 114 [place] [address] 07/17/2025 8:00 AM EST Appointment [facility] Nuclear Medicine [address] [place] [phone] 07/18/2025 9:00 AM EST Office Visit Bariatric Surgery - [place] 175 [facility] 120 [place] [phone] Dayana Frost MD [address] [place] [phone] documented as of this encounter Goals Goal Patient Goal Type Associated Problems Recent Progress Patient-Stated? Author Autogenerat ed Goal Care Plan Autogenerated Problem No Bouchra Collado RN Autogenerat ed Goal Care Plan Autogenerated Problem No Rosalva Bruce documented as of this encounter Visit Diagnoses Not on filedocumented in this encounter Additional Health Concerns Active Problems Noted Date Diagnosed Date Autogenerated Problem 04/11/2025 Autogenerated Problem 05/16/2025 Infection Onset Date Last Indicated Resolved Time Respiratory Rule-Out 05/30/2025 05/30/2025 025 12:23 PM EST COVID-19 Rule-Out 05/30/2025 05/30/2025 05/30/2025 12:23 PM EST documented as of this encounter Care Teams Java Programmer Analyst Relationship Specialty Start Date End Date Cassius Alvarez MD [address] [place] [address] PCP - General Internal Medicine 06/07/24 documented as of this encounter
--- OUTSIDE RECORDS SUMMARY | 2025-06-13 17:09 | XMS_ITS | Encounter Summary ---
Author Organization [facility] [place] [address] Care Team Providers Care Automatic Furnace Operator Name Role Phone Cassius Alvarez MD Primary Care Provider [phone] Encounter Details Date Type Department Care Team (Late st Contact Info) Description 04/24/2025 Lab Requisition [facility] - Main Lab [address] [facility] [address] [place] [address] Dayana Frost MD [address] [place] [phone] Disease of digestive system, unspecified; Other diseases [...] you may not have stable housing? No 04/24/2025 Food Access & Nutrition Answer Date Rec orded Do you have access to a vari ety of food including fruits and vegetables? Yes 04/24/2025 Access to Healthcare Answer Date Record ed Within the last 3 months, ho w many times did you visit the emergency department for your medical care? 10 04/24/2025 Health Literacy Answer Date Recorded How often do you need to hav e someone help you when you read instructions, pamphlets, or other written material from your doctor or pharmacy? Never 04/24/2025 Caregiver: How often do you need to have someone help you when you read instructions, pamphlets, or other written material from your doctor or pharmacy? Not on file 04/24/2025 Financial Risk Answer Date Recorded How hard is it for you to pa y for the very basics like food, housing, medical care, and air conditioning / heating? Not very hard 04/24/2025 Transportation Answer Date Recorded Has the lack of transportati on kept you from meetings, work, or from getting things needed for daily living? Yes Has the lack of transportati on kept you from medical appointments or from getting medications? Yes 04/24/2025 Social Isolation Answer Date Recorded How often do you feel lonely or isolated from those around you? Sometimes 04/24/2025 Food Risk Answer Date Recorded Within the past 12 months we worried whether our food would run out before we got money to buy more. Never true 04/24/2025 Within the past 12 months th e food we bought just didn't last and we didn't have money to get more. Never true 04/24/2025 Dependent Care Answer Date Recorded Do you need help finding or paying for care for your loved ones. For example, childcare attendant or elderly care for an older adult? No 04/24/2025 Education Answer Date Recorded Do you think completing more education or training, like finishing a GED, going to college, or learning a trade, would be helpful for you? No 04/24/2025 Employment and Income Answer Date Recor ded During the last four weeks, have you been actively looking for work? No 04/24/2025 Living Situation Answer Date Recorded What is your living situation? Unrecognized valu e 04/24/2025 Interpersonal Safety Answer Date Record ed Physical Abuse Unrecognized value 04/24/2025 Verbal Abuse Unrecognized value 04/24/2025 Comments No Sex and Gender Information Value [...] Date of Assessment Author No Risk Indicated 04/24/2025 5:18 PM Meri Zavala RN * [place] Suicide Severity Rating Scale (Screener/Recent Self-Report) Question Answer Date of Assessment Author 1. Wish to be (Past 1 Month) No 025 5:18 PM Meri Zavala RN 2. Non-Specific Active Suici angie Thoughts (Past 1 Month) No 04/24/2025 5:18 PM Jody Zavala RN 6. Suicidal Behavior (Lifetime) No 5:18 PM Meri Zavala RN documented as of this encounter Mental [...] Description 06/14/2025 7:45 AM EST Hospital Encounter [facility] Endoscopy [address] [place] [address] Angelika Verde MD [address] [address] Nj Hernandez CRNA [address] [address] Jordin Salvador MD 114 [place] [address] 07/17/2025 8:00 AM EST Appointment [facility] Nuclear Medicine [address] [place] [phone] 07/18/2025 9:00 AM EST Office Visit Bariatric Surgery - [place] [address] [facility] [address] [place] [phone] Dayana Frost MD [address] [place] [address] documented as of this encounter Goals Goal Patient Goal Type Associated Problems Recent Progress Patient-Stated? Author Autogenerat ed Goal Care Plan Autogenerated Problem No Bouchra Collado RN documented as of this encounter Procedures Procedure Name Priority Date/Time Associated Diagnosis Comments SST - GOLD Routine 04/24/2025 3:00 PM EDT Disease of digestive system, unspecified Other diseases of stomach and duodenum CBC WITH AUTO DIFFERENTIAL Routine 04/24/2025 3:00 PM EDT Disease of digestive system, unspecified Other diseases of stomach and duodenum CBC AND DIFFERENTIAL Routine 04/24/2025 3:00 PM EDT Disease of digestive system, unspecified Other diseases of stomach and duodenum TRIGLYCERIDES Routine 04/24/2025 3:00 PM EDT Disease of digestive system, unspecified Other diseases of stomach and duodenum PHOSPHORUS Routine 04/24/2025 3:00 PM EDT Disease of digestive system, unspecified Other diseases of stomach and duodenum MAGNESIUM Routine 04/24/2025 3:00 PM EDT Disease of digestive system, unspecified Other diseases of stomach and duodenum COMPREHENSIVE METABOLIC PANEL Routine 04/24/2025 3:00 PM EDT Disease of digestive system, unspecified Other diseases of stomach and duodenum documented in this encounter Results * SST tube (04/24/2025 3:00 PM EDT) Pathologist [facility] Extra Tube Hold for add-ons. 04/24/2025 7:01 PM EDT [facility] Comment:Auto resulted. Blood Venous blood specimen / Unknown 04/24/2025 3:00 PM EDT 04/24/2025 5:44 PM EDT us Dayana Frost MD LAB BLOOD ORDERABLES Fi nal Result [facility] [address] [place] [address], * (ABNORMAL) CBC auto differential (04/24/2025 3:00 PM EDT) [facility] WBC 8.8 4.8 - 10.8 K/mcL LAB HEMETOLOGY METHOD 04/24/2025 5:55 PM EDT [facility] RBC 3.50(L) 3.80 - 4.80 M/mcL LAB HEMETOLOGY METHOD 04/24/2025 5:55 PM EDT [facility] Hemoglobin 10.8(L) 11.5 - 16.0 g/dL LAB HEMETOLOGY METHOD 04/24/2025 5:55 PM EDT [facility] Hematocrit 34.4(L) 35.0 - 47.0 % LAB HEMETOLOGY METHOD 04/24/2025 5:55 PM EDT [facility] MCV 97.5 79.0 - 98.0 FL LAB HEMETOLOGY METHOD 04/24/2025 5:55 PM EDT [facility] MCH 30.6 27.0 - 32.0 pcg LAB HEMETOLOGY METHOD 04/24/2025 5:55 PM EDT [facility] MCHC 31.4(L) 32.0 - 37.0 g/dL LAB HEMETOLOGY METHOD 04/24/2025 5:55 PM EDT [facility] RDW 16.0(H) 11.0 - 15.0 % LAB HEMETOLOGY METHOD 04/24/2025 5:55 PM EDT [facility] Platelets 333 130 - 400 K/mcL LAB HEMETOLOGY METHOD 04/24/2025 5:55 PM EDT [facility] MPV 10.1 7.0 - 11.0 FL LAB HEMETOLOGY METHOD 04/24/2025 5:55 PM EDT [facility] NRBC 0.0 <1.0 % LAB HEMETOLOGY METHOD 04/24/2025 5:55 PM EDT [facility] NRBC Absolute 0.00 <0.10 K/mcL LAB HEMETOLOGY METHOD 04/24/2025 5:55 PM EDT [facility] Neutrophils Relative 62.1 % LAB HEMETOLOGY METHOD [facility]25 [facility] Lymphocytes Relative 31.2 % LAB HEMETOLOGY METHOD 04/24/2025 5:55 PM EDT [facility] Monocytes Relative 2.7 % LAB HEMETOLOGY METHOD 04/24/2025 5:55 PM EDT [facility] Eosinophils Relative 3.0 % LAB HEMETOLOGY METHOD 04/24/2025 5:55 PM EDT [facility] Basophils Relative 0.7 % LAB HEMETOLOGY METHOD 04/24/2025 5:55 PM EDT [facility] Immature Granulocytes Relative 0.3 % LAB HEMETOLOGY METHOD 04/24/2025 5:55 PM EDT [facility] Neutrophils Absolute 5.44 1.50 - 7.00 K/mcL LAB HEMETOLOGY METHOD 04/24/2025 5:55 PM EDT [facility] Lymphocytes Absolute 2.73 1.00 - 5.00 K/mcL LAB HEMETOLOGY METHOD 04/24/2025 5:55 PM EDT [facility] Monocytes Absolute 0.24 0.20 - 1.00 K/mcL LAB HEMETOLOGY METHOD 04/24/2025 5:55 PM EDT [facility] Eosinophils Absolute 0.26 0.00 - 0.50 K/mcL LAB HEMETOLOGY METHOD 04/24/2025 5:55 PM EDT [facility] Basophils Absolute 0.06 0.00 - 0.20 K/mcL LAB HEMETOLOGY METHOD 04/24/2025 5:55 PM EDT [facility] Immature Granulocytes Absolute 0.03 0.00 - 0.03 K/mcL LAB HEMETOLOGY METHOD 04/24/2025 5:55 PM EDT [facility] Blood Venous blood specimen / Unknown 04/24/2025 3:00 PM EDT 04/24/2025 5:42 PM EDT us Dayana Frost MD LAB BLOOD ORDERABLES Fi nal Result [facility] [address] [place] [address], * Triglycerides (04/24/2025 3:00 PM EDT) Triglycerides 105 0 - 150 mg/dL LAB CHEMISTRY METHOD 04/24/2025 6:19 PM EDT [facility] Blood Venous blood specimen / Unknown 04/24/2025 3:00 PM EDT 04/24/2025 5:42 PM EDT us Dayana Frost MD LAB BLOOD ORDERABLES Fi nal Result Performing Organization Address [facility] Co de Phone Number [facility] [address] [place] [address], [place] [phone] * Phosphorus (04/24/2025 3:00 PM EDT) Phosphorus 3.2 2.5 - 4.5 mg/dL LAB CHEMISTRY METHOD 04/24/2025 6:19 PM EDT [facility] Blood Venous blood specimen / Unknown 04/24/2025 3:00 PM EDT 04/24/2025 5:42 PM EDT us Dayana Frost MD LAB BLOOD ORDERABLES Fi nal Result Performing Organization Address [facility] de Phone Number [facility] [address] [place] [address], [place] [phone] * Magnesium (04/24/2025 3:00 PM EDT) Pathologist [facility] Magnesium 2.1 1.9 - 2.6 mg/dL LAB CHEMISTRY METHOD 04/24/2025 6:19 PM EDT [facility] Blood Venous blood specimen / Unknown 04/24/2025 3:00 PM EDT 04/24/2025 5:42 PM EDT us Dayana Frost MD LAB BLOOD ORDERABLES Fi nal Result Performing Organization Address [facility]/ZIP Co de Phone Number [facility] [address] [place] [address], [place] [phone] * (ABNORMAL) Comprehensive metabolic panel (04/24/2025 3:00 PM EDT) Sodium 137 133 - 145 mmol/L LAB CHEMISTRY METHOD 04/24/2025 6:20 PM EDT [facility] Potassium 3.8 3.5 - 5.5 mmol/L LAB CHEMISTRY METHOD 04/24/2025 6:20 PM [facility] Chloride 106 96 - 110 mmol/L LAB CHEMISTRY METHOD 04/24/2025 6:20 PM [facility] CO2 23 21 - 32 mmol/L LAB CHEMISTRY METHOD 04/24/2025 6:20 PM [facility] Anion Gap 8 3 - 11 LAB CHEMISTRY METHOD 04/24/2025 6:20 PM [facility] Glucose 96 70 - 100 mg/dL LAB CHEMISTRY METHOD 04/24/2025 6:20 PM [facility] BUN 15 5 - 25 mg/dL LAB CHEMISTRY METHOD 04/24/2025 6:20 PM [facility] Creatinine 0.61 0.50 - 1.10 mg/dL LAB CHEMISTRY METHOD 04/24/2025 6:20 PM [facility] eGFR 122 >=60 mL/min/1. 73m2 LAB CHEMISTRY METHOD 04/24/2025 6:20 PM [facility] Comment:Calculation based on the Chronic Kidney Disease Epidemiology Collaboration (CKD-EPI) equation refit without adjustment for race. BUN/Creatinine Ratio 24.6 LAB CHEMISTRY METHOD 04/24/2025 6:20 PM [facility] Calcium 8.9 8.5 - 10.5 mg/dL LAB CHEMISTRY METHOD 04/24/2025 6:20 PM [facility] AST (SGOT) 12 10 - 42 unit/L LAB CHEMISTRY METHOD 04/24/2025 6:20 PM [facility] ALT (SGPT) 17 10 - 60 unit/L LAB CHEMISTRY METHOD 04/24/2025 6:20 PM [facility] Alkaline Phosphatase 130(H) 42 - 121 unit/L LAB CHEMISTRY METHOD 04/24/2025 6:20 PM [facility] Total Protein 7.5 6.0 - 8.0 g/dL LAB CHEMISTRY METHOD 04/24/2025 6:20 PM EDT [facility] Albumin 3.2 3.2 - 5.0 g/dL LAB CHEMISTRY METHOD 04/24/2025 6:20 PM EDT [facility] Total Bilirubin 0.2 0.0 - 1.4 mg/dL LAB CHEMISTRY METHOD 04/24/2025 6:20 PM EDT [facility] Blood Venous blood specimen / Unknown 04/24/2025 3:00 PM EDT 04/24/2025 5:42 PM EDT us Dayana Frost MD LAB BLOOD ORDERABLES Fi nal Result [facility] [address] [place] [address], documented in this encounter Visit Diagnoses Diagnosis Disease of digestive system, unspecified Other diseases of stomach and duodenum documented in this encounter Additional Health Concerns Active Problems Noted Date Diagnosed Date Autogenerated Problem 04/11/2025 Infection Onset Date Last Indicated Resolved Time Gastrointestinal Rule-Out Comment:Prior admission 04/20/2025 04/20/2025 04/25/2025 9:12 AM EDT Respiratory Rule-Out 05/04/2025 05/04/2025 025 10:38 PM EDT COVID-19 Rule-Out 05/04/2025 05/04/2025 05/04/2025 10:38 PM EDT Respiratory Rule-Out 05/30/2025 05/30/2025 025 12:23 PM EST COVID-19 Rule-Out 05/30/2025 05/30/2025 05/30/2025 12:23 PM EST documented as of this encounter Care Teams Automatic Furnace Operator Relationship Specialty Start Date End Date Cassius Alvarez MD [address] [place] [address] PCP - General Internal Medicine 06/07/24 documented as of this encounter
--- OUTSIDE RECORDS SUMMARY | 2025-06-13 17:09 | XMS_ITS | Encounter Summary ---
Author Organization [place] [address] Care Team Providers Care Engineering Production Worker Name Role Phone Cassius Alvarez MD Primary Care Provider [phone] Encounter Details Date Type Department Care Team ([facility] st Contact Info) Description 05/01/2025 Results Follow-Up General Surgery - [address] [place] [address] Dayana Frost MD [address] [place] [phone] Social History Tobacco Use Types Packs/Day [...] ed Within the last 3 months, gilbert w many times did you visit the [...] care for your loved ones. For example, attendant children's institution or elderly care for an older adult? [...] 03/17/2025 5:44 AM Arleth Peres, RN * Are you blind or do you have serious difficulty seeing, even when wearing glasses? Answer Date of Assessment Author No 03/17/2025 5:44 AM EDT Arleth Perez RN * Do you have serious difficulty walking or climbing stairs? Answer Date of Assessment Author No 03/17/2025 5:44 AM EDT Arleth Perez RN * Do you have serious difficulty dressing or bathing? Answer Date of Assessment Author No 03/17/2025 5:44 AM EDT Arleth Perez RN * Because of a physical, mental, or emotional condition, do you have serious difficulty doing errandsalone such as visiting the doctor? Answer Date of Assessment Author No 03/17/2025 5:44 AM Arleth Peres RN * Calculated C-SSRS Risk Score (Lifetime/Recent) Answer Date of Assessment Author No Risk Indicated 05/04/2025 12:20 PM EDT Pepper Zazueta RN * [place] Suicide Severity Rating Scale (Screener/Recent Self-Report) Question Answer Date of Assessment Author 1. Wish to be (Past 1 Month) No 05/04/2025 12:20 PM EDT Pepper Pace RN 2. Non-Specific Active Suicidal Thoughts (Past 1 Month) No 05/04/2025 12:20 PM EDT Pepper Pace RN 6. Suicidal Behavior (Lifetime) No 05/04/2025 12:20 PM WENDYT Pepper Pace RN documented as of this [...] Description 06/14/2025 7:45 AM EST Hospital Encounter [facility] Endoscopy [address] [place] [phone] Angelika Verde MD [address] [address] Nj Hernandez CRNA [address] [address] Jordin Salvador MD 114 [place] [address] 07/17/2025 8:00 AM EST Appointment [facility] Nuclear Medicine [address] [place] [address] 07/18/2025 9:00 AM EST Office Visit Bariatric Surgery - [place] 175 [facility] [address] [place] [address] Dayana Frost MD 230 [place] [phone] documented as of this encounter Goals Goal [...] documented as of this encounter Care Teams Engineering Production Worker Relationship Specialty Start Date End Date Cassius Alvarez MD [address] [place] [address] PCP - General Internal Medicine 06/07/24 documented as of this encounter
--- OUTSIDE RECORDS SUMMARY | 2025-06-13 17:09 | XMS_ITS | Encounter Summary ---
Author Organization [facility] [place] [address] Care Team Providers Care Metal Riveting Machine Operator Name Role Phone Cassius Alvarez MD Primary Care Provider [phone] Encounter Details Date Type Department Care Team ([facility] st Contact Info) Description 04/16/2025 Results Follow-Up Gastroenterology - [address] [phone] Pietro Mayer MD [address] [place] [address] Social History Tobacco Use Types Packs/Day Years [...] Description 06/14/2025 7:45 AM EST Hospital Encounter [facility] Endoscopy [address] [place] [address] Angelika Verde MD [address] [address] Nj Hernandez CRNA [address] [place] [address] Jordin Salvador MD [address] [place] [address] 07/17/2025 8:00 AM EST Appointment [facility] Nuclear Medicine [address] [place] [address] 07/18/2025 9:00 AM EST Office Visit Bariatric Surgery - [place] 175 [facility] [address] [place] [address] Dayana Frost MD 230 [place] [phone] documented as of this encounter Goals Goal [...] as of this encounter Care Teams Metal Riveting Machine Operator Relationship Specialty Start Date End Date Cassius Alvarez MD [address] [place] [address] PCP - General Internal Medicine 06/07/24 documented as of this encounter
--- OUTSIDE RECORDS SUMMARY | 2025-06-13 17:09 | XMS_ITS | Encounter Summary ---
Author Organization [facility] [place] [address] Care Team Providers Care Sensor Technician Name Role Phone Cassius Alvarez MD Primary Care Provider [phone] Encounter Details Date Type Department Care Team ([facility] st Contact Info) Description 05/23/2025 Results Follow-Up Bariatric Surgery - [address] [place] [address] Dayana Frost MD [address] [place] [phone] Social History Tobacco Use Types Packs/Day [...] for your loved ones. For example, child care associate teacher or elderly care for an older [...] Description 06/14/2025 7:45 AM EST Hospital Encounter [facility] Endoscopy [address] [place] [phone] Angelika Verde MD 299 [facility] [address] [place] [address] Nj Hernandez CRNA [address] [address] Jordin Salvador MD 114 [place] [address] 07/17/2025 8:00 AM EST Appointment [facility] Nuclear Medicine [address] [place] [phone] 07/18/2025 9:00 AM EST Office Visit Bariatric Surgery - [place] 175 [facility] [address] [place] [phone] Dayana Frost MD 230 [place] [address] documented as of this encounter [...] documented as of this encounter Care Teams Sensor Technician Relationship Specialty Start Date End Date Cassius Alvarez MD [address] [place] [address] PCP - General Internal Medicine 06/07/24 documented as of this encounter
--- OUTSIDE RECORDS SUMMARY | 2025-06-13 17:09 | XMS_ITS | Encounter Summary ---
Author Organization [facility] [place] [address] Care Team Providers Care Training And Development Director Name Role Phone Cassius Alvarez MD Primary Care Provider Encounter Details Date Type Department Care Team (Late st Contact Info) Description 05/28/2025 Lab Requisition [facility] - Main Lab [address] [facility] [place] [address] Dayana Frost MD [address] [place] [phone] Disease of digestive system, unspecified; Other diseases [...] for your loved ones. For example, child welfare caseworker or elderly care for an older adult? [...] 05/30/2025 8:17 AM Maki Garcia RN * [place] Suicide Severity Rating Scale (Screener/Recent Self-Report) Question [...] st Contact Info) Description 06/14/2025 7:45 AM [facility] Encounter [facility] Endoscopy [address] [place] [phone] Angelika Verde MD 299 [facility] [address] [place] [address] Nj Hernandez CRNA [address] [address] Jordin Salvador MD 114 [place] [address] 07/17/2025 8:00 AM EST Appointment [facility] Nuclear Medicine [address] [place] [address] 07/18/2025 9:00 AM EST Office Visit Bariatric Surgery - [place] 175 [facility] [address] [place] [address] Dayana Frost MD [address] [place] [phone] documented as of this encounter Goals Goal Patient Goal Type Associated Problems Recent Progress Patient-Stated? Author Autogenerat ed Goal Care Plan Autogenerated Problem No Bouchra Collado RN Autogenerat ed Goal Care Plan Autogenerated Problem No Rosalva Bruce documented as of this encounter Procedures Procedure Name Priority Date/Time Associated Diagnosis Comments SST - GOLD Routine 05/28/2025 3:00 PM EST Disease of digestive system, unspecified Other diseases of stomach and duodenum CBC WITH AUTO DIFFERENTIAL Routine 05/28/2025 3:00 PM EST Disease of digestive system, unspecified Other diseases of stomach and duodenum CBC AND DIFFERENTIAL Routine 05/28/2025 3:00 PM EST Disease of digestive system, unspecified Other diseases of stomach and duodenum TRIGLYCERIDES Routine 05/28/2025 3:00 PM EST Disease of digestive system, unspecified Other diseases of stomach and duodenum PHOSPHORUS Routine 05/28/2025 3:00 PM EST Disease of digestive system, unspecified Other diseases of stomach and duodenum MAGNESIUM Routine 05/28/2025 3:00 PM EST Disease of digestive system, unspecified Other diseases of stomach and duodenum COMPREHENSIVE METABOLIC PANEL Routine 05/28/2025 3:00 PM EST Disease of digestive system, unspecified Other diseases of stomach and duodenum documented in this encounter Results * SST tube (05/28/2025 3:00 PM EST) Extra Tube Hold for add-ons. 05/28/2025 8:01 PM EST [facility] Comment:Auto resulted. Blood Venous blood specimen / Unknown 05/28/2025 3:00 PM EST 05/28/2025 6:55 PM EST Dayana Frost MD LAB BLOOD ORDERABLES Fi nal Result [facility] [address] [place] [address], * CBC auto differential (05/28/2025 3:00 PM EST) Pathologist [facility] WBC 10.1 4.8 - 10.8 K/mcL LAB HEMETOLOGY METHOD 05/28/2025 7:25 PM [facility] RBC 4.00 3.80 - 4.80 M/mcL LAB HEMETOLOGY METHOD 05/28/2025 7:25 PM [facility] Hemoglobin 12.6 11.5 - 16.0 g/dL LAB HEMETOLOGY METHOD 05/28/2025 7:25 PM [facility] Hematocrit 38.4 35.0 - 47.0 % LAB HEMETOLOGY METHOD 05/28/2025 7:25 PM [facility] MCV 96.5 79.0 - 98.0 FL LAB HEMETOLOGY METHOD 05/28/2025 7:25 PM [facility] MCH 31.7 27.0 - 32.0 pcg LAB HEMETOLOGY METHOD 05/28/2025 7:25 PM [facility] MCHC 32.8 32.0 - 37.0 g/dL LAB HEMETOLOGY METHOD 05/28/2025 7:25 PM [facility] RDW 14.6 11.0 - 15.0 % LAB HEMETOLOGY METHOD 05/28/2025 7:25 PM [facility] Platelets 352 130 - 400 K/mcL LAB HEMETOLOGY METHOD 05/28/2025 7:25 PM [facility] MPV 10.3 7.0 - 11.0 FL LAB HEMETOLOGY METHOD 05/28/2025 7:25 PM [facility] NRBC 0.0 <1.0 % LAB HEMETOLOGY METHOD 05/28/2025 7:25 PM [facility] NRBC Absolute 0.00 <0.10 K/[facility] LAB HEMETOLOGY METHOD 05/28/2025 7:25 PM [facility] Neutrophils Relative 66.8 % LAB HEMETOLOGY METHOD 05/28/2025 7:25 PM [facility] Lymphocytes Relative 27.0 % LAB HEMETOLOGY METHOD 05/28/2025 7:25 PM [facility] Monocytes Relative 3.8 % LAB HEMETOLOGY METHOD 05/28/2025 7:25 PM [facility] Eosinophils Relative 1.5 % LAB HEMETOLOGY METHOD 05/28/2025 7:25 PM [facility] Basophils Relative 0.6 % LAB HEMETOLOGY METHOD 05/28/2025 7:25 PM [facility] Immature Granulocytes Relative 0.3 % LAB HEMETOLOGY METHOD 05/28/2025 7:25 PM [facility] Neutrophils Absolute 6.76 1.50 - 7.00 K/mcL LAB HEMETOLOGY METHOD 05/28/2025 7:25 PM EST [facility] Lymphocytes Absolute 2.74 1.00 - 5.00 K/mcL LAB HEMETOLOGY METHOD 05/28/2025 7:25 PM EST [facility] Monocytes Absolute 0.39 0.20 - 1.00 K/mcL LAB HEMETOLOGY METHOD 05/28/2025 7:25 PM EST [facility] Eosinophils Absolute 0.15 0.00 - 0.50 K/[facility] LAB HEMETOLOGY METHOD 05/28/2025 7:25 PM EST [facility] Basophils Absolute 0.06 0.00 - 0.20 K/[facility] LAB HEMETOLOGY METHOD 05/28/2025 7:25 PM EST [facility] Immature Granulocytes Absolute 0.03 0.00 - 0.03 K/[facility] LAB HEMETOLOGY METHOD 05/28/2025 7:25 PM EST [facility] Blood Venous blood specimen / Unknown 05/28/2025 3:00 PM EST 05/28/2025 6:53 PM EST us Dayana Frost MD LAB BLOOD ORDERABLES Fi nal Result Performing Organization Address City/[facility]/ZIP Co de Phone Number [facility] [address] [place] [address], * Triglycerides (05/28/2025 3:00 PM EST) Triglycerides 111 0 - 150 mg/dL LAB CHEMISTRY METHOD 05/28/2025 8:28 PM EST [facility] Blood Venous blood specimen / Unknown 05/28/2025 3:00 PM EST 05/28/2025 6:53 PM EST us Dayana Frost MD LAB BLOOD ORDERABLES Fi nal Result [facility] [address] [place] [address], [place] [phone] * Phosphorus (05/28/2025 3:00 PM EST) [facility] Phosphorus 3.6 2.5 - 4.5 mg/dL LAB CHEMISTRY METHOD 05/28/2025 8:28 PM EST [facility] Blood Venous blood specimen / Unknown 05/28/2025 3:00 PM EST 05/28/2025 6:53 PM EST us Dayana Frost MD LAB BLOOD ORDERABLES Fi nal Result [facility] [address] [place] [address], [place] [phone] * Magnesium (05/28/2025 3:00 PM EST) [facility] Magnesium 2.1 1.9 - 2.6 mg/dL LAB CHEMISTRY METHOD 05/28/2025 8:28 PM EST [facility] Blood Venous blood specimen / Unknown 05/28/2025 3:00 PM EST 05/28/2025 6:53 PM EST us Dayana Frost MD LAB BLOOD ORDERABLES Fi nal Result [facility] [address] [place] [address], [place] [phone] * (ABNORMAL) Comprehensive metabolic panel (05/28/2025 3:00 PM EST) [facility] Sodium 137 133 - 145 mmol/L LAB CHEMISTRY METHOD 05/28/2025 8:28 PM EST [facility] Potassium 4.2 3.5 - 5.5 mmol/L LAB CHEMISTRY METHOD 05/28/2025 8:28 PM EST [facility] Chloride 106 96 - 110 mmol/L LAB CHEMISTRY METHOD 05/28/2025 8:28 PM [facility] CO2 24 21 - 32 mmol/L LAB CHEMISTRY METHOD 05/28/2025 8:28 PM [facility] Anion Gap 7 3 - 11 LAB CHEMISTRY METHOD 05/28/2025 8:28 PM [facility] Glucose 79 70 - 100 mg/dL LAB CHEMISTRY METHOD 05/28/2025 8:28 PM [facility] BUN 17 5 - 25 mg/dL LAB CHEMISTRY METHOD 05/28/2025 8:28 PM [facility] Creatinine 1.05 0.50 - 1.10 mg/dL LAB CHEMISTRY METHOD 05/28/2025 8:28 PM [facility] eGFR 73 >=60 mL/min/1. 73m2 LAB CHEMISTRY METHOD 05/28/2025 8:28 PM [facility] Comment:Calculation based on the Chronic Kidney Disease Epidemiology Collaboration (CKD-EPI) equation refit without adjustment for race. BUN/Creatinine Ratio 16.2 LAB CHEMISTRY METHOD 05/28/2025 8:28 PM [facility] Calcium 8.9 8.5 - 10.5 mg/dL LAB CHEMISTRY METHOD 05/28/2025 8:28 PM [facility] AST (SGOT) 11 10 - 42 unit/L LAB CHEMISTRY METHOD 05/28/2025 8:28 PM [facility] ALT (SGPT) 27 10 - 60 unit/L LAB CHEMISTRY METHOD 05/28/2025 8:28 PM [facility] Alkaline Phosphatase 127(H) 42 - 121 unit/L LAB CHEMISTRY METHOD 05/28/2025 8:28 PM [facility] Total Protein 7.6 6.0 - 8.0 g/dL LAB CHEMISTRY METHOD 05/28/2025 8:28 PM [facility] Albumin 3.5 3.2 - 5.0 g/dL LAB CHEMISTRY METHOD 05/28/2025 8:28 PM [facility] Total Bilirubin 0.2 0.0 - 1.4 mg/dL LAB CHEMISTRY METHOD 05/28/2025 8:28 PM EST [facility] Blood Venous blood specimen / Unknown 05/28/2025 3:00 PM EST 05/28/2025 6:53 PM EST us Dayana Frost MD LAB BLOOD ORDERABLES Fi nal Result [facility] [address] [place] [address], documented in this encounter Visit Diagnoses Diagnosis [...] documented as of this encounter Care Teams Training And Development Director Relationship Specialty Start Date End Date Cassius Alvarez MD [address] [place] [address] PCP - General Internal Medicine 06/07/24 documented as of this encounter
--- OUTSIDE RECORDS SUMMARY | 2025-06-13 17:09 | XMS_ITS | Encounter Summary ---
Author Organization [place] [address] Care Team Providers Care Dope Mixer Name Role Phone Cassius Alvarez MD Primary Care Provider [phone] Encounter Details Date Type Department Care Team ([facility] st Contact Info) Description 04/20/2025 Results Follow-Up General Surgery - [address] [place] [address] Dayana Frost MD [address] [place] [phone] Social History Tobacco Use Types Packs/Day [...] for your loved ones. For example, child & adolescent psychiatrist or elderly care for an older adult? [...] 5:44 AM WENDYT Arleth Perez RN * Do you have [...] Date of Assessment Author No Risk Indicated 04/22/2025 2:52 PM Claribel Fraser RN * [place] Suicide Severity Rating Scale (Screener/Recent Self-Report) Question Answer Date of Assessment Author 1. Wish to be (Past 1 Month) No 2:52 PM Claribel Fraser RN 2. Non-Specific Active Suici angie Thoughts (Past 1 Month) No 04/22/2025 2:52 PM Claribel Fraser RN 6. Suicidal Behavior (Lifetime) No 2:52 PM Claribel Fraser RN documented as of this encounter Mental [...] Description 06/14/2025 7:45 AM EST Hospital Encounter [facility] Endoscopy [address] [place] [phone] Angelika Verde MD 299 [facility] [address] [place] [address] Nj Hernandez CRNA [address] [address] Jordin Salvador MD [address] [place] [address] 07/17/2025 8:00 AM EST Appointment [facility] Nuclear Medicine [address] [place] [address] 07/18/2025 9:00 AM EST Office Visit Bariatric Surgery - [place] 175 [facility] [address] [place] [address] Dayana Frost MD [address] [place] [phone] documented as of this encounter Goals Goal [...] documented as of this encounter Care Teams Dope Mixer Relationship Specialty Start Date End Date Cassius Alvarez MD [address] [place] [address] PCP - General Internal Medicine 06/07/24 documented as of this encounter
--- OUTSIDE RECORDS SUMMARY | 2025-06-13 17:09 | XMS_ITS | Encounter Summary ---
Author Organization [facility] [place] [address] Care Team Providers Care Fulling Mill Operator Name Role Phone Cassius Alvarez MD Primary Care Provider [phone] Encounter Details Date Type Department Care Team (Latest Contact Info) Description 08/21/[address] [facility] - Main Lab 299 [facility] [place] [address] Donald Wall PA [address] [facility] Jignesh [address] [place] [address] Hydronephrosis with renal and ureteral [...] Description 06/14/2025 7:45 AM EST Hospital Encounter [facility] Endoscopy [address] [place] [phone] Angelika Verde MD 299 [facility] [address] [place] [address] Nj Hernandez CRNA [address] [address] Jordin Salvador MD [address] [place] [address] 07/17/2025 8:00 AM EST Appointment [facility] Nuclear Medicine [address] [place] [phone] 07/18/2025 9:00 AM EST Office Visit Bariatric Surgery - [facility] 175 [facility] [address] [place] [phone] Dayana Frost MD [address] [place] [phone] documented as of this encounter Procedures Procedure Name Priority Date/Time Associated Diagnosis Comments PARATHYROID HORMONE INTACT Routine 08/21/2024 10:22 AM EST Hydronephrosis with renal and ureteral calculous obstruction documented in this encounter Results * Parathyroid hormone intact (08/21/2024 10:22 AM EST) PTH 54.2 18.5 - 88.0 pcg/mL LAB CHEMISTRY METHOD 08/21/2024 2:11 PM EST [facility] Blood Venous blood specimen / Unknown 08/21/2024 10:22 AM EST 08/21/2024 1:17 PM EST us Donald LINDO LAB BLOOD ORDERABLES Final Res ult [facility] [address] [place] [address], documented in this encounter Visit Diagnoses Diagnosis [...] documented as of this encounter Care Teams Fulling Mill Operator Relationship Specialty Start Date End Date Cassius Alvarez MD [address] [place] [address] PCP - General Internal Medicine 06/07/24 documented as of this encounter
--- OUTSIDE RECORDS SUMMARY | 2025-06-13 17:09 | XMS_ITS | Clinical Summary ---
Author Organization [facility] Prior to 12/09/24 Address [address] [place] [address] Care Team Providers Care Sharepoint Architect Name Role Phone Cassius Alvarez MD Primary Care Provider [phone] Allergies Active Allergy Reactions Criticality Noted Date [...] age to complete this topic Care Teams Sharepoint Architect Relationship Specialty Start Date End Date Cassius Alvarez MD [address] [place] [address] PCP - General Internal Medicine 08/16/23
--- OUTSIDE RECORDS SUMMARY | 2025-06-13 17:09 | XMS_ITS | Encounter Summary ---
Author Organization [facility] [place] [address] Care Team Providers Care Supervisor [employer] Name Role Phone Cassius Alvarez MD Primary Care Provider [phone] Encounter Details Date Type Department Care Team (Late st Contact Info) Description 05/21/2025 Lab Requisition [facility] - Main Lab [address] [place] [address] Dayana Frost MD [address] [place] [phone] Disease of digestive system, unspecified Social History [...] your loved ones. For example, child care leader or elderly care for an older adult? [...] Description 06/14/2025 7:45 AM EST Hospital Encounter [facility] Endoscopy [address] [place] [address] Angelika Verde MD 299 [facility] 419 [place] [address] Nj Hernandez CRNA [address] [address] Jordin Salvador MD 114 [place] [address] 07/17/2025 8:00 AM EST Appointment [facility] Nuclear Medicine [address] [place] [address] 07/18/2025 9:00 AM EST Office Visit Bariatric Surgery - [place] 175 [facility] 120 [place] [address] Dayana Frost MD [address] [place] [phone] documented as of this encounter Goals Goal Patient Goal Type Associated Problems Recent Progress Patient-Stated? Author Autogenerat ed Goal Care Plan Autogenerated Problem No Bouchra Collado RN Autogenerat ed Goal Care Plan Autogenerated Problem No Rosalva Bruce documented as of this encounter Procedures Procedure Name Priority Date/Time Associated Diagnosis Comments SST - GOLD Routine 05/21/2025 12:00 AM EST Disease of digestive system, unspecified CBC WITH AUTO DIFFERENTIAL Routine 05/21/2025 12:00 AM EST Disease of digestive system, unspecified CBC AND DIFFERENTIAL Routine 05/21/2025 12:00 AM EST Disease of digestive system, unspecified TRIGLYCERIDES Routine 05/21/2025 12:00 AM EST Disease of digestive system, unspecified PHOSPHORUS Routine 05/21/2025 12:00 AM EST Disease of digestive system, unspecified MAGNESIUM Routine 05/21/2025 12:00 AM EST Disease of digestive system, unspecified COMPREHENSIVE METABOLIC PANEL Routine 05/21/2025 12:00 AM EST Disease of digestive system, unspecified documented in this encounter Results * SST tube (05/21/2025 12:00 AM EST) Extra Tube Hold for add-ons. 05/21/2025 6:01 PM EST [facility] Comment:Auto resulted. Blood Venous blood specimen / Unknown 05/21/2025 05/21/2025 4:05 PM EST Dayana Frost MD LAB BLOOD ORDERABLES Fi nal Result [facility] [address] [place] [address], * (ABNORMAL) CBC auto differential (05/21/2025 12:00 AM EST) WBC 10.4 4.8 - 10.8 K/mcL LAB HEMETOLOGY METHOD 05/21/2025 4:16 PM EST [facility] RBC 3.80 3.80 - 4.80 M/mcL LAB HEMETOLOGY METHOD 05/21/2025 4:16 PM EST [facility] Hemoglobin 11.9 11.5 - 16.0 g/dL LAB HEMETOLOGY METHOD 05/21/2025 4:16 PM [facility] Hematocrit 36.2 35.0 - 47.0 % LAB HEMETOLOGY METHOD 05/21/2025 4:16 PM EST [facility] MCV 95.8 79.0 - 98.0 FL LAB HEMETOLOGY METHOD 05/21/2025 4:16 PM EST [facility] MCH 31.5 27.0 - 32.0 pcg LAB HEMETOLOGY METHOD 05/21/2025 4:16 PM EST [facility] MCHC 32.9 32.0 - 37.0 g/dL LAB HEMETOLOGY METHOD 05/21/2025 4:16 PM EST [facility] RDW 14.9 11.0 - 15.0 % LAB HEMETOLOGY METHOD 05/21/2025 4:16 PM [facility] Platelets 331 130 - 400 K/mcL LAB HEMETOLOGY METHOD 05/21/2025 4:16 PM [facility] MPV 9.7 7.0 - 11.0 FL LAB HEMETOLOGY METHOD 05/21/2025 4:16 PM [facility] NRBC 0.0 <1.0 % LAB HEMETOLOGY METHOD 05/21/2025 4:16 PM [facility] NRBC Absolute 0.00 <0.10 K/mcL LAB HEMETOLOGY METHOD 05/21/2025 4:16 PM [facility] Neutrophils Relative 66.3 % LAB HEMETOLOGY METHOD 05/21/2025 4:16 PM [facility] Lymphocytes Relative 26.9 % LAB HEMETOLOGY METHOD 05/21/2025 4:16 PM [facility] Monocytes Relative 4.0 % LAB HEMETOLOGY METHOD 05/21/2025 4:16 PM [facility] Eosinophils Relative 1.9 % LAB HEMETOLOGY METHOD 05/21/2025 4:16 PM [facility] Basophils Relative 0.4 % LAB HEMETOLOGY METHOD 05/21/2025 4:16 PM [facility] Immature Granulocytes Relative 0.5 % LAB HEMETOLOGY METHOD 05/21/2025 4:16 PM [facility] Neutrophils Absolute 6.90 1.50 - 7.00 K/mcL LAB HEMETOLOGY METHOD 05/21/2025 4:16 PM [facility] Lymphocytes Absolute 2.80 1.00 - 5.00 K/mcL LAB HEMETOLOGY METHOD 05/21/2025 4:16 PM [facility] Monocytes Absolute 0.42 0.20 - 1.00 K/mcL LAB HEMETOLOGY METHOD 05/21/2025 4:16 PM [facility] Eosinophils Absolute 0.20 0.00 - 0.50 K/mcL LAB HEMETOLOGY METHOD 05/21/2025 4:16 PM [facility] Basophils Absolute 0.04 0.00 - 0.20 K/mcL LAB HEMETOLOGY METHOD 05/21/2025 4:16 PM [facility] Immature Granulocytes Absolute 0.05(H) 0.00 - 0.03 K/mcL LAB HEMETOLOGY METHOD 05/21/2025 4:16 PM EST [facility] Blood Venous blood specimen / Unknown 05/21/2025 05/21/2025 4:05 PM EST us Dayana Frost MD LAB BLOOD ORDERABLES Fi nal Result [facility] [address] [place] [address], [place] [phone] * Triglycerides (05/21/2025 12:00 AM EST) Triglycerides 128 0 - 150 mg/dL LAB CHEMISTRY METHOD 05/21/2025 5:19 PM EST [facility] Blood Venous blood specimen / Unknown 05/21/2025 05/21/2025 4:05 PM EST us Dayana Frost MD LAB BLOOD ORDERABLES Fi nal Result Performing Organization Address City/[facility]/ZIP Co de Phone Number [facility] [address] [place] [address], [place] [phone] * Phosphorus (05/21/2025 12:00 AM EST) Phosphorus 3.7 2.5 - 4.5 mg/dL LAB CHEMISTRY METHOD 05/21/2025 5:19 PM EST [facility] Blood Venous blood specimen / Unknown 05/21/2025 05/21/2025 4:05 PM EST us Dayana Frost MD LAB BLOOD ORDERABLES Fi nal Result Performing Organization Address City/[facility]/ZIP Co de Phone Number [facility] [address] [place] [address], [place] [phone] * Magnesium (05/21/2025 12:00 AM EST) Magnesium 2.1 1.9 - 2.6 mg/dL LAB CHEMISTRY METHOD 05/21/2025 5:19 PM [facility] Blood Venous blood specimen / Unknown 05/21/2025 05/21/2025 4:05 PM EST us Dyaana Frost MD LAB BLOOD ORDERABLES Fi nal Result [facility] [address] [place] [address], [place] [phone] * (ABNORMAL) Comprehensive metabolic panel (05/21/2025 12:00 AM EST) [facility] Sodium 137 133 - 145 mmol/L LAB CHEMISTRY METHOD 05/21/2025 5:19 PM [facility] Potassium 3.9 3.5 - 5.5 mmol/L LAB CHEMISTRY METHOD 05/21/2025 5:19 PM [facility] Chloride 104 96 - 110 mmol/L LAB CHEMISTRY METHOD 05/21/2025 5:19 PM [facility] CO2 24 21 - 32 mmol/L LAB CHEMISTRY METHOD 05/21/2025 5:19 PM [facility] Anion Gap 9 3 - 11 LAB CHEMISTRY METHOD 05/21/2025 5:19 PM [facility] Glucose 92 70 - 100 mg/dL LAB CHEMISTRY METHOD 05/21/2025 5:19 PM [facility] BUN 15 5 - 25 mg/dL LAB CHEMISTRY METHOD 05/21/2025 5:19 PM [facility] Creatinine 0.63 0.50 - 1.10 mg/dL LAB CHEMISTRY METHOD 05/21/2025 5:19 PM [facility] eGFR 121 >=60 mL/min/1. 73m2 LAB CHEMISTRY METHOD 05/21/2025 5:19 PM [facility] Comment:Calculation based on the Chronic Kidney Disease Epidemiology Collaboration (CKD-EPI) equation refit without adjustment for race. BUN/Creatinine Ratio 23.8 LAB CHEMISTRY METHOD 05/21/2025 5:19 PM [facility] Calcium 9.1 8.5 - 10.5 mg/dL LAB CHEMISTRY METHOD 05/21/2025 5:19 PM [facility] AST (SGOT) 9(L) 10 - 42 unit/L LAB CHEMISTRY METHOD 05/21/2025 5:19 PM [facility] ALT (SGPT) 24 10 - 60 unit/L LAB CHEMISTRY METHOD 05/21/2025 5:19 PM [facility] Alkaline Phosphatase 130(H) 42 - 121 unit/L LAB CHEMISTRY METHOD 05/21/2025 5:19 PM [facility] Total Protein 7.4 6.0 - 8.0 g/dL LAB CHEMISTRY METHOD 05/21/2025 5:19 PM [facility] Albumin 3.3 3.2 - 5.0 g/dL LAB CHEMISTRY METHOD 05/21/2025 5:19 PM [facility] Total Bilirubin 0.3 0.0 - 1.4 mg/dL LAB CHEMISTRY METHOD 05/21/2025 5:19 PM [facility] Blood Venous blood specimen / Unknown 05/21/2025 05/21/2025 4:05 PM EST us Dayana Frost MD LAB BLOOD ORDERABLES Fi nal Result [facility] [address] [place] [address], documented in this encounter Visit Diagnoses Diagnosis Disease of digestive system, unspecified documented in this encounter Additional Health Concerns Active Problems Noted Date Diagnosed Date Autogenerated Problem 04/11/2025 Autogenerated Problem 05/16/2025 Infection Onset Date Last Indicated Resolved Time Respiratory Rule-Out 05/30/2025 05/30/2025 025 12:23 PM EST COVID-19 Rule-Out 05/30/2025 05/30/2025 05/30/2025 12:23 PM EST documented as of this encounter Care Teams Supervisor [employer] Relationship Specialty Start Date End Date Cassius Alvarez MD [address], [place] [address] PCP - General Internal Medicine 06/07/24 documented as of this encounter
--- OUTSIDE RECORDS SUMMARY | 2025-06-13 17:09 | XMS_ITS | Encounter Summary ---
Author Organization [facility] [place] [address] Care Team Providers Care Mechanical Integrity Specialist Name Role Phone Cassius Alvarez MD Primary Care Provider [phone] Encounter Details Date Type Department Care Team ([facility] st Contact Info) Description 05/10/2025 Results Follow-Up Bariatric Surgery - [address] [place] [address] Dayana Frost MD [address] [place] [phone] Social History Tobacco Use Types Packs/Day [...] for your loved ones. For example, child caregiver or elderly care for an older adult? [...] Description 06/14/2025 7:45 AM EST Hospital Encounter [facility] Endoscopy [address] [place] [phone] Angelika Verde MD 299 [facility] 419 [place] [address] Nj Hernandez CRNA [address] [address] Jordin Salvador MD 114 [place] [address] 07/17/2025 8:00 AM EST Appointment [facility] Nuclear Medicine [address] [place] [phone] 07/18/2025 9:00 AM EST Office Visit Bariatric Surgery - [place] 175 [facility] [address] [place] [phone] Dayana Frost MD 230 [place] [phone] documented as of this encounter [...] documented as of this encounter Care Teams Mechanical Integrity Specialist Relationship Specialty Start Date End Date Cassius Alvarez MD [address] [place] [address] PCP - General Internal Medicine 06/07/24 documented as of this encounter
--- OUTSIDE RECORDS SUMMARY | 2025-06-13 17:09 | XMS_ITS | Encounter Summary ---
Author Organization [facility] [place] [address] Care Team Providers Care Oncology Transplant Network Manager Name Role Phone Cassius Alvarez MD Primary Care Provider [phone] Encounter Details Date Type Department Care Team ([facility] st Contact Info) Description 05/10/2025 Results Follow-Up Bariatric Surgery - [address] [place] [address] Dayana Frost MD [address] [place] [phone] Social History Tobacco Use Types Packs/Day [...] care for your loved ones. For example, early childhood education worker or elderly care for an older [...] 03/17/2025 5:44 AM Arleht Peres RN * Do you have serious [...] 06/14/2025 7:45 AM EST Hospital Encounter [facility] Endoscopy [address] [place] [phone] Angelika Verde MD 299 [facility] [address] [place] [address] Nj Hernandez CRNA [address] [address] Jordin Salvador MD 114 [place] [address] 07/17/2025 8:[address] [facility] Nuclear Medicine [address] [place] [phone] 07/18/2025 9:00 AM EST Office Visit Bariatric Surgery - [place] 175 [facility] 120 [place] [phone] Dayana Frost MD 230 [place] [phone] documented as of this encounter [...] documented as of this encounter Care Teams Oncology Transplant Network Manager Relationship Specialty Start Date End Date Cassius Alvarez MD [address] [place] [address] PCP - General Internal Medicine 06/07/24 documented as of this encounter
--- OUTSIDE RECORDS SUMMARY | 2025-06-13 17:09 | XMS_ITS | Encounter Summary ---
Author Organization [facility] [place] [address] Care Team Providers Care Tumbling Machine Operator Name Role Phone Cassius Alvarez MD Primary Care Provider [phone] Encounter Details Date Type Department Care Team (Late st Contact Info) Description 05/14/2025 Lab Requisition [facility] - Main Lab [address] [facility] [address] [place] [address] Dayana Frost MD 230 [place] [phone] Disease of digestive system, unspecified; Other diseases [...] your loved ones. For example, child care provider or elderly care for an older adult? [...] 06/14/2025 7:45 AM EST Hospital Encounter [facility] Endoscopy [address] [place] [address] Angelika Verde MD 299 [facility] 419 [place] [address] Nj Hernandez CRNA [address] [address] Jordin Salvador MD 114 [place] [address] 07/17/2025 8:[address] [facility] Nuclear Medicine [address] [place] [address] 07/18/2025 9:00 AM EST Office Visit Bariatric Surgery - [place] 175 [facility] 120 [place] [address] Dayana Frost MD [address] [place] [phone] documented as of this encounter Goals Goal Patient Goal Type Associated Problems Recent Progress Patient-Stated? Author Autogenerat ed Goal Care Plan Autogenerated Problem No Bouchra Collado RN documented as of this encounter Procedures Procedure Name Priority Date/Time Associated Diagnosis Comments SST - GOLD Routine 05/14/2025 12:00 AM EST Disease of digestive system, unspecified Other diseases of stomach and duodenum CBC WITH AUTO DIFFERENTIAL Routine 05/14/2025 12:00 AM EST Disease of digestive system, unspecified Other diseases of stomach and duodenum CBC AND DIFFERENTIAL Routine 05/14/2025 12:00 AM EST Disease of digestive system, unspecified Other diseases of stomach and duodenum TRIGLYCERIDES Routine 05/14/2025 12:00 AM EST Disease of digestive system, unspecified Other diseases of stomach and duodenum PHOSPHORUS Routine 05/14/2025 12:00 AM EST Disease of digestive system, unspecified Other diseases of stomach and duodenum MAGNESIUM Routine 05/14/2025 12:00 AM EST Disease of digestive system, unspecified Other diseases of stomach and duodenum COMPREHENSIVE METABOLIC PANEL Routine 05/14/2025 12:00 AM EST Disease of digestive system, unspecified Other diseases of stomach and duodenum documented in this encounter Results * SST tube (05/14/2025 12:00 AM EST) Extra Tube Hold for add-ons. 05/14/2025 9:[address] [facility] Comment:Auto resulted. Blood Venous blood specimen / Unknown 05/14/2025 05/14/2025 7:08 PM EST us Dayana Frost MD LAB BLOOD ORDERABLES Fi nal Result [facility] [address] [place] [address], * (ABNORMAL) CBC auto differential (05/14/2025 12:00 AM EST) WBC 11.1(H) 4.8 - 10.8 K/mcL LAB HEMETOLOGY METHOD 05/14/2025 7:15 PM EST [facility] RBC 3.60(L) 3.80 - 4.80 M/mcL LAB HEMETOLOGY METHOD 05/14/2025 7:15 PM [facility] Hemoglobin 11.5 11.5 - 16.0 g/dL LAB HEMETOLOGY METHOD 05/14/2025 7:15 PM [facility] Hematocrit 35.8 35.0 - 47.0 % LAB HEMETOLOGY METHOD 05/14/2025 7:15 PM [facility] MCV 98.6(H) 79.0 - 98.0 FL LAB HEMETOLOGY METHOD 05/14/2025 7:15 PM [facility] MCH 31.7 27.0 - 32.0 pcg LAB HEMETOLOGY METHOD 05/14/2025 7:15 PM EST [facility] MCHC 32.1 32.0 - 37.0 g/dL LAB HEMETOLOGY METHOD 05/14/2025 7:15 PM [facility] RDW 15.9(H) 11.0 - 15.0 % LAB HEMETOLOGY METHOD 05/14/2025 7:15 PM [facility] Platelets 284 130 - 400 K/mcL LAB HEMETOLOGY METHOD 05/14/2025 7:15 PM [facility] MPV 9.7 7.0 - 11.0 FL LAB HEMETOLOGY METHOD 05/14/2025 7:15 PM [facility] NRBC 0.0 <1.0 % LAB HEMETOLOGY METHOD 05/14/2025 7:15 PM [facility] NRBC Absolute 0.00 <0.10 K/mcL LAB HEMETOLOGY METHOD 05/14/2025 7:15 PM [facility] Neutrophils Relative 68.2 % LAB HEMETOLOGY METHOD 05/14/2025 7:15 PM [facility] Lymphocytes Relative 26.7 % LAB HEMETOLOGY METHOD 05/14/2025 7:15 PM [facility] Monocytes Relative 3.3 % LAB HEMETOLOGY METHOD 05/14/2025 7:15 PM [facility] Eosinophils Relative 1.1 % LAB HEMETOLOGY METHOD 05/14/2025 7:15 PM [facility] Basophils Relative 0.3 % LAB HEMETOLOGY METHOD 05/14/2025 7:15 PM [facility] Immature Granulocytes Relative 0.4 % LAB HEMETOLOGY METHOD 05/14/2025 7:15 PM [facility] Neutrophils Absolute 7.57(H) 1.50 - 7.00 K/mcL LAB HEMETOLOGY METHOD 05/14/2025 7:15 PM [facility] Lymphocytes Absolute 2.96 1.00 - 5.00 K/mcL LAB HEMETOLOGY METHOD 05/14/2025 7:15 PM [facility] Monocytes Absolute 0.37 0.20 - 1.00 K/mcL LAB HEMETOLOGY METHOD 05/14/2025 7:15 PM [facility] Eosinophils Absolute 0.12 0.00 - 0.50 K/mcL LAB HEMETOLOGY METHOD 05/14/2025 7:15 PM [facility] Basophils Absolute 0.03 0.00 - 0.20 K/mcL LAB HEMETOLOGY METHOD 05/14/2025 7:15 PM EST [facility] Immature Granulocytes Absolute 0.04(H) 0.00 - 0.03 K/[facility] LAB HEMETOLOGY METHOD 05/14/2025 7:15 PM EST [facility] Blood Venous blood specimen / Unknown 05/14/2025 05/14/2025 7:08 PM EST us Dayana Frost MD LAB BLOOD ORDERABLES Fi nal Result Performing Organization Address City/[facility]/ZIP Co de Phone Number [facility] [address] [place] [address], [place] [phone] * Triglycerides (05/14/2025 12:00 AM EST) Triglycerides 129 0 - 150 mg/dL LAB CHEMISTRY METHOD 05/14/2025 7:37 PM EST [facility] Blood Venous blood specimen / Unknown 05/14/2025 05/14/2025 7:08 PM EST us Dayana Frost MD LAB BLOOD ORDERABLES Fi nal Result Performing Organization Address City/[facility]/ZIP Co de Phone Number [facility] [address] [place] [address], [place] [phone] * Phosphorus (05/14/2025 12:00 AM EST) Phosphorus 3.3 2.5 - 4.5 mg/dL LAB CHEMISTRY METHOD 05/14/2025 7:37 PM EST [facility] Blood Venous blood specimen / Unknown 05/14/2025 05/14/2025 7:08 PM EST us Dayana Frost MD LAB BLOOD ORDERABLES Fi nal Result [facility] [address] [place] [address], [place] [phone] * Magnesium (05/14/2025 12:00 AM EST) [facility] Magnesium 2.1 1.9 - 2.6 mg/dL LAB CHEMISTRY METHOD 05/14/2025 7:37 PM [facility] Blood Venous blood specimen / Unknown 05/14/2025 05/14/2025 7:08 PM EST us Dayana Frost MD LAB BLOOD ORDERABLES Fi nal Result [facility] [address] [place] [address], [place] [phone] * (ABNORMAL) Comprehensive metabolic panel (05/14/2025 12:00 AM EST) [facility] Sodium 137 133 - 145 mmol/L LAB CHEMISTRY METHOD 05/14/2025 7:37 PM [facility] Potassium 3.7 3.5 - 5.5 mmol/L LAB CHEMISTRY METHOD 05/14/2025 7:37 PM [facility] Chloride 106 96 - 110 mmol/L LAB CHEMISTRY METHOD 05/14/2025 7:37 PM [facility] CO2 24 21 - 32 mmol/L LAB CHEMISTRY METHOD 05/14/2025 7:37 PM [facility] Anion Gap 7 3 - 11 LAB CHEMISTRY METHOD 05/14/2025 7:37 PM [facility] Glucose 59(L) 70 - 100 mg/dL LAB CHEMISTRY METHOD 05/14/2025 7:37 PM [facility] BUN 14 5 - 25 mg/dL LAB CHEMISTRY METHOD 05/14/2025 7:37 PM [facility] Creatinine 0.60 0.50 - 1.10 mg/dL LAB CHEMISTRY METHOD 05/14/2025 7:37 PM [facility] eGFR 122 >=60 mL/min/1. 73m2 LAB CHEMISTRY METHOD 05/14/2025 7:37 PM [facility] Comment:Calculation based on the Chronic Kidney Disease Epidemiology Collaboration (CKD-EPI) equation refit without adjustment for race. BUN/Creatinine Ratio 23.3 LAB CHEMISTRY METHOD 05/14/2025 7:37 PM [facility] Calcium 9.0 8.5 - 10.5 mg/dL LAB CHEMISTRY METHOD 05/14/2025 7:37 PM [facility] AST (SGOT) 9(L) 10 - 42 unit/L LAB CHEMISTRY METHOD 05/14/2025 7:37 PM [facility] ALT (SGPT) 26 10 - 60 unit/L LAB CHEMISTRY METHOD 05/14/2025 7:37 PM [facility] Alkaline Phosphatase 146(H) 42 - 121 unit/L LAB CHEMISTRY METHOD 05/14/2025 7:37 PM [facility] Total Protein 7.4 6.0 - 8.0 g/dL LAB CHEMISTRY METHOD 05/14/2025 7:37 PM [facility] Albumin 3.2 3.2 - 5.0 g/dL LAB CHEMISTRY METHOD 05/14/2025 7:37 PM [facility] Total Bilirubin 0.2 0.0 - 1.4 mg/dL LAB CHEMISTRY METHOD 05/14/2025 7:37 PM [facility] Blood Venous blood specimen / Unknown 05/14/2025 05/14/2025 7:08 PM EST us Dayana Frost MD LAB BLOOD ORDERABLES Fi nal Result [facility] [address] [place] [address], documented in this encounter Visit Diagnoses Diagnosis [...] documented as of this encounter Care Teams Tumbling Machine Operator Relationship Specialty Start Date End Date Cassius Alvarez MD [address] [place] [address] PCP - General Internal Medicine 06/07/24 documented as of this encounter
--- OUTSIDE RECORDS SUMMARY | 2025-06-13 17:09 | XMS_ITS | Encounter Summary ---
Author Organization [facility] [place] [address] Care Team Providers Care Rcp Name Role Phone Cassius Alvarez MD Primary Care Provider [phone] Encounter Details Date Type Department Care Team (Late st Contact Info) Description 04/16/2025 Lab Requisition [facility] - Main Lab [address] [place] [address] Dayana Frost MD [address] [place] [phone] Other diseases of stomach and duodenum; Disease [...] 06/14/2025 7:45 AM EST Hospital Encounter [facility] Endoscopy [address] [place] [phone] Angelika Verde MD [address] [address] Nj Hernandez CRNA [address] [place] [address] Jordin Salvador MD [address] [place] [address] 07/17/2025 8:00 AM EST Appointment [facility] Nuclear Medicine [address] [place] [address] 07/18/2025 9:00 AM EST Office Visit Bariatric Surgery - [place] [address] [facility] [address] [place] [address] Dayana Frost MD [address] [place] [address] documented as of this encounter [...] Hold for add-ons. 04/16/2025 8:01 PM EDT [facility] Comment:Auto resulted. Blood Venous blood specimen / Unknown 04/16/2025 04/16/2025 6:35 PM EDT us Dayana Frost MD LAB BLOOD ORDERABLES Fi nal Result [facility] [address] [place] [address], [place] [phone] * (ABNORMAL) CBC auto differential (04/16/2025 12:00 AM EDT) [facility] WBC 10.3 4.8 - 10.8 K/mcL LAB HEMETOLOGY METHOD 04/16/2025 7:07 PM EDT [facility] RBC 3.70(L) 3.80 - 4.80 M/mcL LAB HEMETOLOGY METHOD [facility] Hemoglobin 11.3(L) 11.5 - 16.0 g/dL LAB HEMETOLOGY METHOD 04/16/2025 7:07 PM EDT [facility] Hematocrit 36.5 35.0 - 47.0 % LAB HEMETOLOGY METHOD 04/16/2025 [facility] MCV 97.9 79.0 - 98.0 FL LAB HEMETOLOGY METHOD 04/16/2025 7[facility] MCH 30.3 27.0 - 32.0 pcg LAB HEMETOLOGY METHOD 04/16/2025 7[facility] MCHC 31.0(L) 32.0 - 37.0 g/dL LAB HEMETOLOGY METHOD 04/16/2025 7:[facility] RDW 16.4(H) 11.0 - 15.0 % LAB HEMETOLOGY METHOD 04/16/2025 7:07 PM [facility] Platelets 359 130 - 400 K/mcL LAB HEMETOLOGY METHOD 04/16/2025 7:07 PM [facility] MPV 10.2 7.0 - 11.0 FL LAB HEMETOLOGY METHOD 04/16/2025 7:07 PM [facility] NRBC 0.0 <1.0 % LAB HEMETOLOGY METHOD 04/16/2025 7:07 PM [facility] NRBC Absolute 0.00 <0.10 K/mcL LAB HEMETOLOGY METHOD 04/16/2025 7:07 PM [facility] Neutrophils Relative 58.7 % LAB HEMETOLOGY METHOD 04/16/2025 7:07 PM [facility] Lymphocytes Relative 32.5 % LAB HEMETOLOGY METHOD 04/16/2025 7:07 PM [facility] Monocytes Relative 4.8 % LAB HEMETOLOGY METHOD 04/16/2025 7:07 PM [facility] Eosinophils Relative 2.4 % LAB HEMETOLOGY METHOD 04/16/2025 7:07 PM [facility] Basophils Relative 1.2 % LAB HEMETOLOGY METHOD 04/16/2025 7:07 PM [facility] Immature Granulocytes Relative 0.4 % LAB HEMETOLOGY METHOD 04/16/2025 7:07 PM [facility] Neutrophils Absolute 6.06 1.50 - 7.00 K/mcL LAB HEMETOLOGY METHOD 04/16/2025 7:07 PM [facility] Lymphocytes Absolute 3.36 1.00 - 5.00 K/mcL LAB HEMETOLOGY METHOD 04/16/2025 7:07 PM [facility] Monocytes Absolute 0.50 0.20 - 1.00 K/mcL LAB HEMETOLOGY METHOD 04/16/2025 7:07 PM EDT [facility] Eosinophils Absolute 0.25 0.00 - 0.50 K/[facility] LAB HEMETOLOGY METHOD 04/16/2025 7:07 PM EDT [facility] Basophils Absolute 0.12 0.00 - 0.20 K/[facility] LAB HEMETOLOGY METHOD 04/16/2025 7:07 PM EDT [facility] Immature Granulocytes Absolute 0.04(H) 0.00 - 0.03 K/[facility] LAB HEMETOLOGY METHOD 04/16/2025 7:07 PM EDT [facility] Blood Venous blood specimen / Unknown 04/16/2025 04/16/2025 6:35 PM EDT us Dayana Frost MD LAB BLOOD ORDERABLES Fi nal Result [facility] [address] [place] [address], [place] [phone] * Triglycerides (04/16/2025 12:00 AM EDT) Triglycerides 88 0 - 150 mg/dL LAB CHEMISTRY METHOD 04/16/2025 7:13 PM EDT [facility] Blood Venous blood specimen / Unknown 04/16/2025 04/16/2025 6:35 PM EDT us Dayana Frost MD LAB BLOOD ORDERABLES Fi nal Result [facility] [address] [place] [address], [place] [phone] * Phosphorus (04/16/2025 12:00 AM EDT) Phosphorus 3.6 2.5 - 4.5 mg/dL LAB CHEMISTRY METHOD 04/16/2025 7:13 PM EDT [facility] Blood Venous blood specimen / Unknown 04/16/2025 04/16/2025 6:35 PM EDT us Dayana Frost MD LAB BLOOD ORDERABLES Fi nal Result Performing Organization Address [facility]/ZIP Co de Phone Number [facility] [address] [place] [address], [place] [phone] * Magnesium (04/16/2025 12:00 AM EDT) Magnesium 2.2 1.9 - 2.6 mg/dL LAB CHEMISTRY METHOD 04/16/2025 7:13 PM EDT [facility] Blood Venous blood specimen / Unknown 04/16/2025 04/16/2025 6:35 PM EDT us Dayana Frost MD LAB BLOOD ORDERABLES Fi nal Result Performing Organization Address [facility]/ZIP Co de Phone Number [facility] [address] [place] [address], [place] [phone] * (ABNORMAL) Comprehensive metabolic panel (04/16/2025 12:00 AM EDT) Sodium 137 133 - 145 mmol/L LAB CHEMISTRY METHOD 04/16/2025 7:15 PM EDT [facility] Potassium 3.6 3.5 - 5.5 mmol/L LAB CHEMISTRY METHOD 04/16/2025 7:15 PM EDT [facility] Chloride 102 96 - 110 mmol/L LAB CHEMISTRY METHOD 04/16/2025 7:15 PM EDT [facility] CO2 22 21 - 32 mmol/L LAB CHEMISTRY METHOD 04/16/2025 7:15 PM EDT [facility] Anion Gap 13(H) 3 - 11 LAB CHEMISTRY METHOD 04/16/2025 7:15 PM EDT [facility] Glucose 49(L) 70 - 100 mg/dL LAB CHEMISTRY METHOD 04/16/2025 7:15 PM [facility] BUN 13 5 - 25 mg/dL LAB CHEMISTRY METHOD 04/16/2025 7:15 PM [facility] Creatinine 0.63 0.50 - 1.10 mg/dL LAB CHEMISTRY METHOD 04/16/2025 7:15 PM [facility] eGFR 121 >=60 mL/min/1. 73m2 LAB CHEMISTRY METHOD 04/16/2025 7:15 PM [facility] Comment:Calculation based on the Chronic Kidney Disease Epidemiology Collaboration (CKD-EPI) equation refit without adjustment for race. BUN/Creatinine Ratio 20.6 LAB CHEMISTRY METHOD 04/16/2025 7:15 PM [facility] Calcium 9.3 8.5 - 10.5 mg/dL LAB CHEMISTRY METHOD 04/16/2025 7:15 PM [facility] AST (SGOT) 20 10 - 42 unit/L LAB CHEMISTRY METHOD 04/16/2025 7:15 PM [facility] ALT (SGPT) 22 10 - 60 unit/L LAB CHEMISTRY METHOD 04/16/2025 7:15 PM [facility] Alkaline Phosphatase 151(H) 42 - 121 unit/L LAB CHEMISTRY METHOD 04/16/2025 7:15 PM [facility] Total Protein 8.4(H) 6.0 - 8.0 g/dL LAB CHEMISTRY METHOD 04/16/2025 7:15 PM [facility] Albumin 3.2 3.2 - 5.0 g/dL LAB CHEMISTRY METHOD 04/16/2025 7:15 PM [facility] Total Bilirubin 0.3 0.0 - 1.4 mg/dL LAB CHEMISTRY METHOD 04/16/2025 7:15 PM [facility] Blood Venous blood specimen / Unknown 04/16/2025 04/16/2025 6:35 PM EDT us Dayana Frost MD LAB BLOOD ORDERABLES Fi nal Result [facility] [address] [place] [address], documented in this encounter Visit Diagnoses Diagnosis [...] documented as of this encounter Care Teams Rcp Relationship Specialty Start Date End Date Cassius Alavrez MD [address] [place] [id number] PCP - General Internal Medicine 06/07/24 documented as of this encounter
--- OUTSIDE RECORDS SUMMARY | 2025-06-13 17:10 | XMS_ITS | Clinical Summary ---
Author Organization [facility] Address [address] [place] [address] Phone Care Team Providers Care Excellence Coach Name Role Phone Neli Andrews MD Primary [...] file Insurance MEDICARE PART A & B [facility] ONE CARE MEDICARE REPLACEMENT [facility] [facility] MEDICARE PART A & B [facility] ONE CARE MEDICARE REPLACEMENT GU[employer] URIBE [id number] MEDICARE PART A & B MEDICARE PART A & B MEDICARE PART A & B CARE MEDICARE REPLACEMENT GU[employer] URIBE [id number] MEDICARE PART A & B [facility] CARE MEDICARE REPLACEMENT MEDICARE PART A & B [facility] MEDICARE REPLACEMENT GU[place]HO URIBE [id number] MEDICARE PART A & [place] [id number] MEDICARE PART A & B [facility] ONE CARE MEDICARE REPLACEMENT Care Teams Excellence Coach Relationship Specialty Start Date End Date Neli Andrews MD [address] [place] [address] PCP - General Internal Medicine 06/16/17 Additional Source Comments The information contained in this document represents components of the legal health record. It is not the complete legal health record.[facility]
--- OUTSIDE RECORDS SUMMARY | 2025-06-13 17:10 | XMS_ITS | Encounter Summary ---
Author Organization [facility] [place] [address] Care Team Providers Care Repairer [employer]ge[employer] Name Role Phone Cassius Alvarez MD Primary Care Provider [phone] Encounter Details Date Type Department Care Team (Late st Contact Info) Description 06/11/2025 Lab Requisition [facility] - Main Lab [address] [place] [address] Dayana Frost MD [address] [place] [phone] Disease of digestive system, unspecified; Other diseases [...] for your loved ones. For example, children's service worker or elderly care for an older [...] 06/02/2025 2:59 PM Yaron Joseph RN * Are you blind or do [...] No 06/02/2025 2:59 PM Yaron Joseph RN documented as of this encounter Mental Status * Because of a physical, mental, or emotional condition, do you have serious difficulty concentrating, remembering, or making decisions? (5 years old or older) Answer Entry Date Author No 06/02/2025 2:59 PM Yaron Joseph RN documented in this encounter Plan of Treatment Upcoming Encounters Date Type Department Care Team (Late st Contact Info) Description 06/14/2025 7:45 AM EST Hospital Encounter [facility] Endoscopy [address] [place] [address] Angelika Verde MD 299 [facility] [address] [place] [address] Nj Hernandez CRNA [address] [address] Jordin Salvador MD [address] [place] [address] 07/17/2025 8:00 AM EST Appointment [facility] Nuclear Medicine [address] [place] [address] 07/18/2025 9:00 AM EST Office Visit Bariatric Surgery - [place] [address] [facility] [address] [place] [address] Dayana Frost MD [facility] [place] [address] documented as of this encounter Goals Goal Patient Goal Type Associated Problems Recent Progress Patient-Stated? Author Autogenerat ed Goal Care Plan Autogenerated Problem No Bouchra Collado RN Autogenerat ed Goal Care Plan Autogenerated Problem No Rosalva Bruce documented as of this encounter Procedures Procedure Name Priority Date/Time Associated Diagnosis Comments SST - GOLD Routine 06/11/2025 12:00 PM EST Disease of digestive system, unspecified Other diseases of stomach and duodenum CBC WITH AUTO DIFFERENTIAL Routine 06/11/2025 12:00 PM EST Disease of digestive system, unspecified Other diseases of stomach and duodenum CBC AND DIFFERENTIAL Routine 06/11/2025 12:00 PM EST Disease of digestive system, unspecified Other diseases of stomach and duodenum TRIGLYCERIDES Routine 06/11/2025 12:00 PM EST Disease of digestive system, unspecified Other diseases of stomach and duodenum PHOSPHORUS Routine 06/11/2025 12:00 PM EST Disease of digestive system, unspecified Other diseases of stomach and duodenum MAGNESIUM Routine 06/11/2025 12:00 PM EST Disease of digestive system, unspecified Other diseases of stomach and duodenum COMPREHENSIVE METABOLIC PANEL Routine 06/11/2025 12:00 PM EST Disease of digestive system, unspecified Other diseases of stomach and duodenum documented in this encounter Results * SST tube (06/11/2025 12:00 PM EST) Extra Tube Hold for add-ons. 06/11/2025 5:01 PM EST [facility] Comment:Auto resulted. Blood Venous blood specimen / Unknown 06/11/2025 12:00 PM EST 06/11/2025 4:00 PM EST us Dayana Frost MD LAB BLOOD ORDERABLES Fi nal Result [facility] [address] [place] [address], [place] [phone] * CBC auto differential (06/11/2025 12:00 PM EST) [facility] WBC 9.0 4.8 - 10.8 K/mcL LAB HEMETOLOGY METHOD 06/11/2025 4:20 PM EST [facility] RBC 4.20 3.80 - 4.80 M/mcL LAB HEMETOLOGY METHOD 06/11/2025 4:20 PM [facility] Hemoglobin 13.0 11.5 - 16.0 g/dL LAB HEMETOLOGY METHOD 06/11/2025 4:20 PM [facility] Hematocrit 39.1 35.0 - 47.0 % LAB HEMETOLOGY METHOD 06/11/2025 4:20 PM [facility] MCV 94.0 79.0 - 98.0 FL LAB HEMETOLOGY METHOD 06/11/2025 4:20 PM [facility] MCH 31.3 27.0 - 32.0 pcg LAB HEMETOLOGY METHOD 06/11/2025 4:20 PM [facility] MCHC 33.2 32.0 - 37.0 g/dL LAB HEMETOLOGY METHOD 06/11/2025 4:20 PM [facility] RDW 14.1 11.0 - 15.0 % LAB HEMETOLOGY METHOD 06/11/2025 4:20 PM [facility] Platelets 342 130 - 400 K/mcL LAB HEMETOLOGY METHOD 06/11/2025 4:20 PM [facility] MPV 10.2 7.0 - 11.0 FL LAB HEMETOLOGY METHOD 06/11/2025 4:20 PM [facility] NRBC 0.0 <1.0 % LAB HEMETOLOGY METHOD 06/11/2025 4:20 PM [facility] NRBC Absolute 0.00 <0.10 K/mcL LAB HEMETOLOGY METHOD 06/11/2025 4:20 PM [facility] Neutrophils Relative 62.9 % LAB HEMETOLOGY METHOD 06/11/2025 4:20 PM [facility] Lymphocytes Relative 30.8 % LAB HEMETOLOGY METHOD 06/11/2025 4:20 PM [facility] Monocytes Relative 3.9 % LAB HEMETOLOGY METHOD 06/11/2025 4:20 PM [facility] Eosinophils Relative 1.5 % LAB HEMETOLOGY METHOD 06/11/2025 4:20 PM [facility] Basophils Relative 0.6 % LAB HEMETOLOGY METHOD 06/11/2025 4:20 PM [facility] Immature Granulocytes Relative 0.3 % LAB HEMETOLOGY METHOD 06/11/2025 4:20 PM [facility] Neutrophils Absolute 5.69 1.50 - 7.00 K/mcL LAB HEMETOLOGY METHOD 06/11/2025 4:20 PM [facility] Lymphocytes Absolute 2.78 1.00 - 5.00 K/mcL LAB HEMETOLOGY METHOD 06/11/2025 4:20 PM [facility] Monocytes Absolute 0.35 0.20 - 1.00 K/mcL LAB HEMETOLOGY METHOD 06/11/2025 4:20 PM [facility] Eosinophils Absolute 0.14 0.00 - 0.50 K/mcL LAB HEMETOLOGY METHOD 06/11/2025 4:20 PM [facility] Basophils Absolute 0.05 0.00 - 0.20 K/mcL LAB HEMETOLOGY METHOD 06/11/2025 4:20 PM EST [facility] Immature Granulocytes Absolute 0.03 0.00 - 0.03 K/[facility] LAB HEMETOLOGY METHOD 06/11/2025 4:20 PM EST [facility] Blood Venous blood specimen / Unknown 06/11/2025 12:00 PM EST 06/11/2025 4:00 PM EST us Dayana Frost MD LAB BLOOD ORDERABLES Fi nal Result Performing Organization Address City/[facility]/ZIP Co de Phone Number [facility] [address] [place] [address], [place] [phone] * Triglycerides (06/11/2025 12:00 PM EST) Triglycerides 107 0 - 150 mg/dL 06/11/2025 4:21 PM EST [facility] Blood Venous blood specimen / Unknown 06/11/2025 12:00 PM EST 06/11/2025 4:00 PM EST us Dayana Frost MD LAB BLOOD ORDERABLES Fi nal Result Performing Organization Address City/[facility]/ZIP Co de Phone Number [facility] [address] [place] [address], [place] [phone] * Phosphorus (06/11/2025 12:00 PM EST) Phosphorus 3.9 2.5 - 4.5 mg/dL 06/11/2025 4:21 PM EST [facility] Blood Venous blood specimen / Unknown 06/11/2025 12:00 PM EST 06/11/2025 4:00 PM EST us Dayana Frost MD LAB BLOOD ORDERABLES Fi nal Result [facility] [address] [place] [address], [place] [phone] * Magnesium (06/11/2025 12:00 PM EST) [facility] Magnesium 2.0 1.9 - 2.6 mg/dL 06/11/2025 4:21 PM [facility] Blood Venous blood specimen / Unknown 06/11/2025 12:00 PM EST 06/11/2025 4:00 PM EST Dayana Frost MD LAB BLOOD ORDERABLES Fi nal Result [facility] [address] [place] [address], [place] [phone] * (ABNORMAL) Comprehensive metabolic panel (06/11/2025 12:00 PM EST) [facility] Sodium 139 133 - 145 mmol/L 06/11/2025 4:22 PM [facility] Potassium 4.3 3.5 - 5.5 mmol/L 06/11/2025 4:22 PM [facility] Chloride 102 96 - 110 mmol/L 06/11/2025 4:22 PM [facility] CO2 24 21 - 32 mmol/L 06/11/2025 4:22 PM [facility] Anion Gap 13(H) 3 - 11 06/11/2025 4:22 PM [facility] Glucose 66(L) 70 - 100 mg/dL 06/11/2025 4:22 PM [facility] BUN 19 5 - 25 mg/dL 06/11/2025 4:22 PM [facility] Creatinine 0.70 0.50 - 1.10 mg/dL 06/11/2025 4:22 PM [facility] eGFR 118 >=60 mL/min/1. 73m2 06/11/2025 4:22 PM [facility] Comment:Calculation based on the Chronic Kidney Disease Epidemiology Collaboration (CKD-EPI) equation refit without adjustment for race. BUN/Creatinine Ratio 27.1 06/11/2025 4:22 PM [facility] Calcium 9.2 8.5 - 10.5 mg/dL 06/11/2025 4:22 PM [facility] AST (SGOT) 15 10 - 42 unit/L 06/11/2025 4:22 PM [facility] ALT (SGPT) 18 10 - 60 unit/L 06/11/2025 4:22 PM [facility] Alkaline Phosphatase 132(H) 42 - 121 unit/L 06/11/2025 4:22 PM [facility] Total Protein 7.4 6.0 - 8.0 g/dL 06/11/2025 4:22 PM [facility] Albumin 4.3 3.2 - 5.0 g/dL 06/11/2025 4:22 PM [facility] Total Bilirubin 0.3 0.0 - 1.4 mg/dL 06/11/2025 4:22 PM [facility] Blood Venous blood specimen / Unknown 06/11/2025 12:00 PM EST 06/11/2025 4:00 PM EST us Dayana Frost MD LAB BLOOD ORDERABLES Fi nal Result [facility] [address] [place] [address], documented in this encounter Visit Diagnoses Diagnosis Disease of digestive system, unspecified Other diseases of stomach and duodenum documented in this encounter Additional Health Concerns Active Problems Noted Date Diagnosed Date Autogenerated Problem 04/11/2025 Autogenerated Problem 05/16/2025 documented as of this encounter Care Teams Repairer Switchgear Relationship Specialty Start Date End Date Cassius Alvarez MD [address] [place] [address] PCP - General Internal Medicine 06/07/24 documented as of this encounter
--- OUTSIDE RECORDS SUMMARY | 2025-06-13 17:10 | XMS_ITS | Clinical Summary ---
Author Organization 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 024 Active escitalopram (LEXAPRO) 20 mg tablet Take 1 tablet (20 mg total) by mouth at bedtime. Active mirtazapine (REMERON) 7.5 mg tablet Take 1 tablet (7.5 mg total) by mouth at bedtime. 021 Active ARIPiprazole (ABILIFY) 5 mg tablet Take 0.5 tablets (2.5 mg total) by mouth at bedtime. at bedtime. Active clonazePAM (KlonoPIN) 0.5 mg tablet Take 1 tablet (0.5 mg total) by mouth 1 (one) time each day. 024 Active famotidine (PEPCID) 40 mg tablet Take 1 tablet (40 mg total) by mouth at bedtime. 30 each 3 025 2025 Active metoprolol succinate (TOPROL-XL) 25 mg 24 hr tablet Take 1 tablet (25 mg total) by mouth at bedtime. Do not crush or chew. Active methocarbamoL (ROBAXIN) 500 mg tablet Take 1 tablet (500 mg total) by mouth 1 (one) time each day if needed for muscle spasms. Active norethindrone (RISSA,AYDE,HEA THER,MICRONOR) 0.35 mg tablet Take 1 tablet (0.35 mg total) by mouth 1 (one) time each day. 84 tablet 1 Active cholecalciferol (VITAMIN D-3) 25 mcg (1,000 unit) capsule Take 1 capsule (1,000 Units total) by mouth 1 (one) time each day. Active scopolamine (TRANSDERM-SCOP) 1 mg over 3 days patch 3 dayIndications:Na usea and vomiting in adult Apply 1 patch topically every 3rd (third) day. 1 patch Active glucose blood test strip Use as instructed 100 each 12 2025 Active cholestyramine (QUESTRAN) 4 gram powder Take 1 packet (4 g total) by mouth 2 (two) times a day with meals. Dissolve in 8 oz of liquid and drink before a meal 60 packet 3 025 2025 Active erythromycin base (E-MYCIN) 500 mg tablet Take 1 tablet (500 mg total) by mouth 4 (four) times a day. 120 tablet 025 2024 Active acetaminophen (TYLENOL) 500 mg tablet Take 1 tablet (500 mg total) by mouth every 6 (six) hours if needed for mild pain for up to 12 doses. 12 tablet Active diphenhydrAMINE (BENADRYL) 25 mg capsule Take 1 capsule (25 mg total) by mouth every 4 (four) hours if needed (nausea) for up to 30 doses. 30 capsule Active albuterol HFA (PROAIR HFA ; PROVENTIL HFA ; VENTOLIN HFA) 90 mcg/actuation inhaler Inhale 2 puffs by mouth every 4 (four) hours if needed for wheezing. 1 each 025 2024 Active metoclopramide (REGLAN) 10 mg tablet Take 1 tablet (10 mg total) by mouth every 6 (six) hours if needed (nausea) for up to 14 doses. 14 each Active Cholestyramine Light 4 gram packet if needed. Active pantoprazole (PROTONIX) 40 mg EC tablet Take 1 tablet (40 mg total) by mouth 1 (one) time each day before breakfast. Do not crush, chew, or split. 30 each 025 2024 Active albuterol HFA (PROAIR HFA ; PROVENTIL HFA ; VENTOLIN HFA) 90 mcg/actuation inhaler Inhale 2 Puffs into the lungs every 4 hours as needed for Cough or Wheezing for up to 30 days. 2024 Discontinued esomeprazole (NexIUM) [address] capsule TAKE 1 CAPSULE(40 MG) BY MOUTH 1 TIME EACH DAY BEFORE BREAKFAST. DO NOT OPEN CAPSULE 90 capsule 3 2024 Discontinued acetaminophen (TYLENOL) 500 mg tablet Take 2 tablets (1,000 mg total) by mouth every 8 (eight) hours. 30 tablet 2024 Discontinued metoclopramide (REGLAN) 5 mg tablet Take 2 tablets (10 mg total) by mouth 4 (four) times a day for 14 days. 112 each 2024 ondansetron ODT (ZOFRAN-ODT) 8 mg disintegrating tabletIndications :Nausea and vomiting, unspecified vomiting type,Diarrhea, unspecified type Dissolve 1 tablet (8 mg total) on top of the tongue every 8 (eight) hours if needed for nausea or vomiting for up to 20 days. 30 tablet 1 2024 prochlorperazine (COMPAZINE) 25 mg suppository Insert 1 suppository (25 mg total) into the rectum every 8 (eight) hours if needed for nausea or vomiting for up to 7 days. 21 each 2024 omeprazole (PriLOSEC) [address] capsule Take 1 capsule (20 mg total) by mouth 1 (one) time each day. Do not crush or chew. 30 each 2024 Discontinued predniSONE (DELTASONE) 20 mg tablet Take 3 tablets (60 mg total) by mouth 1 (one) time each day for 5 days. See instructions. 15 each 025 2024 Active Problems Problem Noted Date Diagnosed Date Right lower lobe consolidation (CMS/HCC V24) Hydronephrosis 05/02/2025 Palpitation 05/02/2025 Severe obesity (CMS/HCC V24, CMS/HCC V28) 2024 Liver abscess 04/24/2025 Wound infection after surgery 04/10/2025 Dehydration 03/08/2025 Anastomotic stricture of stomach 02/19/2025 Complication of bariatric procedure 02/17/2025 Nausea 01/20/2025 Nausea and vomiting, unspecified vomiting type 0 12/28/2024 Nausea and vomiting 12/21/2024 H/O gastric bypass 12/21/2024 Abdominal pain, generalized 12/15/2024 Abdominal pain, acute, epigastric 12/14/2024 Pain due to dental caries 11/13/2024 Right elbow pain 09/20/2024 Breakthrough bleeding on control pills Assessment & [...] not cause symptoms or require follow up. Dysuria 07/17/2024 Viral URI with cough 06/22/2024 Iron deficiency anemia due to chronic blood loss 03/21/2024 Dysmenorrhea 08/19/2023 Overview (04/26/2024): Last Assessment & Plan: As noted for menorrhagia. Ibuprofen or Tylenol prn. Retained foreign body 08/19/2023 Overview (05/02/2025): Last Assessment & Plan: I apologized to [...] that this will likely not cause any ocean transportation intermediary sequelae. They were both reasurred. Positive GBS test 07/31/2022 Overview (04/26/2024): Will treat in labor POTS (postural orthostatic tachycardia syndrome) 07/07/2022 Overview (04/26/2024): Cardiology c/s 06/02/22 - ECHO WNL, recommend hyrdration and compression stockings, f/u in Spring after delivery Elevated blood pressure reading 06/17/2022 Overview (04/26/2024): 06/17/2022 seen in [facility] ED and [facility] triage for SOB, neb treatment administered. In [...] Bladder spasms 04/22/2022 Overview (04/26/2024): Went to [facility] on 03/25- discharged stable, advised to [...] with this plan. All questions answered. Bulimia (CMS/[facility] V28) 06/04/2021 Overview (04/26/2024): Admitted inpatient 06/03-06/09 [...] cyst 11/25/2018 Overview (04/26/2024): 11/04/18 Presented to [facility] ED for abdominal pain. CT scan [...] her ferritin; follow-up in a few months [facility] Polysomnogram: Date 04/05/2019; Wt 247#; [...] without sleep related hypoventilation by 2019 polysomnogram. Chronic low back pain 09/12/2014 Overview (05/02/2025): Chronic low back pain Recurrent major depressive disorder ([facility] V24 ) 07/04/2014 Ankylosing spondylitis ([facility] V24, CMS/HCC V28 ) 03/31/2013 Overview (04/26/2024): Has been seen at [facility], rheumatology Dr. Valero as well as Dr. Murphy, Dr. Finch, now seeing Dr Brady at [facility]; also Dr Sanders 02/05/2022 under the care of [facility] in [place]. CBC, ESR, CRP, creatinine, AST and ALT ordered at that visit. Plan is to continue with Cimzia 400 mg SC monthly. OCD (obsessive compulsive disorder) 11/30/2012 Depression 10/21/2012 Overview (04/26/2024): History SI- IP Admits Nephrolithiasis 01/12/2012 Overview (04/26/2024): Noted December 2011 Last Assessment & Plan: [facility] 12/21 2 mm right ureteric stone ADHD (attention deficit hyperactivity disorder) 07/24/2011 Anxiety 07/24/2011 Asthma 07/24/2011 Migraine with aura 07/24/2011 Overview (04/26/2024): Dr Flowers Resolved Problems Problem Noted Date Diagnosed Date Resolved Date Generalized abdominal pain 03/20/2025 0 04/05/2025 Nausea & vomiting 03/17/2025 04/05/2025 Gastric anastomotic stricture 03/14/2025 04/05/2025 Encounters Date Type Department Care Team Description 06/11/2025 Lab Requisition [facility] - Main Lab [address] [place] [phone] Dayana Frost MD Disease of digestive system, unspecified; Other diseases of stomach and duodenum 06/07/2025 5:03 PM EST - 06/07/2025 9:28 PM [facility] Emergency [address] [place] [phone] Doris Capone MD Gastroparesis (Primary Dx); Epigastric pain; Nausea and vomiting, unspecified vomiting type Discharge Disposition: Home or Self Care 06/06/2025 6:00 AM EST - 06/06/2025 4:50 PM [facility] Emergency [address] [place] [phone] Radhika Pennington MD Nausea and vomiting, unspecified vomiting type (Primary Dx); Epigastric pain; Acute gastritis without hemorrhage, unspecified gastritis type Discharge Disposition: Home or Self Care 06/04/2025 1:00 PM EST Office Visit Bariatric Surgery - [address] [phone] Dayana Frost MD Nausea and vomiting, unspecified vomiting type (Primary Dx); S/P bariatric surgery; Gastroparesis 06/02/2025 11:53 AM EST - 06/02/2025 4:52 PM EST Emergency [facility] Emergency [address] [place] [address] Malinda Lamb MD Gastroparesis (Primary Dx); Nausea and vomiting, unspecified vomiting type; Gastroesophageal reflux disease with esophagitis without hemorrhage Discharge Disposition: Home or Self Care 05/30/2025 8:31 AM EST - 05/30/2025 2:16 PM EST [facility] Emergency [address] [place] [phone] Valentino Remy MD Acute chest pain (Primary Dx); Acute anxiety; Asthma with acute exacerbation, unspecified asthma severity, unspecified whether persistent; Acute gastritis without hemorrhage, unspecified gastritis type; Gastroparesis; Acute abdominal pain Discharge Disposition: Home or Self Care 05/28/2025 Lab Requisition [facility] - Main Lab [address] [place] [phone] Dayana Frost MD Disease of digestive system, unspecified; Other diseases of stomach and duodenum 05/28/2025 Telephone Bariatric Surgery - [address] [phone] Dayana Frost MD 05/27/2025 6:29 AM EST - 05/27/2025 8:51 AM EST [facility] Emergency [address] [place] [phone] Left upper quadrant abdominal pain (Primary Dx); Right flank pain Discharge Disposition: Home or Self Care 05/23/2025 Results Follow-Up Bariatric Surgery [address] [phone] Dayana Frost MD 05/21/2025 Lab Requisition [facility] Lab [address] [place] [phone] Dayana Frost MD Disease of digestive system, unspecified 05/18/2025 8:45 AM EST Office Visit Bariatric Surgery - [address] [phone] Dayana Frost MD Nausea and vomiting, unspecified vomiting type (Primary Dx); S/P bariatric surgery; Obesity (BMI 30.0-34.9); Food intolerance 05/17/2025 Telephone Bariatric Surgery - [address] [phone] Dayana Frost MD 05/16/2025 9:26 PM EST - 05/17/2025 3:52 AM EST Emergency [facility] Emergency [address] [place] [phone] Yuri Mir MD Kokkinos, Erika, MD Acute intractable headache, unspecified headache type (Primary Dx); Pain of right upper extremity; Nausea; Dizziness Discharge Disposition: Home or Self Care 05/14/2025 Lab Requisition [facility] Lab [address] [place] [phone] Dayana Frost MD Disease of digestive system, unspecified; Other diseases of stomach and duodenum 05/13/2025 Telephone Gastroenterology - [address] [place] [phone] Anny Vogel PA 05/10/2025 Results Follow-Up Bariatric Surgery - [address] [phone] Dayana Frost MD 05/10/2025 Results Follow-Up Bariatric Surgery - [address] [phone] Dayana Frost MD 05/09/2025 Lab Requisition [facility] Lab [address] [place] [phone] Dayana Frost MD Disease of digestive system, unspecified; Other diseases of stomach and duodenum 05/08/2025 9:40 AM EDT Anesthesia Event [facility] Pain Management [address] [place] [phone] Wiliam Ly MD Chang, Daniel J, MD 05/08/2025 9:29 AM EDT - 05/08/2025 11:59 PM EDT Hospital Encounter [facility] Pain Management [address] [place] [phone] Blanco Sanders DO Chang, Ling, TRE Sacroiliitis, not elsewhere classified (CMS/HCC V24); Radiculopathy, thoracic region Discharge Disposition: Home or Self Care 05/08/2025 8:53 AM EDT - 05/08/2025 11:59 PM EDT Hospital Encounter [facility] Ultrasound [address] [place] [phone] Hepatic abscess Discharge Disposition: Home or Self Care 05/07/2025 8:50 AM EDT Office Visit Gastroenterology [facility] [address] [facility] [address] [facility] [address] [place] [address] Anny Vogel PA Nausea and vomiting, unspecified vomiting type (Primary Dx); Diarrhea, unspecified type; Gastric stenosis; S/P bariatric surgery 05/04/2025 12:31 PM EDT - 05/05/2025 2:18 PM EDT Hospital Encounter [facility] Urology Unit [address] [place] [phone] Hair Underwood MD Flores, Carlos M, MD Santoyo-Pacheco, Omar D, MD Dyspnea, unspecified type (Primary Dx); Pneumonia due to infectious organism, unspecified laterality, unspecified part of lung Discharge Disposition: Home or Self Care 05/03/2025 Telephone Bariatric Surgery - [place] [address] [facility] [address] [place] [phone] Kelsea Cortés MA 05/03/2025 Lab Requisition [facility] - Main Lab [address] [place] [phone] Dayana Frost MD Disease of digestive system, unspecified; Other diseases of stomach and duodenum 05/01/2025 Results Follow-Up General Surgery - [place] [facility] [address] [place] [address] Dayana Frost MD 04/30/2025 Telephone Bariatric Surgery - [address] [phone] Dayana Frost MD 04/27/2025 Telephone Bariatric Surgery - [address] [phone] Dayana Frost MD 04/24/2025 4:42 PM EDT - 04/28/2025 10:20 AM EDT Hospital Encounter [facility] Medical Surgical Unit [address] [place] [address] Dayana Frost MD H/O gastric bypass (Primary Dx) Discharge Disposition: Home-Health Care [facility] 04/24/2025 Lab Requisition [facility] - Main Lab [address] [facility] [place] [phone] Dayana Frost MD Disease of digestive system, unspecified; Other diseases of stomach and duodenum 04/24/2025 Telephone Bariatric Surgery - [address] [phone] Dayana Frost MD 04/23/2025 11:45 AM EDT Office Visit Bariatric Surgery - [address] [address] Dayana Frost MD S/P bariatric surgery (Primary Dx); Obesity (BMI 30.0-34.9); Abdominal wall abscess; Liver abscess 04/22/2025 3:09 PM EDT - 04/22/2025 6:21 PM EDT Emergency [facility] Emergency [address] [place] [phone] Franko Paz MD Nausea and vomiting, unspecified vomiting type (Primary Dx); Nausea and vomiting in adult Discharge Disposition: Home or Self Care 04/21/2025 10:59 AM EDT - 04/21/2025 2:11 PM EDT [facility] Emergency [address] [place] [phone] Nausea and vomiting, unspecified vomiting type (Primary Dx); Deficient knowledge of opioid withdrawal Discharge Disposition: Home or Self Care 04/20/2025 12:28 PM EDT - 04/20/2025 6:41 PM EDT [facility] Emergency [address] [place] [phone] Madhav Rutherford MD Abscess, intra-abdominal, postoperative (CMS/HCC V24, CMS/HCC V28) (Primary Dx); Abdominal pain, unspecified abdominal location Discharge Disposition: Home or Self Care 04/20/2025 Results Follow-Up General Surgery - [place] [facility] [address] [place] [phone] Dayana Frost MD 04/20/2025 Telephone Bariatric Surgery - [place] [facility] [address] [place] [phone] Dayana Frost MD 04/16/2025 Lab Requisition [facility] - Main Lab [address] [place] [phone] Dayana Frost MD Other diseases of stomach and duodenum; Disease of digestive system, unspecified 04/16/2025 Results Follow-Up Gastroenterology - [address] [facility] [address] [place] [phone] Pietro Mayer MD 04/14/2025 7:34 AM EDT - 04/14/2025 11:50 AM EDT [facility] Emergency [address] [place] [phone] Claribel Castro MD PICC (peripherally inserted central catheter) flush (Primary Dx); Encounter for wound re-check Discharge Disposition: Home or Self Care 04/13/2025 6:21 PM EDT - 04/13/2025 6:41 PM EDT Emergency [facility] Emergency [address] [place] [address] Complication associated with peripherally inserted central catheter (PICC), initial encounter (Primary Dx) Discharge Disposition: Home or Self Care 04/12/2025 4:01 PM EDT Anesthesia Event [facility] Endoscopy [address] [place] [address] Luna Goncalves MD Korobkov, Vitaliy, DO 04/09/2025 7:50 PM EDT - 04/13/2025 3:28 PM EDT Hospital Encounter [facility] Medical Surgical Unit [address] [place] [phone] Mello Rome, Brant Macias MD [facility] Post-operative wound abscess (Primary Dx); Diarrhea, unspecified type; Bariatric surgery status; Epigastric pain; Wound infection after surgery; Diarrhea in adult patient Discharge Disposition: Home-Health Care [facility] 04/09/2025 George Bariatric Surgery [facility] [address] [phone] Dayana Frost MD 04/07/2025 8:35 PM EDT - 04/07/2025 11:08 PM EDT Emergency [facility] Emergency [address] [place] [phone] Non-healing surgical wound, initial encounter (Primary Dx) Discharge Disposition: Home or Self Care 03/23/2025 10:30 AM EDT - 03/23/2025 1:30 PM EDT Surgery [facility] Main OR [address] [place] [phone] Dayana Frost MD DAVINCMaria Victoria REVISION OF GASTROGASTRIC ANASTOMOSIS, UPPER GI ENDOSCOPY [58120 (CPT )] 03/23/2025 10:28 AM EDT Anesthesia Event [facility] Main OR [address] [place] [phone] Saliga, MD Aliyah Arora John E, MD 03/19/2025 11:25 AM EDT Anesthesia Event [facility] Endoscopy [address] [place] [phone] Kristie Linda MD 03/19/2025 Telephone Gastroenterology - [place] [facility] 175 [facility] [address] [place] [phone] Mildred Funes [place] 03/17/2025 5:11 AM EDT - 04/05/2025 1:27 PM EDT Hospital Encounter [facility] Medical Surgical Unit [address] [place] [phone] Doris Capone MD Mogul, Ashley, MD White, Cullen D, DO Ogrodnik, Aleksandra P, MD Generalized abdominal pain (Primary Dx); Nausea and vomiting, unspecified vomiting type; Gastric anastomotic stricture; Bariatric surgery status; Epigastric pain Discharge Disposition: Home-Health Care [facility] 03/15/2025 7:06 AM EDT - 03/15/2025 12:36 PM EDT Emergency [facility] Emergency [address] [place] [phone] Nausea and vomiting, unspecified vomiting type (Primary Dx); Abdominal pain, unspecified abdominal location Discharge Disposition: Home or Self Care 03/14/2025 Telephone Bariatric Surgery - [place] [address] [facility] [address] [place] [phone] Dayana Frost MD from Last 3 Months Immunizations Immunization Administration Dates Next Due DTP 04/25/1993,02/23/1993,1992 [id number] (Pentacel) 2mo to less than 5yo 02/23/1994,04/25/1993,02/23/1993,12/24 [...] ESOPHAGOGASTRODUODENOSCOPY BARIATRIC SURGERY 08/12/2019 laparoscopic sleeve gastrectomy (Ogty) CHOLECYSTECTOMY MYOMECTOMY 11/29/2023 endometrial biopsy and abdominal [...] of GG anastomosis, upper GI endoscopy (Ogrodnik) COLONOSCOPY UPPER GASTROINTESTINAL ENDOSCOPY HERNIA REPAIR GASTRIC BYPASS ADENOIDECTOMY Medical History Medical History Date Comments Anxiety Depression GERD (gastroesophageal reflux disease) Asthma Arthritis Thoracic radiculopathy Chronic kidney disease kidney st ones Dizziness Chronic pain disorder PONV (postoperative nausea and vomiting) Abdominal pain NAUSEA FROM BYPA SS Anemia Obesity Irritable bowel syndrome Low back pain Joint pain Liver abscess Family History Medical History Relation Name Comments Asthma Father Dad Depression Father Dad Hypertension Father Dad Cancer Father's Sister Breast' Cancer Maternal Grandfather Poppy prostat e Heart attack Maternal Grandfather Poppy Stroke Maternal Grandfather Poppy Arthritis Mother Mom Depression Mother Mom Hypertension Mother Mom Stroke Paternal Grandmother Memere Depression Sister Chayo Relation Name Status Comments Father Dad Alive Father's Sister Maternal Grandfather Poppy Mother Mom Alive Paternal Grandmother Memere Sister Chayo Alive Social History Tobacco Use Types Packs/Day Years Used Date Smoking Tobacco: Never Smokeless Tobacco: Never Tobacco Cessation:Counseling Given: Not Answered Alcohol Use Standard Drinks/Week Comments Yes 0 [...] your loved ones. For example, early childhood associate or elderly care for an older adult? [...] Mass Index 34.93 06/07/2025 5:03 PM EST Plan of Treatment Upcoming Encounters Date Type Department Care Team (Late st Contact Info) Description 06/14/2025 7:45 AM EST Hospital Encounter [facility] Endoscopy [address] [place] [phone] Angelika Verde MD [address] [facility] [address] [place] [address] Nj Hernandez CRNA [address] [address] Jordin Salvador MD [address] [place] [address] 07/17/2025 8:00 AM EST Appointment [facility] Nuclear Medicine [address] [place] [phone] 07/18/2025 9:00 AM EST Office Visit Bariatric Surgery - [place] 175 [facility] [address] [place] [phone] Dayana Frost MD [address] [place] [address] Health Maintenance Due Date Last Done Comments Pneumococcal Vaccine: Pediatrics (0 to 5 Years) and At-Risk Patients (6 to 49 Years) (1 of 2 - PCV) 10/16/2011 Medicare Annual Wellness Visit 06/20/2022 Depression Screening 07/12/2024 COVID-19 Vaccine (2024- season) 2025 05/28/2023, 04/18/2022, 10/09/2021, Additional history exists Social Influencers of Health Screening 05/04/2026 05/04/2025 Cervical Cancer Screening: HPV 09/29/2027 09/28/2022 Cholesterol [...] Care Plan Autogenerated Problem No Rosalva Bruce Procedures Procedure Name Priority Date/Time Associated Diagnosis [...] stomach and duodenum CBC WITH AUTO DIFFERENTIAL STAT 06/07/2025 5:19 PM EST LIPASE STAT 06/07/2025 5:19 PM EST MAGNESIUM STAT 06/07/2025 5:19 PM EST COMPREHENSIVE METABOLIC PANEL STAT 06/07/2025 5:19 PM EST CBC AND DIFFERENTIAL STAT 06/07/2025 5:19 PM EST POC , URINE DIAGNOSTIC STAT 06/07/2025 5:13 PM EST US ABDOMEN LIMITED STAT 06/06/2025 1: 49 PM EST CBC WITH AUTO DIFFERENTIAL STAT 06/06/2025 4:24 AM EST LIPASE STAT 06/06/2025 4:24 AM EST CBC AND DIFFERENTIAL STAT 06/06/2025 4:24 AM EST COMPREHENSIVE METABOLIC PANEL STAT 06/06/2025 4:24 AM EST HCG, SERUM, QUALITATIVE STAT 06/06/20 4:24 AM EST ECG ANNOTATED 06/04/2025 CBC WITH AUTO DIFFERENTIAL STAT 06/02/2025 12:28 PM EST MAGNESIUM STAT 06/02/2025 12:28 PM EST LIPASE STAT 06/02/2025 12:28 PM EST COMPREHENSIVE METABOLIC PANEL STAT 06/02/2025 12:28 PM EST CBC AND DIFFERENTIAL STAT 06/02/2025 12:28 PM EST URINALYSIS WITH REFLEX MICROSCOPIC STAT 06/02/2025 12:27 PM EST URINALYSIS WITH REFLEX MICROSCOPIC STAT 06/02/2025 12:27 PM EST ECG 12-LEAD STAT 06/02/2025 11:43 AM EST ECG ANNOTATED 05/31/2025 CT ABDOMEN PELVIS W CONTRAST STAT 05/30/2025 11:11 AM EST TROPONIN I HIGH SENSITIVITY Timed 05/30/2025 11:03 AM EST GTOS-SOX2-ILU, RSV, FLU A AND B QUALITATIVE RT-PCR, INTERNAL LAB STAT 05/30/2025 10:33 AM EST ECG 12-LEAD STAT 05/30/2025 10:30 AM EST URINALYSIS WITH REFLEX MICROSCOPIC STAT 05/30/2025 10:09 AM EST URINALYSIS WITH REFLEX MICROSCOPIC STAT 05/30/2025 10:09 AM EST XR CHEST 1 VIEW STAT 05/30/2025 9:51 AM EST POC , URINE DIAGNOSTIC STAT 05/30/2025 9:48 AM EST HCG, SERUM, QUALITATIVE STAT 05/30/20 9:18 AM EST CBC WITH AUTO DIFFERENTIAL STAT 05/30/2025 9:18 AM EST B-TYPE NATRIURETIC PEPTIDE STAT 05/30/2025 9:18 AM EST MAGNESIUM STAT 05/30/2025 9:18 AM EST LIPASE STAT 05/30/2025 9:18 AM EST COMPREHENSIVE METABOLIC PANEL STAT 05/30/2025 9:18 AM EST CBC AND DIFFERENTIAL STAT 05/30/2025 9:18 AM EST TROPONIN I HIGH SENSITIVITY Timed 05/30/2025 9:18 AM EST ECG 12-LEAD STAT 05/30/2025 8:21 AM EST SST - GOLD Routine 05/28/2025 3:00 PM [...] unspecified Other diseases of stomach and duodenum CT ABDOMEN PELVIS WO CONTRAST STAT 05/27/2025 7:22 AM EST [facility] URINE CULTURE TUBE STAT 05/27/20 6:57 AM EST URINALYSIS WITH REFLEX MICROSCOPIC AND CULTURE STAT 05/27/2025 6:57 AM EST CBC WITH AUTO DIFFERENTIAL STAT 05/27/2025 6:57 AM EST URINALYSIS WITH REFLEX MICROSCOPIC AND CULTURE STAT 05/27/2025 6:57 AM EST COMPREHENSIVE METABOLIC PANEL STAT 05/27/2025 6:57 AM EST CBC AND DIFFERENTIAL STAT 05/27/2025 6:57 AM EST CULTURE URINE STAT 05/27/2025 6:57 AM EST POC , URINE DIAGNOSTIC STAT 05/27/2025 6:44 AM EST SST - GOLD Routine 05/21/2025 12:00 AM [...] AM EST Disease of digestive system, unspecified CT HEAD WO CONTRAST STAT 05/17/2025 1 :23 AM EST POC , URINE DIAGNOSTIC STAT 05/17/2025 12:51 AM EST VAS US DUPLEX UPPER EXT VENOUS RIGHT STAT 05/16/2025 11:37 PM EST Pain of right upper extremity PROTHROMBIN TIME WITH INR STAT 05/16/2025 10:57 PM EST CBC WITH AUTO DIFFERENTIAL STAT 05/16/2025 8:32 PM EST MAGNESIUM STAT 05/16/2025 8:32 PM EST BASIC METABOLIC PANEL STAT 05/16/2025 8:32 PM EST CBC AND DIFFERENTIAL STAT 05/16/2025 8:32 PM EST [facility] URINE CULTURE TUBE STAT 05/16/20 25 8:30 PM EST URINALYSIS WITH REFLEX MICROSCOPIC AND CULTURE STAT 05/16/2025 8:30 PM EST URINALYSIS WITH REFLEX MICROSCOPIC AND CULTURE STAT 05/16/2025 8:30 PM EST ECG 12-LEAD STAT 05/16/2025 8:19 PM EST SST - GOLD Routine 05/14/2025 12:00 AM [...] unspecified Other diseases of stomach and duodenum SST - GOLD Routine 05/09/2025 10:00 AM [...] unspecified Other diseases of stomach and duodenum POC PREGANCY, URINE NO CHARGE SCREENING MANUALLY RESULTED Routine 05/08/2025 10:16 AM EDT US ABDOMEN LIMITED Routine 05/08/2025 9: 28 AM EDT Hepatic abscess ECG ANNOTATED 05/08/2025 POCT GLUCOSE BLOOD Routine 05/05/2025 1: 00 PM EDT POCT GLUCOSE BLOOD Routine 05/05/2025 6: 54 AM EDT CBC WITH AUTO DIFFERENTIAL Routine 05/05/2025 5:19 AM EDT CBC AND DIFFERENTIAL Routine 05/05/2025 5:19 AM EDT COMPREHENSIVE METABOLIC PANEL Routine 05/05/2025 5:19 AM EDT ECG 12-LEAD Routine 05/05/2025 1:35 AM EDT POCT GLUCOSE BLOOD Routine 05/05/2025 12:01 AM EDT RESPIRATORY VIRUS PANEL MOLECULAR STUDY STAT 05/04/2025 8:53 PM EDT ECG 12-LEAD STAT 05/04/2025 8:42 PM EDT TROPONIN I HIGH SENSITIVITY Routine 05/04/2025 8:17 PM EDT MRSA PCR STAT 05/04/2025 7:03 PM EDT CULTURE BLOOD STAT 05/04/2025 7:03 PM EDT LACTATE, WITH REFLEX STAT 05/04/2025 6:42 PM EDT CULTURE BLOOD STAT 05/04/2025 6:[address] ANGIO CHEST WO AND/OR W CONTRAST STAT 05/04/2025 4:42 PM EDT Dyspnea, unspecified type CT HEAD WO CONTRAST STAT 05/04/2025 4 :42 PM EDT PROCALCITONIN Add-On 05/04/2025 4:13 PM EDT LIPASE STAT Add-on 05/04/2025 4:13 PM EDT COMPREHENSIVE METABOLIC PANEL STAT 05/04/2025 4:13 PM EDT HCG, SERUM, QUALITATIVE STAT Add-on 05/04/20 2:22 PM EDT XR CHEST 1 VIEW STAT 05/04/2025 1:47 PM EDT CBC WITH AUTO DIFFERENTIAL STAT 05/04/2025 1:03 PM EDT CBC AND DIFFERENTIAL STAT 05/04/2025 1:03 PM EDT ECG 12-LEAD STAT 05/04/2025 12:42 PM EDT SST - GOLD Routine 05/03/2025 12:00 AM [...] unspecified Other diseases of stomach and duodenum CALCIUM, IONIZED Routine 04/28/2025 6:36 AM EDT PHOSPHORUS Routine 04/28/2025 6:36 AM EDT MAGNESIUM Routine 04/28/2025 6:36 AM EDT BASIC METABOLIC PANEL Routine 04/28/2025 6:36 AM EDT PHOSPHORUS Routine 04/27/2025 6:09 AM EDT MAGNESIUM Routine 04/27/2025 6:09 AM EDT BASIC METABOLIC PANEL Routine 04/27/2025 6:09 AM EDT VITAMIN B1 Routine 04/26/2025 12:59 PM EDT VITAMIN B6 Routine 04/26/2025 12:59 PM EDT XR UGI W SINGLE CONTRAST Routine 04/26/2025 12:30 PM EDT CALCIUM, IONIZED Routine 04/26/2025 6:33 AM EDT PHOSPHORUS Routine 04/26/2025 6:33 AM EDT MAGNESIUM Routine 04/26/2025 6:33 AM EDT BASIC METABOLIC PANEL Routine 04/26/2025 6:33 AM EDT POCT GLUCOSE BLOOD Routine 04/25/2025 7: 49 AM EDT MAGNESIUM Routine 04/25/2025 5:36 AM EDT BASIC METABOLIC PANEL Routine 04/25/2025 5:36 AM EDT POCT GLUCOSE BLOOD Routine 04/24/2025 8: 30 PM EDT SST - GOLD Routine 04/24/2025 3:00 PM [...] unspecified Other diseases of stomach and duodenum ECG ANNOTATED 04/24/2025 ECG ANNOTATED 04/23/2025 ECG 12-LEAD STAT 04/22/2025 4:18 PM EDT CBC WITH AUTO DIFFERENTIAL STAT 04/22/2025 3:52 PM EDT LIPASE STAT 04/22/2025 3:52 PM EDT COMPREHENSIVE METABOLIC PANEL STAT 04/22/2025 3:52 PM EDT CBC AND DIFFERENTIAL STAT 04/22/2025 3:52 PM EDT URINALYSIS WITH REFLEX MICROSCOPIC STAT 04/21/2025 11:36 AM EDT URINALYSIS WITH REFLEX MICROSCOPIC STAT 04/21/2025 11:36 AM EDT LACTATE, WITH REFLEX STAT 04/21/2025 11:36 AM EDT CBC WITH AUTO DIFFERENTIAL STAT 04/21/2025 11:36 AM EDT CBC AND DIFFERENTIAL STAT 04/21/2025 11:36 AM EDT BASIC METABOLIC PANEL STAT 04/21/2025 11:[address] ABDOMEN PELVIS W CONTRAST STAT 04/20/2025 3:15 PM EDT ECG 12-LEAD STAT 04/20/2025 2:01 PM EDT URINALYSIS WITH REFLEX MICROSCOPIC STAT 04/20/2025 1:59 PM EDT URINALYSIS WITH REFLEX MICROSCOPIC STAT 04/20/2025 1:59 PM EDT COMPREHENSIVE METABOLIC PANEL STAT 04/20/2025 1:35 PM EDT LACTATE, WITH REFLEX STAT 04/20/2025 1:35 PM EDT LIPASE STAT 04/20/2025 1:35 PM EDT MAGNESIUM STAT 04/20/2025 1:35 PM EDT CULTURE BLOOD STAT 04/20/2025 1:35 PM EDT HCG, SERUM, QUALITATIVE STAT 04/20/20 1:21 PM EDT CBC WITH AUTO DIFFERENTIAL STAT 04/20/2025 1:21 PM EDT ACTIVATED PARTIAL THROMBOPLASTIN TIME STAT 04/20/2025 1:21 PM EDT PROTHROMBIN TIME WITH INR STAT 04/20/2025 1:21 PM EDT CBC AND DIFFERENTIAL STAT 04/20/2025 1:21 PM EDT CULTURE BLOOD STAT 04/20/2025 1:21 PM EDT SST - GOLD Routine 04/16/2025 12:00 AM [...] IMMUNOGLOBULIN IGA Routine 04/11/2025 12:09 PM EDT TISSUE TRANSGLUTAMINASE, IGA Routine 04/11/2025 12:09 PM EDT VANCOMYCIN, [...] AM EDT HCG, SERUM, QUALITATIVE STAT Add-on 04/07/20 9:30 PM EDT CBC WITH AUTO DIFFERENTIAL [...] ENDOTRACHEAL(NO CHARGE) Routine 03/23/2025 11:32 AM EDT IA UNLISTED PROCEDURE LAPAROSCOPIC STOMACH 03/23/2025 10:28 AM [...] AM EDT POCT GLUCOSE BLOOD Routine 03/21/2025 5: 15 PM EDT POCT GLUCOSE BLOOD Routine 03/21/2025 [...] AM EDT [facility] URINE CULTURE TUBE STAT 03/17/20 25 5:29 AM EDT URINALYSIS WITH REFLEX MICROSCOPIC [...] AM EDT [facility] URINE CULTURE TUBE STAT 03/15/20 7:50 AM EDT URINALYSIS WITH REFLEX MICROSCOPIC [...] AND DIFFERENTIAL STAT 03/15/2025 7:43 AM EDT LIPID PANEL Routine 05/21/2023 HM HPV Routine 09/28/2022 HM HEPATITIS C SCREENING Routine 01/27/2022 HM HIV SCREENING Routine 01/27/2022 from Last 3 Months or Most Recently Relevant to Health Maintenance Results * SST tube (06/11/2025 12:00 PM EST) Only the most recent of10 resultswithin the time period is included. Pathologist [facility] Extra Tube Hold for add-ons. 06/11/2025 5:01 PM EST [facility] Comment:Auto resulted. Blood Venous blood specimen / Unknown 06/11/2025 12:00 PM EST 06/11/2025 4:00 PM EST us Dayana Frost MD LAB BLOOD ORDERABLES Fi nal Result [facility] [address] [place] [address], * CBC auto differential (06/11/2025 12:00 PM EST) Only the most recent of44 resultswithin the time period is included. WBC 9.0 4.8 - 10.8 K/[facility] LAB HEMETOLOGY METHOD 06/11/2025 4:20 PM EST [facility] RBC 4.20 3.80 - 4.80 M/mcL LAB HEMETOLOGY METHOD 06/11/2025 4:20 PM EST [facility] Hemoglobin 13.0 11.5 - 16.0 g/dL LAB HEMETOLOGY METHOD 06/11/2025 4:20 PM [facility] Hematocrit 39.1 35.0 - 47.0 % LAB HEMETOLOGY METHOD 06/11/2025 4:20 PM [facility] MCV 94.0 79.0 - 98.0 FL LAB HEMETOLOGY METHOD 06/11/2025 4:20 PM [facility] MCH 31.3 27.0 - 32.0 pcg LAB HEMETOLOGY METHOD 06/11/2025 4:20 PM [facility] MCHC 33.2 32.0 - 37.0 g/dL LAB HEMETOLOGY METHOD 06/11/2025 4:20 PM [facility] RDW 14.1 11.0 - 15.0 % LAB HEMETOLOGY METHOD 06/11/2025 4:20 PM [facility] Platelets 342 130 - 400 K/mcL LAB HEMETOLOGY METHOD 06/11/2025 4:20 PM [facility] MPV 10.2 7.0 - 11.0 FL LAB HEMETOLOGY METHOD 06/11/2025 4:20 PM [facility] NRBC 0.0 <1.0 % LAB HEMETOLOGY METHOD 06/11/2025 4:20 PM [facility] NRBC Absolute 0.00 <0.10 K/mcL LAB HEMETOLOGY METHOD 06/11/2025 4:20 PM [facility] Neutrophils Relative 62.9 % LAB HEMETOLOGY METHOD 06/11/2025 4:20 PM [facility] Lymphocytes Relative 30.8 % LAB HEMETOLOGY METHOD 06/11/2025 4:20 PM [facility] Monocytes Relative 3.9 % LAB HEMETOLOGY METHOD 06/11/2025 4:20 PM EST [facility] Eosinophils Relative 1.5 % LAB HEMETOLOGY METHOD 06/11/2025 4:20 PM [facility] Basophils Relative 0.6 % LAB HEMETOLOGY METHOD 06/11/2025 4:20 PM [facility] Immature Granulocytes Relative 0.3 % LAB HEMETOLOGY METHOD 06/11/2025 4:20 PM EST [facility] Neutrophils Absolute 5.69 1.50 - 7.00 K/mcL LAB HEMETOLOGY METHOD 06/11/2025 4:20 PM EST [facility] Lymphocytes Absolute 2.78 1.00 - 5.00 K/mcL LAB HEMETOLOGY METHOD 06/11/2025 4:20 PM [facility] Monocytes Absolute 0.35 0.20 - 1.00 K/mcL LAB HEMETOLOGY METHOD 06/11/2025 4:20 PM EST [facility] Eosinophils Absolute 0.14 0.00 - 0.50 K/mcL LAB HEMETOLOGY METHOD 06/11/2025 4:20 PM EST [facility] Basophils Absolute 0.05 0.00 - 0.20 K/mcL LAB HEMETOLOGY METHOD 06/11/2025 4:20 PM [facility] Immature Granulocytes Absolute 0.03 0.00 - 0.03 K/mcL LAB HEMETOLOGY METHOD 06/11/2025 4:20 PM EST [facility] Blood Venous blood specimen / Unknown 06/11/2025 12:00 PM EST 06/11/2025 4:00 PM EST us Dayana Frost MD LAB BLOOD ORDERABLES Fi nal Result [facility] [address] [place] [address], * Triglycerides (06/11/2025 12:00 PM EST) Only the most recent of12 resultswithin the time period is included. Triglycerides 107 0 - 150 mg/dL 06/11/2025 4:21 PM EST [facility] Blood Venous blood specimen / Unknown 06/11/2025 12:00 PM EST 06/11/2025 4:00 PM EST us Dayana Frost MD LAB BLOOD ORDERABLES Fi nal Result Performing Organization Address City/[facility]/ZIP Co de Phone Number [facility] [address] [place] [address], [place] [phone] * Phosphorus (06/11/2025 12:00 PM EST) Only the most recent of35 resultswithin the time period is included. Phosphorus 3.9 2.5 - 4.5 mg/dL 06/11/2025 4:21 PM EST [facility] Blood Venous blood specimen / Unknown 06/11/2025 12:00 PM EST 06/11/2025 4:00 PM EST us Dayana Frost MD LAB BLOOD ORDERABLES Fi nal Result Performing Organization Address City/[facility]/ZIP Co de Phone Number [facility] [address] [place] [address], [place] [phone] * Magnesium (06/11/2025 12:00 PM EST) Only the most recent of42 resultswithin the time period is included. Magnesium 2.0 1.9 - 2.6 mg/dL 06/11/2025 4:21 PM EST [facility] Blood Venous blood specimen / Unknown 06/11/2025 12:00 PM EST 06/11/2025 4:00 PM EST us Dayana Frost MD LAB BLOOD ORDERABLES Fi nal Result [facility] [address] [place] [address], * (ABNORMAL) Comprehensive metabolic panel (06/11/2025 12:00 PM EST) Only the most recent of21 resultswithin the time period is included. Sodium 139 133 - 145 mmol/L 06/11/2025 4:22 PM [facility] Potassium 4.3 3.5 - 5.5 mmol/L 06/11/2025 4:22 PM [facility] Chloride 102 96 - 110 mmol/L 06/11/2025 4:22 PM [facility] CO2 24 21 - 32 mmol/L 06/11/2025 4:22 PM [facility] Anion Gap 13(H) 3 - 11 06/11/2025 4:22 PM [facility] Glucose 66(L) 70 - 100 mg/dL 06/11/2025 4:22 PM [facility] BUN 19 5 - 25 mg/dL 06/11/2025 4:22 PM [facility] Creatinine 0.70 0.50 - 1.10 mg/dL 06/11/2025 4:22 PM [facility] eGFR 118 >=60 mL/min/1. 73m2 06/11/2025 4:22 PM [facility] Comment:Calculation based on the Chronic Kidney Disease Epidemiology Collaboration (CKD-EPI) equation refit without adjustment for race. BUN/Creatinine Ratio 27.1 06/11/2025 4:22 PM [facility] Calcium 9.2 8.5 - 10.5 mg/dL 06/11/2025 4:22 PM [facility] AST (SGOT) 15 10 - 42 unit/L 06/11/2025 4:22 PM [facility] ALT (SGPT) 18 10 - 60 unit/L 06/11/2025 4:22 PM [facility] Alkaline Phosphatase 132(H) 42 - 121 unit/L 06/11/2025 4:22 PM [facility] Total Protein 7.4 6.0 - 8.0 g/dL 06/11/2025 4:22 PM [facility] Albumin 4.3 3.2 - 5.0 g/dL 06/11/2025 4:22 PM [facility] Total Bilirubin 0.3 0.0 - 1.4 mg/dL 06/11/2025 4:22 PM [facility] Blood Venous blood specimen / Unknown 06/11/2025 12:00 PM EST 06/11/2025 4:00 PM EST Dayana Frost MD LAB BLOOD ORDERABLES Fi nal Result [facility] [address] [place] [address], [place] [phone] * Lipase (06/07/2025 5:19 PM EST) Only the most recent of9 resultswithin the time period is included. Lipase 24 12 - 53 unit/L 06/07/2025 6:21 PM [facility] Blood Venous blood specimen / Unknown Venipuncture / Unknown 06/07/2025 5:19 PM EST 06/07/2025 5:45 PM EST us Ruperto LINDO LAB BLOOD ORDERABLES Final Result Performing Organization Address City/[facility]/ZIP Co de Phone Number [facility] [address] [place] [address], [place] [phone] * POC , urine manually resulted (06/07/2025 5:13 PM EST) Only the most recent of6 resultswithin the time period is included. HCG, Ur POC Negative Negative POC hCG Int QC Pass? Yes Yes Urine Urine specimen obtained by clean catch procedure / Unknown 06/07/2025 5:13 PM EST us Ruperto LINDO POINT OF CARE TEST ENTER/ED IT ORDERABLES Final Result * US Abdomen Limited (06/06/2025 1:49 PM EST) Only the most recent of3 resultswithin the time period is included. Anatomical Region Laterality Modality Body Ultrasound 06/06/2025 3:2 1 PM EST Impressions 06/06/2025 3:24 PM EST Normal study. No significant change from the prior study. No recurrent hepatic collection. -------- FINAL REPORT -------- Dictated By: Therese Gutierrez Dictated Date: 06/06/2025 15:21 ET Assigned Physician: Therese Gutierrez Reviewed and Electronically Signed By: Therese Gutierrez Signed Date: 06/06/2025 15:24 ET Workstation ID: [id number] Transcribed By: Self Edit Transcribed Date: 06/06/2025 15:21 ET Narrative 06/06/2025 3:24 PM EST INDICATION: Right upper quadrant pain FINDINGS: Ultrasound of the right upper quadrant performed. Prior relevant studies: May 06, 2025 Pancreas: [Give by bowel gas. Liver: Normal in size, shape and echogenicity. No solid mass or intrahepatic ductal dilatation. Portal vein patent with hepatopedal flow. No recurrent left lobe collection. Gallbladder: Surgically absent. Common bile duct: 5 mm Right kidney: Survey images are within normal limits. Ascites: None Procedure Note Therese Gutierrez MD - 06/06/2025 INDICATION: Right upper quadrant pain FINDINGS: Ultrasound of the right upper quadrant performed. Prior relevant studies: May 06, 2025 Pancreas: [Give by bowel gas. Liver: Normal in size, shape and echogenicity. No solid mass orintrahepatic ductal dilatation. Portal vein patent with hepatopedal flow.No recurrent left lobe collection. Gallbladder: Surgically absent. Common bile duct: 5 mm Right kidney: Survey images are within normal limits. Ascites: None IMPRESSION: Normal study. No significant change from the prior study. No recurrenthepatic collection. -------- FINAL REPORT -------- Dictated By: Therese Gutierrez Dictated Date: 06/06/2025 15:21 ET Assigned Physician: Therese Gutierrez Reviewed and Electronically Signed By: Therese Gutierrez Signed Date: 06/06/2025 15:24 ET Workstation ID: [id number] Transcribed By: Self Edit Transcribed Date: 06/06/2025 15:21 ET Radhika Pennington MD IMG US PROCEDURES Final Res ult * hCG Qualitative (06/06/2025 4:24 AM EST) Only the most recent of5 resultswithin the time period is included. Pathologist [facility] hCG Qual Negative Negative 06/06/2025 5:12 AM EST [facility] Blood Venous blood specimen / Unknown Venipuncture / Unknown 06/06/2025 4:24 AM EST 06/06/2025 4:28 AM EST Daniel LINDO LAB BLOOD ORDERABLES Final Result [facility] [address] [place] [address], [place] [phone] * ECG-Annotated (06/04/2025) Only the most recent of5 resultswithin the time period is included. Provider Onbase ECG ORDERABLES Final Result * Urinalysis with reflex microscopic (06/02/2025 12:27 PM EST) Only the most recent of4 resultswithin the time period is included. [facility] Specific [place] Urine 1.017 1.003 - 1.030 LAB URINALYSIS - AUTOMATED METHOD 06/02/2025 12:46 PM EST [facility] pH, Urine 7.5 5.0 - 8.0 pH LAB URINALYSIS - AUTOMATED METHOD 06/02/2025 12:46 PM [facility] Leukocytes, Urine Negative Negative LAB URINALYSIS - AUTOMATED METHOD 06/02/2025 12:46 PM [facility] Nitrite, Urine Negative Negative LAB URINALYSIS - AUTOMATED METHOD 06/02/2025 12:46 PM [facility] Protein, Urine Negative <=Trace mg/dL LAB URINALYSIS - AUTOMATED METHOD 06/02/2025 12:46 PM [facility] Glucose, Urine Negative Negative mg/dL LAB URINALYSIS - AUTOMATED METHOD 06/02/2025 12:46 PM [facility] Ketones, Urine Negative Negative mg/dL LAB URINALYSIS - AUTOMATED METHOD 06/02/2025 12:46 PM [facility] Urobilinogen, Urine 0.2 0.2 - 1.0 mg/dL LAB URINALYSIS - AUTOMATED METHOD 06/02/2025 12:46 PM [facility] Bilirubin, Urine Negative Negative LAB URINALYSIS - AUTOMATED METHOD 06/02/2025 12:46 PM [facility] Blood, Urine Negative Negative LAB URINALYSIS - AUTOMATED METHOD 06/02/2025 12:46 PM [facility] Urine Urine specimen obtained by clean catch procedure / Unknown Non-blood Collection / Unknown 06/02/2025 12:27 PM EST 06/02/2025 12:35 PM EST us Malinda Lamb MD LAB URINE ORDERABLES Final Resul t [facility] [address] [place] [address], * ECG 12 lead (06/02/2025 11:43 AM EST) Only the most recent of11 resultswithin the time period is included. Ventricular Rate ECG 84 BPM GEMUSE Atrial Rate 84 BPM GEMUSE P-R Interval 126 ms GEMUSE QRS Duration 70 ms GEMUSE Q-T Interval 398 ms GEMUSE QTc 470 ms GEMUSE P Wave [place] 66 degrees GEMUSE R [place] -17 degrees GEMUSE T [place] 36 degrees GEMUSE ECG Interpretation Normal sinus rhythm Normal ECG When compared with ECG of 30-MAY-2025 10:30, No significant change was found Confirmed by FLORENCIO ERNANDEZ ([id number]) on 06/03/2025 5:38:59 PM GEMUSE 06/02/2025 11:4 3 AM EST 06/03/2025 5:38 PM EST us Meeta See DO ECG ORDERABLES Final Result GEMUSE * CT Abdomen Pelvis w Contrast (05/30/2025 11:11 AM EST) Only the most recent of4 resultswithin the time period is included. Anatomical Region Laterality Modality Body Computed Tomogra phy 05/30/2025 11:2 3 AM EST Impressions 05/30/2025 11:35 AM EST Similar postoperative changes without obstruction, free air, free fluid or focal inflammatory changes. Resolved hepatic left lobe collection compared to study from April 20, 2025. -------- FINAL REPORT -------- Dictated By: Therese Gutierrez Dictated Date: 05/30/2025 11:23 ET Assigned Physician: Therese Gutierrez Reviewed and Electronically Signed By: Therese Gutierrez Signed Date: 05/30/2025 11:35 ET Workstation ID: [id number] Transcribed By: Self Edit Transcribed Date: 05/30/2025 11:23 ET Narrative 05/30/2025 11:35 AM EST INDICATION: Abdominal pain TECHNIQUE: CT scan of the abdomen and pelvis obtained with a total of 90 cc of Isovue-370 administered intravenously without incident. Oral contrast was not administered. Scanner: [employer] prerevolution Solstice 128 slice VCT Dose reduction technique: ASIR (Adaptive statistical iterative reconstruction) and/or AEC (automated exposure control) Dose: total exam DLP 1238 mGY per cm COMPARISON: Compared to multiple prior studies most recent from May 27, 2025. Please note this is the patient's ninth of CT scan of the abdomen and pelvis since December 14, 2024. FINDINGS: Lung bases are clear. Bony structures are unremarkable for the patient's age. Resolved left hepatic lobe collection with compared to study from April 20, 2025. Spleen, pancreas, adrenal glands and kidneys are within normal limits. Status post cholecystectomy. Postoperative changes along the stomach suggestive of gastric sleeve formation. No significant distention of the stomach. Duodenum unremarkable. Jejunal loops demonstrate anastomosis within the left upper quadrant. No small bowel wall thickening or dilatation. Terminal ileum unremarkable. Normal appendix in the right lower quadrant. Colon is decompressed. No free air or free fluid. Urinary bladder decompressed. Uterus unremarkable. Possible cystic changes in the adnexa bilaterally which are otherwise symmetric in size. Abdominal aorta normal in course and caliber. No lymphadenopathy. Procedure Note Therese Gutierrez MD - 05/30/2025 INDICATION: Abdominal pain TECHNIQUE: CT scan of the abdomen and pelvis obtained with a total of 90cc of Isovue-370 administered intravenously without incident. Oralcontrast was not administered. Scanner: [employer] Solstice 128 slice VCT Dose reduction technique: ASIR (Adaptive statistical iterativereconstruction) and/or AEC (automated exposure control) Dose: total exam DLP 1238 mGY per cm COMPARISON: Compared to multiple prior studies most recent from 2024. Please note this is the patient's ninth of CT scan of the abdomen andpelvis since December 14, 2024. FINDINGS: Lung bases are clear. Bony structures are unremarkable for the patient's age. Resolved left hepatic lobe collection with compared to study from 2024. Spleen, pancreas, adrenal glands and kidneys are within normal limits. Status post cholecystectomy. 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 No significant distention of the stomach. Duodenumunremarkable. Jejunal loops demonstrate anastomosis within the left upperquadrant. No small bowel wall thickening or dilatation. Terminal ileumunremarkable. Normal appendix in the right lower quadrant. Colon isdecompressed. No free air or free fluid. Urinary bladder decompressed. Uterus unremarkable. Possible cystic changes in the adnexa bilaterallywhich are otherwise symmetric in size. Abdominal aorta normal in course and caliber. No lymphadenopathy. IMPRESSION: Similar postoperative changes without obstruction, free air, free fluid orfocal inflammatory changes. Resolved hepatic left lobe collection compared to study from April. -------- FINAL REPORT -------- Dictated By: Therese Gutierrez Dictated Date: 05/30/2025 11:23 ET Assigned Physician: Therese Gutierrez Reviewed and Electronically Signed By: Therese Gutierrez Signed Date: 05/30/2025 11:35 ET Workstation ID: [id number] Transcribed By: Self Edit Transcribed Date: 05/30/2025 11:23 ET us Valentino Remy MD IMG CT PROCEDURES Final Res ult * Troponin I high sensitivity (05/30/2025 11:03 AM EST) Only the most recent of3 resultswithin the time period is included. [facility] High Sensitivity Troponin I <3 <=34 ng/L 05/30/2025 1:57 PM [facility] [facility] Blood Venous blood specimen / Unknown Venipuncture / Unknown 05/30/2025 11:03 AM EST 05/30/2025 11:25 AM EST us Valentino Remy MD LAB BLOOD ORDERABLES Final Result [facility] [address] [place] [address], * [id number], RSV, Influenza A and B qualitative RT-PCR (05/30/2025 10:33 AM EST) [facility] Influenza A PCR Not Detected Not Detected LAB MICROBIOLOGY METHOD 05/30/2025 12:23 PM [facility] Influenza B PCR Not Detected Not Detected LAB MICROBIOLOGY METHOD 05/30/2025 12:23 PM [facility] RSV PCR Not Detected Not Detected LAB MICROBIOLOGY METHOD 05/30/2025 12:23 PM EST [facility] SARS COV-2 Not Detected Not Detected LAB MICROBIOLOGY METHOD 05/30/2025 12:23 PM EST [facility] Swab Nasopharyngeal structure / Unknown Non-blood Collection / Unknown 05/30/2025 10:33 AM EST 05/30/2025 11:26 AM EST us Valentino Remy MD LAB MICROBIOLOGY - GENERAL ORDERABLES Final Result [facility] [address] [place] [address], [place] [phone] * XR Chest 1 View (05/30/2025 9:51 AM EST) Only the most recent of2 resultswithin the time period is included. Anatomical Region Laterality Modality Body Radiographic Abbie ging 05/30/2025 10:0 6 AM EST Impressions 05/30/2025 10:08 AM EST No acute pulmonary disease. The cardiac silhouette remains at the upper limits of normal. The right arm PICC line remains well-positioned at the midportion of the superior vena cava. No change since 05/04/2025. Code 14759 -------- FINAL REPORT -------- Dictated By: Emile Vasquez Dictated Date: 05/30/2025 10:06 ET Assigned Physician: Emile Vasquez Reviewed and Electronically Signed By: Emile Vasquez Signed Date: 05/30/2025 10:08 ET Workstation ID: [id number] Transcribed By: Self Edit Transcribed Date: 05/30/2025 10:06 ET Narrative 05/30/2025 10:08 AM EST HISTORY: The patient is a 34-year-old female with chest pain. FINDINGS: Sitting AP portable radiograph of the chest again demonstrates a right arm PICC line in good position with the tip at the midportion of the superior vena cava, unchanged since the prior study performed 05/04/2025. The bony structures are of normal appearance. The cardiac silhouette remains at the upper limits of normal. The mediastinal contour is within normal limits. The lungs and costophrenic angles are clear. Procedure Note Emile Vasquez MD - 05/30/2025 HISTORY: The patient is a 34-year-old female with chest pain. FINDINGS: Sitting AP portable radiograph of the chest again demonstrates aright arm PICC line in good position with the tip at the midportion of thesuperior vena cava, unchanged since the prior study performed 05/04/2025.The bony structures are of normal appearance. The cardiac silhouetteremains at the upper limits of normal. The mediastinal contour is withinnormal limits. The lungs and costophrenic angles are clear. IMPRESSION: No acute pulmonary disease. The cardiac silhouette remains at the upperlimits of normal. The right arm PICC line remains well-positioned at themidportion of the superior vena cava. No change since 05/04/2025. Code 75319 -------- FINAL REPORT -------- Dictated By: Emile Vasquez Dictated Date: 05/30/2025 10:06 ET Assigned Physician: Emile Vasquez Reviewed and Electronically Signed By: Emile Vasquez Signed Date: 05/30/2025 10:08 ET Workstation ID: [id number] Transcribed By: Self Edit Transcribed Date: 05/30/2025 10:06 ET us Valentino Remy MD IMG XR PROCEDURES Final Res ult * B-type natriuretic peptide (05/30/2025 9:18 AM EST) BNP 48 <=100 pcg/mL 05/30/2025 10:28 AM EST [facility] Blood Venous blood specimen / Unknown Venipuncture / Unknown 05/30/2025 9:18 AM EST 05/30/2025 10:03 AM EST Narrative [facility] - 05/30/2025 10:28 AM EST Over the counter supplements containing high doses of biotin may interfere with this assay. If interference is suspected, patients shoud be retested after refraining from biotin supplements for 72 hours. us Valentino Remy MD LAB BLOOD ORDERABLES Final Result [facility] [address] [place] [address], [place] [phone] * CT Abdomen Pelvis wo Contrast (05/27/2025 7:22 AM EST) Only the most recent of2 resultswithin the time period is included. Anatomical Region Laterality Modality Body Computed Tomogra phy 05/27/2025 7:38 AM EST Impressions 05/27/2025 7:47 AM EST Gastric bypass surgical changes in left epigastric region. Small bowel surgical changes with air-fluid level at the surgical site in the left mid abdomen is noted. No proximal or distal small bowel obstruction or distention. This could be likely cause of patient's pain. No radiopaque urolith or hydroureteronephrosis. Bilateral ovarian cysts. -------- FINAL REPORT -------- Dictated By: Galindo Varghese Dictated Date: 05/27/2025 07:38 ET Assigned Physician: Galindo Varghese Reviewed and Electronically Signed By: Galindo Varghese Signed Date: 05/27/2025 07:47 ET Workstation ID: [id number] Transcribed By: Self Edit Transcribed Date: 05/27/2025 07:38 ET Narrative 05/27/2025 7:47 AM EST Examination: CT abdomen and pelvis with contrast. CLINICAL INDICATION: Afebrile, left flank pain that started yesterday. History of kidney stones. : CT abdomen and pelvis 04/20/2025. An ultrasound abdomen 05/08/2025. Graft technique: 5 mm in axial and reformatted 3 mm thin sagittal and coronal images of abdomen and pelvis were obtained without contrast. DLP 1020. FINDINGS: Lung bases: The lung bases are clear. The heart size is normal. Liver, ducts and gallbladder: The liver is normal size, contour and density. No focal lesion seen. The gallbladder has been surgically removed. Spleen: Unremarkable. Pancreas: Unremarkable. Adrenal glands: Unremarkable. Kidneys: Both kidneys are normal size, shape and position. No radiopaque renal calculi or hydronephrosis seen. Limited focal vascular structures: Abdominal aorta is normal caliber. No retroperitoneal lymph nodes or mass seen. GI track: The scattered stool and gas in colon without distention. Appendix is normal caliber. The small bowel loops are normal caliber. There is gastric reduction surgery in the left epigastric region. Also visualized is small bowel surgical changes with a small air-fluid level within the left mid abdomen but no proximal or distal distention or obstruction seen ABDOMEN: There is mild haziness seen throughout the mid abdominal wall likely low-grade or chronic inflammatory process or postsurgical changes. Pelvis: The uterus is anteverted and appears unremarkable. There are bilateral ovarian cysts measuring 2.6 seen on the left and 2.9 cm in the right. No free fluid seen. No abnormal pelvic or inguinal lymph nodes seen. Osseous structures: No aggressive lytic or sclerotic process. Procedure Note Galindo Varghese MD - 05/27/2025 Examination: CT abdomen and pelvis with contrast. CLINICAL INDICATION: Afebrile, left flank pain that started yesterday.History of kidney stones. : CT abdomen and pelvis 04/20/2025. An ultrasound abdomen 05/08/2025.Graft technique: 5 mm in axial and reformatted 3 mm thin sagittal andcoronal images of abdomen and pelvis were obtained without contrast. [id number]. FINDINGS: Lung bases: The lung bases are clear. The heart size is normal. Liver, ducts and gallbladder: The liver is normal size, contour anddensity. No focal lesion seen. The gallbladder has been surgicallyremoved. Spleen: Unremarkable. Pancreas: Unremarkable. Adrenal glands: Unremarkable. Kidneys: Both kidneys are normal size, shape and position. No radiopaquerenal calculi or hydronephrosis seen. Limited focal vascular structures: Abdominal aorta is normal caliber. Noretroperitoneal lymph nodes or mass seen. GI track: The scattered stool and gas in colon without distention.Appendix is normal caliber. The small bowel loops are normal caliber.There is gastric reduction surgery in the left epigastric region. Alsovisualized is small bowel surgical changes with a small air-fluid levelwithin the left mid abdomen but no proximal or distal distention orobstruction seen ABDOMEN: There is mild haziness seen throughout the mid abdominal walllikely low-grade or chronic inflammatory process or postsurgicalchanges. Pelvis: The uterus is anteverted and appears unremarkable. There arebilateral ovarian cysts measuring 2.6 seen on the left and 2.9 cm in theright. No free fluid seen. No abnormal pelvic or inguinal lymph nodesseen. Osseous structures: No aggressive lytic or sclerotic process. IMPRESSION: Gastric bypass surgical changes in left epigastric region. Small bowelsurgical changes with air-fluid level at the surgical site in the left midabdomen is noted. No proximal or distal small bowel obstruction ordistention. This could be likely cause of patient's pain. No radiopaque urolith or hydroureteronephrosis. Bilateral ovarian cysts. -------- FINAL REPORT -------- Dictated By: Galindo Varghese Dictated Date: 05/27/2025 07:38 ET Assigned Physician: Galindo Varghese Reviewed and Electronically Signed By: Galindo Varghese Signed Date: 05/27/2025 07:47 ET Workstation ID: [id number] Transcribed By: Self Edit Transcribed Date: 05/27/2025 07:38 ET Meri LINDO IMG CT PROCEDURES Nicole l Result * (ABNORMAL) Urinalysis with reflex microscopic and culture (05/27/2025 6:57 AM EST) Only the most recent of4 resultswithin the time period is included. Specific [place] Urine 1.017 1.003 - 1.030 LAB URINALYSIS - AUTOMATED METHOD 05/27/2025 8:08 AM [facility] pH, Urine 6.0 5.0 - 8.0 pH LAB URINALYSIS - AUTOMATED METHOD 05/27/2025 8:08 AM [facility] Leukocytes, Urine Small(A) Negative LAB URINALYSIS - AUTOMATED METHOD 05/27/2025 8:08 AM [facility] Nitrite, Urine Negative Negative LAB URINALYSIS - AUTOMATED METHOD 05/27/2025 8:08 AM [facility] Protein, Urine Negative <=Trace mg/dL LAB URINALYSIS - AUTOMATED METHOD 05/27/2025 8:08 AM [facility] Glucose, Urine Negative Negative mg/dL LAB URINALYSIS - AUTOMATED METHOD 05/27/2025 8:08 AM [facility] Ketones, Urine Negative Negative mg/dL LAB URINALYSIS - AUTOMATED METHOD 05/27/2025 8:08 AM [facility] Urobilinogen , Urine 0.2 0.2 - 1.0 mg/dL LAB URINALYSIS - AUTOMATED METHOD 05/27/2025 8:08 AM [facility] Bilirubin, Urine Negative Negative LAB URINALYSIS - AUTOMATED METHOD 05/27/2025 8:08 AM [facility] Blood, Urine Moderate(A) Negative LAB URINALYSIS - AUTOMATED METHOD 05/27/2025 8:08 AM [facility] RBC, Urine 5(H) 0 - 4 /HPF 05/27/2025 8:08 AM [facility] WBC, Urine 10(H) 0 - 4 /HPF 05/27/2025 8:08 AM [facility] Squamous Epithelial, Urine 50 0 - 60 /LPF 05/27/2025 8:08 AM [facility] Bacteria, Urine Few(A) Negative /HPF 05/27/2025 8:08 AM [facility] Urine Urine specimen obtained by clean catch procedure / Unknown Non-blood Collection / Unknown 05/27/2025 6:57 AM EST 05/27/2025 7:33 AM EST us Hair Underwood MD LAB URINE ORDERABLES Final Result [facility] [address] [place] [address], * [place] urine culture tube (05/27/2025 6:57 AM EST) Only the most recent of4 resultswithin the time period is included. Extra Tube Hold for add-ons. 05/27/2025 9:01 AM EST [facility] Comment:Auto resulted. Urine Urine specimen obtained by clean catch procedure / Unknown Non-blood Collection / Unknown 05/27/2025 6:57 AM EST 05/27/2025 7:33 AM EST Hair Underwood MD LAB URINE ORDERABLES Final Result Performing Organization Address City/[facility]/ZIP Co de Phone Number [facility] [address] [place] [address], [place] [phone] * Culture urine (05/27/2025 6:57 AM EST) Only the most recent of3 resultswithin the time period is included. Pathologist [facility] Culture, Urine 10,000-49,000 CFU/mL Mixed urogenital capri, no uropathogens present. Suggest repeat specimen if clinically indicated. 05/28/2025 12:25 PM EST [facility] Urine Urine specimen obtained by clean catch procedure / Unknown Non-blood Collection / Unknown 05/27/2025 6:57 AM EST 05/27/2025 8:08 AM EST Hair Underwood MD LAB MICROBIOLOGY - GENERAL ORDERABLES Final Result Performing Organization Address City/[facility]/ZIP Co de Phone Number [facility] [address] [place] [address], [place] [phone] * CT Head wo Contrast (05/17/2025 1:23 AM EST) Only the most recent of3 resultswithin the time period is included. Anatomical Region Laterality Modality Head and Neck Computed Tomogra phy 05/17/2025 3:05 AM EST Impressions 05/17/2025 3:05 AM EST Impression: 1. No acute intracranial abnormality. No acute intracranial hemorrhage. This document has been electronically signed by: Florencio Infante MD on 05/17/2025 03:05:27 Narrative 05/17/2025 3:05 AM EST INDICATION: Intractable headache CT head without contrast Comparison: CT/SR - CT HEAD WO CONTRAST - 05/04/25 16:35 EDT Findings: No intracranial mass, midline shift, hydrocephalus, or acute hemorrhage. Minimal mucosal thickening identified within the ethmoid air cells. The bilateral mastoid air cells appear clear. No acute skull fracture. Procedure Note Florencio Infante MD - 05/17/2025 INDICATION: Intractable headache CT head without contrast Comparison: CT/SR - CT HEAD WO CONTRAST - 05/04/25 16:35 EDT Findings: No intracranial mass, midline shift, hydrocephalus, or acute hemorrhage. Minimal mucosal thickening identified within the ethmoid air cells. The bilateral mastoid air cells appear clear. No acute skull fracture. IMPRESSION: Impression: 1. No acute intracranial abnormality. No acute intracranial hemorrhage. This document has been electronically signed by: Florencio Infante MD on 05/17/2025 03:05:27 Yuri Mir MD IMG CT PROCEDURES Final Result * Vascular US duplex upper extremity venous right (05/16/2025 11:37 PM EST) Anatomical Region Laterality Modality Vascular, Abdomen Ultrasound 05/17/2025 12:1 4 AM EST Impressions 05/17/2025 12:14 AM EST 1. Negative for right upper extremity deep vein thrombosis. This document has been electronically signed by: Florencio Infante MD on 05/17/2025 00:14:55 Narrative 05/17/2025 12:14 AM EST INDICATION: Pain at RUE PICC line, eval for DVT Venous duplex ultrasound right upper extremity Comparison: US/IA/SR - VAS US DUPLEX UP EXT VENOUS RT - 03/06/25 08:42 EDT Findings: Accessible deep venous segments are fully compressible with normal Doppler color flow and spectral tracings. Procedure Note Florencio Infante MD - 05/17/2025 INDICATION: Pain at RUE PICC line, eval for DVT Venous duplex ultrasound right upper extremity Comparison: US/IA/SR - VAS US DUPLEX UP EXT VENOUS RT - 03/06/25 08:42EDT Findings: Accessible deep venous segments are fully compressible with normalDoppler color flow and spectral tracings. IMPRESSION: 1. Negative for right upper extremity deep vein thrombosis. This document has been electronically signed by: Florencio Infante MD on 05/17/2025 00:14:55 Yuri Mir MD CV VASCULAR PROCEDURES Final Res ult * Protime-INR (05/16/2025 10:57 PM EST) Only the most recent of4 resultswithin the time period is included. [facility] Protime 12.5 10.6 - 13.9 sec LAB COAGULATION METHOD 05/17/2025 12:14 AM EST [facility] INR 1.0 LAB COAGULATION METHOD 05/17/2025 12:14 AM [facility] Blood Venous blood specimen / Unknown Venipuncture / Unknown 05/16/2025 10:57 PM EST 05/16/2025 11:53 PM EST Yuri Mir MD LAB BLOOD ORDERABLES Final Resul t [facility] [address] [place] [address], * Basic metabolic panel (05/16/2025 8:32 PM EST) Only the most recent of30 resultswithin the time period is included. [facility] Sodium 137 133 - 145 mmol/L LAB CHEMISTRY METHOD 05/16/2025 9:13 PM [facility] Potassium 3.9 3.5 - 5.5 mmol/L LAB CHEMISTRY METHOD 05/16/2025 9:13 PM [facility] Chloride 105 96 - 110 mmol/L LAB CHEMISTRY METHOD 05/16/2025 9:13 PM EST [facility] CO2 26 21 - 32 mmol/L LAB CHEMISTRY METHOD 05/16/2025 9:13 PM [facility] Anion Gap 6 3 - 11 LAB CHEMISTRY METHOD 05/16/2025 9:13 PM [facility] Glucose 87 70 - 100 mg/dL LAB CHEMISTRY METHOD 05/16/2025 9:13 PM [facility] BUN 12 5 - 25 mg/dL LAB CHEMISTRY METHOD 05/16/2025 9:13 PM [facility] Creatinine 0.68 0.50 - 1.10 mg/dL LAB CHEMISTRY METHOD 05/16/2025 9:13 PM [facility] eGFR 119 >=60 mL/min/1. 73m2 LAB CHEMISTRY METHOD 05/16/2025 9:13 PM [facility] Comment:Calculation based on the Chronic Kidney Disease Epidemiology Collaboration (CKD-EPI) equation refit without adjustment for race. BUN/Creatinine Ratio 17.6 LAB CHEMISTRY METHOD 05/16/2025 9:13 PM [facility] Calcium 9.1 8.5 - 10.5 mg/dL LAB CHEMISTRY METHOD 05/16/2025 9:13 PM [facility] Blood Venous blood specimen / Unknown Venipuncture / Unknown 05/16/2025 8:32 PM EST 05/16/2025 8:36 PM EST Shanti LINDO LAB BLOOD ORDERABLES Final Res ult [facility] [address] [place] [address], * POC , urine NO CHARGE screening manually resulted (05/08/2025 10:16 AM EDT) HCG, Ur POC Negative Negative POC hCG Int QC Pass? Yes Yes Urine Urine specimen obtained by clean catch procedure / Unknown 05/08/2025 10:16 AM EDT Blanco Sanders DO POINT OF CARE TEST ENTER/EDIT OR DERABLES Final Result * (ABNORMAL) POCT Glucose, blood (05/05/2025 1:00 PM EDT) Only the most recent of38 resultswithin the time period is included. [facility] Glucose POCT 101(H) 70 - 100 mg/dL 05/05/2025 1:01 PM EDT [facility] POCT Comment RN Notified 05/05/2025 1:01 PM EDT [facility] Blood Capillary blood specimen / Unknown 05/05/2025 1:00 PM EDT 05/05/2025 1:02 PM EDT Aurelio Alvarez MD LAB POINT OF C ARE TEST DOCKED DEVICE UNSOLICITED RESULTS Final Result [facility] [address] [place] [address], * Respiratory virus panel molecular study (05/04/2025 8:53 PM EDT) [facility] Adenovirus Detection by PCR Not Detected Not Detected LAB MICROBIOLOGY METHOD 05/04/2025 10:38 PM EDT [facility] Influenza A PCR Not Detected Not Detected LAB MICROBIOLOGY METHOD 05/04/2025 10:38 PM EDT [facility] Influenza B PCR Not Detected Not Detected LAB MICROBIOLOGY METHOD 05/04/2025 10:38 PM EDT [facility] Coronavirus 229E Not Detected Not Detected LAB MICROBIOLOGY METHOD 05/04/2025 10:38 PM EDT [facility] Coronavirus HKU1 Not Detected Not Detected LAB MICROBIOLOGY METHOD 05/04/2025 10:38 PM EDT [facility] Coronavirus OC43 Not Detected Not Detected LAB MICROBIOLOGY METHOD 05/04/2025 10:38 PM EDT [facility] Coronavirus NL63 Not Detected Not Detected LAB MICROBIOLOGY METHOD 05/04/2025 10:38 PM EDT [facility] Parainfluenza Virus 1 Not Detected Not Detected LAB MICROBIOLOGY METHOD 05/04/2025 10:38 PM EDT [facility] Parainfluenza Virus 2 Not Detected Not Detected LAB MICROBIOLOGY METHOD 05/04/2025 10:38 PM EDT [facility] Parainfluenza Virus 3 Not Detected Not Detected LAB MICROBIOLOGY METHOD 05/04/2025 10:38 PM EDT [facility] Parainfluenza Virus 4 Not Detected Not Detected LAB MICROBIOLOGY METHOD 05/04/2025 10:38 PM EDT [facility] RSV PCR Not Detected Not Detected LAB MICROBIOLOGY METHOD 05/04/2025 10:38 PM EDT [facility] Human Metapneumovirus A and B Not Detected Not Detected LAB MICROBIOLOGY METHOD 05/04/2025 10:38 PM EDT [facility] Rhinovirus/Entero virus Not Detected Not Detected LAB MICROBIOLOGY METHOD 05/04/2025 10:38 PM EDT [facility] Bordetella pertussis Not Detected Not Detected LAB MICROBIOLOGY METHOD 05/04/2025 10:38 PM EDT [facility] Bordetella parapertussis Not Detected Not Detected LAB MICROBIOLOGY METHOD 05/04/2025 10:38 PM EDT [facility] Mycoplasma pneumo by PCR Not Detected Not Detected LAB MICROBIOLOGY METHOD 05/04/2025 10:38 PM EDT [facility] Chlamydia pneumoniae Not Detected Not Detected LAB MICROBIOLOGY METHOD 05/04/2025 10:38 PM EDT [facility] SARS COV-2 Not Detected Not Detected LAB MICROBIOLOGY METHOD 05/04/2025 10:38 PM EDT [facility] Swab Both anterior nares / Unknown Non-blood Collection / Unknown 05/04/2025 8:53 PM EDT 05/04/2025 9:24 PM EDT [facility] - 05/04/2025 10:38 PM EDT Testing was performed using the sourceasy Respiratory Pathogen PCR Assay. All results must be correlated with the clinical findings. Results should not be used as the sole basis for diagnosis. False Negative results may occur from the presence of sequence variants in the region targeted by the assay or the presence of inhibitors. Results may be affected by concurrent antiviral/antimicrobial therapy or levels of organisms that are below the limit of detection. Vin LINDO LAB MICROBIOLOGY - GENERAL ORDE RABLES Final Result Performing Organization Address City/[facility]/ZIP Co de Phone Number [facility] [address] [place] [address], [place] [phone] * MRSA molecular study (05/04/2025 7:03 PM EDT) [facility] MRSA Screen PCR Not Detected Not Detected LAB MICROBIOLOGY METHOD 05/04/2025 8:57 PM EDT [facility] Swab Both anterior nares / Unknown Non-blood Collection / Unknown 05/04/2025 7:03 PM EDT 05/04/2025 7:27 PM EDT Hair Underwood MD LAB MICROBIOLOGY - GENERAL ORDERABLES Final Result Performing Organization Address [facility]/ZIP Co de Phone Number [facility] [address] [place] [address], [place] [phone] * Blood Culture, Peripheral #1 (05/04/2025 7:03 PM EDT) Only the most recent of6 resultswithin the time period is included. Culture, Blood No growth at 5 days LAB MICROBIOLOGY METHOD 05/09/2025 8:01 PM EDT [facility] Blood Venous blood specimen / Unknown Venipuncture / Unknown 05/04/2025 7:03 PM EDT 05/04/2025 7:27 PM EDT Hair Underwood MD LAB MICROBIOLOGY - GENERAL ORDERABLES Final Result Performing Organization Address City/[facility]/ZIP Co de Phone Number [facility] [address] [place] [address], [place] [phone] * Lactate, with reflex (05/04/2025 6:42 PM EDT) Only the most recent of4 resultswithin the time period is included. LACTIC ACID 0.6 0.4 - 2.0 mmol/L LAB CHEMISTRY METHOD 05/04/2025 7:24 PM EDT [facility] Blood Venous blood specimen / Unknown Venipuncture / Unknown 05/04/2025 6:42 PM EDT 05/04/2025 6:59 PM EDT Hair Underwood MD LAB BLOOD ORDERABLES Final Result Performing Organization Address [facility] Co de Phone Number [facility] [address] [place] [address], [place] [phone] * CT Angio Chest wo and/or w Contrast (05/04/2025 4:42 PM EDT) Anatomical Region Laterality Modality Body Computed Tomogra phy 05/04/2025 5:00 PM EDT Impressions 05/04/2025 5:05 PM EDT 1. No pulmonary embolism. 2. Patchy nodular groundglass opacities in the right lung compatible with an acute infectious or inflammatory process. 3. Postsurgical changes of the stomach with some adjacent stranding. -------- FINAL REPORT -------- Dictated By: Andrea Brady Dictated Date: 05/04/2025 17:00 ET Assigned Physician: Andrea Brady Reviewed and Electronically Signed By: Andrea Brady Signed Date: 05/04/2025 17:05 ET Workstation ID: [id number] Transcribed By: Self Edit Transcribed Date: 05/04/2025 17:00 ET Narrative 05/04/2025 5:05 PM EDT PROCEDURE: CT ANGIO CHEST INDICATION: dyspnea COMPARISON: None. TECHNIQUE: CT pulmonary angiogram performed following uneventful IV administration of ISOVUE contrast material with bolus timing technique from the thoracic inlet through the lung bases. 3-D multiplanar reformations were obtained by the technologist on an independent workstation. GE Lightspeed VCT dose reduction utilizing iterative reconstruction. Total exam DLP 754 (mGy-cm) FINDINGS: There is no CT evidence of acute pulmonary embolism to the lobar level. Evaluation of the segmental and subsegmental pulmonary arteries is limited due to motion artifact and small peripheral pulmonary emboli cannot be excluded. The heart is within normal limits in size. There is no pericardial effusion. The thoracic aorta is normal in caliber. There is no evidence for mediastinal or hilar lymphadenopathy. Patchy nodular groundglass opacities in the right lung. There are no pleural effusions. Postsurgical changes of the stomach with some adjacent stranding. The included skeletal structures are within normal limits for technique. Procedure Note Andrea Brady MD - 05/04/2025 PROCEDURE: CT ANGIO CHEST INDICATION: dyspnea COMPARISON: None. TECHNIQUE: CT pulmonary angiogram performed following uneventful IVadministration of ISOVUE contrast material with bolus timing techniquefrom the thoracic inlet through the lung bases. 3-D multiplanar reformations were obtained by the technologist on anindependent workstation. GE Lightspeed VCT dose reduction utilizing iterative reconstruction. Total exam DLP 754 (mGy-cm) FINDINGS: There is no CT evidence of acute pulmonary embolism to the lobar level.Evaluation of the segmental and subsegmental pulmonary arteries is limiteddue to motion artifact and small peripheral pulmonary emboli cannot beexcluded. The heart is within normal limits in size. There is no pericardialeffusion. The thoracic aorta is normal in caliber. There is no evidence for mediastinal or hilar lymphadenopathy. Patchy nodular groundglass opacities in the right lung. There are no pleural effusions. Postsurgical changes of the stomach with some adjacent stranding. The included skeletal structures are within normal limits for technique. IMPRESSION: 1. No pulmonary embolism. 2. Patchy nodular groundglass opacities in the right lung compatible withan acute infectious or inflammatory process. 3. Postsurgical changes of the stomach with some adjacent stranding. -------- FINAL REPORT -------- Dictated By: Andrea Brady Dictated Date: 05/04/2025 17:00 ET Assigned Physician: Andrea Brady Reviewed and Electronically Signed By: Andrea Brady Signed Date: 05/04/2025 17:05 ET Workstation ID: [id number] Transcribed By: Self Edit Transcribed Date: 05/04/2025 17:00 ET us Hair Underwood MD IMG CT PROCEDURES Final Res ult * Procalcitonin (05/04/2025 4:13 PM EDT) Procalcitonin <0.02 <=0.16 ng/mL LAB CHEMISTRY METHOD 05/05/2025 9:59 AM EDT [facility] Blood Venous blood specimen / Unknown Venipuncture / Unknown 05/04/2025 4:13 PM EDT 05/04/2025 4:15 PM EDT Narrative [facility] - 05/05/2025 9:59 AM EDT Procalcitonin > 2.00 ng/ml: Procalcitonin Levels above 2.00 ng/ml, on the first day of ICU admission represent a high risk for progression to severe sepsis and/or septic shock. Procalcitonin < 0.50 ng/ml: Procalcitonin levels below 0.50 ng/ml on the first day of ICU admission represent a low risk for progression to severe sepsis and/or septic shock. Concentrations <0.5 ng/mL do not exclude an infection, on account of local ized infections (without systemic signs) which can be associated with such low concentrations, or a systemic infection in its initial stages (<6 hours). Furthermore, increased procalcitonin can occur without infection. PCT concentrations between 0.5 and 2.0 ng/mL should be interpreted taking into account the patient's history. It is recommended to retest PCT within 6-24 hours if any concentrations <2.0 ng/mL are obtained. us Vin LINDO LAB BLOOD ORDERABLES Final Resu lt [facility] [address] [place] [address], [place] [phone] * Calcium, ionized (if available) (04/28/2025 6:36 AM EDT) Only the most recent of11 resultswithin the time period is included. [facility] Calcium Ionized 4.78 4.50 - 5.30 mg/dL 04/28/2025 7:17 AM EDT [facility] Blood Venous blood specimen / Unknown Venipuncture / Unknown 04/28/2025 6:36 AM EDT 04/28/2025 7:09 AM EDT Awilda LINDO LAB BLOOD ORDERABLES Final Res ult Performing Organization Address City/[facility]/ZIP Co de Phone Number [facility] [address] [place] [address], * Vitamin B1 (04/26/2025 12:59 PM EDT) [facility] Vitamin B1 Whole Blood 95 38 - 122 ug/L 05/01/2025 6:52 AM EDT [facility] Comment: This test was developed and the performance characteristics determined by [facility]. It has not been cleared or approved by the FDA. The laboratory is regulated under CLIA as qualified to perform high-complexity testing. This test is used for patient testing purposes. It should not be regarded as investigational or for research. Test performed at [facility], [address] , [place] [address] Erin Menezes MD, PhD - [employer] Blood Venous blood specimen / Unknown Venipuncture / Unknown 04/26/2025 12:59 PM EDT 04/26/2025 1:14 PM EDT Mela LINDO LAB BLOOD ORDERABLES Final Res ult [facility] [address] [place] [address] * Vitamin B6 (04/26/2025 12:59 PM EDT) Vitamin B6 (Pyridoxine) Level 18 5 - 50 ug/L 05/01/2025 12:[address] [facility] Comment: This test was developed and the performance characteristics determined by [facility]. It has not been cleared or approved by the FDA. The laboratory is regulated under CLIA as qualified to perform high-complexity testing. This test is used for patient testing purposes. It should not be regarded as investigational or for research. Test performed at [facility], [address], [place] [address] Erin Menezes MD, PhD - [employer] Blood Venous blood specimen / Unknown Venipuncture / Unknown 04/26/2025 12:59 PM EDT 04/26/2025 1:13 PM EDT Mela LINDO LAB BLOOD ORDERABLES Final Res ult [facility] [address] [place] [address] * XR UGI w Single Contrast (04/26/2025 12:30 PM EDT) Only the most recent of2 resultswithin the time period is included. Anatomical Region Laterality Modality Body Radiographic Abbie ging 04/26/2025 3:13 PM EDT Impressions 04/26/2025 4:12 PM EDT 1. Widely patent gastric-gastric anastomosis. 2. Large amount of food debris within the stomach indicating delayed gastric emptying/gastroparesis. 3. Inadequate distention of the first segment of duodenum despite additional oral contrast and manipulation of patient position which may be secondary to delayed gastric emptying. Suspicious for pyloric stricture. 4. Gastroesophageal reflux. -------- FINAL REPORT -------- Dictated By: Willow Oliver Dictated Date: 04/26/2025 15:13 ET Assigned Physician: Therese Gutierrez Reviewed and Electronically Signed By: Therese Gutierrez Signed Date: 04/26/2025 16:12 ET Workstation ID: [id number] Transcribed By: Self Edit Transcribed Date: 04/26/2025 15:27 ET Resident/PA/DOCUMENT COORDINATOR: Willow Oliver Grant 04/26/2025 4:12 PM EDT FINDINGS: Single contrast UGI performed. COMPARISON: Upper GI imaging April 10, 2025 HISTORY: Patient is a 34-year-old female with history of vomiting. 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 Liver abscess. Water-soluble Isovue-300 was given to the patient under fluoroscopic control. Esophagus: Normal distensibility and motility. There is no evidence of obstruction or hiatal hernia. Stomach: Gastric anatomy is consistent with history of gastric bypass with subsequent reversal. There is free flow of contrast past the gastric gastric anastomosis which is similar in appearance and patency when compared to prior imaging from April 10, 2025. There is a large amount of debris noted within the stomach obscuring mucosa. There is inadequate distention of the first segment of duodenum despite additional oral contrast and manipulation of patient position which may be secondary to delayed gastric emptying, though stricture here cannot be excluded. Visualization of remaining proximal small bowel is within normal limits. Gastroesophageal reflux: Moderate amounts of spontaneous gastroesophageal reflux visualized. DAP: 27.89 Gycm^2 Procedure Note Therese Gutierrez MD - 04/26/2025 FINDINGS: Single contrast UGI performed. COMPARISON: Upper GI imaging April 10, 2025 HISTORY: Patient is a 34-year-old female with history of vomiting. Historyof gastric gastric anastomosis with stenosis and subsequent dilatation.Liver abscess. Water-soluble Isovue-300 was given to the patient under fluoroscopiccontrol. Esophagus: Normal distensibility and motility. There is no evidence ofobstruction or hiatal hernia. Stomach: Gastric anatomy is consistent with history of gastric bypass withsubsequent reversal. There is free flow of contrast past the gastricgastric anastomosis which is similar in appearance and patency whencompared to prior imaging from April 10, 2025. There is a large amountof debris noted within the stomach obscuring mucosa. There is inadequatedistention of the first segment of duodenum despite additional oralcontrast and manipulation of patient position which may be secondary todelayed gastric emptying, though stricture here cannot be excluded.Visualization of remaining proximal small bowel is within normal limits. Gastroesophageal reflux: Moderate amounts of spontaneous gastroesophagealreflux visualized. DAP: 27.89 Gycm^2 IMPRESSION: 1. Widely patent gastric-gastric anastomosis. 2. Large amount of food debris within the stomach indicating delayedgastric emptying/gastroparesis. 3. Inadequate distention of the first segment of duodenum despiteadditional oral contrast and manipulation of patient position which may besecondary to delayed gastric emptying. Suspicious for pyloric stricture. 4. Gastroesophageal reflux. -------- FINAL REPORT -------- Dictated By: Willow Oliver Dictated Date: 04/26/2025 15:13 ET Assigned Physician: Therese Gutierrez Reviewed and Electronically Signed By: Therese Gutierrez Signed Date: 04/26/2025 16:12 ET Workstation ID: [id number] Transcribed By: Self Edit Transcribed Date: 04/26/2025 15:27 ET Resident/PA/DOCUMENT COORDINATOR: Willow Oliver Mela LINDO IMG FLUOROSCOPY PROCEDURES Fin al Result * APTT (04/20/2025 1:21 PM EDT) [facility] aPTT 37.0 24.1 - 39.3 sec LAB COAGULATION METHOD 04/20/2025 2:07 PM EDT [facility] Blood Venous blood specimen / Unknown Venipuncture / Unknown 04/20/2025 1:21 PM EDT 04/20/2025 1:47 PM EDT Madhav Rutherford MD LAB BLOOD ORDERABLES Final Resul t [facility] [address] [place] [address], * Gastrointestinal pathogens molecular study (04/14/2025 12:00 AM EDT) [facility] Campylobacter Detection by PCR Not Detected Not Detected LAB MICROBIOLOGY METHOD 11:49 AM EDT [facility] Plesiomonas shigelloides Detection by PCR Not Detected Not Detected LAB MICROBIOLOGY METHOD 11:49 AM EDT [facility] Salmonella Detection by PCR Not Detected Not Detected LAB MICROBIOLOGY METHOD 5 11:49 AM EDT [facility] Vibrio Detection by PCR Not Detected Not Detected LAB MICROBIOLOGY METHOD 5 11:49 AM EDT [facility] Vibrio cholerae Detection by PCR Not Detected Not Detected [facility] Yersinia enterocolitica Detection by PCR Not Detected Not Detected LAB MICROBIOLOGY METHOD 5 11:49 AM EDT [facility] Enteroaggregative E coli EAEC Detection by PCR Not Detected Not Detected [facility] Enteropathogenic E coli EPEC Detection Not Detected Not Detected LAB MICROBIOLOGY METHOD 5 11:[address] [facility] Enterotoxigenic E coli ETEC LTST Detection Not Detected Not Detected LAB [facility]BIOLOGY [facility] 5 11:[facility] Shiga-like toxin producing E coli STEC STX1 STX2 Det Not Detected Not Detected LAB MICROBIOLOGY [facility] 5 11:[facility] Shigella Enteroinvasive E coli EIEC Detection Not Detected Not Detected LAB MICROBIOLOGY METHOD 5 11:[address] [facility] Cryptosporidium Detection by PCR Not Detected Not Detected LAB MICROBIOLOGY [facility] 5 11:49 [facility] Cyclospora cayetanensis Detection by PCR Not Detected Not Detected LAB MICROBIOLOGY [facility] 5 11:[facility] Entamoeba histolytica Detection by PCR Not Detected Not Detected LAB MICROBIOLOGY [facility] 5 11:[facility] Giardia lamblia Detection by PCR Not Detected Not Detected LAB MICROBIOLOGY [facility] 5 11:49 [facility] Adenovirus F 40 41 Detection by PCR Not Detected Not Detected LAB MICROBIOLOGY METHOD 11:49 AM EDT [facility] Astrovirus Detection by PCR Not Detected Not Detected LAB MICROBIOLOGY METHOD 11:49 AM EDT [facility] Norovirus GI GII Detection by PCR Not Detected LAB MICROBIOLOGY METHOD 11:49 AM EDT [facility] Sapovirus Detection by PCR Not Detected Not Detected LAB MICROBIOLOGY METHOD 11:49 AM EDT [facility] Rotavirus A Detection by PCR Not Detected Not Detected LAB MICROBIOLOGY METHOD 11:49 AM EDT [facility] Stool Rectum structure / Unknown Non-blood Collection / Unknown 04/14/2025 04/14/2025 10:17 AM EDT Narrative [facility] - 04/14/2025 11:49 [...] MULTIPLEXED PCR Denice LINDO LAB MICROBIOLOGY - [facility] AL ORDERABLES Final Result [facility] [address] [place] [address], * (ABNORMAL) Vancomycin, trough Please draw before 0300 (04/13/2025 2:00 AM EDT) Only the most recent of5 resultswithin the time period is included. Vancomycin Trough 22.2(H) 10.0 - 20.0 mcg/mL LAB CHEMISTRY METHOD 04/13/2025 3:16 AM EDT [facility] Blood Venous blood specimen / Unknown Venipuncture / Unknown 04/13/2025 2:00 AM EDT 04/13/2025 2:07 AM EDT Zeferino Santoro GUICHO LAB BLOOD ORDERABLES Final Re sult [facility] [address] [place] [address], * COLONOSCOPY Anesthesia - MAC; [facility] (04/12/2025 4:17 PM EDT) Anatomical Region Laterality Modality Other 04/12/2025 3:41 PM EDT Impressions 04/12/2025 4:21 PM EDT - The entire examined colon is normal. Biopsied. - The examined portion of the ileum was normal. Recommendation: - Await pathology results. - Continue present medications. Narrative 04/12/2025 4:21 PM EDT [facility] GI Patient Name: Jia Valdez Procedure [...] appeared normal. Procedure Code(s): --- Professional --- 67335, Colonoscopy, flexible; with biopsy, single or multiple Diagnosis Code(s): --- Professional --- K52.9, Noninfective gastroenteritis and colitis, unspecified CPT copyright 2020 [employer]. All rights reserved. The codes documented in this report are preliminary and upon music copyist review may be revised to meet current compliance requirements. Pietro Mayer MD 04/12/2025 4:21:01 PM This report has been signed electronically.Pietro Mayer MD Number of Addenda: 0 Note Initiated On: 04/12/2025 3:41 PM Scope In: Scope Out: Endoscopy Department at [facility] - [address] [place] [id number] Procedure Note Pietro Mayer MD - 04/12/2025 [facility] GI Patient Name: Jai Valdez Procedure Date: 04/12/2025 3:41 PM Date [...] appeared normal. Procedure Code(s): --- Professional --- 54185, Colonoscopy, flexible; with biopsy, singleor multiple Diagnosis Code(s): --- Professional --- K52.9, Noninfective gastroenteritis and colitis, unspecified CPT copyright 2020 [employer]. All rights reserved. The codes documented in this report are preliminary and upon music copyist reviewmay be revised to meet current compliance requirements. Pietro Mayer MD 04/12/2025 4:21:01 PM This report has been signed electronically.Pietro Mayer MD Number of Addenda: 0 Note Initiated On: 04/12/2025 3:41 PM Scope In: Scope Out: Endoscopy Department at [facility] - [address] [place] [id number] IMPRESSION: - The entire examined colon is normal. Biopsied. - The examined portion of the ileum was normal. Recommendation: - Await pathology results. - Continue present medications. Pietro Mayer MD GI~PROCEDURE ORDERABLES Fin al Result * Tissue exam (04/12/2025 4:15 PM EDT) Only the most recent of3 resultswithin the time period is included. Final Diagnosis A. Colon, random biopsies: - Colonic mucosa with non-specific, mild superficial lymphoplasmacytos is. - Negative for architectural distortion, increased intraepithelial lymphocytes, basement membrane thickening, acute inflammation, epithelial surface injury, and granulomas. 04/16/2025 10:58 AM EDT [facility] at 1058 EDT Gross Description A. Colon, random biopsies: Labeled colon random . Received in formalin are seven irregular alas mucosal tissue fragments, each measuring approximately 0.2 cm in greatest dimension, which are wrapped in paper and submitted in toto in one cassette, seven pieces, multiple levels on one slide. NOREEN 04/16/2025 10:58 AM EDT [facility] Disclaimer Unless otherwise specified, all tissue is 10% NB formalin fixed and paraffin embedded. 04/16/2025 10:58 AM EDT [facility] Tissue Colon structure / Unknown 04/12/2025 4:15 PM EDT 04/13/2025 8:48 AM EDT Pietro Mayer MD LAB PATHOLOGY ORDERABLES Fi nal Result Performing Organization Address [facility]/ZIP Co de Phone Number [facility] [address] [place] [address], [place] [phone] * Thyroid stimulating hormone with reflex to free t4 and free t3 (04/12/2025 6:03 AM EDT) TSH 1.29 0.40 - 4.00 mcIU/mL LAB CHEMISTRY METHOD 04/12/2025 10:02 AM EDT [facility] Blood Blood sample taken from central line / Unknown Venipuncture / Unknown 04/12/2025 6:03 AM EDT 04/12/2025 6:19 AM EDT Awilda LINDO LAB BLOOD ORDERABLES Final Result Performing Organization Address [facility] de Phone Number [facility] [address] [place] [address], [place] [phone] * Vitamin B12 and folate (04/11/2025 12:09 PM EDT) Vitamin B-12 778 250 - 900 pcg/mL LAB CHEMISTRY METHOD 04/11/2025 4:18 PM EDT [facility] Folate 16.2 2.8 - 17.0 ng/ml LAB CHEMISTRY METHOD 04/11/2025 4:18 PM EDT [facility] Blood Venous blood specimen / Unknown Venipuncture / Unknown 04/11/2025 12:09 PM EDT 04/11/2025 12:40 PM EDT Katelin LINDO LAB BLOOD ORDERABLES Final Re sult [facility] [address] [place] [address], [place] [phone] * Tissue transglutaminase, IgA (04/11/2025 12:09 PM EDT) Pathologist [facility] Tissue Transglutaminase Ab, IgA Quant 1 <4 unit/mL LAB CHEMISTRY METHOD 04/18/2025 10:34 AM EDT [facility] Tissue Transglutaminase Ab, IgA Negative Negative LAB CHEMISTRY METHOD 04/18/2025 10:34 AM EDT [facility] Blood Venous blood specimen / Unknown Venipuncture / Unknown 04/11/2025 12:09 PM EDT 04/11/2025 12:40 PM EDT Pietro Mayer MD LAB BLOOD ORDERABLES Final Result Performing Organization Address [facility] de Phone Number [facility] [address] [place] [address], [place] [phone] * (ABNORMAL) Immunoglobulin IgA (04/11/2025 12:09 PM EDT) [facility] IgA 397(H) 61 - 348 mg/dL LAB CHEMISTRY METHOD 04/11/2025 1:21 PM EDT [facility] Blood Venous blood specimen / Unknown Venipuncture / Unknown 04/11/2025 12:09 PM EDT 04/11/2025 12:40 PM EDT Pietro Mayer MD LAB BLOOD ORDERABLES Final Result Performing Organization Address [facility]/ZIP Co de Phone Number [facility] [address] [place] [address], [place] [phone] * ED Wound Care (04/08/2025 1:13 AM EDT) Narrative Shanti Reyes MD - 04/08/2025 1:13 AM EDT GUICHO Cason 04/08/2025 1:14 AM ED Wound Care Date/Time: 04/08/2025 1:13 AM Performed by: GUICHO Cason Authorized by: Shanti Reyes MD Consent: Consent obtained: Verbal Consent given by: Patient Risks, benefits, and alternatives were discussed: yes Risks discussed: Bleeding and pain Alternatives discussed: No treatment [place] protocol: Patient identity confirmed: Verbally with patient Sedation: Sedation type: None Anesthesia: Anesthesia method: None Procedure details: Indications: open wounds Wound location: Abdomen. Dressing: Dressing: Sterile dressing-Aquacel. Wrapped with: Nonadherent, taping. Post-procedure details: Procedure completion: Tolerated Shanti Reyes MD IN CLINIC/BEDSIDE ORDERABLES Fin al Result * Lactate (04/07/2025 9:30 PM EDT) [facility] Lactate 1.1 0.4 - 2.0 mmol/L LAB CHEMISTRY METHOD 04/07/2025 10:09 PM EDT [facility] Blood Venous blood specimen / Unknown Venipuncture / Unknown 04/07/2025 9:30 PM EDT 04/07/2025 9:34 PM EDT Claribel LINDO LAB BLOOD ORDERABLES Fin al Result [facility] [address] [place] [address], [place] [phone] * (ABNORMAL) Manual differential (04/02/2025 6:44 AM EDT) Only the most recent of2 resultswithin the time period is included. [facility] Neutrophils % 87.0 % LAB HEMETOLOGY METHOD 04/02/2025 8:00 AM EDT [facility] Lymphocytes % 9.0 % LAB HEMETOLOGY METHOD 04/02/2025 8:00 AM EDT [facility] Monocytes % 0.0 % LAB HEMETOLOGY METHOD 04/02/2025 8:00 AM EDT [facility] Eosinophils % 3.0 % LAB HEMETOLOGY METHOD 04/02/2025 8:00 AM EDT [facility] Basophils % 2.0 % LAB HEMETOLOGY METHOD 04/02/2025 8:00 AM EDT [facility] Neutrophils Absolute Manual 9.40(H) 1.50 - 7.00 K/mcL LAB HEMETOLOGY METHOD 04/02/2025 8:00 AM EDT [facility] Lymphocytes Absolute 0.97(L) 1.00 - 5.00 K/[facility] LAB HEMETOLOGY METHOD 04/02/2025 8:00 AM EDT [facility] Monocytes Absolute Manual 0.00(L) 0.20 - 1.00 K/[facility] LAB HEMETOLOGY METHOD 04/02/2025 8:[address] [facility] Eosinophils Absolute Manual 0.32 0.00 - 0.50 K/mcL LAB HEMETOLOGY [facility] Basophils Absolute Manual 0.22(H) 0.00 - 0.20 K/mcL LAB HEMETOLOGY METHOD 04/02/2025 8:00 AM EDT [facility] Rbc Morphology See comment( A) Consistent with indices, Normal for [facility] LAB HEMETOLOGY METHOD 04/02/2025 8:00 AM EDT [facility] Comment:RBC: Morphology agre es with CBC Platelet Morphology - [facility] See Note(A) Normal LAB HEMETOLOGY METHOD 04/02/2025 8:00 AM EDT [facility] Comment:PLT: Normal Blood Venous blood specimen / Unknown Venipuncture / Unknown 04/02/2025 6:44 AM EDT 04/02/2025 6:58 AM EDT us Jie LINDO LAB BLOOD ORDERABLES Final R esult [facility] [address] [place] [address], [place] [phone] * (ABNORMAL) Hepatic function panel (04/01/2025 5:50 AM EDT) Only the most recent of2 resultswithin the time period is included. Total Protein 4.8(L) 6.0 - 8.0 g/dL LAB CHEMISTRY METHOD 04/01/2025 7:[address] [facility] Albumin 1.7(L) 3.2 - 5.0 g/dL LAB CHEMISTRY METHOD 04/01/2025 7:26 AM EDT [facility] Comment:Results verified by repeat testing Total Bilirubin 0.1 0.0 - 1.4 mg/dL LAB CHEMISTRY METHOD 04/01/2025 7:[address] [facility] Bilirubin, Direct <0.1 0.0 - 0.3 mg/dL LAB CHEMISTRY METHOD 04/01/2025 7:[address] [facility] Bilirubin, Indirect LAB CHEMISTRY METHOD 04/01/2025 7:[address] [facility] Comment:Unable to calculate Indirect Bilirubin. ALT (SGPT) 28 10 - 60 unit/L LAB CHEMISTRY METHOD 04/01/2025 7:[address] [facility] AST (SGOT) 14 10 - 42 unit/L LAB CHEMISTRY METHOD 04/01/2025 7:[address] [facility] Alkaline Phosphatase 117 42 - 121 unit/L LAB CHEMISTRY METHOD 04/01/2025 7:26 AM T [facility] Blood Venous blood specimen / Unknown Venipuncture / Unknown 04/01/2025 5:50 AM EDT 04/01/2025 6:30 AM EDT us Gema LINDO LAB BLOOD ORDERABLES Final R esult [facility] [address] [place] [address], * (ABNORMAL) Culture wound with gram stain (03/29/2025 7:05 PM EDT) Culture, Wound Enterobacter cloacae complex(A) SACHI 04/01/2025 9:[address] [facility] Comment: The organism value for this result has been updated. These results have been appended to the previously preliminary verified report. This is an edited result. Previous organism was Gram negative bacilli on 03/30/2025 at 1439 EDT. Culture, Wound Methicillin-Sensiti ve Staphylococcus aureus(A) SACHI 04/01/2025 9:49 AM T [facility] Comment: Negative for PBP2a - indicates susceptible to Oxacillin The organism value for this result has been updated. These results have been appended to the previously preliminary verified report. Edited result: Previously reported as Staphylococcus aureus on 03/31/2025 at 1224 EDT. Culture, Wound Streptococcus viridans group(A) SACHI 04/01/2025 9:[address] [facility] Comment: Susceptibility testing not routinely performed. If further therapeutic information is required, please consult an infectious disease specialist. The organism value for this result has been updated. These results have been appended to the previously preliminary verified report. Gram Stain Result No Epithelial cells(A) 04/01/2025 9:[address] [facility] Gram Stain Result Moderate Polymorphonuclear leukocytes(A) 04/01/2025 9:[address] [facility] Gram Stain Result Moderate Gram negative bacilli(A) 04/01/2025 9:[address] [facility] Gram Stain Result Few Gram positive cocci in pairs(A) 04/01/2025 9:[address] [facility] Swab Abdomen / Unknown Non-blood [...] aureus Trimethoprim/Sulfamethoxazo le SACHI <=10 ug/ml: Susceptible us Awilda LINDO LAB MICROBIOLOGY - GENERAL ORD ERABLES Final Result [facility] [address] [place] [address], * (ABNORMAL) RBC morphology review (03/28/2025 6:02 AM EDT) Only the most recent of2 resultswithin the time period is included. Pathologist [facility] Rbc Morphology Consistent with indices Consistent with indices, Normal for [facility] HEMETOLOGY METHOD 03/28/2025 9:38 AM EDT [facility] Platelet Morphology - WAM See Note(A) Normal LAB HEMETOLOGY METHOD 03/28/2025 9:38 AM EDT [facility] Comment:PLT: Normal Blood Venous blood specimen / Unknown Venipuncture / Unknown 03/28/2025 6:02 AM EDT 03/28/2025 7:52 AM EDT Mehnaz LINDO LAB BLOOD ORDERABLES Final Resul t Performing Organization Address [facility]/ZIP Co de Phone Number [facility] [address] [place] [address], [place] [phone] * (ABNORMAL) C-reactive protein (03/28/2025 6:02 AM EDT) Only the most recent of2 resultswithin the time period is included. [facility] C-Reactive Protein 23.60(H) <=0.50 mg/dL LAB CHEMISTRY METHOD 03/28/2025 8:29 PM EDT [facility] Comment:Results verified by repeat testing Blood Venous blood specimen / Unknown Venipuncture / Unknown 03/28/2025 6:02 AM EDT 03/28/2025 7:51 AM EDT us Mello Rome DO LAB BLOOD ORDERABLES Final Res ult Performing Organization Address City/[facility]/ZIP Co de Phone Number [facility] [address] [place] [address], [place] [phone] * (ABNORMAL) Iron and TIBC (03/26/2025 8:28 AM EDT) [facility] Iron 16(L) 40 - 150 mcg/dL LAB CHEMISTRY METHOD 03/26/2025 3:16 PM EDT [facility] TIBC 231(L) 250 - 450 mcg/dL LAB CHEMISTRY METHOD 03/26/2025 3:16 PM EDT [facility] Iron Saturation 7(L) 15 - 50 % LAB CHEMISTRY METHOD 03/26/2025 3:16 PM EDT [facility] Blood Venous blood specimen / Unknown Venipuncture / Unknown 03/26/2025 8:28 AM EDT 03/26/2025 9:07 AM EDT us Mehnaz LINDO LAB BLOOD ORDERABLES Final Resul t Performing Organization Address City/[facility]/ZIP Co de Phone Number [facility] [address] [place] [address], [place] [phone] * Ferritin (03/26/2025 8:28 AM EDT) [facility] Ferritin 86 8 - 252 ng/mL LAB CHEMISTRY METHOD 03/26/2025 3:01 PM EDT [facility] Blood Venous blood specimen / Unknown Venipuncture / Unknown 03/26/2025 8:28 AM EDT 03/26/2025 9:07 AM EDT us Mehnaz LINDO LAB BLOOD ORDERABLES Final Resul t Performing Organization Address City/[facility]/ZIP Co de Phone Number [facility] [address] [place] [address], [place] [phone] * ECG 12 lead - Procedural (No Charge) (03/24/2025 3:14 AM EDT) Only the most recent of2 resultswithin the time period is included. Ventricular Rate ECG 107 BPM GEMUSE Atrial Rate 107 BPM GEMUSE P-R Interval 126 ms GEMUSE QRS Duration 74 ms GEMUSE Q-T Interval 338 ms GEMUSE QTc 451 ms GEMUSE P Wave [place] 47 degrees GEMUSE R [place] -29 degrees GEMUSE T [place] 51 degrees GEMUSE ECG Interpretation Sinus tachycardia Possible Left atrial enlargement When compared with ECG of 22-MAR-2025 07:40, No significant change was found Confirmed [...] Staff Patient location during procedure: [place] Performed: resident/CERTIFIED NURSING ATTENDANT/CAA Performed by: Molly Contreras CRNA Authorized by: [...] Type and screen (03/23/2025 7:43 AM EDT) ABO Group O 03/23/2025 10:51 AM EDT [facility] Rh Type Positive 03/23/2025 10:51 AM EDT [facility] Antibody Screen Negative 03/23/2025 10:51 AM EDT [facility] Blood Venous blood specimen / Unknown Venipuncture / Unknown 03/23/2025 7:43 AM EDT 03/23/2025 9:46 AM EDT Dayana Frost MD LAB BLOOD BANK TEST ORD ERABLES Final Result Performing Organization Address [facility]/ZIP Co de Phone Number [facility] [address] [place] [address], [place] [phone] * Lavender tube (03/20/2025 10:54 AM EDT) Extra Tube Hold for add-ons. 03/20/2025 1:01 PM EDT [facility] Comment:Auto resulted. Blood Venous blood specimen / Unknown 03/20/2025 10:54 AM EDT 03/20/2025 11:10 AM EDT us Mello Rome DO LAB BLOOD ORDERABLES Final Res ult Performing Organization Address [facility] Co de Phone Number [facility] [address] [place] [address], [place] [phone] * EGD Anesthesia - General; [facility] END[facility]COPY (03/19/2025 11:48 AM EDT) Anatomical Region Laterality Modality Endoscopy 03/19/2025 11:1 [...] be considered. Narrative 03/19/2025 11:50 AM EDT [facility] Patient Name: Jia Valdez Procedure Date: 03/19/2025 11:19 AM Date of : 1990 Age: 34 Gender: Female Note Status: Finalized Attending MD: Patrick Garcia DO, [id number] Procedure Date No Time: 03/19/2025 Procedure: Upper [...] the physician, the nurse, the anesthesiologist, the lead ruby on rails developer and the store facility technician in the pre-procedure area in the [...] was minimal. Procedure Code(s): --- Professional --- 69558, Esophagogastroduodenoscopy, flexible, transoral; with dilation of gastric/duodenal stricture(s) (eg, balloon, bougie) 73523, 59, Esophagogastroduodenoscopy, flexible, transoral; with biopsy, single or multiple Diagnosis Code(s): --- Professional --- K31.89, Other diseases of stomach and duodenum CPT copyright 2020 [employer]. All rights reserved. The codes documented in this report are preliminary and upon music copyist review may be revised to meet current compliance requirements. PATRICK Garcia DO 03/19/2025 11:50:10 AM This report has been signed electronically.Patrick Garcia DO Number of Addenda: 0 Note Initiated On: 03/19/2025 11:19 AM Scope In: Scope Out: Endoscopy Department at [facility] - [address] [place] [phone] Procedure Note Patrick Garcia DO - 03/19/2025 [facility] Patient Name: Jia Valdez Procedure Date: 03/19/2025 11:19 AM Date of : 1990 Age: 34 Gender: Female Note Status: Finalized Attending MD: Patrick Garcia DO, [id number] Procedure Date No Time: 03/19/2025 Procedure: Upper [...] the physician, the nurse, the anesthesiologist, the lead ruby on rails developer and thetechnician in the pre-procedure area in [...] was minimal. Procedure Code(s): --- Professional --- 86868, Esophagogastroduodenoscopy, flexible, transoral; with dilation of gastric/duodenal stricture(s) (eg, balloon, bougie) 91701, 59, Esophagogastroduodenoscopy, flexible, transoral; with biopsy, single or multiple Diagnosis Code(s): --- Professional --- K31.89, Other diseases of stomach and duodenum CPT copyright 2020 [employer]. All rights reserved. The codes documented in this report are preliminary and upon music copyist reviewmay be revised to meet current compliance requirements. PATRICK Garcia DO 03/19/2025 11:50:10 AM This report has been signed electronically.Patrick Garcia DO Number of Addenda: 0 Note Initiated On: 03/19/2025 11:19 AM Scope In: Scope Out: Endoscopy Department at [facility] - [address] [place] [phone] IMPRESSION: - Normal esophagus. - Normal examined duodenum. 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 Biopsied. Dilated. Recommendation: - [facility] the [facility]. - Full liquid diet. - Await pathology results. - Oral PPI - Repeat EGD w serial dilation. Stent to remodelthe stricture vs surgical re-intervention should be considered. Result [facility] Patrick Garcia DO GI~PROCEDURE ORDERABLES Final Re sult * (ABNORMAL) Lipid panel (05/21/2023) [facility] LDL/HDL Ratio 4 0 - 4 Triglycerides 190(A) 0 - 150 mg/dL Cholesterol 196 0 - 200 mg/dL HDL 53 >=40 mg/dL LDL Cholesterol 105(A) 0 - 100 mg/dL Blood Venous blood specimen / Unknown Result [facility] Provider LAB BLOOD ORDERABLES Nicole l Result * Cervical Cancer Screening: HPV (09/28/2022) [facility] Cervical Cancer Screening: HPV abstracted, negative Result [facility] Provider HEALTH MAINTENANCE Final Result * HIV Screening (01/27/2022) [facility] HIV Screening abstracted Result [facility] Provider HEALTH MAINTENANCE Final Result * Hepatitis C Screening (01/27/2022) [facility] Hepatitis C Screening abstracted Result [facility] Terese MCKINNON HEALTH MAINTENANCE Final Result from Last 3 Months or Most Recently Relevant to Health Maintenance Additional Health Concerns Active Problems Noted Date Diagnosed Date Autogenerated Problem 04/11/2025 Autogenerated Problem 05/16/2025 Insurance [employer] MEDICARE Member Subscriber Plan / Payer (Ef fective 2022-Present) Name:IRMA, JIA Relation to Subscriber:Self Name:Mayelin Valdezen Timbo Payer ID:[id number] Group ID:[id number] Type:Not on file Address: [place] [address] [place] [phone] Advance Directives * Full Code - Confirmed (Latest Code Status on File) Date Activated Date Inactivated Comments 05/04/2025 9:42 PM 05/05/2025 4:23 PM This code status was ascertained in the following way: Code status discussion: discussion with patient To update the patient's code status, place a code status order. Do not modify or discontinue any currently active code status orders. * Full Code - Default Date Activated Date Inactivated Comments 04/10/2025 1:51 [...] currently active code status orders. 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
[2025-06-14 12:51] VITALS: BMI 34.0
--- NOTE | 2025-06-14 14:25 | HO.ANESPROP2 ---
Documented by User: Ana Paula Santa NP 06/15/25 12:17 HPI - Anesthesia Eval Consult details Narrative: 34yo F for Bilateral Sacroiliac Joint Injection and T12-L1 Interlaminar Epidural Injection Gastroparesis - TPN and IVF via PICC (Sleeve 2019. Converted to bypass 2022. Subsequent partial gastric outlet obstruction, revision of Bypass 2023. Reversal of bypass 12/2024) s/p EGD 06/14/25 at [facility] with MAC without anesthetic issue POTS - [facility] cardiology 06/2024 with 1 year f/u. 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) Attention and concentration deficit (Acute) OCD (obsessive compulsive disorder) (Acute) PTSD (post-traumatic stress disorder) (Acute) Major depressive disorder, recurrent severe without psychotic features (Acute) Migraines (Acute) POTS (postural orthostatic tachycardia syndrome) (Acute) Thoracic radiculitis (Acute) Thoracic spine pain (Acute) Sacroiliac inflammation (Acute) Sacroiliac dysfunction (Acute) Kidney stones (Acute) Ankylosing spondylitis (Acute) Past Medical History Medical History (Updated 06/15/25 @ 10:56 by Luz Byrd RN) On total parenteral nutrition PICC (peripherally inserted central catheter) in place IBS (irritable bowel syndrome) GERD (gastroesophageal reflux disease) PONV (postoperative nausea and vomiting) Back pain Gastroparesis POTS (postural orthostatic tachycardia syndrome) Thoracic radiculitis Thoracic spine pain Sacroiliac inflammation Sacroiliac dysfunction Kidney stones Ankylosing spondylitis Depression Anxiety Asthma Family History Family History Other Ankylosing spondylitis Surgical History Surgical History (Updated 06/14/25 @ 13:06 by Luz Byrd RN) Hx of hernia repair Hx of colonoscopy Hx of cholecystectomy History of esophagogastroduodenoscopy (EGD) (06/14/25) Hx of gastric bypass (12/28/22) H/O gastric sleeve (2019) Social History Social History Are you a primary rn wound care to a significant other at home: Yes (son) Do you presently have visiting nurse or other home services: No Alcohol intake: never Patient Tobacco Use Status: Never used Tobacco Use of substances other than those prescribed or required for medical reasons: No Have you been hit, kicked, punched, or otherwise hurt by someone within the past year? If so, by whom?: No Advance Directives: No (will bring dos) Advance Directives Information Provided: No Advance Directives on File: No Patient : No FDLMP: 05/27/2025 : No Meds Allergies Allergy/AdvReac Type Severity Reaction Status Date / Time infliximab (From Remicade) AdvReac Headache Verified 06/18/25 10:20 Home Medications ?Medication ?Instructions ?Recorded ?Confirmed ?Last Taken ?Type acetaminophen 500 mg tablet 500 mg PO Q6H 09/24/23 06/14/25 Unknown History albuterol sulfate 90 mcg/actuation 2 puff inhalation Q4-6H PRN 09/24/23 06/14/25 Unknown History aerosol inhaler Shortness Of Breath Or Wheezing esomeprazole magnesium 40 mg 40 mg PO BEDTIME 09/24/23 06/14/25 Unknown History capsule,delayed release metoprolol succinate 25 mg 25 mg PO BEDTIME 09/24/23 06/14/25 Unknown History tablet,extended release 24 hr norethindrone (contraceptive) 0.35 mg PO 09/24/23 05/29/25 Unknown History mg tablet aripiprazole 15 mg tablet (Abilify) 7.5 mg PO BEDTIME 06/14/25 06/14/25 Unknown History diclofenac sodium 1 % topical gel 4 g topical QID PRN Pain 06/14/25 06/14/25 Unknown History (Arthritis Pain (diclofenac)) escitalopram oxalate 20 mg tablet 20 mg PO BEDTIME 06/14/25 06/14/25 Unknown History methocarbamol 500 mg tablet 500 mg PO BID PRN Pain 06/14/25 06/14/25 Unknown History ondansetron 4 mg disintegrating 8 mg PO Q6H PRN nausea and vomiting 06/14/25 06/14/25 Unknown History tablet Exam Height,Weight and Vital Signs: Height 5 ft 3 in Weight 87.09 kg Pertinent Lab Results Pertinent Lab Results: Labs 05/2025 Sodium 133 - 145 mmol/L 139 Potassium 3.5 - 5.5 mmol/L 4.1 Chloride 96 - 110 mmol/L 104 CO2 21 - 32 mmol/L 26 Anion Gap 3 - 11 9 Glucose 70 - 100 mg/dL 76 BUN 5 - 25 mg/dL 16 Creatinine 0.50 - 1.10 mg/dL 0.71 WBC 4.8 - 10.8 K/mcL 8.6 RBC 3.80 - 4.80 M/mcL 4.00 Hemoglobin 11.5 - 16.0 g/dL 12.3 Hematocrit 35.0 - 47.0 % 38.2 MCV 79.0 - 98.0 FL 96.5 MCH 27.0 - 32.0 pcg 31.1 MCHC 32.0 - 37.0 g/dL 32.2 RDW 11.0 - 15.0 % 14.2 Platelets 130 - 400 K/mcL 321 Narrative Narrative: EKG 05/2025 NSR @ 84 Exercise Treadmill Test 08/2024 7 METS No diagnostic EKG changes for ischemia No exercise induced arrhythmias, rare isolated PVCs noted No CP during exercise, mild substernal chest pressure in recovery CRI and functional capacity below nml range for age Holter 2023 NSR with HR 63-143, avg 91 Occasional VE NO SVE No runs, no suleiman or pauses Multiple symptoms of palpitations, chest discomfort, dizziness, nausea, SOB, heart pounding were assoc with NSR Occasional PVCs were asymptomatic ECHO 2021 10:29:30 Summary The left ventricular size is normal. Left ventricular wall thickness is normal. The LV systolic function is normal. The left ventricular ejection fraction is 60-65 %. There are no definite regional wall motion abnormalities detected. Normal diastolic function. The left atrium is upper limit of normal in size. The right ventricle is normal in size and function. The right atrium is normal in size. Comparison No prior study available for comparison. Assessment and Plan Assessment Anesthesia Assessment: Chart Reviewed Documented by User: Demetrice Perkins MD 06/18/25 10:24 [facility] Past Medical History Medical History (Updated 06/15/25 @ 10:56 by Luz Byrd, RN) On total parenteral nutrition PICC (peripherally inserted central catheter) in place IBS (irritable bowel syndrome) GERD (gastroesophageal reflux disease) PONV (postoperative nausea and vomiting) Back pain Gastroparesis POTS (postural orthostatic tachycardia syndrome) Thoracic radiculitis Thoracic spine pain Sacroiliac inflammation Sacroiliac dysfunction Kidney stones Ankylosing spondylitis Depression Anxiety Asthma Family History Family History Other Ankylosing spondylitis Family history of problems with anesthesia: No Surgical History Surgical History (Updated 06/14/25 @ 13:06 by Luz Byrd, GRISELDA) Hx of hernia repair Hx of colonoscopy Hx of cholecystectomy History of esophagogastroduodenoscopy (EGD) (06/14/25) Hx of gastric bypass (12/28/22) H/O gastric sleeve (2019) History of Problems with Anesthesia: No Social History Social History Are you a primary rn wound care to a significant other at home: Yes (son) Do you presently have visiting nurse or other home services: No Alcohol intake: never Patient Tobacco Use Status: Never used Tobacco Use of substances other than those prescribed or required for medical reasons: No Have you been hit, kicked, punched, or otherwise hurt by someone within the past year? If so, by whom?: No Advance Directives: No (will bring dos) Advance Directives Information Provided: No Advance Directives on File: No Patient : No FDLMP: 05/27/2025 : No Meds Allergies Allergy/AdvReac Type Severity Reaction Status Date / Time infliximab (From Remicade) AdvReac Headache Verified 06/18/25 10:20 Home Medications ?Medication ?Instructions ?Recorded ?Confirmed ?Last Taken ?Type acetaminophen 500 mg tablet 500 mg PO Q6H 09/24/23 06/14/25 Unknown History albuterol sulfate 90 mcg/actuation 2 puff inhalation Q4-6H PRN 09/24/23 06/14/25 Unknown History aerosol inhaler Shortness Of Breath Or Wheezing esomeprazole magnesium 40 mg 40 mg PO BEDTIME 09/24/23 06/14/25 Unknown History capsule,delayed release metoprolol succinate 25 mg 25 mg PO BEDTIME 09/24/23 06/14/25 Unknown History tablet,extended release 24 hr norethindrone (contraceptive) 0.35 mg PO 09/24/23 05/29/25 Unknown History mg tablet aripiprazole 15 mg tablet (Abilify) 7.5 mg PO BEDTIME 06/14/25 06/14/25 Unknown History diclofenac sodium 1 % topical gel 4 g topical QID PRN Pain 06/14/25 06/14/25 Unknown History (Arthritis Pain (diclofenac)) escitalopram oxalate 20 mg tablet 20 mg PO BEDTIME 06/14/25 06/14/25 Unknown History methocarbamol 500 mg tablet 500 mg PO BID PRN Pain 06/14/25 06/14/25 Unknown History ondansetron 4 mg disintegrating 8 mg PO Q6H PRN nausea and vomiting 06/14/25 06/14/25 Unknown History tablet Exam Airway Mallampati Class: II (caps through out top front) TM Dist: >3cm Neck ROM: Full Heart: rrr Lungs: cta Assessment and Plan Assessment Anesthesia Assessment: Anesthesia Plan Discussed Final Anesthetic Review Family History of Problems with Anesthesia: No History of Problems with Anesthesia: No NPO: Yes ASA Class: II Final Preanesthetic Review: No Changes in Pt Med Stat, Meds/Allgs Chart Reviewed and Consent Obtained/Reviewed Patient Risk: Low Procedure Risk: Low Anesthetic Plan Anesthetic Plan: MAC: Disposition: Standard PACU
--- NOTE | ~2025-06-18 | FL_ITS ---
EXAMINATION: FLUOROSCOPY GUIDANCE FOR NEEDLE PLACEMENT CLINICAL INFORMATION: Procedural guidance COMPARISON: Lumbar spine and sacroiliac joint x-rays September 2024 TECHNIQUE: Fluoroscopy guidance provided for pain management procedure. 6 submitted fluoroscopic images. FINDINGS: Initial image demonstrates needle placement and contrast injection over the proximal midline lumbar spine. Later images demonstrate needle placement and contrast injection over the left followed by right pelvis. See procedure note for detailed findings. FLUOROSCOPY TIME: 48 seconds DOSE AREA PRODUCT: 3824 mGy-cm2 (microgray-meter squared) FL/FL guidance in OR IMPRESSION: Fluoroscopy guidance for pain management procedures. Electronically signed by: Pavithra Perez MD 06/18/2025 03:40 PM [facility] [place]
[2025-06-18 10:13] VITALS: BMI 33.8
[2025-06-18 10:18] VITALS: BP 95/62; PULSE 88; RESP 18; TEMP 36.2; O2SAT 97
[2025-06-18 10:26] LABS: UPreg QC Valid YES
[2025-06-18] MEDS: Lactated Ringers 1,000 ML 100 ML IVCONT (10:35)
--- NOTE | 2025-06-18 10:50 | W.PM.OPN ---
Operative Note Operative Note Date of Service: 06/18/25 Narrative: Procedure performed: T12-L1 epidural steroidal injection Preop diagnosis: Thoracic radiculitis Postop diagnosis: The same Anesthesia: Back After informed consent was obtained patient was brought into the procedure room and placed in the prone position procedure table. Skin over thoracolumbar junction was prepped and draped in the usual sterile manner. T12-L1 interlaminar space was visualized utilizing fluoroscopy. After skin was anesthetized with lidocaine, 3.5 in 20 gauge Tuohy needle was introduced percutaneously and advanced slowly advanced into the epidural space utilizing loss of resistance technique. Once in place, needle placement was verified utilizing 3 cc of Omnipaque contrast solution. Good epidural spread was visualized. After negative aspiration for blood or cerebrospinal fluid, total volume of 5 cc containing 40 mg of triamcinolone and normal saline solution was injected. Procedure performed: Bilateral sacroiliac joint injection Preop diagnosis: SI joint mediated pain, sacroiliitis Postop diagnosis: The same Anesthesia: Mac Skin over lumbar sacral area was prepped and draped in the usual sterile manner. The inferior portion of the right sacroiliac joint was visualized utilizing fluoroscopy. 3.5 in 22 gauge spinal needle was introduced percutaneously and advanced into the joint. Needle placement was verified utilizing 0.5 cc of Omnipaque contrast solution. 2.5 cc of therapeutic solution containing 40 mg of triamcinolone and 0.5% Marcaine was injected after negative aspiration for blood. The C-arm was obliqued about 30? in the contralateral direction an area just medial the proximal portion of the sacroiliac joint was visualized. 3.5 in 22 gauge spinal needle was introduced percutaneously and advanced to enter the area. Once in place, needle placement was identified utilizing 1 cc of Omnipaque contrast solution. Total volume of 2.5 cc containing 40 mg of triamcinolone and 0.5% Marcaine was injected to block the lateral branches at the sacroiliac ligament. The identical procedure was repeated on the left side Radiation exposure was documented in the chart.
--- NOTE | 2025-06-18 11:03 | MHC.SHP ---
Pre-Procedural Eval Section A - 24 Hr Update-Section A only Date of Service: 06/18/25 The patient is an INPATIENT: No Section B - Complete if H&P > 30 days Chief Complaint: sacroiliitis,thoracic spin,radiculopathy Details of Present Illness: Chronic thoracolumbar and lower back pain with history of ankylosing spondylitis Relevant Family History (Specify if Yes): No Relevant Social History: None Present Medications: see Short Stay Collaborative assessment Medical History: Significant History (Ankylosing spondylitis) History of Previous Operations: No relevant previous surgery Allergies: Allergies Allergy/AdvReac Type Severity Reaction Status Date / Time infliximab (From Remicade) AdvReac Headache Verified 06/18/25 10:20 Review of Systems Sugical H&P ROS: Negative: Constitution, Cardiovascular, Respiratory, Neurological, Psychiatric, Hem-Onc, Allergic/Immunologic, Gastrointestinal, Genitourinary, Musculoskeletal, Integumentary, Endocrine and Eyes/Ears/Nose/Throat Exam Surgical H&P Exam: Normal: HEENT, Normal: Heart, Normal: Lungs, Normal: Extremities, Normal: Abdomen, Normal: Skin and Normal: Neurological Plan Diagnosis/Plan: Unchanged I have reviewed the history and physical and performed a pertinent physical examination on my patient. No changes have occurred unless specified. Time Spent With Patient Time: Total time managing care of this patient today ____ minutes.
[2025-06-18 11:32] VITALS: BP 93/61; PULSE 77; RESP 16; TEMP 37.7; O2SAT 94
[2025-06-18 11:47] VITALS: BP 96/62; PULSE 74; RESP 15; TEMP 37.4; O2SAT 97
== END 2025-06-18 12:37 | disposition home or self-care (01) ==
PROVIDERS: Nurse Practitioner; PCP Internal Medicine; Visit Provider Physical Medicine & Rehabilitation
PROC: (CPT 62321; principal; 2025-06-18 11:30)
DX: M54.14 Radiculopathy, thoracic region (principal); M54.6 Pain in thoracic spine; M46.1 Sacroiliitis, not elsewhere classified; M53.3 Sacrococcygeal disorders, not elsewhere classified; J45.909 Unspecified asthma, uncomplicated; K58.9 Irritable bowel syndrome, unspecified; Z79.51 Long term (current) use of inhaled steroids; Z79.899 Other long term (current) drug therapy; Z79.85 Long-term (current) use of injectable non-insulin antidiabetic drugs; Z98.84 Bariatric surgery status
CPT/HCPCS: 62321; 27096; 81025; J0665; J2003; J2250; J2405; J2704; J3010; J3301; Q9967

== ENCOUNTER → 2025-06-18 09:55 | Outpatient (BNV) | payer OTHER, SELFPAY | PROVIDERS: PCP Internal Medicine; Visit Provider Physical Medicine & Rehabilitation | DX: M54.15 Radiculopathy, thoracolumbar region (principal); M46.1 Sacroiliitis, not elsewhere classified | CPT/HCPCS: 27096; 62321 ==